=== PATIENT | female | born 1960 | race Caucasian/White ===

== ENCOUNTER 2017-08-17 13:00 | Outpatient (RCR) | payer MEDICARE, OTHER, SELFPAY ==
--- NOTE | 2017-05-12 16:48 | HP.PTEVAL_ITS ---
Patient's Visit Information GIUSEPPE XAVIER is a 56 year old F referred to Physical Therapy by Oswaldo Desir with a diagnosis of LEFT SHOULDER IMINGEMENT/LEFT SHOULDER PAIN. Date of Evaluation: 05/12/17 Physical Therapist: Jose J Maldonado PT, - Visit Plan Frequency: 2x /Week Duration: 4 Weeks Plan: postural ex's,RTC ex's ,MODALITIES - Subjective Subjective: This 56 y/o female presents physical therapy with impingement left shoulder for 2 months. Intially,DR tried predisone. Recommended PT and did x- rays. Location shoulder referres lateral deltoid. Described as sharp pain. Symptoms worse with above 90 degrees with ADL'S and housework tasks , lifting.Symptoms better with rest.Symptoms affect sleeping with pain at night.Pain affects pain ability with job demnads and housework tasks. Denies parathesia /tingling. 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 SOCIAL: - Pain Left Shoulder Pain Intensity (Out of 10): 8 Pain Intensity Range: 10 Comment: movement - Objective POSTURE: mild foward posture. NEURO: denies parathesia/tingling,neuro inact. PALAPTION: mild tender AC. AROM: flexion 120 flexion,abduction 105 degrees,ER 85 degrees,IR 70 degrres with pain all planes. MMT: RTC 4-/5 MILD PAIN , deltoid 4-/5 anterior ,lateral 3+/5 pain. SCAPULAR-HUMERAL: 1:1. CAPSULAR RESTRICTION:mild accessory - Special Tests L Shoulder External Rotation Lag Test - RC Tear: Negative L Shoulder Supine Impingement Test - RC Tear: Negative L Shoulder Lift Off Test - Subscapular Tear: Negative L Shoulder Drop Sign - IS Test: Negative L Shoulder Empty Can - SS: Positive L Shoulder Neer - Impingement: Positive L Shoulder Carbajal Huan - Impingement: Positive L Shoulder Shrug Sign - OA/Adhesive Capsulitis: Negative - Goals Goal 1:: Independant with HEP Goal Time Frame: 2-4 Weeks Goal 2:: Decrease shoulder pain by 50% or greater to improve function with ADL'S Goal Time Frame: 2-4 Weeks Goal 3:: Improve ROM shoulder WFL left compared to right for ADL'S above 90 degrees and housework tasks Goal Time Frame: 2-4 Weeks Goal 4:: Patient increase strength of RTC and deltoid 4/5 to improve function and ADL'S Goal Time Frame: 2-4 Weeks Goal 5:: Patient improve ablity to perform ADL'S and housework tasks with min limitations Goal Time Frame: 2-4 Weeks - Rehabilitation Potential Physical Therapy Diagnosis: This 56 y/o female presents to physical therapy with impigement left shoulder. with pain weakness ,impairs function and ADL'S above 90 degrees Rehabilitation Potential: Good - Anticipated Interventions Patient/Client Instruction: Educate patient on: Condition, Plan of Care For the Purpose of:: To decrease pain, To increase ROM, To improve muscle performance and motor function, To improve ability to perform ADL's, To increase tolerance to activity/condition/position, To improve ability of physical actions for home/community/work/leisure, To improve health of tissue, To decrease soft tissue restriction, To prevent re-injury, To improve ability to perform tasks related to life management Therapeutic Exercise to Include: Strength training, Postural training, Scapular Strength/Stabilization Comment: RTC For the Purpose of:: To decrease pain, To increase ROM, To improve muscle performance and motor function, To increase tolerance to activity/condition/ position, To improve ability of physical actions for home/community/work/leisure , To improve health of tissue, To decrease soft tissue restriction, To increase flexibility/ROM, To improve health and function, To prevent re-injury, To improve ability to perform tasks related to life management IF ES: Yes Cryotherapy (ice pack, ice massage): Yes Thermo therapy (hot pack): Yes Ultrasound (thermal/non thermal): Yes For the Purpose of:: To decrease pain, To improve nutrient delivery to tissue, To increase oxygenation perfusion, To improve health of tissue, To decrease soft tissue restriction Thank you for the opportunity to evaluate your patient. For Medicare and Medicare HMO plans, please review the plan of care and approve it. It will need to be FAXED BACK to us at [phone] for Medicare purposes. Please let me know if there are questions or concerns regarding this plan of care. Physician Signature: Date:
--- NOTE | 2017-06-03 08:15 | HP.PTEVAL2 ---
Patient's Visit Information GIUSEPPE XAVIER is a 56 year old F referred to Physical Therapy by Oswaldo Desir with a diagnosis of OA left knee,pes anserine bursitus. Date of Evaluation: 06/03/17 Physical Therapist: Jose J Maldonado PT, - Visit Plan Frequency: 2x /Week Duration: 4 Weeks Plan: PRE 'S QUADS/HAMS/HIP,ROM NUSTEP,MODALITIES PRN - Subjective Subjective: This 56 y/o female presents to physical therapy with left knee pain. Patient has had left knee pain more than 2 years but progesssively worse past several months. Pain located medial -lateral knee described ache. Symptoms worse walking ,squatting,kneeling,standing. Symptoms affect ability ADL'S and housework tasks. Denies parathesia/tingling. Sleeping okay at night. Patient has [facility] with [facility] failure. SOCAIL: . VOCATION: [employer] - Pain Left Knee Intensity: 5 Pain Intensity Range: 10 Right Knee Intensity: 5 Pain Intensity Range: 10 - Objective Objective: POSTURE:mild knee valgus. NEURO: inact. PALAPTION: medial/lateral joint line tenderness. GAIT: ambulates with decrease stance time with waddle gait reciprocal pattern. MMT: quads/hams/hip flexion 4-/5,abd 3+/5 ankle 4-/5. AROM: 5-130 degrees supine knee flexion. FLEXBLITY: hams min tight - Special Tests David - Meniscus: Positive Apley - Meniscus: Negative Dustin - ACL: Negative Anterior Drawer - ACL: Negative Posterior Drawer - PCL: Negative Posterior Sag - PCL: Negative Valgus - MCL: Negative Varus - LCL: Negative Patellar Apprehension - PFS: Positive Patellar Grind - PFS: Positive - Goals Goal 1:: Independant with HEP Goal Time Frame: 2-4 Weeks Goal 2:: Improve gait 75% with improve mary and stance time. Goal Time Frame: 2-4 Weeks Goal 3:: Increase strength BLE quads/hams/hip 3+/5 to improve function with walking and standing Goal Time Frame: 2-4 Weeks Goal 4:: Patient improve ablity to walk ,stand for ADL'S and housework tasks with min limiations Goal Time Frame: 2-4 Weeks Goal 5:: Ascend/descend 12 steps with alternating stairs Goal Time Frame: 2-4 Weeks - Rehabilitation Potential Physical Therapy Diagnosis: This patient has left knee pain with weakness thus impairs ADL's and housework tasks with walking and standing ,stairs thus benifit from skilled PT Rehabilitation Potential: Good - Anticipated Interventions Patient/Client Instruction: Educate patient on: Condition, Plan of Care For the Purpose of:: To decrease pain, To increase ROM, To improve muscle performance and motor function, To improve ability to perform ADL's, To increase tolerance to activity/condition/position, To improve ability of physical actions for home/community/work/leisure, To improve health of tissue, To decrease soft tissue restriction, To increase flexibility/ROM, To improve ability to perform tasks related to life management Therapeutic Exercise to Include: Strength training, Postural training, Flexibilty training, Active ROM For the Purpose of:: To decrease pain, To increase ROM, To improve muscle performance and motor function, To improve ability to perform ADL's, To improve performance and independence with ADL's, To improve ability of physical actions for home/community/work/leisure, To improve gait and locomotor functions, To improve health of tissue, To decrease soft tissue restriction, To increase flexibility/ROM TENS: Yes Cryotherapy (ice pack, ice massage): Yes Thermo therapy (hot pack): Yes Ultrasound (thermal/non thermal): Yes For the Purpose of:: To decrease pain, To improve nutrient delivery to tissue, To increase oxygenation perfusion, To improve health of tissue, To decrease soft tissue restriction Thank you for the opportunity to evaluate your patient. For Medicare and Medicare HMO plans, please review the plan of care and approve it. It will need to be FAXED BACK to us at [phone] for Medicare purposes. Please let me know if there are questions or concerns regarding this plan of care. Physician Signature: Date:
--- NOTE | 2017-06-03 08:31 | HP.PTDCSUM ---
HP - PT D/C Summary It has been my pleasure to treat GIUSEPPE XAVIER under orders from Oswaldo Desir, for the diagnosis of LEFT SHOULDER IMINGEMENT/LEFT SHOULDER PAIN for a total of 3 visit(s). Discharge Date: 06/03/17 Please see the following information for a summary of their discharge status. - Subjective Subjective: Doing good with left shoulder ..maybe some overhead activaities - Pain Left Shoulder Pain Intensity (Out of 10): 0 - Overall Improvement % Improvement: 90 - Objective Objective/Function: AROM : shoulder flexion/abd 140 degrees ,ER 90 ,IR 80 degrees. MMT: RTC4/5,DELTOID 4-/5 - Goals Goal 1:: Independant with HEP Goal Progress: Goal Met Goal 2:: Decrease shoulder pain by 50% or greater to improve function with ADL'S Goal Progress: Goal Met Goal 3:: Improve ROM shoulder WFL left compared to right for ADL'S above 90 degrees and housework tasks Goal Progress: Goal Met Goal 4:: Patient increase strength of RTC and deltoid 4/5 to improve function and ADL'S Goal Progress: Goal Met Goal 5:: Patient improve ablity to perform ADL'S and housework tasks with min limitations Goal Progress: Goal Met - Plan Plan: D/C TO HEP - D/C Information Discharge Comments: HEP If there are questions or concerns regarding this patient's physical therapy, please feel free to call me at [phone]. Thank you for the referral of this patient. Sincerely, Jose J Maldonado, PT,
--- NOTE | 2017-07-01 12:26 | HP.PTRE(2)_ITS ---
Oswaldo Desir, It has been my pleasure to treat GIUSEPPE XAVIER over the last 7 visits for OA left knee,pes anserine bursitus. Please see the progress note below for an update on the physical therapy plan of care! Subjective: Getting stronger ,has been c/o kenneth pain right than left. Difficulty with stairs and squatting Objective/Function/Assessment: POSTURE:MILD FOWARD POSTURE,HIPS/KNEES FLEXED. GAIT: AMBULATES WITH HIPS/KNEES FLEXED. AROM: 0-130 knee flexion bilateeral. MMT: quads 4-/5,VMO 4-/5,HAMS 4/5,hip flexion 4-/5,hip abd 3+/5. STAIRS: ascend /descend 12steps one step at a time Plan Plan: cont with poc 2x/week for 3weeks Goals - Goals Goal 1:: Independant with HEP Goal Time Frame: 2-4 Weeks Goal Progress: Progressing Goal 2:: Improve gait 75% with improve mary and stance time. Goal Time Frame: 2-4 Weeks Goal Progress: Progressing Goal 3:: Increase strength BLE quads/hams/hip 4-/5 to improve function with walking and standing Goal Time Frame: 2-4 Weeks Goal Progress: prior goal met Goal 4:: Patient improve ablity to walk ,stand for ADL'S and housework tasks with min limiations Goal Time Frame: 2-4 Weeks Goal Progress: Progressing Goal 5:: Ascend/descend 12 steps with alternating stairs Goal Time Frame: 2-4 Weeks Goal Progress: Progressing Anticipated Interventions Patient/Client Instruction: Educate patient on: Condition, Plan of Care For the Purpose of:: To decrease pain, To increase ROM, To improve muscle performance and motor function, To improve ability to perform ADL's, To increase tolerance to activity/condition/position, To improve ability of physical actions for home/community/work/leisure, To improve health of tissue, To decrease soft tissue restriction, To increase flexibility/ROM, To improve ability to perform tasks related to life management Therapeutic Exercise to Include: Strength training, Postural training, Flexibilty training, Active ROM For the Purpose of:: To decrease pain, To increase ROM, To improve muscle performance and motor function, To improve ability to perform ADL's, To improve performance and independence with ADL's, To improve ability of physical actions for home/community/work/leisure, To improve gait and locomotor functions, To improve health of tissue, To decrease soft tissue restriction, To increase flexibility/ROM TENS: Yes Cryotherapy (ice pack, ice massage): Yes Thermo therapy (hot pack): Yes Ultrasound (thermal/non thermal): Yes For the Purpose of:: To decrease pain, To improve nutrient delivery to tissue, To increase oxygenation perfusion, To improve health of tissue, To decrease soft tissue restriction Please do not hesitate to contact me at [phone] by phone or Fax: if you have questions or concerns regarding this new plan of care! Sincerely, Jose J Maldonado, PT,
--- NOTE | 2017-08-17 13:27 | HP.PTDS(2)_ITS ---
HP - PT D/C Summary (2) It has been my pleasure to treat GIUSEPPE XAVIER under orders from Oswaldo Desir, for the diagnosis of OA left knee,pes anserine bursitus for a total of 5 visit (s). Discharge Date: 08/17/17 Please see the following information for a summary of their discharge status. - Subjective Subjective: Doing good ..no pain. Back to gualberto ADL'S - Overall Improvement % Improvement: 90 - Objective Objective/Function/Assessment: GAIT: reciprocal pattern ,mild hips/knee flexed. EDEMA: mild in legs from dialysis. AROM : 0-130 DEGREES supine knee flexion. MMT: quads/hams 4/5,hip 4-/5. STAIRS: alternating - Goals Patient Goals: Improve Mobility, Improve Function, Alleviate Pain, Walk Normal, Improve ROM, Sleep Normal Goal 1:: Independant with HEP Goal Progress: Goal Met Goal 2:: Improve gait 75% with improve mary and stance time. Goal Progress: Goal Met Goal 3:: Increase strength BLE quads/hams/hip 4-/5 to improve function with walking and standing Goal Progress: Goal Met Goal 4:: Patient improve ablity to walk ,stand for ADL'S and housework tasks with min limiations Goal Progress: Goal Met Goal 5:: Ascend/descend 12 steps with alternating stairs Goal Progress: Goal Met - Plan Plan: d/c to HEP - D/C Information Discharge Comments: HEP If there are questions or concerns regarding this patient's physical therapy, please feel free to call me at [phone]. Thank you for the referral of this patient. Sincerely, Jose J Maldonado, PT,
--- NOTE | 2017-08-19 16:37 | HP.PTDCS(2) ---
HP - PT D/C Summary (2) It has been my pleasure to treat GIUSEPPE XAVIER under orders from Oswaldo Desir, for the diagnosis of OA left knee,pes anserine bursitus for a total of 15 visit(s). Discharge Date: 08/17/17 Please see the following information for a summary of their discharge status. - Subjective Subjective: Doing good ..no pain. Back to normal ADL'S - Overall Improvement % Improvement: 90 - Objective Objective/Function/Assessment: GAIT: reciprocal pattern ,mild hips/knee flexed. EDEMA: mild in legs from dialysis. AROM : 0-130 DEGREES supine knee flexion. MMT: quads/hams 4/5,hip 4-/5. STAIRS: alternating - Goals Patient Goals: Improve Mobility, Improve Function, Alleviate Pain, Walk Normal, Improve ROM, Sleep Normal Goal 1:: Independant with HEP Goal Progress: Goal Met Goal 2:: Improve gait 75% with improve mary and stance time. Goal Progress: Goal Met Goal 3:: Increase strength BLE quads/hams/hip 4-/5 to improve function with walking and standing Goal Progress: Goal Met Goal 4:: Patient improve ablity to walk ,stand for ADL'S and housework tasks with min limiations Goal Progress: Goal Met Goal 5:: Ascend/descend 12 steps with alternating stairs Goal Progress: Goal Met - Plan Plan: d/c to HEP - D/C Information Discharge Comments: HEP If there are questions or concerns regarding this patient's physical therapy, please feel free to call me at [phone]. Thank you for the referral of this patient. Sincerely, Jose J Maldonado, PT,
== END 2017-08-17 19:00 | disposition home or self-care (01) ==
LOC: PT 13:00
PROVIDERS: Family Provider Family Medicine; PCP Family Medicine; Visit Provider Family Medicine
DX: M75.42 Impingement syndrome of left shoulder (principal); M25.512 Pain in left shoulder
CPT/HCPCS: 97014; 97035; 97110; 97162; 97530; G0283; G8985; G8986

== ENCOUNTER → 2017-10-10 15:24 | Outpatient (CLI) | payer MEDICARE, BC, SELFPAY ==
--- NOTE | 2017-10-10 15:28 | VDUE_ITS ---
Reason For Study: Swelling Rt Hand Right Proximal Left Proximal Right jugular vein is spontaneous, widely Left jugular vein is spontaneous, widely patent, phasic, with no intraluminal patent, phasic, with no intraluminal echogenicity noted. echogenicity noted. Right subclavian vein is spontaneous, widely patent, phasic, with no intraluminal echogenicity noted. Right Lower Arm Right radial vein is compressible. Right ulnar vein is compressible. Right Arm Right axillary vein is spontaneous, patent, phasic, competent, compressible and demonstrates augmentation. Right brachial vein is compressible. Rt CephV below the elbow is dilated and non compressible consistent with acute SVT; compressible above elbow. Right basilic vein is compressible. < Interpretation Summary There is no evidence of right upper extremity deep vein thrombosis. Superficial thrombophlebitis right forearm cephalic vein. Normal flow patterns right basilic vein. Normal flow patterns left internal jugular vein. Ordering Physician: Oswaldo Desir Referring Physician: Oswaldo Desir Performed By: Whit Braxton, SEBAS, RVT
== END ==
PROVIDERS: Family Provider Family Medicine; PCP Family Medicine; Visit Provider Family Medicine
DX: M79.89 Other specified soft tissue disorders (principal)
CPT/HCPCS: 93971

== ENCOUNTER 2018-01-17 21:24 | Observation (INO) | payer MEDICARE, BC, SELFPAY ==
[2018-01-17 21:35] VITALS: BP 104/96; PULSE 79; RESP 16; TEMP 36.8; O2SAT 97
[2018-01-17 21:36] VITALS: PULSE 78
--- NOTE | 2018-01-17 21:46 | PCM.HP.STD ---
Problem List (1) Light-headedness Status: Acute (2) Polycystic kidney disease Status: Acute (3) End stage renal failure on dialysis Status: Acute (4) Hypotension Status: Acute History of Present Illness Date of Admission: 01/17/18 Chief Complaint: Lightheadedness ?one and a half weeks. The patient is a 57 year old F with a significant history of polycystic kidney disease status post bilateral nephrectomy on dialysis (Tuesday, Tuesday and Tuesday) who presents with progressively worsening lightheadedness of one and a half weeks duration. Associated with her symptoms is shakiness. Patient went to emergency department at [facility] and was transferred here. Notably, her systolic blood pressure was in the 70s and 80s; and a diastolic blood pressure was in the 40s. Her blood pressure improved with a normal saline bolus while at emergency department. She reported improvement in her lightheadedness after she has received fluids. Notably patient has a strong family history of polycystic kidney disease. Her father from aneurysm which she attributes to polycystic kidney disease. Her brother also have polycystic kidney disease. She has some cysts on her liver that she attributes to her polycystic kidney disease. She used to have high blood pressure but upon starting dialysis she developed low blood pressure. However she reports that her blood pressure today is lower than her baseline. She is on a kidney transplant list. Past Medical History Allergies Penicillins Allergy (Verified 09/01/16 07:43) Rash codeine Adverse Reaction (Verified 09/01/16 07:43) Nausea Home Medications: Ambulatory Orders Medication Instructions Recorded Allopurinol [Zyloprim] 100 mg PO MOWEFR 09/01/16 Ergocalciferol [Vitamin D] 50,000 unit PO QMONTH 09/01/16 Folic Acid/Vit Bcomp,C [Renal 0.8 mg PO DAILY 09/01/16 Vitamin Tablet] Ondansetron HCl [Zofran] 4 mg PO PRN PRN 09/01/16 Oxycodone [Oxyir] 5 - 10 mg PO Q4H PRN PRN 09/01/16 Calcium Acetate mg PO 01/17/18 Surgical History: hysterectomy, - - Bilateral nephrectomy secondary to polycystic kidney disease Psychiatric History: No pertinent psych hx Lives: With Family Smoking Status: Never smoker Tobacco Use: Non-smoker Alcohol: None Review of Systems Constitutional: Denies: Chills, Fever, Weight Change HEENT: Denies: Head Aches, Sinus Congestion, Sinus Drainage Cardiovascular: Reports: Light Headedness. Denies: Chest Pain, Palpitations Respiratory: Denies: Cough, Shortness of breath at rest, Sputum production Gastrointestinal: Reports: Nausea - Resolved at this time Genitourinary: Reports: - - Anuria Musculoskeletal: Denies: Joint Pain, Joint Tenderness Skin: Denies: Rash, Wounds Neurological: Denies: Numbness, Tingling, Focal weakness Psychiatric: Denies: Anxiety, Depression, Homicidal Ideations, Suicidal Ideations Hematologic/ Lymphatic: Denies: Easy Bruising, Easy Bleeding VTE Information - Inpt Only VTE Present on Admission: No VTE Mechan Device Prophylaxis: None VTE Pharm Prophylaxis ordered?: Yes Patient Problems: Active and Suspected Problems Light-headedness (Acute) Polycystic kidney disease (Acute) End stage renal failure on dialysis (Acute) Hypotension (Acute) - Physical Exam General: Alert, Oriented x3, Cooperative HEENT: Atraumatic, PERRLA, EOMI, Normocephalic Neck: Supple, No JVD, Negative Carotid Bruits Lungs: Clear to auscultation, Normal air movement Cardiovascular: Regular rate, No murmurs Abdomen: Bowel Sounds Present, Soft, Non Tender Extremities: - - Dialysis shunt in left antecubital areabruit and thrill present. Skin: No rashes, No breakdown Musculoskeletal: No Tenderness to Palpation of Joints or Extremities Lymphatic: No Cervical, Supraclavicular, or Inguinal Adenopathy Neurological: Cranial nerves II-XII grossly intact Psych/Mental Status: Normal Affect, Appropriate Assessment/Plan All Active Problems Light-headedness (Acute) Polycystic kidney disease (Acute) End stage renal failure on dialysis (Acute) Hypotension (Acute) The patient is a 57 year old F with a significant history of polycystic kidney disease status post bilateral nephrectomy on dialysis (Tuesday and Tuesday) who presents with progressively worsening lightheadedness and hypotension Lightheadedness and hypotension This may be due to excessive fluid taken off on dialysis Received normal saline bolus at outside hospital ED Gentle hydration with normal saline at 75 ML's per hour Orthostatic vitals now and in a.m. PT and OT to work with patient. Polycystic kidney disease with end-stage renal disease Renal diet Nephrocaps continued PhosLo continued. Her to verify dose. Nephrology consult for management of end-stage renal disease DVT prophylaxis Subcutaneous heparin Code Visit OBSV E&M: 47920 Initial observation care L3
[2018-01-17 21:50] VITALS: BMI 32.0
[2018-01-17 22:03] VITALS: BMI 32.0
[2018-01-17 22:15] VITALS: BP 102/60; BP 107/66; BP 108/68; PULSE 69; PULSE 70; PULSE 77
[2018-01-17] MEDS: Heparin Injection (Vial) 5,000 UNIT/ML VIAL 5000 UNIT SC (23:09)
[2018-01-17] MEDS: 0.9% NaCl Peripheral Flush Adult/Peds IV (23:09)
[2018-01-17] MEDS: 0.9% Normal Saline 1,000 ML 75 ML IV (23:10)
[2018-01-17 23:21] VITALS: PULSE 63
[2018-01-18] VITALS (9 sets, daily range): BP systolic 90–113; BP diastolic 56–67; PULSE 59–78; RESP 16–18; TEMP 36.4–36.6; O2SAT 97–100
[2018-01-18] MEDS: Heparin Injection (Vial) 5,000 UNIT/ML VIAL 5000 UNIT SC (06:43)
[2018-01-18] MEDS: Allopurinol 100 MG Tablet PO (08:45)
[2018-01-18] MEDS: Calcium Acetate 667 MG Capsule 1334 MG PO ×2 (10:00→11:57)
[2018-01-18] MEDS: Folic Acid/Vitamin B Comp W-C 1 Capsule 1 CAP PO (10:01)
--- NOTE | 2018-01-18 11:25 | PCM.CONS.R ---
Problem List (1) End stage renal failure on dialysis Status: Chronic Consultation - Renal PCP/ Referring MD: Requesting physician: [] Primary care physician: Oswaldo Desir - History of Present Illness History of Present Illness: The patient is a 57 year old F PMH of ESRD on MWF ( Patient goes to [facility] for HD. Dr. Lau is the gas transfer operator). 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 Patient presented to ED at [facility] for feeling dizzy and weak that started yesterday. In ED,BP was low at 70/40. Patient received 750 cc IV NS at the ED. BP improved to 90/50 and patient was sent to [facility] for observation. Patient was kept on IVF here in the hospital at 75 cc/hour. Patient said she is feeling better but also feels congested in the sinuses area and in her chest. She feels that her arms and legs are puffy ROS: 12 system review is negative except for what mentioned in HPI[] - Allergies Allergies: Allergies Penicillins Allergy (Verified 09/01/16 07:43) Rash codeine Adverse Reaction (Verified 09/01/16 07:43) Nausea - Current Medications Current Medications: Current Medications Allopurinol (Zyloprim) 100 mg PO MoWeFr@0800 [facility] Last Admin: 01/18/18 08:45 Dose: 100 mg Bisacodyl (Dulcolax) 5 mg PO DAILY PRN PRN PRN Reason: Constipation Calcium Acetate (Phoslo Gel Cap) 1,334 mg PO TIDCM [facility] Last Admin: 01/18/18 10:00 Dose: 1,334 mg Heparin Sodium (Porcine) (Heparin Na) 5,000 unit SC Q8 [facility] Last Admin: 01/18/18 06:43 Dose: 5,000 unit Magnesium Hydroxide (Milk Of Magnesia) 30 ml PO DAILY PRN PRN Reason: Constipation Multivit/Ca Carb/B Cmplx/FA/Prenat (Nephrocaps, Renaphro) 1 capsule PO DAILY [facility] Last Admin: 01/18/18 10:01 Dose: 1 capsule Ondansetron HCl (Zofran Odt) 4 mg PO Q4H PRN PRN PRN Reason: NAUSEA Oxycodone HCl (Oxyir) 5 - 10 mg PO Q4H PRN PRN PRN Reason: PAIN Sodium Chloride () 5 - 30 ml IV UD PRN PRN Reason: SALINE FLUSH Last Admin: 01/17/18 23:09 Dose: 10 ml - Past Medical History Past Medical History (Chronic Problems): Chronic Problems End stage renal failure on dialysis (Chronic) - Past Surgical History Surgical History: hysterectomy, - - Bilateral nephrectomy secondary to polycystic kidney disease - Social History Smoking Status: Never smoker Alcohol: None Patient Problems: Active and Suspected Problems Light-headedness (Acute) Polycystic kidney disease (Acute) Hypotension (Acute) - Physical Exam General: Alert, Oriented x3 HEENT: Atraumatic Oral: Moist Mucosa Neck: Supple, No JVD, Negative Carotid Bruits Lungs: Clear to auscultation, Normal air movement, No rhonchi Cardiovascular: Regular rate, Regular Rhythm, Normal S1, Normal S2 Abdomen: Bowel Sounds Present, Soft, Non Tender Extremities: No clubbing, No cyanosis, No edema Musculoskeletal: No Tenderness to Palpation of Joints or Extremities Lymphatic: No Cervical, Supraclavicular, or Inguinal Adenopathy Neurological: Cranial nerves II-XII grossly intact, Neuro grossly intact Psych/Mental Status: Normal Affect Vital Signs Temp Pulse Resp BP Pulse Ox 97.8 F 70 16 113/63 100 01/18/18 08:55 01/18/18 11:02 01/18/18 08:55 01/18/18 08:55 01/18/18 08:55 Oxygen Delivery Method Room Air Weight: 74.4 kg Body Mass Index (BMI) 32.0 Orthostatic Vital Signs Start: 01/17/18 21:51 Freq: 0600 Status: Active Protocol: Activity Type Activity Date Activity User E-Sign Co-Sign Detail Recorded Client Recorded Date Recorded By Document 01/18/18 06:38 CAD [id number] 01/18/18 06:42 CAD 01/18/18 06:38 Orthostatic Vitals Standing -Blood Pressure (90/60-120/80) 111/62 -Extremity Use Right Arm -Pulse Rate (60-100) 72 Sitting -Blood Pressure (90/60-120/80) 101/63 -Extremity Use Right Arm -Pulse Rate (60-100) 65 Lying -Blood Pressure (90/60-120/80) 90/56 L -Extremity Use Right Arm -Pulse Rate (60-100) 65 Intake and Output for Last 24 Hours 01/16/18 01/17/18 01/18/18 23:59 23:59 23:59 Intake Total 802 / 802 Balance 802 / 802 Assessment/Plan All Active Problems Light-headedness (Acute) Polycystic kidney disease (Acute) Hypotension (Acute) 1- ESRD on MWF Will arrange for HD today for 3 hours, 1K for 1st hout and then 2 K. UF 1L d/c IVF 2- Hypotension. Patient has borderline hypotension but worsened yesterday. BP improved with IVF Will check Echocardiogram. Monitor BP as HD today with 1 L UF. 3- BMD: continue phoslo with the same dose at home Renal team will continue to follow D/W Dr. Marylu KHAN MD
[2018-01-18] MEDS: Heparin 10,000 UNITS/10 ML Vial 2500 UNITS IV (12:15)
[2018-01-18 12:38] LABS: Hematocrit 32.5 % (37-47); Hemoglobin 10.3 g/dl (12.0-15.0); Mean Corp Hgb Conc 31.7 g/gl (32-36); Mean Corpuscular Hgb 31.8 pg (27.0-32.0); Mean Corpuscular Volume 100.3 fL (81-99); Mean Platelet Vol. 9.6 fl (6.2-12.0); Platelet Count 219 K/mm3 (150-450); RBC Distribution Width CV 16.6 % (11.6-14.6); RBC Distribution Width SD 60.3 fl (35.1-43.9); Red Blood Count 3.24 M/mm3 (4.2-5.4); White Blood Count 6.3 K/mm3 (4.4-11.0)
[2018-01-18 12:43] LABS: Scan Indicated on CBC? Y/N NO
[2018-01-18 13:12] LABS: Anion Gap 13 (5-15); BUN 47 mg/dL (7-18); BUN/Creat Ratio 4.4 RATIO (10-20); Calcium,Total 7.6 mg/dL (8.5-10.1); Chloride 103 mmol/L (98-107); EST Glomerular Filtration Rate 4 mL/min (>60); Est Glom Filt Rate - Afr Amer 5 mL/min (>60); Estimated Creatinine Clearance 4.27 ml/min; Glucose 101 mg/dL (74-106); Potassium 5.1 mmol/L (3.5-5.1); Sodium Level 141 mmol/L (136-145)
--- NOTE | 2018-01-18 13:34 | PCM.DC ---
- Discharge Diagnoses Current Active Problems: Current Active and Chronic Problems Light-headedness, Dizziness secondary to Hypotension, Orthostasis possible secondary to Hemodialysis Hypotension, secondary to suspected Hemodialysis ESRD on HD secondary to Polycystic kidney disease Gout Obesity You will use the following diet at home:: Renal (restricted protein/sodium) Your food should be the consistency of: Regular Your liquids should be the consistency of: Regular/Thin Discharge Activity: - - Avoid aggressive activity until re-evaluation per your Sewer System Supervisor and Primary Care Physician. Maintain appropriate oral hydration. May resume sexual activity in: No Restrictions Weight Bearing Status: Weight bearing as tolerated Call your doctor if you observe: Fever of 101 or Higher, Inability to urinate, Inability to have a bowel movement, Shortness of breath, Dizziness, Fainting spells, Uncontrolled pain Instructions: ED Hypotension Orthostatic Additional Instructions: Please maintain appropriate hydration. Following dialysis assure you change positions, i.e. sitting to standing slowly and stop if you feel dizzy or lightheaded. During the admission you were slowly hydrated, maintained on telemetry without events, normal heart ultrasound and unremarkable cardiac enzymes. Allergies/Adverse Reactions: Allergies Penicillins Allergy (Verified 09/01/16 07:43) Rash codeine Adverse Reaction (Verified 09/01/16 07:43) Nausea Medications to take at Discharge Allopurinol [Zyloprim] 100 mg PO MOWEFR 09/01/16 Ergocalciferol [Vitamin D] 50,000 unit PO QMONTH 09/01/16 Folic Acid/Vit Bcomp,C [Renal Vitamin Tablet] 0.8 mg PO DAILY 09/01/16 Ondansetron HCl [Zofran] 4 mg PO PRN PRN 09/01/16 Oxycodone [Oxyir] 5 - 10 mg PO Q4H PRN PRN 09/01/16 Calcium Acetate mg PO 01/17/18 Primary Care Physician: Oswaldo Desir MD [Primary Care Provider] - Please follow up with your Primary Care Physician in: Follow-up within 3-5 days to review admission. Test Results: Test results from this visit will be discussed in further detail at your follow-up appointment, if applicable. Please Follow Up With: Arielle Sy MD When: Follow-up for routine HD on Tuesday with re-evaluation per Sewer System Supervisor. Proposed Discharge Date: 01/18/18
--- NOTE | 2018-01-18 13:40 | PCM.DC.SUM ---
Discharge Date and Diagnosis - Problem List Patient Problems: Active and Suspected Problems Light-headedness (Acute) Polycystic kidney disease (Acute) Hypotension (Acute) Date of Admission: 01/17/18 Date of Discharge: 01/18/18 - Primary Discharge Diagnosis Active and Suspected Problems Light-headedness, Dizziness secondary to Hypotension, Orthostasis possible secondary to Hemodialysis Hypotension, secondary to suspected Hemodialysis ESRD on HD secondary to Polycystic kidney disease Gout Obesity - Secondary Discharge Diagnosis Chronic Problems End stage renal failure on dialysis (Chronic) Hospital Course and Treatment Imaging Results: 01/18/18 11:03 Echo Complete [ECHO] Routine Nephrology Dr. Sy Operations: None Procedures: Dialysis Summary of Care Provided: The patient is a 57 y/o F w/ PMHx: ESRD on HD secondary to Polycystic kidney disease s/p BL nephrectomy, Gout, Obesity, AOCD who presented to the [facility] ED on 01/17/18 with history of vacation this past week with dialysis arranged out of town and onset over the last several days of light-headedness, dizziness worsened after dialysis and with position changes. In the ED orthstatic notable, thus patient admitted, maintained on telemetry, cardiac enzyme unremarkable, ECHO obtained to be cautious and unremarkable appearing with normal function and normal appearing valves, thus presentation felt secondary to hypotension, orthostasis with Nephrology consultation and reduction of HD parameters. Patient cleared for discharge to home per Nephrology following HD. Patient denied any recurrent lightheadedness or dizziness since admission and noted improvement. DAY OF DISCHARGE PROGRESS NOTE: Subjective: Patient without acute event overnight per self and nursing report. Patient denies fever, chills, nausea, emesis, abdominal pain, chest pain or dyspnea. Denies any further lightheadedness or dizziness. Patient agreeable to discharge to home given echocardiogram unremarkable, no telemetry events, cardiac enzymes normal, nephrology evaluation with decision for reduction in HD parameters with improved symptoms. Patient will be discharged with follow-up with primary care physician within 3-5 days in addition to plant physiologist at HD on Tuesday. Objective: T 97.8, heart rate 64, BP 113/63, respiratory rate 16, and a percent room air. Physical Examination: General: awake, alert, oriented x 3 and cooperative, seated upright in the bed, NAD. Skin: normal color, turgor, no icterus, cyanosis. HEENT: AT/NC, EOMI, PERRLA, MMM. Lungs: CTA bilaterally, moderate effort, mild decrease BL bases, no rales, ronchi or wheezing; Heart: Regular rate and rhythm; no gallop, rub audible. Abdomen: soft, obese, NTTP, ND, normal BS. Extremities: no cyanosis, clubbing, LUE fistula w/ +thrill, HD ongoing. Neurological: patient awake, alert, oriented x 3; cognitive function appears intact upon questioning,; pupils equally reactive to light and accomodation; cranial nerves II-XII grossly normal, moving all 4 extremities, strength mildly globally decreased, HD ongoing currently.l Psychiatric: affect appears normal, no acute evidence of depressive or anxiety feelings. Assessment and Plan: Please see hospital summary above. Discharge Activity: - - Avoid aggressive activity until re-evaluation per your Smoking Tobacco Packer Hand and Primary Care Physician. Maintain appropriate oral hydration. May resume sexual activity in: No Restrictions Weight Bearing Status: Weight bearing as tolerated Call your doctor if you observe: Fever of 101 or Higher, Inability to urinate, Inability to have a bowel movement, Shortness of breath, Dizziness, Fainting spells, Uncontrolled pain Home Medications: Medications to take at Discharge Allopurinol [Zyloprim] 100 mg PO MOWEFR 09/01/16 Ergocalciferol [Vitamin D] 50,000 unit PO QMONTH 09/01/16 Folic Acid/Vit Bcomp,C [Renal Vitamin Tablet] 0.8 mg PO DAILY 09/01/16 Ondansetron HCl [Zofran] 4 mg PO PRN PRN 09/01/16 Oxycodone [Oxyir] 5 - 10 mg PO Q4H PRN PRN 09/01/16 Calcium Acetate mg PO 01/17/18 Primary Care Physician: Oswaldo Desir MD [Primary Care Provider] - Please follow up with your Primary Care Physician in: Follow-up within 3-5 days to review admission. Please Follow Up With: Arielle Sy MD When: Follow-up for routine HD on Tuesday with re-evaluation per Smoking Tobacco Packer Hand. Patient Instructions: ED Hypotension Orthostatic Disposition: Home Minutes spent on discharge:: 20 Patient Condition:: Fair Medical Necessity - Tobacco Use Smoking Status: Never smoker Tobacco Use: Non-smoker Meaningful Use Info Meaningful Use Diagnoses (Choose all that apply): None applicable Code Visit OBSV E&M: 12321 Observation care discharge
--- NOTE | 2018-01-18 16:00 | DIALYSIS ---
Hemodialysis completed as ordered. -1200ml off. tolerated well. stable t/o. Hemostasis obtained. dressing applied. report to fidel
== END 2018-01-18 13:37 | disposition home or self-care (01) ==
PROVIDERS: Hospitalist; Admitting Provider Internal Medicine; Family Provider Family Medicine; PCP Family Medicine; Visit Provider Family Medicine
DX: I95.3 Hypotension of hemodialysis (principal); N18.6 End stage renal disease; Z99.2 Dependence on renal dialysis; Q61.3 Polycystic kidney, unspecified; M10.9 Gout, unspecified; Z90.5 Acquired absence of kidney; E66.9 Obesity, unspecified; Z68.32 Body mass index [BMI] 32.0-32.9, adult; Z71.3 Dietary counseling and surveillance; I49.9 Cardiac arrhythmia, unspecified; R53.1 Weakness; R42 Dizziness and giddiness; I95.9 Hypotension, unspecified
CPT/HCPCS: 80048; 84484; 85027; 90937; 93306; 96361; 96372; 96374; 97162; 99218; J7030; A4216; G0257; G0378; G0379

== ENCOUNTER 2018-08-03 12:25 | Inpatient (IN) | payer MEDICARE, OTHER, SELFPAY ==
[2018-08-03] VITALS (9 sets, daily range): BP systolic 114–146; BP diastolic 65–74; PULSE 68–91; RESP 13–18; TEMP 35.9–36.6; O2SAT 96–98; BMI 30.2; BMI 29.9
--- NOTE | 2018-08-03 12:43 | EKG12_ITS ---
Test Reason : WEAKNESS Blood Pressure : / mmHG Vent. Rate : 077 BPM Atrial Rate : 077 BPM P-R Int : 156 ms QRS Dur : 086 ms QT Int : 392 ms P-R-T Axes : 011 071 -16 degrees QTc Int : 443 ms Normal sinus rhythm Abnormal ECG Confirmed by LAMBERTO YING, DAHLIA ([id number]), editor in chief PO BOWMAN ([id number]) on 08/07/2018 2:03:09 PM Referred By: Lillian Valero Confirmed By:DAHLIA ORANTES MD
--- NOTE | 2018-08-03 12:52 | RAD_ITS ---
STUDY: X-RAY CHEST REASON FOR EXAM: Female, 57 years old. WEAKNESS, NUMBNESS AND TINGLING IN LEGS; DIALYSIS 1 DAY AGO TECHNIQUE: PA and lateral views of the chest. COMPARISON: January 22, 2016 FINDINGS: Right-sided dual lumen central line is been removed. The lungs are clear and expanded. There is no demonstrated pleural abnormality. Normal size heart. Normal mediastinum and laxmi. Normal visualized pulmonary arteries. There is atherosclerotic tortuosity of the aortic arch and descending thoracic aorta. Mild broad levoscoliosis of the thoracolumbar spine noted. This may be positional. Normal visualized ribs, clavicles, and shoulders. There is no demonstrated abnormality of the visualized soft tissue structures of the upper abdomen. Multiple surgical clips project in the upper abdomen. RAD/Chest PA and Lateral IMPRESSION: No acute intrathoracic process. Electronically Signed: Constance Taylor MD at 13:53 EST , Service support ,
[2018-08-03] MEDS: Ondansetron 4 MG/2 ML Vial IV (14:35)
[2018-08-03 14:48] LABS: Anion Gap 6 (5-15); BUN 45 mg/dL (7-18); BUN/Creat Ratio 5.5 RATIO (10-20); Calcium,Total 8.6 mg/dL (8.5-10.1); Chloride 99 mmol/L (98-107); Creatinine, Serum 8.13 mg/dL (0.55-1.02); EST Glomerular Filtration Rate 5 mL/min (>60); Est Glom Filt Rate - Afr Amer 7 mL/min (>60); Estimated Creatinine Clearance 5.62 ml/min; Glucose 84 mg/dL (74-106); Potassium 6.9 mmol/L (3.5-5.1); Sodium Level 136 mmol/L (136-145)
--- NOTE | 2018-08-03 14:49 | ED.RN ---
lab called critical of k of 6.9 and creatinine 8.13
[2018-08-03 15:01] LABS: Partial Thromboplast Time 31.7 Seconds (24.1-36.2); Prothrombin Time (Protime)PT. 13.3 SECONDS (11.7-14.9)
[2018-08-03 15:13] LABS: Absolute Lymphocyte Count 1.77 X10^3/ul (0.83-4.51); Absolute Neutrophil Count 8.8 X10^3/uL (2.0-7.7); Basophil# 0.08 X10^3/uL; Basophil% 0.7 % (0-1); Eosinophil# 0.14 X10^3/uL; Eosinophils% 1.2 % (0-5); Hematocrit 36.5 % (37-47); Hemoglobin 11.3 g/dl (12.0-15.0); Lymphocyte # 1.77 X10^3/ul (4.0); Lymphocyte % 15.5 % (19-41); Mean Corpuscular Volume 100.3 fL (81-99); Mean Platelet Vol. 9.5 fl (6.2-12.0); Monocyte# 0.66 X10^3/uL; Monocyte% 5.8 % (0-10); Neutrophil # 8.78 X10^3/uL (2.7-7.7); Neutrophil % 76.6 % (47-70); POSITIVE COUNT NO; POSITIVE DIFFERENTIAL NO; POSITIVE MORPHOLOGY NO; Platelet Count 356 K/mm3 (150-450); RBC Distribution Width CV 15.3 % (11.6-14.6); RBC Distribution Width SD 55.8 fl (35.1-43.9); Red Blood Count 3.64 M/mm3 (4.2-5.4); White Blood Count 11.5 K/mm3 (4.4-11.0)
--- NOTE | 2018-08-03 15:43 | ED.DCSUM_ITS ---
- ER Visit Summary Date of Service: 08/03/18 Chief Complaint: Numbness and tingling History of Present Illness: The patient is a 57 F who presents with numbness and tingling in her bilateral legs. The patient has a history of end-stage renal disease and is on hemodialysis Tuesday, Tuesday, and Tuesday. She is compliant with treatment. Yesterday she started to have some tingling in her legs and it became worse today. She also feels dizzy and weak and she has been very restless at night. She never had these symptoms before. She also reports a history of polycystic kidney disease and is a former smoker. Physical Examination: Afebrile and vital signs unremarkable. Patient is alert and oriented. Depressed mood and flat affect. Heart regular rate and rhythm. Lungs clear. Abdomen soft and nontender. Left upper extremity fistula noted with a bruit and thrill. Cranial nerves grossly intact. Normal strength and sensation except for paresthesias in her legs. Legs are nontender. Test Results: EKG showed sinus rhythm at a rate of 77. Hemoglobin 11. 3 and white count 11.5. Potassium 6.9, BUN 45, creatinine 8.13. Coags normal. Troponin normal. Chest x-ray unremarkable. Emergency Department Course and Treatment: Patient was monitored. She has paresthesias. No focal symptoms or findings to suggest stroke. No headache or neck pain. No fevers. Workup was unremarkable and reflected her chronic kidney disease except for a potassium of 6.9. She was treated with calcium, dextrose, and insulin. Hospitalist was contacted for inpatient care. Treatment Plan: As above Disposition: Admission Impression: 1. Paresthesias 2. Hyperkalemia This note was generated with [employer] dictation software. It may contain incorrect words, spelling, and punctuation that were not noted in review of the chart prior to signing ED Disposition - Plan for ED Patient: Referrals: Oswaldo Desir MD [Primary Care Provider] -
[2018-08-03] MEDS: Calcium Gluconate 1 GM/10 ML Vial IV (16:12)
[2018-08-03] MEDS: Dextrose 50%-Water 25 GM/50 ML DISP.SYRIN IV (16:19)
--- NOTE | 2018-08-03 16:26 | PCM.HP.STD ---
Problem List (1) Polycystic kidney disease Status: Chronic (2) End stage renal failure on dialysis Status: Chronic History of Present Illness Date of Admission: 08/03/18 Chief Complaint: Numbness and tingling lower extremities. The patient is a 57 year old F who presents emergency room due to numbness and tingling of the lower extremities ongoing for 2 days. She reports associated head fogginess and generalized weakness. She denies unilateral weakness, vision or speech changes. She states she has had similar symptoms in the remote past related to electrolyte imbalances. She denies chest pain, palpitations, shortness of breath. She has a past medical history of end-stage renal disease on hemodialysis secondary to a cystic kidney disease status post bilateral nephrectomy, hypertension. Past Medical History Past Medical History (Chronic Problems): Chronic Problems Polycystic kidney disease (Chronic) End stage renal failure on dialysis (Chronic) Allergies Penicillins Allergy (Verified 08/03/18 12:28) Rash codeine Adverse Reaction (Verified 08/03/18 12:28) Nausea Home Medications: Ambulatory Orders Medication Instructions Recorded Allopurinol [Zyloprim] 100 mg PO MOWEFR 09/01/16 Ergocalciferol [Vitamin D] 50,000 unit PO QMONTH 09/01/16 Folic Acid/Vit B Complex and C 0.8 mg PO DAILY 09/01/16 [Renal Vitamin Tablet] Ondansetron HCl [Zofran] 4 mg PO PRN PRN 09/01/16 Oxycodone [Oxyir] 5 - 10 mg PO Q4H PRN PRN 09/01/16 Calcium Acetate mg PO 01/17/18 Acetaminophen [Tylenol Extra 1,000 mg PO PRN PRN 08/03/18 Strength] Ascorbic Acid [C-1000] 1,000 mg PO DAILY 08/03/18 Surgical History: - - Bilateral nephrectomy secondary to polycystic kidney disease, section, cholecystectomy. 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 Paternal History Items: - - Polycystic kidney disease Review of Systems Constitutional: Denies: Chills, Fever, Weight Change HEENT: Denies: Head Aches, Sinus Congestion, Sinus Drainage Cardiovascular: Reports: Light Headedness. Denies: Chest Pain, Chest Tightness, Edema, Palpitations, Syncope Respiratory: Denies: Cough, Shortness of breath at rest, Sputum production Gastrointestinal: Denies: Abdominal Pain, Nausea, Vomiting Genitourinary: Denies: Dysuria Musculoskeletal: Denies: Joint Pain, Joint Tenderness Skin: Denies: Rash, Wounds Neurological: Reports: - - Numbness, tingling bilateral lower extremities.. Denies: Blurred vision, Double vision, Change in Speech, Slurred speech, Confusion, Focal weakness Psychiatric: Denies: Anxiety, Depression, Homicidal Ideations, Suicidal Ideations Hematologic/ Lymphatic: Denies: Easy Bruising, Easy Bleeding VTE Information - Inpt Only VTE Present on Admission: No VTE Mechan Device Prophylaxis: None VTE Pharm Prophylaxis ordered?: Yes - Physical Exam General: Alert, Oriented x3, Cooperative, - - Appears fatigued. HEENT: Atraumatic, PERRLA, EOMI, Normocephalic Oral: Dry Mucosa Neck: Supple, No JVD, Negative Carotid Bruits Lungs: Clear to auscultation, Normal air movement Cardiovascular: Regular rate, Regular Rhythm, Normal S1, Normal S2, No murmurs Abdomen: Bowel Sounds Present, Soft, Non Tender, Non-Distended Extremities: No clubbing, No cyanosis, No edema, Capillary Refill Less than 3 Seconds Skin: No rashes, No breakdown Musculoskeletal: No Tenderness to Palpation of Joints or Extremities Neurological: Cranial nerves II-XII grossly intact, Neuro grossly intact Psych/Mental Status: Normal Affect, Appropriate Vital Signs Temp Pulse Resp BP Pulse Ox 97.8 F 68 16 122/72 H 97 08/03/18 12:26 08/03/18 15:28 08/03/18 15:28 08/03/18 15:28 08/03/18 13:30 Oxygen Delivery Method Room Air Weight: 154 lb 15.759 oz Body Mass Index (BMI) 30.2 Laboratory Tests Past 24 Hrs 08/03/18 08/03/18 08/03/18 14:10 14:10 14:10 WBC 11.5 H RBC 3.64 L Hgb 11.3 L Hct 36.5 L MCV 100.3 H MCH 31.0 MCHC 31.0 L RDW 15.3 H RDW Differential 55.8 H Plt Count 356 MPV 9.5 Immature Gran % (Auto) 0.200 Neut % (Auto) 76.6 H Lymph % (Auto) 15.5 L [place] % (Auto) 5.8 Eos % (Auto) 1.2 Baso % (Auto) 0.7 Absolute Neuts (auto) 8.8 H Absolute Lymphs (auto) 1.77 Total Counted Not Reportable PT 13.3 INR 1.0 APTT 31.7 Sodium 136 Potassium 6.9 H* Chloride 99 Carbon Dioxide 31.0 Anion Gap 6 BUN 45 H Creatinine 8.13 H* Estim Creat Clear Calc 5.62 Est GFR (MDRD) Af Amer 7 L Est GFR (MDRD) Non-Af 5 L BUN/Creatinine Ratio 5.5 L Glucose 84 Calcium 8.6 Troponin I < 0.015 Assessment/Plan 1. Hyperkalemia in the context of end-stage renal disease on hemodialysis secondary to polycystic kidney disease status post bilateral nephrectomy in 2016- Follows with Dr. Lau. Has not missed scheduled dialysis. Plan for immediate dialysis this evening. Patient given calcium gluconate, insulin and Kayexalate in ER. No EKG changes. Trend BMP. 2. Paresthesias-suspected secondary to #1. No focal deficits, vision or speech changes. Continue to monitor. 3. Hypertension-per history. Not on regimen. 4. Chronic macrocytic anemia-stable, trend CBC. DVT prophylaxis-Heparin sc This patient was seen by SONIDO Herman under the supervision of Dr. Valero.
[2018-08-03 18:19] LABS: Anion Gap 12 (5-15); BUN 46 mg/dL (7-18); BUN/Creat Ratio 5.4 RATIO (10-20); Chloride 100 mmol/L (98-107); EST Glomerular Filtration Rate 5 mL/min (>60); Est Glom Filt Rate - Afr Amer 6 mL/min (>60); Estimated Creatinine Clearance 5.33 ml/min; Glucose 55 mg/dL (74-106); Magnesium 2.8 mg/dL (1.6-2.6); Phosphorus 5.9 mg/dL (2.5-4.9); Potassium 6.4 mmol/L (3.5-5.1); Sodium Level 140 mmol/L (136-145)
[2018-08-03 18:20] LABS: Creatinine, Serum 8.56 mg/dL (0.55-1.02)
[2018-08-03] MEDS: Calcium Acetate 667 MG Capsule 2668 MG PO (18:29)
--- NOTE | 2018-08-03 20:36 | DIALYSIS ---
HD x 2 hours complete. Tolerated tx well. Ran on 1k bath. Used upper left arm fistula. [place] removed post tx. Hemostasis achieved. Report was given to KIARA Mackey.
[2018-08-03] MEDS: Heparin Injection (Vial) 5,000 UNIT/ML VIAL 5000 UNIT SC (21:42)
[2018-08-03 22:21] LABS: Anion Gap 7 (5-15); BUN 22 mg/dL (7-18); BUN/Creat Ratio 4.6 RATIO (10-20); Calcium,Total 8.8 mg/dL (8.5-10.1); Chloride 98 mmol/L (98-107); Creatinine, Serum 4.77 mg/dL (0.55-1.02); EST Glomerular Filtration Rate 10 mL/min (>60); Est Glom Filt Rate - Afr Amer 12 mL/min (>60); Estimated Creatinine Clearance 9.57 ml/min; Glucose 104 mg/dL (74-106); Potassium 5.3 mmol/L (3.5-5.1); Sodium Level 134 mmol/L (136-145)
[2018-08-04] VITALS (12 sets, daily range): BP systolic 96–168; BP diastolic 56–85; PULSE 74–99; RESP 16–20; TEMP 35.6–36.8; O2SAT 96–98
[2018-08-04 02:36] LABS: Anion Gap 7 (5-15); BUN 25 mg/dL (7-18); BUN/Creat Ratio 4.6 RATIO (10-20); Calcium,Total 8.7 mg/dL (8.5-10.1); Chloride 99 mmol/L (98-107); Creatinine, Serum 5.42 mg/dL (0.55-1.02); EST Glomerular Filtration Rate 9 mL/min (>60); Est Glom Filt Rate - Afr Amer 11 mL/min (>60); Estimated Creatinine Clearance 8.42 ml/min; Glucose 89 mg/dL (74-106); Potassium 5.7 mmol/L (3.5-5.1); Sodium Level 136 mmol/L (136-145)
[2018-08-04 07:47] LABS: Anion Gap 6 (5-15); BUN 27 mg/dL (7-18); BUN/Creat Ratio 4.5 RATIO (10-20); Calcium,Total 8.7 mg/dL (8.5-10.1); Chloride 99 mmol/L (98-107); EST Glomerular Filtration Rate 8 mL/min (>60); Est Glom Filt Rate - Afr Amer 9 mL/min (>60); Estimated Creatinine Clearance 7.61 ml/min; Glucose 83 mg/dL (74-106); Potassium 6.6 mmol/L (3.5-5.1); Sodium Level 134 mmol/L (136-145)
--- NOTE | 2018-08-04 08:00 | EKG12_ITS ---
Test Reason : HYPERKALEMIA Blood Pressure : / mmHG Vent. Rate : 076 BPM Atrial Rate : 076 BPM P-R Int : 148 ms QRS Dur : 080 ms QT Int : 404 ms P-R-T Axes : 048 -17 087 degrees QTc Int : 454 ms Normal sinus rhythm Normal ECG When compared with ECG of 03-AUG-2018 12:50, MANUAL COMPARISON REQUIRED, DATA IS UNCONFIRMED Confirmed by LAMBERTO YING, DAHLIA ([id number]), news assignment editor PO BOWMAN ([id number]) on 08/08/2018 1:17:38 PM Referred By: Lillian Valero Confirmed By:DAHLIA ORANTES MD
[2018-08-04] MEDS: Folic Acid/Vitamin B Comp W-C 1 Capsule 1 CAP PO (09:10)
[2018-08-04] MEDS: Calcium Acetate 667 MG Capsule 2668 MG PO ×2 (09:10→17:03)
[2018-08-04] MEDS: Allopurinol 100 MG Tablet PO (09:11)
[2018-08-04] MEDS: Heparin Injection (Vial) 5,000 UNIT/ML VIAL 5000 UNIT SC ×2 (09:30→21:51)
[2018-08-04] MEDS: oxyCODONE 5 MG Tablet PO ×2 (09:35→21:54)
--- NOTE | 2018-08-04 11:15 | CASEMGMT ---
KIARA QUIROS assessment: Face to Face with patient for initial transition planning/care coordination assessment. KIARA QUIROS introduced self and role at [facility], pt voices understanding and consents to assessment at this time. Pt is sitting up in bed in no distress at this time. Pt is A/Ox4 at this time and answers all questions appropriately at this time. Care providers, pharmacy, and demographics verified at this time. PCP: Oswaldo Desir Specialists: Nelson/patricio Lau Preferred Pharmacy: [facility] Insurance: [facility] A/B, [facility] Prescription Benefit: [facility], pt states just switched to the [facility] and unsure of in-network pharmacies. This KIARA QUIROS provided pt with list of in-network pharmacies at this time from [facility] website. Living Will/HPOA: Pt states has HPOA but not LW and pt is aware at that HPOA is not on file at [facility] at this time. Pt states that her , Charli Fox, is HPOA. LNOK: Charli Fox, ; Isaac Fox, son Living Arrangements: Pt states lives in 2 story home with and states no concerns at home at this time. Pt states is independent with ADL's. Transportation: Pt states drives self and states no transportation concerns at this time. DME/HHC: Pt states has grab bars in shower and states no need for any further DME at this time. Pt states no hx of SNF or HHC in the past but pt states was on PD for awhile and is supposed to be starting HD at home in the near future. Pt is currently on HD at [facility] at 0550. Pt states no concerns with going home at time of discharge. Pt is on disability. Pt states does not smoke or drink ETOH. Pt states no further concerns/needs at this time. CM to follow for any further discharge planning/needs. Advised pt to ask for CM if any further questions/concerns/needs arise, voices understanding. Plan: Home w/ resumption of OP dialysis. [place] KIARA QUIROS
--- NOTE | 2018-08-04 12:24 | PCM.CONS.R ---
Problem List (1) End stage renal failure on dialysis Status: Chronic Consultation - Renal 08/04/18 PCP/ Referring MD: Requesting physician: Dr Villegas Primary care physician: Oswaldo Desir MD Reason for Consultation:: ESRD - History of Present Illness History of Present Illness: The patient is a 57 year old F well known to us. ESRD on HD MWF schedule. admitted with LE weakness and found to have severe hyperkalemia. was emergently dialyzed yesterday, is hyperkalemic again today. currently does not offer any complaints right now - Allergies Allergies: Allergies Penicillins Allergy (Verified 08/03/18 12:28) Rash codeine Adverse Reaction (Verified 08/03/18 12:28) Nausea - Current Medications Current Medications: Current Medications Al Hydroxide/Mg Hydroxide (Mylanta Ii) 30 ml PO Q6H PRN PRN PRN Reason: Gastric burning Allopurinol (Zyloprim) 100 mg PO MoWeFr@0800 [facility] Last Admin: 08/04/18 09:11 Dose: 100 mg Calcium Acetate (Phoslo Gel Cap) 2,668 mg PO TIDCM [facility] Last Admin: 08/04/18 09:10 Dose: 2,668 mg Heparin Sodium (Porcine) (Heparin Na) 5,000 unit SC Q12 [facility] Last Admin: 08/04/18 09:30 Dose: 5,000 unit Hydralazine HCl (Apresoline Iv) 10 mg IV Q4H PRN PRN PRN Reason: SBP > 160 Sodium Chloride () 1,000 mls @ 50 mls/hr IV .Q20H [facility] Last Admin: 08/03/18 14:24 Dose: Not Given Magnesium Hydroxide (Milk Of Magnesia) 30 ml PO DAILY PRN PRN Reason: Constipation Multivit/Ca Carb/B Cmplx/FA/Prenat (Nephrocaps, [facility]) [facility] Admin: 08/04/18 09:10 Dose: 1 capsule Ondansetron HCl (Zofran) 4 mg IV Q8H PRN PRN PRN Reason: NAUSEA/VOMITING Oxycodone HCl (Oxyir) 5 - 10 mg PO Q4H PRN PRN PRN Reason: PAIN Last Admin: 08/04/18 09:35 Dose: 5 mg - Past Medical History Past Medical History (Chronic Problems): Chronic Problems Polycystic kidney disease (Chronic) End stage renal failure on dialysis (Chronic) - Past Surgical History Surgical History: - - Bilateral nephrectomy secondary to polycystic kidney disease, section, cholecystectomy. - Social History Smoking Status: Former smoker Alcohol: None Drugs: None - Family History Maternal History Items: - - Denies maternal cardiac history or other significant medical history. Paternal History Items: - - Polycystic kidney disease Review of Systems Constitutional: Denies: Chills, Fever, Weight Change HEENT: Denies: Head Aches, Sinus Congestion, Sinus Drainage Cardiovascular: Denies: Chest Pain, Palpitations Respiratory: Denies: Cough, Shortness of breath at rest, Sputum production Gastrointestinal: Denies: Abdominal Pain, Nausea, Vomiting Genitourinary: Denies: Dysuria Musculoskeletal: Denies: Joint Pain, Joint Tenderness Skin: Denies: Rash, Wounds Neurological: Denies: Numbness, Tingling, Focal weakness Psychiatric: Denies: Anxiety, Depression, Homicidal Ideations, Suicidal Ideations Hematologic/ Lymphatic: Denies: Easy Bruising, Easy Bleeding - Physical Exam General: Alert, Oriented x3, Cooperative HEENT: Atraumatic, PERRLA, EOMI, Normocephalic Neck: Supple, No JVD, Negative Carotid Bruits Lungs: Clear to auscultation, Normal air movement Cardiovascular: Regular rate, No murmurs Abdomen: Bowel Sounds Present, Soft, Non Tender Extremities: No edema, Capillary Refill Less than 3 Seconds Skin: No rashes, No breakdown Musculoskeletal: No Tenderness to Palpation of Joints or Extremities Neurological: Cranial nerves II-XII grossly intact Psych/Mental Status: Normal Affect, Appropriate Vital Signs Temp Pulse Resp BP Pulse Ox 98.0 F 80 18 114/65 98 08/04/18 09:02 08/04/18 11:18 08/04/18 09:02 08/04/18 09:02 08/04/18 09:02 Oxygen Delivery Method Room Air Weight: 68.629 kg Body Mass Index (BMI) 29.9 Intake and Output for Last 24 Hours 08/02/18 08/03/18 08/04/18 23:59 23:59 23:59 Intake Total 100 / 100 50 / 50 Output Total 300 / 300 0 / 0 Balance -200 / -200 50 / 50 Laboratory Tests Past 24 Hrs 08/03/18 08/03/18 08/03/18 14:10 14:10 14:10 WBC 11.5 H RBC 3.64 L Hgb 11.3 L Hct 36.5 L MCV 100.3 H MCH 31.0 MCHC 31.0 L RDW 15.3 H RDW Differential 55.8 H Plt Count 356 MPV 9.5 Immature Gran % (Auto) 0.200 Neut % (Auto) 76.6 H Lymph % (Auto) 15.5 L [place] % (Auto) 5.8 Eos % (Auto) 1.2 Baso % (Auto) 0.7 Absolute Neuts (auto) 8.8 H Absolute Lymphs (auto) 1.77 Total Counted Not Reportable PT 13.3 INR 1.0 APTT 31.7 Sodium 136 Potassium 6.9 H* Chloride 99 Carbon Dioxide 31.0 Anion Gap 6 BUN 45 H Creatinine 8.13 H* Estim Creat Clear Calc 5.62 Est GFR (MDRD) Af Amer 7 L Est GFR (MDRD) Non-Af 5 L BUN/Creatinine Ratio 5.5 L Glucose 84 Calcium 8.6 Phosphorus Magnesium Troponin I < 0.015 08/03/18 08/03/18 08/04/18 17:46 21:50 01:50 WBC RBC Hgb Hct MCV MCH MCHC RDW RDW Differential Plt Count MPV Immature Gran % (Auto) Neut % (Auto) Lymph % (Auto) [place] % (Auto) Eos % (Auto) Baso % (Auto) Absolute Neuts (auto) Absolute Lymphs (auto) Total Counted PT INR APTT Sodium 140 134 L 136 Potassium 6.4 H* 5.3 H 5.7 H Chloride 100 98 99 Carbon Dioxide 28.0 29.0 30.0 Anion Gap 12 7 7 BUN 46 H 22 H 25 H Creatinine 8.56 H* 4.77 H 5.42 H Estim Creat Clear Calc 5.33 9.57 8.42 Est GFR (MDRD) Af Amer 6 L 12 L 11 L Est GFR (MDRD) Non-Af 5 L 10 L 9 L BUN/Creatinine Ratio 5.4 L 4.6 L 4.6 L Glucose 55 L 104 89 Calcium 9.0 8.8 8.7 Phosphorus 5.9 H Magnesium 2.8 H Troponin I 08/04/18 06:08 WBC RBC Hgb Hct MCV MCH MCHC RDW RDW Differential Plt Count MPV Immature Gran % (Auto) Neut % (Auto) Lymph % (Auto) [place] % (Auto) Eos % (Auto) Baso % (Auto) Absolute Neuts (auto) Absolute Lymphs (auto) Total Counted PT INR APTT Sodium 134 L Potassium 6.6 H* Chloride 99 Carbon Dioxide 29.0 Anion Gap 6 BUN 27 H Creatinine 6.00 H Estim Creat Clear Calc 7.61 Est GFR (MDRD) Af Amer 9 L Est GFR (MDRD) Non-Af 8 L BUN/Creatinine Ratio 4.5 L Glucose 83 Calcium 8.7 Phosphorus Magnesium Troponin I Assessment/Plan ESRD. HD today as per schedule. see orders/flowsheets Hyperkalemia. in general she runs K levels on higher side but this is somewhat higher than her baseline. access clearance has been ok. post K values yesterday was ok. so clearance is not an issue. no evidence of any cell lysis thats causing hyperkalemia. no new meds. will check CPK if not done recently today dialysis on 1K bath and 2 K bath combination she may be a candidate for veltassa if she continues to have hyperkalemia on dialysis d/w Dr Villegas
--- NOTE | 2018-08-04 12:28 | CON.PCM_ITS ---
Problem List (1) End stage renal failure on dialysis Status: Chronic Consultation - Renal 08/04/18 PCP/ Referring MD: Requesting physician: Dr Villegas Primary care physician: Oswaldo Desir MD Reason for Consultation:: ESRD - History of Present Illness History of Present Illness: The patient is a 57 year old F well known to us. ESRD on HD MWF schedule. ad mitted with LE weakness and found to have severe hyperkalemia. was emergently dialyzed yesterday, is hyperkalemic again today. currently does not offer any complaints right now - Allergies Allergies: Allergies Penicillins Allergy (Verified 08/03/18 12:28) Rash codeine Adverse Reaction (Verified 08/03/18 12:28) Nausea - Current Medications Current Medications: Current Medications Al Hydroxide/Mg Hydroxide (Mylanta Ii) 30 ml PO Q6H PRN PRN PRN Reason: Gastric burning Allopurinol (Zyloprim) 100 mg PO MoWeFr@0800 [facility] Last Admin: 08/04/18 09:11 Dose: 100 mg Calcium Acetate (Phoslo Gel Cap) 2,668 mg PO TIDCM [facility] Last Admin: 08/04/18 09:10 Dose: 2,668 mg Heparin Sodium (Porcine) (Heparin Na) 5,000 unit SC Q12 [facility] Last Admin: 08/04/18 09:30 Dose: 5,000 unit Hydralazine HCl (Apresoline Iv) 10 mg IV Q4H PRN PRN PRN Reason: SBP > 160 Sodium Chloride () 1,000 mls @ 50 mls/hr IV .Q20H [facility] Last Admin: 08/03/18 14:24 Dose: Not Given Magnesium Hydroxide (Milk Of Magnesia) 30 ml PO DAILY PRN PRN Reason: Constipation Multivit/Ca Carb/B Cmplx/FA/Prenat (Nephrocaps, [facility]ro) [facility] Last Admin: 08/04/18 09:10 Dose: 1 capsule Ondansetron HCl (Zofran) 4 mg IV Q8H PRN PRN PRN Reason: NAUSEA/VOMITING Oxycodone HCl (Oxyir) 5 - 10 mg PO Q4H PRN PRN PRN Reason: PAIN Last Admin: 08/04/18 09:35 Dose: 5 mg - Past Medical History Past Medical History (Chronic Problems): Chronic Problems Polycystic kidney disease (Chronic) End stage renal failure on dialysis (Chronic) - Past Surgical History Surgical History: - - Bilateral nephrectomy secondary to polycystic kidney disease, section, cholecystectomy. - Social History Smoking Status: Former smoker Alcohol: None Drugs: None - Family History Maternal History Items: - - Denies maternal cardiac history or other significant medical history. Paternal History Items: - - Polycystic kidney disease Review of Systems Constitutional: Denies: Chills, Fever, Weight Change HEENT: Denies: Head Aches, Sinus Congestion, Sinus Drainage Cardiovascular: Denies: Chest Pain, Palpitations Respiratory: Denies: Cough, Shortness of breath at rest, Sputum production Gastrointestinal: Denies: Abdominal Pain, Nausea, Vomiting Genitourinary: Denies: Dysuria Musculoskeletal: Denies: Joint Pain, Joint Tenderness Skin: Denies: Rash, Wounds Neurological: Denies: Numbness, Tingling, Focal weakness Psychiatric: Denies: Anxiety, Depression, Homicidal Ideations, Suicidal Ideations Hematologic/ Lymphatic: Denies: Easy Bruising, Easy Bleeding - Physical Exam General: Alert, Oriented x3, Cooperative HEENT: Atraumatic, PERRLA, EOMI, Normocephalic Neck: Supple, No JVD, Negative Carotid Bruits Lungs: Clear to auscultation, Normal air movement Cardiovascular: Regular rate, No murmurs Abdomen: Bowel Sounds Present, Soft, Non Tender Extremities: No edema, Capillary Refill Less than 3 Seconds Skin: No rashes, No breakdown Musculoskeletal: No Tenderness to Palpation of Joints or Extremities Neurological: Cranial nerves II-XII grossly intact Psych/Mental Status: Normal Affect, Appropriate Vital Signs Temp Pulse Resp BP Pulse Ox 98.0 F 80 18 114/65 98 08/04/18 09:02 08/04/18 11:18 08/04/18 09:02 08/04/18 09:02 08/04/18 09:02 Oxygen Delivery Method Room Air Weight: 68.629 kg Body Mass Index (BMI) 29.9 Intake and Output for Last 24 Hours 08/02/18 08/03/18 08/04/18 23:59 23:59 23:59 Intake Total 100 / 100 50 / 50 Output Total 300 / 300 0 / 0 Balance -200 / -200 50 / 50 Laboratory Tests Past 24 Hrs 08/03/18 08/03/18 08/03/18 14:10 14:10 14:10 WBC 11.5 H RBC 3.64 L Hgb 11.3 L Hct 36.5 L MCV 100.3 H MCH 31.0 MCHC 31.0 L RDW 15.3 H RDW Differential 55.8 H Plt Count 356 MPV 9.5 Immature Gran % (Auto) 0.200 Neut % (Auto) 76.6 H Lymph % (Auto) 15.5 L [place] % (Auto) 5.8 Eos % (Auto) 1.2 Baso % (Auto) 0.7 Absolute Neuts (auto) 8.8 H Absolute Lymphs (auto) 1.77 Total Counted Not Reportable PT 13.3 INR 1.0 APTT 31.7 Sodium 136 Potassium 6.9 H* Chloride 99 Carbon Dioxide 31.0 Anion Gap 6 BUN 45 H Creatinine 8.13 H* Estim Creat Clear Calc 5.62 Est GFR (MDRD) Af Amer 7 L Est GFR (MDRD) Non-Af 5 L BUN/Creatinine Ratio 5.5 L Glucose 84 Calcium 8.6 Phosphorus Magnesium Troponin I < 0.015 08/03/18 08/03/18 08/04/18 17:46 21:50 01:50 WBC RBC Hgb Hct MCV MCH MCHC RDW RDW Differential Plt Count MPV Immature Gran % (Auto) Neut % (Auto) Lymph % (Auto) [place] % (Auto) Eos % (Auto) Baso % (Auto) Absolute Neuts (auto) Absolute Lymphs (auto) Total Counted PT INR APTT Sodium 140 134 L 136 Potassium 6.4 H* 5.3 H 5.7 H Chloride 100 98 99 Carbon Dioxide 28.0 29.0 30.0 Anion Gap 12 7 7 BUN 46 H 22 H 25 H Creatinine 8.56 H* 4.77 H 5.42 H Estim Creat Clear Calc 5.33 9.57 8.42 Est GFR (MDRD) Af Amer 6 L 12 L 11 L Est GFR (MDRD) Non-Af 5 L 10 L 9 L BUN/Creatinine Ratio 5.4 L 4.6 L 4.6 L Glucose 55 L 104 89 Calcium 9.0 8.8 8.7 Phosphorus 5.9 H Magnesium 2.8 H Troponin I 08/04/18 06:08 WBC RBC Hgb Hct MCV MCH MCHC RDW RDW Differential Plt Count MPV Immature Gran % (Auto) Neut % (Auto) Lymph % (Auto) [place] % (Auto) Eos % (Auto) Baso % (Auto) Absolute Neuts (auto) Absolute Lymphs (auto) Total Counted PT INR APTT Sodium 134 L Potassium 6.6 H* Chloride 99 Carbon Dioxide 29.0 Anion Gap 6 BUN 27 H Creatinine 6.00 H Estim Creat Clear Calc 7.61 Est GFR (MDRD) Af Amer 9 L Est GFR (MDRD) Non-Af 8 L BUN/Creatinine Ratio 4.5 L Glucose 83 Calcium 8.7 Phosphorus Magnesium Troponin I Assessment/Plan ESRD. HD today as per schedule. see orders/flowsheets Hyperkalemia. in general she runs K levels on higher side but this is somewhat higher than her baseline. access clearance has been ok. post K values yesterday was ok. so clearance is not an issue. no evidence of any cell lysis thats causing hyperkalemia. no new meds. will check CPK if not done recently today dialysis on 1K bath and 2 K bath combination she may be a candidate for veltassa if she continues to have hyperkalemia on dialysis d/w Dr Villegas
--- NOTE | 2018-08-04 13:03 | PCM.PROGNOTE ---
<Gayle Paredes - Last Filed: 08/04/18 13:13> Subjective: Patient seen and examined. Feels improved. Denies further numbness, tingling of the extremities. - Physical Exam General: Alert, Oriented x3, Cooperative HEENT: Atraumatic, PERRLA, EOMI, Normocephalic Neck: Supple, No JVD, Negative Carotid Bruits Lungs: Clear to auscultation, Normal air movement Cardiovascular: Regular rate, Regular Rhythm, Normal S1, Normal S2, No murmurs Abdomen: Bowel Sounds Present, Soft, Non Tender, Non-Distended Extremities: No clubbing, No cyanosis, No edema, Capillary Refill Less than 3 Seconds, - - Left upper extremity AV fistula Skin: No rashes, No breakdown Musculoskeletal: No Tenderness to Palpation of Joints or Extremities Neurological: Cranial nerves II-XII grossly intact, Neuro grossly intact Psych/Mental Status: Normal Affect, Appropriate Vital Signs Temp Pulse Resp BP Pulse Ox 98.0 F 80 18 114/65 98 08/04/18 09:02 08/04/18 11:18 08/04/18 09:02 08/04/18 09:02 08/04/18 09:02 Oxygen Delivery Method Room Air Weight: 151 lb 4.8 oz Body Mass Index (BMI) 29.9 Intake and Output for Last 24 Hours 08/02/18 08/03/18 08/04/18 23:59 23:59 23:59 Intake Total 100 / 100 50 / 50 Output Total 300 / 300 0 / 0 Balance -200 / -200 50 / 50 Laboratory Tests Past 24 Hrs 08/03/18 08/03/18 08/03/18 14:10 14:10 14:10 WBC 11.5 H RBC 3.64 L Hgb 11.3 L Hct 36.5 L MCV 100.3 H MCH 31.0 MCHC 31.0 L RDW 15.3 H RDW Differential 55.8 H Plt Count 356 MPV 9.5 Immature Gran % (Auto) 0.200 Neut % (Auto) 76.6 H Lymph % (Auto) 15.5 L [place] % (Auto) 5.8 Eos % (Auto) 1.2 Baso % (Auto) 0.7 Absolute Neuts (auto) 8.8 H Absolute Lymphs (auto) 1.77 Total Counted Not Reportable PT 13.3 INR 1.0 APTT 31.7 Sodium 136 Potassium 6.9 H* Chloride 99 Carbon Dioxide 31.0 Anion Gap 6 BUN 45 H Creatinine 8.13 H* Estim Creat Clear Calc 5.62 Est GFR (MDRD) Af Amer 7 L Est GFR (MDRD) Non-Af 5 L BUN/Creatinine Ratio 5.5 L Glucose 84 Calcium 8.6 Phosphorus Magnesium Troponin I < 0.015 08/03/18 08/03/18 08/04/18 17:46 21:50 01:50 WBC RBC Hgb Hct MCV MCH MCHC RDW RDW Differential Plt Count MPV Immature Gran % (Auto) Neut % (Auto) Lymph % (Auto) [place] % (Auto) Eos % (Auto) Baso % (Auto) Absolute Neuts (auto) Absolute Lymphs (auto) Total Counted PT INR APTT Sodium 140 134 L 136 Potassium 6.4 H* 5.3 H 5.7 H Chloride 100 98 99 Carbon Dioxide 28.0 29.0 30.0 Anion Gap 12 7 7 BUN 46 H 22 H 25 H Creatinine 8.56 H* 4.77 H 5.42 H Estim Creat Clear Calc 5.33 9.57 8.42 Est GFR (MDRD) Af Amer 6 L 12 L 11 L Est GFR (MDRD) Non-Af 5 L 10 L 9 L BUN/Creatinine Ratio 5.4 L 4.6 L 4.6 L Glucose 55 L 104 89 Calcium 9.0 8.8 8.7 Phosphorus 5.9 H Magnesium 2.8 H Troponin I 08/04/18 06:08 WBC RBC Hgb Hct MCV MCH MCHC RDW RDW Differential Plt Count MPV Immature Gran % (Auto) Neut % (Auto) Lymph % (Auto) [place] % (Auto) Eos % (Auto) Baso % (Auto) Absolute Neuts (auto) Absolute Lymphs (auto) Total Counted PT INR APTT Sodium 134 L Potassium 6.6 H* Chloride 99 Carbon Dioxide 29.0 Anion Gap 6 BUN 27 H Creatinine 6.00 H Estim Creat Clear Calc 7.61 Est GFR (MDRD) Af Amer 9 L Est GFR (MDRD) Non-Af 8 L BUN/Creatinine Ratio 4.5 L Glucose 83 Calcium 8.7 Phosphorus Magnesium Troponin I Medical Necessity - Tobacco Use Smoking Status: Former smoker Assessment/Plan 1. Hyperkalemia in the context of end-stage renal disease on hemodialysis secondary to polycystic kidney disease status post bilateral nephrectomy in 2016- Follows with Dr. Lau. Has not missed scheduled dialysis. Nephrology following. A.m. for second run of dialysis today. Check CPK. Per nephrology, possible candidate for Veltassa if hyperkalemia is persistent. Repeat BMP this evening and again in a.m. 2. Paresthesias-secondary to #1. No focal deficits, vision or speech changes. Resolved. 3. Hypertension-per history. Not on regimen. Blood pressure stable. 4. Chronic macrocytic anemia-stable, trend CBC. DVT prophylaxis-Heparin sc This patient was seen by SONIDO Herman under the supervision of Dr. Villegas. <Ajay Villegas - Last Filed: 08/04/18 16:43> Subjective: The patient was admitted yesterday with Bilateral lower extremity weakness secondary to hyperkalemia. Her lower extremity weakness has improved. She has end-stage renal disease secondary to polycystic kidney disease on hemodialysis. She was dialyzed emergently on 08/03/2018 her potassium improved but she again hyperkalemic in the morning 6.6, CO2 29, anion gap 6. 2 g IV calcium gluconate was given. Twelve-lead EKG was done and does not show tall T waves or signs waves. Normal sinus rhythm at [address] Lau. patient was dialyzed in the morning today. Postdialysis potassium 5.7. - Physical Exam General: Alert, Oriented x3, Cooperative HEENT: Atraumatic, PERRLA, EOMI, Normocephalic Neck: Supple, No JVD, Negative Carotid Bruits Lungs: Clear to auscultation, Normal air movement Cardiovascular: Regular rate, Regular Rhythm, Normal S1, Normal S2, No murmurs Abdomen: Bowel Sounds Present, Soft, Non Tender, Non-Distended Extremities: No edema, Capillary Refill Less than 3 Seconds, - Skin: No rashes, No breakdown Musculoskeletal: No Tenderness to Palpation of Joints or Extremities, Arthritic Changes, - - Chronic mild muscle weakness of lower extremities Neurological: Cranial nerves II-XII grossly intact, Deep Tendon Reflexes 2+/4 and Symmetrical, Neuro grossly intact Psych/Mental Status: Normal Affect, Appropriate Vital Signs Temp Pulse Resp BP Pulse Ox 96.8 F L 87 20 H 130/60 H 98 08/04/18 15:30 08/04/18 15:30 08/04/18 15:30 08/04/18 15:30 08/04/18 14:15 Oxygen Delivery Method Room Air Weight: 153 lb 10.595 oz Body Mass Index (BMI) 29.9 Intake and Output for Last 24 Hours 08/02/18 08/03/18 08/04/18 23:59 23:59 23:59 Intake Total 100 / 100 50 / 50 Output Total 300 / 300 1100 / 1100 Balance -200 / -200 -1050 / -1050 Laboratory Tests Past 24 Hrs 08/03/18 08/03/18 08/04/18 17:46 21:50 01:50 Sodium 140 134 L 136 Potassium 6.4 H* 5.3 H 5.7 H Chloride 100 98 99 Carbon Dioxide 28.0 29.0 30.0 Anion Gap 12 7 7 BUN 46 H 22 H 25 H Creatinine 8.56 H* 4.77 H 5.42 H Estim Creat Clear Calc 5.33 9.57 8.42 Est GFR (MDRD) Af Amer 6 L 12 L 11 L Est GFR (MDRD) Non-Af 5 L 10 L 9 L BUN/Creatinine Ratio 5.4 L 4.6 L 4.6 L Glucose 55 L 104 89 Calcium 9.0 8.8 8.7 Phosphorus 5.9 H Magnesium 2.8 H 08/04/18 06:08 Sodium 134 L Potassium 6.6 H* Chloride 99 Carbon Dioxide 29.0 Anion Gap 6 BUN 27 H Creatinine 6.00 H Estim Creat Clear Calc 7.61 Est GFR (MDRD) Af Amer 9 L Est GFR (MDRD) Non-Af 8 L BUN/Creatinine Ratio 4.5 L Glucose 83 Calcium 8.7 Phosphorus Magnesium Assessment/Plan This patient was seen in conjunction with PROGRESS CLERK, Gayle. I have independently interviewed and examined the patient and reviewed pertinent history, examination findings, laboratory and plan of management. I have reviewed the note and agree with the documented findings with the few additional points. In brief, patient is 57-year-old female with history of polycystic kidney disease status post bilateral nephrectomy in 2016 on hemodialysis was admitted with bilateral lower extremity paresthesia, mild weakness and fatigue secondary to hyperkalemia. Patient had emergent dialysis on day of admission and today. 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 Check BMP. Nephrology suggested she may be a candidate for veltassa if she continues to have hyperkalemia on dialysis I have discussed my assessment with PROGRESS CLERKGayle and orders have been reviewed. Code Visit Inpatient E&M: 69063 Subs Hosp L3
[2018-08-04 17:41] LABS: Anion Gap 9 (5-15); BUN 13 mg/dL (7-18); BUN/Creat Ratio 3.7 RATIO (10-20); CPK Total, Creatine Kinase 40 U/L (26-192); Chloride 99 mmol/L (98-107); Creatinine, Serum 3.47 mg/dL (0.55-1.02); EST Glomerular Filtration Rate 15 mL/min (>60); Est Glom Filt Rate - Afr Amer 18 mL/min (>60); Estimated Creatinine Clearance 13.16 ml/min; Glucose 116 mg/dL (74-106); Potassium 4.7 mmol/L (3.5-5.1); Sodium Level 139 mmol/L (136-145)
[2018-08-05 02:45] VITALS: BP 96/65; PULSE 80; RESP 16; TEMP 36.8; O2SAT 99
[2018-08-05 03:00] VITALS: PULSE 78
[2018-08-05] MEDS: oxyCODONE 5 MG Tablet PO (05:20)
[2018-08-05 07:09] VITALS: PULSE 75
[2018-08-05 07:54] LABS: Anion Gap 10 (5-15); BUN 29 mg/dL (7-18); BUN/Creat Ratio 5.3 RATIO (10-20); Calcium,Total 8.9 mg/dL (8.5-10.1); Chloride 100 mmol/L (98-107); Creatinine, Serum 5.49 mg/dL (0.55-1.02); EST Glomerular Filtration Rate 9 mL/min (>60); Est Glom Filt Rate - Afr Amer 10 mL/min (>60); Estimated Creatinine Clearance 8.32 ml/min; Glucose 86 mg/dL (74-106); Potassium 5.2 mmol/L (3.5-5.1); Sodium Level 140 mmol/L (136-145)
[2018-08-05 08:02] VITALS: O2SAT 98
[2018-08-05 09:15] VITALS: BP 115/72; PULSE 86; RESP 16; TEMP 36.7; O2SAT 99
[2018-08-05] MEDS: Heparin Injection (Vial) 5,000 UNIT/ML VIAL 5000 UNIT SC (09:15)
[2018-08-05] MEDS: Calcium Acetate 667 MG Capsule 2668 MG PO (09:15)
[2018-08-05] MEDS: Folic Acid/Vitamin B Comp W-C 1 Capsule 1 CAP PO (09:15)
[2018-08-05] MEDS: Acetaminophen 325 MG Tablet 650 MG PO (10:58)
--- NOTE | 2018-08-05 11:01 | DCINST_ITS ---
You will use the following diet at home:: Renal (restricted protein/sodium) Discharge Activity: Return to Normal Activity Call your doctor if you observe: Shortness of breath, Dizziness, Fainting spells, Chest pain Allergies/Adverse Reactions: Allergies Penicillins Allergy (Verified 08/03/18 12:28) Rash codeine Adverse Reaction (Verified 08/03/18 12:28) Nausea Medications to take at Discharge Allopurinol [Zyloprim] 100 mg PO MOWEFR 09/01/16 Ergocalciferol [Vitamin D] 50,000 unit PO QMONTH 09/01/16 Folic Acid/Vit B Complex and C [Renal Vitamin Tablet] 0.8 mg PO DAILY 09/01/16 Ondansetron HCl [Zofran] 4 mg PO PRN PRN 09/01/16 Oxycodone [Oxyir] 5 - 10 mg PO Q4H PRN PRN 09/01/16 Calcium Acetate 2,668 mg PO TIDCM 01/17/18 Acetaminophen [Tylenol Extra Strength] 1,000 mg PO PRN PRN 08/03/18 Ascorbic Acid [C-1000] 1,000 mg PO DAILY 08/03/18 Primary Care Physician: Oswaldo Desir MD [Primary Care Provider] - Please follow up with your Primary Care Physician in: 1 Week Test Results: Test results from this visit will be discussed in further detail at your follow- up appointment, if applicable. Please Follow Up With: Simi Lau MD When: As scheduled Proposed Discharge Date: 08/05/18
--- NOTE | 2018-08-05 11:33 | PCM.DC.SUM ---
<Gayle Paredes - Last Filed: 08/05/18 11:41> Discharge Date and Diagnosis Date of Admission: 08/03/18 Date of Discharge: 08/05/18 - Primary Discharge Diagnosis 1. Hyperkalemia in the context of end-stage renal disease on hemodialysis secondary to polycystic kidney disease status post bilateral nephrectomy(2015) 2. Paresthesias-secondary to #1 3. Hypertension 4. Chronic macrocytic anemia - Secondary Discharge Diagnosis Chronic Problems Polycystic kidney disease (Chronic) End stage renal failure on dialysis (Chronic) Hospital Course and Treatment Imaging Results: Diagnostic Data Chest X-Ray 08/03/18 12:52 IMPRESSION: No acute intrathoracic process. Electronically Signed: Constance Taylor MD at 13:53 EST , Service support , Dr. Lau- Nephrology Operations: None Procedures: Dialysis Summary of Care Provided: The patient is a 57 year old F admitted 08/03/2018 due to numbness and tingling of the lower extremities. 1. Hyperkalemia in the context of end-stage renal disease on hemodialysis secondary to polycystic kidney disease status post bilateral nephrectomy (2015)- Follows with Dr. Lau. Had not missed scheduled dialysis. Patient had dialysis X2 during admission. CPK 40. Per nephrology, possible candidate for Veltassa if hyperkalemia is persistent. Potassium 5.2 at discharge. Patient will follow up with nephrology on 08/07/2018 for repeat labs and scheduled dialysis. 2. Paresthesias-secondary to #1. 3. Hypertension-per history. Not on regimen. Blood pressure stable without medication. 4. Chronic macrocytic anemia-stable. General: Alert, Oriented x3, Cooperative HEENT: Atraumatic, PERRLA, EOMI, Normocephalic Neck: Supple, No JVD, Negative Carotid Bruits Lungs: Clear to auscultation, Normal air movement Cardiovascular: Regular rate, Regular Rhythm, Normal S1, Normal S2, No murmurs Abdomen: Bowel Sounds Present, Soft, Non Tender, Non-Distended Extremities: No clubbing, No cyanosis, No edema, Capillary Refill Less than 3 Seconds, Left upper extremity AV fistula Skin: No rashes, No breakdown Musculoskeletal: No Tenderness to Palpation of Joints or Extremities Neurological: Cranial nerves II-XII grossly intact, Neuro grossly intact Psych/Mental Status: Normal Affect, Appropriate Patient seen and examined prior to discharge. Physical assessment as noted above. Patient is stable for discharge with follow up recommendations as noted above. This patient was seen by SONIDO Herman under the supervision of Dr. Villegas. - Physical Exam Vital Signs Temp Pulse Resp BP Pulse Ox 98.1 F 86 16 115/72 99 08/05/18 09:15 08/05/18 09:15 08/05/18 09:15 08/05/18 09:15 08/05/18 09:15 Oxygen Delivery Method Room Air Weight: 150 lb 8 oz Body Mass Index (BMI) 29.9 Intake and Output for Last 24 Hours 08/03/18 08/04/18 08/05/18 23:59 23:59 23:59 Intake Total 100 / 100 530 / 530 120 / 120 Output Total 300 / 300 2200 / 2200 Balance -200 / -200 -1670 / -1670 120 / 120 Laboratory Tests Past 24 Hrs 08/04/18 08/05/18 16:55 06:25 Sodium 139 140 Potassium 4.7 5.2 H Chloride 99 100 Carbon Dioxide 31.0 30.0 Anion Gap 9 10 BUN 13 29 H Creatinine 3.47 H 5.49 H Estim Creat Clear Calc 13.16 8.32 Est GFR (MDRD) Af Amer 18 L 10 L Est GFR (MDRD) Non-Af 15 L 9 L BUN/Creatinine Ratio 3.7 L 5.3 L Glucose 116 H 86 Calcium 9.0 8.9 Total Creatine Kinase 40 Discharge Diet: Renal Diet Discharge Activity: Return to Normal Activity Call your doctor if you observe: Shortness of breath, Dizziness, Fainting spells, Chest pain Home Medications: Medications to take at Discharge Allopurinol [Zyloprim] 100 mg PO MOWEFR 09/01/16 Ergocalciferol [Vitamin D] 50,000 unit PO QMONTH 09/01/16 Folic Acid/Vit B Complex and C [Renal Vitamin Tablet] 0.8 mg PO DAILY 09/01/16 Ondansetron HCl [Zofran] 4 mg PO PRN PRN 09/01/16 Oxycodone [Oxyir] 5 - 10 mg PO Q4H PRN PRN 09/01/16 Calcium Acetate 2,668 mg PO TIDCM 01/17/18 Acetaminophen [Tylenol Extra Strength] 1,000 mg PO PRN PRN 08/03/18 Ascorbic Acid [C-1000] 1,000 mg PO DAILY 08/03/18 Primary Care Physician: Cherie Desir MD [Primary Care Provider] - Please follow up with your Primary Care Physician in: 1 Week Please Follow Up With: Simi Lau MD When: As scheduled Please Follow Up With: cherie desir Disposition: Home Minutes spent on discharge:: 35 Patient Condition:: Stable Medical Necessity - Tobacco Use Smoking Status: Former smoker Meaningful Use Info Meaningful Use Diagnoses (Choose all that apply): None applicable <Ajay Villegas - Last Filed: 08/05/18 16:08> Discharge Date and Diagnosis - Secondary Discharge Diagnosis Chronic Problems Polycystic kidney disease (Chronic) End stage renal failure on dialysis (Chronic) Hospital Course and Treatment Summary of Care Provided: This patient was seen in conjunction with Gayle CANNON. I have independently interviewed and examined the patient and reviewed pertinent history, examination findings, laboratory and plan of management. I have reviewed the note and agree with the documented findings with the few additional points. In brief, patient is 57-year-old female with history of polycystic kidney disease status post bilateral nephrectomy in 2016 on hemodialysis was admitted with bilateral lower extremity paresthesia, mild weakness and fatigue secondary to hyperkalemia. Patient had emergent dialysis on day of admission and today. 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 Repeat BMP shows potassium 4.7 and 5.2. Nephrology suggested she may be a candidate for veltassa if she continues to have hyperkalemia on dialysis. Resume outpatient dialysis schedule. Patient is being discharged home. Discharge medication reconciliation done. Discharge follow-up instructions completed. Discharge process discussed with the patient and all questions were answered to patient's satisfaction.. Total time spent, exact 35 minutes on discharge meds reconciliation, examination, review of imaging and blood test and discussion with the patient on follow-up instructions. I have discussed my assessment with Gayle CANNON and orders have been reviewed. ] Subjective: Seen and examined. Patient does not have acute symptoms including weakness, chest pain, shortness of breath. - Physical Exam General: Alert, Oriented x3, Cooperative HEENT: Atraumatic, PERRLA, EOMI, Normocephalic Neck: Supple, No JVD, Negative Carotid Bruits Lungs: Clear to auscultation, Normal air movement, No rhonchi, No wheeze, No rales Cardiovascular: Regular rate, Regular Rhythm, Normal S1, Normal S2, No murmurs Abdomen: Bowel Sounds Present, Soft, Non Tender, Non-Distended, - - Bilateral nephrectomy. On hemodialysis. Extremities: No edema, Capillary Refill Less than 3 Seconds Skin: No rashes, No breakdown Musculoskeletal: No Tenderness to Palpation of Joints or Extremities Neurological: Cranial nerves II-XII grossly intact Psych/Mental Status: Normal Affect, Appropriate Vital Signs Temp Pulse Resp BP Pulse Ox 98.1 F 86 16 115/72 99 08/05/18 09:15 08/05/18 09:15 08/05/18 09:15 08/05/18 09:15 08/05/18 09:15 Oxygen Delivery Method Room Air Weight: 150 lb 8 oz Body Mass Index (BMI) 29.9 Intake and Output for Last 24 Hours 08/03/18 08/04/18 08/05/18 23:59 23:59 23:59 Intake Total 100 / 100 530 / 530 120 / 120 Output Total 300 / 300 2200 / 2200 Balance -200 / -200 -1670 / -1670 120 / 120 Laboratory Tests Past 24 Hrs 08/04/18 08/05/18 16:55 06:25 Sodium 139 140 Potassium 4.7 5.2 H Chloride 99 100 Carbon Dioxide 31.0 30.0 Anion Gap 9 10 BUN 13 29 H Creatinine 3.47 H 5.49 H Estim Creat Clear Calc 13.16 8.32 Est GFR (MDRD) Af Amer 18 L 10 L Est GFR (MDRD) Non-Af 15 L 9 L BUN/Creatinine Ratio 3.7 L 5.3 L Glucose 116 H 86 Calcium 9.0 8.9 Total Creatine Kinase 40 Code Visit Inpatient E&M: 34527 Disch Hosp
== END 2018-08-05 11:35 | disposition home or self-care (01) | DRG 640 ==
LOC: ED 14:06 → PCU 21:36
PROVIDERS: Nurse Practitioner Family; Admitting Provider Family Medicine; Emergency Provider Emergency Medicine; Family Provider Family Medicine; PCP Family Medicine; Referring Provider Family Medicine; Visit Provider Internal Medicine
DX: E87.5 Hyperkalemia (principal); N18.6 End stage renal disease; Q61.3 Polycystic kidney, unspecified; Z99.2 Dependence on renal dialysis; Z87.891 Personal history of nicotine dependence; Z90.5 Acquired absence of kidney; Z79.899 Other long term (current) drug therapy; R20.2 Paresthesia of skin; D53.9 Nutritional anemia, unspecified; I10 Essential (primary) hypertension; M10.9 Gout, unspecified
CPT/HCPCS: 36415; 71046; 80048; 82550; 83735; 84100; 84484; 85025; 85610; 85730; 90937; 93005; 99284; J7030; A4216; G0257; J0610; J2405

== ENCOUNTER → 2018-11-30 07:58 | Outpatient (CLI) | payer MEDICARE, OTHER, SELFPAY ==
[2018-08-03 17:26] VITALS: BMI 29.9
--- NOTE | 2018-11-30 08:00 | BI_ITS ---
MAMMOGRAPHY - BILATERAL SCREENING 3-D TOMOSYNTHESIS REASON FOR EXAM: Female, 57 years old. Bilateral Screening 3-D tomosynthesis PERTINENT HISTORY: No significant family history. TECHNIQUE: 2-D mammograms and 3-D Tomosynthesis of the breast (s) were performed. CAD was performed. COMPARISON: August 09, 2016, January 30, 2015, January 01, 2014 FINDINGS: The breast composition is almost entirely fat. Scattered benign calcifications are seen. No dense spiculated masses or suspicious microcalcifications are identified. No architectural distortion is identified. There is no skin thickening or retraction. There has been no significant change since the prior study. BI/SCREEN MAMM (CAD) W/HA BILAT IMPRESSION: No mammographic signs of malignancy. Routine yearly mammograms recommended. ASSESSMENT CATEGORY: BIRADS Category 2: Benign. A letter regarding these results will be sent to the patient by the facility within 30 days. FOLLOW UP RECOMMENDATION: Yearly follow up mammogram recommended. (A) Approximately 10% of breast cancers are not detected by mammography. A normal mammogram should not delay biopsy of a clinically suspicious abnormality. Electronically Signed: Mike Ziegler MD at 16:02 EDT , Service support ,
== END ==
PROVIDERS: Family Provider Family Medicine; PCP Family Medicine; Referring Provider Family Medicine; Visit Provider Family Medicine
DX: Z12.31 Encounter for screening mammogram for malignant neoplasm of breast (principal)
CPT/HCPCS: 77063; 77067

== ENCOUNTER → 2019-05-01 13:46 | Outpatient (CLI) | payer MEDICARE, OTHER, SELFPAY ==
[2018-08-03 17:26] VITALS: BMI 29.9
== END ==
PROVIDERS: Family Provider Family Medicine; PCP Family Medicine; Referring Provider Family Medicine; Visit Provider Family Medicine
DX: M54.2 Cervicalgia (principal)
CPT/HCPCS: 36415

== ENCOUNTER → 2019-07-19 12:03 | Outpatient (CLI) | payer OTHER, MEDICARE, SELFPAY ==
[2018-08-03 17:26] VITALS: BMI 29.9
[2019-07-19 13:20] LABS: Thyroid Stim Hormone (TSH) 2.16 uIU/mL (0.358-3.74)
== END ==
PROVIDERS: PCP Family Medicine; Referring Provider Family Medicine; Visit Provider Family Medicine
DX: I95.9 Hypotension, unspecified (principal)
CPT/HCPCS: 84443

== ENCOUNTER → 2019-07-19 12:59 | Outpatient (CLI) | payer MEDICARE, OTHER, SELFPAY ==
[2018-08-03 17:26] VITALS: BMI 29.9
--- NOTE | 2019-07-19 13:05 | ECHOD_ITS ---
Reason For Study: HYPOTENSION Procedure This was a 2D Doppler, Color Flow transthoracic echocardiogram. Exam performed in department. Left Ventricle Normal LV size. The estimated ejection fraction is 60 %. No evidence for diastolic dysfunction. No regional wall motion abnormalities noted. Right Ventricle Normal RV size. Normal systolic function. Atria Normal left atrium. Normal right atrium. No doppler evidence for ASD. Mitral Valve There is no mitral valve stenosis. No mitral valve insufficiency. Tricuspid Valve There is no tricuspid stenosis. Trivial tricuspid valve insufficiency. Unable to estimate RV systolic pressure due to insufficient tricuspid regurgitant envelope. Aortic Valve Trisinus/trileaflet aortic valve. There is no aortic stenosis. No aortic valve insufficiency. Pulmonic Valve There is no pulmonic valvular stenosis. No pulmonic valve insufficiency. Great Vessels Normal aortic root. Pericardium/Pleural No pericardial effusion. MMode/2D Measurements & Calculations LVIDd: 4.5 cm IVSd: 0.96 cm Ao root diam: 2.9 cm LVIDs: 2.9 cm LVPWd: 1.0 cm RVDd: 2.9 cm FS: 36.6 % LAV(MOD-bp): 31.1 ml LA A4 area: 12.4 cm2 LA dimension(2D): 2.9 cm LAV(MOD-bp) Indexed: 19.3 ml/m2 LAV(MOD-sp2): 32.3 ml LAV(MOD-sp4): 30.3 ml RA A4 area: 11.5 cm2 Time Measurements MV dec time: 0.20 sec Doppler Measurements & Calculations MV E max chad: 64.0 cm/sec Lat Peak E' Chad: 8.5 cm/sec Med Peak E' Chad: 7.0 cm/sec MV A max chad: 71.9 cm/sec E/E' lat: 7.5 E/E' med: 9.1 MV E/A: 0.89 Ao V2 max: 120.6 cm/sec LV V1 max: 77.5 cm/sec PA V2 max: 118.3 cm/sec Ao max P.8 mmHg LV V1 max P.4 mmHg TR max chad: 226.0 cm/sec TR max P.4 mmHg Interpretation Summary The estimated ejection fraction is 60 %. No evidence for diastolic dysfunction. Trivial tricuspid valve insufficiency. Ordering Physician: Simi Lau Referring Physician: Simi Lau Performed By: Lien Higgins RDCS, RVT
== END ==
PROVIDERS: PCP Family Medicine; Referring Provider Internal Medicine Nephrology; Visit Provider Internal Medicine Nephrology
DX: I95.9 Hypotension, unspecified (principal)
CPT/HCPCS: 84443; 93306

== ENCOUNTER → 2019-09-14 11:10 | Outpatient (CLI) | payer SELFPAY ==
[2018-08-03 17:26] VITALS: BMI 29.9
[2019-09-14 11:49] LABS: Potassium 4.5 mmol/L (3.5-5.1)
== END ==
PROVIDERS: PCP Family Medicine; Referring Provider Internal Medicine Nephrology; Visit Provider Internal Medicine Nephrology
DX: N18.6 End stage renal disease (principal); E87.5 Hyperkalemia
CPT/HCPCS: 84132

== ENCOUNTER → 2019-10-31 07:03 | Outpatient (CLI) | payer MEDICARE, OTHER, SELFPAY ==
[2018-08-03 17:26] VITALS: BMI 29.9
[2019-11-01 21:28] LABS: Adrenocorticotropic Hormone 47.8 pg/mL (7.2-63.3)
== END ==
PROVIDERS: PCP Family Medicine
DX: E27.40 Unspecified adrenocortical insufficiency (principal)
CPT/HCPCS: 36415; 82024; 82533

== ENCOUNTER → 2019-12-27 15:00 | Outpatient (CLI) | payer MEDICARE, OTHER, SELFPAY ==
--- NOTE | 2019-12-27 | EMB_PTH ---
PATIENT: GIUSEPPE XAVIER LOC: [facility]#:[id number] AGE/SX: 64/F ROOM: RE12/27/[address]: SONIDO Kinsey : 1960 BED: DIS: SPEC #: [id number] RECD: 12/27/19 16:21 STATUS: STORM RUDDY #: [id number] BRUCE: 12/27/19 00:[address]: Debra Astudillo NP DEPT: SURGICAL PATHOLOGY RECD BY: Garry Beasley ENTERED: 12/28/19 07:36 SP TYPE: ENDOM BX/C RODRIGO DR: Dr. Oswaldo Horan MD Tissues: Endometrium, NOS Procedures: Surgery Specimen Level IV HEADER OPERATION: Endometrial biopsy PRE-OP DIAGNOSIS: Abnormal uterine bleeding TISSUE SUBMITTED: Endometrial lining MICROSCOPIC DIAGNOSIS Endometrium, biopsy: Weakly proliferative to inactive endometrium with minimal disorder. Stromal breakdown with fibrinopurulent material. AM:silas 12/31/19 MICROSCOPIC DESCRIPTION Slides are reviewed. GROSS DESCRIPTION Received is one container labeled with the patient's name and not further designated. The specimen consists of multiple fragments of hemorrhagic soft tissue mixed with mucoid tissue that in aggregate measure 3 x 2.5 x 0.3 cm. The entire specimen is submitted in one cassette. / SJ:rg 12/28/19 TC:5 CPT: 78291
[2019-12-27 14:19] VITALS: BMI 28.8
[2019-12-27 15:13] LABS: Absolute Lymphocyte Count 3.31 X10^3/uL (0.83-4.51); Basophil# 0.12 X10^3/uL; Eosinophil# 0.21 X10^3/uL; Eosinophils% 1.7 % (0-5); Hematocrit 33.1 % (37-47); Hemoglobin 10.8 g/dL (12.0-15.0); Lymphocyte # 3.31 X10^3/ul (4.0); Lymphocyte % 26.4 % (19-41); Mean Corp Hgb Conc 32.6 g/dL (32-36); Mean Corpuscular Hgb 32.4 pg (27.0-32.0); Mean Corpuscular Volume 99.4 fL (81-99); Mean Platelet Vol. 8.9 fl (6.2-12.0); Monocyte# 0.84 X10^3/uL; Monocyte% 6.7 % (0-10); NRBC Flagged by Analyzer 0 % (0-5); Neutrophil # 8.03 X10^3/uL (2.7-7.7); Neutrophil % 63.8 % (47-70); Platelet Count 317 K/mm3 (150-450); RBC Distribution Width CV 15.6 % (11.6-14.6); RBC Distribution Width SD 56.6 fl (35.1-43.9); Red Blood Count 3.33 M/mm3 (4.2-5.4); White Blood Count 12.6 K/mm3 (4.4-11.0)
== END ==
PROVIDERS: PCP Family Medicine; Referring Provider Nurse Practitioner Women's Health; Visit Provider Nurse Practitioner Women's Health
DX: N93.9 Abnormal uterine and vaginal bleeding, unspecified (principal); J30.1 Allergic rhinitis due to pollen
CPT/HCPCS: 36415; 85025; 88305

== ENCOUNTER → 2020-01-02 11:17 | Outpatient (CLI) | payer MEDICARE, OTHER, SELFPAY ==
[2019-12-27 14:19] VITALS: BMI 28.8
--- NOTE | 2020-01-02 11:18 | US_ITS ---
STUDY: ULTRASOUND TRANSVAGINAL CLINICAL: Female, 59 years old. AUB TECHNIQUE: Transvaginal COMPARISON: None. FINDINGS: Normal uterine size measuring 6.7 x 4.8 x 3.3 cm in maximal craniocaudal dimension. There are no myometrial masses. Multiple echogenic foci within the myometrium consistent with calcified degenerated fibroids. Normal endometrial thickness measuring 2 mm. There are no endometrial masses, and there is no fluid in the endometrial cavity. Normal uterine cervix. The right ovary is not visualized.. Normal left ovary, measuring 1.9 x 1.3 x 1.6 cm. There are multiple follicles without a dominant cyst. There is no free fluid in the pelvis. Polycystic ovary disease: No. US/Transvaginal Non- IMPRESSION: Multiple small calcified degenerated fibroids but overall normal sized uterus. Electronically Signed: Marcel Kahn MD at 12:40 EDT Tel , Service support ,
== END ==
PROVIDERS: PCP Family Medicine; Referring Provider Nurse Practitioner Women's Health; Visit Provider Nurse Practitioner Women's Health
DX: N93.9 Abnormal uterine and vaginal bleeding, unspecified (principal)
CPT/HCPCS: 76830

== ENCOUNTER 2020-01-07 16:50 | Emergency (ER) | payer OTHER, MEDICARE, SELFPAY ==
[2019-12-27 15:28] VITALS: BMI 28.8
[2020-01-07 16:52] VITALS: BP 103/43; PULSE 111; RESP 17; TEMP 36.9; O2SAT 98; BMI 28.3
[2020-01-07 17:52] VITALS: BP 103/43; PULSE 111; RESP 17; TEMP 36.9; O2SAT 98
--- NOTE | 2020-01-07 17:52 | EKG12_ITS ---
Test Reason : ABDOMINAL PAIN Blood Pressure : / mmHG Vent. Rate : 090 BPM Atrial Rate : 090 BPM P-R Int : 142 ms QRS Dur : 076 ms QT Int : 378 ms P-R-T Axes : 039 009 066 degrees QTc Int : 462 ms Normal sinus rhythm Nonspecific T wave abnormality Prolonged QT Abnormal ECG Confirmed by LAKSHMI YING, JOBY ([id number]), copy editor EUGENIA BRUNO ([id number]) on 01/09/2020 10:57:21 AM Referred By: BETO Confirmed By:JOBY MARTINS MD
--- NOTE | 2020-01-07 17:52 | ED.VIS.GI ---
History of Present Illness Chief Complaint: Abd Pain Informant: Patient - Abdominal Pain/Flank Pain Onset: Days - 2 Context: Gradual Onset - After surgery 2-3 days ago Timing: Continuous Quality: Aching Location: Epigastric - Radiating some into mid chest and low back, nonlateralizing Current Severity: Moderate Maximum Severity: Moderate Worsened by: Nothing Relieved by: Nothing - Nausea/Vomiting/Emesis GI Symptom: Negative for: Nausea, Vomiting - Diarrhea/Melena/Hematochezia GI Symptom: Negative for: Diarrhea, Melena, Hematochezia Associated Symptoms: - - Anuric. No fevers or chills. Narrative: Patient had polycystic kidney disease, bilateral nephrectomy, and is on home hemodialysis with a Port-A-Cath, her vascular graft in her left upper extremity clotted off, and she had surgery 3 days ago at [facility] to repair it. She states they did not provide general anesthesia, but they gave her something to days her, and numb her left upper extremity. The next day she had epigastric discomfort which has been persistent since then. This is her first visit to a physician since then although she has made several phone calls. She has tried no medications for this at home, but has been taking her prescriptions as directed, which include Eliquis. She has had no numbness in the left upper extremity since the block wore off. She has had a bowel movement the day after surgery, and passing some gas since then. The bowel movement seemed normal without any melena or blood. She does not urinate since she had a bilateral nephrectomy. She denies any shortness of breath, nausea, vomiting. States she feels bloated in her upper abdomen. She has a poor appetite. No loss of smell or taste. No cough. No contact with anyone with COVID-19 that she knows of. - Past Medical History (1) End stage renal failure on dialysis Status: Chronic (2) Gout Status: Chronic (3) Polycystic kidney disease Status: Chronic Past Medical History - Allergies and Home Meds Allergies/Adverse Reactions: Allergies cephalexin Allergy (Mild, Verified 01/07/20 16:52) rash Penicillins Allergy (Verified 01/07/20 16:52) Rash codeine Adverse Reaction (Verified 01/07/20 16:52) Nausea Primary Care Physician: Oswaldo Horan MD [Primary Care Provider] - Surgical History: cholecystectomy, - - bilat nephrectomy Lives: Spouse/ Significant Other Smoking Status: Former smoker - Family History Maternal Family History: Family History (Last Updated 12/27/19 @ 14:17 by Viridiana Adam) Father Aneurysm Family History: Reports: - - Denies maternal cardiac history or other significant medical history. Paternal Family History: Family History (Last Updated 12/27/19 @ 14:17 by Viridiana Adam) Father Aneurysm Family History: Reports: - - Polycystic kidney disease Review of Systems General: Denies: Chills, Fever, Sweats Eyes: Denies: Visual changes - bilaterally, Diplopia ENT: Denies: Rhinorrhea, Sore throat Cardiovascular: Reports: Chest pain. Denies: Palpitations Respiratory: Denies: Dyspnea, Cough, Dyspnea on exertion Gastrointestinal: Reports: Abdominal pain. Denies: Nausea, Vomiting, Diarrhea, Melena, Hematochezia Genitourinary: Denies: Dysuria, Hematuria, Frequency Musculoskeletal: Reports: Back pain. Denies: Neck pain, Swelling, Extremity Pain Skin: Denies: Rash, Wounds Neurological: Denies: Headache, Weakness, Numbness Physical Exam Vital Signs/Narrative: Vital Signs Temp Pulse Resp BP Pulse Ox 01/07/20 16:52 98.4 F 111 H 17 103/43 L 98 Inital Vital Signs reviewed: Yes General: Well nourished, Well developed, No Acute Distress Head: Normocephalic, Atraumatic Eyes: Perrl, EOMI ENT: Moist mucous membranes, No rhinorrhea Neck: Supple, Nontender Cardiovascular: Regular rate, Regular rhythm, No murmurs. Negative for: Tachycardia Respiratory: No distress, CTA bilaterally, Chest nontender Abdomen: Soft, Nontender, Normal bowel sounds, - - slightly distended, c/w bloating upper abd, no asymmetry, soft and NT. Negative for: Pulsatile mass Back: Nontender, Normal Inspection Extremities: Nontender, No edema, - - Left upper extremity surgical incisions clean dry intact with dressing, good thrill present good pulse distally. Negative for: Calf Tenderness Skin: Normal color, No rash, No Trauma Neurological: Alert, Oriented x3, Cranial nerves II-XII grossly intact, Normal Strength, Normal Sensation Psychological: Normal affect, Normal Mood Diagnostic/Tx/Re-eval Laboratory Results 01/07/20 01/07/20 17:45 17:45 WBC 12.3 H RBC 2.55 L Hgb 8.2 L Hct 24.8 L MCV 97.3 MCH 32.2 H MCHC 33.1 RDW Std Deviation 49.4 H RDW Coeff of Radha 14.0 Plt Count 364 MPV 10.4 Immature Gran % (Auto) 0.900 Neut % (Auto) 84.6 H Lymph % (Auto) 5.4 L Treasure % (Auto) 8.6 Eos % (Auto) 0.3 Baso % (Auto) 0.2 Absolute Neuts (auto) 10.4 H Absolute Lymphs (auto) 0.67 L Nucleated RBC % 0 Sodium 132 L Potassium 4.1 Chloride 95 L Carbon Dioxide 26.0 Anion Gap 11 BUN 75 H Creatinine 11.20 H* Estim Creat Clear Calc 3.98 Est GFR (MDRD) Af Amer 5 L Est GFR (MDRD) Non-Af 4 L BUN/Creatinine Ratio 6.7 L Glucose 102 Calcium 9.3 Troponin I < 0.015 - Rhythm Strip Rhythm Strip: Sinus Rhythm Rate: 90 Ectopy: None - EKG Initial EKG Interpretation: Sinus Rhythm, No Acute Injury Pattern, Non-Specific ST Changes - flattening diffusely Prior: Unchanged - Medical Decision Making Patient was given GI cocktail, Bentyl, simethicone. She does note improvement. She states she does have some pleuritic discomfort but it is epigastric and not chest. I suspect this is upper GI in etiology, and I do not think she needs a CT of the abdomen/pelvis right now. She has a very mild leukocytosis of 12, that is nonspecific. Her other abnormalities are chronic. I reassured her, we will place her on a two-week course of a PPI, and advised that she use Mylanta or Maalox and/or simethicone as needed at home for symptoms, if persistent to follow-up with her doctor and if worse or new symptoms occur, she is welcome to return to the ER for further evaluation. She is comfortable with this overall plan. ED Disposition - Plan for ED Patient: Disposition: Home or Assisted Living Diagnosis: Epigastric pain, Chest pain, unspecified Instructions: ED Epigastric Pain [facility] Prescriptions: Pantoprazole Sodium [Protonix] 40 mg PO DAILY #14 tab Prescription Printed Referrals: Marline,Oswaldo, MD [Primary Care Provider] - 3-5 Days if not improving
[2020-01-07 18:18] LABS: Absolute Lymphocyte Count 0.67 X10^3/uL (0.83-4.51); Absolute Neutrophil Count 10.4 X10^3/uL (2.0-7.7); Basophil# 0.03 X10^3/uL; Basophil% 0.2 % (0-1); Eosinophil# 0.04 X10^3/uL; Eosinophils% 0.3 % (0-5); Hematocrit 24.8 % (37-47); Hemoglobin 8.2 g/dL (12.0-15.0); Lymphocyte # 0.67 X10^3/ul (4.0); Lymphocyte % 5.4 % (19-41); Mean Corp Hgb Conc 33.1 g/dL (32-36); Mean Corpuscular Hgb 32.2 pg (27.0-32.0); Mean Corpuscular Volume 97.3 fL (81-99); Mean Platelet Vol. 10.4 fl (6.2-12.0); Monocyte# 1.06 X10^3/uL; Monocyte% 8.6 % (0-10); NRBC Flagged by Analyzer 0 % (0-5); Neutrophil # 10.43 X10^3/uL (2.7-7.7); Neutrophil % 84.6 % (47-70); Platelet Count 364 K/mm3 (150-450); RBC Distribution Width SD 49.4 fl (35.1-43.9); Red Blood Count 2.55 M/mm3 (4.2-5.4); White Blood Count 12.3 K/mm3 (4.4-11.0)
[2020-01-07] MEDS: Dicyclomine 10 MG Capsule 20 MG PO (18:39)
[2020-01-07 18:41] LABS: Anion Gap 11 (5-15); BUN 75 mg/dL (7-18); BUN/Creat Ratio 6.7 RATIO (10-20); Calcium,Total 9.3 mg/dL (8.5-10.1); Chloride 95 mmol/L (98-107); EST Glomerular Filtration Rate 4 mL/min (>60); Est Glom Filt Rate - Afr Amer 5 mL/min (>60); Estimated Creatinine Clearance 3.98 ml/min; Glucose 102 mg/dL (74-106); Potassium 4.1 mmol/L (3.5-5.1); Sodium Level 132 mmol/L (136-145)
[2020-01-07] MEDS: Mag Hydrox/Al Hydrox/Simeth 30 ML UDC PO (18:42)
[2020-01-07 18:45] VITALS: BP 75/53; PULSE 89; RESP 18; TEMP 36.9
[2020-01-07 20:32] VITALS: BP 68/48; PULSE 82; RESP 18; TEMP 37; O2SAT 98
[2020-01-07] MEDS: Pantoprazole Sodium 40 MG Tablet PO (21:02)
[2020-01-07 21:08] VITALS: BP 79/51; RESP 18
== END 2020-01-07 21:09 | disposition home or self-care (01) ==
PROVIDERS: Emergency Provider Emergency Medicine; PCP Family Medicine
DX: R10.13 Epigastric pain (principal); R07.9 Chest pain, unspecified; M10.9 Gout, unspecified; N18.6 End stage renal disease; Z99.2 Dependence on renal dialysis; Q61.3 Polycystic kidney, unspecified; Z87.891 Personal history of nicotine dependence; Z88.0 Allergy status to penicillin; Z88.5 Allergy status to narcotic agent; Z90.49 Acquired absence of other specified parts of digestive tract; Z90.5 Acquired absence of kidney
CPT/HCPCS: 80048; 84484; 85025; 93005; 99285; A4216

== ENCOUNTER → 2020-01-09 10:04 | Outpatient (CLI) | payer MEDICARE, OTHER, SELFPAY ==
[2020-01-07 16:52] VITALS: BMI 28.3
--- NOTE | 2020-01-09 10:08 | CT_ITS ---
STUDY: CTA CHEST REASON FOR EXAM: Female, 59 years old. R/O PE. ACHY PAIN IN CHEST. SX TO REMOVE BLOOD CLOTS OUT OF GRAFT IN ARM TUESDAY. RADIATION DOSAGE (If Supplied By Facility): CTDIvol = ( 10.02 ) mGy, DLP = ( 319.63 ) mGycm TECHNIQUE: The examination was performed with the intravenous administration of IV 100mL Isovue-370. Post-processing of the angiographic images was performed, with multiplanar reformation and 3D reconstruction. Individualized dose optimization techniques were used for this CT. COMPARISON: None. FINDINGS: Normal enhancement of the main pulmonary artery and right and left pulmonary arteries. Normal enhancement of the bilateral peripheral pulmonary arteries. There is no demonstrated pulmonary embolism. There is atherosclerotic calcification of the aortic arch with tortuosity. There is no demonstrated aortic dissection. Normal heart and pericardium. There are visualized mediastinal lymph nodes, which are within normal size limits, and with normal morphology. Normal hilar regions. Normal visualized trachea and bronchi. The lungs are well expanded. Minimal increased markings in the anterior aspect of the right middle lobe suggestive of atelectasis. Minimal atelectasis and/or infiltrate in the right lower lobe. Normal pleura. Normal chest wall structures. There are degenerative changes of thoracic spine. Multiple hypodense nodules are seen throughout the liver suggestive multiple cysts. This involves both the left and right lobes of the liver. Linear coarse calcifications are seen in the left lobe of the liver. There is inhomogeneous appearance of the superior aspect of the spleen with dense calcifications. CT/CTA Chest W/WO Contrast IMPRESSION: No evidence of pulmonary emboli. Mild degree of atelectasis in the anterior aspect of the right middle lobe and atelectasis and/or early infiltrate in the right lower. Multiple cystic lesions seen in the liver with the dense linear coarse calcification in the left lobe. Interval increase appearance of the spleen with areas of calcification and minimal density in its upper aspect. I suspect the patient to be post left nephrectomy. Electronically Signed: Jourdan Marquis, at 10:41 EDT , Service support ,
== END ==
PROVIDERS: PCP Family Medicine; Referring Provider Internal Medicine Nephrology; Visit Provider Internal Medicine Nephrology
DX: I70.0 Atherosclerosis of aorta (principal); Q25.46 Tortuous aortic arch
CPT/HCPCS: 71275; Q9967; A4216

== ENCOUNTER → 2020-02-19 06:57 | Outpatient (CLI) | payer MEDICARE, OTHER, SELFPAY ==
--- NOTE | 2020-02-19 09:24 | STRESSREP ---
Stress Test Report Date: 02-19-2020 Procedure: Exercise tolerance test/imaging study Indications: End-stage renal disease; pre-renal transplant evaluation Consent: Per the patient Procedure: The patient exercised on a Tono protocol for 5 minutes and 32 seconds completing Stage I and 1 minute and 32 seconds of Stage II achieving a peak heart rate of 141 bpm (86 % predicted maximal heart rate) with a peak blood pressure 130/68 mmHg and a peak MET capacity of 7 METs. The baseline ECG demonstrated normal sinus rhythm. The peak exercise ECG demonstrated no obvious ECG changes. There were no cardiac dysrhythmias pretest, during exercise, or recovery. The functional capacity was considered average. There was no complaint of chest discomfort during exercise or recovery. The examination was discontinued secondary to fatigue. Impression: 1. Technically adequate (percent predicted maximal heart rate greater than 85%) exercise tolerance test 2. Peak exercise ECG with no obvious ECG changes 3. There were no cardiac dysrhythmias pretest, during exercise, or recovery 4. Nuclear images pending Myocardial perfusion imaging study: Technique: The patient was injected with 11.3 mCi of technetium 99m Cardiolite and subsequently rest SPECT Cardiolite nuclear imaging was obtained in the horizontal long, vertical long, and short axis views. The patient exercised on a Tono protocol for 5 minutes and 32 seconds completing Stage I and 1 minute and 32 seconds of Stage II achieving a peak heart rate of 141 bpm (86 % predicted maximal heart rate) with a peak blood pressure 130/68 mmHg and a peak MET capacity of 7 METs. The patient was injected with 34.0 mCi of technetium 99m Cardiolite and subsequently stress SPECT Cardiolite nuclear imaging was obtained in the horizontal long, vertical long, and short axis views. A gated Cardiolite study at peak stress was obtained. Interpretation: Rest and stress SPECT Cardiolite nuclear imaging status post realignment, normalization, and attenuation correction, demonstrates the appearance of relative uniform tracer uptake and myocardial perfusion appearing within normal limits. There is end systolic thickening and brightening. The gated Cardiolite study demonstrates myocardial thickening and inward wall motion. The reported LVEF is 72 %. Impression: 1. Rest and stress SPECT Cardiolite nuclear imaging demonstrate relative uniform tracer uptake and myocardial perfusion appearing within normal limits. 2. The gated Cardiolite study reports an LVEF of 72 %. This note was generated with [employer] software. It may contain incorrect words, spelling, and punctuation that were not noted in checking the note before signing.
== END ==
PROVIDERS: PCP Family Medicine; Referring Provider Internal Medicine Nephrology; Visit Provider Internal Medicine Nephrology
DX: Z01.810 Encounter for preprocedural cardiovascular examination (principal); N18.6 End stage renal disease
CPT/HCPCS: 78452; 93017; A9500; A4216

== ENCOUNTER 2020-03-20 13:00 | Outpatient (RCR) | payer MEDICARE, OTHER, SELFPAY ==
--- NOTE | 2020-02-26 09:03 | HP.PTEVAL ---
Patient's Visit Information GIUSEPPE XAVIER is a 59 year old F referred to Physical Therapy by Dr. Raphael Russell MD with a diagnosis of R ARM/SHLD PAIN, TIGHT NECK MUSCLES, THORACIC OUTLET SYNDROME. Date of Evaluation: 02/26/20 Physical Therapist: Zara Og, PT, Cert MDT - Visit Plan Frequency: 2x /Week Duration: 4 Weeks Plan: CERVICAL AND/OR RIGHT SHLD US, MH OR CP NEEDED. POSTURE CORRECTION/STRENGTHENING, INSTRUCTION IN APPROPRIATE BODY MECHANICS AND ACTIVITY MODIFICATIONS. KIMBERLEE UE ROM, STRETCHING AND STRENGTHENING. HEP INSTRUCTION. - Subjective Work/Leisure: UNEMPLOYEED. Disability: YES. Present symptoms: RIGHT SHOULDER, SHOULDER BLADE AND UPPER ARM PAIN. USUALLY DOESN'T FEEL IT IN FOREARM OR HAND BUT SOMETIMES THEY FEEL ACHY. INTERMITTENT NECK PAIN BUT NOT SEVERE. SOMETIMES SOME NUMBNESS IN FINGERS (IT HAPPENS IN BOTH HANDS AND HAS HAPPENED BEFORE). Present since: ABOUT 2 WEEKS AGO. Pain Scale: Worst - 8/10 Least - 0/10. Currently: 5/10. Commenced as a result of: NO APPARENT REASON. Symptoms at onset: BURNING AND PAIN IN UPPER ARM. Worse: ALWAYS WHEN I GO TO BED. IF RIGHT INSIDE ELBOW IS TOUCHING SOMETHING IT STARTS THE ACHE. SOMETIMES JUST SITTING. HARD TO REACH BACK TO PUT BRA ON IN AND TO REACH UP. PAIN IN ALMOST ANY POSITION WHEN GOES TO BED. NIGHT IS THE WORST TIME. PAIN MAKES IT DIFFICULT TO GO TO SLEEP AND STAY ASLEEP. Better: TAKE THE PRESSURE OFF THE ELBOW BUT THAT IS ABOUT IT. PATIENT REPORTS PAIN FEELS DEEP INSIDE. NO PRESCRIBED MEDICATIONS. TRIED A LITTLE BIT OF OTC TYLONOL BUT DIDN'T SEEM TO HELP. Disturbed sleep: YES. Previous history/Previous treatment: UNREMARKABLE. This episode: PT ORDER. Dizziness: NO. Tinnitis: NO. Nausea: SOMETIMES WHEN IT STARTS PAINING I GET SICK TO MY STOMACH. Shortness of Breath: NO. Difficulty Swollowing: NO. Gait: NORMAL. Accidents: NO. Unexplained weight loss: NO. Imaging: NO. PMH/Recent major surgery: SEE BELOW. - Objective Sitting Posture/Standing Posture: POOR. Active Correction of posture: NE. Other Observations: INDEP GAIT AND TRANSFERS. Motor deficit: LEFT UE WFL. RIGHT SHLD WEAKNESS ALL PLANES GROSSLY 3-/5. Sensory deficit: KIMBERLEE UE LIGHT TOUCH SENSATION INTACT AND SYMMETRICAL. ROM deficit: LEFT UE WFL. RIGHT UE SHLD ELEVATION PAINFUL AND LIMITED TO 107 DEG ACTIVELY. SUPINE PASSIVE ROM RIGHT SHLD FLEXION TO 145 DEG. PATIENT HAS PAIN WITH RIGHT SHLD ROM TESTING ACTIVELY AND PASSIVELY BUT MORE SO ACTIVELY. Reflexes: KIMBERLEE UE'S 2/3. Dural Signs: POSITIVE RIGHT UE. Cervical Mvmt Loss: Flex: NIL. Pro: NIL. Ext: MIN. Ret: MOD. RSB: MIN. LSB: MOD - PROVOKES RIGHT NECK PAIN. R Rot: MIN. L Rot: MIN. PATIENT HAS PRETTY GOOD NECK ROM AND ROM TESTING DOES NOT APPEAR TO AFFECT HER PAIN EXCEPT LEFT SB. Postural strength: POOR. Palpation: SORENESS, TENDERNESS AND TIGHTNESS RIGHT UPPER TRAP REGION. PATIENT IS ALSO TENDER IN THE ENTIRE RIGHT UPPER 1/2 OR MORE OF THE RIGHT ARM. OTHER: SEATED CERVICAL DISTRACTION TESTING - NE EFFECT OTHER THAN TENDERNESS RIGHT UPPER TRAP REGION. TREATMENT: NEUROMUSCULAR REEDUCATION - RETRAINING OF MVMT AND POSTURE FOR SITTING, LYING AND STANDING ACTIVITIES. INST IN SUPINE WAND FLEXION FOR ROM TOLERATED. - Goals Goal 1:: DECREASE C/O NECK AND RIGHT UE SX'S. Goal Time Frame: 4-6 Weeks Goal 2:: IMPROVE PERSONAL CARE, LIFTING, SLEP, WORK AND RECREATIONAL FUNCTION Goal Time Frame: 4-6 Weeks Goal 3:: INSTRUCT IN PROPHYLAXIS Goal Time Frame: 4-6 Weeks - Anticipated Interventions Patient/Client Instruction: Educate patient on: Condition, Plan of Care, Risk Factors, Benefits of Fitness Program For the Purpose of:: To improve self management Therapeutic Exercise to Include: Strength training, Body mechanics, Postural training, Flexibilty training, Neuromotor development, Active ROM, Scapular Strength/Stabilization For the Purpose of:: To decrease pain, To increase ROM, To improve muscle performance and motor function, To increase tolerance to activity/condition/position, To improve ability of physical actions for home/community/work/leisure Cryotherapy (ice pack, ice massage): Yes Thermo therapy (hot pack): Yes Ultrasound (thermal/non thermal): Yes For the Purpose of:: To decrease pain, To improve nutrient delivery to tissue Thank you for the opportunity to evaluate your patient. For Medicare and Medicare HMO plans, please review the plan of care and approve it. It will need to be FAXED BACK to us at [phone] for Medicare purposes. For Medicare only, by signing this I certify the plan of care. Please let me know if there are questions or concerns regarding this plan of care. Physician Signature: Date:
--- NOTE | 2020-06-11 10:49 | HP.PT.NRP ---
GIUSEPPE XAVIER was seen in my office for initial evaluation on 02/26/20. The following Plan of Care was established for this patient: Initial Frequency: 2x /Week Initial Duration: 4 Weeks Patient/Client Instruction: Educate patient on: Condition, Plan of Care, Risk Factors, Benefits of Fitness Program For the Purpose of:: To improve self management Therapeutic Exercise to Include: Strength training, Body mechanics, Postural training, Flexibilty training, Neuromotor development, Active ROM, Scapular Strength/Stabilization For the Purpose of:: To decrease pain, To increase ROM, To improve muscle performance and motor function, To increase tolerance to activity/condition/position, To improve ability of physical actions for home/community/work/leisure Cryotherapy (ice pack, ice massage): Yes Thermo therapy (hot pack): Yes Ultrasound (thermal/non thermal): Yes For the Purpose of:: To decrease pain, To improve nutrient delivery to tissue This patient was last seen in our office 03/20/20. Pertinent comments regarding their Physical therapy will appear below: This patient has not returned to Physical Therapy and is appropriate to return to MD for further follow-up as needed. At this point I will be discontinuing this patient from physical therapy. I would be happy to see this patient again in the future if found appropriate by the physician. Thank you! Zara Og, PT, Cert MDT
== END 2020-03-20 19:00 | disposition home or self-care (01) ==
LOC: PT 13:00
PROVIDERS: PCP Family Medicine; Referring Provider Family Medicine; Visit Provider Family Medicine
DX: M25.511 Pain in right shoulder (principal); M62.838 Other muscle spasm; G54.0 Brachial plexus disorders
CPT/HCPCS: 97035; 97110; 97112; 97140; 97162; 97530

== ENCOUNTER 2020-03-24 19:36 | Inpatient (IN) | payer MEDICARE, OTHER, SELFPAY ==
[2020-03-24 19:40] VITALS: BP 120/72; PULSE 85; RESP 19; TEMP 37.7; O2SAT 98; BMI 28.0
--- NOTE | 2020-03-24 19:50 | EKG12_ITS ---
Test Reason : FEVER Blood Pressure : / mmHG Vent. Rate : 083 BPM Atrial Rate : 083 BPM P-R Int : 138 ms QRS Dur : 072 ms QT Int : 374 ms P-R-T Axes : 049 -03 050 degrees QTc Int : 439 ms Normal sinus rhythm Nonspecific ST abnormality Abnormal ECG Confirmed by LAKSHMI YING, ANDREW ([id number]), editorial assistant KIMMY LAMB ([id number]) on 03/25/2020 9:06:18 AM Referred By: Andrew Driscoll Confirmed By:ANDREW MARTINS MD
[2020-03-24 19:51] VITALS: BP 126/73; PULSE 85; RESP 15; TEMP 37.7; O2SAT 98
--- NOTE | 2020-03-24 19:51 | ED.DCSUM_ITS ---
History of Present Illness Chief Complaint: Fever Informant: Patient Onset: Days - 2 days Context: Gradual Onset Current Severity: Moderate Maximum Severity: Moderate Narrative: Patient presents secondary to fever. Patient does have history of chronic polycystic kidney disease and end-stage renal disease on dialysis. She reports that she last had dialysis on the . She complains of fatigue and wanting to sleep a lot. She denies URI symptoms. She denies cough or shortness of breath. She does report diffuse abdominal pain but no vomiting or diarrhea. She has not had an interest in food. She does not make urine. Patient does do hemodialysis at home states her only visits out of the home was to physical therapy 2 days last week. - Past Medical History (1) End stage renal failure on dialysis Status: Chronic (2) Polycystic kidney disease Status: Chronic Past Medical History - Allergies and Home Meds Allergies/Adverse Reactions: Allergies cephalexin Allergy (Mild, Verified 03/24/20 19:54) rash Penicillins Allergy (Verified 03/24/20 19:54) Rash codeine Adverse Reaction (Verified 03/24/20 19:54) Nausea Primary Care Physician: Raphael Russell MD [Primary Care Provider] - Prior records reviewed: Yes Surgical History: cholecystectomy, - - bilat nephrectomy Lives: Spouse/ Significant Other Smoking Status: Never smoker - Family History Maternal Family History: Family History (Last Updated 12/27/19 @ 14:17 by Viridiana Adam) Father Aneurysm Family History: Reports: - - Denies maternal cardiac history or other significant medical history. Paternal Family History: Family History (Last Updated 12/27/19 @ 14:17 by Viridiana Adam) Father Aneurysm Family History: Reports: - - Polycystic kidney disease Review of Systems General: Reports: Fever - Max 103 Eyes: Denies: Visual changes - bilaterally ENT: Denies: Bilateral ear pain Cardiovascular: Denies: Chest pain Respiratory: Denies: Dyspnea, Cough Gastrointestinal: Reports: Abdominal pain. Denies: Vomiting, Diarrhea Musculoskeletal: Reports: Myalgias Skin: Denies: Rash Neurological: Denies: Headache Hematologic: Denies: Easy bruising, Easy bleeding Allergy: Denies: Uticaria Physical Exam Vital Signs/Narrative: Vital Signs Temp Pulse Resp BP Pulse Ox 03/24/20 19:40 99.8 F H 85 19 H 120/72 98 Inital Vital Signs reviewed: Yes General: Well nourished, Well developed Head: Normocephalic ENT: Moist mucous membranes Neck: Supple Cardiovascular: Regular rate, Regular rhythm Respiratory: No distress, CTA bilaterally Abdomen: Soft, Tender - Mild diffuse tenderness to palpation.. Negative for: Guarding, Rebound tenderness Extremities: Nontender Skin: Normal color Neurological: Alert, Oriented x3 Psychological: Normal affect Diagnostic/Tx/Re-eval Impressions Chest X-Ray 03/24/20 20:10 IMPRESSION: 1. Small left pleural effusion. 2. Hemodialysis catheter. 3. Vascular stenting in the left axilla. Electronically Signed: Anival Anne DO at 21:02 EDT Tel [phone], Service support , Abdomen/Pelvis CT 03/24/20 20:53 IMPRESSION: 1. Status post bilateral nephrectomies. 2. Cystic changes and calcifications throughout the liver. 3. Calcified uterine fibroid. 4. Atherosclerotic changes of the thoracic aorta without aneurysm. Electronically Signed: Anival Anne DO at 23:21 EDT Tel [phone], Service support , 03/24/20 20:10 Chest 1 View (Portable) [RAD] Stat 03/24/20 20:53 Abdomen/Pelvis without Cont [CT] Stat 03/24/20 20:00 Mucosa - Nose Respiratory Panel (PCR) - Final Laboratory Results 03/24/20 03/24/20 03/24/20 19:55 19:55 19:55 WBC 16.1 H RBC 3.39 L Hgb 10.2 L Hct 32.1 L MCV 94.7 MCH 30.1 MCHC 31.8 L RDW Std Deviation 57.4 H RDW Coeff of Radha 16.6 H Plt Count 284 MPV 10.2 Immature Gran % (Auto) 0.400 Neut % (Auto) 89.0 H Lymph % (Auto) 2.2 L [place] % (Auto) 8.2 Eos % (Auto) 0.0 Baso % (Auto) 0.2 Absolute Neuts (auto) 14.4 H Absolute Lymphs (auto) 0.36 L Nucleated RBC % 0 Differential Comment SEE COMMENT Platelet Estimate ADEQUATE RBC Morphology N CHROM Anisocytosis RARE Macrocytosis RARE Sodium 134 L Potassium 4.2 Chloride 96 L Carbon Dioxide 25.0 Anion Gap 13 BUN 53 H Creatinine 12.30 H* Estim Creat Clear Calc 3.62 Est GFR (MDRD) Af Amer 4 L Est GFR (MDRD) Non-Af 3 L BUN/Creatinine Ratio 4.3 L Glucose 116 H Lactic Acid 1.5 Calcium 8.4 L Total Bilirubin 0.40 Direct Bilirubin 0.13 AST 15 ALT 13 Alkaline Phosphatase 110 Total Protein 6.3 L Albumin 2.3 L Globulin 4.0 Lipase 134 COVID-19 ([facility]) 03/24/20 20:00 WBC RBC Hgb Hct MCV MCH MCHC RDW Std Deviation RDW Coeff of Radha Plt Count MPV Immature Gran % (Auto) Neut % (Auto) Lymph % (Auto) [place] % (Auto) Eos % (Auto) Baso % (Auto) Absolute Neuts (auto) Absolute Lymphs (auto) Nucleated RBC % Differential Comment Platelet Estimate RBC Morphology Anisocytosis Macrocytosis Sodium Potassium Chloride Carbon Dioxide Anion Gap BUN Creatinine Estim Creat Clear Calc Est GFR (MDRD) Af Amer Est GFR (MDRD) Non-Af BUN/Creatinine Ratio Glucose Lactic Acid Calcium Total Bilirubin Direct Bilirubin AST ALT Alkaline Phosphatase Total Protein Albumin Globulin Lipase COVID-19 ([facility]) Not Detected - EKG Initial EKG Interpretation: Sinus Rhythm - Sinus 83 no acute ischemia. - Medical Decision Making Patient observed on cardiac specialist throughout her ED stay has been hemodynamically stable. White count is significantly elevated. Creatinine is elevated and patient is due for her dialysis. Potassium is normal. Blood cultures have been sent. At this time we will cover patient with meropenem and vancomycin as she does have documented allergies to both penicillin and cephalosporins. We will speak with hospitalist regarding admission. ED Disposition - Plan for ED Patient: Disposition: Acute Care Hospital [facility] Diagnosis: Sepsis Referrals: Raphael Russell MD [Primary Care Provider] -
--- NOTE | 2020-03-24 20:10 | RAD_ITS ---
STUDY: X-RAY CHEST REASON FOR EXAM: Female, 59 years old. Fever. Weakness. TECHNIQUE: Single AP portable view of the chest. COMPARISON: 08/03/2018. FINDINGS: There is a left jugular hemodialysis catheter with its tip in the atrial caval junction. There is a vascular stent in the left axilla and upper arm thought to be venous. The lungs are well expanded. There is a left pleural effusion. There is no infiltrate or mass. Normal size heart. Normal mediastinum and laxmi. Normal visualized pulmonary arteries. There is atherosclerotic calcification of the aortic arch with tortuosity. No visualized osseous changes. There is no demonstrated abnormality of the visualized soft tissue structures of the upper abdomen. RAD/Chest 1 View (Portable) IMPRESSION: 1. Small left pleural effusion. 2. Hemodialysis catheter. 3. Vascular stenting in the left axilla. Electronically Signed: Anival Anne DO at 21:02 EDT Tel [phone], Service support ,
[2020-03-24 20:35] LABS: Absolute Lymphocyte Count 0.36 X10^3/uL (0.83-4.51); Absolute Neutrophil Count 14.4 X10^3/uL (2.0-7.7); Basophil# 0.03 X10^3/uL; Basophil% 0.2 % (0-1); Hematocrit 32.1 % (37-47); Hemoglobin 10.2 g/dL (12.0-15.0); Lymphocyte # 0.36 X10^3/ul (4.0); Lymphocyte % 2.2 % (19-41); Mean Corp Hgb Conc 31.8 g/dL (32-36); Mean Corpuscular Hgb 30.1 pg (27.0-32.0); Mean Corpuscular Volume 94.7 fL (81-99); Mean Platelet Vol. 10.2 fl (6.2-12.0); Monocyte# 1.33 X10^3/uL; Monocyte% 8.2 % (0-10); NRBC Flagged by Analyzer 0 % (0-5); Neutrophil # 14.35 X10^3/uL (2.7-7.7); POSITIVE DIFFERENTIAL YES; Platelet Count 284 K/mm3 (150-450); RBC Distribution Width CV 16.6 % (11.6-14.6); RBC Distribution Width SD 57.4 fl (35.1-43.9); Red Blood Count 3.39 M/mm3 (4.2-5.4); White Blood Count 16.1 K/mm3 (4.4-11.0)
[2020-03-24 20:36] VITALS: BP 161/88; PULSE 71; RESP 22; O2SAT 97
[2020-03-24 20:51] LABS: Differential Indicated SCAN CRITERIA MET
--- NOTE | 2020-03-24 20:53 | CT_ITS ---
STUDY: CT ABDOMEN AND PELVIS WITHOUT CONTRAST REASON FOR EXAM: Female, 59 years old. Weakness. Fever. Dialysis patient. History of gallbladder and kidney disease. RADIATION DOSAGE (If Supplied By Facility): CTDIvol = ( 6.22 ) mGy, DLP = ( 332.44 ) mGycm TECHNIQUE: Transaxial images were obtained from the dome of the diaphragm to the symphysis pubis without oral contrast, and without intravenous contrast. Sagittal and coronal images were reconstructed. Individualized dose optimization techniques were used for this CT. COMPARISON: CTA of the chest, 01/09/2020 FINDINGS: There are small bilateral pleural effusions, left greater than right with subsegmental atelectasis. The visualized portions of the heart are within normal limits. Large bore catheter in the IVC. There are multiple cysts throughout the liver as well as irregular calcifications. This is stable when compared to the chest CT. There are calcifications and cystic changes beneath the left hemidiaphragm thought to be an in prominent left lateral lobe of the liver. This is again unchanged from the previous exam. There are surgical clips in the gallbladder fossa consistent with a prior cholecystectomy. Normal pancreas. Normal bilateral adrenal glands. There is surgical absence of both kidneys. Normal visualized stomach. Normal small intestine. Normal colon. The appendix is visualized and appears normal. There is diffuse atherosclerotic calcification of the abdominal aorta, without a demonstrated aneurysm. Normal inferior vena cava. Normal retroperitoneum. Normal urinary bladder. The uterus is of normal size and contour. There is an exophytic calcification of the anterior right fundus thought to be a fibroid. There is no adnexal mass. No pelvic lymphadenopathy. No free air or free fluid is seen within the peritoneal cavity. Normal abdominal wall. There are diffuse degenerative changes of the visualized lumbar spine. CT/Abdomen/Pelvis without Cont IMPRESSION: 1. Status post bilateral nephrectomies. 2. Cystic changes and calcifications throughout the liver. 3. Calcified uterine fibroid. 4. Atherosclerotic changes of the thoracic aorta without aneurysm. Electronically Signed: Anival Anne DO at 23:21 EDT Tel [phone], Service support ,
[2020-03-24 20:56] LABS: AST(SGOT) 15 U/L (15-37); Alanine Aminotransfer ALT/SGPT 13 U/L (13-56); Albumin, Serum 2.3 g/dL (3.2-5.0); Alkaline Phosphatase 110 U/L (45-117); Anion Gap 13 (5-15); BUN 53 mg/dL (7-18); BUN/Creat Ratio 4.3 RATIO (10-20); Bilirubin, Direct 0.13 mg/dL (0.00-0.30); Calcium,Total 8.4 mg/dL (8.5-10.1); Chloride 96 mmol/L (98-107); EST Glomerular Filtration Rate 3 mL/min (>60); Est Glom Filt Rate - Afr Amer 4 mL/min (>60); Estimated Creatinine Clearance 3.62 ml/min; Glucose 116 mg/dL (74-106); Lipase 134 U/L (73-393); Potassium 4.2 mmol/L (3.5-5.1); Protein, Total 6.3 g/dL (6.4-8.2); Sodium Level 134 mmol/L (136-145)
[2020-03-24 21:00] VITALS: BP 119/67; PULSE 79; RESP 23; TEMP 37.6; O2SAT 98
[2020-03-24 21:00] LABS: Lactic Acid 1.5 mmol/L (0.4-1.9)
[2020-03-24 21:18] LABS: Anisocytosis RARE; Macrocytosis RARE; Platelet Estimate ADEQUATE (ADEQ); Red Cell Morphology N CHROM NORMAL (NORM C&C)
[2020-03-24 22:00] VITALS: BP 116/99; BP 117/71; PULSE 84; RESP 16; TEMP 37.2; O2SAT 98
[2020-03-24 23:00] VITALS: BP 117/71; PULSE 80; RESP 14; TEMP 37.3; O2SAT 97
[2020-03-24] MEDS: fentaNYL 100 MCG/2 ML Ampul 25 MCG IV (23:40)
[2020-03-25] VITALS (16 sets, daily range): BP systolic 98–135; BP diastolic 51–95; PULSE 65–84; RESP 17–23; TEMP 36.7–38.6; O2SAT 94–100; BMI 28.0; BMI 28.1
--- NOTE | 2020-03-25 00:26 | PCM.HP.STD ---
Problem List (1) Sepsis Status: Acute (2) Chronic pain Status: Chronic (3) Gout Status: Chronic (4) Polycystic kidney disease Status: Chronic (5) End stage renal failure on dialysis Status: Chronic History of Present Illness Date of Admission: 03/25/20 Chief Complaint: generalized weakness, abdominal pain, fever The patient is a 59 year old female patient with a significant past medical history of polycystic kidney disease status post bilateral nephrectomies who is on dialysis for the past 6 years presents to the emergency room with fever of 2 days and generalized weakness. Her last dialysis was done this past Tuesday and she is now overdue. The patient complains of left lower quadrant abdominal pain however CT scan is unremarkable for findings of acute diverticulitis or other etiologies in that region of the abdomen. CBC shows an elevated white blood cell count of 18,000 with a left shift and the patient does have a fever of 100 degrees. She will be admitted to the progressive care unit for management of fever with unknown source at this time she was given vancomycin and meropenem due to her complex allergy profile. 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 Past Medical History Past Medical History (Chronic Problems): Chronic Problems (Last Reviewed 12/27/19 @ 14:15 by Viridiana Adam) Chronic pain (Chronic) Gout (Chronic) Polycystic kidney disease (Chronic) End stage renal failure on dialysis (Chronic) Medical History: Medical History (Last Reviewed 12/27/19 @ 14:15 by Viridiana Adam) Hay fever (Acute) J30.1 Chronic pain (Chronic) G89.29 Gout (Chronic) M10.9 Allergies cephalexin Allergy (Mild, Verified 03/24/20 19:54) rash Penicillins Allergy (Verified 03/24/20 19:54) Rash codeine Adverse Reaction (Verified 03/24/20 19:54) Nausea Home Medications: Ambulatory Orders Medication Instructions Recorded Allopurinol [Zyloprim] 100 mg PO MOWEFR 09/01/16 Ondansetron HCl [Zofran] 4 mg PO PRN PRN 09/01/16 Oxycodone [Oxyir] 5 - 10 mg PO Q4H PRN PRN 09/01/16 albuterol sulfate 90 mcg/actuation 2 puff INHALATION Q6H PRN 12/27/19 aerosol inhaler apixaban 5 mg tablet 5 mg PO BID 12/27/19 docusate sodium 100 mg capsule 100 mg PO BID 12/27/19 Sevelamer Carbonate 800 mg PO TID 01/07/20 B Complex W-C No.20/Folic Acid 1 mg PO DAILY 03/24/20 [Renal Caps Softgel] Surgical History: Surgical History (Last Updated 12/27/19 @ 14:16 by Viridiana Adam) History of Z98.891 x2 S/P cholecystectomy Z90.49 S/p nephrectomy Z90.5 bilateral s/p port placement Surgical History: cholecystectomy, - - bilat nephrectomy Psychiatric History: No pertinent psych hx [employer]ING [employer]ICIAN History: No pertinent 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 Paternal Family History: Family History (Last Updated 12/27/19 @ 14:17 by Viridiana Adam) Father Aneurysm History Items: - - Polycystic kidney disease Review of Systems Constitutional: Reports: Chills, Fever, Malaise, Weakness, Fatigue. Denies: Weight Change HEENT: Denies: Head Aches, Sinus Congestion, Sinus Drainage Cardiovascular: Denies: Chest Pain, Palpitations Respiratory: Denies: Cough, Shortness of breath at rest, Sputum production Gastrointestinal: Reports: Abdominal Pain - llq. Denies: Nausea, Vomiting Genitourinary: Denies: Dysuria Musculoskeletal: Denies: Joint Pain, Joint Tenderness Skin: Denies: Rash, Wounds Neurological: Denies: Numbness, Tingling, Focal weakness Psychiatric: Denies: Anxiety, Depression, Homicidal Ideations, Suicidal Ideations Hematologic/ Lymphatic: Denies: Easy Bruising, Easy Bleeding VTE Information - Inpt Only VTE Present on Admission: No VTE Mechan Device Prophylaxis: SCD's VTE Pharm Prophylaxis ordered?: No Patient Problems: Active and Suspected Problems (Last Reviewed 12/27/19 @ 14:15 by Viridiana Adam) Sepsis (Acute) - Physical Exam Vitals/I&O's: Vital Signs Temp Pulse Resp BP Pulse Ox 100.9 F H 78 23 H 129/77 H 98 03/25/20 00:07 03/25/20 00:07 03/25/20 00:07 03/25/20 00:07 03/25/20 00:07 Oxygen Delivery Method Room Air Weight: 143 lb 4.807 oz Body Mass Index (BMI) 28.0 General: Alert, Oriented x3, Cooperative HEENT: Atraumatic, Normocephalic Neck: Supple Lungs: Clear to auscultation, Normal air movement Cardiovascular: Regular rate, Normal S1, Normal S2, No murmurs Abdomen: Bowel Sounds Present, Soft, Tender - mild llq no guarding Extremities: Capillary Refill Less than 3 Seconds, Edema - trace Skin: No rashes Musculoskeletal: No Tenderness to Palpation of Joints or Extremities Neurological: Neuro grossly intact Psych/Mental Status: Normal Affect, Appropriate Microbiology Past 72 Hours 03/24/20 20:00 Mucosa - Nose Respiratory Panel (PCR) - Final Laboratory Results 03/24/20 19:55: WBC 16.1 H, RBC 3.39 L, Hgb 10.2 L, Hct 32.1 L, MCV 94.7, MCH 30.1, MCHC 31.8 L, RDW Std Deviation 57.4 H, RDW Coeff of Radha 16.6 H, Plt Count 284, MPV 10.2, Immature Gran % (Auto) 0.400, Neut % (Auto) 89.0 H, Lymph % (Auto) 2.2 L, [place] % (Auto) 8.2, Eos % (Auto) 0.0, Baso % (Auto) 0.2, Absolute Neuts (auto) 14.4 H, Absolute Lymphs (auto) 0.36 L, Nucleated RBC % 0, Differential Comment SEE COMMENT, Platelet Estimate ADEQUATE, RBC Morphology N CHROM, Anisocytosis RARE, Macrocytosis RARE 03/24/20 19:55: Sodium 134 L, Potassium 4.2, Chloride 96 L, Carbon Dioxide 25.0, Anion Gap 13, BUN 53 H, Creatinine 12.30 H*, Estim Creat Clear Calc 3.62, Est GFR (MDRD) Af Amer 4 L, Est GFR (MDRD) Non-Af 3 L, BUN/Creatinine Ratio 4.3 L, Glucose 116 H, Calcium 8.4 L, Total Bilirubin 0.40, Direct Bilirubin 0.13, AST 15, ALT 13, Alkaline Phosphatase 110, Total Protein 6.3 L, Albumin 2.3 L, Globulin 4.0, Lipase 134 03/24/20 19:55: Lactic Acid 1.5 03/24/20 20:00: COVID-19 ([facility]) Not Detected Current Medications Vancomycin HCl 1,750 mg/ (Sodium Chloride) 535 mls @ 250 mls/hr IV X1 ONE Stop: 03/25/20 01:38 Assessment/Plan All Active Problems (Last Reviewed 12/27/19 @ 14:15 by Viridiana Adam) Sepsis (Acute) Hay fever (Acute) Chronic Problems (Last Reviewed 12/27/19 @ 14:15 by Viridiana Adam) Chronic pain (Chronic) Gout (Chronic) Polycystic kidney disease (Chronic) End stage renal failure on dialysis (Chronic) Plan 1. Febrile illness with unknown source?broad-spectrum antibiotics including vancomycin and meropenem due to complex allergy profile, repeat CBC in the morning, gentle hydration due to kidney nephrectomies and dialysis dependency 2. Left lower quadrant abdominal pain?CT scan negative for acute etiology or findings in that area, patient may have Tylenol as needed for now for her abdominal discomfort 3. Renal nephrectomy secondary to polycystic kidney disease?consult Dr. Lau for dialysis 4. DVT prophylaxis?SCDs Inpatient E&M: 77550 Init Hosp L3
--- NOTE | 2020-03-25 01:46 | NURSING ---
Shamika Nursing Twister Operator called and said pt was to go to PCU 6. Will initiate transfer.
[2020-03-25] MEDS: Acetaminophen 325 MG Tablet 650 MG PO ×2 (01:47→22:20)
[2020-03-25] MEDS: Ibuprofen 400 MG Tablet PO ×2 (05:40→17:57)
[2020-03-25] MEDS: 0.9% Saline Lock 10 ML Syringe IV (05:40)
[2020-03-25 06:50] LABS: Absolute Lymphocyte Count 0.65 X10^3/uL (0.83-4.51); Basophil# 0.04 X10^3/uL; Basophil% 0.3 % (0-1); Eosinophil# 0.01 X10^3/uL; Eosinophils% 0.1 % (0-5); Hematocrit 30.5 % (37-47); Hemoglobin 9.5 g/dL (12.0-15.0); Lymphocyte # 0.65 X10^3/ul (4.0); Lymphocyte % 5.1 % (19-41); Mean Corp Hgb Conc 31.1 g/dL (32-36); Mean Corpuscular Hgb 29.5 pg (27.0-32.0); Mean Corpuscular Volume 94.7 fL (81-99); Mean Platelet Vol. 9.9 fl (6.2-12.0); Monocyte# 1.11 X10^3/uL; Monocyte% 8.6 % (0-10); NRBC Flagged by Analyzer 0 % (0-5); Neutrophil # 10.96 X10^3/uL (2.7-7.7); Neutrophil % 85.2 % (47-70); Platelet Count 259 K/mm3 (150-450); RBC Distribution Width CV 16.5 % (11.6-14.6); Red Blood Count 3.22 M/mm3 (4.2-5.4); White Blood Count 12.9 K/mm3 (4.4-11.0)
[2020-03-25 07:25] LABS: Anion Gap 11 (5-15); BUN 60 mg/dL (7-18); BUN/Creat Ratio 4.7 RATIO (10-20); Calcium,Total 8.3 mg/dL (8.5-10.1); Chloride 100 mmol/L (98-107); EST Glomerular Filtration Rate 3 mL/min (>60); Est Glom Filt Rate - Afr Amer 4 mL/min (>60); Estimated Creatinine Clearance 3.46 ml/min; Glucose 103 mg/dL (74-106); Potassium 4.5 mmol/L (3.5-5.1); Sodium Level 134 mmol/L (136-145)
--- NOTE | 2020-03-25 12:06 | CASEMGMT ---
KIARA QUIROS assessment: Face to Face with patient for initial transition planning/care coordination assessment. KIARA QUIROS introduced self and role at [facility], pt voices understanding and consents to assessment at this time. Pt is lying in bed in no distress at this time. Pt is A/Ox4 at this time and answers all questions appropriately at this time. Care providers, pharmacy, and demographics verified at this time. Presentation: Weakness, fever 103 Admitting dx: Febrile illness, Hx bilat nephrectomies PCP: Raphael Russell Specialists: Pt states no current specialists at this time. Preferred Pharmacy: [facility] Insurance: [facility] A/B, [facility] Prescription Benefit: Yes Living Will/HPOA: Pt states werner HPOA paperwork and states her , Charli Fox, is HPOA. Pt is aware that they are not on file at [facility] at this time. LNOK: Charli Fox, ; Isaac Fox, son Living Arrangements: Pt states lives with in 2 story home and states no concerns at home at this time. Pt states is independent with ADL's. Transportation: Pt states drives self and states no transportation concerns at this time. DME/HHC: Pt states does not have any current DME and states no need for any at this time. Pt states no hx of HHC or SNF in the past. Pt is on HD MWF s/p bilat nephrectomies. Pt states no concerns with going home at time of discharge. Pt states is disabled. Pt states does not smoke cigarettes or drink ETOH. Pt states no further concerns/needs at this time. CM to follow for any further discharge planning/needs. Advised pt to ask for CM if any further questions/concerns/needs arise, voices understanding. Pt Goal: Home Plan[place] KIARA QUIROS
--- NOTE | 2020-03-25 14:18 | CON.PCM_ITS ---
Consultation - Renal 03/25/20 PCP/ Referring MD: Requesting physician: [] Primary care physician: Dr. Raphael Russell MD - History of Present Illness History of Present Illness: The patient is a 59 year old F With a past medical history of polycystic kidney disease status post Who presented with a chief complaint bilateral nephrectomies end-stage renal disease on home hemodialysis on Tuesday who presented with a chief complaint of generalized weakness and left lower quadrant abdominal pain. She was found to have leukocytosis but negative CT of the abdomen. She was given vancomycin and Merrem due to her complex allergy profile and she was found to have a fever of 100 Fahrenheit. She denies chills headache vomiting diarrhea. She has anuria. She denies chest pain or shortness of breath or cough or neck stiffness. - Allergies Allergies: Allergies cephalexin Allergy (Mild, Verified 03/24/20 19:54) rash Penicillins Allergy (Verified 03/24/20 19:54) Rash codeine Adverse Reaction (Verified 03/24/20 19:54) Nausea - Current Medications Current Medications: Current Medications Acetaminophen (Acetaminophen 325 Mg Tablet) 650 mg PO Q6H PRN PRN PRN Reason: Pain Score 1-10/Temp > 100.7 F Last Admin: 03/25/20 01:47 Dose: 650 mg Documented by: Ibuprofen (Ibuprofen 400 Mg Tablet) 400 mg PO Q6H PRN PRN PRN Reason: Pain Score 1-10 Last Admin: 03/25/20 05:40 Dose: 400 mg Documented by: Ondansetron HCl (Ondansetron 4 Mg/2 Ml Vial) 4 mg IV Q8H PRN PRN PRN Reason: NAUSEA/VOMITING Sodium Chloride (0.9% Saline Lock 10 Ml Syringe) 10 - 40 ml IV UD PRN PRN Reason: SALINE FLUSH Last Admin: 03/25/20 05:40 Dose: 10 ml Documented by: - Past Medical History Past Medical History (Chronic Problems): Chronic Problems (Last Reviewed 12/27/19 @ 14:15 by Viridiana Adam) Chronic pain (Chronic) Gout (Chronic) Polycystic kidney disease (Chronic) End stage renal failure on dialysis (Chronic) - Past Surgical History Surgical History: cholecystectomy, - - bilat nephrectomy - Social History Smoking Status: Never smoker - Family History Maternal Family History: Family History (Last Updated 12/27/19 @ 14:17 by Viridiana Adam) Father Aneurysm History Items: - - Denies maternal cardiac history or other significant medical history. Paternal Family History: Family History (Last Updated 12/27/19 @ 14:17 by Viridiana Adam) Father Aneurysm History Items: - - Polycystic kidney disease Review of Systems Eyes: Reports: - - negative unless noted in the HPI Patient Problems: Active and Suspected Problems (Last Reviewed 12/27/19 @ 14:15 by Viridiana Adam) Sepsis (Acute) - Physical Exam Vitals/I&O's: Vital Signs Temp Pulse Resp BP Pulse Ox 98.1 F 73 18 99/51 L 95 03/25/20 09:45 03/25/20 11:00 03/25/20 09:45 03/25/20 09:45 03/25/20 09:45 Oxygen Delivery Method Room Air Weight: 65.3 kg Body Mass Index (BMI) 28.0 Intake and Output for Last 24 Hours 03/23/20 03/24/20 03/25/20 23:59 23:59 23:59 Intake Total 625 / 625 Output Total 0 / 0 Balance 625 / 625 General: Alert, Cooperative HEENT: Atraumatic, Normocephalic Oral: Moist Mucosa Neck: Supple Lungs: Clear to auscultation, Normal air movement Cardiovascular: Regular rate, Regular Rhythm, Normal S1, Normal S2 Microbiology Past 72 Hours 03/24/20 20:00 Mucosa - Nose Respiratory Panel (PCR) - Final Laboratory Results 03/24/20 19:55: WBC 16.1 H, RBC 3.39 L, Hgb 10.2 L, Hct 32.1 L, MCV 94.7, MCH 30.1, MCHC 31.8 L, RDW Std Deviation 57.4 H, RDW Coeff of Radha 16.6 H, Plt Count 284, MPV 10.2, Immature Gran % (Auto) 0.400, Neut % (Auto) 89.0 H, Lymph % (Auto) 2.2 L, [place] % (Auto) 8.2, Eos % (Auto) 0.0, Baso % (Auto) 0.2, Absolute Neuts (auto) 14.4 H, Absolute Lymphs (auto) 0.36 L, Nucleated RBC % 0, Differential Comment SEE COMMENT, Platelet Estimate ADEQUATE, RBC Morphology N CHROM, Anisocytosis RARE, Macrocytosis RARE 03/24/20 19:55: Sodium 134 L, Potassium 4.2, Chloride 96 L, Carbon Dioxide 25.0, Anion Gap 13, BUN 53 H, Creatinine 12.30 H*, Estim Creat Clear Calc 3.62, Est GFR (MDRD) Af Amer 4 L, Est GFR (MDRD) Non-Af 3 L, BUN/Creatinine Ratio 4.3 L, Glucose 116 H, Calcium 8.4 L, Total Bilirubin 0.40, Direct Bilirubin 0.13, AST 15, ALT 13, Alkaline Phosphatase 110, Total Protein 6.3 L, Albumin 2.3 L, Globulin 4.0, Lipase 134 03/24/20 19:55: Lactic Acid 1.5 03/24/20 20:00: COVID-19 (NORA) Not Detected 03/25/20 05:55: WBC 12.9 H, RBC 3.22 L, Hgb 9.5 L, Hct 30.5 L, MCV 94.7, MCH 29.5, MCHC 31.1 L, RDW Std Deviation 57.0 H, RDW Coeff of Radha 16.5 H, Plt Count 259, MPV 9.9, Immature Gran % (Auto) 0.700, Neut % (Auto) 85.2 H, Lymph % (Auto) 5.1 L, [place] % (Auto) 8.6, Eos % (Auto) 0.1, Baso % (Auto) 0.3, Absolute Neuts (auto) 11.0 H, Absolute Lymphs (auto) 0.65 L, Nucleated RBC % 0 03/25/20 05:55: Sodium 134 L, Potassium 4.5, Chloride 100, Carbon Dioxide 23.0, Anion Gap 11, BUN 60 H, Creatinine 12.90 H*, Estim Creat Clear Calc 3.46, Est GFR (MDRD) Af Amer 4 L, Est GFR (MDRD) Non-Af 3 L, BUN/Creatinine Ratio 4.7 L, Glucose 103, Calcium 8.3 L Current Medications Acetaminophen (Acetaminophen 325 Mg Tablet) 650 mg PO Q6H PRN PRN PRN Reason: Pain Score 1-10/Temp > 100.7 F Last Admin: 03/25/20 01:47 Dose: 650 mg Documented by: Ibuprofen (Ibuprofen 400 Mg Tablet) 400 mg PO Q6H PRN PRN PRN Reason: Pain Score 1-10 Last Admin: 03/25/20 05:40 Dose: 400 mg Documented by: Ondansetron HCl (Ondansetron 4 Mg/2 Ml Vial) 4 mg IV Q8H PRN PRN PRN Reason: NAUSEA/VOMITING Sodium Chloride (0.9% Saline Lock 10 Ml Syringe) 10 - 40 ml IV UD PRN PRN Reason: SALINE FLUSH Last Admin: 03/25/20 05:40 Dose: 10 ml Documented by: Assessment/Plan All Active Problems (Last Reviewed 12/27/19 @ 14:15 by Viridiana Adam) Sepsis (Acute) Hay fever (Acute) ESRD mwf HD While in the hospital. She is on Tuesday on dialysis. Anemia will get MIR while in the hospital with dialysis Fever rule out line sepsis she had 4 sets of blood cultures drawn all of them are pending was given vancomycin and Merrem. Antibiotics as per primary. Abdominal pain per primary thanks for consult d/w patient and family and RN.
--- NOTE | 2020-03-25 15:31 | PCM.PN.HOSP ---
Patient Problems: Active and Suspected Problems (Last Reviewed 12/27/19 @ 14:15 by Viridiana Adam) Sepsis (Acute) Reason for Visit: fever and Left sided abd pain Objective: T max 101.5 F. BP , MAP >65 Vitals/I&O's: Vital Signs Temp Pulse Resp BP Pulse Ox 98.1 F 73 18 99/51 L 95 03/25/20 09:45 03/25/20 11:00 03/25/20 09:45 03/25/20 09:45 03/25/20 09:45 Oxygen Delivery Method Room Air Weight: 143 lb 15.39 oz Body Mass Index (BMI) 28.0 Intake and Output for Last 24 Hours 03/23/20 03/24/20 03/25/20 23:59 23:59 23:59 Intake Total 625 / 625 Output Total 0 / 0 Balance 625 / 625 General: Alert, Oriented x3, Cooperative HEENT: Atraumatic, PERRLA, EOMI, Normocephalic Oral: No Gingival or Mucosal Lesions/ Ulcerations, Dry Mucosa Neck: Supple, No JVD, Negative Carotid Bruits Lungs: Clear to auscultation, Normal air movement, No rhonchi, No wheeze, No rales Cardiovascular: Regular rate, Regular Rhythm, Normal S1, Normal S2, No murmurs, - - 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 No guarding/rigiidty, - - : On HD. B/L nephrectomies Extremities: No edema, Capillary Refill Less than 3 Seconds Skin: No rashes, No breakdown Musculoskeletal: No Tenderness to Palpation of Joints or Extremities, Arthritic Changes Neurological: Cranial nerves II-XII grossly intact, Deep Tendon Reflexes 2+/4 and Symmetrical, Neuro grossly intact Psych/Mental Status: Normal Affect, Appropriate Microbiology Past 72 Hours 03/24/20 20:00 Mucosa - Nose Respiratory Panel (PCR) - Final Laboratory Results 03/24/20 19:55: WBC 16.1 H, RBC 3.39 L, Hgb 10.2 L, Hct 32.1 L, MCV 94.7, MCH 30.1, MCHC 31.8 L, RDW Std Deviation 57.4 H, RDW Coeff of Radha 16.6 H, Plt Count 284, MPV 10.2, Immature Gran % (Auto) 0.400, Neut % (Auto) 89.0 H, Lymph % (Auto) 2.2 L, [place] % (Auto) 8.2, Eos % (Auto) 0.0, Baso % (Auto) 0.2, Absolute Neuts (auto) 14.4 H, Absolute Lymphs (auto) 0.36 L, Nucleated RBC % 0, Differential Comment SEE COMMENT, Platelet Estimate ADEQUATE, RBC Morphology N CHROM, Anisocytosis RARE, Macrocytosis RARE 03/24/20 19:55: Sodium 134 L, Potassium 4.2, Chloride 96 L, Carbon Dioxide 25.0, Anion Gap 13, BUN 53 H, Creatinine 12.30 H*, Estim Creat Clear Calc 3.62, Est GFR (MDRD) Af Amer 4 L, Est GFR (MDRD) Non-Af 3 L, BUN/Creatinine Ratio 4.3 L, Glucose 116 H, Calcium 8.4 L, Total Bilirubin 0.40, Direct Bilirubin 0.13, AST 15, ALT 13, Alkaline Phosphatase 110, Total Protein 6.3 L, Albumin 2.3 L, Globulin 4.0, Lipase 134 03/24/20 19:55: Lactic Acid 1.5 03/24/20 20:00: COVID-19 (NORA) Not Detected 03/25/20 05:55: WBC 12.9 H, RBC 3.22 L, Hgb 9.5 L, Hct 30.5 L, MCV 94.7, MCH 29.5, MCHC 31.1 L, RDW Std Deviation 57.0 H, RDW Coeff of Radha 16.5 H, Plt Count 259, MPV 9.9, Immature Gran % (Auto) 0.700, Neut % (Auto) 85.2 H, Lymph % (Auto) 5.1 L, [place] % (Auto) 8.6, Eos % (Auto) 0.1, Baso % (Auto) 0.3, Absolute Neuts (auto) 11.0 H, Absolute Lymphs (auto) 0.65 L, Nucleated RBC % 0 03/25/20 05:55: Sodium 134 L, Potassium 4.5, Chloride 100, Carbon Dioxide 23.0, Anion Gap 11, BUN 60 H, Creatinine 12.90 H*, Estim Creat Clear Calc 3.46, Est GFR (MDRD) Af Amer 4 L, Est GFR (MDRD) Non-Af 3 L, BUN/Creatinine Ratio 4.7 L, Glucose 103, Calcium 8.3 L Current Medications Acetaminophen (Acetaminophen 325 Mg Tablet) 650 mg PO Q6H PRN PRN PRN Reason: Pain Score 1-10/Temp > 100.7 F Last Admin: 03/25/20 01:47 Dose: 650 mg Documented by: Ibuprofen (Ibuprofen 400 Mg Tablet) 400 mg PO Q6H PRN PRN PRN Reason: Pain Score 1-10 Last Admin: 03/25/20 05:40 Dose: 400 mg Documented by: Ondansetron HCl (Ondansetron 4 Mg/2 Ml Vial) 4 mg IV Q8H PRN PRN PRN Reason: NAUSEA/VOMITING Sodium Chloride (0.9% Saline Lock 10 Ml Syringe) 10 - 40 ml IV UD PRN PRN Reason: SALINE FLUSH Last Admin: 03/25/20 05:40 Dose: 10 ml Documented by: Medical Necessity - Tobacco Use Smoking Status: Never smoker Assessment/Plan All Active Problems (Last Reviewed 12/27/19 @ 14:15 by Viridiana Adam) Sepsis (Acute) Hay fever (Acute) Fever of unclear focus, suspect line sepsis: 4 blood cx drawn and result pending. Res panel negative. ID consulted. On vanco and meropenem. Left sided abd pain, exact etilogy unclear: Abdomen CT no acute source found. Abd flexion was negative for tenderness to account for abd muscle spasm/MSK pain. ESRD on HD Pt goes for dialysis. Seen by DR SWANN DVT Prophylaxis: B/L SCD
--- NOTE | 2020-03-25 16:52 | CON.PCM_ITS ---
Problem List (1) Sepsis Status: Acute Reason for Consult: sepsis Consulted by: Dr. Villegas History of Present Illness: The patient is a 59 year old F with ESRD, presented with fever, muscle aches, L abd pain for 2 days. No headache, no sore throat, no change in taste/smell, no sick contacts, no n/v/d, no cough or SOB, no covid exposures, no rash. Abd pain was 9 out of 10 in the ED, positional. No issues with dialysis, no pain/redness/swelling/drainage at L chest permacath. Came to ED, bcx sent, CT abd done, given single dose of vanc/inder. Feeling about the same today. Covid was neg. Full ROS performed and neg except as noted above. - Medical History Past Medical History (Chronic Problems): Chronic Problems (Last Reviewed 12/27/19 @ 14:15 by Viridiana Adam) Chronic pain (Chronic) Gout (Chronic) Polycystic kidney disease (Chronic) End stage renal failure on dialysis (Chronic) Allergies/Adverse Reactions: Allergies cephalexin Allergy (Mild, Verified 03/24/20 19:54) rash Penicillins Allergy (Verified 03/24/20 19:54) Rash codeine Adverse Reaction (Verified 03/24/20 19:54) Nausea Home Medications: Ambulatory Orders Medication Instructions Recorded Allopurinol [Zyloprim] 100 mg PO MOWEFR 09/01/16 Ondansetron HCl [Zofran] 4 mg PO PRN PRN 09/01/16 Oxycodone [Oxyir] 5 - 10 mg PO Q4H PRN PRN 09/01/16 albuterol sulfate 90 mcg/actuation 2 puff INHALATION Q6H PRN 12/27/19 aerosol inhaler apixaban 5 mg tablet 5 mg PO BID 12/27/19 docusate sodium 100 mg capsule 100 mg PO BID 12/27/19 Sevelamer Carbonate 800 mg PO TID 01/07/20 Folic Acid/Vitamin B Comp W-C 1 cap PO DAILY 03/25/20 [Nephrocaps, Renaphro] - Social History Tobacco Use: non-smoker Vital Signs Temp Pulse Resp BP Pulse Ox 98.4 F 65 18 117/69 98 03/25/20 15:45 03/25/20 15:45 03/25/20 15:45 03/25/20 15:45 03/25/20 15:45 Oxygen Delivery Method Room Air Weight: 65.3 kg Body Mass Index (BMI) 28.0 Microbiology Past 72 Hours 03/24/20 20:00 Respiratory Panel (PCR) - Final Mucosa - Nose Laboratory Tests Past 24 Hrs 03/24/20 03/24/20 03/24/20 19:55 19:55 19:55 WBC 16.1 H RBC 3.39 L Hgb 10.2 L Hct 32.1 L MCV 94.7 MCH 30.1 MCHC 31.8 L RDW Std Deviation 57.4 H RDW Coeff of Radha 16.6 H Plt Count 284 MPV 10.2 Immature Gran % (Auto) 0.400 Neut % (Auto) 89.0 H Lymph % (Auto) 2.2 L [place] % (Auto) 8.2 Eos % (Auto) 0.0 Baso % (Auto) 0.2 Absolute Neuts (auto) 14.4 H Absolute Lymphs (auto) 0.36 L Nucleated RBC % 0 Differential Comment SEE COMMENT Platelet Estimate ADEQUATE RBC Morphology N CHROM Anisocytosis RARE Macrocytosis RARE Sodium 134 L Potassium 4.2 Chloride 96 L Carbon Dioxide 25.0 Anion Gap 13 BUN 53 H Creatinine 12.30 H* Estim Creat Clear Calc 3.62 Est GFR (MDRD) Af Amer 4 L Est GFR (MDRD) Non-Af 3 L BUN/Creatinine Ratio 4.3 L Glucose 116 H Lactic Acid 1.5 Calcium 8.4 L Total Bilirubin 0.40 Direct Bilirubin 0.13 AST 15 ALT 13 Alkaline Phosphatase 110 Total Protein 6.3 L Albumin 2.3 L Globulin 4.0 Lipase 134 COVID-19 (NORA) 03/24/20 03/25/20 03/25/20 20:00 05:55 05:55 WBC 12.9 H RBC 3.22 L Hgb 9.5 L Hct 30.5 L MCV 94.7 MCH 29.5 MCHC 31.1 L RDW Std Deviation 57.0 H RDW Coeff of Radha 16.5 H Plt Count 259 MPV 9.9 Immature Gran % (Auto) 0.700 Neut % (Auto) 85.2 H Lymph % (Auto) 5.1 L [place] % (Auto) 8.6 Eos % (Auto) 0.1 Baso % (Auto) 0.3 Absolute Neuts (auto) 11.0 H Absolute Lymphs (auto) 0.65 L Nucleated RBC % 0 Differential Comment Platelet Estimate RBC Morphology Anisocytosis Macrocytosis Sodium 134 L Potassium 4.5 Chloride 100 Carbon Dioxide 23.0 Anion Gap 11 BUN 60 H Creatinine 12.90 H* Estim Creat Clear Calc 3.46 Est GFR (MDRD) Af Amer 4 L Est GFR (MDRD) Non-Af 3 L BUN/Creatinine Ratio 4.7 L Glucose 103 Lactic Acid Calcium 8.3 L Total Bilirubin Direct Bilirubin AST ALT Alkaline Phosphatase Total Protein Albumin Globulin Lipase COVID-19 (NORA) Not Detected - Other Studies Radiology: [] reviewed Other Studies: [] Route of nutrition/ use of supplements: [] Nutritional Intake: [] IV Site: [] White Catheter: [] - Physical Exam General: Alert, Oriented x3, Cooperative, No apparent distress HEENT: Atraumatic, PERRLA, EOMI Neck: Supple, No Nodes Lungs: Clear to auscultation, Normal air movement Cardiovascular: Regular rate, Regular Rhythm, No murmurs Abdomen: Soft, Non-Distended, Tender - moderate tenderness to touch in center- left abd Extremities: No edema Skin: No rashes IV Site: Central Line, without redness Musculoskeletal: No Tenderness to Palpation of Joints or Extremities Neurological: Cranial nerves II-XII grossly intact - Assessment/Plan Antibiotics: [] Assessment/Plan: [] Active and Suspected Problems (Last Reviewed 12/27/19 @ 14:15 by Viridiana Adam) Sepsis (Acute) sepsis unclear source - bcx neg so far. Presented with fever, abd pain, fatigue. Covid neg but does have lymphopenia, some hypoxia. Given dose of vanc and inder and midnight. Wbc and temp better today, will monitor off of abx for now. Will follow, thank you.
[2020-03-25] MEDS: oxyCODONE 5 MG Tablet PO (22:36)
[2020-03-26] VITALS (13 sets, daily range): BP systolic 112–137; BP diastolic 63–80; PULSE 61–82; RESP 16–18; TEMP 36.4–37; O2SAT 93–100
[2020-03-26] MEDS: oxyCODONE 5 MG Tablet PO ×3 (07:00→21:22)
--- NOTE | 2020-03-26 10:01 | PCM.PN.REN ---
Patient Problems: Active and Suspected Problems (Last Reviewed 12/27/19 @ 14:15 by Viridiana Adam) Sepsis (Acute) Subjective: Patient was seen during HD Session Patient is still has LUQ pain. had fever last night BC is still pending No NV/SOB/D/cough - Physical Exam Vitals/I&O's: Vital Signs Temp Pulse Resp BP Pulse Ox 97.6 F L 68 18 119/71 93 03/26/20 04:13 03/26/20 07:00 03/26/20 04:13 03/26/20 04:13 03/26/20 07:30 Oxygen Delivery Method Room Air Weight: 65.1 kg Body Mass Index (BMI) 28.0 Intake and Output for Last 24 Hours 03/24/20 03/25/20 03/26/20 23:59 23:59 23:59 Intake Total 1045 / 1045 240 / 240 Output Total 0 / 0 Balance 1045 / 1045 240 / 240 General: Alert, Oriented x3 HEENT: Atraumatic Oral: Moist Mucosa Neck: Supple, No JVD Lungs: Clear to auscultation, Normal air movement, No rhonchi, No wheeze Cardiovascular: Regular rate, Regular Rhythm, Normal S1, Normal S2 Abdomen: Bowel Sounds Present, Soft, Tender - In LUQ Extremities: No clubbing, No cyanosis, No edema Skin: No rashes Musculoskeletal: No Tenderness to Palpation of Joints or Extremities Lymphatic: No Cervical, Supraclavicular, or Inguinal Adenopathy Neurological: Cranial nerves II-XII grossly intact, Neuro grossly intact Psych/Mental Status: Normal Affect Microbiology Past 72 Hours 03/24/20 20:00 Mucosa - Nose Respiratory Panel (PCR) - Final Current Medications Acetaminophen (Acetaminophen 325 Mg Tablet) 650 mg PO Q6H PRN PRN PRN Reason: Pain Score 1-10/Temp > 100.7 F Last Admin: 03/25/20 22:20 Dose: 650 mg Documented by: Ibuprofen (Ibuprofen 400 Mg Tablet) 400 mg PO Q6H PRN PRN PRN Reason: Pain Score 1-10 Last Admin: 03/25/20 17:57 Dose: 400 mg Documented by: Ondansetron HCl (Ondansetron 4 Mg/2 Ml Vial) 4 mg IV Q8H PRN PRN PRN Reason: NAUSEA/VOMITING Oxycodone HCl (Oxycodone 5 Mg Tablet) 5 mg PO Q6H PRN PRN PRN Reason: Pain Score 6-10 Last Admin: 03/26/20 07:00 Dose: 5 mg Documented by: Sodium Chloride (0.9% Saline Lock 10 Ml Syringe) 10 - 40 ml IV UD PRN PRN Reason: SALINE FLUSH Last Admin: 03/25/20 05:40 Dose: 10 ml Documented by: Medical Necessity - Tobacco Use Smoking Status: Never smoker Assessment/Plan All Active Problems (Last Reviewed 12/27/19 @ 14:15 by Viridiana Adam) Sepsis (Acute) Hay fever (Acute) 1- ESRD on HHD Patient is MWF HD while inpatient HD session today : BQ 400 DQ 600 UF 2L HD access L IJ TC 2- Anemia: Hgb is close to target 3- fever. related to infection? BC is negative is far. ID is following. Abx stopped this am Will continue to follow
--- NOTE | 2020-03-26 11:06 | CON.PCM_ITS ---
Problem List (1) LLQ abdominal pain Status: Acute Reason for Consult Date of Consultation: 03/26/20 Reason for Consultation: Left lower quadrant pain, fever History of Present Illness: The patient is a 59 year old F who was admitted on Tuesday with abdominal pain and fevers. Patient reports that she woke up Tuesday morning with fever and left lower quadrant pain. She says this feels like it did when she had E. coli peritonitis years ago. Patient is currently having dialysis via left chest catheter. She does hemodialysis at home. She is not having any diarrhea and had a normal bowel movement yesterday for the first time in 4 days. No nausea or vomiting. Past Medical History Past Medical History (Chronic Problems): Chronic Problems (Last Reviewed 12/27/19 @ 14:15 by Viridiana Adam) Chronic pain (Chronic) Gout (Chronic) Polycystic kidney disease (Chronic) End stage renal failure on dialysis (Chronic) Medical History: Medical History (Last Reviewed 12/27/19 @ 14:15 by Viridiana Adam) Hay fever (Acute) J30.1 Chronic pain (Chronic) G89.29 Gout (Chronic) M10.9 Allergies cephalexin Allergy (Mild, Verified 03/24/20 19:54) rash Penicillins Allergy (Verified 03/24/20 19:54) Rash codeine Adverse Reaction (Verified 03/24/20 19:54) Nausea Home Medications: Ambulatory Orders Medication Instructions Recorded Allopurinol [Zyloprim] 100 mg PO MOWEFR 09/01/16 Ondansetron HCl [Zofran] 4 mg PO PRN PRN 09/01/16 Oxycodone [Oxyir] 5 - 10 mg PO Q4H PRN PRN 09/01/16 albuterol sulfate 90 mcg/actuation 2 puff INHALATION Q6H PRN 12/27/19 aerosol inhaler apixaban 5 mg tablet 5 mg PO BID 12/27/19 docusate sodium 100 mg capsule 100 mg PO BID 12/27/19 Sevelamer Carbonate 800 mg PO TID 01/07/20 Folic Acid/Vitamin B Comp W-C 1 cap PO DAILY 03/25/20 [Nephrocaps, Renaphro] Surgical History: Surgical History (Last Updated 12/27/19 @ 14:16 by Viridiana Adam) History of Z98.891 x2 S/P cholecystectomy Z90.49 S/p nephrectomy Z90.5 bilateral s/p port placement Surgical History: cholecystectomy, - - bilat nephrectomy Psychiatric History: No pertinent psych hx LABELING SPECIALIST History: No pertinent LABELING SPECIALIST history Lives: Spouse/ Significant Other Smoking Status: Never smoker - *Family History Maternal Family History: Family History (Last Updated 12/27/19 @ 14:17 by Viridiana Adam) Father Aneurysm History Items: - - Denies maternal cardiac history or other significant medical history. Paternal Family History: Family History (Last Updated 12/27/19 @ 14:17 by Viridiana Adam) Father Aneurysm History Items: - - Polycystic kidney disease Review of Systems Constitutional: Reports: Fever. Denies: Anorexia Eyes: Denies: Blurred vision HEENT: Denies: Difficulty Swallowing Cardiovascular: Denies: Chest Pain Respiratory: Denies: Cough, Shortness of Breath Gastrointestinal: Reports: Abdominal Pain, Constipation. Denies: Nausea, Vomiting Genitourinary: Denies: Dysuria Musculoskeletal: Denies: Joint Tenderness Skin: Denies: Jaundice Neurological: Denies: Balance problems Psychiatric: Denies: Anxiety Hematologic/ Lymphatic: Denies: Anemia Patient Problems: Active and Suspected Problems (Last Reviewed 12/27/19 @ 14:15 by Viridiana Adam) Sepsis (Acute) - Physical Exam Vitals/I&O's: Vital Signs Temp Pulse Resp BP Pulse Ox 98.5 F 73 16 137/80 H 100 03/26/20 10:13 03/26/20 10:13 03/26/20 10:13 03/26/20 10:13 03/26/20 10:13 Oxygen Delivery Method Room Air Weight: 143 lb 8.335 oz Body Mass Index (BMI) 28.0 Intake and Output for Last 24 Hours 03/24/20 03/25/20 03/26/20 23:59 23:59 23:59 Intake Total 1045 / 1045 240 / 240 Output Total 0 / 0 Balance 1045 / 1045 240 / 240 General: Alert, Oriented x3 Neck: No JVD Lungs: Normal air movement Cardiovascular: Regular rate, Regular Rhythm Abdomen: Soft, Non-Distended, Tender - Tender in the left lower quadrant with no guarding Skin: No rashes Musculoskeletal: No Muscle Wasting Neurological: Cranial nerves II-XII grossly intact Psych/Mental Status: Normal Affect Microbiology Past 72 Hours 03/24/20 20:00 Mucosa - Nose Respiratory Panel (PCR) - Final Clinical Impression(s) from Imaging Studies Chest X-Ray 03/24/20 20:10 IMPRESSION: 1. Small left pleural effusion. 2. Hemodialysis catheter. 3. Vascular stenting in the left axilla. Electronically Signed: Anival Anne DO at 21:02 EDT Tel [phone], Service support , Abdomen/Pelvis CT 03/24/20 20:53 IMPRESSION: 1. Status post bilateral nephrectomies. 2. Cystic changes and calcifications throughout the liver. 3. Calcified uterine fibroid. 4. Atherosclerotic changes of the thoracic aorta without aneurysm. Electronically Signed: Anival Anne DO at 23:21 EDT Tel [phone], Service support , Current Medications Acetaminophen (Acetaminophen 325 Mg Tablet) 650 mg PO Q6H PRN PRN PRN Reason: Pain Score 1-10/Temp > 100.7 F Last Admin: 03/25/20 22:20 Dose: 650 mg Documented by: Heparin Sodium (Porcine) (Heparin 10,000 Units/10 Ml Vial) 3,200 units IV X1 ONE Stop: 03/26/20 12:01 Pantoprazole Sodium 40 mg/ (Sodium Chloride) 110 mls @ 330 mls/hr IV Q12 MAIRNO Ibuprofen (Ibuprofen 400 Mg Tablet) 400 mg PO Q6H PRN PRN PRN Reason: Pain Score 1-10 Last Admin: 03/25/20 17:57 Dose: 400 mg Documented by: Ondansetron HCl (Ondansetron 4 Mg/2 Ml Vial) 4 mg IV Q8H PRN PRN PRN Reason: NAUSEA/VOMITING Oxycodone HCl (Oxycodone 5 Mg Tablet) 5 mg PO Q6H PRN PRN PRN Reason: Pain Score 6-10 Last Admin: 03/26/20 07:00 Dose: 5 mg Documented by: Sodium Chloride (0.9% Saline Lock 10 Ml Syringe) 10 - 40 ml IV UD PRN PRN Reason: SALINE FLUSH Last Admin: 10/20/20 05:40 Dose: 10 ml Documented by: Assessment/Plan All Active Problems (Last Reviewed 12/27/19 @ 14:15 by Viridiana Adam) Sepsis (Acute) LLQ abdominal pain (Acute) Hay fever (Acute) 59-year-old female with abdominal pain and fevers 1. Patient had leukocytosis with white count of 16. Her white count did decrease with antibiotics this morning from yesterday. She is still having low- grade fever. She reports that her pain is in the left lower quadrant. The patient is not having any diarrhea or blood in her stool. 2. Given the fact that her pain is in the left lower quadrant I am concerned for some sort of colitis. Her CT from 2 days ago appeared fairly normal. I will order a repeat CT tomorrow morning with oral and IV contrast to see if there is been any progression or thickening in the colon. The patient does home dialysis I am concerned that she may have run herself dry and caused ischemic colitis. Michael Nunez MD Pager: [facility] [address] [place] [address] [address] [place] [address] Office:
[2020-03-26] MEDS: Heparin 10,000 UNITS/10 ML Vial 6400 UNITS IV (11:20)
--- NOTE | 2020-03-26 11:54 | PN_ITS ---
Patient Problems: Active and Suspected Problems (Last Reviewed 12/27/19 @ 14:15 by Viridiana Adam) Sepsis (Acute) LLQ abdominal pain (Acute) Reason for Visit: Follow-up for left lower quadrant abdominal pain and fever. Objective: Seen and examined. Patient with low-grade fever, 100.6 Fahrenheit last night one time otherwise she was afebrile. Seen by ID. Patient continues to complain of left lower quadrant pain without radiation. No nausea, vomiting, hematemesis or melena. Had bowel movement normal yesterday. Patient does self hemodialysis at home. Physical exam General: Alert, Oriented x3, Cooperative HEENT: Atraumatic, PERRLA, EOMI, Normocephalic Oral: No Gingival or Mucosal Lesions/ Ulcerations, Dry Mucosa Neck: Supple, No JVD, Negative Carotid Bruits Lungs: Clear to auscultation, Normal air movement, No rhonchi, No wheeze, No rales Cardiovascular: Regular rate, Regular Rhythm, Normal S1, Normal S2, No murmurs, - - SINUS Rhythm on school lunch monitor Abdomen: Bowel Sounds Present, Soft, Non-Distended, No Hepato-splenomegaly, Passing Flatus, Mild tenderness on left lumbar region. No guarding/rigiidty : On HD. B/L nephrectomies Extremities: No edema, Capillary Refill Less than 3 Seconds Skin: No rashes, No breakdown Musculoskeletal: No Tenderness to Palpation of Joints or Extremities, Arthritic Changes Neurological: Cranial nerves II-XII grossly intact, Deep Tendon Reflexes 2+/4 and Symmetrical, Neuro grossly intact Psych/Mental Status: Normal Affect, Appropriate Vitals/I&O's: Vital Signs Temp Pulse Resp BP Pulse Ox 98.5 F 73 16 137/80 H 100 03/26/20 10:13 03/26/20 10:13 03/26/20 10:13 03/26/20 10:13 03/26/20 10:13 Oxygen Delivery Method Room Air Weight: 143 lb 8.335 oz Body Mass Index (BMI) 28.0 Intake and Output for Last 24 Hours 03/24/20 03/25/20 03/26/20 23:59 23:59 23:59 Intake Total 1045 / 1045 240 / 240 Output Total 0 / 0 Balance 1045 / 1045 240 / 240 Microbiology Past 72 Hours 03/24/20 20:00 Mucosa - Nose Respiratory Panel (PCR) - Final Current Medications Acetaminophen (Acetaminophen 325 Mg Tablet) 650 mg PO Q6H PRN PRN PRN Reason: Pain Score 1-10/Temp > 100.7 F Last Admin: 03/25/20 22:20 Dose: 650 mg Documented by: Heparin Sodium (Porcine) (Heparin 10,000 Units/10 Ml Vial) 3,200 units IV X1 ONE Stop: 03/26/20 12:01 Pantoprazole Sodium 40 mg/ (Sodium Chloride) 110 mls @ 330 mls/hr IV Q12 MARINO Ibuprofen (Ibuprofen 400 Mg Tablet) 400 mg PO Q6H PRN PRN PRN Reason: Pain Score 1-10 Last Admin: 03/25/20 17:57 Dose: 400 mg Documented by: Ondansetron HCl (Ondansetron 4 Mg/2 Ml Vial) 4 mg IV Q8H PRN PRN PRN Reason: NAUSEA/VOMITING Oxycodone HCl (Oxycodone 5 Mg Tablet) 5 mg PO Q6H PRN PRN PRN Reason: Pain Score 6-10 Last Admin: 03/26/20 07:00 Dose: 5 mg Documented by: Sodium Chloride (0.9% Saline Lock 10 Ml Syringe) 10 - 40 ml IV UD PRN PRN Reason: SALINE FLUSH Last Admin: 03/25/20 05:40 Dose: 10 ml Documented by: STROKE Vital Signs/Narrative: Vital Signs Temp Pulse Resp BP Pulse Ox 03/26/20 10:13 98.5 F 73 16 137/80 H 100 Medical Necessity - Tobacco Use Smoking Status: Never smoker Assessment/Plan All Active Problems (Last Reviewed 12/27/19 @ 14:15 by Viridiana Adam) Sepsis (Acute) LLQ abdominal pain (Acute) Hay fever (Acute) This 59-year-old question female admitted for fever and left lower quadrant abdominal pain from ER. 1. Fever of unclear focus, suspect line sepsis: 4 blood cx drawn. Res panel negative. 03/26: Blood culture are pending, no growth yet. Seen by ID and recommended to watch off antibiotics. Patient had 1 dose of vanco and meropenem at time of admission. Left sided abd pain, exact etiology unclear: Abdomen CT no acute source found. Abd flexion was negative for tenderness to account for abd muscle spasm/MSK pain. Seen by surgeon. Discussed with Dr. Nunez, suspicion of possible ischemic colitis as patient might had overdiuresis/fluid removal during hemodialysis. CT abdomen and pelvis with oral and IV contrast ordered. ESRD on HD Pt goes for dialysis. Seen by Yuliet medical administrator. DVT Prophylaxis: B/L SCD Clinical Impression(s) from Imaging Studies Chest X-Ray 03/24/20 20:10 IMPRESSION: 1. Small left pleural effusion. 2. Hemodialysis catheter. 3. Vascular stenting in the left axilla. Abdomen/Pelvis CT 03/24/20 20:53 IMPRESSION: 1. Status post bilateral nephrectomies. 2. Cystic changes and calcifications throughout the liver. 3. Calcified uterine fibroid. 4. Atherosclerotic changes of the thoracic aorta without aneurysm. Microbiology Past 72 Hours 03/24/20 20:00 Mucosa - Nose Respiratory Panel (PCR) - Final Inpatient E&M: 61418 Subs Hosp L2
[2020-03-26] MEDS: Heparin 10,000 UNITS/10 ML Vial 3200 UNITS IV (14:37)
--- NOTE | 2020-03-26 14:56 | DIALYSIS ---
Hemodialysis completed. -1000 ml off. CVC worked well. CVC dressing changed. Closed with heparin to each lumen fill volume. Report to Merline CRAIG See flowsheet for details.
[2020-03-26] MEDS: Acetaminophen 325 MG Tablet 650 MG PO ×2 (15:08→21:21)
[2020-03-26 15:59] LABS: Absolute Lymphocyte Count 0.43 X10^3/uL (0.83-4.51); Absolute Neutrophil Count 6.8 X10^3/uL (2.0-7.7); Basophil# 0.02 X10^3/uL; Basophil% 0.2 % (0-1); Eosinophil# 0.12 X10^3/uL; Eosinophils% 1.5 % (0-5); Hematocrit 30.9 % (37-47); Hemoglobin 9.9 g/dL (12.0-15.0); Lymphocyte # 0.43 X10^3/ul (4.0); Lymphocyte % 5.4 % (19-41); Mean Corpuscular Hgb 29.6 pg (27.0-32.0); Mean Corpuscular Volume 92.5 fL (81-99); Monocyte# 0.62 X10^3/uL; Monocyte% 7.7 % (0-10); NRBC Flagged by Analyzer 0 % (0-5); Neutrophil % 84.7 % (47-70); POSITIVE DIFFERENTIAL YES; Platelet Count 217 K/mm3 (150-450); RBC Distribution Width CV 16.1 % (11.6-14.6); Red Blood Count 3.34 M/mm3 (4.2-5.4)
[2020-03-26 16:07] LABS: Differential Indicated SCAN CRITERIA MET
[2020-03-26 16:49] LABS: ALB/GLOB Ratio 0.4 RATIO (0.9-2.4); AST(SGOT) 43 U/L (15-37); Alanine Aminotransfer ALT/SGPT 20 U/L (13-56); Albumin, Serum 1.9 g/dL (3.2-5.0); Alkaline Phosphatase 222 U/L (45-117); Anion Gap 7 (5-15); BUN 24 mg/dL (7-18); BUN/Creat Ratio 4.2 RATIO (10-20); Calcium,Total 8.3 mg/dL (8.5-10.1); Chloride 101 mmol/L (98-107); Creatinine, Serum 5.77 mg/dL (0.55-1.02); EST Glomerular Filtration Rate 8 mL/min (>60); Est Glom Filt Rate - Afr Amer 10 mL/min (>60); Estimated Creatinine Clearance 7.73 ml/min; Globulin 4.4 g/dL (2.2-4.2); Glucose 108 mg/dL (74-106); Potassium 4.3 mmol/L (3.5-5.1); Protein, Total 6.3 g/dL (6.4-8.2); Sodium Level 135 mmol/L (136-145)
--- NOTE | 2020-03-26 17:24 | PCM.PN.ID ---
Patient Problems: Active and Suspected Problems (Last Reviewed 12/27/19 @ 14:15 by Viridiana Adam) Sepsis (Acute) LLQ abdominal pain (Acute) Subjective: Feeling ok, no fever, but persistent abd pain. at bedside feels fine. - Physical Exam Vitals/I&O's: Vital Signs Temp Pulse Resp BP Pulse Ox 98.2 F 73 16 112/67 99 03/26/20 14:30 03/26/20 14:41 03/26/20 14:30 03/26/20 14:30 03/26/20 14:14 Oxygen Delivery Method Room Air Weight: 65.1 kg Body Mass Index (BMI) 28.0 Intake and Output for Last 24 Hours 03/24/20 03/25/20 03/26/20 23:59 23:59 23:59 Intake Total 1045 / 1045 500 / 500 Output Total 0 / 0 1000 / 1000 Balance 1045 / 1045 -500 / -500 General: Alert, Cooperative, No apparent distress Lungs: Clear to auscultation, Normal air movement Cardiovascular: Regular rate, Regular Rhythm Abdomen: Soft, Non-Distended, Tender Skin: No rashes Microbiology Past 72 Hours 03/24/20 20:00 Mucosa - Nose Respiratory Panel (PCR) - Final Laboratory Results 03/26/20 15:45: WBC 8.0, RBC 3.34 L, Hgb 9.9 L, Hct 30.9 L, MCV 92.5, MCH 29.6, MCHC 32.0, RDW Std Deviation 54.0 H, RDW Coeff of Radha 16.1 H, Plt Count 217, MPV 10.0, Immature Gran % (Auto) 0.500, Neut % (Auto) 84.7 H, Lymph % (Auto) 5.4 L, Cuming % (Auto) 7.7, Eos % (Auto) 1.5, Baso % (Auto) 0.2, Absolute Neuts (auto) 6.8, Absolute Lymphs (auto) 0.43 L, Nucleated RBC % 0, Differential Comment COMMENT 03/26/20 15:45: Sodium 135 L, Potassium 4.3, Chloride 101, Carbon Dioxide 27.0, Anion Gap 7, BUN 24 H, Creatinine 5.77 H, Estim Creat Clear Calc 7.73, Est GFR (MDRD) Af Amer 10 L, Est GFR (MDRD) Non-Af 8 L, BUN/Creatinine Ratio 4.2 L, Glucose 108 H, Calcium 8.3 L, Total Bilirubin 0.60, AST 43 H, ALT 20, Alkaline Phosphatase 222 H, Total Protein 6.3 L, Albumin 1.9 L, Globulin 4.4 H, Albumin/Globulin Ratio 0.4 L Current Medications Acetaminophen (Acetaminophen 325 Mg Tablet) 650 mg PO Q6H PRN PRN PRN Reason: Pain Score 1-10/Temp > 100.7 F Last Admin: 03/26/20 15:08 Dose: 650 mg Documented by: Pantoprazole Sodium 40 mg/ (Sodium Chloride) 110 mls @ 330 mls/hr IV Q12 MARINO Last Infusion: 03/26/20 15:36 Dose: Infused Documented by: Ibuprofen (Ibuprofen 400 Mg Tablet) 400 mg PO Q6H PRN PRN PRN Reason: Pain Score 1-10 Last Admin: 03/25/20 17:57 Dose: 400 mg Documented by: Ondansetron HCl (Ondansetron 4 Mg/2 Ml Vial) 4 mg IV Q8H PRN PRN PRN Reason: NAUSEA/VOMITING Oxycodone HCl (Oxycodone 5 Mg Tablet) 5 mg PO Q6H PRN PRN PRN Reason: Pain Score 6-10 Last Admin: 03/26/20 15:09 Dose: 5 mg Documented by: Sodium Chloride (0.9% Saline Lock 10 Ml Syringe) 10 - 40 ml IV UD PRN PRN Reason: SALINE FLUSH Last Admin: 03/25/20 05:40 Dose: 10 ml Documented by: Medical Necessity - Tobacco Use Smoking Status: Never smoker Route of nutrition/ use of supplements: [] Nutritional Intake: [] IV Site: [] White Catheter: [] - Assessment/Plan Antibiotics: [] Assessment/Plan: [] Active and Suspected Problems (Last Reviewed 12/27/19 @ 14:15 by Viridiana Adam) Sepsis (Acute) abd pain and SIRS - bcx neg so far. Presented with fever, abd pain, fatigue. Covid neg. Wbc and temp better today, cont to monitor off of abx for now. Only got single dose of meropenem and vanc in the ED. Will follow
[2020-03-26] MEDS: 0.9% Saline Lock 10 ML Syringe IV (23:25)
[2020-03-27] VITALS (9 sets, daily range): BP systolic 103–123; BP diastolic 60–68; PULSE 72–77; RESP 16; TEMP 36.4–37.1; O2SAT 94–100
[2020-03-27] MEDS: Ondansetron 4 MG/2 ML Vial IV (00:23)
[2020-03-27] MEDS: 0.9% Saline Lock 10 ML Syringe IV ×4 (00:23→10:16)
[2020-03-27] MEDS: proMETHazine 25 MG/ML Syringe 6.25 MG IV (04:10)
[2020-03-27] MEDS: oxyCODONE 5 MG Tablet PO ×2 (04:15→10:15)
[2020-03-27] MEDS: Ibuprofen 400 MG Tablet PO ×2 (04:16→10:16)
--- NOTE | 2020-03-27 06:00 | CT_ITS ---
STUDY: CT ABDOMEN AND PELVIS WITH CONTRAST REASON FOR EXAM: Female, 59 years old. LLQ Pain, weakness AND Fever, possible COLI ITIS -- HX:GOUT,POLYCYSTIC KIDNEY DISEASE WITH BILATERAL NEPHRECTOMIES-PT ON DIALYSIS-PRIOR , cholecystectomy RADIATION DOSAGE (If Supplied By Facility): CTDIvol = ( 12.78 ) mGy, DLP = ( 657.02 ) mGycm TECHNIQUE: Transaxial images were obtained from the dome of the diaphragm to the symphysis pubis without oral contrast. IV 75mL Isovue-370 was administered. Sagittal and coronal images were reconstructed. Individualized dose optimization techniques were used for this CT. COMPARISON: March 24, 2020 CT abdomen and pelvis FINDINGS: There are small bilateral effusions with lower lobe consolidation. There is mild to moderate cardiac enlargement there are coronary calcifications. There is a small pericardial effusion. There are lymph nodes in the pericardial fat anterior to the heart measuring 1.3 x 1.4 cm and 1.0 cm. This is similar to the prior study. The liver is inhomogeneous and contains multiple cystic structures especially throughout the left hepatic lobe was centrally located radiopaque material within the liver at the level of the left hepatic lobe. There are surgical clips in the gallbladder fossa consistent with a prior cholecystectomy. Normal spleen. Normal pancreas. Normal bilateral adrenal glands. The right kidney is been surgically removed. The left kidney is been surgically removed. There is contrast in the stomach. There are mildly distended loops of small bowel in the left upper quadrant slightly greater than prior study. There is visualized for tortuosity diverticulosis no definitive diverticulitis. The appendix is visualized and appears normal. Aorta is partially calcified. Normal inferior vena cava. Normal retroperitoneum. The bladder is decompressed the wall is mildly thickened. Normal visualized uterus. There is a calcification in the uterus measuring 1.1 x 1.0 cm compatible with a small fibroid. Normal abdominal wall. There are mild diffuse degenerative changes of the visualized lumbar spine. There is a small amount of free fluid within the right upper quadrant of the hepatic flexure anterior to the prior nephrectomy site. CT/Abdomen/Pelvis WITH Contrast IMPRESSION: Persistent left greater than right pleural effusions with slightly greater consolidation when compared to prior study. Multiple cysts throughout the liver recommend correlation with history including possible adult polycystic kidney disease. Recommend correlation with history of bilateral nephrectomies. Status post cholecystectomy Persistent small amount of free fluid ascites within the right lower quadrant slightly greater than prior study. There are mildly distended loops of small bowel within the left upper quadrant slightly greater than prior study. This may be associated with ileus possibly early partial small bowel obstruction as there is quite a bit of tortuosity within the left and midline abdomen and an apparent nonobstructing internal hernia in the small bowel with a collection of small bowel lateral to the descending colon. Decompress mildly thick walled appearance of the bladder cannot exclude cystitis. Electronically Signed: Lynn Sandoval MD at 6:25 EDT Tel , Service support ,
[2020-03-27 06:29] LABS: Absolute Lymphocyte Count 0.54 X10^3/uL (0.83-4.51); Absolute Neutrophil Count 5.1 X10^3/uL (2.0-7.7); Basophil# 0.01 X10^3/uL; Basophil% 0.1 % (0-1); Eosinophil# 0.16 X10^3/uL; Eosinophils% 2.4 % (0-5); Hematocrit 28.6 % (37-47); Lymphocyte # 0.54 X10^3/ul (4.0); Lymphocyte % 8.1 % (19-41); Mean Corp Hgb Conc 31.5 g/dL (32-36); Mean Corpuscular Hgb 29.6 pg (27.0-32.0); Mean Corpuscular Volume 94.1 fL (81-99); Mean Platelet Vol. 10.4 fl (6.2-12.0); Monocyte# 0.79 X10^3/uL; Monocyte% 11.8 % (0-10); NRBC Flagged by Analyzer 0 % (0-5); Neutrophil # 5.14 X10^3/uL (2.7-7.7); Neutrophil % 76.7 % (47-70); POSITIVE DIFFERENTIAL YES; Platelet Count 245 K/mm3 (150-450); RBC Distribution Width CV 16.5 % (11.6-14.6); RBC Distribution Width SD 55.7 fl (35.1-43.9); Red Blood Count 3.04 M/mm3 (4.2-5.4); White Blood Count 6.7 K/mm3 (4.4-11.0)
[2020-03-27 06:31] LABS: Differential Indicated SCAN CRITERIA MET
[2020-03-27 06:47] LABS: ALB/GLOB Ratio 0.5 RATIO (0.9-2.4); AST(SGOT) 34 U/L (15-37); Alanine Aminotransfer ALT/SGPT 22 U/L (13-56); Albumin, Serum 1.9 g/dL (3.2-5.0); Alkaline Phosphatase 241 U/L (45-117); Anion Gap 8 (5-15); BUN 31 mg/dL (7-18); BUN/Creat Ratio 4.4 RATIO (10-20); Calcium,Total 8.2 mg/dL (8.5-10.1); Chloride 98 mmol/L (98-107); Creatinine, Serum 7.03 mg/dL (0.55-1.02); EST Glomerular Filtration Rate 6 mL/min (>60); Est Glom Filt Rate - Afr Amer 8 mL/min (>60); Estimated Creatinine Clearance 6.34 ml/min; Globulin 3.9 g/dL (2.2-4.2); Glucose 88 mg/dL (74-106); Potassium 3.9 mmol/L (3.5-5.1); Protein, Total 5.8 g/dL (6.4-8.2); Sodium Level 134 mmol/L (136-145)
[2020-03-27 07:04] LABS: Platelet Estimate ADEQUATE (ADEQ); Red Cell Morphology NORM C+C NORMAL (NORM C&C)
--- NOTE | 2020-03-27 07:21 | PCM.PN.SRG ---
Patient Problems: Active and Suspected Problems (Last Reviewed 12/27/19 @ 14:15 by Viridiana Adam) Sepsis (Acute) LLQ abdominal pain (Acute) Subjective: Patient reports some improvement in her pain but she is still having pain. She is passing flatus with no nausea or vomiting. - Physical Exam Vitals/I&O's: Vital Signs Temp Pulse Resp BP Pulse Ox 98.8 F 74 16 103/63 96 03/27/20 06:40 03/27/20 06:45 03/27/20 06:40 03/27/20 06:40 03/27/20 06:40 Oxygen Delivery Method Room Air Weight: 143 lb 8.335 oz Body Mass Index (BMI) 28.0 Intake and Output for Last 24 Hours 03/25/20 03/26/20 03/27/20 23:59 23:59 23:59 Intake Total 1045 / 1045 790 / 910 630 / 630 Output Total 0 / 0 1000 / 1000 0 / 0 Balance 1045 / 1045 -210 / -90 630 / 630 General: Alert, Oriented x3 Lungs: Normal air movement Cardiovascular: Regular rate, Regular Rhythm Abdomen: Soft, Non-Distended, Tender - Tenderness in the left lower quadrant with no guarding or rebound Musculoskeletal: No Muscle Wasting Microbiology Past 72 Hours 03/24/20 20:00 Mucosa - Nose Respiratory Panel (PCR) - Final Laboratory Results 03/26/20 15:45: WBC 8.0, RBC 3.34 L, Hgb 9.9 L, Hct 30.9 L, MCV 92.5, MCH 29.6, MCHC 32.0, RDW Std Deviation 54.0 H, RDW Coeff of Radha 16.1 H, Plt Count 217, MPV 10.0, Immature Gran % (Auto) 0.500, Neut % (Auto) 84.7 H, Lymph % (Auto) 5.4 L, Curry % (Auto) 7.7, Eos % (Auto) 1.5, Baso % (Auto) 0.2, Absolute Neuts (auto) 6.8, Absolute Lymphs (auto) 0.43 L, Nucleated RBC % 0, Differential Comment COMMENT 03/26/20 15:45: Sodium 135 L, Potassium 4.3, Chloride 101, Carbon Dioxide 27.0, Anion Gap 7, BUN 24 H, Creatinine 5.77 H, Estim Creat Clear Calc 7.73, Est GFR (MDRD) Af Amer 10 L, Est GFR (MDRD) Non-Af 8 L, BUN/Creatinine Ratio 4.2 L, Glucose 108 H, Calcium 8.3 L, Total Bilirubin 0.60, AST 43 H, ALT 20, Alkaline Phosphatase 222 H, Total Protein 6.3 L, Albumin 1.9 L, Globulin 4.4 H, Albumin/Globulin Ratio 0.4 L 03/27/20 05:12: WBC 6.7, RBC 3.04 L, Hgb 9.0 L, Hct 28.6 L, MCV 94.1, MCH 29.6, MCHC 31.5 L, RDW Std Deviation 55.7 H, RDW Coeff of Radha 16.5 H, Plt Count 245, MPV 10.4, Immature Gran % (Auto) 0.900, Neut % (Auto) 76.7 H, Lymph % (Auto) 8.1 L, Curry % (Auto) 11.8 H, Eos % (Auto) 2.4, Baso % (Auto) 0.1, Absolute Neuts (auto) 5.1, Absolute Lymphs (auto) 0.54 L, Nucleated RBC % 0, Platelet Estimate ADEQUATE, RBC Morphology NORM C+C 03/27/20 05:12: Sodium 134 L, Potassium 3.9, Chloride 98, Carbon Dioxide 28.0, Anion Gap 8, BUN 31 H, Creatinine 7.03 H, Estim Creat Clear Calc 6.34, Est GFR (MDRD) Af Amer 8 L, Est GFR (MDRD) Non-Af 6 L, BUN/Creatinine Ratio 4.4 L, Glucose 88, Calcium 8.2 L, Total Bilirubin 0.40, AST 34, ALT 22, Alkaline Phosphatase 241 H, Total Protein 5.8 L, Albumin 1.9 L, Globulin 3.9, Albumin/Globulin Ratio 0.5 L Clinical Impression(s) from Imaging Studies Abdomen/Pelvis CT 03/27/20 06:00 IMPRESSION: Persistent left greater than right pleural effusions with slightly greater consolidation when compared to prior study. Multiple cysts throughout the liver recommend correlation with history including possible adult polycystic kidney disease. Recommend correlation with history of bilateral nephrectomies. Status post cholecystectomy Persistent small amount of free fluid ascites within the right lower quadrant slightly greater than prior study. There are mildly distended loops of small bowel within the left upper quadrant slightly greater than prior study. This may be associated with ileus possibly early partial small bowel obstruction as there is quite a bit of tortuosity within the left and midline abdomen and an apparent nonobstructing internal hernia in the small bowel with a collection of small bowel lateral to the descending colon. Decompress mildly thick walled appearance of the bladder cannot exclude cystitis. Electronically Signed: Lynn Sandoval MD at 6:25 EDT Tel , Service support , Current Medications Acetaminophen (Acetaminophen 325 Mg Tablet) 650 mg PO Q6H PRN PRN PRN Reason: Pain Score 1-10/Temp > 100.7 F Last Admin: 03/26/20 21:21 Dose: 650 mg Documented by: Pantoprazole Sodium 40 mg/ (Sodium Chloride) 110 mls @ 330 mls/hr IV Q12 MARINO Last Infusion: 03/26/20 23:45 Dose: Infused Documented by: Ibuprofen (Ibuprofen 400 Mg Tablet) 400 mg PO Q6H PRN PRN PRN Reason: Pain Score 1-10 Last Admin: 03/27/20 04:16 Dose: 400 mg Documented by: Ondansetron HCl (Ondansetron 4 Mg/2 Ml Vial) 4 mg IV Q8H PRN PRN PRN Reason: NAUSEA/VOMITING Last Admin: 03/27/20 00:23 Dose: 4 mg Documented by: Oxycodone HCl (Oxycodone 5 Mg Tablet) 5 mg PO Q6H PRN PRN PRN Reason: Pain Score 6-10 Last Admin: 03/27/20 04:15 Dose: 5 mg Documented by: Promethazine HCl (Promethazine 25 Mg/Ml Syringe) 6.25 mg IV Q6H PRN PRN PRN Reason: NAUSEA/VOMITING Last Admin: 03/27/20 04:10 Dose: 6.25 mg Documented by: Sodium Chloride (0.9% Saline Lock 10 Ml Syringe) 10 - 40 ml IV UD PRN PRN Reason: SALINE FLUSH Last Admin: 03/27/20 06:43 Dose: 10 ml Documented by: Medical Necessity - Tobacco Use Smoking Status: Never smoker Assessment/Plan All Active Problems (Last Reviewed 12/27/19 @ 14:15 by Viridiana Adam) Sepsis (Acute) LLQ abdominal pain (Acute) Hay fever (Acute) 59-year-old female with abdominal pain 1. Patient's white count is returned normal her T-max over the last 24 hours was 100.6. She is still having some left lower quadrant pain reports some improvement. I reviewed the CT scan. The very proximal small bowel was mildly dilated but the contrast made all the way to the rectum with no signs of obstruction. 2. There is mention of a possible internal hernia but I do not see any signs of ischemia or obstruction on the CT scan. I recommend continued observation as the patient has extensive adhesions likely from her multiple surgeries in the abdomen. I am reluctant to perform surgery unless absolutely necessary as her risks of injury to bowel currently outweigh the benefit. Michael Nunez MD Pager: [facility] [address] [place] [address], [address] [place] [address] Office:
--- NOTE | 2020-03-27 09:57 | PCM.PN.REN ---
Patient Problems: Active and Suspected Problems (Last Reviewed 12/27/19 @ 14:15 by Viridiana Adam) Sepsis (Acute) LLQ abdominal pain (Acute) Subjective: No more fever. still has abdominal pain No N/V/D - Physical Exam Vitals/I&O's: Vital Signs Temp Pulse Resp BP Pulse Ox 98.0 F 72 16 114/61 94 03/27/20 07:29 03/27/20 07:29 03/27/20 07:29 03/27/20 07:29 03/27/20 07:30 Oxygen Delivery Method Room Air Weight: 66.678 kg Body Mass Index (BMI) 28.0 Intake and Output for Last 24 Hours 03/25/20 03/26/20 03/27/20 23:59 23:59 23:59 Intake Total 1045 / 1045 790 / 910 630 / 630 Output Total 0 / 0 1000 / 1000 0 / 0 Balance 1045 / 1045 -210 / -90 630 / 630 General: Alert, Oriented x3 HEENT: Atraumatic Oral: Moist Mucosa Neck: Supple, No JVD Lungs: Clear to auscultation, Normal air movement, No rhonchi Cardiovascular: Regular rate, Regular Rhythm, Normal S1 Abdomen: Bowel Sounds Present, Soft, Non-Distended, Tender - LUQ and LLQ tenderness Extremities: No clubbing, No cyanosis, No edema Skin: No rashes Musculoskeletal: No Tenderness to Palpation of Joints or Extremities Lymphatic: No Cervical, Supraclavicular, or Inguinal Adenopathy Neurological: Cranial nerves II-XII grossly intact, Neuro grossly intact Psych/Mental Status: Normal Affect Microbiology Past 72 Hours 03/25/20 10:42 Blood Culture (Wb) - Left Wrist Blood Culture - Preliminary No growth in 48 hours. 03/25/20 10:40 Blood Culture (Wb) - Anticubital Left Blood Culture - Preliminary No growth in 48 hours. 03/24/20 19:55 Blood Culture (Wb) - Anticubital Left Blood Culture - Preliminary No growth in 48 hours. 03/24/20 19:55 Blood Culture (Wb) - Left Hand Blood Culture - Preliminary No growth in 48 hours. 03/24/20 20:00 Mucosa - Nose Respiratory Panel (PCR) - Final Laboratory Results 03/26/20 15:45: WBC 8.0, RBC 3.34 L, Hgb 9.9 L, Hct 30.9 L, MCV 92.5, MCH 29.6, MCHC 32.0, RDW Std Deviation 54.0 H, RDW Coeff of Radha 16.1 H, Plt Count 217, MPV 10.0, Immature Gran % (Auto) 0.500, Neut % (Auto) 84.7 H, Lymph % (Auto) 5.4 L, [place] % (Auto) 7.7, Eos % (Auto) 1.5, Baso % (Auto) 0.2, Absolute Neuts (auto) 6.8, Absolute Lymphs (auto) 0.43 L, Nucleated RBC % 0, Differential Comment COMMENT 03/26/20 15:45: Sodium 135 L, Potassium 4.3, Chloride 101, Carbon Dioxide 27.0, Anion Gap 7, BUN 24 H, Creatinine 5.77 H, Estim Creat Clear Calc 7.73, Est GFR (MDRD) Af Amer 10 L, Est GFR (MDRD) Non-Af 8 L, BUN/Creatinine Ratio 4.2 L, Glucose 108 H, Calcium 8.3 L, Total Bilirubin 0.60, AST 43 H, ALT 20, Alkaline Phosphatase 222 H, Total Protein 6.3 L, Albumin 1.9 L, Globulin 4.4 H, Albumin/Globulin Ratio 0.4 L 03/27/20 05:12: WBC 6.7, RBC 3.04 L, Hgb 9.0 L, Hct 28.6 L, MCV 94.1, MCH 29.6, MCHC 31.5 L, RDW Std Deviation 55.7 H, RDW Coeff of Radha 16.5 H, Plt Count 245, MPV 10.4, Immature Gran % (Auto) 0.900, Neut % (Auto) 76.7 H, Lymph % (Auto) 8.1 L, [place] % (Auto) 11.8 H, Eos % (Auto) 2.4, Baso % (Auto) 0.1, Absolute Neuts (auto) 5.1, Absolute Lymphs (auto) 0.54 L, Nucleated RBC % 0, Platelet Estimate ADEQUATE, RBC Morphology NORM C+C 03/27/20 05:12: Sodium 134 L, Potassium 3.9, Chloride 98, Carbon Dioxide 28.0, Anion Gap 8, BUN 31 H, Creatinine 7.03 H, Estim Creat Clear Calc 6.34, Est GFR (MDRD) Af Amer 8 L, Est GFR (MDRD) Non-Af 6 L, BUN/Creatinine Ratio 4.4 L, Glucose 88, Calcium 8.2 L, Total Bilirubin 0.40, AST 34, ALT 22, Alkaline Phosphatase 241 H, Total Protein 5.8 L, Albumin 1.9 L, Globulin 3.9, Albumin/Globulin Ratio 0.5 L Current Medications Acetaminophen (Acetaminophen 325 Mg Tablet) 650 mg PO Q6H PRN PRN PRN Reason: Pain Score 1-10/Temp > 100.7 F Last Admin: 03/26/20 21:21 Dose: 650 mg Documented by: Pantoprazole Sodium 40 mg/ (Sodium Chloride) 110 mls @ 330 mls/hr IV Q12 MARINO Last Infusion: 03/26/20 23:45 Dose: Infused Documented by: Ibuprofen (Ibuprofen 400 Mg Tablet) 400 mg PO Q6H PRN PRN PRN Reason: Pain Score 1-10 Last Admin: 03/27/20 04:16 Dose: 400 mg Documented by: Ondansetron HCl (Ondansetron 4 Mg/2 Ml Vial) 4 mg IV Q8H PRN PRN PRN Reason: NAUSEA/VOMITING Last Admin: 03/27/20 00:23 Dose: 4 mg Documented by: Oxycodone HCl (Oxycodone 5 Mg Tablet) 5 mg PO Q6H PRN PRN PRN Reason: Pain Score 6-10 Last Admin: 03/27/20 04:15 Dose: 5 mg Documented by: Promethazine HCl (Promethazine 25 Mg/Ml Syringe) 6.25 mg IV Q6H PRN PRN PRN Reason: NAUSEA/VOMITING Last Admin: 03/27/20 04:10 Dose: 6.25 mg Documented by: Sodium Chloride (0.9% Saline Lock 10 Ml Syringe) 10 - 40 ml IV UD PRN PRN Reason: SALINE FLUSH Last Admin: 03/27/20 06:43 Dose: 10 ml Documented by: Medical Necessity - Tobacco Use Smoking Status: Never smoker Assessment/Plan All Active Problems (Last Reviewed 12/27/19 @ 14:15 by Viridiana Adam) Sepsis (Acute) LLQ abdominal pain (Acute) Hay fever (Acute) 1- ESRD on HHD Patient is MWF HD while inpatient Next HD session tomorrow HD access L IJ TC 2- Anemia: Hgb is close to target 3- abdominal pain with fever fever has resolved. off Abx CT showed possible ileus or partial SBO and small intestine hernia. Surgery service is following Will continue to follow
--- NOTE | 2020-03-27 11:34 | DCINST_ITS ---
- Discharge Diagnoses Current Active Problems: Current Active and Chronic Problems (Last Reviewed 12/27/19 @ 14:15 by Viridiana Adam) Sepsis (Acute) LLQ abdominal pain (Acute) Chronic pain (Chronic) Gout (Chronic) Polycystic kidney disease (Chronic) End stage renal failure on dialysis (Chronic) You will use the following diet at home:: Calorie/Carbohydrate Controlled (specify 1200, 1400, etc), Cardiac Your food should be the consistency of: Regular Discharge Activity: Return to Normal Activity, May Not Drive - Follow up with PCP Weight Bearing Status: Weight bearing as tolerated Call your doctor if you observe: Fever of 101 or Higher, Numbness or Tingling, Change in Color, Inability to have a bowel movement, Using more than one pad per hour, Shortness of breath, Dizziness, Fainting spells, Swelling in the ankles, Prolonged hiccoughing, Increased palpitations (irregular heartbeat), Calf discomfort, Uncontrolled pain Allergies/Adverse Reactions: Allergies cephalexin Allergy (Mild, Verified 03/24/20 19:54) rash Penicillins Allergy (Verified 03/24/20 19:54) Rash codeine Adverse Reaction (Verified 03/24/20 19:54) Nausea Medications to take at Discharge Allopurinol [Zyloprim] 100 mg PO MOWEFR 09/01/16 Oxycodone [Oxyir] 5 - 10 mg PO Q4H PRN PRN 09/01/16 albuterol sulfate 90 mcg/actuation aerosol inhaler 2 puff INHALATION Q6H PRN 12/27/19 apixaban 5 mg tablet 5 mg PO BID 12/27/19 docusate sodium 100 mg capsule 100 mg PO BID 12/27/19 Sevelamer Carbonate 800 mg PO TID 01/07/20 Folic Acid/Vitamin B Comp W-C [Nephrocaps, Renaphro] 1 cap PO DAILY 03/25/20 Ondansetron HCl [Zofran] 4 mg PO Q6H PRN PRN #30 tab 03/27/20 The following prescriptions were given: Ondansetron HCl [Zofran] 4 mg PO Q6H PRN PRN #30 tab PRN Reason: Nausea Transmission Status: Pending to [facility]/pharmacy #[id number] Primary Care Physician: Raphael Russell MD [Primary Care Provider] - Please follow up with your Primary Care Physician in: in 1-2 weeks Test Results: Test results from this visit will be discussed in further detail at your follow- up appointment, if applicable. Please Follow Up With: Simi Lau MD When: for ESRD onHD Please Follow Up With: Michael Nunez MD When: IN 2-3 weeks for ileus/abdominal pain
--- NOTE | 2020-03-27 11:36 | PCM.DC.SUM ---
Discharge Date and Diagnosis - Problem List Patient Problems: Active and Suspected Problems (Last Reviewed 12/27/19 @ 14:15 by Viridiana Adam) Sepsis (Acute) LLQ abdominal pain (Acute) Date of Admission: 03/25/20 Date of Discharge: 03/27/20 - Primary Discharge Diagnosis Acute Problems: Active Problems (Last Reviewed 12/27/19 @ 14:15 by Viridiana Adam) Sepsis (Acute) LLQ abdominal pain (Acute) - Secondary Discharge Diagnosis Chronic Problems: Chronic Problems (Last Reviewed 12/27/19 @ 14:15 by Viridiana Adam) Chronic pain (Chronic) Gout (Chronic) Polycystic kidney disease (Chronic) End stage renal failure on dialysis (Chronic) Hospital Course and Treatment Imaging Results: 03/27/20 06:00 CT Abd [Abdomen/Pelvis WITH Contrast] [CT] Urgent Operations: None Summary of Care Provided: [] This 59-year-old question female admitted for fever and left lower quadrant abdominal pain from ER. 1. Fever of unclear focus, most probably inflammatory: Patient was admitted to PCU. 4 blood cultures negative for more than 48 hours. Res panel negative. Patient got 1 dose of vancomycin and meropenem in ER and after that no fever off antibiotics. Seen by CHRISTIAN and rik for discharge. No line Sepsis. Permacath site, no swelling, induration or tenderness. 2. Left sided abd pain, most likely from small bowel ileus: Patient had 2 times loose bowel movement probably from oral contrast. Repeat CT abdomen with oral contrast shows a small bowel mild dilatation but contrast reaching all the way to the rectum with no sign of obstruction. Discussed with surgeon for radiological report mentioning possible internal hernia but no sign of ischemia or obstruction. Continue diet. Patient did not had diarrhea before oral contrast therefore history not suggestive of acute gastroenteritis. 3. ESRD on HD history of polycystic kidney disease status post bilateral nephrectomy: Pt does self dialysis. 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 DVT Prophylaxis: B/L SCD Discharge medication reconciliation done. Discharge follow-up instructions completed. Discharge process discussed with the patient and all questions were answered to patient's satisfaction. Total time spent, exact 35 minutes on discharge meds reconciliation, examination, coordination of care with nurses and ancillary staff, review of imaging and blood test and discussion with the patient on follow-up instructions Patient Problems: Active and Suspected Problems (Last Reviewed 12/27/19 @ 14:15 by Viridiana Adam) Sepsis (Acute) LLQ abdominal pain (Acute) Objective: Seen and examined. No fever for 36 hours. T-max 100.6 Fahrenheit on 03/26 time. Seen by ID. Kumar to discharge off antibiotic. Patient had 2 times loose bowel movement most probably from oral contrast. Discussed with the surgeon. No nausea or vomiting. Patient does self hemodialysis at home. Physical exam General: Alert, Oriented x3, Cooperative HEENT: Atraumatic, PERRLA, EOMI, Normocephalic Oral: No Gingival or Mucosal Lesions/ Ulcerations, Dry Mucosa Neck: Supple, No JVD, Negative Carotid Bruits Lungs: Clear to auscultation, Normal air movement, No rhonchi, No wheeze, No rales. Right permacath no tenderness, swelling or induration. No cellulitis. Cardiovascular: Regular rate, Regular Rhythm, Normal S1, Normal S2, No murmurs, - - SINUS Rhythm on night monitor Abdomen: Bowel Sounds Present, Soft, Non-Distended, No Hepato-splenomegaly, Passing Flatus, Mild deep tenderness on left lumbar region. No guarding/rigidity : On HD. B/L nephrectomies Extremities: No edema, Capillary Refill Less than 3 Seconds Skin: No rashes, No breakdown Musculoskeletal: No Tenderness to Palpation of Joints or Extremities, Arthritic Changes Neurological: Cranial nerves II-XII grossly intact, Deep Tendon Reflexes 2+/4 and Symmetrical, Neuro grossly intact Psych/Mental Status: Normal Affect, Appropriate - Physical Exam Vitals/I&O's: Vital Signs Temp Pulse Resp BP Pulse Ox 98.0 F 72 16 114/61 94 03/27/20 07:29 03/27/20 07:29 03/27/20 07:29 03/27/20 07:29 03/27/20 07:30 Oxygen Delivery Method Room Air Weight: 147 lb Body Mass Index (BMI) 28.0 Intake and Output for Last 24 Hours 03/25/20 03/26/20 03/27/20 23:59 23:59 23:59 Intake Total 1045 / 1045 790 / 910 740 / 740 Output Total 0 / 0 1000 / 1000 0 / 0 Balance 1045 / 1045 -210 / -90 740 / 740 Microbiology Past 72 Hours 10/20/20 10:42 Blood Culture (Wb) - Left Wrist Blood Culture - Preliminary No growth in 48 hours. 03/25/20 10:40 Blood Culture (Wb) - Anticubital Left Blood Culture - Preliminary No growth in 48 hours. 03/24/20 19:55 Blood Culture (Wb) - Anticubital Left Blood Culture - Preliminary No growth in 48 hours. 03/24/20 19:55 Blood Culture (Wb) - Left Hand Blood Culture - Preliminary No growth in 48 hours. 03/24/20 20:00 Mucosa - Nose Respiratory Panel (PCR) - Final Laboratory Results 03/26/20 15:45: WBC 8.0, RBC 3.34 L, Hgb 9.9 L, Hct 30.9 L, MCV 92.5, MCH 29.6, MCHC 32.0, RDW Std Deviation 54.0 H, RDW Coeff of Radha 16.1 H, Plt Count 217, MPV 10.0, Immature Gran % (Auto) 0.500, Neut % (Auto) 84.7 H, Lymph % (Auto) 5.4 L, [place] % (Auto) 7.7, Eos % (Auto) 1.5, Baso % (Auto) 0.2, Absolute Neuts (auto) 6.8, Absolute Lymphs (auto) 0.43 L, Nucleated RBC % 0, Differential Comment COMMENT 03/26/20 15:45: Sodium 135 L, Potassium 4.3, Chloride 101, Carbon Dioxide 27.0, Anion Gap 7, BUN 24 H, Creatinine 5.77 H, Estim Creat Clear Calc 7.73, Est GFR (MDRD) Af Amer 10 L, Est GFR (MDRD) Non-Af 8 L, BUN/Creatinine Ratio 4.2 L, Glucose 108 H, Calcium 8.3 L, Total Bilirubin 0.60, AST 43 H, ALT 20, Alkaline Phosphatase 222 H, Total Protein 6.3 L, Albumin 1.9 L, Globulin 4.4 H, Albumin/Globulin Ratio 0.4 L 03/27/20 05:12: WBC 6.7, RBC 3.04 L, Hgb 9.0 L, Hct 28.6 L, MCV 94.1, MCH 29.6, MCHC 31.5 L, RDW Std Deviation 55.7 H, RDW Coeff of Radha 16.5 H, Plt Count 245, MPV 10.4, Immature Gran % (Auto) 0.900, Neut % (Auto) 76.7 H, Lymph % (Auto) 8.1 L, [place] % (Auto) 11.8 H, Eos % (Auto) 2.4, Baso % (Auto) 0.1, Absolute Neuts (auto) 5.1, Absolute Lymphs (auto) 0.54 L, Nucleated RBC % 0, Platelet Estimate ADEQUATE, RBC Morphology NORM C+C 03/27/20 05:12: Sodium 134 L, Potassium 3.9, Chloride 98, Carbon Dioxide 28.0, Anion Gap 8, BUN 31 H, Creatinine 7.03 H, Estim Creat Clear Calc 6.34, Est GFR (MDRD) Af Amer 8 L, Est GFR (MDRD) Non-Af 6 L, BUN/Creatinine Ratio 4.4 L, Glucose 88, Calcium 8.2 L, Total Bilirubin 0.40, AST 34, ALT 22, Alkaline Phosphatase 241 H, Total Protein 5.8 L, Albumin 1.9 L, Globulin 3.9, Albumin/Globulin Ratio 0.5 L Current Medications Acetaminophen (Acetaminophen 325 Mg Tablet) 650 mg PO Q6H PRN PRN PRN Reason: Pain Score 1-10/Temp > 100.7 F Last Admin: 03/26/20 21:21 Dose: 650 mg Documented by: Pantoprazole Sodium 40 mg/ (Sodium Chloride) 110 mls @ 330 mls/hr IV Q12 MARINO Last Infusion: 03/27/20 10:57 Dose: Infused Documented by: Ibuprofen (Ibuprofen 400 Mg Tablet) 400 mg PO Q6H PRN PRN PRN Reason: Pain Score 1-10 Last Admin: 03/27/20 10:16 Dose: 400 mg Documented by: Ondansetron HCl (Ondansetron 4 Mg/2 Ml Vial) 4 mg IV Q8H PRN PRN PRN Reason: NAUSEA/VOMITING Last Admin: 03/27/20 00:23 Dose: 4 mg Documented by: Oxycodone HCl (Oxycodone 5 Mg Tablet) 5 mg PO Q6H PRN PRN PRN Reason: Pain Score 6-10 Last Admin: 03/27/20 10:15 Dose: 5 mg Documented by: Promethazine HCl (Promethazine 25 Mg/Ml Syringe) 6.25 mg IV Q6H PRN PRN PRN Reason: NAUSEA/VOMITING Last Admin: 03/27/20 04:10 Dose: 6.25 mg Documented by: Sodium Chloride (0.9% Saline Lock 10 Ml Syringe) 10 - 40 ml IV UD PRN PRN Reason: SALINE FLUSH Last Admin: 03/27/20 10:16 Dose: 10 ml Documented by: Discharge Activity: Return to Normal Activity, May Not Drive - Follow up with PCP Weight Bearing Status: Weight bearing as tolerated Call your doctor if you observe: Fever of 101 or Higher, Numbness or Tingling, Change in Color, Inability to have a bowel movement, Using more than one pad per hour, Shortness of breath, Dizziness, Fainting spells, Swelling in the ankles, Prolonged hiccoughing, Increased palpitations (irregular heartbeat), Calf discomfort, Uncontrolled pain Home Medications: Medications to take at Discharge Allopurinol [Zyloprim] 100 mg PO MOWEFR 09/01/16 Oxycodone [Oxyir] 5 - 10 mg PO Q4H PRN PRN 09/01/16 albuterol sulfate 90 mcg/actuation aerosol inhaler 2 puff INHALATION Q6H PRN 12/27/19 apixaban 5 mg tablet 5 mg PO BID 12/27/19 docusate sodium 100 mg capsule 100 mg PO BID 12/27/19 Sevelamer Carbonate 800 mg PO TID 01/07/20 Folic Acid/Vitamin B Comp W-C [Nephrocaps, Renaphro] 1 cap PO DAILY 03/25/20 Ondansetron HCl [Zofran] 4 mg PO Q6H PRN PRN #30 tab 03/27/20 Following Prescriptions Were Given to Patient: Ondansetron HCl [Zofran] 4 mg PO Q6H PRN PRN #30 tab PRN Reason: Nausea Transmission Status: Received by [facility]/pharmacy #[id number] Primary Care Physician: Raphael Russell MD [Primary Care Provider] - Please follow up with your Primary Care Physician in: in 1-2 weeks Please Follow Up With: Simi Lau MD When: for ESRD onHD Please Follow Up With: Michael Nunez MD When: IN 2-3 weeks for ileus/abdominal pain Medical Necessity - Tobacco Use Smoking Status: Never smoker Meaningful Use Info Meaningful Use Diagnoses (Choose all that apply): None applicable Inpatient E&M: 21154 Disch Hosp
--- NOTE | 2020-03-27 15:24 | PN.ID_ITS ---
Patient Problems: Active and Suspected Problems (Last Reviewed 12/27/19 @ 14:15 by Viridiana Adam) Sepsis (Acute) LLQ abdominal pain (Acute) Subjective: Feeling better, abd pain improved, no fever - Physical Exam Vitals/I&O's: Vital Signs Temp Pulse Resp BP Pulse Ox 97.6 F L 75 16 123/68 H 97 03/27/20 15:09 03/27/20 15:09 03/27/20 15:09 03/27/20 15:09 03/27/20 15:09 Oxygen Delivery Method Room Air Weight: 66.678 kg Body Mass Index (BMI) 28.0 Intake and Output for Last 24 Hours 03/25/20 03/26/20 03/27/20 23:59 23:59 23:59 Intake Total 1045 / 1045 790 / 910 1140 / 1140 Output Total 0 / 0 1000 / 1000 0 / 0 Balance 1045 / 1045 -210 / -90 1140 / 1140 General: Alert, Cooperative, No apparent distress Lungs: Clear to auscultation, Normal air movement Cardiovascular: Regular rate, Regular Rhythm Abdomen: Soft, Non Tender, Non-Distended Skin: No rashes Microbiology Past 72 Hours 03/25/20 10:42 Blood Culture (Wb) - Left Wrist Blood Culture - Preliminary No growth in 48 hours. 03/25/20 10:40 Blood Culture (Wb) - Anticubital Left Blood Culture - Preliminary No growth in 48 hours. 03/24/20 19:55 Blood Culture (Wb) - Anticubital Left Blood Culture - Preliminary No growth in 48 hours. 03/24/20 19:55 Blood Culture (Wb) - Left Hand Blood Culture - Preliminary No growth in 48 hours. 03/24/20 20:00 Mucosa - Nose Respiratory Panel (PCR) - Final Laboratory Results 03/26/20 15:45: WBC 8.0, RBC 3.34 L, Hgb 9.9 L, Hct 30.9 L, MCV 92.5, MCH 29.6, MCHC 32.0, RDW Std Deviation 54.0 H, RDW Coeff of Radha 16.1 H, Plt Count 217, MPV 10.0, Immature Gran % (Auto) 0.500, Neut % (Auto) 84.7 H, Lymph % (Auto) 5.4 L, [place] % (Auto) 7.7, Eos % (Auto) 1.5, Baso % (Auto) 0.2, Absolute Neuts (auto) 6.8, Absolute Lymphs (auto) 0.43 L, Nucleated RBC % 0, Differential Comment COMMENT 03/26/20 15:45: Sodium 135 L, Potassium 4.3, Chloride 101, Carbon Dioxide 27.0, Anion Gap 7, BUN 24 H, Creatinine 5.77 H, Estim Creat Clear Calc 7.73, Est GFR (MDRD) Af Amer 10 L, Est GFR (MDRD) Non-Af 8 L, BUN/Creatinine Ratio 4.2 L, Glucose 108 H, Calcium 8.3 L, Total Bilirubin 0.60, AST 43 H, ALT 20, Alkaline Phosphatase 222 H, Total Protein 6.3 L, Albumin 1.9 L, Globulin 4.4 H, Albumin/Globulin Ratio 0.4 L 03/27/20 05:12: WBC 6.7, RBC 3.04 L, Hgb 9.0 L, Hct 28.6 L, MCV 94.1, MCH 29.6, MCHC 31.5 L, RDW Std Deviation 55.7 H, RDW Coeff of Radha 16.5 H, Plt Count 245, MPV 10.4, Immature Gran % (Auto) 0.900, Neut % (Auto) 76.7 H, Lymph % (Auto) 8.1 L, [place] % (Auto) 11.8 H, Eos % (Auto) 2.4, Baso % (Auto) 0.1, Absolute Neuts (auto) 5.1, Absolute Lymphs (auto) 0.54 L, Nucleated RBC % 0, Platelet Estimate ADEQUATE, RBC Morphology NORM C+C 03/27/20 05:12: Sodium 134 L, Potassium 3.9, Chloride 98, Carbon Dioxide 28.0, Anion Gap 8, BUN 31 H, Creatinine 7.03 H, Estim Creat Clear Calc 6.34, Est GFR (MDRD) Af Amer 8 L, Est GFR (MDRD) Non-Af 6 L, BUN/Creatinine Ratio 4.4 L, Glucose 88, Calcium 8.2 L, Total Bilirubin 0.40, AST 34, ALT 22, Alkaline Phosphatase 241 H, Total Protein 5.8 L, Albumin 1.9 L, Globulin 3.9, Albumin/Globulin Ratio 0.5 L Current Medications Acetaminophen (Acetaminophen 325 Mg Tablet) 650 mg PO Q6H PRN PRN PRN Reason: Pain Score 1-10/Temp > 100.7 F Last Admin: 03/26/20 21:21 Dose: 650 mg Documented by: Pantoprazole Sodium 40 mg/ (Sodium Chloride) 110 mls @ 330 mls/hr IV Q12 MARINO Last Infusion: 03/27/20 10:57 Dose: Infused Documented by: Ibuprofen (Ibuprofen 400 Mg Tablet) 400 mg PO Q6H PRN PRN PRN Reason: Pain Score 1-10 Last Admin: 03/27/20 10:16 Dose: 400 mg Documented by: Ondansetron HCl (Ondansetron 4 Mg/2 Ml Vial) 4 mg IV Q8H PRN PRN PRN Reason: NAUSEA/VOMITING Last Admin: 03/27/20 00:23 Dose: 4 mg Documented by: Oxycodone HCl (Oxycodone 5 Mg Tablet) 5 mg PO Q6H PRN PRN PRN Reason: Pain Score 6-10 Last Admin: 03/27/20 10:15 Dose: 5 mg Documented by: Promethazine HCl (Promethazine 25 Mg/Ml Syringe) 6.25 mg IV Q6H PRN PRN PRN Reason: NAUSEA/VOMITING Last Admin: 03/27/20 04:10 Dose: 6.25 mg Documented by: Sodium Chloride (0.9% Saline Lock 10 Ml Syringe) 10 - 40 ml IV UD PRN PRN Reason: SALINE FLUSH Last Admin: 03/27/20 10:16 Dose: 10 ml Documented by: Medical Necessity - Tobacco Use Smoking Status: Never smoker Route of nutrition/ use of supplements: [] Nutritional Intake: [] IV Site: [] White Catheter: [] - Assessment/Plan Antibiotics: [] Assessment/Plan: [] Active and Suspected Problems (Last Reviewed 12/27/19 @ 14:15 by Viridiana Martínez on) Sepsis (Acute) abd pain and SIRS - bcx neg so far. Presented with fever, abd pain, fatigue. Covid neg. Wbc and temp normal, cont to monitor off of abx for now. Only got single dose of meropenem and vanc in the ED. Abd pain much improved, reviewed CT results. Ok for d/c home. Will follow
--- NOTE | 2020-03-28 14:39 | CASEMGMT ---
KIARA QUIROS Discharge Follow-Up Phone Call. Lace:??11?Strata: 3 Discharge Date: 03/27/20 Adm Dx:?? Fever, Abd pain, discomfort Call to pt to inquire about how?she?has been doing since being discharged from the hospital.? She states she has still been having pain in her stomach, but that it has not worsened. She states the doctor informed her it would take awhile to subside. She takes Tylenol or Oxycodone for it, but has only needed to take the Oxycodone once today so far. She will do Home HD this evening @ 5 PM and plans to take it again after that if needed. She says if the pain does not subside by Tuesday that We'll have to do something different. KIARA QUIROS advised her to contact either Dr Nunez's office or Dr Russell's office to let them know and to inquire if she can be seen earlier than scheduled appts and she states plans to do this. She states she has not made a f/u appt with Dr Lau yet, but plans to do so. She has not picked up the Zofran yet, as she had enough supply of it @ home, but her plans to pick it up today so she will not run out of it. She denies having any questions about the medications or discharge instructions or any questions/concerns/needs. KIARA QUIROS thanked pt for choosing [facility]. Kevin JOYNER RN, CM
== END 2020-03-27 16:13 | disposition home or self-care (01) | DRG 871 ==
LOC: ED 23:31 → MS3 03-25 00:45 → PCU 03-25 03:22
PROVIDERS: Admitting Provider Family Medicine; Emergency Provider Emergency Medicine; PCP Family Medicine; Referring Provider Family Medicine; Visit Provider Internal Medicine
DX: A41.9 Sepsis, unspecified organism (principal); N18.6 End stage renal disease; Q61.3 Polycystic kidney, unspecified; K56.7 Ileus, unspecified; D64.9 Anemia, unspecified; D25.9 Leiomyoma of uterus, unspecified; G89.29 Other chronic pain; M1A.9XX0 Chronic gout, unspecified, without tophus (tophi); Z99.2 Dependence on renal dialysis; Z90.49 Acquired absence of other specified parts of digestive tract; Z90.5 Acquired absence of kidney; Z82.71 Family history of polycystic kidney; Z79.01 Long term (current) use of anticoagulants; D72.810 Lymphocytopenia; R09.02 Hypoxemia; K66.0 Peritoneal adhesions (postprocedural) (postinfection)
CPT/HCPCS: 36415; 71045; 74176; 74177; 80048; 80053; 80076; 83605; 83690; 85025; 87040; 87633; 87635; 90937; 93005; 97802; 99285; J2185; J7030; J7040; Q9967; A4216; G0257; J2405; U0003

== ENCOUNTER → 2020-04-22 12:12 | Outpatient (CLI) | payer MEDICARE, OTHER, SELFPAY ==
[2020-03-25 01:01] VITALS: BMI 28.0
--- NOTE | 2020-04-22 12:14 | RAD_ITS ---
STUDY: X-RAY CHEST REASON FOR EXAM: Female, 59 years old. Sob TECHNIQUE: Single AP portable view of the chest. COMPARISON: Comparison is made with prior study 03/24/2020. FINDINGS: A left sided dual lumen catheter seen with the tip at the junction of the superior vena cava and right atrium. A covered vascular stent is seen in the left axillary artery or vein. Mild degree of vascular congestion. There is no demonstrated pleural abnormality. There is borderline cardiomegaly. Normal mediastinum and laxim. Normal visualized pulmonary arteries. There is atherosclerotic tortuosity of the aortic arch and descending thoracic aorta. Normal visualized thoracic spine. Normal visualized ribs, clavicles, and shoulders. There is no demonstrated abnormality of the visualized soft tissue structures of the upper abdomen. RAD/Chest PA and Lateral IMPRESSION: Findings suggest a mild degree of vascular congestion. Electronically Signed: Jourdan Marquis, at 15:54 EST , Service support ,
== END ==
PROVIDERS: PCP Family Medicine; Referring Provider Family Medicine; Visit Provider Family Medicine
DX: R06.02 Shortness of breath (principal)
CPT/HCPCS: 36415; 71046; 83880

== ENCOUNTER 2020-04-24 18:02 | Inpatient (IN) | payer MEDICARE, OTHER, SELFPAY ==
[2020-03-25 01:01] VITALS: BMI 28.0
[2020-04-24] VITALS (11 sets, daily range): BP systolic 149–160; BP diastolic 92–114; PULSE 90–103; RESP 16–18; TEMP 36.3–36.9; O2SAT 97–98; BMI 28.0; BMI 27.8
--- NOTE | 2020-04-24 18:49 | EKG12_ITS ---
Test Reason : RENAL Blood Pressure : / mmHG Vent. Rate : 100 BPM Atrial Rate : 100 BPM P-R Int : 142 ms QRS Dur : 070 ms QT Int : 382 ms P-R-T Axes : 054 -02 128 degrees QTc Int : 492 ms Normal sinus rhythm T wave abnormality, consider lateral ischemia Prolonged QT Abnormal ECG Confirmed by LAMBERTO YING, DAHLIA ([id number]), brands editor KIMMY LAMB ([id number]) on 04/28/2020 9:43:11 AM Referred By: Confirmed By:DAHLIA ORANTES MD
--- NOTE | 2020-04-24 19:13 | ED.DCSUM_ITS ---
History of Present Illness Chief Complaint: Shortness of Breath Informant: Patient Onset: Weeks - 3 to 4 weeks Context: Gradual Onset Timing: Continuous Quality: Dyspnea and dyspnea on exertion Location: Respiratory Worsened by: Exertion Relieved by: Better with rest Associated Symptoms: Edema, chest x-ray that revealed congestive heart failure Narrative: Patient is a 59-year-old woman on hemodialysis Tuesday, Tuesday, Tuesday and Tuesday. She had extra fluid taken off last dialysis. Chest x-ray revealed mild congestive heart failure. She has no history of coronary disease or congestive heart failure. She had both her kidneys removed because of polycystic kidney disease. She makes no urine. She has been on the transplant list for 9 years. She denies fever, chills night sweats. She denies rhinorrhea, congestion or postnasal drainage. Denies sore throat. Denies change or loss of taste or smell. She has chronic edema of the lower extremities. She denies nausea, vomiting diarrhea. She denies anginal chest pain. Prior similar symptoms: Yes Recent Illness/Hospitalization: Yes - Past Medical History (1) Chronic pain Status: Chronic (2) End stage renal failure on dialysis Status: Chronic (3) Gout Status: Chronic (4) Polycystic kidney disease Status: Chronic Past Medical History - Allergies and Home Meds Allergies/Adverse Reactions: Allergies cephalexin Allergy (Mild, Verified 03/24/20 19:54) rash Penicillins Allergy (Verified 03/24/20 19:54) Rash codeine Adverse Reaction (Verified 03/24/20 19:54) Nausea Primary Care Physician: Raphael Russell MD [Primary Care Provider] - Prior records reviewed: Yes Surgical History: cholecystectomy, - - bilat nephrectomy Lives: Alone Smoking Status: Never smoker Alcohol: None Drugs: None - Family History Maternal Family History: Family History (Last Updated 12/27/19 @ 14:17 by Viridiana Adam) Father Aneurysm Family History: Reports: - - Denies maternal cardiac history or other significant medical history. Paternal Family History: Family History (Last Updated 12/27/19 @ 14:17 by Viridiana Adam) Father Aneurysm Family History: Reports: - - Polycystic kidney disease Review of Systems General: Denies: Chills, Fever, Malaise, Subjective Eyes: Denies: Visual changes - bilaterally, Blurred Vision - bilaterally ENT: Denies: Bilateral ear pain, Rhinorrhea, Sore throat Cardiovascular: Denies: Chest pain, Palpitations, Heart racing Respiratory: Reports: Dyspnea, Dyspnea on exertion. Denies: Cough, Sputum, Orthopnea, Paroxysmal nocturnal dyspnea Gastrointestinal: Denies: Abdominal pain, Nausea, Vomiting, Diarrhea, Melena, Hematochezia Genitourinary: Reports: - - Patient is status post bilateral nephrectomy and does not make urine. Musculoskeletal: Reports: Swelling. Denies: Myalgias, Arthralgias, Neck pain Skin: Denies: Rash, Wounds Neurological: Denies: Headache, Weakness Psych: Reports: Depression Endocrine: Denies: Polyuria, Polydipsia Hematologic: Denies: Easy bruising, Easy bleeding Physical Exam Vital Signs/Narrative: Vital Signs Temp Pulse Resp BP Pulse Ox 04/24/20 18:05 97.3 F L 103 H 16 154/112 H 98 04/24/20 18:03 97.3 F L 100 16 154/112 H 98 Inital Vital Signs reviewed: Yes General: Well nourished, Well developed, No Acute Distress Head: Normocephalic, Atraumatic Eyes: Perrl, EOMI. Negative for: Pale conjunctiva, Scleral icterus ENT: Negative for: No rhinorrhea, TM's clear Neck: Supple, Nontender, No lymphadenopathy, No JVD Cardiovascular: Regular rate, Regular rhythm, No murmurs, Normal S1, Normal S2 Respiratory: No distress, Chest nontender, Rales - Rales bilaterally. Abdomen: Soft, Nontender, Nondistended, Normal bowel sounds, No masses. Negative for: Pulsatile mass Rectal: Deferred Back: Nontender, Normal Inspection Extremities: Nontender, Edema Skin: Normal color, No rash Neurological: Alert, Oriented x3, Cranial nerves II-XII grossly intact, Normal Strength, Normal Sensation Psychological: Depressed Diagnostic/Tx/Re-eval Chest X-Ray - ED: 2 View, Normal, Heart, Bony Structures, CHF 04/24/20 20:05 Chest PA and Lateral [RAD] Stat Laboratory Results 04/24/20 04/24/20 04/24/20 19:35 19:35 19:35 WBC 8.2 RBC 3.92 L Hgb 11.0 L Hct 36.7 L MCV 93.6 MCH 28.1 MCHC 30.0 L RDW Std Deviation 57.3 H RDW Coeff of Radha 16.9 H Plt Count 351 MPV 10.4 Immature Gran % (Auto) 0.100 Neut % (Auto) 68.0 Lymph % (Auto) 17.4 L Mower % (Auto) 9.7 Eos % (Auto) 3.5 Baso % (Auto) 1.3 H Absolute Neuts (auto) 5.6 Absolute Lymphs (auto) 1.43 Nucleated RBC % 0 Sodium 139 Potassium 4.8 Chloride 103 Carbon Dioxide 30.0 Anion Gap 6 BUN 30 H Creatinine 6.16 H Estim Creat Clear Calc 7.24 Est GFR (MDRD) Af Amer 9 L Est GFR (MDRD) Non-Af 7 L BUN/Creatinine Ratio 4.9 L Glucose 100 Calcium 9.3 Troponin I 0.043 B-Natriuretic Peptide 3786.5 H Elevated troponin and BNP will have hospitalist see for further work-up. This may be due to her renal failure versus other cause. Since she states they took extra fluid off and she has not improved need to evaluate for new onset con gestive heart failure and determine etiology. - EKG Initial EKG Interpretation: Sinus Tachycardia - Sinus tachycardia rate of 100, WV interval 1 42 ms. QS duration 70 ms. QTc 492 ms which is prolonged. There are nonspecific ST-T wave changes in the lateral leads which may represent ischemia. - Medical Decision Making Medically patient is probably fluid overloaded. Troponin and BNP were obtained to assess for cardiac ischemia as well as EKG. Chest x-ray to see if there is any improvement from 2 days ago. ED Disposition - Plan for ED Patient: Disposition: Acute Care Hospital [facility] Diagnosis: New onset of congestive heart failure, Elevated troponin I level, Hemodialysis patient Referrals: Raphael Russell MD [Primary Care Provider] -
[2020-04-24 19:52] LABS: Absolute Lymphocyte Count 1.43 X10^3/uL (0.83-4.51); Absolute Neutrophil Count 5.6 X10^3/uL (2.0-7.7); Basophil# 0.11 X10^3/uL; Basophil% 1.3 % (0-1); Eosinophil# 0.29 X10^3/uL; Eosinophils% 3.5 % (0-5); Hematocrit 36.7 % (37-47); Lymphocyte # 1.43 X10^3/ul (4.0); Lymphocyte % 17.4 % (19-41); Mean Corpuscular Hgb 28.1 pg (27.0-32.0); Mean Corpuscular Volume 93.6 fL (81-99); Mean Platelet Vol. 10.4 fl (6.2-12.0); Monocyte% 9.7 % (0-10); NRBC Flagged by Analyzer 0 % (0-5); Neutrophil # 5.58 X10^3/uL (2.7-7.7); Platelet Count 351 K/mm3 (150-450); RBC Distribution Width CV 16.9 % (11.6-14.6); RBC Distribution Width SD 57.3 fl (35.1-43.9); Red Blood Count 3.92 M/mm3 (4.2-5.4); White Blood Count 8.2 K/mm3 (4.4-11.0)
--- NOTE | 2020-04-24 20:05 | RAD_ITS ---
STUDY: X-RAY CHEST REASON FOR EXAM: Female, 59 years old. SOB, RALES, EDEMA, ORTHOPNEA, STAGE 5 KIDNEY DISEASE. TECHNIQUE: Frontal and lateral views of the chest. COMPARISON: 04/22/2020. FINDINGS: There is hyperinflation of the lungs consistent with chronic obstructive lung disease (COPD). Mild interstitial prominence, probably interstitial edema. Mild atelectasis or infiltrate in both lung bases with small effusions. These were not present previously. Heart size normal. Double-lumen dialysis catheter terminates near the cavoatrial junction, stable. Stable left-sided axillary and subclavian vascular stents. RAD/Chest PA and Lateral IMPRESSION: Probable development of mild interstitial edema and mild atelectasis or infiltrate in the lung bases with small effusions. Electronically Signed: Sloan Traore MD at 21:30 EST , Service support ,
[2020-04-24 20:30] LABS: Anion Gap 6 (5-15); BUN 30 mg/dL (7-18); BUN/Creat Ratio 4.9 RATIO (10-20); Calcium,Total 9.3 mg/dL (8.5-10.1); Chloride 103 mmol/L (98-107); Creatinine, Serum 6.16 mg/dL (0.55-1.02); EST Glomerular Filtration Rate 7 mL/min (>60); Est Glom Filt Rate - Afr Amer 9 mL/min (>60); Estimated Creatinine Clearance 7.24 ml/min; Glucose 100 mg/dL (74-106); Potassium 4.8 mmol/L (3.5-5.1); Sodium Level 139 mmol/L (136-145)
--- NOTE | 2020-04-24 21:25 | HP.PCM_ITS ---
Problem List (1) New onset of congestive heart failure Status: Acute (2) Hemodialysis patient Status: Chronic (3) Chronic pain Status: Chronic Qualifiers: Chronic pain type: other chronic pain Qualified Code(s): G89.29 - Other chronic pain (4) Polycystic kidney disease Status: Chronic (5) End stage renal failure on dialysis Status: Chronic History of Present Illness Date of Admission: 04/24/20 Chief Complaint: Dyspnea, orthopnea The patient is a 59 y/o M w/ PMHx: AOCD, Hx PCKD s/p BL nephrectomy with ESRD on HD at home MWFS, Chronic pain syndrome with history of recent PCP evaluation with referral to cardiology for ongoing issues with CHF who now presents to the [facility] ED on 04/24/20 with history of 3-4 weeks of worsening dyspnea, worse with exertion in addition to significant orthopnea. She notes that she had seen her primary care physician who obtained a chest x-ray and had been referred to see Dr. Polo but does not have a visit until the following week. She also was in touch with her charter representative and they took increased fluid off at her home dialysis the day prior. In the emergency room patient is extremely tearful as she notes she is scared and uncomfortable with her dyspnea. Work-up in the ED included T 97.3, heart rate 100, BP 154/112, respiratory rate 16, 98% on room air, CBC with WBC 8.2, hemoglobin 11, platelets 351 with no significant left shift noted, BMP with BUN/creatinine 30/6.16, troponin 0 0.043, BNP 3786.5, EKG with sinus rhythm, CXR with ongoing volume overload. Past Medical History Past Medical History (Chronic Problems): Chronic Problems (Last Reviewed 12/27/19 @ 14:15 by Viridiana Adam) Hemodialysis patient (Chronic) Chronic pain (Chronic) Gout (Chronic) Polycystic kidney disease (Chronic) End stage renal failure on dialysis (Chronic) Medical History: Medical History (Last Reviewed 12/27/19 @ 14:15 by Viridiana Adam) Hay fever (Acute) J30.1 Chronic pain (Chronic) G89.29 Gout (Chronic) M10.9 Allergies cephalexin Allergy (Mild, Verified 03/24/20 19:54) rash Penicillins Allergy (Verified 03/24/20 19:54) Rash codeine Adverse Reaction (Verified 03/24/20 19:54) Nausea Home Medications: Ambulatory Orders Medication Instructions Recorded Allopurinol [Zyloprim] 100 mg PO MOWEFR 09/01/16 Oxycodone [Oxyir] 5 - 10 mg PO Q4H PRN PRN 09/01/16 albuterol sulfate 90 mcg/actuation 2 puff INHALATION Q6H PRN 12/27/19 aerosol inhaler apixaban 5 mg tablet 5 mg PO BID 12/27/19 docusate sodium 100 mg capsule 100 mg PO BID 12/27/19 Sevelamer Carbonate 800 mg PO TID 01/07/20 Folic Acid/Vitamin B Comp W-C 1 cap PO DAILY 03/25/20 [Nephrocaps, Renaphro] Ondansetron HCl [Zofran] 4 mg PO Q6H PRN PRN #30 tab 03/27/20 Surgical History: Surgical History (Last Updated 12/27/19 @ 14:16 by Viridiana Adam) History of Z98.891 x2 S/P cholecystectomy Z90.49 S/p nephrectomy Z90.5 bilateral s/p port placement Surgical History: cholecystectomy, - - Bilateral nephrectomy, x2, cholecystectomy, port placement, prior AVF and graft. 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 Paternal Family History: Family History (Last Updated 12/27/19 @ 14:17 by Viridiana Adam) Father Aneurysm History Items: - - Father with history of polycystic kidney disease, aneurysm. Review of Systems Constitutional: Reports: Malaise, Weakness, Fatigue. Denies: Anorexia, Chills, Fever, Weight Change HEENT: Denies: Head Aches, Sinus Congestion, Sinus Drainage Cardiovascular: Reports: Orthopnea. Denies: Chest Pain, Chest Pressure, Chest Tightness, Edema, Palpitations Respiratory: Reports: Shortness of Breath, Shortness of breath at rest, Shortness of breath upon exertion. Denies: Cough, Sputum production Gastrointestinal: Denies: Abdominal Pain, Nausea, Vomiting Genitourinary: Reports: - - Does not make urine.. Denies: Dysuria Musculoskeletal: Reports: Back Pain, Joint Pain. Denies: Joint Tenderness Skin: Denies: Rash, Wounds Neurological: Denies: Numbness, Tingling, Focal weakness Psychiatric: Reports: Depression. Denies: Anxiety, Homicidal Ideations, Suicidal Ideations Hematologic/ Lymphatic: Reports: Anemia. Denies: Easy Bruising, Easy Bleeding VTE Information - Inpt Only VTE Present on Admission: No VTE Mechan Device Prophylaxis: SCD's VTE Pharm Prophylaxis ordered?: No Reason prophylaxis not ordered:: Treatment Not Indicated - Continue home eliquis regimen. Patient Problems: Active and Suspected Problems (Last Reviewed 12/27/19 @ 14:15 by Viridiana Adam) New onset of congestive heart failure (Acute) Elevated troponin I level (Acute) Subjective: Patient seated upright in the ED bed, fatigued, tearful during discussions notes being overwhelmed by the sensation of dyspnea ongoing. Objective: Physical Examination: General: awake, alert, oriented x 3 and cooperative, seated upright in the ED bed in no apparent distress, tearful during evaluations. Skin: normal color, turgor, no icterus, cyanosis. HEENT: AT/NC, EOMI, PERRLA, MMM, no carotid bruits or JVD noted. Lungs: Diminished breath sounds throughout, greater bases, rales present, no obvious rhonchi or wheezing. Heart: Regular rate and rhythm; no gallop, rub audible. Abdomen: soft, overweight, NTTP, ND, normal BS, no HSM. Extremities: no cyanosis or clubbing, BL LE non-pitting edema. Neurological: patient awake, alert, oriented as noted; cognitive function intact; pupils equally reactive to light and accomodation; cranial nerves II-XII grossly normal, moving all 4 extremities, no focal deficits, strength moderately globally decreased secondary to acute presentation. Psychiatric: affect appears fatigued, tearful, anxious and appears depressed. - Physical Exam Vitals/I&O's: Vital Signs Temp Pulse Resp BP Pulse Ox 97.3 F L 94 18 149/94 H 97 04/24/20 18:05 04/24/20 21:21 04/24/20 21:21 04/24/20 21:21 04/24/20 21:21 Oxygen Delivery Method Room Air Weight: 143 lb 4.807 oz Body Mass Index (BMI) 28.0 Laboratory Results 04/24/20 19:35: WBC 8.2, RBC 3.92 L, Hgb 11.0 L, Hct 36.7 L, MCV 93.6, MCH 28.1, MCHC 30.0 L, RDW Std Deviation 57.3 H, RDW Coeff of Radha 16.9 H, Plt Count 351, MPV 10.4, Immature Gran % (Auto) 0.100, Neut % (Auto) 68.0, Lymph % (Auto) 17.4 L, [place] % (Auto) 9.7, Eos % (Auto) 3.5, Baso % (Auto) 1.3 H, Absolute Neuts (auto) 5.6, Absolute Lymphs (auto) 1.43, Nucleated RBC % 0 04/24/20 19:35: Sodium 139, Potassium 4.8, Chloride 103, Carbon Dioxide 30.0, Anion Gap 6, BUN 30 H, Creatinine 6.16 H, Estim Creat Clear Calc 7.24, Est GFR (MDRD) Af Amer 9 L, Est GFR (MDRD) Non-Af 7 L, BUN/Creatinine Ratio 4.9 L, G lucose 100, Calcium 9.3, Troponin I 0.043 04/24/20 19:35: B-Natriuretic Peptide 3786.5 H Assessment/Plan All Active Problems (Last Reviewed 12/27/19 @ 14:15 by Viridiana Adam) Sepsis (Acute) LLQ abdominal pain (Acute) New onset of congestive heart failure (Acute) Elevated troponin I level (Acute) Hay fever (Acute) The patient is a 59 y/o M w/ PMHx: AOCD, Hx PCKD s/p BL nephrectomy with ESRD on HD at home MWFS, Chronic pain syndrome with history of recent PCP evaluation with referral to cardiology for ongoing issues with CHF who now presents to the [facility] ED on 04/24/20 with history of 3-4 weeks of worsening dyspnea, worse with exertion in addition to significant orthopnea. 1. Acute Decompensated Presumed Diastolic CHF: CXR obtained in the ED w/ volume overload. Will admit to PCU, maintain on cardiac telemetry, obtain cardiac enzyme series, obtain serial EKGs, continue IV lasix diuresis pending HD per Nephrology, monitor I/Os, maintain on intake restriction, continue medical therapy, obtain TSH and magnesium level. Most recent ECHO noted 07/19/19 with EF 60%, no evidence at that time for diastolic dysfunction, trivial TBI, will obtain repeat given greater than 6 months. Stress testing performed 02/19/20 performed secondary to upcoming renal transplant possibility noted to be normal. Noted most recent BNP on 04/22/2020 3637.8. Covid testing 03/24/2020 negative. May consider cardiology consultation. 2. AOCD: Admission hemoglobin 11, prior baseline 9-10 primarily, continue to trend. 3. ESRD on HD w/ PCKD s/p BL nephrectomy: HD MWFS, following w/ Dr. aLu, given acute presentation will consult their service and request in-house HD and per discussion with Dr. Lau would plan 04/25/2020 early a.m., continue IV lasix in interim as noted #1, continue sevelamer and renephro. 4. Gout: We will continue patient home allopurinol regimen. 5. Chronic pain syndrome: We will continue patient as needed opiate regimen. 6. DVT prophylaxis: SCDs, Eliquis. 7. CODE status: Patient LOKESH is her and living will is not currently in place. Discussed CODE status at length including difference between FULL code, DNR-CCA and DNR-CC status. Following discussions about the differences in these status, requested Full Code status. Advanced Care Planning Face to Face Time: 16 minutes. Inpatient E&M: 11375 Init Hosp L3 Procedures: 04663 Advncd Care Plan 30 Min
--- NOTE | 2020-04-24 23:00 | ECHOD_ITS ---
Reason For Study: ARRHYTHYMIA Procedure This was a 2D Doppler, Color Flow transthoracic echocardiogram. Exam performed portable in patient room. Left Ventricle Normal LV size. The estimated ejection fraction is 25 %. Stage 2 diastolic dysfunction. There is severe global hypokinesis of the left ventricle. Right Ventricle Normal RV size. Normal systolic function. Atria Normal left atrium. Normal right atrium. Mitral Valve Normal mitral valve. Trivial eccentric mitral valve insufficiency. Tricuspid Valve Normal tricuspid valve. Aortic Valve Normal aortic valve. Trisinus/trileaflet aortic valve. Pulmonic Valve Normal pulmonic valve. Great Vessels Normal aortic root. The pulmonary artery is normal size. Normal inferior vena cava. Pericardium/Pleural No pericardial effusion. MMode/2D Measurements & Calculations LVIDd: 5.3 cm IVSd: 0.96 cm Ao root diam: 3.2 cm LVIDs: 4.4 cm LVPWd: 1.1 cm RVDd: 3.1 cm FS: 16.6 % LAV(MOD-bp): 48.6 ml LVAd ap4: 37.7 cm2 SV(MOD-sp4): 35.9 ml LAV(MOD-bp) Indexed: 30.1 ml/m2 EDV(MOD-sp4): 148.2 ml LAV(MOD-sp2): 76.1 ml EDV(sp4-el): 155.1 ml LAV(MOD-sp4): 25.9 ml LVAs ap4: 31.5 cm2 ESV(MOD-sp4): 112.3 ml ESV(sp4-el): 117.2 ml EF(MOD-sp4): 24.2 % EF(sp4-el): 24.5 % SV(sp4-el): 37.9 ml LA A4 area: 11.6 cm2 LA dimension(2D): 3.7 cm RA A4 area: 11.0 cm2 Time Measurements MV dec time: 0.17 sec Doppler Measurements & Calculations MV E max chad: 96.1 cm/sec Lat Peak E' Chad: 4.8 cm/sec Med Peak E' Chad: 5.0 cm/sec MV A max chad: 71.3 cm/sec E/E' lat: 20.1 E/E' med: 19.1 MV E/A: 1.3 Ao V2 max: 99.2 cm/sec LV V1 max: 81.9 cm/sec PA V2 max: 55.0 cm/sec Ao max P.9 mmHg LV V1 max P.7 mmHg Interpretation Summary Normal LV size. The estimated ejection fraction is 25 %. Stage 2 diastolic dysfunction. Compared to previous study, the left ventricular systolic function has worsened.. Ordering Physician: Lillian Valero Referring Physician: CARSON CLAUDIO Performed By: Polly Dawkins RDCS
[2020-04-24] MEDS: Albuterol 2.5 MG/3 ML VIAL.NEB. INHALATION (23:28)
[2020-04-24] MEDS: Acetaminophen 325 MG Tablet 650 MG PO (23:38)
[2020-04-24 23:40] LABS: Magnesium 2.4 mg/dL (1.6-2.6)
[2020-04-24] MEDS: Morphine 2 MG/ML Syringe IV (23:54)
[2020-04-25] VITALS (13 sets, daily range): BP systolic 117–147; BP diastolic 81–97; PULSE 69–94; RESP 13–22; TEMP 36.2–37; O2SAT 95–99
[2020-04-25] MEDS: APIXABAN 5 MG TABLET PO ×3 (00:44→20:55)
[2020-04-25] MEDS: Morphine 2 MG/ML Syringe IV ×2 (04:17→07:52)
[2020-04-25 04:58] LABS: Absolute Neutrophil Count 5.3 X10^3/uL (2.0-7.7); Basophil# 0.09 X10^3/uL; Basophil% 1.1 % (0-1); Eosinophil# 0.26 X10^3/uL; Eosinophils% 3.2 % (0-5); Hematocrit 32.9 % (37-47); Hemoglobin 10.3 g/dL (12.0-15.0); Mean Corp Hgb Conc 31.3 g/dL (32-36); Mean Corpuscular Hgb 29.3 pg (27.0-32.0); Mean Corpuscular Volume 93.7 fL (81-99); Mean Platelet Vol. 10.2 fl (6.2-12.0); Monocyte# 0.68 X10^3/uL; Monocyte% 8.3 % (0-10); NRBC Flagged by Analyzer 0 % (0-5); Neutrophil # 5.33 X10^3/uL (2.7-7.7); Platelet Count 317 K/mm3 (150-450); RBC Distribution Width CV 16.8 % (11.6-14.6); RBC Distribution Width SD 57.1 fl (35.1-43.9); Red Blood Count 3.51 M/mm3 (4.2-5.4); White Blood Count 8.2 K/mm3 (4.4-11.0)
[2020-04-25 05:28] LABS: ALB/GLOB Ratio 0.8 RATIO (0.9-2.4); AST(SGOT) 12 U/L (15-37); Alanine Aminotransfer ALT/SGPT 12 U/L (13-56); Albumin, Serum 2.7 g/dL (3.2-5.0); Alkaline Phosphatase 105 U/L (45-117); Anion Gap 7 (5-15); BUN 34 mg/dL (7-18); Calcium,Total 9.1 mg/dL (8.5-10.1); Chloride 103 mmol/L (98-107); Cholesterol 172 mg/dL (200); Creatinine, Serum 6.84 mg/dL (0.55-1.02); EST Glomerular Filtration Rate 7 mL/min (>60); Est Glom Filt Rate - Afr Amer 8 mL/min (>60); Estimated Creatinine Clearance 6.52 ml/min; Globulin 3.6 g/dL (2.2-4.2); Glucose 91 mg/dL (74-106); High Density Lipoprotein 61 mg/dL; Potassium 4.3 mmol/L (3.5-5.1); Protein, Total 6.3 g/dL (6.4-8.2); Sodium Level 138 mmol/L (136-145); Triglycerides 108 mg/dL; Very Low Density Lipoprotein 22 mg/dL (5-40)
--- NOTE | 2020-04-25 05:55 | EKG12_ITS ---
Test Reason : AM EKG Blood Pressure : / mmHG Vent. Rate : 085 BPM Atrial Rate : 085 BPM P-R Int : 144 ms QRS Dur : 070 ms QT Int : 418 ms P-R-T Axes : 056 010 140 degrees QTc Int : 497 ms Normal sinus rhythm ST & T wave abnormality, consider anterolateral ischemia Prolonged QT Abnormal ECG When compared with ECG of 24-APR-2020 18:55, MANUAL COMPARISON REQUIRED, DATA IS UNCONFIRMED Confirmed by LAMBERTO YING, DAHLIA ([id number]), editor house organ KIMMY LAMB ([id number]) on 04/28/2020 10:37:34 AM Referred By: DR MONDRAGON Confirmed By:DAHLIA ORANTES MD
[2020-04-25] MEDS: 0.9% Saline Lock 10 ML Syringe IV ×2 (07:52→12:16)
--- NOTE | 2020-04-25 08:41 | CON.PCM_ITS ---
Reason for Consult Date of Consultation: 04/25/20 Reason for Consultation: Shortness of breath History of Present Illness: The patient is a 59 year old F with polycystic kidney disease status post bilateral nephrectomy on dialysis who has been on the kidney transplant list. She apparently has been having some problems with shortness of breath and was scheduled to see me in the office. She presented to the emergency room yesterday with more shortness of breath. Chest x-ray was done which demonstrated fluid accumulation and patient was admitted to the telemetry care unit. Patient blood work done which demonstrated mildly elevated troponin and cardiology was consulted for further evaluation and management. She denies any chest pain or paroxysmal nocturnal dyspnea or pedal edema. She underwent stress testing earlier this year where she exercised to 7 metabolic equivalents without any evidence of ischemia. This was part of her pretransplant work-up. [] Past Medical History Allergies/Adverse Reactions: Allergies cephalexin Allergy (Mild, Verified 03/24/20 19:54) rash Penicillins Allergy (Verified 03/24/20 19:54) Rash codeine Adverse Reaction (Verified 03/24/20 19:54) Nausea Home Medications: Ambulatory Orders Medication Instructions Recorded Allopurinol [Zyloprim] 100 mg PO MOWEFR 09/01/16 Oxycodone [Oxyir] 5 - 10 mg PO Q4H PRN PRN 09/01/16 albuterol sulfate 90 mcg/actuation 2 puff INHALATION Q6H PRN 12/27/19 aerosol inhaler apixaban 5 mg tablet 5 mg PO BID 12/27/19 docusate sodium 100 mg capsule 100 mg PO BID 12/27/19 Sevelamer Carbonate 800 mg PO TID 01/07/20 Folic Acid/Vitamin B Comp W-C 1 cap PO DAILY 03/25/20 [Nephrocaps, Renaphro] Ondansetron HCl [Zofran] 4 mg PO Q6H PRN PRN #30 tab 03/27/20 Past Medical History (Chronic Problems): Chronic Problems (Last Reviewed 12/27/19 @ 14:15 by Viridiana Adam) Hemodialysis patient (Chronic) Chronic pain (Chronic) Gout (Chronic) Polycystic kidney disease (Chronic) End stage renal failure on dialysis (Chronic) Surgical History: cholecystectomy, - - Bilateral nephrectomy, x2, cholecystectomy, port placement, prior AVF and graft. 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 Paternal Family History: Family History (Last Updated 12/27/19 @ 14:17 by Viridiana Adam) Father Aneurysm History Items: - - Father with history of polycystic kidney disease, aneurysm. Lives: Spouse/ Significant Other Smoking Status: Never smoker Tobacco Use: Non-smoker Alcohol: None Drugs: None Review of Systems - Review of Systems General: Reports: Fatigue. Denies: Fever, Night Sweats HEENT: Denies: Vision Change Cardiovascular: Reports: Shortness of Breath. Denies: Chest Discomfort, Orthopnea, PND, Peripheral Edema, Palpitations, Lightheadedness, Dizziness, Near Syncope, Syncope Respiratory: Denies: Cough, Sputum Production, Hemoptysis Gastrointestinal: Denies: Hematemesis, Hematochezia, Melena Genitourinary: Denies: Dysuria, Hematuria Skin: Denies: Rash Neurological: Denies: Dizziness Psychiatric: Denies: Anxiety Hematologic/ Lymphatic: Reports: Anemia Subjectve: Pleasant lady in no distress at this time Objective: Vital Signs Temp Pulse Resp BP Pulse Ox 98.6 F 82 20 H 147/97 H 98 04/25/20 07:50 04/25/20 07:50 04/25/20 07:50 04/25/20 07:50 04/25/20 07:50 Oxygen Flow Rate (L/min) 2 Oxygen Delivery Method Nasal Cannula Weight: 142 lb 3.17 oz Body Mass Index (BMI) 27.8 Intake and Output for Last 24 Hours 04/23/20 04/24/20 04/25/20 23:59 23:59 23:59 Intake Total 290 / 290 Output Total 0 / 0 Balance 290 / 290 General: Awake, Alert, Oriented x 3 HEENT: PERRL, EOMI, Sclera Non Icteric Neck: Supple, Good ROM, No Lymph Node Enlargement Lungs: Diminished [place] Bases Cardiovascular: Regular Rhythm, Normal S1, Normal S2, No Murmurs, No Rubs, No Gallops Vascular: No Carotid Bruits, Normal Femoral Pulses, Normal Radial Pulses, Normal Dorsalis Pedal Pulse, Normal Posterior Tibial Pulses Abdomen: Bowel Sounds Present, Soft, Non Tender, No HSM, No Organomegaly Extremities: No Cyanosis, No Clubbing, No edema Musculoskeletal: No Erythema Skin: No Rashes Lymphatic: No Lymph Node Enlargement Neurological: No Focal Motor or Sensory Deficit 04/24/20 19:35: WBC 8.2, RBC 3.92 L, Hgb 11.0 L, Hct 36.7 L, MCV 93.6, MCH 28.1, MCHC 30.0 L, Plt Count 351, MPV 10.4, Immature Gran % (Auto) 0.100, Neut % (Auto) 68.0, Lymph % (Auto) 17.4 L, [place] % (Auto) 9.7, Eos % (Auto) 3.5, Baso % (Auto) 1.3 H, Absolute Neuts (auto) 5.6, Nucleated RBC % 0 04/24/20 19:35: Sodium 139, Potassium 4.8, Chloride 103, Carbon Dioxide 30.0, Anion Gap 6, BUN 30 H, Creatinine 6.16 H, Est GFR (MDRD) Af Amer 9 L, Est GFR (MDRD) Non-Af 7 L, BUN/Creatinine Ratio 4.9 L, Glucose 100, Calcium 9.3, Troponin I 0.043 04/24/20 19:35: B-Natriuretic Peptide 3786.5 H 04/24/20 19:35: Magnesium 2.4 04/25/20 04:50: WBC 8.2, RBC 3.51 L, Hgb 10.3 L, Hct 32.9 L, MCV 93.7, MCH 29.3, MCHC 31.3 L, Plt Count 317, MPV 10.2, Immature Gran % (Auto) 0.400, Neut % (Auto) 65.0, Lymph % (Auto) 22.0, [place] % (Auto) 8.3, Eos % (Auto) 3.2, Baso % (Auto) 1.1 H, Absolute Neuts (auto) 5.3, Nucleated RBC % 0 04/25/20 04:50: Sodium 138, Potassium 4.3, Chloride 103, Carbon Dioxide 28.0, Anion Gap 7, BUN 34 H, Creatinine 6.84 H, Est GFR (MDRD) Af Amer 8 L, Est GFR (MDRD) Non-Af 7 L, BUN/Creatinine Ratio 5.0 L, Glucose 91, Calcium 9.1, Total Bilirubin 0.40, Triglycerides 108, Cholesterol 172, LDL Cholesterol 89, VLDL Cholesterol 22, HDL Cholesterol 61 04/25/20 04:50: Troponin I 0.058 H 04/25/20 07:20: Troponin I 0.048 H Rhythm: EKG: Normal sinus rhythm with nonspecific ST changes ECHO: Pending Stress Test: Cardiac Cath: PCI: CT Surgery: Holter monitor: EPS: PPM: CXR: Mild fluid redistribution Chest CT Scan: Assessment/Plan 1. Heart failure with preserved ejection fraction * Patient presents with shortness of breath and has an elevated natruretic peptide and a chest x-ray consistent with heart failure. The above is likely secondary to preserved ejection fraction and diastolic dysfunction. * Would recommend aggressive diuresis as per nephrology service * An echocardiogram should be performed to assess left ventricular function * The stress test was normal and thus excluded significant obstructive coronary disease. * 2. Hypertension * Blood pressure appears to be under suboptimal control at this time and I would suggest that we add a low-dose of a beta-bismark as well as amlodipine. * 3. Abnormal cardiac enzymes * The above is likely secondary to demand ischemia. My recommendation is for us to continue the current medical therapy * At this juncture in view of the recent normal stress test I do not think that we will pursue any invasive therapy. * Would recommend the addition of statins to her regimen * 4. End-stage renal disease. * Patient is being followed by life skills specialist. She is on anticoagulation apparently for catheter patency. * Thank you for allowing me to participate in the care of your patient. Please don't hesitate to call if any issues arise.
--- NOTE | 2020-04-25 09:46 | PCM.CONS.R ---
Consultation - Renal PCP/ Referring MD: Requesting physician: [] Primary care physician: Dr. Raphael Russell MD - History of Present Illness History of Present Illness: The patient is a 59 year old F PMH of ESRD from PCKD s/p B/L nephrectomies. Patient presented with progressive worsening of SOB for the last 3-4 weeks. Patient does HHD 4 days weekly with average UF 1 L . Patient had UF 2 L Tuesday but continues to have SOB and progressed to orthopnea. BNP was found to be elevated > 3000 and chest xray showed pulmonary congestion. Renal team was consulted for HD. HD session was arranged for this morning . ROS: 12 systems review is negative except what mentioned in HPI [] - Allergies Allergies: Allergies cephalexin Allergy (Mild, Verified 03/24/20 19:54) rash Penicillins Allergy (Verified 03/24/20 19:54) Rash codeine Adverse Reaction (Verified 03/24/20 19:54) Nausea - Current Medications Current Medications: Current Medications Acetaminophen (Acetaminophen 325 Mg Tablet) 650 mg PO Q6H PRN PRN PRN Reason: Pain Score 1-10/Temp > 100.7 F Last Admin: 04/24/20 23:38 Dose: 650 mg Documented by: Allopurinol (Allopurinol 100 Mg Tablet) 100 mg PO MOWEFR [facility] Amlodipine Besylate (Amlodipine 2.5 Mg Tablet) 2.5 mg PO DAILY [facility] Apixaban (Apixaban 5 Mg Tablet) 5 mg PO BID [facility] Last Admin: 04/25/20 00:44 Dose: 5 mg Documented by: Atorvastatin Calcium (Atorvastatin Calcium 20 Mg Tablet) 20 mg PO QHS [facility] Docusate Sodium (Docusate Sodium 100 Mg Capsule) 100 mg PO BID [facility] Last Admin: 04/24/20 23:58 Dose: Not Given Documented by: Sodium Chloride () 250 mls @ 15 mls/hr IV .[id number] PRN PRN Reason: Saline Flush Sodium Chloride () 250 mls @ 15 mls/hr IV .[id number] PRN PRN Reason: Additional IVPB Infusion Metoprolol Tartrate (Metoprolol Tartrate 25 Mg Tablet) 25 mg PO BID [facility] Multivit/Ca Carb/B Cmplx/FA/Prenat (Folic Acid/Vitamin B Comp W-C 1 Capsule) 1 capsule PO DAILY [facility] Ondansetron HCl (Ondansetron 4 Mg/2 Ml Vial) 4 mg IV Q8H PRN PRN PRN Reason: NAUSEA/VOMITING Oxycodone HCl (Oxycodone 5 Mg Tablet) 5 mg PO Q4H PRN PRN PRN Reason: Pain Score 4-5 Sevelamer Carbonate (Sevelamer Carbonate 800 Mg Tablet) 800 mg PO TID MARINO Last Admin: 04/24/20 23:58 Dose: Not Given Documented by: Sodium Chloride (0.9% Saline Lock 10 Ml Syringe) 10 - 40 ml IV UD PRN PRN Reason: SALINE FLUSH Last Admin: 04/25/20 07:52 Dose: 10 ml Documented by: - Past Medical History Past Medical History (Chronic Problems): Chronic Problems (Last Reviewed 12/27/19 @ 14:15 by Viridiana Adam) Hemodialysis patient (Chronic) Chronic pain (Chronic) Gout (Chronic) Polycystic kidney disease (Chronic) End stage renal failure on dialysis (Chronic) - Past Surgical History Surgical History: cholecystectomy, - - Bilateral nephrectomy, x2, cholecystectomy, port placement, prior AVF and graft. - Social History Smoking Status: Never smoker Alcohol: None Drugs: None - Family History Maternal Family History: Family History (Last Updated 12/27/19 @ 14:17 by Viridiana Adam) Father Aneurysm History Items: - - Patient denies any market maternal family history including heart disease, diabetes, cancer, renal disease, mother is living at 88 years old. Paternal Family History: Family History (Last Updated 12/27/19 @ 14:17 by Viridiana Adam) Father Aneurysm History Items: - - Father with history of polycystic kidney disease, aneurysm. Patient Problems: Active and Suspected Problems (Last Reviewed 12/27/19 @ 14:15 by Viridiana Adam) New onset of congestive heart failure (Acute) Elevated troponin I level (Acute) - Physical Exam Vitals/I&O's: Vital Signs Temp Pulse Resp BP Pulse Ox 98.6 F 82 20 H 147/97 H 98 04/25/20 07:50 04/25/20 07:50 04/25/20 07:50 04/25/20 07:50 04/25/20 07:50 Oxygen Flow Rate (L/min) 2 Oxygen Delivery Method Nasal Cannula Weight: 64.5 kg Body Mass Index (BMI) 27.8 Intake and Output for Last 24 Hours 04/23/20 04/24/20 04/25/20 23:59 23:59 23:59 Intake Total 290 / 290 Output Total 0 / 0 Balance 290 / 290 General: Alert, Oriented x3 HEENT: Atraumatic Oral: Moist Mucosa Neck: Supple, No JVD Lungs: Rales, Tachypneic Cardiovascular: Regular rate, Regular Rhythm, Normal S1, Normal S2 Abdomen: Bowel Sounds Present, Soft, Non Tender, Non-Distended Extremities: No clubbing, No cyanosis, Edema - lymph edema of LE Lymphatic: No Cervical, Supraclavicular, or Inguinal Adenopathy Neurological: Cranial nerves II-XII grossly intact, Neuro grossly intact Psych/Mental Status: Appropriate Laboratory Results 04/24/20 19:35: WBC 8.2, RBC 3.92 L, Hgb 11.0 L, Hct 36.7 L, MCV 93.6, MCH 28.1, MCHC 30.0 L, RDW Std Deviation 57.3 H, RDW Coeff of Radha 16.9 H, Plt Count 351, MPV 10.4, Immature Gran % (Auto) 0.100, Neut % (Auto) 68.0, Lymph % (Auto) 17.4 L, [place] % (Auto) 9.7, Eos % (Auto) 3.5, Baso % (Auto) 1.3 H, Absolute Neuts (auto) 5.6, Absolute Lymphs (auto) 1.43, Nucleated RBC % 0 04/24/20 19:35: Sodium 139, Potassium 4.8, Chloride 103, Carbon Dioxide 30.0, Anion Gap 6, BUN 30 H, Creatinine 6.16 H, Estim Creat Clear Calc 7.24, Est GFR (MDRD) Af Amer 9 L, Est GFR (MDRD) Non-Af 7 L, BUN/Creatinine Ratio 4.9 L, Glucose 100, Calcium 9.3, Troponin I 0.043 04/24/20 19:35: B-Natriuretic Peptide 3786.5 H 04/24/20 19:35: Magnesium 2.4, TSH 3.00 04/25/20 04:50: WBC 8.2, RBC 3.51 L, Hgb 10.3 L, Hct 32.9 L, MCV 93.7, MCH 29.3, MCHC 31.3 L, RDW Std Deviation 57.1 H, RDW Coeff of Radha 16.8 H, Plt Count 317, MPV 10.2, Immature Gran % (Auto) 0.400, Neut % (Auto) 65.0, Lymph % (Auto) 22.0, [place] % (Auto) 8.3, Eos % (Auto) 3.2, Baso % (Auto) 1.1 H, Absolute Neuts (auto) 5.3, Absolute Lymphs (auto) 1.80, Nucleated RBC % 0 04/25/20 04:50: Sodium 138, Potassium 4.3, Chloride 103, Carbon Dioxide 28.0, Anion Gap 7, BUN 34 H, Creatinine 6.84 H, Estim Creat Clear Calc 6.52, Est GFR (MDRD) Af Amer 8 L, Est GFR (MDRD) Non-Af 7 L, BUN/Creatinine Ratio 5.0 L, Glucose 91, Calcium 9.1, Total Bilirubin 0.40, AST 12 L, ALT 12 L, Alkaline Phosphatase 105, Total Protein 6.3 L, Albumin 2.7 L, Globulin 3.6, Albumin/Globulin Ratio 0.8 L, Triglycerides 108, Cholesterol 172, LDL Cholesterol 89, VLDL Cholesterol 22, HDL Cholesterol 61 04/25/20 04:50: Troponin I 0.058 H 04/25/20 07:20: Troponin I 0.048 H Current Medications Acetaminophen (Acetaminophen 325 Mg Tablet) 650 mg PO Q6H PRN PRN PRN Reason: Pain Score 1-10/Temp > 100.7 F Last Admin: 04/24/20 23:38 Dose: 650 mg Documented by: Allopurinol (Allopurinol 100 Mg Tablet) 100 mg PO MOWEFR [facility] Amlodipine Besylate (Amlodipine 2.5 Mg Tablet) 2.5 mg PO DAILY [facility] Apixaban (Apixaban 5 Mg Tablet) 5 mg PO BID [facility] Last Admin: 04/25/20 00:44 Dose: 5 mg Documented by: Atorvastatin Calcium (Atorvastatin Calcium 20 Mg Tablet) 20 mg PO QHS [facility] Docusate Sodium (Docusate Sodium 100 Mg Capsule) 100 mg PO BID [facility] Last Admin: 04/24/20 23:58 Dose: Not Given Documented by: Sodium Chloride () 250 mls @ 15 mls/hr IV .[id number] PRN PRN Reason: Saline Flush Sodium Chloride () 250 mls @ 15 mls/hr IV .[id number] PRN PRN Reason: Additional IVPB Infusion Metoprolol Tartrate (Metoprolol Tartrate 25 Mg Tablet) 25 mg PO BID [facility] Multivit/Ca Carb/B Cmplx/FA/Prenat (Folic Acid/Vitamin B Comp W-C 1 Capsule) 1 capsule PO DAILY [facility] Ondansetron HCl (Ondansetron 4 Mg/2 Ml Vial) 4 mg IV Q8H PRN PRN PRN Reason: NAUSEA/VOMITING Oxycodone HCl (Oxycodone 5 Mg Tablet) 5 mg PO Q4H PRN PRN PRN Reason: Pain Score 4-5 Sevelamer Carbonate (Sevelamer Carbonate 800 Mg Tablet) 800 mg PO TID MARINO Last Admin: 04/24/20 23:58 Dose: Not Given Documented by: Sodium Chloride (0.9% Saline Lock 10 Ml Syringe) 10 - 40 ml IV UD PRN PRN Reason: SALINE FLUSH Last Admin: 04/25/20 07:52 Dose: 10 ml Documented by: Assessment/Plan All Active Problems (Last Reviewed 12/27/19 @ 14:15 by Viridiana Adam) Sepsis (Acute) LLQ abdominal pain (Acute) New onset of congestive heart failure (Acute) Elevated troponin I level (Acute) Hay fever (Acute) 1- ESRD on HHD 4 days weekly. HD session today with 350 BQ , 700 DQ and 3 L HD access L IJ TC 2- CHF exacerbation Will aim for 3 L today CHF core measures and cardiac work up as per cardiology service 3- HTN: BP above the target. UF of 3L today follow BP and adjust BP meds after HD Renal team will continue to follow
[2020-04-25] MEDS: Allopurinol 100 MG Tablet PO (10:35)
[2020-04-25] MEDS: Ondansetron 4 MG/2 ML Vial IV (12:16)
[2020-04-25] MEDS: Folic Acid/Vitamin B Comp W-C 1 Capsule 1 CAP PO (13:39)
[2020-04-25] MEDS: SEVELAMER CARBONATE 800 MG TABLET PO (13:39)
[2020-04-25] MEDS: amLODIPine 2.5 MG Tablet PO (13:43)
[2020-04-25] MEDS: Metoprolol Tartrate 25 MG Tablet PO ×2 (13:43→20:55)
[2020-04-25] MEDS: oxyCODONE 5 MG Tablet PO (13:43)
[2020-04-25] MEDS: Acetaminophen 325 MG Tablet 650 MG PO (13:43)
--- NOTE | 2020-04-25 13:43 | DIALYSIS ---
Pt tolerated 3hr HD tx well. Net UF -3000ml. See flow record for tx data.
--- NOTE | 2020-04-25 14:43 | PCM.PROGNOTE ---
Patient Problems: Active and Suspected Problems (Last Reviewed 12/27/19 @ 14:15 by Viridiana Adam) New onset of congestive heart failure (Acute) Elevated troponin I level (Acute) Subjective: Patient seen and examined. States shortness of breath is improved however she still feels like she has too much fluid. Denies chest pain. - Physical Exam Vitals/I&O's: Vital Signs Temp Pulse Resp BP Pulse Ox 98 F 88 18 126/85 H 98 04/25/20 13:41 04/25/20 13:43 04/25/20 13:41 04/25/20 13:41 04/25/20 13:38 Oxygen Flow Rate (L/min) 2 Oxygen Delivery Method Nasal Cannula Weight: 142 lb 3.17 oz Body Mass Index (BMI) 27.8 Intake and Output for Last 24 Hours 04/23/20 04/24/20 04/25/20 23:59 23:59 23:59 Intake Total 490 / 490 Output Total 3000 / 3000 Balance -2510 / -2510 General: Alert, Oriented x3, Cooperative HEENT: Atraumatic, PERRLA, EOMI, Normocephalic Neck: Supple, No JVD, Negative Carotid Bruits Lungs: Clear to auscultation, Diminished Cardiovascular: Regular rate, No murmurs Abdomen: Bowel Sounds Present, Soft, Non Tender, Non-Distended Extremities: No clubbing, No cyanosis, Capillary Refill Less than 3 Seconds, Edema - Bilateral lower extremities, nonpitting Skin: No rashes, No breakdown Musculoskeletal: No Tenderness to Palpation of Joints or Extremities Neurological: Cranial nerves II-XII grossly intact, Neuro grossly intact Psych/Mental Status: Normal Affect, Appropriate Laboratory Results 04/24/20 19:35: WBC 8.2, RBC 3.92 L, Hgb 11.0 L, Hct 36.7 L, MCV 93.6, MCH 28.1, MCHC 30.0 L, RDW Std Deviation 57.3 H, RDW Coeff of Radha 16.9 H, Plt Count 351, MPV 10.4, Immature Gran % (Auto) 0.100, Neut % (Auto) 68.0, Lymph % (Auto) 17.4 L, [place] % (Auto) 9.7, Eos % (Auto) 3.5, Baso % (Auto) 1.3 H, Absolute Neuts (auto) 5.6, Absolute Lymphs (auto) 1.43, Nucleated RBC % 0 04/24/20 19:35: Sodium 139, Potassium 4.8, Chloride 103, Carbon Dioxide 30.0, Anion Gap 6, BUN 30 H, Creatinine 6.16 H, Estim Creat Clear Calc 7.24, Est GFR (MDRD) Af Amer 9 L, Est GFR (MDRD) Non-Af 7 L, BUN/Creatinine Ratio 4.9 L, Glucose 100, Calcium 9.3, Troponin I 0.043 04/24/20 19:35: B-Natriuretic Peptide 3786.5 H 04/24/20 19:35: Magnesium 2.4, TSH 3.00 04/25/20 04:50: WBC 8.2, RBC 3.51 L, Hgb 10.3 L, Hct 32.9 L, MCV 93.7, MCH 29.3, MCHC 31.3 L, RDW Std Deviation 57.1 H, RDW Coeff of Radha 16.8 H, Plt Count 317, MPV 10.2, Immature Gran % (Auto) 0.400, Neut % (Auto) 65.0, Lymph % (Auto) 22.0, [place] % (Auto) 8.3, Eos % (Auto) 3.2, Baso % (Auto) 1.1 H, Absolute Neuts (auto) 5.3, Absolute Lymphs (auto) 1.80, Nucleated RBC % 0 04/25/20 04:50: Sodium 138, Potassium 4.3, Chloride 103, Carbon Dioxide 28.0, Anion Gap 7, BUN 34 H, Creatinine 6.84 H, Estim Creat Clear Calc 6.52, Est GFR (MDRD) Af Amer 8 L, Est GFR (MDRD) Non-Af 7 L, BUN/Creatinine Ratio 5.0 L, Glucose 91, Calcium 9.1, Total Bilirubin 0.40, AST 12 L, ALT 12 L, Alkaline Phosphatase 105, Total Protein 6.3 L, Albumin 2.7 L, Globulin 3.6, Albumin/Globulin Ratio 0.8 L, Triglycerides 108, Cholesterol 172, LDL Cholesterol 89, VLDL Cholesterol 22, HDL Cholesterol 61 04/25/20 04:50: Troponin I 0.058 H 04/25/20 07:20: Troponin I 0.048 H 04/25/20 10:26: Troponin I 0.040 Current Medications Acetaminophen (Acetaminophen 325 Mg Tablet) 650 mg PO Q6H PRN PRN PRN Reason: Pain Score 1-10/Temp > 100.7 F Last Admin: 04/25/20 13:43 Dose: 650 mg Documented by: Allopurinol (Allopurinol 100 Mg Tablet) 100 mg PO MOWEFR [facility] Last Admin: 04/25/20 10:35 Dose: 100 mg Documented by: Amlodipine Besylate (Amlodipine 2.5 Mg Tablet) 2.5 mg PO DAILY [facility] Last Admin: 04/25/20 13:43 Dose: 2.5 mg Documented by: Apixaban (Apixaban 5 Mg Tablet) 5 mg PO BID [facility] Last Admin: 04/25/20 10:35 Dose: 5 mg Documented by: Atorvastatin Calcium (Atorvastatin Calcium 20 Mg Tablet) 20 mg PO QHS [facility] Docusate Sodium (Docusate Sodium 100 Mg Capsule) 100 mg PO BID [facility] Last Admin: 04/25/20 10:36 Dose: Not Given Documented by: Sodium Chloride () 250 mls @ 15 mls/hr IV .[id number] PRN PRN Reason: Saline Flush Sodium Chloride () 250 mls @ 15 mls/hr IV .[id number] PRN PRN Reason: Additional IVPB Infusion Metoprolol Tartrate (Metoprolol Tartrate 25 Mg Tablet) 25 mg PO BID [facility] Last Admin: 04/25/20 13:43 Dose: 25 mg Documented by: Multivit/Ca Carb/B Cmplx/FA/Prenat (Folic Acid/Vitamin B Comp W-C 1 Capsule) 1 capsule PO DAILY [facility] Last Admin: 04/25/20 13:39 Dose: 1 capsule Documented by: Ondansetron HCl (Ondansetron 4 Mg/2 Ml Vial) 4 mg IV Q8H PRN PRN PRN Reason: NAUSEA/VOMITING Last Admin: 04/25/20 12:16 Dose: 4 mg Documented by: Oxycodone HCl (Oxycodone 5 Mg Tablet) 5 mg PO Q4H PRN PRN PRN Reason: Pain Score 4-5 Last Admin: 04/25/20 13:43 Dose: 5 mg Documented by: Sevelamer Carbonate (Sevelamer Carbonate 800 Mg Tablet) 800 mg PO TID [facility] Last Admin: 04/25/20 13:39 Dose: 800 mg Documented by: Sodium Chloride (0.9% Saline Lock 10 Ml Syringe) 10 - 40 ml IV UD PRN PRN Reason: SALINE FLUSH Last Admin: 04/25/20 12:16 Dose: 10 ml Documented by: Medical Necessity - Tobacco Use Smoking Status: Never smoker Tobacco Use: Non-smoker Assessment/Plan All Active Problems (Last Reviewed 12/27/19 @ 14:15 by Viridiana Adam) Sepsis (Acute) LLQ abdominal pain (Acute) New onset of congestive heart failure (Acute) Elevated troponin I level (Acute) Hay fever (Acute) 1. Acute combined systolic and diastolic CHF- BNP 3700. Chest x-ray shows mild interstitial edema. Oxygen stable on room air. Cardiology consulted. Echocardiogram demonstrates an EF of 25%, stage II diastolic dysfunction. Previous echocardiogram July 2019 demonstrated EF of 60%. Patient had recent stress test February 2020 which showed no ischemia. LVEF 72%. Continue diuresis with hemodialysis. Plan for heart cath on Tuesday for further evaluation of reduced EF. 2. ESRD on hemodialysis secondary to polycystic kidney disease status post bilateral nephrectomy (2015)- Follows with Dr. Lau. Nephrology consulted. Underwent hemodialysis today. Patient typically complete home dialysis. On anticoagulation with Eliquis. 3. Hypertension-stable, continue amlodipine, beta-bismark regimen. 4. Anemia of chronic disease- stable. 5. Gout-on allopurinol. DVT prophylaxis-Eliquis This patient was seen by SONIDO Herman under the supervision of Dr. Truong.
--- NOTE | 2020-04-25 15:53 | CASEMGMT ---
Addendum entered by Stefania Mancia 04/25/20 15:58: Per ECHO, pt has an EF of 25% at this time. Nephrology and cardiology are consulted. Barrington CRAIG CM Original Note: Readmission chart review: Pt initially admitted 06/25-03/27/2020 for Febrile illness, sepsis. See CM note by this KIARA QUIROS on 03/25/2020. Pt is on chronic HD for hx of bilat nephrectomies and goes MWF. Pt presented to [facility] ED on 04/24/2020 per PCP for 'fluid around heart' and SOB. 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 Pt is currently on 2liters nc at this time. Pt did have dialysis today. CM to follow for any further discharge planning/needs. Green sheet left on chart for possible home oxygen set up, if needed. Barrington CRAIG CM
[2020-04-25] MEDS: Docusate Sodium 100 MG Capsule PO (20:55)
[2020-04-25] MEDS: Atorvastatin Calcium 20 MG Tablet PO (20:55)
--- NOTE | 2020-04-25 20:57 | NURSING ---
HS meds given at this time per pt request.
[2020-04-26] VITALS (9 sets, daily range): BP systolic 111–137; BP diastolic 72–101; PULSE 72–79; RESP 18–19; TEMP 36.4–36.7; O2SAT 93–99
[2020-04-26] MEDS: Lisinopril 5 MG Tablet PO (05:59)
[2020-04-26] MEDS: Calcium Carbonate 500 MG Tablet 1000 MG PO (07:00)
--- NOTE | 2020-04-26 07:29 | EKG12_ITS ---
Test Reason : Blood Pressure : / mmHG Vent. Rate : 075 BPM Atrial Rate : 075 BPM P-R Int : 144 ms QRS Dur : 072 ms QT Int : 444 ms P-R-T Axes : 058 -05 158 degrees QTc Int : 495 ms Normal sinus rhythm ST & T wave abnormality, consider lateral ischemia Prolonged QT Abnormal ECG When compared with ECG of 25-APR-2020 05:37, MANUAL COMPARISON REQUIRED, DATA IS UNCONFIRMED Confirmed by LAMBERTO YING, DAHLIA ([id number]), features editor KIMMY LAMB ([id number]) on 04/29/2020 9:36:05 AM Referred By: SUZIE Confirmed By:DAHLIA ORANTES MD
[2020-04-26 07:31] LABS: Hematocrit 37.6 % (37-47); Hemoglobin 11.4 g/dL (12.0-15.0); Mean Corp Hgb Conc 30.3 g/dL (32-36); Mean Corpuscular Hgb 28.9 pg (27.0-32.0); Mean Corpuscular Volume 95.2 fL (81-99); Mean Platelet Vol. 10.6 fl (6.2-12.0); Platelet Count 311 K/mm3 (150-450); RBC Distribution Width CV 16.4 % (11.6-14.6); RBC Distribution Width SD 57.8 fl (35.1-43.9); Red Blood Count 3.95 M/mm3 (4.2-5.4); White Blood Count 7.8 K/mm3 (4.4-11.0)
[2020-04-26 07:53] LABS: Anion Gap 5 (5-15); BUN 27 mg/dL (7-18); BUN/Creat Ratio 4.7 RATIO (10-20); Calcium,Total 9.5 mg/dL (8.5-10.1); Chloride 106 mmol/L (98-107); EST Glomerular Filtration Rate 8 mL/min (>60); Est Glom Filt Rate - Afr Amer 10 mL/min (>60); Estimated Creatinine Clearance 7.82 ml/min; Glucose 93 mg/dL (74-106); Potassium 4.8 mmol/L (3.5-5.1); Sodium Level 139 mmol/L (136-145)
[2020-04-26] MEDS: oxyCODONE 5 MG Tablet PO (07:57)
--- NOTE | 2020-04-26 10:18 | PCM.PN.REN ---
Patient Problems: Active and Suspected Problems (Last Reviewed 12/27/19 @ 14:15 by Viridiana Adam) New onset of congestive heart failure (Acute) Elevated troponin I level (Acute) Subjective: No new complaints - Physical Exam Vitals/I&O's: Vital Signs Temp Pulse Resp BP Pulse Ox 97.5 F L 79 18 137/101 H 99 04/26/20 09:00 04/26/20 09:00 04/26/20 09:00 04/26/20 09:00 04/26/20 09:00 Oxygen Flow Rate (L/min) 2 Oxygen Delivery Method Room Air Weight: 62.2 kg Body Mass Index (BMI) 27.8 Intake and Output for Last 24 Hours 04/24/20 04/25/20 04/26/20 23:59 23:59 23:59 Intake Total 1010 / 1010 0 / 0 Output Total 3000 / 3000 0 / 0 Balance -1989 / -1989 0 / 0 General: Alert, Oriented x3, Cooperative HEENT: Atraumatic, PERRLA, EOMI, Normocephalic Neck: Supple, No JVD, Negative Carotid Bruits Lungs: Clear to auscultation, Normal air movement Cardiovascular: Regular rate, No murmurs Abdomen: Bowel Sounds Present, Soft, Non Tender Extremities: No edema, Capillary Refill Less than 3 Seconds Skin: No rashes, No breakdown Musculoskeletal: No Tenderness to Palpation of Joints or Extremities Neurological: Cranial nerves II-XII grossly intact Psych/Mental Status: Normal Affect, Appropriate Laboratory Results 04/25/20 10:26: Troponin I 0.040 04/26/20 07:20: WBC 7.8, RBC 3.95 L, Hgb 11.4 L, Hct 37.6, MCV 95.2, MCH 28.9, MCHC 30.3 L, RDW Std Deviation 57.8 H, RDW Coeff of Radha 16.4 H, Plt Count 311, MPV 10.6 04/26/20 07:20: Sodium 139, Potassium 4.8, Chloride 106, Carbon Dioxide 28.0, Anion Gap 5, BUN 27 H, Creatinine 5.70 H, Estim Creat Clear Calc 7.82, Est GFR (MDRD) Af Amer 10 L, Est GFR (MDRD) Non-Af 8 L, BUN/Creatinine Ratio 4.7 L, Glucose 93, Calcium 9.5 Current Medications Acetaminophen (Acetaminophen 325 Mg Tablet) 650 mg PO Q6H PRN PRN PRN Reason: Pain Score 1-10/Temp > 100.7 F Last Admin: 04/25/20 13:43 Dose: 650 mg Documented by: Allopurinol (Allopurinol 100 Mg Tablet) 100 mg PO MOWEFR [facility] Last Admin: 04/25/20 10:35 Dose: 100 mg Documented by: Amlodipine Besylate (Amlodipine 2.5 Mg Tablet) 2.5 mg PO DAILY [facility] Last Admin: 04/25/20 13:43 Dose: 2.5 mg Documented by: Apixaban (Apixaban 5 Mg Tablet) 5 mg PO BID [facility] Last Admin: 04/25/20 20:55 Dose: 5 mg Documented by: Atorvastatin Calcium (Atorvastatin Calcium 20 Mg Tablet) 20 mg PO QHS [facility] Last Admin: 04/25/20 20:55 Dose: 20 mg Documented by: Calcium Carbonate (Calcium Carbonate 500 Mg Tablet) 1,000 mg PO Q4H PRN PRN PRN Reason: DYSPEPSIA Last Admin: 04/26/20 07:00 Dose: 1,000 mg Documented by: Docusate Sodium (Docusate Sodium 100 Mg Capsule) 100 mg PO BID [facility] Last Admin: 04/25/20 20:55 Dose: 100 mg Documented by: Sodium Chloride () 250 mls @ 15 mls/hr IV .[id number] PRN PRN Reason: Saline Flush Sodium Chloride () 250 mls @ 15 mls/hr IV .[id number] PRN PRN Reason: Additional IVPB Infusion Lisinopril (Lisinopril 5 Mg Tablet) 5 mg PO DAILY [facility] Last Admin: 04/26/20 05:59 Dose: 5 mg Documented by: Metoprolol Tartrate (Metoprolol Tartrate 25 Mg Tablet) 25 mg PO BID [facility] Last Admin: 04/25/20 20:55 Dose: 25 mg Documented by: Multivit/Ca Carb/B Cmplx/FA/Prenat (Folic Acid/Vitamin B Comp W-C 1 Capsule) 1 capsule PO DAILY [facility] Last Admin: 04/25/20 13:39 Dose: 1 capsule Documented by: Ondansetron HCl (Ondansetron 4 Mg/2 Ml Vial) 4 mg IV Q8H PRN PRN PRN Reason: NAUSEA/VOMITING Last Admin: 04/25/20 12:16 Dose: 4 mg Documented by: Oxycodone HCl (Oxycodone 5 Mg Tablet) 5 mg PO Q4H PRN PRN PRN Reason: Pain Score 4-5 Last Admin: 04/26/20 07:57 Dose: 5 mg Documented by: Sevelamer Carbonate (Sevelamer Carbonate 800 Mg Tablet) 800 mg PO TIDCM [facility] Last Admin: 04/26/20 09:21 Dose: Not Given Documented by: Sodium Chloride (0.9% Saline Lock 10 Ml Syringe) 10 - 40 ml IV UD PRN PRN Reason: SALINE FLUSH Last Admin: 04/25/20 12:16 Dose: 10 ml Documented by: Trazodone HCl (Trazodone 50 Mg Tablet) 50 mg PO QHS [facility] Medical Necessity - Tobacco Use Smoking Status: Never smoker Tobacco Use: Non-smoker Assessment/Plan All Active Problems (Last Reviewed 12/27/19 @ 14:15 by Viridiana Adam) Sepsis (Acute) LLQ abdominal pain (Acute) New onset of congestive heart failure (Acute) Elevated troponin I level (Acute) Hay fever (Acute) End-stage renal disease New onset CHF Anemia of renal disease Seen on dialysis today. Tolerating fluid removal so far. Echocardiogram reviewed. Ejection fraction is significantly lower than what it was before. Cardiology is following. She is scheduled for a stress test later today. She is active on transplant list at [facility]. These echocardiogram findings might change that. Will follow up with cardiology.
--- NOTE | 2020-04-26 10:22 | PN.CARD_ITS ---
Subjectve: Pleasant lady in no distress at this time. Objective: Vital Signs Temp Pulse Resp BP Pulse Ox 97.5 F L 79 18 137/101 H 99 04/26/20 09:00 04/26/20 09:00 04/26/20 09:00 04/26/20 09:00 04/26/20 09:00 Oxygen Flow Rate (L/min) 2 Oxygen Delivery Method Room Air Weight: 137 lb 2.04 oz Body Mass Index (BMI) 27.8 Intake and Output for Last 24 Hours 04/24/20 04/25/20 04/26/20 23:59 23:59 23:59 Intake Total 1010 / 1010 0 / 0 Output Total 3000 / 3000 0 / 0 Balance -1989 / 0 / 0 General: Awake, Alert, Oriented x 3 HEENT: PERRL, EOMI, Sclera Non Icteric Neck: Supple, Good ROM, No Lymph Node Enlargement Lungs: Clear to auscultation Cardiovascular: Regular Rhythm, Normal S1, Normal S2, No Murmurs, No Rubs, No Gallops Vascular: No Carotid Bruits, Normal Femoral Pulses, Normal Radial Pulses, Normal Dorsalis Pedal Pulse, Normal Posterior Tibial Pulses Abdomen: Bowel Sounds Present, Soft, Non Tender, No HSM, No Organomegaly Extremities: No Cyanosis, No Clubbing, No edema Neurological: No Focal Motor or Sensory Deficit 04/25/20 10:26: Troponin I 0.040 04/26/20 07:20: WBC 7.8, RBC 3.95 L, Hgb 11.4 L, Hct 37.6, MCV 95.2, MCH 28.9, MCHC 30.3 L, Plt Count 311, MPV 10.6 04/26/20 07:20: Sodium 139, Potassium 4.8, Chloride 106, Carbon Dioxide 28.0, Anion Gap 5, BUN 27 H, Creatinine 5.70 H, Est GFR (MDRD) Af Amer 10 L, Est GFR (MDRD) Non-Af 8 L, BUN/Creatinine Ratio 4.7 L, Glucose 93, Calcium 9.5 Rhythm: EKG: ECHO: Stress Test: Cardiac Cath: PCI: CT Surgery: Holter monitor: EPS: PPM: CXR: Chest CT Scan: Medical Necessity - Tobacco Use Smoking Status: Never smoker Tobacco Use: Non-smoker Assessment/Plan 1. Heart failure with reduced ejection fraction * Patient presents with shortness of breath and has an elevated natruretic peptide and a chest x-ray consistent with heart failure. The above is likely secondary to preserved ejection fraction and diastolic dysfunction. * Would recommend aggressive diuresis as per nephrology service * An echocardiogram performed demonstrated significant global reduction in left ventricular ejection fraction estimated at 25%. * The stress test was normal and thus excluded significant obstructive coronary disease. * 2. Hypertension * Blood pressure appears to be under suboptimal control at this time and I would suggest that we add a low-dose of a beta-bismark as well as amlodipine. * 3. Abnormal cardiac enzymes * The above is likely secondary to demand ischemia. My recommendation is for us to continue the current medical therapy * At this juncture we should pursue a stress test and depending on the findings further recommendations will be made. * Would recommend the addition of statins to her regimen * 4. End-stage renal disease. * Patient is being followed by game moderator. She is on anticoagulation apparently for catheter patency. She is undergoing dialysis at this particular time. * Thank you for allowing me to participate in the care of your patient. Please don't hesitate to call if any issues arise.
[2020-04-26] MEDS: Morphine 2 MG/ML Syringe IV (11:45)
[2020-04-26] MEDS: 0.9% Saline Lock 10 ML Syringe IV ×2 (11:45→12:12)
[2020-04-26] MEDS: Ondansetron 4 MG/2 ML Vial IV (12:12)
[2020-04-26] MEDS: Folic Acid/Vitamin B Comp W-C 1 Capsule 1 CAP PO (12:18)
[2020-04-26] MEDS: Metoprolol Tartrate 25 MG Tablet PO (12:18)
[2020-04-26] MEDS: amLODIPine 2.5 MG Tablet PO (12:19)
[2020-04-26] MEDS: Docusate Sodium 100 MG Capsule PO (12:19)
--- NOTE | 2020-04-26 12:54 | STRESSREP ---
Stress Test Report Pharmacologic myocardial perfusion stress test. 59-year-old lady with a history of a cardiomyopathy. Stress protocol: Resting EKG demonstrates normal sinus rhythm with a rate of 84 bpm normal intervals are noted resting blood pressure is 128/80 mmHg. 0.4 mg of regadenoson was infused per usual protocol followed by rapid intravenous saline flush injection continuous EKG monitoring was performed. The maximum heart rate attained was 104 bpm which was 63% of maximum predicted heart rate the maximum workload was 1 metabolic equivalent. At rest there were no ST or T wave changes noted to suggest abnormal flow reserve at peak infusion nonspecific ST-T wave changes were noted with no meet the criteria for ischemia. No clinical angina was noted. Myocardial perfusion protocol. 12.0 mCi of technetium 99m sestamibi was injected at rest. 0.4 mg of regadenoson was infused per usual protocol. At peak infusion 35.7 mCi of technetium 99m sestamibi was injected stress images were obtained stress and rest images were reconstructed and compared in the short axis vertical long horizontal long axis. Gated images were also obtained Perfusion SPECT analysis: Review of the images demonstrate normal uptake of tracer noted in all areas of the myocardium the resting images demonstrate normal perfusion in all areas of the myocardium stress and rest images demonstrate no evidence of ischemia. Gated SPECT analysis: The gated ejection fraction is 30%. Conclusion: Normal pharmacologic myocardial perfusion stress test. Global reduction in left ventricular ejection fraction.
--- NOTE | 2020-04-26 13:09 | PCM.DC ---
- Discharge Diagnoses Current Active Problems: Current Active and Chronic Problems (Last Reviewed 12/27/19 @ 14:15 by Viridiana Adam) New onset of congestive heart failure (Acute) Elevated troponin I level (Acute) Hemodialysis patient (Chronic) Chronic pain (Chronic) Gout (Chronic) Polycystic kidney disease (Chronic) End stage renal failure on dialysis (Chronic) You will use the following diet at home:: Cardiac Discharge Activity: Return to Normal Activity Call your doctor if you observe: Shortness of breath, Dizziness, Fainting spells, Chest pain Allergies/Adverse Reactions: Allergies cephalexin Allergy (Mild, Verified 03/24/20 19:54) rash Penicillins Allergy (Verified 03/24/20 19:54) Rash codeine Adverse Reaction (Verified 03/24/20 19:54) Nausea Medications to take at Discharge Allopurinol [Zyloprim] 100 mg PO MOWEFR 09/01/16 Oxycodone [Oxyir] 5 - 10 mg PO Q4H PRN PRN 09/01/16 albuterol sulfate 90 mcg/actuation aerosol inhaler 2 puff INHALATION Q6H PRN 12/27/19 apixaban 5 mg tablet 5 mg PO BID 12/27/19 docusate sodium 100 mg capsule 100 mg PO BID 12/27/19 Sevelamer Carbonate 800 mg PO TID 01/07/20 Folic Acid/Vitamin B Comp W-C [Nephrocaps, Renaphro] 1 cap PO DAILY 03/25/20 Ondansetron HCl [Zofran] 4 mg PO Q6H PRN PRN #30 tab 03/27/20 Amlodipine [Norvasc] 2.5 mg PO DAILY #30 tab 04/26/20 Atorvastatin Calcium [Lipitor] 20 mg PO QHS #30 tab 04/26/20 Lisinopril [Zestril] 5 mg PO DAILY #30 tab 04/26/20 Metoprolol Tartrate [Lopressor (beta bismark)] 25 mg PO BID #60 tab 04/26/20 The following prescriptions were given: Atorvastatin Calcium [Lipitor] 20 mg PO QHS #30 tab Transmission Status: Pending to [id number] Metoprolol Tartrate [Lopressor (beta bismark)] 25 mg PO BID #60 tab Transmission Status: [facility]ending [id number] Amlodipine [Norvasc] 2.5 mg PO DAILY #30 tab Transmission Status: [id number] Lisinopril [Zestril] 5 mg PO DAILY #30 tab Transmission Status: [id number] Primary Care Physician: Raphael Russell MD [Primary Care Provider] - Please follow up with your Primary Care Physician in: 1 Week Test Results: Test results from this visit will be discussed in further detail at your follow-up appointment, if applicable. Please Follow Up With: Chinedu Polo MD When: 4 Weeks, may see LIME FILTER OPERATOR/PA Proposed Discharge Date: 04/26/20
--- NOTE | 2020-04-26 13:12 | PCM.DC.SUM ---
Discharge Date and Diagnosis - Problem List Patient Problems: Active and Suspected Problems (Last Reviewed 12/27/19 @ 14:15 by Viridiana Adam) New onset of congestive heart failure (Acute) Elevated troponin I level (Acute) Date of Admission: 04/24/20 Date of Discharge: 04/26/20 - Primary Discharge Diagnosis Acute Problems: Active Problems (Last Reviewed 12/27/19 @ 14:15 by Viridiana Adam) 1. Acute combined systolic and diastolic CHF 2. ESRD on hemodialysis secondary to polycystic kidney disease status post bilateral nephrectomy (2015) 3. Hypertension 4. Anemia of chronic disease 5. Gout - Secondary Discharge Diagnosis Chronic Problems: Chronic Problems (Last Reviewed 12/27/19 @ 14:15 by Viridiana Adam) Hemodialysis patient (Chronic) Chronic pain (Chronic) Gout (Chronic) Polycystic kidney disease (Chronic) End stage renal failure on dialysis (Chronic) Hospital Course and Treatment Imaging Results: Diagnostic Data Chest X-Ray 04/24/20 20:05 IMPRESSION: Probable development of mild interstitial edema and mild atelectasis or infiltrate in the lung bases with small effusions. Electronically Signed: Sloan Traore MD at 21:30 EST , Service support , Dr. Polo- Cardiology Dr. Lau- Nephrology Operations: None Procedures: 2-D Echocardiogram, Stress test Summary of Care Provided: The patient is a 59 year old F admitted 04/24/2020 due to dyspnea and orthopnea. 1. Acute combined systolic and diastolic CHF- BNP 3700. Chest x-ray shows mild interstitial edema. Oxygen stable on room air. Cardiology consulted. Echocardiogram demonstrates an EF of 25%, stage II diastolic dysfunction. Previous echocardiogram July 2019 demonstrated EF of 60%. Patient had recent stress test February 2020 which showed no ischemia. LVEF 72%. Continue diuresis with dialysis. Repeat stress test again without ischemia. Continue medical management with amlodipine, lisinopril, metoprolol. Follow-up with cardiology in 1 month. 2. ESRD on hemodialysis secondary to polycystic kidney disease status post bilateral nephrectomy (2015)- Follows with Dr. Lau. Nephrology consulted. Continue dialysis regimen per nephrology. Patient typically complete home dialysis. On anticoagulation with Eliquis. 3. Hypertension-stable, continue amlodipine, beta-bismark, GUS inhibitor regimen. 4. Anemia of chronic disease- stable. 5. Gout-on allopurinol. General: Alert, Oriented x3, Cooperative HEENT: Atraumatic, PERRLA, EOMI, Normocephalic Neck: Supple, No JVD, Negative Carotid Bruits Lungs: Clear to auscultation, Diminished Cardiovascular: Regular rate, No murmurs Abdomen: Bowel Sounds Present, Soft, Non Tender, Non-Distended Extremities: No clubbing, No cyanosis, Capillary Refill Less than 3 Seconds, Edema - Bilateral lower extremities, nonpitting Skin: No rashes, No breakdown Musculoskeletal: No Tenderness to Palpation of Joints or Extremities Neurological: Cranial nerves II-XII grossly intact, Neuro grossly intact Psych/Mental Status: Normal Affect, Appropriate Patient seen and examined prior to discharge. Physical assessment as noted above. Patient is stable for discharge with follow up recommendations as noted above. This patient was seen by SONIDO Herman under the supervision of Dr. Truong. Patient Problems: Active and Suspected Problems (Last Reviewed 12/27/19 @ 14:15 by Viridiana Adam) New onset of congestive heart failure (Acute) Elevated troponin I level (Acute) - Physical Exam Vitals/I&O's: Vital Signs Temp Pulse Resp BP Pulse Ox 97.9 F 78 18 115/72 96 04/26/20 12:16 04/26/20 12:18 04/26/20 12:16 04/26/20 12:16 04/26/20 12:16 Oxygen Flow Rate (L/min) 2 Oxygen Delivery Method Room Air Weight: 137 lb 2.04 oz Body Mass Index (BMI) 27.8 Intake and Output for Last 24 Hours 04/24/20 04/25/20 04/26/20 23:59 23:59 23:59 Intake Total 1010 / 1010 0 / 0 Output Total 3000 / 3000 2600 / 2600 Balance -1989 / -1989 -2600 / -2600 Laboratory Results 04/26/20 07:20: WBC 7.8, RBC 3.95 L, Hgb 11.4 L, Hct 37.6, MCV 95.2, MCH 28.9, MCHC 30.3 L, RDW Std Deviation 57.8 H, RDW Coeff of Radha 16.4 H, Plt Count 311, MPV 10.6 04/26/20 07:20: Sodium 139, Potassium 4.8, Chloride 106, Carbon Dioxide 28.0, Anion Gap 5, BUN 27 H, Creatinine 5.70 H, Estim Creat Clear Calc 7.82, Est GFR (MDRD) Af Amer 10 L, Est GFR (MDRD) Non-Af 8 L, BUN/Creatinine Ratio 4.7 L, Glucose 93, Calcium 9.5 Current Medications Acetaminophen (Acetaminophen 325 Mg Tablet) 650 mg PO Q6H PRN PRN PRN Reason: Pain Score 1-10/Temp > 100.7 F Last Admin: 04/25/20 13:43 Dose: 650 mg Documented by: Allopurinol (Allopurinol 100 Mg Tablet) 100 mg PO MOWEFR [facility] Last Admin: 04/25/20 10:35 Dose: 100 mg Documented by: Amlodipine Besylate (Amlodipine 2.5 Mg Tablet) 2.5 mg PO DAILY [facility] Last Admin: 04/26/20 12:19 Dose: 2.5 mg Documented by: Apixaban (Apixaban 5 Mg Tablet) 5 mg PO BID [facility] Last Admin: 04/25/20 20:55 Dose: 5 mg Documented by: Atorvastatin Calcium (Atorvastatin Calcium 20 Mg Tablet) 20 mg PO QHS [facility] Last Admin: 04/25/20 20:55 Dose: 20 mg Documented by: Calcium Carbonate (Calcium Carbonate 500 Mg Tablet) 1,000 mg PO Q4H PRN PRN PRN Reason: DYSPEPSIA Last Admin: 04/26/20 07:00 Dose: 1,000 mg Documented by: Docusate Sodium (Docusate Sodium 100 Mg Capsule) 100 mg PO BID [facility] Last Admin: 04/26/20 12:19 Dose: 100 mg Documented by: Sodium Chloride () 250 mls @ 15 mls/hr IV .[id number] PRN PRN Reason: Saline Flush Sodium Chloride () 250 mls @ 15 mls/hr IV .[id number] PRN PRN Reason: Additional IVPB Infusion Lisinopril (Lisinopril 5 Mg Tablet) 5 mg PO DAILY [facility] Last Admin: 04/26/20 05:59 Dose: 5 mg Documented by: Metoprolol Tartrate (Metoprolol Tartrate 25 Mg Tablet) 25 mg PO BID [facility] Last Admin: 04/26/20 12:18 Dose: 25 mg Documented by: Multivit/Ca Carb/B Cmplx/FA/Prenat (Folic Acid/Vitamin B Comp W-C 1 Capsule) 1 capsule PO DAILY [facility] Last Admin: 04/26/20 12:18 Dose: 1 capsule Documented by: Ondansetron HCl (Ondansetron 4 Mg/2 Ml Vial) 4 mg IV Q8H PRN PRN PRN Reason: NAUSEA/VOMITING Last Admin: 04/26/20 12:12 Dose: 4 mg Documented by: Oxycodone HCl (Oxycodone 5 Mg Tablet) 5 mg PO Q4H PRN PRN PRN Reason: Pain Score 4-5 Last Admin: 04/26/20 07:57 Dose: 5 mg Documented by: Sevelamer Carbonate (Sevelamer Carbonate 800 Mg Tablet) 800 mg PO TIDCM [facility] Last Admin: 04/26/20 09:21 Dose: Not Given Documented by: Sodium Chloride (0.9% Saline Lock 10 Ml Syringe) 10 - 40 ml IV UD PRN PRN Reason: SALINE FLUSH Last Admin: 04/26/20 12:12 Dose: 10 ml Documented by: Trazodone HCl (Trazodone 50 Mg Tablet) 50 mg PO QHS [facility] Discharge Diet: Low fat/ Low Cholesterol, 8 Cup Fluid Restriciton, 2000 mg Sodium Diet Discharge Activity: Return to Normal Activity Call your doctor if you observe: Shortness of breath, Dizziness, Fainting spells, Chest pain Home Medications: Medications to take at Discharge Allopurinol [Zyloprim] 100 mg PO MOWEFR 09/01/16 Oxycodone [Oxyir] 5 - 10 mg PO Q4H PRN PRN 09/01/16 albuterol sulfate 90 mcg/actuation aerosol inhaler 2 puff INHALATION Q6H PRN 12/27/19 apixaban 5 mg tablet 5 mg PO BID 12/27/19 docusate sodium 100 mg capsule 100 mg PO BID 12/27/19 Sevelamer Carbonate 800 mg PO TID 01/07/20 Folic Acid/Vitamin B Comp W-C [Nephrocaps, Renaphro] 1 cap PO DAILY 03/25/20 Ondansetron HCl [Zofran] 4 mg PO Q6H PRN PRN #30 tab 03/27/20 Amlodipine [Norvasc] 2.5 mg PO DAILY #30 tab 04/26/20 Atorvastatin Calcium [Lipitor] 20 mg PO QHS #30 tab 04/26/20 Lisinopril [Zestril] 5 mg PO DAILY #30 tab 04/26/20 Metoprolol Tartrate [Lopressor (beta bismark)] 25 mg PO BID #60 tab 04/26/20 Following Prescriptions Were Given to Patient: Atorvastatin Calcium [Lipitor] 20 mg PO QHS #30 tab Transmission Status: [id number] Metoprolol Tartrate [Lopressor (beta bismark)] 25 mg PO BID #60 tab Transmission Status: [id number] Amlodipine [Norvasc] 2.5 mg PO DAILY #30 tab Transmission Status: [id number] Lisinopril [Zestril] 5 mg PO DAILY #30 tab Transmission Status: [id number] Primary Care Physician: Raphale Russell MD [Primary Care Provider] - Please follow up with your Primary Care Physician in: 1 Week Please Follow Up With: Chinedu Polo MD When: 4 Weeks, may see LAND CLEARER/PA Disposition: Home Minutes spent on discharge:: 35 Patient Condition:: Stable Medical Necessity - Tobacco Use Smoking Status: Never smoker Tobacco Use: Non-smoker Meaningful Use Info Meaningful Use Diagnoses (Choose all that apply): CHF - CHF GUS/ARB ordered at discharge?: Yes Documented LVEF (%): 25
[2020-04-26] MEDS: APIXABAN 5 MG TABLET PO (14:08)
--- NOTE | 2020-04-29 12:39 | CASEMGMT ---
KIARA QUIROS DC PHONE CALL DC DATE: 04/26/2020 DC DISPOSITION: Home DC DIAGNOSIS: CHF LACE/STRATA: 05/08 F/U APPTS MADE PRIOR TO DC: no PRESCRIPTIONS ACQUIRED BY PT: yes Intro role of CM to patient via phone. Patient states she has her medications, does not have questions re: instructions or f/u. Patient can make own appointments. No care improvement suggestions were given. Damion JOYNER RN ACM
== END 2020-04-26 14:49 | disposition home or self-care (01) | DRG 291 ==
LOC: ED 21:12 → PCU 21:48
PROVIDERS: Nurse Practitioner Family; Admitting Provider Family Medicine; Emergency Provider Emergency Medicine; PCP Family Medicine; Visit Provider Internal Medicine
DX: I13.2 Hypertensive heart and chronic kidney disease with heart failure and with stage 5 chronic kidney disease, or end stage renal disease (principal); N18.6 End stage renal disease; I50.41 Acute combined systolic (congestive) and diastolic (congestive) heart failure; Q61.3 Polycystic kidney, unspecified; I24.8 Other forms of acute ischemic heart disease; G89.4 Chronic pain syndrome; Z66 Do not resuscitate; D63.8 Anemia in other chronic diseases classified elsewhere; M1A.9XX0 Chronic gout, unspecified, without tophus (tophi); Z79.01 Long term (current) use of anticoagulants; Z82.71 Family history of polycystic kidney; Z90.49 Acquired absence of other specified parts of digestive tract; Z90.5 Acquired absence of kidney; Z99.2 Dependence on renal dialysis; Z76.82 Awaiting organ transplant status
CPT/HCPCS: 36415; 71046; 78452; 80048; 80053; 80061; 83735; 83880; 84443; 84484; 85025; 85027; 90937; 93005; 93017; 93306; 94640; 99251; 99285; A9500; A4216; G0257; G0463; J2405; J2785

== ENCOUNTER 2020-06-30 06:51 | Day surgery (SDC) | payer MEDICARE, OTHER, SELFPAY ==
[2020-05-07 16:04] VITALS: BMI 25.9
[2020-06-20 15:03] LABS: Hemoglobin 12.4 g/dL (12.0-15.0); Mean Corp Hgb Conc 31.8 g/dL (32-36); Mean Corpuscular Hgb 29.5 pg (27.0-32.0); Mean Corpuscular Volume 92.6 fL (81-99); Mean Platelet Vol. 9.8 fl (6.2-12.0); Platelet Count 323 K/mm3 (150-450); RBC Distribution Width CV 15.4 % (11.6-14.6); RBC Distribution Width SD 52.1 fl (35.1-43.9); Red Blood Count 4.21 M/mm3 (4.2-5.4); White Blood Count 8.1 K/mm3 (4.4-11.0)
[2020-06-20 15:14] LABS: International Normalized Ratio 1.4; Prothrombin Time (Protime)PT. 16.3 SECONDS (11.7-14.9)
[2020-06-20 15:15] LABS: Partial Thromboplast Time 42.8 Seconds (24.1-36.2)
[2020-06-20 15:53] LABS: Anion Gap 4 (5-15); BUN 32 mg/dL (7-18); BUN/Creat Ratio 4.6 RATIO (10-20); Calcium,Total 9.5 mg/dL (8.5-10.1); Chloride 98 mmol/L (98-107); Creatinine, Serum 6.93 mg/dL (0.55-1.02); EST Glomerular Filtration Rate 7 mL/min (>60); Est Glom Filt Rate - Afr Amer 8 mL/min (>60); Glucose 88 mg/dL (74-106); Potassium 5.8 mmol/L (3.5-5.1); Sodium Level 132 mmol/L (136-145)
[2020-06-27 08:12] VITALS: BMI 25.9
--- NOTE | 2020-06-27 08:23 | HP.PCM_ITS ---
History and Physical Date of Admission: 06/30/20 Pleasant 59-year-old lady with a history of polycystic kidney disease status post bilateral nephrectomy on dialysis who had been on the kidney transplant list. She presented to the Emergency Room on 04/25/2020 with shortness of breath. She was noted to have elevation of her BTNP and was noted to be in congestive heart failure. She did have minimal troponin elevation as well. An echocardiogram done demonstrated global hypokinesis with an estimated ejection fraction of 25%. In July of this year, her ejection fraction was noted to be 60% with no wall motion abnormalities present. She did have a stress test in February 2020 where she exercised to 7 metabolic equivalents with no ischemia and a repeat stress test in April 2020 demonstrated no evidence of ischemia with global hypokinesis. She has had no dizziness or diaphoresis no near syncope or syncope she was started on a beta-bismark and her GUS inhibitor. She is on apixaban which she takes her that her dialysis catheter does not clogged up. Since discharge she says that she has had no cardiac issues. Her physical exam here today is unremarkable. Due to her being on kidney transplant list, as part of her work-up, she will proceed with left heart catheterization. Intake Vital Signs: See EMR Intake Visit Reasons: C Allergies cephalexin Allergy (Mild, Verified 05/07/20 12:45) rash Penicillins Allergy (Verified 05/07/20 12:45) Rash codeine Adverse Reaction (Verified 05/07/20 12:45) Nausea Medications See EMR Ejection fraction %: 25 to 29 [facility] Medical History Elevated troponin I level (Resolved 04/25/20) Non-ischemic cardiomyopathy (Acute) Acute combined systolic (congestive) and diastolic (congestive) heart failure (Acute 04/22/20) Essential (primary) hypertension (Chronic) Hemodialysis patient (Chronic) End stage renal failure on dialysis (Chronic) Anemia (Chronic) Chronic pain (Chronic) Gout (Chronic) Hay fever (Chronic) Polycystic kidney disease (Chronic) LLQ abdominal pain (Resolved) Sepsis (Ruled-out) Surgical History History of (Resolved) History of cholecystectomy (Resolved) History of left nephrectomy (Resolved) History of right nephrectomy (Resolved) s/p port placement (Resolved) Family History Father Aneurysm Kidney disease Social History (Updated 05/07/20 @ 16:[address] Chinedu Polo MD) Smoking Status: Never smoker alcohol intake: never substance use type: does not use caffeine: Yes what type of physical activity do you participate in: none seatbelt use: always do you feel safe at home: Yes additional social history: Rlopj[employer]Unq[employer]Vb[employer] Nikoe MISAEL Const Const: Negative for fatigue, weakness, headache(s), frequent falls, difficulty sleeping or excessive sweating Eyes Eyes: Negative for loss of peripheral vision, transient loss of vision, blurry vision, double vision or tunnel vision ENT ENT: Negative for headache(s), dizziness, Nosebleed/epistaxis or balance problems Cardio Chest Pain: No Palpitations: No Edema: None Muscle aches with walking: None Resp Respiratory: Negative for SOB with activity, SOB at rest, SOB orthopnea\SOB lying down, Cough or paroxysmal nocturnal dyspnea GI GI: Negative nausea, vomiting, heartburn or black,tarry stools : Negative for hematuria Musc Musc: Negative for muscle aches/ myalgia, muscle weakness, joint pain or balance problems Skin Skin: Negative non-healing lesions, rash or unusual bruising Neuro Neuro: Negative for dizziness, lightheadedness, near syncope, syncope, orthostatic symptoms, frequent falls, headache(s), weakness, blurry vision, double vision or lack of coordination Fredy Hematologic/Lymphatic: Negative for easy bleeding or easy bruising Endo Endo: Negative for fatigue, excessive sweating or increased thirst/drinking Psych Psych: Negative for anxiety or depression Allergy Allergy/Immunology: Negative for hives, Negative for rash Cardiology Exam Const Appearance: cooperative, healthy appearing, no acute distress, well developed and well groomed Nutritional Appearance: average body habitus and well nourished Orientation: alert, awake and oriented x3 Head Head: normal to inspection, normocephalic and atraumatic Ears: hearing grossly normal bilaterally and external ears normal Nose: external nose normal, nares normal, nasal mucous membranes and turbinates normal, septum normal, no nasal discharge Face and Sinus: face symmetric Mouth: oral mucosae normal, tongue normal, oropharynx normal and moist mucous membranes Teeth and gingiva: dentition normal Throat: posterior oropharynx normal, tonsils normal and uvula midline Eyes General: appearance normal, both eyes and all related structures Eyelids: eyelids normal Conjunctivae: conjunctivae normal Pupils: PERRL, normal by confrontation and accommodation normal EOM: EOM intact bilaterally Neck Neck: normal visual inspection, trachea midline and no JVD JVD: +5 Carotids: normal carotid upstroke and bounding pulses Chest Chest inspection: normal inspection of the chest, symmetric chest movement and normal respiratory effort Auscultation: Bilateral: Clear to Auscultation Cardio Palpation: normal PMI Rate: regular rate Rhythm: regular rhythm Heart sounds: S1 normal, S2 normal and normal, physiologic split S2; negative rub, gallop or murmur GI GI: normal to inspection, soft, no hepatosplenomegaly and bowel sounds present Neuro General: alert, awake, oriented x3, gait normal, moves all extremities and no focal sensory deficit Skin Skin: no rashes or lesions noted Extremities Pulses: Normal: Right Femoral Pulse, Left Femoral Pulse, Right Dorsalis Pedis Pulse, Left Dorsalis Pedis Pulse, Right Posterior Tibial Pulse, Left Posterior Tibial Pulse, Right Radial Pulse, Left Radial Pulse Lower Extremity Edema: None: Bilateral Musculoskel Musculoskeletal: No joint tenderness Psych Psychological: normal affect Assessment & Plan 1. Non-ischemic cardiomyopathy I42.8 Plan She does appear to have evidence of nonischemic cardiomyopathy. My cassandra mmendation at this time will be to continue her on the beta-bismark together with the GUS inhibitor. I would like us to repeat her echocardiogram in 3 months to see whether there is been any improvement in the above. Patient will proceed with [facility] as part of her work up regarding kidney transplant. 2. Acute combined systolic (congestive) and diastolic (congestive) heart failure I50.41 Plan She does have evidence of systolic heart failure with an estimated ejection fraction of 25%. She is on dialysis as her diuretic management and she is on the GUS inhibitor and the beta-bismark. No changes will be made at this particular time. 3. Essential (primary) hypertension I10 Plan Her blood pressure appears to be under good control at this time and I would not suggest that we make any other changes. We will continue to watch the above during her dialysis treatments thank you for allowing me to participate in her care. Procedure Criteria Procedure Type: Elective COVID Risk Discussion: The surgeon/proceduralist and patient have discussed in detail the risk of exposure to and/or potential harm posed by the COVID-19 virus with having a surgery/procedure at this time versus the risk of delaying the surgery/procedure. It is not possible to know either the risk of delaying the surgery or procedure or chance of getting an infection with perfect accuracy, but a joint decision was made between the patient and the surgeon/proceduralist to proceed at this time with the scheduled surgery/procedure as indicated on the consent form.
--- NOTE | 2020-06-30 09:03 | CL.D_ITS ---
Patient Name: GIUSEPPE XVAIER Study Date: 06/30/2020 Performing: Chinedu Polo MD Ht: 61.02 inches 155 cm : 1960 Wt: 136.69 lbs 62 kg Age: 59 Gender: female BSA: 1.61 PROCEDURE(S) PERFORMED PE23-VEQ/COR CLINICAL PROFILE AND INDICATIONS Indications: Suspected CAD Heart Failure: None Stress/Imaging Stress/Image Study Performed: No CAD Presentations: No Sxs, no angina. CONCLUSIONS Minimal CAD RECOMMENDATIONS Medical therapy DESCRIPTION OF PROCEDURE The patient arrived to the procedure lab. The risks and benefits of the procedure as well as a full d escription of our services here and current unavailability of surgical backup were fully explained to the patient and/or their significant other prior to the catheterization. The Timeout was completed, verifying the correct patient and procedure. The patient's procedural site was prepped and draped in the usual fashion. Local anesthetic was given subcutaneously to right groin region with Lidocaine 2%. Using a modified Seldinger technique, arterial access was obtained via the right femoral artery, a 5 Fr sheath was inserted. Left Coronary Artery selective angiography was performed in multiple views u sing a 5 Fr. JL4 catheter. Right Coronary Artery selective angiography was then performed in multiple views using a 5 Fr. 3DRC (Baljit) catheter.Contrast was injected through the sheath and the Right Iliac and Femoral artery were assessed for possible closure device.The arterial sheath was pulled and a Mynx closure device was deployed for hemostasis CORONARY ANGIOGRAPHY DOMINANCE: Right Dominant LEFT HEART ASSESSMENT Left Ventricular Ejection Fraction: Not assessed LEFT MAIN: Angiographically normal LEFT ANTERIOR DESCENDING ARTERY: PROX LAD: 20 % Stenosis CIRCUMFLEX ARTERY: No significant disease noted RIGHT CORONARY ARTERY: No significant disease noted COMPLICATIONS No Complications PROCEDURE MEDICATIONS Oxygen: 2 L/min via nasal cannula SUMMARY OF HEMODYNAMIC DATA Time AIR REST ECG 07:14:38 AO 87/42 (59) SA 08:33:14 AO 100/47 (67) 08:40:59 Signed By Chinedu Polo MD On 06/30/2020 9:02:30 AM Chinedu Polo MD
--- NOTE | 2020-06-30 09:03 | ECHOCS_ITS ---
Version 2 Reason For Study: Dyspnea/SOB Procedure This was a 2D Doppler, Color Flow transthoracic echocardiogram. Contrast injection was performed. Exam performed in department. Left Ventricle Normal LV size. The estimated ejection fraction is 40 %. Compared to previous study, the left ventricular systolic function has improved.. Stage 1 diastolic dysfunction. There is moderate global hypokinesis of the left ventricle. Right Ventricle Normal RV size. Normal systolic function. Great Vessels Normal aortic root. Pericardium/Pleural No pericardial effusion. Medication Diluted definity 4ml given slow IV push to enhance endocardial definition. MMode/2D Measurements & Calculations LVIDd: 4.1 cm IVSd: 0.97 cm Ao root diam: 2.7 cm LVIDs: 3.2 cm LVPWd: 1.1 cm RVDd: 2.6 cm FS: 23.1 % LAV(MOD-bp): 18.8 ml SV(MOD-sp4): 45.0 ml LVAd ap4: 27.8 cm2 LAV(MOD-bp) Indexed: 11.6 ml/m2 EDV(MOD-sp4): 83.7 ml LAV(MOD-sp2): 24.5 ml EDV(sp4-el): 86.4 ml LAV(MOD-sp4): 13.2 ml LVAs ap4: 16.8 cm2 ESV(MOD-sp4): 38.7 ml ESV(sp4-el): 39.8 ml EF(MOD-sp4): 53.8 % EF(sp4-el): 53.9 % SV(sp4-el): 46.6 ml LA A4 area: 7.5 cm2 LA dimension(2D): 2.9 cm RA A4 area: 9.0 cm2 Doppler Measurements & Calculations MV E max chad: 52.1 cm/sec Lat Peak E' Chad: 7.6 cm/sec Med Peak E' Chad: 5.2 cm/sec MV A max chad: 59.3 cm/sec E/E' lat: 6.9 E/E' med: 10.1 MV E/A: 0.88 Ao V2 max: 112.7 cm/sec LV V1 max: 72.5 cm/sec PA V2 max: 85.7 cm/sec Ao max P.1 mmHg LV V1 max P.1 mmHg Ao V2 mean: 84.7 cm/sec Ao mean P.0 mmHg Ao V2 VTI: 22.1 cm Interpretation Summary Normal LV size. The estimated ejection fraction is 40 %. Compared to previous study, the left ventricular systolic function has improved.. There is moderate global hypokinesis of the left ventricle. Stage 1 diastolic dysfunction. Contrast injection was performed. Ordering Physician: Chinedu Polo Referring Physician: Raphael Russell Performed By: Whit Braxton, SEBAS, RVT
== END 2020-06-30 12:10 | disposition home or self-care (01) ==
PROVIDERS: PCP Family Medicine; Referring Provider Internal Medicine Cardiovascular Disease; Visit Provider Internal Medicine Cardiovascular Disease
DX: I42.8 Other cardiomyopathies (principal); I50.41 Acute combined systolic (congestive) and diastolic (congestive) heart failure; I25.10 Atherosclerotic heart disease of native coronary artery without angina pectoris; I11.0 Hypertensive heart disease with heart failure; Q61.3 Polycystic kidney, unspecified; M10.9 Gout, unspecified; I13.2 Hypertensive heart and chronic kidney disease with heart failure and with stage 5 chronic kidney disease, or end stage renal disease; N18.6 End stage renal disease; Z88.5 Allergy status to narcotic agent; Z99.2 Dependence on renal dialysis; Z88.0 Allergy status to penicillin; Z76.82 Awaiting organ transplant status; Z90.49 Acquired absence of other specified parts of digestive tract; Z90.5 Acquired absence of kidney
CPT/HCPCS: 36415; 80048; 85027; 85610; 85730; 93306; 93454; C1760; J7040; Q9957; Q9967; A4216; C1769; C8929

== ENCOUNTER → 2020-08-14 07:53 | Outpatient (CLI) | payer MEDICARE, OTHER, SELFPAY ==
[2020-06-27 08:12] VITALS: BMI 25.9
--- NOTE | 2020-08-14 07:54 | ECHOD_ITS ---
Reason For Study: DYSPNEA Procedure This was a limited 2D transthoracic echocardiogram. Myocardial strain analysis was performed in this exam to aid in the assessment of cardiac function. Exam performed in department. Left Ventricle Normal LV size. Left ventricular systolic function is normal. The estimated ejection fraction is 55 %. No regional wall motion abnormalities noted. Right Ventricle Normal RV size. Normal systolic function. Mitral Valve Normal mitral valve. Tricuspid Valve Normal tricuspid valve. Aortic Valve Trisinus/trileaflet aortic valve. Great Vessels Normal aortic root. Pericardium/Pleural No pericardial effusion. MMode/2D Measurements & Calculations LVIDd: 4.0 cm IVSd: 0.73 cm Ao root diam: 3.0 cm LVIDs: 2.8 cm LVPWd: 0.71 cm RVDd: 2.9 cm FS: 30.9 % LAV(MOD-bp): 20.9 ml LA dimension(2D): 3.0 cm LA A4 area: 8.4 cm2 LAV(MOD-bp) Indexed: 12.9 ml/m2 LAV(MOD-sp2): 21.7 ml LAV(MOD-sp4): 17.4 ml RA A4 area: 9.0 cm2 Doppler Measurements & Calculations TR max mally: 205.1 cm/sec TR max P.8 mmHg Interpretation Summary Normal LV size. Left ventricular systolic function is normal. The estimated ejection fraction is 55 %. Compared to previous study, the left ventricular systolic function has improved.. The global longitudinal strain = -15.9% (abnormal). Ordering Physician: Chinedu Polo Referring Physician: CARSON CLAUDIO Performed By: Princess Funez, SEBAS, RVT
== END ==
PROVIDERS: PCP Family Medicine; Referring Provider Internal Medicine Cardiovascular Disease; Visit Provider Internal Medicine Cardiovascular Disease
DX: I42.8 Other cardiomyopathies (principal); R06.00 Dyspnea, unspecified; R06.02 Shortness of breath
CPT/HCPCS: 93308

== ENCOUNTER → 2020-09-22 08:02 | Outpatient (CLI) | payer MEDICARE, OTHER, SELFPAY ==
[2020-09-04 08:48] VITALS: BMI 27.0
[2020-09-22 09:50] LABS: Absolute Lymphocyte Count 0.14 X10^3/uL (0.83-4.51); Absolute Neutrophil Count 10.1 X10^3/uL (2.0-7.7); Basophil# 0.05 X10^3/uL; Basophil% 0.4 % (0-1); Eosinophil# 0.18 X10^3/uL; Eosinophils% 1.6 % (0-5); Hematocrit 22.4 % (37-47); Hemoglobin 6.8 g/dL (12.0-15.0); Lymphocyte # 0.14 X10^3/ul (0.83-4.51); Lymphocyte % 1.2 % (19-41); Mean Corp Hgb Conc 30.4 g/dL (32-36); Mean Corpuscular Hgb 32.4 pg (27.0-32.0); Mean Corpuscular Volume 106.7 fL (81-99); Mean Platelet Vol. 10.6 fl (6.2-12.0); Monocyte# 0.76 X10^3/uL; Monocyte% 6.7 % (0-10); NRBC Flagged by Analyzer 0 % (0-5); Neutrophil # 10.08 X10^3/uL (2.7-7.7); Neutrophil % 89.1 % (47-70); POSITIVE DIFFERENTIAL YES; Platelet Count 475 K/mm3 (150-450); RBC Distribution Width CV 15.6 % (11.6-14.6); RBC Distribution Width SD 60.9 fl (35.1-43.9); White Blood Count 11.3 K/mm3 (4.4-11.0)
[2020-09-22 09:54] LABS: Differential Indicated SCAN CRITERIA MET
[2020-09-22 10:05] LABS: Protein, Urine (Random) 70.8 mg/dL (<11.9); Protein:Creat Ratio 424 mg/g CRE (0-200)
[2020-09-22 10:13] LABS: AST(SGOT) 16 U/L (15-37); Alanine Aminotransfer ALT/SGPT 30 U/L (13-56); Albumin, Serum 2.8 g/dL (3.2-5.0); Alkaline Phosphatase 159 U/L (45-117); Amylase 225 U/L (25-115); Anion Gap 9 (5-15); BUN 21 mg/dL (7-18); BUN/Creat Ratio 10.1 RATIO (10-20); Calcium,Total 9.6 mg/dL (8.5-10.1); Chloride 109 mmol/L (98-107); Cholesterol 146 mg/dL (200); Creatinine, Serum 2.08 mg/dL (0.55-1.02); EST Glomerular Filtration Rate 26 mL/min (>60); Est Glom Filt Rate - Afr Amer 32 mL/min (>60); Ferritin 1760 ng/mL (8-252); Glucose 102 mg/dL (74-106); High Density Lipoprotein 36 mg/dL; Iron 32 ug/dL (50-170); Iron Binding Capacity,Total 200 ug/dL (250-450); Magnesium 1.7 mg/dL (1.6-2.6); Phosphorus 1.8 mg/dL (2.5-4.9); Potassium 3.9 mmol/L (3.5-5.1); Sodium Level 137 mmol/L (136-145); Triglycerides 191 mg/dL; Uric Acid 6.1 mg/dL (2.6-6.0); Very Low Density Lipoprotein 38 mg/dL (5-40)
[2020-09-22 10:19] LABS: Hypochromasia 2+; Macrocytosis 1+; Platelet Estimate SLT INC (ADEQ)
[2020-09-22 10:36] LABS: Hemoglobin A1c < 3.8 % (3.8-5.6)
[2020-09-25 17:01] LABS: Tacrolimus (FK506) 1.7 ng/mL (2.0-20.0); Transferrin 170 mg/dL (192-364)
== END ==
PROVIDERS: Nurse Practitioner Acute Care; PCP Family Medicine
DX: R79.9 Abnormal finding of blood chemistry, unspecified (principal); D84.9 Immunodeficiency, unspecified; Z94.0 Kidney transplant status; Z48.298 Encounter for aftercare following other organ transplant; Z79.899 Other long term (current) drug therapy
CPT/HCPCS: 36415; 80048; 80061; 80197; 82040; 82150; 82247; 82570; 82728; 83036; 83540; 83550; 83735; 84075; 84100; 84156; 84450; 84460; 84466; 84550; 85025

== ENCOUNTER 2020-09-29 07:08 | Outpatient (RCR) | payer MEDICARE, OTHER, SELFPAY ==
[2020-09-04 08:48] VITALS: BMI 27.0
[2020-09-25 10:09] LABS: Hematocrit 22.8 % (37-47); Hemoglobin 6.9 g/dL (12.0-15.0); Mean Corp Hgb Conc 30.3 g/dL (32-36); Mean Corpuscular Hgb 32.1 pg (27.0-32.0); Platelet Count 646 K/mm3 (150-450); RBC Distribution Width CV 15.4 % (11.6-14.6); RBC Distribution Width SD 59.6 fl (35.1-43.9); Red Blood Count 2.15 M/mm3 (4.2-5.4); White Blood Count 9.7 K/mm3 (4.4-11.0)
[2020-09-25 10:37] LABS: Amylase 189 U/L (25-115); Anion Gap 8 (5-15); BUN 17 mg/dL (7-18); Chloride 112 mmol/L (98-107); Creatinine, Serum 1.76 mg/dL (0.55-1.02); EST Glomerular Filtration Rate 32 mL/min (>60); Est Glom Filt Rate - Afr Amer 38 mL/min (>60); Glucose 110 mg/dL (74-106); Potassium 3.8 mmol/L (3.5-5.1); Sodium Level 139 mmol/L (136-145)
[2020-09-29 07:55] LABS: Tacrolimus (FK506) 2.2 ng/mL (2.0-20.0)
[2020-09-29 10:00] LABS: Hematocrit 31.6 % (37-47); Hemoglobin 9.9 g/dL (12.0-15.0); Mean Corp Hgb Conc 31.3 g/dL (32-36); Mean Corpuscular Hgb 31.8 pg (27.0-32.0); Mean Corpuscular Volume 101.6 fL (81-99); Mean Platelet Vol. 10.3 fl (6.2-12.0); Platelet Count 501 K/mm3 (150-450); RBC Distribution Width CV 15.9 % (11.6-14.6); RBC Distribution Width SD 58.7 fl (35.1-43.9); Red Blood Count 3.11 M/mm3 (4.2-5.4); White Blood Count 6.3 K/mm3 (4.4-11.0)
[2020-09-29 10:17] LABS: AST(SGOT) 15 U/L (15-37); Alanine Aminotransfer ALT/SGPT 22 U/L (13-56); Alkaline Phosphatase 179 U/L (45-117); Amylase 162 U/L (25-115); Anion Gap 10 (5-15); BUN 13 mg/dL (7-18); BUN/Creat Ratio 8.3 RATIO (10-20); Calcium,Total 9.7 mg/dL (8.5-10.1); Chloride 115 mmol/L (98-107); Creatinine, Serum 1.56 mg/dL (0.55-1.02); EST Glomerular Filtration Rate 36 mL/min (>60); Est Glom Filt Rate - Afr Amer 44 mL/min (>60); Glucose 89 mg/dL (74-106); Magnesium 1.7 mg/dL (1.6-2.6); Phosphorus 1.6 mg/dL (2.5-4.9); Potassium 3.8 mmol/L (3.5-5.1); Sodium Level 141 mmol/L (136-145)
[2020-10-01 17:07] LABS: Tacrolimus (FK506) 5.3 ng/mL (2.0-20.0)
== END 2020-09-29 18:00 | disposition home or self-care (01) ==
LOC: MTLAB 07:08
PROVIDERS: PCP Family Medicine; Referring Provider Nurse Practitioner Acute Care; Visit Provider Nurse Practitioner Acute Care
DX: Z48.298 Encounter for aftercare following other organ transplant (principal); D84.9 Immunodeficiency, unspecified; R79.9 Abnormal finding of blood chemistry, unspecified; Z79.899 Other long term (current) drug therapy; Z94.0 Kidney transplant status
CPT/HCPCS: 36415; 80048; 80051; 80197; 82040; 82150; 82247; 82565; 82947; 83735; 84075; 84100; 84450; 84460; 84520; 85027

== ENCOUNTER → 2020-10-02 07:04 | Outpatient (CLI) | payer MEDICARE, OTHER, SELFPAY ==
[2020-09-04 08:48] VITALS: BMI 27.0
== END ==
PROVIDERS: PCP Family Medicine
DX: Z94.0 Kidney transplant status (principal); Z79.899 Other long term (current) drug therapy; R79.9 Abnormal finding of blood chemistry, unspecified; D84.9 Immunodeficiency, unspecified; D50.0 Iron deficiency anemia secondary to blood loss (chronic); R19.7 Diarrhea, unspecified; R68.89 Other general symptoms and signs; Z48.298 Encounter for aftercare following other organ transplant
CPT/HCPCS: 87493

== ENCOUNTER → 2020-10-13 10:34 | Outpatient (CLI) | payer MEDICARE, OTHER, SELFPAY ==
[2020-06-27 08:12] VITALS: BMI 25.9
[2020-09-04 08:48] VITALS: BMI 27.0
--- NOTE | 2020-10-13 12:31 | NEURO ---
NCS and/or EMG Patient Report Ordering Doctor: Raphael Russell DATE OF SERVICE: 10/13/20 Indication: Left lateral forearm sensory loss. Diminished left hand power. History of multiple left upper extremities vascular surgeries (e.g. fistula, graft placement) prior to her kidney transplant. Evaluate for peripheral nerve injury. Findings: Nerve conduction studies were performed in the left upper extremity. The left median motor study recording the abductor pollicis brevis showed a normal amplitude, prolonged distal latency and normal conduction velocity. The left ulnar motor study recording the abductor digiti minimi showed a normal amplitude, normal distal latency and normal conduction velocity. No conduction block or focal slowing was present across the elbow. The left median sensory response recording digit two showed a normal amplitude, latency and conduction velocity. The left ulnar sensory response recording digit five showed a normal amplitude, latency and conduction velocity. The left radial sensory response recording over the extensor snuff box showed a normal amplitude, latency and conduction velocity. The left lateral antebrachial sensory response was absent (scar over stimulation site). Left median-ulnar lumbrical / interosseous motor latencies showed a prolonged median latency compared to the ulnar. Needle EMG of the left upper extremity and cervical paraspinal muscles was performed. No denervation was seen in any muscle. No quiet recording field was present in the lower cervical paraspinals. The motor units in the left abductor pollicis brevis were large amplitude, long duration with reduced recruitment. All other examined muscles revealed normal motor unit morphology, activation and recruitment patterns. Impression: This is an abnormal study. There is electrophysiologic evidence of a mild median neuropathy across the left wrist. These findings would be compatible with the clinical diagnosis of carpal tunnel syndrome. In addition, a left lateral antebrachial cutaneous neuropathy cannot be excluded by this study. No response was obtained during nerve conduction testing, however, a scar over the stimulation site may have prevented supramaximal stimulation. There is no electrophysiologic evidence of a superimposed cervical radiculopathy or other entrapment neuropathy in the left upper extremity. Wolf Gamboa D.O.
== END ==
PROVIDERS: PCP Family Medicine; Referring Provider Family Medicine; Visit Provider Family Medicine
DX: M62.81 Muscle weakness (generalized) (principal); M79.602 Pain in left arm
CPT/HCPCS: 36415; 80048; 80197; 82040; 82247; 83735; 84075; 84100; 84450; 84460; 85027; 95886; 95910

== ENCOUNTER 2020-10-30 07:07 | Outpatient (RCR) | payer MEDICARE, OTHER, SELFPAY ==
[2020-09-04 08:48] VITALS: BMI 27.0
[2020-10-06 09:54] LABS: Hematocrit 32.7 % (37-47); Hemoglobin 10.1 g/dL (12.0-15.0); Mean Corp Hgb Conc 30.9 g/dL (32-36); Mean Corpuscular Hgb 31.7 pg (27.0-32.0); Mean Corpuscular Volume 102.5 fL (81-99); Mean Platelet Vol. 10.4 fl (6.2-12.0); Platelet Count 448 K/mm3 (150-450); RBC Distribution Width CV 16.1 % (11.6-14.6); RBC Distribution Width SD 60.5 fl (35.1-43.9); Red Blood Count 3.19 M/mm3 (4.2-5.4); White Blood Count 5.5 K/mm3 (4.4-11.0)
[2020-10-06 10:20] LABS: AST(SGOT) 16 U/L (15-37); Alanine Aminotransfer ALT/SGPT 18 U/L (13-56); Albumin, Serum 3.1 g/dL (3.2-5.0); Alkaline Phosphatase 210 U/L (45-117); Amylase 107 U/L (25-115); Anion Gap 10 (5-15); BUN 21 mg/dL (7-18); BUN/Creat Ratio 14.1 RATIO (10-20); Calcium,Total 9.6 mg/dL (8.5-10.1); Chloride 116 mmol/L (98-107); Cholesterol 117 mg/dL (200); Creatinine, Serum 1.49 mg/dL (0.55-1.02); EST Glomerular Filtration Rate 38 mL/min (>60); Est Glom Filt Rate - Afr Amer 46 mL/min (>60); Glucose 102 mg/dL (74-106); Magnesium 1.5 mg/dL (1.6-2.6); Phosphorus 1.6 mg/dL (2.5-4.9); Potassium 3.6 mmol/L (3.5-5.1); Sodium Level 144 mmol/L (136-145); Triglycerides 170 mg/dL
[2020-10-09 10:22] LABS: Hematocrit 31.8 % (37-47); Hemoglobin 9.9 g/dL (12.0-15.0); Mean Corp Hgb Conc 31.1 g/dL (32-36); Mean Corpuscular Hgb 31.6 pg (27.0-32.0); Mean Corpuscular Volume 101.6 fL (81-99); Mean Platelet Vol. 11.3 fl (6.2-12.0); Platelet Count 370 K/mm3 (150-450); RBC Distribution Width CV 16.4 % (11.6-14.6); RBC Distribution Width SD 61.3 fl (35.1-43.9); Red Blood Count 3.13 M/mm3 (4.2-5.4); White Blood Count 5.7 K/mm3 (4.4-11.0)
[2020-10-09 10:47] LABS: Amylase 63 U/L (25-115); Anion Gap 9 (5-15); BUN 16 mg/dL (7-18); BUN/Creat Ratio 12.4 RATIO (10-20); Calcium,Total 9.6 mg/dL (8.5-10.1); Chloride 117 mmol/L (98-107); Creatinine, Serum 1.29 mg/dL (0.55-1.02); EST Glomerular Filtration Rate 45 mL/min (>60); Est Glom Filt Rate - Afr Amer 55 mL/min (>60); Glucose 88 mg/dL (74-106); Potassium 3.9 mmol/L (3.5-5.1); Sodium Level 143 mmol/L (136-145)
[2020-10-09 11:05] LABS: Tacrolimus (FK506) 9.5 ng/mL (2.0-20.0)
[2020-10-13 10:00] LABS: Hematocrit 30.7 % (37-47); Hemoglobin 9.6 g/dL (12.0-15.0); Mean Corp Hgb Conc 31.3 g/dL (32-36); Mean Corpuscular Hgb 31.1 pg (27.0-32.0); Mean Corpuscular Volume 99.4 fL (81-99); Mean Platelet Vol. 10.6 fl (6.2-12.0); Platelet Count 350 K/mm3 (150-450); RBC Distribution Width CV 15.9 % (11.6-14.6); RBC Distribution Width SD 58.5 fl (35.1-43.9); Red Blood Count 3.09 M/mm3 (4.2-5.4)
[2020-10-13 11:13] LABS: AST(SGOT) 9 U/L (15-37); Alanine Aminotransfer ALT/SGPT 15 U/L (13-56); Albumin, Serum 3.1 g/dL (3.2-5.0); Alkaline Phosphatase 180 U/L (45-117); Anion Gap 6 (5-15); BUN 14 mg/dL (7-18); BUN/Creat Ratio 15.7 RATIO (10-20); Calcium,Total 9.7 mg/dL (8.5-10.1); Chloride 116 mmol/L (98-107); Creatinine, Serum 0.89 mg/dL (0.55-1.02); EST Glomerular Filtration Rate 69 mL/min (>60); Est Glom Filt Rate - Afr Amer 84 mL/min (>60); Glucose 102 mg/dL (74-106); Magnesium 1.3 mg/dL (1.6-2.6); Phosphorus 1.5 mg/dL (2.5-4.9); Potassium 3.7 mmol/L (3.5-5.1); Sodium Level 143 mmol/L (136-145)
[2020-10-15 12:59] LABS: Tacrolimus (FK506) 4.5 ng/mL (2.0-20.0)
[2020-10-20 10:09] LABS: Hematocrit 30.5 % (37-47); Hemoglobin 9.4 g/dL (12.0-15.0); Mean Corp Hgb Conc 30.8 g/dL (32-36); Mean Corpuscular Hgb 31.3 pg (27.0-32.0); Mean Corpuscular Volume 101.7 fL (81-99); Mean Platelet Vol. 10.8 fl (6.2-12.0); Platelet Count 272 K/mm3 (150-450); RBC Distribution Width CV 15.2 % (11.6-14.6); RBC Distribution Width SD 57.1 fl (35.1-43.9); White Blood Count 6.5 K/mm3 (4.4-11.0)
[2020-10-20 10:52] LABS: AST(SGOT) 7 U/L (15-37); Alanine Aminotransfer ALT/SGPT 14 U/L (13-56); Alkaline Phosphatase 135 U/L (45-117); Anion Gap 5 (5-15); BUN 5 mg/dL (7-18); BUN/Creat Ratio 4.3 RATIO (10-20); Chloride 116 mmol/L (98-107); Cholesterol 125 mg/dL (200); Creatinine, Serum 1.17 mg/dL (0.55-1.02); EST Glomerular Filtration Rate 51 mL/min (>60); Est Glom Filt Rate - Afr Amer 61 mL/min (>60); Ferritin 1720 ng/mL (8-252); Glucose 109 mg/dL (74-106); High Density Lipoprotein 58 mg/dL; Iron 51 ug/dL (50-170); Iron Binding Capacity,Total 144 ug/dL (250-450); Magnesium 1.1 mg/dL (1.6-2.6); PERCENT IRON SATURATION 35.4 % (15.0-55.0); Potassium 4.4 mmol/L (3.5-5.1); Sodium Level 143 mmol/L (136-145); Triglycerides 96 mg/dL; Uric Acid 3.4 mg/dL (2.6-6.0); Very Low Density Lipoprotein 19 mg/dL (5-40)
[2020-10-20 14:16] LABS: Phosphorus 2.1 mg/dL (2.5-4.9)
[2020-10-22 08:48] LABS: Tacrolimus (FK506) 6.2 ng/mL (2.0-20.0); Transferrin 120 mg/dL (192-364)
[2020-10-23 10:06] LABS: Hematocrit 33.8 % (37-47); Hemoglobin 10.2 g/dL (12.0-15.0); Mean Corp Hgb Conc 30.2 g/dL (32-36); Mean Corpuscular Hgb 30.7 pg (27.0-32.0); Mean Corpuscular Volume 101.8 fL (81-99); Mean Platelet Vol. 11.3 fl (6.2-12.0); Platelet Count 275 K/mm3 (150-450); RBC Distribution Width CV 14.6 % (11.6-14.6); RBC Distribution Width SD 54.5 fl (35.1-43.9); Red Blood Count 3.32 M/mm3 (4.2-5.4); White Blood Count 6.1 K/mm3 (4.4-11.0)
[2020-10-23 10:33] LABS: Anion Gap 7 (5-15); BUN 9 mg/dL (7-18); BUN/Creat Ratio 7.6 RATIO (10-20); Chloride 114 mmol/L (98-107); Creatinine, Serum 1.19 mg/dL (0.55-1.02); EST Glomerular Filtration Rate 50 mL/min (>60); Est Glom Filt Rate - Afr Amer 60 mL/min (>60); Glucose 89 mg/dL (74-106); Potassium 4.8 mmol/L (3.5-5.1); Sodium Level 140 mmol/L (136-145)
[2020-10-26 10:53] LABS: Tacrolimus (FK506) 3.9 ng/mL (2.0-20.0)
[2020-10-27 10:38] LABS: Hematocrit 32.2 % (37-47); Hemoglobin 10.2 g/dL (12.0-15.0); Mean Corp Hgb Conc 31.7 g/dL (32-36); Mean Corpuscular Hgb 30.9 pg (27.0-32.0); Mean Corpuscular Volume 97.6 fL (81-99); Mean Platelet Vol. 10.8 fl (6.2-12.0); Platelet Count 359 K/mm3 (150-450); RBC Distribution Width CV 14.6 % (11.6-14.6); RBC Distribution Width SD 51.7 fl (35.1-43.9); White Blood Count 5.8 K/mm3 (4.4-11.0)
[2020-10-27 10:54] LABS: AST(SGOT) 13 U/L (15-37); Alanine Aminotransfer ALT/SGPT 17 U/L (13-56); Alkaline Phosphatase 142 U/L (45-117); Anion Gap 11 (5-15); BUN 12 mg/dL (7-18); BUN/Creat Ratio 10.7 RATIO (10-20); Chloride 109 mmol/L (98-107); Creatinine, Serum 1.12 mg/dL (0.55-1.02); EST Glomerular Filtration Rate 53 mL/min (>60); Est Glom Filt Rate - Afr Amer 64 mL/min (>60); Glucose 107 mg/dL (74-106); Magnesium 1.4 mg/dL (1.6-2.6); Phosphorus 1.7 mg/dL (2.5-4.9); Potassium 4.3 mmol/L (3.5-5.1); Sodium Level 142 mmol/L (136-145)
[2020-10-27 15:14] LABS: Albumin, Serum 3.5 g/dL (3.2-5.0)
[2020-10-29 13:31] LABS: Tacrolimus (FK506) 7.5 ng/mL (2.0-20.0)
[2020-10-30 10:15] LABS: Hematocrit 31.5 % (37-47); Hemoglobin 9.8 g/dL (12.0-15.0); Mean Corp Hgb Conc 31.1 g/dL (32-36); Mean Corpuscular Hgb 31.3 pg (27.0-32.0); Mean Corpuscular Volume 100.6 fL (81-99); Mean Platelet Vol. 11.5 fl (6.2-12.0); Platelet Count 104 K/mm3 (150-450); RBC Distribution Width CV 14.6 % (11.6-14.6); RBC Distribution Width SD 53.1 fl (35.1-43.9); Red Blood Count 3.13 M/mm3 (4.2-5.4); White Blood Count 5.6 K/mm3 (4.4-11.0)
[2020-10-30 11:08] LABS: Amylase 91 U/L (25-115); Anion Gap 7 (5-15); BUN 16 mg/dL (7-18); BUN/Creat Ratio 13.6 RATIO (10-20); Calcium,Total 9.9 mg/dL (8.5-10.1); Chloride 113 mmol/L (98-107); Creatinine, Serum 1.18 mg/dL (0.55-1.02); EST Glomerular Filtration Rate 50 mL/min (>60); Est Glom Filt Rate - Afr Amer 61 mL/min (>60); Glucose 100 mg/dL (74-106); Potassium 4.7 mmol/L (3.5-5.1); Sodium Level 140 mmol/L (136-145)
[2020-11-01 15:15] LABS: Tacrolimus (FK506) 5.9 ng/mL (2.0-20.0)
== END 2020-10-30 18:00 | disposition home or self-care (01) ==
LOC: MTLAB 07:07
PROVIDERS: PCP Family Medicine; Referring Provider Nurse Practitioner Acute Care; Visit Provider Nurse Practitioner Acute Care
DX: Z94.0 Kidney transplant status (principal); Z48.298 Encounter for aftercare following other organ transplant; D84.9 Immunodeficiency, unspecified; R79.9 Abnormal finding of blood chemistry, unspecified; Z79.899 Other long term (current) drug therapy
CPT/HCPCS: 36415; 80048; 80061; 80197; 82040; 82150; 82247; 82465; 82728; 83540; 83550; 83735; 84075; 84100; 84450; 84460; 84466; 84478; 84550; 85027

== ENCOUNTER 2020-12-01 07:03 | Outpatient (RCR) | payer MEDICARE, OTHER, SELFPAY ==
[2020-09-04 08:48] VITALS: BMI 27.0
[2020-11-04 09:44] LABS: Hematocrit 31.1 % (37-47); Hemoglobin 9.8 g/dL (12.0-15.0); Mean Corp Hgb Conc 31.5 g/dL (32-36); Mean Corpuscular Hgb 31.1 pg (27.0-32.0); Mean Corpuscular Volume 98.7 fL (81-99); Mean Platelet Vol. 10.2 fl (6.2-12.0); Platelet Count 333 K/mm3 (150-450); RBC Distribution Width CV 14.1 % (11.6-14.6); RBC Distribution Width SD 51.3 fl (35.1-43.9); Red Blood Count 3.15 M/mm3 (4.2-5.4); White Blood Count 5.2 K/mm3 (4.4-11.0)
[2020-11-04 10:02] LABS: AST(SGOT) 11 U/L (15-37); Alanine Aminotransfer ALT/SGPT 17 U/L (13-56); Albumin, Serum 3.2 g/dL (3.2-5.0); Alkaline Phosphatase 132 U/L (45-117); Anion Gap 6 (5-15); BUN 15 mg/dL (7-18); BUN/Creat Ratio 12.8 RATIO (10-20); Chloride 114 mmol/L (98-107); Cholesterol 142 mg/dL (200); Creatinine, Serum 1.17 mg/dL (0.55-1.02); EST Glomerular Filtration Rate 51 mL/min (>60); Est Glom Filt Rate - Afr Amer 61 mL/min (>60); Glucose 93 mg/dL (74-106); Magnesium 1.4 mg/dL (1.6-2.6); Potassium 4.6 mmol/L (3.5-5.1); Sodium Level 142 mmol/L (136-145); Triglycerides 103 mg/dL
[2020-11-05 20:14] LABS: Tacrolimus (FK506) 7.3 ng/mL (2.0-20.0)
[2020-11-06 10:27] LABS: Hematocrit 31.2 % (37-47); Hemoglobin 9.6 g/dL (12.0-15.0); Mean Corp Hgb Conc 30.8 g/dL (32-36); Mean Corpuscular Volume 100.6 fL (81-99); Mean Platelet Vol. 10.7 fl (6.2-12.0); Platelet Count 337 K/mm3 (150-450); RBC Distribution Width CV 14.2 % (11.6-14.6); RBC Distribution Width SD 51.8 fl (35.1-43.9); White Blood Count 5.5 K/mm3 (4.4-11.0)
[2020-11-06 10:33] LABS: Anion Gap 8 (5-15); BUN 16 mg/dL (7-18); Chloride 113 mmol/L (98-107); EST Glomerular Filtration Rate 49 mL/min (>60); Est Glom Filt Rate - Afr Amer 59 mL/min (>60); Glucose 96 mg/dL (74-106); Potassium 4.6 mmol/L (3.5-5.1); Sodium Level 142 mmol/L (136-145)
[2020-11-09 07:48] LABS: Tacrolimus (FK506) 6.3 ng/mL (2.0-20.0)
[2020-11-10 10:17] LABS: Hematocrit 31.4 % (37-47); Hemoglobin 9.9 g/dL (12.0-15.0); Mean Corp Hgb Conc 31.5 g/dL (32-36); Mean Corpuscular Hgb 30.7 pg (27.0-32.0); Mean Corpuscular Volume 97.2 fL (81-99); Mean Platelet Vol. 10.9 fl (6.2-12.0); Platelet Count 284 K/mm3 (150-450); RBC Distribution Width CV 14.1 % (11.6-14.6); RBC Distribution Width SD 50.3 fl (35.1-43.9); Red Blood Count 3.23 M/mm3 (4.2-5.4); White Blood Count 6.3 K/mm3 (4.4-11.0)
[2020-11-10 10:27] LABS: AST(SGOT) 16 U/L (15-37); Alanine Aminotransfer ALT/SGPT 21 U/L (13-56); Albumin, Serum 3.4 g/dL (3.2-5.0); Alkaline Phosphatase 152 U/L (45-117); Anion Gap 10 (5-15); BUN 17 mg/dL (7-18); BUN/Creat Ratio 13.8 RATIO (10-20); Calcium,Total 10.2 mg/dL (8.5-10.1); Chloride 110 mmol/L (98-107); Cholesterol 164 mg/dL (200); Creatinine, Serum 1.23 mg/dL (0.55-1.02); EST Glomerular Filtration Rate 48 mL/min (>60); Est Glom Filt Rate - Afr Amer 58 mL/min (>60); Glucose 104 mg/dL (74-106); Magnesium 1.4 mg/dL (1.6-2.6); Phosphorus 1.9 mg/dL (2.5-4.9); Potassium 4.4 mmol/L (3.5-5.1); Sodium Level 141 mmol/L (136-145); Triglycerides 97 mg/dL
[2020-11-12 13:10] LABS: Tacrolimus (FK506) 9.3 ng/mL (2.0-20.0)
[2020-11-13 10:01] LABS: Hematocrit 29.9 % (37-47); Hemoglobin 9.4 g/dL (12.0-15.0); Mean Corp Hgb Conc 31.4 g/dL (32-36); Mean Corpuscular Hgb 30.9 pg (27.0-32.0); Mean Corpuscular Volume 98.4 fL (81-99); Mean Platelet Vol. 10.5 fl (6.2-12.0); Platelet Count 327 K/mm3 (150-450); RBC Distribution Width CV 14.2 % (11.6-14.6); RBC Distribution Width SD 51.6 fl (35.1-43.9); Red Blood Count 3.04 M/mm3 (4.2-5.4)
[2020-11-13 10:17] LABS: Anion Gap 1 (5-15); BUN 17 mg/dL (7-18); Chloride 114 mmol/L (98-107); EST Glomerular Filtration Rate 45 mL/min (>60); Est Glom Filt Rate - Afr Amer 54 mL/min (>60); Glucose 101 mg/dL (74-106); Potassium 4.7 mmol/L (3.5-5.1); Sodium Level 140 mmol/L (136-145)
[2020-11-15 20:24] LABS: Tacrolimus (FK506) 7.7 ng/mL (2.0-20.0)
[2020-11-17 10:08] LABS: Hematocrit 31.7 % (37-47); Hemoglobin 9.8 g/dL (12.0-15.0); Mean Corp Hgb Conc 30.9 g/dL (32-36); Mean Corpuscular Hgb 30.3 pg (27.0-32.0); Mean Corpuscular Volume 98.1 fL (81-99); Mean Platelet Vol. 9.9 fl (6.2-12.0); Platelet Count 371 K/mm3 (150-450); RBC Distribution Width CV 13.9 % (11.6-14.6); RBC Distribution Width SD 50.4 fl (35.1-43.9); Red Blood Count 3.23 M/mm3 (4.2-5.4); White Blood Count 6.6 K/mm3 (4.4-11.0)
[2020-11-17 10:25] LABS: AST(SGOT) 15 U/L (15-37); Alanine Aminotransfer ALT/SGPT 26 U/L (13-56); Albumin, Serum 3.5 g/dL (3.2-5.0); Alkaline Phosphatase 152 U/L (45-117); Anion Gap 9 (5-15); BUN 19 mg/dL (7-18); BUN/Creat Ratio 12.8 RATIO (10-20); Calcium,Total 10.4 mg/dL (8.5-10.1); Chloride 111 mmol/L (98-107); Cholesterol 177 mg/dL (200); Creatinine, Serum 1.49 mg/dL (0.55-1.02); EST Glomerular Filtration Rate 38 mL/min (>60); Est Glom Filt Rate - Afr Amer 46 mL/min (>60); Ferritin 1951 ng/mL (8-252); Glucose 95 mg/dL (74-106); High Density Lipoprotein 82 mg/dL; Iron 106 ug/dL (50-170); Iron Binding Capacity,Total 224 ug/dL (250-450); Magnesium 1.5 mg/dL (1.6-2.6); PERCENT IRON SATURATION 47.3 % (15.0-55.0); Sodium Level 141 mmol/L (136-145); Triglycerides 119 mg/dL; Uric Acid 4.7 mg/dL (2.6-6.0); Very Low Density Lipoprotein 24 mg/dL (5-40)
[2020-11-20 10:22] LABS: Hematocrit 32.4 % (37-47); Hemoglobin 9.9 g/dL (12.0-15.0); Mean Corp Hgb Conc 30.6 g/dL (32-36); Mean Corpuscular Hgb 30.2 pg (27.0-32.0); Mean Corpuscular Volume 98.8 fL (81-99); Mean Platelet Vol. 10.3 fl (6.2-12.0); Platelet Count 398 K/mm3 (150-450); RBC Distribution Width CV 13.8 % (11.6-14.6); RBC Distribution Width SD 49.7 fl (35.1-43.9); Red Blood Count 3.28 M/mm3 (4.2-5.4); White Blood Count 6.3 K/mm3 (4.4-11.0)
[2020-11-20 11:33] LABS: Anion Gap 6 (5-15); BUN 21 mg/dL (7-18); BUN/Creat Ratio 14.5 RATIO (10-20); Calcium,Total 10.5 mg/dL (8.5-10.1); Chloride 113 mmol/L (98-107); Cholesterol 174 mg/dL (200); Creatinine, Serum 1.45 mg/dL (0.55-1.02); EST Glomerular Filtration Rate 39 mL/min (>60); Est Glom Filt Rate - Afr Amer 48 mL/min (>60); Glucose 88 mg/dL (74-106); Sodium Level 140 mmol/L (136-145); Triglycerides 118 mg/dL
[2020-11-20 13:04] LABS: Tacrolimus (FK506) 10.4 ng/mL (2.0-20.0); Transferrin 177 mg/dL (192-364)
[2020-11-20 16:13] LABS: Amylase 108 U/L (25-115)
[2020-11-23 14:16] LABS: Tacrolimus (FK506) 9.3 ng/mL (2.0-20.0)
[2020-11-24 10:03] LABS: Hematocrit 32.5 % (37-47); Hemoglobin 9.9 g/dL (12.0-15.0); Mean Corp Hgb Conc 30.5 g/dL (32-36); Mean Corpuscular Hgb 30.2 pg (27.0-32.0); Mean Corpuscular Volume 99.1 fL (81-99); Platelet Count 398 K/mm3 (150-450); RBC Distribution Width CV 13.5 % (11.6-14.6); RBC Distribution Width SD 49.6 fl (35.1-43.9); Red Blood Count 3.28 M/mm3 (4.2-5.4); White Blood Count 6.5 K/mm3 (4.4-11.0)
[2020-11-24 10:46] LABS: AST(SGOT) 13 U/L (15-37); Alanine Aminotransfer ALT/SGPT 22 U/L (13-56); Albumin, Serum 3.7 g/dL (3.2-5.0); Alkaline Phosphatase 164 U/L (45-117); Anion Gap 9 (5-15); BUN 19 mg/dL (7-18); BUN/Creat Ratio 13.2 RATIO (10-20); Calcium,Total 10.7 mg/dL (8.5-10.1); Chloride 111 mmol/L (98-107); Creatinine, Serum 1.44 mg/dL (0.55-1.02); EST Glomerular Filtration Rate 40 mL/min (>60); Est Glom Filt Rate - Afr Amer 48 mL/min (>60); Glucose 100 mg/dL (74-106); Magnesium 1.6 mg/dL (1.6-2.6); Phosphorus 2.2 mg/dL (2.5-4.9); Potassium 5.6 mmol/L (3.5-5.1); Sodium Level 141 mmol/L (136-145)
[2020-11-26 10:31] LABS: Hematocrit 31.4 % (37-47); Hemoglobin 9.6 g/dL (12.0-15.0); Mean Corp Hgb Conc 30.6 g/dL (32-36); Mean Corpuscular Hgb 30.6 pg (27.0-32.0); Mean Platelet Vol. 11.6 fl (6.2-12.0); Platelet Count 269 K/mm3 (150-450); RBC Distribution Width CV 13.7 % (11.6-14.6); RBC Distribution Width SD 49.8 fl (35.1-43.9); Red Blood Count 3.14 M/mm3 (4.2-5.4); White Blood Count 6.3 K/mm3 (4.4-11.0)
[2020-11-26 10:33] LABS: Anion Gap 3 (5-15); BUN 22 mg/dL (7-18); Chloride 115 mmol/L (98-107); Creatinine, Serum 1.52 mg/dL (0.55-1.02); EST Glomerular Filtration Rate 37 mL/min (>60); Est Glom Filt Rate - Afr Amer 45 mL/min (>60); Glucose 89 mg/dL (74-106); Potassium 5.1 mmol/L (3.5-5.1); Sodium Level 139 mmol/L (136-145)
[2020-11-26 18:34] LABS: Tacrolimus (FK506) 10.1 ng/mL (2.0-20.0)
[2020-11-29 10:12] LABS: Tacrolimus (FK506) 9.6 ng/mL (2.0-20.0)
[2020-12-01 09:49] LABS: Hematocrit 29.9 % (37-47); Hemoglobin 9.3 g/dL (12.0-15.0); Mean Corp Hgb Conc 31.1 g/dL (32-36); Mean Corpuscular Hgb 30.5 pg (27.0-32.0); Mean Platelet Vol. 9.8 fl (6.2-12.0); Platelet Count 366 K/mm3 (150-450); RBC Distribution Width CV 13.7 % (11.6-14.6); Red Blood Count 3.05 M/mm3 (4.2-5.4); White Blood Count 5.7 K/mm3 (4.4-11.0)
[2020-12-01 10:57] LABS: AST(SGOT) 13 U/L (15-37); Alanine Aminotransfer ALT/SGPT 14 U/L (13-56); Albumin, Serum 3.6 g/dL (3.2-5.0); Alkaline Phosphatase 151 U/L (45-117); Anion Gap 9 (5-15); BUN 20 mg/dL (7-18); BUN/Creat Ratio 14.3 RATIO (10-20); Calcium,Total 10.4 mg/dL (8.5-10.1); Chloride 110 mmol/L (98-107); Cholesterol 171 mg/dL (200); EST Glomerular Filtration Rate 41 mL/min (>60); Est Glom Filt Rate - Afr Amer 50 mL/min (>60); Glucose 99 mg/dL (74-106); Magnesium 1.3 mg/dL (1.6-2.6); Phosphorus 2.3 mg/dL (2.5-4.9); Potassium 5.2 mmol/L (3.5-5.1); Sodium Level 139 mmol/L (136-145); Triglycerides 77 mg/dL
[2020-12-03 10:08] LABS: Tacrolimus (FK506) 4.9 ng/mL (2.0-20.0)
== END 2020-12-01 18:00 | disposition home or self-care (01) ==
LOC: MTLAB 07:03
PROVIDERS: PCP Family Medicine; Referring Provider Nurse Practitioner Acute Care; Visit Provider Nurse Practitioner Acute Care
DX: Z48.298 Encounter for aftercare following other organ transplant (principal); D84.9 Immunodeficiency, unspecified; R79.9 Abnormal finding of blood chemistry, unspecified; R68.89 Other general symptoms and signs; Z94.0 Kidney transplant status; Z79.899 Other long term (current) drug therapy; D50.0 Iron deficiency anemia secondary to blood loss (chronic)
CPT/HCPCS: 36415; 80048; 80051; 80061; 80197; 82040; 82150; 82247; 82465; 82565; 82728; 82947; 83540; 83550; 83735; 84075; 84100; 84450; 84460; 84466; 84478; 84520; 84550; 85027

== ENCOUNTER 2020-12-04 08:30 | Outpatient (RCR) | payer MEDICARE, OTHER, SELFPAY ==
[2020-09-04 08:48] VITALS: BMI 27.0
--- NOTE | 2020-10-30 10:32 | HP.OTEVAL ---
Patient's Visit Information GIUSEPPE XAVIER is a 59 year old F, referred to Occupational Therapy by Dr. Raphael Russell MD, with a diagnosis of left CTS. Date of Evaluation: 10/30/20 Occupational Therapist: Cristine Troy, SARINAR/Silas, CHT - Subjective This 59 year old female was seen for OT eval with dx of CTS of left UE. pt states she has had issues with numbness/tingling for about a year and a half and weakness started about 10months ago -pt is left handed. pt has fistula in left UE and has noted some swelling around the fistula graft. pt did get kidney 2020. PT would like to know what she can do for the tingling/numbness and her left UE weakness. 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 pt will demo a increase in left MMT to 4+/5 to increase pts ind with carry and picking up objects ind. by d/c. pt will demo a increase in pinch strength by 4# or greater to increase ind. with ADLs and IADLs Goal:: pt will report a reduction in tingling of left forearm by 50% or more indicating a reduction in nerve entrapment by d.c - Rehabilitation General Assessment: pt demo with weakness of left UE , facility maintenance technician and pinch limiting her ind. with ADLs and IADLs. pt would benefit from skilled OT services 1-2x week for 4 weeks. Today therapist initiated nerve glides. Therapy will progress pt with PRE as she rock. pt demo understanding and agree to POC. Rehabilitation Potential: Good - Anticipated Interventions A/AAROM/PROM, Strengthening, Triggerpoint Release, Modalities, Education re Diagnosis - Visit Plan Frequency: 1-2x /Week Duration: 4 Weeks TEXT: Thank you for the opportunity to evaluate your patient. For Medicare and Medicare HMO plans, please review the plan of care and approve it. It will need to be FAXED BACK to us at [phone] for Medicare purposes. Please let me know if there are questions or concerns regarding this plan of care. Physician Signature: Date:
--- NOTE | 2020-11-05 11:11 | HP.PTEVAL_ITS ---
Patient's Visit Information GIUSEPPE XAVIER is a 59 year old F referred to Physical Therapy by Dr. Raphael Russell MD with a diagnosis of Left Knee Osteoarthritis. Date of Evaluation: 10/30/20 Physical Therapist: Ish Porter DPT - Visit Plan Frequency: 2x /Week Duration: 4 Weeks Plan: Left hamstring, quadriceps, and bilateral glute med/min/max strengthening. Work on single leg balance if pt. can tolerate this and use modalities to decrease her pain. The pt. plans to bring in her knee brace to see if it is fitting correctly. - Subjective The pt. is here today for pain in her L knee, which has been occurring for awhile and describes her pain as sharp and stabbing. The pt. reports that her doctor told her that she does have knee osteoarthritis and believes this is what is causing her pain. The pt. would like to stay away from getting a knee replacement and prefers to try physical therapy and knee bracing before considering surgery. She has not had PT in the past. The pt. states that her pain is a 0/10 and can get up to a 8-9/10 and worsens with walking for long periods of time, sleeping on her left side at night, extending the knee, ascending/descending stairs, and getting up in the morning. The pt. experiences the knee giving out while going down stairs with her right leg. She does not exercise and is not working, due to being on dialysis for 9 years. The pt. recently got a kidney transplant on September 11 and states that she feels much better since then. For pain relief, the pt. does not ice, but has been taking Voltaren, which was prescribed by her referring doctor. She is also using an over the counter knee brace, but states it does not fit correctly and will bring it in next visit. - Pain Left Knee Pain Intensity (Out of 10): 0 Pain Intensity Range: 9 - Objective Posture: minimal forward head, rounded shoulders. Pt. crosses her left leg over her right in sitting and does not extend the left knee completely while standing. Observation: Pt. could perform a DL squat and exhibited moderate weakness on the left LE. The pt. had minimal valgus of the left knee, but was able to correct this with cueing. The pt. was able to stand on the R LE for 9sec and the L LE for 7sec without losing her balance. ROM: knee flexion R 130deg, L 136deg, knee extension R 5deg from 0deg, L 2deg hyperextension. MMT: hip flexion bilat 4+/5, knee extension R 5/5, L 3+/5, knee flexion R 5/5, L 4/5, dorsiflexion/inversion bilat 5/5, eversion bilat 5/5, hip abduction bilat 4/5, hip extension bilat 4/5 - Goals Goal 1:: LTG: The pt. will be independent and complaint with her HEP. Goal Time Frame: 2-4 Weeks Goal 2:: LTG: The pt. will will be able to walk a half mile with pain less than a 2/10. Goal 3:: LTG: The pt. will be able to increase her bilateral single leg stance time by 15 seconds. Goal Time Frame: 4-6 Weeks Goal 4:: LTG: The pt. will be able to extend her left knee to 0deg without reporting pain. Goal Time Frame: 2-4 Weeks Goal 5:: LTG: The pt. will increase her L quadriceps and hamstring musculature by 1-2 muscle grades, so she can feel more comfortable going up/down a flight of stairs. Goal Time Frame: 4-6 Weeks - Rehabilitation Potential Physical Therapy Diagnosis: The pt. is a 59 yo female who presents to the clinic with left knee pain that has been progressively getting worse. Her symptoms are consistent with left knee osteoarthritis, due to the pain being worse in the morning, pain with activity, and pain while sleeping. The pt. does exhibit limitations in full knee extension, weak quadriceps and hamstring musculature, and weakness while performing stairs or while sitting in a chair. The pt. needs PT to address her impairments and limitations, so she can walk her dogs, perform all ADL's, and walk in the community without pain. Rehabilitation Potential: Good - Anticipated Interventions Patient/Client Instruction: Educate patient on: Condition, Plan of Care For the Purpose of:: To decrease pain, To increase ROM, To improve muscle performance and motor function, To improve ability to perform ADL's, To increase flexibility/ROM, To improve balance, To improve safety with gait, To assume or resume ADL's, To improve tolerance to ADL's Therapeutic Exercise to Include: Strength training, Balance training, Body mechanics, Flexibilty training, Passive ROM, Active ROM For the Purpose of:: To decrease pain, To increase ROM, To improve muscle performance and motor function, To improve ability to perform ADL's, To increase tolerance to activity/condition/position, To improve ability of physical actions for home/community/work/leisure, To increase flexibility/ROM, To improve endurance, To improve balance, To improve tolerance to ADL's Manual Therapy Techniques to Include: Mobilization, Passive ROM For the Purpose of:: To decrease pain, To decrease swelling/inflammation, To increase ROM, To improve muscle performance and motor function, To decrease soft tissue restriction, To increase flexibility/ROM, To improve tolerance to ADL's Functional electric stimulation: Yes TENS: Yes Cryotherapy (ice pack, ice massage): Yes Thermo therapy (hot pack): Yes Ultrasound (thermal/non thermal): Yes For the Purpose of:: To decrease pain, To decrease swelling/inflammation, To increase ROM, To improve muscle performance and motor function, To improve ability to perform ADL's, To increase tolerance to activity/condition/position, To improve health of tissue, To increase flexibility/ROM, To improve tolerance to ADL's Thank you for the opportunity to evaluate your patient. For Medicare and Medicare HMO plans, please review the plan of care and approve it. It will need to be FAXED BACK to us at [phone] for Medicare purposes. For Medicare only, by signing this I certify the plan of care. Please let me know if there are questions or concerns regarding this plan of care. Physician Signature: Date:
--- NOTE | 2020-12-04 08:54 | HP.OTDCSUM ---
It has been my pleasure to treat GIUSEPPE XAVIER under orders from Dr. Raphael Russell MD, for the diagnosis of left CTS for a total of 9 visit(s). Please see the following information for a summary of their discharge status. % Improvement: 75 Objective/Function: pt demo with a left crop insurance claims adjuster at 43# a increase from 20# right 35#. left lateral pinch 7# increase from 2#. left tripod pinch 4# Patient Goals: Regain Strength, Decrease Tingling/Numbness Goal:: pt will demo a increase in left crop insurance claims adjuster strength by 15# or greater to increase pts ind with ADLS and IADLS. pt will demo a increase in left MMT to 4+/5 to increase pts ind with carry and picking up objects ind. by d/c. pt will demo a increase in pinch strength by 4# or greater to increase ind. with ADLs and IADLs Goal:: pt will report a reduction in tingling of left forearm by 50% or more indicating a reduction in nerve entrapment by d.c Plan: cont POC Discharge Comments: pt was seen for 9 OT visits- pt made great gains in strength and reported a reduction in her symptoms of tingling/numbness. pt met all OT goals and is d/c at this time. If there are questions or concerns regarding this patient's occupational therapy, please fell free to call me at [phone]. Thank you for the referral of this patient. Sincerely, Cristine Troy, OTR/L, CHT
--- NOTE | 2020-12-04 09:41 | HP.PTDCSUM ---
It has been my pleasure to treat GIUSEPPE XAVIER referred by Dr. Raphael Russell MD, with the diagnosis of Left Knee Osteoarthritis for a total of 9 visit(s). Discharge Date: 12/04/20 Please see the following information for a summary of their discharge status. Subjective: Pt. reports overall improvement with PT, I feel like I have become stronger. Pt. reports being 50% better overall. Left Knee Pain Intensity (Out of 10): 0 Objective/Function: ROM: L knee: AROM 0-2-131deg. PROM 0-0-135deg mild increase in knee pain with ext and flexion. MMT: L knee: flexion 4+/5, ext 4/5; hip- flexion 4/5, abd 4/5, ext 4+/5. STAIRS: Pt. is able to complete with reciprocal pattern, but does have increased pain in her L knee with loading. No issues with step to pattern. GAIT: Pt. ambulates without AD. Pt. does have slight lack of TKE on L knee. Pt. has decreased step length on R side subsequently. Goal 1:: LTG: The pt. will be independent and complaint with her HEP. Goal Progress: Goal Met Goal 2:: LTG: The pt. will will be able to walk a half mile with pain less than a 2/10. Goal Progress: Progressing Goal 3:: LTG: The pt. will be able to increase her bilateral single leg stance time by 15 seconds. Goal Progress: Goal Met Goal 4:: LTG: The pt. will be able to extend her left knee to 0deg without reporting pain. Goal Progress: Progressing Goal 5:: LTG: The pt. will increase her L quadriceps and hamstring musculature by 1-2 muscle grades, so she can feel more comfortable going up/down a flight of stairs. Goal Progress: Goal Met Plan: Pt. to be DC to HEP at this point in time. She is to have cortisone knee injection in ~2 weeks. Discharge Comments: Pt. is improving with her ROM and strength. She is still having pain with increased walking and with stairs. She is walking better, but still has some antalgic pattern. I would like her to continue with her strengthening and ROM exercises as she is awaiting her injection. I would like her to continue them past as well. Pt. is content with this plan. Pt. to be DC at this point in time. If there are questions or concerns regarding this patient's physical therapy, please feel free to call me at [phone]. Thank you for the referral of this patient. Sincerely, JUNAID RojasT
== END 2020-12-04 10:52 | disposition home or self-care (01) ==
LOC: OT 08:30
PROVIDERS: PCP Family Medicine; Referring Provider Family Medicine; Visit Provider Family Medicine
DX: G56.00 Carpal tunnel syndrome, unspecified upper limb (principal)
CPT/HCPCS: 97035; 97110; 97161; 97164; 97166; 97530

== ENCOUNTER 2020-12-29 07:01 | Outpatient (RCR) | payer MEDICARE, OTHER, SELFPAY ==
[2020-09-04 08:48] VITALS: BMI 27.0
[2020-12-04 10:12] LABS: Hematocrit 29.4 % (37-47); Hemoglobin 8.8 g/dL (12.0-15.0); Mean Corp Hgb Conc 29.9 g/dL (32-36); Mean Corpuscular Hgb 29.8 pg (27.0-32.0); Mean Corpuscular Volume 99.7 fL (81-99); Mean Platelet Vol. 10.1 fl (6.2-12.0); Platelet Count 369 K/mm3 (150-450); RBC Distribution Width CV 13.7 % (11.6-14.6); RBC Distribution Width SD 49.7 fl (35.1-43.9); Red Blood Count 2.95 M/mm3 (4.2-5.4); White Blood Count 6.2 K/mm3 (4.4-11.0)
[2020-12-04 10:22] LABS: Anion Gap 4 (5-15); BUN 26 mg/dL (7-18); Chloride 113 mmol/L (98-107); Creatinine, Serum 1.46 mg/dL (0.55-1.02); EST Glomerular Filtration Rate 39 mL/min (>60); Est Glom Filt Rate - Afr Amer 47 mL/min (>60); Glucose 93 mg/dL (74-106); Potassium 5.3 mmol/L (3.5-5.1); Sodium Level 140 mmol/L (136-145)
[2020-12-07 07:49] LABS: Tacrolimus (FK506) 8.8 ng/mL (2.0-20.0)
[2020-12-08 07:45] LABS: Absolute Lymphocyte Count 0.44 X10^3/uL (0.83-4.51); Basophil# 0.05 X10^3/uL; Eosinophil# 0.13 X10^3/uL; Eosinophils% 2.5 % (0-5); Hematocrit 29.1 % (37-47); Lymphocyte # 0.44 X10^3/ul (0.83-4.51); Lymphocyte % 8.4 % (19-41); Mean Corp Hgb Conc 30.9 g/dL (32-36); Mean Corpuscular Hgb 30.4 pg (27.0-32.0); Mean Corpuscular Volume 98.3 fL (81-99); Mean Platelet Vol. 9.2 fl (6.2-12.0); Monocyte# 0.55 X10^3/uL; Monocyte% 10.5 % (0-10); NRBC Flagged by Analyzer 0 % (0-5); Neutrophil # 4.03 X10^3/uL (2.7-7.7); Neutrophil % 77.2 % (47-70); POSITIVE DIFFERENTIAL YES; Platelet Count 328 K/mm3 (150-450); RBC Distribution Width CV 13.7 % (11.6-14.6); RBC Distribution Width SD 49.4 fl (35.1-43.9); Red Blood Count 2.96 M/mm3 (4.2-5.4); White Blood Count 5.2 K/mm3 (4.4-11.0)
[2020-12-08 07:47] LABS: Differential Indicated SCAN CRITERIA MET
[2020-12-08 08:10] LABS: Hypochromasia 1+; Platelet Estimate ADEQUATE (ADEQ)
[2020-12-08 08:12] LABS: AST(SGOT) 13 U/L (15-37); Alanine Aminotransfer ALT/SGPT 18 U/L (13-56); Albumin, Serum 3.7 g/dL (3.2-5.0); Alkaline Phosphatase 178 U/L (45-117); Anion Gap 5 (5-15); BUN 26 mg/dL (7-18); BUN/Creat Ratio 19.7 RATIO (10-20); Calcium,Total 10.1 mg/dL (8.5-10.1); Chloride 111 mmol/L (98-107); Cholesterol 156 mg/dL (200); Creatinine, Serum 1.32 mg/dL (0.55-1.02); EST Glomerular Filtration Rate 44 mL/min (>60); Est Glom Filt Rate - Afr Amer 53 mL/min (>60); Glucose 99 mg/dL (74-106); Magnesium 1.5 mg/dL (1.6-2.6); Phosphorus 2.6 mg/dL (2.5-4.9); Potassium 4.9 mmol/L (3.5-5.1); Sodium Level 140 mmol/L (136-145); Triglycerides 100 mg/dL
[2020-12-11 14:13] LABS: Tacrolimus (FK506) 6.8 ng/mL (2.0-20.0)
[2020-12-15 10:21] LABS: Hematocrit 28.5 % (37-47); Hemoglobin 8.6 g/dL (12.0-15.0); Mean Corp Hgb Conc 30.2 g/dL (32-36); Mean Corpuscular Volume 99.3 fL (81-99); Mean Platelet Vol. 9.9 fl (6.2-12.0); Platelet Count 341 K/mm3 (150-450); RBC Distribution Width CV 13.8 % (11.6-14.6); Red Blood Count 2.87 M/mm3 (4.2-5.4); White Blood Count 6.4 K/mm3 (4.4-11.0)
[2020-12-15 10:47] LABS: AST(SGOT) 14 U/L (15-37); Alanine Aminotransfer ALT/SGPT 19 U/L (13-56); Albumin, Serum 3.6 g/dL (3.2-5.0); Alkaline Phosphatase 154 U/L (45-117); Anion Gap 5 (5-15); BUN 22 mg/dL (7-18); Chloride 113 mmol/L (98-107); Creatinine, Serum 1.42 mg/dL (0.55-1.02); EST Glomerular Filtration Rate 40 mL/min (>60); Est Glom Filt Rate - Afr Amer 49 mL/min (>60); Glucose 97 mg/dL (74-106); Potassium 4.8 mmol/L (3.5-5.1); Sodium Level 139 mmol/L (136-145)
[2020-12-18 16:39] LABS: Tacrolimus (FK506) 7.8 ng/mL (2.0-20.0)
[2020-12-22 10:09] LABS: Hematocrit 29.6 % (37-47); Hemoglobin 8.7 g/dL (12.0-15.0); Mean Corp Hgb Conc 29.4 g/dL (32-36); Mean Corpuscular Hgb 29.8 pg (27.0-32.0); Mean Corpuscular Volume 101.4 fL (81-99); Mean Platelet Vol. 10.2 fl (6.2-12.0); Platelet Count 345 K/mm3 (150-450); RBC Distribution Width CV 13.5 % (11.6-14.6); RBC Distribution Width SD 49.9 fl (35.1-43.9); Red Blood Count 2.92 M/mm3 (4.2-5.4); White Blood Count 6.5 K/mm3 (4.4-11.0)
[2020-12-22 10:16] LABS: Anion Gap 2 (5-15); BUN 25 mg/dL (7-18); BUN/Creat Ratio 19.8 RATIO (10-20); Calcium,Total 10.2 mg/dL (8.5-10.1); Chloride 114 mmol/L (98-107); Creatinine, Serum 1.26 mg/dL (0.55-1.02); EST Glomerular Filtration Rate 46 mL/min (>60); Est Glom Filt Rate - Afr Amer 56 mL/min (>60); Glucose 89 mg/dL (74-106); Potassium 4.7 mmol/L (3.5-5.1); Sodium Level 140 mmol/L (136-145)
[2020-12-24 15:14] LABS: Tacrolimus (FK506) 7.9 ng/mL (2.0-20.0)
[2020-12-29 10:42] LABS: Hematocrit 31.5 % (37-47); Hemoglobin 9.5 g/dL (12.0-15.0); Mean Corp Hgb Conc 30.2 g/dL (32-36); Mean Corpuscular Hgb 30.1 pg (27.0-32.0); Mean Corpuscular Volume 99.7 fL (81-99); Mean Platelet Vol. 10.3 fl (6.2-12.0); Platelet Count 333 K/mm3 (150-450); RBC Distribution Width CV 13.5 % (11.6-14.6); RBC Distribution Width SD 49.5 fl (35.1-43.9); Red Blood Count 3.16 M/mm3 (4.2-5.4)
[2020-12-29 10:53] LABS: AST(SGOT) 11 U/L (15-37); Alanine Aminotransfer ALT/SGPT 22 U/L (13-56); Albumin, Serum 3.7 g/dL (3.2-5.0); Alkaline Phosphatase 164 U/L (45-117); Anion Gap 2 (5-15); BUN 22 mg/dL (7-18); BUN/Creat Ratio 18.8 RATIO (10-20); Calcium,Total 9.9 mg/dL (8.5-10.1); Chloride 114 mmol/L (98-107); Creatinine, Serum 1.17 mg/dL (0.55-1.02); EST Glomerular Filtration Rate 51 mL/min (>60); Est Glom Filt Rate - Afr Amer 61 mL/min (>60); Glucose 93 mg/dL (74-106); Potassium 4.6 mmol/L (3.5-5.1); Sodium Level 138 mmol/L (136-145)
[2020-12-31 12:34] LABS: Tacrolimus (FK506) 5.9 ng/mL (2.0-20.0)
== END 2020-12-29 18:00 | disposition home or self-care (01) ==
LOC: MTLAB 07:01
PROVIDERS: Nurse Practitioner Acute Care; PCP Family Medicine
DX: Z48.298 Encounter for aftercare following other organ transplant (principal); R79.9 Abnormal finding of blood chemistry, unspecified; D84.9 Immunodeficiency, unspecified; N18.31 Chronic kidney disease, stage 3a; D63.1 Anemia in chronic kidney disease; Z94.0 Kidney transplant status; Z79.899 Other long term (current) drug therapy
CPT/HCPCS: 36415; 80048; 80051; 80197; 82040; 82247; 82465; 82565; 82947; 83735; 84075; 84100; 84450; 84460; 84478; 84520; 85025; 85027

== ENCOUNTER → 2021-01-15 11:57 | Outpatient (CLI) | payer MEDICARE, OTHER, SELFPAY ==
[2021-01-15 13:04] LABS: BNP,B-Type NATRIURETIC PEPTIDE 38.2 pg/mL (0-100)
[2021-01-15 13:07] LABS: Anion Gap 7 (5-15); BUN 24 mg/dL (7-18); BUN/Creat Ratio 21.6 RATIO (10-20); Calcium,Total 10.7 mg/dL (8.5-10.1); Chloride 110 mmol/L (98-107); Creatinine, Serum 1.11 mg/dL (0.55-1.02); EST Glomerular Filtration Rate 54 mL/min (>60); Est Glom Filt Rate - Afr Amer 65 mL/min (>60); Glucose 103 mg/dL (74-106); Sodium Level 139 mmol/L (136-145)
== END ==
PROVIDERS: PCP Family Medicine; Visit Provider Nurse Practitioner Gerontology
DX: I50.41 Acute combined systolic (congestive) and diastolic (congestive) heart failure (principal)
CPT/HCPCS: 36415; 80048; 83880

== ENCOUNTER → 2021-01-22 10:44 | Outpatient (CLI) | payer MEDICARE, OTHER, SELFPAY ==
[2020-09-04 08:48] VITALS: BMI 27.0
--- NOTE | 2021-01-22 10:49 | ECHOD_ITS ---
Reason For Study: s/p renal transplant, fatigue Procedure This was a 2D Doppler, Color Flow transthoracic echocardiogram. Exam performed in department. Left Ventricle Normal LV size. Left ventricular systolic function is normal. The estimated ejection fraction is 60 %. Stage 1 diastolic dysfunction. No regional wall motion abnormalities noted. Right Ventricle Normal RV size. Normal systolic function. Atria Normal left atrium. Normal right atrium. Mitral Valve Normal mitral valve. Tricuspid Valve Normal tricuspid valve. Aortic Valve Normal aortic valve. Trisinus/trileaflet aortic valve. Pulmonic Valve Normal pulmonic valve. Great Vessels Normal aortic root. The pulmonary artery is normal size. Normal inferior vena cava. Pericardium/Pleural No pericardial effusion. MMode/2D Measurements & Calculations LVIDd: 4.6 cm IVSd: 0.91 cm Ao root diam: 3.1 cm LVIDs: 3.0 cm LVPWd: 0.98 cm RVDd: 3.4 cm FS: 35.1 % LAV(MOD-bp): 49.6 ml LVAd ap4: 31.7 cm2 LVAd ap2: 25.8 cm2 LAV(MOD-bp) Indexed: 29.7 ml/m2 LVLd ap4: 7.8 cm LVLd ap2: 7.7 cm LAV(MOD-sp2): 63.2 ml EDV(MOD-sp4): 107.0 ml EDV(MOD-sp2): 74.0 ml LAV(MOD-sp4): 39.1 ml EDV(sp4-el): 109.1 ml EDV(sp2-el): 73.0 ml LVAs ap4: 19.8 cm2 LVAs ap2: 16.9 cm2 LVLs ap4: 7.0 cm LVLs ap2: 7.0 cm ESV(MOD-sp4): 47.5 ml ESV(MOD-sp2): 36.0 ml ESV(sp4-el): 47.8 ml ESV(sp2-el): 34.6 ml EF(MOD-sp4): 55.6 % EF(MOD-sp2): 51.3 % EF(sp4-el): 56.2 % SV(MOD-sp4): 59.5 ml SV(MOD-sp2): 38.0 ml SV(sp4-el): 61.3 ml LA dimension(2D): 3.5 cm LA A4 area: 14.5 cm2 RA A4 area: 14.1 cm2 Doppler Measurements & Calculations MV E max chad: 66.1 cm/sec Lat Peak E' Chad: 6.3 cm/sec Med Peak E' Chad: 7.0 cm/sec MV A max chad: 84.6 cm/sec E/E' lat: 10.4 E/E' med: 9.5 MV E/A: 0.78 Ao V2 max: 140.9 cm/sec LV V1 max: 100.7 cm/sec PA V2 max: 92.2 cm/sec Ao max P.9 mmHg LV V1 max P.1 mmHg TR max chad: 156.8 cm/sec TR max P.8 mmHg ECHO/Echo Complete Interpretation Summary Normal LV size. Left ventricular systolic function is normal. The estimated ejection fraction is 60 %. Stage 1 diastolic dysfunction. Structurally normal valves. Ordering Physician: Raphael Russell Referring Physician: Raphael Russell Performed By: Dominique Knott RDCS
== END ==
PROVIDERS: PCP Family Medicine; Referring Provider Family Medicine; Visit Provider Family Medicine
DX: I42.9 Cardiomyopathy, unspecified (principal); Z94.0 Kidney transplant status; R53.83 Other fatigue; I51.89 Other ill-defined heart diseases
CPT/HCPCS: 93306

== ENCOUNTER 2021-02-02 07:00 | Outpatient (RCR) | payer MEDICARE, OTHER, SELFPAY ==
[2020-09-04 08:48] VITALS: BMI 27.0
[2021-01-05 10:12] LABS: Hematocrit 30.5 % (37-47); Hemoglobin 9.1 g/dL (12.0-15.0); Mean Corp Hgb Conc 29.8 g/dL (32-36); Mean Corpuscular Hgb 29.7 pg (27.0-32.0); Mean Corpuscular Volume 99.7 fL (81-99); Mean Platelet Vol. 10.4 fl (6.2-12.0); POSITIVE COUNT YES; POSITIVE DIFFERENTIAL YES; POSITIVE MORPHOLOGY YES; Platelet Count 298 K/mm3 (150-450); RBC Distribution Width CV 13.4 % (11.6-14.6); RBC Distribution Width SD 49.3 fl (35.1-43.9); Red Blood Count 3.06 M/mm3 (4.2-5.4); White Blood Count 4.3 K/mm3 (4.4-11.0)
[2021-01-05 10:13] LABS: Differential Indicated MANUAL DIFF
[2021-01-05 10:32] LABS: AST(SGOT) 16 U/L (15-37); Alanine Aminotransfer ALT/SGPT 24 U/L (13-56); Albumin, Serum 3.5 g/dL (3.2-5.0); Alkaline Phosphatase 152 U/L (45-117); BUN 25 mg/dL (7-18); Chloride 113 mmol/L (98-107); Creatinine, Serum 1.17 mg/dL (0.55-1.02); EST Glomerular Filtration Rate 51 mL/min (>60); Est Glom Filt Rate - Afr Amer 61 mL/min (>60); Glucose 96 mg/dL (74-106); Potassium 4.2 mmol/L (3.5-5.1); Sodium Level 140 mmol/L (136-145)
[2021-01-05 10:36] LABS: Eosinophil 5 % (0-5); Lymphocyte 11 % (19-41); Monocyte 5 % (0-10); Myelocyte 2 % (0-0); Neutrophil-Segmented 77 % (47-70); Platelet Estimate ADEQUATE (ADEQ); Red Cell Morphology NORM C+C NORMAL (NORM C&C); Total Cells Counted 100 (MANUAL DIFF)
[2021-01-05 10:37] LABS: Absolute Lymphocyte Count 0.47 X10^3/uL (0.83-4.51); Absolute Neutrophil Count 3.3 X10^3/uL (2.0-7.7)
[2021-01-06 12:46] LABS: Pathologist Review Reviewed
[2021-01-07 21:28] LABS: Tacrolimus (FK506) 5.6 ng/mL (2.0-20.0)
[2021-01-12 10:00] LABS: Hematocrit 33.5 % (37-47); Hemoglobin 10.1 g/dL (12.0-15.0); Mean Corp Hgb Conc 30.1 g/dL (32-36); Mean Corpuscular Hgb 29.6 pg (27.0-32.0); Mean Corpuscular Volume 98.2 fL (81-99); Mean Platelet Vol. 10.1 fl (6.2-12.0); Platelet Count 328 K/mm3 (150-450); RBC Distribution Width SD 46.5 fl (35.1-43.9); Red Blood Count 3.41 M/mm3 (4.2-5.4)
[2021-01-12 10:37] LABS: AST(SGOT) 16 U/L (15-37); Alanine Aminotransfer ALT/SGPT 24 U/L (13-56); Albumin, Serum 3.6 g/dL (3.2-5.0); Alkaline Phosphatase 184 U/L (45-117); Anion Gap 6 (5-15); BUN 27 mg/dL (7-18); BUN/Creat Ratio 19.9 RATIO (10-20); Calcium,Total 10.4 mg/dL (8.5-10.1); Chloride 112 mmol/L (98-107); Cholesterol 171 mg/dL (200); Creatinine, Serum 1.36 mg/dL (0.55-1.02); EST Glomerular Filtration Rate 42 mL/min (>60); Est Glom Filt Rate - Afr Amer 51 mL/min (>60); Glucose 105 mg/dL (74-106); High Density Lipoprotein 85 mg/dL; Magnesium 1.6 mg/dL (1.6-2.6); Phosphorus 2.2 mg/dL (2.5-4.9); Potassium 4.5 mmol/L (3.5-5.1); Sodium Level 139 mmol/L (136-145); Triglycerides 84 mg/dL; Uric Acid 4.8 mg/dL (2.6-6.0); Very Low Density Lipoprotein 17 mg/dL (5-40)
[2021-01-15 13:22] LABS: Tacrolimus (FK506) 7.7 ng/mL (2.0-20.0)
[2021-01-19 09:52] LABS: Hematocrit 33.5 % (37-47); Hemoglobin 10.3 g/dL (12.0-15.0); Mean Corp Hgb Conc 30.7 g/dL (32-36); Mean Corpuscular Hgb 29.9 pg (27.0-32.0); Mean Corpuscular Volume 97.1 fL (81-99); Mean Platelet Vol. 9.3 fl (6.2-12.0); Platelet Count 329 K/mm3 (150-450); RBC Distribution Width SD 45.6 fl (35.1-43.9); Red Blood Count 3.45 M/mm3 (4.2-5.4); White Blood Count 3.3 K/mm3 (4.4-11.0)
[2021-01-19 10:16] LABS: Anion Gap 4 (5-15); BUN 24 mg/dL (7-18); Chloride 113 mmol/L (98-107); Creatinine, Serum 1.08 mg/dL (0.55-1.02); EST Glomerular Filtration Rate 55 mL/min (>60); Est Glom Filt Rate - Afr Amer 67 mL/min (>60); Glucose 90 mg/dL (74-106); Potassium 4.5 mmol/L (3.5-5.1); Sodium Level 141 mmol/L (136-145)
[2021-01-22 12:50] LABS: Tacrolimus (FK506) 7.5 ng/mL (2.0-20.0)
[2021-01-26 10:18] LABS: Hematocrit 35.4 % (37-47); Hemoglobin 10.7 g/dL (12.0-15.0); Mean Corp Hgb Conc 30.2 g/dL (32-36); Mean Corpuscular Hgb 29.5 pg (27.0-32.0); Mean Corpuscular Volume 97.5 fL (81-99); Mean Platelet Vol. 9.9 fl (6.2-12.0); POSITIVE COUNT YES; POSITIVE DIFFERENTIAL YES; POSITIVE MORPHOLOGY YES; Platelet Count 358 K/mm3 (150-450); RBC Distribution Width CV 12.9 % (11.6-14.6); RBC Distribution Width SD 46.2 fl (35.1-43.9); Red Blood Count 3.63 M/mm3 (4.2-5.4); White Blood Count 3.7 K/mm3 (4.4-11.0)
[2021-01-26 10:25] LABS: Differential Indicated MANUAL DIFF
[2021-01-26 10:28] LABS: AST(SGOT) 15 U/L (15-37); Alanine Aminotransfer ALT/SGPT 28 U/L (13-56); Albumin, Serum 3.6 g/dL (3.2-5.0); Alkaline Phosphatase 191 U/L (45-117); BUN 25 mg/dL (7-18); Chloride 110 mmol/L (98-107); Creatinine, Serum 1.21 mg/dL (0.55-1.02); EST Glomerular Filtration Rate 49 mL/min (>60); Est Glom Filt Rate - Afr Amer 59 mL/min (>60); Glucose 97 mg/dL (74-106); Potassium 4.5 mmol/L (3.5-5.1); Sodium Level 139 mmol/L (136-145)
[2021-01-26 11:03] LABS: Eosinophil 3 % (0-5); Lymphocyte 11 % (19-41); Monocyte 4 % (0-10); Myelocyte 1 % (0-0); Neutrophil-Band 4 % (0-5); Neutrophil-Segmented 77 % (47-70); Total Cells Counted 100 (MANUAL DIFF)
[2021-01-26 11:05] LABS: Absolute Lymphocyte Count 0.41 X10^3/uL (0.83-4.51); Platelet Estimate ADEQUATE (ADEQ); Red Cell Morphology NORM C+C NORMAL (NORM C&C)
[2021-01-27 12:40] LABS: Pathologist Review Reviewed
[2021-01-28 09:18] LABS: Tacrolimus (FK506) 8.3 ng/mL (2.0-20.0)
[2021-02-02 10:16] LABS: Hematocrit 35.9 % (37-47); Hemoglobin 10.9 g/dL (12.0-15.0); Mean Corp Hgb Conc 30.4 g/dL (32-36); Mean Corpuscular Hgb 29.4 pg (27.0-32.0); Mean Corpuscular Volume 96.8 fL (81-99); Platelet Count 341 K/mm3 (150-450); RBC Distribution Width CV 12.9 % (11.6-14.6); RBC Distribution Width SD 46.4 fl (35.1-43.9); Red Blood Count 3.71 M/mm3 (4.2-5.4); White Blood Count 3.6 K/mm3 (4.4-11.0)
[2021-02-02 10:22] LABS: Anion Gap 3 (5-15); BUN 23 mg/dL (7-18); Chloride 112 mmol/L (98-107); EST Glomerular Filtration Rate 49 mL/min (>60); Est Glom Filt Rate - Afr Amer 59 mL/min (>60); Glucose 98 mg/dL (74-106); Potassium 4.5 mmol/L (3.5-5.1); Sodium Level 141 mmol/L (136-145)
[2021-02-04 14:21] LABS: Tacrolimus (FK506) 8.8 ng/mL (2.0-20.0)
== END 2021-02-02 18:00 | disposition home or self-care (01) ==
LOC: MTLAB 07:00
PROVIDERS: PCP Family Medicine
DX: Z48.298 Encounter for aftercare following other organ transplant (principal); D84.9 Immunodeficiency, unspecified; N18.31 Chronic kidney disease, stage 3a; D63.1 Anemia in chronic kidney disease; R79.9 Abnormal finding of blood chemistry, unspecified; Z94.0 Kidney transplant status; Z79.899 Other long term (current) drug therapy
CPT/HCPCS: 36415; 80048; 80051; 80061; 80197; 82040; 82247; 82374; 82435; 82565; 82947; 83036; 83735; 84075; 84100; 84132; 84295; 84450; 84460; 84520; 84550; 85025; 85027

== ENCOUNTER 2021-03-02 07:00 | Outpatient (RCR) | payer MEDICARE, OTHER, SELFPAY ==
[2021-02-04 01:24] VITALS: BMI 27.0
[2021-02-10 10:28] LABS: Hematocrit 34.7 % (37-47); Hemoglobin 10.9 g/dL (12.0-15.0); Mean Corp Hgb Conc 31.4 g/dL (32-36); Mean Corpuscular Hgb 29.9 pg (27.0-32.0); Mean Corpuscular Volume 95.3 fL (81-99); Mean Platelet Vol. 10.3 fl (6.2-12.0); POSITIVE COUNT YES; POSITIVE DIFFERENTIAL YES; POSITIVE MORPHOLOGY YES; Platelet Count 264 K/mm3 (150-450); RBC Distribution Width CV 12.8 % (11.6-14.6); Red Blood Count 3.64 M/mm3 (4.2-5.4); White Blood Count 3.7 K/mm3 (4.4-11.0)
[2021-02-10 10:29] LABS: Differential Indicated MANUAL DIFF
[2021-02-10 11:02] LABS: Eosinophil 1 % (0-5); Lymphocyte 9 % (19-41); Monocyte 6 % (0-10); Neutrophil-Band 1 % (0-5); Neutrophil-Segmented 83 % (47-70); Total Cells Counted 100 (MANUAL DIFF)
[2021-02-10 11:03] LABS: AST(SGOT) 13 U/L (15-37); Absolute Neutrophil Count 3.1 X10^3/uL (2.0-7.7); Alanine Aminotransfer ALT/SGPT 22 U/L (13-56); Albumin, Serum 3.3 g/dL (3.2-5.0); Alkaline Phosphatase 171 U/L (45-117); BUN 21 mg/dL (7-18); Calcium,Total 10.3 mg/dL (8.5-10.1); Chloride 113 mmol/L (98-107); Cholesterol 165 mg/dL (200); Creatinine, Serum 1.12 mg/dL (0.55-1.02); EST Glomerular Filtration Rate 53 mL/min (>60); Est Glom Filt Rate - Afr Amer 64 mL/min (>60); Glucose 102 mg/dL (74-106); High Density Lipoprotein 90 mg/dL; Lymphocyte # 0.33 X10^3/ul (0.83-4.51); Magnesium 1.9 mg/dL (1.6-2.6); Neutrophil # 3.13 X10^3/uL (2.7-7.7); Platelet Estimate ADEQUATE (ADEQ); Potassium 4.5 mmol/L (3.5-5.1); Red Cell Morphology NORM C+C NORMAL (NORM C&C); Sodium Level 140 mmol/L (136-145); Triglycerides 67 mg/dL; Uric Acid 4.4 mg/dL (2.6-6.0)
[2021-02-10 11:04] LABS: Absolute Lymphocyte Count 0.33 X10^3/uL (0.83-4.51)
[2021-02-11 16:04] LABS: Pathologist Review Reviewed
[2021-02-12 18:35] LABS: Tacrolimus (FK506) 6.4 ng/mL (2.0-20.0)
[2021-02-16 10:40] LABS: Hematocrit 36.1 % (37-47); Hemoglobin 10.7 g/dL (12.0-15.0); Mean Corp Hgb Conc 29.6 g/dL (32-36); Mean Corpuscular Hgb 28.8 pg (27.0-32.0); Mean Corpuscular Volume 97.3 fL (81-99); Mean Platelet Vol. 10.3 fl (6.2-12.0); POSITIVE COUNT YES; POSITIVE DIFFERENTIAL YES; POSITIVE MORPHOLOGY YES; Platelet Count 319 K/mm3 (150-450); RBC Distribution Width CV 12.6 % (11.6-14.6); RBC Distribution Width SD 44.9 fl (35.1-43.9); Red Blood Count 3.71 M/mm3 (4.2-5.4); White Blood Count 3.7 K/mm3 (4.4-11.0)
[2021-02-16 10:43] LABS: Differential Indicated MANUAL DIFF
[2021-02-16 10:51] LABS: BUN 21 mg/dL (7-18); Chloride 111 mmol/L (98-107); Creatinine, Serum 0.99 mg/dL (0.55-1.02); EST Glomerular Filtration Rate 61 mL/min (>60); Est Glom Filt Rate - Afr Amer 74 mL/min (>60); Glucose 100 mg/dL (74-106); Potassium 4.5 mmol/L (3.5-5.1); Sodium Level 140 mmol/L (136-145)
[2021-02-16 11:54] LABS: Eosinophil 4 % (0-5); Lymphocyte 12 % (19-41); Monocyte 11 % (0-10); Neutrophil-Segmented 73 % (47-70); Total Cells Counted 100 (MANUAL DIFF)
[2021-02-16 11:55] LABS: Absolute Neutrophil Count 2.7 X10^3/uL (2.0-7.7); Platelet Estimate ADEQUATE (ADEQ); Red Cell Morphology NORM C+C NORMAL (NORM C&C)
[2021-02-16 11:56] LABS: Absolute Lymphocyte Count 0.44 X10^3/uL (0.83-4.51); Lymphocyte # 0.44 X10^3/ul (0.83-4.51)
[2021-02-17 12:58] LABS: Pathologist Review Reviewed
[2021-02-18 20:36] LABS: Tacrolimus (FK506) 8.1 ng/mL (2.0-20.0)
[2021-02-23 09:59] LABS: Hematocrit 36.1 % (37-47); Mean Corp Hgb Conc 30.5 g/dL (32-36); Mean Corpuscular Hgb 29.1 pg (27.0-32.0); Mean Corpuscular Volume 95.5 fL (81-99); Mean Platelet Vol. 10.1 fl (6.2-12.0); Platelet Count 304 K/mm3 (150-450); RBC Distribution Width CV 12.5 % (11.6-14.6); RBC Distribution Width SD 43.7 fl (35.1-43.9); Red Blood Count 3.78 M/mm3 (4.2-5.4); White Blood Count 3.8 K/mm3 (4.4-11.0)
[2021-02-23 10:49] LABS: AST(SGOT) 18 U/L (15-37); Alanine Aminotransfer ALT/SGPT 26 U/L (13-56); Albumin, Serum 3.4 g/dL (3.2-5.0); Alkaline Phosphatase 193 U/L (45-117); Anion Gap 5 (5-15); BUN 25 mg/dL (7-18); Chloride 111 mmol/L (98-107); Creatinine, Serum 1.13 mg/dL (0.55-1.02); EST Glomerular Filtration Rate 53 mL/min (>60); Est Glom Filt Rate - Afr Amer 64 mL/min (>60); Glucose 96 mg/dL (74-106); Potassium 3.8 mmol/L (3.5-5.1); Sodium Level 141 mmol/L (136-145)
[2021-02-26 10:35] LABS: Tacrolimus (FK506) 3.7 ng/mL (2.0-20.0)
[2021-03-02 10:02] LABS: Hematocrit 37.7 % (37-47); Hemoglobin 11.4 g/dL (12.0-15.0); Mean Corp Hgb Conc 30.2 g/dL (32-36); Mean Corpuscular Hgb 29.2 pg (27.0-32.0); Mean Corpuscular Volume 96.4 fL (81-99); Mean Platelet Vol. 10.2 fl (6.2-12.0); Platelet Count 366 K/mm3 (150-450); RBC Distribution Width CV 12.7 % (11.6-14.6); Red Blood Count 3.91 M/mm3 (4.2-5.4); White Blood Count 4.8 K/mm3 (4.4-11.0)
[2021-03-02 10:18] LABS: Anion Gap 8 (5-15); BUN 31 mg/dL (7-18); Chloride 108 mmol/L (98-107); Creatinine, Serum 1.07 mg/dL (0.55-1.02); EST Glomerular Filtration Rate 56 mL/min (>60); Est Glom Filt Rate - Afr Amer 68 mL/min (>60); Glucose 96 mg/dL (74-106); Potassium 4.7 mmol/L (3.5-5.1); Sodium Level 139 mmol/L (136-145)
[2021-03-04 09:32] LABS: Tacrolimus (FK506) 6.4 ng/mL (2.0-20.0)
[2021-03-24 08:20] LABS: BUN/Creat Ratio 18.8 RATIO (10-20)
[2021-03-24 08:22] LABS: Anion Gap 5 (5-15)
[2021-03-27 09:05] LABS: Very Low Density Lipoprotein 13 mg/dL (5-40)
== END 2021-03-02 18:00 | disposition home or self-care (01) ==
LOC: MTLAB 07:00
PROVIDERS: PCP Family Medicine
DX: Z48.298 Encounter for aftercare following other organ transplant (principal); D84.9 Immunodeficiency, unspecified; N18.31 Chronic kidney disease, stage 3a; D63.1 Anemia in chronic kidney disease; R79.9 Abnormal finding of blood chemistry, unspecified; Z94.0 Kidney transplant status; Z79.899 Other long term (current) drug therapy
CPT/HCPCS: 36415; 80051; 80061; 80069; 80197; 82040; 82247; 82310; 82374; 82435; 82465; 82565; 82947; 83718; 83735; 84075; 84100; 84132; 84295; 84450; 84460; 84478; 84520; 84550; 85025; 85027

== ENCOUNTER 2021-03-23 07:01 | Outpatient (RCR) | payer MEDICARE, OTHER, SELFPAY ==
[2021-03-06 01:58] VITALS: BMI 27.0
[2021-03-09 10:00] LABS: Hematocrit 36.1 % (37-47); Mean Corp Hgb Conc 30.5 g/dL (32-36); Mean Corpuscular Hgb 29.4 pg (27.0-32.0); Mean Corpuscular Volume 96.5 fL (81-99); Platelet Count 344 K/mm3 (150-450); RBC Distribution Width CV 12.6 % (11.6-14.6); RBC Distribution Width SD 44.7 fl (35.1-43.9); Red Blood Count 3.74 M/mm3 (4.2-5.4); White Blood Count 3.5 K/mm3 (4.4-11.0)
[2021-03-09 10:42] LABS: AST(SGOT) 10 U/L (15-37); Alanine Aminotransfer ALT/SGPT 20 U/L (13-56); Albumin, Serum 3.2 g/dL (3.2-5.0); Alkaline Phosphatase 192 U/L (45-117); Anion Gap 8 (5-15); BUN 28 mg/dL (7-18); Calcium,Total 9.9 mg/dL (8.5-10.1); Chloride 112 mmol/L (98-107); Cholesterol 183 mg/dL (200); Creatinine, Serum 1.08 mg/dL (0.55-1.02); EST Glomerular Filtration Rate 55 mL/min (>60); Est Glom Filt Rate - Afr Amer 67 mL/min (>60); Ferritin 1897 ng/mL (8-252); Glucose 92 mg/dL (74-106); High Density Lipoprotein 78 mg/dL; Iron 117 ug/dL (50-170); Iron Binding Capacity,Total 259 ug/dL (250-450); Magnesium 1.9 mg/dL (1.6-2.6); PERCENT IRON SATURATION 45.2 % (15.0-55.0); Phosphorus 2.2 mg/dL (2.5-4.9); Potassium 4.4 mmol/L (3.5-5.1); Sodium Level 141 mmol/L (136-145); Triglycerides 90 mg/dL; Very Low Density Lipoprotein 18 mg/dL (5-40)
[2021-03-09 10:43] LABS: Protein, Urine (Random) 14.2 mg/dL (<11.9); Protein:Creat Ratio 174 mg/g CRE (0-200)
[2021-03-12 11:14] LABS: Tacrolimus (FK506) 5.9 ng/mL (2.0-20.0); Transferrin 180 mg/dL (192-364)
[2021-03-23 10:19] LABS: Hematocrit 37.8 % (37-47); Hemoglobin 11.7 g/dL (12.0-15.0); Mean Corpuscular Volume 93.6 fL (81-99); Mean Platelet Vol. 10.3 fl (6.2-12.0); Platelet Count 253 K/mm3 (150-450); RBC Distribution Width CV 12.9 % (11.6-14.6); RBC Distribution Width SD 43.8 fl (35.1-43.9); Red Blood Count 4.04 M/mm3 (4.2-5.4); White Blood Count 4.6 K/mm3 (4.4-11.0)
[2021-03-23 11:00] LABS: Anion Gap 8 (5-15); BUN 25 mg/dL (7-18); Chloride 111 mmol/L (98-107); Creatinine, Serum 1.12 mg/dL (0.55-1.02); EST Glomerular Filtration Rate 53 mL/min (>60); Est Glom Filt Rate - Afr Amer 64 mL/min (>60); Glucose 99 mg/dL (74-106); Potassium 4.4 mmol/L (3.5-5.1); Sodium Level 140 mmol/L (136-145)
[2021-03-26 15:20] LABS: Tacrolimus (FK506) 6.5 ng/mL (2.0-20.0)
== END 2021-04-05 18:00 | disposition home or self-care (01) ==
LOC: MTLAB 07:01
PROVIDERS: PCP Family Medicine
DX: D84.9 Immunodeficiency, unspecified (principal); Z79.899 Other long term (current) drug therapy; D50.9 Iron deficiency anemia, unspecified; Z94.0 Kidney transplant status
CPT/HCPCS: 36415; 80051; 80061; 80197; 82040; 82247; 82310; 82565; 82570; 82728; 82947; 83540; 83550; 83735; 84075; 84100; 84156; 84450; 84460; 84466; 84520; 84550; 85027

== ENCOUNTER 2021-05-04 06:55 | Outpatient (RCR) | payer MEDICARE, OTHER, SELFPAY ==
[2021-04-05 20:36] VITALS: BMI 27.0
[2021-04-06 10:03] LABS: Hematocrit 37.4 % (37-47); Hemoglobin 11.6 g/dL (12.0-15.0); Mean Corpuscular Volume 93.5 fL (81-99); Mean Platelet Vol. 10.8 fl (6.2-12.0); Platelet Count 269 K/mm3 (150-450); RBC Distribution Width CV 13.2 % (11.6-14.6); White Blood Count 4.5 K/mm3 (4.4-11.0)
[2021-04-06 10:38] LABS: AST(SGOT) 17 U/L (15-37); Alanine Aminotransfer ALT/SGPT 26 U/L (13-56); Albumin, Serum 3.5 g/dL (3.2-5.0); Alkaline Phosphatase 195 U/L (45-117); Anion Gap 5 (5-15); BUN 22 mg/dL (7-18); BUN/Creat Ratio 21.8 RATIO (10-20); Calcium,Total 10.5 mg/dL (8.5-10.1); Chloride 115 mmol/L (98-107); Creatinine, Serum 1.01 mg/dL (0.55-1.02); EST Glomerular Filtration Rate 60 mL/min (>60); Est Glom Filt Rate - Afr Amer 72 mL/min (>60); Glucose 103 mg/dL (74-106); Phosphorus 2.8 mg/dL (2.5-4.9); Potassium 4.6 mmol/L (3.5-5.1); Sodium Level 143 mmol/L (136-145); Uric Acid 3.7 mg/dL (2.6-6.0)
[2021-04-06 10:47] LABS: Protein, Urine (Random) 17.5 mg/dL (<11.9); Protein:Creat Ratio 172 mg/g CRE (0-200)
[2021-04-06 11:13] LABS: PTHIN 246.7 pg/mL (18.4-80.1)
[2021-04-16 14:09] LABS: CMV by PCR Negative (Negative); Tacrolimus (FK506) 7.2 ng/mL (2.0-20.0)
[2021-04-20 10:05] LABS: Hematocrit 36.4 % (37-47); Hemoglobin 11.1 g/dL (12.0-15.0); Mean Corp Hgb Conc 30.5 g/dL (32-36); Mean Corpuscular Hgb 28.6 pg (27.0-32.0); Mean Corpuscular Volume 93.8 fL (81-99); Mean Platelet Vol. 9.9 fl (6.2-12.0); Platelet Count 321 K/mm3 (150-450); RBC Distribution Width CV 13.2 % (11.6-14.6); RBC Distribution Width SD 44.9 fl (35.1-43.9); Red Blood Count 3.88 M/mm3 (4.2-5.4); White Blood Count 3.8 K/mm3 (4.4-11.0)
[2021-04-20 10:31] LABS: Anion Gap 5 (5-15); BUN 19 mg/dL (7-18); Chloride 112 mmol/L (98-107); Creatinine, Serum 1.13 mg/dL (0.55-1.02); EST Glomerular Filtration Rate 53 mL/min (>60); Est Glom Filt Rate - Afr Amer 64 mL/min (>60); Glucose 117 mg/dL (74-106); Potassium 4.1 mmol/L (3.5-5.1); Sodium Level 140 mmol/L (136-145)
[2021-05-04 10:12] LABS: Hematocrit 36.7 % (37-47); Hemoglobin 11.4 g/dL (12.0-15.0); Mean Corp Hgb Conc 31.1 g/dL (32-36); Mean Corpuscular Hgb 28.9 pg (27.0-32.0); Mean Corpuscular Volume 93.1 fL (81-99); Mean Platelet Vol. 9.9 fl (6.2-12.0); Platelet Count 330 K/mm3 (150-450); RBC Distribution Width CV 13.1 % (11.6-14.6); RBC Distribution Width SD 44.6 fl (35.1-43.9); Red Blood Count 3.94 M/mm3 (4.2-5.4); White Blood Count 4.4 K/mm3 (4.4-11.0)
[2021-05-04 10:25] LABS: PTHIN 120.8 pg/mL (18.4-80.1)
[2021-05-04 10:32] LABS: BUN 28 mg/dL (7-18); Creatinine, Serum 1.23 mg/dL (0.55-1.02); Glucose 93 mg/dL (74-106)
[2021-05-04 10:33] LABS: AST(SGOT) 16 U/L (15-37); Alanine Aminotransfer ALT/SGPT 23 U/L (13-56); Albumin, Serum 3.3 g/dL (3.2-5.0); Alkaline Phosphatase 165 U/L (45-117); Anion Gap 6 (5-15); BUN/Creat Ratio 22.8 RATIO (10-20); Calcium,Total 10.6 mg/dL (8.5-10.1); Chloride 113 mmol/L (98-107); EST Glomerular Filtration Rate 48 mL/min (>60); Est Glom Filt Rate - Afr Amer 58 mL/min (>60); Magnesium 1.6 mg/dL (1.6-2.6); Phosphorus 2.6 mg/dL (2.5-4.9); Potassium 4.4 mmol/L (3.5-5.1); Sodium Level 141 mmol/L (136-145); Uric Acid 3.9 mg/dL (2.6-6.0)
[2021-05-04 10:39] LABS: Protein, Urine (Random) 15.3 mg/dL (<11.9); Protein:Creat Ratio 172 mg/g CRE (0-200)
[2021-05-11 20:52] LABS: CMV by PCR Negative (Negative); Tacrolimus (FK506) 6.2 ng/mL (2.0-20.0)
== END 2021-05-05 18:00 | disposition home or self-care (01) ==
LOC: MTLAB 06:55
PROVIDERS: PCP Family Medicine
DX: D84.9 Immunodeficiency, unspecified (principal); D50.9 Iron deficiency anemia, unspecified; Z94.0 Kidney transplant status; Z79.899 Other long term (current) drug therapy
CPT/HCPCS: 36415; 80048; 80051; 80197; 82040; 82247; 82565; 82570; 82947; 83735; 83970; 84075; 84100; 84156; 84450; 84460; 84520; 84550; 85027; 87496

== ENCOUNTER 2021-06-01 07:00 | Outpatient (RCR) | payer MEDICARE, OTHER, SELFPAY ==
[2021-05-06 04:09] VITALS: BMI 27.0
[2021-05-18 10:15] LABS: Hematocrit 38.4 % (37-47); Hemoglobin 11.5 g/dL (12.0-15.0); Mean Corp Hgb Conc 29.9 g/dL (32-36); Mean Corpuscular Hgb 28.3 pg (27.0-32.0); Mean Corpuscular Volume 94.6 fL (81-99); Mean Platelet Vol. 9.8 fl (6.2-12.0); Platelet Count 393 K/mm3 (150-450); RBC Distribution Width CV 13.4 % (11.6-14.6); RBC Distribution Width SD 46.4 fl (35.1-43.9); Red Blood Count 4.06 M/mm3 (4.2-5.4); White Blood Count 5.3 K/mm3 (4.4-11.0)
[2021-05-18 10:41] LABS: Anion Gap 7 (5-15); BUN 22 mg/dL (7-18); Chloride 112 mmol/L (98-107); Creatinine, Serum 1.17 mg/dL (0.55-1.02); EST Glomerular Filtration Rate 50 mL/min (>60); Est Glom Filt Rate - Afr Amer 61 mL/min (>60); Glucose 84 mg/dL (74-106); Potassium 4.2 mmol/L (3.5-5.1); Sodium Level 142 mmol/L (136-145)
[2021-05-21 07:26] LABS: Tacrolimus (FK506) 6.5 ng/mL (2.0-20.0)
[2021-06-01 11:30] LABS: Hematocrit 35.5 % (37-47); Hemoglobin 11.2 g/dL (12.0-15.0); Hemoglobin A1c 5.2 % (3.8-5.6); Mean Corp Hgb Conc 31.5 g/dL (32-36); Mean Corpuscular Hgb 29.5 pg (27.0-32.0); Mean Corpuscular Volume 93.4 fL (81-99); Mean Platelet Vol. 10.3 fl (6.2-12.0); Platelet Count 344 K/mm3 (150-450); RBC Distribution Width CV 13.2 % (11.6-14.6); RBC Distribution Width SD 45.1 fl (35.1-43.9); White Blood Count 3.8 K/mm3 (4.4-11.0)
[2021-06-01 11:31] LABS: Protein, Urine (Random) 11.7 mg/dL (<11.9); Protein:Creat Ratio 151 mg/g CRE (0-200)
[2021-06-01 11:45] LABS: AST(SGOT) 14 U/L (15-37); Alanine Aminotransfer ALT/SGPT 23 U/L (13-56); Albumin, Serum 3.4 g/dL (3.2-5.0); Anion Gap 7 (5-15); BUN 23 mg/dL (7-18); BUN/Creat Ratio 20.2 RATIO (10-20); Calcium,Total 10.3 mg/dL (8.5-10.1); Chloride 114 mmol/L (98-107); Cholesterol 149 mg/dL (200); Creatinine, Serum 1.14 mg/dL (0.55-1.02); EST Glomerular Filtration Rate 52 mL/min (>60); Est Glom Filt Rate - Afr Amer 63 mL/min (>60); Ferritin 1953 ng/mL (8-252); Glucose 93 mg/dL (74-106); High Density Lipoprotein 73 mg/dL; Iron 79 ug/dL (50-170); Iron Binding Capacity,Total 221 ug/dL (250-450); Magnesium 1.8 mg/dL (1.6-2.6); PERCENT IRON SATURATION 35.7 % (15.0-55.0); Potassium 4.6 mmol/L (3.5-5.1); Sodium Level 142 mmol/L (136-145); Triglycerides 107 mg/dL; Uric Acid 4.3 mg/dL (2.6-6.0)
[2021-06-01 12:09] LABS: PTHIN 314.9 pg/mL (18.4-80.1)
[2021-06-05 11:13] LABS: CMV by PCR Negative (Negative); Tacrolimus (FK506) 6.5 ng/mL (2.0-20.0); Transferrin 163 mg/dL (192-364)
== END 2021-06-06 18:00 | disposition home or self-care (01) ==
LOC: MTLAB 07:00
PROVIDERS: PCP Family Medicine
DX: Z48.298 Encounter for aftercare following other organ transplant (principal); D84.9 Immunodeficiency, unspecified; D50.9 Iron deficiency anemia, unspecified; Z94.0 Kidney transplant status; Z79.899 Other long term (current) drug therapy
CPT/HCPCS: 36415; 80048; 80051; 80061; 80197; 82040; 82247; 82465; 82565; 82570; 82728; 82947; 83036; 83540; 83550; 83718; 83735; 83970; 84156; 84450; 84460; 84466; 84478; 84520; 84550; 85027; 87496

== ENCOUNTER 2021-06-11 15:57 | Outpatient (CLI) | payer MEDICARE, OTHER, SELFPAY | END 2021-06-11 23:59 | disposition short-term general hospital (02) | PROVIDERS: PCP Family Medicine; Visit Provider Nurse Practitioner Family | DX: Z11.52 Encounter for screening for COVID-19 (principal) | CPT/HCPCS: 87635; U0003; U0005 ==

== ENCOUNTER 2021-06-29 07:01 | Outpatient (RCR) | payer MEDICARE, OTHER, SELFPAY ==
[2021-06-07 18:21] VITALS: BMI 27.0
[2021-06-15 10:02] LABS: Hematocrit 39.3 % (37-47); Hemoglobin 11.8 g/dL (12.0-15.0); Mean Corpuscular Hgb 27.9 pg (27.0-32.0); Mean Corpuscular Volume 92.9 fL (81-99); Mean Platelet Vol. 9.6 fl (6.2-12.0); Platelet Count 368 K/mm3 (150-450); RBC Distribution Width CV 12.9 % (11.6-14.6); RBC Distribution Width SD 43.8 fl (35.1-43.9); Red Blood Count 4.23 M/mm3 (4.2-5.4); White Blood Count 4.5 K/mm3 (4.4-11.0)
[2021-06-15 10:16] LABS: Anion Gap 6 (5-15); BUN 18 mg/dL (7-18); Chloride 110 mmol/L (98-107); Creatinine, Serum 1.13 mg/dL (0.55-1.02); EST Glomerular Filtration Rate 53 mL/min (>60); Est Glom Filt Rate - Afr Amer 64 mL/min (>60); Glucose 102 mg/dL (74-106); Potassium 4.1 mmol/L (3.5-5.1); Sodium Level 140 mmol/L (136-145)
[2021-06-17 15:52] LABS: Tacrolimus (FK506) 7.9 ng/mL (2.0-20.0)
[2021-06-29 10:24] LABS: Hematocrit 38.4 % (37-47); Hemoglobin 11.8 g/dL (12.0-15.0); Mean Corp Hgb Conc 30.7 g/dL (32-36); Mean Corpuscular Hgb 28.4 pg (27.0-32.0); Mean Corpuscular Volume 92.3 fL (81-99); Mean Platelet Vol. 10.1 fl (6.2-12.0); Platelet Count 372 K/mm3 (150-450); RBC Distribution Width CV 13.2 % (11.6-14.6); RBC Distribution Width SD 44.5 fl (35.1-43.9); Red Blood Count 4.16 M/mm3 (4.2-5.4); White Blood Count 4.7 K/mm3 (4.4-11.0)
[2021-06-29 10:46] LABS: Protein, Urine (Random) 13.8 mg/dL (<11.9); Protein:Creat Ratio 129 mg/g CRE (0-200)
[2021-06-29 10:53] LABS: AST(SGOT) 13 U/L (15-37); Alanine Aminotransfer ALT/SGPT 21 U/L (13-56); Albumin, Serum 3.7 g/dL (3.2-5.0); Alkaline Phosphatase 148 U/L (45-117); Anion Gap 6 (5-15); BUN 19 mg/dL (7-18); BUN/Creat Ratio 16.7 RATIO (10-20); Calcium,Total 11.1 mg/dL (8.5-10.1); Chloride 112 mmol/L (98-107); Creatinine, Serum 1.14 mg/dL (0.55-1.02); EST Glomerular Filtration Rate 52 mL/min (>60); Est Glom Filt Rate - Afr Amer 63 mL/min (>60); Glucose 107 mg/dL (74-106); Phosphorus 2.5 mg/dL (2.5-4.9); Potassium 4.3 mmol/L (3.5-5.1); Sodium Level 142 mmol/L (136-145); Uric Acid 4.2 mg/dL (2.6-6.0)
[2021-06-29 10:55] LABS: PTHIN 279.7 pg/mL (18.4-80.1)
[2021-07-07 09:42] LABS: CMV by PCR Negative (Negative); Tacrolimus (FK506) 6.5 ng/mL (2.0-20.0)
== END 2021-07-06 18:00 | disposition home or self-care (01) ==
LOC: MTLAB 07:01
PROVIDERS: PCP Family Medicine
DX: Z94.0 Kidney transplant status (principal); D84.9 Immunodeficiency, unspecified; D50.9 Iron deficiency anemia, unspecified; Z79.899 Other long term (current) drug therapy
CPT/HCPCS: 36415; 80048; 80051; 80197; 82040; 82247; 82565; 82570; 82947; 83735; 83970; 84075; 84100; 84156; 84450; 84460; 84520; 84550; 85027; 87496

== ENCOUNTER 2021-07-27 06:56 | Outpatient (RCR) | payer MEDICARE, OTHER, SELFPAY ==
[2021-07-07 01:45] VITALS: BMI 27.0
[2021-07-13 10:07] LABS: Hematocrit 37.9 % (37-47); Hemoglobin 11.9 g/dL (12.0-15.0); Mean Corp Hgb Conc 31.4 g/dL (32-36); Mean Corpuscular Hgb 28.5 pg (27.0-32.0); Mean Corpuscular Volume 90.9 fL (81-99); Platelet Count 406 K/mm3 (150-450); RBC Distribution Width SD 42.7 fl (35.1-43.9); Red Blood Count 4.17 M/mm3 (4.2-5.4); White Blood Count 4.2 K/mm3 (4.4-11.0)
[2021-07-13 10:23] LABS: Anion Gap 4 (5-15); BUN 20 mg/dL (7-18); Chloride 113 mmol/L (98-107); Creatinine, Serum 1.27 mg/dL (0.55-1.02); EST Glomerular Filtration Rate 46 mL/min (>60); Est Glom Filt Rate - Afr Amer 56 mL/min (>60); Glucose 119 mg/dL (74-106); Potassium 4.4 mmol/L (3.5-5.1); Sodium Level 141 mmol/L (136-145)
[2021-07-16 21:05] LABS: Tacrolimus (FK506) 7.7 ng/mL (2.0-20.0)
[2021-07-27 10:00] LABS: Hematocrit 38.4 % (37-47); Hemoglobin 12.2 g/dL (12.0-15.0); Mean Corp Hgb Conc 31.8 g/dL (32-36); Mean Corpuscular Hgb 29.2 pg (27.0-32.0); Mean Corpuscular Volume 91.9 fL (81-99); Mean Platelet Vol. 10.1 fl (6.2-12.0); Platelet Count 395 K/mm3 (150-450); RBC Distribution Width SD 43.6 fl (35.1-43.9); Red Blood Count 4.18 M/mm3 (4.2-5.4); White Blood Count 3.8 K/mm3 (4.4-11.0)
[2021-07-27 10:14] LABS: PTHIN 153.2 pg/mL (18.4-80.1)
[2021-07-27 10:31] LABS: AST(SGOT) 12 U/L (15-37); Alanine Aminotransfer ALT/SGPT 21 U/L (13-56); Albumin, Serum 3.7 g/dL (3.2-5.0); Alkaline Phosphatase 137 U/L (45-117); Anion Gap 6 (5-15); BUN 21 mg/dL (7-18); BUN/Creat Ratio 17.6 RATIO (10-20); Calcium,Total 10.7 mg/dL (8.5-10.1); Chloride 111 mmol/L (98-107); Creatinine, Serum 1.19 mg/dL (0.55-1.02); EST Glomerular Filtration Rate 49 mL/min (>60); Est Glom Filt Rate - Afr Amer 60 mL/min (>60); Glucose 105 mg/dL (74-106); Potassium 4.3 mmol/L (3.5-5.1); Sodium Level 139 mmol/L (136-145); Uric Acid 4.2 mg/dL (2.6-6.0)
[2021-07-27 10:32] LABS: Protein, Urine (Random) 13.7 mg/dL (<11.9); Protein:Creat Ratio 107 mg/g CRE (0-200)
[2021-07-31 16:40] LABS: CMV by PCR Negative (Negative); Tacrolimus (FK506) 8.9 ng/mL (2.0-20.0)
== END 2021-07-27 23:59 | disposition home or self-care (01) ==
LOC: MTLAB 06:56
PROVIDERS: PCP Family Medicine
DX: Z48.298 Encounter for aftercare following other organ transplant (principal); D84.9 Immunodeficiency, unspecified; D50.9 Iron deficiency anemia, unspecified; Z94.0 Kidney transplant status; Z79.899 Other long term (current) drug therapy
CPT/HCPCS: 36415; 80048; 80051; 80197; 82040; 82247; 82565; 82570; 82947; 83735; 83970; 84075; 84100; 84156; 84450; 84460; 84520; 84550; 85027; 87496

== ENCOUNTER 2021-08-01 09:53 | Emergency (ER) | payer MEDICARE, OTHER, SELFPAY ==
[2021-08-01 09:54] VITALS: BP 164/87; PULSE 85; RESP 16; TEMP 36.3; O2SAT 100; BMI 34.2
--- NOTE | 2021-08-01 10:06 | CT_ITS ---
HISTORY: Pain. TECHNIQUE: Helically acquired images were obtained of the abdomen and pelvis without oral or IV contrast. A radiation dose optimization technique was used for this scan. # of images incl. paperwork: [id number]. COMPARISON: 03/27/2020. FINDINGS: LUNG BASES: Clear. Decreased paracardiac lymphadenopathy. BOWEL: Mild hiatal hernia. Bowel including appendix nondilated. Colonic diverticulosis without pericolonic inflammation. PERITONEUM: No significant ascites. LIVER/BILIARY TRACT: Numerous hepatic cysts. Left lobe atrophy with calcifications identified.Cholecystectomy. SPLEEN/PANCREAS: Non-enlarged. KIDNEYS: Interval right iliac transplant kidney. No hydronephrosis. Bilateral nephrectomies. ADRENAL GLANDS: No nodules. VESSELS: No abdominal aortic aneurysm. Mild atherosclerosis. PELVIC ORGANS: Small pedunculated calcified uterine leiomyoma again seen. ABDOMINAL WALL: Mild anterior scarring with tiny fat-containing ventral hernias. BONES: Mild degenerative change. CT/Abdomen/Pelvis without Cont IMPRESSION: Interval right renal transplant without hydronephrosis. Bilateral nephrectomies. Numerous cysts throughout the liver. Left hepatic lobe atrophy with calcifications. Colonic diverticulosis without acute diverticulitis. Individualized dose optimization techniques were used for this CT. at 1116 Reported and signed by: Andreia Chan MD Electronically Signed: Andreia Chan MD at 11:15 EST Reading Location ID and State: [facility] / [place] Tel , Service support ,
--- NOTE | 2021-08-01 10:07 | EDS_ITS ---
HPI HPI - GI History of Present Illness Chief Complaint: Flank Pain Narrative Narrative: Patient presents with her because of possible kidney infection. Of significance, she is a renal transplant from [facility]. She had polycystic kidney disease and had bilateral nephrectomy performed with kidney transplant in September of last year. She states she has never had an infection. She denies any fevers or chills, no nausea or vomiting but states her right lower quadrant where they placed her transplant feels achy. She has not noticed any blood in her urine but has been up several times in the night with urinary frequency. She states that she called the [facility] and they were told to come to the emergency department for work-up and as needed a doctor to Consult could be performed. 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) Anemia Chronic pain Elevated troponin I level (04/25/20) End stage renal failure on dialysis Essential (primary) hypertension Gout Hay fever Hemodialysis patient LLQ abdominal pain Non-ischemic cardiomyopathy Polycystic kidney disease Sepsis Home Medications allopurinol 100 mg PO MOWEFR 09/01/16 [History Last Taken 03/21/20 10:00] oxycodone 5 - 10 mg PO Q4H PRN PRN 09/01/16 [History Last Taken Unknown] albuterol sulfate 90 mcg/actuation aerosol inhaler 2 puff INHALATION Q6H PRN 12/27/19 [History Last Taken Unknown] ondansetron HCl 4 mg PO Q6H PRN PRN #30 tab 03/27/20 [Rx Last Taken Unknown] aspirin 81 mg tablet,delayed release 81 mg PO DAILY 07/15/20 [History Last Taken Unknown] diclofenac sodium 1 % topical gel 2 g TOPICAL ONCE 01/15/21 [History Last Taken Unknown] metoprolol tartrate 25 mg tablet 25 mg PO BID 01/15/21 [History Last Taken Unknown] mycophenolate sodium 360 mg tablet,delayed release 720 mg PO BID 01/15/21 [History Last Taken Unknown] sodium bicarbonate 650 mg tablet 650 mg PO BID 01/15/21 [History Last Taken Unknown] sulfamethoxazole 800 mg-trimethoprim 160 mg tablet 1 tab PO DAILY tab 01/15/21 [History Last Taken Unknown] tacrolimus 1 mg capsule, immediate-release 1 mg PO Q12H 01/15/21 [History Last Taken Unknown] atorvastatin 20 mg tablet 20 mg PO QHS #90 tab 04/13/21 [Rx Last Taken Unknown] ciprofloxacin HCl 500 mg PO BID #14 tab 08/01/21 [Rx Last Taken Unknown] Allergy/AdvReac Type Severity Reaction Status Date / Time cephalexin Allergy Mild rash Verified 08/01/21 09:56 Penicillins Allergy Rash Verified 08/01/21 09:56 codeine AdvReac Nausea Verified 08/01/21 09:56 Family History Father Aneurysm Kidney disease Surgical History History of History of cholecystectomy History of left heart catheterization (06/30/20) History of left nephrectomy History of right nephrectomy Renal transplant recipient (09/11/20) s/p port placement Social History Smoking Status: Never smoker alcohol intake: never substance use type: does not use caffeine: Yes what type of physical activity do you participate in: none seatbelt use: always do you feel safe at home: Yes additional social history: Lqdrrxe-Czmsds-Nwaju Rite ROS ROS ED ROS Narrative Constitutional: No fever, no chills. HEENT: No sore throat. No neck pain. No loss of vision. No rhinorrhea. Cardiovascular: No chest pain. No palpitations. No pedal edema. Respiratory: No cough, no shortness of breath. Abdominal: Right lower quadrant achiness/abdominal pain. No nausea. No vomiting. Genitourinary: No dysuria. No hematuria. Positive urinary frequency. Musculoskeletal: No myalgias. No arthralgias. Neurologic: No headaches. No dizziness. No lightheadedness. Skin: No rash. No change in color. Psychiatric: No depression. No anxiety. EXAM Physical Exam Narrative Exam Narrative: Afebrile. Vital signs noted. HEENT: Normocephalic. Atraumatic. PERRL, EOMI. Neck soft and supple. No point tenderness or step off. Cardiovascular: Regular rate and rhythm. No murmurs, rubs, or gallops appreciated. Respiratory: No tachypnea. Lungs clear to auscultation bilaterally. Gastrointestinal: Abdomen soft, nontender, with normoactive bowel sounds. No rebound or guarding. Neurological: Awake. Alert. Nonfocal, nonlateralizing. Skin: No rash. Normal color. No pallor. Musculoskeletal: No pedal edema. Full range of motion extremities. Const Vital Signs: 08/01/21 09:54 08/01/21 12:09 Temperature 97.4 F L 97.9 F Temperature Source Temporal Oral Pulse Rate 85 80 Respiratory Rate 16 16 Blood Pressure 164/87 H 160/90 H Blood Pressure Mean 112 113 Pulse Ox 100 Oxygen Delivery Method Room Air MDM MDM MDM Narrative Medical decision making narrative: Comprehensive work-up was pursued. Given her kidney transplant I will obtain CT imaging without IV contrast so as to prevent any nephropathy. I will also perform a CBC, BMP, and urinalysis. She was bolused IV fluids. Patient has a normal white count of 4.7, hemoglobin stable at 12.2, normal platelet count of 326. Her electrolyte panel shows her creatinine to be at her baseline of 1.2. Chloride slightly elevated at 110. Urinalysis shows WBCs 10-25 with a rare bacteria. Her CT of her abdomen and pelvis without contrast shows no evidence of hydronephrosis or ureterolithiasis. At this point in time, after a small dose of morphine intramuscularly, I discussed the patient with the [facility] transplant team, Dr. Marcial, who agrees with urine culture and placing the patient on ciprofloxacin given her allergies to penicillin and cephalexin. I feel she be discharged safely home with follow-up. Return instructions to the emergency department were reviewed. Disposition is discharged home in stable condition. Lab Data Attestation: I reviewed the patient's lab results. Labs: Laboratory Results - last 24 hr 08/01/21 08/01/21 08/01/21 10:20 10:20 10:55 WBC 4.7 RBC 4.15 L Hgb 12.2 Hct 37.4 MCV 90.1 MCH 29.4 MCHC 32.6 RDW Std Deviation 41.7 RDW Coeff of Radha 12.7 Plt Count 326 MPV 9.5 Neut % (Auto) Not Reportable Absolute Neuts (auto) 4.1 Absolute Lymphs (auto) 0.23 L Total Counted 100 Neutrophils % (Manual) 82 H Band Neutrophils % 6 H Lymphocytes % (Manual) 5 L Monocytes % (Manual) 1 Eosinophils % (Manual) 3 Metamyelocytes % 3 H Diff Path Review May foll Platelet Estimate ADEQUATE RBC Morphology NORM C+C Sodium 139 Potassium 4.6 Chloride 110 H Carbon Dioxide 26.0 Anion Gap 3 L BUN 19 H Creatinine 1.21 H Estim Creat Clear Calc 36.40 Est GFR (MDRD) Af Amer 59 L Est GFR (MDRD) Non-Af 49 L BUN/Creatinine Ratio 15.7 Glucose 109 H Calcium 10.5 H Urine Color Yellow Urine Clarity Clear Urine pH 5.0 Ur Specific [place] 1.010 Urine Protein Negative Urine Glucose (UA) Normal Urine Ketones Negative Urine Occult Blood 10 H Urine Nitrite Negative Urine Bilirubin Negative Urine Urobilinogen Normal Ur Leukocyte Esterase 100 H Urine RBC 0 SEEN Urine WBC 10-25 SEEN Ur Squamous Epith Cells 0-5 SEEN Urine Bacteria RARE Urine Mucus 0 SEEN Discharge Plan Triage Chief Complaint: Flank Pain ED Provider: Alfonso Clement Dx/Rx/DC Orders Clinical Impression: UTI (urinary tract infection), History of kidney transplant Instructions: Understanding Urinary Tract ..., ED CYSTITIS Female Adult Prescriptions: New ciprofloxacin HCl 500 mg tablet 500 mg PO BID Qty: 14 RF: 0 No Action albuterol sulfate 90 mcg/actuation HFA aerosol inhaler 2 puff INHALATION Q6H PRN (Reason: Wheezing) RF: 0 sodium bicarbonate 650 mg tablet 650 mg PO BID RF: 0 tacrolimus 1 mg capsule 1 mg PO Q12H RF: 0 metoprolol tartrate 25 mg tablet 25 mg PO BID RF: 0 mycophenolate sodium 360 mg tablet,delayed release (DR/EC) 720 mg PO BID RF: 0 sulfamethoxazole-trimethoprim [Bactrim DS] 800-160 mg tablet 1 tab PO DAILY RF: 0 diclofenac sodium 1 % gel 2 g topical ONCE RF: 0 allopurinol 100 MG tablet 100 mg PO MOWEFR RF: 0 oxycodone 5 MG tablet 5 - 10 mg PO Q4H PRN PRN (Reason: Pain) RF: 0 ondansetron HCl 4 MG tablet 4 mg PO Q6H PRN PRN (Reason: Nausea) Qty: 30 RF: 0 aspirin [Adult Aspirin Regimen] 81 mg tablet,delayed release (DR/EC) 81 mg PO DAILY RF: 0 atorvastatin 20 mg tablet 20 mg PO QHS Qty: 90 RF: 3 Primary Care Provider: Raphael Russell Referrals: Raphael Russell MD [Primary Care Provider] - 3-5 Days if not improving Activity Restrictions/Additional Instructions: Follow-up with the [facility] kidney transplant team in the next few days via telephone, or as needed Disposition Disposition: Home, Self Care
[2021-08-01] MEDS: 0.9% Normal Saline 1,000 ML 1000 ML IV (10:24)
[2021-08-01 10:30] LABS: Hematocrit 37.4 % (37-47); Hemoglobin 12.2 g/dL (12.0-15.0); Mean Corp Hgb Conc 32.6 g/dL (32-36); Mean Corpuscular Hgb 29.4 pg (27.0-32.0); Mean Corpuscular Volume 90.1 fL (81-99); Mean Platelet Vol. 9.5 fl (6.2-12.0); POSITIVE COUNT YES; POSITIVE DIFFERENTIAL YES; POSITIVE MORPHOLOGY YES; Platelet Count 326 K/mm3 (150-450); RBC Distribution Width CV 12.7 % (11.6-14.6); RBC Distribution Width SD 41.7 fl (35.1-43.9); Red Blood Count 4.15 M/mm3 (4.2-5.4); White Blood Count 4.7 K/mm3 (4.4-11.0)
[2021-08-01 10:33] LABS: Differential Indicated MANUAL DIFF
[2021-08-01 10:48] LABS: Anion Gap 3 (5-15); BUN 19 mg/dL (7-18); BUN/Creat Ratio 15.7 RATIO (10-20); Calcium,Total 10.5 mg/dL (8.5-10.1); Chloride 110 mmol/L (98-107); Creatinine, Serum 1.21 mg/dL (0.55-1.02); EST Glomerular Filtration Rate 49 mL/min (>60); Est Glom Filt Rate - Afr Amer 59 mL/min (>60); Glucose 109 mg/dL (74-106); Potassium 4.6 mmol/L (3.5-5.1); Sodium Level 139 mmol/L (136-145)
[2021-08-01 11:01] LABS: Mucous, Urine 0 SEEN /hpf (<or=2+); Red Blood Cells-Urine 0 SEEN /hpf (0-5)
[2021-08-01 11:01] LABS: Eosinophil 3 % (0-5); Lymphocyte 5 % (19-41); Metamyelocyte 3 % (0-1); Monocyte 1 % (0-10); Neutrophil-Band 6 % (0-5); Neutrophil-Segmented 82 % (47-70); Platelet Estimate ADEQUATE (ADEQ); Red Cell Morphology NORM C+C NORMAL (NORM C&C); Total Cells Counted 100 (MANUAL DIFF)
[2021-08-01 11:02] LABS: Absolute Lymphocyte Count 0.23 X10^3/uL (0.83-4.51); Absolute Neutrophil Count 4.1 X10^3/uL (2.0-7.7); Lymphocyte # 0.23 X10^3/ul (0.83-4.51); Neutrophil # 4.13 X10^3/uL (2.7-7.7)
[2021-08-01 11:08] LABS: Color, Urine Yellow (Yellow); Glucose, Dipstick Normal (Normal); Ketone-Dipstick Negative (Negative); Leukocyte Esterase-Dipstick 100 /ul (Negative); Nitrite-Dipstick Negative (Negative); Occult Blood-Urine 10 /ul (Negative); Protein-Dipstick Negative (Negative); Urine Bilirubin Dipstick Negative (Negative); Urine Clarity Clear (Clear); Urine Urobilinogen Normal (Normal)
[2021-08-01 11:13] LABS: Bacteria RARE /hpf (None Seen); White Blood Cells 10-25 SEEN /hpf (0-5)
[2021-08-01 11:14] LABS: Squamous Epithelial Cells - UA 0-5 SEEN /hpf (5-10)
[2021-08-01] MEDS: Morphine 4 MG/ML Syringe IV (12:03)
[2021-08-01 12:09] VITALS: BP 160/90; PULSE 80; RESP 16; TEMP 36.6
--- NOTE | 2021-08-01 12:20 | ED.RN ---
Pt IV infiltrated, physician aware and no new IV needed. Patient medicated with Morphine IM instead of ordered IV, Dr. Clement approved.
[2021-08-01] MEDS: Ciprofloxacin 500 MG Tablet PO (12:31)
[2021-08-01 12:40] VITALS: PULSE 80; RESP 16
[2021-08-04 10:20] LABS: Pathologist Review Reviewed
== END 2021-08-01 12:50 | disposition home or self-care (01) ==
PROVIDERS: Emergency Provider Emergency Medicine; PCP Family Medicine; Visit Provider Emergency Medicine
DX: N39.0 Urinary tract infection, site not specified (principal); I13.2 Hypertensive heart and chronic kidney disease with heart failure and with stage 5 chronic kidney disease, or end stage renal disease; Z99.2 Dependence on renal dialysis; I50.43 Acute on chronic combined systolic (congestive) and diastolic (congestive) heart failure; I12.0 Hypertensive chronic kidney disease with stage 5 chronic kidney disease or end stage renal disease; N18.6 End stage renal disease; Z94.0 Kidney transplant status; M10.9 Gout, unspecified
CPT/HCPCS: 74176; 80048; 81001; 85025; 87086; 87088; 87186; 99284; J7030

== ENCOUNTER 2021-08-24 07:00 | Outpatient (RCR) | payer MEDICARE, OTHER, SELFPAY ==
[2021-08-04 10:19] VITALS: BMI 27.0
[2021-08-10 10:26] LABS: Hematocrit 37.4 % (37-47); Hemoglobin 11.9 g/dL (12.0-15.0); Mean Corp Hgb Conc 31.8 g/dL (32-36); Mean Corpuscular Hgb 28.5 pg (27.0-32.0); Mean Corpuscular Volume 89.7 fL (81-99); POSITIVE COUNT YES; POSITIVE MORPHOLOGY YES; Platelet Count 436 K/mm3 (150-450); RBC Distribution Width CV 12.8 % (11.6-14.6); RBC Distribution Width SD 41.4 fl (35.1-43.9); Red Blood Count 4.17 M/mm3 (4.2-5.4)
[2021-08-10 10:33] LABS: Anion Gap 4 (5-15); BUN 17 mg/dL (7-18); Chloride 111 mmol/L (98-107); Creatinine, Serum 1.34 mg/dL (0.55-1.02); EST Glomerular Filtration Rate 43 mL/min (>60); Est Glom Filt Rate - Afr Amer 52 mL/min (>60); Glucose 112 mg/dL (74-106); Potassium 4.6 mmol/L (3.5-5.1); Sodium Level 139 mmol/L (136-145)
[2021-08-10 10:36] LABS: Differential Indicated MANUAL DIFF
[2021-08-10 11:10] LABS: Basophil 2 % (0-1); Eosinophil 4 % (0-5); Lymphocyte 21 % (19-41); Metamyelocyte 4 % (0-1); Monocyte 4 % (0-10); Myelocyte 1 % (0-0); Neutrophil-Band 5 % (0-5); Neutrophil-Segmented 59 % (47-70); Total Cells Counted 100 (MANUAL DIFF)
[2021-08-10 11:13] LABS: Platelet Estimate SLT INC (ADEQ); Red Cell Morphology NORM C+C NORMAL (NORM C&C)
[2021-08-10 11:14] LABS: Absolute Neutrophil Count 2.5 X10^3/uL (2.0-7.7); Neutrophil # 2.46 X10^3/uL (2.7-7.7)
[2021-08-10 11:15] LABS: Absolute Lymphocyte Count 0.85 X10^3/uL (0.83-4.51); Lymphocyte # 0.85 X10^3/ul (0.83-4.51)
[2021-08-11 10:12] LABS: Pathologist Review Reviewed
[2021-08-12 14:42] LABS: Tacrolimus (FK506) 9.1 ng/mL (2.0-20.0)
[2021-08-24 09:54] LABS: Hematocrit 36.5 % (37-47); Hemoglobin 11.7 g/dL (12.0-15.0); Mean Corp Hgb Conc 32.1 g/dL (32-36); Mean Corpuscular Volume 90.3 fL (81-99); Mean Platelet Vol. 10.1 fl (6.2-12.0); Platelet Count 304 K/mm3 (150-450); RBC Distribution Width CV 13.1 % (11.6-14.6); RBC Distribution Width SD 43.1 fl (35.1-43.9); Red Blood Count 4.04 M/mm3 (4.2-5.4); White Blood Count 4.2 K/mm3 (4.4-11.0)
[2021-08-24 10:05] LABS: Protein, Urine (Random) 30.9 mg/dL (<11.9); Protein:Creat Ratio 127 mg/g CRE (0-200)
[2021-08-24 10:11] LABS: PTHIN 182.8 pg/mL (18.4-80.1)
[2021-08-24 10:17] LABS: Hemoglobin A1c 5.9 % (3.8-5.6)
[2021-08-24 10:37] LABS: AST(SGOT) 14 U/L (15-37); Alanine Aminotransfer ALT/SGPT 22 U/L (13-56); Albumin, Serum 3.3 g/dL (3.2-5.0); Alkaline Phosphatase 146 U/L (45-117); Anion Gap 4 (5-15); BUN 19 mg/dL (7-18); BUN/Creat Ratio 15.1 RATIO (10-20); Calcium,Total 9.8 mg/dL (8.5-10.1); Chloride 115 mmol/L (98-107); Cholesterol 139 mg/dL (200); Creatinine, Serum 1.26 mg/dL (0.55-1.02); EST Glomerular Filtration Rate 46 mL/min (>60); Est Glom Filt Rate - Afr Amer 56 mL/min (>60); Ferritin 2198 ng/mL (8-252); Glucose 103 mg/dL (74-106); High Density Lipoprotein 61 mg/dL; Iron 87 ug/dL (50-170); Iron Binding Capacity,Total 168 ug/dL (250-450); Magnesium 1.4 mg/dL (1.6-2.6); PERCENT IRON SATURATION 51.8 % (15.0-55.0); Phosphorus 1.9 mg/dL (2.5-4.9); Potassium 3.9 mmol/L (3.5-5.1); Sodium Level 142 mmol/L (136-145); Triglycerides 151 mg/dL; Uric Acid 4.4 mg/dL (2.6-6.0); Very Low Density Lipoprotein 30 mg/dL (5-40)
[2021-08-27 20:40] LABS: CMV by PCR Negative (Negative); Tacrolimus (FK506) 9.6 ng/mL (2.0-20.0); Transferrin 143 mg/dL (192-364)
== END 2021-09-03 18:00 | disposition home or self-care (01) ==
LOC: MTLAB 07:00
PROVIDERS: PCP Family Medicine
DX: Z48.298 Encounter for aftercare following other organ transplant (principal); D84.9 Immunodeficiency, unspecified; D50.9 Iron deficiency anemia, unspecified; Z94.0 Kidney transplant status; Z79.899 Other long term (current) drug therapy
CPT/HCPCS: 36415; 80048; 80051; 80061; 80197; 82040; 82247; 82565; 82570; 82728; 82947; 83036; 83540; 83550; 83735; 83970; 84075; 84100; 84156; 84450; 84460; 84466; 84520; 84550; 85025; 85027; 87496

== ENCOUNTER 2021-09-07 07:00 | Outpatient (RCR) | payer MEDICARE, OTHER, SELFPAY ==
[2021-09-04 03:01] VITALS: BMI 27.0
[2021-09-07 10:15] LABS: Hematocrit 32.8 % (37-47); Hemoglobin 10.1 g/dL (12.0-15.0); Mean Corp Hgb Conc 30.8 g/dL (32-36); Mean Corpuscular Hgb 27.9 pg (27.0-32.0); Mean Corpuscular Volume 90.6 fL (81-99); Mean Platelet Vol. 9.9 fl (6.2-12.0); Platelet Count 414 K/mm3 (150-450); RBC Distribution Width CV 13.4 % (11.6-14.6); RBC Distribution Width SD 44.4 fl (35.1-43.9); Red Blood Count 3.62 M/mm3 (4.2-5.4); White Blood Count 3.8 K/mm3 (4.4-11.0)
[2021-09-07 10:28] LABS: Anion Gap 7 (5-15); BUN 17 mg/dL (7-18); Chloride 112 mmol/L (98-107); Creatinine, Serum 1.42 mg/dL (0.55-1.02); EST Glomerular Filtration Rate 40 mL/min (>60); Est Glom Filt Rate - Afr Amer 49 mL/min (>60); Glucose 105 mg/dL (74-106); Potassium 4.4 mmol/L (3.5-5.1); Sodium Level 141 mmol/L (136-145)
[2021-09-09 20:39] LABS: Tacrolimus (FK506) 10.3 ng/mL (2.0-20.0)
== END 2021-09-07 18:00 | disposition home or self-care (01) ==
LOC: MTLAB 07:00
PROVIDERS: PCP Family Medicine
DX: Z48.298 Encounter for aftercare following other organ transplant (principal); D84.9 Immunodeficiency, unspecified; D50.9 Iron deficiency anemia, unspecified; Z94.0 Kidney transplant status; Z79.899 Other long term (current) drug therapy
CPT/HCPCS: 36415; 80051; 80197; 82565; 82947; 84520; 85027

== ENCOUNTER 2021-09-09 10:01 | Emergency (ER) | payer MEDICARE, OTHER, SELFPAY ==
[2021-09-09 10:01] VITALS: BP 128/68; PULSE 96; RESP 14; TEMP 37.9; O2SAT 98; BMI 31.4
--- NOTE | 2021-09-09 10:11 | EKG12_ITS ---
Test Reason : FEVER Blood Pressure : / mmHG Vent. Rate : 089 BPM Atrial Rate : 089 BPM P-R Int : 138 ms QRS Dur : 080 ms QT Int : 324 ms P-R-T Axes : 046 -12 048 degrees QTc Int : 394 ms Normal sinus rhythm Inferior infarct , age undetermined ST & T wave abnormality, consider anterior ischemia Abnormal ECG Confirmed by LAMBERTO YING, DAHLIA ([id number]), brands editor EUGENIA BRUNO ([id number]) on 09/16/2021 10:28:53 AM Referred By: STAS Confirmed By:DAHLIA ORANTES MD
--- NOTE | 2021-09-09 10:13 | EX.ED.DYSGE1 ---
HPI History of Present Illness Chief Complaint: Fever Narrative Narrative: Patient with past medical history of kidney transplant secondary to polycystic kidney disease, has been off dialysis for a year, presents with fever, malaise, and fatigue since yesterday. She states she did not feel well yesterday and felt tired. Her reports that her temperature was elevated 102.4 ?F this morning. She was nauseated and vomited once while coming to the ED. She has an occasional cough. She denies any dysuria. No abdominal pain. States she might have mild low back pain with this but denies any hematuria. She presents because of the elevated temperature, and not feeling well. She took cold and flu medication yesterday, but has not taken an antipyretic this morning. Additionally, she states that she received her influenza vaccination, but not her Covid 19 vaccinations. Her symptoms began yesterday. [facility] Medical History 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) Anemia Chronic pain Elevated troponin I level (04/25/20) End stage renal failure on dialysis Essential (primary) hypertension Gout Hay fever Hemodialysis patient LLQ abdominal pain Non-ischemic cardiomyopathy Polycystic kidney disease Sepsis Home Medications allopurinol 100 mg PO MOWEFR 09/01/16 [History Last Taken 03/21/20 10:00] oxycodone 5 - 10 mg PO Q4H PRN PRN 09/01/16 [History Last Taken Unknown] albuterol sulfate 90 mcg/actuation aerosol inhaler 2 puff INHALATION Q6H PRN 12/27/19 [History Last Taken Unknown] ondansetron HCl 4 mg PO Q6H PRN PRN #30 tab 03/27/20 [Rx Last Taken Unknown] aspirin 81 mg tablet,delayed release 81 mg PO DAILY 07/15/20 [History Last Taken Unknown] diclofenac sodium 1 % topical gel 2 g TOPICAL ONCE 01/15/21 [History Last Taken Unknown] metoprolol tartrate 25 mg tablet 25 mg PO BID 01/15/21 [History Last Taken Unknown] mycophenolate sodium 360 mg tablet,delayed release 720 mg PO BID 01/15/21 [History Last Taken Unknown] sodium bicarbonate 650 mg tablet 650 mg PO BID 01/15/21 [History Last Taken Unknown] sulfamethoxazole 800 mg-trimethoprim 160 mg tablet 1 tab PO DAILY tab 01/15/21 [History Last Taken Unknown] tacrolimus 1 mg capsule, immediate-release 1 mg PO Q12H 01/15/21 [History Last Taken Unknown] atorvastatin 20 mg tablet 20 mg PO QHS #90 tab 04/13/21 [Rx Last Taken Unknown] ciprofloxacin HCl 500 mg PO BID #14 tab 08/01/21 [Rx Last Taken Unknown] Allergy/AdvReac Type Severity Reaction Status Date / Time cephalexin Allergy Mild rash Verified 09/09/21 10:04 Penicillins Allergy Rash Verified 09/09/21 10:04 codeine AdvReac Nausea Verified 09/09/21 10:04 Family History Father Aneurysm Kidney disease Surgical History History of History of cholecystectomy History of left heart catheterization (06/30/20) History of left nephrectomy History of right nephrectomy Renal transplant recipient (09/11/20) s/p port placement Social History Smoking Status: Never smoker alcohol intake: never substance use type: does not use caffeine: Yes what type of physical activity do you participate in: none seatbelt use: always do you feel safe at home: Yes additional social history: [employer] ROS ED ROS Narrative Constitutional: Positive fever, elevated temperature of 102.4 ?F, no chills. Positive malaise and fatigue. HEENT: No sore throat. No neck pain. No loss of vision. No rhinorrhea. Cardiovascular: No chest pain. No palpitations. No pedal edema. Respiratory: Occasional nonproductive cough, no shortness of breath. Abdominal: No abdominal pain. No nausea. No vomiting. Genitourinary: No dysuria. No hematuria. Musculoskeletal: No myalgias. No arthralgias. Neurologic: No headaches. No dizziness. No lightheadedness. Skin: No rash. No change in color. Psychiatric: No depression. No anxiety. EXAM Physical Exam Narrative Exam Narrative: Afebrile, but elevated temperature of 100.2 ?F. Vital signs noted. Nontoxic-appearing. HEENT: Normocephalic. Atraumatic. PERRL, EOMI. Neck soft and supple. No point tenderness or step off. Cardiovascular: Regular rate and rhythm. No murmurs, rubs, or gallops appreciated. Respiratory: No tachypnea. Lungs clear to auscultation bilaterally. Gastrointestinal: Abdomen soft, nontender, with normoactive bowel sounds. No rebound or guarding. Neurological: Awake. Alert. Nonfocal, nonlateralizing. Able to transfer from wheelchair to bed independently. Skin: No rash. Normal color. No pallor. Musculoskeletal: No pedal edema. Full range of motion extremities. Const Vital Signs: 09/09/21 10:01 09/09/21 10:39 09/09/21 10:57 Temperature 100.2 F H 100.5 F H Temperature Source Temporal Oral Pulse Rate 96 85 Respiratory Rate 14 26 H Respiratory Pattern Irregular Blood Pressure 128/68 H 117/65 Blood Pressure Mean 88 82 Pulse Ox 98 98 Oxygen Delivery Method Room Air Room Air 09/09/21 11:37 09/09/21 11:47 09/09/21 12:46 Temperature 98.7 F 98.2 F Temperature Source Oral Pulse Rate 73 75 Respiratory Rate 16 23 H Respiratory Pattern Blood Pressure 107/65 99/63 Blood Pressure Mean 79 Pulse Ox 96 96 Oxygen Delivery Method Room Air 09/09/21 12:47 Temperature 98.2 F Temperature Source Oral Pulse Rate Respiratory Rate Respiratory Pattern Blood Pressure Blood Pressure Mean Pulse Ox Oxygen Delivery Method MDM MDM MDM Narrative Medical decision making narrative: Sepsis work-up was pursued. EKG demonstrates normal sinus rhythm at 89 bpm without ectopy or acute ST changes. She was given Tylenol 650 mg orally here. I discussed with the patient and her that the 2 most likely sources would be upper respiratory infection versus urinary tract infection. She was also swabbed for Covid and influenza. She has chronic neutropenia, today it is 3.1, hemoglobin stable at 9.9, platelet count normal at 329. Sodium shows slightly low value at 133, creatinine is at her baseline of 1.48 with a BUN of 17. Lactic acid normal at 1.2. Glucose appropriately elevated at 138. Chest x-ray interpreted by myself shows no acute process, no infiltrate. Her temperature did increase to 100.5 ?F orally. She was administered Tylenol 650 mg orally for this. Upon repeat examination, while awaiting urinalysis, she was bolused 500 mL of normal saline. Her Covid swab and influenza swabs are negative. Urinalysis negative for nitrates with 0-5 WBCs. I do not feel antibiotics are indicated. Her temperature has come down to 98.7 ?F. At this point in time, I feel she be discharged safely home with follow-up to her primary care provider. Return instructions were reviewed. Disposition is discharged home in stable condition. Lab Data Attestation: I reviewed the patient's lab results. Labs: Laboratory Results - last 24 hr 09/09/21 09/09/21 09/09/21 10:30 10:30 10:30 WBC 3.1 L RBC 3.57 L Hgb 9.9 L Hct 31.7 L MCV 88.8 MCH 27.7 MCHC 31.2 L RDW Std Deviation 43.1 RDW Coeff of Radha 13.2 Plt Count 329 MPV 9.3 Neut % (Auto) Not Reportable Absolute Neuts (auto) 2.3 Absolute Lymphs (auto) 0.31 L Total Counted 100 Neutrophils % (Manual) 73 H Band Neutrophils % 2 Lymphocytes % (Manual) 10 L Monocytes % (Manual) 9 Eosinophils % (Manual) 2 Metamyelocytes % 1 Myelocytes % 3 H Diff Path Review May foll Platelet Estimate ADEQUATE RBC Morphology NORM C+C Sodium 133 L Potassium 4.1 Chloride 105 Carbon Dioxide 22.0 Anion Gap 6 BUN 17 Creatinine 1.48 H Estim Creat Clear Calc 29.76 Est GFR (MDRD) Af Amer 47 L Est GFR (MDRD) Non-Af 38 L BUN/Creatinine Ratio 11.5 Glucose 138 H Lactic Acid 1.2 Calcium 9.8 Total Bilirubin 0.40 AST 16 ALT 17 Alkaline Phosphatase 113 Total Protein 6.3 L Albumin 3.0 L Globulin 3.3 Albumin/Globulin Ratio 0.9 Urine Color Urine Clarity Urine pH Ur Specific Gause Urine Protein Urine Glucose (UA) Urine Ketones Urine Occult Blood Urine Nitrite Urine Bilirubin Urine Urobilinogen Ur Leukocyte Esterase Urine RBC Urine WBC Ur Squamous Epith Cells Urine Bacteria Urine Mucus 09/09/21 11:40 WBC RBC Hgb Hct MCV MCH MCHC RDW Std Deviation RDW Coeff of Radha Plt Count MPV Neut % (Auto) Absolute Neuts (auto) Absolute Lymphs (auto) Total Counted Neutrophils % (Manual) Band Neutrophils % Lymphocytes % (Manual) Monocytes % (Manual) Eosinophils % (Manual) Metamyelocytes % Myelocytes % Diff Path Review Platelet Estimate RBC Morphology Sodium Potassium Chloride Carbon Dioxide Anion Gap BUN Creatinine Estim Creat Clear Calc Est GFR (MDRD) Af Amer Est GFR (MDRD) Non-Af BUN/Creatinine Ratio Glucose Lactic Acid Calcium Total Bilirubin AST ALT Alkaline Phosphatase Total Protein Albumin Globulin Albumin/Globulin Ratio Urine Color Yellow Urine Clarity Clear Urine pH 5.0 Ur Specific Gause 1.020 Urine Protein 15 H Urine Glucose (UA) Normal Urine Ketones Negative Urine Occult Blood 10 H Urine Nitrite Negative Urine Bilirubin Negative Urine Urobilinogen Normal Ur Leukocyte Esterase 25 H Urine RBC 0-5 SEEN Urine WBC 0-5 SEEN Ur Squamous Epith Cells 0-5 SEEN Urine Bacteria 1+ Urine Mucus 0 SEEN Radiography Diagnostic Testing: Clinical Impression(s) from Imaging Studies Chest X-Ray 09/09/21 10:50 IMPRESSION: No acute abnormality is seen. Electronically Signed: Jourdan Marquis MD at 11:02 EDT Reading Location ID and State: [facility] / [place] , Service support , Discharge Plan Triage Chief Complaint: Fever ED Provider: Alfonso Clement Dx/Rx/DC Orders Clinical Impression: Fever, URI (upper respiratory infection), Malaise and fatigue Instructions: ED FUO Adult, ED URI, Viral, No Abx (Adult) Prescriptions: No Action albuterol sulfate 90 mcg/actuation HFA aerosol inhaler 2 puff INHALATION Q6H PRN (Reason: Wheezing) RF: 0 sodium bicarbonate 650 mg tablet 650 mg PO BID RF: 0 tacrolimus 1 mg capsule 1 mg PO Q12H RF: 0 metoprolol tartrate 25 mg tablet 25 mg PO BID RF: 0 mycophenolate sodium 360 mg tablet,delayed release (DR/EC) 720 mg PO BID RF: 0 sulfamethoxazole-trimethoprim [Bactrim DS] 800-160 mg tablet 1 tab PO DAILY RF: 0 diclofenac sodium 1 % gel 2 g topical ONCE RF: 0 allopurinol 100 MG tablet 100 mg PO MOWEFR RF: 0 oxycodone 5 MG tablet 5 - 10 mg PO Q4H PRN PRN (Reason: Pain) RF: 0 ondansetron HCl 4 MG tablet 4 mg PO Q6H PRN PRN (Reason: Nausea) Qty: 30 RF: 0 ciprofloxacin HCl 500 mg tablet 500 mg PO BID Qty: 14 RF: 0 aspirin [Adult Aspirin Regimen] 81 mg tablet,delayed release (DR/EC) 81 mg PO DAILY RF: 0 atorvastatin 20 mg tablet 20 mg PO QHS Qty: 90 RF: 3 Primary Care Provider: Raphael Russell Referrals: Raphael Russell MD [Primary Care Provider] - 1-2 Days if not improving Disposition Disposition: Home, Self Care Discharge Date/Time: 09/09/21 12:50
[2021-09-09] MEDS: Acetaminophen 325 MG Tablet 650 MG PO (10:35)
[2021-09-09 10:39] VITALS: BP 117/65; PULSE 85; RESP 26; TEMP 38.1; O2SAT 98
[2021-09-09 10:41] LABS: Hematocrit 31.7 % (37-47); Hemoglobin 9.9 g/dL (12.0-15.0); Mean Corp Hgb Conc 31.2 g/dL (32-36); Mean Corpuscular Hgb 27.7 pg (27.0-32.0); Mean Corpuscular Volume 88.8 fL (81-99); Mean Platelet Vol. 9.3 fl (6.2-12.0); POSITIVE COUNT YES; POSITIVE DIFFERENTIAL YES; POSITIVE MORPHOLOGY YES; Platelet Count 329 K/mm3 (150-450); RBC Distribution Width CV 13.2 % (11.6-14.6); RBC Distribution Width SD 43.1 fl (35.1-43.9); Red Blood Count 3.57 M/mm3 (4.2-5.4); White Blood Count 3.1 K/mm3 (4.4-11.0)
[2021-09-09 10:45] LABS: Differential Indicated MANUAL DIFF
--- NOTE | 2021-09-09 10:50 | RAD_ITS ---
STUDY: X-RAY CHEST REASON FOR EXAM: Female, 60 years old. Fever, cough TECHNIQUE: Single AP portable view of the chest. COMPARISON: Comparison is made with prior study in 04/24/2020. FINDINGS: EKG electrodes are seen. Multiple stents are seen in the left axillary region and proximal left arm. There is no demonstrated pleural abnormality. There is borderline cardiomegaly. Normal mediastinum and laxmi. Normal visualized pulmonary arteries. There is atherosclerotic tortuosity of the aortic arch and descending thoracic aorta. Normal visualized thoracic spine. Normal visualized ribs, clavicles, and shoulders. There is no demonstrated abnormality of the visualized soft tissue structures of the upper abdomen. RAD/Chest 1 View (Portable) IMPRESSION: No acute abnormality is seen. Electronically Signed: Jourdan Marquis MD at 11:02 EDT ,
[2021-09-09 11:03] LABS: ALB/GLOB Ratio 0.9 RATIO (0.9-2.4); AST(SGOT) 16 U/L (15-37); Alanine Aminotransfer ALT/SGPT 17 U/L (13-56); Alkaline Phosphatase 113 U/L (45-117); Anion Gap 6 (5-15); BUN 17 mg/dL (7-18); BUN/Creat Ratio 11.5 RATIO (10-20); Calcium,Total 9.8 mg/dL (8.5-10.1); Chloride 105 mmol/L (98-107); Creatinine, Serum 1.48 mg/dL (0.55-1.02); EST Glomerular Filtration Rate 38 mL/min (>60); Est Glom Filt Rate - Afr Amer 47 mL/min (>60); Estimated Creatinine Clearance 29.76 ml/min; Globulin 3.3 g/dL (2.2-4.2); Glucose 138 mg/dL (74-106); Potassium 4.1 mmol/L (3.5-5.1); Protein, Total 6.3 g/dL (6.4-8.2); Sodium Level 133 mmol/L (136-145)
[2021-09-09 11:05] LABS: Lactic Acid 1.2 mmol/L (0.4-1.9)
[2021-09-09 11:14] LABS: Eosinophil 2 % (0-5); Lymphocyte 10 % (19-41); Metamyelocyte 1 % (0-1); Monocyte 9 % (0-10); Myelocyte 3 % (0-0); Neutrophil-Band 2 % (0-5); Neutrophil-Segmented 73 % (47-70); Total Cells Counted 100 (MANUAL DIFF)
[2021-09-09 11:17] LABS: Absolute Lymphocyte Count 0.31 X10^3/uL (0.83-4.51); Absolute Neutrophil Count 2.3 X10^3/uL (2.0-7.7); Platelet Estimate ADEQUATE (ADEQ)
[2021-09-09 11:18] LABS: Red Cell Morphology NORM C+C NORMAL (NORM C&C)
[2021-09-09 11:37] VITALS: BP 107/65; PULSE 73; RESP 16; O2SAT 96
[2021-09-09 11:47] VITALS: TEMP 37.1
[2021-09-09 11:48] LABS: Mucous, Urine 0 SEEN /hpf (<or=2+)
[2021-09-09 12:03] LABS: Color, Urine Yellow (Yellow); Glucose, Dipstick Normal (Normal); Ketone-Dipstick Negative (Negative); Leukocyte Esterase-Dipstick 25 /ul (Negative); Nitrite-Dipstick Negative (Negative); Occult Blood-Urine 10 /ul (Negative); Protein-Dipstick 15 mg/dl (Negative); Urine Bilirubin Dipstick Negative (Negative); Urine Clarity Clear (Clear); Urine Urobilinogen Normal (Normal)
[2021-09-09 12:13] LABS: Bacteria 1+ /hpf (None Seen); Red Blood Cells-Urine 0-5 SEEN /hpf (0-5); Squamous Epithelial Cells - UA 0-5 SEEN /hpf (5-10); White Blood Cells 0-5 SEEN /hpf (0-5)
[2021-09-09 12:46] VITALS: BP 99/63; PULSE 75; RESP 23; TEMP 36.8; O2SAT 96
[2021-09-09 12:47] VITALS: TEMP 36.8
--- NOTE | 2021-09-10 08:20 | ED.RN ---
THIS NURSE CONTACTED PT TO SEE HOW SHE IS FEELING. PT REPORTS FEELING A LITTLE BETTER AND HER FEVER IS GONE. PT INFORMED OF BLOOD CULTURE RESULTS. INFORMED DR WISDOM WILL CALL IN A PRESCRIPTION TO THE PHARMACY OF HER PREFERENCE. PT REQUEST PRESCRIPTION CALLED INTO [facility] IN [place]
[2021-09-10 11:27] LABS: Pathologist Review Reviewed
== END 2021-09-09 12:50 | disposition home or self-care (01) ==
PROVIDERS: Emergency Provider Emergency Medicine; PCP Family Medicine; Visit Provider Emergency Medicine
DX: J06.9 Acute upper respiratory infection, unspecified (principal); D70.8 Other neutropenia; Z99.2 Dependence on renal dialysis; I42.8 Other cardiomyopathies; N18.6 End stage renal disease; I12.0 Hypertensive chronic kidney disease with stage 5 chronic kidney disease or end stage renal disease; R53.81 Other malaise; R53.83 Other fatigue; R50.9 Fever, unspecified
CPT/HCPCS: 71045; 80053; 81001; 83605; 85025; 87040; 87077; 87086; 87088; 87186; 87428; 93005; 99285; J7040; A4216

== ENCOUNTER → 2021-09-22 | Outpatient (CLI) | payer MEDICARE, OTHER, SELFPAY ==
[2021-09-22 09:56] LABS: Hemoglobin 10.2 g/dL (12.0-15.0); Mean Corp Hgb Conc 30.9 g/dL (32-36); Mean Corpuscular Hgb 27.8 pg (27.0-32.0); Mean Corpuscular Volume 89.9 fL (81-99); Mean Platelet Vol. 9.9 fl (6.2-12.0); POSITIVE COUNT YES; POSITIVE DIFFERENTIAL YES; POSITIVE MORPHOLOGY YES; Platelet Count 413 K/mm3 (150-450); RBC Distribution Width CV 14.5 % (11.6-14.6); RBC Distribution Width SD 46.9 fl (35.1-43.9); Red Blood Count 3.67 M/mm3 (4.2-5.4); White Blood Count 3.7 K/mm3 (4.4-11.0)
[2021-09-22 10:02] LABS: Differential Indicated MANUAL DIFF
[2021-09-22 10:37] LABS: Eosinophil 5 % (0-5); Lymphocyte 13 % (19-41); Monocyte 15 % (0-10); Neutrophil-Segmented 67 % (47-70); Total Cells Counted 100 (MANUAL DIFF)
[2021-09-22 10:40] LABS: Platelet Estimate SLT INC (ADEQ)
[2021-09-22 10:44] LABS: Anisocytosis 1+; Ovalocyte 1+
[2021-09-22 10:46] LABS: Absolute Neutrophil Count 2.5 X10^3/uL (2.0-7.7)
[2021-09-23 13:50] LABS: Pathologist Review Reviewed
[2021-09-25 16:06] LABS: Tacrolimus (FK506) 7.8 ng/mL (2.0-20.0)
== END | disposition home or self-care (01) ==
LOC: MTLAB 07:05
PROVIDERS: PCP Family Medicine
DX: N18.31 Chronic kidney disease, stage 3a (principal); D84.9 Immunodeficiency, unspecified; R68.89 Other general symptoms and signs; Z94.0 Kidney transplant status; Z79.899 Other long term (current) drug therapy; I12.9 Hypertensive chronic kidney disease with stage 1 through stage 4 chronic kidney disease, or unspecified chronic kidney disease; E83.9 Disorder of mineral metabolism, unspecified; R79.9 Abnormal finding of blood chemistry, unspecified; D63.1 Anemia in chronic kidney disease
CPT/HCPCS: 36415; 80197; 85025

== ENCOUNTER 2021-10-12 07:01 | Outpatient (RCR) | payer MEDICARE, OTHER, SELFPAY ==
[2021-10-04 05:26] VITALS: BMI 27.0
[2021-10-12 10:26] LABS: Hematocrit 32.3 % (37-47); Hemoglobin 10.2 g/dL (12.0-15.0); Mean Corp Hgb Conc 31.6 g/dL (32-36); Mean Corpuscular Volume 88.7 fL (81-99); Mean Platelet Vol. 10.5 fl (6.2-12.0); POSITIVE COUNT YES; POSITIVE DIFFERENTIAL YES; POSITIVE MORPHOLOGY YES; Platelet Count 307 K/mm3 (150-450); RBC Distribution Width CV 14.6 % (11.6-14.6); RBC Distribution Width SD 47.1 fl (35.1-43.9); Red Blood Count 3.64 M/mm3 (4.2-5.4); White Blood Count 5.1 K/mm3 (4.4-11.0)
[2021-10-12 10:31] LABS: BUN 18 mg/dL (7-18); Chloride 113 mmol/L (98-107); Glucose 105 mg/dL (74-106); Potassium 4.9 mmol/L (3.5-5.1); Sodium Level 139 mmol/L (136-145)
[2021-10-12 10:32] LABS: Differential Indicated MANUAL DIFF
[2021-10-12 10:39] LABS: PTHIN 218.3 pg/mL (18.4-80.1)
[2021-10-12 10:40] LABS: Hemoglobin A1c 5.5 % (3.8-5.6)
[2021-10-12 11:28] LABS: Basophil 2 % (0-1); Eosinophil 9 % (0-5); Lymphocyte 7 % (19-41); Monocyte 8 % (0-10); Neutrophil-Segmented 74 % (47-70); Platelet Estimate ADEQUATE (ADEQ); Red Cell Morphology NORM C+C NORMAL (NORM C&C); Total Cells Counted 100 (MANUAL DIFF)
[2021-10-12 11:30] LABS: Absolute Neutrophil Count 3.8 X10^3/uL (2.0-7.7)
[2021-10-13 11:18] LABS: Pathologist Review Reviewed
[2021-10-13 15:27] LABS: Creatinine, Serum 1.27 mg/dL (0.55-1.02); EST Glomerular Filtration Rate 46 mL/min (>60); Est Glom Filt Rate - Afr Amer 55 mL/min (>60)
[2021-10-16 13:21] LABS: Tacrolimus (FK506) 6.5 ng/mL (2.0-20.0)
== END 2021-10-12 18:00 | disposition home or self-care (01) ==
LOC: MTLAB 07:01
PROVIDERS: PCP Family Medicine
DX: Z48.298 Encounter for aftercare following other organ transplant (principal); D84.9 Immunodeficiency, unspecified; R79.9 Abnormal finding of blood chemistry, unspecified; R68.89 Other general symptoms and signs; Z94.0 Kidney transplant status; Z79.899 Other long term (current) drug therapy
CPT/HCPCS: 80051; 80197; 82374; 82435; 82565; 82947; 83036; 83970; 84132; 84295; 84520; 85025

== ENCOUNTER 2021-11-16 07:01 | Outpatient (RCR) | payer MEDICARE, OTHER, SELFPAY ==
[2021-11-03 21:46] VITALS: BMI 27.0
[2021-11-16 10:12] LABS: Hematocrit 35.7 % (37-47); Hemoglobin 10.9 g/dL (12.0-15.0); Mean Corp Hgb Conc 30.5 g/dL (32-36); Mean Corpuscular Hgb 28.7 pg (27.0-32.0); Mean Corpuscular Volume 93.9 fL (81-99); Mean Platelet Vol. 9.6 fl (6.2-12.0); POSITIVE COUNT YES; POSITIVE DIFFERENTIAL YES; POSITIVE MORPHOLOGY YES; Platelet Count 352 K/mm3 (150-450); RBC Distribution Width SD 48.2 fl (35.1-43.9); White Blood Count 3.8 K/mm3 (4.4-11.0)
[2021-11-16 10:16] LABS: Differential Indicated MANUAL DIFF
[2021-11-16 10:50] LABS: ALB/GLOB Ratio 1.1 RATIO (0.9-2.4); AST(SGOT) 16 U/L (15-37); Alanine Aminotransfer ALT/SGPT 20 U/L (13-56); Albumin, Serum 3.3 g/dL (3.2-5.0); Alkaline Phosphatase 129 U/L (45-117); Anion Gap 6 (5-15); BUN 26 mg/dL (7-18); BUN/Creat Ratio 18.6 RATIO (10-20); Calcium,Total 10.4 mg/dL (8.5-10.1); Chloride 112 mmol/L (98-107); EST Glomerular Filtration Rate 41 mL/min (>60); Est Glom Filt Rate - Afr Amer 50 mL/min (>60); Glucose 97 mg/dL (74-106); Magnesium 1.8 mg/dL (1.6-2.6); Potassium 4.3 mmol/L (3.5-5.1); Protein, Total 6.3 g/dL (6.4-8.2); Sodium Level 141 mmol/L (136-145)
[2021-11-16 12:49] LABS: Eosinophil 6 % (0-5); Lymphocyte 14 % (19-41); Monocyte 6 % (0-10); Neutrophil-Band 2 % (0-5); Neutrophil-Segmented 72 % (47-70); Platelet Estimate ADEQUATE (ADEQ); Red Cell Morphology NORM C+C NORMAL (NORM C&C); Total Cells Counted 100 (MANUAL DIFF)
[2021-11-16 12:52] LABS: Absolute Lymphocyte Count 5.32 X10^3/uL (0.83-4.51); Absolute Neutrophil Count 2.8 X10^3/uL (2.0-7.7)
[2021-11-16 15:56] LABS: Phosphorus 2.1 mg/dL (2.5-4.9)
[2021-11-17 13:06] LABS: Pathologist Review Reviewed
[2021-11-18 18:02] LABS: Tacrolimus (FK506) 6.4 ng/mL (2.0-20.0)
== END 2021-12-03 16:00 | disposition home or self-care (01) ==
LOC: MTLAB 07:01
PROVIDERS: PCP Family Medicine
DX: Z48.298 Encounter for aftercare following other organ transplant (principal); D84.9 Immunodeficiency, unspecified; R79.9 Abnormal finding of blood chemistry, unspecified; R68.89 Other general symptoms and signs; Z94.0 Kidney transplant status; Z79.899 Other long term (current) drug therapy
CPT/HCPCS: 36415; 80053; 80197; 83735; 84100; 85025

== ENCOUNTER 2021-12-14 06:59 | Outpatient (RCR) | payer MEDICARE, OTHER, SELFPAY ==
[2021-12-04 08:15] VITALS: BMI 27.0
[2021-12-14 09:47] LABS: Hematocrit 39.5 % (37-47); Hemoglobin 12.4 g/dL (12.0-15.0); Mean Corp Hgb Conc 31.4 g/dL (32-36); Mean Corpuscular Hgb 28.6 pg (27.0-32.0); Mean Corpuscular Volume 91.2 fL (81-99); Platelet Count 355 K/mm3 (150-450); RBC Distribution Width CV 12.9 % (11.6-14.6); RBC Distribution Width SD 43.2 fl (35.1-43.9); Red Blood Count 4.33 M/mm3 (4.2-5.4); White Blood Count 4.2 K/mm3 (4.4-11.0)
[2021-12-14 10:05] LABS: Anion Gap 9 (5-15); BUN 27 mg/dL (7-18); Chloride 108 mmol/L (98-107); Creatinine, Serum 1.27 mg/dL (0.55-1.02); EST Glomerular Filtration Rate 46 mL/min (>60); Est Glom Filt Rate - Afr Amer 55 mL/min (>60); Glucose 122 mg/dL (74-106); Potassium 4.3 mmol/L (3.5-5.1); Sodium Level 142 mmol/L (136-145)
[2021-12-17 15:57] LABS: Tacrolimus (FK506) 6.9 ng/mL (2.0-20.0)
== END 2022-01-03 03:26 | disposition home or self-care (01) ==
LOC: MTLAB 06:59
PROVIDERS: PCP Family Medicine
DX: Z48.298 Encounter for aftercare following other organ transplant (principal); D84.9 Immunodeficiency, unspecified; R79.9 Abnormal finding of blood chemistry, unspecified; R68.89 Other general symptoms and signs; Z94.0 Kidney transplant status; Z79.899 Other long term (current) drug therapy
CPT/HCPCS: 36415; 80051; 80197; 82565; 82947; 84520; 85027

== ENCOUNTER 2022-01-18 15:07 | Outpatient (CLI) | payer MEDICARE, OTHER, SELFPAY ==
[2022-01-18 15:46] VITALS: BP 94/69; PULSE 83; RESP 16; TEMP 36.9; O2SAT 96; BMI 31.4
[2022-01-18] MEDS: 0.9% Saline Lock 10 ML Syringe IV ×3 (15:53→16:05)
[2022-01-18] MEDS: BEBTELOVIMAB 175 MG/2 ML VIAL IV (16:02)
--- NOTE | 2022-01-18 16:12 | NURSING ---
bp was low when patient arrived called [facility] and discussed it with her and got approval to do the infusion. patient ws not having any symptoms other than feeling tired from covid. bp recheck at infusion was 96/67
[2022-01-18 16:27] VITALS: BP 95/67; PULSE 76; RESP 16; TEMP 36.5; O2SAT 95
[2022-01-18 16:51] VITALS: BP 96/59; PULSE 78; RESP 16; TEMP 36.4; O2SAT 95
--- NOTE | 2022-01-18 16:52 | NURSING ---
patient tolerated infusion well. BP remained consistent during the whole time she was her. Reports feeling fine no dizziness
== END 2022-01-18 17:02 | disposition home or self-care (01) ==
LOC: MS3OUT 15:07 → MS2 15:08
PROVIDERS: PCP Family Medicine; Referring Provider Nurse Practitioner Adult Health; Visit Provider Nurse Practitioner Adult Health
DX: U07.1 COVID-19 (principal)
CPT/HCPCS: M0222; Q0222; A4216

== ENCOUNTER 2022-02-01 07:03 | Outpatient (RCR) | payer MEDICARE, OTHER, SELFPAY ==
[2022-01-03 03:26] VITALS: BMI 27.0
[2022-01-25 10:04] LABS: Hematocrit 38.1 % (37-47); Hemoglobin 12.2 g/dL (12.0-15.0); Mean Corpuscular Hgb 27.9 pg (27.0-32.0); Mean Corpuscular Volume 87.2 fL (81-99); Mean Platelet Vol. 10.6 fl (6.2-12.0); Platelet Count 296 K/mm3 (150-450); RBC Distribution Width CV 12.6 % (11.6-14.6); RBC Distribution Width SD 39.8 fl (35.1-43.9); Red Blood Count 4.37 M/mm3 (4.2-5.4); White Blood Count 2.3 K/mm3 (4.4-11.0)
[2022-01-25 10:12] LABS: Anion Gap 8 (5-15); BUN 18 mg/dL (7-18); Chloride 113 mmol/L (98-107); Creatinine, Serum 1.31 mg/dL (0.55-1.02); EST Glomerular Filtration Rate 44 mL/min (>60); Est Glom Filt Rate - Afr Amer 53 mL/min (>60); Glucose 104 mg/dL (74-106); Potassium 4.2 mmol/L (3.5-5.1); Sodium Level 143 mmol/L (136-145)
[2022-01-27 15:44] LABS: Tacrolimus (FK506) 16.5 ng/mL (2.0-20.0)
[2022-02-01 09:54] LABS: Hematocrit 38.3 % (37-47); Hemoglobin 11.9 g/dL (12.0-15.0); Mean Corp Hgb Conc 31.1 g/dL (32-36); Mean Corpuscular Hgb 27.7 pg (27.0-32.0); Mean Corpuscular Volume 89.1 fL (81-99); Mean Platelet Vol. 10.5 fl (6.2-12.0); Platelet Count 317 K/mm3 (150-450); RBC Distribution Width CV 13.2 % (11.6-14.6); White Blood Count 2.6 K/mm3 (4.4-11.0)
[2022-02-01 10:07] LABS: Anion Gap 4 (5-15); BUN 16 mg/dL (7-18); BUN/Creat Ratio 11.6 RATIO (10-20); Calcium,Total 10.7 mg/dL (8.5-10.1); Chloride 114 mmol/L (98-107); Creatinine, Serum 1.38 mg/dL (0.55-1.02); EST Glomerular Filtration Rate 42 mL/min (>60); Est Glom Filt Rate - Afr Amer 50 mL/min (>60); Glucose 105 mg/dL (74-106); Potassium 4.6 mmol/L (3.5-5.1); Sodium Level 141 mmol/L (136-145)
[2022-02-04 15:01] LABS: Tacrolimus (FK506) 10.2 ng/mL (2.0-20.0)
== END 2022-02-01 18:00 | disposition home or self-care (01) ==
LOC: MTLAB 07:03
PROVIDERS: PCP Family Medicine
DX: Z48.298 Encounter for aftercare following other organ transplant (principal); D84.9 Immunodeficiency, unspecified; R79.9 Abnormal finding of blood chemistry, unspecified; R68.89 Other general symptoms and signs; Z94.0 Kidney transplant status; Z79.899 Other long term (current) drug therapy
CPT/HCPCS: 36415; 80048; 80051; 80197; 82565; 82947; 84520; 85027

== ENCOUNTER 2022-02-15 07:07 | Outpatient (RCR) | payer MEDICARE, OTHER, SELFPAY ==
[2022-02-04 01:00] VITALS: BMI 27.0
[2022-02-09 10:14] LABS: Hematocrit 35.7 % (37-47); Hemoglobin 11.5 g/dL (12.0-15.0); Mean Corp Hgb Conc 32.2 g/dL (32-36); Mean Corpuscular Hgb 28.6 pg (27.0-32.0); Mean Corpuscular Volume 88.8 fL (81-99); Mean Platelet Vol. 9.9 fl (6.2-12.0); Platelet Count 244 K/mm3 (150-450); RBC Distribution Width CV 13.5 % (11.6-14.6); RBC Distribution Width SD 43.9 fl (35.1-43.9); Red Blood Count 4.02 M/mm3 (4.2-5.4); White Blood Count 4.6 K/mm3 (4.4-11.0)
[2022-02-09 10:26] LABS: ALB/GLOB Ratio 0.9 RATIO (0.9-2.4); AST(SGOT) 21 U/L (15-37); Alanine Aminotransfer ALT/SGPT 32 U/L (13-56); Alkaline Phosphatase 137 U/L (45-117); Anion Gap 7 (5-15); BUN 23 mg/dL (7-18); BUN/Creat Ratio 20.2 RATIO (10-20); Calcium,Total 10.3 mg/dL (8.5-10.1); Chloride 112 mmol/L (98-107); Creatinine, Serum 1.14 mg/dL (0.55-1.02); EST Glomerular Filtration Rate 52 mL/min (>60); Est Glom Filt Rate - Afr Amer 63 mL/min (>60); Globulin 3.4 g/dL (2.2-4.2); Glucose 110 mg/dL (74-106); Magnesium 1.9 mg/dL (1.6-2.6); Phosphorus 2.4 mg/dL (2.5-4.9); Potassium 4.3 mmol/L (3.5-5.1); Protein, Total 6.4 g/dL (6.4-8.2); Sodium Level 142 mmol/L (136-145); Uric Acid 4.9 mg/dL (2.6-6.0)
[2022-02-09 10:35] LABS: Microalbumin,Random Urine 13.3 mg/L (NO RANGE EST.); Microalbumin:Creatinine Ratio 13.6 mg/g CRE (<30 mg/g CRE)
[2022-02-13 15:45] LABS: Tacrolimus (FK506) 7.1 ng/mL (2.0-20.0)
[2022-02-15 09:58] LABS: Hematocrit 33.8 % (37-47); Hemoglobin 10.9 g/dL (12.0-15.0); Mean Corp Hgb Conc 32.2 g/dL (32-36); Mean Corpuscular Hgb 27.6 pg (27.0-32.0); Mean Corpuscular Volume 85.6 fL (81-99); Mean Platelet Vol. 10.2 fl (6.2-12.0); Platelet Count 316 K/mm3 (150-450); RBC Distribution Width CV 13.9 % (11.6-14.6); RBC Distribution Width SD 42.8 fl (35.1-43.9); Red Blood Count 3.95 M/mm3 (4.2-5.4); White Blood Count 3.9 K/mm3 (4.4-11.0)
[2022-02-15 10:27] LABS: Protein, Urine (Random) 14.9 mg/dL (<11.9); Protein:Creat Ratio 173 mg/g CRE (0-200)
[2022-02-15 10:57] LABS: AST(SGOT) 13 U/L (15-37); Alanine Aminotransfer ALT/SGPT 21 U/L (13-56); Albumin, Serum 3.1 g/dL (3.2-5.0); Alkaline Phosphatase 138 U/L (45-117); Anion Gap 5 (5-15); BUN 16 mg/dL (7-18); BUN/Creat Ratio 14.4 RATIO (10-20); Calcium,Total 10.3 mg/dL (8.5-10.1); Chloride 116 mmol/L (98-107); Cholesterol 147 mg/dL (200); Creatinine, Serum 1.11 mg/dL (0.55-1.02); EST Glomerular Filtration Rate 53 mL/min (>60); Est Glom Filt Rate - Afr Amer 65 mL/min (>60); Ferritin 2125 ng/mL (8-252); Glucose 106 mg/dL (74-106); High Density Lipoprotein 55 mg/dL; Iron 63 ug/dL (50-170); Iron Binding Capacity,Total 210 ug/dL (250-450); Magnesium 2.2 mg/dL (1.6-2.6); Phosphorus 2.3 mg/dL (2.5-4.9); Potassium 4.1 mmol/L (3.5-5.1); Sodium Level 143 mmol/L (136-145); Triglycerides 130 mg/dL; Uric Acid 4.7 mg/dL (2.6-6.0); Very Low Density Lipoprotein 26 mg/dL (5-40)
[2022-02-18 16:21] LABS: Tacrolimus (FK506) 5.1 ng/mL (2.0-20.0); Transferrin 146 mg/dL (192-364)
== END 2022-02-15 18:00 | disposition home or self-care (01) ==
LOC: MTLAB 07:07
PROVIDERS: PCP Family Medicine
DX: Z48.298 Encounter for aftercare following other organ transplant (principal); D84.9 Immunodeficiency, unspecified; R79.9 Abnormal finding of blood chemistry, unspecified; R68.89 Other general symptoms and signs; Z94.0 Kidney transplant status; Z79.899 Other long term (current) drug therapy; D64.9 Anemia, unspecified; M10.9 Gout, unspecified
CPT/HCPCS: 36415; 80048; 80053; 80061; 80197; 82040; 82043; 82247; 82570; 82728; 83540; 83550; 83735; 84075; 84100; 84156; 84450; 84460; 84466; 84550; 85027

== ENCOUNTER → 2022-02-17 | Outpatient (CLI) | payer MEDICARE, OTHER, SELFPAY ==
--- NOTE | 2022-02-17 07:11 | EKG12_ITS ---
Test Reason : PRE OP Blood Pressure : / mmHG Vent. Rate : 078 BPM Atrial Rate : 078 BPM P-R Int : 148 ms QRS Dur : 072 ms QT Int : 368 ms P-R-T Axes : 066 011 078 degrees QTc Int : 419 ms Normal sinus rhythm Nonspecific ST and T wave abnormality Abnormal ECG Confirmed by LAMBERTO YING, DAHLIA ([id number]), film editor KIMMY LAMB ([id number]) on 02/17/2022 1:55:57 PM Referred By: Diego Desir Confirmed By:DAHLIA ORANTES MD
--- NOTE | 2022-02-17 07:20 | RAD_ITS ---
STUDY: X-RAY CHEST REASON FOR EXAM: Female, 61 years old. PREOP TECHNIQUE: PA and lateral views of the chest. COMPARISON: Comparison is made with prior study 09/09/2021. FINDINGS: A left-sided axillary vascular stent is seen. The lungs are clear and expanded. There is no demonstrated pleural abnormality. Normal size heart. Normal mediastinum and laxmi. Normal visualized pulmonary arteries. There is atherosclerotic tortuosity of the aortic arch and descending thoracic aorta. There are degenerative changes of the visualized thoracic spine. Normal visualized ribs, clavicles, and shoulders. Surgical clips are seen in the upper abdomen. RAD/Chest PA and Lateral IMPRESSION: No acute abnormality is seen. Electronically Signed: Jourdan Marquis MD at 9:57 EDT ,
== END | disposition home or self-care (01) ==
LOC: PSN 07:08
PROVIDERS: PCP Family Medicine; Referring Provider Orthopaedic Surgery; Visit Provider Orthopaedic Surgery
DX: Z01.810 Encounter for preprocedural cardiovascular examination (principal); Z01.811 Encounter for preprocedural respiratory examination
CPT/HCPCS: 71046; 93005

== ENCOUNTER 2022-03-15 07:01 | Outpatient (RCR) | payer MEDICARE, OTHER, SELFPAY ==
[2022-03-06 01:49] VITALS: BMI 27.0
[2022-03-15 10:20] LABS: Hematocrit 37.9 % (37-47); Hemoglobin 11.9 g/dL (12.0-15.0); Mean Corp Hgb Conc 31.4 g/dL (32-36); Mean Corpuscular Volume 92.4 fL (81-99); Mean Platelet Vol. 10.6 fl (6.2-12.0); Platelet Count 307 K/mm3 (150-450); RBC Distribution Width CV 15.2 % (11.6-14.6); RBC Distribution Width SD 51.4 fl (35.1-43.9); White Blood Count 5.4 K/mm3 (4.4-11.0)
[2022-03-15 10:45] LABS: Anion Gap 8 (5-15); BUN 23 mg/dL (7-18); Chloride 111 mmol/L (98-107); Creatinine, Serum 1.25 mg/dL (0.55-1.02); EST Glomerular Filtration Rate 47 mL/min (>60); Est Glom Filt Rate - Afr Amer 56 mL/min (>60); Glucose 107 mg/dL (74-106); Potassium 4.7 mmol/L (3.5-5.1); Sodium Level 140 mmol/L (136-145)
[2022-03-18 16:44] LABS: Tacrolimus (FK506) 4.9 ng/mL (2.0-20.0)
== END 2022-03-15 18:00 | disposition home or self-care (01) ==
LOC: MTLAB 07:01
PROVIDERS: PCP Family Medicine
DX: Z48.298 Encounter for aftercare following other organ transplant (principal); D84.9 Immunodeficiency, unspecified; D64.9 Anemia, unspecified; M10.9 Gout, unspecified; R79.9 Abnormal finding of blood chemistry, unspecified; R68.89 Other general symptoms and signs; Z94.0 Kidney transplant status; Z79.899 Other long term (current) drug therapy
CPT/HCPCS: 36415; 80051; 80197; 82565; 82947; 84520; 85027

== ENCOUNTER 2022-04-19 07:04 | Outpatient (RCR) | payer MEDICARE, OTHER, SELFPAY ==
[2022-04-06 10:26] VITALS: BMI 27.0
[2022-04-19 09:54] LABS: Hematocrit 40.6 % (37-47); Hemoglobin 12.6 g/dL (12.0-15.0); Mean Corpuscular Hgb 28.3 pg (27.0-32.0); Platelet Count 374 K/mm3 (150-450); RBC Distribution Width SD 46.8 fl (35.1-43.9); Red Blood Count 4.46 M/mm3 (4.2-5.4); White Blood Count 4.6 K/mm3 (4.4-11.0)
[2022-04-19 10:11] LABS: Anion Gap 8 (5-15); BUN 22 mg/dL (7-18); Chloride 113 mmol/L (98-107); Creatinine, Serum 1.12 mg/dL (0.55-1.02); EST Glomerular Filtration Rate 53 mL/min (>60); Est Glom Filt Rate - Afr Amer 64 mL/min (>60); Glucose 108 mg/dL (74-106); Potassium 4.3 mmol/L (3.5-5.1); Sodium Level 141 mmol/L (136-145)
[2022-04-21 16:30] LABS: Tacrolimus (FK506) 5.3 ng/mL (2.0-20.0)
== END 2022-05-05 18:00 | disposition home or self-care (01) ==
LOC: MTLAB 07:04
PROVIDERS: PCP Family Medicine
DX: D84.9 Immunodeficiency, unspecified; R79.9 Abnormal finding of blood chemistry, unspecified; R68.89 Other general symptoms and signs; Z94.0 Kidney transplant status; Z79.899 Other long term (current) drug therapy
CPT/HCPCS: 36415; 80051; 80197; 82565; 82947; 84520; 85027

== ENCOUNTER → 2022-05-13 | Outpatient (CLI) | payer MEDICARE, OTHER, SELFPAY ==
--- NOTE | 2022-05-13 10:10 | BI_ITS ---
MAMMOGRAPHY - BILATERAL SCREENING REASON FOR EXAM: Female, 61 years old. Routine annual screening examination. PERTINENT HISTORY: Non-contributory. TECHNIQUE: Digital bilateral breast ha (3D mammographic acquisition) in the CC and MLO projections. 2-D mediolateral oblique (MLO) and craniocaudad (CC) views of both breasts were obtained. CAD: Full Field Digital Mammography with Computer Added Detection was performed. COMPARISON: Comparison is made with prior study dated 11/30/2018. FINDINGS: Breast Composition: The breasts are almost entirely fatty. There are no dominant masses or suspicious calcifications. Stable bilateral secretory calcifications. Stable 9 mm well-defined nodule in the upper lateral aspect of the left breast suggestive of a small lymph node. No other significant abnormalities are identified. There has been no significant change since the prior study. BI/SCRN MAMM (CAD)W/HA BILAT IMPRESSION: Stable bilateral screening mammogram. Yearly follow-up mammogram recommended. (A) ASSESSMENT CATEGORY: BIRADS Category 2: Benign. A letter regarding these results will be sent to the patient by the facility within 30 days. Approximately 10% of breast cancers are not detected by mammography. A normal mammogram should not delay biopsy of a clinically suspicious abnormality. [id number] Electronically Signed: Jourdan Marquis MD at 11:52 EST ,
--- NOTE | 2022-05-13 10:13 | BD_ITS ---
STUDY: DUAL ENERGY X-RAY ABSORPTIOMETRY / DXA REASON FOR EXAM: Female, 61 years old. 627.8Menopausal postmenopausalBONE DENSITY REASON FOR EXAM TECHNIQUE: Bone Mineral Density (BMD) measurements of lumbar spine and bilateral hips were obtained. COMPARISON: None. FINDINGS: Lumbar Spine (L1-L4): g/cm2 (0.763) / T-score (-2.6) / Z-score (-1.2) Findings are suggestive of osteoporosis with a high fracture risk. Left Femur Total: g/cm2 (0.626) / T-score (-2.6) / Z-score (-1.7) Left Femoral Neck: g/cm2 (0.463) / T-score (-3.5) / Z-score (-2.2) Right Femur Total: g/cm2 (0.685) / T-score (-2.1) / Z-score (-1.2) Right Femoral Neck: g/cm2 (0.618) / T-score (-2.1) / Z-score (0.8) BD/Dexa Bone Density Study IMPRESSION: The patient is considered osteoporotic as outlined below according to World Ferdinand Organization (WHO) criteria with a high fracture risk. Reference Information: The T-score is the number of standard deviations above or below the standard which is normal for young adults at their peak bone mineral density. The World Health Organization (WHO) interprets the T-scores as follows: Above -1 Normal bone density Between -1 and -2.5 Osteopenia Equal to / or below -2.5 Osteoporosis As a practical clinical guideline, osteopenia may be graded as follows: Mild -1 through -1.5 Moderate -1.6 through -2.0 Severe -2.1 through -2.4 The Z-score is the number of standard deviations above or below age-matched controls. A Z-score of less than -1.5 would be considered abnormal. References: 1. NIH Osteoporosis and Related Bone Diseases www osteo.org 2. International Society for Clinical Densitometry www iscd.org 3. National Osteoporosis Foundation www nof.org Electronically Signed: Jourdan Marquis MD at 11:02 EST ,
== END | disposition home or self-care (01) ==
LOC: OPBD 10:05
PROVIDERS: PCP Family Medicine; Referring Provider Family Medicine; Visit Provider Family Medicine
DX: Z12.31 Encounter for screening mammogram for malignant neoplasm of breast (principal); N63.20 Unspecified lump in the left breast, unspecified quadrant; M81.0 Age-related osteoporosis without current pathological fracture; Z78.0 Asymptomatic menopausal state; Z94.0 Kidney transplant status; V42 Car occupant injured in collision with two- or three-wheeled motor vehicle
CPT/HCPCS: 77063; 77067; 77080

== ENCOUNTER 2022-05-17 07:00 | Outpatient (RCR) | payer MEDICARE, OTHER, SELFPAY ==
[2022-05-06 02:25] VITALS: BMI 27.0
[2022-05-17 10:00] LABS: Hematocrit 39.7 % (37-47); Hemoglobin 12.3 g/dL (12.0-15.0); Mean Corpuscular Hgb 28.2 pg (27.0-32.0); Mean Corpuscular Volume 91.1 fL (81-99); Mean Platelet Vol. 10.2 fl (6.2-12.0); Platelet Count 349 K/mm3 (150-450); RBC Distribution Width CV 13.5 % (11.6-14.6); Red Blood Count 4.36 M/mm3 (4.2-5.4); White Blood Count 6.6 K/mm3 (4.4-11.0)
[2022-05-17 10:45] LABS: ALB/GLOB Ratio 1.2 RATIO (0.9-2.4); AST(SGOT) 15 U/L (15-37); Alanine Aminotransfer ALT/SGPT 24 U/L (13-56); Albumin, Serum 3.3 g/dL (3.2-5.0); Alkaline Phosphatase 128 U/L (45-117); Anion Gap 7 (5-15); BUN 24 mg/dL (7-18); BUN/Creat Ratio 21.6 RATIO (10-20); Calcium,Total 10.2 mg/dL (8.5-10.1); Chloride 112 mmol/L (98-107); Creatinine, Serum 1.11 mg/dL (0.55-1.02); EST Glomerular Filtration Rate 53 mL/min (>60); Est Glom Filt Rate - Afr Amer 65 mL/min (>60); Globulin 2.7 g/dL (2.2-4.2); Glucose 97 mg/dL (74-106); Phosphorus 2.7 mg/dL (2.5-4.9); Potassium 4.9 mmol/L (3.5-5.1); Sodium Level 142 mmol/L (136-145); Uric Acid 5.2 mg/dL (2.6-6.0)
[2022-05-20 10:32] LABS: Tacrolimus (FK506) 6.1 ng/mL (2.0-20.0)
== END 2022-05-17 18:00 | disposition home or self-care (01) ==
LOC: MTLAB 07:00
PROVIDERS: PCP Family Medicine
DX: Z48.298 Encounter for aftercare following other organ transplant (principal); D84.9 Immunodeficiency, unspecified; D64.9 Anemia, unspecified; M10.9 Gout, unspecified; R79.9 Abnormal finding of blood chemistry, unspecified; R68.89 Other general symptoms and signs; Z94.0 Kidney transplant status; Z79.899 Other long term (current) drug therapy
CPT/HCPCS: 36415; 80053; 80197; 83735; 84100; 84550; 85027

== ENCOUNTER 2022-06-14 07:04 | Outpatient (RCR) | payer MEDICARE, OTHER, SELFPAY ==
[2022-06-06 06:26] VITALS: BMI 27.0
[2022-06-14 10:10] LABS: Absolute Lymphocyte Count 0.52 X10^3/uL (0.83-4.51); Absolute Neutrophil Count 5.6 X10^3/uL (2.0-7.7); Basophil# 0.06 X10^3/uL; Basophil% 0.9 % (0-1); Eosinophil# 0.19 X10^3/uL; Eosinophils% 2.7 % (0-5); Hematocrit 41.9 % (37-47); Hemoglobin 13.2 g/dL (12.0-15.0); Lymphocyte # 0.52 X10^3/ul (0.83-4.51); Lymphocyte % 7.4 % (19-41); Mean Corp Hgb Conc 31.5 g/dL (32-36); Mean Corpuscular Hgb 29.1 pg (27.0-32.0); Mean Corpuscular Volume 92.5 fL (81-99); Mean Platelet Vol. 9.8 fl (6.2-12.0); Monocyte# 0.69 X10^3/uL; Monocyte% 9.8 % (0-10); NRBC Flagged by Analyzer 0 % (0-5); Neutrophil # 5.56 X10^3/uL (2.7-7.7); Neutrophil % 79.1 % (47-70); POSITIVE DIFFERENTIAL YES; Platelet Count 259 K/mm3 (150-450); RBC Distribution Width CV 14.2 % (11.6-14.6); RBC Distribution Width SD 47.8 fl (35.1-43.9); Red Blood Count 4.53 M/mm3 (4.2-5.4)
[2022-06-14 10:14] LABS: Differential Indicated SCAN CRITERIA MET
[2022-06-14 10:36] LABS: Differential Comment SCANNED
[2022-06-14 10:53] LABS: BUN 16 mg/dL (7-18); Chloride 114 mmol/L (98-107); Creatinine, Serum 0.86 mg/dL (0.55-1.02); EST Glomerular Filtration Rate 72 mL/min (>60); Est Glom Filt Rate - Afr Amer 87 mL/min (>60); Glucose 103 mg/dL (74-106); Sodium Level 141 mmol/L (136-145)
[2022-06-17 21:48] LABS: Tacrolimus (FK506) 5.1 ng/mL (2.0-20.0)
== END 2022-06-14 09:04 | disposition home or self-care (01) ==
LOC: MTLAB 07:04
PROVIDERS: PCP Family Medicine
DX: Z48.298 Encounter for aftercare following other organ transplant (principal); D84.9 Immunodeficiency, unspecified; D64.9 Anemia, unspecified; M10.9 Gout, unspecified; R79.9 Abnormal finding of blood chemistry, unspecified; R68.89 Other general symptoms and signs; Z94.0 Kidney transplant status; Z79.899 Other long term (current) drug therapy
CPT/HCPCS: 36415; 80051; 80197; 82374; 82435; 82565; 82947; 84132; 84295; 84520; 85025

== ENCOUNTER 2022-07-12 06:59 | Outpatient (RCR) | payer MEDICARE, OTHER, SELFPAY ==
[2022-07-07 07:36] VITALS: BMI 27.0
[2022-07-12 10:21] LABS: Hematocrit 42.2 % (37-47); Hemoglobin 13.2 g/dL (12.0-15.0); Mean Corp Hgb Conc 31.3 g/dL (32-36); Mean Corpuscular Hgb 28.6 pg (27.0-32.0); Mean Corpuscular Volume 91.5 fL (81-99); Platelet Count 327 K/mm3 (150-450); RBC Distribution Width CV 14.3 % (11.6-14.6); RBC Distribution Width SD 48.2 fl (35.1-43.9); Red Blood Count 4.61 M/mm3 (4.2-5.4); White Blood Count 6.6 K/mm3 (4.4-11.0)
[2022-07-12 10:39] LABS: Protein, Urine (Random) 12.4 mg/dL (<11.9); Protein:Creat Ratio 188 mg/g CRE (0-200)
[2022-07-12 10:49] LABS: AST(SGOT) 13 U/L (15-37); Alanine Aminotransfer ALT/SGPT 25 U/L (13-56); Albumin, Serum 3.5 g/dL (3.2-5.0); Alkaline Phosphatase 101 U/L (45-117); Anion Gap 8 (5-15); BUN 33 mg/dL (7-18); BUN/Creat Ratio 30.3 RATIO (10-20); Bilirubin, Direct 0.11 mg/dL (0.00-0.30); Calcium,Total 10.1 mg/dL (8.5-10.1); Chloride 111 mmol/L (98-107); Cholesterol 174 mg/dL (200); Creatinine, Serum 1.09 mg/dL (0.55-1.02); EST Glomerular Filtration Rate 55 mL/min (>60); Est Glom Filt Rate - Afr Amer 66 mL/min (>60); Ferritin 1369 ng/mL (8-252); Globulin 3.5 g/dL (2.2-4.2); Glucose 109 mg/dL (74-106); High Density Lipoprotein 96 mg/dL; Iron 75 ug/dL (50-170); Iron Binding Capacity,Total 238 ug/dL (250-450); Magnesium 1.8 mg/dL (1.6-2.6); Phosphorus 2.6 mg/dL (2.5-4.9); Potassium 4.3 mmol/L (3.5-5.1); Sodium Level 140 mmol/L (136-145); Triglycerides 97 mg/dL; Uric Acid 4.9 mg/dL (2.6-6.0); Very Low Density Lipoprotein 19 mg/dL (5-40)
[2022-07-14 18:35] LABS: Tacrolimus (FK506) 3.9 ng/mL (2.0-20.0); Transferrin 192 mg/dL (192-364)
== END 2022-07-12 18:00 | disposition home or self-care (01) ==
LOC: MTLAB 06:59
PROVIDERS: PCP Family Medicine
DX: Z48.298 Encounter for aftercare following other organ transplant (principal); D84.9 Immunodeficiency, unspecified; D64.9 Anemia, unspecified; M10.9 Gout, unspecified; R79.9 Abnormal finding of blood chemistry, unspecified; R68.89 Other general symptoms and signs; Z94.0 Kidney transplant status; Z79.899 Other long term (current) drug therapy
CPT/HCPCS: 36415; 80053; 80061; 80197; 82248; 82570; 82728; 83540; 83550; 83735; 84100; 84156; 84466; 84550; 85027

== ENCOUNTER → 2022-07-19 | Outpatient (CLI) | payer MEDICARE, OTHER, SELFPAY ==
--- NOTE | 2022-07-19 11:00 | KNEE_PTH ---
PATIENT: GIUSEPPE XAVIER LOC: [facility] U#:[id number] AGE/SX: 61/F ROOM: RE07/19/[address]: Dr. Diego Desir MD : [id number] BED: DIS: 07/19/2022 SPEC #: [id number] RECD: 07/19/22 15:05 STATUS: STORM RETaryn #: [id number] BRUCE: 07/19/22 11:[address]: Diego Desir DEPT: SURGICAL PATHOLOGY RECD BY: Maru Galdamez ENTERED: 07/20/22 08:03 SP TYPE: TOTAL KNEE OTHR DR: Dr. Raphael Russell MD [facility] Tissues: Knee, NOS Procedures: Decalcification bone/plaque Surgery Specimen Level IV HEADER OPERATION: Left total knee arthroplasty PRE-OP DIAGNOSIS: Grade 4 osteoarthritis left knee TISSUE SUBMITTED: Bone and soft tissue left knee MICROSCOPIC DIAGNOSIS Bone and soft tissue, left knee, total knee replacement/resection: Pieces of bone with degenerative osteoarthritic changes. Fibroadipose tissue, fibroconnective tissue and reactive synovial tissue. SJ:silas 07/23/2022 MICROSCOPIC DESCRIPTION Slides are reviewed. GROSS DESCRIPTION Received is one container designated bone and soft tissue left knee. The specimen consists of multiple fragments of moreno-yellow bone measuring in aggregate 16.0 x 10.0 x 2.0 cm. Also in the specimen container are multiple fragments of yellow-white soft tissue measuring in aggregate 6.5 x 6.0 x 1.0 cm. A number of bony fragments contain articular surfaces consistent with tibial plateau and femoral condyle and displaying prominent osteophyte formation, eburnation, and bone erosion. Drawing Machine Operator sections are submitted in two cassettes as follows: 1 - soft tissue, 2 - bone after decalcification. / AM:silas 07/20/2022 TC:5 CPT: 83337, [id number]
== END | disposition home or self-care (01) ==
LOC: LABSPEC 15:23
PROVIDERS: PCP Family Medicine; Referring Provider Orthopaedic Surgery; Visit Provider Orthopaedic Surgery
DX: M17.12 Unilateral primary osteoarthritis, left knee (principal)
CPT/HCPCS: 88305; 88311

== ENCOUNTER 2022-08-16 07:02 | Outpatient (RCR) | payer MEDICARE, OTHER, SELFPAY ==
[2022-08-03 23:16] VITALS: BMI 27.0
[2022-08-16 09:46] LABS: Hematocrit 39.8 % (37-47); Hemoglobin 12.4 g/dL (12.0-15.0); Mean Corp Hgb Conc 31.2 g/dL (32-36); Mean Corpuscular Hgb 29.2 pg (27.0-32.0); Mean Corpuscular Volume 93.6 fL (81-99); Platelet Count 397 K/mm3 (150-450); RBC Distribution Width CV 14.3 % (11.6-14.6); RBC Distribution Width SD 48.9 fl (35.1-43.9); Red Blood Count 4.25 M/mm3 (4.2-5.4)
[2022-08-16 10:06] LABS: Anion Gap 7 (5-15); BUN 28 mg/dL (7-18); Chloride 112 mmol/L (98-107); Creatinine, Serum 1.03 mg/dL (0.55-1.02); EST Glomerular Filtration Rate 58 mL/min (>60); Est Glom Filt Rate - Afr Amer 70 mL/min (>60); Glucose 107 mg/dL (74-106); Sodium Level 142 mmol/L (136-145)
[2022-08-19 15:31] LABS: Tacrolimus (FK506) 5.4 ng/mL (2.0-20.0)
== END 2022-09-03 20:50 | disposition home or self-care (01) ==
LOC: MTLAB 07:02
PROVIDERS: PCP Family Medicine
DX: Z48.298 Encounter for aftercare following other organ transplant (principal); D84.9 Immunodeficiency, unspecified; M10.9 Gout, unspecified; R79.9 Abnormal finding of blood chemistry, unspecified; R68.89 Other general symptoms and signs; Z94.0 Kidney transplant status; Z79.899 Other long term (current) drug therapy
CPT/HCPCS: 36415; 80051; 80197; 82565; 82947; 84520; 85027

== ENCOUNTER 2022-08-16 18:21 | Emergency (ER) | payer MEDICARE, OTHER, SELFPAY ==
[2022-08-16 18:22] VITALS: BP 147/87; PULSE 83; RESP 14; TEMP 36.1; O2SAT 100; BMI 35.3
--- NOTE | 2022-08-16 19:16 | EX.ED.DYSGE1 ---
HPI History of Present Illness Chief Complaint: Lower Extremity Injury Detail of Chief Complaint: Possible DVT Informant: patient Narrative Narrative: Patient present secondary to left leg pain and concern for DVT. She had a left knee replacement 1 month ago. While she was at physical therapy today she mentioned to the staff that her leg is very painful to the touch around the front of the knee both proximal and distal as well as into the calf. They advise she come in to ensure she does not have a blood clot. She states when sitting at rest she really does not have significant pain. She denies chest pain or shortness of breath. [facility] Medical History (Updated 08/16/22 @ 21:[address] Faustina Byrne MD) 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) Anemia Chronic pain Contact with and (suspected) exposure to other viral communicable diseases Elevated troponin I level (04/25/20) End stage renal failure on dialysis Essential (primary) hypertension Gout Hay fever Hemodialysis patient Kidney disease LLQ abdominal pain Non-ischemic cardiomyopathy Polycystic kidney disease Sepsis Home Medications allopurinol 100 mg tablet 100 mg PO MOWEFR gout 09/01/16 [History Last Taken 03/21/20 10:00] albuterol sulfate 90 mcg/actuation aerosol inhaler 2 puff inhalation Q6H PRN Wheezing 12/27/19 [History Last Taken Unknown] ondansetron HCl 4 mg tablet 4 mg PO Q6H PRN PRN Nausea #30 tabs 03/27/20 [Rx Last Taken Unknown] aspirin 81 mg tablet,delayed release (Adult Aspirin Regimen) 81 mg PO DAILY 07/15/20 [History Last Taken Unknown] magnesium oxide 400 mg PO BID 12/03/21 [History Last Taken Unknown] gabapentin 100 mg capsule 300 mg PO BID 03/25/22 [History Last Taken Unknown] mycophenolate sodium 360 mg tablet,delayed release 1,080 mg PO .COMPLEX 03/25/22 [History Last Taken Unknown] sulfamethoxazole 800 mg-trimethoprim 160 mg tablet (Bactrim DS) 1 tab PO .COMPLEX 03/25/22 [History Last Taken Unknown] tacrolimus 1 mg capsule, immediate-release See Rx Instructions PO Q12H 03/25/22 [History Last Taken Unknown] atorvastatin 20 mg tablet 20 mg PO QHS #90 tabs 04/09/22 [Rx Last Taken Unknown] Allergy/AdvReac Type Severity Reaction Status Date / Time cephalexin Allergy Mild rash Verified 08/16/22 18:24 codeine AdvReac Nausea Verified 08/16/22 18:24 Family History Father Aneurysm Kidney disease Surgical History History of History of cholecystectomy History of left heart catheterization (06/30/20) History of left nephrectomy History of right nephrectomy Renal transplant recipient (09/11/20) s/p port placement Social History Smoking Status: Never smoker alcohol intake: never substance use type: does not use caffeine: Yes what type of physical activity do you participate in: none seatbelt use: always do you feel safe at home: Yes additional social history: [facility] ED Constitutional Constitutional ED: Denies chills or fever(s) Eyes Eyes: Denies change in vision or discharge from eye(s) ENT ENT ED: Denies discharge from eye(s), rhinorrhea or sore throat Cardiovascular Cardiovascular: Denies chest pain or palpitations Respiratory/Chest Respiratory/Chest: Denies cough or dyspnea Gastrointestinal Gastrointestinal: Denies abdominal pain, diarrhea, nausea or vomiting Genitourinary Genitourinary ED: Denies difficulty urinating or dysuria Musculoskeletal Musculoskeletal: Reports extremity pain; Denies back pain Integumentary Denies Abrasions or rash Neurologic Neurologic: Denies headache(s) or weakness Psychiatric Psychiatric: Denies anxiety or depression Allergic/Immunologic Allergic/Immunologic ED: Denies lip swelling or urticaria EXAM Physical Exam Const Vital Signs: 08/16/22 18:22 Temperature 97.0 F L Temperature Source Temporal Pulse Rate 83 Respiratory Rate 14 Blood Pressure 147/87 H Blood Pressure Mean 107 Pulse Ox 100 Oxygen Delivery Method Room Air Positive well nourished and well developed General Appearance ED: well developed HEENT Reports normocephalic and head/scalp atraumatic Eyes PERRL and EOMs intact bilaterally Neck supple Chest Wall inspection of chest normal and palpation of chest normal Resp normal respiratory effort and clear to auscultation bilaterally Cardio regular rate and regular rhythm GI non-tender Palpation: soft Extremity Extremity Narrative: Minimal left calf tenderness. No palpable cords. Healing surgical incisions. Strong distal pulses. Neuro oriented x3 and no sensory deficits noted Sensorium / Orientation: alert Motor Exam: strength 5/5 throughout Psych mental status grossly normal Skin no rashes or lesions noted MDM MDM MDM Narrative Medical decision making narrative: Left lower extremity ultrasound ordered to evaluate for DVT. Radiography Diagnostic Testing: Clinical Impression(s) from Imaging Studies Venous Duplex 08/16/22 19:27 IMPRESSION: There is no demonstrated deep venous thrombosis. Electronically Signed: Poli King MD at 21:21 EDT , Treatment and Re-Evaluation :: No evidence of DVT noted on study. When I spoke with the motorcycle technician, she did note an hypoechoic area just behind the left knee that might be an early Rg's cyst or other more solid lesion. I did discuss this with the patient and she will follow-up with Dr. Desir at her postop visit regarding this. She is reassured with no evidence of DVT and will continue her therapy. Discharge Plan Triage Chief Complaint: Lower Extremity Injury ED Provider: Faustina Byrne Dx/Rx/DC Orders Clinical Impression: Post-op pain Instructions: ED Post Op Wound Check, Pain Prescriptions: No Action albuterol sulfate 90 mcg/actuation HFA aerosol inhaler 2 puff INHALATION Q6H PRN (Reason: Wheezing) tacrolimus 1 mg capsule See Rx Instructions PO Q12H Label Comments: 1 capsules in the AM, 1 at HS Rx Instructions: orally every 12 hours; 2 tabs in the am 8am, 1 tab at 8pm mycophenolate sodium 360 mg tablet,delayed release (DR/EC) 1,080 mg PO .COMPLEX Rx Instructions: 2 in the AM and 2 in the PM sulfamethoxazole-trimethoprim [Bactrim DS] 800-160 mg tablet 1 tab PO .COMPLEX Rx Instructions: 1 TAB orally 3 times a week; magnesium oxide 400 mg magnesium capsule 400 mg PO BID gabapentin 100 mg capsule 300 mg PO BID Label Comments: TAKE 1 CAPSULE BY MOUTH 3 TIMES A DAY DIRECTED allopurinol 100 MG tablet 100 mg PO MOWEFR ondansetron HCl 4 MG tablet 4 mg PO Q6H PRN PRN (Reason: Nausea) Qty: 30 0RF aspirin [Adult Aspirin Regimen] 81 mg tablet,delayed release (DR/EC) 81 mg PO DAILY atorvastatin 20 mg tablet 20 mg PO QHS Qty: 90 3RF Primary Care Provider: Raphael Russell Referrals: Raphael Russell MD [Primary Care Provider] - Diego Desir MD [Med Staff - Active Staff] - Keep Antonio appointment Disposition Disposition: Home, Self Care
--- NOTE | 2022-08-16 19:27 | US_ITS ---
STUDY: VENOUS DOPPLER ULTRASOUND - LEFT LOWER EXTREMITY REASON FOR EXAM: Female, 61 years old. LEG PAIN AND SWELLING undefined -- PAIN TECHNIQUE: Ultrasound evaluation of the deep vein system to include benítez-scale imaging and compression was performed. Benítez-scale imaging and Doppler sonographic evaluation, including duplex spectral analysis and qualitative color flow sonography, was performed. COMPARISON: None. FINDINGS: Common Femoral Vein: Normal compression, spontaneity and augmentation. Normal color Doppler. Common Femoral Vein/Greater Saphenous Junction: Normal compression, spontaneity and augmentation. Normal color Doppler. Superficial Femoral Proximal: Normal compression, spontaneity and augmentation. Normal color Doppler. Superficial Femoral Middle: Normal compression, spontaneity and augmentation. Normal color Doppler. Superficial Femoral Distal: Normal compression, spontaneity and augmentation. Normal color Doppler. Popliteal Vein: Normal compression, spontaneity and augmentation. Normal color Doppler. Reflux noted. Posterior Tibial Vein: Normal compression, spontaneity and augmentation. Normal color Doppler. Peroneal Vein: Normal compression, spontaneity and augmentation. Normal color Doppler. There is a LEFT popliteal cyst. There is no demonstrated deep venous thrombosis. US/Venous Duplex Imag/Limited/Uni IMPRESSION: There is no demonstrated deep venous thrombosis. Electronically Signed: Poli King MD at 21:21 EDT ,
[2022-08-16 21:41] VITALS: BP 140/82; PULSE 78; RESP 16; O2SAT 98
== END 2022-08-16 21:42 | disposition home or self-care (01) ==
PROVIDERS: Emergency Provider Emergency Medicine; PCP Family Medicine; Visit Provider Emergency Medicine
DX: G89.18 Other acute postprocedural pain (principal); D84.9 Immunodeficiency, unspecified; N18.6 End stage renal disease; I12.0 Hypertensive chronic kidney disease with stage 5 chronic kidney disease or end stage renal disease; M79.89 Other specified soft tissue disorders; M25.562 Pain in left knee; M25.561 Pain in right knee; Z48.298 Encounter for aftercare following other organ transplant; M10.9 Gout, unspecified; R79.9 Abnormal finding of blood chemistry, unspecified; R68.89 Other general symptoms and signs; Z94.0 Kidney transplant status; Z79.899 Other long term (current) drug therapy
CPT/HCPCS: 36415; 80051; 80197; 82565; 82947; 84520; 85027; 93971; 99282

== ENCOUNTER → 2022-08-17 | Outpatient (CLI) | payer MEDICARE, OTHER, SELFPAY ==
--- NOTE | 2022-08-17 13:27 | CT_ITS ---
STUDY: CT ABDOMEN AND PELVIS WITHOUT CONTRAST REASON FOR EXAM: Female, 61 years old. Right-sided flank pain, palpable abdominal mass RADIATION DOSAGE (If Supplied By Facility): CTDIvol = ( 16.55 ) mGy, DLP = ( 699.34 ) mGycm TECHNIQUE: Transaxial images were obtained from the dome of the diaphragm to the symphysis pubis without oral contrast, and without intravenous contrast. Sagittal and coronal images were reconstructed. Individualized dose optimization techniques were used for this CT. COMPARISON: 08/01/2021 FINDINGS: The visualized lung bases are unremarkable. The visualized portions of the heart are within normal limits. Normal bilateral adrenal glands. A left kidneys are absent. There is a transplanted kidney in the right lower quadrant. No hydronephrosis or suspicious mass or inflammation noted. There is a small hiatal hernia. Normal small intestine. Scattered colonic diverticula, no CT evidence of acute diverticulitis. The appendix is visualized and appears normal. Appendix seen on coronal recon images 80 through 89 There is diffuse atherosclerotic calcification of the abdominal aorta, without a demonstrated aneurysm. Normal inferior vena cava. Normal retroperitoneum. Normal urinary bladder. Uterus is present, the endometrium cannot be directly evaluated with CT. No evidence of hernia or suspicious subcutaneous abnormality to explain the patient''s palpable bulge. Degenerative bony changes noted throughout the lumbar spine and pelvis. CT/Abdomen/Pelvis without Cont IMPRESSION: Normal CT appearance to a transplanted right kidney. No hydronephrosis or suspicious mass noted. [place] kidneys have been previously removed, no suspicious soft tissue density in the nephrectomy beds. Stable postsurgical changes in the left lobe of the liver with stable numerous hepatic cysts, no specific follow-up needed Colonic diverticulosis. No free intraperitoneal fluid, air, or suspicious adenopathy, normal appendix visualized No interval change Electronically Signed: Francisco Anders MD at 7:53 EDT ,
== END | disposition home or self-care (01) ==
LOC: CT 13:25
PROVIDERS: PCP Family Medicine; Referring Provider Family Medicine; Visit Provider Family Medicine
DX: R10.84 Generalized abdominal pain (principal)
CPT/HCPCS: 74176

== ENCOUNTER 2022-09-13 07:00 | Outpatient (RCR) | payer MEDICARE, OTHER, SELFPAY ==
[2022-09-03 20:51] VITALS: BMI 27.0
[2022-09-13 09:56] LABS: Hematocrit 40.8 % (37-47); Hemoglobin 12.9 g/dL (12.0-15.0); Mean Corp Hgb Conc 31.6 g/dL (32-36); Mean Corpuscular Hgb 29.6 pg (27.0-32.0); Mean Corpuscular Volume 93.6 fL (81-99); Platelet Count 335 K/mm3 (150-450); RBC Distribution Width CV 13.3 % (11.6-14.6); RBC Distribution Width SD 45.3 fl (35.1-43.9); Red Blood Count 4.36 M/mm3 (4.2-5.4); White Blood Count 8.9 K/mm3 (4.4-11.0)
[2022-09-13 10:12] LABS: Albumin, Serum 3.5 g/dL (3.2-5.0); BUN 35 mg/dL (7-18); BUN/Creat Ratio 35.5 RATIO (10-20); Creatinine, Serum 0.99 mg/dL (0.55-1.02); EST Glomerular Filtration Rate 61 mL/min (>60); Est Glom Filt Rate - Afr Amer 74 mL/min (>60); Glucose 109 mg/dL (74-106); Protein, Total 6.6 g/dL (6.4-8.2)
[2022-09-13 10:13] LABS: ALB/GLOB Ratio 1.1 RATIO (0.9-2.4); AST(SGOT) 14 U/L (15-37); Alanine Aminotransfer ALT/SGPT 21 U/L (13-56); Alkaline Phosphatase 113 U/L (45-117); Anion Gap 1 (5-15); Chloride 111 mmol/L (98-107); Globulin 3.1 g/dL (2.2-4.2); Magnesium 2.2 mg/dL (1.6-2.6); Phosphorus 1.8 mg/dL (2.5-4.9); Potassium 4.4 mmol/L (3.5-5.1); Sodium Level 138 mmol/L (136-145)
== END 2022-10-03 05:19 | disposition home or self-care (01) ==
LOC: MTLAB 07:00
PROVIDERS: PCP Family Medicine
DX: Z48.298 Encounter for aftercare following other organ transplant (principal); D84.9 Immunodeficiency, unspecified; M10.9 Gout, unspecified; R79.9 Abnormal finding of blood chemistry, unspecified; R68.89 Other general symptoms and signs; Z94.0 Kidney transplant status; Z79.899 Other long term (current) drug therapy; Z79.60 Long term (current) use of unspecified immunomodulators and immunosuppressants
CPT/HCPCS: 36415; 80053; 80197; 83735; 84100; 85027

== ENCOUNTER 2022-11-08 06:59 | Outpatient (RCR) | payer MEDICARE, OTHER, SELFPAY ==
[2022-10-03 05:19] VITALS: BMI 27.0
[2022-11-08 10:52] LABS: Hematocrit 42.3 % (37-47); Hemoglobin 13.3 g/dL (12.0-15.0); Mean Corp Hgb Conc 31.4 g/dL (32-36); Mean Corpuscular Hgb 28.9 pg (27.0-32.0); Mean Corpuscular Volume 91.8 fL (81-99); Mean Platelet Vol. 10.7 fl (6.2-12.0); Platelet Count 301 K/mm3 (150-450); RBC Distribution Width CV 13.9 % (11.6-14.6); RBC Distribution Width SD 46.4 fl (35.1-43.9); Red Blood Count 4.61 M/mm3 (4.2-5.4); White Blood Count 8.1 K/mm3 (4.4-11.0)
[2022-11-08 11:02] LABS: Protein, Urine (Random) 26.3 mg/dL (<11.9); Protein:Creat Ratio 318 mg/g CRE (0-200)
[2022-11-08 11:12] LABS: AST(SGOT) 14 U/L (15-37); Alanine Aminotransfer ALT/SGPT 21 U/L (13-56); Albumin, Serum 3.4 g/dL (3.2-5.0); Alkaline Phosphatase 112 U/L (45-117); Anion Gap 6 (5-15); BUN 38 mg/dL (7-18); BUN/Creat Ratio 39.5 RATIO (10-20); Chloride 113 mmol/L (98-107); Cholesterol 168 mg/dL (200); Creatinine, Serum 0.96 mg/dL (0.55-1.02); EST Glomerular Filtration Rate 63 mL/min (>60); Est Glom Filt Rate - Afr Amer 76 mL/min (>60); GGTP 37 U/L (5-55); Globulin 3.4 g/dL (2.2-4.2); Glucose 107 mg/dL (74-106); High Density Lipoprotein 62 mg/dL; Phosphorus 2.9 mg/dL (2.5-4.9); Potassium 3.9 mmol/L (3.5-5.1); Protein, Total 6.8 g/dL (6.4-8.2); Sodium Level 142 mmol/L (136-145); Triglycerides 160 mg/dL; Very Low Density Lipoprotein 32 mg/dL (5-40)
[2022-11-11 00:06] LABS: Tacrolimus (FK506) 2.7 ng/mL (2.0-20.0)
== END 2022-11-08 18:00 | disposition home or self-care (01) ==
LOC: MTLAB 06:59
PROVIDERS: PCP Family Medicine
DX: Z48.298 Encounter for aftercare following other organ transplant (principal); D84.9 Immunodeficiency, unspecified; R79.9 Abnormal finding of blood chemistry, unspecified; R68.89 Other general symptoms and signs; Z94.0 Kidney transplant status; Z79.899 Other long term (current) drug therapy; Z79.60 Long term (current) use of unspecified immunomodulators and immunosuppressants
CPT/HCPCS: 36415; 80053; 80061; 80197; 82570; 82977; 84100; 84156; 85027

== ENCOUNTER → 2022-11-16 | Outpatient (CLI) | payer MEDICARE, OTHER, SELFPAY ==
[2022-11-16 15:43] LABS: Hematocrit 42.2 % (37-47); Hemoglobin 13.2 g/dL (12.0-15.0); Mean Corp Hgb Conc 31.3 g/dL (32-36); Mean Corpuscular Hgb 28.6 pg (27.0-32.0); Mean Corpuscular Volume 91.5 fL (81-99); Mean Platelet Vol. 10.2 fl (6.2-12.0); Platelet Count 310 K/mm3 (150-450); RBC Distribution Width CV 13.8 % (11.6-14.6); RBC Distribution Width SD 46.5 fl (35.1-43.9); Red Blood Count 4.61 M/mm3 (4.2-5.4); White Blood Count 8.3 K/mm3 (4.4-11.0)
[2022-11-16 15:58] LABS: Microalbumin,Random Urine 80.5 mg/L (NO RANGE EST.); Microalbumin:Creatinine Ratio 79.7 mg/g CRE (<30 mg/g CRE)
[2022-11-16 16:10] LABS: ALB/GLOB Ratio 1.1 RATIO (0.9-2.4); AST(SGOT) 15 U/L (15-37); Alanine Aminotransfer ALT/SGPT 22 U/L (13-56); Albumin, Serum 3.4 g/dL (3.2-5.0); Alkaline Phosphatase 101 U/L (45-117); Anion Gap 3 (5-15); BUN 27 mg/dL (7-18); BUN/Creat Ratio 22.7 RATIO (10-20); Calcium,Total 10.2 mg/dL (8.5-10.1); Chloride 117 mmol/L (98-107); Creatinine, Serum 1.19 mg/dL (0.55-1.02); EST Glomerular Filtration Rate 49 mL/min (>60); Est Glom Filt Rate - Afr Amer 60 mL/min (>60); Ferritin 1384 ng/mL (8-252); Glucose 105 mg/dL (74-106); Iron 62 ug/dL (50-170); Iron Binding Capacity,Total 238 ug/dL (250-450); Magnesium 2.2 mg/dL (1.6-2.6); PERCENT IRON SATURATION 26.1 % (15.0-55.0); Phosphorus 2.2 mg/dL (2.5-4.9); Potassium 4.6 mmol/L (3.5-5.1); Protein, Total 6.4 g/dL (6.4-8.2); Sodium Level 143 mmol/L (136-145); Uric Acid 4.2 mg/dL (2.6-6.0)
[2022-11-19 15:08] LABS: Tacrolimus (FK506) 3.5 ng/mL (2.0-20.0)
== END | disposition home or self-care (01) ==
LOC: MTLAB 13:30
PROVIDERS: PCP Family Medicine; Referring Provider Internal Medicine Nephrology; Visit Provider Internal Medicine Nephrology
DX: Z94.0 Kidney transplant status (principal); Z79.899 Other long term (current) drug therapy; M10.9 Gout, unspecified; D64.9 Anemia, unspecified
CPT/HCPCS: 36415; 80053; 80197; 82043; 82570; 82728; 83540; 83550; 83735; 84100; 84550; 85027

== ENCOUNTER → 2022-12-13 | Outpatient (CLI) | payer MEDICARE, OTHER, SELFPAY ==
[2022-12-13 10:18] LABS: Anion Gap 3 (5-15); BUN 25 mg/dL (7-18); BUN/Creat Ratio 24.8 RATIO (10-20); Calcium,Total 9.7 mg/dL (8.5-10.1); Chloride 117 mmol/L (98-107); Creatinine, Serum 1.01 mg/dL (0.55-1.02); EST Glomerular Filtration Rate 59 mL/min (>60); Est Glom Filt Rate - Afr Amer 72 mL/min (>60); Glucose 103 mg/dL (74-106); Potassium 4.2 mmol/L (3.5-5.1); Sodium Level 141 mmol/L (136-145)
[2022-12-15 18:08] LABS: Tacrolimus (FK506) 4.7 ng/mL (2.0-20.0)
== END | disposition home or self-care (01) ==
LOC: MTLAB 07:04
PROVIDERS: PCP Family Medicine
DX: D84.9 Immunodeficiency, unspecified (principal); Z79.60 Long term (current) use of unspecified immunomodulators and immunosuppressants; Z94.0 Kidney transplant status; Z79.899 Other long term (current) drug therapy; R79.9 Abnormal finding of blood chemistry, unspecified; Z48.298 Encounter for aftercare following other organ transplant; R68.89 Other general symptoms and signs
CPT/HCPCS: 36415; 80048; 80197

== ENCOUNTER → 2022-12-23 | Outpatient (CLI) | payer MEDICARE, OTHER, SELFPAY ==
--- NOTE | 2022-12-23 06:35 | MRI_ITS ---
STUDY: MRI BRAIN WITHOUT CONTRAST REASON FOR EXAM: Female, 62 years old. [place] TECHNIQUE: Standardized multiplanar fat and water weighted pulse sequences were obtained. COMPARISON: None. FINDINGS: Normal size of the ventricles and extra-axial spaces for the patient''s age. Normal white matter tracts of the supratentorial brain. There is no evidence for recent intracranial ischemia or other cause of cytotoxic edema on diffusion weighted imaging (DWI). Normal T2* images of the brain without demonstrated susceptibility artifact. There is no demonstrated hemosiderin stain. Normal bilateral basal ganglia. Normal thalami. There is no extra-axial fluid accumulation. Normal flow voids within the major intracranial circulation suggesting patency by spin echo criteria. Normal sella turcica, pituitary gland, infundibular stalk, optic chiasm and hypothalamus. Normal tectal plate and pineal gland. Normal midbrain, bridgette and medulla. Normal cerebellum. Normal basal cisterns. Normal bilateral temporal bones. Normal bilateral internal auditory canals. No demonstrated orbital abnormality, within the constraints of a routine brain study. Mucosal thickening in the maxillary sinuses consistent with chronic sinusitis. Normal calvarium and skull base. Normal visualized soft tissue structures. Normal visualized upper cervical spine. MRI/Brain without Contrast IMPRESSION: Normal unenhanced MRI of the brain. Bilateral maxillary sinusitis. Electronically Signed: Marcel Kahn MD at 15:31 EDT Reading Location ID and State: [facility] / [place] Tel , Service support ,
== END | disposition home or self-care (01) ==
LOC: MRI 06:31
PROVIDERS: PCP Family Medicine; Referring Provider Internal Medicine Nephrology; Visit Provider Internal Medicine Nephrology
DX: R51.9 Headache, unspecified (principal)
CPT/HCPCS: 70551

== ENCOUNTER → 2023-02-11 | Outpatient (CLI) | payer MEDICARE, OTHER, SELFPAY ==
[2023-02-11 12:14] LABS: Absolute Lymphocyte Count 0.38 X10^3/uL (0.83-4.51); Absolute Neutrophil Count 11.2 X10^3/uL (2.0-7.7); Basophil# 0.03 X10^3/uL; Basophil% 0.2 % (0-1); Eosinophil# 0.03 X10^3/uL; Eosinophils% 0.2 % (0-5); Hematocrit 39.8 % (37-47); Hemoglobin 12.5 g/dL (12.0-15.0); Lymphocyte # 0.38 X10^3/ul (0.83-4.51); Mean Corp Hgb Conc 31.4 g/dL (32-36); Mean Corpuscular Hgb 28.7 pg (27.0-32.0); Mean Corpuscular Volume 91.5 fL (81-99); Mean Platelet Vol. 10.2 fl (6.2-12.0); Monocyte# 1.15 X10^3/uL; Monocyte% 8.9 % (0-10); NRBC Flagged by Analyzer 0 % (0-5); Neutrophil # 11.21 X10^3/uL (2.7-7.7); Neutrophil % 87.2 % (47-70); POSITIVE DIFFERENTIAL YES; Platelet Count 251 K/mm3 (150-450); RBC Distribution Width CV 14.4 % (11.6-14.6); RBC Distribution Width SD 48.4 fl (35.1-43.9); Red Blood Count 4.35 M/mm3 (4.2-5.4); White Blood Count 12.9 K/mm3 (4.4-11.0)
[2023-02-11 12:17] LABS: Differential Indicated SCAN CRITERIA MET
[2023-02-11 12:59] LABS: ALB/GLOB Ratio 0.8 RATIO (0.9-2.4); AST(SGOT) 12 U/L (15-37); Alanine Aminotransfer ALT/SGPT 27 U/L (13-56); Albumin, Serum 3.1 g/dL (3.2-5.0); Alkaline Phosphatase 81 U/L (45-117); Anion Gap 6 (5-15); BUN 25 mg/dL (7-18); BUN/Creat Ratio 19.5 RATIO (10-20); Calcium,Total 9.5 mg/dL (8.5-10.1); Chloride 107 mmol/L (98-107); Creatinine, Serum 1.28 mg/dL (0.55-1.02); EST Glomerular Filtration Rate 45 mL/min (>60); Est Glom Filt Rate - Afr Amer 55 mL/min (>60); Globulin 3.7 g/dL (2.2-4.2); Glucose 123 mg/dL (74-106); Potassium 4.2 mmol/L (3.5-5.1); Protein, Total 6.8 g/dL (6.4-8.2); Sodium Level 137 mmol/L (136-145)
[2023-02-12 10:08] LABS: Lyme Scn Total Ab w/Rflx Negative (Negative)
[2023-02-14 16:09] LABS: ANTINUCLEAR ANTIBODIES DIRECT Negative (Negative)
== END | disposition home or self-care (01) ==
LOC: MTLAB 10:42
PROVIDERS: PCP Family Medicine; Referring Provider Family Medicine; Visit Provider Family Medicine
DX: M25.50 Pain in unspecified joint (principal); R53.81 Other malaise
CPT/HCPCS: 36415; 80053; 84443; 85025; 86038; 86140; 86618

== ENCOUNTER 2023-02-14 07:10 | Outpatient (RCR) | payer MEDICARE, OTHER, SELFPAY ==
[2022-12-04 02:21] VITALS: BMI 27.0
[2023-02-14 10:24] LABS: Absolute Lymphocyte Count 0.71 X10^3/uL (0.83-4.51); Absolute Neutrophil Count 15.3 X10^3/uL (2.0-7.7); Basophil# 0.05 X10^3/uL; Basophil% 0.3 % (0-1); Eosinophil# 0.01 X10^3/uL; Eosinophils% 0.1 % (0-5); Hematocrit 38.9 % (37-47); Hemoglobin 12.5 g/dL (12.0-15.0); Lymphocyte # 0.71 X10^3/ul (0.83-4.51); Lymphocyte % 4.2 % (19-41); Mean Corp Hgb Conc 32.1 g/dL (32-36); Mean Corpuscular Hgb 28.7 pg (27.0-32.0); Mean Corpuscular Volume 89.2 fL (81-99); Mean Platelet Vol. 10.7 fl (6.2-12.0); Monocyte% 4.7 % (0-10); NRBC Flagged by Analyzer 0 % (0-5); Neutrophil # 15.28 X10^3/uL (2.7-7.7); Neutrophil % 89.5 % (47-70); Platelet Count 360 K/mm3 (150-450); RBC Distribution Width CV 14.5 % (11.6-14.6); Red Blood Count 4.36 M/mm3 (4.2-5.4); White Blood Count 17.1 K/mm3 (4.4-11.0)
[2023-02-14 10:44] LABS: ALB/GLOB Ratio 0.8 RATIO (0.9-2.4); AST(SGOT) 10 U/L (15-37); Alanine Aminotransfer ALT/SGPT 23 U/L (13-56); Albumin, Serum 2.8 g/dL (3.2-5.0); Alkaline Phosphatase 93 U/L (45-117); Anion Gap 6 (5-15); BUN 45 mg/dL (7-18); BUN/Creat Ratio 38.5 RATIO (10-20); Chloride 110 mmol/L (98-107); Creatinine, Serum 1.17 mg/dL (0.55-1.02); EST Glomerular Filtration Rate 50 mL/min (>60); Est Glom Filt Rate - Afr Amer 61 mL/min (>60); Globulin 3.6 g/dL (2.2-4.2); Glucose 120 mg/dL (74-106); Potassium 4.4 mmol/L (3.5-5.1); Protein, Total 6.4 g/dL (6.4-8.2); Sodium Level 139 mmol/L (136-145)
[2023-02-14 12:47] LABS: Color, Urine Yellow (Yellow); Glucose, Dipstick Normal (Normal); Ketone-Dipstick Negative (Negative); Leukocyte Esterase-Dipstick 100 /ul (Negative); Nitrite-Dipstick Negative (Negative); Occult Blood-Urine 10 /ul (Negative); Protein-Dipstick 15 mg/dl (Negative); Specific Gravity, Urine 1.015 (1.002-1.030); Urine Bilirubin Dipstick Negative (Negative); Urine Clarity Clear (Clear); Urine Urobilinogen Normal (Normal)
== END 2023-02-14 18:00 | disposition home or self-care (01) ==
LOC: MTLAB 07:10
PROVIDERS: PCP Family Medicine
DX: R68.89 Other general symptoms and signs; Z94.0 Kidney transplant status; Z79.899 Other long term (current) drug therapy; Z79.60 Long term (current) use of unspecified immunomodulators and immunosuppressants; I10 Essential (primary) hypertension; E83.9 Disorder of mineral metabolism, unspecified; M89.9 Disorder of bone, unspecified
CPT/HCPCS: 36415; 80053; 80197; 81002; 85025; 87077; 87086; 87088; 87186

== ENCOUNTER → 2023-02-15 | Outpatient (CLI) | payer MEDICARE, OTHER, SELFPAY ==
--- NOTE | 2023-02-15 19:26 | US_ITS ---
INDICATION: RT RENAL TRANSPLANT- having voiding issues EXAMINATION: Ultrasound US Kidney(s) complete (eg, kidneys and bladder) TECHNIQUE: Benítez scale and color doppler images were obtained of the kidneys. COMPARISON: CT abdomen pelvis August 17, 2022 FINDINGS: The transplanted kidney is identified in the right side of the pelvis. The transplanted kidney measures 10.4 x 4.5 x 5.5 cm. 2.2 cm questionable cortical cyst versus artifact. 5 mm possible nonobstructing stone in the lower pole. No lilli hydronephrosis. No perinephric collection. The bladder is incompletely distended at 60 mL. Postvoid residual of 10 mL. No bladder mass or calculi identified. US/Transplanted Kidney IMPRESSION: 5 mm possible nonobstructing stone in the transplanted kidney. No lilli hydronephrosis. Electronically Signed: Delroy Rogers MD at 20:10 EDT ,
== END | disposition home or self-care (01) ==
LOC: US 19:25
PROVIDERS: PCP Family Medicine; Visit Provider Family Medicine
DX: R10.9 Unspecified abdominal pain (principal)
CPT/HCPCS: 76776

== ENCOUNTER → 2023-03-03 | Outpatient (CLI) | payer MEDICARE, OTHER, SELFPAY | END | disposition home or self-care (01) | PROVIDERS: PCP Family Medicine; Referring Provider Family Medicine; Visit Provider Family Medicine | DX: N39.0 Urinary tract infection, site not specified (principal) | CPT/HCPCS: 87086; 87088 ==

== ENCOUNTER 2023-03-14 07:03 | Outpatient (RCR) | payer MEDICARE, OTHER, SELFPAY ==
[2023-03-06 04:58] VITALS: BMI 27.0
[2023-03-14 10:13] LABS: Absolute Lymphocyte Count 1.43 X10^3/uL (0.83-4.51); Absolute Neutrophil Count 9.6 X10^3/uL (2.0-7.7); Basophil# 0.12 X10^3/uL; Basophil% 0.9 % (0-1); Eosinophil# 0.44 X10^3/uL; Eosinophils% 3.3 % (0-5); Hematocrit 40.8 % (37-47); Hemoglobin 12.7 g/dL (12.0-15.0); Lymphocyte # 1.43 X10^3/ul (0.83-4.51); Lymphocyte % 10.8 % (19-41); Mean Corp Hgb Conc 31.1 g/dL (32-36); Mean Corpuscular Hgb 29.1 pg (27.0-32.0); Mean Corpuscular Volume 93.6 fL (81-99); Mean Platelet Vol. 10.4 fl (6.2-12.0); Monocyte# 1.34 X10^3/uL; Monocyte% 10.2 % (0-10); NRBC Flagged by Analyzer 0 % (0-5); Neutrophil # 9.64 X10^3/uL (2.7-7.7); Neutrophil % 73.1 % (47-70); Platelet Count 344 K/mm3 (150-450); RBC Distribution Width CV 14.9 % (11.6-14.6); RBC Distribution Width SD 51.7 fl (35.1-43.9); Red Blood Count 4.36 M/mm3 (4.2-5.4); White Blood Count 13.2 K/mm3 (4.4-11.0)
[2023-03-14 11:15] LABS: ALB/GLOB Ratio 1.1 RATIO (0.9-2.4); AST(SGOT) 10 U/L (15-37); Alanine Aminotransfer ALT/SGPT 29 U/L (13-56); Albumin, Serum 3.4 g/dL (3.2-5.0); Alkaline Phosphatase 115 U/L (45-117); Anion Gap 7 (5-15); BUN 43 mg/dL (7-18); BUN/Creat Ratio 36.4 RATIO (10-20); Calcium,Total 11.2 mg/dL (8.5-10.1); Chloride 110 mmol/L (98-107); Creatinine, Serum 1.18 mg/dL (0.55-1.02); EST Glomerular Filtration Rate 50 mL/min (>60); Est Glom Filt Rate - Afr Amer 60 mL/min (>60); Globulin 3.1 g/dL (2.2-4.2); Glucose 109 mg/dL (74-106); Potassium 4.4 mmol/L (3.5-5.1); Protein, Total 6.5 g/dL (6.4-8.2); Sodium Level 141 mmol/L (136-145)
[2023-03-16 07:08] LABS: Tacrolimus (FK506) 4.5 ng/mL (2.0-20.0)
== END 2023-03-14 18:00 | disposition home or self-care (01) ==
LOC: MTLAB 07:03
PROVIDERS: PCP Family Medicine
DX: Z94.0 Kidney transplant status (principal); Z79.899 Other long term (current) drug therapy; Z79.60 Long term (current) use of unspecified immunomodulators and immunosuppressants; E83.9 Disorder of mineral metabolism, unspecified; M89.9 Disorder of bone, unspecified; R30.0 Dysuria; I12.9 Hypertensive chronic kidney disease with stage 1 through stage 4 chronic kidney disease, or unspecified chronic kidney disease; N18.31 Chronic kidney disease, stage 3a; D63.1 Anemia in chronic kidney disease; R79.9 Abnormal finding of blood chemistry, unspecified
CPT/HCPCS: 36415; 80053; 80197; 85025

== ENCOUNTER → 2023-05-03 | Outpatient (CLI) | payer MEDICARE, OTHER, SELFPAY ==
[2023-05-07 16:09] LABS: HPV APTIMA, High Risk Negative (Negative)
== END | disposition home or self-care (01) ==
PROVIDERS: Visit Provider Nurse Practitioner Women's Health
DX: Z12.4 Encounter for screening for malignant neoplasm of cervix (principal)
CPT/HCPCS: 87624; 88175; G0145

== ENCOUNTER 2023-05-16 07:00 | Outpatient (RCR) | payer MEDICARE, OTHER, SELFPAY ==
[2023-04-05 23:07] VITALS: BMI 27.0
[2023-05-16 09:57] LABS: Hematocrit 42.6 % (37-47); Hemoglobin 13.1 g/dL (12.0-15.0); Mean Corp Hgb Conc 30.8 g/dL (32-36); Mean Corpuscular Hgb 28.9 pg (27.0-32.0); Mean Corpuscular Volume 93.8 fL (81-99); Mean Platelet Vol. 10.2 fl (6.2-12.0); Platelet Count 282 K/mm3 (150-450); RBC Distribution Width CV 13.7 % (11.6-14.6); RBC Distribution Width SD 46.5 fl (35.1-43.9); Red Blood Count 4.54 M/mm3 (4.2-5.4); White Blood Count 6.8 K/mm3 (4.4-11.0)
[2023-05-16 10:19] LABS: ALB/GLOB Ratio 0.9 RATIO (0.9-2.4); AST(SGOT) 12 U/L (15-37); Alanine Aminotransfer ALT/SGPT 23 U/L (13-56); Albumin, Serum 3.2 g/dL (3.2-5.0); Alkaline Phosphatase 95 U/L (45-117); Anion Gap 3 (5-15); BUN 20 mg/dL (7-18); BUN/Creat Ratio 17.5 RATIO (10-20); Calcium,Total 10.1 mg/dL (8.5-10.1); Chloride 112 mmol/L (98-107); Cholesterol 158 mg/dL (200); Creatinine, Serum 1.14 mg/dL (0.55-1.02); EST Glomerular Filtration Rate 52 mL/min (>60); Est Glom Filt Rate - Afr Amer 62 mL/min (>60); GGTP 31 U/L (5-55); Globulin 3.4 g/dL (2.2-4.2); Glucose 109 mg/dL (74-106); High Density Lipoprotein 74 mg/dL; Phosphorus 1.9 mg/dL (2.5-4.9); Potassium 4.5 mmol/L (3.5-5.1); Protein, Total 6.6 g/dL (6.4-8.2); Sodium Level 141 mmol/L (136-145); Triglycerides 80 mg/dL; Very Low Density Lipoprotein 16 mg/dL (5-40)
[2023-05-16 10:21] LABS: Protein, Urine (Random) 24.3 mg/dL (<11.9); Protein:Creat Ratio 282 mg/g CRE (0-200)
[2023-05-16 14:15] LABS: Bilirubin, Direct 0.14 mg/dL (0.00-0.30)
[2023-05-19 01:06] LABS: Tacrolimus (FK506) 5.9 ng/mL (2.0-20.0)
== END 2023-06-05 18:00 | disposition home or self-care (01) ==
LOC: MTLAB 07:00
PROVIDERS: PCP Family Medicine
DX: Z94.0 Kidney transplant status (principal); Z79.899 Other long term (current) drug therapy; R79.9 Abnormal finding of blood chemistry, unspecified; R68.89 Other general symptoms and signs; Z48.298 Encounter for aftercare following other organ transplant
CPT/HCPCS: 36415; 80053; 80061; 80197; 82248; 82570; 82977; 84100; 84156; 85027

== ENCOUNTER → 2023-05-16 | Outpatient (CLI) | payer MEDICARE, OTHER, SELFPAY ==
--- NOTE | 2023-05-16 07:57 | BI_ITS ---
MAMMOGRAPHY - BILATERAL SCREENING REASON FOR EXAM: Female, 62 years old. Routine annual screening examination. PERTINENT HISTORY: Non-contributory. TECHNIQUE: Digital bilateral breast ha (3D mammographic acquisition) in the CC and MLO projections. 2-D mediolateral oblique (MLO) and craniocaudad (CC) views of both breasts were obtained. CAD: Full Field Digital Mammography with Computer Added Detection was performed. COMPARISON: Comparison is made with prior study dated May 13, 2022 and November 30, 2018. FINDINGS: Breast Composition: The breasts are almost entirely fatty. There are no dominant masses or suspicious calcifications. Stable bilateral secretory calcifications. Stable 9 mm well-defined nodule in the upper-outer aspect of the left breast suggestive of a small lymph node. No other significant abnormalities are identified. There has been no significant change since the prior study. BI/SCRN MAMM (CAD)W/HA BILAT IMPRESSION: Stable bilateral screening mammogram. Yearly follow-up mammogram recommended. (A) ASSESSMENT CATEGORY: BIRADS Category 2: Benign. A letter regarding these results will be sent to the patient by the facility within 30 days. Approximately 10% of breast cancers are not detected by mammography. A normal mammogram should not delay biopsy of a clinically suspicious abnormality. [id number] Electronically Signed: Jourdan Marquis MD at 8:58 EST ,
== END | disposition home or self-care (01) ==
LOC: OPBI 07:57
PROVIDERS: PCP Family Medicine; Referring Provider Nurse Practitioner Women's Health; Visit Provider Nurse Practitioner Women's Health
DX: Z12.31 Encounter for screening mammogram for malignant neoplasm of breast (principal)
CPT/HCPCS: 77063; 77067

== ENCOUNTER 2023-05-25 09:35 | Day surgery (SDC) | payer MEDICARE, OTHER, SELFPAY ==
[2023-05-25 10:02] VITALS: BP 133/86; PULSE 82; RESP 16; TEMP 36.8; O2SAT 100; BMI 37.4
[2023-05-25] MEDS: Lactated Ringers 1,000 ML 15 ML IV (10:07)
--- NOTE | 2023-05-25 12:03 | PCM.HP.STD ---
HPI - General General Date of Service: 05/25/23 Chief Complaint: Bladder stone HPI Narrative GIUSEPPE XAVIER, is a 62 F who presents for cystoscopy and laser of a bladder stone and looks like it stuck in the lateral wall of her bladder explained to the patient and may be stuck in a stitch or a clip will see if we can remove the stone and also remove the offending material she has a history of a kidney transplant. [facility] Medical History (Updated 05/09/23 @ 13:15 by Kely Sam) 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) Anemia Arthritis Back pain Cardiology follow-up encounter Chronic pain Contact with and (suspected) exposure to other viral communicable diseases COVID-19 DVT (deep venous thrombosis) End stage renal failure on dialysis Essential (primary) hypertension Gout Hemodialysis patient High cholesterol History of CHF (congestive heart failure) History of diverticulitis History of echocardiogram History of edema History of stress test LLQ abdominal pain Non-ischemic cardiomyopathy Non-smoker Polycystic kidney disease Post-menopausal Sepsis Syncope Wears dentures Wears glasses Wears partial dentures Home Medications allopurinol 100 mg tablet 100 mg PO MOWEFR gout 09/01/16 [History Last Taken 03/21/20 10:00] albuterol sulfate 90 mcg/actuation aerosol inhaler 2 puff inhalation Q6H PRN Wheezing 12/27/19 [History Last Taken Unknown] ondansetron HCl 4 mg tablet 4 mg PO Q6H PRN PRN Nausea #30 tabs 03/27/20 [Rx Last Taken Unknown] aspirin 81 mg tablet,delayed release (Adult Aspirin Regimen) 81 mg PO DAILY 07/15/20 [History Last Taken Unknown] magnesium oxide 400 mg PO BID 12/03/21 [History Last Taken Unknown] tacrolimus 1 mg capsule, immediate-release See Rx Instructions PO Q12H 03/25/22 [History Last Taken 05/25/23] mycophenolate sodium 180 mg tablet,delayed release 180 mg PO BID 11/09/22 [History Last Taken 05/25/23] oxycodone 5 mg tablet 5 mg PO Q6H PRN pain 11/09/22 [History Last Taken Unknown] gabapentin 100 mg capsule 100 mg PO DAILY 05/03/23 [History Last Taken Unknown] atorvastatin 20 mg tablet 20 mg PO QHS 05/09/23 [History Last Taken Unknown] sulfamethoxazole 800 mg-trimethoprim 160 mg tablet 1 tab PO MOWEFR 05/09/23 [History Last Taken Unknown] Allergy/AdvReac Type Severity Reaction Status Date / Time cephalexin Allergy Mild rash Verified 05/25/23 10:01 codeine AdvReac Nausea Verified 05/25/23 10:01 Family History Father Aneurysm Kidney disease Surgical History (Updated 05/09/23 @ 13:15 by Kely Sam) History of History of cholecystectomy History of knee replacement procedure of left knee (~07/2022) History of left heart catheterization (06/30/20) History of left nephrectomy History of right nephrectomy Hx of colonoscopy Hx of kidney transplant Hx of surgical procedure Renal transplant recipient (09/11/20) s/p port placement Social History Smoking Status: Never smoker alcohol intake: never substance use type: does not use caffeine: Yes what type of physical activity do you participate in: none seatbelt use: always do you feel safe at home: Yes additional social history: [id number] Vital Signs Vital Signs Vital Signs: 05/25/23 10:02 05/25/23 10:02 Temperature 98.2 F Temperature Source Temporal Pulse Rate 82 Respiratory Rate 16 Respiratory Pattern Normal Blood Pressure 133/86 H Blood Pressure Mean 101 Blood Pressure Source Manual Blood Pressure Position Sitting Blood Pressure Location Right Arm Pulse Ox 100 Oxygen Delivery Method Room Air Weight Weight: 87 kg Body Mass Index (BMI) 37.4
[2023-05-25] MEDS: Ciprofloxacin 400 MG/200 ML BAG 200 MG IV (12:43)
--- NOTE | 2023-05-25 13:03 | DCINST_ITS ---
Discharge Instructions Diet Discharge Diet: No restrictions Activity Discharge Activity: Return to Normal Activity and May Not Drive (while taking narcotic pain medications.) Dressing / Incision Call your doctor if you observe: Fever of 101 or Higher Follow Up Care Please Follow Up With: Jamie Rhodes MD When: Call [phone] for an appointment Test Results: Test results from this visit will be discussed in further detail at your follow- up appointment, if applicable. Discharge Plan Admission Attending Provider: Jamie Rhodes Primary Care Provider: Raphael Russell Discharge Orders/Prescriptions Prescriptions: No Action albuterol sulfate 90 mcg/actuation HFA aerosol inhaler 2 puff INHALATION Q6H PRN (Reason: Wheezing) tacrolimus 1 mg capsule See Rx Instructions PO Q12H Patient Comments: 1 capsules in the AM, 1 at HS Rx Instructions: orally every 12 hours; 2 tabs in the am 8am, 1 tab at 8pm magnesium oxide 400 mg magnesium capsule 400 mg PO BID oxycodone 5 mg tablet 5 mg PO Q6H PRN (Reason: pain) mycophenolate sodium 180 mg tablet,delayed release (DR/EC) 180 mg PO BID gabapentin 100 mg capsule 100 mg PO DAILY allopurinol 100 MG tablet 100 mg PO MOWEFR ondansetron HCl 4 MG tablet 4 mg PO Q6H PRN PRN (Reason: Nausea) Qty: 30 0RF sulfamethoxazole-trimethoprim 800-160 mg tablet 1 tab PO MOWEFR Patient Comments: TAKE 1 TABLET BY MOUTH THREE TIMES A WEEK. atorvastatin 20 mg tablet 20 mg PO QHS aspirin [Adult Aspirin Regimen] 81 mg tablet,delayed release (DR/EC) 81 mg PO DAILY Referrals / Follow Up: Raphael Russell MD [Primary Care Provider] - Disposition Disposition (needs filled in before D/C Order can be placed): Home, Self Care
--- NOTE | 2023-05-25 13:04 | OP.PCM_ITS ---
Report of Operation Date of Procedure: 05/25/23 Pre-Operative Diagnosis: Bladder stone Post-Operative Diagnosis: The same Surgery/Procedure Performed:: Laser of bladder stone removal fragments Description of Surgical Findings:: Patient was taken back to the operating room after smooth induction of general anesthesia. The urethra and genitals were prepped and draped in usual sterile fashion. Went into the bladder using a 24 [place] cystoscope. Then using the laser bridge we introduced a laser fiber into the bladder . The stone measured < 2,5cm in size, it was stuck on the patient's right lateral wall of the bladder. The implanted ureteral orifice was not visible. The stone was then lasered using laser lithotripsy the small little pieces all the pieces were evacuated on the bladder. After all the stones were removed then the scope was removed there was minimal bleeding. Successful removal of stone and bladder I did not identify a stitch or any foreign object the stone was just stuck on the lateral side of the bladder. Bladder drained patient taken back to PACU in good condition. Surgeon: Jamie Rhodes Type of Anesthesia: General Drains: none Admit VTE Documentation VTE Present on Admission: No VTE Mechan Device Prophylaxis: SCD's VTE Pharm Prophylaxis ordered?: No
[2023-05-25 13:16] VITALS: BP 118/72; BP 133/86; PULSE 70; RESP 16; TEMP 36.6; O2SAT 100
[2023-05-25 13:30] VITALS: BP 114/67; BP 133/86; PULSE 70; RESP 16; O2SAT 98
[2023-05-25 13:45] VITALS: BP 103/84; BP 133/86; PULSE 68; RESP 16; O2SAT 99
[2023-05-25 13:55] VITALS: BP 108/71; BP 133/86; PULSE 69; RESP 16; TEMP 36.1; O2SAT 95
[2023-05-25 14:11] VITALS: BP 133/86
== END 2023-05-25 14:44 | disposition home or self-care (01) ==
LOC: SDC 09:36 → AC 09:37
PROVIDERS: PCP Family Medicine; Referring Provider Urology; Visit Provider Urology
PROC: (CPT 52317; principal; 2023-05-25 11:55)
DX: N21.0 Calculus in bladder (principal); I13.2 Hypertensive heart and chronic kidney disease with heart failure and with stage 5 chronic kidney disease, or end stage renal disease; I50.32 Chronic diastolic (congestive) heart failure; I50.22 Chronic systolic (congestive) heart failure; N18.6 End stage renal disease; G89.29 Other chronic pain; M10.9 Gout, unspecified; E78.00 Pure hypercholesterolemia, unspecified; I10 Essential (primary) hypertension; M19.90 Unspecified osteoarthritis, unspecified site; Q61.3 Polycystic kidney, unspecified; Z79.899 Other long term (current) drug therapy; Z79.82 Long term (current) use of aspirin; Z86.16 Personal history of COVID-19; Z78.0 Asymptomatic menopausal state
CPT/HCPCS: 52317; 00910; J7120; J0744; J2405

== ENCOUNTER → 2023-06-02 | Outpatient (CLI) | payer MEDICARE, OTHER, SELFPAY ==
--- OUTSIDE RECORDS SUMMARY | 2023-06-02 09:26 | XMS RPT_ITS | CCD ---
Author Name Unknown Address [address] [place] [address] Organization [facility] Care Team Providers Care Tapper Shank Name Role Phone Joselyn Foreman Unavailable Unavailable Unavailable Unavailable Unavailable Unavailable Unavailable Unavailable Unavailable Unavailable Unavailable Unavailable Unavailable Unavailable Yana Torres Unavailable Unavailable FELICIA BAPTISTE Attending Unavailab CARSON Street Primary Care Unavailable Carson Russell Primary Care Provider [phone] Carson Russell Unavailable Nelson Bass Unavailable SYSTEM, PROVIDER NOT IN Referring Unavaila ble SYSTEM, PROVIDER NOT IN Attending Unavaila ble CARSON RUSSELL Primary Care Unavailable Carson Russell Unavailable Unavailable Patrick Martinez Unavailable Unavailable Maggie Mayorga Unavailable Unavailable Mayra [place] Unavailable Unavailable Carson Russell MD Primary Care Provider Junaid Lau MD Unavailable Krzysztof Wu MD Unavailable Carson Russell MD Primary Care Provider Junaid Lau MD Unavailable Krzysztof Wu MD Unavailable PHYSICIAN, PATIENT UNSURE Primary Care Physician Unavailable JUSTICE BOWMAN MD Attending Unavailable PHYSICIAN, PATIENT UNSURE Primary Care Unavai lable SELF, SELF Referring Unavailable CARSON RUSSELL Primary Care Unavailable SUDHEER BOWMAN Attending Unavailable GWEN DANIELLE Attending Unavailable CARSON RUSSELL Primary Care Unavailable SELF, SELF Referring Unavailable Allergies Allergy Classification Reported Allergen(s) Allergy Type Date of Onset Reaction(s) Facility (17 sources) Codeine; Translations: [codeine] Drug Allergy 08-06-2019 Nausea, Vomiting, Nausea and Vomiting, Feeling nervous (finding), Nausea (finding) [facility] Work Phone: (16 sources) Penicillins; Translations: [Penicillins] Allergy to drug (finding) 08-06-2019 [facility] Work Phone: (4 sources) Cephalexin; Translations: [cephalexin] Drug Allergy 08-22-2019 Itching, Nausea Only, Weal (disorder) [facility] (1 source) Penicillin; Translations: [penicillin] Drug Allergy [facility] Medications Current Medications Medication Drug Class(es) Dates Sig (Normalized) Sig (Original) acetaminophen 325 mg oral tablet (2 sources) Start: 09-16-2020 take 2 tablets by mouth every six hours as needed acetaminophen 325 MG tablet Take 2 tablets by mouth every 6 hours as needed for Mild Pain or Moderate Pain. 120 tablet 0 09/16/2020 Active allopurinol 100 mg oral tablet (17 sources) Xanthine Oxidase Inhibitor Start: 09-26-2020 allopurinol 100 mg oral tablet Dose : 100 mg = 1 tab(s), Mon/Tue/Fri, 0 Refill(s) Start Date: 09/26/20 Status: Ordered Completed/Discontinued Medications Medication Drug Class(es) Dates Sig (Normalized) Sig (Original) 200 actuat albuterol 0.09 mg/actuat metered dose inhaler (16 sources) beta2-Adrenergic Agonist Start: 04-26-2014 take 1-2 puff(s) by inhalation every four to six hours as needed ProAir HFA 108 (90 Base) MCG/ACT Inhalation Aerosol Solution INHALE 1 TO 2 PUFFS EVERY 4 TO 6 HOURS NEEDED. Quantity: 1 Refills: 5 Start : 26-Apr-2014 Active 8.5 GM Inhaler Problems Active Problems Problem Classification Problem Date Documented Date Episodic/Chronic Chronic kidney disease (20 sources) Dependence on 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; Translations: [End-stage renal disease] Onset: 0 10-11-2019 Chronic Chronic kidney disease (2 sources) Chronic kidney disease; Translations: [Chronic kidney disease, stage 3a] Onset: 3 Complication of device; implant or graft (3 sources) Arteriovenous fistula thrombosis; 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, implants and grafts, initial encounter] Onset: 0 10-11-2019 Chronic Deficiency and other anemia (2 sources) Anemia in chronic kidney disease; Translations: [Anemia in chronic kidney disease] Onset: 3 Chronic Disorders of lipid metabolism (1 source) Hyperlipidemia; Translations: [Hyperlipidemia, unspecified] Chronic Essential hypertension (3 sources) Benign hypertension; Translations: [Essential (primary) hypertension] Onset: 3 Chronic Genitourinary congenital anomalies (15 sources) Cystic disease of kidney; 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] Onset: 0 10-11-2019 Chronic Genitourinary congenital anomalies (10 sources) Multiple renal cysts; Translations: [History of Polycystic kidney disease] Episodic Hypertension with complications and secondary hypertension (1 source) Renal hypertension; Translations: [Hypertension secondary to other renal disorders] Chronic Immunity disorders (4 sources) Immunosuppression; Translations: [Immunodeficiency, 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 Other aftercare (2 sources) Transplant follow-up; Translations: [Encounter for aftercare following other organ transplant] Chronic Other aftercare (2 sources) Long-term current use of immunosuppressive drug; Translations: [Other intermodal customer service (current) drug therapy] Episodic Other aftercare (2 sources) Taking high risk medication; Translations: [Other intermodal customer service (current) drug therapy] Episodic Other aftercare (2 sources) Other intermodal customer service (current) drug therapy; Translations: [Other intermodal customer service (current) drug therapy] Onset: 3 Episodic Other nutritional; endocrine; and metabolic disorders (2 sources) Hyperhomocysteinemia ; Translations: [Homocystinuria] Onset: 0 10-11-2019 Chronic Other nutritional; endocrine; and metabolic disorders (2 sources) Obese class I; Translations: [Obesity, unspecified] Onset: 1 09-16-2020 Chronic Other nutritional; endocrine; and metabolic disorders (2 sources) Disorder of mineral metabolism, unspecified; 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, 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 Other screening for suspected conditions (not mental disorders or infectious disease) (4 sources) Blood chemistry abnormal; Translations: [Abnormal finding of blood chemistry, unspecified] Onset: 3 Episodic Residual codes; unclassified (2 sources) Awaiting transplantation of kidney; Translations: [Awaiting organ transplant status] Onset: 1 09-18-2020 Chronic Residual codes; unclassified (2 sources) Other general symptoms and signs; Translations: [Other general symptoms] Episodic Past or Other Problems Problem Classification Problem Date Documented Da te Episodic/Chronic Complication of device; implant or graft (18 sources) Disorder of surgical arteriovenous fistula; Translations: [Unspecified complication of cardiac and vascular prosthetic device, implant and graft, initial encounter] Onset: 04-06-2018 10-11-2019 Episodic Fluid and electrolyte disorders (2 sources) Hyperkalemia; Translations: [Hyperkalemia] Onset: 08-15-2019 10-11-2019 Episodic Other bone disease and musculoskeletal deformities (2 sources) Disorder of bone, unspecified; Translations: [Disorder of bone, unspecified] Onset: 09-28-2022 Episodic Other skin disorders (2 sources) Sebaceous cyst of skin; Translations: [Sebaceous cyst] Onset: 05-22-2013 10-11-2019 Episodic Phlebitis; thrombophlebitis and thromboembolism (4 sources) Acute deep venous thrombosis of axillary vein; Translations: [Acute embolism and thrombosis of unspecified axillary vein] Onset: 05-20-2010 10-11-2019 Episodic Unclassified (20 sources) Patient encounter status; Translations: [Pre-transplant evaluation for kidney transplant] NEGATED: Highlighted row has not occurred!Residual codes; unclassified (20 sources) Disease Episodic Results Test Name Value Interpretation Reference Range Facil ity Vital Signs Date Time Vital Sign Value Performing Clinician Faci lity 03-17-2022 10:57-0400 Body mass index (BMI) [Ratio] 33.4 kg/m2 Jordan Marcial MD Work Phone: [facility] 03-17-2022 10:57-0400 Body temperature 97.3 [degF] Jordan Marcial MD Work Phone: [facility] 03-17-2022 10:57-0400 Body weight 77.56 kg Jordan Marcial MD Work Phone: [facility] 03-17-2022 10:57-0400 Diastolic blood pressure 84 mm[Hg] Jordan Marcial MD Work Phone: [facility] 03-17-2022 10:57-0400 Heart rate 86 /min Jordan Marcial MD Work Phone: [facility] 03-17-2022 10:57-0400 Systolic blood pressure 135 mm[Hg] Jordan Marcial MD Work Phone: [facility] 09-11-2021 14:59-0400 Body mass index (BMI) [Ratio] 32.19 kg/m2 Bunny Susie MBBS Work Phone: [facility] 09-11-2021 14:59-0400 Body temperature 98.1 [degF] Bunny Susie MBBS Work Phone: [facility] 09-11-2021 14:59-0400 Body weight 74.75 kg Bunny Susie MBBS Work Phone: [facility] 09-11-2021 14:59-0400 Diastolic blood pressure 73 mm[Hg] Bunny Susie MBBS Work Phone: [facility] 09-11-2021 14:59-0400 Heart rate 85 /min Bunny Susie MBBS Work Phone: [facility] 09-11-2021 14:59-0400 Systolic blood pressure 121 mm[Hg] Bunny Susie MBBS Work Phone: [facility] 09-27-2019 13:33-0400 BMI (Body Mass Index) 25.11 kg/m2 [facility] Work Phone: 09-27-2019 13:33-0400 Body Temperature 97.7 [degF] Joselyn Foreman [facility] Work Phone: Encounters Encounter Date Encounter Type Care Provider Facility Start: 03-28-2023 ambulatory GWEN Peoples ity:[facility] Start: 09-28-2022 ambulatory SELF SELF Facility:[facility] Start: 05-04-2022 End: 05-05-2022 ambulatory JUSTICE BOWMAN MD Facility:B Start: 05-04-2022 End: 05-04-2022 Patient encounter procedure JUSTICE BOWMAN MD [facility] Start: 03-17-2022 End: 03-17-2022 Office outpatient visit 25 minutes Jordan Marcial MD Work Phone: [facility] Procedures Date Procedure Procedure Detail Performing Clinician Start: 03-17-2022 Creatinine other source Jordan Marcial MD Work Phone: Start: 09-11-2021 Antibody hla class ii high definition panel qual Bunny S Susie MBBS Work Phone: Start: 09-11-2021 Bilirubin direct Bunny Sophia Susie MBBS Work Phone: Start: 09-11-2021 Urnls dip stick/tablet reagent auto microscopy Bunnyalfred Gargi MBBS Work Phone: Start: 09-11-2021 Urnls dip stick/tablet rgnt auto w/o microscopy Bunny S Susie MBBS Work Phone: Start: 09-11-2021 Lipid 1996 panel - Serum or Plasma Bunny Richards MBBS Work Phone: Start: 09-18-2020 History of renal transplant S/P kidney transplant Bunny FARIASBS Work Phone: Start: 04-22-2020 Computerized tomography, limited studies External Transcribed Start: 04-02-2020 Follow-up visit Start: 12-24-2019 Antibody hiv-1 Deepika Padiyar Start: 12-24-2019 Antibody varicella-zoster Deepika Padiyar Start: 12-24-2019 Echocardiography Deepika Padiyar Start: 12-24-2019 Hepatitis b core antibody hbcab total Deepika Padiyar Start: 12-24-2019 Hepatitis b surf antibody hbsab Deepika Padiyar Start: 12-24-2019 Hepatitis c antibody Deepika Padiyar Start: 12-24-2019 Iaad ia hepatitis b surface antigen Deepika Padiyar Start: 12-24-2019 Mycobacterium tuberculosis stimulated gamma interferon [Interpretation] in Blood Qualitative Deepika Padiyar Start: 12-24-2019 SYPHILIS SCREENING WITH REFLEX Deepika Padiyar Start: 11-01-2019 Follow-up visit Start: 09-27-2019 Follow-up visit Start: 08-14-2019 Electrocardiogram Start: 08-10-2019 VASC LAB Arterial Duplex Ultrasound Joselyn Foreman Start: 08-10-2019 VASC LAB Pre-op Vessel Vein Mapping Joselyn Foreman Start: 12-08-2018 Echocardiography Maggie Mayorga Start: 11-24-2018 MRA Head without Contrast Deepika Padiyar Start: 11-24-2018 MRI Brain without Contrast Deepika Padiya r Bilateral total nephrectomy Deepika Padiyar section Mayra [place] History of renal transplant Kidn ey replaced by transplant Bunny UMANA Work Phone: History of renal transplant Kidn ey replaced by transplant Jordan Marcial MD Work Phone: Laparoscopic cholecystectomy Mayra [place] Plan of Treatment Date Care Activity Detail Author Start: 12-17-2027 PNEUMOCOCCAL VACCINE SERIES (4 - PPSV23 if available, else PCV20) PNEUMOCOCCAL VACCINE SERIES (4 - PPSV23 if available, else PCV20) [facility] Start: 09-11-2026 Fasting lipid profile LIPID SCREENIN G [facility] Start: 09-11-2026 Lipid panel LIPID SCREENING [facility] Start: 09-20-2022 End: 09-20-2022 Patient encounter procedure 09/20/2022 Office Visit Transplant Surgery Jordan Marcial MD [address] [place] [address] [facility] Start: 03-17-2022 End: 03-17-2022 Patient encounter procedure 03/17/2022 Office Visit Transplant Surgery Jordan Marcial MD [address] [place] [address] [facility] Start: 02-04-2022 Influenza vaccination INFLUENZA VACC INE (#1) [facility] Start: 05-15-2020 End: 05-15-2020 Office Visit 05/15/2020 Office Visit General Surgery Felicia Baptiste MD [address] [place] [address] [phone] [facility] Start: 02-05-2020 Influenza vaccinatio n given Sequential Influenza Vaccine (#1) [facility] Start: 12-25-2019 Antibody hiv-1 HIV Antigen/An tibody Screen FC-Vsyznbhaic-Maszdx Work Phone: Start: 12-25-2019 Antibody varicella-zoster Varicella Zoster IgG Antibody OB-Ncnkbgyewy-Jebimf Work Phone: Start: 12-25-2019 Echocardiography Echocardiogram [facility] Work Phone: Start: 12-25-2019 Hepatitis b core antibody hbcab total Hepatitis B Core Antibody, Total WI-Mzyobxchzx-Hekgni Work Phone: Start: 12-25-2019 Hepatitis b surf antibody hbsab EP-Iytvxglpmv-Qrbkim Work Phone: Start: 12-25-2019 Hepatitis c antibody Hepatitis C Antibody Test CK-Bfwhhywzff-Tlpqmz Work Phone: Start: 12-25-2019 Iaad ia hepatitis b surface antigen Hepatitis B Surface Antigen ZP-Xhkgpgenbn-Owpnmv Work Phone: Start: 12-25-2019 M. tuberculosis stim IFN-g Ql (Bld) [Interp] T-SPOT. TB XB-Lijibauxve-Chdmhh Work Phone: Start: 12-25-2019 SYPHILIS SCREENING W ITH REFLEX SYPHILIS SCREENING WITH REFLEX NT-Skxhxediwz-Gixfxe Work Phone: Start: 12-01-2019 Screening for malign ant neoplasm of breast MAMMOGRAM SCREENING DISCUSSION [facility] Start: 12-01-2019 Screening mammography MAMMOGRA M SCREENING DISCUSSION [facility] Start: 11-15-2019 Colonoscopy COLORECTAL CAN CER SCREENING DISCUSSION [facility] Start: 11-15-2019 Screening for malign ant neoplasm of colon COLORECTAL CANCER SCREENING DISCUSSION [facility] Start: 2012 Administration of he rpes zoster vaccine Zoster Vaccines (1 of 2) [facility] Start: 2012 Screening for malign ant neoplasm of colon [facility] Start: 2012 Zoster vaccine hzv l jayy for subcutaneous use ZOSTER (SHINGLES) VACCINE (1 of 2) [facility] Start: 10-27-2010 PNEUMOCOCCAL VACCINE SERIES (2 - PCV) PNEUMOCOCCAL VACCINE SERIES (2 - PCV) [facility] Start: 10-05-1995 Tetanus vaccination TETANUS [facility] Start: 12-17-1983 Screening for malign ant neoplasm of cervix CERVICAL CANCER SCREENING DISCUSSION [facility] Start: 1981 Third diphtheria, tetanus and acellular pertussis (DTaP) vaccination TDAP (ADULT) [facility] Start: 1981 Zoster vaccine hzv l jayy for subcutaneous use ZOSTER (SHINGLES) VACCINE (1 of 2) [facility] Start: 1980 Hepatitis C antibody , confirmatory test Hepatitis C Screening [facility] Start: 1978 COVID-19 Vaccine (1 of 2) COVID-19 Vaccine (1 of 2) [facility] Start: 1977 HIV screening HIV Screening [facility] Start: 1974 Adolescent depressio n screening assessment Depression Screening (PHQ9) [facility] Start: 12-17-1967 COVID-19 VACCINE (#1) COVID-19 VACCI NE (#1) [facility] Start: 1965 History and physical examination, annual for health maintenance Wellness Visit [facility] Start: 06-18-1963 COVID-19 VACCINE (#1) COVID-19 VACCI NE (#1) [facility] Start: 1962 Screening for malign ant neoplasm of cervix Pap Smear [facility] Start: 1962 Screening mammography Mammogram [facility] Start: 1962 Tetanus vaccination Tetanus: Every 1 0yrs [facility] NEGATED: Highlighted row has been ruled out! Planned Goals not documented OA[facility]Fhjiouufaz-[facility]ypxio Work Phone: Immunizations Immunization Date Immunization Notes Care Provider Donis [email or web address] 03-23-2021 influenza virus vacc ine, unspecified formulation Jordan Marcial MD Work Phone: [facility] 03-06-2019 influenza, injectabl e, quadrivalent, contains preservative Bunny Susie MBBS Work Phone: [facility] 02-04-2017 influenza, injectabl e, quadrivalent, contains preservative Bunny Susie MBBS Work Phone: [facility] 04-06-2016 influenza, seasonal, injectable Bunny Susie MBBS Work Phone: [facility] 04-06-2013 influenza, seasonal, injectable Bunny Susie MBBS Work Phone: [facility] 10-27-2009 pneumococcal polysaccharide vaccine, 23 valent Bunny Susie MBBS Work Phone: [facility] 10-04-1985 diphtheria and tetan us toxoids, adsorbed for pediatric use Bunny Susie MBBS Work Phone: [facility] Payers Date Payer Category Payer Medicare [id number] 2019 Private Health Insurance [facility] [id number] 2019-Present [address] [address] [place] [address] [id number] 2019 Unknown [id number] 2019 Unknown [facility] HMO/SANKET CE PLUS/LYNDA/LYNDA PLUS [id number] 2019-Present [id number] 2011 Medicare MEDICARE MEDICAR E A AND B [id number] 2011-Present [address] [place] [address] [id number] 2011 Medicare [id number] 2011 Medicare MEDICARE MEDICAR E PART A & B [id number] 2011-Present [place] [id number] 1962 Unknown [id number] 1962 Unknown [id number] 1962 Unknown [id number] 1962 Unknown [id number] 1962 Unknown [id number] Social History Date Type Detail Facility Start: 1960 [facility] Start: 10-11-2019 Tobacco smoking status PAIS Never smoked tobacco [facility] Start: 10-11-2019 Tobacco use and exposure Smokeless tobacco non-user [facility] Start: 09-12-2020 Alcohol intake Lifetime non-d tatyana (finding) [facility] Start: 10-11-2019 History SDOH Alcohol Frequency 1 [facility] Start: 09-01-2021 End: 09-11-2021 Exposure to SARS-CoV-2 (event) Not sure [facility] Tobacco smoking status No Smoking Status Entered [facility] Sex Assigned At Female [facility] NEGATED: Highlighted row - - RJ-Clrzikhcyh-Difymp Work Phone: Medical Equipment Procedure Code Equipment Code Equipment Origin al Text Equipment Identifier Dates Stent Ureteral 6 fr 12cm 100cm .028in Closed Tip Push - [id number] Start: 09-11-2020 Stent Ureteral 6 fr 12cm 100cm .028in Closed Tip Push - [id number] Start: 10-06-2020 Functional Status Date Assessment Result Facility NEGATED: Highlighted row Functional performance Functional status health issues are not documented Disease AR-Doiltlliay-Risqv r Work Phone: Mental Status Date Assessment Result Facility NEGATED: Highlighted row Cognitive function [Interpretation] Cognitive status health issues are not documented Disease FU-Jqynaioygy-Gybhk r Work Phone: Evaluation + Plan note 05-04-2022 Radiology Note Date & Type Note Facility 05-04-2022 Evaluation + Plan note Future Scheduled TestsCT Knee w/o Contrast Left 05/04/22 [facility] History of Present illness Narrative 03-17-2022 Wolf Ortega RN - 03/17/2022 11:00 AM EDTAnand Katz RN - 03/17/2022 11:00 AM Marco Marcial MD - 03/17/2022 11:00 AM EDT Note Date & Type Note Facility 03-17-2022 History of Present illness Narrative Images from the original note were not included. PREP SHEET FOR NEPHROLOGY CLINIC Patient Name: Cate Fox Relationship Consultant: Wolf Ortega Date of Kidney Transplant: 09/11/2020 Primary Disease: Polycystic Kidneys Transplant [employer] Installer: Jordan Marcial Primary Care physician: Carson Russell Last Transplant Appointment: 09/11/2021 MONITORING: DGF Elevated cr, but not on HD HLA Match: A1 B2 DR1 Living Donor? No [place] Recipient? No ATG/ Steroid [place] ID Follow-up Testing Not < 28 days post txp or > 56 days after txp Date labs Complete: 10/16/2020 EBV IgG Donor / Recipient R+ CMV IgG Donor / Recipient: D- / R- On Valcyte or frequent labs? No N/A Ureteral Stent? Yes Removed / Removal Sched? Yes When? 10/06/2020 Hepatitis C+/GOPAL- donor? No Hepatitis C+/GOPAL+ donor? No Gil Status In Protocol Box Yes ======== IMMUNOSUPPRESSION AND LABS: Current Immunosuppressive Medication(s) Immunosuppressive Agents mycophenolate sodium (MYFORTIC) [address] Take 2 tablets by mouth every 12 hours. tacrolimus (PROGRAF) 1 MG capsule Take 2 capsules by mouth daily every morning AND 1 capsule every evening. I/S levels: Lab Results Component Value Date TACROLIMUS 6.9 12/11/2020 TACROLIMUS 6.6 10/16/2020 TACROLIMUS 8.1 10/02/2020 TACROTRGHMAN 5.1 02/15/2022 TACROTRGHMAN 7.1 02/09/2022 TACROTRGHMAN 10.2 02/01/2022 CHEMISTRY: Lab Results Component Value Date CREATSERUM 1.11 02/15/2022 CREATSERUM 1.14 02/09/2022 CREATSERUM 1.38 02/01/2022 HEMATOLOGY: Lab Results Component Value Date WBC 3.9 02/15/2022 WBC 4.6 02/09/2022 WBC 2.6 02/01/2022 Lab Results Component Value Date HGB 10.9 02/15/2022 HGB 11.5 02/09/2022 HGB 11.9 02/01/2022 IMMUNOLOGY: Lab Results Component Value Date CMVPCR negative 08/24/2021 CMVPCR negative 07/27/2021 CMVPCR negative 06/29/2021 BKVIRALP <500 09/11/2021 BKVIRALP <500 06/15/2021 BKVIRALP <500 12/11/2020 CURRENT MEDICATIONS: Diclofenac Sodium, acetaminophen, albuterol, allopurinol, aspirin, atorvastatin, levoFLOXacin, magnesium oxide, metoprolol, mycophenolate sodium, ondansetron, sodium bicarbonate, sulfamethoxazole-trimethoprim, and tacrolimus [facility] [address] [place] [facility] [id number] Change in lab frequency / new order today: No Labs needed in clinic today? No COORDINATOR NOTES: I saw Cate Fox who is a 61 y.o. female in our post transplant office for a Kidney transplant follow up. Cate Fox is now 552 day(s) status post her Donation after Circulatory donor Kidney transplant. Reason for Visit: Chief Complaint Kidney Recipient Follow-up Hospitalizations since last Visit: none Infections Since Last Visit: None, COVID positive January Learning Barriers: Barriers Noted: None Cultural/Confucianism Beliefs: None Emotional Barriers: None Desire/motivation to Learn: Yes Physical /Cognitive Limitations: None Barriers To Communication:None ROS: Chest Pain: negative Cough: negative SOB: negative Joint Pain: negative Abd Pain: positive Nausea: negative Vomiting: negative Diarrhea: negative Constipation: negative Dysuria: negative Edema: negative Skin Lesions: negative Acute health Issues: positive- ? Hernia over TXP site BP 135/84 (BP Location: Right arm, BP Position: Sitting) Pulse 86 Temp 97.3 F (36.3 C) (Temporal) Wt 77.6 kg (171 lb) BMI 33.40 kg/m Smoking Status Never BP Readings from Last 3 Encounters: 03/17/22 135/84 09/11/21 121/73 06/15/21 135/75 Home BP ranging 130/70's. Weight Change: same Wt Readings from Last 3 Encounters: 03/17/22 77.6 kg (171 lb) 09/11/21 74.8 kg (164 lb 12.8 oz) 06/15/21 81.4 kg (179 lb 6.4 oz) Estimated body mass index is 33.4 kg/m as calculated from the following: Height as of 10/06/20: 1.524 m (5'). Weight as of this encounter: 77.6 kg (171 lb). Update Pharmacy: Pharmacy : [facility]/pharmacy #[id number] [place] [address] [phone] [facility] [address] [facility] [address] [facility] [place] [phone] [facility] [address] [place] [address] [place] [address] Prescriptions are 90 days LAB: [facility] [address] [facility] [id number] Images from the original note were not included. Today we were happy to see Cate Fox at [facility] Post Transplant Office for evaluation and management of immunosuppression and associated conditions in the setting of solid organ transplantation. As you may be aware Ms. Fox is a 61 y.o. year-old female with a past medical history of ESRD. She received an organ transplant from a Donation after Circulatory Kidney Donor on 09/11/2020 (Kidney). The patient is currently 568 days out from transplantation. There has been a review of the patient s chart shows for significant events post-transplant The patient was last seen for follow-up at the [facility] on 04/02/22. The patient's recent medical history, general state of health, and any hospitalizations have been reviewed with the patient. REVIEW OF SYSTEMS: The patient currently endorses no complains and denies chest pain, shortness of breath, nausea or emesis. Otherwise all other systems are per HPI or negative. MEDICATIONS: Current Outpatient Medications Medication Sig acetaminophen 325 MG tablet Take 2 tablets by mouth every 6 hours as needed for Mild Pain or Moderate Pain. albuterol 108 (90 Base) MCG/ACT Aero Soln inhaler Inhale 1 puff as needed. allopurinol 100 MG tablet Take 100 mg by mouth every Tuesday, Tuesday, Tuesday dinner. aspirin 81 MG Chew Tab chewable tablet Chew 81 mg daily. atorvastatin 20 MG tablet Take 20 mg by mouth at bedtime. Diclofenac Sodium 1 % Gel gel Apply 2 g topically 4 times daily as needed. For knee pain gabapentin 300 MG capsule Take 300 mg by mouth 3 times daily. magnesium oxide 400 (241.3 Mg) MG tablet Take 1 tablet by mouth 2 times daily. mycophenolate sodium (MYFORTIC) [address] Take 2 tablets by mouth every 12 hours. ondansetron 4 MG tablet Take 4 mg by mouth every 8 hours as needed for Nausea. sulfamethoxazole-trimethoprim 800-160 MG per tablet Take 1 tablet by mouth three times a week. tacrolimus (PROGRAF) 1 MG capsule Take 2 capsules by mouth daily every morning AND 1 capsule every evening. levoFLOXacin 750 MG tablet Take 750 mg by mouth daily. metoprolol 25 MG tab regular release Take 1 tablet by mouth 2 times daily. (Patient not taking: No sig reported) PHYSICAL EXAM: VITALS: Blood pressure 135/84, pulse 86, temperature 97.3 F (36.3 C), temperature source Temporal, weight 77.6 kg (171 lb). GENERAL: Alert and oriented x 3 in no apparent Distress HEENT: Normocephalic, EOMI, Moist Oral Membranes, Neck Soft/Supple, No JVD or LAD CV: Regular Rhythm, Positive S1 / S2, Negative for Rubs PULM: Bilateral Breath Sounds. No Wheezes, Crackles, Rubs, Ronchi ABD: Soft, Non-Tender, Positive Bowel Sounds allograft is non-tender : Transplanted Graft Palpable. Non-Tender, Erythematous, or Warm EXT: Symmetric, Mobile, No Edema, No Cyanosis or Clubbing Neuro: No tremor Skin: No rash or obvious cancers seen LABORATORY VALUES: WBC, MANUAL ENTER Date Value Ref Range Status 03/15/2022 5.4 Final Hemoglobin (HGB), MANUAL ENTER Date Value Ref Range Status 03/15/2022 11.9 Final HEMATOCRIT (HCT), MANUAL ENTER Date Value Ref Range Status 03/15/2022 37.9 Final PLATELETS, MANUAL ENTER Date Value Ref Range Status 03/15/2022 307 Final SODIUM (NA), MANUAL ENTER Date Value Ref Range Status 03/15/2022 140 mmol/L Final Chloride (CL), MANUAL ENTER Date Value Ref Range Status 03/15/2022 111 Final Blood Urea Nitrogen (BUN), MANUAL ENTER Date Value Ref Range Status 03/15/2022 23 Final POTASSIUM (K+), MANUAL ENTER Date Value Ref Range Status 03/15/2022 4.7 Final HCO3 Date Value Ref Range Status 09/11/2020 23.0 mmol/L Final CREATININE, SERUM, MANUAL ENTER Date Value Ref Range Status 03/15/2022 1.25 Final GLUCOSE, MANUAL ENTER Date Value Ref Range Status 03/15/2022 107 Final AST, MANUAL ENTER Date Value Ref Range Status 02/15/2022 13 Final ALT, MANUAL ENTER Date Value Ref Range Status 02/15/2022 21 Final GGT Date Value Ref Range Status 08/24/2019 21 8 - 64 U/L Final Bilirubin, Total, MANUAL ENTER Date Value Ref Range Status 02/15/2022 0.40 Final CALCIUM (CA), MANUAL ENTER Date Value Ref Range Status 02/15/2022 10.3 Final Phosphate (PO4), Manual Enter Date Value Ref Range Status 02/15/2022 2.3 Final MAGNESIUM (MG), MANUAL ENTER Date Value Ref Range Status 02/15/2022 2.2 Final ASSESSMENT AND PLAN: Status Post-Transplant: Stable Latest Creatinine Lab Results Component Value Date CREATSERUM 1.25 03/15/2022 CREATURINE 102.81 03/17/2022 Patient is within the usual baseline. interventions are warranted at this time. Stop Bicarb Labs in clinic Return in 6 months OK for ortho referral Immunosuppression Management: Current Immunosuppressive Medication(s) Immunosuppressive Agents mycophenolate sodium (MYFORTIC) [address] Take 2 tablets by mouth every 12 hours. tacrolimus (PROGRAF) 1 MG capsule Take 2 capsules by mouth daily every morning AND 1 capsule every evening. 2. Immunosuppression Management: We will continue close monitoring for drug levels and toxicity via regularly scheduled laboratory assays High Risk Medical Decision Making For Drug Therapy Requiring Intensive Monitoring For Toxicity given the narrow therapeutic index of the immunosuppressive drug therapy listed below. Current Immunosuppressive Medication(s) Immunosuppressive Agents mycophenolate sodium (MYFORTIC) [address] Take 2 tablets by mouth every 12 hours. tacrolimus (PROGRAF) 1 MG capsule Take 2 capsules by mouth daily every morning AND 1 capsule every evening. Current Immunosuppressive medication(s) include: Current Immunosuppressive Medication(s) Immunosuppressive Agents mycophenolate sodium (MYFORTIC) [address] Take 2 tablets by mouth every 12 hours. tacrolimus (PROGRAF) 1 MG capsule Take 2 capsules by mouth daily every morning AND 1 capsule every evening. I/S levels: Lab Results Component Value Date TACROLIMUS 6.9 12/11/2020 No Changes are warranted at this time. Will continue intensive monitoring for drug levels and toxicity via regularly scheduled laboratory assays given the narrow therapeutic index of the immunosuppressive drug therapy listed above. Hypertension: Stable Current hypertension therapy includes: As noted above Today in the clinic the blood pressure was BP Readings from Last 1 Encounters: 03/17/22 135/84 Per the patient home systolic blood pressures have been averaging in the 130 mmHg These values are acceptable. An intervention is not indicated at this time. Anemia: Stable Latest hemoglobin Hemoglobin (HGB), MANUAL ENTER Date Value Ref Range Status 03/15/2022 11.9 Final Acceptable per current post-transplant protocols. An intervention is not indicated at this time. Proteinuria: Stable Last Urine Protein/Creatinine Ratio: PROTEIN/CREATININE RATIO, MANUAL ENTER Date Value Ref Range Status 02/15/2022 0.173 Final Prot/Creat Ratio Date Value Ref Range Status 03/17/2022 0.136 Final At Goal. An intervention is not indicated at this time. Hyperphosphatemia: Stable Last Phosphorous Level: Phosphate (PO4), Manual Enter Date Value Ref Range Status 02/15/2022 2.3 Final A phosphorus binder is not indicated at this time. Hypercalcemia: Stable Last Calcium Level: CALCIUM (CA), MANUAL ENTER Date Value Ref Range Status 02/15/2022 10.3 Final No interventions are warranted at this time. Secondary Hyperparathyroidism: Stable Last PTH PTH INTACT, MANUAL ENTER Date Value Ref Range Status 10/12/2021 218.3 Final interventions are warranted at this time. Can use vit d to help PTH Hyperlipidemia: Stable Current lipid therapy includes: as noted above TOTAL CHOLESTERL, MANUAL ENTER Date Value Ref Range Status 02/15/2022 147 Final HDL, MANUAL ENTER Date Value Ref Range Status 02/15/2022 55 Final LDL, MANUAL ENTER Date Value Ref Range Status 02/15/2022 66 Final TRIGLYCERIDES, MANUAL ENTER Date Value Ref Range Status 02/15/2022 130 Final No results found for: TCHHDLMANENT An intervention is not indicated at this time. Counseling: I counseled the patient on: The need to avoid sun exposure and the use of sunblock while outdoors given the relatively higher risk of skin malignancy in an immunosuppressed state. The need for adherence to immunosuppression medication. Patient verbalized understanding. Follow-Up: The patient will follow-up with us in clinic in 6 months however we will see patient earlier should the need arise. We have ordered transplant specific labs per the center s guidelines to monitor and assess for toxicities from immunosuppressant drug therapy. Thank you for allowing us to partake in the care of your patient. Should you have any questions please do not hesitate to contact me. documented in this encounter [facility] Instructions 03-17-2022 Patient Instructions Note Date & Type Note Facility 03-17-2022 Instructions Anand Katz RN - 03/17/2022 11:00 AM EDT Stop Bicarb Labs in clinic Return in 6 months OK for ortho referral documented in this encounter [facility] Instructions 09-11-2021 Patient Instructions Note Date & Type Note Facility 09-11-2021 Instructions Edward Machado RN - 09/11/2021 3:15 PM EDT - labs letter given for once a month labs, additional labs in clinic - No medication changes - Return to clinic 03/17/2022 with Jordan Marcial MD as scheduled documented in this encounter [facility] History of Present illness Narrative 09-11-2021 Wolf Ortega RN - 09/11/2021 3:00 PM Emelyn Machado RN - 09/11/2021 3:00 PM EDTLYNDSAY Foster - 09/11/2021 3:00 PM EDT Note Date & Type Note Facility 09-11-2021 History of Present illness Narrative Images from the original note were not included. 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 No [place] Recipient? No ATG/ Steroid [place] ID Follow-up Testing Not < 28 days post txp or > 56 days after txp Date labs Complete: 10/16/2020 EBV IgG Donor / Recipient R+ CMV IgG Donor / Recipient: D- / R- On Valcyte or frequent labs? No N/A Ureteral Stent? Yes Removed / Removal Sched? Yes When? 10/06/2020 Hepatitis C+/GOPAL- donor? No Hepatitis C+/GOPAL+ donor? No Gil Status In Protocol Box Yes ======== IMMUNOSUPPRESSION AND LABS: Current Immunosuppressive Medication(s) Immunosuppressive Agents mycophenolate sodium (generic) [address] tablet DR Take 2 tablets by mouth every 12 hours. tacrolimus (generic) 1 MG capsule Take 3 capsules by mouth daily every morning AND 2 capsules every evening. I/S levels: Lab Results Component Value Date TACROLIMUS 6.9 12/11/2020 TACROLIMUS 6.6 10/16/2020 TACROLIMUS 8.1 10/02/2020 TACROTRGHMAN 9.6 08/24/2021 TACROTRGHMAN 8.9 07/27/2021 TACROTRGHMAN 7.7 07/13/2021 CHEMISTRY: Lab Results Component Value Date CREATSERUM 1.42 09/07/2021 CREATSERUM 1.26 08/24/2021 CREATSERUM 1.19 07/27/2021 HEMATOLOGY: Lab Results Component Value Date WBC 3.8 09/07/2021 WBC 4.2 08/24/2021 WBC 3.8 07/27/2021 Lab Results Component Value Date HGB 10.1 09/07/2021 HGB 11.7 08/24/2021 HGB 12.2 07/27/2021 IMMUNOLOGY: Lab Results Component Value Date CMVPCR negative 08/24/2021 CMVPCR negative 07/27/2021 CMVPCR negative 06/29/2021 BKVIRALP <500 06/15/2021 BKVIRALP <500 12/11/2020 CURRENT MEDICATIONS: Diclofenac Sodium, acetaminophen, albuterol, allopurinol, aspirin, atorvastatin, metoprolol, mycophenolate sodium, ondansetron, sodium bicarbonate, sulfamethoxazole-trimethoprim, and tacrolimus [facility] [address] [place] [id number] Change in lab frequency / new order today: Yes 1 year lab letter Labs needed in clinic today? Yes COORDINATOR NOTES: Images from the original note were not included. Nursing Assessment In Clinic (see Clinic Prep Sheet for additional information) Patient is accompanied to clinic today by: Did patient require a wheelchair or medical transport for appointment: no Any changes in address or contact information: no Insurance on file correct: yes Currently employed: no VITALS BP Readings from Last 3 Encounters: 09/11/21 121/73 06/15/21 135/75 03/09/21 138/78 Pulse Readings from Last 3 Encounters: 09/11/21 85 06/15/21 92 03/09/21 69 Wt Readings from Last 6 Encounters: 09/11/21 74.8 kg (164 lb 12.8 oz) 06/15/21 81.4 kg (179 lb 6.4 oz) 03/09/21 74.7 kg (164 lb 11.2 oz) 12/11/20 67.1 kg (147 lb 14.4 oz) 12/11/20 67.1 kg (147 lb 14.4 oz) 10/28/20 61.6 kg (135 lb 11.2 oz) Body mass index is 32.19 kg/m . Lab Results Component Value Date GLUCOSE 105 09/07/2021 Lab Results Component Value Date HGBA1C 5.9 08/24/2021 IMMUNOSUPPRESSION Current Immunosuppressive Medication(s) Immunosuppressive Agents mycophenolate sodium (generic) [address] tablet DR Take 2 tablets by mouth every 12 hours. tacrolimus (PROGRAF) 1 MG capsule Take 2 capsules by mouth 2 times daily. ADDITIONAL INFORMATION: [facility] [address] [facility] [address] [facility]/pharmacy #[id number] [place] [address] [facility] [address] [place] [id number] [facility] [place] [address] - [address] [facility] [address] [place] [address] [place] [address] ROS and SCREEN: Chest Pain: negative Cough: negative SOB: negative Abd Pain: negative Nausea: positive Vomiting: negative Diarrhea: Positive, for the last week Constipation: negative Dysuria: negative Edema: negative Tremors: Positive, constant lately Headaches: negative Wound issues: negative Alcohol consumption: no Cigarette smoking, smokeless tobacco or vaping/e-cigarette use: no Marijuana (any form), CBD oil or street drug use: no QUESTIONS OR CONCERNS TO ADDRESS WITH PHYSICIAN: I saw Cate Fox at the [facility] on 09/11/2021. Patient is a 60 y.o. female s/p donor kidney transplant on 09/11/20. Her [place] kidney disease was noted to be ADPKD. Her post-transplant course was noteworthy for DGF but she is off dialysis now. She reports no interval health issues such as hospitalizations, infections or ED visits. She does not report any active physical symptoms or health issues today. Review of Systems done by the RN; see separate note Current Outpatient Medications Medication Sig acetaminophen 325 MG tablet Take 2 tablets by mouth every 6 hours as needed for Mild Pain or Moderate Pain. albuterol 108 (90 Base) MCG/ACT Aero Soln inhaler Inhale 1 puff as needed. allopurinol 100 MG tablet Take 100 mg by mouth every Tuesday, Tuesday, Tuesday dinner. aspirin 81 MG Chew Tab chewable tablet Chew 81 mg daily. atorvastatin 20 MG tablet Take 20 mg by mouth at bedtime. Diclofenac Sodium 1 % Gel gel Apply 2 g topically 4 times daily as needed. For knee pain levoFLOXacin 750 MG tablet Take 750 mg by mouth daily. ondansetron 4 MG tablet Take 4 mg by mouth every 8 hours as needed for Nausea. sodium bicarbonate 650 MG tablet TAKE 2 TABLETS BY MOUTH 3 TIMES A DAY (Patient taking differently: 650 mg 2 times daily.) sulfamethoxazole-trimethoprim 800-160 MG per tablet Take 1 tablet by mouth daily. tacrolimus (PROGRAF) 1 MG capsule Take 2 capsules by mouth 2 times daily. magnesium oxide 400 (241.3 Mg) MG tablet Take 1 tablet by mouth 2 times daily. metoprolol 25 MG tab regular release Take 1 tablet by mouth 2 times daily. (Patient not taking: No sig reported) mycophenolate sodium (MYFORTIC) [address] Take 3 tablets by mouth every 12 hours. Past Medical History: Past Medical History: Diagnosis Date Anemia Anuria greater than 2 years Hx of blood clots Hyperparathyroidism Hypotension on Midodrine Kidney stones PKD (polycystic kidney disease) Past Surgical History: Past Surgical History: Procedure Laterality Date KIDNEY TRANSPLANT W/O [place] NEPHRECTOMY N/A 09/11/2020 Laterality: N/A; Surgeon: Ninfa Brown MD; Location: [facility] MAIN OR NEPHRECTOMY Bilateral 2015 OTHER SURGICAL 2011 PD catheter placed for dialysis OTHER SURGICAL 2011 fistula created for hemodialysis CHOLECYSTECTOMY 1993 SECTION 1991 + 1993 Family History: family history includes Aneurysm in her father; Hypertension in her father; Other - Specify in her brother. Social History: reports that she has never smoked. She has never used smokeless tobacco. She reports that she does not drink alcohol and does not use drugs. Physical Exam: Blood pressure 121/73, pulse 85, temperature 98.1 F (36.7 C), temperature source Oral, weight 74.8 kg (164 lb 12.8 oz). Constitutional: Well developed, well nourished, in no physical distress. HEENT: PERRL, no scleral icterus, moist pharynx Neck: Supple, no JVD, no carotid bruits Lungs: Clear to auscultation bilaterally, no labored breathing, no W/R/R Cardiovascular: S1 & S2 with regular rhythm and normal rate, no pericardial rub Abdominal: soft, NTTTP, ND, NABS; Well healed RLQ incision Extremities: No edema, no cyanosis or clubbing, equal distal pulses Neurological: AA/Ox3, moves all four extremities Skin: No rashes or bruises : No CVA tenderness to palpation Laboratory Findings: WBC, MANUAL ENTER Date Value Ref Range Status 09/22/2021 3.7 Final Hemoglobin (HGB), MANUAL ENTER Date Value Ref Range Status 09/22/2021 10.2 Final HEMATOCRIT (HCT), MANUAL ENTER Date Value Ref Range Status 09/22/2021 33.0 Final PLATELETS, MANUAL ENTER Date Value Ref Range Status 09/22/2021 413 Final Sodium Date Value Ref Range Status 09/11/2021 136 135 - 145 mmol/L Final Chloride Date Value Ref Range Status 09/11/2021 105 98 - 108 mmol/L Final BUN Date Value Ref Range Status 09/11/2021 23 7 - 25 mg/dL Final Potassium Date Value Ref Range Status 09/11/2021 4.0 3.5 - 5.0 mmol/L Final HCO3 Date Value Ref Range Status 09/11/2020 23.0 mmol/L Final Creatinine Date Value Ref Range Status 09/11/2021 1.51 (H) 0.50 - 1.20 mg/dL Final Glucose Date Value Ref Range Status 09/11/2021 94 70 - 99 mg/dL Final PT Date Value Ref Range Status 09/15/2020 13.5 11.9 - 14.2 sec Final PTT Date Value Ref Range Status 09/15/2020 29.9 24.0 - 34.3 sec Final Total Protein Date Value Ref Range Status 09/11/2021 6.3 (L) 6.4 - 8.3 g/dL Final Albumin Date Value Ref Range Status 09/11/2021 3.6 3.5 - 5.0 g/dL Final AST Date Value Ref Range Status 09/11/2021 19 10 - 39 U/L Final ALT Date Value Ref Range Status 09/11/2021 16 9 - 48 U/L Final GGT Date Value Ref Range Status 08/24/2019 21 8 - 64 U/L Final Bilirubin Total Date Value Ref Range Status 09/11/2021 0.3 <1.5 mg/dL Final Calcium Date Value Ref Range Status 09/11/2021 10.4 8.6 - 10.5 mg/dL Final Phosphorous Date Value Ref Range Status 09/11/2021 1.9 (L) 2.2 - 4.6 mg/dL Final Magnesium Date Value Ref Range Status 09/11/2021 1.2 (L) 1.6 - 2.6 mg/dL Final Cholesterol Date Value Ref Range Status 09/11/2021 124 <200 mg/dL Final Comment: [<200 mg/dL: Desirable] [200-239 mg/dL: Borderline High] [>239 mg/dL: High] HDL, MANUAL ENTER Date Value Ref Range Status 08/24/2021 61 Final LDL, MANUAL ENTER Date Value Ref Range Status 08/24/2021 48 Final TRIGLYCERIDES, MANUAL ENTER Date Value Ref Range Status 08/24/2021 151 Final Assessment and Plan: Patient is a 60 y.o. female, s/p Kidney transplant. 1. Immunosuppression: Cate Fox is currently taking tacrolimus and mycophenolate for immunosuppression management and is tolerating it well. No changes made today with this regimen. 2. Allograft function: Is stable, based on the serum creatinine trends. 3. Hypertension: Also stable based on the home BP recordings. No changes made with the current anti-hypertensive regimen. Continue to monitor BP frequently and record. 4. Anemia: Hemoglobin and iron studies are within normal limits. Patient is otherwise scheduled to follow up with me in 6 months. Lab draws will be every month. Please do not hesitate to contact me if you have any questions. Bunny Richards MD trim installer Division of Nephrology [facility] documented in this encounter [facility] Evaluation note Note Date & Type Note Facility documented in this encounter [facility] Evaluation note Note Date & Type Note Facility documented in this encounter [facility] Hospital course Narrative Note Date & Type Note Facility Hospital course Narrative No data available for this section [facility] Hospital Discharge instructions Note Date & Type Note Facility Hospital Discharge instructions No data available for this section [facility] Progress note Note Date & Type Note Facility Progress note No data available for this section [facility] Summary Purpose Family History No Family History Records Found Grandmother Name Dates Details Family history of malignant neoplasm(V16.9, Z80.9) Status:Active Family history of coronary a rtery disease(V17.3, Z82.49) Status:Active Father Name Dates Details Family history of cerebral a neurysm(V17.1, Z82.49) Status:Active Family history of Status:Active Family history of polycystic kidney disease(V18.61, Z82.71) Status:Active Brother Name Dates Details Family history of Polycystic kidney disease(753.12, Q61.3) Status:Active Grandmother Name Dates Details Family history of coronary a rtery disease(V17.3, Z82.49) Status:Active Family history of malignant neoplasm(V16.9, Z80.9) Status:Active Father Name Dates Details Family history of cerebral a neurysm(V17.1, Z82.49) Status:Active Family history of Status:Active Family history of polycystic kidney disease(V18.61, Z82.71) Status:Active Brother Name Dates Details Family history of Polycystic kidney disease(753.12, Q61.3) Status:Active Grandmother Name Dates Details Family history of malignant neoplasm(V16.9, Z80.9) Status:Active Family history of coronary a rtery disease(V17.3, Z82.49) Status:Active Father Name Dates Details Family history of cerebral a neurysm(V17.1, Z82.49) Status:Active Family history of (7 99.9, R99) Status:Active Family history of polycystic kidney disease(V18.61, Z82.71) Status:Active Brother Name Dates Details Family history of Polycystic kidney disease(753.12, Q61.3) Status:Active Grandmother Name Dates Details Family history of malignant neoplasm(V16.9, Z80.9) Status:Active Family history of coronary a rtery disease(V17.3, Z82.49) Status:Active Father Name Dates Details Family history of cerebral a neurysm(V17.1, Z82.49) Status:Active Family history of (7 99.9, R99) Status:Active Family history of polycystic kidney disease(V18.61, Z82.71) Status:Active Brother Name Dates Details Family history of Polycystic kidney disease(753.12, Q61.3) Status:Active Grandmother Name Dates Details Family history of malignant neoplasm(V16.9, Z80.9) Status:Active Family history of coronary a rtery disease(V17.3, Z82.49) Status:Active Father Name Dates Details Family history of cerebral a neurysm(V17.1, Z82.49) Status:Active Family history of (7 99.9, R99) Status:Active Family history of polycystic kidney disease(V18.61, Z82.71) Status:Active Brother Name Dates Details Family history of Polycystic kidney disease(753.12, Q61.3) Status:Active Grandmother Name Dates Details Family history of malignant neoplasm(V16.9, Z80.9) Status:Active Family history of coronary a rtery disease(V17.3, Z82.49) Status:Active Father Name Dates Details Family history of cerebral a neurysm(V17.1, Z82.49) Status:Active Family history of Status:Active Family history of polycystic kidney disease(V18.61, Z82.71) Status:Active Brother Name Dates Details Family history of Polycystic kidney disease(753.12, Q61.3) Status:Active Grandmother Name Dates Details Family history of malignant neoplasm(V16.9, Z80.9) Status:Active Family history of coronary a rtery disease(V17.3, Z82.49) Status:Active Father Name Dates Details Family history of polycystic kidney disease(V18.61, Z82.71) Status:Active Grandmother Name Dates Details Family history of malignant neoplasm(V16.9, Z80.9) Status:Active Family history of coronary a rtery disease(V17.3, Z82.49) Status:Active Father Name Dates Details Family history of cerebral a neurysm(V17.1, Z82.49) Status:Active Family history of Status:Active Family history of polycystic kidney disease(V18.61, Z82.71) Status:Active Brother Name Dates Details Family history of Polycystic kidney disease(753.12, Q61.3) Status:Active Grandmother Name Dates Details Family history of malignant neoplasm(V16.9, Z80.9) Status:Active Family history of coronary a rtery disease(V17.3, Z82.49) Status:Active Father Name Dates Details Family history of polycystic kidney disease(V18.61, Z82.71) Status:Active Family history of cerebral a neurysm(V17.1, Z82.49) Status:Active Family history of Status:Active Brother Name Dates Details Family history of Polycystic kidney disease(753.12, Q61.3) Status:Active Grandmother Name Dates Details Family history of malignant neoplasm(V16.9, Z80.9) Status:Active Family history of coronary a rtery disease(V17.3, Z82.49) Status:Active Father Name Dates Details Family history of polycystic kidney disease(V18.61, Z82.71) Status:Active Grandmother Name Dates Details Family history of malignant neoplasm(V16.9, Z80.9) Status:Active Family history of coronary a rtery disease(V17.3, Z82.49) Status:Active Father Name Dates Details Family history of cerebral a neurysm(V17.1, Z82.49) Status:Active Family history of Status:Active Family history of polycystic kidney disease(V18.61, Z82.71) Status:Active Brother Name Dates Details Family history of Polycystic kidney disease(753.12, Q61.3) Status:Active Grandmother Name Dates Details Family history of malignant neoplasm(V16.9, Z80.9) Status:Active Family history of coronary a rtery disease(V17.3, Z82.49) Status:Active Father Name Dates Details Family history of polycystic kidney disease(V18.61, Z82.71) Status:Active Family history of cerebral a neurysm(V17.1, Z82.49) Status:Active Family history of Status:Active Brother Name Dates Details Family history of Polycystic kidney disease(753.12, Q61.3) Status:Active Grandmother Name Dates Details Family history of malignant neoplasm(V16.9, Z80.9) Status:Active Family history of coronary a rtery disease(V17.3, Z82.49) Status:Active Father Name Dates Details Family history of cerebral a neurysm(V17.1, Z82.49) Status:Active Family history of Status:Active Family history of polycystic kidney disease(V18.61, Z82.71) Status:Active Brother Name Dates Details Family history of Polycystic kidney disease(753.12, Q61.3) Status:Active Grandmother Name Dates Details Family history of malignant neoplasm(V16.9, Z80.9) Status:Active Family history of coronary a rtery disease(V17.3, Z82.49) Status:Active Father Name Dates Details Family history of polycystic kidney disease(V18.61, Z82.71) Status:Active Family history of cerebral a neurysm(V17.1, Z82.49) Status:Active Family history of Status:Active Brother Name Dates Details Family history of Polycystic kidney disease(753.12, Q61.3) Status:Active Advance Directives No Advanced Directives Records FoundDocuments on File Type Date Recorded Patient Javascript Engineer Expl anation Advance Directives and Livin g Will 04/22/2020 12:00 AM Latest Code Status on File Code Status Date Activated Date Inactivated Comments Full Code 09/11/2020 12:18 AM Latest Code Status on File Code Status Date Activated Date Inactivated Comments Full Code 09/11/2020 12:18 AM Hospital Course Note HNO ID: [id number] Author: Gaurav Gautam MD Service: Hospital Medicine Author Type: Physician Type: Discharge Summary Filed: 08/15/2019 6:01 PM Note Text: DISCHARGE SUMMARY PATIENT NAME: Cate Fox Code Status: Full Code Highest Readmission Risk Score: 40 The 30 day readmissions risk score is derived from an internally validated risk model which evaluates patient level characteristics, utilization history, medication orders and lab results up until the day of discharge. Patients with a score of 40 or above are considered highest risk for readmission. Specific patient level drivers will be listed at the bottom of the summary. Admission Information Admission Information ADMIT DATE: 08/14/2019 DISCHARGE DATE: 08/15/2019 MY DOCTORS AND MEDICAL TEAM: My Main Hospital Doctor: Rain Harris* Primary Care Provider: Oswaldo Horan DO My Medical Team Members: Treatment Team: Attending Provider: Rain Gautam MD Consulting: Zara Pavon Consulting (more content not included)... Note HNO ID: [id number] Author: Manju Cunha Service: ? Author Type: Physician Type: Brief Op Note Filed: 08/15/2019 10:13 AM Note Text: VASCULAR SURGERY BRIEF OPERATIVE NOTE Surgery/Procedure Date: 08/15/2019 Incision/Procedure Start Time: Incision Close/Procedure End Time: Preop Diagnosis (Diagnosis Codes): Pre-Op Diagnosis Codes: * ESRD (end stage renal disease) on dialysis ([facility]) [N18.6, Z99.2] Clotted left arm AV dialysis access with nonfunctioning temporary dialysis access in the left internal jugular Postop Diagnosis: Same Procedure(s): Placement of tunneled dialysis catheter via left internal jugular using exchange technique, 19 cm cuff to tip, 14 [place]ian dual-lumen Primary Surgeon(s): Fredy Cunha MD Radar Systems Engineer(s): None Anesthesia: Local Estimated Blood Loss: 20 cc Fluids: 30 cc crystalloid Urine Output: 0 cc Specimens Removed: Yes, old temporary catheter was discarded Drains: None Complications: None Findings: Longer catheter placed the tip in the catheter at the SVC/RA junctio (more content not included)... Note Post Operative Note: PreOp D iagnosis: ESRD Post-Procedure Diagnosis: ESRD Procedure: L brachioaxillary AVG Surgeon: Dr. Foreman Resident/Fellow/Other Radar Systems Engineer: Beny Anesthesia: GETA I.V. Fluids: 250 albumin, 700 NS Estimated Blood Loss (mL): 25 Specimen: no Complications: None Findings: Audible bruit in graft, doppler radial and ulnar artery signals Patient Returned To/Condition: PACU, extubated, stable. Drains and/or Catheters: none Central Line Placement: Central Line Placedno Operative Report Dictated: Dictation: yes Dictation job number: [id number] Signature/Cosignature/Attestation: Note Completion: I am a:Resident/Fellow Attending AttestbijuI was present for the entire procedure Electronic Signatures: Edd Swan (Resident)) (Signed 19-Oct-2019 09:48) Authored: Post Operative Note, Signature/Cosignature/Attestation Joselyn Foreman) (Signed 19-Oct-2019 16:18) Authored: Post Operative Note, Signature/Cosignature/Attestation Co-Signer: Post Operative Note, Signature/Cosignature (more content not included)... 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 Thrill palpable over AVG. L radial pulse palpable. Operative Report Dictated: Dictation: yes Dictation job number: [id number] Signature/Cosignature/Attestation: Note Completion: Attending AttestbijuI performed the procedure without a resident Electronic Signatures: Joselyn Foreman) (Signed 24-Jan-2020 15:43) Authored: Post Operative Note, Signature/Cosignature/Attestation Last Updated: 24-Jan-2020 15:43 by Joselyn Foreman) Procedure Findings Note Post Operative Note: PreOp D iagnosis: ESRD Post-Procedure Diagnosis: ESRD Procedure: L brachioaxillary AVG Surgeon: Dr. Foreman Resident/Fellow/Other Radar Systems Engineer: Beny Anesthesia: GETA I.V. Fluids: 250 albumin, 700 NS Estimated Blood Loss (mL): 25 Specimen: no Complications: None Findings: Audible bruit in graft, doppler radial and ulnar artery signals Patient Returned To/Condition: PACU, extubated, stable. Drains and/or Catheters: none Central Line Placement: Central Line Placedno Operative Report Dictated: Dictation: yes Dictation job number: [id number] Signature/Cosignature/Attestation: Note Completion: I am a:Resident/Fellow Attending AttrogerioI was present for the entire procedure Electronic Signatures: Edd Swan (Resident)) (Signed 19-Oct-2019 09:48) Authored: Post Operative Note, Signature/Cosignature/Attestation Joselyn Foreman) (Signed 19-Oct-2019 16:18) Authored: Post Operative Note, Signature/Cosignature/Attestation Co-Signer: Post Operative Note, Signature/Cosignature (more content not included)... 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 Thrill palpable over AVG. L radial pulse palpable. Operative Report Dictated: Dictation: yes Dictation job number: [id number] Signature/Cosignature/Attestation: Note Completion: Attending AttestbijuI performed the procedure without a resident Electronic Signatures: Joselyn Foreman) (Signed 24-Jan-2020 15:43) Authored: Post Operative Note, Signature/Cosignature/Attestation Last Updated: 24-Jan-2020 15:43 by Joselyn Foreman) Note HNO ID: [id number] Author: Manju Cunah Service: ? Author Type: Physician Type: Brief Op Note Filed: 08/15/2019 10:13 AM Note Text: VASCULAR SURGERY BRIEF OPERATIVE NOTE Surgery/Procedure Date: 08/15/2019 Incision/Procedure Start Time: Incision Close/Procedure End Time: Preop Diagnosis (Diagnosis Codes): Pre-Op Diagnosis Codes: * ESRD (end stage renal disease) on dialysis ([facility]) [N18.6, Z99.2] Clotted left arm AV dialysis access with nonfunctioning temporary dialysis access in the left internal jugular Postop Diagnosis: Same Procedure(s): Placement of tunneled dialysis catheter via left internal jugular using exchange technique, 19 cm cuff to tip, 14 [place]ian dual-lumen Primary Surgeon(s): Fredy Cunha MD Radar Systems Engineer(s): None Anesthesia: Local Estimated Blood Loss: 20 cc Fluids: 30 cc crystalloid Urine Output: 0 cc Specimens Removed: Yes, old temporary catheter was discarded Drains: None Complications: None Findings: Longer catheter placed the tip in the catheter at the SVC/RA junctio (more content not included)... Additional Source Comments INFORMATION SOURCE (unrecogn ized section and content) DATE CREATED AUTHOR AUTHOR'S ORGANIZ ATION 12/29/2019 [facility] DATE CREATED AUTHOR AUTHOR'S ORGANIZ ATION 04/09/2020 [facility] DATE CREATED AUTHOR AUTHOR'S ORGANIZ ATION 04/22/2020 [facility] DATE CREATED AUTHOR AUTHOR'S ORGANIZ ATION 04/23/2020 [facility] DATE CREATED AUTHOR AUTHOR'S ORGANIZ ATION 05/03/2020 [employer] DATE CREATED AUTHOR AUTHOR'S ORGANIZ ATION 06/15/2020 [facility] DATE CREATED AUTHOR AUTHOR'S ORGANIZ ATION 08/27/2021 [facility] DATE CREATED AUTHOR AUTHOR'S ORGANIZ ATION 05/06/2022 [facility] ([place]) DATE CREATED AUTHOR AUTHOR'S ORGANIZ ATION 04/01/2023 [facility] Reason for Visit (unrecogniz ed section and content) Care Teams (unrecognized sec tion and content) Tapper Shank Relationship Specialty Start Date End Date Carson Russell MD [address] [place], [place] [id number] PCP - General Family Medicine 09/12/20 Junaid Lau MD [address] [place] [id number] Nephrology 10/10/20 Krzysztof Wu MD [address] [place] [address] Nephrology 03/09/21 Care Team (unrecognized sect ion and content) Care Team Personnel Name: PHYSICIAN, PATIENT UNSURE Member Role: Primary Care Physician FOR RECORDS PERTAINING TO PATIENTS WHO ARE OR HAVE BEEN ENROLLED IN A CHEMICAL DEPENDENCY/SUBSTANCEABUSE PROGRAM, SOME INFORMATION MAY BE OMITTED. This clinical summary was aggregated from multiple sources. Caution should be exercised in using it in the provision of clinical care. This summary normalizes information from multiple sources, and as a consequence, information in this document may materially change the coding, format and clinical context of patient data. In addition, data may be omitted in some cases. CLINICAL DECISIONS SHOULD BE BASED ON THE PRIMARY CLINICAL RECORDS. [employer] provides no warranty or guarantee of the accuracy or completeness of information in this document.
[2023-06-02 10:03] LABS: Hematocrit 42.8 % (37-47); Hemoglobin 13.3 g/dL (12.0-15.0); Mean Corp Hgb Conc 31.1 g/dL (32-36); Mean Corpuscular Hgb 29.1 pg (27.0-32.0); Mean Corpuscular Volume 93.7 fL (81-99); Platelet Count 322 K/mm3 (150-450); RBC Distribution Width CV 13.2 % (11.6-14.6); RBC Distribution Width SD 45.2 fl (35.1-43.9); Red Blood Count 4.57 M/mm3 (4.2-5.4); White Blood Count 7.3 K/mm3 (4.4-11.0)
[2023-06-02 10:33] LABS: Vitamin D,25 Hydroxy 11.9 ng/mL
[2023-06-02 10:35] LABS: Microalbumin:Creatinine Ratio 8.9 mg/g CRE (<30 mg/g CRE); Protein:Creat Ratio 143 mg/g CRE (0-200)
[2023-06-02 10:51] LABS: Albumin, Serum 3.5 g/dL (3.2-5.0); BUN 24 mg/dL (7-18); BUN/Creat Ratio 17.3 RATIO (10-20); Calcium,Total 9.5 mg/dL (8.5-10.1); Chloride 112 mmol/L (98-107); Creatinine, Serum 1.39 mg/dL (0.55-1.02); EST Glomerular Filtration Rate 41 mL/min (>60); Est Glom Filt Rate - Afr Amer 50 mL/min (>60); Ferritin 1345 ng/mL (8-252); Glucose 117 mg/dL (74-106); Iron 92 ug/dL (50-170); Iron Binding Capacity,Total 238 ug/dL (250-450); Magnesium 1.8 mg/dL (1.6-2.6); PERCENT IRON SATURATION 38.7 % (15.0-55.0); Phosphorus 1.9 mg/dL (2.5-4.9); Potassium 4.5 mmol/L (3.5-5.1); Sodium Level 141 mmol/L (136-145)
[2023-06-04 17:07] LABS: Tacrolimus (FK506) 19.9 ng/mL (2.0-20.0)
== END | disposition home or self-care (01) ==
LOC: MTLAB 09:17
PROVIDERS: PCP Family Medicine; Referring Provider Internal Medicine Nephrology; Visit Provider Internal Medicine Nephrology
DX: D64.9 Anemia, unspecified (principal); Z94.0 Kidney transplant status; M10.9 Gout, unspecified
CPT/HCPCS: 36415; 80069; 80197; 82043; 82306; 82570; 82728; 83540; 83550; 83735; 83970; 84156; 84550; 85027

== ENCOUNTER → 2023-06-23 | Outpatient (CLI) | payer MEDICARE, OTHER, SELFPAY ==
--- OUTSIDE RECORDS SUMMARY | 2023-06-23 07:06 | XMS RPT_ITS | CCD ---
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 Grade Teacher Name Role Phone Joselyn Foreman Unavailable Unavailable Unavailable Unavailable Unavailable Unavailable Unavailable Unavailable Unavailable Unavailable Unavailable Unavailable Unavailable Unavailable Yana Torres Unavailable Unavailable FELICIA BAPTISTE Attending Unavailab CARSON Street Primary Care Unavailable Carson Russell Primary Care Provider [phone] Carson Russell Unavailable [phone] Nelson Bass Unavailable SYSTEM, PROVIDER NOT IN Referring Unavaila ble SYSTEM, PROVIDER NOT IN Attending Unavaila ble CARSON RUSSELL Primary Care Unavailable Carson Russell Unavailable Unavailable Patrick Martinez Unavailable Unavailable Maggie Mayorga Unavailable Unavailable Mayra [place] Unavailable Unavailable Carson Russell MD Primary Care Provider Junaid Lau MD Unavailable Krzysztof Wu MD Unavailable [phone] Carson Russell MD Primary Care Provider Junaid [...] Vomiting, Feeling nervous (finding), Nausea (finding) [facility] Work Phone: (16 sources) Penicillins; Translations: [Penicillins] Allergy to drug (finding) 08-06-2019 [facility] Work Phone: (4 sources) Cephalexin; Translations: [cephalexin] Drug Allergy 08-22-2019 Itching, Nausea Only, Weal (disorder) [facility] (1 source) Penicillin; Translations: [penicillin] Drug Allergy [facility] Medications Current Medications Medication Drug Class(es) [...] current use of immunosuppressive drug; Translations: [Other transport analyst (current) drug therapy] Episodic Other aftercare (2 sources) Taking high risk medication; Translations: [Other residential (current) drug therapy] Episodic Other aftercare (2 sources) Other transport analyst (current) drug therapy; Translations: [Other transport analyst (current) drug therapy] Onset: 3 Episodic Other [...] 33.4 kg/m2 Jordan Marcial MD Work Phone: [facility] 03-17-2022 10:57-0400 Body temperature 97.3 [degF] Jordan Marcial MD Work Phone: [facility] 03-17-2022 10:57-0400 Body weight 77.56 kg Jordan Marcial MD Work Phone: [facility] 03-17-2022 10:57-0400 Diastolic blood pressure 84 mm[Hg] Jordan Marcial MD Work Phone: [facility] 03-17-2022 10:57-0400 Heart rate 86 /min Jordan Marcial MD Work Phone: [facility] 03-17-2022 10:57-0400 Systolic blood pressure 135 mm[Hg] Jordan Marcial MD Work Phone: [facility] 09-11-2021 14:59-0400 Body mass index (BMI) [Ratio] 32.19 kg/m2 Bunny Susie MBBS Work Phone: [facility] 09-11-2021 14:59-0400 Body temperature 98.1 [degF] Bunny Susie MBBS Work Phone: [facility] 09-11-2021 14:59-0400 Body weight 74.75 kg Bunny Susie MBBS Work Phone: [facility] 09-11-2021 14:59-0400 Diastolic blood pressure 73 mm[Hg] Bunny Susie MBBS Work Phone: [facility] 09-11-2021 14:59-0400 Heart rate 85 /min Bunny Susie MBBS Work Phone: [facility] 09-11-2021 14:59-0400 Systolic blood pressure 121 mm[Hg] Bunny Susie MBBS Work Phone: [facility] 09-27-2019 13:33-0400 BMI (Body Mass Index) 25.11 kg/m2 Joselyn Foreman [facility] Work Phone: 09-27-2019 13:33-0400 Body Temperature 97.7 [degF] Joselyn Foreman [facility] Work Phone: Encounters Encounter Date Encounter Type Care Provider Facility Start: 03-28-2023 ambulatory GWEN Peoples ity:[facility] Start: 09-28-2022 ambulatory SELF SELF Facility:[facility] Start: 05-04-2022 End: 05-05-2022 ambulatory JUSTICE BOWMAN MD Facility:B Start: 05-04-2022 End: 05-04-2022 Patient encounter procedure JUSTICE BOWMAN MD [facility] Start: 03-17-2022 End: 03-17-2022 Office outpatient visit 25 minutes Jordan Marcial MD Work Phone: [facility] Procedures Date Procedure Procedure Detail Performing Clinician [...] (4 - PPSV23 if available, else PCV20) [facility] Start: 09-11-2026 Fasting lipid profile LIPID SCREENIN G [facility] Start: 09-11-2026 Lipid panel LIPID SCREENING [facility] Start: 09-20-2022 End: 09-20-2022 Patient encounter procedure 09/20/2022 Office Visit Transplant Surgery Jordan Marcial MD [address] [place] [address] [facility] Start: 03-17-2022 End: 03-17-2022 Patient encounter procedure 03/17/2022 Office Visit Transplant Surgery Jordan Marcial MD [address] [place] [address] [facility] Start: 02-04-2022 Influenza vaccination INFLUENZA VACC INE (#1) [facility] Start: 05-15-2020 End: 05-15-2020 Office Visit 05/15/2020 Office Visit General Surgery Felicia Baptiste MD [address] [place] [address] [phone] [facility] Start: 02-05-2020 Influenza vaccinatio n given Sequential Influenza Vaccine (#1) [facility] Start: 12-25-2019 Antibody hiv-1 HIV Antigen/An tibody Screen WZ-Azfrpqrmzm-[facility] Work Phone: Start: 12-25-2019 Antibody varicella-zoster Varicella Zoster IgG Antibody DN-Kmridwxgmq-Yilncp Work Phone: Start: 12-25-2019 Echocardiography Echocardiogram [facility] Work Phone: Start: 12-25-2019 Hepatitis b core antibody hbcab total Hepatitis B Core Antibody, Total OT-Hxnwfbbjrd-Avdnka Work Phone: Start: 12-25-2019 Hepatitis b surf antibody hbsab UP-Zvoxslvnpt-Ldykpx Work Phone: Start: 12-25-2019 Hepatitis c antibody Hepatitis C Antibody Test LJ-Opljaazmxk-Djbenn Work Phone: Start: 12-25-2019 Iaad ia hepatitis b surface antigen Hepatitis B Surface Antigen IW-Vknzwafoea-Zyutpd Work Phone: Start: 12-25-2019 M. tuberculosis stim IFN-g Ql (Bld) [Interp] T-SPOT. TB BU-Rlhwxdmjwv-Mpkwzx Work Phone: Start: 12-25-2019 SYPHILIS SCREENING W ITH REFLEX SYPHILIS SCREENING WITH REFLEX RE-Kvmuhxwwgc-Kidnzh Work Phone: Start: 12-01-2019 Screening for malign ant neoplasm of breast MAMMOGRAM SCREENING DISCUSSION [facility] Start: 12-01-2019 Screening mammography MAMMOGRA M SCREENING DISCUSSION [facility] Start: 11-15-2019 Colonoscopy COLORECTAL CAN CER SCREENING DISCUSSION [facility] Start: 11-15-2019 Screening for malign ant neoplasm of colon COLORECTAL CANCER SCREENING DISCUSSION [facility] Start: 2012 Administration of he rpes zoster vaccine Zoster Vaccines (1 of 2) [facility] Start: 2012 Screening for malign ant neoplasm of colon [facility] Start: 2012 Zoster vaccine hzv l jayy for subcutaneous use ZOSTER (SHINGLES) VACCINE (1 of 2) [facility] Start: 10-27-2010 PNEUMOCOCCAL VACCINE SERIES (2 - PCV) PNEUMOCOCCAL VACCINE SERIES (2 - PCV) [facility] Start: 10-05-[address] [facility] Start: 12-17-1983 Screening for malign ant neoplasm of cervix CERVICAL CANCER SCREENING DISCUSSION [facility] Start: 1981 Third diphtheria, tetanus and acellular pertussis (DTaP) vaccination TDAP (ADULT) [facility] Start: 1981 Zoster vaccine hzv l jayy for subcutaneous use ZOSTER (SHINGLES) VACCINE (1 of 2) [facility] Start: 1980 Hepatitis C antibody , confirmatory test Hepatitis C Screening [facility] Start: 1978 COVID-19 Vaccine (1 of 2) COVID-19 Vaccine (1 of 2) [facility] Start: 1977 HIV screening HIV Screening [facility] Start: 1974 Adolescent depressio n screening assessment Depression Screening (PHQ9) [facility] Start: 12-17-1967 COVID-19 VACCINE (#1) COVID-19 VACCI NE (#1) [facility] Start: 1965 History and physical examination, annual for health maintenance Wellness Visit [facility] Start: 06-18-1963 COVID-19 VACCINE (#1) COVID-19 VACCI NE (#1) [facility] Start: 1962 Screening for malign ant neoplasm of cervix Pap Smear [facility] Start: 1962 Screening mammography Mammogram [facility] Start: 1962 Tetanus vaccination Tetanus: Every 1 0yrs [facility] NEGATED: Highlighted row has been ruled out! Planned Goals not documented FF-Gadrvpdzcx-[facility] Work Phone: Immunizations Immunization Date Immunization Notes Care Provider Donis [email or web address] 03-23-2021 influenza virus vacc ine, unspecified formulation Jordan Marcial MD Work Phone: [facility] 03-06-2019 influenza, injectabl e, quadrivalent, contains preservative Bunny Susie MBBS Work Phone: [facility] 02-04-2017 influenza, injectabl e, quadrivalent, contains preservative Bunny Susie MBBS Work Phone: [facility] 04-06-2016 influenza, seasonal, injectable Bunny Susie MBBS Work Phone: [facility] 04-06-2013 influenza, seasonal, injectable Bunny Susie MBBS Work Phone: [facility] 10-27-2009 pneumococcal polysaccharide vaccine, 23 valent Bunny Susie MBBS Work Phone: [facility] 10-04-1985 diphtheria and tetan us toxoids, adsorbed for pediatric use Bunny Susie MBBS Work Phone: [facility] Payers Date Payer Category Payer Medicare [id number] 2019 Private Health Insurance [employer] [id number] 2019-Present [address] [address] [place] [address] [id number] 2019 Unknown [id number] 2019 Unknown [facility] HMO/SANKET CE PLUS/LYNDA/LYNDA PLUS [id number] 2019-Present [id number] 2011 Medicare MEDICARE MEDICAR E A AND B [id number] 2011-Present [address] [place] [address] [id number] 2011 Medicare [id number] 2011 Medicare MEDICARE MEDICAR E PART A & B [id number] 2011-Present [place] [id number] 1962 Unknown [id number] 1962 Unknown [id number] 1962 Unknown [id number] 1962 Unknown [id number] 1962 Unknown [id number] Social History Date Type Detail Facility Start: 1960 Sex Assigned At Not [facility] file [facility] Start: 10-11-2019 Tobacco smoking status IDIS Never smoked tobacco [facility] Start: 10-11-2019 Tobacco use and exposure Smokeless tobacco non-user [facility] Start: 09-12-2020 Alcohol intake Lifetime non-d tatyana (finding) [facility] Start: 10-11-2019 History SDOH Alcohol Frequency 1 [facility] Start: 09-01-2021 End: 09-11-2021 Exposure to SARS-CoV-2 (event) Not sure [facility] Tobacco smoking status No Smoking Status Entered [facility] Sex Assigned At Female [facility] NEGATED: Highlighted row - - BJ-Hgensjpcxh-Qryqjo Work Phone: Medical Equipment Procedure Code Equipment Code Equipment Origin al Text Equipment Identifier Dates Stent Ureteral 6 fr 12cm 100cm .028in Closed Tip Push - [id number] Start: 09-11-2020 Stent Ureteral 6 fr 12cm 100cm .028in Closed Tip Push - [id number] Start: 10-06-2020 Functional Status Date Assessment Result Facility NEGATED: Highlighted row Functional performance Functional status health issues are not documented Disease LA-Onhkpivlzb-Gksrp r Work Phone: Mental Status Date Assessment Result Facility NEGATED: Highlighted row Cognitive function [Interpretation] Cognitive status health issues are not documented Disease RO-Ophesxlhrj-Saiye r Work Phone: Evaluation + Plan note 05-04-2022 Radiology Note Date & Type Note Facility 05-04-2022 Evaluation + Plan note Future Scheduled TestsCT Knee w/o Contrast Left 05/04/22 [facility] History of Present illness Narrative 03-17-2022 Wolf Ortega RN - 03/17/2022 11:00 AM EDTAnand Katz RN - 03/17/2022 11:00 AM Marco Marcial MD - 03/17/2022 11:00 AM EDT Note Date & Type Note Facility 03-17-2022 History of Present illness Narrative Images from the original note were not included. 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 No Campath Recipient? No ATG/ Steroid [place] ID Follow-up Testing Not < 28 days [...] sodium, ondansetron, sodium bicarbonate, sulfamethoxazole-trimethoprim, and tacrolimus [facility] [address] [facility] [address] Change in lab frequency / new order [...] positive January Learning Barriers: Barriers Noted: None Cultural/Mu-Ism Beliefs: None Emotional Barriers: None Desire/motivation to [...] kg (171 lb). Update Pharmacy: Pharmacy : [facility]/pharmacy #[id number] [place] [address] - [phone] [facility] [address] [facility] [place] [address] [facility] [address] [place] [address] [place] [id number] Prescriptions are 90 days LAB: [facility] [address] [facility] [address] Images from the original note were not included. Today we were happy to see Cate Fox at [facility] Post Transplant Office for [...] to contact me. documented in this encounter [facility] Instructions 03-17-2022 Patient Instructions Note Date & Type Note Facility 03-17-2022 Instructions Anand Katz RN - 03/17/2022 11:00 AM EDT Stop Bicarb Labs in clinic Return in 6 months OK for ortho referral documented in this encounter [facility] Instructions 09-11-2021 Patient Instructions Note Date & Type Note Facility 09-11-2021 Instructions Edward Machado RN - 09/11/2021 3:15 PM EDT - labs letter given for once a month labs, additional labs in clinic - No medication changes - Return to clinic 03/17/2022 with Jordan Marcial MD as scheduled documented in this encounter [facility] History of Present illness Narrative 09-11-2021 Wolf Ortega RN - 09/11/2021 3:00 PM Emelyn Machado RN - 09/11/2021 3:00 PM EDTLYNDSAY Foster - 09/11/2021 3:00 PM EDT Note Date & Type Note Facility 09-11-2021 History of Present illness Narrative Images from the original note were not included. 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 No Campath Recipient? No ATG/ Steroid [place] ID Follow-up Testing Not < 28 days [...] sodium, ondansetron, sodium bicarbonate, sulfamethoxazole-trimethoprim, and tacrolimus [facility] [address] [place] [id number] Change in lab frequency / new order [...] by mouth 2 times daily. ADDITIONAL INFORMATION: [facility] [address] [facility] [address] [facility]/pharmacy #[id number] [place] [address] [address] [facility] [address] [place] [address] [facility] [place] [address] [facility] [address] [place] [address] [place] [address] ROS and SCREEN: Chest Pain: negative Cough: [...] at the [facility]plant Center on 09/11/2021. Patient is a 60 y.o. female s/p donor kidney transplant on 09/11/20. Her [place] kidney disease was noted to be ADPKD. [...] History: Procedure Laterality Date KIDNEY TRANSPLANT W/O SAVOONGA NEPHRECTOMY N/A 09/11/2020 Laterality: N/A; Surgeon: Ninfa [...] you have any questions. Bunny Richards MD parole board member Division of Nephrology [facility] documented in this encounter [facility] Evaluation note Note Date & Type Note Facility documented in this encounter [facility] Evaluation note Note Date & Type Note Facility documented in this encounter [facility] Hospital course Narrative Note Date & Type Note Facility Hospital course Narrative No data available for this section [facility] Hospital Discharge instructions Note Date & Type Note Facility Hospital Discharge instructions No data available for this section [facility] Progress note Note Date & Type Note Facility Progress note No data available for this section [facility] Summary Purpose Family History No Family [...] FoundDocuments on File Type Date Recorded Patient Cash Applications Manager Expl anation Advance Directives and Livin g Will 04/22/2020 12:00 AM Latest Code Status on File Code Status Date Activated Date Inactivated Comments Full Code 09/11/2020 12:18 AM Latest Code Status on File Code Status Date Activated Date Inactivated Comments Full Code 09/11/2020 12:18 AM Hospital Course Note HNO ID: [id number] Author: Gaurav Gautam MD Service: Hospital Medicine [...] (more content not included)... Note HNO ID: [id number] Author: Manju Cunha Service: ? Author Type: Physician Type: Brief Op Note Filed: 08/15/2019 10:13 AM Note Text: VASCULAR SURGERY BRIEF OPERATIVE NOTE Surgery/Procedure Date: 08/15/2019 Incision/Procedure Start Time: Incision Close/Procedure End Time: Preop Diagnosis (Diagnosis Codes): Pre-Op Diagnosis Codes: * ESRD (end stage renal disease) on dialysis ([facility]) [N18.6, Z99.2] Clotted left arm AV dialysis access with nonfunctioning temporary dialysis access in the left internal jugular Postop Diagnosis: Same Procedure(s): Placement of tunneled dialysis catheter via left internal jugular using exchange technique, 19 cm cuff to tip, 14 Italian dual-lumen Primary Surgeon(s): Fredy Cunha MD Convention Manager(s): None Anesthesia: Local Estimated Blood Loss: 20 [...] L brachioaxillary AVG Surgeon: Dr. Foreman Resident/Fellow/Other Convention Manager: Beny Anesthesia: GETA I.V. Fluids: 250 albumin, 700 NS Estimated Blood Loss (mL): 25 Specimen: no Complications: None Findings: Audible bruit in graft, doppler radial and ulnar artery signals Patient Returned To/Condition: PACU, extubated, stable. 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 Thrill palpable over AVG. L radial pulse palpable. Operative Report Dictated: Dictation: yes Dictation job number: [id number] Signature/Cosignature/Attestation: Note Completion: Attending AttestbijuI performed the procedure without a resident Electronic Signatures: Joselyn Foreman) (Signed 24-Jan-2020 15:43) Authored: Post Operative Note, Signature/Cosignature/Attestation Last Updated: 24-Jan-2020 15:43 by Joselyn Foreman) Procedure Findings Note Post Operative Note: PreOp D iagnosis: ESRD Post-Procedure Diagnosis: ESRD Procedure: L brachioaxillary AVG Surgeon: Dr. Foreman Resident/Fellow/Other Convention Manager: Beny Anesthesia: GETA I.V. Fluids: 250 albumin, 700 NS Estimated Blood Loss (mL): 25 Specimen: no Complications: None Findings: Audible bruit in graft, doppler radial and ulnar artery signals Patient Returned To/Condition: PACU, extubated, stable. 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 Thrill palpable over AVG. L radial pulse palpable. Operative Report Dictated: Dictation: yes Dictation job number: [id number] Signature/Cosignature/Attestation: Note Completion: Attending AttestbijuI performed the procedure without a resident Electronic Signatures: Joselyn Foreman) (Signed 24-Jan-2020 15:43) Authored: Post Operative Note, Signature/Cosignature/Attestation Last Updated: 24-Jan-2020 15:43 by Joselyn Foreman) Note HNO ID: [id number] Author: Manju Cunha Service: ? Author Type: [...] technique, 19 cm cuff to tip, 14 Italian dual-lumen Primary Surgeon(s): Fredy Cunha MD Convention Manager(s): None Anesthesia: Local Estimated Blood Loss: 20 cc Fluids: 30 cc crystalloid Urine Output: 0 cc Specimens Removed: Yes, old temporary catheter was discarded Drains: None Complications: None Findings: Longer catheter placed the tip in the catheter at the SVC/RA junctio (more content not included)... Additional Source Comments INFORMATION SOURCE (unrecogn ized section and content) DATE CREATED AUTHOR AUTHOR'S ORGANIZ ATION 12/29/2019 [facility] DATE CREATED AUTHOR AUTHOR'S ORGANIZ ATION 04/09/2020 [facility] DATE CREATED AUTHOR AUTHOR'S ORGANIZ ATION 04/22/2020 [facility] DATE CREATED AUTHOR AUTHOR'S ORGANIZ ATION 04/23/2020 [facility] DATE CREATED AUTHOR AUTHOR'S ORGANIZ ATION 05/03/2020 [employer] DATE CREATED AUTHOR AUTHOR'S ORGANIZ ATION 06/15/2020 [facility] DATE CREATED AUTHOR AUTHOR'S ORGANIZ ATION 08/27/2021 [facility] DATE CREATED AUTHOR AUTHOR'S ORGANIZ ATION 05/06/2022 [facility] ([place]) DATE CREATED AUTHOR AUTHOR'S ORGANIZ ATION 04/01/2023 [facility] Reason for Visit (unrecogniz ed section and content) Care Teams (unrecognized sec tion and content) 3Rd Grade Teacher Relationship Specialty Start Date End Date Carson Russell MD [address] [place], [place] [id number] PCP - General Family Medicine 09/12/20 Junaid Lau MD [address] [place] [address] Nephrology 10/10/20 Krzysztof Wu MD [address] [place] [address] Nephrology 03/09/21 Care Team (unrecognized sect ion [...] BE BASED ON THE PRIMARY CLINICAL RECORDS. [employer] provides no warranty or guarantee of the accuracy or completeness of information in this document.
[2023-06-23 10:55] LABS: Albumin, Serum 3.6 g/dL (3.2-5.0); BUN 17 mg/dL (7-18); BUN/Creat Ratio 12.8 RATIO (10-20); Calcium,Total 10.3 mg/dL (8.5-10.1); Chloride 113 mmol/L (98-107); Creatinine, Serum 1.33 mg/dL (0.55-1.02); EST Glomerular Filtration Rate 43 mL/min (>60); Est Glom Filt Rate - Afr Amer 52 mL/min (>60); Glucose 102 mg/dL (74-106); Phosphorus 2.1 mg/dL (2.5-4.9); Potassium 4.8 mmol/L (3.5-5.1); Sodium Level 140 mmol/L (136-145)
[2023-06-26 17:07] LABS: Tacrolimus (FK506) 6.5 ng/mL (2.0-20.0)
== END | disposition home or self-care (01) ==
LOC: MTLAB 07:02
PROVIDERS: PCP Family Medicine; Referring Provider Internal Medicine Nephrology; Visit Provider Internal Medicine Nephrology
DX: Z79.899 Other long term (current) drug therapy (principal)
CPT/HCPCS: 36415; 80069; 80197

== ENCOUNTER 2023-07-12 07:52 | Outpatient (RCR) | payer MEDICARE, OTHER, SELFPAY ==
[2023-06-05 23:30] VITALS: BMI 27.0
[2023-07-12 10:15] LABS: Absolute Lymphocyte Count 0.95 X10^3/uL (0.83-4.51); Absolute Neutrophil Count 5.3 X10^3/uL (2.0-7.7); Basophil# 0.09 X10^3/uL; Basophil% 1.2 % (0-1); Eosinophil# 0.24 X10^3/uL; Eosinophils% 3.3 % (0-5); Hematocrit 41.8 % (37-47); Hemoglobin 13.2 g/dL (12.0-15.0); Lymphocyte # 0.95 X10^3/ul (0.83-4.51); Lymphocyte % 13.1 % (19-41); Mean Corp Hgb Conc 31.6 g/dL (32-36); Mean Corpuscular Hgb 29.3 pg (27.0-32.0); Mean Corpuscular Volume 92.9 fL (81-99); Mean Platelet Vol. 10.4 fl (6.2-12.0); Monocyte# 0.62 X10^3/uL; Monocyte% 8.5 % (0-10); NRBC Flagged by Analyzer 0 % (0-5); Neutrophil # 5.34 X10^3/uL (2.7-7.7); Neutrophil % 73.6 % (47-70); Platelet Count 299 K/mm3 (150-450); RBC Distribution Width CV 13.1 % (11.6-14.6); RBC Distribution Width SD 44.4 fl (35.1-43.9); White Blood Count 7.3 K/mm3 (4.4-11.0)
[2023-07-12 11:14] LABS: ALB/GLOB Ratio 1.2 RATIO (0.9-2.4); AST(SGOT) 16 U/L (15-37); Alanine Aminotransfer ALT/SGPT 26 U/L (13-56); Albumin, Serum 3.6 g/dL (3.2-5.0); Alkaline Phosphatase 94 U/L (45-117); Anion Gap 2 (5-15); BUN 25 mg/dL (7-18); BUN/Creat Ratio 18.8 RATIO (10-20); Chloride 114 mmol/L (98-107); Creatinine, Serum 1.33 mg/dL (0.55-1.02); EST Glomerular Filtration Rate 43 mL/min (>60); Est Glom Filt Rate - Afr Amer 52 mL/min (>60); Glucose 97 mg/dL (74-106); Potassium 4.5 mmol/L (3.5-5.1); Protein, Total 6.6 g/dL (6.4-8.2); Sodium Level 139 mmol/L (136-145)
[2023-07-14 18:08] LABS: Tacrolimus (FK506) 5.7 ng/mL (2.0-20.0)
== END 2023-08-04 18:00 | disposition home or self-care (01) ==
LOC: MTLAB 07:52
PROVIDERS: PCP Family Medicine
DX: Z94.0 Kidney transplant status (principal); I12.9 Hypertensive chronic kidney disease with stage 1 through stage 4 chronic kidney disease, or unspecified chronic kidney disease; N18.31 Chronic kidney disease, stage 3a; E83.9 Disorder of mineral metabolism, unspecified; M89.9 Disorder of bone, unspecified; D63.1 Anemia in chronic kidney disease; R79.9 Abnormal finding of blood chemistry, unspecified; Z79.899 Other long term (current) drug therapy
CPT/HCPCS: 36415; 80053; 80197; 85025

== ENCOUNTER → 2023-07-28 | Outpatient (CLI) | payer MEDICARE, OTHER, SELFPAY ==
--- OUTSIDE RECORDS SUMMARY | 2023-07-28 07:51 | XMS RPT_ITS | CCD ---
Author Name Unknown Address [address] [place] [address] Organization [facility] Care Team Providers Care Collection Systems Modeler Name Role Phone Joselyn Foreman Unavailable Unavailable Unavailable Unavailable Unavailable Unavailable Unavailable Unavailable Unavailable Unavailable Unavailable Unavailable Unavailable Unavailable Yana Torres Unavailable Unavailable FELICIA BAPTISTE Attending Unavailab [address] Primary Care Unavailable Carson Russell Primary Care Provider Carson Russell Unavailable Nelson Bass Unavailable SYSTEM, [...] [Penicillins] Allergy to drug (finding) 08-06-2019 [facility] Work Phone: (4 sources) Cephalexin; Translations: [cephalexin] Drug Allergy 08-22-2019 Itching, Nausea Only, Weal (disorder) [facility] (1 source) Penicillin; Translations: [penicillin] Drug Allergy [facility] Medications Current Medications Medication Drug Class(es) Dates [...] current use of immunosuppressive drug; Translations: [Other long wall mining machine helper (current) drug therapy] Episodic Other aftercare (2 sources) Taking high risk medication; Translations: [Other long wall mining machine helper (current) drug therapy] Episodic Other nutritional; endocrine; and metabolic disorders (2 sources) Hyperhomocysteinemia ; Translations: [Homocystinuria] Onset: 0 10-11-2019 Chronic Other nutritional; endocrine; and metabolic disorders (2 sources) Obese class I; Translations: [Obesity, unspecified] Onset: 1 09-16-2020 Chronic Other nutritional; endocrine; and metabolic disorders (2 sources) Disorder of mineral metabolism, unspecified; 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, 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 Residual codes; unclassified (2 sources) Awaiting transplantation [...] Translations: [Hyperkalemia] Onset: 08-15-2019 10-11-2019 Episodic Other aftercare (2 sources) Other skilled nursing (current) drug therapy; Translations: [Other skilled nursing (current) drug therapy] Onset: 03-28-2023 Episodic Other bone disease and musculoskeletal deformities (2 sources) Disorder of bone, unspecified; Translations: [Disorder of bone, unspecified] Onset: 09-28-2022 Episodic Other screening for suspected conditions (not mental disorders or infectious disease) (4 sources) Blood chemistry abnormal; Translations: [Abnormal finding of blood chemistry, unspecified] Onset: 03-28-2023 Episodic Other skin disorders (2 sources) Sebaceous [...] 33.4 kg/m2 Jordan Marcial MD Work Phone: [facility] 03-17-2022 10:57-0400 Body temperature 97.3 [degF] Jordan Marcial MD Work Phone: [facility] 03-17-2022 10:57-0400 Body weight 77.56 kg Jordan Marcial MD Work Phone: [facility] 03-17-2022 10:57-0400 Diastolic blood pressure 84 mm[Hg] Jordan Marcial MD Work Phone: [facility] 03-17-2022 10:57-0400 Heart rate 86 /min Jordan Marcial MD Work Phone: [facility] 03-17-2022 10:57-0400 Systolic blood pressure 135 mm[Hg] Jordan Marcial MD Work Phone: [facility] 09-11-2021 14:59-0400 Body mass index (BMI) [Ratio] 32.19 kg/m2 Bunny Susie MBBS Work Phone: [facility] 09-11-2021 14:59-0400 Body temperature 98.1 [degF] Bunny Susie MBBS Work Phone: [facility] 09-11-2021 14:59-0400 Body weight 74.75 kg Bunny Susie MBBS Work Phone: [facility] 09-11-2021 14:59-0400 Diastolic blood pressure 73 mm[Hg] Bunny Susie MBBS Work Phone: [facility] 09-11-2021 14:59-0400 Heart rate 85 /min Bunny Susie MBBS Work Phone: [facility] 09-11-2021 14:59-0400 Systolic blood pressure 121 mm[Hg] Bunny Susie MBBS Work Phone: [facility] 09-27-2019 13:33-0400 BMI (Body Mass Index) 25.11 kg/m2 [facility] Work Phone: 09-27-2019 13:33-0400 Body Temperature 97.7 [degF] Joselyn Foreman MG-V[facility] Work Phone: Encounters Encounter Date Encounter Type Care Provider Facility Start: 03-28-2023 ambulatory GWEN Peoples [facility] Start: 09-28-2022 ambulatory SELF SELF Facility:[facility] Start: 05-04-2022 End: 05-05-2022 ambulatory JUSTICE BOWMAN MD Facility:B Start: 05-04-2022 End: 05-04-2022 Patient encounter procedure JUSTICE BOWMAN MD [facility] Start: 03-17-2022 End: 03-17-2022 Office outpatient visit 25 minutes Jordan Marcial MD Work Phone: [facility] Procedures Date Procedure Procedure Detail [...] Marcial MD Work Phone: Laparoscopic cholecystectomy Mayra Colroado Plan of Treatment Date Care Activity Detail Author Start: 12-17-2027 PNEUMOCOCCAL VACCINE SERIES (4 - PPSV23 if available, else PCV20) PNEUMOCOCCAL VACCINE SERIES (4 - PPSV23 if available, else PCV20) [facility] Start: 09-11-2026 Fasting lipid profile LIPID SCREENIN G [facility] Start: 09-11-2026 Lipid panel LIPID SCREENING [facility] Start: 09-20-2022 End: 09-20-2022 Patient encounter procedure 09/20/2022 Office Visit Transplant Surgery Jordan Marcial MD [address] [place] [address] [facility] [place] [facility] Start: 03-17-2022 End: 03-17-2022 Patient encounter procedure 03/17/2022 Office Visit Transplant Surgery Jordan Marcial MD [address] [place] [address] [facility] Start: 02-04-2022 Influenza vaccination INFLUENZA VACC INE (#1) [facility] Start: 05-15-2020 End: 05-15-2020 Office Visit 05/15/2020 Office Visit General Surgery Felicia Bapitste MD [address] [place] [address] [phone] [facility] Start: 02-05-2020 Influenza vaccinatio n given Sequential Influenza Vaccine (#1) [facility] Start: 12-25-2019 Antibody hiv-1 HIV Antigen/An tibody Screen UX-Jjbyznnhps-Rrcxwv Work Phone: Start: 12-25-2019 Antibody varicella-zoster Varicella Zoster IgG Antibody HA-Rjjbfvrggh-Newzko Work Phone: Start: 12-25-2019 Echocardiography Echocardiogram [facility]-T [facility]plant[facility] Work Phone: Start: 12-25-2019 Hepatitis b core antibody hbcab total Hepatitis B Core Antibody, Total JS-Tcjrvgxdfo-Jhlqsu Work Phone: Start: 12-25-2019 Hepatitis b surf antibody hbsab NT-Qpikrzxvvc-Aompqx Work Phone: Start: 12-25-2019 Hepatitis c antibody Hepatitis C Antibody Test GJ-Cbkzrxssff-Siklvn Work Phone: Start: 12-25-2019 Iaad ia hepatitis b surface antigen Hepatitis B Surface Antigen ZU-Tirdcbcsby-Dmgepd Work Phone: Start: 12-25-2019 M. tuberculosis stim IFN-g Ql (Bld) [Interp] T-SPOT. TB WA-Ipdwjltmak-Hrbfxb Work Phone: Start: 12-25-2019 SYPHILIS SCREENING W ITH REFLEX SYPHILIS SCREENING WITH REFLEX MQ-Ceirypjhwl-Gtdslg Work Phone: Start: 12-01-2019 Screening for malign ant neoplasm of breast MAMMOGRAM SCREENING DISCUSSION [facility] Start: 12-01-2019 Screening mammography MAMMOGRA M SCREENING DISCUSSION [facility] Start: 11-15-2019 Colonoscopy COLORECTAL CAN CER SCREENING DISCUSSION [facility] Start: 11-15-2019 Screening for malign ant neoplasm of colon COLORECTAL CANCER SCREENING DISCUSSION [facility] Start: 2012 Administration of he rpes zoster vaccine Zoster Vaccines (1 of 2) [facility] Start: 2012 Screening for malign ant neoplasm of colon [facility] Start: 2012 Zoster vaccine hzv l jayy for subcutaneous use ZOSTER (SHINGLES) VACCINE (1 of 2) [facility] Start: 10-27-2010 PNEUMOCOCCAL VACCINE SERIES (2 - PCV) PNEUMOCOCCAL VACCINE SERIES (2 - PCV) [facility] Start: 10-05-1995 Tetanus vaccination TETANUS [facility] Start: 12-17-1983 Screening for malign ant neoplasm of cervix CERVICAL CANCER SCREENING DISCUSSION [facility] Start: 1981 Third diphtheria, tetanus and acellular pertussis (DTaP) vaccination TDAP (ADULT) [facility] Start: 1981 Zoster vaccine hzv l jayy for subcutaneous use ZOSTER (SHINGLES) VACCINE (1 of 2) [facility] Start: 1980 Hepatitis C antibody , confirmatory test Hepatitis C Screening [facility] Start: 1978 COVID-19 Vaccine (1 of 2) COVID-19 Vaccine (1 of 2) [facility] Start: 1977 HIV screening HIV Screening [facility] Start: 1974 Adolescent depressio n screening assessment Depression Screening (PHQ9) [facility] Start: 12-17-1967 COVID-19 VACCINE (#1) COVID-19 VACCI NE (#1) [facility] Start: 1965 History and physical examination, annual for health maintenance Wellness Visit [facility] Start: 06-18-1963 COVID-19 VACCINE (#1) COVID-19 VACCI NE (#1) [facility] Start: 1962 Screening for malign ant neoplasm of cervix Pap Smear [facility] Start: 1962 Screening mammography Mammogram [facility] Start: 1962 Tetanus vaccination Tetanus: Every 1 0yrs [facility] NEGATED: Highlighted row has been ruled out! Planned Goals not documented GQ-Xqqxntyioo-Vcofiq Work Phone: Immunizations Immunization Date Immunization Notes Care Provider Donis frederickshanique 03-23-2021 influenza virus vacc ine, unspecified formulation Jordan Marcial MD Work Phone: [facility] 03-06-2019 influenza, injectabl e, quadrivalent, contains preservative Bunny Susie MBBS Work Phone: [facility] 02-04-2017 influenza, injectabl e, quadrivalent, contains preservative Bunny Susie MBBS Work Phone: [facility] 04-06-2016 influenza, seasonal, injectable Bunny Susie MBBS Work Phone: [facility] 04-06-2013 influenza, seasonal, injectable Bunny Susie MBBS Work Phone: [facility] 10-27-2009 pneumococcal polysaccharide vaccine, 23 valent Bunny Susie MBBS Work Phone: [facility] 10-04-1985 diphtheria and tetan us toxoids, adsorbed for pediatric use Bunny Susie MBBS Work Phone: [facility] Payers Date Payer Category Payer Medicare [id number] 2019 Private Health Insurance [facility] [id number] 2019-Present [address] [address] [place] [address] [id number] 2019 Unknown [id number] 2019 Unknown [facility] HMO/SANKET CE PLUS/LYNDA/LYNDA PLUS [id number] 2019-Present [id number] 2011 Medicare MEDICARE MEDICAR E A AND B [id number] 2011-Present [address] [place] [address] [id number] 2011 Medicare [id number] 2011 Medicare MEDICARE MEDICAR E PART A & B [id number] 2011-Present [place] [id number] 1962 Unknown [id number] 1962 Unknown [id number] 1962 Unknown [id number] 1962 Unknown [id number] 1962 Unknown [id number] Social History Date Type Detail Facility Start: 1960 [facility] Start: 10-11-2019 Tobacco smoking status FLIS Never smoked tobacco [facility] Start: 10-11-2019 Tobacco use and exposure Smokeless tobacco non-user [facility] Start: 09-12-2020 Alcohol intake Lifetime non-d tatyana (finding) [facility] Start: 10-11-2019 History SDOH Alcohol Frequency 1 [facility] Start: 09-01-2021 End: 09-11-2021 Exposure to SARS-CoV-2 (event) Not sure [facility] Tobacco smoking status No Smoking Status Entered [facility] Sex Assigned At Female [facility] NEGATED: Highlighted row - - VG-Dcbdbijiki-Jezadq Work Phone: Medical Equipment Procedure Code Equipment Code Equipment Origin al Text Equipment Identifier Dates Stent Ureteral 6 fr 12cm 100cm .028in Closed Tip Push - [id number] Start: 09-11-2020 Stent Ureteral 6 fr 12cm 100cm .028in Closed Tip Push - [id number] Start: 10-06-2020 Functional Status Date Assessment Result Facility NEGATED: Highlighted row Functional performance Functional status health issues are not documented Disease LM-Iymvxmxqmy-Ehntp r Work Phone: Mental Status Date Assessment Result Facility NEGATED: Highlighted row Cognitive function [Interpretation] Cognitive status health issues are not documented Disease EC-Imfyvsldag-Guuie r Work Phone: Evaluation + Plan note 05-04-2022 Radiology Note Date & Type Note Facility 05-04-2022 Evaluation + Plan note Future Scheduled TestsCT Knee w/o Contrast Left 05/04/22 [facility] History of Present illness Narrative 03-17-2022 Wolf Ortega RN - 03/17/2022 11:00 AM EDTAnand Katz RN - 03/17/2022 11:00 AM Marco Marcial MD - 03/17/2022 11:00 AM EDT Note Date & Type Note Facility 03-17-2022 History of Present illness Narrative Images from the original note were not included. PREP SHEET FOR NEPHROLOGY CLINIC Patient Name: Cate Fox Front Desk Receptionist: Wolf Ortega Date of Kidney Transplant: 09/11/2020 Primary Disease: Polycystic Kidneys Transplant Other Spatial Scientist: Jordan Marcial Primary Care physician: Carson Russell Last Transplant Appointment: 09/11/2021 MONITORING: DGF Elevated cr, but not on HD HLA Match: A1 B2 DR1 Living Donor? No Campath Recipient? No ATG/ Steroid [place] ID Follow-up Testing Not < 28 days [...] sodium, ondansetron, sodium bicarbonate, sulfamethoxazole-trimethoprim, and tacrolimus [facility] [address] [facility] [address] Change in lab frequency / new order [...] positive January Learning Barriers: Barriers Noted: None Cultural/Gnosticist Beliefs: None Emotional Barriers: None Desire/motivation to [...] kg (171 lb). Update Pharmacy: Pharmacy : [facility]/pharmacy #[id number] [place] [address] [phone] [facility] [address] [facility] [place] [address] [facility] [address] [place] [address] [place] [address] Prescriptions are 90 days LAB: [facility] [address] [facility] [address] Images from the original note were not included. Today we were happy to see Cate Fox at [facility] Post Transplant Office for [...] to contact me. documented in this encounter [facility] Instructions 03-17-2022 Patient Instructions Note Date & Type Note Facility 03-17-2022 Instructions Anand Katz RN - 03/17/2022 11:00 AM EDT Stop Bicarb Labs in clinic Return in 6 months OK for ortho referral documented in this encounter [facility] Instructions 09-11-2021 Patient Instructions Note Date & Type Note Facility 09-11-2021 Instructions Edward Machado RN - 09/11/2021 3:15 PM EDT - labs letter given for once a month labs, additional labs in clinic - No medication changes - Return to clinic 03/17/2022 with Jordan Marcial MD as scheduled documented in this encounter [facility] History of Present illness Narrative 09-11-2021 Wolf Ortega RN - 09/11/2021 3:00 PM Emelyn Machado RN - 09/11/2021 3:00 PM EDTLYNDSAY Foster - 09/11/2021 3:00 PM EDT Note Date & Type Note Facility 09-11-2021 History of Present illness Narrative Images from the original note were not included. PREP SHEET FOR NEPHROLOGY CLINIC Patient Name: Cate Fox Front Desk Receptionist: Wolf Ortega Date of Kidney Transplant: 09/11/2020 365d Cr trending up Primary Disease: Polycystic Kidneys Transplant Other Spatial Scientist: Jordan Marcial Primary Care physician: Carson Russell Last Transplant Appointment: 03/09/2021 MONITORING: DGF Elevated cr, but not on HD HLA Match: A1 B2 DR1 Living Donor? No Campath Recipient? No ATG/ Steroid [place] ID Follow-up Testing Not < 28 days [...] sodium, ondansetron, sodium bicarbonate, sulfamethoxazole-trimethoprim, and tacrolimus [facility] [address] [place] [id number] Change in lab frequency / new order [...] by mouth 2 times daily. ADDITIONAL INFORMATION: [facility] [address] [facility] [address] [facility]/pharmacy #[id number] - [place] [address] [address] [facility] [address] [place] [address] [facility] [place] [address] [facility] [address] [place] [address] [place] [address] ROS and SCREEN: Chest Pain: negative Cough: [...] PHYSICIAN: I saw Cate Fox at the [facility] on 09/11/2021. Patient is a 60 y.o. female s/p donor kidney transplant on 09/11/20. Her [employer] [place] kidney disease was noted to be ADPKD. [...] History: Procedure Laterality Date KIDNEY TRANSPLANT W/O PLATINUM NEPHRECTOMY N/A 09/11/2020 Laterality: N/A; Surgeon: Ninfa [...] you have any questions. Bunny Richards MD transportation department head Division of Nephrology [facility] documented in this encounter [facility] Evaluation note Note Date & Type Note Facility documented in this encounter [facility] Evaluation note Note Date & Type Note Facility documented in this encounter [facility] Hospital course Narrative Note Date & Type Note Facility Hospital course Narrative No data available for this section [facility] Hospital Discharge instructions Note Date & Type Note Facility Hospital Discharge instructions No data available for this section [facility] Progress note Note Date & Type Note Facility Progress note No data available for this section [facility] Summary Purpose Family History No Family History [...] FoundDocuments on File Type Date Recorded Patient Convict Guard Expl anation Advance Directives and Livin g Will 04/22/2020 12:00 AM Latest Code Status on File Code Status Date Activated Date Inactivated Comments Full Code 09/11/2020 12:18 AM Latest Code Status on File Code Status Date Activated Date Inactivated Comments Full Code 09/11/2020 12:18 AM Hospital Course Note HNO ID: [id number] Author: Gaurav Gautam MD Service: Hospital Medicine [...] (more content not included)... Note HNO ID: [id number] Author: Manju Cunha Service: ? Author Type: Physician Type: Brief Op Note Filed: 08/15/2019 10:13 AM Note Text: VASCULAR SURGERY BRIEF OPERATIVE NOTE Surgery/Procedure Date: 08/15/2019 Incision/Procedure Start Time: Incision Close/Procedure End Time: Preop Diagnosis (Diagnosis Codes): Pre-Op Diagnosis Codes: * ESRD (end stage renal disease) on dialysis ([facility]) [N18.6, Z99.2] Clotted left arm AV dialysis access with nonfunctioning temporary dialysis access in the left internal jugular Postop Diagnosis: Same Procedure(s): Placement of tunneled dialysis catheter via left internal jugular using exchange technique, 19 cm cuff to tip, 14 Polish dual-lumen Primary Surgeon(s): Fredy Cunha MD [employer] Specialist(s): None Anesthesia: Local Estimated Blood Loss: 20 [...] L brachioaxillary AVG Surgeon: Dr. Foreman Resident/Fellow/Other Vacc[employer] Solutions Specialist: eBny Anesthesia: GETA I.V. Fluids: 250 albumin, 700 NS Estimated Blood Loss (mL): 25 Specimen: no Complications: None Findings: Audible bruit in graft, doppler radial and ulnar artery signals Patient Returned To/Condition: PACU, extubated, stable. 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 Thrill palpable over AVG. L radial pulse palpable. Operative Report Dictated: Dictation: yes Dictation job number: [id number] Signature/Cosignature/Attestation: Note Completion: Attending AttestbijuI performed the procedure without a resident Electronic Signatures: Joselyn Foreman) (Signed 24-Jan-2020 15:43) Authored: Post Operative Note, Signature/Cosignature/Attestation Last Updated: 24-Jan-2020 15:43 by Joselyn Foreman) Procedure Findings Note Post Operative Note: PreOp D iagnosis: ESRD Post-Procedure Diagnosis: ESRD Procedure: L brachioaxillary AVG Surgeon: Dr. Foreman Resident/Fellow/Other [employer] Specialist: Beny Anesthesia: GETA I.V. Fluids: 250 albumin, 700 NS Estimated Blood Loss (mL): 25 Specimen: no Complications: None Findings: Audible bruit in graft, doppler radial and ulnar artery signals Patient Returned To/Condition: PACU, extubated, stable. 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 Thrill palpable over AVG. L radial pulse palpable. Operative Report Dictated: Dictation: yes Dictation job number: [id number] Signature/Cosignature/Attestation: Note Completion: Attending AttestbijuI performed the procedure without a resident Electronic Signatures: Joselyn Foreman) (Signed 24-Jan-2020 15:43) Authored: Post Operative Note, Signature/Cosignature/Attestation Last Updated: 24-Jan-2020 15:43 by Joselyn Foreman) Note HNO ID: [id number] Author: Manju Cunha Service: ? Author Type: [...] technique, 19 cm cuff to tip, 14 Polish dual-lumen Primary Surgeon(s): Ferdy Cunha MD [employer] Specialist(s): None Anesthesia: Local Estimated Blood Loss: 20 cc Fluids: 30 cc crystalloid Urine Output: 0 cc Specimens Removed: Yes, old temporary catheter was discarded Drains: None Complications: None Findings: Longer catheter placed the tip in the catheter at the SVC/RA junctio (more content not included)... Additional Source Comments INFORMATION SOURCE (unrecogn ized section and content) DATE CREATED AUTHOR AUTHOR'S ORGANIZ ATION 12/29/2019 [facility] DATE CREATED AUTHOR AUTHOR'S ORGANIZ ATION 04/09/2020 [facility] DATE CREATED AUTHOR AUTHOR'S ORGANIZ ATION 04/22/2020 [facility] DATE CREATED AUTHOR AUTHOR'S ORGANIZ ATION 04/23/2020 [facility] DATE CREATED AUTHOR AUTHOR'S ORGANIZ ATION 05/03/2020 [employer] DATE CREATED AUTHOR AUTHOR'S ORGANIZ ATION 06/15/2020 [facility] DATE CREATED AUTHOR AUTHOR'S ORGANIZ ATION 08/27/2021 [facility] DATE CREATED AUTHOR AUTHOR'S ORGANIZ ATION 05/06/2022 [facility] ([place] DATE CREATED AUTHOR AUTHOR'S ORGANIZ ATION 07/20/2023 [facility] Reason for Visit (unrecogniz ed section and content) Care Teams (unrecognized sec tion and content) Collection Systems Modeler Relationship Specialty Start Date End Date Carson Russell MD [address] [place], [place] [id number] PCP - General Family Medicine 09/12/20 Junaid Lau MD [address] [place] [address] Nephrology 10/10/20 Krzysztof Wu MD [address] [place] [address] Nephrology 03/09/21 Care Team (unrecognized sect ion [...] BE BASED ON THE PRIMARY CLINICAL RECORDS. [employer] provides no warranty or guarantee of the accuracy or completeness of information in this document.
[2023-07-28 10:29] LABS: Anion Gap 3 (5-15); BUN 27 mg/dL (7-18); BUN/Creat Ratio 19.4 RATIO (10-20); Calcium,Total 9.8 mg/dL (8.5-10.1); Chloride 114 mmol/L (98-107); Creatinine, Serum 1.39 mg/dL (0.55-1.02); EST Glomerular Filtration Rate 41 mL/min (>60); Est Glom Filt Rate - Afr Amer 50 mL/min (>60); Glucose 111 mg/dL (74-106); Potassium 4.7 mmol/L (3.5-5.1); Sodium Level 138 mmol/L (136-145)
[2023-07-28 10:32] LABS: Protein, Urine (Random) 9.2 mg/dL (<11.9); Protein:Creat Ratio 119 mg/g CRE (0-200)
== END | disposition home or self-care (01) ==
PROVIDERS: PCP Family Medicine
DX: Z94.0 Kidney transplant status (principal); D84.9 Immunodeficiency, unspecified; Z79.60 Long term (current) use of unspecified immunomodulators and immunosuppressants; R79.9 Abnormal finding of blood chemistry, unspecified; Z48.298 Encounter for aftercare following other organ transplant; Z79.899 Other long term (current) drug therapy; E78.2 Mixed hyperlipidemia; R68.89 Other general symptoms and signs
CPT/HCPCS: 36415; 80048; 82570; 84156

== ENCOUNTER → 2023-08-11 | Outpatient (CLI) | payer MEDICARE, OTHER, SELFPAY ==
--- NOTE | 2023-08-11 13:59 | BD_ITS ---
STUDY: DUAL ENERGY X-RAY ABSORPTIOMETRY / DXA REASON FOR EXAM: Female, 62 years old. OSTEO TECHNIQUE: Bone Mineral Density (BMD) measurements of lumbar spine and bilateral hips were obtained. COMPARISON: Comparison is made with prior study dated May 13, 2022. FINDINGS: Lumbar Spine (L1-L4): g/cm2 (0.870) / T-score (-1.6) / Z-score (-0.2) Findings are suggestive of osteopenia with a moderate fracture risk. Left Femur Total: g/cm2 (0.672) / T-score (-2.2) / Z-score (-1.2) Left Femoral Neck: g/cm2 (0.511) / T-score (-3.0) / Z-score (-1.7) Right Femur Total: g/cm2 (0.762) / T-score (-1.5) / Z-score (-0.5) Right Femoral Neck: g/cm2 (0.581) / T-score (-2.4) / Z-score (-1.1) The T-Scores on the most recent prior examination were: Lumbar Spine (L1-L4): There has been improvement of bone density since the previous examination. Left Femur Total: which represents an improvement of 7.4%. Right Femur Total: which represents a worsening of 0.5%. BD/Dexa Bone Density Study IMPRESSION: The patient is considered osteoporotic as outlined below according to World Ferdinand Organization (WHO) criteria with a high fracture risk. There has been improvement of bone density since the previous examination. Reference Information: The T-score is the number of standard deviations above or below the standard which is normal for young adults at their peak bone mineral density. The World Health Organization (WHO) interprets the T-scores as follows: Above -1 Normal bone density Between -1 and -2.5 Osteopenia Equal to / or below -2.5 Osteoporosis As a practical clinical guideline, osteopenia may be graded as follows: Mild -1 through -1.5 Moderate -1.6 through -2.0 Severe -2.1 through -2.4 The Z-score is the number of standard deviations above or below age-matched controls. A Z-score of less than -1.5 would be considered abnormal. References: 1. NIH Osteoporosis and Related Bone Diseases www osteo.org 2. International Society for Clinical Densitometry www iscd.org 3. National Osteoporosis Foundation www nof.org Electronically Signed: Jourdan Marquis MD at 9:34 EDT ,
== END | disposition home or self-care (01) ==
LOC: OPBD 13:59
PROVIDERS: PCP Family Medicine; Referring Provider Family Medicine; Visit Provider Family Medicine
DX: M81.0 Age-related osteoporosis without current pathological fracture (principal)
CPT/HCPCS: 77080

== ENCOUNTER 2023-11-28 07:01 | Outpatient (RCR) | payer MEDICARE, OTHER, SELFPAY ==
[2023-08-05 02:17] VITALS: BMI 27.0
[2023-11-28 10:10] LABS: Hematocrit 42.3 % (37-47); Hemoglobin 13.3 g/dL (12.0-15.0); Mean Corp Hgb Conc 31.4 g/dL (32-36); Mean Corpuscular Hgb 28.9 pg (27.0-32.0); Mean Platelet Vol. 10.3 fl (6.2-12.0); Platelet Count 294 K/mm3 (150-450); RBC Distribution Width CV 13.5 % (11.6-14.6); RBC Distribution Width SD 45.3 fl (35.1-43.9); White Blood Count 8.2 K/mm3 (4.4-11.0)
[2023-11-28 10:38] LABS: Vitamin D,25 Hydroxy 14.5 ng/mL
[2023-11-28 10:45] LABS: AST(SGOT) 14 U/L (15-37); Alanine Aminotransfer ALT/SGPT 22 U/L (13-56); Albumin, Serum 3.4 g/dL (3.2-5.0); Alkaline Phosphatase 96 U/L (45-117); Anion Gap 6 (5-15); BUN 21 mg/dL (7-18); BUN/Creat Ratio 16.8 RATIO (10-20); Calcium,Total 10.9 mg/dL (8.5-10.1); Chloride 112 mmol/L (98-107); Cholesterol 145 mg/dL (200); Creatinine, Serum 1.25 mg/dL (0.55-1.02); EST Glomerular Filtration Rate 46 mL/min (>60); Est Glom Filt Rate - Afr Amer 56 mL/min (>60); Ferritin 1307 ng/mL (8-252); Globulin 3.3 g/dL (2.2-4.2); Glucose 109 mg/dL (74-106); High Density Lipoprotein 69 mg/dL; Iron 86 ug/dL (50-170); Iron Binding Capacity,Total 248 ug/dL (250-450); Magnesium 1.6 mg/dL (1.6-2.6); PERCENT IRON SATURATION 34.7 % (15.0-55.0); Phosphorus 2.5 mg/dL (2.5-4.9); Potassium 4.4 mmol/L (3.5-5.1); Protein, Total 6.7 g/dL (6.4-8.2); Sodium Level 139 mmol/L (136-145); Triglycerides 119 mg/dL; Uric Acid 5.5 mg/dL (2.6-6.0); Very Low Density Lipoprotein 24 mg/dL (5-40)
[2023-11-28 10:56] LABS: Microalbumin,Random Urine 5.2 mg/L (NO RANGE EST.); Microalbumin:Creatinine Ratio 5.7 mg/g CRE (<30 mg/g CRE); Protein:Creat Ratio 109 mg/g CRE (0-200)
[2023-11-28 11:07] LABS: PTHIN 147.1 pg/mL (18.4-80.1)
[2023-11-30 20:08] LABS: Tacrolimus (FK506) 6.7 ng/mL (2.0-20.0)
== END 2023-11-28 18:00 | disposition home or self-care (01) ==
LOC: MTLAB 07:01
PROVIDERS: PCP Family Medicine
DX: Z94.0 Kidney transplant status (principal); R79.9 Abnormal finding of blood chemistry, unspecified; Z79.899 Other long term (current) drug therapy; Z48.298 Encounter for aftercare following other organ transplant; D84.9 Immunodeficiency, unspecified; R68.89 Other general symptoms and signs; Z91.89 Other specified personal risk factors, not elsewhere classified; D64.9 Anemia, unspecified; M10.9 Gout, unspecified
CPT/HCPCS: 36415; 80053; 80061; 80197; 82043; 82306; 82570; 82728; 83540; 83550; 83735; 83970; 84100; 84156; 84550; 85027

== ENCOUNTER → 2023-12-29 | Outpatient (CLI) | payer MEDICARE, OTHER, SELFPAY ==
--- NOTE | 2023-12-29 10:25 | RAD_ITS ---
STUDY: X-RAY - PELVIS AND RIGHT HIP REASON FOR EXAM: Female, 63 years old. OA TECHNIQUE: 3 views of the pelvis and hip. COMPARISON: None. FINDINGS: There is a non-specific bowel gas pattern. Normal visualized soft tissue structures. Normal bilateral iliac wings, sacroiliac joints and visualized sacrum. Normal bilateral superior and inferior pubic rami. Normal pubic symphysis. Normal bilateral ischial tuberosities. Normal visualized femoral head. Normal acetabulum. Normal hip joint. RAD/HIP, UNI W/ Pelvis 2-3 Views IMPRESSION: Normal x-ray examination of the pelvis and hip. Electronically Signed: Marcel Kahn MD at 9:19 EDT ,
== END | disposition home or self-care (01) ==
PROVIDERS: PCP Family Medicine; Referring Provider Anesthesiology Pain Medicine; Visit Provider Anesthesiology Pain Medicine
DX: M16.11 Unilateral primary osteoarthritis, right hip (principal)
CPT/HCPCS: 73502

== ENCOUNTER 2024-03-14 07:00 | Outpatient (RCR) | payer MEDICARE, OTHER, SELFPAY ==
[2023-12-05 04:21] VITALS: BMI 27.0
[2024-03-14 10:12] LABS: Absolute Lymphocyte Count 0.91 X10^3/uL (0.83-4.51); Absolute Neutrophil Count 5.6 X10^3/uL (2.0-7.7); Basophil# 0.09 X10^3/uL; Basophil% 1.2 % (0-1); Eosinophil# 0.19 X10^3/uL; Eosinophils% 2.5 % (0-5); Hemoglobin 12.9 g/dL (12.0-15.0); Lymphocyte # 0.91 X10^3/ul (0.83-4.51); Lymphocyte % 12.1 % (19-41); Mean Corp Hgb Conc 31.5 g/dL (32-36); Mean Corpuscular Hgb 29.4 pg (27.0-32.0); Mean Corpuscular Volume 93.4 fL (81-99); Mean Platelet Vol. 11.2 fl (6.2-12.0); Monocyte# 0.66 X10^3/uL; Monocyte% 8.8 % (0-10); NRBC Flagged by Analyzer 0 % (0-5); Neutrophil # 5.64 X10^3/uL (2.7-7.7); Neutrophil % 75.1 % (47-70); Platelet Count 250 K/mm3 (150-450); RBC Distribution Width CV 13.2 % (11.6-14.6); RBC Distribution Width SD 45.1 fl (35.1-43.9); Red Blood Count 4.39 M/mm3 (4.2-5.4); White Blood Count 7.5 K/mm3 (4.4-11.0)
[2024-03-14 10:46] LABS: Anion Gap 5 (5-15); BUN 20 mg/dL (7-18); BUN/Creat Ratio 15.3 RATIO (10-20); Calcium,Total 10.4 mg/dL (8.5-10.1); Chloride 114 mmol/L (98-107); Creatinine, Serum 1.31 mg/dL (0.55-1.02); EST Glomerular Filtration Rate 44 mL/min (>60); Est Glom Filt Rate - Afr Amer 53 mL/min (>60); Glucose 108 mg/dL (74-106); Potassium 4.4 mmol/L (3.5-5.1); Sodium Level 141 mmol/L (136-145)
[2024-03-14 11:48] LABS: Vitamin D,25 Hydroxy 60.5 ng/mL
[2024-03-17 10:13] LABS: Tacrolimus (FK506) 6.3 ng/mL (2.0-20.0)
== END 2024-03-14 18:00 | disposition home or self-care (01) ==
LOC: MTLAB 07:00
PROVIDERS: PCP Family Medicine
DX: Z94.0 Kidney transplant status (principal); R79.89 Other specified abnormal findings of blood chemistry; Z48.298 Encounter for aftercare following other organ transplant; D84.9 Immunodeficiency, unspecified; Z79.899 Other long term (current) drug therapy; Z91.89 Other specified personal risk factors, not elsewhere classified; R68.89 Other general symptoms and signs
CPT/HCPCS: 36415; 80048; 80197; 82306; 85025

== ENCOUNTER → 2024-05-07 | Outpatient (CLI) | payer MEDICARE, OTHER, SELFPAY ==
[2024-05-07 10:31] LABS: Hematocrit 39.6 % (37-47); Hemoglobin 12.7 g/dL (12.0-15.0); Mean Corp Hgb Conc 32.1 g/dL (32-36); Mean Corpuscular Hgb 29.7 pg (27.0-32.0); Mean Corpuscular Volume 92.5 fL (81-99); Mean Platelet Vol. 10.4 fl (6.2-12.0); Platelet Count 280 K/mm3 (150-450); RBC Distribution Width SD 43.6 fl (35.1-43.9); Red Blood Count 4.28 M/mm3 (4.2-5.4); White Blood Count 8.9 K/mm3 (4.4-11.0)
[2024-05-07 10:53] LABS: PTHIN 93.4 pg/mL (18.4-80.1)
[2024-05-07 11:16] LABS: ALB/GLOB Ratio 1.1 RATIO (0.9-2.4); AST(SGOT) 11 U/L (15-37); Alanine Aminotransfer ALT/SGPT 23 U/L (13-56); Albumin, Serum 3.4 g/dL (3.2-5.0); Alkaline Phosphatase 98 U/L (45-117); Anion Gap 6 (5-15); BUN 32 mg/dL (7-18); BUN/Creat Ratio 22.9 RATIO (10-20); Calcium,Total 11.1 mg/dL (8.5-10.1); Chloride 113 mmol/L (98-107); EST Glomerular Filtration Rate 41 mL/min (>60); Est Glom Filt Rate - Afr Amer 49 mL/min (>60); Glucose 116 mg/dL (74-106); Magnesium 1.9 mg/dL (1.6-2.6); Phosphorus 4.3 mg/dL (2.5-4.9); Potassium 4.3 mmol/L (3.5-5.1); Protein, Total 6.4 g/dL (6.4-8.2); Sodium Level 141 mmol/L (136-145); Uric Acid 5.9 mg/dL (2.6-6.0)
[2024-05-07 11:30] LABS: Microalbumin,Random Urine < 5.0 mg/L (NO RANGE EST.); Protein, Urine (Random) 6.9 mg/dL (<11.9); Protein:Creat Ratio 151 mg/g CRE (0-200)
[2024-05-09 08:13] LABS: Tacrolimus (FK506) 6.8 ng/mL (2.0-20.0)
[2024-05-09 14:09] LABS: Vitamin D 1,25-Dihydroxy 44.8 pg/mL (24.8-81.5)
[2024-05-12 07:09] LABS: HPV APTIMA, High Risk Negative (Negative)
== END | disposition home or self-care (01) ==
LOC: MTLAB 07:50
PROVIDERS: Nurse Practitioner Women's Health; PCP Family Medicine; Referring Provider Internal Medicine Nephrology; Visit Provider Internal Medicine Nephrology
DX: Z12.4 Encounter for screening for malignant neoplasm of cervix (principal); Z94.0 Kidney transplant status
CPT/HCPCS: 36415; 80053; 80197; 82043; 82570; 82652; 83735; 83970; 84100; 84156; 84550; 85027; 87624; 88175; G0145

== ENCOUNTER → 2024-05-18 | Outpatient (CLI) | payer MEDICARE, OTHER, SELFPAY ==
--- NOTE | 2024-05-18 07:30 | BI_ITS ---
MAMMOGRAPHY - BILATERAL SCREENING REASON FOR EXAM: Female, 63 years old. Routine annual screening examination. PERTINENT HISTORY: Non-contributory. TECHNIQUE: Digital bilateral breast ha (3D mammographic acquisition) in the CC and MLO projections. 2-D mediolateral oblique (MLO) and craniocaudad (CC) views of both breasts were obtained. CAD: Full Field Digital Mammography with Computer Added Detection was performed. COMPARISON: Comparison is made with prior study dated May 16, 2023 and May 13, 2022. FINDINGS: Breast Composition: The breasts are almost entirely fatty. There are no dominant masses or suspicious calcifications. Stable bilateral secretory calcifications. Stable 9 mm well-defined nodule in the anterior upper outer aspect of the left breast suggestive of a small lymph node. Stable prominent venous markings in the breasts. No other significant abnormalities are identified. There has been no significant change since the prior study. BI/SCRN MAMM (CAD)W/HA BILAT IMPRESSION: Stable bilateral screening mammogram. Yearly follow-up mammogram recommended. (A) ASSESSMENT CATEGORY: BIRADS Category 2: Benign. A letter regarding these results will be sent to the patient by the facility within 30 days. Approximately 10% of breast cancers are not detected by mammography. A normal mammogram should not delay biopsy of a clinically suspicious abnormality. [id number] Electronically Signed: Jourdan Marquis MD at 8:39 EST ,
== END | disposition home or self-care (01) ==
LOC: OPBI 07:28
PROVIDERS: PCP Family Medicine; Referring Provider Nurse Practitioner Women's Health; Visit Provider Nurse Practitioner Women's Health
DX: Z12.31 Encounter for screening mammogram for malignant neoplasm of breast (principal)
CPT/HCPCS: 77063; 77067

== ENCOUNTER 2024-06-04 07:18 | Outpatient (RCR) | payer MEDICARE, OTHER, SELFPAY ==
[2024-04-05 21:07] VITALS: BMI 27.0
[2024-06-04 10:17] LABS: Hematocrit 40.4 % (37-47); Mean Corp Hgb Conc 32.2 g/dL (32-36); Mean Corpuscular Volume 93.3 fL (81-99); Mean Platelet Vol. 10.7 fl (6.2-12.0); Platelet Count 289 K/mm3 (150-450); RBC Distribution Width SD 44.1 fl (35.1-43.9); Red Blood Count 4.33 M/mm3 (4.2-5.4); White Blood Count 8.1 K/mm3 (4.4-11.0)
[2024-06-04 10:25] LABS: Anion Gap 2 (5-15); BUN 25 mg/dL (7-18); BUN/Creat Ratio 18.9 RATIO (10-20); Chloride 116 mmol/L (98-107); Creatinine, Serum 1.32 mg/dL (0.55-1.02); EST Glomerular Filtration Rate 43 mL/min (>60); Est Glom Filt Rate - Afr Amer 53 mL/min (>60); Glucose 115 mg/dL (74-106); Magnesium 1.7 mg/dL (1.6-2.6); Phosphorus 1.6 mg/dL (2.5-4.9); Potassium 4.3 mmol/L (3.5-5.1); Sodium Level 141 mmol/L (136-145)
[2024-06-07 05:06] LABS: Tacrolimus (FK506) 7.4 ng/mL (2.0-20.0)
== END 2024-06-04 18:00 | disposition home or self-care (01) ==
LOC: MTLAB 07:18
PROVIDERS: PCP Family Medicine
DX: Z94.0 Kidney transplant status (principal); I12.9 Hypertensive chronic kidney disease with stage 1 through stage 4 chronic kidney disease, or unspecified chronic kidney disease; N18.31 Chronic kidney disease, stage 3a; E83.9 Disorder of mineral metabolism, unspecified; M89.9 Disorder of bone, unspecified; D63.1 Anemia in chronic kidney disease; R79.9 Abnormal finding of blood chemistry, unspecified; Z79.899 Other long term (current) drug therapy
CPT/HCPCS: 36415; 80048; 80197; 83735; 84100; 85027

== ENCOUNTER → 2024-09-20 | Outpatient (CLI) | payer MEDICARE, OTHER, SELFPAY ==
[2024-09-20 10:19] LABS: Absolute Lymphocyte Count 0.87 X10^3/uL (0.83-4.51); Absolute Neutrophil Count 5.1 X10^3/uL (2.0-7.7); Basophil# 0.08 X10^3/uL; Basophil% 1.1 % (0-1); Eosinophil# 0.37 X10^3/uL; Eosinophils% 5.2 % (0-5); Hematocrit 37.1 % (37-47); Hemoglobin 12.2 g/dL (12.0-15.0); Lymphocyte # 0.87 X10^3/ul (0.83-4.51); Lymphocyte % 12.2 % (19-41); Mean Corp Hgb Conc 32.9 g/dL (32-36); Mean Corpuscular Hgb 30.4 pg (27.0-32.0); Mean Corpuscular Volume 92.5 fL (81-99); Mean Platelet Vol. 10.6 fl (6.2-12.0); Monocyte# 0.68 X10^3/uL; Monocyte% 9.5 % (0-10); NRBC Flagged by Analyzer 0 % (0-5); Neutrophil # 5.11 X10^3/uL (2.7-7.7); Neutrophil % 71.6 % (47-70); Platelet Count 289 K/mm3 (150-450); RBC Distribution Width CV 12.9 % (11.6-14.6); RBC Distribution Width SD 43.7 fl (35.1-43.9); Red Blood Count 4.01 M/mm3 (4.2-5.4); White Blood Count 7.1 K/mm3 (4.4-11.0)
[2024-09-20 10:50] LABS: ALB/GLOB Ratio 1.5 RATIO (0.9-2.4); AST(SGOT) 18 U/L (<=31); Alanine Aminotransfer ALT/SGPT 16 U/L (<=34); Albumin, Serum 3.7 g/dL (3.4-4.8); Alkaline Phosphatase 99 U/L (35-104); Anion Gap 11 (5-15); BUN 26 mg/dL (4-19); BUN/Creat Ratio 17.1 RATIO (10-20); Calcium 9.9 mg/dL (7.6-11.0); Calcium,Total 9.9 mg/dL (7.6-11.0); Chloride 109 mmol/L (98-108); Cholesterol 140 mg/dL (<=200); EST Glomerular Filtration Rate 39 (>60); Globulin 2.4 g/dL (2.2-4.2); Glucose 110 mg/dL (70-99); High Density Lipoprotein 60 mg/dL; Low Density Lipoprotein Calc. 48 mg/dL; Magnesium 1.9 mg/dL (1.5-2.2); Phosphorus 1.8 mg/dL (2.7-4.5); Potassium 4.3 mmol/L (3.3-5.1); Protein, Total 6.1 g/dL (5.9-8.4); Sodium Level 140 mmol/L (133-145); Total Bilirubin 0.32 mg/dL (0.00-1.30); Triglycerides 158 mg/dL; Very Low Density Lipoprotein 32 mg/dL (5-40); cholesterol:hdl ratio screen 2.33
[2024-09-20 10:53] LABS: Protein, Urine (Random) 6.6 mg/dL (0.0-12.0); Protein:Creat Ratio 87 mg/g CRE (0-200)
[2024-09-23 00:07] LABS: Tacrolimus (FK506) 5.3 ng/mL (5.0-20.0)
== END | disposition home or self-care (01) ==
PROVIDERS: PCP Family Medicine
DX: Z94.0 Kidney transplant status (principal); Z48.298 Encounter for aftercare following other organ transplant; D84.9 Immunodeficiency, unspecified; Z79.899 Other long term (current) drug therapy; R68.89 Other general symptoms and signs; R79.9 Abnormal finding of blood chemistry, unspecified; Z91.89 Other specified personal risk factors, not elsewhere classified
CPT/HCPCS: 36415; 80053; 80061; 80197; 82310; 82570; 83735; 84100; 84156; 85025

== ENCOUNTER → 2024-10-03 | Outpatient (CLI) | payer MEDICARE, OTHER, SELFPAY ==
[2024-10-03 10:37] LABS: Hematocrit 38.8 % (37-47); Hemoglobin 12.8 g/dL (12.0-15.0); Mean Corpuscular Hgb 30.3 pg (27.0-32.0); Mean Corpuscular Volume 91.9 fL (81-99); Mean Platelet Vol. 10.7 fl (6.2-12.0); Platelet Count 279 K/mm3 (150-450); RBC Distribution Width CV 12.8 % (11.6-14.6); RBC Distribution Width SD 42.9 fl (35.1-43.9); Red Blood Count 4.22 M/mm3 (4.2-5.4); White Blood Count 8.8 K/mm3 (4.4-11.0)
[2024-10-03 11:37] LABS: Microalbumin,Random Urine < 12.0 mg/L (NO RANGE EST.); Microalbumin:Creatinine Ratio UNABLE TO CALCULATE mg/g CRE; Protein, Urine (Random) 13.1 mg/dL (0.0-12.0); Protein:Creat Ratio 100 mg/g CRE (0-200)
[2024-10-03 11:39] LABS: PTHIN 201 pg/mL (11-61)
[2024-10-03 11:59] LABS: ALB/GLOB Ratio 1.7 RATIO (0.9-2.4); AST(SGOT) 18 U/L (<=31); Alanine Aminotransfer ALT/SGPT 21 U/L (<=34); Alkaline Phosphatase 91 U/L (35-104); Anion Gap 12 (5-15); BUN 28 mg/dL (4-19); BUN/Creat Ratio 16.8 RATIO (10-20); Calcium,Total 10.5 mg/dL (7.6-11.0); Carbon Dioxide 21.3 mmol/L (21.0-32.0); Chloride 109 mmol/L (98-108); Creatinine, Serum 1.69 mg/dL (0.70-1.20); EST Glomerular Filtration Rate 34 (>60); Globulin 2.3 g/dL (2.2-4.2); Glucose 114 mg/dL (70-99); Potassium 4.6 mmol/L (3.3-5.1); Protein, Total 6.3 g/dL (5.9-8.4); Sodium Level 141 mmol/L (133-145); Total Bilirubin 0.42 mg/dL (0.00-1.30)
[2024-10-03 12:38] LABS: Magnesium 1.8 mg/dL (1.5-2.2); Phosphorus 2.9 mg/dL (2.7-4.5)
[2024-10-03 13:11] LABS: Uric Acid 6.3 mg/dL (2.6-6.0); Vitamin D,25 Hydroxy 55.7 ng/mL (30-100)
[2024-10-06 13:07] LABS: Tacrolimus (FK506) 8.8 ng/mL (5.0-20.0)
== END | disposition home or self-care (01) ==
LOC: MTLAB 07:02
PROVIDERS: PCP Family Medicine; Referring Provider Internal Medicine Nephrology; Visit Provider Internal Medicine Nephrology
DX: Z94.0 Kidney transplant status (principal); D64.9 Anemia, unspecified; M10.9 Gout, unspecified; E55.9 Vitamin D deficiency, unspecified
CPT/HCPCS: 36415; 80053; 80197; 82043; 82306; 82570; 83735; 83970; 84100; 84156; 84550; 85027

== ENCOUNTER → 2024-10-11 | Outpatient (CLI) | payer MEDICARE, OTHER, SELFPAY ==
[2024-10-11 11:33] LABS: Albumin, Serum 4.1 g/dL (3.4-4.8); Anion Gap 10 (5-15); BUN 30 mg/dL (4-19); BUN/Creat Ratio 16.9 RATIO (10-20); Calcium,Total 10.9 mg/dL (7.6-11.0); Carbon Dioxide 22.9 mmol/L (21.0-32.0); Chloride 106 mmol/L (98-108); Creatinine, Serum 1.77 mg/dL (0.70-1.20); EST Glomerular Filtration Rate 32 (>60); Glucose 110 mg/dL (70-99); Phosphorus 2.2 mg/dL (2.7-4.5); Potassium 4.9 mmol/L (3.3-5.1); Sodium Level 139 mmol/L (133-145)
[2024-10-15 08:07] LABS: Tacrolimus (FK506) 8.9 ng/mL (5.0-20.0)
== END | disposition home or self-care (01) ==
LOC: MTLAB 07:11
PROVIDERS: PCP Family Medicine; Referring Provider Internal Medicine Nephrology; Visit Provider Internal Medicine Nephrology
DX: Z94.0 Kidney transplant status (principal)
CPT/HCPCS: 36415; 80069; 80197

== ENCOUNTER → 2024-10-16 | Outpatient (CLI) | payer MEDICARE, OTHER, SELFPAY ==
[2024-10-16 09:59] LABS: Hematocrit 40.2 % (37-47); Mean Corp Hgb Conc 32.3 g/dL (32-36); Mean Corpuscular Hgb 29.8 pg (27.0-32.0); Mean Corpuscular Volume 92.2 fL (81-99); Mean Platelet Vol. 10.4 fl (6.2-12.0); Platelet Count 289 K/mm3 (150-450); RBC Distribution Width CV 12.7 % (11.6-14.6); RBC Distribution Width SD 42.7 fl (35.1-43.9); Red Blood Count 4.36 M/mm3 (4.2-5.4); White Blood Count 6.6 K/mm3 (4.4-11.0)
[2024-10-16 10:33] LABS: Protein, Urine (Random) 11.1 mg/dL (0.0-12.0); Protein:Creat Ratio 65 mg/g CRE (0-200)
[2024-10-16 10:43] LABS: Anion Gap 11 (5-15); BUN 23 mg/dL (4-19); BUN/Creat Ratio 13.8 RATIO (10-20); Calcium,Total 10.9 mg/dL (7.6-11.0); Carbon Dioxide 22.1 mmol/L (21.0-32.0); Chloride 108 mmol/L (98-108); EST Glomerular Filtration Rate 34 (>60); Glucose 117 mg/dL (70-99); Potassium 4.4 mmol/L (3.3-5.1); Sodium Level 141 mmol/L (133-145)
[2024-10-16 15:01] LABS: Phosphorus 2.6 mg/dL (2.7-4.5)
[2024-10-19 18:08] LABS: Tacrolimus (FK506) 8.4 ng/mL (5.0-20.0)
== END | disposition home or self-care (01) ==
PROVIDERS: PCP Family Medicine
DX: N18.6 End stage renal disease (principal); Z94.0 Kidney transplant status; Z79.60 Long term (current) use of unspecified immunomodulators and immunosuppressants; R79.9 Abnormal finding of blood chemistry, unspecified; Z48.298 Encounter for aftercare following other organ transplant; D84.9 Immunodeficiency, unspecified; Z79.899 Other long term (current) drug therapy; R68.89 Other general symptoms and signs
CPT/HCPCS: 36415; 80048; 80197; 82040; 82570; 84100; 84156; 85027

== ENCOUNTER → 2024-10-25 | Outpatient (CLI) | payer MEDICARE, OTHER, SELFPAY ==
[2024-10-25 11:25] LABS: Anion Gap 11 (5-15); BUN 16 mg/dL (4-19); Calcium,Total 9.9 mg/dL (7.6-11.0); Carbon Dioxide 20.2 mmol/L (21.0-32.0); Chloride 106 mmol/L (98-108); Creatinine, Serum 1.48 mg/dL (0.70-1.20); EST Glomerular Filtration Rate 40 (>60); Glucose 109 mg/dL (70-99); Potassium 4.4 mmol/L (3.3-5.1); Sodium Level 137 mmol/L (133-145)
[2024-10-30 14:08] LABS: Tacrolimus (FK506) 4.9 ng/mL (5.0-20.0)
== END | disposition home or self-care (01) ==
LOC: MTLAB 07:08
PROVIDERS: PCP Family Medicine
DX: Z94.0 Kidney transplant status (principal); Z79.60 Long term (current) use of unspecified immunomodulators and immunosuppressants; R79.9 Abnormal finding of blood chemistry, unspecified; Z79.899 Other long term (current) drug therapy; D84.9 Immunodeficiency, unspecified; Z48.298 Encounter for aftercare following other organ transplant; R68.89 Other general symptoms and signs
CPT/HCPCS: 36415; 80048; 80197

== ENCOUNTER 2024-11-17 07:12 | Emergency (ER) | payer MEDICARE, OTHER, SELFPAY ==
[2024-11-17 07:12] VITALS: BP 137/74; PULSE 87; RESP 14; TEMP 36.6; O2SAT 98
[2024-11-17 07:14] VITALS: BMI 41.0
--- NOTE | 2024-11-17 07:30 | RAD_ITS ---
PROCEDURE: CHEST PA AND LATERAL 11/17/2024 REASON FOR EXAM: COUGH, SHORTNESS OF BREATH TECHNIQUE: CHEST PA AND LATERAL COMPARISON: February 17, 2022 FINDINGS: Hardware: Surgical clips centered around the midline in right left of midline in the upper abdomen Heart: Normal size Mediastinum: Normal contour Lungs: Clear Bones: No aggressive bone lesion is appreciated. Lungs are clear. RAD/Chest PA and Lateral IMPRESSION: No acute process. Reading Location: [facility]
--- NOTE | 2024-11-17 07:31 | EKG12_ITS ---
Test Reason : COUGH Blood Pressure : */* mmHG Vent. Rate : 77 BPM Atrial Rate : 77 BPM P-R Int : 142 ms QRS Dur : 76 ms QT Int : 346 ms P-R-T Axes : 57 -7 67 degrees QTcB Int : 391 ms Normal sinus rhythm Inferior infarct , age undetermined Abnormal ECG Confirmed by LAMBERTO YING, DAHLIA ([id number]), editor managing newspaper KIMMY LAMB ([id number]) on 11/20/2024 8:21:52 AM Referred By: Confirmed By: DAHLIA ORANTES MD
--- NOTE | 2024-11-17 07:32 | EX.ED.DYSGE1 ---
HPI History of Present Illness Chief Complaint: Cough Narrative Narrative: 63-year-old female presents with her because of cough, headache, generalized weakness that she has had for 6 days. She states it started more as an upper respiratory infection and sinus problem. She states that she developed a headache 5 days ago on Tuesday which improved. She felt like she was getting more of a chest cold, and she has been coughing up a watery like substance. Yesterday she began feeling feverish. She denies any exacerbating or alleviating factors but states that she does not feel well with multiple somatic complaints. She has developed diarrhea as well. 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) Hemodialysis patient LLQ abdominal pain Sepsis Chronic pain Gout End stage renal failure on dialysis Polycystic kidney disease Home Medications ?Medication ?Instructions ?Recorded ?Last Taken ?Type allopurinol 100 mg tablet 100 mg PO MOWEFR gout 09/01/16 11/16/24 History albuterol sulfate 90 mcg/actuation 2 puff inhalation Q6H PRN Wheezing 12/27/19 Unknown History aerosol inhaler aspirin 81 mg tablet,delayed 81 mg PO DAILY 07/15/20 11/16/24 History release (Adult Aspirin Regimen) magnesium oxide 400 mg PO BID 12/03/21 11/16/24 History tacrolimus 1 mg capsule, 1 mg PO BID 03/25/22 11/17/24 History immediate-release mycophenolate sodium 180 mg 180 mg PO BID 11/09/22 11/17/24 History tablet,delayed release sulfamethoxazole 800 1 tab PO MOWEFR 05/09/23 11/16/24 History mg-trimethoprim 160 mg tablet cholecalciferol (vitamin D3) 1,250 1,250 mcg PO QWEEK 01/28/24 11/10/24 History mcg (50,000 unit) capsule coenzyme Q10 100 mg capsule 100 mg PO DAILY 01/28/24 11/16/24 History atorvastatin 20 mg tablet 20 mg PO QHS #90 TABLETS 04/27/24 11/16/24 Rx dextromethorphan polistirex 30 20 ml PO Q12H PRN cough 11/17/24 11/16/24 History mg/5 mL oral susp ext.release 12hr (Delsym 12 hour) guaifenesin 100 mg/5 mL oral 400 mg PO Q6H PRN cough 11/17/24 11/16/24 History liquid (Mucinex Fast-Max Chest Congestion) oxycodone 5 mg tablet 5 mg PO Q6H PRN low back pain 11/17/24 Unknown History Allergy/AdvReac Type Severity Reaction Status Date / Time cephalexin Allergy Mild rash Verified 11/17/24 07:12 codeine AdvReac Nausea Verified 11/17/24 07:12 Family History Father Aneurysm Kidney disease Surgical History Hx of colonoscopy Hx of surgical procedure Hx of kidney transplant History of knee replacement procedure of left knee (~07/2022) Renal transplant recipient (09/11/20) History of left heart catheterization (06/30/20) History of cholecystectomy History of right nephrectomy History of left nephrectomy History of s/p port placement Social History Smoking Status: Never smoker alcohol intake: never substance use type: does not use caffeine: Yes what type of physical activity do you participate in: none seatbelt use: always do you feel safe at home: Yes additional social history: [id number] ROS ROS ED ROS Narrative Review of systems positive for cough, productive of clear sputum, subjective fever. Mild generalized weakness, feeling lightheaded as well. Positive diarrhea. No exacerbating or alleviating factors. No abdominal pain. No chest pain. EXAM Physical Exam Narrative Exam Narrative: Afebrile. Vital signs noted. Nontoxic-appearing. Cardiovascular examination of is a regular rate and rhythm. Lungs are clear to auscultation bilaterally. Abdomen soft and nontender with normoactive bowel sounds. No guarding or rebound. Neurological examination nonfocal nonlateralizing. HEENT examination does show mild nasal congestion. Mucous membranes are tacky. Airway patent. Const Vital Signs: 11/17/24 07:12 11/17/24 07:21 11/17/24 09:12 Temperature 98 F Temperature Source Temporal Pulse Rate 87 73 Respiratory Rate 14 17 Respiratory Effort Normal Respiratory Depth Normal Respiratory Pattern Normal Blood Pressure 137/74 H 141/71 H Blood Pressure Mean 95 94 Pulse Ox 98 95 Oxygen Delivery Method Room Air Room Air Room Air 11/17/24 11:00 Temperature Temperature Source Pulse Rate 68 Respiratory Rate Respiratory Effort Respiratory Depth Respiratory Pattern Blood Pressure Blood Pressure Mean Pulse Ox 97 Oxygen Delivery Method Room Air MDM MDM MDM Narrative Medical decision making narrative: Differential diagnosis includes but not limited to viral syndrome versus dehydration versus other electrolyte abnormality secondary to her diarrhea. She was bolused normal saline. I discussed with respiratory swabbing, and they agreed, although her symptoms have been ongoing for about 6 days. Regardless of the results, they are outside the window for effectiveness of antivirals. EKG was obtained and interpreted by myself independently as normal sinus rhythm at 77 bpm without ectopy or acute ST changes. No STEMI. I reviewed her laboratory work and she has a leukocytosis of 19.8 with hemoglobin 12.3, hematocrit 38.2, platelet count normal at 277. Electrolyte panel shows BUN of 16 and creatinine 1.49. When compared to prior labs, this is around her baseline for chronic kidney disease and status post kidney transplant. Glucose elevated at 147 with a normal anion gap of 10. Given her leukocytosis, she is not meeting SIRS criteria and she is not tachycardic, but I did obtain blood cultures as well as a lactic acid. Lactic acid is normal at 1.3. I reviewed her respiratory swabs which are negative for COVID, influenza, and RSV. Chest x-ray interpreted by myself independently shows no evidence of an acute process, no consolidation, no pneumonia. I do not feel antibiotics are indicated. She eventually gave a urine sample and this was reviewed as well. It is negative for infection with 0 WBCs and 0-5 squamous epithelial cells. Upon repeat examination, she is states she is feeling slightly improved. She is not meeting any SIRS criteria except for the leukocytosis as she is not tachycardic, and she has a negative lactic acid as well. Through shared decision making, she was offered observation, but declined and states she feels well enough to go home. I reviewed return instructions with the patient and her who is a air brush decorator. She prefers discharge. She will follow-up with her primary care position. Return instructions reviewed. Disposition is discharged home in stable condition. History & Record Review Discussion w/independent historian: Patient Lab Data Attestation: I reviewed the patient's lab results. Labs: Laboratory Results - last 24 hr 11/17/24 11/17/24 11/17/24 07:35 08:18 10:45 WBC 19.8 H RBC 4.12 L Hgb 12.3 Hct 38.2 MCV 92.7 MCH 29.9 MCHC 32.2 RDW Std Deviation 44.8 H RDW Coeff of Radha 13.1 Plt Count 277 MPV 9.8 Immature Gran % (Auto) 0.700 Neut % (Auto) 87.4 H Lymph % (Auto) 3.7 L Newton % (Auto) 7.6 Eos % (Auto) 0.2 Baso % (Auto) 0.4 Absolute Neuts (auto) 17.3 H Absolute Lymphs (auto) 0.73 L Nucleated RBC % 0 Sodium 138 Potassium 4.5 Chloride 106 Carbon Dioxide 21.4 Anion Gap 10 BUN 16 Creatinine 1.49 H Estim Creat Clear Calc 40.92 L Est GFR (MDRD) Non-Af 40 L BUN/Creatinine Ratio 10.7 Glucose 147 H Lactic Acid 1.3 Calcium 9.6 Urine Color Yellow Urine Clarity Sl. Cloudy Urine pH 8.0 Ur Specific Pillager 1.015 Urine Protein 15 H Urine Glucose (UA) Normal Urine Ketones Negative Urine Occult Blood Negative Urine Nitrite Negative Urine Bilirubin Negative Urine Urobilinogen Normal Ur Leukocyte Esterase 25 H Urine RBC 0 SEEN Urine WBC 0 SEEN Ur Squamous Epith Cells 0-5 SEEN Amorphous Sediment 1+ Urine Bacteria 0 SEEN Urine Mucus 0 SEEN Radiography Diagnostic Testing: Clinical Impression(s) from Imaging Studies Chest X-Ray 11/17/24 07:30 IMPRESSION: No acute process. Reading [facility] Discharge Plan Triage Chief Complaint: Cough ED Provider: Alfonso Clement Dx/Rx/DC Orders Clinical Impression: Leukocytosis, Upper respiratory infection Instructions: ED URI, Viral, No Abx (Adult) Prescriptions: No Action albuterol sulfate 90 mcg/actuation HFA aerosol inhaler 2 puff INHALATION Q6H PRN (Reason: Wheezing) tacrolimus 1 mg capsule 1 mg PO BID Patient Comments: 1 capsules in the AM, 1 at HS magnesium oxide 400 mg magnesium capsule 400 mg PO BID mycophenolate sodium 180 mg tablet,delayed release (DR/EC) 180 mg PO BID cholecalciferol (vitamin D3) 1,250 mcg (50,000 unit) capsule 1,250 mcg PO QWEEK Patient Comments: PT TAKES ON SUNDAYS coenzyme Q10 100 mg capsule 100 mg PO DAILY allopurinol 100 MG tablet 100 mg PO MOWEFR sulfamethoxazole-trimethoprim 800-160 mg tablet 1 tab PO MOWEFR Patient Comments: TAKE 1 TABLET BY MOUTH THREE TIMES A WEEK. oxycodone 5 mg tablet 5 mg PO Q6H PRN (Reason: low back pain) guaifenesin [Mucinex Fast-Max Chest-Congest] 100 mg/5 mL liquid 400 mg PO Q6H PRN (Reason: cough) dextromethorphan polistirex [Delsym 12 hour] 30 mg/5 mL suspension,extended rel 12 hr 20 ml PO Q12H PRN (Reason: cough) aspirin [Adult Aspirin Regimen] 81 mg tablet,delayed release (DR/EC) 81 mg PO DAILY atorvastatin 20 mg tablet 20 mg PO QHS Qty: 90 3RF Primary Care Provider: Raphael Russell Referrals: Raphael Russell MD [Primary Care Provider] - 3-5 Days Activity Restrictions/Additional Instructions: Return to the emergency department with fever, difficulty breathing, increased malaise and fatigue, new or worsening symptoms. Print Language: Turkmen Disposition Disposition: Home, Self Care
[2024-11-17 07:45] LABS: Absolute Lymphocyte Count 0.73 X10^3/uL (0.83-4.51); Absolute Neutrophil Count 17.3 X10^3/uL (2.0-7.7); Basophil# 0.08 X10^3/uL; Basophil% 0.4 % (0-1); Eosinophil# 0.03 X10^3/uL; Eosinophils% 0.2 % (0-5); Hematocrit 38.2 % (37-47); Hemoglobin 12.3 g/dL (12.0-15.0); Lymphocyte # 0.73 X10^3/ul (0.83-4.51); Lymphocyte % 3.7 % (19-41); Mean Corp Hgb Conc 32.2 g/dL (32-36); Mean Corpuscular Hgb 29.9 pg (27.0-32.0); Mean Corpuscular Volume 92.7 fL (81-99); Mean Platelet Vol. 9.8 fl (6.2-12.0); Monocyte% 7.6 % (0-10); NRBC Flagged by Analyzer 0 % (0-5); Neutrophil # 17.29 X10^3/uL (2.7-7.7); Neutrophil % 87.4 % (47-70); Platelet Count 277 K/mm3 (150-450); RBC Distribution Width CV 13.1 % (11.6-14.6); RBC Distribution Width SD 44.8 fl (35.1-43.9); Red Blood Count 4.12 M/mm3 (4.2-5.4); White Blood Count 19.8 K/mm3 (4.4-11.0)
--- OUTSIDE RECORDS SUMMARY | 2024-11-17 07:51 | XMS RPT_ITS | CCD ---
Author Organization [facility] Care Team Providers Care Rescue Worker Name Role Phone Joselyn Foreman Unavailable Unavailable Unavailable Unavailable Unavailable Unavailable Unavailable Unavailable Unavailable Unavailable Unavailable Unavailable Unavailable Unavailable Yana Torres Unavailable Unavailable FRANDY CAMPO Attending Unavailab CARSON Street Primary Care Unavailable Carson Russell Primary Care Provider Carson Russell Unavailable Nelson Bass Unavailable SYSTEM, PROVIDER NOT IN Referring Unavaila ble SYSTEM, PROVIDER NOT IN Attending Unavaila ble CARSON RUSSELL Primary Care Unavailable Carson Russell Unavailable Unavailable Patrick Ha Unavailable Unavailable Maggie Mayorga Unavailable Unavailable Mayra [place] Unavailable Unavailable Carson Russell MD Primary Care Provider Junaid Lau MD Unavailable Krzysztof Wu MD Unavailable [phone] Dr. Carson Russell Primary Care Provider Dr. Carson Russell Referring Provider Martin CANNON, SONIDO Marx Attending Provider Carson Russell MD Primary Care Provider Junaid Lau MD Unavailable Krzysztof Wu MD Unavailable Dr. Carson Russell Primary Care Provider Dr. Chinedu Polo Attending Provider Dr. Diego Bowman Referring Provider Dr. Carson Russell Referring Provider CONCEPCION Ramos Attending Provider PHYSICIAN, PATIENT UNSURE Primary Care Physician Unavailable Dr. Carson Russell Primary Care Provider Dr. Chinedu Polo Attending Provider Dr. Diego Bowman Referring Provider [phone] Dr. Carson Russell Referring Provider CONCEPCION Ramos Attending Provider DIEGO BOWMAN MD Attending Unavailable PHYSICIAN, PATIENT UNSURE Primary Care Dr. Carson Puente Primary Care Provider [phone] Carson Russell Primary Care Provider Dr. Carson Russell Referring Provider CONCEPCION Jarquin Attending Provider Dr. Carson Russell Primary Care Provider [phone] Carson Russell Referring Provider CONCEPCION Jarquin Attending Provider Dr. Carson Russell Primary Care Provider [phone] Carson Russell Referring Provider Dr. Zay Ortiz Attending Provider Dr. Chinedu Polo Attending Provider Dr. Carson Russell Referring Provider [phone] Baudilio BROADCAST SUPERVISOR, BROADCAST SUPERVISOR-C Debra Attending Provider [phone] Dr. Carson Russell Referring Provider Baudilio BROADCAST SUPERVISOR, BROADCAST SUPERVISOR-C Debra Attending Provider [phone] Drew YING, Carson Cheek Primary Care Provider [phone] Judi YING, Junaid Unavailable [phone] Bryce YING, Krzysztof Unavailable Dr. Carson Russell MD Primary Care Provider KESHIA PRESTON Attending Provider KESHIA PRESTON Referring Provider Bryce YING, Dr. Blankenship Attending Provide r Bryce YING, Dr. Blankenship Referring Provide r TARA MARCIAL Attending Provider [phone] TARA MARCIAL Referring Provider [phone] Bryce YING, Dr. Blankenship Other Provider SELF, SELF Referring Unavailable PESTARA MULLIGAN E Attending Unavailable RUSSELL, CARSON A Primary Care Unavailable TARA MARCIAL Attending Provider TARA MARCIAL Referring Provider STARLA PHILLIPS Attending Unavailable STARLA PHILLIPS Referring Unavailable Russell, Carson Primary Care Unavailable Suise, Bunny Consulting Unavailable Tanphaichitr, Natthavat Consulting Unavaila STARLA Howard Referring Unavailable Russell, Carson Primary Care Unavailable STARLA PHILLIPS Attending Unavailable Susie, Bunny Consulting Unavailable Tanphaichitr, Natthavat Consulting Unavaila STARLA Howard Referring Unavailable Russell, Carson Primary Care Unavailable STARLA PHILLIPS Attending Unavailable Susie, Bunny Consulting Unavailable Tanphaichitr, Natthavat Consulting Unavaila ble Russell, Carson Referring Unavailable Russell, Carson Primary Care Unavailable Irma Mac Attending Unavailable Baudilio BROADCAST SUPERVISOR, Debra Attending Unavailable Russell, Carson Primary Care Unavailable Russell, Carson Referring Unavailable Russell, Carson Primary Care Unavailable Louisa Pope Referring Unavailable Louisa Pope Attending Unavailable Russell, Carson Primary Care Unavailable Tanphaichitr, Natthavat Referring Unavaila ble Tanphaichitr, Natthavat Attending Unavaila STARLA Howard Attending Unavailable STARLA PHILLIPS Referring Unavailable Russell, Carson Primary Care Unavailable Susie, Bunny Consulting Unavailable Tanphaichitr, Natthavat Consulting Unavaila ble Baudilio BROADCAST SUPERVISOR, Debra Attending Unavailable Russell, Carson Primary Care Unavailable Baudilio BROADCAST SUPERVISOR, Debra Referring Unavailable Russell, Carson Primary Care Unavailable Tanphaichitr, Natthavat Referring Unavaila ble Tanphaichitr, Natthavat Attending Unavaila STARLA Howard Attending Unavailable STARLA PHILLIPS Referring Unavailable Russell, Carson Primary Care Unavailable Russell, Carson Primary Care Unavailable Tanphaichitr, Natthavat Referring Unavaila ble Tanphaichitr, Natthavat Attending Unavaila STARLA Howard Attending Unavailable STARLA PHILLIPS Referring Unavailable Russell, Carson Primary Care Unavailable Tanphaichitr, Natthavat Consulting Unavaila STARLA Howard Attending Unavailable STARLA PHILLIPS Referring Unavailable Russell, Carson Primary Care Unavailable Russell, Carson Primary Care Unavailable Tanphaichitr, Natthavat Referring Unavaila ble Tanphaichitr, Natthavat Attending Unavaila ble Allergies Allergy Classification Reported Allergen(s) Allergy Type Date of Onset Reaction(s) Facility (20 sources) Codeine; Translations: [codeine] Drug Allergy 0 Nausea, Vomiting, Nausea and Vomiting, Feeling nervous (finding), Nausea (finding) [facility] Work Phone: (20 sources) Penicillins; Translations: [Penicillins] Allergy to drug (finding) 0 Rash [facility] Work Phone: (20 sources) Cephalexin; Translations: [cephalexin] Drug Allergy 0 Itching, Nausea Only, Weal (disorder) [facility] (10 sources) Penicillins Allergy to substance 2 [facility] (1 source) Penicillin; Translations: [penicillin] Drug Allergy [facility] Medications Current Medications Medication Drug Class(es) Dates Sig (Normalized) Sig (Original) acetaminophen 500 mg oral tablet (20 sources) Start: 11-09-2022 take 500 mg by mouth once Acetaminophen Active 500 MG PO ONCE November 08, 2022 11:00pm Start: 09-16-2020 take 2 tablets by mo [facility] every six hours as needed acetaminophen 325 MG tablet Take 2 tablets by mouth every 6 hours as needed for Mild Pain or Moderate Pain. 120 tablet 09/16/2020 11:52 AM EDT 09/16/2020 Active Start: 08-03-2018 End: 12-27-2019 Acetaminophen 500 MG tablet Discontinued 1000 mg PO NEEDED as needed for Pain August 03, 2018 1:00am December 27, 2019 2:12pm Start: 08-03-2018 End: 12-27-2019 Acetaminophen Discontinued 1 000 MG PO NEEDED August 03, 2018 1:00am December 27, 2019 2:12pm [id number] 200 actuat albuterol 0.09 mg/actuat metered dose inhaler (20 sources) beta2-Adrenergic Agonist Start: 12-27-2019 Albut genesis Sulfate 90 mcg/actuation HFA aerosol inhaler Active 2 NMA INHALATION EVERY 6 HOURS as needed for Wheezing December 27, 2019 12:00am Start: 12-27-2019 take 1 puff(s) by in halation every six hours Albuterol Sulfate Active 2 PUFF INHALATION EVERY 6 HOURS December 27, 2019 12:00am Start: 04-26-2014 take 1-2 puff(s) by inhalation every four to six hours as needed ProAir HFA 108 (90 Base) MCG/ACT Inhalation Aerosol Solution INHALE 1 TO 2 PUFFS EVERY 4 TO 6 HOURS NEEDED. Quantity: 1 Refills: 5 Start : 26-Apr-2014 Active 8.5 GM Inhaler albuterol 108 (9 0 Base) MCG/ACT Aero Soln inhaler Inhale 1 puff as needed. Active allopurinol 100 mg oral tablet (20 sources) Xanthine Oxidase Inhibitor Start: 07-17-2015 Allopurinol 100 MG tablet Active 100 mg PO MOWEFR September 01, 2016 12:00am take 1 tablet by mouth once at d inner allopurinol 100 MG tablet Take 1 tablet by mouth every Tuesday, Tuesday, Tuesday dinner. Active aspirin 81 mg delayed release oral tablet (20 sources) Platelet Aggregation Inhibitor, Nonsteroidal Anti-inflammatory Drug Start: 07-15-2020 take 1 tablet by mouth once daily Aspirin (Adult Aspirin Regimen) 81 mg tablet,delayed release (DR/EC) Active 81 mg PO DAILY July 15, 2020 1:00am aspirin 81 MG Ch ew Tab chewable tablet Chew 1 tablet daily. Active cholecalciferol 1.25 mg oral capsule (4 sources) Vitamin D Start: 01-28-2024 take 1 capsule by mouth every week Cholecalciferol (Vitamin D3) 1,250 mcg (50,000 unit) capsule Active 1250 ug PO EVERY WEEK January 28, 2024 12:00am magnesium oxide 400 mg oral capsule (20 sources) Start: 12-03-2021 take 1 capsule by mouth twice daily Magnesium Oxide 400 mg magnesium capsule Active 400 mg PO TWICE A DAY December 03, 2021 12:00am Start: 09-15-2021 take 1 tablet by nir th twice daily magnesium oxide 400 (241.3 Mg) MG tablet Take 1 tablet by mouth 2 times daily. 60 tablet 3 09/15/2021 Active mycophenolic acid 360 mg delayed release oral tablet (20 sources) Antimetabolite Immunosuppressant Start: 08-24-2024 take 1 tablet by mouth every twelve hours Mycophenolate sodium (MYFORTIC) [address] tablet Indications: Kidney replaced by transplant , High risk medication use TAKE 1 TABLET BY MOUTH EVERY 12 HOURS 60 tablet 11 08/24/2024 Active Start: 08-17-2023 take 1 tablet by nir th every twelve hours Mycophenolate sodium (MYFORTIC) [address] tablet Indications: Kidney replaced by transplant , High risk medication use TAKE 1 TABLET BY MOUTH EVERY 12 HOURS 60 tablet 11 08/17/2023 Active Start: 11-09-2022 take 1 tablet by nir th twice daily Mycophenolate Sodium 180 mg tablet,delayed release (DR/EC) Active 180 mg PO TWICE A DAY November 09, 2022 2:09pm Start: 11-09-2022 End: 11-09-2022 take 2 tablets by mouth twice daily Mycophenolate Sodium 180 mg tablet,delayed release (DR/EC) Discontinued 360 mg PO TWICE A DAY November 09, 2022 12:00am November 09, 2022 2:09pm Start: 11-09-2022 End: 11-09-2022 take 360 mg by mouth twice daily Mycophenolate Sodium Discontinued 360 MG PO TWICE A DAY November 09, 2022 12:00am November 09, 2022 2:09pm Start: 03-25-2022 End: 11-09-2022 Mycophenolate Sodium Discont inued 1080 MG PO .COMPLEX March 25, 2022 8:46am November 09, 2022 2:04pm 2 in the AM and 2 in the PM Start: 01-29-2022 End: 01-29-2023 take 2 tablets by mouth every twelve hours mycophenolate sodium (MYFORTIC) [address] Indications: Kidney replaced by transplant , High risk medication use , Essential hypertension , Chronic kidney disease-mineral and bone disorder , Anemia due to stage 3a chronic kidney disease , S/P kidney transplant Take 2 tablets by mouth every 12 hours. 120 tablet 11 01/29/2022 01/29/2023 Active Start: 01-15-2021 End: 11-09-2022 take 2 tablets by mouth in the morning, then take 2 tablets by mouth in the evening Mycophenolate Sodium 360 mg tablet,delayed release (DR/EC) Discontinued 1080 mg PO .COMPLEX March 25, 2022 8:46am November 09, 2022 2:04pm 2 in the AM and 2 in the PM Start: 01-15-2021 End: 03-25-2022 take 720 mg by mouth twice daily Mycophenolate Sodium Discontinued 720 MG PO TWICE A DAY January 15, 2021 12:00am March 25, 2022 8:49am Start: 10-28-2020 End: 09-15-2021 take 2 tablets by mouth every twelve hours mycophenolate sodium (generic) [address] tablet DR Indications: Kidney replaced by transplant , High risk medication use , Essential hypertension , Chronic kidney disease-mineral and bone disorder , Anemia due to stage 3a chronic kidney disease , S/P kidney transplant Take 2 tablets by mouth every 12 hours. 120 tablet 11 10/28/2020 09/15/2021 Discontinued (Reorder) Start: 09-26-2020 mycophenolic a gee 360 mg oral delayed release tablet Dose : 720 mg = 2 tab(s), Oral, BID, on an empty stomach 1 hour before or 2 hours after eating, # 120 tab(s), 0 Refill(s) Start Date: 09/26/20 Status: Ordered ondansetron 4 mg disintegrating oral tablet (20 sources) Serotonin-3 Receptor Antagonist Start: 09-26-2020 ondansetron 4 mg ora l tablet, disintegrating Dose : 4 mg = 1 tab(s), q4hr, 0 Refill(s) Start Date: 09/26/20 Status: Ordered Start: 09-01-2016 End: 01-28-2024 take 1 tablet by mouth every six hours as needed for nausea Ondansetron Hcl 4 MG tablet Discontinued 4 mg PO EVERY 6 HOURS NEEDED as needed for Nausea March 27, 2020 11:33am January 28, 2024 9:58am Start: 03-25-2016 take 1 tablet by nir th every four hours as needed Ondansetron 4 MG Oral Tablet Disintegrating allow ONE tablet TO dissolve in MOUTH EVERY 4 HOURS NEEDED FOR naus Quantity: 20 Refills: 0 Start : 25-Mar-2016 Active take 1 tablet by nir th every eight hours as needed ondansetron 4 MG tablet Take 1 tablet by mouth every 8 hours as needed for Nausea. Active sulfamethoxazole 800 mg / trimethoprim 160 mg oral tablet (20 sources) Dihydrofolate Reductase Inhibitor Antibacterial, Sulfonamide Antimicrobial Start: 01-02-2024 End: 01-01-2025 take 1 tablet by mouth three times weekly Sulfamethoxazole-trimethoprim 800-160 MG per tablet Indications: Kidney replaced by transplant Take 1 tablet by mouth three times a week. 36 tablet 3 01/02/2024 01/01/2025 Active Start: 05-09-2023 Sulfamethoxazo le-Trimethoprim 800-160 mg tablet Active 1 {tbl} PO MOWEFR May 09, 2023 1:00am Start: 05-09-2023 Sulfamethoxazo le-Trimethoprim Active 1 TABLET PO MOWEFR May 09, 2023 1:00am Start: 11-09-2022 End: 05-03-2023 Sulfamethoxazole-Trimethopri m 800-160 mg tablet Discontinued 1 {tbl} PO MOWEFR November 09, 2022 12:00am May 03, 2023 12:24pm Start: 11-09-2022 End: 05-03-2023 Sulfamethoxazole-Trimethopri m Discontinued 1 TABLET PO MOWEFR November 09, 2022 12:00am May 03, 2023 12:24pm Start: 11-13-2021 End: 09-29-2023 take 1 tablet by mouth three times weekly Sulfamethoxazole-Trimethoprim (Bactrim D s) 800-160 mg tablet Discontinued 1 {tbl} PO .COMPLEX March 25, 2022 8:46am November 08, 2022 10:26am 1 TAB orally 3 times a week; Start: 10-28-2020 End: 03-25-2022 Sulfamethoxazole-Trimethopri m (Bactrim Ds) 800-160 mg tablet Discontinued 1 {tbl} PO DAILY January 15, 2021 12:00am March 25, 2022 8:49am Start: 09-26-2020 sulfamethoxazo le-trimethoprim 800 mg-160 mg oral tablet Dose = 1 tab(s), Oral, Mon/Tue/Fri, 0 Refill(s) Start Date: 09/26/20 Status: Ordered tacrolimus 1 mg oral capsule (20 sources) Calcineurin Inhibitor Immunosuppressant Start: 03-23-2024 take 2 capsules by mouth once daily in the morning, then take 1 capsule by mouth once daily in the evening Tacrolimus (PROGRAF) 1 MG capsule Indications: Kidney replaced by transplant , High risk medication use TAKE 2 CAPSULES BY MOUTH DAILY EVERY MORNING AND 1 CAPSULE BY MOUTH EVERY EVENING 90 capsule 11 03/23/2024 Active Start: 04-04-2023 take 2 capsules by m outh once daily in the morning, then take 1 capsule by mouth in the evening Tacrolimus (PROGRAF) 1 MG capsule Indications: Kidney replaced by transplant , High risk medication use TAKE 2 CAPSULES BY MOUTH DAILY IN THE MORNING AND 1 CAPSULE BY MOUTH IN THE EVENING 90 capsule 11 04/04/2023 Active Start: 03-25-2022 Tacrolimus 1 m g capsule Active 0 PO Q12H March 25, 2022 8:45am orally every 12 hours; 2 tabs in the am 8am, 1 tab at 8pm Start: 02-05-2022 End: 02-05-2023 take 2 capsules by mouth once daily in the morning, then take 1 capsule by mouth once daily in the evening tacrolimus (PROGRAF) 1 MG capsule Indications: Kidney replaced by transplant , High risk medication use , Essential hypertension , Chronic kidney disease-mineral and bone disorder , Anemia due to stage 3a chronic kidney disease , S/P kidney transplant Take 2 capsules by mouth daily every morning AND 1 capsule every evening. 270 capsule 3 02/05/2022 02/05/2023 Active Start: 01-15-2021 End: 03-25-2022 take 1 capsule by mouth every twelve hours Tacrolimus 1 mg capsule Discontinued 1 mg PO Q12H January 15, 2021 12:00am March 25, 2022 8:49am Start: 09-26-2020 take 1 capsule by mo uth twice daily tacrolimus (PROGRAF) 1 MG capsule Indications: Kidney replaced by transplant , High risk medication use , Essential hypertension , Chronic kidney disease-mineral and bone disorder , Anemia due to stage 3a chronic kidney disease , S/P kidney transplant Take 2 capsules by mouth 2 times daily. 360 capsule 3 09/10/2021 Active ubidecarenone 100 mg oral capsule (4 sources) Start: 01-28-2024 take 10 capsules by mouth once daily Coenzyme Q10 100 mg capsule Active 100 mg PO DAILY January 28, 2024 12:00am Completed/Discontinued Medications Medication Drug Class(es) Dates Sig (Normalized) Sig (Original) amLODIPine 2.5 mg oral tablet (20 sources) Dihydropyridine Calcium Channel Casandra Start: 04-26-2020 End: 05-08-2020 take 1 tablet by mouth once daily Amlodipine 2.5 MG tablet Discontinued 2.5 mg PO DAILY April 26, 2020 1:00am May 08, 2020 6:42pm apixaban 5 mg oral tablet (20 sources) Factor Xa Inhibitor Start: 12-27-2019 End: 01-15-2021 take 1 tablet by mouth twice daily Apixaban (Eliquis) 5 mg tablet Discontinued 5 mg PO TWICE A DAY December 27, 2019 12:00am January 15, 2021 11:15am ascorbic acid 1000 mg oral tablet (20 sources) Vitamin C Start: 08-03-2018 End: 12-27-2019 take 1 tablet by mouth once daily Ascorbic Acid (Vitamin C) 1,000 MG tablet Discontinued 1000 mg PO DAILY August 03, 2018 1:00am December 27, 2019 2:11pm ascorbic acid 100 mg / biotin 0.15 mg / calcium pantothenate 5 mg / folic acid 1 mg / niacin 20 mg / pyridoxine 10 mg / riboflavin 1.7 mg / thiamine mononitrate 1.5 mg / vitamin b 12 0.006 mg oral capsule (3 sources) Nicotinic Acid, Vitamin B12, Vitamin C Start: 06-24-2015 take 1 capsule by mouth once daily Renal 1 MG Oral Capsule TAKE 1 CAPSULE Daily Quantity: 30 Refills: 0 Start : 24-Jun-2015 Active atorvastatin 20 mg oral tablet (20 sources) HMG-CoA Reductase Inhibitor Start: 05-03-2023 End: 05-09-2023 take 1 tablet by mouth at bedtime Atorvastatin Discontinued 0 .ROUTE .COMPLEX May 03, 2023 8:58am May 09, 2023 2:00pm TAKE 1 TABLET BY MOUTH AT BEDTIME Start: 04-26-2020 End: 04-27-2024 take 1 tablet by mouth at bedtime Atorvastatin 20 mg tablet Discontinued 0 .ROUTE .COMPLEX May 03, 2023 8:58am May 09, 2023 2:00pm TAKE 1 TABLET BY MOUTH AT BEDTIME B Complex With C 20-Folic Acid (20 sources) Start: 03-25-2020 End: 05-07-2020 take 1 capsule by mouth once daily B Complex With C 20-Folic Acid Discontinued 1 CAP PO DAILY March 25, 2020 1:15am May 07, 2020 5:07pm Start: 03-25-2020 End: 05-07-2020 take 1 capsule by mouth once daily B Complex With C 20-Folic Acid Discontinued 1 CAP PO DAILY March 24, 2020 11:00pm May 07, 2020 4:07pm Start: 03-25-2020 End: 05-07-2020 take 1 capsule by mouth once daily B Complex With C 20-Folic Acid Discontinued 1 CAP PO DAILY March 25, 2020 12:00am May 07, 2020 5:07pm B Complex With C 20-Folic Acid 1 CAPSULE capsule (4 sources) Start: 03-25-2020 End: 05-07-2020 B Complex With C 20-Folic Acid 1 CAPSULE capsule Discontinued 1 NMA PO DAILY March 25, 2020 12:00am May 07, 2020 5:07pm B Complex-Vitamin C-Folic Acid (20 sources) Start: 09-01-2016 End: 12-27-2019 take 0.8 mg by mouth once daily B Complex-Vitamin C-Folic Acid Discontinued 0.8 MG PO DAILY September 01, 2016 7:44am December 27, 2019 2:11pm Start: 09-01-2016 End: 12-27-2019 take 0.8 mg by mouth once daily B Complex-Vitamin C-Folic Acid Discontinued 0.8 MG PO DAILY August 31, 2016 11:00pm December 27, 2019 1:11pm Start: 09-01-2016 End: 12-27-2019 take 0.8 mg by mouth once daily B Complex-Vitamin C-Folic Acid Discontinued 0.8 MG PO DAILY September 01, 2016 12:00am December 27, 2019 2:11pm B Complex-Vitamin C-Folic Acid 0.8 MG tablet (4 sources) Start: 09-01-2016 End: 12-27-2019 take 1 tablet by mouth once daily B Complex-Vitamin C-Folic Acid 0.8 MG tablet Discontinued 0.8 mg PO DAILY September 01, 2016 12:00am December 27, 2019 2:11pm calcitriol 0.0005 mg oral capsule (20 sources) Vitamin D3 Analog Start: 09-04-2020 End: 01-15-2021 Calcitriol 0.5 mcg capsule Discontinued NMA PO September 04, 2020 12:00am January 15, 2021 11:15am Start: 09-04-2020 End: 01-15-2021 Calcitriol Discontinued EACH PO September 04, 2020 12:00am January 15, 2021 11:15am Calcitriol 0.5 M CG Oral Capsule Refills: 0 Active calcium acetate 667 mg oral capsule (20 sources) Start: 01-17-2018 End: 12-27-2019 Calcium Acetate(Phosphat Bin d) 667 MG capsule Discontinued 2668 mg PO 3 TIMES DAILY WITH MEALS January 17, 2018 12:00am December 27, 2019 2:12pm Start: 01-17-2018 End: 12-27-2019 take 2668 mg by mouth three times daily at mealtime Calcium Acetate(Phosphat Bind) Discontinued 2668 MG PO 3 TIMES DAILY WITH MEALS January 17, 2018 12:00am December 27, 2019 2:12pm Start: 12-13-2016 Calcium Acetat e (Phos Binder) 667 MG Oral Capsule TAKE CAPSULE take as directed Refills: 0 DO Start : 13-Dec-2016 Active ciprofloxacin 500 mg oral tablet (20 sources) Quinolone Antimicrobial Start: 08-01-2021 End: 09-10-2021 take 1 tablet by mouth twice daily Ciprofloxacin Hcl 500 mg tablet Discontinued 500 mg PO TWICE A DAY August 01, 2021 1:00am September 10, 2021 8:41am diclofenac sodium 0.01 mg/mg topical gel (20 sources) Nonsteroidal Anti-inflammatory Drug Start: 01-15-2021 End: 03-25-2022 apply 2 g topically once Diclofenac Sodium 1 % gel Discontinued 2 g TOPICAL ONCE January 15, 2021 12:00am March 25, 2022 8:49am apply to single elbow, wrist or hand; for hand includes palm/fingers/back of hand Start: 01-15-2021 End: 03-25-2022 apply 2 g topically once Diclofenac Sodium Discontinu ed 2 GM TOPICAL ONCE January 15, 2021 12:00am March 25, 2022 8:49am apply to single elbow, wrist or hand; for hand includes palm/fingers/back of hand Diclofenac Sodiu m 1 % Gel gel Apply 2 g topically 4 times daily as needed. For knee pain 0 Active docusate sodium 100 mg oral capsule (20 sources) Start: 01-14-2016 End: 01-15-2021 take 1 capsule by mouth twice daily Docusate Sodium (Dulcolax Stool Softener (Dss)) 100 mg capsule Discontinued 100 mg PO TWICE A DAY December 27, 2019 12:00am January 15, 2021 11:16am ergocalciferol 1.25 mg oral capsule (20 sources) Provitamin D2 Compound Start: 07-17-2015 End: 12-27-2019 Ergocalciferol (Vitamin D2) 50,000 UNIT capsule Discontinued 59216 U PO EVERY MONTH September 01, 2016 12:00am December 27, 2019 2:12pm Start: 07-17-2015 take 1 capsule by mo ut once, then take 1 capsule by mouth every month Vitamin D (Ergocalciferol) 83843 UNIT Oral Capsule TAKE 1 CAPSULE Take 1 capsule 1x/month Refills: 0 DO Start : 17-Jul-2015 Active gabapentin 100 mg oral capsule (20 sources) Anti-epileptic Agent Start: 11-09-2022 End: 05-03-2023 take 1 capsule by mouth twice daily Gabapentin 100 mg capsule Discontinued 100 mg PO TWICE A DAY November 09, 2022 2:05pm May 03, 2023 12:24pm Start: 09-21-2022 take 1 capsule by mo ut once daily Gabapentin 100 mg capsule Active 100 mg PO DAILY May 03, 2023 12:23pm Start: 03-25-2022 End: 11-09-2022 take 3 capsules by mouth twice daily Gabapentin 100 mg capsule Discontinued 300 mg PO TWICE A DAY March 25, 2022 12:00am November 09, 2022 2:08pm Start: 03-25-2022 End: 11-09-2022 take 300 mg by mouth twice daily Gabapentin Discontinu ed 300 MG PO TWICE A DAY March 25, 2022 12:00am November 09, 2022 2:08pm Start: 03-25-2022 take 300 mg by mouth three times daily Gabapentin Active 300 MG PO THREE TIMES A DAY March 24, 2022 11:00pm take 1 capsule by mo ut three times daily gabapentin 300 MG capsule Take 300 mg by mouth 3 times daily. 0 Active levoFLOXacin 750 mg oral tablet (20 sources) Quinolone Antimicrobial Start: 09-10-2021 End: 12-03-2021 take 1 tablet by mouth once daily Levofloxacin 750 mg tablet Discontinued 750 mg PO DAILY September 10, 2021 12:00am December 03, 2021 8:40am lisinopril 5 mg oral tablet (20 sources) Angiotensin Converting Enzyme Inhibitor Start: 06-20-2020 End: 07-15-2020 take 2.5 mg by mouth once daily Lisinopril 5 mg tablet Discontinued 2.5 mg PO DAILY June 20, 2020 5:02pm July 15, 2020 3:21pm Start: 06-20-2020 End: 07-15-2020 take 2.5 mg by mouth once daily Lisinopril Discontinue d 2.5 MG PO DAILY June 20, 2020 5:02pm July 15, 2020 3:21pm Start: 04-26-2020 End: 06-20-2020 take 1 tablet by mouth once daily Lisinopril 5 mg tablet Discontinued 5 mg PO DAILY May 08, 2020 6:38pm June 20, 2020 5:02pm metoclopramide 5 mg oral tablet (20 sources) Dopamine-2 Receptor Antagonist Start: 05-07-2020 End: 05-19-2021 take 1 tablet by mouth once daily as needed Metoclopramide Hcl 5 mg tablet Discontinued 5 mg PO DAILY as needed January 15, 2021 11:16am May 19, 2021 3:31pm metoprolol tartrate 25 mg oral tablet (20 sources) beta-Adrenergic Casandra Start: 10-28-2020 End: 12-03-2021 take 1 tablet by mouth twice daily Metoprolol Tartrate 25 mg tablet Discontinued 25 mg PO TWICE A DAY January 15, 2021 12:00am December 03, 2021 8:39am Start: 07-08-2020 End: 07-15-2020 Metoprolol Tartrate 25 mg ta blet Discontinued 12.5 mg PO TWICE A DAY July 08, 2020 5:58pm July 15, 2020 3:20pm Start: 07-08-2020 End: 07-15-2020 take 12.5 mg by mouth twice daily Metoprolol Tartrate Discontinued 12.5 MG PO TWICE A DAY July 08, 2020 5:58pm July 15, 2020 3:20pm Start: 04-26-2020 End: 07-08-2020 take 1 tablet by mouth twice daily Metoprolol Tartrate 25 mg tablet Discontinued 25 mg PO TWICE A DAY 180 May 08, 2020 6:41pm July 08, 2020 5:59pm midodrine hydrochloride 10 mg oral tablet (20 sources) alpha-Adrenergic Agonist Start: 07-17-2020 End: 01-15-2021 take 1 tablet by mouth once daily Midodrine 10 mg tablet Discontinued 10 mg PO .COMPLEX July 17, 2020 1:00am January 15, 2021 11:17am 10 mg PO pt to check with software requirements engineer re: take only on dialysis days vs every day Midodrine HCl - 10 MG Oral Tablet Take as directed Refills: 0 Active nystatin [id number] unt/ml oral suspension (1 source) Polyene Antifungal Start: 09-26-2020 take 1 mL by mouth four times daily nystatin 100,000 units/mL oral suspension Dose : 100,000 unit(s) = 1 mL, Oral, QID, # 30 mL, 0 Refill(s) Start Date: 09/26/20 Status: Ordered oxyCODONE hydrochloride 5 mg oral tablet (20 sources) Opioid Agonist Start: 11-09-2022 take 5 mg by mouth once Oxycodone Active 5 MG PO ONCE November 08, 2022 11:00pm Start: 09-15-2022 End: 01-28-2024 take 1 tablet by mouth every six hours as needed for pain Oxycodone 5 mg tablet Discontinued 5 mg PO EVERY 6 HOURS as needed for pain November 09, 2022 12:00am January 28, 2024 9:58am Start: 09-01-2016 End: 03-25-2022 take 5-10 mg by mouth every four hours as needed for pain Oxycodone 5 MG tablet Discontinued 5 - 10 mg PO EVERY 4 HOURS NEEDED as needed for Pain September 01, 2016 12:00am March 25, 2022 8:48am Start: 03-22-2016 take 1-2 tablets by mouth every four to six hours as needed for pain oxyCODONE HCl - 5 MG Oral Tablet TAKE 1 TO 2 TABLETS EVERY 4 TO 6 HOURS NEEDED FOR PAIN. Refills: 0 Start : 22-Mar-2016 Active Renal 1 MG Oral Capsule (11 sources) Start: 06-24-2015 take 1 capsule by mouth once daily Renal 1 MG Oral Capsule TAKE 1 CAPSULE Daily Quantity: 30 Refills: 0 Start : 24-Jun-2015 Active Start: 06-24-2015 take 1 capsule by mo uth once daily Renal 1 MG Oral Capsule TAKE 1 CAPSULE Daily Quantity: 30 Refills: 0 DO Start : 24-Jun-2015 Active sevelamer carbonate 800 mg oral tablet (20 sources) Phosphate Binder Start: 01-15-2021 End: 05-19-2021 take 2 tablets by mouth twice daily Sevelamer Carbonate 800 mg tablet Discontinued 1600 mg PO TWICE A DAY January 15, 2021 11:17am May 19, 2021 3:32pm Start: 01-15-2021 End: 05-19-2021 take 1600 mg by mouth twice daily Sevelamer Carbonate Discontinued 1600 MG PO TWICE A DAY January 15, 2021 11:17am May 19, 2021 3:32pm Start: 01-07-2020 End: 01-15-2021 take 1 tablet by mouth three times daily Sevelamer Carbonate 800 MG tablet Discontinued 800 mg PO THREE TIMES A DAY January 07, 2020 12:00am January 15, 2021 11:22am Renvela 800 MG O ral Tablet take 3 with each meal and 1 with snacks Refills: 0 Active sodium bicarbonate 650 mg oral tablet (20 sources) Start: 07-06-2021 End: 03-17-2022 take 2 tablets by mouth three times daily sodium bicarbonate 650 MG tablet Indications: Metabolic acidosis TAKE 2 TABLETS BY MOUTH 3 TIMES A DAY 540 tablet 1 07/06/2021 03/17/2022 Discontinued Start: 01-15-2021 End: 03-25-2022 take 1 tablet by mouth twice daily Sodium Bicarbonate 650 mg tablet Discontinued 650 mg PO TWICE A DAY January 15, 2021 12:00am March 25, 2022 8:48am Velphoro CHEW (8 sources) Velphoro CHEW Re fills: 0 DO Active Velphoro CHEW Re fills: 0 Active Problems Active Problems Problem Classification Problem Date Documented Date Episodic/Chronic Abdominal pain (20 sources) Epigastric pain; Translations: [Epigastric pain] 01-08-2020 Episodic Chronic kidney disease (20 sources) Dependence on 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; Translations: [End-stage renal disease] Onset: 01-27-20 10 10-11-2019 Chronic Complication of device; implant or graft (5 sources) Arteriovenous fistula thrombosis; 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, implants and grafts, initial encounter] Onset: 08-14-19 20 10-11-2019 Chronic Complication of device; implant or graft (20 sources) Disorder of surgical arteriovenous fistula; Translations: [Unspecified complication of cardiac and vascular prosthetic device, implant and graft, initial encounter] Onset: 04-06-20 18 10-11-2019 Episodic Congestive heart failure; nonhypertensive (20 sources) Acute combined systolic and diastolic heart failure; Translations: [Acute combined systolic (congestive) and diastolic (congestive) heart failure] Onset: 04-22-2005-18-2021 Chronic Disorders of lipid metabolism (4 sources) Hyperlipidemia; Translations: [Hyperlipidemia, unspecified] Onset: 09-13-19 Chronic Essential hypertension (20 sources) Essential hypertension; Translations: [Essential (primary) hypertension] Onset: 09-13-19 Chronic Fever of unknown origin (20 sources) Fever; Translations: [Fever, unspecified] 09-17-2021 Episodic Genitourinary congenital anomalies (17 sources) Cystic disease of kidney; 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] Onset: 01-27-2010-11-2019 Chronic Genitourinary congenital anomalies (10 sources) Multiple renal cysts; Translations: [History of Polycystic kidney disease] Episodic Gout and other crystal arthropathies (1 source) Gout, unspecified; Translations: [Gout, unspecified] Onset: 10-12-19 Chronic Hypertension with complications and secondary hypertension (1 source) Renal hypertension; Translations: [Hypertension secondary to other renal disorders] Chronic Immunity disorders (6 sources) Immunosuppression; Translations: [Immunodeficiency, unspecified] Onset: 09-13-19 Chronic Immunizations and screening for infectious disease (20 sources) Contact with and (suspected) exposure to other viral communicable diseases; Translations: [Contact with or suspected exposure to other viral communicable disease] Onset: 09-13-19 25 07-14-2022 Episodic Malaise and fatigue (20 sources) Malaise and fatigue; Translations: [Other malaise] 09-17-2021 Episodic Nausea and vomiting (20 sources) Nausea; Translations: [Nausea] 08-04-2018 Episodic Nonspecific chest pain (20 sources) Chest pain; Translations: [Chest pain, unspecified] 01-08-2020 Episodic Nutritional deficiencies (1 source) Vitamin D deficiency, unspecified; Translations: [Vitamin D deficiency, unspecified] Onset: 10-12-19 25 Chronic Osteoarthritis (1 source) Unilateral primary osteoarthritis, right hip; Translations: [Unilateral primary osteoarthritis, right hip] Onset: 01-23-20 24 Chronic Other aftercare (4 sources) Transplant follow-up; Translations: [Encounter for aftercare following other organ transplant] Chronic Other aftercare (2 sources) Encounter for aftercare following other organ transplant; Translations: [Encounter for aftercare following other organ transplant] Onset: 09-13-19 25 Chronic Other aftercare (3 sources) Long-term current use of immunosuppressive drug; Translations: [Other technician terminal and repeater (current) drug therapy] Episodic Other aftercare (4 sources) Taking high risk medication; Translations: [Other technician terminal and repeater (current) drug therapy] Episodic Other aftercare (3 sources) Other technician terminal and repeater (current) drug therapy; Translations: [Other technician terminal and repeater (current) drug therapy] Onset: 09-13-19 Episodic Other gastrointestinal disorders (18 sources) Disorder of abdominal wall; Translations: [Intra-abdominal and pelvic swelling, mass and lump, unspecified site] 11-08-2022 Episodic Comment on above: This is a 61-year-ol d female who presents for asymmetric bulging of her right abdominal wall. She has some associated discomfort with this finding. CT from August of this year did not find any discernible hernias per radiology. However, I have independently reviewed this imaging and identify 3 small fascial breaks the largest of these is approximately 1.5 cm in diameter which contain small marika of subcutaneous tissue. Based on the location of these findings, I believe they represent small incisional hernias along patient's laparotomy incision and potentially 1 involving her transplant incision. Given her tenderness, I suspect that these hernias containing chronically incarcerated fat. At their present size I do not believe they represent a significant risk for bowel involvement. I also question whether or not patient may have some element of abdominal wall denervation from her multiple prior operations which could be contributing some of the shape differential she is experiencing. Given the distribution of patient's small fascial defects, I would estimate she would require a rather large piece of mesh to back these defects within the IPOM approach. She appears minimally symptomatic and honestly wishes to avoid surgery if possible. I suggested to her that a watchful waiting approach is reasonable, but have provided her with red flag warnings that should prompt her former emergent evaluation. She is happy with this explanation and confirms that she will let us know if further symptoms develop. Other gastrointestinal disorders (5 sources) Intra-abdominal and pelvic swelling, mass and lump, unspecified site; Translations: [Abdominal or pelvic swelling, mass, or lump, unspecified site] 11-08-2022 Episodic Other lower respiratory disease (20 sources) Dyspnea on exertion; Translations: [Shortness of breath] 05-19-2021 Episodic Other nervous system disorders (20 sources) Postoperative pain ; Translations: [Other acute postprocedural pain] 08-16-2022 Episodic Other nutritional; endocrine; and metabolic disorders (4 sources) Hyperhomocysteinemia ; Translations: [Homocystinuria] Onset: 06-01-2010-11-2019 Chronic Other nutritional; endocrine; and metabolic disorders (4 sources) Obese class I; Translations: [Obesity, unspecified] Onset: 09-17-1909-16-2020 Chronic Other nutritional; endocrine; and metabolic disorders (1 source) Hypomagnesemia; Translations: [Hypomagnesemia] Onset: 10-12-19 Chronic Other upper respiratory infections (20 sources) Upper respiratory infection; Translations: [Acute upper respiratory infection, unspecified] 09-17-2021 Episodic Bhargavi-; endo-; and myocarditis; cardiomyopathy (except that caused by tuberculosis or sexually transmitted disease) (20 sources) Cardiomyopathy; Translations: [Other cardiomyopathies] Chronic Residual codes; unclassified (4 sources) Awaiting transplantation of kidney; Translations: [Awaiting organ transplant status] Onset: 09-12-1909-18-2020 Chronic Residual codes; unclassified (6 sources) Other general symptoms and signs; Translations: [Other general symptoms] Onset: 09-13-19 Episodic Residual codes; unclassified (2 sources) At risk for infection; Translations: [Other specified personal risk factors, not elsewhere classified] 09-12-2023 Episodic Residual codes; unclassified (2 sources) Other specified personal risk factors, not elsewhere classified; Translations: [Other specified personal risk factors, not elsewhere classified] Onset: 09-13-19 25 Episodic Unclassified (1 source) long-term (current) use of unspecified immunomodulators and immunosuppressants; Translations: [long-term (current) use of unspecified immunomodulators and immunosuppressants] Onset: 09-13-19 25 Urinary tract infections (20 sources) Urinary tract infectious disease; Translations: [Urinary tract infection, site not specified] 08-09-2021 Episodic Viral infection (20 sources) Disease caused by 2019-nCoV; Translations: [COVID-19] 03-25-2022 Episodic Past or Other Problems Problem Classification Problem Date Documented Da te Episodic/Chronic Fluid and electrolyte disorders (4 sources) Hyperkalemia; Translations: [Hyperkalemia] Onset: 0 10-11-2019 Episodic Other screening for suspected conditions (not mental disorders or infectious disease) (12 sources) Blood chemistry abnormal; Translations: [Abnormal finding of blood chemistry, unspecified] Onset: 4 Episodic Other skin disorders (4 sources) Sebaceous cyst of skin; Translations: [Sebaceous cyst] Onset: 3 10-11-2019 Episodic Phlebitis; thrombophlebitis and thromboembolism (8 sources) Acute deep venous thrombosis of axillary vein; Translations: [Acute embolism and thrombosis of unspecified axillary vein] Onset: 0 10-11-2019 Episodic Unclassified (20 sources) Patient encounter status; Translations: [Pre-transplant evaluation for kidney transplant] Unclassified (1 source) technician terminal and repeater (current) use of unspecified immunomodulators and immunosuppressants; Translations: [technician terminal and repeater (current) use of unspecified immunomodulators and immunosuppressants] Onset: 5 NEGATED: Highlighted row has not occurred!Residual codes; unclassified (20 sources) Disease Episodic Results Test Name Value Interpretation Reference Range Facility Tacrolimus (Prograf)on 10-30 Tacrolimus (Bld) [Mass/Vol] 4.9 ng/mL Low 5.0-20.0 [facility] Comment on above: Order Comment: Test( s) [id number] (FK506), Blood was developed and its performance characteristics determined by [facility]. It has not been cleared or approved by the Food and Drug Administration. Result Comment: Targ et steady state trough concentration for Tacrolimus varies based on type of organ transplant immunosuppressive protocol and other patient specific factors. Tacrolimus trough concentrations should be interpreted in conjunction with clinical assessments of rejection and tolerability. Values obtained with different assay methods cannot be used interchangeably due to differences in assay methods and cross-reactivty with metabolites, nor should correction factors be applied. Therefore, consistent use of one assay for individual patients is recommended. Detection Limit = 0.5 ng/mL Performed by LC-MS/MS technology. Performed at: [address] [id number] Consumer Insights Specialist: Amaury Dubois MD, Phone: [phone] Performed By: #### L 500.2500, L3380.1000 #### [facility] [address] [place], [address] Anion gap in Serum or Plasma on 10-25-2024 Anion gap [Moles/Vol] 11 mmol/L 10-18 [facility] BUN/creatinine ratioon 10-25 Urea nitrogen/Creatinine [Mass ratio] 11.0 mg/mg 03-25 [facility] Basic Metabolic Profile (BMP )on 10-25-2024 BUN/CRE 11.0 RATIO Normal 03-25 [facility] Comment on above: Performed By: #### L 500.2500, L3380.1000 #### [facility] [address] [place], [address] Calcium [Mass/Vol] 9.9 mg/dL Normal 7.6-11.0 [facility] Comment on above: Performed By: #### L 500.2500, L3380.1000 #### [facility] [address] [place], [address] Chloride [Moles/Vol] 106 mmol/L Normal 98-108 [facility] Comment on above: Performed By: #### L 500.2500, L3380.1000 #### [facility] [address] [place], [address] CO2 [Moles/Vol] 20.2 mmol/L Low 21.0-32.0 [facility] Comment on above: Performed By: #### L 500.2500, L3380.1000 #### [facility] [address] [place], [address] Creatinine [Mass/Vol] 1.48 mg/dL High 0.70-1.20 [facility] Comment on above: Performed By: #### L 500.2500, L3380.1000 #### [facility] [address] [place], [address] GAP 11 Normal 5-15 [facility] Comment on above: Performed By: #### L 500.2500, L3380.1000 #### [facility] [address] [place], [address] GFR/1.73 sq M.predicted among non-blacks MDRD (S/P/Bld) [Vol rate/Area] 40 mL/min/{1.73_m2} Low >60 [facility] Comment on above: Result Comment: mL/m in/1.73m2 CKD-EPI Creatinine Equation (2020) Performed By: #### L 500.2500, L3380.1000 #### [facility] [address] [place], [address] Glucose [Mass/Vol] 109 mg/dL High 70-99 [facility] Comment on above: Performed By: #### L 500.2500, L3380.1000 #### [facility] [address] [place], [address] Potassium [Moles/Vol] 4.4 mmol/L Normal 3.3-5.1 [facility] Comment on above: Performed By: #### L 500.2500, L3380.1000 #### [facility] [address] [place], [address] Sodium [Moles/Vol] 137 mmol/L Normal 133-145 [facility] Comment on above: Performed By: #### L 500.2500, L3380.1000 #### [facility] [address] [place], [place], [address] Urea nitrogen [Mass/Vol] 16 mg/dL Normal - [facility] Comment on above: Performed By: #### L 500.2500, L3380.1000 #### [facility] [address] [place], [address] Carbon dioxide, total [Moles /volume] in Central venous bloodon 10-25-2024 CO2 [Moles/Vol] 20.2 mmol/L Low 21.0-32.0 [facility] Chloride assayon 10-25-2024 Chloride [Moles/Vol] 106 mmol/L 98-108 [facility] Glomerular filtration rate ( GFR) estimation/1.73 sq m using serum, plasma, or whole bon 10-25-2024 GFR/1.73 sq M.predicted among non-blacks MDRD (S/P/Bld) [Vol rate/Area] 40 mL/min/{1.73_m2} Low >60 [facility] Comment on above: mL/min/1.73m2 CKD-EP I Creatinine Equation (2020) Potassium measurement (mass/ volume)on 10-25-2024 Potassium (Unsp spec) [Mass/Vol] 4.4 mmol/L 3.3-5.1 [facility] Serum creatinine measurement (mass/volume)on 10-25-2024 Creatinine [Mass/Vol] 1.48 mg/dL High 0.70-1.20 [facility] Serum glucose measurement (m ass/volume)on 10-25-2024 Glucose [Mass/Vol] 109 mg/dL High 70-99 [facility] Serum or plasma calcium osei urement (mass/volume)on 10-25-2024 Calcium [Mass/Vol] 9.9 mg/dL 7.6-11.0 [facility] Serum or plasma urea nitroge n measurement (mass/volume)on 10-25-2024 Urea nitrogen [Mass/Vol] 16 mg/dL - [facility] Sodium levelon 10-25-2024 Sodium [Moles/Vol] 137 mmol/L 133-145 [facility] Tacrolimus (Prograf)on 10-19 Tacrolimus (Bld) [Mass/Vol] 8.4 ng/mL Normal 5.0-20.0 [facility] Comment on above: Order Comment: Test( s) [id number] ([id number]), Bloodwas developed and its performance characteristicsdetermined by [facility] [employer]. It has not been cleared or approvedby the Food and Drug Administration. Result Comment: Targ et steady state trough concentration for Tacrolimus varies based on type of organ transplant immunosuppressive protocol and other patient specific factors. Tacrolimus trough concentrations should be interpreted in conjunction with clinical assessments of rejection and tolerability. Values obtained with different assay methods cannot be used interchangeably due to differences in assay methods and cross-reactivty with metabolites, nor should correction factors be applied. Therefore, consistent use of one assay for individual patients is recommended. Detection Limit = 0.5 ng/mL Performed by LC-MS/MS technology. Performed at: [address] [id number] Consumer Insights Specialist: Amaury Dubois MD, Phone: [phone] Performed By: #### L 500.2500, L3380.1000 #### [facility] [address] [place], [address] Albumin, Serumon 10-16-2024 Albumin [Mass/Vol] 4.0 g/dL Normal 3.4-4.8 [facility] Comment on above: Order Comment: ALICE Clark SAID -MINUS THE CALCIUM. MAGALYS SAID SHE WOULD CREDIT THE CALCIUM. I TRIED CALLING BACK. THEY WERE ALL IN MEETINGS --DR. MARIE CALLED PT WITH ANOTHER ORDER (RENAL) WE CAN ADD THIS TO BMP, PLUS ALB AND PHOS. Performed By: #### L 3380.1000, L501.1800, L500.2500, L100.0500, L501.0900, L501.2300 #### [facility] [address] [place], [place], [id number] Anion gap in Serum or Plasma on 10-16-2024 Anion gap [Moles/Vol] 11 mmol/L 5-15 [facility] BUN/creatinine ratioon 10-16 Urea nitrogen/Creatinine [Mass ratio] 13.8 mg/mg - [facility] Basic Metabolic Profile (BMP )on 10-16-2024 BUN/CRE 13.8 RATIO Normal - [facility] Comment on above: Order Comment: ALICE Clark SAID -MINUS THE CALCIUM. MAGALYS SAID SHE WOULD CREDIT THE CALCIUM. I TRIED CALLING BACK. THEY WERE ALL IN MEETINGS Performed By: #### L 3380.1000, L501.1800, L500.2500, L100.0500, L501.0900, L501.2300 #### [facility] [address] [place], [address] Calcium [Mass/Vol] 10.9 mg/dL Normal 7.6-11.0 [facility] Comment on above: Order Comment: ALICE Clark SAID -MINUS THE CALCIUM. MAGALYS SAID SHE WOULD CREDIT THE CALCIUM. I TRIED CALLING BACK. THEY WERE ALL IN MEETINGS Performed By: #### L 3380.1000, L501.1800, L500.2500, L100.0500, L501.0900, L501.2300 #### [facility] [address] [place], [address] Chloride [Moles/Vol] 108 mmol/L Normal 98-108 [facility] Comment on above: Order Comment: ALICE Clark SAID -MINUS THE CALCIUM. MAGALYS SAID SHE WOULD CREDIT THE CALCIUM. I TRIED CALLING BACK. THEY WERE ALL IN MEETINGS Performed By: #### L 3380.1000, L501.1800, L500.2500, L100.0500, L501.0900, L501.2300 #### [facility] [address] [place], [address] CO2 [Moles/Vol] 22.1 mmol/L Normal 21.0-32.0 [facility] Comment on above: Order Comment: ALICE Clark SAID -MINUS THE CALCIUM. MAGALYS SAID SHE WOULD CREDIT THE CALCIUM. I TRIED CALLING BACK. THEY WERE ALL IN MEETINGS Performed By: #### L 3380.1000, L501.1800, L500.2500, L100.0500, L501.0900, L501.2300 #### [facility] [address] [place], [address] Creatinine [Mass/Vol] 1.70 mg/dL High 0.70-1.20 [facility] Comment on above: Order Comment: ALICE Clark SAID -MINUS THE CALCIUM. MAGALYS SAID SHE WOULD CREDIT THE CALCIUM. I TRIED CALLING BACK. THEY WERE ALL IN MEETINGS Performed By: #### L 3380.1000, L501.1800, L500.2500, L100.0500, L501.0900, L501.2300 #### [facility] [address] [place], [address] GAP 11 Normal 5-15 [facility] Comment on above: Order Comment: ALICE Clark SAID -MINUS THE CALCIUM. MAGALYS SAID SHE WOULD CREDIT THE CALCIUM. I TRIED CALLING BACK. THEY WERE ALL IN MEETINGS Performed By: #### L 3380.1000, L501.1800, L500.2500, L100.0500, L501.0900, L501.2300 #### [facility] [address] [place], [address] GFR/1.73 sq M.predicted among non-blacks MDRD (S/P/Bld) [Vol rate/Area] 34 mL/min/{1.73_m2} Low >60 [facility] Comment on above: Order Comment: ALICE Clark SAID -MINUS THE CALCIUM. MAGALYS SAID SHE WOULD CREDIT THE CALCIUM. I TRIED CALLING BACK. THEY WERE ALL IN MEETINGS Result Comment: mL/m in/1.73m2 CKD-EPI Creatinine Equation (2020) Performed By: #### L 3380.1000, L501.1800, L500.2500, L100.0500, L501.0900, L501.2300 #### [facility] [address] [place], [address] Glucose [Mass/Vol] 117 mg/dL High 70-99 [facility] Comment on above: Order Comment: ALICE Clark SAID -MINUS THE CALCIUM. MAGALYS SAID SHE WOULD CREDIT THE CALCIUM. I TRIED CALLING BACK. THEY WERE ALL IN MEETINGS Performed By: #### L 3380.1000, L501.1800, L500.2500, L100.0500, L501.0900, L501.2300 #### [facility] [address] [place], [address] Potassium [Moles/Vol] 4.4 mmol/L Normal 3.3-5.1 [facility] Comment on above: Order Comment: ALICE Clark SAID -MINUS THE CALCIUM. MAGALYS SAID SHE WOULD CREDIT THE CALCIUM. I TRIED CALLING BACK. THEY WERE ALL IN MEETINGS Performed By: #### L 3380.1000, L501.1800, L500.2500, L100.0500, L501.0900, L501.2300 #### [facility] [address] [place], [address] Sodium [Moles/Vol] 141 mmol/L Normal 133-145 [facility] Comment on above: Order Comment: ALICE Clark SAID -MINUS THE CALCIUM. MAGALYS SAID SHE WOULD CREDIT THE CALCIUM. I TRIED CALLING BACK. THEY WERE ALL IN MEETINGS Performed By: #### L 3380.1000, L501.1800, L500.2500, L100.0500, L501.0900, L501.2300 #### [facility] [address] [place] [place], [address] Urea nitrogen [Mass/Vol] 23 mg/dL High 4-19 [facility] Comment on above: Order Comment: ALICE Clark SAID -MINUS THE CALCIUM. MAGALYS SAID SHE WOULD CREDIT THE CALCIUM. I TRIED CALLING BACK. THEY WERE ALL IN MEETINGS Performed By: #### L 3380.1000, L501.1800, L500.2500, L100.0500, L501.0900, L501.2300 #### [facility] [address] [place], [address] CBC-Complete Blood Cnt No Di ffon 10-16-2024 Erythrocyte distribution width (RBC) [Ratio] 12.7 % Normal 11.6-14.6 [facility] Comment on above: Performed By: #### L 3380.1000, L501.1800, L500.2500, L100.0500, L501.0900, L501.2300 #### [facility] [address] [place], [address] Hematocrit (Bld) [Volume fraction] 40.2 % Normal 37-47 [facility] Comment on above: Performed By: #### L 3380.1000, L501.1800, L500.2500, L100.0500, L501.0900, L501.2300 #### [facility] [address] [place], [address] Hemoglobin (Bld) [Mass/Vol] 13.0 g/dL Normal 12.0-15.0 [facility] Comment on above: Performed By: #### L 3380.1000, L501.1800, L500.2500, L100.0500, L501.0900, L501.2300 #### [facility] [address] [place], [address] MCH (RBC) [Entitic mass] 29.8 pg Normal 27.0-32.0 [facility] Comment on above: Performed By: #### L 3380.1000, L501.1800, L500.2500, L100.0500, L501.0900, L501.2300 #### [facility] [address] [place], [address] MCHC (RBC) [Mass/Vol] 32.3 g/dL Normal 32-36 [facility] Comment on above: Performed By: #### L 3380.1000, L501.1800, L500.2500, L100.0500, L501.0900, L501.2300 #### [facility] [address] [place], [address] MCV (RBC) [Entitic vol] 92.2 fL Normal 81-99 [facility] Comment on above: Performed By: #### L 3380.1000, L501.1800, L500.2500, L100.0500, L501.0900, L501.2300 #### [facility] [address] [place], [address] Platelet mean volume (Bld) [Entitic vol] 10.4 fL Normal 6.2-12.0 [facility] Comment on above: Performed By: #### L 3380.1000, L501.1800, L500.2500, L100.0500, L501.0900, L501.2300 #### [facility] [address] [place], [address] Platelets (Bld) [#/Vol] 289 10*3/uL Normal 150-450 [facility] Comment on above: Performed By: #### L 3380.1000, L501.1800, L500.2500, L100.0500, L501.0900, L501.2300 #### [facility] [address] [place], [address] RBC (Bld) [#/Vol] 4.36 10*6/uL Normal 4.2-5.4 [facility] Comment on above: Performed By: #### L 3380.1000, L501.1800, L500.2500, L100.0500, L501.0900, L501.2300 #### [facility] [address] [place], [address] RDW SD 42.7 fl Normal 35.1-43.9 [facility] Comment on above: Performed By: #### L 3380.1000, L501.1800, L500.2500, L100.0500, L501.0900, L501.2300 #### [facility] [address] [place], [address] WBC (Bld) [#/Vol] 6.6 10*3/uL Normal 4.4-11.0 [facility] Comment on above: Performed By: #### L 3380.1000, L501.1800, L500.2500, L100.0500, L501.0900, L501.2300 #### [facility] [address] [place], [address] Carbon dioxide, total [Moles /volume] in Central venous bloodon 10-16-2024 CO2 [Moles/Vol] 22.1 mmol/L 21.0-32.0 [facility] Chloride assayon 10-16-2024 Chloride [Moles/Vol] 108 mmol/L 98-108 [facility] Erythrocyte distribution wid th ratioon 10-16-2024 Erythrocyte distribution width (RBC) [Ratio] 12.7 % 11.6-14.6 [facility] Erythrocyte distribution wid th standard deviationon 10-16-2024 Erythrocyte distribution width (RBC) [Ratio] 42.7 fl 35.1-43.9 [facility] Glomerular filtration rate ( GFR) estimation/1.73 sq m using serum, plasma, or whole bon 10-16-2024 GFR/1.73 sq M.predicted among non-blacks MDRD (S/P/Bld) [Vol rate/Area] 34 mL/min/{1.73_m2} Low >60 [facility] Comment on above: mL/min/1.73m2 CKD-EP I Creatinine Equation (2020) Hematocrit Auto (Bld) [Volum e fraction]on 10-16-2024 Hematocrit (Bld) [Volume fraction] 40.2 % 37-47 [facility] Hemoglobin measurementon Hemoglobin (Bld) [Mass/Vol] 13.0 g/dL 12.0-15.0 [facility] MCV (mean corpuscular volume ) determinationon 10-16-2024 MCV (RBC) [Entitic vol] 92.2 fL 81-99 [facility] Mean corpuscular hemoglobin (MCH) determinationon 10-16-2024 MCH (RBC) [Entitic mass] 29.8 pg 27.0-32.0 [facility] Mean corpuscular hemoglobin concentration (MCHC) determinationon 10-16-2024 MCHC (RBC) [Mass/Vol] 32.3 g/dL 32-36 [facility] Mean platelet volume determi nationon 10-16-2024 Platelet mean volume (Bld) [Entitic vol] 10.4 fL 6.2-12.0 [facility] Phosphoruson 10-16-2024 Phosphate [Mass/Vol] 2.6 mg/dL Low 2.7-4.5 [facility] Comment on above: Order Comment: ALICE Clark SAID -MINUS THE CALCIUM. MAGALYS SAID SHE WOULD CREDIT THE CALCIUM. I TRIED CALLING BACK. THEY WERE ALL IN MEETINGS --DR. MARIE CALLED PT WITH ANOTHER ORDER (RENAL) WE CAN ADD THIS TO BMP, PLUS ALB AND PHOS. Performed By: #### L 3380.1000, L501.1800, L500.2500, L100.0500, L501.0900, L501.2300 #### [facility] [address] [place], [address] Platelet counton 10-16-2024 Platelets (Bld) [#/Vol] 289 10*3/uL 150-450 [facility] Potassium measurement (mass/ volume)on 10-16-2024 Potassium (Unsp spec) [Mass/Vol] 4.4 mmol/L 3.3-5.1 [facility] Protein+Creatinine Ratio,Uri neon 10-16-2024 PROT:CRE RATIO 65 mg/g CRE Normal 0-200 [facility] Comment on above: Performed By: #### L 3380.1000, L501.1800, L500.2500, L100.0500, L501.0900, L501.2300 #### [facility] [address] [place], [address] Protein (U) [Mass/Vol] 11.1 mg/dL Normal 0.0-12.0 [facility] Comment on above: Performed By: #### L 3380.1000, L501.1800, L500.2500, L100.0500, L501.0900, L501.2300 #### [facility] [address] [place], [address] UR CREAT 171.00 mg/dL Normal 28.00-217. 00 [facility] Comment on above: Performed By: #### L 3380.1000, L501.1800, L500.2500, L100.0500, L501.0900, L501.2300 #### [facility] [address] [place], [address] RBC Auto (Bld) [#/Vol]on RBC (Bld) [#/Vol] 4.36 10*6/uL 4.2-5.4 [facility] Random urine creatinine osei urement (mass/volume)on 10-16-2024 Creatinine Unsp time (U) [Mass/Vol] 171.00 mg/dL 28.00-217. 00 [facility] Renal Profileon 10-16-2024 ALB Normal 3.4-4.8 [facility] Comment on above: Result Comment: CAROLINE NG TO AM DRAW ALREADY DONE PLUS TWO MORE TESTS Performed By: #### L 3380.1000, L500.3600 #### [facility] [address] [place], [address] BUN Normal 4-19 [facility] Comment on above: Result Comment: CAROLINE NG TO AM DRAW ALREADY DONE PLUS TWO MORE TESTS Performed By: #### L 3380.1000, L500.3600 #### [facility] [address] [place], [address] BUN/CRE Normal 10-20 [facility] Comment on above: Result Comment: CAROLINE NG TO AM DRAW ALREADY DONE PLUS TWO MORE TESTS Performed By: #### L 3380.1000, L500.3600 #### [facility] [address] [place], [address] Calcium Normal 7.6-11.0 [facility] Comment on above: Result Comment: CAROLINE NG TO AM DRAW ALREADY DONE PLUS TWO MORE TESTS Performed By: #### L 3380.1000, L500.3600 #### [facility] [address] [place], [address] CL Normal 98-108 [facility] Comment on above: Result Comment: CAROLINE NG TO AM DRAW ALREADY DONE PLUS TWO MORE TESTS Performed By: #### L 3380.1000, L500.3600 #### [facility] [address] [place], [address] CO2 Normal 21.0-32.0 [facility] Comment on above: Result Comment: CAROLINE NG TO AM DRAW ALREADY DONE PLUS TWO MORE TESTS Performed By: #### L 3380.1000, L500.3600 #### [facility] [address] [place], [address] CREAT,SERUM Normal 0.70-1.20 [facility] Comment on above: Result Comment: CAROLINE NG TO AM DRAW ALREADY DONE PLUS TWO MORE TESTS Performed By: #### L 3380.1000, L500.3600 #### [facility] [address] [place], [address] eGFR Normal >60 [facility] Comment on above: Result Comment: CAROLINE NG TO AM DRAW ALREADY DONE PLUS TWO MORE TESTS Performed By: #### L 3380.1000, L500.3600 #### [facility] [address] [place], [address] GAP Normal 5-15 [facility] Comment on above: Result Comment: CAROLINE NG TO AM DRAW ALREADY DONE PLUS TWO MORE TESTS Performed By: #### L 3380.1000, L500.3600 #### [facility] [address] [place], [address] GLU Normal 70-99 [facility] Comment on above: Result Comment: CAROLINE NG TO AM DRAW ALREADY DONE PLUS TWO MORE TESTS Performed By: #### L 3380.1000, L500.3600 #### [facility] [address] [place], [address] PHOS Normal 2.7-4.5 [facility] Comment on above: Result Comment: CAROLINE NG TO AM DRAW ALREADY DONE PLUS TWO MORE TESTS Performed By: #### L 3380.1000, L500.3600 #### [facility] [address] [place], [address] Potassium Normal 3.3-5.1 [facility] Comment on above: Result Comment: CAROLINE NG TO AM DRAW ALREADY DONE PLUS TWO MORE TESTS Performed By: #### L 3380.1000, L500.3600 #### [facility] [address] [place], [address] Renal Profile Normal 133-145 [facility] Comment on above: Result Comment: CAROLINE NG TO AM DRAW ALREADY DONE PLUS TWO MORE TESTS Performed By: #### L 3380.1000, L500.3600 #### [facility] [address] [place], [address] Serum creatinine measurement (mass/volume)on 10-16-2024 Creatinine [Mass/Vol] 1.70 mg/dL High 0.70-1.20 [facility] Serum glucose measurement (m ass/volume)on 10-16-2024 Glucose [Mass/Vol] 117 mg/dL High 70-99 [facility] Serum or plasma albumin osei urement (mass/volume)on 10-16-2024 Albumin [Mass/Vol] 4.0 g/dL 3.4-4.8 [facility] Serum or plasma calcium osei urement (mass/volume)on 10-16-2024 Calcium [Mass/Vol] 10.9 mg/dL 7.6-11.0 [facility] Serum or plasma urea nitroge n measurement (mass/volume)on 10-16-2024 Urea nitrogen [Mass/Vol] 23 mg/dL High 4-19 [facility] Sodium levelon 10-16-2024 Sodium [Moles/Vol] 141 mmol/L 133-145 [facility] Urine protein measurement (m ass/volume)on 10-16-2024 Protein (U) [Mass/Vol] 11.1 mg/dL 0.0-12.0 [facility] Urine protein/creatinine mas s ratioon 10-16-2024 Protein/Creatinine (U) [Mass ratio] 65 mg/g CRE 0-200 [facility] White blood cell (WBC) count on 10-16-2024 WBC (Bld) [#/Vol] 6.6 10*3/uL 4.4-11.0 [facility] Tacrolimus (Prograf)on 10-15 Tacrolimus (Bld) [Mass/Vol] 8.9 ng/mL Normal 5.0-20.0 [facility] Comment on above: Order Comment: Test( s) [id number] (FK506), Blood was developed and its performance characteristics determined by [employer]. It has not been cleared or approved by the Food and Drug Administration. Result Comment: Sammy et steady state trough concentration for Tacrolimus varies based on type of organ transplant immunosuppressive protocol and other patient specific factors. Tacrolimus trough concentrations should be interpreted in conjunction with clinical assessments of rejection and tolerability. Values obtained with different assay methods cannot be used interchangeably due to differences in assay methods and cross-reactivty with metabolites, nor should correction factors be applied. Therefore, consistent use of one assay for individual patients is recommended. Detection Limit = 0.5 ng/mL Performed by LC-MS/MS technology. Performed at: [address] [id number] Consumer Insights Specialist: Amaury Dubois MD, Phone: [phone] Performed By: #### L 3380.1000, L500.3600 #### [facility] [place], [address] Anion gap in Serum or Plasma Ordered By: Natthavat Tanphaichitr on 10-11-2024 Anion gap [Moles/Vol] 10 mmol/L 5-15 [facility] BUN/creatinine ratioOrdered By: Natthavat Tanphaichitr on 10-11-2024 Urea nitrogen/Creatinine [Mass ratio] 16.9 mg/mg 10- [facility] Carbon dioxide, total [Moles /volume] in Central venous bloodOrdered By: Natthavat Tanphaichitr on 10-11-2024 CO2 [Moles/Vol] 22.9 mmol/L 21.0-32.0 [facility] Chloride assayOrdered By: Elena Wu on 10-11-2024 Chloride [Moles/Vol] 106 mmol/L 98-108 [facility] Glomerular filtration rate ( GFR) estimation/1.73 sq m using serum, plasma, or whole bOrdered By: Krzysztof Wu on 10-11-2024 GFR/1.73 sq M.predicted among non-blacks MDRD (S/P/Bld) [Vol rate/Area] 32 mL/min/{1.73_m2} Low >60 [facility] Comment on above: mL/min/1.73m2 CKD-EP I Creatinine Equation (2020) Potassium measurement (mass/ volume)Ordered By: Krzysztof Wu on 10-11-2024 Potassium (Unsp spec) [Mass/Vol] 4.9 mmol/L 3.3-5.1 [facility] Renal Profileon 10-11-2024 Albumin [Mass/Vol] 4.1 g/dL Normal 3.4-4.8 [facility] Comment on above: Performed By: #### L 3380.1000, L500.3600 #### [facility] [address] [place], [address] BUN/CRE 16.9 RATIO Normal 10-20 [facility] Comment on above: Performed By: #### L 3380.1000, L500.3600 #### [facility] [address] [place] [place], [address] Calcium [Mass/Vol] 10.9 mg/dL Normal 7.6-11.0 [facility] Comment on above: Performed By: #### L 3380.1000, L500.3600 #### [facility] [address] [place] [place], [address] Chloride [Moles/Vol] 106 mmol/L Normal 98-108 [facility] Comment on above: Performed By: #### L 3380.1000, L500.3600 #### [facility] [address] [place], [address] CO2 [Moles/Vol] 22.9 mmol/L Normal 21.0-32.0 [facility] Comment on above: Performed By: #### L 3380.1000, L500.3600 #### [facility] [address] [place], [address] Creatinine [Mass/Vol] 1.77 mg/dL High 0.70-1.20 [facility] Comment on above: Performed By: #### L 3380.1000, L500.3600 #### [facility] [address] [place], [address] GAP 10 Normal 5-15 [facility] Comment on above: Performed By: #### L 3380.1000, L500.3600 #### [facility] [address] [place], [address] GFR/1.73 sq M.predicted among non-blacks MDRD (S/P/Bld) [Vol rate/Area] 32 mL/min/{1.73_m2} Low >60 [facility] Comment on above: Result Comment: mL/m in/1.73m2 CKD-EPI Creatinine Equation (2020) Performed By: #### L 3380.1000, L500.3600 #### [facility] [address] [place], [address] Glucose [Mass/Vol] 110 mg/dL High 70-99 [facility] Comment on above: Performed By: #### L 3380.1000, L500.3600 #### [facility] [address] [place], [address] Phosphate [Mass/Vol] 2.2 mg/dL Low 2.7-4.5 [facility] Comment on above: Performed By: #### L 3380.1000, L500.3600 #### [facility] [address] [place], [address] Potassium [Moles/Vol] 4.9 mmol/L Normal 3.3-5.1 [facility] Comment on above: Performed By: #### L 3380.1000, L500.3600 #### [facility] [address] [place], [address] Sodium [Moles/Vol] 139 mmol/L Normal 133-145 [facility] Comment on above: Performed By: #### L 3380.1000, L500.3600 #### [facility] [address] [place], [address] Urea nitrogen [Mass/Vol] 30 mg/dL High 09-22 [facility] Comment on above: Performed By: #### L 3380.1000, L500.3600 #### [facility] [address] [place], [address] Serum creatinine measurement (mass/volume)Ordered By: Krzysztof Wu on 10-11-2024 Creatinine [Mass/Vol] 1.77 mg/dL High 0.70-1.20 [facility] Serum glucose measurement (m ass/volume)Ordered By: Krzysztof Wu on 10-11-2024 Glucose [Mass/Vol] 110 mg/dL High 70-99 [facility] Serum or plasma albumin osei urement (mass/volume)Ordered By: Krzysztof Conradichisasha on 10-11-2024 Albumin [Mass/Vol] 4.1 g/dL 3.4-4.8 [facility] Serum or plasma calcium osei urement (mass/volume)Ordered By: Krzysztof Conradichisasha on 10-11-2024 Calcium [Mass/Vol] 10.9 mg/dL 7.6-11.0 [facility] Serum or plasma urea nitroge n measurement (mass/volume)Ordered By: Krzysztof Conradichisasha on 10-11-2024 Urea nitrogen [Mass/Vol] 30 mg/dL High 09-22 [facility] Sodium levelOrdered By: Priscila Wu on 10-11-2024 Sodium [Moles/Vol] 139 mmol/L 133-145 [facility] Tacrolimus (Prograf)on 10-06 Tacrolimus (Bld) [Mass/Vol] 8.8 ng/mL Normal 5.0-20.0 [facility] Comment on above: Order Comment: Test( s) [id number] (FK506), Bloodwas developed and its performance characteristicsdetermined by [employer]. It has not been cleared or approvedby the Food and Drug Administration. Result Comment: Chandnig et steady state trough concentration for Tacrolimus varies based on type of organ transplant immunosuppressive protocol and other patient specific factors. Tacrolimus trough concentrations should be interpreted in conjunction with clinical assessments of rejection and tolerability. Values obtained with different assay methods cannot be used interchangeably due to differences in assay methods and cross-reactivty with metabolites, nor should correction factors be applied. Therefore, consistent use of one assay for individual patients is recommended. Detection Limit = 0.5 ng/mL Performed by LC-MS/MS technology Please note reference interval change Performed at: [address] [id number] Consumer Insights Specialist: Amaury Dubois MD, Phone: [phone] Performed By: #### L 3380.1000, L501.1800, L500.2500, L100.0500, L501.0900, L501.2300 #### [facility] [address] [place], [address] Anion gap in Serum or Plasma Ordered By: Krzysztof Conradichisasha on 10-03-2024 Anion gap [Moles/Vol] 12 mmol/L 5-15 [facility] BUN/creatinine ratioOrdered By: Krzysztof Damonphaichisasha on 10-03-2024 Urea nitrogen/Creatinine [Mass ratio] 16.8 mg/mg 10-20 [facility] Bilirubin, totalOrdered By: Krzysztof Damonphaichisasha on 10-03-2024 Bilirubin [Mass/Vol] 0.42 mg/dL 0.00-1.30 [facility] CBC-Complete Blood Cnt No Di ffon 10-03-2024 Erythrocyte distribution width (RBC) [Ratio] 12.8 % Normal 11.6-14.6 [facility] Comment on above: Performed By: #### L 3380.1000, L501.1800, L500.2500, L100.0500, L501.0900, L501.2300 #### [facility] [address] [place], [address] Hematocrit (Bld) [Volume fraction] 38.8 % Normal 37-47 [facility] Comment on above: Performed By: #### L 3380.1000, L501.1800, L500.2500, L100.0500, L501.0900, L501.2300 #### [facility] [address] [place], [address] Hemoglobin (Bld) [Mass/Vol] 12.8 g/dL Normal 12.0-15.0 [facility] Comment on above: Performed By: #### L 3380.1000, L501.1800, L500.2500, L100.0500, L501.0900, L501.2300 #### [facility] [address] [place], [address] MCH (RBC) [Entitic mass] 30.3 pg Normal 27.0-32.0 [facility] Comment on above: Performed By: #### L 3380.1000, L501.1800, L500.2500, L100.0500, L501.0900, L501.2300 #### [facility] [address] [place], [address] MCHC (RBC) [Mass/Vol] 33.0 g/dL Normal 32-36 [facility] Comment on above: Performed By: #### L 3380.1000, L501.1800, L500.2500, L100.0500, L501.0900, L501.2300 #### [facility] [address] [place], [address] MCV (RBC) [Entitic vol] 91.9 fL Normal 81-99 [facility] Comment on above: Performed By: #### L 3380.1000, L501.1800, L500.2500, L100.0500, L501.0900, L501.2300 #### [facility] [address] [place], [address] Platelet mean volume (Bld) [Entitic vol] 10.7 fL Normal 6.2-12.0 [facility] Comment on above: Performed By: #### L 3380.1000, L501.1800, L500.2500, L100.0500, L501.0900, L501.2300 #### [facility] [address] [place], [address] Platelets (Bld) [#/Vol] 279 10*3/uL Normal 150-450 [facility] Comment on above: Performed By: #### L 3380.1000, L501.1800, L500.2500, L100.0500, L501.0900, L501.2300 #### [facility] [address] [place], [address] RBC (Bld) [#/Vol] 4.22 10*6/uL Normal 4.2-5.4 [facility] Comment on above: Performed By: #### L 3380.1000, L501.1800, L500.2500, L100.0500, L501.0900, L501.2300 #### [facility] [address] [place], [address] RDW SD 42.9 fl Normal 35.1-43.9 [facility] Comment on above: Performed By: #### L 3380.1000, L501.1800, L500.2500, L100.0500, L501.0900, L501.2300 #### [facility] [address] [place], [address] WBC (Bld) [#/Vol] 8.8 10*3/uL Normal 4.4-11.0 [facility] Comment on above: Performed By: #### L 3380.1000, L501.1800, L500.2500, L100.0500, L501.0900, L501.2300 #### [facility] [address] [place], [address] Carbon dioxide, total [Moles /volume] in Central venous bloodOrdered By: Natthavat Tanphaichisasha on 10-03-2024 CO2 [Moles/Vol] 21.3 mmol/L 21.0-32.0 [facility] Chloride assayOrdered By: Na ttdebbivatheresa Tanphaichisasha on 10-03-2024 Chloride [Moles/Vol] 109 mmol/L High 98-108 [facility] Comprehensive Metabolic Prof ilon 10-03-2024 Albumin [Mass/Vol] 4.0 g/dL Normal 3.4-4.8 [facility] Comment on above: Performed By: #### L 3380.1000, L501.1800, L500.2500, L100.0500, L501.0900, L501.2300 #### [facility] [address] [place], [address] Albumin/Globulin [Mass ratio] 1.7 {ratio} Normal 0.9-2.4 [facility] Comment on above: Performed By: #### L 3380.1000, L501.1800, L500.2500, L100.0500, L501.0900, L501.2300 #### [facility] [address] [place], [address] ALK PHOS 91 U/L Normal 35-104 [facility] Comment on above: Performed By: #### L 3380.1000, L501.1800, L500.2500, L100.0500, L501.0900, L501.2300 #### [facility] [address] [place], [address] ALT [Catalytic activity/Vol] 21 U/L Normal <=34 [facility] Comment on above: Performed By: #### L 3380.1000, L501.1800, L500.2500, L100.0500, L501.0900, L501.2300 #### [facility] [address] [place], [address] AST [Catalytic activity/Vol] 18 U/L Normal <=31 [facility] Comment on above: Performed By: #### L 3380.1000, L501.1800, L500.2500, L100.0500, L501.0900, L501.2300 #### [facility] [address] [place], [address] Bilirubin [Mass/Vol] 0.42 mg/dL Normal 0.00-1.30 [facility] Comment on above: Performed By: #### L 3380.1000, L501.1800, L500.2500, L100.0500, L501.0900, L501.2300 #### [facility] [address] [place], [address] BUN/CRE 16.8 RATIO Normal 10-20 [facility] Comment on above: Performed By: #### L 3380.1000, L501.1800, L500.2500, L100.0500, L501.0900, L501.2300 #### [facility] [address] [place], [address] Calcium [Mass/Vol] 10.5 mg/dL Normal 7.6-11.0 [facility] Comment on above: Performed By: #### L 3380.1000, L501.1800, L500.2500, L100.0500, L501.0900, L501.2300 #### [facility] [address] [place], [address] Chloride [Moles/Vol] 109 mmol/L High 98-108 [facility] Comment on above: Performed By: #### L 3380.1000, L501.1800, L500.2500, L100.0500, L501.0900, L501.2300 #### [facility] [address] [place], [address] CO2 [Moles/Vol] 21.3 mmol/L Normal 21.0-32.0 [facility] Comment on above: Performed By: #### L 3380.1000, L501.1800, L500.2500, L100.0500, L501.0900, L501.2300 #### [facility] [address] [place], [address] Creatinine [Mass/Vol] 1.69 mg/dL High 0.70-1.20 [facility] Comment on above: Performed By: #### L 3380.1000, L501.1800, L500.2500, L100.0500, L501.0900, L501.2300 #### [facility] [address] [place], [address] GAP 12 Normal 5-15 [facility] Comment on above: Performed By: #### L 3380.1000, L501.1800, L500.2500, L100.0500, L501.0900, L501.2300 #### [facility] [address] [place], [address] GFR/1.73 sq M.predicted among non-blacks MDRD (S/P/Bld) [Vol rate/Area] 34 mL/min/{1.73_m2} Low >60 [facility] Comment on above: Result Comment: mL/m in/1.73m2 CKD-EPI Creatinine Equation (2020) Performed By: #### L 3380.1000, L501.1800, L500.2500, L100.0500, L501.0900, L501.2300 #### [facility] [address] [place], [address] Globulin (S) [Mass/Vol] 2.3 g/dL Normal 2.2-4.2 [facility] Comment on above: Performed By: #### L 3380.1000, L501.1800, L500.2500, L100.0500, L501.0900, L501.2300 #### [facility] [address] [place], [address] Glucose [Mass/Vol] 114 mg/dL High 70-99 [facility] Comment on above: Performed By: #### L 3380.1000, L501.1800, L500.2500, L100.0500, L501.0900, L501.2300 #### [facility] [address] [place], [address] Potassium [Moles/Vol] 4.6 mmol/L Normal 3.3-5.1 [facility] Comment on above: Performed By: #### L 3380.1000, L501.1800, L500.2500, L100.0500, L501.0900, L501.2300 #### [facility] [address] [place], [address] Sodium [Moles/Vol] 141 mmol/L Normal 133-145 [facility] Comment on above: Performed By: #### L 3380.1000, L501.1800, L500.2500, L100.0500, L501.0900, L501.2300 #### [facility] [address] [place], [address] T PROT 6.3 g/dL Normal 5.9-8.4 [facility] Comment on above: Performed By: #### L 3380.1000, L501.1800, L500.2500, L100.0500, L501.0900, L501.2300 #### [facility] [address] [place], [address] Urea nitrogen [Mass/Vol] 28 mg/dL High 4-19 [facility] Comment on above: Performed By: #### L 3380.1000, L501.1800, L500.2500, L100.0500, L501.0900, L501.2300 #### [facility] [address] [place], [address] Erythrocyte distribution wid th ratioOrdered By: [facility] Wu on 10-03-2024 Erythrocyte distribution width (RBC) [Ratio] 12.8 % 11.6-14.6 [facility] Erythrocyte distribution wid th standard deviationOrdered By: Gopalericka Wu on 10-03-2024 Erythrocyte distribution width (RBC) [Ratio] 42.9 fl 35.1-43.9 [facility] Glomerular filtration rate ( GFR) estimation/1.73 sq m using serum, plasma, or whole bOrdered By: [facility] Wu on 10-03-2024 GFR/1.73 sq M.predicted among non-blacks MDRD (S/P/Bld) [Vol rate/Area] 34 mL/min/{1.73_m2} Low >60 [facility] Comment on above: mL/min/1.73m2 CKD-EP I Creatinine Equation (2020) Hematocrit Auto (Bld) [Volum e fraction]Ordered By: Gopalericka Wu on 10-03-2024 Hematocrit (Bld) [Volume fraction] 38.8 % 37-47 [facility] Hemoglobin measurementOrdere d By: Krzysztof Wu on 10-03-2024 Hemoglobin (Bld) [Mass/Vol] 12.8 g/dL 12.0-15.0 [facility] - Chemistry and C hemistry - challengeOrdered By: [facility] Wu on 10-03-2024 AST [Catalytic activity/Vol] 18 U/L <32 [facility] MCV (mean corpuscular volume ) determinationOrdered By: Krzysztof Wu on 10-03-2024 MCV (RBC) [Entitic vol] 91.9 fL 81-99 [facility] Magnesiumon 10-03-2024 Magnesium [Mass/Vol] 1.8 mg/dL Normal 1.5-2.2 [facility] Comment on above: Performed By: #### L 3380.1000, L501.1800, L500.2500, L100.0500, L501.0900, L501.2300 #### [facility] [address] [place], [address] Magnesium measurement (mass/ volume)Ordered By: Krzysztof Wu on 10-03-2024 Magnesium (Unsp spec) [Mass/Vol] 1.8 mg/dL 1.5-2.2 [facility] Mean corpuscular hemoglobin (MCH) determinationOrdered By: Gopalericka Conradichisasha on 10-03-2024 MCH (RBC) [Entitic mass] 30.3 pg 27.0-32.0 [facility] Mean corpuscular hemoglobin concentration (MCHC) determinationOrdered By: Gopalericka Damonphaichisasha on 10-03-2024 MCHC (RBC) [Mass/Vol] 33.0 g/dL 32-36 [facility] Mean platelet volume determi nationOrdered By: Natirving Damonphaichitr on 10-03-2024 Platelet mean volume (Bld) [Entitic vol] 10.7 fL 6.2-12.0 [facility] Microalb:Creat Ratio,Random URon 10-03-2024 MALB:CREAT UNABLE TO CALCULATE Normal [facility] Comment on above: Performed By: #### L 3380.1000, L501.1800, L500.2500, L100.0500, L501.0900, L501.2300 #### [facility] [address] [place], [address] MICROALBUMIN,UR < 12.0 Normal NO RANGE EST. [facility] Comment on above: Performed By: #### L 3380.1000, L501.1800, L500.2500, L100.0500, L501.0900, L501.2300 #### [facility] [address] [place], [address] Microalbumin/creat ratio urO rdered By: Krzysztof Wu on 10-03-2024 Urine microalbumin/creatini ne ratio measurement UNABLE TO CALCULATE mg/g CRE [facility] PTHINon 10-03-2024 PTH 201 pg/mL High 11-61 [facility] Comment on above: Performed By: #### L 3380.1000, L501.1800, L500.2500, L100.0500, L501.0900, L501.2300 #### [facility] [address] [place], [address] Phosphoruson 10-03-2024 Phosphate [Mass/Vol] 2.9 mg/dL Normal 2.7-4.5 [facility] Comment on above: Performed By: #### L 3380.1000, L501.1800, L500.2500, L100.0500, L501.0900, L501.2300 #### [facility] [address] [place], [address] Platelet countOrdered By: Elena Wu on 10-03-2024 Platelets (Bld) [#/Vol] 279 10*3/uL 150-450 [facility] Potassium measurement (mass/ volume)Ordered By: Krzysztof Wu on 10-03-2024 Potassium (Unsp spec) [Mass/Vol] 4.6 mmol/L 3.3-5.1 [facility] Protein+Creatinine Ratio,Uri neon 10-03-2024 PROT:CRE RATIO 100 mg/g CRE Normal 0-200 [facility] Comment on above: Performed By: #### L 3380.1000, L501.1800, L500.2500, L100.0500, L501.0900, L501.2300 #### [facility] [address] [place], [address] Protein (U) [Mass/Vol] 13.1 mg/dL High 0.0-12.0 [facility] Comment on above: Performed By: #### L 3380.1000, L501.1800, L500.2500, L100.0500, L501.0900, L501.2300 #### [facility] [address] [place], [address] UR CREAT 131.00 mg/dL Normal 28.00-217. 00 [facility] Comment on above: Performed By: #### L 3380.1000, L501.1800, L500.2500, L100.0500, L501.0900, L501.2300 #### [facility] [address] [place], [address] RBC Auto (Bld) [#/Vol]Ordere d By: Krzysztof Wu on 10-03-2024 RBC (Bld) [#/Vol] 4.22 10*6/uL 4.2-5.4 [facility] Random urine creatinine osei urement (mass/volume)Ordered By: Krzysztof Wu on 10-03-2024 Creatinine Unsp time (U) [Mass/Vol] 131.00 mg/dL 28.00-217. 00 [facility] Serum creatinine measurement (mass/volume)Ordered By: Krzysztof Wu on 10-03-2024 Creatinine [Mass/Vol] 1.69 mg/dL High 0.70-1.20 [facility] Serum globulin measurementOr dered By: Krzysztof Wu on 10-03-2024 Globulin (S) [Mass/Vol] 2.3 g/dL 2.2-4.2 [facility] Serum glucose measurement (m ass/volume)Ordered By: Krzysztof Wu on 10-03-2024 Glucose [Mass/Vol] 114 mg/dL High 70-99 [facility] Serum or plasma alanine dugan otransferase (ALT) measurementOrdered By: Krzysztof Wu on 10-03-2024 ALT [Catalytic activity/Vol] 21 U/L <35 [facility] Serum or plasma albumin osei urement (mass/volume)Ordered By: Krzysztof Wu on 10-03-2024 Albumin [Mass/Vol] 4.0 g/dL 3.4-4.8 [facility] Serum or plasma albumin/glob ulin mass ratioOrdered By: Gopalericka Wu on 10-03-2024 Albumin/Globulin [Mass ratio] 1.7 {ratio} 0.9-2.4 [facility] Serum or plasma alkaline simran sphatase measurementOrdered By: [facility]opalericka [facility] on 10-03-2024 ALP [Catalytic activity/Vol] 91 U/L 35-104 [facility] Serum or plasma calcium osei urement (mass/volume)Ordered By: [facility] on 10-03-2024 Calcium [Mass/Vol] 10.5 mg/dL 7.6-11.0 [facility] Serum or plasma urea nitroge n measurement (mass/volume)Ordered By: [facility]opalericka [facility] on 10-03-2024 Urea nitrogen [Mass/Vol] 28 mg/dL High 4-19 [facility] Serum or plasma uric acid me asurement (mass/volume)Ordered By: [facility] on 10-03-2024 Urate [Mass/Vol] 6.3 mg/dL High 2.6-6.0 [facility] Comment on above: The drugs N-Acetylcy steine and Metamizole may falsely depress this assay. Sodium levelOrdered By: Priscila Damonselect specialty hospitalsasha on 10-03-2024 Sodium [Moles/Vol] 141 mmol/L 133-145 [facility] Total proteinOrdered By: Gopal Damonselect specialty hospitalsasha on 10-03-2024 Protein [Mass/Vol] 6.3 g/dL 5.9-8.4 [facility] Uric Acidon 10-03-2024 URIC 6.3 mg/dL High 2.6-6.0 [facility] Comment on above: Result Comment: The drugs N-Acetylcysteine and Metamizole may falsely depress this assay. Performed By: #### L 3380.1000, L501.1800, L500.2500, L100.0500, L501.0900, L501.2300 #### [facility] [place], [address] Urine albumin measurement [facility] detection limit of 20 mg/L or less (mass/volume)Ordered By: Krzysztof Wu on 10-03-2024 Albumin DL <= 20 mg/L (U) [Mass/Vol] < 12.0 mg/L NO RANGE EST. [facility] Urine protein measurement (m ass/volume)Ordered By: Gopalericka Wu on 10-03-2024 Protein (U) [Mass/Vol] 13.1 mg/dL High 0.0-12.0 [facility] Urine protein/creatinine mas s ratioOrdered By: Gopalericka Wu on 10-03-2024 Protein/Creatinine (U) [Mass ratio] 100 mg/g CRE 0-200 [facility] Vitamin D,25 Hydroxyon 10-03 Vitamin D 25-OH 55.7 ng/mL Normal 30-100 [facility] Comment on above: Result Comment: Kelly min D Status Deficiency: <20 ng/mL (50nmol/L) Insufficiency: 20-30 ng/mL (50-75 nmol/L) Sufficiency: 30-100 ng/mL (75-250 nmol/L) Toxicity: >100 ng/mL (>250 nmol/L) Performed By: #### L 3380.1000, L501.1800, L500.2500, L100.0500, L501.0900, L501.2300 #### [facility] [place], [address] White blood cell (WBC) count Ordered By: Krzysztof Wu on 10-03-2024 WBC (Bld) [#/Vol] 8.8 10*3/uL 4.4-11.0 [facility] Tacrolimus (Prograf)on 09-23 Tacrolimus (Bld) [Mass/Vol] 5.3 ng/mL Normal 5.0-20.0 [facility] Comment on above: Order Comment: Test( s) [id number]-Gxrbizuzom (FK506), Bloodwas developed and its performance characteristicsdetermined by [facility]. It has not been cleared or approvedby the Food and Drug Administration. Result Comment: Targ et steady state trough concentration for Tacrolimus varies based on type of organ transplant immunosuppressive protocol and other patient specific factors. Tacrolimus trough concentrations should be interpreted in conjunction with clinical assessments of rejection and tolerability. Values obtained with different assay methods cannot be used interchangeably due to differences in assay methods and cross-reactivty with metabolites, nor should correction factors be applied. Therefore, consistent use of one assay for individual patients is recommended. Detection Limit = 0.5 ng/mL Performed by LC-MS/MS technology Please note reference interval change Performed at: [address] [id number] Consumer Insights Specialist: Amaury Dubois MD, Phone: [phone] Performed By: #### L 3380.1000, Q258.0837 #### [facility] [address] [place], [address] Absolute lymphocyte counton 09-20-2024 Lymphocytes Auto (Unsp spec) [#/Vol] 0.87 10*3/uL 0.83-4.51 [facility] Absolute neutrophil counton 09-20-2024 Neutrophils (Bld) [#/Vol] 5.1 10*3/uL 2.0-7.7 [facility] Anion gap in Serum or Plasma on 09-20-2024 Anion gap [Moles/Vol] 11 mmol/L 5- [facility] Automated lymphocyte count a s percentage of total leukocyteson 09-20-2024 Lymphocytes/100 WBC Auto (Unsp spec) 12.2 % Low 19-41 [facility] BUN/creatinine ratioon 09-20 Urea nitrogen/Creatinine [Mass ratio] 17.1 mg/mg 10-20 [facility] Basophil percentageon 2024 Basophils/100 WBC (Bld) 1.1 % High 0-1 [facility] Bilirubin, totalon Bilirubin [Mass/Vol] 0.32 mg/dL 0.00-1.30 [facility] CBC W/Diff, Automatedon 09-04 Absolute Lymph 0.87 X10 3/uL Normal 0.83-4.51 [facility] Comment on above: Performed By: #### L 500.2500, L3380.1000 #### [facility] [address] [place], [address] Absolute Neut 5.1 X10 3/uL Normal 2.0-7.7 [facility] Comment on above: Performed By: #### L 500.2500, L3380.1000 #### [facility] [address] [place], [address] Basophils/100 WBC (Bld) 1.1 % High 0-1 [facility] Comment on above: Performed By: #### L 500.2500, L3380.1000 #### [facility] [address] [place], [address] Eosinophils/100 WBC (Bld) 5.2 % High 0-5 [facility] Comment on above: Performed By: #### L 500.2500, L3380.1000 #### [facility] [address] [place], [address] Erythrocyte distribution width (RBC) [Ratio] 12.9 % Normal 11.6-14.6 [facility] Comment on above: Performed By: #### L 500.2500, L3380.1000 #### [facility] [address] [place], [address] Hematocrit (Bld) [Volume fraction] 37.1 % Normal 37-47 [facility] Comment on above: Performed By: #### L 500.2500, L3380.1000 #### [facility] [address] [place], [address] Hemoglobin (Bld) [Mass/Vol] 12.2 g/dL Normal 12.0-15.0 [facility] Comment on above: Performed By: #### L 500.2500, L3380.1000 #### [facility] [address] [place], [address] IG% 0.400 Normal 0.0-0.9 [facility] Comment on above: Result Comment: IG% - Immature Granulocytes (promyelocytes, myelocytes and metamyelocytes) > 1% indicates that a LEFT SHIFT is Present. Performed By: #### L 500.2500, L3380.1000 #### [facility] [address] [place], [address] Lymphocytes/100 WBC (Bld) 12.2 % Low 19-41 [facility] Comment on above: Performed By: #### L 500.2500, L3380.1000 #### [facility] [address] [place], [address] MCH (RBC) [Entitic mass] 30.4 pg Normal 27.0-32.0 [facility] Comment on above: Performed By: #### L 500.2500, L3380.1000 #### [facility] [address] [place], [address] MCHC (RBC) [Mass/Vol] 32.9 g/dL Normal 32-36 [facility] Comment on above: Performed By: #### L 500.2500, L3380.1000 #### [facility] [address] [place], [address] MCV (RBC) [Entitic vol] 92.5 fL Normal 81-99 [facility] Comment on above: Performed By: #### L 500.2500, L3380.1000 #### [facility] [address] [place], [address] Monocytes/100 WBC (Bld) 9.5 % Normal 0-10 [facility] Comment on above: Performed By: #### L 500.2500, L3380.1000 #### [facility] [address] [place], [address] Neutrophils/100 WBC (Bld) 71.6 % High 47-70 [facility] Comment on above: Performed By: #### L 500.2500, L3380.1000 #### [facility] [address] [place], [address] Nucleated RBC (Bld) [#/Vol] 0 10*3/uL Normal 0-5 [facility] Comment on above: Performed By: #### L 500.2500, L3380.1000 #### [facility] [address] [place], [address] Platelet mean volume (Bld) [Entitic vol] 10.6 fL Normal 6.2-12.0 [facility] Comment on above: Performed By: #### L 500.2500, L3380.1000 #### [facility] [address] [place], [address] Platelets (Bld) [#/Vol] 289 10*3/uL Normal 150-450 [facility] Comment on above: Performed By: #### L 500.2500, L3380.1000 #### [facility] [address] [place], [address] RBC (Bld) [#/Vol] 4.01 10*6/uL Low 4.2-5.4 [facility] Comment on above: Performed By: #### L 500.2500, L3380.1000 #### [facility] [address] [place], [address] RDW SD 43.7 fl Normal 35.1-43.9 [facility] Comment on above: Performed By: #### L 500.2500, L3380.1000 #### [facility] [address] [place], [address] WBC (Bld) [#/Vol] 7.1 10*3/uL Normal 4.4-11.0 [facility] Comment on above: Performed By: #### L 500.2500, L3380.1000 #### [facility] [address] [place], [address] Calculated very low density lipoprotein (VLDL) cholesterol measurementon 09-20-2024 Calculated very low density lipoprotein (VLDL) cholesterol measurement 32 mg/dL 5-40 [facility] Carbon dioxide, total [Moles /volume] in Central venous bloodon 09-20-2024 CO2 [Moles/Vol] 20.0 mmol/L Low 21.0-32.0 [facility] Chloride assayon 09-20-2024 Chloride [Moles/Vol] 109 mmol/L High 98-108 [facility] Comprehensive Metabolic Prof ilon 09-20-2024 Albumin [Mass/Vol] 3.7 g/dL Normal 3.4-4.8 [facility] Comment on above: Order Comment: Test( s) [id number]-Hmvfvkvbqc (FK506), Blood was developed and its performance characteristics determined by [facility]. It has not been cleared or approved by the Food and Drug Administration. Performed By: #### L 500.2500, L3380.1000 #### [facility] [address] [place], [place], [id number] (926) Albumin/Globulin [Mass ratio] 1.5 {ratio} Normal 0.9-2.4 [facility] Comment on above: Order Comment: Test( s) [id number]-Lvrxsoqujy (FK506), Blood was developed and its performance characteristics determined by [facility]. It has not been cleared or approved by the Food and Drug Administration. Performed By: #### L 500.2500, L3380.1000 #### [facility] [address] [place], [address] ALK PHOS 99 U/L Normal 35-104 [facility] Comment on above: Order Comment: Test( s) [id number]-Equzksrjyq (FK506), Blood was developed and its performance characteristics determined by [facility]. It has not been cleared or approved by the Food and Drug Administration. Performed By: #### L 500.2500, L3380.1000 #### [facility] [address] [place], [address] ALT [Catalytic activity/Vol] 16 U/L Normal <=34 [facility] Comment on above: Order Comment: Test( s) [id number]-Vworqeferp (FK506), Blood was developed and its performance characteristics determined by [facility]. It has not been cleared or approved by the Food and Drug Administration. Performed By: #### L 500.2500, L3380.1000 #### [facility] [address] [place], [address] AST [Catalytic activity/Vol] 18 U/L Normal <=31 [facility] Comment on above: Order Comment: Test( s) [id number]-Ywyukveljl (FK506), Blood was developed and its performance characteristics determined by [facility]. It has not been cleared or approved by the Food and Drug Administration. Performed By: #### L 500.2500, L3380.1000 #### [facility] [address] [place], [address] Bilirubin [Mass/Vol] 0.32 mg/dL Normal 0.00-1.30 [facility] Comment on above: Order Comment: Test( s) [id number]-Rmrqplypfb (FK506), Blood was developed and its performance characteristics determined by [facility]. It has not been cleared or approved by the Food and Drug Administration. Performed By: #### L 500.2500, L3380.1000 #### [facility] [address] [place], [address] BUN/CRE 17.1 RATIO Normal 10-20 [facility] Comment on above: Order Comment: Test( s) [id number]-Ufltfxxaks (FK506), Blood was developed and its performance characteristics determined by [facility]. It has not been cleared or approved by the Food and Drug Administration. Performed By: #### L 500.2500, L3380.1000 #### [facility] [address] [place], [address] Calcium [Mass/Vol] 9.9 mg/dL Normal 7.6-11.0 [facility] Comment on above: Order Comment: Test( s) [id number]-Nfmpukxpfi (FK506), Blood was developed and its performance characteristics determined by [facility]. It has not been cleared or approved by the Food and Drug Administration. Performed By: #### L 500.2500, L3380.1000 #### [facility] [address] [place], [address] Chloride [Moles/Vol] 109 mmol/L High 98-108 [facility] Comment on above: Order Comment: Test( s) [id number]-Kjufomqhll (FK506), Blood was developed and its performance characteristics determined by [facility]. It has not been cleared or approved by the Food and Drug Administration. Performed By: #### L 500.2500, L3380.1000 #### [facility] [address] [place], [address] CO2 [Moles/Vol] 20.0 mmol/L Low 21.0-32.0 [facility] Comment on above: Order Comment: Test( s) [id number]-Kczlizknfw (FK506), Blood was developed and its performance characteristics determined by [facility]. It has not been cleared or approved by the Food and Drug Administration. Performed By: #### L 500.2500, L3380.1000 #### [facility] [address] [place], [address] Creatinine [Mass/Vol] 1.50 mg/dL High 0.70-1.20 [facility] Comment on above: Order Comment: Test( s) [id number]-Hhpnmatvgn (FK506), Blood was developed and its performance characteristics determined by [facility]. It has not been cleared or approved by the Food and Drug Administration. Performed By: #### L 500.2500, L3380.1000 #### [facility] [address] [place], [address] GAP 11 Normal 5-15 [facility] Comment on above: Order Comment: Test( s) [id number]-Effhdddeyr (FK506), Blood was developed and its performance characteristics determined by [facility]. It has not been cleared or approved by the Food and Drug Administration. Performed By: #### L 500.2500, L3380.1000 #### [facility] [address] [place], [address] GFR/1.73 sq M.predicted among non-blacks MDRD (S/P/Bld) [Vol rate/Area] 39 mL/min/{1.73_m2} Low >60 [facility] Comment on above: Order Comment: Test( s) [id number]-Uocpuhdumo (FK506), Blood was developed and its performance characteristics determined by [facility]. It has not been cleared or approved by the Food and Drug Administration. Result Comment: mL/m in/1.73m2 CKD-EPI Creatinine Equation (2020) Performed By: #### L 500.2500, L3380.1000 #### [facility] [address] [place], [address] Globulin (S) [Mass/Vol] 2.4 g/dL Normal 2.2-4.2 [facility] Comment on above: Order Comment: Test( s) [id number]-Hocritxvfj (FK506), Blood was developed and its performance characteristics determined by [facility]. It has not been cleared or approved by the Food and Drug Administration. Performed By: #### L 500.2500, L3380.1000 #### [facility] [address] [place], [address] Glucose [Mass/Vol] 110 mg/dL High 70-99 [facility] Comment on above: Order Comment: Test( s) [id number]-Uqqmfsilin (FK506), Blood was developed and its performance characteristics determined by [facility]. It has not been cleared or approved by the Food and Drug Administration. Performed By: #### L 500.2500, L3380.1000 #### [facility] [address] [place], [address] Potassium [Moles/Vol] 4.3 mmol/L Normal 3.3-5.1 [facility] Comment on above: Order Comment: Test( s) [id number]-Fvufiiwams (FK506), Blood was developed and its performance characteristics determined by [facility]. It has not been cleared or approved by the Food and Drug Administration. Performed By: #### L 500.2500, L3380.1000 #### [facility] [address] [place], [address] Sodium [Moles/Vol] 140 mmol/L Normal 133-145 [facility] Comment on above: Order Comment: Test( s) [id number]-Cyfclbqths (FK506), Blood was developed and its performance characteristics determined by [facility]. It has not been cleared or approved by the Food and Drug Administration. Performed By: #### L 500.2500, L3380.1000 #### [facility] [address] [place], [address] T PROT 6.1 g/dL Normal 5.9-8.4 [facility] Comment on above: Order Comment: Test( s) [id number]-Yowsprfzvb (FK506), Blood was developed and its performance characteristics determined by [facility]. It has not been cleared or approved by the Food and Drug Administration. Performed By: #### L 500.2500, L3380.1000 #### [facility] [address] [place], [address] Urea nitrogen [Mass/Vol] 26 mg/dL High 4-19 [facility] Comment on above: Order Comment: Test( s) [id number]-Ggxwxgtbeq (FK506), Blood was developed and its performance characteristics determined by [facility]. It has not been cleared or approved by the Food and Drug Administration. Performed By: #### L 500.2500, L3380.1000 #### [facility] [address] [place], [address] Eosinophil percentageon 09-04 Eosinophils/100 WBC (Bld) 5.2 % High 0-5 [facility] Erythrocyte distribution wid th ratioon 09-20-2024 Erythrocyte distribution width (RBC) [Ratio] 12.9 % 11.6-14.6 [facility] Erythrocyte distribution wid th standard deviationon 09-20-2024 Erythrocyte distribution width (RBC) [Ratio] 43.7 fl 35.1-43.9 [facility] Glomerular filtration rate ( GFR) estimation/1.73 sq m using serum, plasma, or whole bon 09-20-2024 GFR/1.73 sq M.predicted among non-blacks MDRD (S/P/Bld) [Vol rate/Area] 39 mL/min/{1.73_m2} Low >60 [facility] Comment on above: mL/min/1.73m2 CKD-EP I Creatinine Equation (2020) Hematocrit Auto (Bld) [Volum e fraction]on 09-20-2024 Hematocrit (Bld) [Volume fraction] 37.1 % 37-47 [facility] Hemoglobin measurementon Hemoglobin (Bld) [Mass/Vol] 12.2 g/dL 12.0-15.0 [facility] Immature granulocytes/100 WB C Auto (Bld)on 09-20-2024 Immature granulocytes/100 WBC (Bld) 0.400 % 0.0-0.9 [facility] Comment on above: IG% - Immature Granu locytes (promyelocytes, myelocytes and metamyelocytes) > 1% indicates that a LEFT SHIFT is Present. LDL calc ser/plason 09-21-19 25 Cholesterol in LDL [Mass/Vol] 48 mg/dL [facility] Comment on above: Yczzntqwdd=276-664 m g/dL & Higher Rvyn=082 mg/dL or greater Laboratory - Chemistry and C hemistry - challengeon 09-20-2024 AST [Catalytic activity/Vol] 18 U/L <32 [facility] Lipid Profileon 09-20-2024 CHOL:HDL 2.33 Normal [facility] Comment on above: Order Comment: Test( s) [id number]-Seejehiqoe (FK506), Blood was developed and its performance characteristics determined by [employer]. It has not been cleared or approved by the Food and Drug Administration. Performed By: #### L 500.2500, L3380.1000 #### [facility] [address] [place] [address], [address] Cholesterol [Mass/Vol] 140 mg/dL Normal <=200 [facility] Comment on above: Order Comment: Test( s) [id number]-Ozxpmnehih (FK506), Blood was developed and its performance characteristics determined by [facility]. It has not been cleared or approved by the Food and Drug Administration. Result Comment: Chol esterol level, Desirable <200 mg/dL Borderline high cholesterol 200-239 mg/dL High cholesterol >=240 mg/dL Recommendations of the NCEP Adult Treatment Panel for the following risk-cutoff thresholds for the [place] population. Performed By: #### L 500.2500, L3380.1000 #### [facility] [address] [place], [address] Cholesterol in HDL [Mass/Vol] 60 mg/dL Normal [facility] Comment on above: Order Comment: Test( s) [id number]-Iucvwdwhxm (FK506), Blood was developed and its performance characteristics determined by [facility]. It has not been cleared or approved by the Food and Drug Administration. Result Comment: Linda onal Cholesterol Education Program (NCEP) guidelines: <40 mg/dL: Low HDL-cholesterol (major risk factor for CHD) >= 60 mg/dL: High HDL-cholesterol (negative risk factor for CHD) HDL-cholesterol is affected by a number of factors, e.g. smoking, exercise, hormones, sex and age. Performed By: #### L 500.2500, L3380.1000 #### [facility] [address] [place], [address] Cholesterol in LDL [Mass/Vol] 48 mg/dL Normal [facility] Comment on above: Order Comment: Test( s) [id number]-Eesbwwwnkg (FK506), Blood was developed and its performance characteristics determined by [facility]. It has not been cleared or approved by the Food and Drug Administration. Result Comment: Bord xikuyn=236-612 mg/dL Higher Gfpw=482 mg/dL or greater Performed By: #### L 500.2500, L3380.1000 #### [facility] [address] [place], [address] Cholesterol in VLDL [Mass/Vol] 32 mg/dL Normal 5-40 [facility] Comment on above: Order Comment: Test( s) [id number]-Fgdywrmspa (FK506), Blood was developed and its performance characteristics determined by [facility]. It has not been cleared or approved by the Food and Drug Administration. Performed By: #### L 500.2500, L3380.1000 #### [facility] [address] [place], [place], [address] Triglyceride [Mass/Vol] 158 mg/dL Normal [facility] Comment on above: Order Comment: Test( s) [id number]-Bheljbcknr (FK506), Blood was developed and its performance characteristics determined by [employer]. It has not been cleared or approved by the Food and Drug Administration. Result Comment: The drugs N-Acetylcysteine and Metamizole may falsely depress this assay. Normal range: <150 mg/dL Borderline High: 150-199 mg/dL High: 200-499 mg/dL Very High: >500 mg/dL Performed By: #### L 500.2500, L3380.1000 #### [facility] [address] [place], [place], [address] MCV (mean corpuscular volume ) determinationon 09-20-2024 MCV (RBC) [Entitic vol] 92.5 fL 81-99 [facility] Magnesiumon 09-20-2024 Magnesium [Mass/Vol] 1.9 mg/dL Normal 1.5-2.2 [facility] Comment on above: Order Comment: RED T OP/ SERUM/RT Performed By: #### L 3380.1000, L500.3600 #### [facility] [address] [place], [place], [address] Magnesium measurement (mass/ volume)on 09-20-2024 Magnesium (Unsp spec) [Mass/Vol] 1.9 mg/dL 1.5-2.2 [facility] Mean corpuscular hemoglobin (MCH) determinationon 09-20-2024 MCH (RBC) [Entitic mass] 30.4 pg 27.0-32.0 [facility] Mean corpuscular hemoglobin concentration (MCHC) determinationon 09-20-2024 MCHC (RBC) [Mass/Vol] 32.9 g/dL 32-36 [facility] Mean platelet volume determi nationon 09-20-2024 Platelet mean volume (Bld) [Entitic vol] 10.6 fL 6.2-12.0 [facility] Monocyte percentageon 2024 Monocytes/100 WBC (Bld) 9.5 % 0-10 [facility] Neutrophil percentageon 04- 7-2024 Neutrophils/100 WBC (Bld) 71.6 % High 47-70 [facility] Nucleated red blood cell per centageon 09-20-2024 Nucleated RBC/100 WBC (Bld) [Ratio] 0 % 0-5 [facility] Phosphoruson 09-20-2024 Phosphate [Mass/Vol] 1.8 mg/dL Low 2.7-4.5 [facility] Comment on above: Order Comment: Test( s) [id number]-Bftlxvygnm (FK506), Blood was developed and its performance characteristics determined by [employer]. It has not been cleared or approved by the Food and Drug Administration. Performed By: #### L 500.2500, L3380.1000 #### [facility] [address] [place], [address] Platelet counton 09-20-2024 Platelets (Bld) [#/Vol] 289 10*3/uL 150-450 [facility] Potassium measurement (mass/ volume)on 09-20-2024 Potassium (Unsp spec) [Mass/Vol] 4.3 mmol/L 3.3-5.1 [facility] Protein+Creatinine Ratio,Uri neon 09-20-2024 PROT:CRE RATIO 87 mg/g CRE Normal 0-200 [facility] Comment on above: Performed By: #### L 500.2500, L3380.1000 #### [facility] [address] [place], [address] Protein (U) [Mass/Vol] 6.6 mg/dL Normal 0.0-12.0 [facility] Comment on above: Performed By: #### L 500.2500, L3380.1000 #### [facility] [address] [place], [address] UR CREAT 75.80 mg/dL Normal 28.00-217. 00 [facility] Comment on above: Performed By: #### L 500.2500, L3380.1000 #### [facility] [address] [place] [place], [address] RBC Auto (Bld) [#/Vol]on RBC (Bld) [#/Vol] 4.01 10*6/uL Low 4.2-5.4 [facility] Random urine creatinine osei urement (mass/volume)on 09-20-2024 Creatinine Unsp time (U) [Mass/Vol] 75.80 mg/dL 28.00-217. 00 [facility] Screening total cholesterol/ high density lipoprotein (HDL) cholesterol ratioon 09-20-2024 Cholesterol.total/Cho lesterol in HDL [Mass ratio] 2.33 {ratio} [facility] Serum creatinine measurement (mass/volume)on 09-20-2024 Creatinine [Mass/Vol] 1.50 mg/dL High 0.70-1.20 [facility] Serum globulin measurementon 09-20-2024 Globulin (S) [Mass/Vol] 2.4 g/dL 2.2-4.2 [facility] Serum glucose measurement (m ass/volume)on 09-20-2024 Glucose [Mass/Vol] 110 mg/dL High 70-99 [facility] Serum or plasma alanine dugan otransferase (ALT) measurementon 09-20-2024 ALT [Catalytic activity/Vol] 16 U/L <35 [facility] Serum or plasma albumin osei urement (mass/volume)on 09-20-2024 Albumin [Mass/Vol] 3.7 g/dL 3.4-4.8 [facility] Serum or plasma albumin/glob ulin mass ratioon 09-20-2024 Albumin/Globulin [Mass ratio] 1.5 {ratio} 0.9-2.4 [facility] Serum or plasma alkaline simran sphatase measurementon 09-20-2024 ALP [Catalytic activity/Vol] 99 U/L 35-104 [facility] Serum or plasma calcium osei urement (mass/volume)on 09-20-2024 Calcium [Mass/Vol] 9.9 mg/dL 7.6-11.0 [facility] Comment on above: *Additional results available. Contact laboratory/see report* Serum or plasma cholesterol in HDL measurement (mass/volume)on 09-20-2024 Cholesterol in HDL [Mass/Vol] 60 mg/dL >40 [facility] Comment on above: National Cholesterol Education Program (NCEP) guidelines:<40 mg/dL: Low HDL-cholesterol (major risk factor for CHD)>= 60 mg/dL: High HDL-cholesterol (negative risk factor for CHD)HDL-cholesterol is affected by a number of factors, e.g. smoking, exercise, hormones, sex and age. Serum or plasma cholesterol measurement (mass/volume)on 09-20-2024 Cholesterol [Mass/Vol] 140 mg/dL <201 [facility] Comment on above: Cholesterol level, D esirable <200 mg/dLBorderline high cholesterol 200-239 mg/dLHigh cholesterol >=240 mg/dLRecommendations of the NCEP Adult Treatment Panel for the following risk-cutoff thresholds for the [place] population. Serum or plasma urea nitroge n measurement (mass/volume)on 09-20-2024 Urea nitrogen [Mass/Vol] 26 mg/dL High 4-19 [facility] Sodium levelon 09-20-2024 Sodium [Moles/Vol] 140 mmol/L 133-145 [facility] Total proteinon 09-20-2024 Protein [Mass/Vol] 6.1 g/dL 5.9-8.4 [facility] Triglycerides measurementon 09-20-2024 Triglyceride [Mass/Vol] 158 mg/dL <199 [facility] Comment on above: The drugs N-Acetylcy steine and Metamizole may falsely depress this assay. Normal range: <150 mg/dLBorderline High: 150-199 mg/dLHigh: 200-499 mg/dLVery High: >500 mg/dL Urine protein measurement (m ass/volume)on 09-20-2024 Protein (U) [Mass/Vol] 6.6 mg/dL 0.0-12.0 [facility] Urine protein/creatinine mas s ratioon 09-20-2024 Protein/Creatinine (U) [Mass ratio] 87 mg/g CRE 0-200 [facility] White blood cell (WBC) count on 09-20-2024 WBC (Bld) [#/Vol] 7.1 10*3/uL 4.4-11.0 [facility] BK VIRUS DNA QN, PCR, PLASMA Ordered By: Angie Pepper on 09-13-2024 BK Viral Load By PCR,(Log) NINF [facility] BK virus DNA NORA+probe Qn [facility] Interpretation and review of laboratory results Normal [facility] This test was perfor med using a real time PCR assay. The dynamic range for this assay is 21.5-100,000,000 IU/mL (1.33-8.00 Log IU/mL). [facility] ALLOSCREEN RECIPIENT (POST T X PRA)on 09-12-2024 AB SPECIFICITY CLASS COMMENT Antibody Specificity testing performed by [facility]. cPRA calculation based on identification of HLA antibody specificities at MFI >2000 and/or presence of CREG antibodies. Normal [facility] Comment on above: Result Comment: Some of the reagents used for testing in the Clinical Histocompatibility Laboratory have yet to be approved by the FDA. Our certification by CLIA to perform high complexity tests allows us to use these reagents in the context of a stringent QC program, and obviates the need for FDA approval.Testing performed by the [facility] Clinical Histocompatibility Laboratory. [facility] number: [id number]. CLIA number: [id number], Director: Lawson Christianson, PhD, F([facility]). Performed By: #### A LLOR #### [facility] (DEFAULT) [address] [address] ANTIBODY SPECIFICITY INTERPRETATION Detected Normal [facility] Comment on above: Performed By: #### A LLOR #### [facility] (DEFAULT) [address] [address] CLASS I SPECIFICITIES A:2 68 69 Normal [facility] Comment on above: Performed By: #### A LLOR #### [facility] (DEFAULT) [address] [address] CLASS II SPECIFICITIES Not detected Normal [facility] Comment on above: Performed By: #### A LLOR #### [facility] (DEFAULT) [address] [address] cPRA 54 % High 0 [facility] Comment on above: Performed By: #### A LLOR #### [facility] (DEFAULT) [address] [place] [address] BK VIRUS DNA QN, PCR, PLASMA on 09-12-2024 BK Viral Load By PCR,(Log) < Normal <1.33 [facility] Comment on above: Order Comment: This test was performed using a real time PCR assay. The dynamic range for this assay is 21.5-100,000,000 IU/mL (1.33-8.00 Log IU/mL). Performed By: #### B KBP #### [facility] (DEFAULT) [address] [address] Bk Viral Load, Plasma <21.5 Normal <21.5 [facility] Comment on above: Order Comment: This test was performed using a real time PCR assay. The dynamic range for this assay is 21.5-100,000,000 IU/mL (1.33-8.00 Log IU/mL). Performed By: #### B KBP #### [facility] (DEFAULT) [address] [address] URINE PROTEIN/CREA RATIO, RA NDOMon 09-12-2024 Creatinine (24H U) [Mass/Vol] 162.47 mg/dL [facility] Protein Unsp time (U) [Mass/Vol] 13 mg/dL [facility] Protein/Creatinine (U) [Mass ratio] 0.08 mg/mg [facility] Creatinine (U) [Mass/Vol] 162.47 mg/dL Normal [facility] Comment on above: Performed By: #### U PCR #### [facility] (DEFAULT) [address] [address] Prot/Creat Ratio 0.080 mg/mg Normal [facility] Comment on above: Performed By: #### U PCR #### [facility] (DEFAULT) [address] [address] Protein Ql (U) 13 mg/dL Normal [facility] Comment on above: Performed By: #### U PCR #### [facility] (DEFAULT) [address] [place] [address] Tacrolimus (Prograf)on 06-07 Tacrolimus (Bld) [Mass/Vol] 7.4 ng/mL Normal 2.0-20.0 [facility] Comment on above: Order Comment: Test( s) [id number]-Qnhjovwjtl (FK506), Bloodwas developed and its performance characteristicsdetermined by [employer]. It has not been cleared or approvedby the Food and Drug Administration. Result Comment: Trou gh (immediately following transplant) 15.0 Trough (steady state, 2 weeks or more after transplant): 3.0 - 8.0 Performed by LC-MS/MS technology. Performed at: [address] [id number] Consumer Insights Specialist: Amaury Dubois MD, Phone: [phone] Performed By: #### L 3380.1000, L501.1800, L500.2500, L100.0500, L501.0900, L501.2300 #### [facility] [address] [place], [address] Basic Metabolic Profile (BMP )on 06-04-2024 BUN/CRE 18.9 RATIO Normal 10-20 [facility] Comment on above: Performed By: #### L 3380.1000, L500.3600 #### [facility] [address] [place], [address] CA,Total 10.0 mg/dL Normal 8.5-10.1 [facility] Comment on above: Performed By: #### L 3380.1000, L500.3600 #### [facility] [address] [place], [address] Chloride [Moles/Vol] 116 mmol/L High 98-107 [facility] Comment on above: Performed By: #### L 3380.1000, L500.3600 #### [facility] [address] [place], [address] CO2 [Moles/Vol] 23.0 mmol/L Normal 21.0-32.0 [facility] Comment on above: Performed By: #### L 3380.1000, L500.3600 #### [facility] [address] [place], [address] Creatinine [Mass/Vol] 1.32 mg/dL High 0.55-1.02 [facility] Comment on above: Result Comment: The validity of the calculated GFR GFRAA in patients over 70 years has not been determined. Clinical correlation is essential. Performed By: #### L 3380.1000, L500.3600 #### [facility] [address] [place], [address] EST GFR - AA 53 mL/min Low >60 [facility] Comment on above: Result Comment: Afri can [place]o GFR Calc Performed By: #### L 3380.1000, L500.3600 #### [facility] [address] [place], [address] GAP 2 Low 5-15 [facility] Comment on above: Performed By: #### L 3380.1000, L500.3600 #### [facility] [address] [place], [address] GFR/1.73 sq M.predicted among non-blacks MDRD (S/P/Bld) [Vol rate/Area] 43 mL/min/{1.73_m2} Low >60 [facility] Comment on above: Result Comment: Non- GFR Calc Performed By: #### L 3380.1000, L500.3600 #### [facility] [address] [place], [address] Glucose [Mass/Vol] 115 mg/dL High 74-106 [facility] Comment on above: Result Comment: Fast ing Glucose result from 100 to 125 mg/dL suggests IMPAIRED HOMEOSTASIS per A.D.A. criteria. Performed By: #### L 3380.1000, L500.3600 #### [facility] [address] [place], [address] Potassium [Moles/Vol] 4.3 mmol/L Normal 3.5-5.1 [facility] Comment on above: Performed By: #### L 3380.1000, L500.3600 #### [facility] [address] [place], [address] Sodium [Moles/Vol] 141 mmol/L Normal 136-145 [facility] Comment on above: Performed By: #### L 3380.1000, L500.3600 #### [facility] [address] [place], [address] Urea nitrogen [Mass/Vol] 25 mg/dL High 7-18 [facility] Comment on above: Performed By: #### L 3380.1000, L500.3600 #### [facility] [address] [place], [address] CBC-Complete Blood Cnt No Di ffon 06-04-2024 Erythrocyte distribution width (RBC) [Ratio] 13.0 % Normal 11.6-14.6 [facility] Comment on above: Performed By: #### L 3380.1000, L500.3600 #### [facility] [address] [place], [address] Hematocrit (Bld) [Volume fraction] 40.4 % Normal 37-47 [facility] Comment on above: Performed By: #### L 3380.1000, L500.3600 #### [facility] [address] [place], [address] Hemoglobin (Bld) [Mass/Vol] 13.0 g/dL Normal 12.0-15.0 [facility] Comment on above: Performed By: #### L 3380.1000, L500.3600 #### [facility] [address] [place], [address] MCH (RBC) [Entitic mass] 30.0 pg Normal 27.0-32.0 [facility] Comment on above: Performed By: #### L 3380.1000, L500.3600 #### [facility] [address] [place], [address] MCHC (RBC) [Mass/Vol] 32.2 g/dL Normal 32-36 [facility] Comment on above: Performed By: #### L 3380.1000, L500.3600 #### [facility] [address] [place], [address] MCV (RBC) [Entitic vol] 93.3 fL Normal 81-99 [facility] Comment on above: Performed By: #### L 3380.1000, L500.3600 #### [facility] [address] [place], [address] Platelet mean volume (Bld) [Entitic vol] 10.7 fL Normal 6.2-12.0 [facility] Comment on above: Performed By: #### L 3380.1000, L500.3600 #### [facility] [address] [place], [address] Platelets (Bld) [#/Vol] 289 10*3/uL Normal 150-450 [facility] Comment on above: Performed By: #### L 3380.1000, L500.3600 #### [facility] [address] [place], [address] RBC (Bld) [#/Vol] 4.33 10*6/uL Normal 4.2-5.4 [facility] Comment on above: Performed By: #### L 3380.1000, L500.3600 #### [facility] [address] [place], [address] RDW SD 44.1 fl High 35.1-43.9 [facility] Comment on above: Performed By: #### L 3380.1000, L500.3600 #### [facility] [address] [place], [address] WBC (Bld) [#/Vol] 8.1 10*3/uL Normal 4.4-11.0 [facility] Comment on above: Performed By: #### L 3380.1000, L500.3600 #### [facility] [address] [place], [address] Magnesiumon 06-04-2024 Magnesium [Mass/Vol] 1.7 mg/dL Normal 1.6-2.6 [facility] Comment on above: Performed By: #### L 3380.1000, L501.1800, L500.2500, L100.0500, L501.0900, L501.2300 #### [facility] [address] [place], [address] Phosphoruson 06-04-2024 Phosphate [Mass/Vol] 1.6 mg/dL Low 2.5-4.9 [facility] Comment on above: Performed By: #### L 3380.1000, L500.3600 #### [facility] [address] [place], [address] SCRN MAMM (CAD)W/HA BILATo n 05-18-2024 SCRN MAMM (CAD)W/HA BILAT [facility] Imaging Services [address] [place] [address] SCRN MAMM (CAD)W/HA BILAT MR#: [id number] Acct: [id number] Name: CATE FOX Rep #: [id number] : 1960 F 63 From: Jourdan peres MD PCP: Dr. Carson Russell MD Status: REG CLI Study: SCRN MAMM (CAD)W/HA BILAT Date of Exam: 05/06 08/27 Exam# [id number] Ordering Dr: Debra Astudillo NP BROADCAST SUPERVISOR -C :[id number] MAMMOGRAPHY - BILATERAL SCREENING REASON FOR EXAM: Female, 63 years old. Routine annual screening examination. PERTINENT HISTORY: Non-contributory. TECHNIQUE: Digital bilateral breast ha (3D mammographic acquisition) in the CC and MLO projections. 2-D mediolateral oblique (MLO) and craniocaudad (CC) views of both breasts were obtained. CAD: Full Field Digital Mammography with Computer Added Detection was performed. COMPARISON: Comparison is made with prior study dated May 16, 2023 and May 13, 2022. FINDINGS: Breast Composition: The breasts are almost entirely fatty. There are no dominant masses or suspicious calcifications. Stable bilateral secretory calcifications. Stable 9 mm well-defined nodule in the anterior upper outer aspect of the left breast suggestive of a small lymph node. Stable prominent venous markings in the breasts. No other significant abnormalities are identified. There has been no significant change since the prior study. BI/SCRN MAMM (CAD)W/HA BILAT IMPRESSION: Stable bilateral screening mammogram. Yearly follow-up mammogram recommended. (A) ASSESSMENT CATEGORY: BIRADS Category 2: Benign. A letter regarding these results will be sent to the patient by the facility within 30 days. Approximately 10% of breast cancers are not detected by mammography. A normal mammogram should not delay biopsy of a clinically suspicious abnormality. [id number] Electronically Signed: Jourdan Marquis MD at 8:39 EST , CC: SONIDO Astudillo; Dr. Carson Russell MD Grout Machine Tender: Signed Normal [facility] PAP IG HPV APTIMA 16/18,45on 05-12-2024 ADEQ Comment Normal . [facility] Comment on above: Order Comment: Test( s) [id number]-Zwazrskymk (FK506), Blood was developed and its performance characteristics determined by [facility]. It has not been cleared or approved by the Food and Drug Administration. Result Comment: Sati sfactory for evaluation. Endocervical and/or squamous metaplastic cells (endocervical component) are present. Performed By: #### L 3380.1000, L500.3600 #### [facility] [address] [place], [place], [id number] COMM . Normal . [facility] Comment on above: Order Comment: Test( s) [id number]-Jyckbwiuti (FK506), Blood was developed and its performance characteristics determined by [facility]. It has not been cleared or approved by the Food and Drug Administration. Performed By: #### L 3380.1000, L500.3600 #### [facility] [address] [place], [place], [address] COMMENT Comment Normal . [facility] Comment on above: Order Comment: Test( s) 414885-Lcqzyvmfki (FK506), Blood was developed and its performance characteristics determined by [facility]. It has not been cleared or approved by the Food and Drug Administration. Result Comment: This liquid based ThinPrep(R) pap test was screened with the use of an image guided system. Performed By: #### L 3380.1000, L500.3600 #### [facility] [address] [place], [place], [address] DIAG Comment Normal . [facility] Comment on above: Order Comment: Test( s) [id number]-Wrgtotwsnr (FK506), Blood was developed and its performance characteristics determined by [facility]. It has not been cleared or approved by the Food and Drug Administration. Result Comment: NEGA TIVE FOR INTRAEPITHELIAL LESION OR MALIGNANCY. Performed By: #### L 3380.1000, L500.3600 #### [facility] [address] [place], [address] HPV APTIMA, HR Negative Normal Negative [facility] Comment on above: Order Comment: Test( s) 610335-Yejwjketcf (FK506), Blood was developed and its performance characteristics determined by [facility]. It has not been cleared or approved by the Food and Drug Administration. Result Comment: This nucleic acid amplification test detects fourteen high- risk HPV types (16,18,31,33,35,39,45,51,52,56,58,59,66,68) without differentiation. Performed By: #### L 3380.1000, L500.3600 #### [facility] [address] [place], [address] HPV Enedelia Rfx Comment Normal . [facility] Comment on above: Order Comment: Test( s) [id number]-Kswijzfetb (FK506), Blood was developed and its performance characteristics determined by [facility]. It has not been cleared or approved by the Food and Drug Administration. Result Comment: Crit meme not met, HPV Genotype not performed. Performed at: - [address] [id number] Consumer Insights Specialist: Prabha Deras MD, Phone: [phone] Performed at: = - [facility] [id number] Consumer Insights Specialist: Prabha Deras MD, Phone: [phone] Performed By: #### L 3380.1000, L500.3600 #### [facility] [address] [place], [address] PAPSMR Comment Normal . [facility] Comment on above: Order Comment: Test( s) 686830-Bhrxltfrji (FK506), Blood was developed and its performance characteristics determined by [facility]. It has not been cleared or approved by the Food and Drug Administration. Result Comment: The Pap smear is a screening test designed to aid in the detection of premalignant and malignant conditions of the uterine cervix. It is not a diagnostic procedure and should not be used as the sole means of detecting cervical cancer. Both false-positive and false-negative reports do occur. Performed By: #### L 3380.1000, L500.3600 #### [facility] [address] [place], [address] PERFORM Comment Normal . [facility] Comment on above: Order Comment: Test( s) [id number]-Skapbhpwuo (FK506), Blood was developed and its performance characteristics determined by [facility]. It has not been cleared or approved by the Food and Drug Administration. Result Comment: Jese Bowman, Ethylbenzene Converter Operator (ASCP) Performed By: #### L 3380.1000, L500.3600 #### [facility] [address] [place], [address] Tacrolimus (Prograf)on 05-09 Tacrolimus (Bld) [Mass/Vol] 6.8 ng/mL Normal 2.0-20.0 [facility] Comment on above: Order Comment: Test( s) [id number]-Ozwbubrhnb (FK506), Blood was developed and its performance characteristics determined by [facility]. It has not been cleared or approved by the Food and Drug Administration. Result Comment: Trou gh (immediately following transplant) 15.0 Trough (steady state, 2 weeks or more after transplant): 3.0 - 8.0 Performed by LC-MS/MS technology. Performed at: [facility] [address] [id number] Consumer Insights Specialist: Amaury Dubois MD, Phone: [phone] Performed By: #### L 3380.1000, L500.3600 #### [facility] [address] [place], [place], [id number] Vitamin D 1,25-Dihydroxyon 1 07-10-2023 VIT D 1,25 DIHY 44.8 pg/mL Normal 24.8-81.5 [facility] Comment on above: Result Comment: Perf ormed at: [facility] [address] [id number] Consumer Insights Specialist: Amaury Dubois MD, Phone: [phone] Performed By: #### L 3380.1000, L500.3600 #### [facility] [address] [place], [address] CBC-Complete Blood Cnt No Di ffon 05-07-2024 Erythrocyte distribution width (RBC) [Ratio] 13.0 % Normal 11.6-14.6 [facility] Comment on above: Performed By: #### L 3380.1000, L500.3600 #### [facility] [address] [place], [address] Hematocrit (Bld) [Volume fraction] 39.6 % Normal 37-47 [facility] Comment on above: Performed By: #### L 3380.1000, L500.3600 #### [facility] [address] [place], [address] Hemoglobin (Bld) [Mass/Vol] 12.7 g/dL Normal 12.0-15.0 [facility] Comment on above: Performed By: #### L 3380.1000, L500.3600 #### [facility] [address] [place], [address] MCH (RBC) [Entitic mass] 29.7 pg Normal 27.0-32.0 [facility] Comment on above: Performed By: #### L 3380.1000, L500.3600 #### [facility] [address] [place], [address] MCHC (RBC) [Mass/Vol] 32.1 g/dL Normal 32-36 [facility] Comment on above: Performed By: #### L 3380.1000, L500.3600 #### [facility] [address] [place], [address] MCV (RBC) [Entitic vol] 92.5 fL Normal 81-99 [facility] Comment on above: Performed By: #### L 3380.1000, L500.3600 #### [facility] [address] [place], [address] Platelet mean volume (Bld) [Entitic vol] 10.4 fL Normal 6.2-12.0 [facility] Comment on above: Performed By: #### L 3380.1000, L500.3600 #### [facility] [address] [place], [address] Platelets (Bld) [#/Vol] 280 10*3/uL Normal 150-450 [facility] Comment on above: Performed By: #### L 3380.1000, L500.3600 #### [facility] [address] [place], [address] RBC (Bld) [#/Vol] 4.28 10*6/uL Normal 4.2-5.4 [facility] Comment on above: Performed By: #### L 3380.1000, L500.3600 #### [facility] [address] [place], [address] RDW SD 43.6 fl Normal 35.1-43.9 [facility] Comment on above: Performed By: #### L 3380.1000, L500.3600 #### [facility] [address] [place], [address] WBC (Bld) [#/Vol] 8.9 10*3/uL Normal 4.4-11.0 [facility] Comment on above: Performed By: #### L 3380.1000, L500.3600 #### [facility] [address] [place], [address] Comprehensive Metabolic Prof ncon 05-07-2024 Albumin [Mass/Vol] 3.4 g/dL Normal 3.2-5.0 [facility] Comment on above: Performed By: #### L 3380.1000, L500.3600 #### [facility] [address] [place], [address] Albumin/Globulin [Mass ratio] 1.1 {ratio} Normal 0.9-2.4 [facility] Comment on above: Performed By: #### L 3380.1000, L500.3600 #### [facility] [address] [place], [address] ALK P 98 U/L Normal 45-117 [facility] Comment on above: Performed By: #### L 3380.1000, L500.3600 #### [facility] [address] [place], [address] ALT [Catalytic activity/Vol] 23 U/L Normal 13-56 [facility] Comment on above: Performed By: #### L 3380.1000, L500.3600 #### [facility] [address] [place], [address] AST [Catalytic activity/Vol] 11 U/L Low 15-37 [facility] Comment on above: Performed By: #### L 3380.1000, L500.3600 #### [facility] [address] [place], [address] Bilirubin [Mass/Vol] 0.50 mg/dL Normal 0.20-1.00 [facility] Comment on above: Result Comment: For patients on eltrombopag therapy, use of Dimension [place] TBIL is not recommended. Performed By: #### L 3380.1000, L500.3600 #### [facility] [address] [place], [address] BUN/CRE 22.9 RATIO High 10-20 [facility] Comment on above: Performed By: #### L 3380.1000, L500.3600 #### [facility] [address] [place], [address] CA,Total 11.1 mg/dL High 8.5-10.1 [facility] Comment on above: Performed By: #### L 3380.1000, L500.3600 #### [facility] [address] [place], [address] Chloride [Moles/Vol] 113 mmol/L High 98-107 [facility] Comment on above: Performed By: #### L 3380.1000, L500.3600 #### [facility] [address] [place], [address] CO2 [Moles/Vol] 22.0 mmol/L Normal 21.0-32.0 [facility] Comment on above: Performed By: #### L 3380.1000, L500.3600 #### [facility] [address] [place], [address] Creatinine [Mass/Vol] 1.40 mg/dL High 0.55-1.02 [facility] Comment on above: Result Comment: The validity of the calculated GFR GFRAA in patients over 70 years has not been determined. Clinical correlation is essential. Performed By: #### L 3380.1000, L500.3600 #### [facility] [address] [place], [address] EST GFR - AA 49 mL/min Low >60 [facility] Comment on above: Result Comment: Afri can Lao GFR Calc Performed By: #### L 3380.1000, L500.3600 #### [facility] [address] [place], [address] GAP 6 Normal 5-15 [facility] Comment on above: Performed By: #### L 3380.1000, L500.3600 #### [facility] [address] [place], [address] GFR/1.73 sq M.predicted among non-blacks MDRD (S/P/Bld) [Vol rate/Area] 41 mL/min/{1.73_m2} Low >60 [facility] Comment on above: Result Comment: Non- GFR Calc Performed By: #### L 3380.1000, L500.3600 #### [facility] [address] [place], [address] Globulin (S) [Mass/Vol] 3.0 g/dL Normal 2.2-4.2 [facility] Comment on above: Performed By: #### L 3380.1000, L500.3600 #### [facility] [address] [place], [address] Glucose [Mass/Vol] 116 mg/dL High 74-106 [facility] Comment on above: Result Comment: Fast ing Glucose result from 100 to 125 mg/dL suggests IMPAIRED HOMEOSTASIS per A.D.A. criteria. Performed By: #### L 3380.1000, L500.3600 #### [facility] [address] [place], [address] Potassium [Moles/Vol] 4.3 mmol/L Normal 3.5-5.1 [facility] Comment on above: Performed By: #### L 3380.1000, L500.3600 #### [facility] [address] [place], [address] Sodium [Moles/Vol] 141 mmol/L Normal 136-145 [facility] Comment on above: Performed By: #### L 3380.1000, L500.3600 #### [facility] [address] [place], [address] T PROT 6.4 g/dL Normal 6.4-8.2 [facility] Comment on above: Performed By: #### L 3380.1000, L500.3600 #### [facility] [address] [place], [address] Urea nitrogen [Mass/Vol] 32 mg/dL High 7-18 [facility] Comment on above: Performed By: #### L 3380.1000, L500.3600 #### [facility] [address] [place], [address] Magnesiumon 05-07-2024 Magnesium [Mass/Vol] 1.9 mg/dL Normal 1.6-2.6 [facility] Comment on above: Performed By: #### L 3380.1000, L500.3600 #### [facility] [address] [place], [address] Microalb:Creat Ratio,Random URon 05-07-2024 MALB:CRE TNP Normal <30 mg/g CRE [facility] Comment on above: Performed By: #### L 3380.1000, L500.3600 #### [facility] [address] [place], [address] MICROALBUMIN,UR < 5.0 Normal NO RANGE EST. [facility] Comment on above: Performed By: #### L 3380.1000, L500.3600 #### [facility] [address] 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: No Is patient in pain?: No Allergies cephalexin Allergy (Mild, Verified 05/07/24 09:08) rash codeine Adverse Reaction (Verified 05/07/24 09:08) Nausea Medications ???Medication ???Instructions ???Recorded ???Confirmed ???Type allopurinol 100 mg tablet 100 mg PO MOWEFR gout 09/01/16 05/07/24 History albuterol sulfate 90 mcg/actuation 2 puff inhalation Q6H PRN Wheezing 12/27/19 05/07/24 History aerosol inhaler aspirin 81 mg tablet,delayed 81 mg PO DAILY 07/15/20 05/07/24 History release (Adult Aspirin Regimen) magnesium oxide 400 mg PO BID 12/03/21 05/07/24 History tacrolimus 1 mg capsule, See Rx Instructions PO Q12H 03/25/22 05/07/24 History immediate-release mycophenolate sodium 180 mg 180 mg PO BID 11/09/22 05/07/24 History tablet,delayed release gabapentin 100 mg capsule 100 mg PO DAILY 05/03/23 05/07/24 History sulfamethoxazole 800 1 tab PO MOWEFR 05/09/23 05/07/24 History mg-trimethoprim 160 mg tablet cholecalciferol (vitamin D3) 1,250 1,250 mcg PO QWEEK 01/28/24 05/07/24 History mcg (50,000 unit) capsule coenzyme Q10 100 mg capsule 100 mg PO DAILY 01/28/24 05/07/24 History atorvastatin 20 mg tablet 20 mg PO QHS #90 TABLETS 04/27/24 05/07/24 Rx Is last menstrual period known: No Post menopausal: Yes Patient : No : No PFSH Medical History (Updated 05/07/24 @ 09:38 by Debra Astudillo BROADCAST SUPERVISOR, BROADCAST SUPERVISOR-C) COVID-19 Wears glasses Wears partial dentures Wears dentures Post-menopausal Arthritis Anemia DVT (deep venous thrombosis) High cholesterol Back pain Syncope History of diverticulitis Non-smoker History of echocardiogram History of edema History of stress test Cardiology follow-up encounter History of CHF (congestive heart failure) Contact with and (suspected) exposure to other viral communicable diseases Essential (primary) hypertension Non-ischemic cardiomyopathy 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) Hemodialysis patient LLQ abdominal pain Sepsis Chronic pain Gout End stage renal failure on dialysis Polycystic kidney disease Surgical History (Updated 05/07/24 @ 09:09 by Debra Astudillo NP, BROADCAST SUPERVISOR-C) Hx of colonoscopy Hx of surgical procedure Hx of kidney transplant History of knee replacement procedure of left knee ( 07/2022) Renal transplant recipient (09/11/20) History of left heart catheterization (06/30/20) History of cholecystectomy History of right nephrectomy History of left nephrectomy History of s/p port placement Family History Father Aneurysm Kidney disease Social History Smoking Status: Never smoker alcohol intake: never substance use type: does not use caffeine: Yes what type of physical activity do you participate in: none seatbelt use: always do you feel safe at home: Yes additional social history: Wqqfilx-Ovzmpl-Emvsg Rite History 2 Elective abortions Hx Para 2 Spontaneous abortions Hx # Term Pregnancies Ectopic pregnancies Hx # Pregnancies Multiple births # of living children Past Pregnancies Del. Date Name GA/Weeks Outcome Route Bth Weight Gen Labor Lgth Anesthesia [facility] Provider FOB Unknown Moshe Aguiar HPI Encounter for routine gynecological examination Details: CATE FOX is a 63 year old who presents for annual exam. Denies concerns Last PAP: 2022 History of abnormal PAP: no Last mammogram: 05/2023 History of abnormal mammogram: no Colon cancer screenin Other preventative health care screenings: Eduardo Russell Female Reproductive History Questions: metorrhagia: No, sexually active: Yes, dyspareunia: No and PCB: No ROS Const Constitutional: Denies fatigue, weight gain or weight loss Cardio Card: Denies chest pain Resp Resp: Denies cough or dyspnea on exertion GI GI: Denies abdominal pain, bloating, change in stool character, constipation or vomiting : Reports as per HPI; Denies difficulty voiding, pelvic pain, urinary frequency, urinary incontinence, urinary urgency, vaginal dis (more content not included)... Normal [facility] PTHINon 05-07-2024 PTH 93.4 pg/mL High 18.4-80.1 [facility] Comment on above: Performed By: #### L 3380.1000, L500.3600 #### [facility] [address] [place], [address] Phosphoruson 05-07-2024 Phosphate [Mass/Vol] 4.3 mg/dL Normal 2.5-4.9 [facility] Comment on above: Performed By: #### L 3380.1000, L500.3600 #### [facility] [address] [place], [address] Protein+Creatinine Ratio,Uri neon 05-07-2024 PROT:CRE RATIO 151 mg/g CRE Normal 0-200 [facility] Comment on above: Performed By: #### L 3380.1000, L500.3600 #### [facility] [address] [place], [address] Protein (U) [Mass/Vol] 6.9 mg/dL Normal <11.9 [facility] Comment on above: Performed By: #### L 3380.1000, L500.3600 #### [facility] [address] [place], [address] UR CREAT 45.80 mg/dL Normal NO RANGE EST. [facility] Comment on above: Performed By: #### L 3380.1000, L500.3600 #### [facility] [address] [place], [address] Uric Acidon 05-07-2024 URIC 5.9 mg/dL Normal 2.6-6.0 [facility] Comment on above: Result Comment: The drugs N-Acetylcysteine and Metamizole may falsely depress this assay. Performed By: #### L 3380.1000, L500.3600 #### [facility] [address] [place], [address] Tacrolimus (Prograf)on 03-17 Tacrolimus (Bld) [Mass/Vol] 6.3 ng/mL Normal 2.0-20.0 [facility] Comment on above: Order Comment: Test( s) [id number]-Zicmcrzvpf (FK506), Bloodwas developed and its performance characteristicsdetermined by [facility]. It has not been cleared or approvedby the Food and Drug Administration. Result Comment: Trou gh (immediately following transplant) 15.0 Trough (steady state, 2 weeks or more after transplant): 3.0 - 8.0 Performed by LC-MS/MS technology. Performed at: [address] [id number] Consumer Insights Specialist: Amaury Dubois MD, Phone: [phone] Performed By: #### L 3380.1000, L500.3600 #### [facility] [address] [place], [address] Basic Metabolic Profile (BMP )on 03-14-2024 BUN/CRE 15.3 RATIO Normal 10-20 [facility] Comment on above: Performed By: #### L 3380.1000, L500.3600 #### [facility] [address] [place], [address] CA,Total 10.4 mg/dL High 8.5-10.1 [facility] Comment on above: Performed By: #### L 3380.1000, L500.3600 #### [facility] [address] [place], [address] Chloride [Moles/Vol] 114 mmol/L High 98-107 [facility] Comment on above: Performed By: #### L 3380.1000, L500.3600 #### [facility] [address] [place], [address] CO2 [Moles/Vol] 22.0 mmol/L Normal 21.0-32.0 [facility] Comment on above: Performed By: #### L 3380.1000, L500.3600 #### [facility] [address] [place], [address] Creatinine [Mass/Vol] 1.31 mg/dL High 0.55-1.02 [facility] Comment on above: Result Comment: The validity of the calculated GFR GFRAA in patients over 70 years has not been determined. Clinical correlation is essential. Performed By: #### L 3380.1000, L500.3600 #### [facility] [address] [place], [address] EST GFR - AA 53 mL/min Low >60 [facility] Comment on above: Result Comment: Afri can Lao GFR Calc Performed By: #### L 3380.1000, L500.3600 #### [facility] [address] [place], [address] GAP 5 Normal 5-15 [facility] Comment on above: Performed By: #### L 3380.1000, L500.3600 #### [facility] [address] [place], [address] GFR/1.73 sq M.predicted among non-blacks MDRD (S/P/Bld) [Vol rate/Area] 44 mL/min/{1.73_m2} Low >60 [facility] Comment on above: Result Comment: Non- GFR Calc Performed By: #### L 3380.1000, L500.3600 #### [facility] [address] [place], [address] Glucose [Mass/Vol] 108 mg/dL High 74-106 [facility] Comment on above: Result Comment: Fast ing Glucose result from 100 to 125 mg/dL suggests IMPAIRED HOMEOSTASIS per A.D.A. criteria. Performed By: #### L 3380.1000, L500.3600 #### [facility] [address] [place], [address] Potassium [Moles/Vol] 4.4 mmol/L Normal 3.5-5.1 [facility] Comment on above: Performed By: #### L 3380.1000, L500.3600 #### [facility] [address] [place], [address] Sodium [Moles/Vol] 141 mmol/L Normal 136-145 [facility] Comment on above: Performed By: #### L 3380.1000, L500.3600 #### [facility] [address] [place], [address] Urea nitrogen [Mass/Vol] 20 mg/dL High 7-18 [facility] Comment on above: Performed By: #### L 3380.1000, L500.3600 #### [facility] [address] [place], [address] CBC W/Diff, Automatedon 10-0 9-2023 Absolute Lymph 0.91 X10 3/uL Normal 0.83-4.51 [facility] Comment on above: Performed By: #### L 3380.1000, L500.3600 #### [facility] [address] [place], [address] Absolute Neut 5.6 X10 3/uL Normal 2.0-7.7 [facility] Comment on above: Performed By: #### L 3380.1000, L500.3600 #### [facility] [address] [place], [address] Basophils/100 WBC (Bld) 1.2 % High 0-1 [facility] Comment on above: Performed By: #### L 3380.1000, L500.3600 #### [facility] [address] [place], [address] Eosinophils/100 WBC (Bld) 2.5 % Normal 0-5 [facility] Comment on above: Performed By: #### L 3380.1000, L500.3600 #### [facility] [address] [place], [address] Erythrocyte distribution width (RBC) [Ratio] 13.2 % Normal 11.6-14.6 [facility] Comment on above: Performed By: #### L 3380.1000, L500.3600 #### [facility] [address] [place], [address] Hematocrit (Bld) [Volume fraction] 41.0 % Normal 37-47 [facility] Comment on above: Performed By: #### L 3380.1000, L500.3600 #### [facility] [address] [place], [address] Hemoglobin (Bld) [Mass/Vol] 12.9 g/dL Normal 12.0-15.0 [facility] Comment on above: Performed By: #### L 3380.1000, L500.3600 #### [facility] [address] [place], [address] IG% 0.300 Normal 0.0-0.9 [facility] Comment on above: Result Comment: IG% - Immature Granulocytes (promyelocytes, myelocytes and metamyelocytes) > 1% indicates that a LEFT SHIFT is Present. Performed By: #### L 3380.1000, L500.3600 #### [facility] [address] [place], [address] Lymphocytes/100 WBC (Bld) 12.1 % Low 19-41 [facility] Comment on above: Performed By: #### L 3380.1000, L500.3600 #### [facility] [address] [place], [address] MCH (RBC) [Entitic mass] 29.4 pg Normal 27.0-32.0 [facility] Comment on above: Performed By: #### L 3380.1000, L500.3600 #### [facility] [address] [place], [address] MCHC (RBC) [Mass/Vol] 31.5 g/dL Low 32-36 [facility] Comment on above: Performed By: #### L 3380.1000, L500.3600 #### [facility] [address] [place], [address] MCV (RBC) [Entitic vol] 93.4 fL Normal 81-99 [facility] Comment on above: Performed By: #### L 3380.1000, L500.3600 #### [facility] [address] [place], [address] Monocytes/100 WBC (Bld) 8.8 % Normal 0-10 [facility] Comment on above: Performed By: #### L 3380.1000, L500.3600 #### [facility] [address] [place], [address] Neutrophils/100 WBC (Bld) 75.1 % High 47-70 [facility] Comment on above: Performed By: #### L 3380.1000, L500.3600 #### [facility] [address] [place], [address] Nucleated RBC (Bld) [#/Vol] 0 10*3/uL Normal 0-5 [facility] Comment on above: Performed By: #### L 3380.1000, L500.3600 #### [facility] [address] [place], [address] Platelet mean volume (Bld) [Entitic vol] 11.2 fL Normal 6.2-12.0 [facility] Comment on above: Performed By: #### L 3380.1000, L500.3600 #### [facility] [address] [place], [address] Platelets (Bld) [#/Vol] 250 10*3/uL Normal 150-450 [facility] Comment on above: Performed By: #### L 3380.1000, L500.3600 #### [facility] [address] [place], [address] RBC (Bld) [#/Vol] 4.39 10*6/uL Normal 4.2-5.4 [facility] Comment on above: Performed By: #### L 3380.1000, L500.3600 #### [place] [facility] [address] [place], [address] RDW SD 45.1 fl High 35.1-43.9 [facility] Comment on above: Performed By: #### L 3380.1000, L500.3600 #### [facility] [address] [place], [address] WBC (Bld) [#/Vol] 7.5 10*3/uL Normal 4.4-11.0 [facility] Comment on above: Performed By: #### L 3380.1000, L500.3600 #### [facility] [address] [place], [address] Vitamin D,25 Hydroxyon 03-14 Vitamin D 25-OH 60.5 ng/mL Normal [facility] Comment on above: Order Comment: Order Date: 03/14/24 Order Info: [id number] - [id number] Result Comment: Kelly min D 25(OH) Status Range Deficiency <20 ng/mL (50nmol/L) Insufficiency 20 - 30 ng/mL (50 - 75 nmol/L) Sufficiency 30 - 100 ng/mL (75 - 250 nmol/L) Toxicity >100 ng/mL (>250 nmol/L) Performed By: #### L 506.1000 #### [facility] [address] [place], [address] Internal Medicine Office Vis ramses 01-28-2024 Internal Medicine Office Visit [facility] [address] [place] [address] [place] [address] OFFICE VISIT Date of Service: 01/28/24 MR#: [id number] Acct: [id number] Name: CATE FOX Rep #: [id number] : 1960 Provider: SONIDO salcedo Age/Sex: 63/F Location: [facility] Status: Signed Intake Vital Signs 05/25/23 10:02 01/28/24 09:42 Height 5 ft 5 ft Weight: 195 lb BMI 38.0 BP 116/68 Blood Pressure Location Rt brachial Position Sitting Respiration 17 Pulse 79 Pulse Source NIBP Temp 98.7 F Temp Source Temporal Pulse Oximetry (%) 97 Oxygen Delivery Method room air Intake Visit Reasons: SORE THROAT, CONGESTION Chief Complaint: cough, congestion Deli 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 Slicer Required: No Is patient in pain?: No Allergies cephalexin Allergy (Mild, Verified 01/28/24 09:43) rash codeine Adverse Reaction (Verified 01/28/24 09:43) Nausea Medications ???Medication ???Instructions ???Recorded ???Confirmed ???Type allopurinol 100 mg tablet 100 mg PO MOWEFR gout 09/01/16 01/28/24 History albuterol sulfate 90 mcg/actuation 2 puff inhalation Q6H PRN Wheezing 12/27/19 01/28/24 History aerosol inhaler aspirin 81 mg tablet,delayed 81 mg PO DAILY 07/15/20 01/28/24 History release (Adult Aspirin Regimen) magnesium oxide 400 mg PO BID 12/03/21 01/28/24 History tacrolimus 1 mg capsule, See Rx Instructions PO Q12H 03/25/22 01/28/24 History immediate-release mycophenolate sodium 180 mg 180 mg PO BID 11/09/22 01/28/24 History tablet,delayed release gabapentin 100 mg capsule 100 mg PO DAILY 05/03/23 01/28/24 History atorvastatin 20 mg tablet 20 mg PO QHS 05/09/23 01/28/24 History sulfamethoxazole 800 1 tab PO MOWEFR 05/09/23 01/28/24 History mg-trimethoprim 160 mg tablet cholecalciferol (vitamin D3) 1,250 1,250 mcg PO QWEEK 01/28/24 01/28/24 History mcg (50,000 unit) capsule coenzyme Q10 100 mg capsule 100 mg PO DAILY 01/28/24 01/28/24 History Is last menstrual period known: No Post menopausal: Yes Patient : No Have you fallen in the past year?: No Nurse's Note: ERICKSON, cough, congestion x 5 days. 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) Hemodialysis patient LLQ abdominal pain Sepsis Chronic pain Gout End stage renal failure on dialysis Polycystic kidney disease Surgical History Hx of colonoscopy Hx of surgical procedure Hx of kidney transplant History of knee replacement procedure of left knee ( 07/2022) Renal transplant recipient (09/11/20) History of left heart catheterization (06/30/20) History of cholecystectomy History of right nephrectomy History of left nephrectomy History of s/p port placement Family History Father Aneurysm Kidney disease Social History Smoking Status: Never smoker alcohol intake: never substance use type: does not use caffeine: Yes what type of physical activity do you participate in: none seatbelt use: always do you feel safe at home: Yes additional social history: [employer]Ckm[employer] HPI HPI Chief Complaint: cough, congestion Details: CTAE FOX, is a 63 F who presents to urgent care for headache, dry cough, body aches, chills, nasal congestion x5 days. +ill contacts at home with similar sx. Reports onset of sx with ST that has improved. Treating with fluids, tylenol, rest. She is concerned for COVID. She denies dyspnea, wheezing, lightheadedness, chest pain. History of renal transplant. ROS Const Constitutional: No anorexia (as noted in hpi) Exam Const General: cooperative, healthy appearing and comfortable Nutritional Appearance: obese Orientation: alert, awake and oriented x3 HENMT Head: normal to inspection Ears: hearing grossly normal bilaterally, external ears normal and TM's normal bilaterally Nose: external nose normal, no nasal polyps and nasal mucous membranes and turbinates normal Face and sinus: normal facial exam, sinuses nontender and face symmetric Mouth: oral mucosae normal, lip normal and tongue normal Teeth and gingiva: dentition nor (more content not included)... Normal [facility] HIP, UNI W/ Pelvis 2-3 Views on 12-29-2023 HIP, UNI W/ Pelvis 2-3 Views [facility] Services [address] [place] [address] HIP, UNI W/ Pelvis 2-3 Views MR#: [id number] Acct: [id number] Name: CATE FOX Rep #: [id number] : 1960 F 63 From: Marcel Kahn MD PCP: Dr. Carson Russell MD [facility] Study: HIP, UNI W/ Pelvis 2-3 Views Date of Exam: Exam# [id number] Ordering Dr: Louisa Pope MD :[id number] STUDY: X-RAY - PELVIS AND RIGHT HIP REASON FOR EXAM: Female, 63 years old. OA TECHNIQUE: 3 views of the pelvis and hip. COMPARISON: None. FINDINGS: There is a non-specific bowel gas pattern. Normal visualized soft tissue structures. Normal bilateral iliac wings, sacroiliac joints and visualized sacrum. Normal bilateral superior and inferior pubic rami. Normal pubic symphysis. Normal bilateral ischial tuberosities. Normal visualized femoral head. Normal acetabulum. Normal hip joint. RAD/HIP, UNI W/ Pelvis 2-3 Views IMPRESSION: Normal x-ray examination of the pelvis and hip. Electronically Signed: Marcel Kahn MD at 9:19 EDT , CC: Dr. Louisa Pope MD; Dr. 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 It has not been cleared or approved by the Food and Drug Administration. Result Comment: Trou gh (immediately following transplant) 15.0 Trough (steady state, 2 weeks or more after transplant): 3.0 - 8.0 Performed by LC-MS/MS technology. Performed at: [facility] [id number] Consumer Insights Specialist: Amaury Dubois MD, Phone: [phone] Performed By: #### L 500.2500, L3380.1000 #### [facility] [address] [place], [address] CBC-Complete Blood Cnt No Di ffon 11-28-2023 Erythrocyte distribution width (RBC) [Ratio] 13.5 % Normal 11.6-14.6 [facility] Comment on above: Performed By: #### L 500.2500, L3380.1000 #### [facility] [address] [place], [address] Hematocrit (Bld) [Volume fraction] 42.3 % Normal 37-47 [facility] Comment on above: Performed By: #### L 500.2500, L3380.1000 #### [facility] [address] [place], [address] Hemoglobin (Bld) [Mass/Vol] 13.3 g/dL Normal 12.0-15.0 [facility] Comment on above: Performed By: #### L 500.2500, L3380.1000 #### [facility] [address] [facility] [place], [address] MCH (RBC) [Entitic mass] 28.9 pg Normal 27.0-32.0 [facility] Comment on above: Performed By: #### L 500.2500, L3380.1000 #### [facility] [address] [place], [address] MCHC (RBC) [Mass/Vol] 31.4 g/dL Low 32-36 [facility] Comment on above: Performed By: #### L 500.2500, L3380.1000 #### [facility] [address] [place], [address] MCV (RBC) [Entitic vol] 92.0 fL Normal 81-99 [facility] Comment on above: Performed By: #### L 500.2500, L3380.1000 #### [facility] [address] [place], [address] Platelet mean volume (Bld) [Entitic vol] 10.3 fL Normal 6.2-12.0 [facility] Comment on above: Performed By: #### L 500.2500, L3380.1000 #### [facility] [address] [place], [address] Platelets (Bld) [#/Vol] 294 10*3/uL Normal 150-450 [facility] Comment on above: Performed By: #### L 500.2500, L3380.1000 #### [facility] [address] [place], [address] RBC (Bld) [#/Vol] 4.60 10*6/uL Normal 4.2-5.4 [facility] Comment on above: Performed By: #### L 500.2500, L3380.1000 #### [facility] [address] [place], [address] RDW SD 45.3 fl High 35.1-43.9 [facility] Comment on above: Performed By: #### L 500.2500, L3380.1000 #### [facility] [address] [place], [address] WBC (Bld) [#/Vol] 8.2 10*3/uL Normal 4.4-11.0 [facility] Comment on above: Performed By: #### L 500.2500, L3380.1000 #### [facility] [address] [place], [address] Comprehensive Metabolic Prof ilon 11-28-2023 Albumin [Mass/Vol] 3.4 g/dL Normal 3.2-5.0 [facility] Comment on above: Performed By: #### L 500.2500, L3380.1000 #### [facility] [address] [place], [address] Albumin/Globulin [Mass ratio] 1.0 {ratio} Normal 0.9-2.4 [facility] Comment on above: Performed By: #### L 500.2500, L3380.1000 #### [facility] [address] [place], [address] ALK P 96 U/L Normal 45-117 [facility] Comment on above: Performed By: #### L 500.2500, L3380.1000 #### [facility] [address] [place], [address] ALT [Catalytic activity/Vol] 22 U/L Normal 13-56 [facility] Comment on above: Performed By: #### L 500.2500, L3380.1000 #### [facility] [address] [place], [address] AST [Catalytic activity/Vol] 14 U/L Low 15-37 [facility] Comment on above: Performed By: #### L 500.2500, L3380.1000 #### [facility] [address] [place], [address] Bilirubin [Mass/Vol] 0.50 mg/dL Normal 0.20-1.00 [facility] Comment on above: Result Comment: For patients on eltrombopag therapy, use of Dimension [place] TBIL is not recommended. Performed By: #### L 500.2500, L3380.1000 #### [facility] [address] [place], [address] BUN/CRE 16.8 RATIO Normal 10-20 [facility] Comment on above: Performed By: #### L 500.2500, L3380.1000 #### [facility] [address] [place], [address] CA,Total 10.9 mg/dL High 8.5-10.1 [facility] Comment on above: Performed By: #### L 500.2500, L3380.1000 #### [facility] [address] [place], [address] Chloride [Moles/Vol] 112 mmol/L High 98-107 [facility] Comment on above: Performed By: #### L 500.2500, L3380.1000 #### [facility] [address] [place], [address] CO2 [Moles/Vol] 21.0 mmol/L Normal 21.0-32.0 [facility] Comment on above: Performed By: #### L 500.2500, L3380.1000 #### [facility] [address] [place], [address] Creatinine [Mass/Vol] 1.25 mg/dL High 0.55-1.02 [facility] Comment on above: Result Comment: The validity of the calculated GFR GFRAA in patients over 70 years has not been determined. Clinical correlation is essential. Performed By: #### L 500.2500, L3380.1000 #### [facility] [address] [place], [address] EST GFR - AA 56 mL/min Low >60 [facility] Comment on above: Result Comment: Afri can Lao GFR Calc Performed By: #### L 500.2500, L3380.1000 #### [facility] [address] [place], [address] GAP 6 Normal 5-15 [facility] Comment on above: Performed By: #### L 500.2500, L3380.1000 #### [facility] [address] [place], [address] GFR/1.73 sq M.predicted among non-blacks MDRD (S/P/Bld) [Vol rate/Area] 46 mL/min/{1.73_m2} Low >60 [facility] Comment on above: Result Comment: Non- GFR Calc Performed By: #### L 500.2500, L3380.1000 #### [facility] [address] [place], [address] Globulin (S) [Mass/Vol] 3.3 g/dL Normal 2.2-4.2 [facility] Comment on above: Performed By: #### L 500.2500, L3380.1000 #### [facility] [address] [place], [address] Glucose [Mass/Vol] 109 mg/dL High 74-106 [facility] Comment on above: Result Comment: Fast ing Glucose result from 100 to 125 mg/dL suggests IMPAIRED HOMEOSTASIS per A.D.A. criteria. Performed By: #### L 500.2500, L3380.1000 #### [facility] [address] [place], [address] Potassium [Moles/Vol] 4.4 mmol/L Normal 3.5-5.1 [facility] Comment on above: Performed By: #### L 500.2500, L3380.1000 #### [facility] [address] [place], [address] Sodium [Moles/Vol] 139 mmol/L Normal 136-145 [facility] Comment on above: Performed By: #### L 500.2500, L3380.1000 #### [facility] [address] [place], [address] T PROT 6.7 g/dL Normal 6.4-8.2 [facility] Comment on above: Performed By: #### L 500.2500, L3380.1000 #### [facility] [address] [place], [address] Urea nitrogen [Mass/Vol] 21 mg/dL High 7-18 [facility] Comment on above: Performed By: #### L 500.2500, L3380.1000 #### [facility] [address] [place], [address] Ferritinon 11-28-2023 Ferritin [Mass/Vol] 1307 ng/mL High 8-252 [facility] Comment on above: Performed By: #### L 500.2500, L3380.1000 #### [facility] [address] [place], [address] Iron+Iron Binding Capacityon 11-28-2023 Iron [Mass/Vol] 86 ug/dL Normal 50-170 [facility] Comment on above: Performed By: #### L 500.2500, L3380.1000 #### [facility] [address] [place], [address] IRON SATURATION 34.7 Normal 15.0-55.0 [facility] Comment on above: Performed By: #### L 500.2500, L3380.1000 #### [facility] [address] [place], [address] TIBC 248 ug/dL Low 250-450 [facility] Comment on above: Performed By: #### L 500.2500, L3380.1000 #### [facility] [address] [place], [address] Lipid Profileon 11-28-2023 Cholesterol [Mass/Vol] 145 mg/dL Normal 200 [facility] Comment on above: Result Comment: <200 mg/dL Desirable 200-240 mg/dL Borderline >240 mg/dL High Risk Performed By: #### L 500.2500, L3380.1000 #### [facility] [address] [place], [address] Cholesterol in HDL [Mass/Vol] 69 mg/dL Normal [facility] Comment on above: Result Comment: The drugs N-Acetylcysteine and Metamizole may falsely depress this assay. Reference Range HDL <40 mg/dL Low HDL Cholesterol HDL >or= 60 mg/dL High HDL Cholesterol Performed By: #### L 500.2500, L3380.1000 #### [facility] [address] [place], [address] Cholesterol in LDL [Mass/Vol] 52 mg/dL Normal 0-130 [facility] Comment on above: Performed By: #### L 500.2500, L3380.1000 #### [facility] [address] [place], [address] Cholesterol in VLDL [Mass/Vol] 24 mg/dL Normal 5-40 [facility] Comment on above: Performed By: #### L 500.2500, L3380.1000 #### [facility] [address] [place], [address] Triglyceride [Mass/Vol] 119 mg/dL Normal [facility] Comment on above: Result Comment: The drugs N-Acetylcysteine and Metamizole may falsely depress this assay. Serum Triglycerides Reference Interval Normal <150 mg/dL Borderline high 150 - 199 mg/dL High 200 - 499 mg/dL Very High > or = 500 mg/dL Performed By: #### L 500.2500, L3380.1000 #### [facility] [address] [place], [address] Magnesiumon 11-28-2023 Magnesium [Mass/Vol] 1.6 mg/dL Normal 1.6-2.6 [facility] Comment on above: Performed By: #### L 500.2500, L3380.1000 #### [facility] [address] [place], [address] Microalb:Creat Ratio,Random URon 11-28-2023 MALB:CRE 5.7 mg/g CRE Normal <30 mg/g CRE [facility] Comment on above: Performed By: #### L 500.2500, L3380.1000 #### [facility] [address] [place], [address] MICROALBUMIN,UR 5.2 mg/L Normal NO RANGE EST. [facility] Comment on above: Performed By: #### L 500.2500, L3380.1000 #### [facility] [address] [place], [address] PTHINon 11-28-2023 PTH 147.1 pg/mL High 18.4-80.1 [facility] Comment on above: Performed By: #### L 500.2500, L3380.1000 #### [facility] [address] [place], [address] Phosphoruson 11-28-2023 Phosphate [Mass/Vol] 2.5 mg/dL Normal 2.5-4.9 [facility] Comment on above: Performed By: #### L 500.2500, L3380.1000 #### [facility] [address] [place], [address] Protein+Creatinine Ratio,Uri neon 11-28-2023 PROT:CRE RATIO 109 mg/g CRE Normal 0-200 [facility] Comment on above: Performed By: #### L 500.2500, L3380.1000 #### [facility] [address] [place], [address] Protein (U) [Mass/Vol] 10.0 mg/dL Normal <11.9 [facility] Comment on above: Performed By: #### L 500.2500, L3380.1000 #### [facility] [address] [place], [address] UR CREAT 91.50 mg/dL Normal NO RANGE EST. [facility] Comment on above: Performed By: #### L 500.2500, L3380.1000 #### [facility] [address] [place], [address] Uric Acidon 11-28-2023 URIC 5.5 mg/dL Normal 2.6-6.0 [facility] Comment on above: Result Comment: The drugs N-Acetylcysteine and Metamizole may falsely depress this assay. Performed By: #### L 500.2500, L3380.1000 #### [facility] [address] [place], [address] Vitamin D,25 Hydroxyon 11-274 Vitamin D 25-OH 14.5 ng/mL Normal [facility] Comment on above: Result Comment: Kelly min D 25(OH) Status Range Deficiency <20 ng/mL (50nmol/L) Insufficiency 20 - 30 ng/mL (50 - 75 nmol/L) Sufficiency 30 - 100 ng/mL (75 - 250 nmol/L) Toxicity >100 ng/mL (>250 nmol/L) Performed By: #### L 500.2500, L3380.1000 #### [facility] [address] [place], [address] ALLOSCREEN RECIPIENT (POST T X PRA)on 09-15-2023 AB SPECIFICITY CLASS COMMENT Antibody Specificity testing performed by [facility]. cPRA calculation based on identification of HLA antibody specificities at MFI >2000 and/or presence of CREG antibodies. [facility] Comment on above: Some of the reagents used for testing in the Clinical Histocompatibility Laboratory have yet to be approved by the FDA. Our certification by CLIA to perform high complexity tests allows us to use these reagents in the context of a stringent QC program, and obviates the need for FDA approval.Testing performed by the [facility] Clinical Histocompatibility Laboratory. [facility] number: [id number]. CLIA number: [id number], Director: Lawson Christianson, PhD, F(ACHI). ANTIBODY SPECIFICITY INTERPRETATION Detected [facility] CLASS I SPECIFICITIES A:2 68 69 [facility] CLASS II SPECIFICITIES Not detected [facility] HLA Ab (S) 54 % High 0 [facility] Interpretation and review of laboratory results Abnormal [facility] BK VIRUS DNA QN, PCR, PLASMA Ordered By: Estephania Kwok on 09-15-2023 BK virus DNA NORA+probe Qn NINF [facility] Interpretation and review of laboratory results Normal [facility] This test was perfor med using a real time PCR assay. The dynamic range for this assay is 500-5,000,000 copies/mL. This test was developed and its performance characteristics determined by The Clinical Microbiology Laboratory at [facility]. It has not been cleared or approved by the FDA. The laboratory is regulated under CLIA as qualified to perform high-complexity testing. This test is used for clinical purposes. It should not be regarded as investigational or for research. [facility] CHEM 7 (LYTES,BUN,CREA,GLUC) on 09-14-2023 Anion gap [Moles/Vol] 13 mmol/L 7 - 17 mmol/L [facility] Chloride [Moles/Vol] 110 mmol/L High 98 - 10 8 mmol/L [facility] CO2 [Moles/Vol] 24 mmol/L 21 - 31 mmol/L [facility] Creatinine [Mass/Vol] 1.09 mg/dL 0.50 - 1.20 mg/dL [facility] eGFR, CKD-EPI, Female 60 Low - PINF [facility] Comment on above: Reported eGFR is bas ed on the CKD-EPI 2020 equation using creatinine, age, and sex. Glucose [Mass/Vol] 111 mg/dL High 70 - 99 mg/dL [facility] Interpretation and review of laboratory results Abnormal [facility] Osmolality Calc [Osmolality] 302 [facility] Potassium [Moles/Vol] 5.2 mmol/L High 3.5 - 5.0 mmol/L [facility] Sodium [Moles/Vol] 142 mmol/L 135 - 145 mmol/L [facility] Urea nitrogen [Mass/Vol] 21 mg/dL 7 - 25 [facility] Urea nitrogen/Creatinine [Mass ratio] 19 mg/mg [facility] URINE PROTEIN/CREA RATIO, RA NDOMon 09-14-2023 Creatinine (24H U) [Mass/Vol] 71.79 mg/dL [facility] Protein Unsp time (U) [Mass/Vol] 7 mg/[facility] Protein/Creatinine (U) [Mass ratio] 0.098 mg/mg [facility] Basophil percentageon 2023 Chloride [Moles/Vol] 114 mmol/L 98-107 [facility] Glucose [Mass/Vol] 111 mg/dL 74-106 [facility] Comment on above: Fasting Glucose resu lt from 100 to 125 mg/dL suggests IMPAIRED HOMEOSTASIS per A.D.A. criteria. Potassium [Moles/Vol] 4.7 mmol/L 3.5-5.1 [facility] Sodium [Moles/Vol] 138 mmol/L 136-145 [facility] - Chemistry and C hemistry - challengeon 07-28-2023 CO2 [Moles/Vol] 21.0 mmol/L 21.0-32.0 [facility] Urea nitrogen/Creatinine [Mass ratio] 19.4 mg/mg 10-20 [facility] No Panel Informationon 07-28 Estimated GFR (MDRD) Amer 50 mL/min >60 [facility] Comment on above: GFR Calc Estimated GFR (MDRD) Non-Af Amer 41 mL/min >60 [facility] Comment on above: Non- GFR Calc Miscellaneous Test See comment [facility] Comment on above: Sent directly to [facility] facility per ordering physician. Serum or plasma calcium osei urement (mass/volume)on 07-28-2023 Calcium [Mass/Vol] 9.8 mg/dL 8.5-10.1 [facility] Serum or plasma creatinine m easurement (mass/volume)on 07-28-2023 Creatinine [Mass/Vol] 1.39 mg/dL 0.55-1.02 [facility] Comment on above: The validity of the calculated GFR & GFRAA in patients over 70 years has not been determined. Clinical correlation is essential. Serum or plasma urea nitroge n measurement (mass/volume)on 07-28-2023 Urea nitrogen [Mass/Vol] 27 mg/dL 7-18 [facility] Thin prep Papanicolaou smear with manual screeningon 07-28-2023 Protein (U) [Mass/Vol] 9.2 mg/dL 0.0-11.8 [facility] Thin prep Papanicolaou smear with manual screening 3 5-15 [facility] Urine creatinine measurement (mass/volume)on 07-28-2023 Creatinine (U) [Mass/Vol] 77.00 mg/dL NO RANGE EST. [facility] Urine protein/creatinine mas s ratioon 07-28-2023 Protein/Creatinine (U) [Mass ratio] 119 mg/g CRE 0-200 [facility] Absolute lymphocyte counton 07-12-2023 Lymphocytes Auto (Unsp spec) [#/Vol] 0.95 10*3/uL 0.83-4.51 [facility] Automated lymphocyte count a s percentage of total leukocyteson 07-12-2023 Lymphocytes/100 WBC Auto (Unsp spec) 13.1 % 19-41 [facility] Basophil percentageon 2023 Basophils/100 WBC (Bld) 1.2 % 0-1 [facility] Bilirubin [Mass/Vol] 0.40 mg/dL 0.20-1.00 [facility] Comment on above: For patients on eltr ombopag therapy, use of Dimension [place] TBIL is not recommended. Chloride [Moles/Vol] 114 mmol/L 98-107 [facility] Eosinophils/100 WBC (Bld) 3.3 % 0-5 [facility] Glucose [Mass/Vol] 97 mg/dL 74-106 [facility] Hemoglobin (Bld) [Mass/Vol] 13.2 g/dL 12.0-15.0 [facility] Monocytes/100 WBC (Bld) 8.5 % 0-10 [facility] Neutrophils (Bld) [#/Vol] 5.3 10*3/uL 2.0-7.7 [facility] Neutrophils/100 WBC (Bld) 73.6 % 47-70 [facility] Potassium [Moles/Vol] 4.5 mmol/L 3.5-5.1 [facility] Protein [Mass/Vol] 6.6 g/dL 6.4-8.2 [facility] Sodium [Moles/Vol] 139 mmol/L 136-145 [facility] WBC (Bld) [#/Vol] 7.3 10*3/uL 4.4-11.0 [facility] Determination of erythrocyte mean corpuscular volume (MCV)on 07-12-2023 MCV (RBC) [Entitic vol] 92.9 fL 81-99 [facility] Erythrocyte distribution wid th ratioon 07-12-2023 Erythrocyte distribution width (RBC) [Ratio] 13.1 % 11.6-14.6 [facility] Erythrocyte distribution wid th standard deviationon 07-12-2023 Erythrocyte distribution width (RBC) [Entitic vol] 44.4 fL 35.1-43.9 [facility] Hematocrit Auto (Bld) [Volum e fraction]on 07-12-2023 Hematocrit (Bld) [Volume fraction] 41.8 % 37-47 [facility] Immature granulocytes/100 WB C Auto (Bld)on 07-12-2023 Immature granulocytes/100 WBC (Bld) 0.300 % 0.0-0.9 [facility] Comment on above: IG% - Immature Granu locytes (promyelocytes, myelocytes and metamyelocytes) > 1% indicates that a LEFT SHIFT is Present. Laboratory - Chemistry and C hemistry - challengeon 07-12-2023 Albumin/Globulin [Mass ratio] 1.2 {ratio} 0.9-2.4 [facility] ALP [Catalytic activity/Vol] 94 U/L 45-117 [facility] ALT [Catalytic activity/Vol] 26 U/L 13-56 [facility] CO2 [Moles/Vol] 23.0 mmol/L 21.0-32.0 [facility] Globulin (S) [Mass/Vol] 3.0 g/dL 2.2-4.2 [facility] Urea nitrogen/Creatinine [Mass ratio] 18.8 mg/mg 10-20 [facility] - Hematology and Cell countson 07-12-2023 MCH (RBC) [Entitic mass] 29.3 pg 27.0-32.0 [facility] MCHC (RBC) [Mass/Vol] 31.6 g/dL 32-36 [facility] Nucleated RBC/100 WBC (Bld) [Ratio] 0 % 0-5 [facility] Platelet mean volume (Bld) [Entitic vol] 10.4 fL 6.2-12.0 [facility] Platelets (Bld) [#/Vol] 299 10*3/uL 150-450 [facility] No Panel Informationon 07-12 Estimated GFR (MDRD) Amer 52 mL/min >60 [facility] Comment on above: GFR Calc Estimated GFR (MDRD) Non-Af Amer 43 mL/min >60 [facility] Comment on above: Non- GFR Calc Tacrolimus (Prograf) Level 5.7 ng/mL 2.0-20.0 [facility] Comment on above: Trough (immediately following transplant) 15.0 Trough (steady state, 2 weeks or more after transplant): 3.0 - 8.0 Performed by LC-MS/MS technology.Performed at: [employer] [address] [id number] Director: Amaury Dubois MD, Phone: [phone] RBC Auto (Bld) [#/Vol]on RBC (Bld) [#/Vol] 4.50 10*6/uL 4.2-5.4 [facility] Serum or plasma calcium osei urement (mass/volume)on 07-12-2023 Calcium [Mass/Vol] 10.0 mg/dL 8.5-10.1 [facility] Serum or plasma creatinine m easurement (mass/volume)on 07-12-2023 Creatinine [Mass/Vol] 1.33 mg/dL 0.55-1.02 [facility] Comment on above: The validity of the calculated GFR & GFRAA in patients over 70 years has not been determined. Clinical correlation is essential. Serum or plasma urea nitroge n measurement (mass/volume)on 07-12-2023 Urea nitrogen [Mass/Vol] 25 mg/dL 7-18 [facility] Thin prep Papanicolaou smear with manual screeningon 07-12-2023 Thin prep Papanicolaou smear with manual screening 3.6 g/dL 3.2-5.0 [facility] Thin prep Papanicolaou smear with manual screening 16 U/L 15-37 [facility] Thin prep Papanicolaou smear with manual screening 2 5-15 [facility] Basophil percentageOrdered B y: Krzysztof Wu on 06-23-2023 Basophil percentage 2.1 mg/dL 2.5-4.9 [facility] Chloride [Moles/Vol] 113 mmol/L 98-107 [facility] Glucose [Mass/Vol] 102 mg/dL 74-106 [facility] Comment on above: Fasting Glucose resu lt from 100 to 125 mg/dL suggests IMPAIRED HOMEOSTASIS per A.D.A. criteria. Potassium [Moles/Vol] 4.8 mmol/L 3.5-5.1 [facility] Sodium [Moles/Vol] 140 mmol/L 136-145 [facility] - Chemistry and C hemistry - challengeOrdered By: Krzysztof Wu on 06-23-2023 CO2 [Moles/Vol] 24.0 mmol/L 21.0-32.0 [facility] Urea nitrogen/Creatinine [Mass ratio] 12.8 mg/mg 10-20 [facility] No Panel InformationOrdered By: Krzysztof Wu on 06-23-2023 Estimated GFR (MDRD) Amer 52 mL/min >60 [facility] Comment on above: GFR Calc Estimated GFR (MDRD) Non-Af Amer 43 mL/min >60 [facility] Comment on above: Non- GFR Calc Tacrolimus (Prograf) Level 6.5 ng/mL 2.0-20.0 [facility] Comment on above: Trough (immediately following transplant) 15.0 Trough (steady state, 2 weeks or more after transplant): 3.0 - 8.0 Performed by LC-MS/MS technology.Performed at: [employer] [id number] Director: Amaury Dubois MD, Phone: [phone] Serum or plasma calcium osei urement (mass/volume)Ordered By: Krzysztof Wu on 06-23-2023 Calcium [Mass/Vol] 10.3 mg/dL 8.5-10.1 [facility] Serum or plasma creatinine m easurement (mass/volume)Ordered By: Krzysztof Wu on 06-23-2023 Creatinine [Mass/Vol] 1.33 mg/dL 0.55-1.02 [facility] Comment on above: The validity of the calculated GFR & GFRAA in patients over 70 years has not been determined. Clinical correlation is essential. Serum or plasma urea nitroge n measurement (mass/volume)Ordered By: Gopalericka Wu on 06-23-2023 Urea nitrogen [Mass/Vol] 17 mg/dL 12-21 [facility] Thin prep Papanicolaou smear with manual screeningOrdered By: Gopalericka [facility] on 06-23-2023 Thin prep Papanicolaou smear with manual screening 3.6 g/dL 3.2-5.0 [facility] Basophil percentageOrdered B y: Krzysztof Wu on 06-02-2023 Basophil percentage 1.9 mg/dL 2.5-4.9 [facility] Chloride [Moles/Vol] 112 mmol/L 98-107 [facility] Glucose [Mass/Vol] 117 mg/dL 74-106 [facility] Comment on above: Fasting Glucose resu lt from 100 to 125 mg/dL suggests IMPAIRED HOMEOSTASIS per A.D.A. criteria. Potassium [Moles/Vol] 4.5 mmol/L 3.5-5.1 [facility] Sodium [Moles/Vol] 141 mmol/L 136-145 [facility] WBC (Bld) [#/Vol] 7.3 10*3/uL 4.4-11.0 [facility] Blood erythrocytes count (nu mber/volume)Ordered By: Krzysztof Wu on 06-02-2023 RBC (Bld) [#/Vol] 4.57 10*6/uL 4.2-5.4 [facility] Blood hemoglobin measurement (mass/volume)Ordered By: Krzysztof Wu on 06-02-2023 Hemoglobin (Bld) [Mass/Vol] 13.3 g/dL 12.0-15.0 [facility] Blood platelet mean volumeOr dered By: Krzysztof Wu on 06-02-2023 Platelet mean volume (Bld) [Entitic vol] 10.0 fL 6.2-12.0 [facility] Determination of erythrocyte mean corpuscular volume (MCV)Ordered By: Krzysztof Wu on 06-02-2023 MCV (RBC) [Entitic vol] 93.7 fL 81-99 [facility] Hematocrit Auto (Bld) [Volum e fraction]Ordered By: Gopalericka Wu on 06-02-2023 Hematocrit (Bld) [Volume fraction] 42.8 % 37-47 [facility] Iron measurement (mass/mass) Ordered By: Krzysztof Wu on 06-02-2023 Iron (Unsp spec) [Mass/Mass] 92 ug/dL 50-170 [facility] - Chemistry and C hemistry - challengeOrdered By: Gopalericka Wu on 06-02-2023 CO2 [Moles/Vol] 25.0 mmol/L 21.0-32.0 [facility] Magnesium [Mass/Vol] 1.8 mg/dL 1.6-2.6 [facility] Urea nitrogen/Creatinine [Mass ratio] 17.3 mg/mg 10-20 [facility] - Hematology and Cell countsOrdered By: Krzysztof Wu on 06-02-2023 Erythrocyte distribution width (RBC) [Entitic vol] 45.2 fL 35.1-43.9 [facility] Erythrocyte distribution width (RBC) [Ratio] 13.2 % 11.6-14.6 [facility] MCH (RBC) [Entitic mass] 29.1 pg 27.0-32.0 [facility] MCHC Auto (RBC) [Mass/Vol]Or dered By: Krzysztof Wu on 06-02-2023 MCHC (RBC) [Mass/Vol] 31.1 g/dL 32-36 [facility] No Panel InformationOrdered By: Krzysztof Wu on 06-02-2023 Urine Microalbumin/Creatini ne Ratio 8.9 mg/g CRE <30 [facility] Estimated GFR (MDRD) Amer 50 mL/min >60 [facility] Comment on above: GFR Calc Estimated GFR (MDRD) Non-Af Amer 41 mL/min >60 [facility] Comment on above: Non- GFR Calc Parathyroid Hormone (Intact) 347.0 pg/mL 18.4-80.1 [facility] Tacrolimus (Prograf) Level 19.9 ng/mL 2.0-20.0 [facility] Comment on above: Trough (immediately following transplant) 15.0 Trough (steady state, 2 weeks or more after transplant): 3.0 - 8.0 Performed by LC-MS/MS technology.Performed at: [employer] [id number] Director: Amaury Dubois MD, Phone: [phone] Total Iron Binding Capacity 238 ug/dL 250-450 [facility] Vitamin D 25-Hydroxy 11.9 ng/mL [facility] Comment on above: Vitamin D 25(OH) Sta tus Range Deficiency <20 ng/mL (50nmol/L) Insufficiency 20 - 30 ng/mL (50 - 75 nmol/L) Sufficiency 30 - 100 ng/mL (75 - 250 nmol/L) Toxicity >100 ng/mL (>250 nmol/L) Platelets bldOrdered By: Gopal Wu on 06-02-2023 Platelets (Bld) [#/Vol] 322 10*3/uL 150-450 [facility] Serum or plasma albumin osei urement (mass/volume)Ordered By: Krzysztof Wu on 06-02-2023 Albumin [Mass/Vol] 3.5 g/dL 3.2-5.0 [facility] Serum or plasma calcium osei urement (mass/volume)Ordered By: Krzysztof Wu on 06-02-2023 Calcium [Mass/Vol] 9.5 mg/dL 8.5-10.1 [facility] Serum or plasma creatinine m easurement (mass/volume)Ordered By: Krzysztof Wu on 06-02-2023 Creatinine [Mass/Vol] 1.39 mg/dL 0.55-1.02 [facility] Comment on above: The validity of the calculated GFR & GFRAA in patients over 70 years has not been determined. Clinical correlation is essential. Serum or plasma ferritin ace surement (mass/volume)Ordered By: Krzysztof Wu on 06-02-2023 Ferritin [Mass/Vol] 1345 ng/mL 8-252 [facility] Serum or plasma iron saturat ion measurement (mass fraction)Ordered By: Krzysztof Wu on 06-02-2023 Iron saturation [Mass fraction] 38.7 % 15.0-55.0 [facility] Serum or plasma urea nitroge n measurement (mass/volume)Ordered By: [facility] on 06-02-2023 Urea nitrogen [Mass/Vol] 24 mg/dL 7-18 [facility] Serum or plasma uric acid me asurement (mass/volume)Ordered By: Gopalericka Dam[facility]lect specialty hospitalsasha on 06-02-2023 Urate [Mass/Vol] 5.0 mg/dL 2.6-6.0 [facility] Comment on above: The drugs N-Acetylcy steine and Metamizole may falsely depress this assay. Thin prep Papanicolaou smear with manual screeningOrdered By: Gopalericka Wu on 06-02-2023 Thin prep Papanicolaou smear with manual screening 10.0 mg/L NO RANGE EST. [facility] Urine creatinine measurement (mass/volume)Ordered By: [facility] hospital[facility]resa Wu on 06-02-2023 Creatinine (U) [Mass/Vol] 112.00 mg/dL NO RANGE EST. [facility] Urine protein measurement (m ass/volume)Ordered By: [facility] on 06-02-2023 Protein (U) [Mass/Vol] 16.0 mg/dL 0.0-11.8 [facility] Urine protein/creatinine mas s ratioOrdered By: [facility] on 06-02-2023 Protein/Creatinine (U) [Mass ratio] 143 mg/g CRE 0-200 [facility] Basophil percentageon 2022 Basophil percentage 1.9 mg/dL 2.5-4.9 [facility] Bilirubin [Mass/Vol] 0.40 mg/dL 0.20-1.00 [facility] Comment on above: For patients on eltr ombopag therapy, use of Dimension [place] TBIL is not recommended. Chloride [Moles/Vol] 112 mmol/L 98-107 [facility] Cholesterol [Mass/Vol] 158 mg/dL <200 [facility] Comment on above: <200 mg/dL Desirable 200-240 mg/dL Borderline >240 mg/dL High Risk Glucose [Mass/Vol] 109 mg/dL 74-106 [facility] Comment on above: Fasting Glucose resu lt from 100 to 125 mg/dL suggests IMPAIRED HOMEOSTASIS per A.D.A. criteria. Potassium [Moles/Vol] 4.5 mmol/L 3.5-5.1 [facility] Protein [Mass/Vol] 6.6 g/dL 6.4-8.2 [facility] Sodium [Moles/Vol] 141 mmol/L 136-145 [facility] Triglyceride [Mass/Vol] 80 mg/dL <199 [facility] Comment on above: The drugs N-Acetylcy steine and Metamizole may falsely depress this assay.Serum Triglycerides Reference Interval Normal <150 mg/dL Borderline high 150 - 199 mg/dL High 200 - 499 mg/dL Very High > or = 500 mg/dL WBC (Bld) [#/Vol] 6.8 10*3/uL 4.4-11.0 [facility] Blood erythrocytes count (nu mber/volume)on 05-16-2023 RBC (Bld) [#/Vol] 4.54 10*6/uL 4.2-5.4 [facility] Blood hemoglobin measurement (mass/volume)on 05-16-2023 Hemoglobin (Bld) [Mass/Vol] 13.1 g/dL 12.0-15.0 [facility] Blood platelet mean volumeon 05-16-2023 Platelet mean volume (Bld) [Entitic vol] 10.2 fL 6.2-12.0 [facility] Determination of erythrocyte mean corpuscular volume (MCV)on 05-16-2023 MCV (RBC) [Entitic vol] 93.8 fL 81-99 [facility] Direct bilirubinon Bilirubin.direct [Mass/Vol] 0.14 mg/dL 0.00-0.30 [facility] Hematocrit Auto (Bld) [Volum e fraction]on 05-16-2023 Hematocrit (Bld) [Volume fraction] 42.6 % 37-47 [facility] - Chemistry and C hemistry - challengeon 05-16-2023 ALP [Catalytic activity/Vol] 95 U/L 45-117 [facility] ALT [Catalytic activity/Vol] 23 U/L 13-56 [facility] Amylase [Catalytic activity/Vol] 31 U/L 5-55 [facility] CO2 [Moles/Vol] 26.0 mmol/L 21.0-32.0 [facility] Globulin (S) [Mass/Vol] 3.4 g/dL 2.2-4.2 [facility] Urea nitrogen/Creatinine [Mass ratio] 17.5 mg/mg 10-20 [facility] - Hematology and Cell countson 05-16-2023 Erythrocyte distribution width (RBC) [Entitic vol] 46.5 fL 35.1-43.9 [facility] Erythrocyte distribution width (RBC) [Ratio] 13.7 % 11.6-14.6 [facility] MCH (RBC) [Entitic mass] 28.9 pg 27.0-32.0 [facility] MCHC Auto (RBC) [Mass/Vol]on 05-16-2023 MCHC (RBC) [Mass/Vol] 30.8 g/dL 32-36 [facility] No Panel Informationon 05-16 Estimated GFR (MDRD) Amer 62 mL/min >60 [facility] Comment on above: GFR Calc Estimated GFR (MDRD) Non-Af Amer 52 mL/min >60 [facility] Comment on above: Non- GFR Calc Tacrolimus (Prograf) Level 5.9 ng/mL 2.0-20.0 [facility] Comment on above: Trough (immediately following transplant) 15.0 Trough (steady state, 2 weeks or more after transplant): 3.0 - 8.0 Performed by LC-MS/MS technology.Performed at: [address] [id number] Director: Amaury Dubois MD, Phone: [phone] Platelets bldon 05-16-2023 Platelets (Bld) [#/Vol] 282 10*3/uL 150-450 [facility] Serum or plasma albumin osei urement (mass/volume)on 05-16-2023 Albumin [Mass/Vol] 3.2 g/dL 3.2-5.0 [facility] Serum or plasma albumin/glob ulin mass ratioon 05-16-2023 Albumin/Globulin [Mass ratio] 0.9 {ratio} 0.9-2.4 [facility] Serum or plasma calcium osei urement (mass/volume)on 05-16-2023 Calcium [Mass/Vol] 10.1 mg/dL 8.5-10.1 [facility] Serum or plasma cholesterol in HDL measurement (mass/volume)on 05-16-2023 Cholesterol in HDL [Mass/Vol] 74 mg/dL >40 [facility] Comment on above: The drugs N-Acetylcy steine and Metamizole may falsely depress this assay. Reference Range HDL <40 mg/dL Low HDL Cholesterol HDL >or= 60 mg/dL High HDL Cholesterol Serum or plasma cholesterol in VLDL measurement (mass/volume)on 05-16-2023 Cholesterol in VLDL [Mass/Vol] 16 mg/dL 5-40 [facility] Serum or plasma creatinine m easurement (mass/volume)on 05-16-2023 Creatinine [Mass/Vol] 1.14 mg/dL 0.55-1.02 [facility] Comment on above: The validity of the calculated GFR & GFRAA in patients over 70 years has not been determined. Clinical correlation is essential. Serum or plasma low density lipoprotein (LDL) cholesterol measurement (mass/volume)on 05-16-2023 Cholesterol in LDL [Mass/Vol] 68 mg/dL 0-130 [facility] Serum or plasma urea nitroge n measurement (mass/volume)on 05-16-2023 Urea nitrogen [Mass/Vol] 20 mg/dL 7-18 [facility] Thin prep Papanicolaou smear with manual screeningon 05-16-2023 Thin prep Papanicolaou smear with manual screening 12 U/L 15-37 [facility] Thin prep Papanicolaou smear with manual screening 3 5-15 [facility] Urine creatinine measurement (mass/volume)on 05-16-2023 Creatinine (U) [Mass/Vol] 86.30 mg/dL NO RANGE EST. [facility] Urine protein measurement (m ass/volume)on 05-16-2023 Protein (U) [Mass/Vol] 24.3 mg/dL 0.0-11.8 [facility] Urine protein/creatinine mas s ratioon 05-16-2023 Protein/Creatinine (U) [Mass ratio] 282 mg/g CRE 0-200 [facility] Cervical or vagninal specime n microscopic examination by cytology stain (reported asOrdered By: Debra Astudillo on 05-03-2023 Cytology report Cyto stain Doc (Cvx/Vag) Comment . [facility] Comment on above: The Pap smear is a s creening test designed to aid in thedetection of premalignant and malignant conditions of theuterine cervix. It is not a diagnostic procedure andshould not be used as the sole means of detecting cervicalcancer. Both false-positive and false-negative reports dooccur. Detection in cervical specim en of any of human papilloma virus (HPV) 16, 18, 31, 33,Ordered By: Debra Astudillo on 05-03-2023 HPV 16+18+31+33+35+39+45+ 51+52+56+58+59+66+68 DNA Probe+sig amp Ql (Cvx) Negative Negative [facility] Comment on above: This nucleic acid am plification test detects fourteen high- risk HPV types (16,18,31,33,35,39,45,51,52,56,58,59,66,68)without differentiation. Laboratory - CytologyOrdered By: Debra Astudillo on 05-03-2023 Foam Machine Operator Cyto stain Nom (Cvx/Vag) [ID] Comment . [facility] Comment on above: Flaquita Breaux, [employer]otec hnologist (ASCP) Laboratory - Miscellaneous t estsOrdered By: Debra Astudillo on 05-03-2023 Service comment (Unsp spec) [Interp] Comment . [facility] Comment on above: This liquid based Th inPrep(R) pap test was screened withthe use of an image guided system. Service comment (Unsp spec) [Interp] . . [facility] Liquid-based cerv Pap + CT/G C by NORA w reflex to high-risk HPV for ASCUSOrdered By: Debra Astudillo on 05-03-2023 Cytology report Cyto stain.thin prep Doc (Cvx/Vag) Comment . [facility] Comment on above: Criteria not met, HP V Genotype not performed.Performed at: [facility] - [facility] Cyto [address] [place], [place] [id number] Director: Tom Sky MD, Phone: [phone] at: - [facility] [id number] Director: Prabha Deras MD, Phone: [phone] at: = - [facility] [id number] Director: Prabha Deras MD, Phone: [phone] No Panel InformationOrdered By: Debra Astudillo on 05-03-2023 Pathology report final diagnosis Narrative Comment . [facility] Comment on above: NEGATIVE FOR INTRAEP ITHELIAL LESION OR MALIGNANCY. Absolute lymphocyte counton 03-14-2023 Lymphocytes Auto (Unsp spec) [#/Vol] 1.43 10*3/uL 0.83-4.51 [facility] Basophil percentageon 2022 Basophils/100 WBC (Bld) 0.9 % 0-1 [facility] Bilirubin [Mass/Vol] 0.40 mg/dL 0.20-1.00 [facility] Comment on above: For patients on eltr ombopag therapy, use of Dimension [place] TBIL is not recommended. Chloride [Moles/Vol] 110 mmol/L 98-107 [facility] Eosinophils/100 WBC (Bld) 3.3 % 0-5 [facility] Glucose [Mass/Vol] 109 mg/dL 74-106 [facility] Comment on above: Fasting Glucose resu lt from 100 to 125 mg/dL suggests IMPAIRED HOMEOSTASIS per A.D.A. criteria. Neutrophils (Bld) [#/Vol] 9.6 10*3/uL 2.0-7.7 [facility] Neutrophils/100 WBC (Bld) 73.1 % 47-70 [facility] Potassium [Moles/Vol] 4.4 mmol/L 3.5-5.1 [facility] Protein [Mass/Vol] 6.5 g/dL 6.4-8.2 [facility] Sodium [Moles/Vol] 141 mmol/L 136-145 [facility] WBC (Bld) [#/Vol] 13.2 10*3/uL 4.4-11.0 [facility] Blood erythrocytes count (nu mber/volume)on 03-14-2023 RBC (Bld) [#/Vol] 4.36 10*6/uL 4.2-5.4 [facility] Blood hemoglobin measurement (mass/volume)on 03-14-2023 Hemoglobin (Bld) [Mass/Vol] 12.7 g/dL 12.0-15.0 [facility] Blood lymphocytes/100 leukoc yteson 03-14-2023 Lymphocytes/100 WBC (Bld) 10.8 % 19-41 [facility] Blood monocytes/100 leukocyt eson 03-14-2023 Monocytes/100 WBC (Bld) 10.2 % 0-10 [facility] Blood platelet mean volumeon 03-14-2023 Platelet mean volume (Bld) [Entitic vol] 10.4 fL 6.2-12.0 [facility] Determination of erythrocyte mean corpuscular volume (MCV)on 03-14-2023 MCV (RBC) [Entitic vol] 93.6 fL 81-99 [facility] Hematocrit Auto (Bld) [Volum e fraction]on 03-14-2023 Hematocrit (Bld) [Volume fraction] 40.8 % 37-47 [facility] Laboratory - Chemistry and C hemistry - challengeon 03-14-2023 ALP [Catalytic activity/Vol] 115 U/L 45-117 [facility] ALT [Catalytic activity/Vol] 29 U/L 13-56 [facility] CO2 [Moles/Vol] 24.0 mmol/L 21.0-32.0 [facility] Globulin (S) [Mass/Vol] 3.1 g/dL 2.2-4.2 [facility] Urea nitrogen/Creatinine [Mass ratio] 36.4 mg/mg 10- [facility] Laboratory - Hematology and Cell countson 03-14-2023 Erythrocyte distribution width (RBC) [Entitic vol] 51.7 fL 35.1-43.9 [facility] Erythrocyte distribution width (RBC) [Ratio] 14.9 % 11.6-14.6 [facility] Immature granulocytes/100 WBC (Bld) 1.700 % 0.0-0.9 [facility] Comment on above: IG% - Immature Granu locytes (promyelocytes, myelocytes and metamyelocytes) > 1% indicates that a LEFT SHIFT is Present. MCH (RBC) [Entitic mass] 29.1 pg 27.0-32.0 [facility] Nucleated RBC/100 WBC (Bld) [Ratio] 0 % 0-5 [facility] MCHC Auto (RBC) [Mass/Vol]on 03-14-2023 MCHC (RBC) [Mass/Vol] 31.1 g/dL 32-36 [facility] No Panel Informationon 03-14 Estimated GFR (MDRD) Amer 60 mL/min >60 [facility] Comment on above: GFR Calc Estimated GFR (MDRD) Non-Af Amer 50 mL/min >60 [facility] Comment on above: Non- GFR Calc Tacrolimus (Prograf) Level 4.5 ng/mL 2.0-20.0 [facility] Comment on above: Trough (immediately following transplant) 15.0 Trough (steady state, 2 weeks or more after transplant): 3.0 - 8.0 Performed by LC-MS/MS technology.Performed at: [address] [id number] Director: Amaury Dubois MD, Phone: [phone] Platelets bldon 03-14-2023 Platelets (Bld) [#/Vol] 344 10*3/uL 150-450 [facility] Serum or plasma albumin osei urement (mass/volume)on 03-14-2023 Albumin [Mass/Vol] 3.4 g/dL 3.2-5.0 [facility] Serum or plasma albumin/glob ulin mass ratioon 03-14-2023 Albumin/Globulin [Mass ratio] 1.1 {ratio} 0.9-2.4 [facility] Serum or plasma calcium osei urement (mass/volume)on 03-14-2023 Calcium [Mass/Vol] 11.2 mg/dL 8.5-10.1 [facility] Serum or plasma creatinine m easurement (mass/volume)on 03-14-2023 Creatinine [Mass/Vol] 1.18 mg/dL 0.55-1.02 [facility] Comment on above: The validity of the calculated GFR & GFRAA in patients over 70 years has not been determined. Clinical correlation is essential. Serum or plasma urea nitroge n measurement (mass/volume)on 03-14-2023 Urea nitrogen [Mass/Vol] 43 mg/dL 7-18 [facility] Thin prep Papanicolaou smear with manual screeningon 03-14-2023 Thin prep Papanicolaou smear with manual screening 10 U/L 15-37 [facility] Thin prep Papanicolaou smear with manual screening 7 5-15 [facility] Culture, urineOrdered By: Bassam Banda on 03-03-2023 Bacteria identified Cx Nom (U) Mixed Gram Pos & Gram Neg Org [facility] Bacteria identified Cx Nom (U) Mixed Gram Pos & Gram Neg Org [facility] Absolute lymphocyte counton 02-14-2023 Lymphocytes Auto (Unsp spec) [#/Vol] 0.71 10*3/uL 0.83-4.51 [facility] Basophil percentageon 2022 Basophils/100 WBC (Bld) 0.3 % 0-1 [facility] Bilirubin [Mass/Vol] 0.50 mg/dL 0.20-1.00 [facility] Comment on above: For patients on eltr ombopag therapy, use of Dimension [place] TBIL is not recommended. Chloride [Moles/Vol] 110 mmol/L 98-107 [facility] Eosinophils/100 WBC (Bld) 0.1 % 0-5 [facility] Glucose [Mass/Vol] 120 mg/dL 74-106 [facility] Comment on above: Fasting Glucose resu lt from 100 to 125 mg/dL suggests IMPAIRED HOMEOSTASIS per A.D.A. criteria. Neutrophils (Bld) [#/Vol] 15.3 10*3/uL 2.0-7.7 [facility] Neutrophils/100 WBC (Bld) 89.5 % 47-70 [facility] Potassium [Moles/Vol] 4.4 mmol/L 3.5-5.1 [facility] Protein [Mass/Vol] 6.4 g/dL 6.4-8.2 [facility] Sodium [Moles/Vol] 139 mmol/L 136-145 [facility] WBC (Bld) [#/Vol] 17.1 10*3/uL 4.4-11.0 [facility] Bilirubin Test strip Ql (U)O rdered By: Carson Russell on 02-14-2023 Bilirubin Ql (U) Negative Negative [facility] Blood erythrocytes count (nu mber/volume)on 02-14-2023 RBC (Bld) [#/Vol] 4.36 10*6/uL 4.2-5.4 [facility] Blood hemoglobin measurement (mass/volume)on 02-14-2023 Hemoglobin (Bld) [Mass/Vol] 12.5 g/dL 12.0-15.0 [facility] Blood lymphocytes/100 leukoc yteson 02-14-2023 Lymphocytes/100 WBC (Bld) 4.2 % 19-41 [facility] Blood monocytes/100 leukocyt eson 02-14-2023 Monocytes/100 WBC (Bld) 4.7 % 0-10 [facility] Blood platelet mean volumeon 02-14-2023 Platelet mean volume (Bld) [Entitic vol] 10.7 fL 6.2-12.0 [facility] Culture, urineOrdered By: Ángel Russell on 02-14-2023 Bacteria identified Cx Nom (U) ESBL Escherichia coli [facility] Bacteria identified Cx Nom (U) ESBL Escherichia coli [facility] Determination of erythrocyte mean corpuscular volume (MCV)on 02-14-2023 MCV (RBC) [Entitic vol] 89.2 fL 81-99 [facility] Hematocrit Auto (Bld) [Volum e fraction]on 02-14-2023 Hematocrit (Bld) [Volume fraction] 38.9 % 37-47 [facility] Ketones Test strip Ql (U)Ord ered By: Carson Russell on 02-14-2023 Ketones Ql (U) Negative Negative [facility] Laboratory - Chemistry and C hemistry - challengeon 02-14-2023 ALP [Catalytic activity/Vol] 93 U/L 45-117 [facility] ALT [Catalytic activity/Vol] 23 U/L 13-56 [facility] CO2 [Moles/Vol] 23.0 mmol/L 21.0-32.0 [facility] Globulin (S) [Mass/Vol] 3.6 g/dL 2.2-4.2 [facility] Urea nitrogen/Creatinine [Mass ratio] 38.5 mg/mg 10-20 [facility] Laboratory - Hematology and Cell countson 02-14-2023 Erythrocyte distribution width (RBC) [Entitic vol] 47.0 fL 35.1-43.9 [facility] Erythrocyte distribution width (RBC) [Ratio] 14.5 % 11.6-14.6 [facility] Immature granulocytes/100 WBC (Bld) 1.200 % 0.0-0.9 [facility] Comment on above: IG% - Immature Granu locytes (promyelocytes, myelocytes and metamyelocytes) > 1% indicates that a LEFT SHIFT is Present. MCH (RBC) [Entitic mass] 28.7 pg 27.0-32.0 [facility] Nucleated RBC/100 WBC (Bld) [Ratio] 0 % 0-5 [facility] MCHC Auto (RBC) [Mass/Vol]on 02-14-2023 MCHC (RBC) [Mass/Vol] 32.1 g/dL 32-36 [facility] Nitrite Test strip Ql (U)Ord ered By: Carson Russell on 02-14-2023 Nitrite Ql (U) Negative Negative [facility] No Panel Informationon 02-14 Estimated GFR (MDRD) Amer 61 mL/min >60 [facility] Comment on above: GFR Calc Estimated GFR (MDRD) Non-Af Amer 50 mL/min >60 [facility] Comment on above: Non- GFR Calc Tacrolimus (Prograf) Level 10.0 ng/mL 2.0-20.0 [facility] Comment on above: Trough (immediately following transplant) 15.0 Trough (steady state, 2 weeks or more after transplant): 3.0 - 8.0 Performed by LC-MS/MS technology.Performed at: [facility] [id number] Director: Amaury Dubois MD, Phone: [phone] Platelets bldon 02-14-2023 Platelets (Bld) [#/Vol] 360 10*3/uL 150-450 [facility] Protein Test strip Ql (U)Ord ered By: Carson Russell on 02-14-2023 Protein Ql (U) 15 mg/dl Negative [facility] Serum or plasma albumin osei urement (mass/volume)on 02-14-2023 Albumin [Mass/Vol] 2.8 g/dL 3.2-5.0 [facility] Serum or plasma albumin/glob ulin mass ratioon 02-14-2023 Albumin/Globulin [Mass ratio] 0.8 {ratio} 0.9-2.4 [facility] Serum or plasma calcium osei urement (mass/volume)on 02-14-2023 Calcium [Mass/Vol] 10.0 mg/dL 8.5-10.1 [facility] Serum or plasma creatinine m easurement (mass/volume)on 02-14-2023 Creatinine [Mass/Vol] 1.17 mg/dL 0.55-1.02 [facility] Comment on above: The validity of the calculated GFR & GFRAA in patients over 70 years has not been determined. Clinical correlation is essential. Serum or plasma urea nitroge n measurement (mass/volume)on 02-14-2023 Urea nitrogen [Mass/Vol] 45 mg/dL 7-18 [facility] Thin prep Papanicolaou smear with manual screeningon 02-14-2023 Thin prep Papanicolaou smear with manual screening 10 U/L 15-37 [facility] Thin prep Papanicolaou smear with manual screening 6 5-15 [facility] Urine blood detectionOrdered By: Carson Russell on 02-14-2023 RBC Ql (U) 10 /ul Negative [facility] Urine clarityOrdered By: Serene Russell on 02-14-2023 Clarity (U) Clear Clear [facility] Urine color determinationOrd ered By: Carson Russell on 02-14-2023 Color (U) Yellow Yellow [facility] Urine glucose detectionOrder ed By: Carson Russell on 02-14-2023 Glucose Ql (U) Normal mg/dl Normal [facility] Urine leukocyte esterase det ection by dipstickOrdered By: Carson Russell on 02-14-2023 Leukocyte esterase Test strip Ql (U) 100 /ul Negative [facility] Urine pHOrdered By: Carson ocampo on 02-14-2023 pH (U) 6.0 [pH] 5.0 - 8.0 [facility] Urine specific gravity measu rementOrdered By: Carson Russell on 02-14-2023 Specific gravity (U) [Rel density] 1.015 1.002-1.03 0 [facility] Urobilinogen Auto test strip Ql (U)Ordered By: Carson Russell on 02-14-2023 Urobilinogen Ql (U) Normal mg/dl Normal [facility] Absolute lymphocyte countOrd ered By: Carson Russell on 02-11-2023 Lymphocytes Auto (Unsp spec) [#/Vol] 0.38 10*3/uL 0.83-4.51 [facility] Basophil percentageOrdered B y: Carson Russell on 02-11-2023 Basophils/100 WBC (Bld) 0.2 % 0-1 [facility] Bilirubin [Mass/Vol] 0.50 mg/dL 0.20-1.00 [facility] Comment on above: For patients on eltr ombopag therapy, use of Dimension [place] TBIL is not recommended. Chloride [Moles/Vol] 107 mmol/L 98-107 [facility] Eosinophils/100 WBC (Bld) 0.2 % 0-5 [facility] Glucose [Mass/Vol] 123 mg/dL 74-106 [facility] Comment on above: Fasting Glucose resu lt from 100 to 125 mg/dL suggests IMPAIRED HOMEOSTASIS per A.D.A. criteria. Neutrophils (Bld) [#/Vol] 11.2 10*3/uL 2.0-7.7 [facility] Neutrophils/100 WBC (Bld) 87.2 % 47-70 [facility] Potassium [Moles/Vol] 4.2 mmol/L 3.5-5.1 [facility] Protein [Mass/Vol] 6.8 g/dL 6.4-8.2 [facility] Sodium [Moles/Vol] 137 mmol/L 136-145 [facility] WBC (Bld) [#/Vol] 12.9 10*3/uL 4.4-11.0 [facility] Blood erythrocytes count (nu mber/volume)Ordered By: Carson Russell on 02-11-2023 RBC (Bld) [#/Vol] 4.35 10*6/uL 4.2-5.4 [facility] Blood hemoglobin measurement (mass/volume)Ordered By: Carson Russell on 02-11-2023 Hemoglobin (Bld) [Mass/Vol] 12.5 g/dL 12.0-15.0 [facility] Blood lymphocytes/100 leukoc ytesOrdered By: Carson Russell on 02-11-2023 Lymphocytes/100 WBC (Bld) 3.0 % 19-41 [facility] Blood monocytes/100 leukocyt esOrdered By: Carson Russell on 02-11-2023 Monocytes/100 WBC (Bld) 8.9 % 0-10 [facility] Blood platelet mean volumeOr dered By: Carson Russell on 02-11-2023 Platelet mean volume (Bld) [Entitic vol] 10.2 fL 6.2-12.0 [facility] Determination of erythrocyte mean corpuscular volume (MCV)Ordered By: Carson Russell on 02-11-2023 MCV (RBC) [Entitic vol] 91.5 fL 81-99 [facility] Hematocrit Auto (Bld) [Volum e fraction]Ordered By: Carson Russell on 02-11-2023 Hematocrit (Bld) [Volume fraction] 39.8 % 37-47 [facility] Laboratory - Chemistry and C hemistry - challengeOrdered By: Carson Russell on 02-11-2023 ALP [Catalytic activity/Vol] 81 U/L 45-117 [facility] ALT [Catalytic activity/Vol] 27 U/L 13-56 [facility] CO2 [Moles/Vol] 24.0 mmol/L 21.0-32.0 [facility] Globulin (S) [Mass/Vol] 3.7 g/dL 2.2-4.2 [facility] Urea nitrogen/Creatinine [Mass ratio] 19.5 mg/mg 10-20 [facility] Laboratory - Hematology and Cell countsOrdered By: Carson Russell on 02-11-2023 Erythrocyte distribution width (RBC) [Entitic vol] 48.4 fL 35.1-43.9 [facility] Erythrocyte distribution width (RBC) [Ratio] 14.4 % 11.6-14.6 [facility] Immature granulocytes/100 WBC (Bld) 0.500 % 0.0-0.9 [facility] Comment on above: IG% - Immature Granu locytes (promyelocytes, myelocytes and metamyelocytes) > 1% indicates that a LEFT SHIFT is Present. MCH (RBC) [Entitic mass] 28.7 pg 27.0-32.0 [facility] Nucleated RBC/100 WBC (Bld) [Ratio] 0 % 0-5 [facility] MCHC Auto (RBC) [Mass/Vol]Or dered By: Carson Russell on 02-11-2023 MCHC (RBC) [Mass/Vol] 31.4 g/dL 32-36 [facility] No Panel InformationOrdered By: Carson Russell on 02-11-2023 Anti-Nuclear Antibody Screen Negative Negative [facility] Comment on above: Performed at: [facility] [address] [id number] Director: Marcello Kwon PhD, Phone: [phone] Estimated GFR (MDRD) Amer 55 mL/min >60 [facility] Comment on above: GFR Calc Estimated GFR (MDRD) Non-Af Amer 45 mL/min >60 [facility] Comment on above: Non- GFR Calc Thyroid Stimulating Hormone (TSH) 1.30 uIU/mL 0.358-3.74 [facility] Platelets bldOrdered By: Serene Russell on 02-11-2023 Platelets (Bld) [#/Vol] 251 10*3/uL 150-450 [facility] Serum or plasma C reactive p rotein measurement (mass/volume)Ordered By: Carson Russell on 02-11-2023 CRP [Mass/Vol] 148.00 mg/L 0.0-3.0 [facility] Comment on above: C-Reactive Protein ( CRP) provides useful information for thediagnosis, therapy and monitoring of inflammatory processesand associated diseases. For the evaluation of Relative Riskfor Cardiovascular Disease, a High Sensitivity CRP (HSCRP)should be ordered. Serum or plasma albumin osei urement (mass/volume)Ordered By: Carson Russell on 02-11-2023 Albumin [Mass/Vol] 3.1 g/dL 3.2-5.0 [facility] Serum or plasma albumin/glob ulin mass ratioOrdered By: Carson Russell on 02-11-2023 Albumin/Globulin [Mass ratio] 0.8 {ratio} 0.9-2.4 [facility] Serum or plasma calcium osei urement (mass/volume)Ordered By: Carson Russell on 02-11-2023 Calcium [Mass/Vol] 9.5 mg/dL 8.5-10.1 [facility] Serum or plasma creatinine m easurement (mass/volume)Ordered By: Carson Russell on 02-11-2023 Creatinine [Mass/Vol] 1.28 mg/dL 0.55-1.02 [facility] Comment on above: The validity of the calculated GFR & GFRAA in patients over 70 years has not been determined. Clinical correlation is essential. Serum or plasma urea nitroge n measurement (mass/volume)Ordered By: Carson Russell on 02-11-2023 Urea nitrogen [Mass/Vol] 25 mg/dL 7-18 [facility] Thin prep Papanicolaou smear with manual screeningOrdered By: Carson Russell on 02-11-2023 Thin prep Papanicolaou smear with manual screening 12 U/L 15-37 [facility] Thin prep Papanicolaou smear with manual screening 6 5-15 [facility] Thin prep Papanicolaou smear with manual screening Negative Negative [facility] Comment on above: Lyme antibodies not detected. Reflex testing is notindicated.No laboratory evidence of infection with B. burgdorferi(Lyme disease). Negative results may occur in patientsrecently infected (less than or equal to 14 days) with B.burgdorferi. If recent infection is suspected, repeattesting on a new sample collected in 7 to 14 days isrecommended.Performed at: - [facility] [id number] Director: Marcello Kwon PhD, Phone: [phone] Basophil percentageon 2022 Chloride [Moles/Vol] 117 mmol/L 98-107 [facility] Glucose [Mass/Vol] 103 mg/dL 74-106 [facility] Comment on above: Fasting Glucose resu lt from 100 to 125 mg/dL suggests IMPAIRED HOMEOSTASIS per A.D.A. criteria. Potassium [Moles/Vol] 4.2 mmol/L 3.5-5.1 [facility] Sodium [Moles/Vol] 141 mmol/L 136-145 [facility] Laboratory - Chemistry and C hemistry - challengeon 12-13-2022 CO2 [Moles/Vol] 21.0 mmol/L 21.0-32.0 [facility] Urea nitrogen/Creatinine [Mass ratio] 24.8 mg/mg 03-25 [facility] No Panel Informationon 12-13 Estimated GFR (MDRD) Amer 72 mL/min >60 [facility] Comment on above: GFR Calc Estimated GFR (MDRD) Non-Af Amer 59 mL/min >60 [facility] Comment on above: Non- GFR Calc Tacrolimus (Prograf) Level 4.7 ng/mL 2.0-20.0 [facility] Comment on above: Trough (immediately following transplant) 15.0 Trough (steady state, 2 weeks or more after transplant): 3.0 - 8.0 Performed by LC-MS/MS technology.Performed at: [facility] [id number] Director: Amaury Dubois MD, Phone: [phone] Serum or plasma calcium osei urement (mass/volume)on 12-13-2022 Calcium [Mass/Vol] 9.7 mg/dL 8.5-10.1 [facility] Serum or plasma creatinine m easurement (mass/volume)on 12-13-2022 Creatinine [Mass/Vol] 1.01 mg/dL 0.55-1.02 [facility] Comment on above: The validity of the calculated GFR & GFRAA in patients over 70 years has not been determined. Clinical correlation is essential. Serum or plasma urea nitroge n measurement (mass/volume)on 12-13-2022 Urea nitrogen [Mass/Vol] 25 mg/dL 7-18 [facility] Thin prep Papanicolaou smear with manual screeningon 12-13-2022 Thin prep Papanicolaou smear with manual screening 3 5-15 [facility] Basophil percentageOrdered B y: Dr. Wu on 11-16-2022 Basophil percentage 2.2 mg/dL 2.5-4.9 [facility] Bilirubin [Mass/Vol] 0.30 mg/dL 0.20-1.00 [facility] Comment on above: For patients on eltr ombopag therapy, use of Dimension [place] TBIL is not recommended. Chloride [Moles/Vol] 117 mmol/L 98-107 [facility] Glucose [Mass/Vol] 105 mg/dL 74-106 [facility] Comment on above: Fasting Glucose resu lt from 100 to 125 mg/dL suggests IMPAIRED HOMEOSTASIS per A.D.A. criteria. Potassium [Moles/Vol] 4.6 mmol/L 3.5-5.1 [facility] Protein [Mass/Vol] 6.4 g/dL 6.4-8.2 [facility] Sodium [Moles/Vol] 143 mmol/L 136-145 [facility] WBC (Bld) [#/Vol] 8.3 10*3/uL 4.4-11.0 [facility] Blood erythrocytes count (nu mber/volume)Ordered By: Dr. Wu on 11-16-2022 RBC (Bld) [#/Vol] 4.61 10*6/uL 4.2-5.4 [facility] Blood hemoglobin measurement (mass/volume)Ordered By: Dr. Wu on 11-16-2022 Hemoglobin (Bld) [Mass/Vol] 13.2 g/dL 12.0-15.0 [facility] Blood platelet mean volumeOr dered By: Dr. Wu on 11-16-2022 Platelet mean volume (Bld) [Entitic vol] 10.2 fL 6.2-12.0 [facility] Determination of erythrocyte mean corpuscular volume (MCV)Ordered By: Dr. Wu on 11-16-2022 MCV (RBC) [Entitic vol] 91.5 fL 81-99 [facility] Hematocrit Auto (Bld) [Volum e fraction]Ordered By: Dr. Wu on 11-16-2022 Hematocrit (Bld) [Volume fraction] 42.2 % 37-47 [facility] Iron measurement (mass/mass) Ordered By: Dr. Wu on 11-16-2022 Iron (Unsp spec) [Mass/Mass] 62 ug/dL 50-170 [facility] Laboratory - Chemistry and C hemistry - challengeOrdered By: Dr. Wu on 11-16-2022 ALP [Catalytic activity/Vol] 101 U/L 45-117 [facility] ALT [Catalytic activity/Vol] 22 U/L 13-56 [facility] CO2 [Moles/Vol] 23.0 mmol/L 21.0-32.0 [facility] Globulin (S) [Mass/Vol] 3.0 g/dL 2.2-4.2 [facility] Magnesium [Mass/Vol] 2.2 mg/dL 1.6-2.6 [facility] Urea nitrogen/Creatinine [Mass ratio] 22.7 mg/mg 10-20 [facility] - Hematology and Cell countsOrdered By: Dr. Wu on 11-16-2022 Erythrocyte distribution width (RBC) [Entitic vol] 46.5 fL 35.1-43.9 [facility] Erythrocyte distribution width (RBC) [Ratio] 13.8 % 11.6-14.6 [facility] MCH (RBC) [Entitic mass] 28.6 pg 27.0-32.0 [facility] MCHC Auto (RBC) [Mass/Vol]Or dered By: Dr. Wu on 11-16-2022 MCHC (RBC) [Mass/Vol] 31.3 g/dL 32-36 [facility] No Panel InformationOrdered By: Dr. Wu on 11-16-2022 Estimated GFR (MDRD) Amer 60 mL/min >60 [facility] Comment on above: GFR Calc Estimated GFR (MDRD) Non-Af Amer 49 mL/min >60 [facility] Comment on above: Non- GFR Calc Total Iron Binding Capacity 238 ug/dL 250-450 [facility] Urine Microalbumin/Creatini ne Ratio 79.7 mg/g CRE <30 [facility] No Panel InformationOrdered By: Krzysztof Wu on 11-16-2022 Tacrolimus (Prograf) Level 3.5 ng/mL 2.0-20.0 [facility] Comment on above: Trough (immediately following transplant) 15.0 Trough (steady state, 2 weeks or more after transplant): 3.0 - 8.0 Performed by LC-MS/MS technology.Performed at: [facility] [id number] Director: Amaury Dubois MD, Phone: [phone] Platelets bldOrdered By: Dr. Wu on 11-16-2022 Platelets (Bld) [#/Vol] 310 10*3/uL 150-450 [facility] Serum or plasma albumin osei urement (mass/volume)Ordered By: Dr. Wu on 11-16-2022 Albumin [Mass/Vol] 3.4 g/dL 3.2-5.0 [facility] Serum or plasma albumin/glob ulin mass ratioOrdered By: Dr. Wu on 11-16-2022 Albumin/Globulin [Mass ratio] 1.1 {ratio} 0.9-2.4 [facility] Serum or plasma calcium osei urement (mass/volume)Ordered By: Dr. Wu on 11-16-2022 Calcium [Mass/Vol] 10.2 mg/dL 8.5-10.1 [facility] Serum or plasma creatinine m easurement (mass/volume)Ordered By: Dr. Wu on 11-16-2022 Creatinine [Mass/Vol] 1.19 mg/dL 0.55-1.02 [facility] Comment on above: The validity of the calculated GFR & GFRAA in patients over 70 years has not been determined. Clinical correlation is essential. Serum or plasma ferritin ace surement (mass/volume)Ordered By: Dr. Wu on 11-16-2022 Ferritin [Mass/Vol] 1384 ng/mL 8-252 [facility] Serum or plasma iron saturat ion measurement (mass fraction)Ordered By: Dr. Wu on 11-16-2022 Iron saturation [Mass fraction] 26.1 % 15.0-55.0 [facility] Serum or plasma urea nitroge n measurement (mass/volume)Ordered By: Dr. Wu on 11-16-2022 Urea nitrogen [Mass/Vol] 27 mg/dL 7-18 [facility] Serum or plasma uric acid me asurement (mass/volume)Ordered By: Dr. Wu on 11-16-2022 Urate [Mass/Vol] 4.2 mg/dL 2.6-6.0 [facility] Comment on above: The drugs N-Acetylcy steine and Metamizole may falsely depress this assay. Thin prep Papanicolaou smear with manual screeningOrdered By: Dr. Wu on 11-16-2022 Thin prep Papanicolaou smear with manual screening 15 U/L 15-37 [facility] Thin prep Papanicolaou smear with manual screening 3 5-15 [facility] Thin prep Papanicolaou smear with manual screening 80.5 mg/L NO RANGE EST. [facility] Urine creatinine measurement (mass/volume)Ordered By: Dr. Wu on 11-16-2022 Creatinine (U) [Mass/Vol] 101.00 mg/dL NO RANGE EST. [facility] Basophil percentageon 2022 Basophil percentage 2.9 mg/dL 2.5-4.9 [facility] Bilirubin [Mass/Vol] 0.30 mg/dL 0.20-1.00 [facility] Comment on above: For patients on eltr ombopag therapy, use of Dimension [place] TBIL is not recommended. Chloride [Moles/Vol] 113 mmol/L 98-107 [facility] Cholesterol [Mass/Vol] 168 mg/dL <200 [facility] Comment on above: <200 mg/dL Desirable 200-240 mg/dL Borderline >240 mg/dL High Risk Glucose [Mass/Vol] 107 mg/dL 74-106 [facility] Comment on above: Fasting Glucose resu lt from 100 to 125 mg/dL suggests IMPAIRED HOMEOSTASIS per A.D.A. criteria. Potassium [Moles/Vol] 3.9 mmol/L 3.5-5.1 [facility] Protein [Mass/Vol] 6.8 g/dL 6.4-8.2 [facility] Sodium [Moles/Vol] 142 mmol/L 136-145 [facility] Triglyceride [Mass/Vol] 160 mg/dL <199 [facility] Comment on above: The drugs N-Acetylcy steine and Metamizole may falsely depress this assay.Serum Triglycerides Reference Interval Normal <150 mg/dL Borderline high 150 - 199 mg/dL High 200 - 499 mg/dL Very High > or = 500 mg/dL WBC (Bld) [#/Vol] 8.1 10*3/uL 4.4-11.0 [facility] Blood erythrocytes count (nu mber/volume)on 11-08-2022 RBC (Bld) [#/Vol] 4.61 10*6/uL 4.2-5.4 [facility] Blood hemoglobin measurement (mass/volume)on 11-08-2022 Hemoglobin (Bld) [Mass/Vol] 13.3 g/dL 12.0-15.0 [facility] Blood platelet mean volumeon 11-08-2022 Platelet mean volume (Bld) [Entitic vol] 10.7 fL 6.2-12.0 [facility] Determination of erythrocyte mean corpuscular volume (MCV)on 11-08-2022 MCV (RBC) [Entitic vol] 91.8 fL 81-99 [facility] Hematocrit Auto (Bld) [Volum e fraction]on 11-08-2022 Hematocrit (Bld) [Volume fraction] 42.3 % 37-47 [facility] Laboratory - Chemistry and C hemistry - challengeon 11-08-2022 ALP [Catalytic activity/Vol] 112 U/L 45-117 [facility] ALT [Catalytic activity/Vol] 21 U/L 13-56 [facility] Amylase [Catalytic activity/Vol] 37 U/L 5-55 [facility] CO2 [Moles/Vol] 23.0 mmol/L 21.0-32.0 [facility] Globulin (S) [Mass/Vol] 3.4 g/dL 2.2-4.2 [facility] Urea nitrogen/Creatinine [Mass ratio] 39.5 mg/mg 10-20 [facility] - Hematology and Cell countson 11-08-2022 Erythrocyte distribution width (RBC) [Entitic vol] 46.4 fL 35.1-43.9 [facility] Erythrocyte distribution width (RBC) [Ratio] 13.9 % 11.6-14.6 [facility] MCH (RBC) [Entitic mass] 28.9 pg 27.0-32.0 [facility] MCHC Auto (RBC) [Mass/Vol]on 11-08-2022 MCHC (RBC) [Mass/Vol] 31.4 g/dL 32-36 [facility] No Panel Informationon 11-08 Estimated GFR (MDRD) Amer 76 mL/min >60 [facility] Comment on above: GFR Calc Estimated GFR (MDRD) Non-Af Amer 63 mL/min >60 [facility] Comment on above: Non- GFR Calc Tacrolimus (Prograf) Level 2.7 ng/mL 2.0-20.0 [facility] Comment on above: Trough (immediately following transplant) 15.0 Trough (steady state, 2 weeks or more after transplant): 3.0 - 8.0 Performed by LC-MS/MS technology.Performed at: [facility] [id number] Director: Amaury Dubois MD, Phone: [phone] Platelets bldon 11-08-2022 Platelets (Bld) [#/Vol] 301 10*3/uL 150-450 [facility] Serum or plasma albumin osei urement (mass/volume)on 11-08-2022 Albumin [Mass/Vol] 3.4 g/dL 3.2-5.0 [facility] Serum or plasma albumin/glob ulin mass ratioon 11-08-2022 Albumin/Globulin [Mass ratio] 1.0 {ratio} 0.9-2.4 [facility] Serum or plasma calcium osei urement (mass/volume)on 11-08-2022 Calcium [Mass/Vol] 11.0 mg/dL 8.5-10.1 [facility] Serum or plasma cholesterol in HDL measurement (mass/volume)on 11-08-2022 Cholesterol in HDL [Mass/Vol] 62 mg/dL >40 [facility] Comment on above: The drugs N-Acetylcy steine and Metamizole may falsely depress this assay. Reference Range HDL <40 mg/dL Low HDL Cholesterol HDL >or= 60 mg/dL High HDL Cholesterol Serum or plasma cholesterol in VLDL measurement (mass/volume)on 11-08-2022 Cholesterol in VLDL [Mass/Vol] 32 mg/dL 5-40 [facility] Serum or plasma creatinine m easurement (mass/volume)on 11-08-2022 Creatinine [Mass/Vol] 0.96 mg/dL 0.55-1.02 [facility] Comment on above: The validity of the calculated GFR & GFRAA in patients over 70 years has not been determined. Clinical correlation is essential. Serum or plasma low density lipoprotein (LDL) cholesterol measurement (mass/volume)on 11-08-2022 Cholesterol in LDL [Mass/Vol] 74 mg/dL 0-130 [facility] Serum or plasma urea nitroge n measurement (mass/volume)on 11-08-2022 Urea nitrogen [Mass/Vol] 38 mg/dL 7-18 [facility] Thin prep Papanicolaou smear with manual screeningon 11-08-2022 Thin prep Papanicolaou smear with manual screening 14 U/L 15-37 [facility] Thin prep Papanicolaou smear with manual screening 6 5-15 [facility] Urine creatinine measurement (mass/volume)on 11-08-2022 Creatinine (U) [Mass/Vol] 82.70 mg/dL NO RANGE EST. [facility] Urine protein measurement (m ass/volume)on 11-08-2022 Protein (U) [Mass/Vol] 26.3 mg/dL 0.0-11.8 [facility] Urine protein/creatinine mas s ratioon 11-08-2022 Protein/Creatinine (U) [Mass ratio] 318 mg/g CRE 0-200 [facility] Basophil percentageon 2022 Basophil percentage 1.8 mg/dL 2.5-4.9 [facility] Bilirubin [Mass/Vol] 0.20 mg/dL 0.20-1.00 [facility] Comment on above: For patients on eltr ombopag therapy, use of Dimension [place] TBIL is not recommended. Chloride [Moles/Vol] 111 mmol/L 98-107 [facility] Glucose [Mass/Vol] 109 mg/dL 74-106 [facility] Comment on above: Fasting Glucose resu lt from 100 to 125 mg/dL suggests IMPAIRED HOMEOSTASIS per A.D.A. criteria. Potassium [Moles/Vol] 4.4 mmol/L 3.5-5.1 [facility] Protein [Mass/Vol] 6.6 g/dL 6.4-8.2 [facility] Sodium [Moles/Vol] 138 mmol/L 136-145 [facility] WBC (Bld) [#/Vol] 8.9 10*3/uL 4.4-11.0 [facility] Blood erythrocytes count (nu mber/volume)on 09-13-2022 RBC (Bld) [#/Vol] 4.36 10*6/uL 4.2-5.4 [facility] Blood hemoglobin measurement (mass/volume)on 09-13-2022 Hemoglobin (Bld) [Mass/Vol] 12.9 g/dL 12.0-15.0 [facility] Blood platelet mean volumeon 09-13-2022 Platelet mean volume (Bld) [Entitic vol] 10.0 fL 6.2-12.0 [facility] Determination of erythrocyte mean corpuscular volume (MCV)on 09-13-2022 MCV (RBC) [Entitic vol] 93.6 fL 81-99 [facility] Hematocrit Auto (Bld) [Volum e fraction]on 09-13-2022 Hematocrit (Bld) [Volume fraction] 40.8 % 37-47 [facility] - Chemistry and C hemistry - challengeon 09-13-2022 ALP [Catalytic activity/Vol] 113 U/L 45-117 [facility] ALT [Catalytic activity/Vol] 21 U/L 13-56 [facility] CO2 [Moles/Vol] 26.0 mmol/L 21.0-32.0 [facility] Globulin (S) [Mass/Vol] 3.1 g/dL 2.2-4.2 [facility] Magnesium [Mass/Vol] 2.2 mg/dL 1.6-2.6 [facility] Urea nitrogen/Creatinine [Mass ratio] 35.5 mg/mg 10-20 [facility] - Hematology and Cell countson 09-13-2022 Erythrocyte distribution width (RBC) [Entitic vol] 45.3 fL 35.1-43.9 [facility] Erythrocyte distribution width (RBC) [Ratio] 13.3 % 11.6-14.6 [facility] MCH (RBC) [Entitic mass] 29.6 pg 27.0-32.0 [facility] MCHC Auto (RBC) [Mass/Vol]on 09-13-2022 MCHC (RBC) [Mass/Vol] 31.6 g/dL 32-36 [facility] No Panel Informationon 09-13 Estimated GFR (MDRD) Amer 74 mL/min >60 [facility] Comment on above: GFR Calc Estimated GFR (MDRD) Non-Af Amer 61 mL/min >60 [facility] Comment on above: Non- GFR Calc Tacrolimus (Prograf) Level See comment [facility] Comment on above: TEST RESULT LIMITSTa crolimus ([id number]), Blood, 4.2 ng/mL 2.0- 20.0 Trough (immediately following transplant) 15.0 Trough(steady state, 2 weeks or more after transplant): 3.0 - 8.0 Performed by LC-MS/MS technology. ____ TESTING PERFORMED AT [facility]. ORIGINAL REPORT ON FILE IN LAB CONTAINS ADDITIONAL TEST SITE INFORMATION. Platelets bldon 09-13-2022 Platelets (Bld) [#/Vol] 335 10*3/uL 150-450 [facility] Serum or plasma albumin osei urement (mass/volume)on 09-13-2022 Albumin [Mass/Vol] 3.5 g/dL 3.2-5.0 [facility] Serum or plasma albumin/glob ulin mass ratioon 09-13-2022 Albumin/Globulin [Mass ratio] 1.1 {ratio} 0.9-2.4 [facility] Serum or plasma calcium osei urement (mass/volume)on 09-13-2022 Calcium [Mass/Vol] 10.0 mg/dL 8.5-10.1 [facility] Serum or plasma creatinine m easurement (mass/volume)on 09-13-2022 Creatinine [Mass/Vol] 0.99 mg/dL 0.55-1.02 [facility] Comment on above: The validity of the calculated GFR & GFRAA in patients over 70 years has not been determined. Clinical correlation is essential. Serum or plasma urea nitroge n measurement (mass/volume)on 09-13-2022 Urea nitrogen [Mass/Vol] 35 mg/dL 7-18 [facility] Thin prep Papanicolaou smear with manual screeningon 09-13-2022 Thin prep Papanicolaou smear with manual screening 14 U/L 15-37 [facility] Thin prep Papanicolaou smear with manual screening 1 5-15 [facility] Basophil percentageon 2022 Chloride [Moles/Vol] 112 mmol/L 98-107 [facility] Glucose [Mass/Vol] 107 mg/dL 74-106 [facility] Comment on above: Fasting Glucose resu lt from 100 to 125 mg/dL suggests IMPAIRED HOMEOSTASIS per A.D.A. criteria. Potassium [Moles/Vol] 4.0 mmol/L 3.5-5.1 [facility] Sodium [Moles/Vol] 142 mmol/L 136-145 [facility] WBC (Bld) [#/Vol] 10.0 10*3/uL 4.4-11.0 [facility] Blood erythrocytes count (nu mber/volume)on 08-16-2022 RBC (Bld) [#/Vol] 4.25 10*6/uL 4.2-5.4 [facility] Blood hemoglobin measurement (mass/volume)on 08-16-2022 Hemoglobin (Bld) [Mass/Vol] 12.4 g/dL 12.0-15.0 [facility] Blood platelet mean volumeon 08-16-2022 Platelet mean volume (Bld) [Entitic vol] 10.0 fL 6.2-12.0 [facility] Determination of erythrocyte mean corpuscular volume (MCV)on 08-16-2022 MCV (RBC) [Entitic vol] 93.6 fL 81-99 [facility] Hematocrit Auto (Bld) [Volum e fraction]on 08-16-2022 Hematocrit (Bld) [Volume fraction] 39.8 % 37-47 [facility] - Chemistry and C hemistry - challengeon 08-16-2022 CO2 [Moles/Vol] 23.0 mmol/L 21.0-32.0 [facility] - Hematology and Cell countson 08-16-2022 Erythrocyte distribution width (RBC) [Entitic vol] 48.9 fL 35.1-43.9 [facility] Erythrocyte distribution width (RBC) [Ratio] 14.3 % 11.6-14.6 [facility] MCH (RBC) [Entitic mass] 29.2 pg 27.0-32.0 [facility] MCHC Auto (RBC) [Mass/Vol]on 08-16-2022 MCHC (RBC) [Mass/Vol] 31.2 g/dL 32-36 [facility] No Panel Informationon 08-16 Estimated GFR (MDRD) Amer 70 mL/min >60 [facility] Comment on above: GFR Calc Estimated GFR (MDRD) Non-Af Amer 58 mL/min >60 [facility] Comment on above: Non- GFR Calc Tacrolimus (Prograf) Level 5.4 ng/mL 2.0-20.0 [facility] Comment on above: Trough (immediately following transplant) 15.0 Trough (steady state, 2 weeks or more after transplant): 3.0 - 8.0 Performed by LC-MS/MS technology.Performed at: [employer] [address] [id number] Director: Amaury Dubois MD, Phone: [phone] Platelets bldon 08-16-2022 Platelets (Bld) [#/Vol] 397 10*3/uL 150-450 [facility] Serum or plasma creatinine m easurement (mass/volume)on 08-16-2022 Creatinine [Mass/Vol] 1.03 mg/dL 0.55-1.02 [facility] Comment on above: The validity of the calculated GFR & GFRAA in patients over 70 years has not been determined. Clinical correlation is essential. Serum or plasma urea nitroge n measurement (mass/volume)on 08-16-2022 Urea nitrogen [Mass/Vol] 28 mg/dL 7-18 [facility] Thin prep Papanicolaou smear with manual screeningon 08-16-2022 Thin prep Papanicolaou smear with manual screening 7 5-15 [facility] No Panel Informationon 07-14 POC SARS CoV-2 Antigen Negative [facility] Basophil percentageon 2022 Basophil percentage 2.6 mg/dL 2.5-4.9 [facility] Bilirubin [Mass/Vol] 0.30 mg/dL 0.20-1.00 [facility] Comment on above: For patients on eltr ombopag therapy, use of Dimension [place] TBIL is not recommended. Chloride [Moles/Vol] 111 mmol/L 98-107 [facility] Cholesterol [Mass/Vol] 174 mg/dL <200 [facility] Comment on above: <200 mg/dL Desirable 200-240 mg/dL Borderline >240 mg/dL High Risk Glucose [Mass/Vol] 109 mg/dL 74-106 [facility] Comment on above: Fasting Glucose resu lt from 100 to 125 mg/dL suggests IMPAIRED HOMEOSTASIS per A.D.A. criteria. Potassium [Moles/Vol] 4.3 mmol/L 3.5-5.1 [facility] Protein [Mass/Vol] 7.0 g/dL 6.4-8.2 [facility] Sodium [Moles/Vol] 140 mmol/L 136-145 [facility] Triglyceride [Mass/Vol] 97 mg/dL <199 [facility] Comment on above: The drugs N-Acetylcy steine and Metamizole may falsely depress this assay.Serum Triglycerides Reference Interval Normal <150 mg/dL Borderline high 150 - 199 mg/dL High 200 - 499 mg/dL Very High > or = 500 mg/dL WBC (Bld) [#/Vol] 6.6 10*3/uL 4.4-11.0 [facility] Blood erythrocytes count (nu mber/volume)on 07-12-2022 RBC (Bld) [#/Vol] 4.61 10*6/uL 4.2-5.4 [facility] Blood hemoglobin measurement (mass/volume)on 07-12-2022 Hemoglobin (Bld) [Mass/Vol] 13.2 g/dL 12.0-15.0 [facility] Blood platelet mean volumeon 07-12-2022 Platelet mean volume (Bld) [Entitic vol] 10.0 fL 6.2-12.0 [facility] Determination of erythrocyte mean corpuscular volume (MCV)on 07-12-2022 MCV (RBC) [Entitic vol] 91.5 fL 81-99 [facility] Direct bilirubinon Bilirubin.direct [Mass/Vol] 0.11 mg/dL 0.00-0.30 [facility] Hematocrit Auto (Bld) [Volum e fraction]on 07-12-2022 Hematocrit (Bld) [Volume fraction] 42.2 % 37-47 [facility] Iron measurement (mass/mass) on 07-12-2022 Iron (Unsp spec) [Mass/Mass] 75 ug/dL 50-170 [facility] - Chemistry and C hemistry - challengeon 07-12-2022 ALP [Catalytic activity/Vol] 101 U/L 45-117 [facility] ALT [Catalytic activity/Vol] 25 U/L 13-56 [facility] CO2 [Moles/Vol] 21.0 mmol/L 21.0-32.0 [facility] Globulin (S) [Mass/Vol] 3.5 g/dL 2.2-4.2 [facility] Magnesium [Mass/Vol] 1.8 mg/dL 1.6-2.6 [facility] Transferrin [Mass/Vol] 192 mg/dL 192-364 [facility] Comment on above: Performed at: [address] [id number] Director: Amaury Dubois MD, Phone: [phone] at: CB - [facility] [address] [id number] Director: Marcello Kwon PhD, Phone: [phone] Urea nitrogen/Creatinine [Mass ratio] 30.3 mg/mg 10-20 [facility] - Hematology and Cell countson 07-12-2022 Erythrocyte distribution width (RBC) [Entitic vol] 48.2 fL 35.1-43.9 [facility] Erythrocyte distribution width (RBC) [Ratio] 14.3 % 11.6-14.6 [facility] MCH (RBC) [Entitic mass] 28.6 pg 27.0-32.0 [facility] MCHC Auto (RBC) [Mass/Vol]on 07-12-2022 MCHC (RBC) [Mass/Vol] 31.3 g/dL 32-36 [facility] No Panel Informationon 07-12 Estimated GFR (MDRD) Amer 66 mL/min >60 [facility] Comment on above: GFR Calc Estimated GFR (MDRD) Non-Af Amer 55 mL/min >60 [facility] Comment on above: Non- GFR Calc Miscellaneous Test See comment [facility] Comment on above: TEST RESULTS LIMITSB KV Quant PCRBKV DNA, Quant PCR, Plasma Negative IU/mL NegativeNo BK DNA detected.The linear range of the assay is 22 - 100,000,000 IU/mL. TESTING PERFORMED AT [facility]. ORIGINAL REPORT ON FILE IN LAB CONTAINS ADDITIONAL TEST SITE INFORMATION. Tacrolimus (Prograf) Level 3.9 ng/mL 2.0-20.0 [facility] Comment on above: Trough (immediately following transplant) 15.0 Trough (steady state, 2 weeks or more after transplant): 3.0 - 8.0 Performed by LC-MS/MS technology. Total Iron Binding Capacity 238 ug/dL 250-450 [facility] Platelets bldon 07-12-2022 Platelets (Bld) [#/Vol] 327 10*3/uL 150-450 [facility] Serum or plasma albumin osei urement (mass/volume)on 07-12-2022 Albumin [Mass/Vol] 3.5 g/dL 3.2-5.0 [facility] Serum or plasma albumin/glob ulin mass ratioon 07-12-2022 Albumin/Globulin [Mass ratio] 1.0 {ratio} 0.9-2.4 [facility] Serum or plasma calcium osei urement (mass/volume)on 07-12-2022 Calcium [Mass/Vol] 10.1 mg/dL 8.5-10.1 [facility] Serum or plasma cholesterol in HDL measurement (mass/volume)on 07-12-2022 Cholesterol in HDL [Mass/Vol] 96 mg/dL >40 [facility] Comment on above: The drugs N-Acetylcy steine and Metamizole may falsely depress this assay. Reference Range HDL <40 mg/dL Low HDL Cholesterol HDL >or= 60 mg/dL High HDL Cholesterol Serum or plasma cholesterol in VLDL measurement (mass/volume)on 07-12-2022 Cholesterol in VLDL [Mass/Vol] 19 mg/dL 5-40 [facility] Serum or plasma creatinine m easurement (mass/volume)on 07-12-2022 Creatinine [Mass/Vol] 1.09 mg/dL 0.55-1.02 [facility] Comment on above: The validity of the calculated GFR & GFRAA in patients over 70 years has not been determined. Clinical correlation is essential. Serum or plasma ferritin ace surement (mass/volume)on 07-12-2022 Ferritin [Mass/Vol] 1369 ng/mL 8-252 [facility] Serum or plasma low density lipoprotein (LDL) cholesterol measurement (mass/volume)on 07-12-2022 Cholesterol in LDL [Mass/Vol] 59 mg/dL 0-130 [facility] Serum or plasma urea nitroge n measurement (mass/volume)on 07-12-2022 Urea nitrogen [Mass/Vol] 33 mg/dL 7-18 [facility] Serum or plasma uric acid me asurement (mass/volume)on 07-12-2022 Urate [Mass/Vol] 4.9 mg/dL 2.6-6.0 [facility] Comment on above: The drugs N-Acetylcy steine and Metamizole may falsely depress this assay. Thin prep Papanicolaou smear with manual screeningon 07-12-2022 Thin prep Papanicolaou smear with manual screening 13 U/L 15-37 [facility] Thin prep Papanicolaou smear with manual screening 8 5-15 [facility] Urine creatinine measurement (mass/volume)on 07-12-2022 Creatinine (U) [Mass/Vol] 66.10 mg/dL NO RANGE EST. [facility] Urine protein measurement (m ass/volume)on 07-12-2022 Protein (U) [Mass/Vol] 12.4 mg/dL 0.0-11.8 [facility] Urine protein/creatinine mas s ratioon 07-12-2022 Protein/Creatinine (U) [Mass ratio] 188 mg/g CRE 0-200 [facility] Absolute lymphocyte counton 06-14-2022 Lymphocytes Auto (Unsp spec) [#/Vol] 0.52 10*3/uL 0.83-4.51 [facility] Basophil percentageon 2022 Basophils/100 WBC (Bld) 0.9 % 0-1 [facility] Chloride [Moles/Vol] 114 mmol/L 98-107 [facility] Eosinophils/100 WBC (Bld) 2.7 % 0-5 [facility] Glucose [Mass/Vol] 103 mg/dL 74-106 [facility] Comment on above: Fasting Glucose resu lt from 100 to 125 mg/dL suggests IMPAIRED HOMEOSTASIS per A.D.A. criteria. Neutrophils (Bld) [#/Vol] 5.6 10*3/uL 2.0-7.7 [facility] Neutrophils/100 WBC (Bld) 79.1 % 47-70 [facility] Potassium [Moles/Vol] 5.0 mmol/L 3.5-5.1 [facility] Sodium [Moles/Vol] 141 mmol/L 136-145 [facility] WBC (Bld) [#/Vol] 7.0 10*3/uL 4.4-11.0 [facility] Blood erythrocytes count (nu mber/volume)on 06-14-2022 RBC (Bld) [#/Vol] 4.53 10*6/uL 4.2-5.4 [facility] Blood hemoglobin measurement (mass/volume)on 06-14-2022 Hemoglobin (Bld) [Mass/Vol] 13.2 g/dL 12.0-15.0 [facility] Blood lymphocytes/100 leukoc yteson 06-14-2022 Lymphocytes/100 WBC (Bld) 7.4 % 19-41 [facility] Blood manual differential co mment interpretation (narrative result)on 06-14-2022 Manual differential comment Inder (Bld) [Interp] SCANNED [facility] Blood monocytes/100 leukocyt eson 06-14-2022 Monocytes/100 WBC (Bld) 9.8 % 0-10 [facility] Blood platelet mean volumeon 06-14-2022 Platelet mean volume (Bld) [Entitic vol] 9.8 fL 6.2-12.0 [facility] Determination of erythrocyte mean corpuscular volume (MCV)on 06-14-2022 MCV (RBC) [Entitic vol] 92.5 fL 81-99 [facility] Hematocrit Auto (Bld) [Volum e fraction]on 06-14-2022 Hematocrit (Bld) [Volume fraction] 41.9 % 37-47 [facility] Laboratory - Chemistry and C hemistry - challengeon 06-14-2022 CO2 [Moles/Vol] 18.0 mmol/L 21.0-32.0 [facility] Laboratory - Hematology and Cell countson 06-14-2022 Erythrocyte distribution width (RBC) [Entitic vol] 47.8 fL 35.1-43.9 [facility] Erythrocyte distribution width (RBC) [Ratio] 14.2 % 11.6-14.6 [facility] Immature granulocytes/100 WBC (Bld) 0.100 % 0.0-0.9 [facility] Comment on above: IG% - Immature Granu locytes (promyelocytes, myelocytes and metamyelocytes) > 1% indicates that a LEFT SHIFT is Present. MCH (RBC) [Entitic mass] 29.1 pg 27.0-32.0 [facility] Nucleated RBC/100 WBC (Bld) [Ratio] 0 % 0-5 [facility] MCHC Auto (RBC) [Mass/Vol]on 06-14-2022 MCHC (RBC) [Mass/Vol] 31.5 g/dL 32-36 [facility] No Panel Informationon 06-14 Estimated GFR (MDRD) Amer 87 mL/min >60 [facility] Comment on above: GFR Calc Estimated GFR (MDRD) Non-Af Amer 72 mL/min >60 [facility] Comment on above: Non- GFR Calc Tacrolimus (Prograf) Level 5.1 ng/mL 2.0-20.0 [facility] Comment on above: Trough (immediately following transplant) 15.0 Trough (steady state, 2 weeks or more after transplant): 3.0 - 8.0 Performed by LC-MS/MS technology.Performed at: [employer] [facility] [id number] Director: Amaury Dubois MD, Phone: [phone] Platelets bldon 06-14-2022 Platelets (Bld) [#/Vol] 259 10*3/uL 150-450 [facility] Serum or plasma creatinine m easurement (mass/volume)on 06-14-2022 Creatinine [Mass/Vol] 0.86 mg/dL 0.55-1.02 [facility] Comment on above: The validity of the calculated GFR & GFRAA in patients over 70 years has not been determined. Clinical correlation is essential. Serum or plasma urea nitroge n measurement (mass/volume)on 06-14-2022 Urea nitrogen [Mass/Vol] 16 mg/dL 7-18 [facility] Basophil percentageon 2021 Basophil percentage 2.7 mg/dL 2.5-4.9 [facility] Bilirubin [Mass/Vol] 0.40 mg/dL 0.20-1.00 [facility] Comment on above: For patients on eltr ombopag therapy, use of Dimension [place] TBIL is not recommended. Chloride [Moles/Vol] 112 mmol/L 98-107 [facility] Glucose [Mass/Vol] 97 mg/dL 74-106 [facility] Potassium [Moles/Vol] 4.9 mmol/L 3.5-5.1 [facility] Protein [Mass/Vol] 6.0 g/dL 6.4-8.2 [facility] Sodium [Moles/Vol] 142 mmol/L 136-145 [facility] WBC (Bld) [#/Vol] 6.6 10*3/uL 4.4-11.0 [facility] Blood erythrocytes count (nu mber/volume)on 05-17-2022 RBC (Bld) [#/Vol] 4.36 10*6/uL 4.2-5.4 [facility] Blood hemoglobin measurement (mass/volume)on 05-17-2022 Hemoglobin (Bld) [Mass/Vol] 12.3 g/dL 12.0-15.0 [facility] Blood platelet mean volumeon 05-17-2022 Platelet mean volume (Bld) [Entitic vol] 10.2 fL 6.2-12.0 [facility] Determination of erythrocyte mean corpuscular volume (MCV)on 05-17-2022 MCV (RBC) [Entitic vol] 91.1 fL 81-99 [facility] Hematocrit Auto (Bld) [Volum e fraction]on 05-17-2022 Hematocrit (Bld) [Volume fraction] 39.7 % 37-47 [facility] Laboratory - Chemistry and C hemistry - challengeon 05-17-2022 ALP [Catalytic activity/Vol] 128 U/L 45-117 [facility] ALT [Catalytic activity/Vol] 24 U/L 13-56 [facility] CO2 [Moles/Vol] 23.0 mmol/L 21.0-32.0 [facility] Globulin (S) [Mass/Vol] 2.7 g/dL 2.2-4.2 [facility] Magnesium [Mass/Vol] 2.0 mg/dL 1.6-2.6 [facility] Urea nitrogen/Creatinine [Mass ratio] 21.6 mg/mg 10-20 [facility] Laboratory - Hematology and Cell countson 05-17-2022 Erythrocyte distribution width (RBC) [Entitic vol] 45.0 fL 35.1-43.9 [facility] Erythrocyte distribution width (RBC) [Ratio] 13.5 % 11.6-14.6 [facility] MCH (RBC) [Entitic mass] 28.2 pg 27.0-32.0 [facility] MCHC Auto (RBC) [Mass/Vol]on 05-17-2022 MCHC (RBC) [Mass/Vol] 31.0 g/dL 32-36 [facility] No Panel Informationon 05-17 Estimated GFR (MDRD) Amer 65 mL/min >60 [facility] Comment on above: GFR Calc Estimated GFR (MDRD) Non-Af Amer 53 mL/min >60 [facility] Comment on above: Non- GFR Calc Tacrolimus (Prograf) Level 6.1 ng/mL 2.0-20.0 [facility] Comment on above: Trough (immediately following transplant) 15.0 Trough (steady state, 2 weeks or more after transplant): 3.0 - 8.0 Performed by LC-MS/MS technology.Performed at: [employer] [facility] [id number] Director: Amaury Dubois MD, Phone: [phone] Platelets bldon 05-17-2022 Platelets (Bld) [#/Vol] 349 10*3/uL 150-450 [facility] Serum or plasma albumin osei urement (mass/volume)on 05-17-2022 Albumin [Mass/Vol] 3.3 g/dL 3.2-5.0 [facility] Serum or plasma albumin/glob ulin mass ratioon 05-17-2022 Albumin/Globulin [Mass ratio] 1.2 {ratio} 0.9-2.4 [facility] Serum or plasma calcium osei urement (mass/volume)on 05-17-2022 Calcium [Mass/Vol] 10.2 mg/dL 8.5-10.1 [facility] Serum or plasma creatinine m easurement (mass/volume)on 05-17-2022 Creatinine [Mass/Vol] 1.11 mg/dL 0.55-1.02 [facility] Comment on above: The validity of the calculated GFR & GFRAA in patients over 70 years has not been determined. Clinical correlation is essential. Serum or plasma urea nitroge n measurement (mass/volume)on 05-17-2022 Urea nitrogen [Mass/Vol] 24 mg/dL 7-18 [facility] Serum or plasma uric acid me asurement (mass/volume)on 05-17-2022 Urate [Mass/Vol] 5.2 mg/dL 2.6-6.0 [facility] Comment on above: The drugs N-Acetylcy steine and Metamizole may falsely depress this assay. Thin prep Papanicolaou smear with manual screeningon 05-17-2022 Thin prep Papanicolaou smear with manual screening 15 U/L 15-37 [facility] Thin prep Papanicolaou smear with manual screening 7 5-[address] [facility] [address] KNEE W/O CONTRAST LEFTon 05-05-2022 CT KNEE W/O CONTRAST LEFT ORIGINAL EXAMINATION: CT OF THE LEFT KNEE WITHOUT CONTRAST 05/04/2022 3:02 pm TECHNIQUE: CT of the left knee was performed without the administration of intravenous contrast. Limited images of the lateral hip and ankle were also performed for surgical planning. Multiplanar reformatted images are provided for review. Automated exposure control, iterative reconstruction, and/or weight based adjustment of the mA/kV was utilized to reduce the radiation dose to as low as reasonably achievable. COMPARISON: None. HISTORY ORDERING SYSTEM PROVIDED HISTORY: Reason for Exam: UNILATERAL OSTEOARTHRITIS LEFT KNEE, chronic knee pain, Conformis protocol FINDINGS: Bones: No evidence of acute fracture or dislocation. No aggressive bone lesion. There is moderate to severe tricompartmental degenerative changes most pronounced in the medial tibiofemoral compartment. Marginal osteophyte production and pronounced medial joint space narrowing with mild subchondral sclerosis. Soft Tissue: No significant soft tissue edema. There is a large Rg cyst measuring at least 7 cm in craniocaudal dimensions. Dystrophic calcifications noted. Joint: There is a small suprapatellar joint effusion. No significant popliteal cyst. Limited images of the ipsilateral hip and ankle joints show no acute contributory skeletal abnormality. IMPRESSION: Moderate to severe osteoarthritic changes most pronounced in the medial tibiofemoral compartment. Large Rg cyst. Small suprapatellar joint effusion. I have personally reviewed the images of this examination, agree with resident's findings and interpretation. Interpreted by: Mitch Lott MD Preliminary Report By: Wolf Russell Electronically signed By Mitch Lott MD Dictated Date: 05/04/2022 4:00:02 PM Prelim Date: 05/05/2022 11:20:17 AM Sign Date: 05/05/2022 11:20:17 AM Ordering Provider: DIEGO BOWMAN [facility] ([place]) Basophil percentageon 2021 Chloride [Moles/Vol] 113 mmol/L 98-107 [facility] Glucose [Mass/Vol] 108 mg/dL 74-106 [facility] Comment on above: Fasting Glucose resu lt from 100 to 125 mg/dL suggests IMPAIRED HOMEOSTASIS per A.D.A. criteria. Potassium [Moles/Vol] 4.3 mmol/L 3.5-5.1 [facility] Sodium [Moles/Vol] 141 mmol/L 136-145 [facility] WBC (Bld) [#/Vol] 4.6 10*3/uL 4.4-11.0 [facility] Blood erythrocytes count (nu mber/volume)on 04-19-2022 RBC (Bld) [#/Vol] 4.46 10*6/uL 4.2-5.4 [facility] Blood hemoglobin measurement (mass/volume)on 04-19-2022 Hemoglobin (Bld) [Mass/Vol] 12.6 g/dL 12.0-15.0 [facility] Blood platelet mean volumeon 04-19-2022 Platelet mean volume (Bld) [Entitic vol] 10.0 fL 6.2-12.0 [facility] Determination of erythrocyte mean corpuscular volume (MCV)on 04-19-2022 MCV (RBC) [Entitic vol] 91.0 fL 81-99 [facility] Hematocrit Auto (Bld) [Volum e fraction]on 04-19-2022 Hematocrit (Bld) [Volume fraction] 40.6 % 37-47 [facility] Laboratory - Chemistry and C hemistry - challengeon 04-19-2022 CO2 [Moles/Vol] 20.0 mmol/L 21.0-32.0 [facility] Laboratory - Hematology and Cell countson 04-19-2022 Erythrocyte distribution width (RBC) [Entitic vol] 46.8 fL 35.1-43.9 [facility] Erythrocyte distribution width (RBC) [Ratio] 14.0 % 11.6-14.6 [facility] MCH (RBC) [Entitic mass] 28.3 pg 27.0-32.0 [facility] MCHC Auto (RBC) [Mass/Vol]on 04-19-2022 MCHC (RBC) [Mass/Vol] 31.0 g/dL 32-36 [facility] No Panel Informationon 04-19 Estimated GFR (MDRD) Amer 64 mL/min >60 [facility] Comment on above: GFR Calc Estimated GFR (MDRD) Non-Af Amer 53 mL/min >60 [facility] Comment on above: Non- GFR Calc Tacrolimus (Prograf) Level 5.3 ng/mL 2.0-20.0 [facility] Comment on above: Trough (immediately following transplant) 15.0 Trough (steady state, 2 weeks or more after transplant): 3.0 - 8.0 Performed by LC-MS/MS technology.Performed at: [address] [id number] Director: Amaury Dubois MD, Phone: [phone] Platelets bldon 04-19-2022 Platelets (Bld) [#/Vol] 374 10*3/uL 150-450 [facility] Serum or plasma creatinine m easurement (mass/volume)on 04-19-2022 Creatinine [Mass/Vol] 1.12 mg/dL 0.55-1.02 [facility] Comment on above: The validity of the calculated GFR & GFRAA in patients over 70 years has not been determined. Clinical correlation is essential. Serum or plasma urea nitroge n measurement (mass/volume)on 04-19-2022 Urea nitrogen [Mass/Vol] 22 mg/dL 7-18 [facility] Thin prep Papanicolaou smear with manual screeningon 04-19-2022 Thin prep Papanicolaou smear with manual screening 8 5-15 [facility] URINE PROTEIN/CREA RATIO, RA NDOMon 03-17-2022 Creatinine (24H U) [Mass/Vol] 102.81 mg/dL [facility] Protein Unsp time (U) [Mass/Vol] 14 mg/dL [facility] Protein/Creatinine (U) [Mass ratio] 0.136 mg/g [facility] Basophil percentageon 2021 WBC (Bld) [#/Vol] 5.4 10*3/uL 4.4-11.0 [facility] Chloride [Moles/Vol] 111 mmol/L 98-107 [facility] Glucose [Mass/Vol] 107 mg/dL 74-106 [facility] Comment on above: Fasting Glucose resu lt from 100 to 125 mg/dL suggests IMPAIRED HOMEOSTASIS per A.D.A. criteria. Potassium [Moles/Vol] 4.7 mmol/L 3.5-5.1 [facility] Sodium [Moles/Vol] 140 mmol/L 136-145 [facility] Blood erythrocytes count (nu mber/volume)on 03-15-2022 RBC (Bld) [#/Vol] 4.10 10*6/uL 4.2-5.4 [facility] Blood hemoglobin measurement (mass/volume)on 03-15-2022 Hemoglobin (Bld) [Mass/Vol] 11.9 g/dL 12.0-15.0 [facility] Blood platelet mean volumeon 03-15-2022 Platelet mean volume (Bld) [Entitic vol] 10.6 fL 6.2-12.0 [facility] Determination of erythrocyte mean corpuscular volume (MCV)on 03-15-2022 MCV (RBC) [Entitic vol] 92.4 fL 81-99 [facility] Hematocrit Auto (Bld) [Volum e fraction]on 03-15-2022 Hematocrit (Bld) [Volume fraction] 37.9 % 37-47 [facility] Laboratory - Chemistry and C hemistry - challengeon 03-15-2022 CO2 [Moles/Vol] 21.0 mmol/L 21.0-32.0 [facility] Laboratory - Hematology and Cell countson 03-15-2022 Erythrocyte distribution width (RBC) [Entitic vol] 51.4 fL 35.1-43.9 [facility] Erythrocyte distribution width (RBC) [Ratio] 15.2 % 11.6-14.6 [facility] MCH (RBC) [Entitic mass] 29.0 pg 27.0-32.0 [facility] MCHC Auto (RBC) [Mass/Vol]on 03-15-2022 MCHC (RBC) [Mass/Vol] 31.4 g/dL 32-36 [facility] No Panel Informationon 03-15 Estimated GFR (MDRD) Amer 56 mL/min >60 [facility] Comment on above: GFR Calc Estimated GFR (MDRD) Non-Af Amer 47 mL/min >60 [facility] Comment on above: Non- GFR Calc Tacrolimus (Prograf) Level 4.9 ng/mL 2.0-20.0 [facility] Comment on above: Trough (immediately following transplant) 15.0 Trough (steady state, 2 weeks or more after transplant): 3.0 - 8.0 Performed by LC-MS/MS technology.Performed at: [address] [id number] Director: Amaury Dubois MD, Phone: [phone] Platelets bldon 03-15-2022 Platelets (Bld) [#/Vol] 307 10*3/uL 150-450 [facility] Serum or plasma creatinine m easurement (mass/volume)on 03-15-2022 Creatinine [Mass/Vol] 1.25 mg/dL 0.55-1.02 [facility] Comment on above: The validity of the calculated GFR & GFRAA in patients over 70 years has not been determined. Clinical correlation is essential. Serum or plasma urea nitroge n measurement (mass/volume)on 03-15-2022 Urea nitrogen [Mass/Vol] 23 mg/dL 7-18 [facility] Thin prep Papanicolaou smear with manual screeningon 03-15-2022 Thin prep Papanicolaou smear with manual screening 8 5-15 [facility] Basophil percentageon 2021 Basophil percentage 2.3 mg/dL 2.5-4.9 [facility] Work Phone: Bilirubin [Mass/Vol] 0.40 mg/dL 0.20-1.00 [facility] Work Phone: Comment on above: For patients on eltr ombopag therapy, use of Dimension [place] TBIL is not recommended. Chloride [Moles/Vol] 116 mmol/L 98-107 [facility] Work Phone: Cholesterol [Mass/Vol] 147 mg/dL <200 [facility] Work Phone: Comment on above: <200 mg/dL Desirable 200-240 mg/dL Borderline >240 mg/dL High Risk Glucose [Mass/Vol] 106 mg/dL 74-106 [facility] Work Phone: Comment on above: Fasting Glucose resu lt from 100 to 125 mg/dL suggests IMPAIRED HOMEOSTASIS per A.D.A. criteria. Potassium [Moles/Vol] 4.1 mmol/L 3.5-5.1 [facility] Work Phone: Sodium [Moles/Vol] 143 mmol/L 136-145 [facility] Work Phone: Triglyceride [Mass/Vol] 130 mg/dL <199 [facility] Work Phone: Comment on above: The drugs N-Acetylcy steine and Metamizole may falsely depress this assay.Serum Triglycerides Reference Interval Normal <150 mg/dL Borderline high 150 - 199 mg/dL High 200 - 499 mg/dL Very High > or = 500 mg/dL WBC (Bld) [#/Vol] 3.9 10*3/uL 4.4-11.0 [facility] Work Phone: Blood erythrocytes count (nu mber/volume)on 02-15-2022 RBC (Bld) [#/Vol] 3.95 10*6/uL 4.2-5.4 [facility] Work Phone: Blood hemoglobin measurement (mass/volume)on 02-15-2022 Hemoglobin (Bld) [Mass/Vol] 10.9 g/dL 12.0-15.0 [facility] Work Phone: Blood platelet mean volumeon 02-15-2022 Platelet mean volume (Bld) [Entitic vol] 10.2 fL 6.2-12.0 [facility] Work Phone: Determination of erythrocyte mean corpuscular volume (MCV)on 02-15-2022 MCV (RBC) [Entitic vol] 85.6 fL 81-99 [facility] Work Phone: Hematocrit Auto (Bld) [Volum e fraction]on 02-15-2022 Hematocrit (Bld) [Volume fraction] 33.8 % 37-47 [facility] Work Phone: Iron measurement (mass/mass) on 02-15-2022 Iron (Unsp spec) [Mass/Mass] 63 ug/dL 50-170 [facility] Work Phone: Laboratory - Chemistry and C hemistry - challengeon 02-15-2022 ALP [Catalytic activity/Vol] 138 U/L 45-117 [facility] Work Phone: ALT [Catalytic activity/Vol] 21 U/L 13-56 [facility] Work Phone: CO2 [Moles/Vol] 22.0 mmol/L 21.0-32.0 [facility] Work Phone: Magnesium [Mass/Vol] 2.2 mg/dL 1.6-2.6 [facility] Work Phone: Transferrin [Mass/Vol] 146 mg/dL 192-364 [facility] Work Phone: Comment on above: Performed at: [address] [id number] Director: Amaury Dubois MD, Phone: [phone] at: [facility] [id number] Director: Marcello Kwon PhD, Phone: [phone] Urea nitrogen/Creatinine [Mass ratio] 14.4 mg/mg 10-20 [facility] Work Phone: Laboratory - Hematology and Cell countson 02-15-2022 Erythrocyte distribution width (RBC) [Entitic vol] 42.8 fL 35.1-43.9 [facility] Work Phone: Erythrocyte distribution width (RBC) [Ratio] 13.9 % 11.6-14.6 [facility] Work Phone: MCH (RBC) [Entitic mass] 27.6 pg 27.0-32.0 [facility] Work Phone: MCHC Auto (RBC) [Mass/Vol]on 02-15-2022 MCHC (RBC) [Mass/Vol] 32.2 g/dL 32-36 [facility] Work Phone: No Panel Informationon 02-15 Estimated GFR (MDRD) Amer 65 mL/min >60 [facility] Work Phone: Comment on above: GFR Calc Estimated GFR (MDRD) Non-Af Amer 53 mL/min >60 [facility] Work Phone: Comment on above: Non- GFR Calc Miscellaneous Test See comment [facility] Work Phone: Comment on above: TEST RESULT LIMITSBK V Quant PCR BKV DNA, Quant PCR, Plasma Negative IU/mL Negative _ TESTING PERFORMED AT [facility]. ORIGINAL REPORT ON FILE IN LAB CONTAINS ADDITIONAL TEST SITE INFORMATION. Tacrolimus (Prograf) Level 5.1 ng/mL 2.0-20.0 [facility] Work Phone: Comment on above: Trough (immediately following transplant) 15.0 Trough (steady state, 2 weeks or more after transplant): 3.0 - 8.0 Performed by LC-MS/MS technology. Total Iron Binding Capacity 210 ug/dL 250-450 [facility] Work Phone: Platelets bldon 02-15-2022 Platelets (Bld) [#/Vol] 316 10*3/uL 150-450 [facility] Work Phone: Serum or plasma albumin osei urement (mass/volume)on 02-15-2022 Albumin [Mass/Vol] 3.1 g/dL 3.2-5.0 [facility] Work Phone: Serum or plasma calcium osei urement (mass/volume)on 02-15-2022 Calcium [Mass/Vol] 10.3 mg/dL 8.5-10.1 [facility] Work Phone: Serum or plasma cholesterol in HDL measurement (mass/volume)on 02-15-2022 Cholesterol in HDL [Mass/Vol] 55 mg/dL >40 [facility] Work Phone: Comment on above: The drugs N-Acetylcy steine and Metamizole may falsely depress this assay. Reference Range HDL <40 mg/dL Low HDL Cholesterol HDL >or= 60 mg/dL High HDL Cholesterol Serum or plasma cholesterol in VLDL measurement (mass/volume)on 02-15-2022 Cholesterol in VLDL [Mass/Vol] 26 mg/dL 5-40 [facility] Work Phone: Serum or plasma creatinine m easurement (mass/volume)on 02-15-2022 Creatinine [Mass/Vol] 1.11 mg/dL 0.55-1.02 [facility] Work Phone: Comment on above: The validity of the calculated GFR & GFRAA in patients over 70 years has not been determined. Clinical correlation is essential. Serum or plasma ferritin ace surement (mass/volume)on 02-15-2022 Ferritin [Mass/Vol] 2125 ng/mL 8-252 [facility] Work Phone: Serum or plasma iron saturat ion measurement (mass fraction)on 02-15-2022 Iron saturation [Mass fraction] 30.0 % 15.0-55.0 [facility] Work Phone: Serum or plasma low density lipoprotein (LDL) cholesterol measurement (mass/volume)on 02-15-2022 Cholesterol in LDL [Mass/Vol] 66 mg/dL 0-130 [facility] Work Phone: Serum or plasma urea nitroge n measurement (mass/volume)on 02-15-2022 Urea nitrogen [Mass/Vol] 16 mg/dL 7-18 [facility] Work Phone: Serum or plasma uric acid me asurement (mass/volume)on 02-15-2022 Urate [Mass/Vol] 4.7 mg/dL 2.6-6.0 [facility] Work Phone: Comment on above: The drugs N-Acetylcy steine and Metamizole may falsely depress this assay. Thin prep Papanicolaou smear with manual screeningon 02-15-2022 Thin prep Papanicolaou smear with manual screening 13 U/L 15-37 [facility] Work Phone: Thin prep Papanicolaou smear with manual screening 5 5-15 [facility] Work Phone: Urine creatinine measurement (mass/volume)on 02-15-2022 Creatinine (U) [Mass/Vol] 85.90 mg/dL NO RANGE EST. [facility] Work Phone: Urine protein measurement (m ass/volume)on 02-15-2022 Protein (U) [Mass/Vol] 14.9 mg/dL 0.0-11.8 [facility] Work Phone: Urine protein/creatinine mas s ratioon 02-15-2022 Protein/Creatinine (U) [Mass ratio] 173 mg/g CRE 0-200 [facility] Work Phone: Basophil percentageon 2021 Protein [Mass/Vol] 6.4 g/dL 6.4-8.2 [facility] Work Phone: Laboratory - Chemistry and C hemistry - challengeon 02-09-2022 Globulin (S) [Mass/Vol] 3.4 g/dL 2.2-4.2 [facility] Work Phone: No Panel Informationon 02-09 Urine Microalbumin/Creatini ne Ratio 13.6 mg/g CRE <30 [facility] Work Phone: Serum or plasma albumin/glob ulin mass ratioon 02-09-2022 Albumin/Globulin [Mass ratio] 0.9 {ratio} 0.9-2.4 [facility] Work Phone: Thin prep Papanicolaou smear with manual screeningon 02-09-2022 Thin prep Papanicolaou smear with manual screening 13.3 mg/L NO RANGE EST. [facility] Work Phone: Basophil percentageon 2021 Chloride [Moles/Vol] 114 mmol/L 98-107 [facility] Work Phone: Glucose [Mass/Vol] 105 mg/dL 74-106 [facility] Work Phone: Comment on above: Fasting Glucose resu lt from 100 to 125 mg/dL suggests IMPAIRED HOMEOSTASIS per A.D.A. criteria. Potassium [Moles/Vol] 4.6 mmol/L 3.5-5.1 [facility] Work Phone: Sodium [Moles/Vol] 141 mmol/L 136-145 [facility] Work Phone: WBC (Bld) [#/Vol] 2.6 10*3/uL 4.4-11.0 [facility] Work Phone: Blood erythrocytes count (nu mber/volume)on 02-01-2022 RBC (Bld) [#/Vol] 4.30 10*6/uL 4.2-5.4 [facility] Work Phone: Blood hemoglobin measurement (mass/volume)on 02-01-2022 Hemoglobin (Bld) [Mass/Vol] 11.9 g/dL 12.0-15.0 [facility] Work Phone: Blood platelet mean volumeon 02-01-2022 Platelet mean volume (Bld) [Entitic vol] 10.5 fL 6.2-12.0 [facility] Work Phone: Determination of erythrocyte mean corpuscular volume (MCV)on 02-01-2022 MCV (RBC) [Entitic vol] 89.1 fL 81-99 [facility] Work Phone: Hematocrit Auto (Bld) [Volum e fraction]on 02-01-2022 Hematocrit (Bld) [Volume fraction] 38.3 % 37-47 [facility] Work Phone: Laboratory - Chemistry and C hemistry - challengeon 02-01-2022 CO2 [Moles/Vol] 23.0 mmol/L 21.0-32.0 [facility] Work Phone: Urea nitrogen/Creatinine [Mass ratio] 11.6 mg/mg 10-20 [facility] Work Phone: [phone] Laboratory - Hematology and Cell countson 02-01-2022 Erythrocyte distribution width (RBC) [Entitic vol] 43.0 fL 35.1-43.9 [facility] Work Phone: Erythrocyte distribution width (RBC) [Ratio] 13.2 % 11.6-14.6 [facility] Work Phone: MCH (RBC) [Entitic mass] 27.7 pg 27.0-32.0 [facility] Work Phone: MCHC Auto (RBC) [Mass/Vol]on 02-01-2022 MCHC (RBC) [Mass/Vol] 31.1 g/dL 32-36 [facility] Work Phone: No Panel Informationon 02-01 Estimated GFR (MDRD) Amer 50 mL/min >60 [facility] Work Phone: Comment on above: GFR Calc Estimated GFR (MDRD) Non-Af Amer 42 mL/min >60 [facility] Work Phone: Comment on above: Non- GFR Calc Tacrolimus (Prograf) Level 10.2 ng/mL 2.0-20.0 [facility] Work Phone: Comment on above: Trough (immediately following transplant) 15.0 Trough (steady state, 2 weeks or more after transplant): 3.0 - 8.0 Performed by LC-MS/MS technology.Performed at: [address] [id number] Director: Amaury Dubois MD, Phone: [phone] Platelets bldon 02-01-2022 Platelets (Bld) [#/Vol] 317 10*3/uL 150-450 [facility] Work Phone: Serum or plasma calcium osei urement (mass/volume)on 02-01-2022 Calcium [Mass/Vol] 10.7 mg/dL 8.5-10.1 [facility] Work Phone: Serum or plasma creatinine m easurement (mass/volume)on 02-01-2022 Creatinine [Mass/Vol] 1.38 mg/dL 0.55-1.02 [facility] Work Phone: Comment on above: The validity of the calculated GFR & GFRAA in patients over 70 years has not been determined. Clinical correlation is essential. Serum or plasma urea nitroge n measurement (mass/volume)on 02-01-2022 Urea nitrogen [Mass/Vol] 16 mg/dL 7-18 [facility] Work Phone: Thin prep Papanicolaou smear with manual screeningon 02-01-2022 Thin prep Papanicolaou smear with manual screening 4 5-15 [facility] Work Phone: No Panel Informationon 01-25 Tacrolimus (Prograf) Level 16.5 ng/mL 2.0-20.0 [facility] Work Phone: Comment on above: Trough (immediately following transplant) 15.0 Trough (steady state, 2 weeks or more after transplant): 3.0 - 8.0 Performed by LC-MS/MS technology.Performed at: [facility] [id number] Director: Amaury Dubois MD, Phone: [phone] Basophil percentageon 2021 Chloride [Moles/Vol] 108 mmol/L 98-107 [facility] Work Phone: Glucose [Mass/Vol] 122 mg/dL 74-106 [facility] Work Phone: Comment on above: Fasting Glucose resu lt from 100 to 125 mg/dL suggests IMPAIRED HOMEOSTASIS per A.D.A. criteria. Potassium [Moles/Vol] 4.3 mmol/L 3.5-5.1 [facility] Work Phone: Sodium [Moles/Vol] 142 mmol/L 136-145 [facility] Work Phone: WBC (Bld) [#/Vol] 4.2 10*3/uL 4.4-11.0 [facility] Work Phone: Blood erythrocytes count (nu mber/volume)on 12-14-2021 RBC (Bld) [#/Vol] 4.33 10*6/uL 4.2-5.4 [facility] Work Phone: Blood hemoglobin measurement (mass/volume)on 12-14-2021 Hemoglobin (Bld) [Mass/Vol] 12.4 g/dL 12.0-15.0 [facility] Work Phone: Blood platelet mean volumeon 12-14-2021 Platelet mean volume (Bld) [Entitic vol] 10.0 fL 6.2-12.0 [facility] Work Phone: Determination of erythrocyte mean corpuscular volume (MCV)on 12-14-2021 MCV (RBC) [Entitic vol] 91.2 fL 81-99 [facility] Work Phone: Hematocrit Auto (Bld) [Volum e fraction]on 12-14-2021 Hematocrit (Bld) [Volume fraction] 39.5 % 37-47 [facility] Work Phone: Laboratory - Chemistry and C hemistry - challengeon 12-14-2021 CO2 [Moles/Vol] 25.0 mmol/L 21.0-32.0 [facility] Work Phone: Laboratory - Hematology and Cell countson 12-14-2021 Erythrocyte distribution width (RBC) [Entitic vol] 43.2 fL 35.1-43.9 [facility] Work Phone: Erythrocyte distribution width (RBC) [Ratio] 12.9 % 11.6-14.6 [facility] Work Phone: MCH (RBC) [Entitic mass] 28.6 pg 27.0-32.0 [facility] Work Phone: MCHC Auto (RBC) [Mass/Vol]on 12-14-2021 MCHC (RBC) [Mass/Vol] 31.4 g/dL 32-36 [facility] Work Phone: No Panel Informationon 12-14 Estimated GFR (MDRD) Amer 55 mL/min >60 [facility] Work Phone: Comment on above: GFR Calc Estimated GFR (MDRD) Non-Af Amer 46 mL/min >60 [facility] Work Phone: Comment on above: Non- GFR Calc Tacrolimus (Prograf) Level 6.9 ng/mL 2.0-20.0 [facility] Work Phone: Comment on above: Trough (immediately following transplant) 15.0 Trough (steady state, 2 weeks or more after transplant): 3.0 - 8.0 Performed by LC-MS/MS technology.Performed at: [employer] [facility] [id number] Director: Amaury Dubois MD, Phone: [phone] Platelets bldon 12-14-2021 Platelets (Bld) [#/Vol] 355 10*3/uL 150-450 [facility] Work Phone: Serum or plasma creatinine m easurement (mass/volume)on 12-14-2021 Creatinine [Mass/Vol] 1.27 mg/dL 0.55-1.02 [facility] Work Phone: Comment on above: The validity of the calculated GFR & GFRAA in patients over 70 years has not been determined. Clinical correlation is essential. Serum or plasma urea nitroge n measurement (mass/volume)on 12-14-2021 Urea nitrogen [Mass/Vol] 27 mg/dL 7-18 [facility] Work Phone: Thin prep Papanicolaou smear with manual screeningon 12-14-2021 Thin prep Papanicolaou smear with manual screening 9 5-15 [facility] Work Phone: Absolute lymphocyte counton 11-16-2021 Lymphocytes Auto (Unsp spec) [#/Vol] 5.32 10*3/uL 0.83-4.51 [facility] Work Phone: Basophil percentageon 2021 Basophil percentage Not Reportable [facility] Work Phone: Basophil percentage 2.1 mg/dL 2.5-4.9 [facility] Work Phone: Bilirubin [Mass/Vol] 0.20 mg/dL 0.20-1.00 [facility] Work Phone: Comment on above: For patients on eltr ombopag therapy, use of Dimension [place] TBIL is not recommended. Chloride [Moles/Vol] 112 mmol/L 98-107 [facility] Work Phone: Glucose [Mass/Vol] 97 mg/dL 74-106 [facility] Work Phone: Neutrophils (Bld) [#/Vol] 2.8 10*3/uL 2.0-7.7 [facility] Work Phone: Potassium [Moles/Vol] 4.3 mmol/L 3.5-5.1 [facility] Work Phone: Protein [Mass/Vol] 6.3 g/dL 6.4-8.2 [facility] Work Phone: Sodium [Moles/Vol] 141 mmol/L 136-145 [facility] Work Phone: WBC (Bld) [#/Vol] 3.8 10*3/uL 4.4-11.0 [facility] Work Phone: Blood band neutrophil count as percentage of total leukocyteson 11-16-2021 Band form neutrophils/100 WBC (Bld) 2 % 0-5 [facility] Work Phone: [phone] Blood eosinophils/100 leukoc yteson 11-16-2021 Eosinophils/100 WBC (Bld) 6 % 0-5 [facility] Work Phone: Blood erythrocytes count (nu mber/volume)on 11-16-2021 RBC (Bld) [#/Vol] 3.80 10*6/uL 4.2-5.4 [facility] Work Phone: Blood hemoglobin measurement (mass/volume)on 11-16-2021 Hemoglobin (Bld) [Mass/Vol] 10.9 g/dL 12.0-15.0 [facility] Work Phone: Blood lymphocytes/100 leukoc yteson 11-16-2021 Lymphocytes/100 WBC (Bld) 14 % 19-41 [facility] Work Phone: Blood manual differential co mment interpretation (narrative result)on 11-16-2021 Manual differential comment Inder (Bld) [Interp] See comment [facility] Work Phone: Comment on above: LYMPHOPENIA NOTED Blood monocytes/100 leukocyt eson 11-16-2021 Monocytes/100 WBC (Bld) 6 % 0-10 [facility] Work Phone: Blood platelet adequacy dete ction by light microscopyon 11-16-2021 Platelets LM Ql (Bld) ADEQUATE ADEQ [facility] Work Phone: Blood platelet mean volumeon 11-16-2021 Platelet mean volume (Bld) [Entitic vol] 9.6 fL 6.2-12.0 [facility] Work Phone: Blood segmented neutrophils/ 100 leukocyteson 11-16-2021 Segmented neutrophils/100 WBC (Bld) 72 % 47-70 [facility] Work Phone: Determination of erythrocyte mean corpuscular volume (MCV)on 11-16-2021 MCV (RBC) [Entitic vol] 93.9 fL 81-99 [facility] Work Phone: Hematocrit Auto (Bld) [Volum e fraction]on 11-16-2021 Hematocrit (Bld) [Volume fraction] 35.7 % 37-47 [facility] Work Phone: Laboratory - Chemistry and C hemistry - challengeon 11-16-2021 ALP [Catalytic activity/Vol] 129 U/L 45-117 [facility] Work Phone: ALT [Catalytic activity/Vol] 20 U/L 13-56 [facility] Work Phone: CO2 [Moles/Vol] 23.0 mmol/L 21.0-32.0 [facility] Work Phone: Globulin (S) [Mass/Vol] 3.0 g/dL 2.2-4.2 [facility] Work Phone: Magnesium [Mass/Vol] 1.8 mg/dL 1.6-2.6 [facility] Work Phone: Urea nitrogen/Creatinine [Mass ratio] 18.6 mg/mg 10-20 [facility] Work Phone: Laboratory - Hematology and Cell countson 11-16-2021 Erythrocyte distribution width (RBC) [Entitic vol] 48.2 fL 35.1-43.9 [facility] Work Phone: Erythrocyte distribution width (RBC) [Ratio] 14.0 % 11.6-14.6 [facility] Work Phone: MCH (RBC) [Entitic mass] 28.7 pg 27.0-32.0 [facility] Work Phone: MCHC Auto (RBC) [Mass/Vol]on 11-16-2021 MCHC (RBC) [Mass/Vol] 30.5 g/dL 32-36 [facility] Work Phone: No Panel Informationon 11-16 Estimated GFR (MDRD) Amer 50 mL/min >60 [facility] Work Phone: Comment on above: GFR Calc Estimated GFR (MDRD) Non-Af Amer 41 mL/min >60 [facility] Work Phone: Comment on above: Non- GFR Calc Tacrolimus (Prograf) Level 6.4 ng/mL 2.0-20.0 [facility] Work Phone: Comment on above: Trough (immediately following transplant) 15.0 Trough (steady state, 2 weeks or more after transplant): 3.0 - 8.0 Performed by LC-MS/MS technology.Performed at: [address] [id number] Director: Amaury Dubois MD, Phone: [phone] Platelets bldon 11-16-2021 Platelets (Bld) [#/Vol] 352 10*3/uL 150-450 [facility] Work Phone: RBC morphologyon 11-16-2021 RBC morphology finding Nom (Bld) NORM C+C NORMAL NORM C&C [facility] Work Phone: Review by pathologiston 11-04 Pathologist review Inder (Unsp spec) [Interp] Reviewed [facility] Work Phone: Comment on above: Previous reported re sult: Therese castrejon Edited by: ISIDRO on 11/17/21:1306Leukopenia.Normocytic anemia.Clinical correlation necessary.Rufus Guzman M.D. 11/17/21 AMENDED REPORT 11/17/21 1306 PATH REV previously reported as: Therese castrejon Serum or plasma albumin osei urement (mass/volume)on 11-16-2021 Albumin [Mass/Vol] 3.3 g/dL 3.2-5.0 [facility] Work Phone: Serum or plasma albumin/glob ulin mass ratioon 11-16-2021 Albumin/Globulin [Mass ratio] 1.1 {ratio} 0.9-2.4 [facility] Work Phone: Serum or plasma calcium osei urement (mass/volume)on 11-16-2021 Calcium [Mass/Vol] 10.4 mg/dL 8.5-10.1 [facility] Work Phone: Serum or plasma creatinine m easurement (mass/volume)on 11-16-2021 Creatinine [Mass/Vol] 1.40 mg/dL 0.55-1.02 [facility] Work Phone: Comment on above: The validity of the calculated GFR & GFRAA in patients over 70 years has not been determined. Clinical correlation is essential. Serum or plasma urea nitroge n measurement (mass/volume)on 11-16-2021 Urea nitrogen [Mass/Vol] 26 mg/dL 7-18 [facility] Work Phone: Thin prep Papanicolaou smear with manual screeningon 11-16-2021 Thin prep Papanicolaou smear with manual screening 16 U/L 15-37 [facility] Work Phone: [phone] Thin prep Papanicolaou smear with manual screening 6 5-15 [facility] Work Phone: Total cell counton 2 Cells counted Molgen (Bld/Tiss) [#] 100 MANUAL DIFF [facility] Work Phone: Absolute lymphocyte counton 10-12-2021 Lymphocytes Auto (Unsp spec) [#/Vol] 0.40 10*3/uL 0.83-4.51 [facility] Work Phone: Basophil percentageon 2021 Basophil percentage Not Reportable [facility] Work Phone: Chloride [Moles/Vol] 113 mmol/L 98-107 [facility] Work Phone: Glucose [Mass/Vol] 105 mg/dL 74-106 [facility] Work Phone: Comment on above: Fasting Glucose resu lt from 100 to 125 mg/dL suggests IMPAIRED HOMEOSTASIS per A.D.A. criteria. Neutrophils (Bld) [#/Vol] 3.8 10*3/uL 2.0-7.7 [facility] Work Phone: Potassium [Moles/Vol] 4.9 mmol/L 3.5-5.1 [facility] Work Phone: Comment on above: Slight Hemolysis, Re sult may be falsely increased. Sodium [Moles/Vol] 139 mmol/L 136-145 [facility] Work Phone: WBC (Bld) [#/Vol] 5.1 10*3/uL 4.4-11.0 [facility] Work Phone: Blood basophils/100 leukocyt eson 10-12-2021 Basophils/100 WBC (Bld) 2 % 0-1 [facility] Work Phone: Blood eosinophils/100 leukoc yteson 10-12-2021 Eosinophils/100 WBC (Bld) 9 % 0-5 [facility] Work Phone: Blood erythrocytes count (nu mber/volume)on 10-12-2021 RBC (Bld) [#/Vol] 3.64 10*6/uL 4.2-5.4 [facility] Work Phone: Blood hemoglobin measurement (mass/volume)on 10-12-2021 Hemoglobin (Bld) [Mass/Vol] 10.2 g/dL 12.0-15.0 [facility] Work Phone: Blood lymphocytes/100 leukoc yteson 10-12-2021 Lymphocytes/100 WBC (Bld) 7 % 19-41 [facility] Work Phone: Blood monocytes/100 leukocyt eson 10-12-2021 Monocytes/100 WBC (Bld) 8 % 0-10 [facility] Work Phone: Blood platelet adequacy dete ction by light microscopyon 10-12-2021 Platelets LM Ql (Bld) ADEQUATE ADEQ [facility] Work Phone: Blood platelet mean volumeon 10-12-2021 Platelet mean volume (Bld) [Entitic vol] 10.5 fL 6.2-12.0 [facility] Work Phone: Blood segmented neutrophils/ 100 leukocyteson 10-12-2021 Segmented neutrophils/100 WBC (Bld) 74 % 47-70 [facility] Work Phone: Determination of erythrocyte mean corpuscular volume (MCV)on 10-12-2021 MCV (RBC) [Entitic vol] 88.7 fL 81-99 [facility] Work Phone: Hematocrit Auto (Bld) [Volum e fraction]on 10-12-2021 Hematocrit (Bld) [Volume fraction] 32.3 % 37-47 [facility] Work Phone: Laboratory - Chemistry and C hemistry - challengeon 10-12-2021 CO2 [Moles/Vol] 19.0 mmol/L 21.0-32.0 [facility] Work Phone: Laboratory - Hematology and Cell countson 10-12-2021 Erythrocyte distribution width (RBC) [Entitic vol] 47.1 fL 35.1-43.9 [facility] Work Phone: Erythrocyte distribution width (RBC) [Ratio] 14.6 % 11.6-14.6 [facility] Work Phone: MCH (RBC) [Entitic mass] 28.0 pg 27.0-32.0 [facility] Work Phone: MCHC Auto (RBC) [Mass/Vol]on 10-12-2021 MCHC (RBC) [Mass/Vol] 31.6 g/dL 32-36 [facility] Work Phone: No Panel Informationon 10-12 Estimated GFR (MDRD) Amer 55 mL/min >60 [facility] Work Phone: Comment on above: GFR Calc Estimated GFR (MDRD) Non-Af Amer 46 mL/min >60 [facility] Work Phone: Comment on above: Non- GFR Calc Parathyroid Hormone (Intact) 218.3 pg/mL 18.4-80.1 [facility] Work Phone: Tacrolimus (Prograf) Level 6.5 ng/mL 2.0-20.0 [facility] Work Phone: Comment on above: Trough (immediately following transplant) 15.0 Trough (steady state, 2 weeks or more after transplant): 3.0 - 8.0 Performed by LC-MS/MS technology.Performed at: [address] [id number] Director: Amaury Dubois MD, Phone: [phone] Platelets bldon 10-12-2021 Platelets (Bld) [#/Vol] 307 10*3/uL 150-450 [facility] Work Phone: RBC morphologyon 10-12-2021 RBC morphology finding Nom (Bld) NORM C+C NORMAL NORM C&C [facility] Work Phone: Review by pathologiston 05-0 9-2022 Pathologist review Inder (Unsp spec) [Interp] Reviewed [facility] Work Phone: Comment on above: Previous reported re sult: Therese castrejon Edited by: ISIDRO on 10/13/21:1118Normocytic anemia.Clinical correlation necessary.Rufus Guzman M.D. 10/13/21 AMENDED REPORT 10/13/21 1118 PATH REV previously reported as: Therese castrejon Serum or plasma creatinine m easurement (mass/volume)on 10-12-2021 Creatinine [Mass/Vol] 1.27 mg/dL 0.55-1.02 [facility] Work Phone: Comment on above: The validity of the calculated GFR & GFRAA in patients over 70 years has not been determined. Clinical correlation is essential. Serum or plasma urea nitroge n measurement (mass/volume)on 10-12-2021 Urea nitrogen [Mass/Vol] 18 mg/dL 7-18 [facility] Work Phone: Total cell counton 2 Cells counted Molgen (Bld/Tiss) [#] 100 MANUAL DIFF [facility] Work Phone: Whole blood hemoglobin A1c/t otal hemoglobin ratio (mass fraction)on 10-12-2021 HbA1c (Bld) [Mass fraction] 5.5 % 3.8-5.6 [facility] Work Phone: Comment on above: Normal < 5.7 % Predi abetic 5.7 - 6.4 % Diabetic >or= 6.5 % Please note range changes. Absolute lymphocyte counton 09-22-2021 Lymphocytes Auto (Unsp spec) [#/Vol] 0.50 10*3/uL 0.83-4.51 [facility] Work Phone: Basophil percentageon 2021 Basophil percentage Not Reportable [facility] Work Phone: Neutrophils (Bld) [#/Vol] 2.5 10*3/uL 2.0-7.7 [facility] Work Phone: WBC (Bld) [#/Vol] 3.7 10*3/uL 4.4-11.0 [facility] Work Phone: [phone] Blood eosinophils/100 leukoc yteson 09-22-2021 Eosinophils/100 WBC (Bld) 5 % 0-5 [facility] Work Phone: Blood erythrocytes count (nu mber/volume)on 09-22-2021 RBC (Bld) [#/Vol] 3.67 10*6/uL 4.2-5.4 [facility] Work Phone: Blood hemoglobin measurement (mass/volume)on 09-22-2021 Hemoglobin (Bld) [Mass/Vol] 10.2 g/dL 12.0-15.0 [facility] Work Phone: Blood lymphocytes/100 leukoc yteson 09-22-2021 Lymphocytes/100 WBC (Bld) 13 % 19-41 [facility] Work Phone: Blood monocytes/100 leukocyt eson 09-22-2021 Monocytes/100 WBC (Bld) 15 % 0-10 [facility] Work Phone: Blood platelet adequacy dete ction by light microscopyon 09-22-2021 Platelets LM Ql (Bld) [employer] INC ADEQ [facility] Work Phone: Blood platelet mean volumeon 09-22-2021 Platelet mean volume (Bld) [Entitic vol] 9.9 fL 6.2-12.0 [facility] Work Phone: Blood segmented neutrophils/ 100 leukocyteson 09-22-2021 Segmented neutrophils/100 WBC (Bld) 67 % 47-70 [facility] Work Phone: Determination of erythrocyte mean corpuscular volume (MCV)on 09-22-2021 MCV (RBC) [Entitic vol] 89.9 fL 81-99 [facility] Work Phone: Hematocrit Auto (Bld) [Volum e fraction]on 09-22-2021 Hematocrit (Bld) [Volume fraction] 33.0 % 37-47 [facility] Work Phone: Laboratory - Hematology and Cell countson 09-22-2021 Anisocytosis Ql (Bld) 1+ [facility] Work Phone: Erythrocyte distribution width (RBC) [Entitic vol] 46.9 fL 35.1-43.9 [facility] Work Phone: Erythrocyte distribution width (RBC) [Ratio] 14.5 % 11.6-14.6 [facility] Work Phone: MCH (RBC) [Entitic mass] 27.8 pg 27.0-32.0 [facility] Work Phone: MCHC Auto (RBC) [Mass/Vol]on 09-22-2021 MCHC (RBC) [Mass/Vol] 30.9 g/dL 32-36 [facility] Work Phone: No Panel Informationon 09-22 Tacrolimus (Prograf) Level 7.8 ng/mL 2.0-20.0 [facility] Work Phone: Comment on above: Trough (immediately following transplant) 15.0 Trough (steady state, 2 weeks or more after transplant): 3.0 - 8.0 Performed by LC-MS/MS technology.Performed at: [address] [id number] Director: Amaury Dubois MD, Phone: [phone] Ovalocyte detectionon 2021 Ovalocytes LM Ql (Bld) 1+ [facility] Work Phone: Platelets bldon 09-22-2021 Platelets (Bld) [#/Vol] 413 10*3/uL 150-450 [facility] Work Phone: Review by pathologiston 09-04 Pathologist review Inder (Unsp spec) [Interp] Reviewed [facility] Work Phone: Comment on above: Previous reported re sult: Therese castrejon Edited by: RGOMINNIE on 09/23/21:1349Normocytic anemia.Clinical correlation necessary.Rufus Guzman M.D. 09/23/21 AMENDED REPORT 09/23/21 1349 PATH REV previously reported as: October Total cell counton 2 Cells counted Molgen (Bld/Tiss) [#] 100 MANUAL DIFF [facility] Work Phone: BK VIRUS DNA QN, PCR, PLASMA Ordered By: Tari Bowman on 09-15-2021 BK virus DNA NORA+probe Qn <500 <500 copies/mL [facility] Interpretation and review of laboratory results Normal [facility] This test was perfor med using a real time PCR assay. The dynamic range for this assay is 500-5,000,000 copies/mL. This test was developed and its performance characteristics determined by The [facility] Microbiology Laboratory at [facility]. It has not been cleared or approved by the FDA. The laboratory is regulated under CLIA as qualified to perform high-complexity testing. This test is used for clinical purposes. It should not be regarded as investigational or for research. [facility] ALLOSCREEN RECIPIENT (POST T X PRA)on 09-14-2021 AB SPECIFICITY CLASS COMMENT Antibody Specificity testing performed by [employer]. cPRA calculation based on identification of HLA antibody specificities at MFI >2000 and/or presence of CREG antibodies. [facility] Comment on above: Some of the reagents used for testing in the Clinical Histocompatibility Laboratory have yet to be approved by the FDA. Our certification by CLIA to perform high complexity tests allows us to use these reagents in the context of a stringent QC program, and obviates the need for FDA approval.Testing performed by the [facility] Clinical Histocompatibility Laboratory. [facility] number: [id number]. CLIA number: [id number], Director: Lawson Christianson, PhD, D([facility]). ANTIBODY SPECIFICITY INTERPRETATION Detected [facility] CLASS I SPECIFICITIES A:2 68 69 B:57 [facility] CLASS II SPECIFICITIES DQ:5 6 [facility] HLA Ab (S) 83 % High 0 [facility] Interpretation and review of laboratory results Abnormal [facility] CALCIUMon 09-11-2021 Calcium [Mass/Vol] 10.4 mg/dL 8.6 - 10. 5 mg/dL [facility] CBC,PLATELETSon 09-11-2021 Erythrocyte distribution width (RBC) [Ratio] 13.3 % 10.8 - 14.9 % [facility] Hematocrit (Bld) [Volume fraction] 32.3 % Low 34.9 - 44.3 % [facility] Hemoglobin (Bld) [Mass/Vol] 10.2 g/dL Low 11.4 - 15.2 g/dL [facility] Interpretation and review of laboratory results Abnormal [facility] MCH (RBC) [Entitic mass] 28.3 pg 25.9 - 33.9 pg [facility] MCHC (RBC) [Mass/Vol] 31.6 g/dL 31.4 - 35.9 g/dL [facility] MCV (RBC) [Entitic vol] 89.5 fL 79.6 - 97.7 fL [facility] Platelet mean volume (Bld) [Entitic vol] 9.7 fL 8.5 - 12.2 fL [facility] Platelets (Bld) [#/Vol] 365 10*3/uL 150 - 393 K/uL [facility] RBC (Bld) [#/Vol] 3.61 10*6/uL Low [facility] WBC (Bld) [#/Vol] 1.79 10*3/uL Low 3.99 - 11.19 K/uL [facility] CHEM 7 (LYTES,BUN,CREA,GLUC) on 09-11-2021 Anion gap [Moles/Vol] 16 mmol/L 7 - 17 mmol/L [facility] Chloride [Moles/Vol] 105 mmol/L 98 - 10 8 mmol/L [facility] CO2 [Moles/Vol] 19 mmol/L Low 21 - 31 mmol/L [facility] Creatinine [Mass/Vol] 1.51 mg/dL High 0.50 - 1.20 mg/dL [facility] GFR/1.73 sq M.predicted CKD-EPI (S/P/Bld) [Vol rate/Area] 40 Low >=60 mL/min/1.7 3m2 [facility] Comment on above: Reported eGFR is bas ed on the CKD-EPI 2020 equation using creatinine, age, and sex. Glucose [Mass/Vol] 94 mg/dL 70 - 99 mg/dL [facility] Osmolality Calc [Osmolality] 289 [facility] Potassium [Moles/Vol] 4.0 mmol/L 3.5 - 5.0 mmol/L [facility] Sodium [Moles/Vol] 136 mmol/L 135 - 145 mmol/L [facility] Urea nitrogen [Mass/Vol] 23 mg/dL 7 - 25 mg/dL [facility] Urea nitrogen/Creatinine [Mass ratio] 15 mg/mg [facility] CHOLESTEROL TOTALon 09-12-19 Cholesterol [Mass/Vol] 124 mg/dL <200 [facility] Comment on above: [<200 mg/dL: Desirab le] [200-239 mg/dL: Borderline High] [>239 mg/dL: High] HEMOGLOBIN [id number] By: Noemi Powell on 09-11-2021 Average glucose Estimated from glycated hemoglobin (Bld) [Mass/Vol] 120 mg/dL [facility] HbA1c (Bld) [Mass fraction] 5.8 % High 4.7 - 5.6 % [facility] Interpretation and review of laboratory results Abnormal [facility] HEPATIC FUNCTION PANELon Albumin [Mass/Vol] 3.6 g/dL 3.5 - 5.0 g/dL [facility] ALP [Catalytic activity/Vol] 103 U/L 32 - 126 U/L [facility] ALT [Catalytic activity/Vol] 16 U/L 9 - 48 U/L [facility] AST [Catalytic activity/Vol] 19 U/L 10 - 39 U/L [facility] Bilirubin [Mass/Vol] 0.3 mg/dL <1.5 [facility] Bilirubin.direct [Mass/Vol] 0.1 mg/dL <0.3 [facility] Protein [Mass/Vol] 6.3 g/dL Low 6.4 - 8.3 g/dL [facility] IRON/IRON BINDING/TRANSFERRI Non 09-11-2021 Iron [Mass/Vol] 39 ug/dL Low [facility] Iron binding capacity [Mass/Vol] 177 Low [facility] Iron saturation [Mass fraction] 22 % 20 - 55 % [facility] Transferrin [Mass/Vol] 119 mg/dL Low 200 - 400 mg/dL [facility] MAGNESIUMon 09-11-2021 Magnesium [Mass/Vol] 1.2 mg/dL Low 1.6 - 2 .6 mg/dL [facility] No Panel Informationon 09-11 Interpretation and review of laboratory results Abnormal [facility] Interpretation and review of laboratory results Normal [facility] PHOSPHATE, INORGANICon 09-11 Interpretation and review of laboratory results Abnormal [facility] Phosphate [Mass/Vol] 1.9 mg/dL Low 2.2 - 4 .6 mg/dL [facility] PTH INTACTon 09-11-2021 Interpretation and review of laboratory results Abnormal [facility] Parathyrin.intact [Mass/Vol] 156.5 pg/mL High 14.0 - 72.0 pg/mL [facility] URIC ACIDon 09-11-2021 Interpretation and review of laboratory results Normal [facility] Urate [Mass/Vol] 4.5 mg/dL 2.8 - 6.0 mg/dL [facility] URINE DIPSTICK WITH REFLEX M ICROSCOPYon 09-11-2021 Appearance (U) Cloudy Abnormal Clear [facility] Color (U) Yellow Yellow [facility] Glucose Test strip (U) [Mass/Vol] Negative Negative [facility] Interpretation and review of laboratory results Abnormal [facility] Ketones (U) [Mass/Vol] 15 mg/dL = Small Abnormal Negative [facility] Leukocyte esterase Test strip Ql (U) Trace Abnormal Negative [facility] Nitrite Ql (U) Positive Abnormal Negative [facility] pH (U) 5.0 [pH] 5.0 - [facility] ([facility]) [Mass/Vol] Trace Abnormal Negative [facility] RBC (U) [#/Vol] Negative Negative [facility] Specific gravity (U) [Rel density] 1.027 [facility] Urobilinogen (U) [Mass/Vol] 0.2 E.U./dL 0.2 E.U/dL, 1.0 E.U/dL [facility] URINE MICROSCOPICOrdered By: Humberto Guardado on 09-11-2021 Bacteria LM Ql (Urine sed) PRESENT Abnormal ABSENT [facility] Calcium Oxalate Crystals PRESENT [facility] Epithelial cells.squamous LM Ql (Urine sed) >8/hpf = 4+ Abnormal 1/hpf = 1+, 2-5/hpf = 2+, 0/hpf = 0+, ABSENT [facility] Interpretation and review of laboratory results Abnormal [facility] RBC LM.HPF (Urine sed) [#/Area] 0-2 0 - 2 /HPF [facility] WBC LM.HPF (Urine sed) [#/Area] 10-20 Abnormal 0 - 5 /HPF [facility] URINE PROTEIN/CREA RATIO, RA NDOMon 09-11-2021 Creatinine (24H U) [Mass/Vol] 237.97 mg/dL [facility] Protein Unsp time (U) [Mass/Vol] 51 mg/dL [facility] Protein/Creatinine (U) [Mass ratio] 0.214 mg/g [facility] Absolute lymphocyte counton 09-09-2021 Lymphocytes Auto (Unsp spec) [#/Vol] 0.31 10*3/uL 0.83-4.51 [facility] Work Phone: Basophil percentageon 2021 Basophil percentage 0-5 SEEN /hpf 0-5 [facility] Work Phone: Basophil percentage Not Reportable W [facility] Work Phone: Bilirubin [Mass/Vol] 0.40 mg/dL 0.20-1.00 [facility] Work Phone: Comment on above: For patients on eltr ombopag therapy, use of Dimension [place] TBIL is not recommended. Chloride [Moles/Vol] 105 mmol/L 98-107 [facility] Work Phone: Glucose [Mass/Vol] 138 mg/dL 74-106 [facility] Work Phone: Comment on above: Fasting Glucose resu lt greater than or equal to 126 mg/dL suggests DIABETES MELLITUS per A.D.A. criteria. Lactate [Moles/Vol] 1.2 mmol/L 0.4-2.0 [facility] Work Phone: Neutrophils (Bld) [#/Vol] 2.3 10*3/uL 2.0-7.7 [facility] Work Phone: Potassium [Moles/Vol] 4.1 mmol/L 3.5-5.1 [facility] Work Phone: Protein [Mass/Vol] 6.3 g/dL 6.4-8.2 [facility] Work Phone: Sodium [Moles/Vol] 133 mmol/L 136-145 [facility] Work Phone: WBC (Bld) [#/Vol] 3.1 10*3/uL 4.4-11.0 [facility] Work Phone: Bilirubin Test strip Ql (U)o n 09-09-2021 Bilirubin Ql (U) Negative Negative [facility] Work Phone: Blood band neutrophil count as percentage of total leukocyteson 09-09-2021 Band form neutrophils/100 WBC (Bld) 2 % 0-5 [facility] Work Phone: [phone] Blood eosinophils/100 leukoc yteson 09-09-2021 Eosinophils/100 WBC (Bld) 2 % 0-5 [facility] Work Phone: Blood erythrocytes count (nu mber/volume)on 09-09-2021 RBC (Bld) [#/Vol] 3.57 10*6/uL 4.2-5.4 [facility] Work Phone: Blood hemoglobin measurement (mass/volume)on 09-09-2021 Hemoglobin (Bld) [Mass/Vol] 9.9 g/dL 12.0-15.0 [facility] Work Phone: Blood lymphocytes/100 leukoc yteson 09-09-2021 Lymphocytes/100 WBC (Bld) 10 % 19-41 [facility] Work Phone: Blood metamyelocytes/100 pao kocyteson 09-09-2021 Metamyelocytes/100 WBC (Bld) 1 % 0-1 [facility] Work Phone: Blood monocytes/100 leukocyt eson 09-09-2021 Monocytes/100 WBC (Bld) 9 % 0-10 [facility] Work Phone: Blood platelet adequacy dete ction by light microscopyon 09-09-2021 Platelets LM Ql (Bld) ADEQUATE ADEQ [facility] Work Phone: Blood platelet mean volumeon 09-09-2021 Platelet mean volume (Bld) [Entitic vol] 9.3 fL 6.2-12.0 [facility] Work Phone: Blood segmented neutrophils/ 100 leukocyteson 09-09-2021 Segmented neutrophils/100 WBC (Bld) 73 % 47-70 [facility] Work Phone: Culture, urineon 09-09-2021 Bacteria identified Cx Nom (U) Escherichia coli [facility] Work Phone: Determination of erythrocyte mean corpuscular volume (MCV)on 09-09-2021 MCV (RBC) [Entitic vol] 88.8 fL 81-99 [facility] Work Phone: Hematocrit Auto (Bld) [Volum e fraction]on 09-09-2021 Hematocrit (Bld) [Volume fraction] 31.7 % 37-47 [facility] Work Phone: Ketones Test strip Ql (U)on 09-09-2021 Ketones Ql (U) Negative Negative [facility] Work Phone: Laboratory - Chemistry and C hemistry - challengeon 09-09-2021 ALP [Catalytic activity/Vol] 113 U/L 45-117 [facility] Work Phone: ALT [Catalytic activity/Vol] 17 U/L 13-56 [facility] Work Phone: CO2 [Moles/Vol] 22.0 mmol/L 21.0-32.0 [facility] Work Phone: Globulin (S) [Mass/Vol] 3.3 g/dL 2.2-4.2 [facility] Work Phone: Urea nitrogen/Creatinine [Mass ratio] 11.5 mg/mg 10-20 [facility] Work Phone: Laboratory - Hematology and Cell countson 09-09-2021 Erythrocyte distribution width (RBC) [Entitic vol] 43.1 fL 35.1-43.9 [facility] Work Phone: Erythrocyte distribution width (RBC) [Ratio] 13.2 % 11.6-14.6 [facility] Work Phone: MCH (RBC) [Entitic mass] 27.7 pg 27.0-32.0 [facility] Work Phone: Myelocytes/100 WBC (Bld) 3 % 0-0 [facility] Work Phone: Laboratory - Microbiology an d Antimicrobial susceptibilityon 09-09-2021 Bacteria identified Cx Nom (Bld) Escherichia coli [facility] Work Phone: MCHC Auto (RBC) [Mass/Vol]on 09-09-2021 MCHC (RBC) [Mass/Vol] 31.2 g/dL 32-36 [facility] Work Phone: Mucus LM Ql (Urine sed)on Mucus Ql (Urine sed) 0 SEEN /hpf [facility] Work Phone: Nitrite Test strip Ql (U)on 09-09-2021 Nitrite Ql (U) Negative Negative [facility] Work Phone: No Panel Informationon 09-09 Estimated Creatinine Clearance Calc 29.76 ml/min [facility] Work Phone: Estimated GFR (MDRD) Amer 47 mL/min >60 [facility] Work Phone: Comment on above: GFR Calc Estimated GFR (MDRD) Non-Af Amer 38 mL/min >60 [facility] Work Phone: Comment on above: Non- GFR Calc SARS-CoV-2 & FLU Antigen (Rapid) [facility] Work Phone: Platelets bldon 09-09-2021 Platelets (Bld) [#/Vol] 329 10*3/uL 150-450 [facility] Work Phone: Protein Test strip Ql (U)on 09-09-2021 Protein Ql (U) 15 mg/dl Negative [facility] Work Phone: RBC morphologyon 09-09-2021 RBC morphology finding Nom (Bld) NORM C+C NORMAL NORM C&C [facility] Work Phone: Review by pathologiston Pathologist review Inder (Unsp spec) [Interp] Reviewed [facility] Work Phone: Comment on above: Previous reported re sult: Therese castrejon Edited by: RGOOD on 09/10/21:1126LeukopeniaNormocytic anemia.Clinical correlation necessary.Rufus Guzman M.D. 09/10/21 AMENDED REPORT 09/10/21 1126 PATH REV previously reported as: Therese castrejon Serum or plasma albumin osei urement (mass/volume)on 09-09-2021 Albumin [Mass/Vol] 3.0 g/dL 3.2-5.0 [facility] Work Phone: Serum or plasma albumin/glob ulin mass ratioon 09-09-2021 Albumin/Globulin [Mass ratio] 0.9 {ratio} 0.9-2.4 [facility] Work Phone: Serum or plasma calcium osei urement (mass/volume)on 09-09-2021 Calcium [Mass/Vol] 9.8 mg/dL 8.5-10.[address] [facility] Work Phone: Serum or plasma creatinine m easurement (mass/volume)on 09-09-2021 Creatinine [Mass/Vol] 1.48 mg/dL 0.55-1.02 [facility] Work Phone: Comment on above: The validity of the calculated GFR & GFRAA in patients over 70 years has not been determined. Clinical correlation is essential. Serum or plasma urea nitroge n measurement (mass/volume)on 09-09-2021 Urea nitrogen [Mass/Vol] 17 mg/dL 7-18 [facility] Work Phone: Squamous epithelial cells de tection in urine sediment by light microscopyon 09-09-2021 Epithelial cells.squamous LM Ql (Urine sed) 0-5 SEEN /hpf 5-10 [facility] Work Phone: Thin prep Papanicolaou smear with manual screeningon 09-09-2021 Thin prep Papanicolaou smear with manual screening 16 U/L 15-37 [facility] Work Phone: Thin prep Papanicolaou smear with manual screening 6 5-15 [facility] Work Phone: Total cell counton 2 Cells counted Molgen (Bld/Tiss) [#] 100 MANUAL DIFF [facility] Work Phone: Urine blood detectionon RBC Ql (U) 10 /ul Negative [facility] Work Phone: RBC Ql (U) 0-5 SEEN /hpf 0-5 [facility] Work Phone: Urine clarityon 09-09-2021 Clarity (U) Clear Clear [facility] Work Phone: Urine color determinationon 09-09-2021 Color (U) Yellow Yellow [facility] Work Phone: Urine glucose detectionon Glucose Ql (U) Normal mg/dl Normal [facility] Work Phone: Urine leukocyte esterase det ection by dipstickon 09-09-2021 Leukocyte esterase Test strip Ql (U) 25 /ul Negative [facility] Work Phone: Urine pHon 09-09-2021 pH (U) 5.0 [pH] 5.0 - 8.0 [facility] Work Phone: Urine sediment bacteria coun t by microscopy (number/high power field)on 09-09-2021 Bacteria LM.HPF (Urine sed) [#/Area] 1 /[HPF] None Seen [facility] Work Phone: Urine specific gravity measu rementon 09-09-2021 Specific gravity (U) [Rel density] 1.020 1.002-1.03 0 [facility] Work Phone: Urobilinogen Auto test strip Ql (U)on 09-09-2021 Urobilinogen Ql (U) Normal mg/dl Normal [facility] Work Phone: Basophil percentageon 2021 Chloride [Moles/Vol] 112 mmol/L 98-107 [facility] Work Phone: Glucose [Mass/Vol] 105 mg/dL 74-106 [facility] Work Phone: Comment on above: Fasting Glucose resu lt from 100 to 125 mg/dL suggests IMPAIRED HOMEOSTASIS per A.D.A. criteria. Potassium [Moles/Vol] 4.4 mmol/L 3.5-5.1 [facility] Work Phone: Sodium [Moles/Vol] 141 mmol/L 136-145 [facility] Work Phone: WBC (Bld) [#/Vol] 3.8 10*3/uL 4.4-11.0 [facility] Work Phone: Blood erythrocytes count (nu mber/volume)on 09-07-2021 RBC (Bld) [#/Vol] 3.62 10*6/uL 4.2-5.4 [facility] Work Phone: Blood hemoglobin measurement (mass/volume)on 09-07-2021 Hemoglobin (Bld) [Mass/Vol] 10.1 g/dL 12.0-15.0 [facility] Work Phone: Blood platelet mean volumeon 09-07-2021 Platelet mean volume (Bld) [Entitic vol] 9.9 fL 6.2-12.0 [facility] Work Phone: Determination of erythrocyte mean corpuscular volume (MCV)on 09-07-2021 MCV (RBC) [Entitic vol] 90.6 fL 81-99 [facility] Work Phone: Hematocrit Auto (Bld) [Volum e fraction]on 09-07-2021 Hematocrit (Bld) [Volume fraction] 32.8 % 37-47 [facility] Work Phone: Laboratory - Chemistry and C hemistry - challengeon 09-07-2021 CO2 [Moles/Vol] 22.0 mmol/L 21.0-32.0 [facility] Work Phone: Laboratory - Hematology and Cell countson 09-07-2021 Erythrocyte distribution width (RBC) [Entitic vol] 44.4 fL 35.1-43.9 [facility] Work Phone: Erythrocyte distribution width (RBC) [Ratio] 13.4 % 11.6-14.6 [facility] Work Phone: MCH (RBC) [Entitic mass] 27.9 pg 27.0-32.0 [facility] Work Phone: MCHC Auto (RBC) [Mass/Vol]on 09-07-2021 MCHC (RBC) [Mass/Vol] 30.8 g/dL 32-36 [facility] Work Phone: No Panel Informationon 09-07 Estimated GFR (MDRD) Amer 49 mL/min >60 [facility] Work Phone: Comment on above: GFR Calc Estimated GFR (MDRD) Non-Af Amer 40 mL/min >60 [facility] Work Phone: Comment on above: Non- GFR Calc Tacrolimus (Prograf) Level 10.3 ng/mL 2.0-20.0 [facility] Work Phone: Comment on above: Trough (immediately following transplant) 15.0 Trough (steady state, 2 weeks or more after transplant): 3.0 - 8.0 Performed by LC-MS/MS technology.Performed at: [employer] [facility] [id number] Director: Amaury Dubois MD, Phone: [phone] Platelets bldon 09-07-2021 Platelets (Bld) [#/Vol] 414 10*3/uL 150-450 [facility] Work Phone: Serum or plasma creatinine m easurement (mass/volume)on 09-07-2021 Creatinine [Mass/Vol] 1.42 mg/dL 0.55-1.02 [facility] Work Phone: Comment on above: The validity of the calculated GFR & GFRAA in patients over 70 years has not been determined. Clinical correlation is essential. Serum or plasma urea nitroge n measurement (mass/volume)on 09-07-2021 Urea nitrogen [Mass/Vol] 17 mg/dL 7-18 [facility] Work Phone: Thin prep Papanicolaou smear with manual screeningon 09-07-2021 Thin prep Papanicolaou smear with manual screening 7 5-15 [facility] Work Phone: Basophil percentageon 2021 Basophil percentage 1.9 mg/dL 2.5-4.9 [facility] Work Phone: Bilirubin [Mass/Vol] 0.30 mg/dL 0.20-1.00 [facility] Work Phone: Comment on above: For patients on eltr ombopag therapy, use of Dimension [place] TBIL is not recommended. Chloride [Moles/Vol] 115 mmol/L 98-107 [facility] Work Phone: Cholesterol [Mass/Vol] 139 mg/dL <200 [facility] Work Phone: Comment on above: <200 mg/dL Desirable 200-240 mg/dL Borderline >240 mg/dL High Risk Glucose [Mass/Vol] 103 mg/dL 74-106 [facility] Work Phone: Comment on above: Fasting Glucose resu lt from 100 to 125 mg/dL suggests IMPAIRED HOMEOSTASIS per A.D.A. criteria. Potassium [Moles/Vol] 3.9 mmol/L 3.5-5.1 [facility] Work Phone: Sodium [Moles/Vol] 142 mmol/L 136-145 [facility] Work Phone: Triglyceride [Mass/Vol] 151 mg/dL <199 [facility] Work Phone: Comment on above: The drugs N-Acetylcy steine and Metamizole may falsely depress this assay.Serum Triglycerides Reference Interval Normal <150 mg/dL Borderline high 150 - 199 mg/dL High 200 - 499 mg/dL Very High > or = 500 mg/dL WBC (Bld) [#/Vol] 4.2 10*3/uL 4.4-11.0 [facility] Work Phone: Blood erythrocytes count (nu mber/volume)on 08-24-2021 RBC (Bld) [#/Vol] 4.04 10*6/uL 4.2-5.4 [facility] Work Phone: Blood hemoglobin measurement (mass/volume)on 08-24-2021 Hemoglobin (Bld) [Mass/Vol] 11.7 g/dL 12.0-15.0 [facility] Work Phone: Blood platelet mean volumeon 08-24-2021 Platelet mean volume (Bld) [Entitic vol] 10.1 fL 6.2-12.0 [facility] Work Phone: Determination of erythrocyte mean corpuscular volume (MCV)on 08-24-2021 MCV (RBC) [Entitic vol] 90.3 fL 81-99 [facility] Work Phone: Hematocrit Auto (Bld) [Volum e fraction]on 08-24-2021 Hematocrit (Bld) [Volume fraction] 36.5 % 37-47 [facility] Work Phone: Iron measurement (mass/mass) on 08-24-2021 Iron (Unsp spec) [Mass/Mass] 87 ug/dL 50-170 [facility] Work Phone: Laboratory - Chemistry and C hemistry - challengeon 08-24-2021 ALP [Catalytic activity/Vol] 146 U/L 45-117 [facility] Work Phone: ALT [Catalytic activity/Vol] 22 U/L 13-56 [facility] Work Phone: CO2 [Moles/Vol] 23.0 mmol/L 21.0-32.0 [facility] Work Phone: Magnesium [Mass/Vol] 1.4 mg/dL 1.6-2.6 [facility] Work Phone: Transferrin [Mass/Vol] 143 mg/dL 192-364 [facility] Work Phone: Comment on above: Performed at: - [address] [id number] Director: Amaury Dubois MD, Phone: [phone] at: - [facility] [id number] Director: Marcello Kwon PhD, Phone: [phone] Urea nitrogen/Creatinine [Mass ratio] 15.1 mg/mg 10-20 [facility] Work Phone: Laboratory - Hematology and Cell countson 08-24-2021 Erythrocyte distribution width (RBC) [Entitic vol] 43.1 fL 35.1-43.9 [facility] Work Phone: Erythrocyte distribution width (RBC) [Ratio] 13.1 % 11.6-14.6 [facility] Work Phone: MCH (RBC) [Entitic mass] 29.0 pg 27.0-32.0 [facility] Work Phone: MCHC Auto (RBC) [Mass/Vol]on 08-24-2021 MCHC (RBC) [Mass/Vol] 32.1 g/dL 32-36 [facility] Work Phone: No Panel Informationon 08-24 Cytomegalovirus DNA Qual (PCR) Negative Negative [facility] Work Phone: Comment on above: No Cytomegalovirus D NA Detected.This test was developed and its performance characteristicsdetermined by [employer]. It has not been cleared or approvedby the Food and Drug Administration. The FDA hasdetermined that such clearance or approval is notnecessary. Estimated GFR (MDRD) Amer 56 mL/min >60 [facility] Work Phone: Comment on above: GFR Calc Estimated GFR (MDRD) Non-Af Amer 46 mL/min >60 [facility] Work Phone: Comment on above: Non- GFR Calc Miscellaneous Test See comment [facility] Work Phone: Comment on above: TEST RESULT LIMITSBK V Quant PCR BKV DNA,Quant PCR,Plasma Negative IU/mL Negative NO BK DNA detected. The linear range of the assay is 22-100,000 IU/mL. TESTING PERFORMED AT [facility]. ORIGINAL REPORT ON FILE IN LAB CONTAINS ADDITIONAL TEST SITE INFORMATION. Parathyroid Hormone (Intact) 182.8 pg/mL 18.4-80.1 [facility] Work Phone: [phone] Tacrolimus (Prograf) Level 9.6 ng/mL 2.0-20.0 [facility] Work Phone: Comment on above: Trough (immediately following transplant) 15.0 Trough (steady state, 2 weeks or more after transplant): 3.0 - 8.0 Performed by LC-MS/MS technology. Total Iron Binding Capacity 168 ug/dL 250-450 [facility] Work Phone: Platelets bldon 08-24-2021 Platelets (Bld) [#/Vol] 304 10*3/uL 150-450 [facility] Work Phone: Serum or plasma albumin osei urement (mass/volume)on 08-24-2021 Albumin [Mass/Vol] 3.3 g/dL 3.2-5.0 [facility] Work Phone: Serum or plasma calcium osei urement (mass/volume)on 08-24-2021 Calcium [Mass/Vol] 9.8 mg/dL 8.5-10.1 [facility] Work Phone: Serum or plasma cholesterol in HDL measurement (mass/volume)on 08-24-2021 Cholesterol in HDL [Mass/Vol] 61 mg/dL >40 [facility] Work Phone: Comment on above: The drugs N-Acetylcy steine and Metamizole may falsely depress this assay. Reference Range HDL <40 mg/dL Low HDL Cholesterol HDL >or= 60 mg/dL High HDL Cholesterol Serum or plasma cholesterol in VLDL measurement (mass/volume)on 08-24-2021 Cholesterol in VLDL [Mass/Vol] 30 mg/dL 5-40 [facility] Work Phone: Serum or plasma creatinine m easurement (mass/volume)on 08-24-2021 Creatinine [Mass/Vol] 1.26 mg/dL 0.55-1.02 [facility] Work Phone: Comment on above: The validity of the calculated GFR & GFRAA in patients over 70 years has not been determined. Clinical correlation is essential. Serum or plasma ferritin ace surement (mass/volume)on 08-24-2021 Ferritin [Mass/Vol] 2198 ng/mL 8-252 [facility] Work Phone: Serum or plasma iron saturat ion measurement (mass fraction)on 08-24-2021 Iron saturation [Mass fraction] 51.8 % 15.0-55.0 [facility] Work Phone: Serum or plasma low density lipoprotein (LDL) cholesterol measurement (mass/volume)on 08-24-2021 Cholesterol in LDL [Mass/Vol] 48 mg/dL 0-130 [facility] Work Phone: Serum or plasma urea nitroge n measurement (mass/volume)on 08-24-2021 Urea nitrogen [Mass/Vol] 19 mg/dL 7-18 [facility] Work Phone: Serum or plasma uric acid me asurement (mass/volume)on 08-24-2021 Urate [Mass/Vol] 4.4 mg/dL 2.6-6.0 [facility] Work Phone: Comment on above: The drugs N-Acetylcy steine and Metamizole may falsely depress this assay. Thin prep Papanicolaou smear with manual screeningon 08-24-2021 Thin prep Papanicolaou smear with manual screening 14 U/L 15-37 [facility] Work Phone: Thin prep Papanicolaou smear with manual screening 4 5-15 [facility] Work Phone: Urine creatinine measurement (mass/volume)on 08-24-2021 Creatinine (U) [Mass/Vol] 244.00 mg/dL NO RANGE EST. [facility] Work Phone: Urine protein measurement (m ass/volume)on 08-24-2021 Protein (U) [Mass/Vol] 30.9 mg/dL 0.0-11.8 [facility] Work Phone: Urine protein/creatinine mas s ratioon 08-24-2021 Protein/Creatinine (U) [Mass ratio] 127 mg/g CRE 0-200 [facility] Work Phone: Whole blood hemoglobin A1c/t otal hemoglobin ratio (mass fraction)on 08-24-2021 HbA1c (Bld) [Mass fraction] 5.9 % 3.8-5.6 [facility] Work Phone: Comment on above: Normal < 5.7 % Predi abetic 5.7 - 6.4 % Diabetic >or= 6.5 % Please note range changes. Absolute lymphocyte counton 08-10-2021 Lymphocytes Auto (Unsp spec) [#/Vol] 0.85 10*3/uL 0.83-4.51 [facility] Work Phone: Basophil percentageon 2021 Basophil percentage Not Reportable [facility] Work Phone: [phone] Neutrophils (Bld) [#/Vol] 2.5 10*3/uL 2.0-7.7 [facility] Work Phone: Blood band neutrophil count as percentage of total leukocyteson 08-10-2021 Band form neutrophils/100 WBC (Bld) 5 % 0-5 [facility] Work Phone: [phone] Blood basophils/100 leukocyt eson 08-10-2021 Basophils/100 WBC (Bld) 2 % 0-1 [facility] Work Phone: Blood eosinophils/100 leukoc yteson 08-10-2021 Eosinophils/100 WBC (Bld) 4 % 0-5 [facility] Work Phone: Blood lymphocytes/100 leukoc yteson 08-10-2021 Lymphocytes/100 WBC (Bld) 21 % 19-41 [facility] Work Phone: Blood metamyelocytes/100 pao kocyteson 08-10-2021 Metamyelocytes/100 WBC (Bld) 4 % 0-1 [facility] Work Phone: Blood monocytes/100 leukocyt eson 08-10-2021 Monocytes/100 WBC (Bld) 4 % 0-10 [facility] Work Phone: [phone] Blood platelet adequacy dete ction by light microscopyon 08-10-2021 Platelets LM Ql (Bld) SLT INC ADEQ [facility]: Blood segmented neutrophils/ 100 leukocyteson 08-10-2021 Segmented neutrophils/100 WBC (Bld) 59 % 47-70 [facility] Work Phone: Laboratory - Hematology and Cell countson 08-10-2021 Myelocytes/100 WBC (Bld) 1 % 0-0 [facility] Work Phone: RBC morphologyon 08-10-2021 RBC morphology finding Nom (Bld) NORM C+C NORMAL NORM C&C [facility] Work Phone: Review by pathologiston Pathologist review Inder (Unsp spec) [Interp] Reviewed [facility] Work Phone: Comment on above: Previous reported re sult: Therese castrejon Edited by: ISIDRO on 08/11/21:1012 AMENDED REPORT 08/11/21 1012 PATH REV previously reported as: Therese castrejon Total cell counton 2 Cells counted Molgen (Bld/Tiss) [#] 100 MANUAL DIFF [facility] Work Phone: Absolute lymphocyte counton 08-01-2021 Lymphocytes Auto (Unsp spec) [#/Vol] 0.23 10*3/uL 0.83-4.51 [facility] Work Phone: Basophil percentageon 2021 Basophil percentage 10-25 SEEN /hpf [facility] Work Phone: Basophil percentage Not Reportable W [facility] Work Phone: Chloride [Moles/Vol] 110 mmol/L 98-[address] [facility] Work Phone: Glucose [Mass/Vol] 109 mg/dL 74-106 [facility] [address] [facility] Work Phone: Comment on above: Fasting Glucose resu lt from 100 to 125 mg/dL suggests IMPAIRED HOMEOSTASIS per A.D.A. criteria. Neutrophils (Bld) [#/Vol] 4.1 10*3/uL 2.0-7.7 [facility] Work Phone: Potassium [Moles/Vol] 4.6 mmol/L 3.5-5.1 [facility] [facility] Work Phone: [phone] Sodium [Moles/Vol] 139 mmol/L 136-[address] [facility] Work Phone: WBC (Bld) [#/Vol] 4.7 10*3/uL 4.4-11.[address] [facility] Work Phone: Bilirubin Test strip Ql (U)o n 08-01-2021 Bilirubin Ql (U) Negative Negative [facility] Work Phone: Blood band neutrophil count as percentage of total leukocyteson 08-01-2021 Band form neutrophils/100 WBC (Bld) 6 % 0-5 [facility] Work Phone: Blood eosinophils/100 leukoc yteson 08-01-2021 Eosinophils/100 WBC (Bld) 3 % 0-5 [facility] Work Phone: [phone] Blood erythrocytes count (nu mber/volume)on 08-01-2021 RBC (Bld) [#/Vol] 4.15 10*6/uL 4.2-5.4 [facility] Work Phone: [phone] Blood hemoglobin measurement (mass/volume)on 08-01-2021 Hemoglobin (Bld) [Mass/Vol] 12.2 g/dL 12.0-15.0 [facility] Work Phone: Blood lymphocytes/100 leukoc yteson 08-01-2021 Lymphocytes/100 WBC (Bld) 5 % 19-41 [facility] Work Phone: Blood metamyelocytes/100 pao kocyteson 08-01-2021 Metamyelocytes/100 WBC (Bld) 3 % 0-1 [facility] Work Phone: Blood monocytes/100 leukocyt eson 08-01-2021 Monocytes/100 WBC (Bld) 1 % 0-10 [facility] Work Phone: Blood platelet adequacy dete ction by light microscopyon 08-01-2021 Platelets LM Ql (Bld) ADEQUATE ADEQ [facility] Work Phone: Blood platelet mean volumeon 08-01-2021 Platelet mean volume (Bld) [Entitic vol] 9.5 fL 6.2-12.0 [facility] Work Phone: Blood segmented neutrophils/ 100 leukocyteson 08-01-2021 Segmented neutrophils/100 WBC (Bld) 82 % 47-70 [facility] Work Phone: Culture, urineon 08-01-2021 Bacteria identified Cx Nom (U) Presumptive E. coli [facility] Work Phone: Determination of erythrocyte mean corpuscular volume (MCV)on 08-01-2021 MCV (RBC) [Entitic vol] 90.1 fL 81-99 [facility] Work Phone: Hematocrit Auto (Bld) [Volum e fraction]on 08-01-2021 Hematocrit (Bld) [Volume fraction] 37.4 % 37-47 [facility] Work Phone: Ketones Test strip Ql (U)on 08-01-2021 Ketones Ql (U) Negative Negative [facility] Work Phone: Laboratory - Chemistry and C hemistry - challengeon 08-01-2021 CO2 [Moles/Vol] 26.0 mmol/L 21.0-32.0 [facility] Work Phone: Urea nitrogen/Creatinine [Mass ratio] 15.7 mg/mg 10-20 [facility] Work Phone: Laboratory - Hematology and Cell countson 08-01-2021 Erythrocyte distribution width (RBC) [Entitic vol] 41.7 fL 35.1-43.9 [facility] Work Phone: Erythrocyte distribution width (RBC) [Ratio] 12.7 % 11.6-14.6 [facility] Work Phone: MCH (RBC) [Entitic mass] 29.4 pg 27.0-32.0 [facility] Work Phone: MCHC Auto (RBC) [Mass/Vol]on 08-01-2021 MCHC (RBC) [Mass/Vol] 32.6 g/dL 32-36 [facility] Work Phone: Mucus LM Ql (Urine sed)on Mucus Ql (Urine sed) 0 SEEN /hpf [facility] Work Phone: Nitrite Test strip Ql (U)on 08-01-2021 Nitrite Ql (U) Negative Negative [facility] Work Phone: No Panel Informationon 08-01 Estimated Creatinine Clearance Calc 36.40 ml/min [facility] Work Phone: Estimated GFR (MDRD) Amer 59 mL/min >60 [facility] Work Phone: Comment on above: GFR Calc Estimated GFR (MDRD) Non-Af Amer 49 mL/min >60 [facility] Work Phone: Comment on above: Non- GFR Calc Platelets bldon 08-01-2021 Platelets (Bld) [#/Vol] 326 10*3/uL 150-450 [facility] Work Phone: Protein Test strip Ql (U)on 08-01-2021 Protein Ql (U) Negative Negative [facility] Work Phone: RBC morphologyon 08-01-2021 RBC morphology finding Nom (Bld) NORM C+C NORMAL NORM C&C [facility] Work Phone: Review by pathologiston 07-08 Pathologist review Inder (Unsp spec) [Interp] Reviewed [facility] Work Phone: Comment on above: Previous reported re sult: Therese castrejon Edited by: RGOOD on 08/04/21:1020 AMENDED REPORT 08/04/21 1020 PATH REV previously reported as: Therese castrejon Serum or plasma calcium osei urement (mass/volume)on 08-01-2021 Calcium [Mass/Vol] 10.5 mg/dL 8.5-10.1 [facility] Work Phone: Serum or plasma creatinine m easurement (mass/volume)on 08-01-2021 Creatinine [Mass/Vol] 1.21 mg/dL 0.55-1.02 [facility] Work Phone: Comment on above: The validity of the calculated GFR & GFRAA in patients over 70 years has not been determined. Clinical correlation is essential. Serum or plasma urea nitroge n measurement (mass/volume)on 08-01-2021 Urea nitrogen [Mass/Vol] 19 mg/dL 7-18 [facility] Work Phone: Squamous epithelial cells de tection in urine sediment by light microscopyon 08-01-2021 Epithelial cells.squamous LM Ql (Urine sed) 0-5 SEEN /hpf [facility] Work Phone: Thin prep Papanicolaou smear with manual screeningon 08-01-2021 Thin prep Papanicolaou smear with manual screening 3 5-15 [facility] Work Phone: Total cell counton 2 Cells counted Molgen (Bld/Tiss) [#] 100 MANUAL DIFF [facility] Work Phone: Urine blood detectionon 07-08 RBC Ql (U) 10 /ul Negative [facility] Work Phone: RBC Ql (U) 0 SEEN /hpf [facility] Work Phone: Urine clarityon 08-01-2021 Clarity (U) Clear Clear [facility] Work Phone: Urine color determinationon 08-01-2021 Color (U) Yellow Yellow [facility] Work Phone: Urine glucose detectionon Glucose Ql (U) Normal mg/dl Normal [facility] Work Phone: Urine leukocyte esterase det ection by dipstickon 08-01-2021 Leukocyte esterase Test strip Ql (U) 100 /ul Negative [facility] Work Phone: Urine pHon 08-01-2021 pH (U) 5.0 [pH] [facility] Work Phone: Urine sediment bacteria coun t by microscopy (number/high power field)on 08-01-2021 Bacteria LM.HPF (Urine sed) [#/Area] RARE /hpf None Seen [facility] Work Phone: Urine specific gravity measu rementon 08-01-2021 Specific gravity (U) [Rel density] 1.010 [facility] Work Phone: Urobilinogen Auto test strip Ql (U)on 08-01-2021 Urobilinogen Ql (U) Normal mg/dl Normal [facility] Work Phone: Basophil percentageon 2021 Basophil percentage 2.0 mg/dL 2.5-4.9 [facility] Work Phone: Bilirubin [Mass/Vol] 0.30 mg/dL 0.20-1.00 [facility] Work Phone: Comment on above: For patients on eltr ombopag therapy, use of Dimension [place] TBIL is not recommended. Chloride [Moles/Vol] 111 mmol/L 98-107 [facility] Work Phone: Glucose [Mass/Vol] 105 mg/dL 74-106 [facility] Work Phone: Comment on above: Fasting Glucose resu lt from 100 to 125 mg/dL suggests IMPAIRED HOMEOSTASIS per A.D.A. criteria. Potassium [Moles/Vol] 4.3 mmol/L 3.5-5.1 [facility] Work Phone: Sodium [Moles/Vol] 139 mmol/L 136-145 [facility] Work Phone: WBC (Bld) [#/Vol] 3.8 10*3/uL 4.4-11.0 [facility] Work Phone: Blood erythrocytes count (nu mber/volume)on 07-27-2021 RBC (Bld) [#/Vol] 4.18 10*6/uL 4.2-5.4 [facility] Work Phone: Blood hemoglobin measurement (mass/volume)on 07-27-2021 Hemoglobin (Bld) [Mass/Vol] 12.2 g/dL 12.0-15.0 [facility] Work Phone: Blood platelet mean volumeon 07-27-2021 Platelet mean volume (Bld) [Entitic vol] 10.1 fL 6.2-12.0 [facility] Work Phone: Determination of erythrocyte mean corpuscular volume (MCV)on 07-27-2021 MCV (RBC) [Entitic vol] 91.9 fL 81-99 [facility] Work Phone: Hematocrit Auto (Bld) [Volum e fraction]on 07-27-2021 Hematocrit (Bld) [Volume fraction] 38.4 % 37-47 [facility] Work Phone: Laboratory - Chemistry and C hemistry - challengeon 07-27-2021 ALP [Catalytic activity/Vol] 137 U/L 45-117 [facility] Work Phone: ALT [Catalytic activity/Vol] 21 U/L 13-56 [facility] Work Phone: CO2 [Moles/Vol] 22.0 mmol/L 21.0-32.0 [facility] Work Phone: Magnesium [Mass/Vol] 2.0 mg/dL 1.6-2.6 [facility] Work Phone: Urea nitrogen/Creatinine [Mass ratio] 17.6 mg/mg 10-20 [facility] Work Phone: Laboratory - Hematology and Cell countson 07-27-2021 Erythrocyte distribution width (RBC) [Entitic vol] 43.6 fL 35.1-43.9 [facility] Work Phone: Erythrocyte distribution width (RBC) [Ratio] 13.0 % 11.6-14.6 [facility] Work Phone: MCH (RBC) [Entitic mass] 29.2 pg 27.0-32.0 [facility] Work Phone: MCHC Auto (RBC) [Mass/Vol]on 07-27-2021 MCHC (RBC) [Mass/Vol] 31.8 g/dL 32-36 [facility] Work Phone: No Panel Informationon 07-27 Cytomegalovirus DNA Qual (PCR) Negative Negative [facility] Work Phone: Comment on above: No Cytomegalovirus D NA Detected.This test was developed and its performance characteristicsdetermined by [facility]. It has not been cleared or approvedby the Food and Drug Administration. The FDA hasdetermined that such clearance or approval is notnecessary. Estimated GFR (MDRD) Amer 60 mL/min >60 [facility] Work Phone: Comment on above: GFR Calc Estimated GFR (MDRD) Non-Af Amer 49 mL/min >60 [facility] Work Phone: Comment on above: Non- GFR Calc Miscellaneous Test See comment [facility] Work Phone: Comment on above: TEST RESULT LIMITSBK V Quant PCR Negative IU/mL Negative No BK DNA detected. The linear range of the assay is 22-100,000,000 IU/mL TESTING PERFORMED AT [facility]. ORIGINAL REPORT ON FILE IN LAB CONTAINS ADDITIONAL TEST SITE INFORMATION. Parathyroid Hormone (Intact) 153.2 pg/mL 18.4-80.1 [facility] Work Phone: Tacrolimus (Prograf) Level 8.9 ng/mL [facility] Work Phone: Comment on above: Trough (immediately following transplant) 15.0 Trough (steady state, 2 weeks or more after transplant): 3.0 - 8.0 Performed by LC-MS/MS technology.Performed at: [facility] [address] [id number] Director: Amaury Dubois MD, Phone: [phone] Platelets bldon 07-27-2021 Platelets (Bld) [#/Vol] 395 10*3/uL 150-450 [facility] Work Phone: Serum or plasma albumin osei urement (mass/volume)on 07-27-2021 Albumin [Mass/Vol] 3.7 g/dL 3.2-5.0 [facility] Work Phone: Serum or plasma calcium osei urement (mass/volume)on 07-27-2021 Calcium [Mass/Vol] 10.7 mg/dL 8.5-10.1 [facility] Work Phone: Serum or plasma creatinine m easurement (mass/volume)on 07-27-2021 Creatinine [Mass/Vol] 1.19 mg/dL 0.55-1.02 [facility] Work Phone: Comment on above: The validity of the calculated GFR & GFRAA in patients over 70 years has not been determined. Clinical correlation is essential. Serum or plasma urea nitroge n measurement (mass/volume)on 07-27-2021 Urea nitrogen [Mass/Vol] 21 mg/dL 7-18 [facility] Work Phone: Serum or plasma uric acid me asurement (mass/volume)on 07-27-2021 Urate [Mass/Vol] 4.2 mg/dL 2.6-6.0 [facility] Work Phone: Comment on above: The drugs N-Acetylcy steine and Metamizole may falsely depress this assay. Thin prep Papanicolaou smear with manual screeningon 07-27-2021 Thin prep Papanicolaou smear with manual screening 12 U/L 15-37 [facility] Work Phone: Thin prep Papanicolaou smear with manual screening 6 5-15 [facility] Work Phone: Urine creatinine measurement (mass/volume)on 07-27-2021 Creatinine (U) [Mass/Vol] 128.00 mg/dL NO RANGE EST. [facility] Work Phone: Urine protein measurement (m ass/volume)on 07-27-2021 Protein (U) [Mass/Vol] 13.7 mg/dL 0.0-11.8 [facility] Work Phone: Urine protein/creatinine mas s ratioon 07-27-2021 Protein/Creatinine (U) [Mass ratio] 107 mg/g CRE 0-200 [facility] Work Phone: Basophil percentageon 2021 Basophil percentage 2.5 mg/dL 2.5-4.9 [facility] Work Phone: Bilirubin [Mass/Vol] 0.50 mg/dL 0.20-1.00 [facility] Work Phone: Comment on above: For patients on eltr ombopag therapy, use of Dimension [place] TBIL is not recommended. Chloride [Moles/Vol] 112 mmol/L 98-107 [facility] Work Phone: Glucose [Mass/Vol] 107 mg/dL 74-106 [facility] Work Phone: Comment on above: Fasting Glucose resu lt from 100 to 125 mg/dL suggests IMPAIRED HOMEOSTASIS per A.D.A. criteria. Potassium [Moles/Vol] 4.3 mmol/L 3.5-5.1 [facility] Work Phone: Sodium [Moles/Vol] 142 mmol/L 136-145 [facility] Work Phone: WBC (Bld) [#/Vol] 4.7 10*3/uL 4.4-11.0 [facility] Work Phone: Blood erythrocytes count (nu mber/volume)on 06-29-2021 RBC (Bld) [#/Vol] 4.16 10*6/uL 4.2-5.4 [facility] Work Phone: Blood hemoglobin measurement (mass/volume)on 06-29-2021 Hemoglobin (Bld) [Mass/Vol] 11.8 g/dL 12.0-15.0 [facility] Work Phone: Blood platelet mean volumeon 06-29-2021 Platelet mean volume (Bld) [Entitic vol] 10.1 fL 6.2-12.0 [facility] Work Phone: Determination of erythrocyte mean corpuscular volume (MCV)on 06-29-2021 MCV (RBC) [Entitic vol] 92.3 fL 81-99 [facility] Work Phone: Hematocrit Auto (Bld) [Volum e fraction]on 06-29-2021 Hematocrit (Bld) [Volume fraction] 38.4 % 37-47 [facility] Work Phone: Laboratory - Chemistry and C hemistry - challengeon 06-29-2021 ALP [Catalytic activity/Vol] 148 U/L 45-117 [facility] Work Phone: ALT [Catalytic activity/Vol] 21 U/L 13-56 [facility] Work Phone: [phone] CO2 [Moles/Vol] 24.0 mmol/L 21.0-32.0 [facility] Work Phone: Magnesium [Mass/Vol] 2.0 mg/dL 1.6-2.6 [facility] Work Phone: Urea nitrogen/Creatinine [Mass ratio] 16.7 mg/mg 10-20 [facility] Work Phone: Laboratory - Hematology and Cell countson 06-29-2021 Erythrocyte distribution width (RBC) [Entitic vol] 44.5 fL 35.1-43.9 [facility] Work Phone: Erythrocyte distribution width (RBC) [Ratio] 13.2 % 11.6-14.6 [facility] Work Phone: [phone] MCH (RBC) [Entitic mass] 28.4 pg 27.0-32.0 [facility] Work Phone: MCHC Auto (RBC) [Mass/Vol]on 06-29-2021 MCHC (RBC) [Mass/Vol] 30.7 g/dL 32-36 [facility] Work Phone: No Panel Informationon 06-29 Cytomegalovirus DNA Qual (PCR) Negative Negative [facility] Work Phone: Comment on above: No Cytomegalovirus D NA Detected.This test was developed and its performance characteristicsdetermined by [facility]. It has not been cleared or approvedby the Food and Drug Administration. The FDA hasdetermined that such clearance or approval is notnecessary. Estimated GFR (MDRD) Amer 63 mL/min >60 [facility] Work Phone: Comment on above: GFR Calc Estimated GFR (MDRD) Non-Af Amer 52 mL/min >60 [facility] Work Phone: Comment on above: Non- GFR Calc Miscellaneous Test See comment [facility] Work Phone: Comment on above: TEST RESULT LIMITSBK V Quant PCRBKV DNA, Quant PCR, Plasma Negative IU/mL Negative No BK DNA detected.The linear range of the assay is 22 - 100,000,000 IU/mL. TESTING PERFORMED AT [facility]. ORIGINAL REPORT ON FILE IN LAB CONTAINS ADDITIONAL TEST SITE INFORMATION. Parathyroid Hormone (Intact) 279.7 pg/mL 18.4-80.1 [facility] Work Phone: Tacrolimus (Prograf) Level 6.5 ng/mL [facility] Work Phone: Comment on above: Trough (immediately following transplant) 15.0 Trough (steady state, 2 weeks or more after transplant): 3.0 - 8.0 Performed by LC-MS/MS technology.Performed at: - [address] [id number] Director: Amaury Dubois MD, Phone: [phone] Platelets bldon 06-29-2021 Platelets (Bld) [#/Vol] 372 10*3/uL 150-450 [facility] Work Phone: Serum or plasma albumin osei urement (mass/volume)on 06-29-2021 Albumin [Mass/Vol] 3.7 g/dL 3.2-5.0 [facility] Work Phone: Serum or plasma calcium osei urement (mass/volume)on 06-29-2021 Calcium [Mass/Vol] 11.1 mg/dL 8.5-10.1 [facility] Work Phone: Serum or plasma creatinine m easurement (mass/volume)on 06-29-2021 Creatinine [Mass/Vol] 1.14 mg/dL 0.55-1.02 [facility] Work Phone: Comment on above: The validity of the calculated GFR & GFRAA in patients over 70 years has not been determined. Clinical correlation is essential. Serum or plasma urea nitroge n measurement (mass/volume)on 06-29-2021 Urea nitrogen [Mass/Vol] 19 mg/dL 7-18 [facility] Work Phone: Serum or plasma uric acid me asurement (mass/volume)on 06-29-2021 Urate [Mass/Vol] 4.2 mg/dL 2.6-6.0 [facility] Work Phone: Comment on above: The drugs N-Acetylcy steine and Metamizole may falsely depress this assay. Thin prep Papanicolaou smear with manual screeningon 06-29-2021 Thin prep Papanicolaou smear with manual screening 13 U/L 15-37 [facility] Work Phone: Thin prep Papanicolaou smear with manual screening 6 5-15 [facility] Work Phone: Urine creatinine measurement (mass/volume)on 06-29-2021 Creatinine (U) [Mass/Vol] 107.00 mg/dL NO RANGE EST. [facility] Work Phone: Urine protein measurement (m ass/volume)on 06-29-2021 Protein (U) [Mass/Vol] 13.8 mg/dL 0.0-11.8 [facility] Work Phone: Urine protein/creatinine mas s ratioon 06-29-2021 Protein/Creatinine (U) [Mass ratio] 129 mg/g CRE 0-200 [facility] Work Phone: Laboratory - Microbiology an d Antimicrobial susceptibilityon 06-11-2021 SARS-CoV-2 (COVID-19) RNA NORA+probe Ql (Unsp spec) Not detected Not Detect [facility] Work Phone: Comment on above: Normal Reference Ran ge: Not DetectedMethod:(RT-PCR) real-time reverse transcriptase PCRLuminex [employer] Instrument*The Food and Drug Administration (FDA) has issued an Emergency Use Authorization (EAU) for the [employer] SARS-CoV-2 Assay for the rapid detection of the virus that causes COVID-19. This test has been validated, but the FDAs independent review of this validation is pending.*Negative results do not preclude infection and should not be used as the sole basis for treatment or patient management. Optimum specimen types and timing for peak viral levels during infections caused by SARS-CoV-2 have not been determined. Collection of multiple specimens from the same patient may be necessary to detect the virus. The possibility of a false negative result should be considered if the patient has clinical presentation or has had recent exposure. ALLOCROSSMATCH, FLOWon 09-10 ALLOCROSSMATCH, FLOW COMMENT Normal [facility] Comment on above: Result Comment: SEE SEPARATE REPORT. Performed By: #### F KRISHNA #### [facility] [address] [place] [address] ALLOXM-FOR ADDN'L SERUMon ALLOXM-FOR ADDN'L SERUM COMMENT Normal [facility] Comment on above: Result Comment: SEE SEPARATE REPORT. Performed By: #### F LADEBRA #### [facility] [address] [place] [address] [facility] Venous Duplex Ultra sound DVTon 06-13-2020 [facility] Venous Duplex Ultrasound DVT [place] [id number], Vascular Lab Report Upper Venous Duplex Ultrasound Patient Name: CATE FOX Reading Physician: [id number] Rishi Victoria MD Study Date: 06/13/2020 Referring Physician: [id number] Foreman MD MRN/PID: [id number] PCP: Accession/Order#: [id number] CC Report to: Date of : 1960 Technologist: Sharee Merino RVT Gender: F Technologist 2: Admission Status: Outpatient Location Performed: [facility] Diagnosis/ICD: M79.89-Left arm swelling Procedure/CPT: 54435 Peripheral venous duplex scan for DVT [id number] Pertinent History: Lt arm swelling. CONCLUSIONS: Right Upper Venous: The subclavian demonstrates a normal spontaneous and phasic flow. Left Upper Venous: No evidence of acute deep vein thrombus visualized in the left upper extremity. Known occluded AVF visualized. Unable to visualize the cephalic vein. Imaging AND Doppler Findings: Right Compressible Thrombus Flow Internal Jugular Yes None Pulsatile Left Compress Thrombus Flow Internal Jugular Yes None Spontaneous/Phasic Subclavian Yes None Subclavian Proximal Yes None Spontaneous/Phasic Subclavian Mid Yes None Spontaneous/Phasic Subclavian Distal Yes None Axillary Yes None Spontaneous/Phasic Brachial Yes None Basilic Yes None [id number] Rishi Victoria MD Final Normal [facility] Otheron 04-25-2020 HLA-A+B+C (class I) Ab (S) SEE COMMENT [facility] Work Phone: Comment on above: HLA-CLASS I SP ANTIB YOSELIN IDENTIFICATION, HIGH DEFINITION SEE SEPARATE REPORT. HLA-DP+DQ+DR (class II) Ab (S) SEE COMMENT [facility] Work Phone: Comment on above: HLA-CLASS II SP ANTI BODY IDENTIFICATION, HIGH DEFINITION SEE SEPARATE REPORT. CT COMPARISON IMPORTon 04-22 This order has been auto-finalized and does not contain a result. [facility] Chart Updateon 01-25-2020 Chart Update Diagnoses/Problems Complication of arteriovenous dialysis fistula (996.73) (T82.9XXA) End stage renal disease (585.6) (N18.6) Added by Problem List Migration; 2013-01-29; Moved to [facility] May 04 2013 9:14PM Chart Update 59 yo LHD F ESRD on HD at home [place]/M/W/Th for 3.5 h daily, supported byQuoc [place] Fingerprint Clerk = Nicole Epperson DO ([facility] [address], [place] [address]; , FAX [phone]). On PD from [id number], terminated due to peritonitis. Previous R forearm and arm AVG (Sha), immediate failure. 04/21/2016: L brachiobasilc AVF (Ahsan) 08/04/2016: Transposition AVF (Ahsan) 09/27/2016: Authorized for use, cannulated 2-3 times, then infiltration. Rest x 2 weeks, then infiltration again. 12/24/2016: OFFAL BALER juxta-anastomotic stricture (Ahsan) 04/06/2018: ANGIO- OFFAL BALER L radial and HAMIDA artery stenosis for mild steal symptoms (Ahsan). Full relief. AVF thrombosed in September 2019 and could not be salvaged. Currently dialyzing via L IJ tunneled catheter. 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 Had been on warfarin previously, however switched to Eliquis by Transplant ([facility]) due to concerns about inability to rapidly reverse warfarin if she got called for an organ. Also taking midodrine, due to persistent hypotension (systolic < 100 mmHg). Listed for extended donor criteria renal transplant; has been called in twice in 2019, but did not receive the organ either time. 10/19/2019: L brachoaxillary AVG (Ahsan). Has had some cannulation trouble with this graft and a couple of infiltrations. Thus, her catheter has not yet been removed. 01/04/2020: Percutaneous thrombectomy, OFFAL BALER long segment axillary vein stenosis (Ahsan). sBP noted 70's-80's, with dBP in the 40's. Midodrine was increased by Nephrology to 10 mg daily. 01/22/2020: Percutaneous thrombectomy, OFFAL BALER/stenting of long segment axillary vein occlusion (Foreman). Pt called saying RN's still could not cannulate AVG successfully, though a bruit was audible. She came for duplex today, which showed the AVG is thrombosed. She is notably upset. History of provoked DVT and PE, on anticoagulation. In 2016, diagnosed with R radial artery occlusion due to arterial line for bilateral nephrectomy. She was diagnosed with post-op R IJ/SCV/axillary DVT in 2017, which is why we avoided that arm for access afterwards. 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 R radial artery appears patent to wrist, with normal signals, measures < 2 mm diameter). R brachial artery 3.5 mm diam. Cephalic and basilic veins are fibrotic in the arm, < 2 mm diam This was confirmed with bedside duplex today in the office. R radial pulse 1+ palpable. FURTHER OPTIONS FOR ACCESS -- LEFT ARM: We are unable to return to the L arm due to venous outflow obstruction, stented to the chest wall. She is not a HeRO candidate due to chronic hypotension. RIGHT ARM: Prior forearm looped AVG and brachiocephalic AVF failed immediately post-op for unknown mechanism. Prior arterial and venous occlusions on this side, all seem resolved by recent imaging. We discussed R arm AVG (no fistula options there). Concerns discussed included: - Risk of arm edema, even though prior DVT has resolved, she may have valvular incompetence and risk of venous hypertension. 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 Inflow arteries are small and she has chronic hypotension. - Chronic hypotension: She may not be able to keep any flow circuit open unless both sBP and dBP can be improved. Can attempt increasing EDW (if tolerated). No signs of CHF. Continue midodrine and consider uptitrating to multiple daily doses. - ANTICOAGULATION: Previously on warfarin, switched to Eliquis by Dr. Singh when listed for transplant at . Review of Portal shows no prior testing for APL syndrome, which if present, would require warfarin be used for effective anticoagulation. Also not sure about dosing of Eliquis, which is not renally dosed for her. Will need to check with Transplant about best drug and dosing for her to achieve all goals. She wishes to proceed with attempt at RUE AVG. Will try to sort out answers to modifiable factors above before proceeding to OR. Signatures Electronically signed by : Joselyn Foreman MD; Jan 25 2020 12:49PM EST (Author) Normal [facility] Dialysis Access [place] 01-25-2020 VASC LAB Dialysis Access Evaluation [place] [id number] and Vascular Lab Report Dialysis Access Evaluation Patient Name: CATE Wright MORENITA Falcon Physician: Nico Foreman MD Study Date: 01/25/2020 Referring Physician: Nico Foreman MD MRN/PID: [id number] PCP: Accession/Order#: [id number] CC Report to: Date of : 1960 Technologist: Elham Nguyen RVT Gender: F Technologist 2: Admission Status: Outpatient Location Performed: [facility] Diagnosis/ICD: T82.898A-Other specified complication of vascular prosthetic devices, implants and grafts, initial encounter; N18.6-End stage renal disease (ESRD) Procedure/CPT: 90970 Duplex Hemodialysis Access-[id number] Patient History Status post left brachioaxillary AVG thrombectomy/stenting of venous outflow (01/22/2020). CRITICAL RESULT Critical Result: Occluded left brachioaxillary AVG. Notification called to Dr. Joselyn Foreman on 01/25/2020 at 11:54:28 AM by Elham Nguyen RVT. CONCLUSIONS: Dialysis Access Evaluation: Left brachioaxillary AVG and stent located in the venous outflow axillary vein are occluded. Volume flow obtained in inflow brachial artery per order. Patient to see Dr. Foreman immediately following test. Additional Findings: Imaging & Doppler Findings: Dialysis Access Graft Left Velocity Pre Anast 44 cm/s Post Anast 72 cm/s Volume Flow 88.00 ml/min Nico Foreman MD Final Normal [facility] History and Physical - Surgi javier Update < 30 dayson 01-22-2020 History and Physical - Surgical Update < 30 days History & Physical Reviewed: /Lactating: Are You no Are You Currently Breastfeedingno I have reviewed the History and Physical dated: 04-Jan-2020 History and Physical reviewed and relevant findings noted. Patient examined to review pertinent physical findings.: No significant changes Home Medications Reviewed: no changes noted Allergies Reviewed: no changes noted This patient has been seen and discussed with the attending physician responsible for performing the procedure: yes Airway/Sedation Assessment: Emotional Statuscalm Neurologicalert & oriented x 3 Respiratoryclear to auscultation Cardiovascularrhythm & rate regular GI/GUsoft, nontender Pulsespresent: Radial Left Mouth Opening OKyes Neck Flexibility OKyes Loose Teethno Oropharyngeal Classification: Image has been removed. ASA PS ClassificationASA III Sedation Planmoderate (sedation level of 3-4) Consent: COVID-19 Consent: COVID-19 Risk ConsentSurgeon has reviewed sterling risks related to the risk of krista COVID-19 and if they contract COVID-19 what the risks are. Signatures/Attestation/Certi fication: Note Completion: Attending Provider Inpatient Certification StatementObservation patient/other outpatient visits Electronic Signatures: Joselyn Foreman) (Signed 22-Jan-2020 07:14) Authored: History & Physical Reviewed, Airway/Sedation, Consent, Signatures/Attestation/Certi fication Last Updated: 22-Jan-2020 07:14 by Joselyn Foreman) Normal [facility] Homegoing Instructionson Homegoing Instructions Additional Instructions: Appointments: Service/Clinician NameDr Please call Dr. Foreman with any questions or concerns or to schedule a follow up appointment . Belongings Returned: Valuables/Medications/Belong ings Returnedyes Electronic Signatures: Tara Castle (KIARA) (Signed 22-Jan-2020 12:32) Authored: Additional Instructions Last Updated: 22-Jan-2020 12:32 by Tara Castle (RN) [facility] Operative Reports - [place] on 01-22-2020 Operative Reports - Formerly [facility] [address] [place] [address] Patient Name: KAREN. Kyle FOX : 1960 Date of Service: 01/22/2020 Patient Location: [place] [address] Patient Type: O Surgeon: Joselyn Foreman MD Report Type: Operative Reports PREOPERATIVE DIAGNOSIS: Thrombosed arteriovenous graft. POSTOPERATIVE DIAGNOSIS: Thrombosed arteriovenous graft. PROCEDURES PERFORMED: 1. Percutaneous left brachioaxillary AV graft thrombectomy. 2. Balloon angioplasty and stenting of recurrent obliteration of left axillary venous outflow. SURGEON: Joselyn Foreman MD. ANESTHESIA: Local with sedation x 90 minutes. CLINICAL NOTE: This 59-year-old woman with end-stage renal disease has been dialyzing via a left brachioaxillary AV graft constructed a couple of months ago. She still has her catheter in place and it has not been able to be removed because of problems with the AV graft. On January 04, 2020, she underwent percutaneous thrombectomy of the AV graft and balloon angioplasty of stricture identified in the outflow left axillary vein and the venous anastomosis. The AV graft was successfully cannulated a couple of times after that, but then last week was noted to be silent again. She presents at this time for repeat thrombectomy and treatment as appropriate. The patient has known chronic hypotension, with systolic blood pressures ranging from 70 to 90 mmHg, despite midodrine 10 mg daily. DESCRIPTION OF PROCEDURE: The patient was placed on angiographic table in supine position with left arm out. Following administration of intravenous sedation, the arm was interrogated with ultrasound. This demonstrated a PTFE AV graft in the left brachioaxillary location, without thrill, bruit, or color flow, consistent with thrombosis. The graft was fairly collapsed throughout the majority of its course. The venous outflow appeared to taper beyond the anastomosis and the vein was barely discernible alongside the axillary vein, suggesting that this may be the area of culprit stenosis. The arm was prepped and draped. After numbing the overlying skin with local anesthetic, real-time duplex ultrasound guidance was used to perform antegrade puncture of the AV graft on the arterial end with a micropuncture kit. Through the micropuncture sheath, a Glidewire was advanced to the venous anastomosis. The micropuncture sheath was upsized to a 6-Danish angiographic sheath. Angled Glidewire and Berenstein catheter were used to carefully negotiate traversal of the venous anastomosis, which initially deflected the guidewire peripherally down the axillary vein. Eventual traversal of the axillary venous outflow was achieved and the Berenstein catheter passed. Hand-injected contrast through the Berenstein catheter identified the culprit lesion, which was the 5 to 6 cm of terminal axillary vein, which had occluded once again, and was fairly diminutive. Collateral branches were seen directing flow into a larger axillary vein, which connected directly with subclavian vein. The patient was given 5000 units of intravenous heparin. Balloon angioplasty of the left axillary vein was performed with 6 and 7 mm diameter balloons, but with marginal improvement. Therefore, stenting was undertaken using a series of overlapping covered stent grafts. The recipient branch of the left axillary vein was stented from the left subclavian vein all the way through the venous anastomosis of the AV graft using 2 overlapping 7 mm diameter stent grafts and an 8 mm diameter stent graft into the AV graft. Post-dilatation balloon angioplasty was performed with an 8 mm diameter balloon. An Arrow Trerotola device was advanced through the AV graft and used to clear it of thrombus. The antegrade sheath was removed and flushed on the back table, removing thrombotic material. A suitable location on the venous side of the AV graft was identified. After numbing the overlying skin with local anesthetic, real-time duplex ultrasound guidance was used to perform retrograde puncture of the AV graft with a micropuncture kit. A guidewire was passed retrograde across the anastomosis and up the brachial axillary artery. A 6-Danish angiographic sheath was placed. A 5-Danish Charlotte ojri-[id number]-[id number] embolectomy catheter was used to retrieve the arterial plug and restore pulsatility to the AV graft. Hand-injected contrast through the deflated balloon catheter located in the inflow brachial artery was used to perform antegrade venography of the entire circuit. All wires and catheters were removed. Both sheaths were removed after placing 4-0 monofilament pursestring absorbable sutures in the dermis at the puncture sites. Direct pressure was held for several minutes and pressure dressings were applied. The patient was taken awake to recovery in stable condition, having tolerated the procedure well. At the end of the procedure, a faint thrill was palpable over the AV graft. The radial pulse was palpable at the left wrist. ANGIOGRAPHIC FINDINGS: 1. Successful percutaneous thrombectomy of left brachioaxillary AV graft. 2. No evidence of stenosis at the arterial anastomosis to the distal brachial artery or within the visualized portions of the inflow or outflow brachial artery. 3. The PTFE graft loop itself has been fully cleared of thrombus, without residual, stenosis, or aneurysmal dilatation noted. 4. The venous anastomosis was to one of 2 paired axillary veins, the more diminutive of the two. This was noted on thrombectomy, January 04, 2020. Balloon angioplasty of this segment of the left axillary vein was performed at the last thrombectomy procedure and again on today's procedure, but with little response today. Several collaterals were seen draining the venous anastomosis toward the opposite more robust paired axillary vein and then into the subclavian vein from there. However, there was no direct connection between the venous anastomosis of the AV graft and the other paired axillary vein. Therefore, as the only possible nonsurgical salvage maneuver for this AV graft, stenting was undertaken from the left subclavian vein all the way back through the recipient left axillary vein and into the venous anastomosis of the AV graft using overlapping 7 and 8 mm diameter Bard Covera stent grafts. A 7 x 60 mm diameter stent graft was placed most centrally, overlapped with a 7 x 40 mm stent graft, finally overlapped with an 8 x 80 mm stent graft back up into the AV graft venous anastomosis. Final imaging demonstrated wide patency of the area with a strong outflow into the left subclavian vein. 5. No evidence of central venous obstruction with widely patent left subclavian and brachiocephalic veins. The superior vena cava also was widely patent. A tunneled right internal jugular catheter was seen entering the chest from that approach, and there was no evidence of stenosis around the catheter tips in the superior vena cava. Joselyn Foreman MD EST TT: 01/23/2020 03:33 AM EST DICTATION NUMBER: [id number] [facility] JOB NUMBER: [id number] CC: Carson Russell MD, NICOLE EPPERSON DO Electronic Signatures: Mayra Elizondo (UNIT SECT) (On behalf of Joselyn Foreman) on 23-Jan-2020 14:03) Joselyn Foreman) (Signed on 24-Jan-2020 07:55) Authored Unsigned, Draft (SYS GENERATED) (Entered on 23-Jan-2020 03:33) Entered Last Updated: 24-Jan-2020 07:55 by Joselyn Foreman) [facility] Patient Profile - Preop v2on 01-22-2020 Patient Profile - Preop v2 Profile: Initial Info: How to be AddressedKaren(1) Spoken Language PreferredEnglish (1) Are you currently using the Personal Electronic Health Record or Golden Reviewsyes (1) Stated Reason for AdmissionDe clot graft in left arm Primary Contact Name and NumberHusband in waiting room Patient Belongingsremains with patient Medications Brought to Hospitalno General Health: Weight in kg66 kilogram(s) Weight in mvz701.5 pound(s) Weight Methodactual (measured) Scale Typestanding Height in feet5 feet Height in inches0 inch(es) Height in cm152.4 centimeter(s) Height Methodstated BMI (kg/m2)28.416 square meter Patient or Family Member Reaction to Anesthesiano previous reaction Blood Avoidance/Restrictionsnone Previous Transfusion Reactionno Health Mgmt: Symptoms/Conditions Managed at Homeendocrine; genitourinary; hematologic; respiratory Are You no Are You Currently Breastfeedingno (2) Endocrine Symptoms/Conditions Commenthx Gout Genitourinary Management Strategiesperitoneal dialysis Peritoneal Dialysis ScheduleSun: Mon: Wed: Tuesday Date of Last Peritoneal [id number] Genitourinary Symptoms/Conditions CommentESRD Hematologic Symptoms/Conditionsanemia Respiratory Symptoms/Conditions CommentPE Barriers to Managing Healthnone Relationship/Environ: Living Arrangementshouse Lives Withspouse Resource/Environmental Concernsnone Anticipated Transition Tohenderson Services Anticipated at Transitionnone Substance: Current or Former Substance Use never: Cigarette/Tobacco(1), e-Cigarette/Vaping(1), Alcohol(1), Street Drugs Risk Screens: COVID-19 Screening Completedno exposure or symptoms Advance Directive/DNRyes Advance Directive typeDurable Power of Diabetes Nurse for Healthcare During the past month, have you often been bothered by feeling down, depressed or hopelessno During the past month, have you often had little interest or pleasure in doing thingsno Have you had any thoughts of harming yourselfno Have you had any thoughts of harming anyone elseno Are you or have you been threatened or abused physically,emotionally or sexually abused by anyoneno Do you feel UNSAFE going back to the place you are livingno Patient is Able to be Assessed for Learningyes Factors Influencing Readiness to Learnanxiety Factors that Impact Ability to Learnvisual problems Devices/Methods Used to Communicateglasses Learning Preferenceswritten material Cultural Considerationsnone Developmental Considerationsnone Religion Considerationsnone Other learner availableyes... Learnerspouse Factors Influencing Readiness to LearnNone Factors that Impact Ability to Learnnone Devices/Methods Used to Communicatenone Learning Preferenceswritten material Cultural Considerationsnone Developmental Considerationsnone Religion Considerationsnone Falls RiskPatient location auto qualifies him/her for HIGH RISK. Are there any cultural, spiritual, sabianism practices/values/needs that are important for us to knowno Pain Scalenumerical 0-10 Pain Scale Educationteaching provided Current Pain Level0 = None Acceptable Pain Level6 = Moderate Chronic Painno Information Review: Allergies, Home Meds and Significant Events have been Reviewed and Verified with Patient/Familyyes Allergy, Intolerance, Adverse Event: Allergies: ciprofloxacin: Drug, Hives/Urticaria, Active penicillin: Drug, Unknown, Active Intolerances: codeine: Drug, Nausea/Vomiting, Active Significant Events: 22-Jan-2020 Right arm fistula: Past Surgical History, Active Electronic Signatures: Tara Brown (KIARA) (Signed 22-Jan-2020 09:09) Authored: Profile, Additional Information Last Updated: 22-Jan-2020 09:09 by Tara Brown (KIARA) References: 1. Data Referenced From Patient Profile - Adult v2 01-Nov-2019 03:09 2. Data Referenced From History and Physical - Surgical Update < 30 days 22-Jan-2020 07:12 Normal [facility] Preop Checkliston 01-22-2020 Preop Checklist Preop Checklist: Preop Checklist: Arrival [id number] Arrival Time08:33 Temperature C37.8 degrees C Temperature F100 degrees F Heart Rate73 beats per minute Respiratory Rate16 breath per minute Blood Pressure Symdjjyg42 mm/Hg Blood Pressure Josbuteso58 mm/Hg ID Band Onyes Allergy Bandyes HCG Urine TestPatient signed waiver SCD's Appliednot applicable Cardiovascular Assessment: Apicalregular Respiratory Assessment: Respirationsregular unlabored Air Exchangeequal Breath Soundsclear Neurological Assessment: Level of Consciousnessalert, oriented Mobilitymoves all extremities Able to Express Selfyes Age Appropriateyes Emotional Statuscalm Preop Education: Pain Scales and Managementyes Language / Communication: Language / CommunicationEnglish Electronic Signatures: Tara Brown (RN) (Signed 22-Jan-2020 09:17) Authored: Preop Checklist Last Updated: 22-Jan-2020 09:17 by Tara Brown (RN) [facility] History and Physical - Surge ry > 30 dayson 01-04-2020 History and Physical - Surgery > 30 days History of Present Illness: /Lactating: Are You no Are You Currently Breastfeedingno History Present Illness: Reason for surgery: Malfunctioning AVG HPI: 58 yo LHD F ESRD on HD at home, /// for 3.5 h daily, supported by [facility] Fingerprint Clerk = Nicole Epperson DO ([facility] [address] [place] [address]; , FAX [phone]). On PD from [id number], terminated due to peritonitis. Previous R forearm and arm AVG, immediate failure. 04/21/2016: L brachiobasilc AVF (Ahsan) 08/04/2016: Transposition AVF (Ahsan) 09/27/2016: Authorized for use, cannulated 2-3 times, then infiltration. Rest x 2 weeks, then infiltration again. 12/24/2016: AV fistulogram, OFFAL BALER juxta-anastomotic stricture (Ahsan) 04/06/2018: ANGIO- OFFAL BALER L radial and HAMIDA artery stenosis for mild steal symptoms (Ahsan). Doing fairly well until September 2019, when AVF thrombosed and could not be salvaged. Currently dialyzing via L IJ tunneled catheter. Remains on Eliquis twice daily. Also taking midodrine on dialysis days, due to persistent low BP (systolic < 100 mmHg). Listed for extended donor criteria renal transplant; called a few weeks ago and admitted in preparation for surgery, but donor recovered and organ became unavailable for her. 10/19/2019: L brachoaxillary AVG (Ahsan). No new complaints post op. Called in again for admission, but another donor received the organ. Notably, prior history of provoked DVT and PE, on anticoagulation. R radial artery occlusion due to arterial line at time of bilateral nephrectomy 2016. Extensive post op RUE DVT. PMH: ESRD due to PCKD, lap sami, gout, ALL: Multiple SH: Non smoker FH: Cerebral aneurysm (father) Allergies: Allergies: ciprofloxacin: Hives/Urticaria penicillin: Unknown Intolerances: codeine: Nausea/Vomiting Home Medication Review: Home Medications Reviewed: yes Impression/Procedure: Impression and Planned Procedure: AVG venogram Review of Systems: Review of Systems: Constitutional: NEGATIVE: Fever, Chills Eyes: NEGATIVE: Vision Loss/ Change ENMT: NEGATIVE: Nasal Congestion Respiratory: NEGATIVE: Shortness of Breath Cardiac: NEGATIVE: Chest Pain Gastrointestinal: NEGATIVE: Nausea, Vomiting Genitourinary: NEGATIVE: Dysuria Musculoskeletal: NEGATIVE: Pain Neurological: NEGATIVE: Seizures Psychiatric: POSITIVE: Anxiety Skin: NEGATIVE: Pain Endocrine: NEGATIVE: Sweat Hematologic/Lymph: POSITIVE: Anemia Allergic/Immunologic: NEGATIVE: Itching Physical Exam by System: Constitutional: Well developed, awake/alert/oriented x3, no distress, alert and cooperative Eyes: Clear ENMT: Clear Head/Neck: No edema Respiratory/Thorax: CTA Cardiovascular: Reg Gastrointestinal: Soft, NT, ND Musculoskeletal: No deformity Extremities: LUE AVG with thrill; radial pulse absent Neurological: Intact motor, sensory, CN Lymphatic: No significant lymphadenopathy Psychological: Appropriate mood and behavior Skin: Warm and dry, no lesions, no rashes Airway/Sedation Assessment: Mouth Opening OKyes Neck Flexibility OKyes Loose Teethno Oropharyngeal Classification: Image has been removed. ASA PS ClassificationASA III Sedation Planmoderate (sedation level of 3-4) Consent: COVID-19 Consent: COVID-19 Risk ConsentSurgeon has reviewed sterling risks related to the risk of krista COVID-19 and if they contract COVID-19 what the risks are. Signatures/Attestation/Certi fication: Note Completion: Attending Provider Inpatient Certification StatementObservation patient/other outpatient visits Electronic Signatures: Joselyn Foreman) (Signed 04-Jan-2020 07:22) Authored: History of Present Illness, Allergies, Home Medication Review, Impression/Procedure, Review of Systems, Physical Exam, Consent, Signatures/Attestation/Certi fication Last Updated: 04-Jan-2020 07:22 by Joselyn Foreman) [facility] Operative Reports - [place] on 01-04-2020 Operative Reports - [facility] [address] [place] [address] Patient Name: KAREN. Kyle FOX : 1960 Date of Service: 01/04/2020 Patient Location: AOR AOR0 [id number] Patient Type: O Surgeon: Joselyn Foreman MD Report Type: Operative Reports PREOPERATIVE DIAGNOSIS: Thrombosed arteriovenous graft. POSTOPERATIVE DIAGNOSIS: Thrombosed arteriovenous graft. PROCEDURES PERFORMED: 1. Percutaneous thrombectomy of left brachioaxillary AV graft. 2. Balloon angioplasty of venous anastomotic stricture. SURGEON: Joselyn Foreman MD. ANESTHESIA: Local with sedation x 75 minutes. CLINICAL NOTE: This 59-year-old woman with end-stage renal disease is dialyzing via a left brachioaxillary AV graft. She began using the graft for cannulation a couple of weeks ago; therefore, her catheter remains in place. However, the last few times at dialysis, there has been trouble with cannulation, particularly on the venous side of the AV graft loop. Her catheter has been used for dialysis the last 2 sessions. The patient presents for angiographic evaluation. DESCRIPTION OF PROCEDURE: The patient was placed on angiographic table in supine position with left arm out. Following administration of intravenous sedation, the arm was interrogated with ultrasound. This demonstrated a PTFE AV graft in the left brachial axillary location, curving outward on the arm in a horseshoe configuration. There was no thrill, bruit, or color flow within the AV graft. Echogenic thrombotic material was noted throughout. This was consistent with AV graft thrombosis. The venous anastomosis was to one of paired axillary veins, and stenosis was identified at this anastomosis on Grayscale imaging. The axillary vein beyond was patent with compression. The arm was prepped and draped. After numbing the overlying skin with local anesthetic, real-time duplex ultrasound guidance was used to perform antegrade puncture of the AV graft near the arterial end with a micropuncture kit. A guidewire was passed and directed easily across the venous anastomosis. The micropuncture catheter was upsized to a 6-Danish angiographic sheath. The patient was given 6000 units of intravenous heparin. An Arrow-Trerotola thrombectomy device was advanced across the venous anastomosis and deployed. Hand-injected contrast through the deployed device demonstrated continued patency of the recipient axillary vein. The device was pulled back for multiple passes to macerate thrombotic material within the graft. Over the guidewire, the antegrade sheath was removed and flushed on the back table, evacuating clot products. The sheath was replaced. After numbing the overlying skin with local anesthetic, real-time duplex ultrasound guidance was used to perform retrograde puncture of the AV graft on the venous side with a micropuncture kit. A guidewire was directed retrograde across the anastomosis and up the brachial axillary artery. The micropuncture sheath was upsized to a 6-Danish angiographic sheath. A 5-Danish Charlotte [id number] embolectomy catheter was used to retrieve the arterial plug and clear the arterial side of the graft of thrombus. This restored pulsatility to the AV graft, however, outflow obstruction was still noted. Through the antegrade sheath, the Trerotola device was used to break up residual thrombus trapped around the retrograde sheath. This was successful and a faint thrill was now palpable over the AV graft. Balloon angioplasty of the venous anastomosis was performed with an 8 mm diameter balloon, relieving stenosis from an estimated degree of greater than 70% to 0% residual stenosis. This was an 8 mm diameter balloon. The outflow was studied carefully, identifying that the venous anastomosis was to one of paired axillary veins, the less robust of the two. However, they both re-joined as a single axillary vein and the outflow appeared widely patent. No further focal stenosis was identified within the graft circuit. Wires and catheters were removed. Both sheaths were removed after placing 4-0 monofilament pursestring absorbable sutures in the dermis at the puncture sites. Direct pressure was held for several minutes and pressure dressings were applied. The patient was taken awake to recovery in stable condition having tolerated the procedure well. At the end of the procedure, a faint thrill was palpable over the AV graft. The radial pulse was absent at the left wrist at baseline. Notably, during the procedure, the patient's baseline blood pressure of 80 systolic bounced around between 75 and 80s systolic during the case. She remained asymptomatic throughout this and blood pressure did not drop further with the use of sedation. She has chronic hypotension and takes midodrine around the time of her dialysis sessions. ANGIOGRAPHIC FINDINGS: 1. Successful percutaneous thrombectomy of left brachioaxillary AV graft. 2. No evidence of stenosis at the arterial anastomosis to the distal brachial artery or within the visualized portions of the inflow or outflow brachial artery. The proximal forearm arteries were patent. Balloon angioplasty of the arterial anastomosis was undertaken to loosen adherent thrombus located at that area. A clear degree of stenosis was not identified. 3. The PTFE AV graft loop itself was widely patent without aneurysm, stenosis, or other abnormality at the cannulation areas. 4. The venous anastomosis as described above was to one of two paired left axillary veins, the less robust of the pair. Stenosis was identified at the venous anastomosis itself, estimated it about 70%. Balloon angioplasty with an 8 mm diameter balloon restored 0% residual patency. The outflow axillary vein joined the paired axillary vein as one before entering the chest wall, and the vein was widely patent thereafter. There was no evidence of central venous obstruction with widely patent left axillary, subclavian, and brachiocephalic veins. The superior vena cava was patent. The left internal jugular tunneled dialysis catheter was seen entering the chest, and there was no evidence of stenosis in the brachiocephalic vein with superior vena cava around this catheter. 5. Though the patient was asymptomatic with relative hypotension, improved blood pressure may be necessary for keeping an AV graft patent, both during dialysis and during intradialytic times. Joselyn Foreman MD EST TT: 01/05/2020 02:10 AM EST DICTATION NUMBER: [id number] [facility] JOB NUMBER: [id number] CC: ROHIT EPPERSON DO Electronic Signatures: Mayar Elizondo (UNIT SECT) (On behalf of Joselyn Foreman) on 07-Jan-2020 11:16) Joselyn Foreman) (Signed on 14-Jan-2020 16:49) Authored Unsigned, Draft (SYS GENERATED) (Entered on 05-Jan-2020 02:10) Entered Last Updated: 14-Jan-2020 16:49 by Joselyn Foreman) [facility] Established Visit (Nephrolog y)on 01-02-2020 Established Visit (Nephrology) Chief Complaint Verbal consent was requested and obtained from CATE FOX on this date, 01/02/2020 02:30 PM , for a telehealth visit. Annual follow up while on kidney transplant candidate list. History of Present Illness Pre-Transplant Evaluation and Listing Review Visit Details: Review of kidney transplant listing status . Referring Provider: Dr. Krzysztof Wu (tel: [phone]; ). Ethnicity: White: Not Specified/Unknown. Primary Cause of Organ Disease: Polycystic Kidneys. Dialysis History: Hemodialysis, dialysis start date: 12/2015, MWF, peritoneal dialysis since: 07/05/2011-2016, terminated due to peritonitis. Listing Information: listing date: 12/28/2011. Hospitalizations/ED Visits: No recent hospitalizations or ED visits. Transfusion History: Blood Type: O positive. History: Yes Ms. CATE FOX is a 59 year old female with a history of end stage renal disease secondary to polycystic kidney disease. She began peritoneal dialysis on 07/05/2011 but was transitioned to hemodialysis in 2015. She was listed on 12/28/2011 and is currently active. Today, she denies shortness of breath, fever. She is undergoing a fistulagram for AV fistula. She continues home hemodialysis with Dr. Vital. Patient has past medical history of recurrent deep vein thromboses, polycystic kidney disease, and gout. Patient has a surgical history of bilateral nephrectomy, cholecystectomy, and . Patient has a family history of polycystic kidney disease. Father of a ruptured cerebral aneurysm. One brother and sister have polycystic kidney disease and colon cancer (grandmother). The patient is doing well without complaints. Denies chest pain, SOB, palpitations, dyspnea on exertion, swelling, dysuria, fever, nausea, vomiting, diarrhea, and flu-like symptoms. Review of Systems Constitutional: no fever and no chills. Eyes: no diplopia. ENT: no hearing loss, no swollen glands in the neck and no nasal discharge. Cardiovascular: no chest pain and no palpitations. Respiratory: no shortness of breath and no chronic cough. Gastrointestinal: no abdominal pain, no heartburn, no vomiting and no change in bowel movements. Genitourinary: no dysuria. Musculoskeletal: no arthralgias and no myalgias. Skin: no skin lesions. Neurological: no headaches and no dizziness. Psychiatric: no confusion. Endocrine: appetite not increased, no thyroid disorder and no increased urinary frequency. Hematologic/Lymphatic: does not bleed easily and does not bruise easily. Active Problems Complication of arteriovenous dialysis fistula (586.73) (T82.9XXA) End stage renal disease (585.6) (N18.6) Added by Problem List Migration; 2013-01-29; Moved to [facility] May 04 2013 9:14PM ESRD on hemodialysis (585.6,V45.11) (N18.6,Z99.2) Polycystic kidney disease (753.12) (Q61.3) Pre-transplant evaluation for ESRD (end stage renal disease) (V72.83) (Z01.818) Pre-transplant evaluation for kidney transplant (V72.83) (Z01.818) Past Medical History History of Polycystic kidney disease (753.12) (Q61.3) Surgical History History of section Children ages 26 and 28. History of Cholecystectomy laparoscopic History of Nephrectomy bilateral Family History Family history of Family history of cerebral aneurysm (V17.1) (Z82.49) Family history of polycystic kidney disease (V18.61) (Z82.71) Family history of Polycystic kidney disease Family history of coronary artery disease (V17.3) (Z82.49) Family history of malignant neoplasm (V16.9) (Z80.9) Social History Activities of daily living (ADL's), independent Full-time employment Never smoker No alcohol use Allergies codeine Nausea; Vomiting; Recorded By: Lizbeth Murphy; 03/22/2016 3:44:32 PM Penicillins Recorded By: Christel Adamson; 07/21/2015 12:35:57 PM Current Meds Allopurinol 100 MG Oral Tablet; TAKE 1 TABLET Take 1 tablet 3x/week; Therapy: [id number] to (Evaluate:14Aug2015) Recorded Dispense: 28 Days ; #: Sufficient Tablet; Refill: 0; SHARYN = N; Record; Last Updated By: Lizbeth Murphy; 05/17/2016 3:52:18 PM Calcitriol 0.5 MCG Oral Capsule; Therapy: (Recorded:[id number]) to Recorded Dispense: 0 Days ; #: Sufficient Capsule; Refill: 0; SHARYN = N; Record; Last Updated By: Alyce Pugh; 11/01/2019 4:36:43 PM DocQLace 100 MG CAPS; TAKE ONE CAPSULE BY MOUTH TWO TIMES DAILY NEEDED; Therapy: 14Jan2016 to Recorded Rx By: Karen; Dispense: 30 Days ; #:60; Refill: 0; SHARYN = N; Record; Last Updated By: Yeny Zhu; 01/26/2016 1:17:33 PM Eliquis 5 MG Oral Tablet; TAKE 1 TABLET BY MOUTH TWICE DAILY; Therapy: (Recorded:[id number]) to Recorded Dispense: 30 Days ; #:1 X 60 Tablet Bottle; Refill: 0; SHARYN = N; Record; Last Updated By: Alyce Pugh; 09/27/2019 12:37:35 PM Midodrine HCl - 10 MG Oral Tablet; Take as directed; Therapy: (Recorded:[id number]) to Recorded Dispense: 0 Days ; #: Sufficient Tablet; Refill: 0; SHARYN = N; Record; Last Updated By: Alyce Pugh; 09/27/2019 11:40:36 AM Ondansetron 4 MG Oral Tablet Disintegrating; allow ONE tablet TO dissolve in MOUTH EVERY 4 HOURS NEEDED FOR naus; Therapy: 25Mar2016 to Recorded Rx By: Thang; Dispense: 4 Days ; #:20; Refill: 0; SHARYN = N; Record; Last Updated By: Lizbeth Murphy; 06/28/2016 3:14:25 PM oxyCODONE HCl - 5 MG Oral Tablet; TAKE 1 TO 2 TABLETS EVERY 4 TO 6 HOURS NEEDED FOR PAIN; Therapy: 22Mar2016 to Recorded Dispense: 0 Days ; #: Sufficient Tablet; Refill: 0; SHARYN = N; Record; Last Updated By: Lizbeth Murphy; 03/22/2016 3:47:38 PM ProAir HFA 108 (90 Base) MCG/ACT Inhalation Aerosol Solution; INHALE 1 TO 2 PUFFS EVERY 4 TO 6 HOURS NEEDED; Therapy: 26Apr2014 to Recorded Dispense: 0 Days ; #:1 X 8.5 GM Inhaler; Refill: 5; SHARYN = N; Record; Last Updated By: Lizbeth Murphy; 09/27/2016 2:58:15 PM Renal 1 MG Oral Capsule; TAKE 1 CAPSULE Daily; Therapy: 24Jun2015 to (Evaluate:[id number]) Recorded Dispense: 30 Days ; #:30 Capsule; Refill: 0; SHARYN = N; Record; Last Updated By: Lizbeth Murphy; 09/27/2016 2:58:15 PM Renvela 800 MG Oral Tablet; take 3 with each meal and 1 with snacks; Therapy: (Recorded:27Sep2019) to Recorded Dispense: 0 Days ; #: Sufficient Tablet; Refill: 0; SHARYN = N; Record; Last Updated By: Keaton Alyce; 09/27/2019 11:39:41 AM Physical Exam No physical exam today due to virtual visit. Diagnoses/Problems Pre-transplant evaluation for kidney transplant (V72.83) (Z01.818) Patient Discussion/Summary Annual Review of Kidney Transplant Listing For CATE FOX. HEALTH SCREENING NEEDED: Colonoscopy - Up to date Females: Mammography - Up to date Pap Smear - Up to date IMAGING NEEDED: Age-based protocol imaging needed for transplant evaluation: Standard imaging: Chest X-ray PA lateral - up to date Cross sectional imaging: CT scan abdomen/pelvis to evaluate Aortoiliac vascular disease - up to date Kidney Ultrasound to evaluate for potential renal cell carcinoma - up to date MRI Brain to evaluate for cerebrovascular aneurysm - up to date Cardiovascular imaging: Complete ECHO - up to date Cardiac stress testing - up to date CT calcium scoring - up to date OTHER: Continue active listing, has been getting some offers. Follow up annually. By signing my name below, I, Ny Quezada and Alisa OrdazScribe, attest that this documentation has been prepared under the direction and in the presence of Dr. Yana Torres. All medical record entries made by the Scribe were at my direction and personally dictated by me. I have reviewed the chart and agree that the record accurately reflects my personal performance of the history, physical exam, discussion and plan. Time Time Stamp_[facility]: Time Spent With Patient:1 15 minutes of which greater than 50 percent was spent counseling and or coordinating care.1 . 1 Amended By: Yana Torres; May 03 2020 10:15 PM ESTSignatures Electronically signed by : Yana Torres MD; May 03 2020 10:15PM EST (Author) [facility] Transplant SW Assessment Upd ateon 01-02-2020 Transplant SW Assessment Update Note Body SW completed psychosocial assessment via phone due to COVID19 restrictions. The pt is on the phone by herself. The pt denies recent inpatient hospitalizations. The pt states since the beginning of the 2019 she has received a total of three potential offers. The pt does report she turned down one offer in the past due to limited information about the donor. The pt continues to do home hemodialysis four days a week. The pt reports she is compliant with dialysis and states ?I have never missed a treatment?. The pt reports she has been on home hemodialysis for eight years. The pt reports she is compliant with medications and manages them on her own. The pt states her spouse, two children, and other family members will be support. The pt states her spouse will be her primary support. The pt states her mood has been ?like everyone else?s?. The pt states there are days when she gets discouraged because of the pandemic. The pt reports she talks with her family and prays to get through it. The pt denies alcohol, tobacco, or illicit drug use. The pt is a low psychosocial risk PLAN: SW to see annually. Signatures Electronically signed by : SARY Scanlon; Jan 02 2020 5:25PM EST (Author) [facility] Otheron 12-24-2019 COMMENT [facility] Work Phone: Comment on above: SEE SEPARATE REPORT. Otheron 11-19-2019 COMMENT [facility] Work Phone: Comment on above: SEE SEPARATE REPORT. History and Physical - Surgi javier Update < 30 dayson 10-19-2019 History and Physical - Surgical Update < 30 days History & Physical Reviewed: /Lactating: Are You no (1) Are You Currently Breastfeedingno (1) I have reviewed the History and Physical dated: 12-Oct-2019 History and Physical reviewed and relevant findings noted. Patient examined to review pertinent physical findings.: No significant changes Home Medications Reviewed: no changes noted Allergies Reviewed: no changes noted This patient has been seen and discussed with the attending physician responsible for performing the procedure: yes Signatures/Attestation/Certi fication: Note Completion: I am a: Resident/Fellow Attending AttestationI saw and evaluated the patient. I personally obtained the sterling and critical portions of the history and physical exam or was physically present for sterling and critical portions performed by the resident/fellow. I reviewed the resident/fellows documentation and discussed the patient with the resident/fellow. I agree with the resident/fellows medical decision making as documented in the note. I personally evaluated the patient [id number] Attending Provider Inpatient Certification StatementObservation patient/other outpatient visits Electronic Signatures: Edd Swan (Resident)) (Signed 19-Oct-2019 06:57) Authored: History & Physical Reviewed, Signatures/Attestation/Certi fication Joselyn Foreman) (Signed 19-Oct-2019 07:07) Authored: History & Physical Reviewed, Signatures/Attestation/Certi fication Co-Signer: History & Physical Reviewed, Signatures/Attestation/Certi fication Last Updated: 19-Oct-2019 07:07 by Joselyn Foreman) References: 1. Data Referenced From Patient Profile - Preop v2 19-Oct-2019 06:38 [facility] Operative Reports - [place] on 10-19-2019 Operative Reports - [facility]ly [facility] [id number] [id number] Patient Name: KAREN. Kyle FOX : 1960 Date of Service: 10/19/2019 Patient Location: AOR AOR0 [id number] Patient Type: O Surgeon: Joselyn Foreman MD Report Type: Operative Reports PREOPERATIVE DIAGNOSIS: End-stage renal disease. POSTOPERATIVE DIAGNOSIS: End-stage renal disease. PROCEDURE PERFORMED: Left brachioaxillary arteriovenous graft. SURGEON: Joselyn Foreman MD SHOT LIGHTER SURGEON: Edd Swan MD ANESTHESIA: General endotracheal. ESTIMATED BLOOD LOSS: 25 cc. CLINICAL NOTE: This 58-year-old woman with end-stage renal disease had previously been dialyzing via a transposed left brachiobasilic AV fistula for a few years. The fistula thrombosed earlier this year and could not be salvaged. She presents at this time for construction of a new access. Given the desire to return to the left arm, plan will be for construction of a brachioaxillary AV graft. DESCRIPTION OF PROCEDURE: The patient was placed on the operating table in supine position with left arm out. Following administration of general endotracheal anesthesia, the arm was interrogated with ultrasound. This demonstrated a prior brachiobasilic fistula in the left arm, transposed to a more anterior location. The fistula is thrombosed, with echogenic material visible in the lumen and no evidence of color flow. The location of the anastomosis of the AV fistula to the distal brachial artery was noted. Beyond this point, more distally toward the elbow, the brachial artery is patent and measures approximately 4 mm in diameter. Its location was marked out on the skin in ink. The basilic vein appears to course across the axillary fossa, entering the subclavian vein much higher in the chest. Therefore, the axillary vein was identified much deeper in the arm and its location marked on the arm in ink. The arm was prepped and draped. A longitudinal skin incision was made on the distal anterior left arm, just at the elbow crease. Cautery was used to develop the incision through the subcutaneous tissue and the brachial artery was identified and skeletonized. It was vessel looped for control. A second longitudinal incision was made in the axilla, then developed with cautery. The basilic vein, still patent at this level, appeared quite plump, however, we hesitated to use this as outflow, as its termination into the subclavian vein and therefore its patency could not be assessed by ultrasound. Instead, dissection continued deeper to the axillary vein, adjacent to the axillary artery, where the vein was found to be 6 mm in diameter by ultrasound and patent. The vein was vessel looped for control. A subcutaneous tunnel was created laterally on the left arm between the 2 incisions using a tunneling device. A piece of 4 to 7 mm tapered diameter [place] Propaten PTFE graft was passed through the tunnel. Beginning on the arterial end, vessel loops were pulled up to occluding tension on the brachial artery, which was opened longitudinally. Heparin saline was flushed toward the hands. End-to-side anastomosis was constructed between the 4 mm end of the PTFE and the brachial artery with running 6-0 Prolene suture. The suture line was completed, and the graft was clamped. The vessel loops were released, allowing flow through the artery to the hand. Vessel loops were pulled up to occluding tension on the axillary vein, which was opened longitudinally. The 7 mm end of the PTFE was trimmed and spatulated. End-to-side anastomosis was constructed to the axillary vein with running 6-0 Prolene suture. The suture line was completed and all vessel loops and clamps were released allowing flow through the graft. Each incision was irrigated with antibiotic saline and infiltrated with local anesthetic for comfort. Hemostasis was achieved at the suture lines with thrombin Gelfoam and within the remainder of the incisions with cautery. Subcutaneous tissue was closed securely over each anastomosis with interrupted 3-0 Vicryl. Additional subcutaneous tissue was closed with 3-0 Vicryl. Each skin incision was closed with 4-0 Maxon in subcuticular fashion. Steri-Strips and dry dressings were applied. The patient was awakened and extubated in the operating room. She was taken to Recovery awake and in stable condition having tolerated the procedure well. This patient has a history of chronic hypotension, with systolic blood pressures running routinely in the 80 to 90 mmHg range. Given her hypotension, a faint thrill is palpable over the AV graft, though a bruit is readily apparent. Further, the radial and ulnar Doppler signals are audible at the left wrist. Joselyn Foreman MD EST TT: 10/20/2019 00:08 AM EST DICTATION NUMBER: [id number] [facility] JOB NUMBER: [id number] CC: Krzysztof Bowman MD, Electronic Signatures: Unsigned, Draft (SYS GENERATED) (Entered on 20-Oct-2019 00:08) Entered Joselyn Foreman) (Signed on 26-Oct-2019 09:59) Authored Last Updated: 26-Oct-2019 09:59 by Joselyn Foreman) [facility] Patient Profile - Preop v2on 10-19-2019 Patient Profile - Preop v2 Profile: Initial Info: How to be AddressedKaren(1) Spoken Language PreferredEnglish (1) Stated Reason for Admissiongraft in my left arm Primary Contact Name and NumberEmery [phone] Patient Belongingsasu Medications Brought to Hospitalno Are you currently using the Personal Electronic Health Record or PxRadia (1) General Health: Blood Avoidance/Restrictionsnone Weight in kg67.2 kilogram(s) Previous Transfusion Reactionno Weight in ahk364.1 pound(s) Weight Methodactual (measured) Scale Typestanding Height in cm152.4 centimeter(s) Height in feet5 feet Height in inches0 inch(es) Height Methodstated BMI (kg/m2)28.933 square meter Patient or Family Member Reaction to Anesthesiano previous reaction; no previous family member reaction Health Mgmt: Barriers to Managing Healthnone Are You Currently Breastfeedingno Symptoms/Conditions Managed at [facility] Are You no Relationship/Environ: Resource/Environmental Concernsnone Substance: Current or Former Substance Use never: Cigarette/Tobacco(1), e-Cigarette/Vaping(1), Alcohol(1), Street Drugs Risk Screens: COVID-19 Screening Completedno exposure or symptoms Advance Directive/DNRyes Advance Directive typeDurable Power of Diabetes Nurse for Healthcare Durable Power of Diabetes Nurse AvailabilityDPOA not available now Advance Directive Mental Healthnot applicable During the past month, have you often been bothered by feeling down, depressed or hopelessno During the past month, have you often had little interest or pleasure in doing thingsno Have you had any thoughts of harming yourselfno Have you had any thoughts of harming anyone elseno Are you or have you been threatened or abused physically,emotionally or sexually abused by anyoneno Do you feel UNSAFE going back to the place you are livingno Patient is Able to be Assessed for Learningyes Factors Influencing Readiness to Learninterest in learning Factors that Impact Ability to Learnnone Devices/Methods Used to Communicateglasses Learning Preferencesaudio; verbal instruction Cultural Considerationsnone Developmental Considerationsnone Religion Considerationsnone Other learner availableno [place] RiskPatient location auto qualifies him/her for HIGH RISK. Are there any cultural, spiritual, sabianism practices/values/needs that are important for us to knowno Pain Scalenumerical 0-10 Pain Scale Educationteaching provided Current Pain Level0 = None Acceptable Pain Level6 = Moderate Chronic Painno Information Review: Allergies, Home Meds and Significant Events have been Reviewed and Verified with Patient/Familyyes Allergy, Intolerance, Adverse Event: Allergies: ciprofloxacin: Drug, Hives/Urticaria, Active penicillin: Drug, Unknown, Active Intolerances: codeine: Drug, Nausea/Vomiting, Active Electronic Signatures: Adriano Haines (KIARA) (Signed 19-Oct-2019 06:47) Authored: Profile, Additional Information Last Updated: 19-Oct-2019 06:47 by Adriano Haines (KIARA) References: 1. Data Referenced From Patient Profile - Adult v2 06-Sep-2019 09:48 Normal [facility] Preop Checkliston 10-19-2019 Preop Checklist Preop Checklist: Preop Checklist: Arrival [id number] Arrival Time06:25 Procedure TypeLUE AVG NPO [id number] 18:00 ID Band Onyes Allergy Bandyes Consent Signedpending H&P Completepending Anesthesia Assessment Completedpending EKG Performednot ordered Chest X-Ray Performednot ordered HCG Urine TestN/A waiver signed Chlorhexadine Bath Givennot applicable Nasal Antiseptic Appliednot applicable Hair Washednot applicable Soap and water bath with hair shampoo the night before surgerynot applicable Hat placed on prior to transportnot applicable SCD's Appliedyes GRIFFIN Hose Appliednot ordered Denturesplaced in locker Prostheticsnot applicable Hearing Aidsnot applicable Valuables Securedplaced in locker Glasses / Contactsplaced in locker Bowel Prepno Cardiovascular Assessment: Apicalregular Radial Pulsespalpable Pedal Pulsespalpable Extremitieswarm Respiratory Assessment: Respirationsunlabored Air Exchangegood, equal Breath Soundsclear Neurological Assessment: Level of Consciousnessalert, oriented Mobilitymoves all extremities Able to Express Selfyes Age Appropriateyes Emotional Statuscalm Preop Education: Surgical Site Infection Preventionyes Pain Scales and Managementyes Language / Communication: Language / CommunicationEnglish Electronic Signatures: Adriano Haines (RN) (Signed 19-Oct-2019 06:48) Authored: Preop Checklist Last Updated: 19-Oct-2019 06:48 by Adriano Haines (RN) Normal [facility] BASIC METABOLIC PANELon 05-0 -2019 Anion gap [Moles/Vol] 16 mmol/L Normal 10 - 20 [facility] Comment on above: Performed By: #### B MP ####[id number] [place], [place] [phone] Calcium [Mass/Vol] 10.1 mg/dL Normal 8.6 - 10.3 [facility] Comment on above: Performed By: #### B MP ####[facility] [place], [place] [phone] Chloride [Moles/Vol] 98 mmol/L Normal 98 - 107 [facility] Comment on above: Performed By: #### B MP ####[facility] [place], [place] [phone] Creatinine [Mass/Vol] 9.45 mg/dL High 0.50 - 1.05 [facility] Comment on above: Performed By: #### B MP ####[facility] [facility] [place], [place] [phone] GFR- AM. 5 mL/min/1.73m2 >60 [facility] Comment on above: Result Comment: CALC ULATIONS OF ESTIMATED GFR ARE PERFORMED USING THE MDRD STUDY EQUATION FOR THE IDMS-TRACEABLE CREATININE METHODS. CLIN CHEM 2007;53:766-72 Performed By: #### B MP ####[facility] [facility] [place], [place] [phone] GFR-NON AM. 4 mL/min/1.73m2 >60 [facility] Comment on above: Performed By: #### B MP ####[id number] [facility] [place], [place] [phone] Glucose [Mass/Vol] 96 mg/dL Normal 74 - 99 [facility] Comment on above: Performed By: #### B MP ####[facility] [facility] [place], [place] [phone] HCO3 (Bld) [Moles/Vol] 25 mmol/L Normal 21 - 32 [facility] Comment on above: Performed By: #### B MP ####[facility] [facility] [place], [place] [phone] Potassium [Moles/Vol] 5.7 mmol/L High 3.5 - 5.3 [facility] Comment on above: Performed By: #### B MP ####[facility] [facility] [place], [place] [phone] Sodium [Moles/Vol] 133 mmol/L Low 136 - 145 [facility] Comment on above: Performed By: #### B MP ####[facility] [facility] [place], [place] [phone] Urea nitrogen [Mass/Vol] 45 mg/dL High 6 - 23 [facility] Comment on above: Performed By: #### B MP ####[facility] [facility] [place], [place] [phone] CBCon 10-12-2019 Erythrocyte distribution width (RBC) [Ratio] 15.9 % High 11.5 - 14.5 [facility] Comment on above: Performed By: #### C BC #### [facility] [address] [facility] [place] [phone] Hematocrit (Bld) [Volume fraction] 34.0 % Low 36.0 - 46.0 [facility] Comment on above: Performed By: #### C BC #### [facility] [address] [facility] [place] [phone] Hemoglobin (Bld) [Mass/Vol] 11.0 g/dL Low 12.0 - 16.0 [facility] Comment on above: Performed By: #### C BC #### [facility] [address] [facility] [place] [phone] MCHC (RBC) [Mass/Vol] 32.4 g/dL Normal 32.0 - 36.0 [facility] Comment on above: Performed By: #### C BC #### [facility] [address] [facility] [place] [phone] MCV (RBC) [Entitic vol] 95 fL Normal 80 - 100 [facility] Comment on above: Performed By: #### C BC #### [facility] [address] [facility] [place] [place] [phone] Platelets (Bld) [#/Vol] 359 10*3/uL Normal 150 - 450 [facility] Comment on above: Performed By: #### C BC #### [facility] [address] [facility] [place] [phone] RBC (Bld) [#/Vol] 3.57 x10E12/L Low 4.00 - 5.20 [facility] Comment on above: Performed By: #### C BC #### [facility] [address] [facility] [place] [phone] WBC (Bld) [#/Vol] 11.5 10*3/uL High 4.4 - 11.3 [facility] Comment on above: Performed By: #### C BC #### [facility] [address] [facility], [place] [phone] COAGULATION SCREENon 020 aPTT Coag (Bld) [Time] 32 s Normal 28 - 38 [facility] Comment on above: Result Comment: THE APTT IS NO LONGER USED FOR MONITORING UNFRACTIONATED HEPARIN THERAPY. FOR MONITORING HEPARIN THERAPY, USE THE HEPARIN ASSAY. Performed By: #### C OAGS ####[facility] [facility], [place] [phone] INR Coag (PPP) [Relative time] 1.5 {INR} High 0.9 - 1.1 [facility] Comment on above: Performed By: #### C OAGS ####[facility] [facility], [place] [phone] PT Coag (PPP) [Time] 16.7 s High 9.7 - 12.7 [facility] Comment on above: Performed By: #### C OAGS ####[facility] [facility], [place] [phone] History and Physicalon 10-11 History and Physical History of Present Illness: /Lactating: Are You no Are You Currently Breastfeedingno Admission Reason: ESRD for LUE AVG HPI: CATE FOX is a 58 year old Female with ESRD secondary to PKD. Patient was on PD [id number] which was discontinued secondary to infection. She had LUE AVF created which worked until end August when it clotted. Patient is doing home HD 4days / week presently using LIJ dialysis catheter. Comorbidities: Comorbid Conditionschronic kidney disease Chronic Kidney Diseaserequiring dialysis CKD StageEnd of stage renal disease Past Medical/Surgical History: Medical History: ESRD on dialysis: Hypotension, chronic: Anemia associated with chronic renal failure: History of diverticulosis: Description: asymptomatic Multiple environmental allergies: Gout: Deep vein thrombosis (DVT): Description: 2011 Polycystic kidney disease: Surg History: Surgically constructed arteriovenous fistula: Description: AVF 04/2016 with transposition 08/2016 S/p nephrectomy: Description: open bilateral 01/2016 History of laparoscopic cholecystectomy: H/O: : Description: x 2 Family History: Family History: father PKD brother and sister with PKD Social History: Social History: Smoking Statusnever smoker Alcohol Usedenies Drug Usedenies Occupationdisability Social History Allergies: ciprofloxacin: Hives/Urticaria penicillin: Unknown Intolerances: codeine: Nausea/Vomiting Medications Prior to Admission: OMR completed / reviewed. Review of Systems: Eyes: COMMENTS: glasses ENMT: COMMENTS: upper dentures lower partial Cardiac: COMMENTS: chronic hypotension ; Echo 12/2018 EF 50-55% Stress test 11/2018 normal ; METS 4-5 Gastrointestinal: COMMENTS: diverticulosis - asymptomatic Genitourinary: COMMENTS: ESRD - see HPI Musculoskeletal: COMMENTS: gout - under control with daily Allopurinol Hematologic/Lymph: COMMENTS: hx DVT 2011 Allergic/Immunologic: COMMENTS: seasonal / environmental allergies All Other Systems: All other systems reviewed and are negative Objective: Objective Information: HT 5 ' WT 148# 67kg T 98.4F temporal thermometer BP 92/52 (office visit Dr Foreman 09/26 84/60) P 75 Pulse ox 96% denies problems with anesthesia in the past Physical Exam: Constitutional: Alert orientated x 3 no acute distress pleasant and cooperative Eyes: PERRL ENMT: pharynx clear no erythema or exudate noted Head/Neck: normocephalic neck supple nontender trachea midline no palpable lymphadenopathy noted no carotid bruits noted Respiratory/Thorax: CTA without wheezes rales rhonchi heard respiratory rate regular and unlabored Cardiovascular: RR without murmur heard at this time LIJ dialysis catheter in place Gastrointestinal: soft nontender no definitive masses noted Genitourinary: defer Musculoskeletal: no gross deformities moves all extremities without difficulty Extremities: no pedal edema noted DP pulses palpable Neurological: cranial nerves grossly intact Breast: defer Lymphatic: No significant lymphadenopathy Psychological: Appropriate mood and behavior Skin: warm and dry, good color, good turgor and texture Assessment and Plan: Problem List: Medical History: ESRD on dialysis: Hypotension, chronic: Anemia associated with chronic renal failure: History of diverticulosis: Description: asymptomatic Multiple environmental allergies: Gout: Deep vein thrombosis (DVT): Description: 2011 Polycystic kidney disease: Impression 1: ESRD Plan for Impression 1: LUE AVG Plan for Impression 2: records reviewed including any recent labs +/or EKG patient evaluated through PAT and record sent to anesthesia preoperative instructions reviewed and given to patient post op pain control sheet reviewed and given to patient labs ordered EKG done 11/2018 Signatures/Attestation/Certi fication: Note Completion: PETER StatementI am solely responsible for all documentation captured within this clinical document, including critical care time, if applicable. The attending physician signature below is only for admission certification purposes. Attending Provider Inpatient Certification StatementObservation patient/other outpatient visits Electronic Signatures: Lana Sherwood (ABBE) (Signed 12-Oct-2019 09:38) Authored: History of Present Illness, Comorbidities, Past Medical/Surgical History, Family History, Social History, Allergies, Medications Prior to Admission, Review of Systems, Objective, Assessment and Plan, Signatures/Attestation/Certi fication Joselyn Foreman) (Signed 19-Oct-2019 07:06) Authored: Signatures/Attestation/Certi fication Co-Signer: History of Present Illness, Comorbidities, Past Medical/Surgical History, Family History, Social History, Allergies, Medications Prior to Admission, Review of Systems, Objective, Assessment and Plan, Signatures/Attestation/Certi fication Last Updated: 19-Oct-2019 07:06 by Joselyn Foreman) [facility] VASC LAB Pre-op Vessel Vein Mappingon 09-27-2019 VAS LAB Pre-op Vessel Vein Mapping [place] [id number] and Vascular Lab Report Pre-op Vein Mapping Upper Upper Arterial Duplex Ultrasound Patient Name: CATE Falcon Physician: [id number] Naheed Carr MD Study Date: 09/27/2019 Referring [id number] Joselyn Foreman MD Physician: MRN/PID: [id number] PCP: Accession/Order#: [id number] CC Report to: Date of : 1960 Technologist: Maris Russell RVT Gender: F Technologist 2: Admission Status: Outpatient Location Performed: [facility] Diagnosis/ICD: Z01.818-Encounter for other preprocedural examination; N18.6-End stage renal disease (ESRD) Procedure/CPT: 91570 Duplex arterial inflow and venous outflow, preop assessment prior to creating dialysis access, comp bilateral study-[id number] Patient History Left brachiobasilic AVF (2016), Right radial artery occlusion (2016), Left IJV catheter. CONCLUSIONS: Right Upper Arterial: The limited study of the right brachial artery and radial artery are patent. Triphasic waveforms are visualized at the right distal brachial artery and biphasic waveforms at the distal radial artery. Color flow is visualized throughout the radial artery from proximal forearm to wrist. Left Upper Arterial: The left brachial artery and radial artery were not evaluated per order. Right Upper Venous: No evidence of acute deep vein thrombus visualized in the right upper extremity. Left Upper Venous: No evidence of acute deep vein thrombus visualized in the left upper extremity. An known occluded left brachiobasilic AVF is visualized in the left arm. Left Upper Vein Mapping: Left upper extremity vein: The cepahlic vein appears to be patent with no evidence of acute thrombus. The left basilic vein in the forearm was not visualized. Right Upper Vein Mapping: Right upper extremity vein: The right cephalic vein at proximal forearm has chronic thrombus. The right cephalic vein from mid to distal forearm appears to be fibrotic. The right basilic vein and cephalic vein in arm are patent with no evidence of acute thrombus. Additional Findings: Imaging & Doppler Findings: Right Compress Thrombus Diam Cephalic Prox Arm Yes None 2.0 mm Cephalic Mid Arm Yes None 1.0 mm Cephalic Distal Arm Yes None 3.3 mm Cephalic Prox Forearm Fibrotic Cephalic Mid Forearm Fibrotic Cephalic Distal Forearm Fibrotic Basilic Prox Arm Yes None 1.7 mm Basilic Mid Arm Yes None 1.7 mm Basilic Distal Arm Yes None 1.3 mm Basilic Prox Forearm Yes None 0.9 mm Basilic Mid Forearm Yes None 1.4 mm Basilic Distal Forearm Yes None 1.1 mm Left Compress Thrombus Diam Cephalic Prox Arm Yes None 2.0 mm Cephalic Mid Arm Yes None 1.0 mm Cephalic Distal Arm Yes None 2.4 mm Cephalic Prox Forearm Yes None 1.3 mm Cephalic Mid Forearm Yes None 1.6 mm Cephalic Distal Forearm Yes None 1.2 mm Right Compressible Thrombus Flow Internal Jugular Yes None Pulsatile Subclavian Yes None Spontaneous/Phasic Subclavian Proximal Yes None Subclavian Mid Yes None Subclavian Distal Yes None Axillary Yes None Spontaneous/Phasic Brachial Yes None Left Compress Thrombus Flow Internal Jugular Yes None Spontaneous/Phasic Subclavian Yes None Spontaneous/Phasic Subclavian Proximal Yes None Subclavian Mid Yes None Subclavian Distal Yes None Axillary Yes None Spontaneous/Phasic Brachial Yes None Right PSV Waveform 42 cm/s Triphasic Brachial Distal 24 cm/s Biphasic Radial Right Brachial Diam P 3.3 mm Brachial Diam M 3.2 mm Brachial Diam D 3.5 mm Radial Diam P 1.5 mm Radial Diam M 1.1 mm Radial Diam D 0.9 mm [id number] Naheed Carr MD Final Normal [facility] Otheron 09-07-2019 COMMENT [facility] Work Phone: Comment on above: SEE SEPARATE REPORT. Complete Blood Count + Diffe rentialon 09-06-2019 Basophils/100 WBC (Bld) 1.4 % 0.0 - 2.0 [facility] Work Phone: Eosinophils (Bld) [#/Vol] 0.15 {x10E9/L} See Below [facility] Work Phone: Comment on above: Reference Range: 0.0 0 - 0.70 Eosinophils/100 WBC (Bld) 1.6 % 0.0 - 6.0 [facility] Work Phone: Erythrocyte distribution width (RBC) [Ratio] 15.8 % above high threshold See Below [facility] Work Phone: Comment on above: Reference Range: 11. 5 - 14.5 Hematocrit (Bld) [Volume fraction] 40.6 % See Below [facility] Work Phone: Comment on above: Reference Range: 36. 0 - 46.0 Hemoglobin (Bld) [Mass/Vol] 13.1 g/dL See Below [facility] Work Phone: Comment on above: Reference Range: 12. 0 - 16.0 Lymphocytes (Bld) [#/Vol] 1.50 {x10E9/L} See Below [facility] Work Phone: Comment on above: Reference Range: 1.2 0 - 4.80 Lymphocytes/100 WBC (Bld) 16.5 % See Below [facility] Work Phone: Comment on above: Reference Range: 13. 0 - 44.0 MCHC (RBC) [Mass/Vol] 32.3 g/dL See Below [facility] Work Phone: Comment on above: Reference Range: 32. 0 - 36.0 MCV (RBC) [Entitic vol] 102 fL above high threshold 80 - 100 [facility] Work Phone: Monocytes (Bld) [#/Vol] 0.77 {x10E9/L} See Below [facility] Work Phone: Comment on above: Reference Range: 0.1 0 - 1.00 Monocytes/100 WBC (Bld) 8.5 % 2.0 - 10.0 [facility] Work Phone: Neutrophils (Bld) [#/Vol] 6.53 {x10E9/L} See Below [facility] Work Phone: Comment on above: Reference Range: 1.2 0 - 7.70 Neutrophils/100 WBC (Bld) 71.7 % See Below [facility] Work Phone: Comment on above: Reference Range: 40. 0 - 80.0 Platelets (Bld) [#/Vol] 424 {x10E9/L} 150 - 450 [facility] Work Phone: RBC (Bld) [#/Vol] 4.00 {x10E12/L} See Below [facility] Work Phone: Comment on above: Reference Range: 4.0 0 - 5.20 WBC (Bld) [#/Vol] 0.0 {/100_WBC} 0.0-0.0 [facility] Work Phone: WBC (Bld) [#/Vol] 9.1 {x10E9/L} 4.4 - 11.3 [facility] Work Phone: Complete Blood Count + Differential 0.3 % 0.0 - 0.9 [facility] Work Phone: Comment on above: Immature Granulocyte Count (IG) includes promyelocytes, myelocytes and metamyelocytes but does not include bands. Percent differential counts (%) should be interpreted in the context of the absolute cell counts (cells/L). Complete Blood Count + Differential 0.13 {x10E9/L} above high threshold See Below [facility] Work Phone: Comment on above: Reference Range: 0.0 0 - 0.10 Coronavirus 2019 by PCRon Coronavirus 2019 by PCR NOT DETECTED See Below [facility] Work Phone: Comment on above: SOURCE: Nasal, Nasop haryngealReference Range: Not DetectedThis assay is designed to detect the ORF1ab and/or S genes of SARS-CoV-2 via nucleic acid amplification. A Not Detected result does not preclude 2019-nCoV infection since the adequacy of sample collection and/or low viral burden may result in presence of viral nucleic acids below the clinical sensitivity of this test method. Fact sheet for providers: www.fda.gov/media/204089/downloadFact sheet for patients: www.fda.gov/media/670658/downloadThis test has received FDA Emergency Use Authorization (EUA) and has been verified by [facility] ([facility]). This test is only authorized for the duration of time that circumstances exist to justify the authorization of the emergency use of in vitro diagnostic tests for the detection of SARS-CoV-2 virus and/or diagnosis of COVID-19 infection under section 564(b)(1) of the Act, 21 U.S.C. 360bbb-3(b)(1), unless the authorization is terminated or revoked sooner. [facility] is certified under CLIA-88 as qualified to perform high complexity testing. Testing is performed in the [facility] laboratories located at [address] [place] [address].(-)COVID CALLED RB TO [facility], 09/06/2019 16:07 (-)COVID CALLED RB T O [facility], 09/06/2019 16:07 SOURCE: Nasal, Nasop haryngealReference Range: Not Detected Respiratory virus testing is performed routinely by PCR for Influenza A/B and RSV. If Influenza and RSV PCR are negative, testing for parainfluenza 1,2,3 viruses and adenovirus is routinely performed for oncology inpatients and intensive care unit patients at [facility] and is available on request on other patients by calling Laboratory Client Services at [phone]. Not Detected results do not preclude Influenza A/B or RSV infections since the adequacy of sample collection or low viral burden may impact the clinical sensitivity of this test method. Reference Range: Not Detected Respiratory virus testing is performed routinely by PCR for Influenza A/B and RSV. If Influenza and RSV PCR are negative, testing for parainfluenza 1,2,3 viruses and adenovirus is routinely performed for oncology inpatients and intensive care unit patients at [facility] and is available on request on other patients by calling Laboratory Client Services at [phone] Not Detected results do not preclude Influenza A/B or RSV infections since the adequacy of sample collection or low viral burden may impact the clinical sensitivity of this test method. HIV Antigen/Antibody Screeno n 09-06-2019 HIV Antigen/Antibody Screen NONREACTIVE See Below [facility] Work Phone: Comment on above: SOURCE: Reference Ra nge: NONREACTIVE HIV Ag/Ab screen is performed using the Siemens [employer] HIV Ag/Ab Combo assay which detects the presence of HIV p24 antigen as well as antibodies to HIV-1 (Group M and O) and HIV-2. SOURCE: Reference Ra nge: NONREACTIVE Results from patients taking biotin supplements or receiving high-dose biotin therapy should be interpreted with caution due to possible interference with this test. Providers may contact their local laboratory for further information. SOURCE: Reference Ra nge: NONREACTIVE Hematologyon 09-06-2019 ABO group Nom (Bld) O [facility] Work Phone: aPTT Coag (PPP) [Time] 34 {sec} 28 - 38 [facility] Work Phone: Comment on above: THE APTT IS NO LONGE R USED FOR MONITORING UNFRACTIONATED HEPARIN THERAPY. FOR MONITORING HEPARIN THERAPY, USE THE HEPARIN ASSAY. Blood group antibody screen Ql Negative [facility] Work Phone: INR Coag (PPP) [Relative time] 1.4 {INR} above high threshold 0.9 - 1.1 [facility] Work Phone: PT Coag (PPP) [Time] 15.7 {sec} above high threshold 9.7 - 12.7 [facility] Work Phone: Rh immune globulin screen (Bld) [Interp] Positive [facility] Work Phone: Hepatic Function Panelon Albumin BCP dye [Mass/Vol] 4.3 g/dL 3.4 - 5.0 [facility] Work Phone: ALP [Catalytic activity/Vol] 113 U/L above high threshold 33 - 110 [facility] Work Phone: ALT With P-5'-P [Catalytic activity/Vol] 14 U/L 7 - 45 [facility] Work Phone: Comment on above: Patients treated wit h Sulfasalazine may generate falsely decreased results for ALT. AST With P-5'-P [Catalytic activity/Vol] 15 U/L 9 - 39 [facility] [facility] Work Phone: Bilirubin [Mass/Vol] 0.3 mg/dL 0.0 - 1.2 [facility]-Erlin [facility]mond [facility] Work Phone: Bilirubin.direct [Mass/Vol] 0.1 mg/dL 0.0 - 0.3 [facility] Work Phone: Protein [Mass/Vol] 7.0 g/dL 6.4 - 8.2 [facility] c[facility] Work Phone: Metabolic Panelon 09-06-2019 Anion gap [Moles/Vol] 17 mmol/L 10 - 20 [facility] Work Phone: Calcium [Mass/Vol] 10.4 mg/dL 8.6 - 10.6 [facility] Work Phone: Chloride [Moles/Vol] 98 mmol/L 98 - 107 [facility] Work Phone: CO2 [Moles/Vol] 31 mmol/L 21 - 32 [facility]cul ar Surgery-Erlin [facility] Work Phone: Creatinine [Mass/Vol] 5.45 mg/dL above high threshold See Below [facility] Work Phone: Comment on above: Reference Range: 0.5 0 - 1.05 Glucose [Mass/Vol] 86 mg/dL 74 - 99 [facility] Work Phone: Potassium [Moles/Vol] 6.0 mmol/L above high threshold 3.5 - 5.3 [facility] Work Phone: Sodium [Moles/Vol] 140 mmol/L 136 - 145 [facility] Work Phone: Urea nitrogen [Mass/Vol] 21 mg/dL 6 - 23 [facility] Work Phone: Otheron 09-06-2019 RSV RNA NORA+probe Ql (Unsp spec) NOT DETECTED See Below [facility] Work Phone: Comment on above: Reference Range: Not Detected Respiratory virus testing is performed routinely by PCR for Influenza A/B and RSV. If Influenza and RSV PCR are negative, testing for parainfluenza 1,2,3 viruses and adenovirus is routinely performed for oncology inpatients and intensive care unit patients at [facility] and is available on request on other patients by calling Laboratory Client Services at [phone]. Not Detected results do not preclude Influenza A/B or RSV infections since the adequacy of sample collection or low viral burden may impact the clinical sensitivity of this test method. 10 {mL/min/1.73m2} Abnormal >60 [facility] Work Phone: Comment on above: CALCULATIONS OF JAN MATED GFR ARE PERFORMED USING THE MDRD STUDY EQUATION FOR THE IDMS-TRACEABLE CREATININE METHODS. CLIN CHEM 2007;53:766-72 8 {mL/min/1.73m2} Abnormal >60 [facility] Surgery-[facility] Work Phone: ORDER RECD [facility] Work Phone: Activated PTTon 08-15-2019 aPTT Coag (Bld) [Time] 28.5 s Normal 23.0-32.4 [facility] Comment on above: Result Comment: Unfr actionated Heparin Therapeutic Ranges: Standard Heparin Nomogram: 53 to 78 seconds (anti-Xa level of 0.3 to 0.7 U/mL) Low Dose/ACS Nomogram: 49 to 67 seconds (anti-Xa level of 0.2 to 0.5 U/mL) Stroke Treatment Nomogram: 49 to 67 seconds (anti-Xa level of 0.2 to 0.5 U/mL) Note: The APTT therapeutic range has been determined for the current lot of laboratory APTT reagent in use throughout the [facility]. Performed By: #### A PTT #### [place] [address] Basic Panelon 08-15-2019 Creatinine [Mass/Vol] 16.30 mg/dL High 0.51-0.95 [facility] Comment on above: Result Comment: Use of this assay is not recommended for patients undergoing treatment with phenindione, due to the potential for falsely depressed results. Performed By: #### P 8 #### [facility] [address] [place], [place] [address] Glucose [Mass/Vol] 89 mg/dL Normal 70-99 [facility] Comment on above: Performed By: #### P 8 #### [facility] [address] [place], [place] [address] Anion gap [Moles/Vol] 17 mmol/L High 8-16 [facility] [place] Comment on above: Performed By: #### P 8 #### [facility] [address] [place], [place] [address] CO2 [Moles/Vol] 20 mmol/L Low 21-32 [facility] Comment on above: Performed By: #### P 8 #### [facility] [address] [place], [place] [address] Urea nitrogen [Mass/Vol] 69 mg/dL High 7-18 [facility] Comment on above: Performed By: #### P 8 #### [facility] [address] [place], [place] [address] Calcium [Mass/Vol] 8.5 mg/dL Normal 8.5-10.1 [facility] Comment on above: Performed By: #### P 8 #### [facility] [address] [place], [place] [address] Chloride [Moles/Vol] 106 mmol/L Normal 98-107 [facility] Comment on above: Performed By: #### P 8 #### [facility] [address] [place], [place] [address] Potassium [Moles/Vol] 6.0 mmol/L High 3.5-5.1 [facility] [place] Comment on above: Performed By: #### P 8 #### [facility] [address] [place], [place] [address] Sodium [Moles/Vol] 137 mmol/L Normal 136-145 [facility] Comment on above: Performed By: #### P 8 #### [facility] [address] [place], [place] [address] CASE MANAGEMon 08-15-2019 CASE MANAGEM HNO ID: [id number] Author: Sammi GeeRn) KIARA Rhodes Service: Care Management Author Type: Registered Nurse Type: Care Mgt Progress Note Filed: 08/15/2019 4:35 PM Note Text: CARE MANAGEMENT PROGRESS NOTE SERVICE DATE: 08/15/2019 SERVICE TIME: 4:18 PM LOS: 0 days Eliquis script tubed to outpatient pharmacy for bedside delivery. 1633: Call to Kwesi Sutherland pharmacist. She is to check tube system for script and call if any problems. SIGNATURE: Aletha Rhodes RN PATIENT NAME: Cate Fox DATE: August 15, 2019 TIME: 4:18 PM PAGER/CONTACT #: [phone] [facility] CASE MANAGEM HNO ID: [id number] Author: Sammi GeeRn) KIARA Rhodes Service: Care Management Author Type: Registered Nurse Type: Care Mgt Progress Note Filed: 08/15/2019 4:08 PM Note Text: CARE MANAGEMENT PROGRESS NOTE SERVICE DATE: 08/15/2019 SERVICE TIME: 3:41 PM LOS: 0 days Met with patient in HD. Agreeable for Eliquis to be filled at [facility] pharmacy to determine copay amount. Dr. Gautam notified to send electronically to [facility] pharmacy. Patient is scheduled to have HD at [facility] for teaching with new TDC. Spoke with KIARA Potts at [facility]. Patient is scheduled 08/16/19 at 645 am. SIGNATURE: Aletha Rhodes RN PATIENT NAME: Cate Fox DATE: August 15, 2019 TIME: 3:41 PM PAGER/CONTACT #: [phone] [facility] CONSULTon 08-15-2019 CONSULT HNO ID: [id number] Author: Junaid Lau Service: Nephrology Author Type: Physician Type: Consults Filed: 08/15/2019 1:24 PM Note Text: Cate Fox is a 58 y o female patient well known to us. ESRD, was on HHD. Had a left arm AVF which clotted last week, could not be opened up. Ended up having a temporary catheter last Tuesday. This worked for 2 days and stopped after. Has been without dialysis since Tuesday. Had a left IJ TDC placed by vascular surgery this am. Feels ok. ROS negative except above . PAST MEDICAL HISTORY Diagnosis Date - Anemia associated with chronic renal failure - Chronic renal failure - ESRD on hemodialysis (HCC) - Hyperparathyroidism - Hypertension - Hypotension - Polycystic kidney disease PAST SURGICAL HISTORY Procedure Laterality Date - ARTERY-VEIN ANASTOMOSIS 02-10-10 RIGHT FOREARM - ARTERY-VEIN ANASTOMOSIS 04/02/10 RUE brachiobasilic AVF - CHOLECYSTECTOMY 2000 laproscopic - KIDNEY SURGERY HX removed - PAST SURGICAL HISTORY OF x 2 - REM LESION NEC,HAND,SCAL<0.5CM 06/02/13 Exc. scalp wens x 2 Social History Tobacco Use - Smoking status: Never Smoker - Smokeless tobacco: Never Used Substance Use Topics - Alcohol use: No - Drug use: No Current Facility-Administered Medications Medication Dose Route Frequency Provider Last Rate Last Dose - NaCl 0.9% 10 mL 10 mL INTRAVENOUS q 12 H Eber Cunha 10 mL at 08/15/19 1154 - NaCl 0.9% 20 mL 20 mL INTRAVENOUS PRN Eber Cunha - allopurinol 100 mg tab(s) (ZYLOPRIM) 100 mg ORAL MO-- Eber Mirza Netzley 100 mg at 08/15/19 1155 - docusate sodium 100 mg cap(s) (COLACE) 100 mg ORAL DAILY Eber Mirza Netzley 100 mg at 08/15/19 1155 - midodrine 10 mg tab(s) (PROAMATINE) 10 mg ORAL 2 times per day on Tue Eber Mirza Netzley 10 mg at 08/15/19 1159 - oxyCODONE IR 5 mg tab(s) (ROXICODONE) 5 mg ORAL q 4 H PRN Eber Fordey 5 mg at 08/15/19 1159 - sevelamer carbonate 2,400 mg tab(s) (RENVELA) 2,400 mg ORAL TID before MEALS Ebre Cunha 2,400 mg at 08/15/19 1154 - albuterol HFA 90 mcg/actuation 2 Puff (PROVENTIL HFA, VENTOLIN HFA) 2 Puff INHALATION q 4 H PRN Eber Cunha - heparin 5,000 Units injection 5,000 Units SUBCUTANEOUS q 12 H Eber Cunha 5,000 Units at 08/14/192013 - NaCl 0.9% 2-10 mL 2-10 mL INTRAVENOUS q 12 H Eber Cunha 5 mL at 08/14/192031 - acetaminophen 650 mg tab(s) (TYLENOL) 650 mg ORAL q 6 H PRN Eber Cunha - benzocaine-menthoL 1 Lozenge (CEPACOL) 1 Lozenge MUCOUS MEMBRANE (TOPICAL MOUTH AND THROAT) q 2 H PRN Eber Cunha - aluminum-magnesium hydroxide-simethicone 200-200-20 mg/5 mL 30 mL (MAALOX,MYLANTA,MAG-AL PLUS) 30 mL ORAL q 6 H PRN Eber Cunha - morphine 4 mg injection 4 mg INTRAVENOUS q 3 H PRN Eber Cunha - nitroglycerin sublingual 0.4 mg tab(s) (NITROQUICK) 0.4 mg SUBLINGUAL PRN Eber Cunha - ondansetron (PF) 4 mg injection (ZOFRAN) 4 mg INTRAVENOUS q 6 H PRN bEer uCnha - polyvinyl alcohol-povidone 1.4-0.6 % 1 Drop (REFRESH) 1 Drop BOTH EYES PRN Eber Cunha - prochlorperazine 5 mg injection (COMPAZINE) 5 mg INTRAVENOUS q 4 H PRN Eber Cunha - diphenhydrAMINE 25 mg (BENADRYL) 25 mg ORAL q 4 H PRN Eber Cunha - guaiFENesin-dextromethorphan 100-10 mg/5 mL 10 mL oral liquid (ROBITUSSIN DM) 10 mL ORAL q 4 H PRN Eber Cunha - Lip Protectant with Sunscreen SPF 15 1 application Stick (Blistex) 1 application TOPICAL PRN Eber Cunha - sodium chloride 0.65 % 2 [place] (AYR, OCEAN) 2 [place] EACH NOSTRIL PRN Eber Cunha - saliva substitute combo no.9 15 mL (BIOTENE mouthwash) 15 mL MUCOUS MEMBRANE (TOPICAL MOUTH AND THROAT) PRN Eber Cunha - b complex, c, folic acid 1 mg renal vitamins 1 capsule (NEPHROCAPS) 1 capsule ORAL DAILY Eber Cunha 1 capsule at 08/15/19 1155 allopurinol (ZYLOPRIM) 100 mg tablet, Take 100 mg by mouth. Tuesday, Disp: , Rfl: docusate sodium (COLACE) 100 mg capsule, Take 100 mg by mouth once daily., Disp: , Rfl: MADDY-BRIAN 0.8 mg tab, Take 1 tablet by mouth once daily., Disp: , Rfl: midodrine (PROAMATINE) 10 mg tablet, Take 10 mg by mouth. Prior to dialysis and half way through dialysis, Disp: , Rfl: ondansetron orally disintegrating (ZOFRAN ODT) 4 mg disintegrating tablet, Take 4 mg by mouth as needed., Disp: , Rfl: oxyCODONE IR (ROXICODONE) 5 mg immediate release tablet, Take 5 mg by mouth as needed. q6 hours prn, Disp: , Rfl: sevelamer carbonate (RENVELA) 800 mg tablet, Take by mouth three times daily. 3 pills per meal and 1 for snack, Disp: , Rfl: albuterol HFA (PROVENTIL HFA, VENTOLIN HFA) 90 mcg/actuation inhaler, Inhale 2 Puffs as instructed every 4 hours as needed for Wheezing/Shortness of Breath., Disp: , Rfl: ALLERGIES Allergen Reactions - Codeine Intolerance Jittery and nauseous - Penicillins Unknown Too young to remember reaction. 08/14/19 1700 08/14/19 1800 08/15/19 0547 08/15/19 0715 BP: 109/70 122/72 106/57 108/51 Pulse: 65 61 63 62 Resp: 16 16 16 16 Temp: 36.9 ?C (98.4 ?F) 36.7 ?C (98 ?F) 37 ?C (98.6 ?F) TempSrc: Oral Oral Oral SpO2: 100% 100% 96% 98% Weight: 69.4 kg (153 lb) Height: 152.4 cm (5') General. No obvious distress HEENT. No pallor, icterus, JVD Heart S1, S2 Lungs clear Abdomen soft No edema No cyanosis No rash AAO x 3 No LAD Recent Labs 08/15/19 0625 08/14/19 1200 WBC -- 9.49 HB -- 9.4* HCT -- 30.1* PLT -- 205 NA 137 138 K 6.0* 5.4* CHLOR 106 105 CO2 20* 25 CREAT 16.30* 14.60* BUN 69* 63* GLUC 89 92 P 7.0* -- MG 2.5 -- CA 8.5 8.9 Assessment/Plan ESRD. HD today. Orders placed. Consent in chart. Hyperkalemia. Should improve with HD Access. Right IJ thrombosis. Left arm brachiocephalic clotted. As per vein studies from last week, she may be a candidate for left arm AVG. Will follow with vascular here She recently developed hypotension recently, unclear etiology, completely asymptomatic. Echo was ok. Cortisol was ok. Has been on midodrine and florinef. Will plan for another access when BP is better dw Dr Cunha. Ok to dc after HD today Has a confirmed in house dialysis spot tomorrow am Called dialysis unit Normal [facility] IR DIALYSIS APHERESIS CATH P LCon 08-15-2019 IR DIALYSIS APHERESIS CATH PLC * * *Final Report* * * DATE OF EXAM: Aug 15 2019 10:08AM [place] [id number] - IR DIALYSIS APHERESIS CATH PLC / PROCEDURE REASON: ESRD (end stage renal disease) ([facility]) * * * * Physician Interpretation * * * * EXAM TITLE: PLACEMENT OF TUNNELED DIALYSIS CATHETER LEFT INTERNAL JUGULAR VEIN USING EXCHANGE TECHNIQUE, TEMPORARY TO TUNNELED. DATE:08/15/2019 CLINICAL INDICATION/HISTORY: Patient has a several year history of end-stage renal failure and dialysis therapy. Recently left upper arm AV access failed and temporary access had been placed while the patient was in [place]. Evidently local dialysis center was unable to get this temporary catheter to function and the patient is referred for new access/exchange TECHNIQUE: Consent was confirmed and timeout protocols were followed. The left neck area was sterilely prepped and draped with maximal barrier precaution down onto the infraclavicular area. Lidocaine local anesthesia was injected around the exit site of the temporary catheter as well as along the proposed tunnel site and exit site and the skin below the clavicle. Incision was made at the new entry site and a Magic wire placed through the temporary catheter so it could be removed. Tear-away sheath was placed over the heavy guidewire in the central venous system and the new 19 cm cuff to tip catheter was brought through the tunnel to the jugular puncture site. The tip of the new catheter was passed through the tear-away sheath as it was removed. Tip of the catheter now is at the SVC/RA junction. Both ports aspirated well were flushed with saline and Hep-Lock. The skin closure at the neck as well as around the exit site was done with Ethilon suture and the hub of the catheter secured to skin with a heavier Prolene suture. Sterile dressing was applied FINDINGS: Fluoroscopy time for this procedure was 1.1 minute with an MG Y of 6. No contrast was utilized. The longer catheter, 19 cm cuff to tip, was placed in a fashion so the tip of the catheter is more distally in the heart and previous. IMPRESSION: Successful placement of tunneled dialysis catheter using exchange technique Grout Machine Tender: [facility] Transcribe Date/Time: Aug 15 2019 11:49A Dictated by : EBER CUNHA MD This examination was interpreted and the report reviewed and electronically signed by: EBER CUNHA MD on Aug 15 2019 11:59AM EST Normal [facility] MDRD GFRon 08-15-2019 GFR/1.73 sq M predicted among non-blacks MDRD (S/P/Bld) [Vol rate/Area] 2.28 mL/min/{1.73_m2} Normal >60mL/min/ 1.73m2 [facility] Comment on above: Result Comment: If t he patient is , multiply the result by 1.210. Performed By: #### G FR #### [place] [address] Magnesium Bloodon 08-15-2019 Magnesium [Mass/Vol] 2.5 mg/dL Normal 1.6-2.6 [facility] Comment on above: Performed By: #### M AG #### [place] [address] NURSING PROGon 08-15-2019 NURSING PROG HNO ID: [id number] Author: Yaa Hernandez (Rn) KIARA Whitaker Service: Dialysis Author Type: Registered Nurse Type: Nursing Progress Note Filed: 08/15/2019 7:14 PM Note Text: HEMODIALYSIS TX COMPLETED KULWANT WELL STABLE FLUID BALANCE -2000 ML OFF SEE FLOW SHEET FOR DETAILS REPORT GIVEN TO CAS CRAIG Normal [facility] PLAN OF CAREon 08-15-2019 PLAN OF CARE HNO ID: [id number] Author: Orlando Britt (Pharmacist) Service: Pharmacy Author Type: Pharmacist Type: Plan of Care Filed: 08/15/2019 7:37 PM Note Text: PHARMACY ANTICOAGULATION EDUCATION Patient Name: Cate Fox Account #: Data Unavailable Admission Date: 08/14/2019 10:47 AM Date of Contact: August 15, 2019 Time of Contact: 7:33 PM Patient new to Apixaban? Yes Indication for anticoagulation: DVT Patient received full anticoagulation education. Initial patient education included: * Reason for taking anticoagulation * How anticoagulant works * When to take medication and what to do if a dose is missed * Drug interactions (Rx, OTC, herbal) and importance of notifying the doctor with any changes. * Do not take or discontinue any medication or over the counter medication except on the advice of the physician or pharmacist. * Potential duration of therapy * Signs/symptoms of bleeding and what to do if they occur because anticoagulation increases the risk of bleeding * Precautionary measures to decrease trauma/bleeding * Signs/symptoms of thrombosis and what to do if they occur * Carrying identification * Importance of notifying healthcare provider when hospitalizations occur and when another healthcare provider has asked them to stop/hold anticoagulation medication before any procedure * Importance of notifying all healthcare providers they are taking an anticoagulant * Use of control measures if applicable * The importance of taking anticoagulation medication as instructed and the potential ramifications of non-compliance were explained to the patient. The patient was provided supplemental material which includes the following topics: compliance Issues, follow-up with physician, follow- up monitoring, potential adverse drug reactions and interactions. READINESS TO LEARN COGNITIVE ABILITY: Patient was drowsy, but spouse was attentive to counseling. MOTIVATION TO LEARN: Interested FAMILY SUPPORT: High - Very involved in pt care INSTRUCTION PROVIDED TO: Patient and Spouse PATIENT LEARNS BEST BY: Individual Instruction Written Instruction - Hand-outs Verbal Instruction FACTORS AFFECTING LEARNING: Unable to assess PHYSICAL LIMITATIONS AFFECTING LEARNING: Limited Mobility LEARNING RESPONSE DIAGNOSIS: SEE INDICATION(S) ABOVE PATIENT/FAMILY RESPONSE: Verbalizes understanding of: The signs and symptoms of a worsening condition that warrant a call to the physician. Accurate knowledge of prescribed medication prior to discharge. Post discharge follow up instruction METHOD OF INSTRUCTION: Individual instruction Written instruction - handouts SUPPLEMENTAL MATERIAL PROVIDED: Apixaban education booklet and Apixaban educational leaflet per [employer] FURTHER RECOMMENDATIONS (if any) N/A EVIDENCE OF LEARNING Outcomes met: Indicates understanding of topic Outcomes not met: N/A Neelam Turpin Pager: [phone] [facility] PLAN OF CARE HNO ID: [id number] Author: Orlando Britt (Pharmacist) Service: Pharmacy Author Type: Pharmacist Type: Plan of Care Filed: 08/15/2019 7:33 PM Note Text: DISCHARGE MEDICATION REVIEW AND COUNSELING BY PHARMACY Patient Name: Cate Fox Account #: Data Unavailable Admission Date: 08/14/2019 Date of Contact: August 15, 2019 Time of Contact: 7:29 PM LEARNERS Persons Present: Patient and Partner Primary Learner: Patient and Partner Medication list was reviewed by a Pharmacist for drug interactions or drug related problems:Yes The patient was counseled on the medication(s) listed below and was given the opportunity to ask questions regarding indication, dosage, side effects and drug interactions READINESS TO LEARN COGNITIVE ABILITY: Patient was drowsy, but spouse was attentive. MOTIVATION TO LEARN:Interested FAMILY SUPPORT:High - Very involved in pt care INSTRUCTION PROVIDED TO:Patient and Spouse PATIENT LEARNS BEST BY:Individual Instruction Written Instruction - Hand-outs Verbal Instruction FACTORS AFFECTING LEARNING:Unable to assess PHYSICAL LIMITATIONS AFFECTING LEARNING:Other Limitations Unable to assess at the of visit. LEARNING RESPONSE PATIENT / FAMILY RESPONSE:Verbalizes understanding of: The signs and symptoms of a worsening condition that warrant a call to the physician. Accurate knowledge of prescribed medication prior to discharge. Post discharge follow up instruction Discharge disposition: Home with self care and family support Neelam Turpin August 15, 2019 7:29 PM Pager: [phone] Medication List START taking these medications apixaban 5 mg tab(s) Commonly known as: ELIQUIS Take 1 tablet by mouth twice daily. CONTINUE taking these medications albuterol HFA 90 mcg/actuation inhaler Commonly known as: PROVENTIL HFA, VENTOLIN HFA allopurinol 100 mg tablet Commonly known as: ZYLOPRIM docusate sodium 100 mg capsule Commonly known as: COLACE midodrine 10 mg tablet Commonly known as: PROAMATINE ondansetron orally disintegrating 4 mg disintegrating tablet Commonly known as: ZOFRAN ODT oxyCODONE IR 5 mg immediate release tablet Commonly known as: ROXICODONE MADDY-BRIAN 0.8 mg Tab Generic drug: B Complex-Vitamin C-Folic Acid sevelamer carbonate 800 mg tablet Commonly known as: RENVELA Where to Get Your Medications You can get these medications from any pharmacy Bring a paper prescription for each of these medications ? apixaban 5 mg tab(s) [facility] PLAN OF CARE HNO ID: [id number] Author: Kellen Del Castillo (SchoolOut) Service: ? Author Type: ? Type: Plan of Care Filed: 08/15/2019 5:59 PM Note Text: PHARMACY BEDSIDE DELIVERY SERVICE Patient Name: Cate Fox The marked outpatient medications were Filled at: [place] and delivered to the patient's bedside to [facility] as she was at dialysis. KIARA crowley. Medication List START taking these medications apixaban 5 mg tab(s) Commonly known as: ELIQUIS Take 1 tablet by mouth twice daily. CONTINUE taking these medications albuterol HFA 90 mcg/actuation inhaler Commonly known as: PROVENTIL HFA, VENTOLIN HFA allopurinol 100 mg tablet Commonly known as: ZYLOPRIM docusate sodium 100 mg capsule Commonly known as: COLACE midodrine 10 mg tablet Commonly known as: PROAMATINE ondansetron orally disintegrating 4 mg disintegrating tablet Commonly known as: ZOFRAN ODT oxyCODONE IR 5 mg immediate release tablet Commonly known as: ROXICODONE MADDY-BRIAN 0.8 mg Tab Generic drug: B Complex-Vitamin C-Folic Acid sevelamer carbonate 800 mg tablet Commonly known as: RENVELA You might also be taking other medications not listed above. If you have questions about any of your other medications, talk to the person who prescribed them or your Primary Care Provider. Kellen Del Castillo (SchoolOut) PAGER: [phone] August 15, 2019 5:58 PM [facility] PLAN OF CARE HNO ID: [id number] Author: Orlando Britt (Pharmacist) Service: Pharmacy Author Type: Pharmacist Type: Plan of Care Filed: 08/15/2019 5:33 PM Note Text: MEDICATION RECONCILIATION Patient Name:Mai Fox : 1960 Reconciliation: Yes All OFFAL BALER medications addressed by LIP Additional comments: Med Hx completed by Lindsey Khanna CphT Allergies: ALLERGIES Allergen Reactions - Codeine Intolerance Jittery and nauseous - Penicillins Unknown Too young to remember reaction. Preferred Pharmacy: [facility] :[phone] Current OFFAL BALER Medications: Prior to Admission medications as of 08/14/19 1440 Medication Sig Last Dose Taking allopurinol (ZYLOPRIM) 100 mg tablet Take 100 mg by mouth. Tuesday Yes docusate sodium (COLACE) 100 mg capsule Take 100 mg by mouth once daily. Yes MADDY-BRIAN 0.8 mg tab Take 1 tablet by mouth once daily. Yes midodrine (PROAMATINE) 10 mg tablet Take 10 mg by mouth. Prior to dialysis and half way through dialysis Yes ondansetron orally disintegrating (ZOFRAN ODT) 4 mg disintegrating tablet Take 4 mg by mouth as needed. Yes oxyCODONE IR (ROXICODONE) 5 mg immediate release tablet Take 5 mg by mouth as needed. q6 hours prn Yes sevelamer carbonate (RENVELA) 800 mg tablet Take by mouth three times daily. 3 pills per meal and 1 for snack Yes albuterol HFA (PROVENTIL HFA, VENTOLIN HFA) 90 mcg/actuation inhaler Inhale 2 Puffs as instructed every 4 hours as needed for Wheezing/Shortness of Breath. Yes apixaban (ELIQUIS) 5 mg tab(s) Take 1 tablet by mouth twice daily. Orlando Britt, Pharmacist August 15, 2019 5:25 PM Pager: [phone] [facility] PLAN OF CARE HNO ID: [id number] Author: Liana Gómez (Hunting Sales Associate) Service: ? Author Type: ? Type: Plan of Care Filed: 08/15/2019 5:12 PM Note Text: PERSONAL DRIVER BEDSIDE DELIVERY SURVEY 1. Patient to use [facility] [facility] Bedside Delivery - YES Insurance Information as follows: 2. Insurance card on file - YES 3. Credit card for payment - N/A Patient has 1 Prescription: Eliquis 5mg Regular co-pay $167.10. Pt has $2,800 deductible to meet. Using free trial card for this month. Total: $0 Ena [phone] ([id number]) or Kellen [phone] ([id number]) Pharmacy Discharge Medication Service: This patient has elected to receive their discharge prescriptions through the [facility] Bedside Prescription Delivery program. The prescriptions are currently being processed. A follow-up note will be entered once the prescriptions have been filled and delivered to the patient. Please contact me with any questions or updates to the patient's discharge medications. Liana Gómez (Hunting Sales Associate) DCT Contact Info: [phone] [facility] PROGRESSon 08-15-2019 PROGRESS HNO ID: [id number] Author: Rain Gautam MD Service: Hospital Medicine Author Type: Physician Type: Progress Notes Filed: 08/15/2019 12:12 PM Note Text: DEPARTMENT OF HOSPITAL MEDICINE PROGRESS NOTE SERVICE DATE: 08/15/2019 SERVICE TIME: 8:37 AM Hospital Medicine/Primary Attending: Rain Vazquez MD NIGHT AND WEEKEND COVERAGE: After 7pm please page [phone] CHIEF COMPLAINT: Malfunctioning HD fistula/ HD cath placed recently SUBJECTIVE: Pt seen and examined. Had her HD cath switched today by Vascular OBJECTIVE: PHYSICAL EXAM: BP 108/51 Pulse 62 Temp (Src) 98.6 (Oral) Resp 16 Ht 5' 0 (1.52m) Wt 153 lb (69.4kg) SpO2 98% BMI 29.88 kg/(m2). O2 Therapy: Room Air General - AANDOx3, NAD, Calm CV - RRR S1 S2, No M/R/G RESP - CTA B/L No wheezes, ronchi, rales ABD - soft, NT, ND +BS EXT - no gross joint deformity, no clubbing, cyanosis, edema NEURO - CN II-XII grossly intact, no focal deficits MEDICATIONS: Current Facility-Administered Medications Medication Dose Route Frequency - allopurinol 100 mg tab(s) (ZYLOPRIM) 100 mg ORAL -- - docusate sodium 100 mg cap(s) (COLACE) 100 mg ORAL DAILY - midodrine 10 mg tab(s) (PROAMATINE) 10 mg ORAL 2 times per day on Tue - oxyCODONE IR 5 mg tab(s) (ROXICODONE) 5 mg ORAL q 4 H PRN - sevelamer carbonate 2,400 mg tab(s) (RENVELA) 2,400 mg ORAL TID before MEALS - albuterol HFA 90 mcg/actuation 2 Puff (PROVENTIL HFA, VENTOLIN HFA) 2 Puff INHALATION q 4 H PRN - heparin 5,000 Units injection 5,000 Units SUBCUTANEOUS q 12 H - NaCl 0.9% 2-10 mL 2-10 mL INTRAVENOUS q 12 H - acetaminophen 650 mg tab(s) (TYLENOL) 650 mg ORAL q 6 H PRN - benzocaine-menthoL 1 Lozenge (CEPACOL) 1 Lozenge MUCOUS MEMBRANE (TOPICAL MOUTH AND THROAT) q 2 H PRN - aluminum-magnesium hydroxide-simethicone 200-200-20 mg/5 mL 30 mL (MAALOX,MYLANTA,MAG-AL PLUS) 30 mL ORAL q 6 H PRN - morphine 4 mg injection 4 mg INTRAVENOUS q 3 H PRN - nitroglycerin sublingual 0.4 mg tab(s) (NITROQUICK) 0.4 mg SUBLINGUAL PRN - ondansetron (PF) 4 mg injection (ZOFRAN) 4 mg INTRAVENOUS q 6 H PRN - polyvinyl alcohol-povidone 1.4-0.6 % 1 Drop (REFRESH) 1 Drop BOTH EYES PRN - prochlorperazine 5 mg injection (COMPAZINE) 5 mg INTRAVENOUS q 4 H PRN - diphenhydrAMINE 25 mg (BENADRYL) 25 mg ORAL q 4 H PRN - guaiFENesin-dextromethorphan 100-10 mg/5 mL 10 mL oral liquid (ROBITUSSIN DM) 10 mL ORAL q 4 H PRN - Lip Protectant with Sunscreen SPF 15 1 application Stick (Blistex) 1 application TOPICAL PRN - sodium chloride 0.65 % 2 Clifton (AYR, OCEAN) 2 Clifton EACH NOSTRIL PRN - saliva substitute combo no.9 15 mL (BIOTENE mouthwash) 15 mL MUCOUS MEMBRANE (TOPICAL MOUTH AND THROAT) PRN - b complex, c, folic acid 1 mg renal vitamins 1 capsule (NEPHROCAPS) 1 capsule ORAL DAILY DATA: Diagnostic tests reviewed for today's visit: CBC: Recent Labs 08/14/19 1200 WBC 9.49 RBC 3.05* HB 9.4* HCT 30.1* PLT 205 MCV 98.7* MCH 30.8 MPV 9.8 RDW 14.3 Coags: Recent Labs 08/15/19 0625 INR 0.97 APTT 28.5 BMP: Recent Labs 08/15/19 0625 NA 137 K 6.0* CHLOR 106 CO2 20* BUN 69* CREAT 16.30* GLUC 89 CMP: Recent Labs 08/15/19 0625 NA 137 K 6.0* CHLOR 106 CO2 20* BUN 69* CREAT 16.30* GLUC 89 CA 8.5 MG 2.5 ANION 17* Cardiac Enzymes: No results for input(s): CK, MB, CKMB, TROPT in the last 24 hours. Liver Function, Amylase, Lipase: No results for input(s): TPROT, ALB, ALT, AST, ALKPHOS, TBILI, AMYLASE, LIPASE, LACTATE in the last 24 hours. MG/PHOS: Recent Labs 08/15/19 0625 MG 2.5 P 7.0* Renal Panel: Recent Labs 08/15/19 0625 CREAT 16.30* BUN 69* GLUC 89 CA 8.5 P 7.0* CHLOR 106 K 6.0* CO2 20* NA 137 Heme: No results for input(s): RETICP, ABSRETIC, LD, SPARKLE, FE, TIBC, TRANSFERSAT in the last 24 hours. No results found for: UALBCR Assessment/Plan Principal Problem: #Hyperkalemia/uremia/hyperph osphatemia Last HD 07/13. -K at 6.0. 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 #ESRD - due to PCKD, HD since 2017 Medication and Non-Pharmacologic VTE Prophylaxis/Anticoagulants Anticoagulant AND Antiplatelet Medications (From admission, onward) Start Dose Route Frequency Ordered Stop 08/14/19 1900 heparin 5,000 Units injection (Medical Risk Categories) 5,000 Units SUBCUTANEOUS EVERY 12 HOURS 08/14/19 183 -- 08/14/191844 vte non-pharmacologic prophylaxis - none indicated (ne,oh) 08/14/191844 activity - mobilize patient (ne,ca) Lines, Drains, and Airways Line Peripheral 08/14/19 1200 Right Antecubital 20 Gauge less than 1 day VTE Prophylaxis: Heparin 5000 units Sub Q BID Disposition: Home- after HD today Functional Status Prior to Admit: Medical Necessity for Continued Hospitalization Plan of care discussed with: Provider, RN, Patient SIGNATURE: Rain Vazquez MD PATIENT NAME: Cate Fox DATE: August 15, 2019 TIME: 8:37 AM PAGER/CONTACT #: Team color pager Disclaimer: Portions of this note may have been generated using [employer] voice recognition software. Reasonable efforts were made to correct any dictation errors that resulted due to the programming of this software but some may still be present. Normal [facility] PROGRESS HNO ID: [id number] Author: Tamanna Faye Service: Vascular Surgery Author Type: Resident Type: Progress Notes Filed: 08/15/2019 11:47 AM Note Text: Attestation signed by Esperanza Hargrove at 08/16/2019 3:10 PM Attending Note I personally saw and examined the patient 08/15/19. I reviewed the resident's note. I agree with the resident's assessment and plan unless otherwise noted. Signature: Esperanza Hargrove MD Date: 08/16/2019 Time: 3:09 PM Vascular Surgery Progress Note SERVICE DATE: 08/15/2019 SUBJECTIVE: No acute events overnight. Resting comfortably this am. Tolerating diet DIET RENAL OBJECTIVE: Vitals: Temp (24hrs), Av.7 ?C (98.1 ?F), Min:36.6 ?C (97.9 ?F), Max:36.9 ?C (98.4 ?F) BP 106/57 Pulse 63 Temp 36.7 ?C (98 ?F) (Oral) Resp 16 Ht 152.4 cm (5') Wt 69.4 kg (153 lb) SpO2 96% BMI 29.88 kg/m? O2 Therapy: Room Air IANDO: MEDICATIONS Current Facility-Administered Medications Medication Dose Route Frequency - allopurinol 100 mg tab(s) (ZYLOPRIM) 100 mg ORAL - - docusate sodium 100 mg cap(s) (COLACE) 100 mg ORAL DAILY - midodrine 10 mg tab(s) (PROAMATINE) 10 mg ORAL 2 times per day on Tue - oxyCODONE IR 5 mg tab(s) (ROXICODONE) 5 mg ORAL q 4 H PRN - sevelamer carbonate 2,400 mg tab(s) (RENVELA) 2,400 mg ORAL TID before MEALS - albuterol HFA 90 mcg/actuation 2 Puff (PROVENTIL HFA, VENTOLIN HFA) 2 Puff INHALATION q 4 H PRN - heparin 5,000 Units injection 5,000 Units SUBCUTANEOUS q 12 H - NaCl 0.9% 2-10 mL 2-10 mL INTRAVENOUS q 12 H - acetaminophen 650 mg tab(s) (TYLENOL) 650 mg ORAL q 6 H PRN - benzocaine-menthoL 1 Lozenge (CEPACOL) 1 Lozenge MUCOUS MEMBRANE (TOPICAL MOUTH AND THROAT) q 2 H PRN - aluminum-magnesium hydroxide-simethicone 200-200-20 mg/5 mL 30 mL (MAALOX,MYLANTA,MAG-AL PLUS) 30 mL ORAL q 6 H PRN - morphine 4 mg injection 4 mg INTRAVENOUS q 3 H PRN - nitroglycerin sublingual 0.4 mg tab(s) (NITROQUICK) 0.4 mg SUBLINGUAL PRN - ondansetron (PF) 4 mg injection (ZOFRAN) 4 mg INTRAVENOUS q 6 H PRN - polyvinyl alcohol-povidone 1.4-0.6 % 1 Drop (REFRESH) 1 Drop BOTH EYES PRN - prochlorperazine 5 mg injection (COMPAZINE) 5 mg INTRAVENOUS q 4 H PRN - diphenhydrAMINE 25 mg (BENADRYL) 25 mg ORAL q 4 H PRN - guaiFENesin-dextromethorphan 100-10 mg/5 mL 10 mL oral liquid (ROBITUSSIN DM) 10 mL ORAL q 4 H PRN - Lip Protectant with Sunscreen SPF 15 1 application Stick (Blistex) 1 application TOPICAL PRN - sodium chloride 0.65 % 2 Clifton (AYR, OCEAN) 2 Clifton EACH NOSTRIL PRN - saliva substitute combo no.9 15 mL (BIOTENE mouthwash) 15 mL MUCOUS MEMBRANE (TOPICAL MOUTH AND THROAT) PRN - b complex, c, folic acid 1 mg renal vitamins 1 capsule (NEPHROCAPS) 1 capsule ORAL DAILY Labs: Recent Labs 08/14/19 1200 NA 138 K 5.4* CHLOR 105 CO2 25 BUN 63* CREAT 14.60* GLUC 92 ANION 13 CA 8.9 WBC 9.49 HB 9.4* HCT 30.1* PLT 205 Exam: BP 108/51 Pulse 62 Temp 37 ?C (98.6 ?F) (Oral) Resp 16 Ht 152.4 cm (5') Wt 69.4 kg (153 lb) SpO2 98% BMI 29.88 kg/m? GENERAL: No distress, Alert NEURO: AANDOx3, CN II-XII grossly intact HEENT: normocephalic, atraumatic LUNGS: Unlabored breathing CARDIAC: Regular rate EXTREMITIES: MCKEON, LUE: ecchymosis, no palpable thrill, palpable radial pulse, MSI ASSESSMENT AND PLAN: Active Hospital Problems Diagnosis Date Noted - AV fistula thrombosis (HCC) 08/14/2019 Priority: A - Vascular catheter dysfunction (HCC) 08/14/2019 - ESRD on hemodialysis (HCC) - Polycystic kidney disease 01/26/2010 58 year old female with thrombosis of transposed LUE brachiobasilic fistula and tunneled HD cath ? - Will exchange current HD cath in IR today - Will order vein mapping to evaluate for possible AV graft vs fistula in BUE - Continue medical management per primary Vascular AND Thoracic Surgery Service Pager: For questions or concerns Mon-Fri 6a-5p please page [phone]. After 5pm and on Weekends and Holidays, please page [phone] if in ICU or [phone] if on RNF. SIGNATURE: Tamanna Faye MD PATIENT NAME: Cate Fox DATE: August 15, 2019 TIME: 6:17 AM Pager: Normal [facility] Phosphorus Bloodon 0 Phosphate [Mass/Vol] 7.0 mg/dL High 2.5-4.9 [facility] Comment on above: Performed By: #### P HOS #### [facility] [address] [place], [place] [address] Prealbuminon 08-15-2019 Prealbumin [Mass/Vol] 24.0 mg/dL Normal 20.0-40.0 [facility] [place] Comment on above: Performed By: #### P AB #### [facility] [address] [place], [place] [address] Protimeon 08-15-2019 INR Coag (PPP) [Relative time] 0.97 {INR} Normal 0.90-1.30 [facility] Comment on above: Result Comment: Kelly min K Antagonist (VKA) Therapeutic Range: INR 2 to 3 (Target INR of 2.5) Note: For patients treated with VKA drugs, such as warfarin, the [place] [employer] 2012 Guideline recommends a therapeutic INR range of 2 to 3 (target INR of 2.5). This recommendation includes high-risk patients with antiphospholipid syndrome with previous arterial or venous thromboembolism, current-generation mechanical or bioprosthetic aortic heart valve replacement. Note: Patients with mechanical aortic valve replacement and additional risk factors for thromboembolic events (atrial fibrillation, previous thromboembolism, LV dysfunction, hypercoagulable conditions) or an older generation mechanical AVR (i.e., ball in-Cage) or any mechanical MVR should have a INR therapeutic range of 2.5 to 3.5 target INR of 3). Chirag GH, et al. Chest 2012; 141:7S-47S Francia RA et al. JACC 2017; 70: 252-289 Performed By: #### P T #### [facility] [address] [place] [address] PT Coag (PPP) [Time] 10.5 s Normal 9.7-13.0 [facility] Comment on above: Performed By: #### P T #### [facility] [address] [place] [id number] US VEIN MAPPING UPPER BILon 08-15-2019 US VEIN MAPPING UPPER KIMBERLEE * * *Final Report* * * DATE OF EXAM: Aug 15 2019 2:31PM AKU [id number] - US VEIN MAPPING UPPER KIMBERLEE / PROCEDURE REASON: Arteriovenous fistula (AVF) * * * * Physician Interpretation * * * * EXAMINATION: BILATERAL COLOR-FLOW DUPLEX ULTRASOUND OF EACH UPPER EXTREMITY FOR VEIN MAPPING. CLINICAL HISTORY: 58F with chronic renal failure who is being evaluated for vein mapping as a potential candidate for fistula or graft formation for future dialysis access TECHNIQUE: Grayscale with compression maneuvers where accessible, color and spectral Doppler of the right and left internal jugular, subclavian, and axillary veins was performed. Grayscale with compression maneuvers of the right and left basilic, brachial and cephalic veins was also performed. Images were obtained and stored in a permanent archive. MQ: [id number] Color-flow duplex ultrasound interrogated as much as could be seen of the arterial inflow and deep venous system of each upper extremity. The central venous return was also evaluated. COMPARISON: Dialysis catheter placement 08/15/2019 RESULT: RIGHT UPPER EXTREMITY RIGHT UPPER EXTREMITY: The arterial inflow is triphasic with normal color flow. The brachial artery measures 4 mm. The radial artery measures 1 mm. The ulnar artery measures 2 mm. There is no deep venous thrombosis. The central venous return shows normal color flow and respiratory phasicity. The veins in the forearm are more prominent on the ulnar side. The radial veins range from 1 to 1.5 mm. The ulnar veins range from 1 to 2 mm. The brachial vein ranges from 3 to 5 mm. The basilic vein ranges from 2 to 4 mm. The cephalic vein ranges from 2 at 3 mm. LEFT UPPER EXTREMITY The arterial inflow is triphasic with normal color flow. The brachial artery measures 5 mm. The radial artery measures 2 mm. The ulnar artery measures 1 mm. There is deep venous thrombosis involving the left axillary vein. The central venous return is obscured by the existing left sided central venous catheter. The veins in the forearm are more prominent on the radial side. There is an existing abandoned left brachiobasilic fistula, currently thrombosed. The radial veins range from 2 to 3 mm. The ulnar veins range from 1 to 2 mm. The brachial vein ranges from 6 to 8 mm. The basilic vein is not visualized discretely. The cephalic vein ranges from 3 to 3.5 mm. IMPRESSION: Positive study for acute DVT in the left axillary vein. No right upper extremity DVT. Abandoned left brachiobasilic fistula, currently thrombosed. Venous diameters and depth are included on the worksheet. Arterial inflow is normal. Central venous return is unobstructed on the right. An existing left-sided central venous catheter obscures the imaging of the central venous return on the left. COMMUNICATION: Communicated with: Rain Gautam MD on 08/15/2019 at 14:40 hours. Grout Machine Tender: PSCB Transcribe Date/Time: Aug 15 2019 2:38P Dictated by : PARVEEN IZQUIERDO MD This examination was interpreted and the report reviewed and electronically signed by: PARVEEN IZQUIERDO MD on Aug 15 2019 2:55PM EST Normal [facility] Basic Panelon 08-14-2019 Creatinine [Mass/Vol] 14.60 mg/dL High 0.51-0.95 [facility] Comment on above: Result Comment: Use of this assay is not recommended for patients undergoing treatment with phenindione, due to the potential for falsely depressed results. Performed By: #### P 8 #### [address] [address] Anion gap [Moles/Vol] 13 mmol/L Normal 8-16 [facility] [place] Comment on above: Performed By: #### P 8 #### [facility] [address] [place], [place] [address] CO2 [Moles/Vol] 25 mmol/L Normal 21-32 [facility] Comment on above: Performed By: #### P 8 #### [facility] [address] [place], [place] [address] Glucose [Mass/Vol] 92 mg/dL Normal 70-99 [facility] Comment on above: Performed By: #### P 8 #### [facility] [address] [place], [place] [address] Urea nitrogen [Mass/Vol] 63 mg/dL High 7-18 [facility] Comment on above: Performed By: #### P 8 #### [address] [address] Calcium [Mass/Vol] 8.9 mg/dL Normal 8.5-10.1 [facility] Comment on above: Performed By: #### P 8 #### [facility] [address] [place], [place] [address] Chloride [Moles/Vol] 105 mmol/L Normal 98-107 [facility] Comment on above: Performed By: #### P 8 #### [facility] [address] [place], [place] [address] Potassium [Moles/Vol] 5.4 mmol/L High 3.5-5.1 [facility] [place] Comment on above: Performed By: #### P 8 #### [facility] [address] [place], [place] [address] Sodium [Moles/Vol] 138 mmol/L Normal 136-145 [facility] Comment on above: Performed By: #### P 8 #### [facility] [address] [place], [place] [address] CASE MGT INIT ASSESon 2019 CASE MGT INIT ASSES HNO ID: [id number] Author: Kaden Ray (Sw) Service: Care Management Author Type: Senior Vice President & General Counsel Type: Care Mgt Initial Assessment Filed: 08/14/2019 4:15 PM Note Text: CARE MANAGEMENT: ASSESSMENT AND DISCHARGE PLAN SERVICE DATE: August 14, 2019 SERVICE TIME: 4:12 PM PRIMARY CARE PHYSICIAN: Rohit Horan DO ADMISSION STATUS: Emergency Needs Prior to Discharge: To Be Determined MEDICAL: MEDICARE A AND B Health Insurance: Medicare Health Issues Impacting Discharge Plan: Newly diagnosed Newly Diagnosed: Problems with Dialysis Cath. Last Discharge Date: N/A Is this Within the Past 30 days? Last discharge within 30 days: No Advance Directive: Current Advance Directive: Health Care Power of Diabetes Nurse;Living Will In Chart: No Bag Repairer Attempted to Assist with AD Completion: Yes Action: Patient Unwilling Health LiteracyHow often do you need to have someone help you when you read instructions, pamphlets, or other written material from your doctor or pharmacy? : 1 - Never How confident are you filling out medical forms by yourself?: 1 - Extremely If Patient scores > 3 on either question, the following interventions were put into place:: Patient did not score > 3 on either question. Baseline Mental Status Prior to this Illness what was the patient's Baseline Mental Status?: Alert AND Oriented Prior to this illness, has anyone described the patient having any of the following behaviors?: Not Applicable Relationship of the informant to the patient:: Self Functional Status: Independent Does Patient Currently Receive Any Community Services or Home Care?: None Equipment Prior to Admission: Other: See Comment(Hoem Dailysis ) SOCIAL: Living Arrangements: Home Lives With: Spouse Financial Resources: UnemployedPrimary Contact: Extended Emergency Contact Information Primary Emergency Contact: EMERY FOX Address: [address] [place] [address] Mobile Relation: Spouse Supportive Patient Contact:: Yes Contact Resources: Family Social Needs Food insecurity Worry: Not on file Inability: Not on file Resources Needed: No Social Needs Financial resource strain: Not on file Social Needs Transportation needs Medical: Not on file Non-medical: Not on file Caregiver AssessmentCaregiver is ready, willing and able to meet the patient's needs as recommended by the inter-professional team:: Yes Does the patient have an acute stroke diagnosis, or has the patient had a stroke during this admission?: No Patient's transition needs and plan for meeting these needs: Plan to discharge home with no needs Patient's perception of need for this admission: Medication Adherance I am convinced of the importance of my prescription medication: 0 - Agree Completely I worry that my prescription medication will do more harm than good to me : 0 - Disagree Completely I feel financially burdened by my [id number] expenses for my prescription medication:: 0 - Disagree Completely Risk Score: 0 Patient is categorized as: Low risk < 2 Are you interested in bedside delivery of your medications? No Is Patient Psychosocially Complex?: No ASSESSMENT AND PLAN: Medical Needs: Medical Needs: Two or more chronic diseases Psychosocial Needs: Psychosocial Needs: None FREEDOM OF CHOICE EXPLAINED: [place] of Choice Given: Yes Level of Care Discussed: Home Care Financial Disclosure Provided: Yes Financial Disclosure Comments: Informed of [facility] connected facilities POTENTIAL TRANSITION PLANS Home Patient reports living at home with her and reports being able to ambulate independent. Patient reports doing in- home dialysis 4 times a week. Patient reports having Rx coverage, and expressed no issues affording medications. Patient reports no history of psychosocial issues. Patient reports having no mobility issues. Plan for patient to discharge home when medically ready. SW will continue to follow clinical course. SIGNATURE: GIAN Ann PATIENT NAME: Cate Fox DATE: August 14, 2019 TIME: 4:12 PM PAGER/CONTACT #: [phone] [facility] CONSULTon 08-14-2019 CONSULT HNO ID: [id number] Author: Bárbara Tenorio Service: Vascular Surgery Author Type: Resident Type: Consults Filed: 08/15/2019 1:22 AM Note Text: Attestation signed by Esperanza Hargrove at 08/15/2019 11:23 AM Attending Note I personally saw and examined the patient. I reviewed the resident's note. I agree with the resident's assessment and plan unless otherwise noted. Order placed for tunneled HD cath exchange, to be done today. Will order B UE vein mapping to determine feasibility for future AVF. Will need outpatient follow. Signature: Esperanza Hargrove MD Date: 08/15/2019 Time: 11:22 AM CONSULT: VASCULAR SURGERY SERVICE SERVICE DATE: 08/14/2019 SERVICE TIME: 6:45 PM REASON FOR CONSULT: Fistula eval after thrombosis REQUESTING PHYSICIAN: Dr Ferrari PRIMARY CARE PHYSICIAN: DO David Peace Ms. Fox is a 58 year old female with polycystic kidney disease, bilateral nephrectomies, sami who presents for difficulty with access during dialysis. Patient had a L AV fistula placed early 2016 at outside hospital. In 2018, she had a fistulogram with balloon plasty of stenotic segment of her fistula and she had no issues until this last Wed during dialysis. Patient was unable to be accessed and was seen on Tuesday for possible declot by IR, unfortunately only some of the clot was removed at the time. Patient had a tunneled HD line placed and she underwent dialysis on Tuesday, but on Tuesday her catheter was unable to draw back as well despite attempted flushes with antithrombotics through catheter. Patient was admitted to medical service for new dialysis catheter placement and new fistula vs graft. Patient had prior attempts at AV Fistulas in her lower and upper RUE that failed in the past. She is on kidney transplant list. She does not take any blood thinners. PAST MEDICAL HISTORY Diagnosis Date - Anemia associated with chronic renal failure - Chronic renal failure - ESRD on hemodialysis (HCC) - Hyperparathyroidism - Hypertension - Hypotension - Polycystic kidney disease PAST SURGICAL HISTORY Procedure Laterality Date - ARTERY-VEIN ANASTOMOSIS 02-10-10 RIGHT FOREARM - ARTERY-VEIN ANASTOMOSIS 04/02/10 RUE brachiobasilic AVF - CHOLECYSTECTOMY 2000 laproscopic - KIDNEY SURGERY HX removed - PAST SURGICAL HISTORY OF x 2 - REM LESION NEC,HAND,SCAL<0.5CM 06/02/13 Exc. scalp wens x 2 FAMILY HISTORY Problem Relation Age of Onset - Hypertension Father - other (brain aneurysm) Father age 52 - None Mother 78yo - Genitourinary () Brother PKD/on dialysis- 53 yo - Genitourinary () Sister PKD 43yo - None Sister 57yo - None Son 17 yo - None Daughter 15yo - other (polycystic disease) Other paternal cousins - Diabetes Maternal Grandmother Social History Tobacco Use - Smoking status: Never Smoker - Smokeless tobacco: Never Used Substance Use Topics - Alcohol use: No - Drug use: No allopurinol (ZYLOPRIM) 100 mg tablet, Take 100 mg by mouth. Tuesday, Disp: , Rfl: docusate sodium (COLACE) 100 mg capsule, Take 100 mg by mouth once daily., Disp: , Rfl: MADDY-BRIAN 0.8 mg tab, Take 1 tablet by mouth once daily., Disp: , Rfl: midodrine (PROAMATINE) 10 mg tablet, Take 10 mg by mouth. Prior to dialysis and half way through dialysis, Disp: , Rfl: ondansetron orally disintegrating (ZOFRAN ODT) 4 mg disintegrating tablet, Take 4 mg by mouth as needed., Disp: , Rfl: oxyCODONE IR (ROXICODONE) 5 mg immediate release tablet, Take 5 mg by mouth as needed. q6 hours prn, Disp: , Rfl: sevelamer carbonate (RENVELA) 800 mg tablet, Take by mouth three times daily. 3 pills per meal and 1 for snack, Disp: , Rfl: albuterol HFA (PROVENTIL HFA, VENTOLIN HFA) 90 mcg/actuation inhaler, Inhale 2 Puffs as instructed every 4 hours as needed for Wheezing/Shortness of Breath., Disp: , Rfl: Current Facility-Administered Medications Medication Dose Route Frequency - [START ON 08/15/2019] allopurinol 100 mg tab(s) (ZYLOPRIM) 100 mg ORAL - - docusate sodium 100 mg cap(s) (COLACE) 100 mg ORAL DAILY - B Complex-Vitamin C-Folic Acid 1 tablet tab(s) (MADDY-VIT) 1 tablet ORAL DAILY - [START ON 08/15/2019] midodrine 10 mg tab(s) (PROAMATINE) 10 mg ORAL BID 9A/1P - oxyCODONE IR 5 mg tab(s) (ROXICODONE) 5 mg ORAL q 4 H PRN - [START ON 08/15/2019] sevelamer carbonate 2,400 mg tab(s) (RENVELA) 2,400 mg ORAL TID before MEALS - albuterol HFA 90 mcg/actuation 2 Puff (PROVENTIL HFA, VENTOLIN HFA) 2 Puff INHALATION q 4 H PRN - heparin 5,000 Units injection 5,000 Units SUBCUTANEOUS q 12 H - NaCl 0.9% 2-10 mL 2-10 mL INTRAVENOUS q 12 H - acetaminophen 650 mg tab(s) (TYLENOL) 650 mg ORAL q 6 H PRN - benzocaine-menthoL 1 Lozenge (CEPACOL) 1 Lozenge MUCOUS MEMBRANE (TOPICAL MOUTH AND THROAT) q 2 H PRN - aluminum-magnesium hydroxide-simethicone 200-200-20 mg/5 mL 30 mL (MAALOX,MYLANTA,MAG-AL PLUS) 30 mL ORAL q 6 H PRN - morphine 4 mg injection 4 mg INTRAVENOUS q 3 H PRN - nitroglycerin sublingual 0.4 mg tab(s) (NITROQUICK) 0.4 mg SUBLINGUAL PRN - ondansetron (PF) 4 mg injection (ZOFRAN) 4 mg INTRAVENOUS q 6 H PRN - polyvinyl alcohol-povidone 1.4-0.6 % 1 Drop (REFRESH) 1 Drop BOTH EYES PRN - prochlorperazine 5 mg injection (COMPAZINE) 5 mg INTRAVENOUS q 4 H PRN - diphenhydrAMINE 25 mg (BENADRYL) 25 mg ORAL q 4 H PRN - guaiFENesin-dextromethorphan 100-10 mg/5 mL 10 mL oral liquid (ROBITUSSIN DM) 10 mL ORAL q 4 H PRN - Lip Protectant with Sunscreen SPF 15 1 application Stick (Blistex) 1 application TOPICAL PRN - sodium chloride 0.65 % 2 [place] (AYR, OCEAN) 2 [place] EACH NOSTRIL PRN - saliva substitute combo no.9 15 mL (BIOTENE mouthwash) 15 mL MUCOUS MEMBRANE (TOPICAL MOUTH AND THROAT) PRN Allergies As of Date: 08/14/2019 Allergen Noted Reaction CODEINE 08/14/2019 Intolerance PENICILLINS 10/14/2009 Unknown Fully Assessed 08/14/2019 COMPLETE REVIEW OF SYSTEMS: as per HPI Objective PHYSICAL EXAM: Physical Exam Performed: GENERAL: Alert, no distress, cooperative EYES: EOMI NECK: Supple LUNGS: Unlabored breathing on RA CARDIAC: Rate: normal ABDOMEN: Soft, nontender EXTREMITIES: MCKEON, LUE fistula with no obvious thrill NEURO: Grossly normal cognition, motor function, and cranial nerves III-XII PULSES: 2+ ulnar, 2+ radial BP 122/72 Pulse 61 Temp (Src) 98.4 (Oral) Resp 16 Ht 5' 0 (1.52m) Wt 153 lb (69.4kg) SpO2 100% BMI 29.88 kg/(m2). O2 Therapy: Room Air DATA: Diagnostic tests reviewed for today's visit: Most recent labs and imaging results. CBC, Coags, BMP, Mg, Phos Recent Labs 08/14/19 1200 WBC 9.49 HB 9.4* HCT 30.1* PLT 205 NA 138 K 5.4* CHLOR 105 CO2 25 BUN 63* CREAT 14.60* GLUC 92 CA 8.9 Liver Function, Amylase, AND Lipase Impression/Recommendations 58 year old female with thrombosis of transposed LUE brachiobasilic fistula and tunneled HD cath - Will exchange current HD cath in IR in am - Will hold morning SQH, no need for NPO - Will order vein mapping to evaluate for possible AV graft vs fistula in BUE - Continue medical management per primary Discussed with Dr Beena MD Vascular AND Thoracic Surgery Service Pager: For questions or concerns Tue-Tue 6a-5p please page [phone]. After 5pm and on Weekends and Holidays, please page [phone] if in ICU or [phone] if on RNF. SIGNATURE: Bárbara Tenorio MD PATIENT NAME: Cate Fox DATE: August 14, 2019 TIME: 6:48 PM PAGER: above Normal [facility] ED PROV NOTEon 08-14-2019 ED PROV NOTE HNO ID: [id number] Author: Desire Peralta DO Service: Emergency Medicine Author Type: Physician Type: ED Provider Notes Filed: 08/14/2019 2:02 PM Note Text: I performed a history and physical examination of the patient and discussed the management with the resident. I reviewed the resident's note and agree with the documented findings and plan of care. The patient is a 58-year-old female with a past medical history significant for end stage renal disease on hemodialysis Tuesday, Tuesday, Tuesday and . The patient has a clotted fistula is not working in her left upper extremity. She subsequently had a dialysis catheter placed in her left upper chest wall that is also clotted. The patient has missed her dialysis session yesterday. The patient was sent to the emergency department in order to have another catheter placed and undergo dialysis. The patient denies any chest pain, palpitations, diaphoresis, nausea or vomiting, shortness of breath, headache, numbness, weakness, or paresthesias. She presents ambulatory to the emergency department accompanied by her family. On exam, the patient is nontoxic in appearance. She states clearly and in full sentences. No respiratory distress. Heart is regular in rate and rhythm, S1 and S2 auscultated. Lungs clear auscultation bilaterally. The patient has a fistula in the left upper extremity. There is a dialysis catheter in the left upper chest wall. The plan is for the patient's labs including electrolytes to be checked. The patient will require inpatient hospitalization and likely dialysis catheter placement by interventional radiology and evaluation by nephrology for arrangements to be made for dialysis. On-call vascular surgery was contacted who reports that there is no need for emergent vascular intervention at this time. Desire Peralta DO 08/14/19 1402 Normal [facility] ED PROV NOTE HNO ID: [id number] Author: Desire Peralta DO Service: Emergency Medicine Author Type: Physician Type: ED Provider Notes Filed: 08/15/2019 9:31 PM Note Text: ED Provider Note Patient Name: Cate Fox SERVICE DATE: 08/14/19 History Patient presents with: Dialysis Access Request: Pt needs new dialysis access catheter placed in neck, clot formed in former one in left arm. Pt receives home dialysis Tuesday, Tuesday, Tuesday and . Missed dialysis Tuesday and Tuesday 36-year-old female with history of chronic renal failure, polycystic kidney disease, hypertension, hyperparathyroidism who presents to the ED with Dialysis concerns. Patient is dialysis 1 day, Tuesday, Tuesday, . Patient reports that she had a fistula in the left upper extremity, clot formed, she then got a catheter placed in the left upper chest wall, it is clotted as well. She's missed the last 2 dialysis, Tuesday and yesterday. Patient reports a little bit of shortness of breath and nausea. No vomiting, chest pain, fever, chills. PAST MEDICAL HISTORY Diagnosis Date - Anemia associated with chronic renal failure - Chronic renal failure - Hyperparathyroidism - Hypertension - Hypotension - Polycystic kidney disease PAST SURGICAL HISTORY Procedure Laterality Date - ARTERY-VEIN ANASTOMOSIS 02-10-10 RIGHT FOREARM - ARTERY-VEIN ANASTOMOSIS 04/02/10 RUE brachiobasilic AVF - CHOLECYSTECTOMY 2000 laproscopic - KIDNEY SURGERY HX removed - PAST SURGICAL HISTORY OF x 2 - REM LESION NEC,HAND,SCAL<0.5CM 06/02/13 Exc. scalp wens x 2 FAMILY HISTORY Problem Relation Age of Onset - None Mother 78yo - Genitourinary () Brother PKD/on dialysis- 53 yo - Genitourinary () Sister PKD 43yo - None Sister 57yo - None Son 17 yo - None Daughter 15yo - other (brain aneurysm [Other]) Father age 52 - other (polycystic disease [Other]) Other paternal cousins - Hypertension Father - Diabetes Maternal Grandmother Social History Tobacco Use - Smoking status: Never Smoker - Smokeless tobacco: Never Used Substance and Sexual Activity - Alcohol use: No - Drug use: No - Sexual activity: Not on file ALLERGIES Allergen Reactions - Codeine Intolerance Jittery and nauseous - Penicillins Unknown Too young to remember reaction. Review of Systems All other systems reviewed and are negative. Physical Exam BP 111/66 Pulse 67 Temp (Src) 97.9 (Oral) Resp 18 Ht 5' 0 (1.52m) Wt 149 lb 14.6 oz (68.0kg) SpO2 100% BMI 29.28 kg/(m2). O2 Therapy: Room Air Physical Exam Constitutional: Appearance: She is well-developed. HENT: Head: Normocephalic and atraumatic. Mouth/Throat: Mouth: Mucous membranes are moist. Pharynx: Oropharynx is clear. Eyes: Conjunctiva/sclera: Conjunctivae normal. Neck: Musculoskeletal: Normal range of motion and neck supple. Cardiovascular: Rate and Rhythm: Normal rate and regular rhythm. Heart sounds: Normal heart sounds. Pulmonary: Effort: Pulmonary effort is normal. Breath sounds: Normal breath sounds. Chest: Abdominal: General: Bowel sounds are normal. There is no distension. Palpations: Abdomen is soft. Tenderness: There is no abdominal tenderness. Musculoskeletal: Normal range of motion. Comments: Previous fistula site UE with ecchymosis. 2 wounds with sutures covered in gauze bandages. Skin: General: Skin is warm and dry. Neurological: Mental Status: She is alert and oriented to person, place, and time. Psychiatric: Behavior: Behavior normal. Thought Content: Thought content normal. Judgment: Judgment normal. Diagnostic Testing ED Labs Ordered and Reviewed BASIC METABOLIC PANEL (AK,AV,EU,FV,HL,OLLIE,MM,SP) - Abnormal; Notable for the following components: Result Value Ref Range Potassium 5.4 (*) 3.5 - 5.1 mEq/L BUN 63 (*) 7 - 18 mg/dL Creatinine 14.60 (*) 0.51 - 0.95 mg/dL All other components within normal limits CBC + AUTO DIFF (AK,AV,EU,FV,HL,OLLIE,MM,SP) - Abnormal; Notable for the following components: RBC 3.05 (*) 3.93 - 5.22 mil/cmm HGB 9.4 (*) 11.2 - 15.7 g/dL Hematocrit 30.1 (*) 34.1 - 44.9 % MCV 98.7 (*) 79.4 - 94.8 fl MCHC 31.2 (*) 31.6 - 34.8 % RDW-SD 51.8 (*) 36.4 - 46.3 fl Abs. Neut(Anc) 6.90 (*) 1.56 - 6.13 thou/cmm Abs. Eosin 0.46 (*) 0.00 - 0.31 thou/cmm All other components within normal limits MDRD GFR Procedures ED Course / Clinical Impression Clinical Impressions as of Aug 13 1556 Problem with dialysis access, initial encounter (HCC) Hyperkalemia MDM / Disposition / Plan 1355: 58-year-old female presents to the ED with problems getting dialysis. Patient has missed her last 2 dialysis, Tuesday and yesterday and she was instructed to present to the ED so that she can get new access. Discussed with Dr. Peralta. CBC, BMP, EKG obtained. BMP with K 5.4, BUN 63 and Cr 14.60. CBC with H/H 9.4/30.1, at baseline for patient. EKG with NSR rate 63, no peaked T waves, normal QRS and QTC. Page to [facility] for admission. 1528: Dr. Arcos accepts patient for admission at this time. 155: Discussed with Dr. 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 He reports he called multiple outpatient centers ([place], [facility], [facility]) to try and get patient in for a new tunneled catheter to be placed and no one would take her so he recommended she come to the ED for admission so she can get a new catheter/get dialyzed. SIGNATURE: VAL Cross) CONCEPCION Sorenson 08/14/19 1551 Marce Quintanilla) CONCEPCION Sorenson 08/14/19 1557 I performed a history and physical examination of the patient and discussed the management with the PA. I reviewed the PA's note and agree with the documented findings and plan of care. Desire Peralta, 08/15/19 2131 Normal [facility] HISTORY PHYSICALon 03-10-202 0 HISTORY PHYSICAL HNO ID: [id number] Author: Emanuel Ferrari Service: Hospital Medicine Author Type: Physician Type: HANDP Filed: 08/14/2019 7:11 PM Note Text: DEPARTMENT OF HOSPITAL MEDICINE [facility] HISTORY AND PHYSICAL EXAMINATION SERVICE DATE: 08/14/2019 7:03 PM PRIMARY CARE PHYSICIAN: Rohit Horan DO CHIEF COMPLAINT: Thrombosed AV fistula and nonfunctioning tunneled dialysis catheter HPI: This is a 58 year old female who presents with lack of dialysis for 6 days. She normally does home dialysis through left arm AV fistula that she's had since 2015 without any significant problems. This past Tuesday she noted that she could no longer feel a good thrill, had unsuccessful dialysis access at home, also went to the dialysis center based on instructions and had unsuccessful dialysis access by staff. Interventional radiology in [place] attempted to perform thrombectomy in the AV fistula on Tuesday, but was unsuccessful, so a tunneled dialysis catheter was placed in the left IJ. Dialysis was performed successfully on Tuesday, but on Tuesday dialysis was not able to be performed through the tunneled IJ catheter. TPA instillation by dialysis Center staff was also unsuccessful. It's not clear if any intervention was supposed Colace yesterday, the patient was instructed to come to the ED today for replacement of the tunneled dialysis catheter. She has an appointment with her vascular surgeon in [place] for of this week. FUNCTIONAL STATUS: Independent PAST MEDICAL HISTORY Diagnosis Date - Anemia associated with chronic renal failure - Chronic renal failure - ESRD on hemodialysis (HCC) - Hyperparathyroidism - Hypertension - Hypotension - Polycystic kidney disease PAST SURGICAL HISTORY Procedure Laterality Date - ARTERY-VEIN ANASTOMOSIS 02-10-10 RIGHT FOREARM - ARTERY-VEIN ANASTOMOSIS 04/02/10 RUE brachiobasilic AVF - CHOLECYSTECTOMY 2000 laproscopic - KIDNEY SURGERY HX removed - PAST SURGICAL HISTORY OF x 2 - REM LESION NEC,HAND,SCAL<0.5CM 06/02/13 Exc. scalp wens x 2 FAMILY HISTORY: No significant family history known to patient Social History Tobacco Use - Smoking status: Never Smoker - Smokeless tobacco: Never Used Substance Use Topics - Alcohol use: No - Drug use: No MEDICATIONS Please see reconciled medication list in Epic for details on home medications. ALLERGIES Allergen Reactions - Codeine Intolerance Jittery and nauseous - Penicillins Unknown Too young to remember reaction. COMPLETE REVIEW OF SYSTEMS: PAIN ASSESSMENT: Negative for pain, history of chronic pain, or current treatment for a chronic pain condition. GENERAL: Fatigue HEENT: Negative for frequent or significant headaches, No changes in hearing or vision, no nose bleeds or other nasal problems NECK: Negative for lumps, goiter, pain and significant neck swelling RESPIRATORY: Negative for cough, hemoptysis, wheezing, COPD, dyspnea or shortness of breath CARDIOVASCULAR: Negative for chest pain, leg swelling, hypertension, CHF or palpitations GI: No nausea, vomiting, or diarrhea : No history of dysuria, frequency or incontinence MUSCULOSKELETAL: Negative for joint pain or swelling, back pain or muscle pain SKIN: Negative for lesions, rash, and itching PSYCH: Negative for sleep disturbance, mood disorder and recent psychosocial stressors HEMATOLOGY/LYMPHOLOGY: Negative for prolonged bleeding, bruising easily or swollen nodes ENDOCRINE: Negative for cold or heat intolerance, polyuria, polydipsia and goiter NEURO: No history of headaches, syncope, paralysis, seizures or tremors PHYSICAL EXAM: GENERAL: Alert, no distress, cooperative SKIN: Skin color, texture, turgor normal. No rashes or lesions. Area around the left upper arm AV fistula without erythema, there is some ecchymosis surrounding the area that appears aged. Area around the left IJ tunneled catheter site without erythema HEAD/SINUSES: No significant findings EYES: PERRLA, EOMI OROPHARYNX: Lips, mucosa, and tongue normal. Teeth and gums normal. Oropharynx normal. NECK: No jugulovenous distention, No carotid bruits, Carotid pulse normal contour, Supple LUNGS: Lungs clear to auscultation, Good diaphragmatic excursion CARDIAC: Normal S1 and S2; no rubs, murmurs, or gallops ABDOMEN: Abdomen soft, non-tender, BS normal, No masses or organomegaly EXTREMITIES: Extremities normal, no deformities, edema, clubbing or skin discoloration. Good capillary refill., No ulcers NEURO: Grossly normal cognition, motor function, and cranial nerves III-XII PULSES: 2+ radial, 2+ dorsalis pedis, 2+ carotid, left arm AV fistula with slight pulsation, no thrill Patient Vitals for the past 24 hrs: BP Temp Temp src Pulse Resp SpO2 Height Weight 08/14/19 1800 122/72 36.9 ?C (98.4 ?F) Oral 61 16 100 % 152.4 cm (5') 69.4 kg (153 lb) 08/14/19 1700 109/70 ? ? 65 16 100 % ? ? 08/14/19 1600 102/69 ? ? 65 15 100 % ? ? 08/14/19 1500 111/66 ? ? 67 18 100 % ? ? 08/14/19 1400 119/55 ? ? 61 16 100 % ? ? 08/14/19 1300 118/54 ? ? 66 16 100 % ? ? 08/14/19 1201 122/74 ? ? 61 14 100 % ? ? 08/14/19 1037 139/76 36.6 ?C (97.9 ?F) Oral 69 18 100 % 152.4 cm (5') 68 kg (149 lb 14.6 oz) Body mass index is 29.88 kg/m?. ASSESSMENT AND PLAN Principal Problem: AV fistula thrombosis (HCC) POA: Yes Assessment AND Plan: Admit for urgent replacement of tunneled dialysis catheter and resumption of hemodialysis. Vascular surgery consultation as well to see if there are any urgent interventions should be undertaken. Active Problems: Polycystic kidney disease POA: Yes Assessment AND Plan: Status post bilateral nephrectomy ESRD on hemodialysis (HCC) POA: Yes Assessment AND Plan: As above, await resumption of dialysis access is obtained Vascular catheter dysfunction (HCC) POA: Yes Assessment AND Plan: TPA was unsuccessful at outlying dialysis facility several days ago Resolved Problems: * No resolved hospital problems. * Advanced Care Planning Purpose of Encounter: Advanced care planning in light of AV fistula thrombosis (HCC) Parties in Attendance: Patient, Dr. Emanuel Ferrari MD Decisional Capacity: Full Code Status: Line Mover Spent on Advance Care Plannin minutes Disposition: Home Total time 30 minutes during this encounter, including chart review, discussion with nursing staff and/or other providers, documentation, enrobing machine corder, and [id number] time with patient. Plan of care discussed with: Provider, RN, Patient and [facility] Room Physician VTE Prophylaxis: Heparin 5000 units Sub Q BID Diagnostic tests reviewed for today's visit: Most recent labs and imaging results. LABS CBC: Recent Labs 08/14/19 1200 WBC 9.49 HB 9.4* PLT 205 CMP: Recent Labs 08/14/19 1200 NA 138 K 5.4* CHLOR 105 CO2 25 BUN 63* CREAT 14.60* GLUC 92 CA 8.9 SIGNATURE: Emanuel Ferrari MD PATIENT NAME: Cate Fox DATE: August 14, 2019 TIME: 7:03 PM PAGER #: Primary Service NIGHT AND WEEKEND COVERAGE: After 7pm please page [phone] Normal [facility] HOSPon 08-14-2019 HOSP Patient:Li Fox MRN: Height:5' 0(1.524 m) Weight:153 lb (69.4 kg) Outpatient Medications as of 08/15/19: allopurinol (ZYLOPRIM) 100 mg tablet docusate sodium (COLACE) 100 mg capsule MADDY-BRIAN 0.8 mg tab midodrine (PROAMATINE) 10 mg tablet ondansetron orally disintegrating (ZOFRAN ODT) 4 mg disintegrating tablet oxyCODONE IR (ROXICODONE) 5 mg immediate release tablet sevelamer carbonate (RENVELA) 800 mg tablet albuterol HFA (PROVENTIL HFA, VENTOLIN HFA) 90 mcg/actuation inhaler Admission/Clinic Administered Medications as of 08/15/19: allopurinol 100 mg tab(s) (ZYLOPRIM) docusate sodium 100 mg cap(s) (COLACE) midodrine 10 mg tab(s) (PROAMATINE) oxyCODONE IR 5 mg tab(s) (ROXICODONE) sevelamer carbonate 2,400 mg tab(s) (RENVELA) albuterol HFA 90 mcg/actuation 2 Puff (PROVENTIL HFA, VENTOLIN HFA) heparin 5,000 Units injection NaCl 0.9% 2-10 mL acetaminophen 650 mg tab(s) (TYLENOL) benzocaine-menthoL 1 Lozenge (CEPACOL) aluminum-magnesium hydroxide-simethicone 200-200-20 mg/5 mL 30 mL (MAALOX,MYLANTA,MAG-AL PLUS) morphine 4 mg injection nitroglycerin sublingual 0.4 mg tab(s) (NITROQUICK) ondansetron (PF) 4 mg injection (ZOFRAN) polyvinyl alcohol-povidone 1.4-0.6 % 1 Drop (REFRESH) prochlorperazine 5 mg injection (COMPAZINE) diphenhydrAMINE 25 mg (BENADRYL) guaiFENesin-dextromethorphan 100-10 mg/5 mL 10 mL oral liquid (ROBITUSSIN DM) Lip Protectant with Sunscreen SPF 15 1 application Stick (Blistex) sodium chloride 0.65 % 2 [place] (AYR, OCEAN) saliva substitute combo no.9 15 mL (BIOTENE mouthwash) b complex, c, folic acid 1 mg renal vitamins 1 capsule (NEPHROCAPS) Problem List: Chronic renal failure [N18.9] Polycystic kidney disease [Q61.3] Mechanical complication of other vascular device, implant, and graft [T82.598A] 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) [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] Hyperhomocysteinemia (HCC) [E72.11] Sebaceous cyst [L72.3] ESRD on hemodialysis (HCC) [N18.6, Z99.2] AV fistula thrombosis (HCC) [T82.868A] Vascular catheter dysfunction (HCC) [T82.41XA] Allergies: Codeine Penicillins Date Verified: 08/15/19 Lab Values Lab Value Units Date High Low POTA* 6.0 mEq/L 08/15/2019 5.1 3.5 ASAF* 30.1 % 08/14/2019 44.9 34.1 Progress Notes (): Marce Sorenson PA-C, CONCEPCION 08/14/2019 3:57 PM Cosign Needed ED Provider Note Patient Name: Cate Fox SERVICE DATE: 08/14/19 History Patient presents with: Dialysis Access Request: Pt needs new dialysis access catheter placed in neck, clot formed in former one in left arm. Pt receives home dialysis Tuesday, Tuesday, Tuesday and . Missed dialysis Tuesday and Tuesday 36-year-old female with history of chronic renal failure, polycystic kidney disease, hypertension, hyperparathyroidism who presents to the ED with Dialysis concerns. Patient is dialysis 1 day, Tuesday, Tuesday, . Patient reports that she had a fistula in the left upper extremity, clot formed, she then got a catheter placed in the left upper chest wall, it is clotted as well. She's missed the last 2 dialysis, Tuesday and yester. Patient reports a little bit of shortness of breath and nausea. No vomiting, chest pain, fever, chills. PAST MEDICAL HISTORY Diagnosis Date - Anemia associated with chronic renal failure - Chronic renal failure - Hyperparathyroidism - Hypertension - Hypotension - Polycystic kidney disease PAST SURGICAL HISTORY Procedure Laterality Date - ARTERY-VEIN ANASTOMOSIS 02-10-10 RIGHT FOREARM - ARTERY-VEIN ANASTOMOSIS 04/02/10 RUE brachiobasilic AVF - CHOLECYSTECTOMY 2000 laproscopic - KIDNEY SURGERY HX removed - PAST SURGICAL HISTORY OF x 2 - REM LESION NEC,HAND,SCAL<0.5CM 06/02/13 Exc. scalp wens x 2 FAMILY HISTORY Problem Relation Age of Onset - None Mother 78yo - Genitourinary () Brother PKD/on dialysis- 53 yo - Genitourinary () Sister PKD 43yo - None Sister 57yo - None Son 17 yo - None Daughter 15yo - other (brain aneurysm [Other]) Father age 52 - other (polycystic disease [Other]) Other paternal cousins - Hypertension Father - Diabetes Maternal Grandmother Social History Tobacco Use - Smoking status: Never Smoker - Smokeless tobacco: Never Used Substance and Sexual Activity - Alcohol use: No - Drug use: No - Sexual activity: Not on file ALLERGIES Allergen Reactions - Codeine Intolerance Jittery and nauseous - Penicillins Unknown Too young to remember reaction. Review of Systems All other systems reviewed and are negative. Physical Exam BP 111/66 Pulse 67 Temp (Src) 97.9 (Oral) Resp 18 Ht 5' 0 (1.52m) Wt 149 lb 14.6 oz (68.0kg) SpO2 100% BMI 29.28 kg/(m2). O2 Therapy: Room Air Physical Exam Constitutional: Appearance: She is well-developed. HENT: Head: Normocephalic and atraumatic. Mouth/Throat: Mouth: Mucous membranes are moist. Pharynx: Oropharynx is clear. Eyes: Conjunctiva/sclera: Conjunctivae normal. Neck: Musculoskeletal: Normal range of motion and neck supple. Cardiovascular: Rate and Rhythm: Normal rate and regular rhythm. Heart sounds: Normal heart sounds. Pulmonary: Effort: Pulmonary effort is normal. Breath sounds: Normal breath sounds. Chest: Abdominal: General: Bowel sounds are normal. There is no distension. Palpations: Abdomen is soft. Tenderness: There is no abdominal tenderness. Musculoskeletal: Normal range of motion. Comments: Previous fistula site UE with ecchymosis. 2 wounds with sutures covered in gauze bandages. Skin: General: Skin is warm and dry. Neurological: Mental Status: She is alert and oriented to person, place, and time. Psychiatric: Behavior: Behavior normal. Thought Content: Thought content normal. Judgment: Judgment normal. Diagnostic Testing ED Labs Ordered and Reviewed BASIC METABOLIC PANEL (AK,AV,EU,FV,HL,OLLIE,MM,SP) - Abnormal; Notable for the following components: Result Value Ref Range Potassium 5.4 (*) 3.5 - 5.1 mEq/L BUN 63 (*) 7 - 18 mg/dL Creatinine 14.60 (*) 0.51 - 0.95 mg/dL All other components within normal limits CBC + AUTO DIFF (AK,AV,EU,FV,HL,OLLIE,MM,SP) - Abnormal; Notable for the following components: RBC 3.05 (*) 3.93 - 5.22 mil/cmm HGB 9.4 (*) 11.2 - 15.7 g/dL Hematocrit 30.1 (*) 34.1 - 44.9 % MCV 98.7 (*) 79.4 - 94.8 fl MCHC 31.2 (*) 31.6 - 34.8 % RDW-SD 51.8 (*) 36.4 - 46.3 fl Abs. Neut(Anc) 6.90 (*) 1.56 - 6.13 thou/cmm Abs. Eosin 0.46 (*) 0.00 - 0.31 thou/cmm All other components within normal limits MDRD GFR Procedures ED Course / Clinical Impression Clinical Impressions as of Aug 13 1556 Problem with dialysis access, initial encounter (HCC) Hyperkalemia MDM / Disposition / Plan 1355: 58-year-old female presents to the ED with problems getting dialysis. Patient has missed her last 2 dialysis, Tuesday and yesterday and she was instructed to present to the ED so that she can get new access. Discussed with Dr. Peralta. CBC, BMP, EKG obtained. BMP with K 5.4, BUN 63 and Cr 14.60. CBC with H/H 9.4/30.1, at baseline for patient. EKG with NSR rate 63, no peaked T waves, normal QRS and QTC. Page to [facility] for admission. 1528: Dr. Arcos accepts patient for admission at this time. 1555: Discussed with Dr. 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 He reports he called multiple outpatient centers ([facility], [facility], [place]) to try and get patient in for a new tunneled catheter to be placed and no one would take her so he recommended she come to the ED for admission so she can get a new catheter/get dialyzed. SIGNATURE: VAL Cross) CONCEPCION Sorenson 08/14/19 1551 Marce Quintanilla) CONCEPCION Sorenson 08/14/19 1557 Previous Version Desire Peralta DO, DO 08/14/2019 2:02 PM Signed I performed a history and physical examination of the patient and discussed the management with the resident. I reviewed the resident's note and agree with the documented findings and plan of care. The patient is a 58-year-old female with a past medical history significant for end stage renal disease on hemodialysis Tuesday, Tuesday, Tuesday and . The patient has a clotted fistula is not working in her left upper extremity. She subsequently had a dialysis catheter placed in her left upper chest wall that is also clotted. The patient has missed her dialysis session yesterday. The patient was sent to the emergency department in order to have another catheter placed and undergo dialysis. The patient denies any chest pain, palpitations, diaphoresis, nausea or vomiting, shortness of breath, headache, numbness, weakness, or paresthesias. She presents ambulatory to the emergency department accompanied by her family. On exam, the patient is nontoxic in appearance. She states clearly and in full sentences. No respiratory distress. Heart is regular in rate and rhythm, S1 and S2 auscultated. Lungs clear auscultation bilaterally. The patient has a fistula in the left upper extremity. There is a dialysis catheter in the left upper chest wall. The plan is for the patient's labs including electrolytes to be checked. The patient will require inpatient hospitalization and likely dialysis catheter placement by interventional radiology and evaluation by nephrology for arrangements to be made for dialysis. On-call vascular surgery was contacted who reports that there is no need for emergent vascular intervention at this time. Desire Peralta DO 08/14/19 1402 GIAN Ann 08/14/2019 4:15 PM Signed CARE MANAGEMENT: ASSESSMENT AND DISCHARGE PLAN SERVICE DATE: August 14, 2019 SERVICE TIME: 4:12 PM PRIMARY CARE PHYSICIAN: Rohit Horan DO ADMISSION STATUS: Emergency Needs Prior to Discharge: To Be Determined MEDICAL: MEDICARE A AND B Health Insurance: Medicare Health Issues Impacting Discharge Plan: Newly diagnosed Newly Diagnosed: Problems with Dialysis Cath. Last Discharge Date: N/A Is this Within the Past 30 days? Last discharge within 30 days: No Advance Directive: Current Advance Directive: Health Care Power of Diabetes Nurse;Living Will In Chart: No Bag Repairer Attempted to Assist with AD Completion: Yes Action: Patient Unwilling Health LiteracyHow often do you need to have someone help you when you read instructions, pamphlets, or other written material from your doctor or pharmacy? : 1 - Never How confident are you filling out medical forms by yourself?: 1 - Extremely If Patient scores > 3 on either question, the following interventions were put into place:: Patient did not score > 3 on either question. Baseline Mental Status Prior to this Illness what was the patient's Baseline Mental Status?: Alert AND Oriented Prior to this illness, has anyone described the patient having any of the following behaviors?: Not Applicable Relationship of the informant to the patient:: Self Functional Status: Independent Does Patient Currently Receive Any Community Services or Home Care?: None Equipment Prior to Admission: Other: See Comment(Hoem Dailysis ) SOCIAL: Living Arrangements: Home Lives With: Spouse Financial Resources: UnemployedPrimary Contact: Extended Emergency Contact Information Primary Emergency Contact: EMERY FOX Address: [address] [place] [address] Mobile Relation: Spouse Supportive Patient Contact:: Yes Contact Resources: Family Social Needs Food insecurity Worry: Not on file Inability: Not on file Resources Needed: No Social Needs Financial resource strain: Not on file Social Needs Transportation needs Medical: Not on file Non-medical: Not on file Caregiver AssessmentCaregiver is ready, willing and able to meet the patient's needs as recommended by the inter-professional team:: Yes Does the patient have an acute stroke diagnosis, or has the patient had a stroke during this admission?: No Patient's transition needs and plan for meeting these needs: Plan to discharge home with no needs Patient's perception of need for this admission: Medication Adherance I am convinced of the importance of my prescription medication: 0 - Agree Completely I worry that my prescription medication will do more harm than good to me : 0 - Disagree Completely I feel financially burdened by my [id number] expenses for my prescription medication:: 0 - Disagree Completely Risk Score: 0 Patient is categorized as: Low risk < 2 Are you interested in bedside delivery of your medications? No Is Patient Psychosocially Complex?: No ASSESSMENT AND PLAN: Medical Needs: Medical Needs: Two or more chronic diseases Psychosocial Needs: Psychosocial Needs: None FREEDOM OF CHOICE EXPLAINED: [place] of Choice Given: Yes Level of Care Discussed: Home Care Financial Disclosure Provided: Yes Financial Disclosure Comments: Informed of [facility] connected facilities POTENTIAL TRANSITION PLANS Home Patient reports living at home with her and reports being able to ambulate independent. Patient reports doing in- home dialysis 4 times a week. Patient reports having Rx coverage, and expressed no issues affording medications. Patient reports no history of psychosocial issues. Patient reports having no mobility issues. Plan for patient to discharge home when medically ready. SW will continue to follow clinical course. SIGNATURE: GIAN Ann PATIENT NAME: Cate Fox DATE: August 14, 2019 TIME: 4:12 PM PAGER/CONTACT #: [phone] Lindsey Khanna (Hunting Sales Associate) 08/14/2019 4:23 PM Signed MEDICATION HISTORY Patient Name:Mai Fox : 1960 Source of history:Patient: Reliability of source: Appears reliable, clearly identified: Medication name, Medication dose, Medication route and Medication frequency, Pharmacy records: [facility] [phone], [facility] [phone] and [facility] [phone] and [facility] records Medication Nonadherence Identified: No barriers noted The above information represents the best possible medication history: Yes Additional comments: [id number] Medication List Adjustments: Medication Regimen Changes: Verified medication information with patient, pharmacy and chart review. Removed duplicate albuterol entry from med list. Medications Added: Medications Removed: albuterol HFA (PROAIR HFA) 90 mcg/actuation inhaler Duplicate Entry Short-Term Medications: Further Clarification Required: Patient is a 30 day readmission: No Patient Interested in Bedside Delivery: No Time Spent Reviewing Patient's Medications: 45 minutes Allergies: ALLERGIES Allergen Reactions - Codeine Intolerance Jittery and nauseous - Penicillins Unknown Too young to remember reaction. Preferred Pharmacy: [facility] [phone] Current OFFAL BALER Medications: Prior to Admission medications as of 08/14/19 1440 Medication Sig Last Dose Taking allopurinol (ZYLOPRIM) 100 mg tablet Take 100 mg by mouth. Tuesday Yes docusate sodium (COLACE) 100 mg capsule Take 100 mg by mouth once daily. Yes MADDY-BRIAN 0.8 mg tab Take 1 tablet by mouth once daily. Yes midodrine (PROAMATINE) 10 mg tablet Take 10 mg by mouth. Prior to dialysis and half way through dialysis Yes ondansetron orally disintegrating (ZOFRAN ODT) 4 mg disintegrating tablet Take 4 mg by mouth as needed. Yes oxyCODONE IR (ROXICODONE) 5 mg immediate release tablet Take 5 mg by mouth as needed. q6 hours prn Yes sevelamer carbonate (RENVELA) 800 mg tablet Take by mouth three times daily. 3 pills per meal and 1 for snack Yes ALBUTEROL 90 MCG/ACTUATION AEROSOL INHALER Inhale one(1) - two(2) puffs four(4) times a day as needed for wheezing and shortness of breath. Yes Lindsey Khanna (SchoolOut) [id number] August 14, 2019 4:16 PM Bárbara Tenorio MD 08/15/2019 1:22 AM Cosign Needed CONSULT: VASCULAR SURGERY SERVICE SERVICE DATE: 08/14/2019 SERVICE TIME: 6:45 PM REASON FOR CONSULT: Fistula eval after thrombosis REQUESTING PHYSICIAN: Dr Ferrari PRIMARY CARE PHYSICIAN: DO David Peace Ms. Fox is a 58 year old female with polycystic kidney disease, bilateral nephrectomies, sami who presents for difficulty with access during dialysis. Patient had a L AV fistula placed early 2016 at outside hospital. In 2018, she had a fistulogram with balloon plasty of stenotic segment of her fistula and she had no issues until this last Wed during dialysis. Patient was unable to be accessed and was seen on Tuesday for possible declot by IR, unfortunately only some of the clot was removed at the time. Patient had a tunneled HD line placed and she underwent dialysis on Tuesday, but on Tuesday her catheter was unable to draw back as well despite attempted flushes with antithrombotics through catheter. Patient was admitted to medical service for new dialysis catheter placement and new fistula vs graft. Patient had prior attempts at AV Fistulas in her lower and upper RUE that failed in the past. She is on kidney transplant list. She does not take any blood thinners. PAST MEDICAL HISTORY Diagnosis Date - Anemia associated with chronic renal failure - Chronic renal failure - ESRD on hemodialysis (HCC) - Hyperparathyroidism - Hypertension - Hypotension - Polycystic kidney disease PAST SURGICAL HISTORY Procedure Laterality Date - ARTERY-VEIN ANASTOMOSIS 02-10-10 RIGHT FOREARM - ARTERY-VEIN ANASTOMOSIS 04/02/10 RUE brachiobasilic AVF - CHOLECYSTECTOMY 2000 laproscopic - KIDNEY SURGERY HX removed - PAST SURGICAL HISTORY OF x 2 - REM LESION NEC,HAND,SCAL<0.5CM 06/02/13 Exc. scalp wens x 2 FAMILY HISTORY Problem Relation Age of Onset - Hypertension Father - other (brain aneurysm) Father age 52 - None Mother 78yo - Genitourinary () Brother PKD/on dialysis- 53 yo - Genitourinary () Sister PKD 43yo - None Sister 57yo - None Son 17 yo - None Daughter 15yo - other (polycystic disease) Other paternal cousins - Diabetes Maternal Grandmother Social History Tobacco Use - Smoking status: Never Smoker - Smokeless tobacco: Never Used Substance Use Topics - Alcohol use: No - Drug use: No allopurinol (ZYLOPRIM) 100 mg tablet, Take 100 mg by mouth. Tuesday, Disp: , Rfl: docusate sodium (COLACE) 100 mg capsule, Take 100 mg by mouth once daily., Disp: , Rfl: MADDY-BRIAN 0.8 mg tab, Take 1 tablet by mouth once daily., Disp: , Rfl: midodrine (PROAMATINE) 10 mg tablet, Take 10 mg by mouth. Prior to dialysis and half way through dialysis, Disp: , Rfl: ondansetron orally disintegrating (ZOFRAN ODT) 4 mg disintegrating tablet, Take 4 mg by mouth as needed., Disp: , Rfl: oxyCODONE IR (ROXICODONE) 5 mg immediate release tablet, Take 5 mg by mouth as needed. q6 hours prn, Disp: , Rfl: sevelamer carbonate (RENVELA) 800 mg tablet, Take by mouth three times daily. 3 pills per meal and 1 for snack, Disp: , Rfl: albuterol HFA (PROVENTIL HFA, VENTOLIN HFA) 90 mcg/actuation inhaler, Inhale 2 Puffs as instructed every 4 hours as needed for Wheezing/Shortness of Breath., Disp: , Rfl: Current Facility-Administered Medications Medication Dose Route Frequency - [START ON 08/15/2019] allopurinol 100 mg tab(s) (ZYLOPRIM) 100 mg ORAL MO-- - docusate sodium 100 mg cap(s) (COLACE) 100 mg ORAL DAILY - B Complex-Vitamin C-Folic Acid 1 tablet tab(s) (MADDY-VIT) 1 tablet ORAL DAILY - [START ON 08/15/2019] midodrine 10 mg tab(s) (PROAMATINE) 10 mg ORAL BID 9A/1P - oxyCODONE IR 5 mg tab(s) (ROXICODONE) 5 mg ORAL q 4 H PRN - [START ON 08/15/2019] sevelamer carbonate 2,400 mg tab(s) (RENVELA) 2,400 mg ORAL TID before MEALS - albuterol HFA 90 mcg/actuation 2 Puff (PROVENTIL HFA, VENTOLIN HFA) 2 Puff INHALATION q 4 H PRN - heparin 5,000 Units injection 5,000 Units SUBCUTANEOUS q 12 H - NaCl 0.9% 2-10 mL 2-10 mL INTRAVENOUS q 12 H - acetaminophen 650 mg tab(s) (TYLENOL) 650 mg ORAL q 6 H PRN - benzocaine-menthoL 1 Lozenge (CEPACOL) 1 Lozenge MUCOUS MEMBRANE (TOPICAL MOUTH AND THROAT) q 2 H PRN - aluminum-magnesium hydroxide-simethicone 200-200-20 mg/5 mL 30 mL (MAALOX,MYLANTA,MAG-AL PLUS) 30 mL ORAL q 6 H PRN - morphine 4 mg injection 4 mg INTRAVENOUS q 3 H PRN - nitroglycerin sublingual 0.4 mg tab(s) (NITROQUICK) 0.4 mg SUBLINGUAL PRN - ondansetron (PF) 4 mg injection (ZOFRAN) 4 mg INTRAVENOUS q 6 H PRN - polyvinyl alcohol-povidone 1.4-0.6 % 1 Drop (REFRESH) 1 Drop BOTH EYES PRN - prochlorperazine 5 mg injection (COMPAZINE) 5 mg INTRAVENOUS q 4 H PRN - diphenhydrAMINE 25 mg (BENADRYL) 25 mg ORAL q 4 H PRN - guaiFENesin-dextromethorphan 100-10 mg/5 mL 10 mL oral liquid (ROBITUSSIN DM) 10 mL ORAL q 4 H PRN - Lip Protectant with Sunscreen SPF 15 1 application Stick (Blistex) 1 application TOPICAL PRN - sodium chloride 0.65 % 2 Cl[place] (AYR, OCEAN) 2 [place] EACH NOSTRIL PRN - saliva substitute combo no.9 15 mL (BIOTENE mouthwash) 15 mL MUCOUS MEMBRANE (TOPICAL MOUTH AND THROAT) PRN Allergies As of Date: 08/14/2019 Allergen Noted Reaction CODEINE 08/14/2019 Intolerance PENICILLINS 10/14/2009 Unknown Fully Assessed 08/14/2019 COMPLETE REVIEW OF SYSTEMS: as per HPI Objective PHYSICAL EXAM: Physical Exam Performed: GENERAL: Alert, no distress, cooperative EYES: EOMI NECK: Supple LUNGS: Unlabored breathing on RA CARDIAC: Rate: normal ABDOMEN: Soft, nontender EXTREMITIES: MCKEON, LUE fistula with no obvious thrill NEURO: Grossly normal cognition, motor function, and cranial nerves III-XII PULSES: 2+ ulnar, 2+ radial BP 122/72 Pulse 61 Temp (Src) 98.4 (Oral) Resp 16 Ht 5' 0 (1.52m) Wt 153 lb (69.4kg) SpO2 100% BMI 29.88 kg/(m2). O2 Therapy: Room Air DATA: Diagnostic tests reviewed for today's visit: Most recent labs and imaging results. CBC, Coags, BMP, Mg, Phos Recent Labs 08/14/19 1200 WBC 9.49 HB 9.4* HCT 30.1* PLT 205 NA 138 K 5.4* CHLOR 105 CO2 25 BUN 63* CREAT 14.60* GLUC 92 CA 8.9 Liver Function, Amylase, AND Lipase Impression/Recommendations 58 year old female with thrombosis of transposed LUE brachiobasilic fistula and tunneled HD cath - Will exchange current HD cath in IR in am - Will hold morning SQH, no need for NPO - Will order vein mapping to evaluate for possible AV graft vs fistula in BUE - Continue medical management per primary Discussed with Dr Beena MD Vascular AND Thoracic Surgery Service Pager: For questions or concerns Tue-Tue 6a-5p please page [phone]. After 5pm and on Weekends and Holidays, please page [phone] if in ICU or [phone] if on RNF. SIGNATURE: Bárbara Tenorio MD PATIENT NAME: Cate Fxo DATE: August 14, 2019 TIME: 6:48 PM PAGER: above Emanuel Ferrari MD 08/14/2019 7:11 PM Signed [facility] MEDIC[facility] HISTORY AND PHYSICAL EXAMINATION SERVICE DATE: 08/14/2019 7:03 PM PRIMARY CARE PHYSICIAN: Rohit Horan DO CHIEF COMPLAINT: Thrombosed AV fistula and nonfunctioning tunneled dialysis catheter HPI: This is a 58 year old female who presents with lack of dialysis for 6 days. She normally does home dialysis through left arm AV fistula that she's had since 2016 without any significant problems. This past Tuesday she noted that she could no longer feel a good thrill, had unsuccessful dialysis access at home, also went to the dialysis center based on instructions and had unsuccessful dialysis access by staff. Interventional radiology in [place] attempted to perform thrombectomy in the AV fistula on Tuesday, but was unsuccessful, so a tunneled dialysis catheter was placed in the left IJ. Dialysis was performed successfully on Tuesday, but on Tuesday dialysis was not able to be performed through the tunneled IJ catheter. TPA instillation by dialysis Center staff wasalso unsuccessful. It's not clear if any intervention was supposed Colace yesterday, the patient was instructed to come to the ED today for replacement of the tunneled dialysis catheter. She has an appointment with her vascular surgeon in [place] for of this week. FUNCTIONAL STATUS: Independent PAST MEDICAL HISTORY Diagnosis Date - Anemia associated with chronic renal failure - Chronic renal failure - ESRD on hemodialysis (HCC) - Hyperparathyroidism - Hypertension - Hypotension - Polycystic kidney disease PAST SURGICAL HISTORY Procedure Laterality Date - ARTERY-VEIN ANASTOMOSIS 02-10-10 RIGHT FOREARM - ARTERY-VEIN ANASTOMOSIS 04/02/10 RUE brachiobasilic AVF - CHOLECYSTECTOMY 2000 laproscopic - KIDNEY SURGERY HX removed - PAST SURGICAL HISTORY OF x 2 - REM LESION NEC,HAND,SCAL<0.5CM 06/02/13 Exc. scalp wens x 2 FAMILY HISTORY: No significant family history known to patient Social History Tobacco Use - Smoking status: Never Smoker - Smokeless tobacco: Never Used Substance Use Topics - Alcohol use: No - Drug use: No MEDICATIONS Please see reconciled medication list in [employer] for details on home medications. ALLERGIES Allergen Reactions - Codeine Intolerance Jittery and nauseous - Penicillins Unknown Too young to remember reaction. COMPLETE REVIEW OF SYSTEMS: PAIN ASSESSMENT: Negative for pain, history of chronic pain, or current treatment for a chronic pain condition. GENERAL: Fatigue HEENT: Negative for frequent or significant headaches, No changes in hearing or vision, no nose bleeds or other nasal problems NECK: Negative for lumps, goiter, pain and significant neck swelling RESPIRATORY: Negative for cough, hemoptysis, wheezing, COPD, dyspnea or shortness of breath CARDIOVASCULAR: Negative for chest pain, leg swelling, hypertension, CHF or palpitations GI: No nausea, vomiting, or diarrhea : No history of dysuria, frequency or incontinence MUSCULOSKELETAL: Negative for joint pain or swelling, back pain or muscle pain SKIN: Negative for lesions, rash, and itching PSYCH: Negative for sleep disturbance, mood disorder and recent psychosocial stressors HEMATOLOGY/LYMPHOLOGY: Negative for prolonged bleeding, bruising easily or swollen nodes ENDOCRINE: Negative for cold or heat intolerance, polyuria, polydipsia and goiter NEURO: No history of headaches, syncope, paralysis, seizures or tremors PHYSICAL EXAM: GENERAL: Alert, no distress, cooperative SKIN: Skin color, texture, turgor normal. No rashes or lesions. Area around the left upper arm AV fistula without erythema, there is some ecchymosis surrounding the area that appears aged. Area around the left IJ tunneled catheter site without erythema HEAD/SINUSES: No significant findings EYES: PERRLA, EOMI OROPHARYNX: Lips, mucosa, and tongue normal. Teeth and gums normal. Oropharynx normal. NECK: No jugulovenous distention, No carotid bruits, Carotid pulse normal contour, Supple LUNGS: Lungs clear to auscultation, Good diaphragmatic excursion CARDIAC: Normal S1 and S2; no rubs, murmurs, or gallops ABDOMEN: Abdomen soft, non-tender, BS normal, No masses or organomegaly EXTREMITIES: Extremities normal, no deformities, edema, clubbing or skin discoloration. Good capillary refill., No ulcers NEURO: Grossly normal cognition, motor function, and cranial nerves III-XII PULSES: 2+ radial, 2+ dorsalis pedis, 2+ carotid, left arm AV fistula with slight pulsation, no thrill Patient Vitals for the past 24 hrs: BP Temp Temp src Pulse Resp SpO2 Height Weight 08/14/19 1800 122/72 36.9 ?C (98.4 ?F) Oral 61 16 100 % 152.4 cm (5') 69.4 kg (153 lb) 08/14/19 1700 109/70 ? ? 65 16 100 % ? ? 08/14/19 1600 102/69 ? ? 65 15 100 % ? ? 08/14/19 1500 111/66 ? ? 67 18 100 % ? ? 08/14/19 1400 119/55 ? ? 61 16 100 % ? ? 08/14/19 1300 118/54 ? ? 66 16 100 % ? ? 08/14/19 1201 122/74 ? ? 61 14 100 % ? ? 08/14/19 1037 139/76 36.6 ?C (97.9 ?F) Oral 69 18 100 % 152.4 cm (5') 68 kg (149 lb 14.6 oz) Body mass index is 29.88 kg/m?. ASSESSMENT AND PLAN Principal Problem: AV fistula thrombosis (HCC) POA: Yes Assessment AND Plan: Admit for urgent replacement of tunneled dialysis catheter and resumption of hemodialysis. Vascular surgery consultation as well to see if there are any urgent interventions should be undertaken. Active Problems: Polycystic kidney disease POA: Yes Assessment AND Plan: Status post bilateral nephrectomy ESRD on hemodialysis (HCC) POA: Yes Assessment AND Plan: As above, await resumption of dialysis access is obtained Vascular catheter dysfunction (HCC) POA: Yes Assessment AND Plan: TPA was unsuccessful at outlying dialysis facility several days ago Resolved Problems: * No resolved hospital problems. * Advanced Care Planning Purpose of Encounter: Advanced care planning in light of AV fistula thrombosis (HCC) Parties in Attendance: Patient, DrJyothi Ferrari MD Decisional Capacity: Full Code Status: Line Mover Spent on Advance Care Plannin minutes Disposition: Home Total time 30 minutes during this encounter, including chart review, discussion with nursing staff and/or other providers, documentation, enrobing machine corder, and [id number] time with patient. Plan of care discussed with: Provider, RN, Patient and Emergeny Room Physician VTE Prophylaxis: Heparin 5000 units Sub Q BID Diagnostic tests reviewed for today's visit: Most recent labs and imaging results. LABS CBC: Recent Labs 08/14/19 1200 WBC 9.49 HB 9.4* PLT 205 CMP: Recent Labs 08/14/19 1200 NA 138 K 5.4* CHLOR 105 CO2 25 BUN 63* CREAT 14.60* GLUC 92 CA 8.9 SIGNATURE: Emanuel Ferrari MD PATIENT NAME: Cate Fox DATE: August 14, 2019 TIME: 7:03 PM PAGER #: Primary Service NIGHT AND WEEKEND COVERAGE: After 7pm please page [phone] Tamanna Faye MD 08/15/2019 6:18 AM Incomplete Vascular Surgery Progress Note SERVICE DATE: 08/15/2019 SUBJECTIVE: Tolerating diet DIET RENAL OBJECTIVE: Vitals: Temp (24hrs), Av.7 ?C (98.1 ?F), Min:36.6 ?C (97.9 ?F), Max:36.9 ?C (98.4 ?F) BP 106/57 Pulse 63 Temp 36.7 ?C (98 ?F) (Oral) Resp 16 Ht 152.4 cm (5') Wt 69.4 kg (153 lb) SpO2 96% BMI 29.88 kg/m? O2 Therapy: Room Air IANDO: MEDICATIONS Current Facility-Administered Medications Medication Dose Route Frequency - allopurinol 100 mg tab(s) (ZYLOPRIM) 100 mg ORAL -- - docusate sodium 100 mg cap(s) (COLACE) 100 mg ORAL DAILY - midodrine 10 mg tab(s) (PROAMATINE) 10 mg ORAL 2 times per day on Tue - oxyCODONE IR 5 mg tab(s) (ROXICODONE) 5 mg ORAL q 4 H PRN - sevelamer carbonate 2,400 mg tab(s) (RENVELA) 2,400 mg ORAL TID before MEALS - albuterol HFA 90 mcg/actuation 2 Puff (PROVENTIL HFA, VENTOLIN HFA) 2 Puff INHALATION q 4 H PRN - heparin 5,000 Units injection 5,000 Units SUBCUTANEOUS q 12 H - NaCl 0.9% 2-10 mL 2-10 mL INTRAVENOUS q 12 H - acetaminophen 650 mg tab(s) (TYLENOL) 650 mg ORAL q 6 H PRN - benzocaine-menthoL 1 Lozenge (CEPACOL) 1 Lozenge MUCOUS MEMBRANE (TOPICAL MOUTH AND THROAT) q 2 H PRN - aluminum-magnesium hydroxide-simethicone 200-200-20 mg/5 mL 30 mL (MAALOX,MYLANTA,MAG-AL PLUS) 30 mL ORAL q 6 H PRN - morphine 4 mg injection 4 mg INTRAVENOUS q 3 H PRN - nitroglycerin sublingual 0.4 mg tab(s) (NITROQUICK) 0.4 mg SUBLINGUAL PRN - ondansetron (PF) 4 mg injection (ZOFRAN) 4 mg INTRAVENOUS q 6 H PRN - polyvinyl alcohol-povidone 1.4-0.6 % 1 Drop (REFRESH) 1 Drop BOTH EYES PRN - prochlorperazine 5 mg injection (COMPAZINE) 5 mg INTRAVENOUS q 4 H PRN - diphenhydrAMINE 25 mg (BENADRYL) 25 mg ORAL q 4 H PRN - guaiFENesin-dextromethorphan 100-10 mg/5 mL 10 mL oral liquid (ROBITUSSIN DM) 10 mL ORAL q 4 H PRN - Lip Protectant with Sunscreen SPF 15 1 application Stick (Blistex) 1 application TOPICAL PRN - sodium chloride 0.65 % 2 Clif[place] (AYR, OCEAN) 2 [place]if[place] EACH NOSTRIL PRN - saliva substitute combo no.9 15 mL (BIOTENE mouthwash) 15 mL MUCOUS MEMBRANE (TOPICAL MOUTH AND THROAT) PRN - b complex, c, folic acid 1 mg renal vitamins 1 capsule (NEPHROCAPS) 1 capsule ORAL DAILY Labs: Recent Labs 08/14/19 1200 NA 138 K 5.4* CHLOR 105 CO2 25 BUN 63* CREAT 14.60* GLUC 92 ANION 13 CA 8.9 WBC 9.49 HB 9.4* HCT 30.1* PLT 205 Exam: GENERAL: No distress, Alert NEURO: AANDOx3, CN II-XII grossly intact HEENT: normocephalic, atraumatic LUNGS: Unlabored breathing CARDIAC: Regular rate and rhythm as above ABDOMEN: Soft, non-tender, non-distended EXTREMITIES: MCKEON, No deformities, No edema SKIN: Skin color, texture, turgor normal, No rashes or lesions ASSESSMENT AND PLAN: Active Hospital Problems Diagnosis Date Noted - AV fistula thrombosis (HCC) 08/14/2019 Priority: A - Vascular catheter dysfunction (HCC) 08/14/2019 - ESRD on hemodialysis (HCC) - Polycystic kidney disease 01/26/2010 58 year old female with thrombosis of transposed LUE brachiobasilic fistula and tunneled HD cath ? - Will exchange current HD cath in IR in am - Will hold morning SQH, no need for NPO - Will order vein mapping to evaluate for possible AV graft vs fistula in BUE - Continue medical management per primary Vascular AND Thoracic Surgery Service Pager: For questions or concerns Mon-Tue 6a-5p please page [phone]. After 5pm and on Weekends and Holidays, please page [phone] if in ICU or [phone] if on RNF. SIGNATURE: Tamanna Faye MD PATIENT NAME: Cate Fox DATE: August 15, 2019 TIME: 6:17 AM Pager: Rain Vazquez MD, MD 08/15/2019 8:47 AM [facility] DEPARTMENT OF HOSPITAL MEDICINE PROGRESS NOTE SERVICE DATE: 08/15/2019 SERVICE TIME: 8:37 AM Hospital Medicine/Primary Attending: Rain Vazquez MD NIGHT AND WEEKEND COVERAGE: After 7pm please page [phone] CHIEF COMPLAINT: Malfunctioning HD fistula/ HD cath placed recently SUBJECTIVE: Pt seen and examined. OBJECTIVE: PHYSICAL EXAM: BP 108/51 Pulse 62 Temp (Src) 98.6 (Oral) Resp 16 Ht 5' 0 (1.52m) Wt 153 lb (69.4kg) SpO2 98% BMI 29.88 kg/(m2). O2 Therapy: Room Air General - AANDOx3, NAD, Calm CV - RRR S1 S2, No M/R/G RESP - CTA B/L No wheezes, ronchi, rales ABD - soft, NT, ND +BS EXT - no gross joint deformity, no clubbing, cyanosis, edema NEURO - CN II-XII grossly intact, no focal deficits MEDICATIONS: Current Facility-Administered Medications Medication Dose Route Frequency - allopurinol 100 mg tab(s) (ZYLOPRIM) 100 mg ORAL -- - docusate sodium 100 mg cap(s) (COLACE) 100 mg ORAL DAILY - midodrine 10 mg tab(s) (PROAMATINE) 10 mg ORAL 2 times per day on Sun Tue - oxyCODONE IR 5 mg tab(s) (ROXICODONE) 5 mg ORAL q 4 H PRN - sevelamer carbonate 2,400 mg tab(s) (RENVELA) 2,400 mg ORAL TID before MEALS - albuterol HFA 90 mcg/actuation 2 Puff (PROVENTIL HFA, VENTOLIN HFA) 2 Puff INHALATION q 4 H PRN - heparin 5,000 Units injection 5,000 Units SUBCUTANEOUS q 12 H - NaCl 0.9% 2-10 mL 2-10 mL INTRAVENOUS q 12 H - acetaminophen 650 mg tab(s) (TYLENOL) 650 mg ORAL q 6 H PRN - benzocaine-menthoL 1 Lozenge (CEPACOL) 1 Lozenge MUCOUS MEMBRANE (TOPICAL MOUTH AND THROAT) q 2 H PRN - aluminum-magnesium hydroxide-simethicone 200-200-20 mg/5 mL 30 mL (MAALOX,MYLANTA,MAG-AL PLUS) 30 mL ORAL q 6 H PRN - morphine 4 mg injection 4 mg INTRAVENOUS q 3 H PRN - nitroglycerin sublingual 0.4 mg tab(s) (NITROQUICK) 0.4 mg SUBLINGUAL PRN - ondansetron (PF) 4 mg injection (ZOFRAN) 4 mg INTRAVENOUS q 6 H PRN - polyvinyl alcohol-povidone 1.4-0.6 % 1 Drop (REFRESH) 1 Drop BOTH EYES PRN - prochlorperazine 5 mg injection (COMPAZINE) 5 mg INTRAVENOUS q 4 H PRN - diphenhydrAMINE 25 mg (BENADRYL) 25 mg ORAL q 4 H PRN - guaiFENesin-dextromethorphan 100-10 mg/5 mL 10 mL oral liquid (ROBITUSSIN DM) 10 mL ORAL q 4 H PRN - Lip Protectant with Sunscreen SPF 15 1 application Stick (Blistex) 1 application TOPICAL PRN - sodium chloride 0.65 % 2 Clif[place] (AYR, OCEAN) 2 [place] EACH NOSTRIL PRN - saliva substitute combo no.9 15 mL (BIOTENE mouthwash) 15 mL MUCOUS MEMBRANE (TOPICAL MOUTH AND THROAT) PRN - b complex, c, folic acid 1 mg renal vitamins 1 capsule (NEPHROCAPS) 1 capsule ORAL DAILY DATA: Diagnostic tests reviewed for today's visit: CBC: Recent Labs 08/14/19 1200 WBC 9.49 RBC 3.05* HB 9.4* HCT 30.1* PLT 205 MCV 98.7* MCH 30.8 MPV 9.8 RDW 14.3 Coags: Recent Labs 08/15/19 0625 INR 0.97 APTT 28.5 BMP: Recent Labs 08/15/19 0625 NA 137 K 6.0* CHLOR 106 CO2 20* BUN 69* CREAT 16.30* GLUC 89 CMP: Recent Labs 08/15/19 0625 NA 137 K 6.0* CHLOR 106 CO2 20* BUN 69* CREAT 16.30* GLUC 89 CA 8.5 MG 2.5 ANION 17* Cardiac Enzymes: No results for input(s): CK, MB, CKMB, TROPT in the last 24 hours. Liver Function, Amylase, Lipase: No results for input(s): TPROT, ALB, ALT, AST, ALKPHOS, TBILI, AMYLASE, LIPASE, LACTATE in the last 24 hours. MG/PHOS: Recent Labs 08/15/19 0625 MG 2.5 P 7.0* Renal Panel: Recent Labs 08/15/19 0625 CREAT 16.30* BUN 69* GLUC 89 CA 8.5 P 7.0* CHLOR 106 K 6.0* CO2 20* NA 137 Heme: No results for input(s): RETICP, ABSRETIC, LD, SPARKLE, FE, TIBC, TRANSFERSAT in the last 24 hours. No results found for: UALBCR Assessment/Plan Principal Problem: #Hyperkalemia/uremia/hyperph osphatemia Last HD 07/13. -K at 6.0. 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 #ESRD - due to PCKD, HD since 2017 Medication and Non-Pharmacologic VTE Prophylaxis/Anticoagulants Anticoagulant AND Antiplatelet Medications (From admission, onward) Start Dose Route Frequency Ordered Stop 08/14/19 1900 heparin 5,000 Units injection (Medical Risk Categories) 5,000 Units SUBCUTANEOUS EVERY 12 HOURS 08/14/19 1839 -- 08/14/19 184 vte non-pharmacologic prophylaxis - none indicated (ne,ca) 08/14/191844 activity - mobilize patient (ne,ca) Lines, Drains, and Airways Line Peripheral 08/14/19 1200 Right Antecubital 20 Gauge less than 1 day VTE Prophylaxis: Heparin 5000 units Sub Q BID Disposition: Home Functional Status Prior to Admit: Medical Necessity for Continued Hospitalization Plan of care discussed with: Provider, RN, Patient SIGNATURE: Rain Vazquez MD PATIENT NAME: Cate Fox DATE: August 15, 2019 TIME: 8:37 AM PAGER/CONTACT #: Peter montaño pager Disclaimer: Portions of this note may have been generated using [employer] voice recognition software. Reasonable efforts were made to correct any dictation errors that resulted due to the programming of this software but some may still be present. Normal [facility] Hemogram/Diffon 08-14-2019 Abs Immature Grans 0.04 thou/cmm Normal 0.00-0.05 [facility] [place] Comment on above: Performed By: #### C BCD1 #### [address] [address] Abs Neut (ANC) 6.90 thou/cmm High 1.56-6.13 [facility] Comment on above: Performed By: #### C BCD1 #### [address] [address] Abs. Baso 0.08 thou/cmm Normal 0.01-0.08 [facility] Comment on above: Performed By: #### C BCD1 #### [address] [address] Abs. [place] 0.64 thou/cmm Normal 0.27-0.70 [facility] Comment on above: Performed By: #### C BCD1 #### [address] [address] Basophils/100 WBC (Bld) 0.8 % Normal [facility] Comment on above: Performed By: #### C BCD1 #### [facility] [address] [place], [place] [address] Eosinophils (Bld) [#/Vol] 0.46 thou/cmm High 0.00-0.31 [facility] Comment on above: Performed By: #### C BCD1 #### [address] [address] Eosinophils/100 WBC (Bld) 4.8 % Normal [facility] Comment on above: Performed By: #### C BCD1 #### [facility] [address] [place] [address] Erythrocyte distribution width (RBC) [Ratio] 14.3 % Normal 11.7-14.4 [facility] Comment on above: Performed By: #### C BCD1 #### [facility] [address] [place] [address] Hematocrit (Bld) [Volume fraction] 30.1 % Low 34.1-44.9 [facility] Comment on above: Performed By: #### C BCD1 #### [place] [address] Hemoglobin (Bld) [Mass/Vol] 9.4 g/dL Low 11.2-15.7 [facility] Comment on above: Performed By: #### C BCD1 #### [place] [address] Immature Grans 0.40 % Normal [facility] Comment on above: Performed By: #### C BCD1 #### [place] [address] Lymphocytes (Bld) [#/Vol] 1.39 thou/cmm Normal 1.18-3.74 [facility] Comment on above: Performed By: #### C BCD1 #### [place] [address] Lymphocytes/100 WBC (Bld) 14.6 % Normal [facility] Comment on above: Performed By: #### C BCD1 #### [facility] [address] [place] [address] MCH (RBC) [Entitic mass] 30.8 pg Normal 25.6-32.2 [facility] Comment on above: Performed By: #### C BCD1 #### [place] [address] MCHC (RBC) [Mass/Vol] 31.2 % Low 31.6-34.8 [facility] [place] Comment on above: Performed By: #### C BCD1 #### [facility] [address] [place] [address] MCV (RBC) [Entitic vol] 98.7 fL High 79.4-94.8 [facility] Comment on above: Performed By: #### C BCD1 #### [facility] [address] [place] [address] Monocytes/100 WBC (Bld) 6.7 % Normal [facility] Comment on above: Performed By: #### C BCD1 #### [facility] [address] [place] [address] Platelet mean volume (Bld) [Entitic vol] 9.8 fL Normal 9.4-12.3 [facility] Comment on above: Performed By: #### C BCD1 #### [facility] [address] [place] [address] Platelets (Bld) [#/Vol] 205 thou/cmm Normal 182-369 [facility] Comment on above: Performed By: #### C BCD1 #### [facility] [address] [place] [address] RBC (Bld) [#/Vol] 3.05 mil/cmm Low 3.93-5.22 [facility] Comment on above: Performed By: #### C BCD1 #### [facility] [address] [place] [address] RDW SD 51.8 fl High 36.4-46.3 [facility] Comment on above: Performed By: #### C BCD1 #### [facility] [address] [place] [address] Seg Neutrophil 72.7 % Normal [facility] Comment on above: Performed By: #### C BCD1 #### [facility] [address] [place] [address] WBC (Bld) [#/Vol] 9.49 thou/cmm Normal 3.98-10.04 [facility] Comment on above: Performed By: #### C BCD1 #### [facility] [address] [place] [address] PLAN OF CAREon 08-14-2019 PLAN OF CARE HNO ID: [id number] Author: Orlando Britt (Pharmacist) Service: Pharmacy Author Type: Pharmacist Type: Plan of Care Filed: 08/15/2019 5:23 PM Note Text: MEDICATION HISTORY Patient Name:Mai Fox : 1960 Source of history:Patient: Reliability of source: Appears reliable, clearly identified: Medication name, Medication dose, Medication route and Medication frequency, Pharmacy records: [facility] [phone], [facility] [phone] and [employer] [phone] and [facility] records Medication Nonadherence Identified: No barriers noted The above information represents the best possible medication history: Yes Additional comments: [id number] Medication List Adjustments: Medication Regimen Changes: Verified medication information with patient, pharmacy and chart review. Removed duplicate albuterol entry from med list. Medications Added: Medications Removed: albuterol HFA (PROAIR HFA) 90 mcg/actuation inhaler Duplicate Entry Short-Term Medications: Further Clarification Required: Patient is a 30 day readmission: No Patient Interested in Bedside Delivery: No Time Spent Reviewing Patient's Medications: 45 minutes Allergies: ALLERGIES Allergen Reactions - Codeine Intolerance Jittery and nauseous - Penicillins Unknown Too young to remember reaction. Preferred Pharmacy: [facility] [phone] Current OFFAL BALER Medications: Prior to Admission medications as of 08/14/19 1440 Medication Sig Last Dose Taking allopurinol (ZYLOPRIM) 100 mg tablet Take 100 mg by mouth. Tuesday Yes docusate sodium (COLACE) 100 mg capsule Take 100 mg by mouth once daily. Yes MADDY-BRIAN 0.8 mg tab Take 1 tablet by mouth once daily. Yes midodrine (PROAMATINE) 10 mg tablet Take 10 mg by mouth. Prior to dialysis and half way through dialysis Yes ondansetron orally disintegrating (ZOFRAN ODT) 4 mg disintegrating tablet Take 4 mg by mouth as needed. Yes oxyCODONE IR (ROXICODONE) 5 mg immediate release tablet Take 5 mg by mouth as needed. q6 hours prn Yes sevelamer carbonate (RENVELA) 800 mg tablet Take by mouth three times daily. 3 pills per meal and 1 for snack Yes ALBUTEROL 90 MCG/ACTUATION AEROSOL INHALER Inhale one(1) - two(2) puffs four(4) times a day as needed for wheezing and shortness of breath. Yes Lindsey Khanna (Hunting Sales Associate) [id number] August 14, 2019 4:16 PM MEDICATION RECONCILIATION Patient Name:Mai Fox : 1960 Reconciliation: Yes All OFFAL BALER medications addressed by PUMA Britt, Pharmacist August 15, 2019 5:21 PM Pager: [phone] [facility] Otheron 07-30-2019 COMMENT [facility] Surgery-[facility] Work Phone: Comment on above: SEE SEPARATE REPORT. Otheron 12-27-2018 HLA-A+B+C (class I) Ab (S) SEE COMMENT [facility] Work Phone: Comment on above: HLA-CLASS I SP ANTIB YOSELIN IDENTIFICATION, HIGH DEFINITION SEE SEPARATE REPORT. HLA-DP+DQ+DR (class II) Ab (S) SEE COMMENT [facility] Work Phone: Comment on above: HLA-CLASS II SP ANTI BODY IDENTIFICATION, HIGH DEFINITION SEE SEPARATE REPORT. Otheron 12-08-2018 Interpreted by: ENID LUIS [id number]/05/19 12:05MRN: [id number] Name: CATE FOX STUDY:NR MRA HEAD W/O C; 12/08/2018 9:12 am INDICATION:Patient evaluated for kidney transplant. History of brain bleed infamily. Evaluation of tcpdur-ik-Jkxkpd for aneurysm. COMPARISON:MRI brain 12/08/2018 ORDERING CLINICIAN:PATRICK HA TECHNIQUE:Eloy-zj-uaeivc MRA of the head was performed. The images werereviewed as source images and maximum intensity projections. FINDINGS:Anterior circulation: There is expected flow signal in bilateralintracranial internal carotid arteries, bilateral carotid terminals,bilateral proximal anterior and middle cerebral arteries. Posterior circulation: Bilateral intracranial vertebral arteries,vertebrobasilar junction, basilar artery and proximal posteriorcerebral arteries demonstrate expected flow signal. The basilarartery demonstrates mild tortuosity. IMPRESSION:1. There is no aneurysm demonstrated.2. There is no evidence for hemodynamically significant stenosis orlarge branch vessel cutoffs of the visualized intracranialvasculature. I personally reviewed the image(s)/study and interpretation. I agreewith the findings as stated.Interpreted at [place], [place] signed by: FRANDY ROBERT 12/08/18 12:05 Normal [facility] Work Phone: Interpreted by: ENID ROBERT12/08/18 12:10MRN: [id number] Name: CATE FOX STUDY:NR MRI BRAIN WO; 12/08/2018 9:09 am INDICATION:History pf PKD, evaluate [place] BRAIN WO AND MRA PROTOCOLUSED ON SNM4. PATIENT HAD EARRINGS THAT COULD NOT BE REMOVED CAUSINGARTIFACT ON THE IMAGES. AC/MEF. COMPARISON:None. ORDERING CLINICIAN:PATRICK HA TECHNIQUE:Axial T2, FLAIR, DWI, gradient echo T2 and sagittal and coronal [id number] images of brain were acquired. FINDINGS:CSF Spaces: The ventricles, sulci and basal cisterns are withinnormal limits. Parenchyma: There is mild prominence of the CSF within the bilateralfrontal convexities. There is no diffusion restriction abnormality tosuggest acute infarct. Susceptibility artifact is noted on the DWIsequence bilaterally just anterior to the mastoid air cells. There isno mass effect or midline shift. Paranasal Sinuses and Mastoids: There is mucosal thickening along theinferior and posterior ross the maxillary sinuses bilaterally, aswell as along the anterior wall of the left maxillary sinus.Visualized paranasal sinuses are unremarkable. IMPRESSION:1. No evidence of acute infarct, intracranial mass effect or midlineshift.2. Mild prominence of CSF along the bilateral frontal convexities maybe normal variant versus reflect mild bifrontal parenchymal volumeloss.3. Mild mucosal thickening of the bilateral maxillary sinusesbilaterally may mucoceles or retention cysts. I personally reviewed the image(s)/study and interpretation. I agreewith the findings as stated.Interpreted at [place], [place] signed by: FRANDY ROBERT 12/08/18 12:10 Normal [facility] Work Phone: Otheron 11-30-2018 COMMENT MGDarlene [facility] Work Phone: Comment on above: SEE SEPARATE REPORT. HIV Antigen/Antibody Screeno n 11-23-2018 HIV Antigen/Antibody Screen NONREACTIVE See Below [facility] [employer] Work Phone: Comment on above: SOURCE: Reference Ra nge: NONREACTIVE HIV Ag/Ab screen is performed using the Siemens Advia Centaur HIV Ag/Ab Combo assay which detects the presence of HIV p24 antigen as well as antibodies to HIV-1 (Group M and O) and HIV-2. SOURCE: Reference Ra nge: NONREACTIVE Patients receiving more than 5 mg/day of biotin may have interference in test results. A sample should be taken no sooner than eight hours after previous dose. Contact the testing laboratory for additional information. Hepatitis B Surface Antibody on 11-23-2018 HBV surface Ag IA Ql < 3.1 <10 [facility] Work Phone: Comment on above: SOURCE: INTERPRETIVE CRITERIA:<10 mIU/mL....NONREACTIVE >=10 mIU/mL...REACTIVE . Patients receiving more than 5 mg/day of biotin may have interference in test results. A sample should be taken no sooner than eight hours after previous dose. Contact the testing laboratory for additional information. Hepatitis C Antibody Teston 11-23-2018 Hepatitis C Antibody Test NON-REACTIVE See Below [employer] [employer] Work Phone: Comment on above: SOURCE: Reference Ra nge: NONREACTIVE Patients receiving more than 5 mg/day of biotin may have interference in test results. A sample should be taken no sooner than eight hours after previous dose. Contact the testing laboratory for additional information. Otheron 11-23-2018 T. pallidum IgG IA Ql (S) NON REACTIVE See Below [facility] Work Phone: Comment on above: SOURCE: Reference Ra nge: NONREACTIVE Patients receiving more than 5 mg/day of biotin may have interference in test results. A sample should be taken no sooner than eight hours after previous dose. Contact [phone] for additional information. T-SPOT. TBon 11-23-2018 T-SPOT. TB Negative See Below [facility] Work Phone: Comment on above: Reference Range: Nor mal Value: NegativeA negative test result does not exclude the possibility of exposure to or infection with Mycobacterium tuberculosis (M. tuberculosis). Patients with recent exposure to TB infected individuals exhibiting a negative T-SPOT.TB result should be considered for retesting within 6 weeks or if other relevant clinical symptoms indicate. Results from T-SPOT.TB testing must be used in conjunction with each individual's epidemiological history, current medical status, and results of other diagnostic evaluations. The T-SPOT.TB test is qualitative and results are reported as positive, borderline or negative, given that the test controls perform as expected. In line with the Centers for Disease Control and Prevention's 2010 recommendation to report quantitative measurements alongside the qualitative result, the laboratory provides spot counts for informational purposes only. The T-SPOT.TB test should not be interpreted as a quantitative test. T-SPOT. TB 0 [facility] Work Phone: T-SPOT. TB Passed [facility] Work Phone: Otheron 11-09-2018 Interpreted by: KVAPAY65/06/19 12:41MRN: [id number] Name: CATE FOX STUDY:NOH CARDIAC STRESS/REST INJECTION; NOH PART 2 STRESS OR REST (NOCHARGE); NOH CARDIAC STRESS/REST (MYOCARDIAL PERFUSION/MIBI);11/09/2018 12:11 pm; 11/09/2018 11:37 am INDICATION:pre-kidney transplant. COMPARISON:None. [id number]; [id number] ORDERING CLINICIAN:NIHARIKA OLSON TECHNIQUE:DIVISION OF NUCLEAR MEDICINEPHARMACOLOGIC STRESS MYOCARDIAL PERFUSION SCAN, ONE DAY PROTOCOL The patient received an intravenous dose of 11.1 mCi of Tc-99mMyoview and resting emission tomographic (SPECT) images of themyocardium were acquired. The patient then received an intravenousinfusion of 0.4mg regadenoson (Lexiscan) followed by an additionaldose of 29.0 mCi of Tc-99m Myoview. Stress phase SPECT images of themyocardium were then acquired. These included ECG-gated images toassess and quantify ventricular function. FINDINGS:Both stress and rest images demonstrate grossly normal perfusionthroughout the left ventricle. The left ventricle is at the upper limits of normal in size. Gated images demonstrate normal LV wall motion with an LV EFestimated at 59%. IMPRESSION:1. Normal myocardial perfusion without evidence of ischemia or priorinfarction.2. The left ventricle is at the upper limits of normal in size.3. Normal LV wall motion with an LV EF estimated at 59%. I personally reviewed the images/study and I agree with the findingsas stated. This study was interpreted at [place], [place].Electronically signed by: HORTENSIA 11/09/18 12:41 Normal [facility] Work Phone: [id number] [phone], [address] [place] [address], [address], [place] [address] [phone] and [place] Pharmacologic Stress TestPatient Name: Cate Fox Ordering Physician: Niharika ReinaStphuong Date: 11/09/2018 Reading Physician: Humberto Zelaya MDMRN/PID: [id number] Supervising Physician: Humberto Zelaya MDAccession/Order#: [id number] Referring Physician: Niharika ReinaDate of : 1960 PCP:Gender: F Fellow:Admit Date: 11/09/2018 Fellow:Admission Status: Outpatient Seat Mender:Height: 152.40 cm Nurse: BUDDY WardWeight: 65.77 kg Marketing Planner: N/ABSA: 1.63 m2 Technologist: Cas Welsh: 28.32 kg/m2 Additional Staff:Age: 57 years cc report to:Patient Location: [place] [facility] cc report to: Niharika Stark MDStudy Type: [place] Nuclear OrderDiagnosis/ICD: Z01.818-Encounter for other preprocedural examinationIndication: Pre-Op EvaluationProcedure/CPT: Stress Test Interpretation-[id number]; Stress Test Supervision-[id number] Details: Correct procedure and correct patient verified verbally and withID Band checked.Patient History: Renal failure, previous deep vein thrombosis and on dialysis.Allergies: PCN, Codeine.Medications: The patient's prescribed medication is Renal Vitamins and Allopurinol. The patient did not take medications as prescribed.Patient Performance: Patient received a total of 0.4 mg of Regadenoson at 9:38:58 AM. Patient received a total of 29 mCi of Myoview at 9:39:33 AM. The patient did not exercise during infusion. The peak heart rate achieved was 100 bpm, which was 61 % of the age predicted target heart rate of 164 bpm. The resting blood pressure was 128/81 mmHg with a heart rate of 68 bpm. The patient developed no symptoms during the stress exam. The blood pressure response was normal. The test was terminated due to: completed lab protocol. Patient has met the discharge criteria and is discharged to home.Baseline ECG: Resting ECG showed normal sinus rhythm with normal tracing.Stress ECG: Stress ECG showed normal sinus rhythm, with one isolated PVC. No ST changes.Stress Stage Data:+---+------+-------+--- ---------+\F\HR \F\Sys BP\F\Bradley BP\F\Comments \F\+---+------+-------+----- -------+\F\68 \F\128 \F\81 \F\ \F\+---+------+-------+----- -------+\F\90 \F\133 \F\76 \F\0100 minute \F\+---+------+-------+----- -------+\F\100\F\138 \F\86 \F\0200 minutes\F\+---+------+------ -+ +Recovery ECG: Recovery ECG showed normal sinus rhythm, with rare PVCs. The heart rate recovery was normal.+ +--+---- --+-------+ +\F\ \F\HR\F\Sys BP\F\Bradley BP\F\Comments \F\+ +--+------+- ------+ +\F\Recov grayson I \F\91\F\133 \F\75 \F\0100 minute \F\+ +--+------+- ------+ +\F\Recov grayson II \F\86\F\135 \F\71 \F\0200 minutes\F\+ +--+- -----+-------+ +\ F\Recovery III\F\82\F\127 \F\74 \F\0400 minutes\F\+ +--+- -----+-------+ +\ F\Recovery IV \F\81\F\121 \F\75 \F\0600 minutes\F\+ +--+- -----+-------+ +S ummary:1. No clinical or electrocardiographic evidence for ischemia at a maximal infusion.2. Normal ECG.3. Normal Stress Test.4. Nuclear image results are reported separately.5. The adequate level of stress was achieved.[id number] Samina Paz MDElectronically signed on 11/09/2018 at 12:43:39 PM Final [facility] Work Phone: Interpreted by: AMARJIT CRUM11/12/18 20:05MRN: [id number] Name: [facility] STUDY:CT ABDOMEN AND PELVIS WO CONTRAST; 11/09/2018 8:24 am INDICATION:pre-kidney transplant. COMPARISON:05/06/2015. ORDERING CLINICIAN:NIHARIKA OLSON TECHNIQUE:CT of the abdomen and pelvis was performed. Contiguous axial imageswere obtained at 3 mm slice thickness through the abdomen and pelvis.Coronal and sagittal reconstructions at 3 mm slice thickness wereperformed. No intravenous contrast was administered; positive oralcontrast was given. FINDINGS:Please note that the evaluation of vessels, lymph nodes and organs islimited without intravenous contrast. LOWER CHEST:Focal atelectasis in the lingula. Few tiny nodules seen in the rightlower lobe. No consolidation. No pleural effusion. Heart is normalin size. Trace pericardial fluid is noted. Distal esophagus is withinnormal limits. ABDOMEN: LIVER:Innumerable cysts seen throughout the liver parenchyma. A dominantcyst in the hepatic dome has increased in size measuring 8.1 cm,previously 5.8 cm (axial image 17/140). Few of the cysts in bothlobes have decreased in size with new dense calcification. Forexample a cyst in the periphery of the segment 6 measures 3.1 cmcompared to 6 cm and now shows new calcification. Similarly severalcysts in the left lobe have decreased in size with new calcification. BILE DUCTS:The intrahepatic and extrahepatic ducts are not dilated. GALLBLADDER:The gallbladder is surgically absent. PANCREAS:The pancreas appears unremarkable without evidence of ductaldilatation or masses within the limits of noncontrast CT.. SPLEEN:The spleen is normal in size without focal lesions. ADRENAL GLANDS:Bilateral adrenal glands appear normal. KIDNEYS AND URETERS:Interval bilateral nephrectomies with the multiple surgical clipswithin the nephrectomy bed. PELVIS: BLADDER:The urinary bladder is decompressed, limited for evaluation. REPRODUCTIVE ORGANS:Uterus is present with a densely calcified fibroid. No adnexal mass. BOWEL:Stomach and duodenum are within normal limits. No abnormal bowelthickening or dilatation. There is high-density material within aloop of jejunum in the left side of the abdomen. No surroundingstranding or free fluid is seen. Colonic diverticulosis. The appendixappears normal. VESSELS:Moderate atherosclerotic changes in the aorta. No aortic aneurysm.Mild atherosclerotic changes also noted in the bilateral common andinternal iliac arteries. No significant atheroscleroticcalcification s in the bilateral external iliac arteries. IVC isnormal in caliber. PERITONEUM/RETROPERITONEUM/L YMPH NODES:No ascites or fluid collection. No retroperitoneal mass or hematoma.No enlarged lymph nodes in the abdomen and pelvis. ABDOMINAL WALL:No soft tissue masses in the abdominal wall. Midline postsurgicalchanges are noted. BONES:No lytic or blastic osseous lesions. IMPRESSION:1. Status post bilateral nephrectomies.2. Moderate atherosclerotic changes in the aorta and mildatherosclerotic changes in the bilateral common and internal iliacarteries. No significant atherosclerotic calcifications in thebilateral external iliac arteries.3. Multiple hepatic cysts some of the increase in some decreased insize.4. High-density material in the lumen of the jejunum in the left sideof the abdomen likely representing ingested material. If the patienthas any symptoms of upper or lower GI bleeding, the high densitymaterial can represent blood products. Clinical correlation isrecommended. Electronically signed by: AMARJIT CRUM 11/12/18 20:05 Normal [facility] Work Phone: Otheron 11-01-2018 COMMENT [facility] Work Phone: Comment on above: SEE SEPARATE REPORT. Culture, urine Bacteria identified Cx Nom (U) Escherichia coli [facility] Work Phone: Laboratory - Microbiology an d Antimicrobial susceptibility Bacteria identified Cx Nom (Bld) Escherichia coli [facility] Work Phone: No Panel Information SARS-CoV-2 & FLU Antigen (Rapid) [facility] Work Phone: Vital Signs Date Time Vital Sign Value Performing Clinician Facility 09-12-2024 10:03-0400 Body mass index (BMI) [Ratio] 41.01 kg/m2 Tara Marcial MD Work Phone: [facility] 09-12-2024 10:03-0400 Body temperature 97.59 [degF] Tara Marcial MD Work Phone: [facility] 09-12-2024 10:03-0400 Body weight 95.25 kg Tara Marcial MD Work Phone: [facility] 09-12-2024 10:03-0400 Diastolic blood pressure 67 mm[Hg] Tara Marcial MD Work Phone: [facility] 09-12-2024 10:03-0400 Heart rate 81 /min Tara Marcial MD Work Phone: [facility] 09-12-2024 10:03-0400 Systolic blood pressure 142 mm[Hg] Tara Marcial MD Work Phone: [facility] 09-14-2023 10:12-0400 Body mass index (BMI) [Ratio] 39.14 kg/m2 LYNDSAY Mcfarlane MD Work Phone: [facility] 09-14-2023 10:12-0400 Body temperature 97.2 [degF] LYNDSAY Mcfarlane MD Work Phone: [facility] 09-14-2023 10:12-0400 Body weight 90.9 kg LYNDSAY Mcfarlane MD Work Phone: [facility] 09-14-2023 10:12-0400 Diastolic blood pressure 74 mm[Hg] LYNDSAY Mcfarlane MD Work Phone: [facility] 09-14-2023 10:12-0400 Heart rate 77 /min LYNDSAY Mcfarlane MD Work Phone: [facility] 09-14-2023 10:12-0400 Systolic blood pressure 159 mm[Hg] LYNDSAY Mcfarlane MD Work Phone: [facility] 06-05-2023 23:30-0500 Body mass index (BMI) [Ratio] 27 kg/m2 Dr. Carson Russell Work Phone: [facility] 05-25-2023 13:55-0500 Body temperature 96.9 [degF] Dr. Carson Russell Work Phone: [facility] 05-25-2023 13:55-0500 Diastolic blood pressure 71 mm[Hg] Dr. Carson Russell Work Phone: 1(314)279-968127 [address] 05-25-2023 13:55-0500 Heart rate 69 /min Dr. Carson Russell Work Phone: 3(200)559-564627 [address] 05-25-2023 13:55-0500 Respiratory rate 16 /min Dr. Carson Russell Work Phone: 2(307)203-346127 [address] 05-25-2023 13:55-0500 SaO2% (BldA) [Mass fraction] 95 % Dr. Carson Russell Work Phone: [facility] 05-25-2023 13:55-0500 Systolic blood pressure 108 mm[Hg] Dr. Carson Russell Work Phone: 0(057)162-871327 [place] [address] 05-25-2023 10:02-0500 Body height 152.[address] Carson Russell Work Phone: 7(899)428-263627 [place] [address] 05-25-2023 10:02-0500 Body mass index (BMI) [Ratio] 37.4 kg/m2 Dr. Carson Russell Work Phone: [facility] 05-25-2023 10:02-0500 Body weight [address] Carson Russell Work Phone: 2(762)051-730827 [place] [address] 05-03-2023 11:25-0500 Body height 152.[address] Carson Russell Work Phone: [facility] 05-03-2023 11:19-0500 Body mass index (BMI) [Ratio] 37.9 kg/m2 Dr. Carson Russell Work Phone: 8(883)900-364227 [place] [address] 05-03-2023 11:19-0500 Body weight 88.[address] Carson Russell Work Phone: [facility] 05-03-2023 11:19-0500 Diastolic blood pressure 82 mm[Hg] Dr. Carson Russell Work Phone: [facility] 05-03-2023 11:19-0500 Systolic blood pressure 130 mm[Hg] Dr. Carson Russell Work Phone: [facility] 04-05-2023 23:07-0400 Body mass index (BMI) [Ratio] 27 kg/m2 Dr. Carson Russell Work Phone: [facility] 03-06-2023 04:58-0400 Body mass index (BMI) [Ratio] 27 kg/m2 [facility] 12-04-2022 02:21-0400 Body mass index (BMI) [Ratio] 27 kg/m2 Dr. Carson Russell Work Phone: [facility] 11-09-2022 14:02-0400 Body height 152.[address] Carson Russell Work Phone: [facility] 11-09-2022 14:02-0400 Body mass index (BMI) [Ratio] 36.3 kg/m2 Dr. Carson Russell Work Phone: [facility] 11-09-2022 14:02-0400 Body weight 84.[address] Carson Russell Work Phone: [facility] 11-09-2022 14:02-0400 Diastolic blood pressure 79 mm[Hg] Dr. Carson Russell Work Phone: [facility] 11-09-2022 14:02-0400 Heart rate 84 /min Dr. Carson Russell Work Phone: [facility] 11-09-2022 14:02-0400 Respiratory rate 18 /min Dr. Carson Russell Work Phone: [facility] 11-09-2022 14:02-0400 Systolic blood pressure 119 mm[Hg] Dr. Carson Russell Work Phone: [facility] 11-08-2022 10:21-0400 Body mass index (BMI) [Ratio] 36.5 kg/m2 Dr. Carson Russell Work Phone: [facility] 11-08-2022 10:21-0400 Body weight 84.[address] Carson Russell Work Phone: [facility] 11-08-2022 10:21-0400 Diastolic blood pressure 86 mm[Hg] Dr. Carson Russell Work Phone: [facility] 11-08-2022 10:21-0400 Heart rate 79 /min Dr. Carson Russell Work Phone: [facility] 11-08-2022 10:21-0400 Respiratory rate 19 /min Dr. Carson Russell Work Phone: [facility] 11-08-2022 10:21-0400 SaO2% (BldA) [Mass fraction] 96 % Dr. Carson Russell Work Phone: [facility] 11-08-2022 10:21-0400 Systolic blood pressure 133 mm[Hg] Dr. Carson Russell Work Phone: [facility] 10-03-2022 05:19-0400 Body mass index (BMI) [Ratio] 27 kg/m2 Dr. Carson Russell Work Phone: [facility] 09-03-2022 20:51-0400 Body mass index (BMI) [Ratio] 27 kg/m2 Dr. Carson Russell Work Phone: [facility] 08-16-2022 21:41-0400 Diastolic blood pressure 82 mm[Hg] Dr. Carson Russell Work Phone: [facility] 08-16-2022 21:41-0400 Heart rate 78 /min Dr. Carson Russell Work Phone: [facility] 08-16-2022 21:41-0400 Respiratory rate 16 /min Dr. Carson Russell Work Phone: [facility] 08-16-2022 21:41-0400 SaO2% (BldA) [Mass fraction] 98 % Dr. Carson Russell Work Phone: [facility] 08-16-2022 21:41-0400 Systolic blood pressure 140 mm[Hg] Dr. Carson Russell Work Phone: 2(806)163-055327 [place] [address] 08-16-2022 18:22-0400 Body height 152.[address] Carson Russell Work Phone: 8(330)957-949246 [place] [address] 08-16-2022 18:22-0400 Body mass index (BMI) [Ratio] 35.3 kg/m2 Dr. Carson Russell Work Phone: 2(176)813-616146 [place] [address] 08-16-2022 18:22-0400 Body temperature 97 [degF] Dr. Carson Russell Work Phone: 4(030)427-747046 [place] [address] 08-16-2022 18:22-0400 Body weight [address] Carson Russell Work Phone: 9(613)225-246946 [place] [address] 08-03-2022 23:16-0500 Body mass index (BMI) [Ratio] 27 kg/m2 Dr. Carson Russell Work Phone: 6(582)389-247646 [place] [address] 07-14-2022 12:51-0500 Body height 152.[address] Carson Russell Work Phone: 5(841)223-177346 [place] [address] 07-14-2022 12:51-0500 Body mass index (BMI) [Ratio] 36.3 kg/m2 Dr. Carson Russell Work Phone: [facility] 07-14-2022 12:51-0500 Body temperature 98.4 [degF] Dr. Carson Russell Work Phone: 8(546)219-453727 [address] 07-14-2022 12:51-0500 Body weight 84.[address] Carson Russell Work Phone: 3(502)494-044127 [place] [address] 07-14-2022 12:51-0500 Diastolic blood pressure 80 mm[Hg] Dr. Carson Russell Work Phone: 9(204)421-496927 [place] [address] 07-14-2022 12:51-0500 Heart rate 80 /min Dr. Carson Russell Work Phone: [facility] 07-14-2022 12:51-0500 Respiratory rate 14 /min Dr. Carson Russell Work Phone: 7(676)049-370446 [place] [address] 07-14-2022 12:51-0500 SaO2% (BldA) [Mass fraction] 98 % Dr. Carson Russell Work Phone: 2(772)346-555227 [place] [address] 07-14-2022 12:51-0500 Systolic blood pressure 134 mm[Hg] Dr. Carson Russell Work Phone: 2(504)557-416646 [place] [address] 07-07-2022 07:36-0500 Body mass index (BMI) [Ratio] 27 kg/m2 Dr. Carson Russell Work Phone: 3(959)047-796446 [place] [address] 06-06-2022 06:26-0500 Body mass index (BMI) [Ratio] 27 kg/m2 Dr. Carson Russell Work Phone: 6(766)052-948446 [place] [address] 05-06-2022 02:25-0500 Body mass index (BMI) [Ratio] 27 kg/m2 Dr. Carson Russell Work Phone: 4(908)486-418646 [place] [address] 04-06-2022 10:26-0400 Body mass index (BMI) [Ratio] 27 kg/m2 Dr. Carson Russell Work Phone: 0(354)087-840646 [place] [address] 03-25-2022 09:00-0400 Diastolic blood pressure 81 mm[Hg] Dr. Carson Russell Work Phone: 3(267)255-759146 [place] [address] 03-25-2022 09:00-0400 Systolic blood pressure 131 mm[Hg] Dr. Carson Russell Work Phone: 4(688)287-900146 [place] [address] 03-25-2022 08:42-0400 Body height 152.[address] Carson Russell Work Phone: 3(043)172-157446 [place] [address] 03-25-2022 08:42-0400 Body mass index (BMI) [Ratio] 33.7 kg/m2 Dr. Carson Russell Work Phone: 1(847)332-399027 [address] 03-25-2022 08:42-0400 Body weight 78.[address] Carson Russell Work Phone: [facility] 03-25-2022 08:42-0400 Heart rate 82 /min Dr. Carson Russell Work Phone: [facility] 03-25-2022 08:42-0400 SaO2% (BldA) [Mass fraction] 99 % Dr. Carson Russell Work Phone: [facility] 03-17-2022 10:57-0400 Body mass index (BMI) [Ratio] 33.4 kg/m2 Tara Marcial MD Work Phone: [facility] 03-17-2022 10:57-0400 Body temperature 97.3 [degF] Tara Marcial MD Work Phone: [facility] 03-17-2022 10:57-0400 Body weight 77.56 kg Tara Marcial MD Work Phone: [facility] 03-17-2022 10:57-0400 Diastolic blood pressure 84 mm[Hg] Tara Marcial MD Work Phone: [facility] 03-17-2022 10:57-0400 Heart rate 86 /min Tara Marcial MD Work Phone: [facility] 03-17-2022 10:57-0400 Systolic blood pressure 135 mm[Hg] Tara Marcial MD Work Phone: [facility] 03-06-2022 01:49-0400 Body mass index (BMI) [Ratio] 27 kg/m2 Dr. Carson Russell Work Phone: [facility] 02-04-2022 01:00-0400 Body mass index (BMI) [Ratio] 27 kg/m2 Dr. Carson Russell Work Phone: [facility] Work Phone: 01-18-2022 16:51-0400 Body temperature 97.5 [degF] Dr. Carson Russell Work Phone: [facility] Work Phone: 01-18-2022 16:51-0400 Diastolic blood pressure 59 mm[Hg] Dr. Carson Russell Work Phone: [facility] Work Phone: 01-18-2022 16:51-0400 Heart rate 78 /min Dr. Carson Russell Work Phone: [facility] Work Phone: 01-18-2022 16:51-0400 Respiratory rate 16 /min Dr. Carson Russell Work Phone: [facility] Work Phone: 01-18-2022 16:51-0400 SaO2% (BldA) [Mass fraction] 95 % Dr. Carson Russell Work Phone: [facility] Work Phone: 01-18-2022 16:51-0400 Systolic blood pressure 96 mm[Hg] Dr. Carson Russell Work Phone: [facility] Work Phone: 01-18-2022 15:46-0400 Body height 152.[address] Carson Russell Work Phone: [facility] Work Phone: 01-18-2022 15:46-0400 Body mass index (BMI) [Ratio] 31.4 kg/m2 Dr. Carson Russell Work Phone: [facility] Work Phone: 01-18-2022 15:46-0400 Body weight [address] Carson Russell Work Phone: [facility] Work Phone: 01-03-2022 03:26-0400 Body mass index (BMI) [Ratio] 27 kg/m2 Dr. Carson Russell Work Phone: [facility] Work Phone: 12-04-2021 08:15-0400 Body mass index (BMI) [Ratio] 27 kg/m2 Dr. Carson Russell Work Phone: [facility] Work Phone: 12-03-2021 08:36-0400 Body height 152.[address] Carson Russell Work Phone: [facility] Work Phone: 12-03-2021 08:36-0400 Body mass index (BMI) [Ratio] 32.8 kg/m2 Dr. Carson Russell Work Phone: [facility] Work Phone: 12-03-2021 08:36-0400 Body weight 76.[address] Carson Russell Work Phone: [facility] Work Phone: 12-03-2021 08:36-0400 Diastolic blood pressure 74 mm[Hg] Dr. Carson Russell Work Phone: [facility] Work Phone: 12-03-2021 08:36-0400 Heart rate 82 /min Dr. Carson Russell Work Phone: [facility] Work Phone: 12-03-2021 08:36-0400 Respiratory rate 18 /min Dr. Carson Russell Work Phone: [facility] Work Phone: 12-03-2021 08:36-0400 SaO2% (BldA) [Mass fraction] 97 % Dr. Carson Russell Work Phone: [facility] Work Phone: 12-03-2021 08:36-0400 Systolic blood pressure 109 mm[Hg] Dr. Carson Russell Work Phone: [facility] Work Phone: 11-03-2021 21:46-0400 Body mass index (BMI) [Ratio] 27 kg/m2 Dr. Carson Russell Work Phone: [facility] Work Phone: 10-04-2021 05:26-0400 Body mass index (BMI) [Ratio] 27 kg/m2 [facility] Work Phone: 09-11-2021 14:59-0400 Body mass index (BMI) [Ratio] 32.19 kg/m2 Bunny Susie [employer] Work Phone: [facility] 09-11-2021 14:59-0400 Body temperature 98.1 [degF] Bunny Susie [employer] Work Phone: [facility] 09-11-2021 14:59-0400 Body weight 74.75 kg Bunny Susie [employer] Work Phone: [facility] 09-11-2021 14:59-0400 Diastolic blood pressure 73 mm[Hg] Bunny Susie [employer] Work Phone: [facility] 09-11-2021 14:59-0400 Heart rate 85 /min Bunny Susie [employer] Work Phone: [facility] 09-11-2021 14:59-0400 Systolic blood pressure 121 mm[Hg] Bunny Susie [employer] Work Phone: [facility] 09-09-2021 12:47-0400 Body temperature 98.2 [degF] [facility] Work Phone: 09-09-2021 12:46-0400 Diastolic blood pressure 63 mm[Hg] [facility] Work Phone: 09-09-2021 12:46-0400 Heart rate 75 /min [facility] Work Phone: 09-09-2021 12:46-0400 Respiratory rate 23 /min [facility] Work Phone: 09-09-2021 12:46-0400 SaO2% (BldA) [Mass fraction] 96 % [facility] Work Phone: 09-09-2021 12:46-0400 Systolic blood pressure 99 mm[Hg] [facility] Work Phone: 09-09-2021 10:01-0400 Body height 152.4 cm [facility] Work Phone: 09-09-2021 10:01-0400 Body mass index (BMI) [Ratio] 31.4 kg/m2 [facility] Work Phone: 09-09-2021 10:01-0400 Body weight 73 kg [facility] Work Phone: 09-04-2021 03:01-0400 Body mass index (BMI) [Ratio] 27 kg/m2 [facility] Work Phone: 08-04-2021 10:19-0500 Body mass index (BMI) [Ratio] 27 kg/m2 Dr. Carson Russell Work Phone: [facility] Work Phone: 08-04-2021 09:19-0500 Body mass index (BMI) [Ratio] 27 kg/m2 [facility] Work Phone: 08-01-2021 11:40-0500 Heart rate 80 /min [facility] Work Phone: 08-01-2021 11:40-0500 Respiratory rate 16 /min [facility] Work Phone: 08-01-2021 11:09-0500 Body temperature 97.9 [degF] [facility] Work Phone: 08-01-2021 11:09-0500 Diastolic blood pressure 90 mm[Hg] [facility] Work Phone: 08-01-2021 11:09-0500 Systolic blood pressure 160 mm[Hg] [facility] Work Phone: 08-01-2021 08:54-0500 Body mass index (BMI) [Ratio] 34.2 kg/m2 [facility] Work Phone: 08-01-2021 08:54-0500 Body weight 79.5 kg [facility] Work Phone: 08-01-2021 08:54-0500 SaO2% (BldA) [Mass fraction] 100 % [facility] Work Phone: 07-07-2021 00:45-0500 Body mass index (BMI) [Ratio] 27 kg/m2 [facility] Work Phone: 06-07-2021 17:21-0500 Body mass index (BMI) [Ratio] 27 kg/m2 [facility] Work Phone: 09-27-2019 13:33-0400 BMI (Body Mass Index) 25.11 kg/m2 Joselyn [facility] Work Phone: 09-27-2019 13:33-0400 Body Temperature 97.7 [degF] Joselyn Foreman [facility] Work Phone: Comment on above: Method: Temporal 09-27-2019 13:33-0400 Body weight 66.37 kg Joselyn Foreman [facility] Work Phone: 09-27-2019 13:33-0400 BP Diastolic 60 mm[Hg] Joselyn Foreman [facility] Work Phone: Comment on above: Location: [facility]; Position: Sitting 09-27-2019 13:33-0400 BP Systolic 84 mm[Hg] Joselyn Foreman [facility] Work Phone: Comment on above: Location: [facility]; Position: Sitting 09-27-2019 13:33-0400 BSA (Body Surface Area) 1.71 m2 Joselyn Foreman [facility] Work Phone: 09-27-2019 13:33-0400 Height 162.56 cm Joselyn Foreman [facility] Work Phone: 09-27-2019 13:33-0400 Pulse (Heart Rate) 75 /min Joselyn Foreman [facility] Work Phone: 09-27-2019 13:33-0400 Pulse Oximetry 95 % Joselyn Foreman [facility] Work Phone: Comment on above: Source: 09-27-2019 13:33-0400 Respiratory Rate 16 /min Joselyn Foreman [facility] Work Phone: 11-23-2018 15:34-0400 BMI (Body Mass Index) 25.41 kg/m2 Mayra Miroslava [facility]Ukpenrqifs[facility] Work Phone: 11-23-2018 15:34-0400 Body Temperature 99.5 [degF] Mayra Hernandesason XD-Oclofsnzdq[facility]J at [facility] Work Phone: Comment on above: Method: Tympanic 11-23-2018 15:34-0400 Body weight 67.16 kg Mayra Miroslava NV-Ubfgbqqtsa-Fg t her Work Phone: 11-23-2018 15:34-0400 BP Diastolic 76 mm[Hg] Mayra Miroslava HC-Yuhajbkdsq-Qj t her Work Phone: 11-23-2018 15:34-0400 BP Systolic 125 mm[Hg] Mayra Miroslava EV-Orqwvqnazs-Cj t her Work Phone: 11-23-2018 15:34-0400 BSA (Body Surface Area) 1.72 m2 Mayra Miroslava YM-Wzfcqhhmsb-Ceg her Work Phone: 11-23-2018 15:34-0400 Height 162.56 cm Mayra Miroslava GB-Xzixamgsjh-Ex t her Work Phone: 11-23-2018 15:34-0400 Pulse (Heart Rate) 76 /min Mayra Miroslava [facility] Work Phone: 11-23-2018 15:34-0400 Pulse Oximetry 100 % Mayra Miroslava RV-Lydzmtoymi-Lr t her Work Phone: 11-23-2018 15:34-0400 Respiratory Rate 17 /min Mayra [facility]Transplant[facility] at [facility] Work Phone: 11-23-2018 15:34-0400 0 1 Mayra [place] BX-Tucmzmgyrg-Bv t her Work Phone: Comment on above: Pain Scale 11-23-2018 13:34-0400 BMI (Body Mass Index) 25.47 kg/m2 Mayra [place] RQ-Wwsbzhosqu-Nxo her Work Phone: 11-23-2018 13:34-0400 Body Temperature 98.7 [degF] Mayra [facility] Work Phone: Comment on above: Method: Oral 11-23-2018 13:34-0400 Body weight 67.31 kg Mayra RODRÍGUEZOR-Hnpodrkwfa-Mn t her Work Phone: 11-23-2018 13:34-0400 BP Diastolic 84 mm[Hg] Mayra [place] KO-Zmrubukwty-Mt t her Work Phone: 11-23-2018 13:34-0400 BP Systolic 130 mm[Hg] Mayra [place] WH-Httpfgjdcq-Ug t her Work Phone: 11-23-2018 13:34-0400 BSA (Body Surface Area) 1.72 m2 Mayra [place] NL-Nnnhabczfr-Ixz her Work Phone: 11-23-2018 13:34-0400 Height 162.56 cm Mayra [place] TB-Krpibeapgj-Gv t her Work Phone: 11-23-2018 13:34-0400 Pulse (Heart Rate) 76 /min Mayra [place] [facility] Work Phone: 11-23-2018 13:34-0400 Pulse Oximetry 100 % Mayra [place] IQ-Hrgpkkouwr-Nv t her Work Phone: Comment on above: Source: 11-23-2018 13:34-0400 0 1 Mayra [place] WQ-Iuqkybcwhv-Rp t her Work Phone: Comment on above: Pain Scale Encounters Encounter Date Encounter Type Care Provider Facility Start: 10-25-2024 End: 10-25-[address] Carson Russell MD Work Phone: [facility] Work Phone: Start: 10-25-2024 End: 10-25-[address] 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 Carson Russell MD Work Phone: [facility] Work Phone: Start: 10-16-2024 End: 10-16-[address] Carson Russell MD Work Phone: -[facility] [place] Work Phone: Start: 10-16-2024 End: 10-16-2024 [facility] Start: 10-11-2024 End: 10-11-[address] Carson Russell MD Work Phone: [facility] Work Phone: Start: 10-11-2024 End: 10-11-[address] Krzysztof Wu MD -[facility] [place] Work Phone: Start: 10-11-2024 End: 10-11-2024 ambulatory Carson Russell Facility:[facility] Start: 10-03-2024 End: 10-03-[address] Carson Russell MD Work Phone: [facility] Work Phone: Start: 10-03-2024 End: 10-03-[address] Krzysztof Wu MD -[facility] [place] Work Phone: Start: 10-03-2024 End: 10-03-2024 ambulatory Carson Russell Facility:[facility] Start: 09-20-2024 End: 09-20-[address] [facility] Start: 09-20-2024 End: 09-20-2024 ambulatory STARLA PHILLIPS Facility:[facility] Start: 09-12-2024 End: 09-12-2024 Office outpatient visit 25 minutes Tara Marcial MD Work Phone: [facility] Comment on above: Kidney replaced by t ransplant (Primary Dx); Aftercare following organ transplant; Immunosuppressed status; Long-term use of immunosuppressant medication; High risk medication use; Other general symptoms and signs; Abnormal blood chemistry; Screening for viral disease; At risk for infection transmitted from donor; Other complication of liver transplant; HTN (hypertension), benign; Hyperlipidemia, unspecified hyperlipidemia type Start: 09-12-2024 ambulatory SELF SELF Facility:[facility] Start: 06-06-2024 ambulatory STARLA PHILLIPS Facility:[facility] Start: 06-04-2024 End: 06-04-2024 ambulatory STARLA PHILLIPS Facility:[facility] Start: 05-18-2024 End: 05-18-2024 ambulatory Debra Astudillo BROADCAST SUPERVISOR Facility:[facility] Start: 05-07-2024 End: 05-07-2024 ambulatory Debra Astudillo BROADCAST SUPERVISOR Facility:[facility] Start: 05-07-2024 End: 05-07-2024 ambulatory Carson Russell Facility:[facility] Start: 03-14-2024 End: 03-14-2024 ambulatory STARLA PHILLIPS Facility:[facility] Start: 01-28-2024 End: 01-28-2024 ambulatory Carson Russell Facility:[facility] Start: 12-29-2023 End: 12-29-2023 ambulatory Carson Russell Facility:[facility] Start: 11-28-2023 End: 11-28-2023 ambulatory STARLA PHILLIPS Facility:[facility] Start: 09-14-2023 End: 09-28-2023 Office outpatient visit 40 minutes Tara Marcial MD Work Phone: [facility] Comment on above: Kidney replaced by t ransplant (Primary Dx); Aftercare following organ transplant; Immunosuppressed status; High risk medication use; Other general symptoms and signs; Abnormal blood chemistry; At risk for infection transmitted from donor Start: 08-11-2023 End: 08-11-[address] Carson Russell Work Phone: [facility] Work Phone: Start: 08-11-2023 End: 08-11-[address] Carson Russell Work Phone: [facility] D[facility] Work Phone: Start: 07-28-2023 End: 07-28-[address] Carson Russell Work Phone: [facility] Work Phone: Start: 07-28-2023 End: 07-28-[address] Carson Russell Work Phone: [facility] Work Phone: Start: 07-12-2023 End: 08-04-[address] Carson Russell Work Phone: [facility] Work Phone: Start: 07-12-2023 End: 08-04-[address] Carson Russell Work Phone: [facility] Work Phone: Start: 07-12-[address] Carson Russell Work Phone: [facility] Work Phone: Start: 06-23-2023 End: 06-23-[address] Carson Russell Work Phone: [facility] Work Phone: Start: 06-23-2023 End: 06-23-[address] Carson Russell Work Phone: [facility] Work Phone: Start: 06-02-2023 End: 06-02-[address] Carson Russell Work Phone: [facility] Work Phone: Start: 06-02-2023 End: 06-02-[address] Carson Russell Work Phone: [facility] Work Phone: Start: 05-25-2023 End: 05-25-2023 Admission to same day surgery center Dr. Carson Russell Work Phone: [facility] Start: 05-16-2023 End: 05-16-[address] Carson Russell Work Phone: [facility]-Outpatient Breast Imaging Work Phone: Start: 05-16-2023 End: 06-05-[address] Carson Russell Work Phone: [facility] Work Phone: Start: 05-16-2023 End: 06-05-[address] Carson Russell Work Phone: [facility] Work Phone: Start: 05-16-[address] Carson Russell Work Phone: [facility] Work Phone: Start: 05-03-2023 End: 05-03-[address] Carson Russell Work Phone: [facility] Work Phone: Start: 05-03-2023 End: 05-03-[address] Carson Russell Work Phone: [facility] Work Phone: Start: 05-03-2023 End: 05-03-[address] Carson Russell Work Phone: [facility] Work Phone: Start: 03-14-2023 End: 03-14-2023 ambulatory [facility] Work Phone: Start: 03-14-2023 End: 03-14-2023 Discharged Recurring [facility] Work Phone: Start: 03-03-2023 End: 03-03-[address] Carson Russell Work Phone: [facility] Work Phone: Start: 02-15-2023 End: 02-15-[address] Carson Russell Work Phone: [facility] Work Phone: Start: 02-15-2023 End: 02-15-[address] Carson Russell Work Phone: [facility] Work Phone: Start: 02-14-2023 End: 02-14-[address] Carson Russell Work Phone: [facility] Work Phone: Start: 02-14-2023 End: 02-14-[address] Carson Russell Work Phone: [facility] Work Phone: Start: 02-14-[address] Carson Russell Work Phone: [facility] Work Phone: Start: 02-11-2023 End: 02-11-[address] Carson Russell Work Phone: [facility] Work Phone: Start: 02-11-2023 End: 02-11-[address] Carson Russell Work Phone: [facility] Work Phone: Start: 12-23-2022 End: 12-23-[address] Carson Russell Work Phone: [facility] Work Phone: Start: 12-13-2022 End: 12-13-[address] Carson Russell Work Phone: [facility] Work Phone: Start: 12-13-2022 End: 12-13-[address] Carson Russell Work Phone: [facility] Work Phone: Start: 11-16-2022 End: 11-16-[address] Carson Russell Work Phone: [facility] Work Phone: Start: 11-16-2022 End: 11-16-[address] Carson Russell Work Phone: [facility] Start: 11-09-2022 End: 11-09-[address] Carson Russell Work Phone: [facility] Start: 11-08-2022 End: 11-08-[address] Carson Russell Work Phone: [facility] Start: 11-08-2022 End: 11-08-[address] Carson Russell Work Phone: [facility] Work Phone: Start: 11-08-[address] Carson Russell Work Phone: [facility] Start: 09-13-2022 End: 10-03-[address] Carson Russell Work Phone: [facility] Work Phone: Start: 09-13-2022 End: 10-03-[address] Carson Russell Work Phone: [facility] Start: 08-17-2022 End: 08-17-[address] Carson Russell Work Phone: [facility] Work Phone: Start: 08-17-2022 End: 08-17-[address] Carson Russell Work Phone: [facility] Start: 08-16-2022 End: 08-16-2022 Emergency department patient visit Dr. Carson Russell Work Phone: [facility]-Emergency Department Start: 08-16-2022 End: 09-03-[address] Carson Russell Work Phone: [facility] Work Phone: Start: 08-16-2022 End: 09-03-[address] Carson Russell Work Phone: [facility] Start: 08-16-[address] Carson Russell Work Phone: [facility] Start: 07-19-2022 End: 07-19-[address] Carson Russell Work Phone: [facility] Work Phone: Start: 07-19-2022 End: 07-19-[address] Carson Russell Work Phone: [facility]-Laboratory, Specimen Start: 07-14-2022 End: 07-14-[address] Carson Russell Work Phone: [facility] Start: 07-12-2022 End: 07-12-[address] Carson Russell Work Phone: [facility] Work Phone: Start: 07-12-2022 End: 07-12-[address] Carson Russell Work Phone: [facility] Start: 07-12-[address] Carson Russell Work Phone: [facility] Start: 06-14-2022 End: 06-14-[address] Carson Russell Work Phone: [facility] Work Phone: Start: 06-14-2022 End: 06-14-[address] Carson Russell Work Phone: [facility] Start: 05-17-2022 End: 05-17-[address] Carson Russell Work Phone: [facility] Work Phone: Start: 05-17-2022 End: 05-17-[address] Carson Russell Work Phone: [facility] Start: 05-17-[address] Carson Russell Work Phone: [facility] Start: 05-13-2022 End: 05-13-[address] Carson Russell Work Phone: [facility] Work Phone: Start: 05-13-2022 End: 05-13-[address] Carson Russell Work Phone: [facility]-Outpatient Bone Densitometry Start: 05-04-2022 End: 05-05-2022 ambulatory DIEGO BOWMAN MD Facility:[facility] Start: 05-04-2022 End: 05-04-2022 Patient encounter procedure DIEGO BOWMAN MD [facility] Start: 04-19-2022 End: 05-05-[address] Carson Russell Work Phone: [facility] Work Phone: Start: 04-19-2022 End: 05-05-[address] Carson Russell Work Phone: [facility] Start: 03-25-2022 End: 03-25-[address] Carson Russell Work Phone: [facility] Start: 03-17-2022 End: 03-17-2022 Office outpatient visit 25 minutes Tara Marcial MD Work Phone: [facility] Comment on above: Kidney replaced by t ransplant (Primary Dx); Long-term use of immunosuppressant medication; Abnormal blood chemistry; High risk medication use; Immunosuppressed status; Aftercare following organ transplant; Other general symptoms and signs; Other complication of kidney transplant; HTN (hypertension), benign; Hyperlipidemia, unspecified hyperlipidemia type Start: 03-15-2022 End: 03-15-[address] Carson Russell Work Phone: [facility] Work Phone: Start: 03-15-2022 End: 03-15-[address] Carson Russell Work Phone: [facility] Start: 02-17-2022 End: 02-17-[address] Carson Russell Work Phone: [facility] Work Phone: Start: 02-17-2022 End: 02-17-[address] Carson Russell Work Phone: [facility]-Pulmonary Services/Neurology Start: 02-17-2022 Non-patient / Non-visit Dr. Ángel Russell Work Phone: [facility] Start: 02-15-2022 End: 02-15-[address] Carson Russell Work Phone: [facility] Work Phone: Start: 02-15-2022 End: 02-15-[address] Carson Russell Work Phone: [facility] Start: 02-15-[address] Carson Russell Work Phone: [facility] Start: 02-01-2022 End: 02-01-[address] Carson Russell Work Phone: [facility] Work Phone: Start: 02-01-2022 End: 02-01-[address] Carson Russell Work Phone: [facility] Start: 01-18-2022 End: 01-18-[address] [facility] Start: 12-14-2021 End: 01-03-[address] Carson Russell Work Phone: [facility] Start: 12-03-2021 End: 12-03-[address] Carson Russell Work Phone: [facility] Start: 11-16-2021 End: 12-03-[address] Carson Russell Work Phone: [facility] Start: 10-12-2021 End: 10-12-2021 Discharged Recurring [facility] Start: 09-22-2021 End: 09-22-2021 Patient encounter procedure [facility] Start: 09-11-2021 End: 10-09-2021 Office outpatient visit 25 minutes Bunny UMANA Work Phone: [facility] Comment on above: Immunosuppressed sta tus (Primary Dx); Kidney replaced by transplant; Long-term use of immunosuppressant medication; Abnormal blood chemistry; Aftercare following organ transplant; High risk medication use; Other general symptoms and signs; Hypertension secondary to other renal disorders Start: 09-09-2021 End: 09-09-2021 [facility] Start: 09-07-2021 End: 09-07-2021 Discharged Recurring [facility] Start: 09-07-2021 Registered Recurring [facility] Start: 08-24-2021 End: 09-03-2021 Discharged Recurring [facility] Start: 08-01-2021 End: 08-01-2021 [facility] Start: 07-27-2021 End: 07-27-2021 Discharged Recurring [facility] Start: 06-29-2021 End: 07-06-2021 Discharged Recurring [facility] Start: 06-11-2021 End: 06-11-2021 [facility] Start: 08-13-2020 End: 08-13-2020 Orders Only Theresa Gavin Work Phone: [facility] Start: 04-22-2020 End: 04-23-2020 Patient encounter procedure FRANDY DUNCAN CAMPO [facility] Start: 04-22-2020 End: 04-22-2020 Subsequent hospital visit by physician Provider Not In System [facility] External Films Comment on above: Arrived Start: 01-02-2020 Patient encounter procedure Jedte Brian MR-Jyvyyldnfg-Kgivio Work Phone: Start: 11-01-2019 Patient encounter procedure Deepika Manrique TJ-Ummakzbsqa-Sfshbb Work Phone: Start: 09-27-2019 Patient encounter procedure [facility] Work [facility]: Start: 12-08-2018 Patient encounter procedure Maggie Mayorga AT-Miwwsliveg-Eblxfew Moore Work Phone: Start: 11-23-2018 Patient encounter procedure Joselyn Foreman [facility] Work Phone: Start: 01-24-2017 Patient encounter procedure Niharika Olson AO-Eotsscibwe-Cbbitn Work Phone: Start: 12-13-2016 Patient encounter procedure Niharika MCDANIELSHH-Kzcbdesjqs-Eouziw Work Phone: Procedures Date Procedure Procedure Detail Performing Clinician Start: 10-25-[address] Carson Russell MD Work Phone: Comment on above: Target steady state trough concentration forTacrolimus varies based on type of organ transplantimmunosuppressive protocol and other patient specificfactors. Tacrolimus trough concentrations should beinterpreted in conjunction with clinical assessmentsof rejection and tolerability. Values obtained withdifferent assay methods cannot be used interchangeablydue to differences in assay methods and cross-reactivtywith metabolites, nor should correction factors beapplied. Therefore, consistent use of one assay forindividual patients is recommended.Detection Limit = 0.5 ng/mLPerformed by LC-MS/MS technology.Performed at: [facility] [place] [id number] Director: Amaury Dubois MD, Phone: [phone] Start: 10-16-[address] Carson Russell MD Work Phone: Start: 10-16-[address] Carson Russell MD Work Phone: Comment on above: Target steady state trough concentration forTacrolimus varies based on type of organ transplantimmunosuppressive protocol and other patient specificfactors. Tacrolimus trough concentrations should beinterpreted in conjunction with clinical assessmentsof rejection and tolerability. Values obtained withdifferent assay methods cannot be used interchangeablydue to differences in assay methods and cross-reactivtywith metabolites, nor should correction factors beapplied. Therefore, consistent use of one assay forindividual patients is recommended.Detection Limit = 0.5 ng/mLPerformed by LC-MS/MS technology.Performed at: [facility] [address] [id number] Director: Amaury Dubois MD, Phone: [phone] Start: 10-11-2024 Serum inorganic phosphate measurement Dr[address] Carson Russell MD Work Phone: Start: 10-11-[address] Carson Russell MD Work Phone: Comment on above: Target steady state trough concentration forTacrolimus varies based on type of organ transplantimmunosuppressive protocol and other patient specificfactors. Tacrolimus trough concentrations should beinterpreted in conjunction with clinical assessmentsof rejection and tolerability. Values obtained withdifferent assay methods cannot be used interchangeablydue to differences in assay methods and cross-reactivtywith metabolites, nor should correction factors beapplied. Therefore, consistent use of one assay forindividual patients is recommended.Detection Limit = 0.5 ng/mLPerformed by LC-MS/MS technology.Performed at: [facility] [id number] Director: Amaury Dubois MD, Phone: [phone] Start: 10-03-[address] Carson Russell MD Work Phone: Start: 10-03-2024 Serum inorganic phosphate measurement Dr[address] Carson Russell MD Work Phone: Start: 10-03-[address] Carson Russell MD Work Phone: Comment on above: Target steady state trough concentration forTacrolimus varies based on type of organ transplantimmunosuppressive protocol and other patient specificfactors. Tacrolimus trough concentrations should beinterpreted in conjunction with clinical assessmentsof rejection and tolerability. Values obtained withdifferent assay methods cannot be used interchangeablydue to differences in assay methods and cross-reactivtywith metabolites, nor should correction factors beapplied. Therefore, consistent use of one assay forindividual patients is recommended.Detection Limit = 0.5 ng/mLPerformed by LC-MS/MS technology Please note reference interval changePerformed at: [facility] [id number] Director: Amaury Dubois MD, Phone: [phone] Start: 10-03-2024 Vitamin D, 25-hydroxy measurement Dr. Ángel Russell MD Work Phone: Comment on above: Vitamin D StatusDeficiency: <20 ng/mL (5 0nmol/L)Insufficiency: 20-30 ng/mL (50-75 nmol/L)Sufficiency: 30-100 ng/mL (75-250 nmol/L)Toxicity: >100 ng/mL (>250 nmol/L) Start: 09-20-[address] measurement [address] Carson Russell MD Work Phone: Start: 09-20-[address] Carson Russell MD Work Phone: Comment on above: Target steady state trough concentration forTacrolimus varies based on type of organ transplantimmunosuppressive protocol and other patient specificfactors. Tacrolimus trough concentrations should beinterpreted in conjunction with clinical assessmentsof rejection and tolerability. Values obtained withdifferent assay methods cannot be used interchangeablydue to differences in assay methods and cross-reactivtywith metabolites, nor should correction factors beapplied. Therefore, consistent use of one assay forindividual patients is recommended.Detection Limit = 0.5 ng/mLPerformed by LC-MS/MS technology Please note reference interval changePerformed at: [address] [id number] Director: Amaury Dubois MD, Phone: [phone] Start: 09-12-2024 Creatinine other source Tara Marcial MD Work Phone: Start: 09-12-2024 Iadna nos quantification each organism Tara Marcial MD Work Phone: Start: 09-14-2023 Antibody hla class i high definition panel qual Keshia Preston MD, MBBS Work Phone: Start: 09-14-2023 Creatinine blood Tara Marcial MD Work Phone: Start: 09-14-2023 Iadna nos quantification each organism Tara Marcial MD Work Phone: Start: 05-16-[address] Carson Russell Work Phone: Start: 03-03-2023 Bacteria identified in Urine by Culture Dr. Carson Russell Work Phone: Start: 03-03-[address] Carson Russell Work Phone: Start: 02-15-[address] Carson Russell Work Phone: Start: 02-14-[address] Carson Russell Work Phone: Start: 12-23-2022 MRI of brain without contrast Dr. Carson Cortes [facility] Work Phone: Start: 08-17-2022 CT of abdomen and pelvis without contrast Dr. Carson Russell Work Phone: Start: 05-13-2022 Dual energy X-ray absorptiometry Dr. Serene Russell Work Phone: Start: 05-13-[address] Carson Russell Work Phone: Start: 03-17-2022 Creatinine other source Tara Marcial MD Work Phone: Start: 02-17-2022 Plain chest X-ray Dr. Carson Russell Work Phone: Start: 09-11-2021 Antibody hla class ii high definition panel qual Bunny S Susie BS Work Phone: Start: 09-11-2021 Bilirubin direct Bunny S Susie MBBS Work Phone: Start: 09-11-2021 Urnls dip stick/tablet reagent auto microscopy Bunny S Susie MBBS Work Phone: Start: 09-11-2021 Urnls dip stick/tablet rgnt auto w/o microscopy Bunny S Susie MBBS Work Phone: Start: 09-11-2021 Lipid 1996 panel - Serum or Plasma Bunny Richards BS Work Phone: Start: 09-09-2021 Bacteria identified in Blood by Culture Start: 09-09-2021 SARS-CoV-2 & FLU Antigen (Rapid) Start: 09-09-2021 Urine culture Start: 09-09-2021 Plain chest X-ray Start: 08-01-2021 Urine culture Start: 08-01-2021 CT of abdomen and pelvis without contrast Start: 09-18-2020 History of renal transplant S/P kidney transplant Bunny UMANA Work Phone: Start: 09-11-2020 History of renal transplant Renal transplant recipient Comment on above: Needs yearly paps Start: 04-22-2020 Computerized tomography, limited studies External Transcribed Start: 04-02-2020 Follow-up visit Start: 12-24-2019 Antibody hiv-1 Deepika Padiyar Start: 12-24-2019 Antibody varicella-zoster Deepika Padiyar Start: 12-24-2019 Echocardiography Deepika Padiyar Start: 12-24-2019 Hepatitis b core antibody hbcab total Deepika Padiyar Start: 12-24-2019 Hepatitis b surf antibody hbsab Deepika P adiyar Start: 12-24-2019 Hepatitis c antibody Deepika Padiyar Start: 12-24-2019 Iaad ia hepatitis b surface antigen Apar na Padiyar Start: 12-24-2019 Mycobacterium tuberculosis stimulated gamma interferon [Interpretation] in Blood Qualitative Deepika Padiyar Start: 12-24-2019 SYPHILIS SCREENING WITH REFLEX Deepika Pa diyar Start: 11-01-2019 Follow-up visit Start: 09-27-2019 Follow-up visit Start: 08-14-2019 Electrocardiogram Start: 08-10-2019 VASC LAB Arterial Duplex Ultrasound Hussain Foreman Start: 08-10-2019 VASC LAB Pre-op Vessel Vein Mapping Hussain Foreman Start: 12-08-2018 Echocardiography Maggie Mayorga Start: 11-24-2018 MRA Head without Contrast Deepika Padiyar Start: 11-24-2018 MRI Brain without Contrast Deepika Padiya r Bacteria identified in Blood by Culture Dr. Carson Russell Work Phone: Bilateral total nephrectomy Deepika Padiyar section Mayra Miroslava History of renal transplant Hist ory of kidney transplant History of renal transplant Kidn ey replaced by transplant Bunny UMANA Work Phone: History of renal transplant Kidn ey replaced by transplant Tara Marcial MD Work Phone: History of renal transplant Kidn ey replaced by transplant Tara Marcial MD Work Phone: History of renal transplant Kidn ey replaced by transplant Tara Marcial MD Work Phone: Laparoscopic cholecystectomy Mayra [place] SARS-CoV-2 & FLU Antigen (Rapid) Dr. Carson Russell Work Phone: Urine culture Dr. Carson Russell Work Phone: Plan of Treatment Date Care Activity Detail Author Start: 09-23-2032 Tetanus vaccination TETANUS [facility] Start: 12-17-2027 PNEUMOCOCCAL VACCINE SERIES (4 - PPSV23 if available, else PCV20) PNEUMOCOCCAL VACCINE SERIES (4 - PPSV23 if available, else PCV20) [facility] Start: 12-17-2027 PNEUMOCOCCAL VACCINE SERIES (4 of 4 - PPSV23 or PCV20) PNEUMOCOCCAL VACCINE SERIES (4 of 4 - PPSV23 or PCV20) [facility] Start: 11-19-2026 Pneumococcal vaccination PNEUMOCOCCAL VACCINE SERIES (4 of 4 - PCV20 or PCV21) [facility] Start: 09-11-2026 Fasting lipid profile LIPID SCREENIN G [facility] Start: 09-11-2026 Lipid panel LIPID SCREENING [facility] Start: 09-18-2025 End: 09-18-2025 Patient encounter procedure 09/18/2025 10:00 AM EDT Office Visit [facility] Transplant [facility] [address] [place] [id number] Tara Marcial MD [address] [place] [address] [facility] Start: 01-04-2025 ambulatory Ambulatory Facility:[facility] Start: 09-12-2024 End: 09-12-2024 Patient encounter procedure 09/12/2024 10:00 AM EDT Office Visit [facility] Trans[facility] [address] [place] [id number] Tara Marcial MD [address] [place] [address] [facility] Start: 09-11-2024 End: 09-11-2025 ALLOSCREEN RECIPIENT (POST TX PRA) ALLOSCREEN RECIPIENT (POST TX PRA) Lab Routine Kidney replaced by transplant Aftercare following organ transplant Immunosuppressed status Long-term use of immunosuppressant medication High risk medication use Other general symptoms and signs Abnormal blood chemistry Screening for viral disease At risk for infection transmitted from donor Expected: 09/11/2024, Expires: 09/11/2025 [facility] Comment on above: Expected: 09/11/2024 , Expires: 09/11/2025 Start: 08-11-2023 Dual energy X-ray absorptiometry Dexa Bone Density Study [facility] Start: 07-28-2023 Procedure [facility] Start: 05-25-2023 Anes transurethral w/urethrocystoscopy nos ANESTH BLADDER SURGERY [facility] Start: 05-25-2023 Litholapaxy smpl/sm <2.5 cm REMOVE BLADDER STONE [facility] Start: 05-25-2023 Patient discharge [facility] Start: 05-03-2023 Liquid based cervica l cytology screening [facility] Start: 09-20-2022 End: 09-20-2022 Patient encounter procedure 09/20/2022 Office Visit Transplant Surgery Tara Marcial MD [address] [place] [address] [facility] Start: 07-12-2022 Procedure [facility] Start: 03-17-2022 End: 03-17-2022 Patient encounter procedure 03/17/2022 Office Visit Transplant Surgery Tara Marcial MD [address] [place] [address] [facility] Start: 02-04-2022 Influenza vaccination INFLUENZA VACC INE (#1) [facility] Start: 09-09-2021 End: 09-09-2021 [facility] Work Phone: Start: 05-15-2020 End: 05-15-2020 Office Visit 05/15/2020 Office Visit General Surgery Frandy Campo MD [address] [phone] [facility] Start: 02-05-2020 Influenza vaccinatio n given Sequential Influenza Vaccine (#1) [facility] Start: 12-25-2019 Antibody hiv-1 HIV Antigen/An tibody Screen MJ-Jdfilwsonz-Swxpve Work Phone: Start: 12-25-2019 Antibody varicella-zoster Varicella Zoster IgG Antibody YU-Rpfdjkmila-Eriabv Work Phone: Start: 12-25-2019 Echocardiography Echocardiogram MG-T ransplant-Vuze Work Phone: Start: 12-25-2019 Hepatitis b core antibody hbcab total Hepatitis B Core Antibody, Total WV-Uugtvyzzwi-Ajlruw Work Phone: Start: 12-25-2019 Hepatitis b surf antibody hbsab TH-Qpachivptj-Ulqjge Work Phone: Start: 12-25-2019 Hepatitis c antibody Hepatitis C Antibody Test FP-Zxwemynivu-Utvhbs Work Phone: Start: 12-25-2019 Iaad ia hepatitis b surface antigen Hepatitis B Surface Antigen MN-Pjjryjcnet-Wszqda Work Phone: Start: 12-25-2019 M. tuberculosis stim IFN-g Ql (Bld) [Interp] T-SPOT. TB KG-Fscwawaqfo-Avmgxr Work Phone: Start: 12-25-2019 SYPHILIS SCREENING W ITH REFLEX SYPHILIS SCREENING WITH REFLEX CS-Tmqxsqmgmk-Jdsbpy Work Phone: Start: 12-01-2019 Screening for malign ant neoplasm of breast MAMMOGRAM SCREENING DISCUSSION [facility] Start: 12-01-2019 Screening mammography MAMMOGRA M SCREENING DISCUSSION [facility] Start: 11-15-2019 Colonoscopy COLORECTAL CAN CER SCREENING DISCUSSION [facility] Start: 11-15-2019 Screening for malign ant neoplasm of colon COLORECTAL CANCER SCREENING DISCUSSION [facility] Start: 08-19-2016 Hepatitis B vaccination HEP B VACCINE (2 of 3 - 19+ 3-dose series) [facility] Start: 2012 Administration of herpes zoster vaccine Zoster Vaccines (1 of 2) [facility] Start: 2012 Screening for malign ant neoplasm of colon [facility] Start: 2012 Zoster vaccine hzv l jayy for subcutaneous use ZOSTER (SHINGLES) VACCINE (1 of 2) [facility] Start: 10-27-2010 PNEUMOCOCCAL VACCINE SERIES (2 - PCV) PNEUMOCOCCAL VACCINE SERIES (2 - PCV) [facility] Start: 10-05-1995 Tetanus vaccination TETANUS [facility] Start: 12-17-1983 Screening for malign ant neoplasm of cervix CERVICAL CANCER SCREENING DISCUSSION [facility] Start: 1981 Third diphtheria, tetanus and acellular pertussis (DTaP) vaccination TDAP (ADULT) [facility] Start: 1981 Zoster vaccine hzv l jayy for subcutaneous use ZOSTER (SHINGLES) VACCINE (1 of 2) [facility] Start: 1980 Hepatitis C antibody , confirmatory test Hepatitis C Screening [facility] Start: 1978 COVID-19 Vaccine (1 of 2) COVID-19 Vaccine (1 of 2) [facility] Start: 1977 HIV screening HIV Screening [facility] Start: 1974 Adolescent depressio n screening assessment Depression Screening (PHQ9) [facility] Start: 12-17-1967 COVID-19 VACCINE (#1) COVID-19 VACCI NE (#1) [facility] Start: 1965 History and physical examination, annual for health maintenance Wellness Visit [facility] Start: 06-18-1963 COVID-19 VACCINE (#1) COVID-19 VACCI NE (#1) [facility] Start: 1962 Screening for malign ant neoplasm of cervix Pap Smear [facility] Start: 1962 Screening mammography Mammogram [facility] Start: 1962 Tetanus vaccination Tetanus: Every 1 0yrs [facility] ALLOSCREEN RECIPIENT (POST TX PRA) ALLOSCREEN RECIPIENT (POST TX PRA) Lab Routine Kidney replaced by transplant Aftercare following organ transplant Immunosuppressed status Long-term use of immunosuppressant medication High risk medication use Other general symptoms and signs Abnormal blood chemistry Screening for viral disease At risk for infection transmitted from donor 09/12/2024 10:41 AM EDT [facility] MG Breast - bilatera l Screening [facility] Path report.final Dx Spec [facility] Patient Education [facility] Work Phone: Patient referral [facility] Work Phone: Tacrolimus [Mass/volume] in Blood [facility] Work Phone: Tacrolimus [Mass/volume] in [facility] Tacrolimus [Mass/volume] in [facility] Tacrolimus [Mass/volume] in [facility] Tacrolimus [Mass/volume] in [facility] NEGATED: Highlighted row has been ruled out! Planned Goals not documented OT-Ubmeygafli-Qenssf Work Phone: Immunizations Immunization Date Immunization Notes Care Provider Donis gamez 03-23-2021 influenza virus vacc ine, unspecified formulation Tara Marcial MD Work Phone: [facility] 02-29-2020 Influenza virus vaccine [facility] 03-06-2019 influenza, injectabl e, quadrivalent, contains preservative Bunny Susie MBBS Work Phone: [facility] 02-04-2017 influenza, injectabl e, quadrivalent, contains preservative Bunny Susie MBBS Work Phone: [facility] 04-06-2016 influenza, seasonal, injectable Bnuny Susie MBBS Work Phone: [facility] 04-06-2013 influenza, seasonal, injectable Bunny Susie MBBS Work Phone: [facility] 10-27-2009 pneumococcal polysaccharide vaccine, 23 valent Bunny Susie MBBS Work Phone: [facility] 10-04-1985 diphtheria and tetan us toxoids, adsorbed for pediatric use Bunnyalfred Richards MBBS Work Phone: [facility] Payers Date Payer Category Payer Managed Care (unspecified) [facility] [id number] 2024 Unknown [id number] 2023 Self-pay [id number] 2022 Medicare [id number] 2019 Private Health Insurance [facility] [id number] 2019-Present [address] [place] [id number] 2019 Unknown [id number] 2019 Unknown [facility] HMO/COLES CE PLUS/LYNDA/LYNDA PLUS [id number] 2019-Present [id number] 2016 Unknown [id number] 2011 Medicare [id number] 2011 Medicare [id number] 2011 Medicare MEDICARE MEDICAR E PART A & B [id number] 2011-Present [place] [id number] 1962 Unknown [id number] 1962 Unknown [id number] [id number] 1962 Unknown [id number] .627 1962 Unknown [id number] .594 Unknown [id number] [id number] .462 Unknown [id number] 2.16.840.1.279215.3.579.2 .462 Unknown [id number] [id number] .462 Unknown [id number] [id number] .462 Unknown [id number] 2.16.840.1.677853.3.579.2 .462 Unknown [id number] 2.16.840.1.039546.3.579.2 .462 Unknown [id number] [id number] .462 Unknown [id number] 2.16.840.1.617394.3.579.2 .462 Unknown [id number] [id number] .462 Unknown [id number] 2.16.840.1.668761.3.579.2 .462 Unknown [id number] 2.16.840.1.564950.3.579.2 .462 Unknown [id number] [id number] .462 Unknown [id number] [id number] .462 Unknown [id number] [id number] .462 Unknown [id number] .462 Social History Date Type Detail Facility Start: 1960 Sex Assigned At Not on file O [facility] Start: 09-09-2021 End: 05-09-2023 Tobacco smoking status WVIS Unknown if ever smoked [facility] Start: 04-24-2020 None [facility] Start: 04-24-2020 Spouse/ Signif icant Other [facility] Start: 04-24-2020 Non-smoker [facility] Start: 1960 Sex Assigned At Female A [facility] Start: 10-11-2019 End: 05-09-2023 Tobacco smoking status NHIS Never smoked tobacco [facility] Start: 10-11-2019 Tobacco use and exposure Smoke less tobacco non-user [facility] Start: 09-12-2020 Alcohol intake Lifetime non-d tatyana (finding) [facility] Start: 10-11-2019 History SDOH Alcohol Frequency 1 [facility] Start: 09-01-2021 End: 09-11-2021 Exposure to SARS-CoV-2 (event) Not sure [facility] Tobacco smoking status No Smokin g Status Entered [facility] Start: 10-11-2019 End: 09-12-2020 History of Social function [facility] Start: 10-11-2019 End: 09-12-2020 Alcohol Use Disorder Identification Test - Consumption [AUDIT-C] [facility] How often to you hav e a drink containing alcohol? Never [facility] Average Number of Drinks Not on file [facility] Start: 08-18-2021 Gender identity Identifies as female gender (finding) [facility] Start: 08-18-2021 Sexual orientation Heterosexua l (finding) [facility] Start: 02-07-2019 Sex Female (finding) [facility] NEGATED: Highlighted row - - KN-Nnzrsuywri-Oqeol r Work Phone: NEGATED: Highlighted row [facility] Medical Equipment Procedure Code Equipment Code Equipment Origin al Text Equipment Identifier Dates Stent Ureteral 6 fr 12cm 100cm .028in Closed Tip Push - [id number] Start: 09-11-2020 Stent Ureteral 6 fr 12cm 100cm .028in Closed Tip Push - [id number] Start: 10-06-2020 Goals Date Patient Goal Desired Activity /State Functional Status Date Assessment Result Facility 09-11-2020 Do you have serious difficulty walking or climbing stairs No 09/11/2020 1:07 AM EDT Day, KIARA Henning No [facility] 09-11-2020 Are you deaf, or do you have serious difficulty hearing No 09/11/2020 1:05 AM EDT Day, KIARA Henning No [facility] 09-11-2020 Are you blind, or do you have serious difficulty seeing, even when wearing glasses No 09/11/2020 1:05 AM EDT Day, KIARA Henning No [facility] 09-11-2020 Do you have difficul ty dressing or bathing No 09/11/2020 1:05 AM EDT DayMilady RN No [facility] 09-11-2020 Because of a physica l, mental, or emotional condition, do you have difficulty doing errands alone such as visiting a physician's office or shopping No 09/11/2020 1:05 AM EDT Day, KIARA Henning No [facility] NEGATED: Highlighted row Functional performance Functional status health issues are not documented Disease HY-Tjkcqikncj-Gpxjp r Work Phone: Mental Status Date Assessment Result Facility 05-25-2023 Cognitive function Level Of Cons ciousness Follows Commands;Drowsy [facility] Work Phone: 05-25-2023 Cognitive function Voice/Name [facility] Work Phone: 01-18-2022 Cognitive function Voice/Name;To uch/Shakin g;Light Pain;Deep Pain [facility] Work Phone: 09-09-2021 Cognitive function Level Of Cons ciousness Awake;Alert;Appropriate ;Follows Commands [facility] Work Phone: 09-11-2020 Because of a physical, mental, or emotional condition, do you have serious difficulty concentrating, remembering, or making decisions No 09/11/2020 1:05 AM EDMilady Askew RN No [facility] NEGATED: Highlighted row Cognitive function [Interpretation] Cognitive status health issues are not documented Disease VX-Naeyinwnlq-Ucuct r Work Phone: Clinical Notes 09-11-2020 to 09-12-2024 Tara Marcial MD - 09/12/2024 10:00 AM Marco Marcial MD - 09/12/2024 10:00 AM Anthony Boyer RN - 09/12/2024 10:00 AM Manjit Blanc RN - 09/12/2024 10:00 AM EDTRadiology Note Date & Type Note Facility 09-12-2024 History and physical note Images from the original note were not included. Today we were happy to see Cate Fox at [facility] Post Transplant Office for evaluation and management of immunosuppression and associated conditions in the setting of solid organ transplantation. As you may be aware Ms. Fox is a 63 y.o. year-old female with a past medical history of ESRD. She received an organ transplant from a Donation after Circulatory Kidney Donor on 09/11/2020 (Kidney). The patient is currently 1462 days out from transplantation. There has been a review of the patient s chart shows for significant events post-transplant The patient was last seen for follow-up at the [facility] on 09/12/24. The patient's recent medical history, general state [...] as needed. allopurinol 100 MG tablet Take 1 tablet by mouth every Tuesday, Tuesday, Tuesday dinner. aspirin 81 MG Chew Tab chewable tablet Chew 1 tablet daily. atorvastatin 20 MG tablet Take 1 tablet by mouth at bedtime. Gabapentin 100 MG capsule Take 1 capsule by mouth daily. magnesium oxide 400 (241.3 Mg) MG tablet Take 1 tablet by mouth 2 times daily. Mycophenolate sodium (MYFORTIC) [address] DR TAKE 1 TABLET BY MOUTH EVERY 12 HOURS ondansetron 4 MG tablet Take 1 tablet by mouth every 8 hours as needed for Nausea. oxyCODONE 5 MG tablet Take 1 tablet by mouth as needed for Pain. Sulfamethoxazole-trimethoprim 800-160 MG per tablet Take 1 tablet by mouth three times a week. Tacrolimus (PROGRAF) 1 MG capsule TAKE 2 CAPSULES BY MOUTH DAILY EVERY MORNING AND 1 CAPSULE BY MOUTH EVERY EVENING PHYSICAL EXAM: VITALS: Blood pressure 142/67, pulse 81, temperature 97.6 F (36.4 C), temperature source Temporal, weight 95.3 kg (210 lb). GENERAL: Alert and oriented x 3 [...] MANUAL ENTER Date Value Ref Range Status 06/04/2024 8.1 Final Hemoglobin (HGB), MANUAL ENTER Date Value Ref Range Status 06/04/2024 13.0 Final HEMATOCRIT (HCT), MANUAL ENTER Date Value Ref Range Status 06/04/2024 40.4 Final PLATELETS, MANUAL ENTER Date Value Ref Range Status 06/04/2024 289 Final SODIUM (NA), MANUAL ENTER Date Value Ref Range Status 06/04/2024 141 mmol/L Final Chloride (CL), MANUAL ENTER Date Value Ref Range Status 06/04/2024 116 Final Blood Urea Nitrogen (BUN), MANUAL ENTER Date Value Ref Range Status 06/04/2024 25 Final POTASSIUM (K+), MANUAL ENTER Date Value Ref Range Status 06/04/2024 4.3 Final CREATININE, SERUM, MANUAL ENTER Date Value Ref Range Status 06/04/2024 1.32 Final GLUCOSE, MANUAL ENTER Date Value Ref Range Status 06/04/2024 115 Final AST, MANUAL ENTER Date Value Ref Range Status 11/28/2023 14 Final ALT, MANUAL ENTER Date Value Ref Range Status 11/28/2023 22 Final GGT, MANUAL ENTER Date Value Ref Range Status 05/16/2023 31 Final Bilirubin, Total, MANUAL ENTER Date Value Ref Range Status 11/28/2023 0.5 Final CALCIUM (CA), MANUAL ENTER Date Value Ref Range Status 06/04/2024 10.0 Final Phosphate (PO4), Manual Enter Date Value Ref Range Status 06/04/2024 1.6 Final MAGNESIUM (MG), MANUAL ENTER Date Value Ref Range Status 06/04/2024 1.7 Final ASSESSMENT AND PLAN: Status Post-Transplant: Stable Latest Creatinine Lab Results Component Value Date CREATSERUM 1.32 06/04/2024 CREATURINE 91.5 11/28/2023 Patient is within the usual baseline. No interventions are warranted at this time. Immunosuppression Management: Current Immunosuppressive Medication(s) Immunosuppressive Agents Mycophenolate sodium (MYFORTIC) [address] tablet DR TAKE 1 TABLET BY MOUTH EVERY 12 HOURS Tacrolimus (PROGRAF) 1 MG capsule TAKE 2 CAPSULES BY MOUTH DAILY EVERY MORNING AND 1 CAPSULE BY MOUTH EVERY EVENING 2. Immunosuppression Management: We will continue close monitoring for drug levels and toxicity via regularly scheduled laboratory assays High Risk Medical Decision Making For Drug Therapy Requiring Intensive Monitoring For Toxicity given the narrow therapeutic index of the immunosuppressive drug therapy listed below. Current Immunosuppressive Medication(s) Immunosuppressive Agents Mycophenolate sodium (MYFORTIC) [address] tablet DR TAKE 1 TABLET BY MOUTH EVERY 12 HOURS Tacrolimus (PROGRAF) 1 MG capsule TAKE 2 CAPSULES BY MOUTH DAILY EVERY MORNING AND 1 CAPSULE BY MOUTH EVERY EVENING Current Immunosuppressive medication(s) include: Current Immunosuppressive Medication(s) Immunosuppressive Agents Mycophenolate sodium (MYFORTIC) [address] tablet DR TAKE 1 TABLET BY MOUTH EVERY 12 HOURS Tacrolimus (PROGRAF) 1 MG capsule TAKE 2 CAPSULES BY MOUTH DAILY EVERY MORNING AND 1 CAPSULE BY MOUTH EVERY EVENING I/S levels: Lab Results Component Value Date [...] was BP Readings from Last 1 Encounters: 09/12/24 142/67 Per the patient home systolic blood pressures have been averaging in the 120 mmHg These values are acceptable. An intervention is not indicated at this time. Anemia: Stable Latest hemoglobin Hemoglobin (HGB), MANUAL ENTER Date Value Ref Range Status 06/04/2024 13.0 Final Acceptable per current post-transplant protocols. An intervention is not indicated at this time. Proteinuria: Stable Last Urine Protein/Creatinine Ratio: PROTEIN/CREATININE RATIO, MANUAL ENTER Date Value Ref Range Status 11/28/2023 0.109 Final Prot/Creat Ratio Date Value Ref Range Status 09/14/2023 0.098 mg/mg Final At Goal. An intervention is not indicated at this time. Hyperphosphatemia: Stable Last Phosphorous Level: Phosphate (PO4), Manual Enter Date Value Ref Range Status 06/04/2024 1.6 Final A phosphorus binder is not indicated at this time. Hypercalcemia: Stable Last Calcium Level: CALCIUM (CA), MANUAL ENTER Date Value Ref Range Status 06/04/2024 10.0 Final No interventions are warranted at this time. Secondary Hyperparathyroidism: Stable Last PTH PTH INTACT, MANUAL ENTER Date Value Ref Range Status 11/28/2023 147.1 Final No interventions are warranted at this time. Hyperlipidemia: Stable Current lipid therapy includes: as noted above TOTAL CHOLESTERL, MANUAL ENTER Date Value Ref Range Status 11/28/2023 145 Final HDL, MANUAL ENTER Date Value Ref Range Status 11/28/2023 69 Final LDL, MANUAL ENTER Date Value Ref Range Status 11/28/2023 52 Final TRIGLYCERIDES, MANUAL ENTER Date Value Ref Range Status 11/28/2023 119 Final No results found for: TCHHDLMANENT An [...] will follow-up with us in clinic in 12 months however we will see patient earlier should the need arise. We have ordered transplant specific labs per the center s guidelines to monitor and assess for toxicities from immunosuppressant drug therapy. Thank you for allowing us to partake in the care of your patient. Should you have any questions please do not hesitate to contact me. [facility] 09-12-2024 History and physical note Images from the original note were not included. Today we were happy to see Cate Fox at [facility] Post Transplant Office for evaluation and management of immunosuppression and associated conditions in the setting of solid organ transplantation. As you may be aware Ms. Fox is a 63 y.o. year-old female with a past medical history of ESRD. She received an organ transplant from a Donation after [facility]cul[facility] Kidney Donor on 09/11/2020 (Kidney). The patient is currently 1462 days out from transplantation. There has been a review of the patient s chart shows for significant events post-transplant The patient was last seen for follow-up at the [facility] on 09/12/24. The patient's recent medical history, general state [...] as needed. allopurinol 100 MG tablet Take 1 tablet by mouth every Tuesday, Tuesday, Tuesday dinner. aspirin 81 MG Chew Tab chewable tablet Chew 1 tablet daily. atorvastatin 20 MG tablet Take 1 tablet by mouth at bedtime. Gabapentin 100 MG capsule Take 1 capsule by mouth daily. magnesium oxide 400 (241.3 Mg) MG tablet Take 1 tablet by mouth 2 times daily. Mycophenolate sodium (MYFORTIC) [address] tablet DR TAKE 1 TABLET BY MOUTH EVERY 12 HOURS ondansetron 4 MG tablet Take 1 tablet by mouth every 8 hours as needed for Nausea. oxyCODONE 5 MG tablet Take 1 tablet by mouth as needed for Pain. Sulfamethoxazole-trimethoprim 800-160 MG per tablet Take 1 tablet by mouth three times a week. Tacrolimus (PROGRAF) 1 MG capsule TAKE 2 CAPSULES BY MOUTH DAILY EVERY MORNING AND 1 CAPSULE BY MOUTH EVERY EVENING PHYSICAL EXAM: VITALS: Blood pressure 142/67, pulse 81, temperature 97.6 F (36.4 C), temperature source Temporal, weight 95.3 kg (210 lb). GENERAL: Alert and oriented x 3 [...] MANUAL ENTER Date Value Ref Range Status 06/04/2024 8.1 Final Hemoglobin (HGB), MANUAL ENTER Date Value Ref Range Status 06/04/2024 13.0 Final HEMATOCRIT (HCT), MANUAL ENTER Date Value Ref Range Status 06/04/2024 40.4 Final PLATELETS, MANUAL ENTER Date Value Ref Range Status 06/04/2024 289 Final SODIUM (NA), MANUAL ENTER Date Value Ref Range Status 06/04/2024 141 mmol/L Final Chloride (CL), MANUAL ENTER Date Value Ref Range Status 06/04/2024 116 Final Blood Urea Nitrogen (BUN), MANUAL ENTER Date Value Ref Range Status 06/04/2024 25 Final POTASSIUM (K+), MANUAL ENTER Date Value Ref Range Status 06/04/2024 4.3 Final CREATININE, SERUM, MANUAL ENTER Date Value Ref Range Status 06/04/2024 1.32 Final GLUCOSE, MANUAL ENTER Date Value Ref Range Status 06/04/2024 115 Final AST, MANUAL ENTER Date Value Ref Range Status 11/28/2023 14 Final ALT, MANUAL ENTER Date Value Ref Range Status 11/28/2023 22 Final GGT, MANUAL ENTER Date Value Ref Range Status 05/16/2023 31 Final Bilirubin, Total, MANUAL ENTER Date Value Ref Range Status 11/28/2023 0.5 Final CALCIUM (CA), MANUAL ENTER Date Value Ref Range Status 06/04/2024 10.0 Final Phosphate (PO4), Manual Enter Date Value Ref Range Status 06/04/2024 1.6 Final MAGNESIUM (MG), MANUAL ENTER Date Value Ref Range Status 06/04/2024 1.7 Final ASSESSMENT AND PLAN: Status Post-Transplant: Stable Latest Creatinine Lab Results Component Value Date CREATSERUM 1.32 06/04/2024 CREATURINE 91.5 11/28/2023 Patient is within the usual baseline. No interventions are warranted at this time. Immunosuppression Management: Current Immunosuppressive Medication(s) Immunosuppressive Agents Mycophenolate sodium (MYFORTIC) [address] tablet DR TAKE 1 TABLET BY MOUTH EVERY 12 HOURS Tacrolimus (PROGRAF) 1 MG capsule TAKE 2 CAPSULES BY MOUTH DAILY EVERY MORNING AND 1 CAPSULE BY MOUTH EVERY EVENING 2. Immunosuppression Management: We will continue close monitoring for drug levels and toxicity via regularly scheduled laboratory assays High Risk Medical Decision Making For Drug Therapy Requiring Intensive Monitoring For Toxicity given the narrow therapeutic index of the immunosuppressive drug therapy listed below. Current Immunosuppressive Medication(s) Immunosuppressive Agents Mycophenolate sodium (MYFORTIC) [address] tablet DR TAKE 1 TABLET BY MOUTH EVERY 12 HOURS Tacrolimus (PROGRAF) 1 MG capsule TAKE 2 CAPSULES BY MOUTH DAILY EVERY MORNING AND 1 CAPSULE BY MOUTH EVERY EVENING Current Immunosuppressive medication(s) include: Current Immunosuppressive Medication(s) Immunosuppressive Agents Mycophenolate sodium (MYFORTIC) [address] tablet DR TAKE 1 TABLET BY MOUTH EVERY 12 HOURS Tacrolimus (PROGRAF) 1 MG capsule TAKE 2 CAPSULES BY MOUTH DAILY EVERY MORNING AND 1 CAPSULE BY MOUTH EVERY EVENING I/S levels: Lab Results Component Value Date [...] was BP Readings from Last 1 Encounters: 09/12/24 142/67 Per the patient home systolic blood pressures have been averaging in the 120 mmHg These values are acceptable. An intervention is not indicated at this time. Anemia: Stable Latest hemoglobin Hemoglobin (HGB), MANUAL ENTER Date Value Ref Range Status 06/04/2024 13.0 Final Acceptable per current post-transplant protocols. An intervention is not indicated at this time. Proteinuria: Stable Last Urine Protein/Creatinine Ratio: PROTEIN/CREATININE RATIO, MANUAL ENTER Date Value Ref Range Status 11/28/2023 0.109 Final Prot/Creat Ratio Date Value Ref Range Status 09/14/2023 0.098 mg/mg Final At Goal. An intervention is not indicated at this time. Hyperphosphatemia: Stable Last Phosphorous Level: Phosphate (PO4), Manual Enter Date Value Ref Range Status 06/04/2024 1.6 Final A phosphorus binder is not indicated at this time. Hypercalcemia: Stable Last Calcium Level: CALCIUM (CA), MANUAL ENTER Date Value Ref Range Status 06/04/2024 10.0 Final No interventions are warranted at this time. Secondary Hyperparathyroidism: Stable Last PTH PTH INTACT, MANUAL ENTER Date Value Ref Range Status 11/28/2023 147.1 Final No interventions are warranted at this time. Hyperlipidemia: Stable Current lipid therapy includes: as noted above TOTAL CHOLESTERL, MANUAL ENTER Date Value Ref Range Status 11/28/2023 145 Final HDL, MANUAL ENTER Date Value Ref Range Status 11/28/2023 69 Final LDL, MANUAL ENTER Date Value Ref Range Status 11/28/2023 52 Final TRIGLYCERIDES, MANUAL ENTER Date Value Ref Range Status 11/28/2023 119 Final No results found for: TCHHDLMANENT An [...] will follow-up with us in clinic in 12 months however we will see patient earlier should the need arise. We have ordered transplant specific labs per the center s guidelines to monitor and assess for toxicities from immunosuppressant drug therapy. Thank you for allowing us to partake in the care of your patient. Should you have any questions please do not hesitate to contact me. documented in this encounter [facility] 09-12-2024 History of Present illness Narrative Images from the original note were not included. PREP SHEET FOR NEPHROLOGY CLINIC Patient Name: Cate Fox Manager Of Allied Health Services: Wolf Ortega Date of Kidney Transplant: 09/11/2020 (4 Years) Primary Disease: Polycystic Kidneys Transplant Fingerprint Clerk: Tara Marcial Primary Care physician: Carson Russell Last Transplant Appointment: 09/14/23 COORDINATOR NOTES: Patient with increasing Cr above baseline--> additional labs needed other than allo, BK, UPC? Patient is due for a full set of transplant labs, please add if accurate tacrolimus level MONITORING: DGF Elevated cr, but not on HD HLA Match: A1 B2 DR1 Living Donor? No Campath Recipient? No ATG/ Steroid EBV IgG R+ CMV IgG D- / R- Ureteral Stent Yes Removed 10/06/2020 Hepatitis C+/GOPAL- donor? No Hepatitis C+/GOPAL+ donor? No IMMUNOSUPPRESSION AND LABS: Current Immunosuppressive Medication(s) Immunosuppressive Agents Mycophenolate sodium (MYFORTIC) [address] tablet DR TAKE 1 TABLET BY MOUTH EVERY 12 HOURS Tacrolimus (PROGRAF) 1 MG capsule TAKE 2 CAPSULES BY MOUTH DAILY EVERY MORNING AND 1 CAPSULE BY MOUTH EVERY EVENING I/S levels: Lab Results Component Value Date TACROLIMUS 6.9 12/11/2020 TACROLIMUS 6.6 10/16/2020 TACROLIMUS 8.1 10/02/2020 TACROTRGHMAN 7.4 06/04/2024 TACROTRGHMAN 6.3 03/14/2024 TACROTRGHMAN 6.7 11/28/2023 CHEMISTRY: Lab Results Component Value Date CREATSERUM 1.32 06/04/2024 CREATSERUM 1.31 03/14/2024 CREATSERUM 1.25 11/28/2023 HEMATOLOGY: Lab Results Component Value Date WBC 8.1 06/04/2024 WBC 7.5 03/14/2024 WBC 8.2 11/28/2023 Lab Results Component Value Date HGB 13.0 06/04/2024 HGB 12.9 03/14/2024 HGB 13.3 11/28/2023 IMMUNOLOGY: Lab Results Component Value Date CMVPCR negative 08/24/2021 CMVPCR negative 07/27/2021 CMVPCR negative 06/29/2021 BKVIRALP <500 09/14/2023 BKVIRALP <500 09/28/2022 BKVIRALP <500 09/11/2021 CURRENT MEDICATIONS: Acetaminophen, Albuterol, Allopurinol, Atorvastatin, Gabapentin, Mycophenolate sodium, Ondansetron, Sulfamethoxazole-trimethoprim, Tacrolimus, aspirin, magnesium oxide, and oxyCODONE ==== [facility] [address] [facility] [id number] Change in lab frequency / new order today: Labs every 3 months, give lab order to patient Labs needed in clinic today? Images from the original note were not included. Nursing Assessment In Clinic Patient is accompanied to clinic today by: Did patient require a wheelchair or medical transport for appointment: no Is patient employed: yes (Needed for [employer] forms) VITALS BP Readings from Last 3 Encounters: 09/12/24 142/67 09/14/23 159/74 03/28/23 137/78 Pulse Readings from Last 3 Encounters: 09/12/24 81 09/14/23 77 03/28/23 88 Wt Readings from Last 6 Encounters: 09/12/24 95.3 kg (210 lb) 09/14/23 90.9 kg (200 lb 6.4 oz) 10/23/23 84.7 kg (186 lb 11 oz) 09/28/22 84.4 kg (186 lb) 03/17/22 77.6 kg (171 lb) 09/11/21 74.8 kg (164 lb 12.8 oz) Body mass index is 41.01 kg/m . Lab Results Component Value Date GLUCOSE 115 06/04/2024 Lab Results Component Value Date HGBA1C 5.5 10/12/2021 IMMUNOSUPPRESSION Current Immunosuppressive Medication(s) Immunosuppressive Agents Mycophenolate sodium (MYFORTIC) [address] DR TAKE 1 TABLET BY MOUTH EVERY 12 HOURS Tacrolimus (PROGRAF) 1 MG capsule TAKE 2 CAPSULES BY MOUTH DAILY EVERY MORNING AND 1 CAPSULE BY MOUTH EVERY EVENING PREFERRED LAB AND PHARMACY: [facility] [address] [facility] [address] [id number] [place] [address] [phone] [facility]. [facility] [address] [facility] [place] [address] [place] [address] [place] [address] ROS and SCREEN: Chest Pain: negative Cough: negative SOB: negative Abd Pain: negative Nausea: negative Vomiting: negative Diarrhea: positive, consistent for 2-3 months Constipation: negative Dysuria: negative Edema: negative Tremors: negative Headaches: negative Wound issues: negative Any diagnosis of cancer/malignancy (any type) in the last year: no Follow with a Dynamic Etching Processor? no Have a Primary Care provider? yes Been seen in the last 12 months? yes Alcohol consumption?: no Cigarette smoking, smokeless tobacco or vaping/e-cigarette use?: no Marijuana (any form), CBD oil or street drug use?: no QUESTIONS OR CONCERNS TO ADDRESS WITH PHYSICIAN: Recent diarrhea Best way to lose weight, nutrition consult? Intermittent fasting? documented in this encounter [facility] 09-12-2024 Instructions Kristina Blanc RN - 09/12/2024 10:00 AM EDT Medication changes: Labs today, continue every 3 months. Please obtain a Tacrolimus level soon. Please make appointment with Dr Marcial in 1 year. Weight loss ideas: Nutrition consult locally Ok for Intermittent fasting. documented in this encounter [facility] 09-14-2023 History of Present illness Narrative Images from the original note were not included. PREP SHEET FOR NEPHROLOGY CLINIC Patient Name: Cate Fox Manager Of Allied Health Services: Wolf Ortega Date of Kidney Transplant: 09/11/2020 (3 Years) Primary Disease: Polycystic Kidneys Transplant Fingerprint Clerk: Tara Marcial Primary Care physician: Carson Russell Last Transplant Appointment: 03/28/23 MONITORING: DGF Elevated cr, but not on HD HLA Match: A1 B2 DR1 Living Donor? No Campath Recipient? No ATG/ Steroid EBV IgG R+ CMV IgG D- / R- Ureteral Stent Yes Removed 10/06/2020 Hepatitis C+/GOPAL- donor? No Hepatitis C+/GOPAL+ donor? No IMMUNOSUPPRESSION AND LABS: Current Immunosuppressive Medication(s) Immunosuppressive Agents Mycophenolate sodium (MYFORTIC) [address] tablet DR TAKE 1 TABLET BY MOUTH EVERY 12 HOURS Tacrolimus (PROGRAF) 1 MG capsule TAKE 2 CAPSULES BY MOUTH DAILY IN THE MORNING AND 1 CAPSULE BY MOUTH IN THE EVENING I/S levels: Lab Results Component Value Date TACROLIMUS 6.9 12/11/2020 TACROLIMUS 6.6 10/16/2020 TACROLIMUS 8.1 10/02/2020 TACROTRGHMAN 5.7 07/12/2023 TACROTRGHMAN 5.9 05/16/2023 TACROTRGHMAN 4.5 03/14/2023 CHEMISTRY: Lab Results Component Value Date CREATSERUM 1.39 07/28/2023 CREATSERUM 1.33 07/12/2023 CREATSERUM 1.14 05/16/2023 HEMATOLOGY: Lab Results Component Value Date WBC 7.3 07/12/2023 WBC 6.8 05/16/2023 WBC 13.2 03/14/2023 Lab Results Component Value Date HGB 13.2 07/12/2023 HGB 13.1 05/16/2023 HGB 12.7 03/14/2023 IMMUNOLOGY: Lab Results Component Value Date CMVPCR negative 08/24/2021 CMVPCR negative 07/27/2021 CMVPCR negative 06/29/2021 BKVIRALP <500 09/28/2022 BKVIRALP <500 09/11/2021 BKVIRALP <500 06/15/2021 CURRENT MEDICATIONS: Acetaminophen, Albuterol, Allopurinol, Atorvastatin, Gabapentin, Mycophenolate sodium, Ondansetron, Sulfamethoxazole-trimethoprim, Tacrolimus, aspirin, magnesium oxide, and oxyCODONE ======= [facility] [address] [facility] [address] Change in lab frequency / new order today: Labs every 3 months, give lab order to patient Labs needed in clinic today? Yes--Please ask provider if anything else should be drawn other than listed COORDINATOR NOTES: Patient with increasing Cr above baseline. 07/28/23 workup: Cr; 1.39, UPC 0.119, Alloscreen no DSA Images from the original note were not included. Nursing Assessment In Clinic Patient is accompanied to clinic today by: family Did patient require a wheelchair or medical transport for appointment: no Is patient employed: no (Needed for [employer] forms) VITALS BP Readings from Last 3 Encounters: 09/14/23 159/74 03/28/23 137/78 09/28/22 129/85 Pulse Readings from Last 3 Encounters: 09/14/23 77 03/28/23 88 09/28/22 85 Wt Readings from Last 6 Encounters: 09/14/23 90.9 kg (200 lb 6.4 oz) 03/28/23 84.7 kg (186 lb 11 oz) 09/28/22 84.4 kg (186 lb) 03/17/22 77.6 kg (171 lb) 09/11/21 74.8 kg (164 lb 12.8 oz) 06/15/21 81.4 kg (179 lb 6.4 oz) Body mass index is 39.14 kg/m . Lab Results Component Value Date GLUCOSE 111 07/28/2023 Lab Results Component Value Date HGBA1C 5.5 10/12/2021 IMMUNOSUPPRESSION Current Immunosuppressive Medication(s) Immunosuppressive Agents Mycophenolate sodium (MYFORTIC) [address] tablet DR TAKE 1 TABLET BY MOUTH EVERY 12 HOURS Tacrolimus (PROGRAF) 1 MG capsule TAKE 2 CAPSULES BY MOUTH DAILY IN THE MORNING AND 1 CAPSULE BY MOUTH IN THE EVENING PREFERRED LAB AND PHARMACY: [facility] [address] [facility] [address] [id number] [place] [address] [address] [facility] [phone] [facility] [address] [facility] [place] [address] - [address] [facility] [address] [place] [address] [place] [address] ROS and SCREEN: Chest Pain: negative Cough: positive - sinuses turned into cold SOB: negative Abd Pain: negative Nausea: negative Vomiting: negative Diarrhea: negative Constipation: negative Dysuria: negative Edema: negative Tremors: negative Headaches: negative Wound issues: negative Any diagnosis of cancer/malignancy (any type) in the last year: no Do you follow with a Dynamic Etching Processor? no Do you have a Primary Care provider? yes Have you been seen in the last 12 months? yes (If not seen within the last year please advise patient to schedule a follow up appointment to remain current) Alcohol consumption: no Cigarette smoking, smokeless tobacco or vaping/e-cigarette use: no Marijuana (any form), CBD oil or street drug use: no QUESTIONS OR CONCERNS TO ADDRESS WITH PHYSICIAN: Images from the original note were not included. Today we were happy to see Cate Fox at [facility] Post Transplant Office for evaluation and management of immunosuppression and associated conditions in the setting of solid organ transplantation. As you may be aware Ms. Fox is a 62 y.o. year-old female. She received an organ transplant from a Donation after Circulatory Kidney Donor on 09/11/2020 (Kidney). The patient is currently 1112 days out from transplantation. 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 CMV D-/R-, EBV R+, KDPI 31%. Pre-transplant cPRA 58% (highest 81%). Thymoglobulin (ATG) (3.04 mg/kg total) and a rapid prednisone taper. CB DGF req I HD X 1. There has been a review of the patient s post-transplant course. Plan for today - feeling well. Renal function stable, no change in IS. Viral PCR, DSA neg, update UPC and above per transplant center protocol. Will follow with general nephrology and dermatology. Mechanical Technologist for low K diet The patient was last seen for follow-up at the [facility] on 09/28/23. We did review if the patient has had any changes in the past medical history, general state of health, hospitalizations, or visited the Emergency Room for any reason. The patient s problem, allergy and medication lists have been reviewed and updated today. REVIEW OF SYSTEMS: The patient currently endorses [...] as needed. allopurinol 100 MG tablet Take 1 tablet by mouth every Tuesday, Tuesday, Tuesday dinner. aspirin 81 MG Chew Tab chewable tablet Chew 1 tablet daily. atorvastatin 20 MG tablet Take 1 tablet by mouth at bedtime. Gabapentin 100 MG capsule Take 1 capsule by mouth daily. magnesium oxide 400 (241.3 Mg) MG tablet Take 1 tablet by mouth 2 times daily. Mycophenolate sodium (MYFORTIC) [address] DR TAKE 1 TABLET BY MOUTH EVERY 12 HOURS ondansetron 4 MG tablet Take 1 tablet by mouth every 8 hours as needed for Nausea. oxyCODONE 5 MG tablet Take 1 tablet by mouth as needed for Pain. Sulfamethoxazole-trimethoprim 800-160 MG per tablet Take 1 tablet by mouth three times a week. Tacrolimus (PROGRAF) 1 MG capsule TAKE 2 CAPSULES BY MOUTH DAILY IN THE MORNING AND 1 CAPSULE BY MOUTH IN THE EVENING PHYSICAL EXAM: VITALS: Blood pressure 159/74, pulse 77, temperature 97.2 F (36.2 C), temperature source Temporal, weight 90.9 kg (200 lb 6.4 oz). GENERAL: Alert and oriented x 3 in no apparent Distress HEENT: Normocephalic, EOMI, Moist Oral Membranes, Neck Soft/Supple, No JVD or LAD CV: Regular Rhythm, Positive S1 / S2, Negative for Rubs PULM: Bilateral Breath Sounds. No Wheezes, Crackles, Rubs, Ronchi ABD: Soft, Non-Tender, Positive Bowel Sounds : Transplanted Graft Palpable. Non-Tender, Erythematous, or Warm EXT: Symmetric, Mobile, No Edema, No Cyanosis or Clubbing LABORATORY VALUES: WBC, MANUAL ENTER Date Value Ref Range Status 07/12/2023 7.3 Final Hemoglobin (HGB), MANUAL ENTER Date Value Ref Range Status 07/12/2023 13.2 Final HEMATOCRIT (HCT), MANUAL ENTER Date Value Ref Range Status 07/12/2023 41.8 Final PLATELETS, MANUAL ENTER Date Value Ref Range Status 07/12/2023 299 Final Sodium Date Value Ref Range Status 09/14/2023 142 135 - 145 mmol/L Final Chloride Date Value Ref Range Status 09/14/2023 110 (H) 98 - 108 mmol/L Final BUN Date Value Ref Range Status 09/14/2023 21 7 - 25 mg/dL Final Potassium Date Value Ref Range Status 09/14/2023 5.2 (H) 3.5 - 5.0 mmol/L Final Creatinine Date Value Ref Range Status 09/14/2023 1.09 0.50 - 1.20 mg/dL Final Glucose Date Value Ref Range Status 09/14/2023 111 (H) 70 - 99 mg/dL Final PT Date Value Ref Range Status 09/15/2020 13.5 11.9 - 14.2 sec Final PTT Date Value Ref Range Status 09/15/2020 29.9 24.0 - 34.3 sec Final Total Protein Date Value Ref Range Status 09/11/2021 6.3 (L) 6.4 - 8.3 g/dL Final ALBUMIN, MANUAL ENTER Date Value Ref Range Status 07/12/2023 3.6 Final AST, MANUAL ENTER Date Value Ref Range Status 07/12/2023 16 Final ALT, MANUAL ENTER Date Value Ref Range Status 07/12/2023 26 Final GGT, MANUAL ENTER Date Value Ref Range Status 05/16/2023 31 Final Bilirubin, Total, MANUAL ENTER Date Value Ref Range Status 07/12/2023 0.4 Final CALCIUM (CA), MANUAL ENTER Date Value Ref Range Status 07/28/2023 9.8 Final Phosphate (PO4), Manual Enter Date Value Ref Range Status 05/16/2023 1.9 Final MAGNESIUM (MG), MANUAL ENTER Date Value Ref Range Status 09/13/2022 2.2 Final ASSESSMENT AND PLAN: Encounter for aftercare post-transplant: Latest Creatinine Lab Results Component Value Date CREATSERUM 1.09 09/14/2023 CREATURINE 71.79 09/14/2023 Patient is within the usual baseline. No interventions are warranted at this time. Proteinuria: Last Urine Protein/Creatinine Ratio: PROTEIN/CREATININE RATIO, MANUAL ENTER Date Value Ref Range Status 07/28/2023 0.119 Final Prot/Creat Ratio Date Value Ref Range Status 09/14/2023 0.098 mg/mg Final At Goal. An intervention is not indicated at this time. High Risk Medical Decision Making For Drug Therapy Requiring Intensive Monitoring For Toxicity Current Immunosuppressive medication(s) include: Current Immunosuppressive Medication(s) Immunosuppressive Agents Mycophenolate sodium (MYFORTIC) [address] tablet DR TAKE 1 TABLET BY MOUTH EVERY 12 HOURS Tacrolimus (PROGRAF) 1 MG capsule TAKE 2 CAPSULES BY MOUTH DAILY IN THE MORNING AND 1 CAPSULE BY MOUTH IN THE EVENING I/S levels: Lab Results Component Value Date TACROLIMUS 6.9 12/11/2020 No Changes are warranted at this time. Will continue intensive monitoring for drug levels and toxicity via regularly scheduled laboratory assays given the narrow therapeutic index of the immunosuppressive drug therapy listed above. High risk for infection in setting of immunosuppression 1) BK, CMV PCR negative. 2) On bactrim 3) No DSAs Hypertension: Stable Today in the clinic the blood pressure was BP Readings from Last 1 Encounters: 09/14/23 159/74 Home SBP , 130s These values are acceptable. An intervention is not indicated at this time. Anemia of chronic kidney disease: Latest hemoglobin Hemoglobin (HGB), MANUAL ENTER Date Value Ref Range Status 07/12/2023 13.2 Final Acceptable per current post-transplant protocols. An intervention is not indicated at this time. Bone mineral disease Last Phosphorous Level: Phosphate (PO4), Manual Enter Date Value Ref Range Status 05/16/2023 1.9 Final Last Calcium Level: CALCIUM (CA), MANUAL ENTER Date Value Ref Range Status 07/28/2023 9.8 Final Last PTH Intact PTH Date Value Ref Range Status 09/28/2022 381.0 (H) 14.0 - 72.0 pg/mL Final No interventions are warranted at this time. Hyperlipidemia: Stable TOTAL CHOLESTERL, MANUAL ENTER Date Value Ref Range Status 05/16/2023 158 Final HDL, MANUAL ENTER Date Value Ref Range Status 05/16/2023 74 Final LDL, MANUAL ENTER Date Value Ref Range Status 05/16/2023 68 Final TRIGLYCERIDES, MANUAL ENTER Date Value Ref Range Status 05/16/2023 80 Final No results found for: TCHHDLMANENT An [...] patient will follow-up with us in clinic per transplant center follow-up protocol however we will see patient earlier should the need arise. We have ordered transplant specific labs per the center s guidelines to monitor and assess for toxicities from immunosuppressant drug therapy. - Yearly dermatology follow-up - Establish contact with general nephrology per Transplant center protocol - Age appropriate health screening per PCP I confirm that I have addressed the multifaceted nature of patients health needs by furnishing care for the patients complex, chronic condition that will require ongoing care with myself or someone from the transplant team. Thank you for allowing us to partake in the care of your patient. Should you have any questions please do not hesitate to contact me. documented in this encounter [facility] 09-14-2023 Instructions Yeny Mckinnon RN - 09/14/2023 10:30 AM EDT - No medication changes - Routine labs every 3 months- additional labs in clinic today. - Return to clinic in [address] Marcial documented in this encounter [facility] 05-03-2023 Note [facility] Pap Smear Specimen Adequacy May 03, 2023 11:59pm Comment . Satisfactory for evaluation. Endocervical and/or squamous metaplasticcells (endocervical component) are present. Comment on above: Satisfactory for beba luation. Endocervical and/or squamous metaplasticcells (endocervical component) are present. 05-03-2023 Note [facility] Pap Smear Specimen Adequacy May 03, 2023 11:59pm Comment . Satisfactory for evaluation. Endocervical and/or squamous metaplasticcells (endocervical component) are present. Comment on above: Satisfactory for beba luation. Endocervical and/or squamous metaplasticcells (endocervical component) are present. 05-03-2023 Note [facility] Pap Smear Specimen Adequacy May 03, 2023 11:59pm Comment . Satisfactory for evaluation. Endocervical and/or squamous metaplasticcells (endocervical component) are present. Comment on above: Satisfactory for beba luation. Endocervical and/or squamous metaplasticcells (endocervical component) are present. 05-03-2023 Note [facility] Pap Smear Specimen Adequacy May 03, 2023 11:59pm Comment . Satisfactory for evaluation. Endocervical and/or squamous metaplasticcells (endocervical component) are present. Comment on above: Satisfactory for beba luation. Endocervical and/or squamous metaplasticcells (endocervical component) are present. 05-03-2023 Note [facility] Pap Smear Specimen Adequacy May 04, 2023 12:59am Comment . Satisfactory for evaluation. Endocervical and/or squamous metaplasticcells (endocervical component) are present. Comment on above: Satisfactory for beba luation. Endocervical and/or squamous metaplasticcells (endocervical component) are present. 05-03-2023 Note [facility] Pap Smear Specimen Adequacy May 03, 2023 11:59pm Comment . Satisfactory for evaluation. Endocervical and/or squamous metaplasticcells (endocervical component) are present. Comment on above: Satisfactory for beba luation. Endocervical and/or squamous metaplasticcells (endocervical component) are present. 05-03-2023 Note [facility] Pap Smear Specimen Adequacy May 03, 2023 11:59pm Comment . Satisfactory for evaluation. Endocervical and/or squamous metaplasticcells (endocervical component) are present. Comment on above: Satisfactory for beba luation. Endocervical and/or squamous metaplasticcells (endocervical component) are present. 05-04-2022 Evaluation + Plan note Future Scheduled TestsCT Knee w/o Contrast Left 05/04/22 [facility] 03-17-2022 History of Present illness Narrative Images from the original note were not included. PREP SHEET FOR NEPHROLOGY CLINIC Patient Name: Cate Fox Manager Of Allied Health Services: Wolf Ortega Date of Kidney Transplant: 09/11/2020 Primary Disease: Polycystic Kidneys Transplant Fingerprint Clerk: Tara Marcial Primary Care physician: Carson Russell Last Transplant Appointment: 09/11/2021 MONITORING: DGF Elevated cr, but not on HD HLA Match: A1 B2 DR1 Living Donor? No [place] Recipient? No ATG/ Steroid [place] ID Follow-up Testing Not < 28 days [...] No Gil Status In Protocol Box Yes IMMUNOSUPPRESSION AND LABS: Current Immunosuppressive Medication(s) Immunosuppressive [...] sodium, ondansetron, sodium bicarbonate, sulfamethoxazole-trimethoprim, and tacrolimus [facility] [address] [facility] [id number] Change in lab frequency / new order [...] positive January Learning Barriers: Barriers Noted: None Cultural/Religion Beliefs: None Emotional Barriers: None Desire/motivation to [...] kg (171 lb). Update Pharmacy: Pharmacy : [facility]/pharmacy #[id number] [place] [address] [phone] [facility] [address] [facility] [place] [address] [place] [address] Prescriptions are 90 days LAB: [facility] [address] [facility] [address] Images from the original note were not included. Today we were happy to see Cate Fox at [facility] Post Transplant Office for evaluation [...] to contact me. documented in this encounter [facility] 03-17-2022 Instructions Anand Katz RN - 03/17/2022 11:00 AM EDT Stop Bicarb Labs in clinic Return in 6 months OK for ortho referral documented in this encounter [facility] 09-11-2021 Instructions Edward Machado RN - 09/11/2021 3:15 PM EDT - labs letter given for once a month labs, additional labs in clinic - No medication changes - Return to clinic 03/17/2022 with Tara Marcial MD as scheduled documented in this encounter [facility] 09-11-2021 History of Present illness Narrative Images from the original note were not included. PREP SHEET FOR NEPHROLOGY CLINIC Patient Name: Cate Fox Manager Of Allied Health Services: Wolf Ortega Date of Kidney Transplant: 09/11/2020 365d Cr trending up Primary Disease: Polycystic Kidneys Transplant Fingerprint Clerk: Tara Marcial Primary Care physician: Carson Russell Last Transplant Appointment: 03/09/2021 MONITORING: DGF Elevated cr, but not on HD HLA Match: A1 B2 DR1 Living Donor? No [place] Recipient? No ATG/ Steroid [place] ID Follow-up Testing Not < 28 days [...] No Gil Status In Protocol Box Yes IMMUNOSUPPRESSION AND LABS: Current Immunosuppressive Medication(s) Immunosuppressive [...] sodium, ondansetron, sodium bicarbonate, sulfamethoxazole-trimethoprim, and tacrolimus [facility] [address] [facility] [id number] Change in lab frequency / new order [...] by mouth 2 times daily. ADDITIONAL INFORMATION: [facility] [address] [facility] [address] [id number] [place] [address] [address] [place] [address]. [facility] [address] [facility] [place] [address] - [address] [facility] [address] [place] [address] [place] [address] ROS and SCREEN: Chest Pain: negative Cough: [...] PHYSICIAN: I saw Cate Fox at the [facility] on 09/11/2021. Patient is a 60 y.o. female s/p donor kidney transplant on 09/11/20. Her [place] kidney disease was noted to be ADPKD. [...] History: Procedure Laterality Date KIDNEY TRANSPLANT W/O CURYUNG NEPHRECTOMY N/A 09/11/2020 Laterality: N/A; Surgeon: Ninfa Brown MD; Location: [facility] MAIN OR NEPHRECTOMY Bilateral 2015 OTHER SURGICAL [...] you have any questions. Bunny Richards MD extractor filler Division of Nephrology [facility] documented in this encounter [facility] 09-11-2020 Evaluation note Diagnosis Onset Date Abdominal wall bulge acute Non-ischemic cardiomyopathy acute Essential (primary) hypertension chronic Renal transplant recipient September 11, 2020 resolved [facility] Work Phone: evaluation noteNo assessment information available [facility] Work Phone: Evaluation note* Diagnosis Immunosuppressed status- Primary Unspecified disorder of immune mechanism Kidney replaced by transplant Long-term use of immunosuppressant medication Encounter for long-term (current) use of other medications Abnormal blood chemistry Other abnormal blood chemistry Aftercare following organ transplant High risk medication use Encounter for long-term (current) use of other medications Other general symptoms and signs Hypertension secondary to other renal disorders [facility] Diagnosis Onset Date Resolution Status Essential (primary) hypertension chronic Non-ischemic cardiomyopathy resolved [facility] Work Phone: Evaluation note* Diagnosis Kidney replaced by transplant- Primary Long-term use of immunosuppressant medication Encounter for long-term (current) use of other medications Abnormal blood chemistry Other abnormal blood chemistry High risk medication use Encounter for long-term (current) use of other medications Immunosuppressed status Unspecified disorder of immune mechanism Aftercare following organ transplant Other general symptoms and signs Other complication of kidney transplant HTN (hypertension), benign Essential hypertension, benign Hyperlipidemia, unspecified hyperlipidemia type [facility] Diagnosis Onset Date Resolution Status Contact with and (suspected) exposure to other viral communicable diseases acute [facility] Work Phone: Evaluation note* Diagnosis Onset Date Resolution Status Encounter for routine gynecological examination noneactive [facility] Work Phone: Evaluation note* Diagnosis Kidney replaced by transplant- Primary Aftercare following organ transplant Immunosuppressed status Unspecified disorder of immune mechanism High risk medication use Encounter for long-term (current) use of other medications Other general symptoms and signs Abnormal blood chemistry Other abnormal blood chemistry At risk for infection transmitted from donor [facility] Kidney replaced by transplant- Primary Aftercare following organ transplant Immunosuppressed status Unspecified disorder of immune mechanism Long-term use of immunosuppressant medication Encounter for long-term (current) use of other medications High risk medication use Encounter for long-term (current) use of other medications Other general symptoms and signs Abnormal blood chemistry Other abnormal blood chemistry Screening for viral disease Special screening examination for unspecified viral disease At risk for infection transmitted from donor Other complication of liver transplant HTN (hypertension), benign Essential hypertension, benign Hyperlipidemia, unspecified hyperlipidemia type [facility] No data available for this section [facility] Hospital Discharge instructions No data available for this section [facility] Progress note No data available for this section [facility] Reason for referral (narrative)No reason for referral information availableWPremier [facility] Work Phone: Summary Purpose Family History No Family History [...] history of Polycystic kidney disease(753.12, Q61.3) Status:Active Relationship Condition Age at Onset Recorded Date/T jame father Aneurysm Unknown Kidney disorder Unknown Advance Directives No Advanced Directives Records FoundDocuments on File Type Date Recorded 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 Expl anation Advance Directives and Livin g Will 04/22/2020 12:00 AM Advance Directive Response Recorded Date/ Time Name of Medical Power of Diabetes Nurse August 01, 2021 11:27am Advance Directives No June 30, 2020 8:10am Living Will No September 09, 2021 10:57am Power of Diabetes Nurse No September 09 10:57am Latest Code Status on File Code Status Date Activated Date Inactivated Comments Full Code 09/11/2020 12:18 AM Advance Directive Response Recorded Date/ Time Advance Directives No June 30, 2020 8:10am Living Will No September 09, 2021 10:57am Power of Diabetes Nurse No September 09 10:57am Advance Directive Response Recorded Date/ Time Advance Directives No January 18, 2022 1:02pm Living Will No January 18 1:02pm Power of Diabetes Nurse No January 18 022 1:02pm Latest Code Status on File Code Status Date Activated Date Inactivated Comments Full Code 09/11/2020 12:18 AM Advance Directive Response Recorded Date/ Time Advance Directives No January 18, 2022 12:02pm Living Will No January 18 12:02pm Power of Diabetes Nurse No January 18, 12:02pm Advance Directive Response Recorded Date/ Time Name of Medical Power of Diabetes Nurse emerymitesh blackman tt August 16, 2022 7:29pm Advance Directives No January 18, 2022 1:02pm Living Will No August 16, 2022 7:29pm Power of Diabetes Nurse Yes August 16 7:29pm Advance Directive Response Recorded Date/ Time Advance Directives No January 18, 2022 1:02pm Living Will No August 16, 2022 7:29pm Power of Diabetes Nurse Yes August 16 7:29pm Advance Directive Response Recorded Date/ Time Advance Directives No January 18, 2022 12:02pm Living Will No August 16, 2022 6:29pm Power of Diabetes Nurse Yes August 16 6:29pm Advance Directive Response Recorded Date/ Time Name of Medical Power of Diabetes Nurse SPOUSE May 09, 2023 1:02pm Advance Directives No January 18, 2022 12:02pm Living Will No May 09 1:02pm Power of Diabetes Nurse Yes May 09, 2023 1:02pm Advance Directive Response Recorded Date/ Time Name of Medical Power of Diabetes Nurse SPOUSE May 09, 2023 2:02pm Advance Directives No January 18, 2022 1:02pm Living Will No May 09 2:02pm Power of Diabetes Nurse Yes May 09, 2023 2:02pm Advance Directive Response Recorded Date/ Time Advance Directives No January 18, 2022 12:02pm Living Will No May 09 1:02pm Power of Diabetes Nurse Yes May 09, 2023 1:02pm Date Activated Date Inactivated Comments 09/11/2020 12:18 AM Advance Directive Response Recorded Date/ Time Advance Directives No January 18, 2022 1:02pm Hospital Course Note HNO ID: [id number] Author: Gaurav Gautam MD Service: Hospital Medicine [...] Hospital Doctor: Rain Harris* Primary Care Provider: Rohit Horan DO My Medical Team Members: Treatment Team: Attending Provider: Rain Gautam MD Consulting: Zara Pavon Consulting (more content not included)... Note HNO ID: [id number] Author: Manju Cunha Service: ? Author Type: [...] technique, 19 cm cuff to tip, 14 Danish dual-lumen Primary Surgeon(s): Eber Cunha MD Recreation Program Specialist(s): None Anesthesia: Local Estimated Blood Loss: [...] L brachioaxillary AVG Surgeon: Dr. Foreman Resident/Fellow/Other Recreation Program Specialist: Beny Anesthesia: GETA I.V. Fluids: 250 albumin, 700 NS Estimated Blood Loss (mL): 25 Specimen: no Complications: None Findings: Audible bruit in graft, doppler radial and ulnar artery signals Patient Returned To/Condition: PACU, extubated, stable. 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 Thrill palpable over AVG. L radial pulse palpable. Operative Report Dictated: Dictation: yes Dictation job number: [id number] Signature/Cosignature/Attestation: Note Completion: Attending Marvin performed the procedure without a resident Electronic Signatures: Joselyn Foreman) (Signed 24-Jan-2020 15:43) Authored: Post Operative Note, Signature/Cosignature/Attestation Last Updated: 24-Jan-2020 15:43 by Joselyn Foreman) Procedure Findings Note Post Operative Note: PreOp D iagnosis: ESRD Post-Procedure Diagnosis: ESRD Procedure: L brachioaxillary AVG Surgeon: Dr. Foreman Resident/Fellow/Other Recreation Program Specialist: Beny Anesthesia: GETA I.V. Fluids: 250 albumin, 700 NS Estimated Blood Loss (mL): 25 Specimen: no Complications: None Findings: Audible bruit in graft, doppler radial and ulnar artery signals Patient Returned To/Condition: PACU, extubated, stable. 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 Thrill palpable over AVG. L radial pulse palpable. Operative Report Dictated: Dictation: yes Dictation job number: [id number] Signature/Cosignature/Attestation: Note Completion: Attending Marvin performed the procedure without a resident Electronic Signatures: Joselyn Foreman) (Signed 24-Jan-2020 15:43) Authored: Post Operative Note, Signature/Cosignature/Attestation Last Updated: 20-Aug-2020 15:43 by Joselyn Foreman) Note HNO ID: [id number] Author: Manju Cunha Service: ? Author Type: [...] technique, 19 cm cuff to tip, 14 Danish dual-lumen Primary Surgeon(s): Eber Cunha MD Recreation Program Specialist(s): None Anesthesia: Local Estimated Blood Loss: 20 cc Fluids: 30 cc crystalloid Urine Output: 0 cc Specimens Removed: Yes, old temporary catheter was discarded Drains: None Complications: None Findings: Longer catheter placed the tip in the catheter at the SVC/RA junctio (more content not included)... Chief Complaint and Reason for Visit Chief Complaint S/O- S/O- RIGHT FLANK PAIN S/O- S/O- fever ONE TIME TACROLIMUS LEVEL CHECK Chief Complaint S/O- RIGHT FLANK PAIN S/O- S/O- fever ONE TIME TACROLIMUS LEVEL CHECK S/O- Chief Complaint S/O- S/O- fever ONE TIME TACROLIMUS LEVEL CHECK S/O- S/O- 6 M FU Reason for Visit Essential (primary) hypertension Non-ischemic cardiomyopathy Chief Complaint ONE TIME TACROLIMUS LEVEL CHECK S/O- S/O- 6 M FU S/O- COVID POS Reason for Visit Essential (primary) hypertension Non-ischemic cardiomyopathy Chief Complaint S/O- S/O- 6 M FU S/O- COVID POS S/O- Reason for Visit Essential (primary) hypertension Non-ischemic cardiomyopathy Chief Complaint S/O- 6 M FU S/O- COVID POS S/O- S/O PRO OP Reason for Visit Essential (primary) hypertension Non-ischemic cardiomyopathy Chief Complaint S/O- COVID POS S/O- S/O PRO OP PRO OP S/O abn EKG Reason for Visit Essential (primary) hypertension Non-ischemic cardiomyopathy Chief Complaint COVID POS S/O- S/O PRO OP PRO OP S/O abn EKG S/O Reason for Visit Essential (primary) hypertension Non-ischemic cardiomyopathy Chief Complaint S/O- S/O PRO OP PRO OP S/O abn EKG S/O SCREENING/POST SAUNDRA S/O Reason for Visit Essential (primary) hypertension Non-ischemic cardiomyopathy Chief Complaint S/O PRO OP PRO OP S/O abn EKG S/O SCREENING/POST SAUNDRA S/O Reason for Visit Essential (primary) hypertension Non-ischemic cardiomyopathy Chief Complaint S/O abn EKG S/O SCREENING/POST SAUNDRA S/O S/O Reason for Visit Essential (primary) hypertension Non-ischemic cardiomyopathy Chief Complaint S/O SCREENING/POST SAUNDRA S/O S/O S/O PRE OP COVID TEST SEE ORDER Reason for Visit Contact with and (franklin spected) exposure to other viral communicable diseases Chief Complaint S/O SCREENING/POST SAUNDRA S/O S/O S/O PRE OP COVID TEST SEE ORDER S/O DVT RULE OUT Reason for Visit Contact with and (franklin spected) exposure to other viral communicable diseases Chief Complaint SCREENING/POST SAUNDRA S/O S/O S/O PRE OP COVID TEST SEE ORDER S/O DVT RULE OUT RIGHT SIDED FLANK PAIN Reason for Visit Contact with and (franklin spected) exposure to other viral communicable diseases Chief Complaint S/O S/O PRE OP COVID TEST SEE ORDER S/O DVT RULE OUT RIGHT SIDED FLANK PAIN S/O Reason for Visit Contact with and (franklin spected) exposure to other viral communicable diseases Chief Complaint S/O DVT RULE OUT RIGHT SIDED FLANK PAIN S/O S/O R SIDE PAIN POSSIBLE HERNIA 1 Y FU Reason for Visit Abdominal wall bulge Non-ischemic cardiomyopathy Essential (primary) hypertension Renal transplant recipient Chief Complaint S/O S/O R SIDE PAIN POSSIBLE HERNIA 1 Y FU LABWORK Reason for Visit Abdominal wall bulge Non-ischemic cardiomyopathy Essential (primary) hypertension Renal transplant recipient Chief Complaint S/O R SIDE PAIN POSSIBLE HERNIA 1 Y FU LABWORK HEADACHES EORDERS S/O- ADD LABSPEC,URINE 02-14-23 R10.9 Reason for Visit Abdominal wall bulge Non-ischemic cardiomyopathy Essential (primary) hypertension Renal transplant recipient Chief Complaint S/O R SIDE PAIN POSSIBLE HERNIA 1 Y FU LABWORK HEADACHES EORDERS S/O- ADD LABSPEC,URINE 02-14-23 R10.9 EORDER Reason for Visit Abdominal wall bulge Non-ischemic cardiomyopathy Essential (primary) hypertension Renal transplant recipient Chief Complaint LABWORK HEADACHES EORDERS S/O- ADD LABSPEC,URINE 02-14-23 R10.9 EORDER S/O- ADD LABSPEC,URINE 02-14-23 Chief Complaint EORDERS S/O- ADD LABSPEC,URINE 02-14-23 R10.9 EORDER S/O- ADD LABSPEC,URINE 02-14-23 Annual (ACCOUNT REVIEW SPECIALIST) PAP Reason for Visit Encounter for routin e gynecological examination Chief Complaint EORDERS S/O- ADD LABSPEC,URINE 02-14-23 R10.9 EORDER S/O- ADD LABSPEC,URINE 02-14-23 Annual (ACCOUNT REVIEW SPECIALIST) PAP S/O- SCREENING Cysto Litholapaxy with Laser Reason for Visit Encounter for routin e gynecological examination Chief Complaint Annual (ACCOUNT REVIEW SPECIALIST) PAP S/O- SCREENING Cysto Litholapaxy with Laser S/O- Reason for Visit Encounter for routin e gynecological examination Chief Complaint Annual (ACCOUNT REVIEW SPECIALIST) PAP S/O- SCREENING Cysto Litholapaxy with Laser S/O- OSTEO Reason for Visit Encounter for routin e gynecological examination Chief Complaint EORDER S/O- ADD LABSPEC,URINE 02-14-23 Annual (ACCOUNT REVIEW SPECIALIST) PAP S/O- SCREENING Cysto Litholapaxy with Laser Reason for Visit Encounter for routin e gynecological examination Chief Complaint EORDERS S/O- ADD LABSPEC,URINE 02-14-23 R10.9 EORDER S/O- ADD LABSPEC,URINE 02-14-23 Annual (ACCOUNT REVIEW SPECIALIST) PAP S/O- SCREENING Reason for Visit Encounter for routin e gynecological examination Chief Complaint Admit Date LABS October 25, 2024 7:06a m Additional Source Comments INFORMATION SOURCE (unrecogn ized section and content) DATE CREATED AUTHOR 08/22/2019 [facility] DATE CREATED AUTHOR AUTHOR'S ORGANIZ ATION 12/29/2019 [facility] DATE CREATED AUTHOR AUTHOR'S ORGANIZ ATION 04/09/2020 [facility] DATE CREATED AUTHOR AUTHOR'S ORGANIZ ATION 04/22/2020 [facility] DATE CREATED AUTHOR AUTHOR'S ORGANIZ ATION 04/23/2020 [facility] DATE CREATED AUTHOR AUTHOR'S ORGANIZ ATION 05/03/2020 [facility] DATE CREATED AUTHOR AUTHOR'S ORGANIZ ATION 06/15/2020 [facility] DATE CREATED AUTHOR AUTHOR'S ORGANIZ ATION 08/27/2021 [facility] DATE CREATED AUTHOR AUTHOR'S ORGANIZ ATION 05/06/2022 [facility] DATE CREATED AUTHOR AUTHOR'S ORGANIZ ATION 10/19/2024 [facility] DATE CREATED AUTHOR AUTHOR'S ORGANIZ ATION 10/31/2024 [facility] Goals (unrecognized section and content) Goals may be documented in a n alternate sectionGoals may be documented in an alternate sectionGoals may be documented in an alternate sectionGoals may be documented in an alternate sectionGoals may be documented in an alternate sectionGoals may be documented in an alternate sectionGoals may be documented in an alternate sectionGoals may be documented in an alternate sectionGoals may be documented in an alternate section No data available for this sectionGoals may be documented in an alternate sectionGoals may be documented in an alternate sectionGoals may be documented in an alternate sectionGoals may be documented in an alternate sectionGoals may be documented in an alternate sectionGoals may be documented in an alternate sectionGoals may be documented in an alternate sectionGoals may be documented in an alternate sectionGoals may be documented in an alternate sectionGoals may be documented in an alternate sectionGoals may be documented in an alternate sectionGoals may be documented in an alternate sectionGoals may be documented in an alternate sectionGoals may be documented in an alternate sectionGoals may be documented in an alternate sectionGoals may be documented in an alternate sectionGoals may be documented in an alternate sectionGoals may be documented in an alternate sectionGoals may be documented in an alternate sectionGoals may be documented in an alternate sectionGoals may be documented in an alternate sectionGoals may be documented in an alternate section Reason for Visit (unrecogniz ed section and content) Reason Comments Kidney Recipient Follow-up Care Teams (unrecognized sec tion and content) Rescue Worker Relationship Specialty Start Date End Date Carson Russell MD [address] [place] [address] PCP - General Family Medicine 09/12/20 Junaid Lau MD [address] [place] [address] Nephrology 10/10/20 Krzysztof Wu MD [address] [place] [address] Nephrology 03/09/21 Rescue Worker Relationship Specialty Start Date End Date Carson Russell MD [address] [place] [address] PCP - General Family Medicine 09/12/20 Junaid Lau MD [address] [place] [address] Nephrology 10/10/20 Krzysztof Wu MD [address] [place] [address] Nephrology 03/09/21 Team Status: Active Member Role Status Dates Dr. Rohit Horan MD Family Provider Active Dr. Carson Russell MD Primary Care Provider Active Team Status: Inactive Member Role Status Dates Dr. Carson Russell MD Primary Care Provider, Referring P rovider Active Cristine Camarena PA, PA Attending Provider Active Team Status: Inactive Member Role Status Dates Dr. Carson Russell MD Primary Care Provider Active VERITO PACHECO Attending Provider, Referring Provider Active Dr. Bunny Richards MD Other Provider Active Dr. Krzysztof Wu MD Other Provider Active Team Status: Inactive Member Role Status Dates Dr. Carson Russell MD Primary Care Provide r, Attending Provider, Referring Provider Active Team Status: Inactive Member Role Status Dates Dr. Carson Russell MD Primary Care Provider, Referring P rovider Active Jesus Borjas PA, PA Attending Provider Active Team Status: Active Member Role Status Dates Dr. Carson Russell MD Primary Care Provider Active TARA, PESAVENTO Attending Provider, Referring Provider Active Dr. Bnuny Richards MD Other Provider Active Dr. Krzysztof Wu MD Other Provider Active Team Status: Inactive Member Role Status Dates Dr. Carson Russell MD Primary Care Provider Active Dr. Diego Bowman MD Attending Provider, Referring P rovider Active Team Status: Inactive Member Role Status Dates Dr. Carson Russell MD Primary Care Provider Active Dr. Faustina Byrne MD Emergency Provider Active Team Status: Inactive Member Role Status Dates Dr. Carson Russell MD Primary Care Provider Active Dr. Faustina Byrne MD Attending Provider, Emergency Provider Active Team Status: Inactive Member Role Status Dates Dr. Carson Russell MD Primary Care Provider, Referring P rovider Active Dr. Chinedu Polo MD Attending Provider Active Team Status: Inactive Member Role Status Dates Dr. Carson Russell MD Primary Care Provider, Referring P rovider Active Dr. Zay Ortiz MD Attending Provider Active Team Status: Inactive Member Role Status Dates Dr. Carson Russell MD Primary Care Provider Active Dr. Krzysztof Wu MD Attending Provider, Re ferring Provider Active Team Status: Inactive Member Role Status Dates Dr. Carson Russell MD Primary Care Provider Active TARA, PESAVENTO Attending Provider Active Team Status: Active Member Role Status Dates Dr. Carson Russell MD Primary Care Provider, Attending P rovider Active Team Status: Active Member Role Status Dates Dr. Carson Russell MD Primary Care Provider, Other Provi antonio Active TARA, PESAVENTO Attending Provider, Referring Provider Active Dr. Bunny Richards MD Other Provider Active Dr. Krzysztof Wu MD Other Provider Active Team Status: Inactive Member Role Status Dates Dr. Carson Russell MD Primary Care Provider, Attending P rovider Active Team Status: Active Member Role Status Dates Dr. Carson Russell MD Primary Care Provider Active Sammi Banda DO Attending Provider, Referring Pr ovider Active Team Status: Inactive Member Role Status Dates Dr. Carson Russell MD Primary Care Provider, Other Provi antonio Active TARA, PESAVENTO Attending Provider, Referring Provider Active Dr. Bunny Richards MD Other Provider Active Dr. Krzysztof Wu MD Other Provider Active Team Status: Inactive Member Role Status Dates Dr. Carson Russell MD Primary Care Provider Active Sammi Banda DO Attending Provider, Referring Pr ovider Active Team Status: Active Member Role Status Dates Dr. Rohit Horan MD Family Provider Active Team Status: Inactive Member Role Status Dates Dr. Carson Russell MD Referring Provider Active Debra Astudillo BROADCAST SUPERVISOR, BROADCAST SUPERVISOR-C Attending Provider Active Team Status: Inactive Member Role Status Dates Debra Astudillo BROADCAST SUPERVISOR, BROADCAST SUPERVISOR-C Attending Provider Active Team Status: Inactive Member Role Status Dates Dr. Jamie Rhodes MD Attending Provider, Referr ing Provider Active Dr. Carson Russell MD Primary Care Provider Active Team Status: Inactive Member Role Status Dates Debra Astudillo BROADCAST SUPERVISOR, BROADCAST SUPERVISOR-C Attending Provider, Referring Provider Active Dr. Carson Russell MD Primary Care Provider Active Team Status: Active Member Role Status Dates Dr. Carson Russell MD Primary Care Provider Active Dr. Krzysztof Wu MD Attending Provider, Re ferring Provider Active Rescue Worker Relationship Specialty Start Date End Date Carson Russell MD [address] [place], [place] [id number] PCP - General Family Medicine 09/12/20 Junaid Lau MD [address] [place] [address] Nephrology 10/10/20 Krzysztof Wu MD [address] [place] [address] Nephrology 03/09/21 Rescue Worker Relationship Specialty Start Date End Date Carson Russell MD [address] [place], [place] [id number] PCP - General Family Medicine 09/12/20 Junaid Lau MD [address] [place] [address] Nephrology 10/10/20 Krzysztof Wu MD [address] [place] [address] Nephrology 03/09/21 Team Status: Active Member Role Status Dates Dr. Carson Russell MD Primary Care Provider Active Team Status: Inactive Member Role Status Dates Dr. Carson Russell MD Primary Care Provider Active Start: September 20, 2024 End: September 20, 2024 ADEOLA CUNNINGHAM Attending Provider Active Star t: September 20, 2024 End: September 20, 2024 ADEOLA CUNNINGHAM Referring Provider Active Star t: September 20, 2024 End: September 20, 2024 Team Status: Inactive Member Role Status Dates Dr. Carson Russell MD Primary Care Provider Active Start: October 03, 2024 End: October 03, 2024 Dr. Krzysztof Wu MD Attending Provider Act jayy Start: October 03, 2024 End: October 03, 2024 Dr. Krzysztof Wu MD Referring Provider Act jayy Start: October 03, 2024 End: October 03, 2024 Team Status: Active Member Role Status Dates Dr. Carson Russell MD Primary Care Provider Active Start: October 11, 2024 Dr. Krzysztof Wu MD Attending Provider Act jayy Start: October 11, 2024 Dr. Krzysztof Wu MD Referring Provider Act jayy Start: October 11, 2024 Team Status: Inactive Member Role Status Dates Dr. Carson Russell MD Primary Care Provider Active Start: October 11, 2024 End: October 11, 2024 Dr. Krzysztof Wu MD Attending Provider Act jayy Start: October 11, 2024 End: October 11, 2024 Dr. Krzysztof Wu MD Referring Provider Act jayy Start: October 11, 2024 End: October 11, 2024 Team Status: Active Member Role Status Dates Dr. Carson Russell MD Primary Care Provider Active Start: October 16, 2024 VERITO PACHECO Attending Provider Active Start: October 16, 2024 VERITO PACHECO Referring Provider Active Start: October 16, 2024 Dr. Krzysztof Wu MD Other Provider Active Start: October 16, 2024 Team Status: Inactive Member Role Status Dates Dr. Carson Russell MD Primary Care Provider Active Start: October 16, 2024 End: October 16, 2024 VERITO PACHECO Attending Provider Active Start: October 16, 2024 End: October 16, 2024 VERITO PACHECO Referring Provider Active Start: October 16, 2024 End: October 16, 2024 Dr. Krzysztof Wu MD Other Provider Active Start: October 16, 2024 End: October 16, 2024 Team Status: Inactive Member Role Status Dates Dr. Carson Russell MD Primary Care Provider Active Start: October 25, 2024 End: October 25, 2024 VREITO PACHECO Attending Provider Active Start: October 25, 2024 End: October 25, 2024 VERITO PACHECO Referring Provider Active Start: October 25, 2024 End: October 25, 2024 Care Team (unrecognized sect ion and content) [...] BE BASED ON THE PRIMARY CLINICAL RECORDS. [employer] provides no warranty or guarantee of the accuracy or completeness of information in this document.
[2024-11-17 08:01] LABS: Anion Gap 10 (5-15); BUN 16 mg/dL (4-19); BUN/Creat Ratio 10.7 RATIO (10-20); Calcium,Total 9.6 mg/dL (7.6-11.0); Carbon Dioxide 21.4 mmol/L (21.0-32.0); Chloride 106 mmol/L (98-108); Creatinine, Serum 1.49 mg/dL (0.70-1.20); EST Glomerular Filtration Rate 40 (>60); Estimated Creatinine Clearance 40.92 ml/min (50-250); Glucose 147 mg/dL (70-99); Potassium 4.5 mmol/L (3.3-5.1); Sodium Level 138 mmol/L (133-145)
[2024-11-17] MEDS: 0.9% Normal Saline (1000mL) 1,000 ML 1000 ML IV (08:06)
[2024-11-17 09:12] VITALS: BP 141/71; PULSE 73; RESP 17; O2SAT 95
[2024-11-17 09:13] LABS: Lactic Acid 1.3 mmol/L (0.0-2.0)
[2024-11-17 10:49] LABS: Bacteria 0 SEEN /hpf (None Seen); Mucous, Urine 0 SEEN /hpf (<or=2+); Red Blood Cells-Urine 0 SEEN /hpf (0-5); White Blood Cells 0 SEEN /hpf (0-5)
[2024-11-17 10:50] LABS: Color, Urine Yellow (Yellow); Glucose, Dipstick Normal (Normal); Ketone-Dipstick Negative (Negative); Leukocyte Esterase-Dipstick 25 /ul (Negative); Nitrite-Dipstick Negative (Negative); Occult Blood-Urine Negative /ul (Negative); Protein-Dipstick 15 mg/dl (Negative); Specific Gravity, Urine 1.015 (1.002-1.030); Urine Bilirubin Dipstick Negative (Negative); Urine Clarity Sl. Cloudy (Clear); Urine Urobilinogen Normal (Normal)
[2024-11-17 11:00] VITALS: PULSE 68; O2SAT 97
[2024-11-17 11:02] LABS: Amorphous Sediment 1+; Squamous Epithelial Cells - UA 0-5 SEEN /hpf (5-10)
[2024-11-17 12:00] VITALS: BP 141/71; PULSE 68; RESP 17; TEMP 36.6; O2SAT 97
== END 2024-11-17 12:06 | disposition home or self-care (01) ==
PROVIDERS: Emergency Provider Emergency Medicine; PCP Family Medicine; Visit Provider Emergency Medicine
DX: J06.9 Acute upper respiratory infection, unspecified (principal); I13.2 Hypertensive heart and chronic kidney disease with heart failure and with stage 5 chronic kidney disease, or end stage renal disease; N18.6 End stage renal disease; I50.9 Heart failure, unspecified; R19.7 Diarrhea, unspecified; Z94.0 Kidney transplant status; Q61.3 Polycystic kidney, unspecified; D72.829 Elevated white blood cell count, unspecified; M10.9 Gout, unspecified; E78.00 Pure hypercholesterolemia, unspecified; Z90.5 Acquired absence of kidney; Z99.2 Dependence on renal dialysis; Z79.82 Long term (current) use of aspirin; Z86.718 Personal history of other venous thrombosis and embolism; Z79.899 Other long term (current) drug therapy
CPT/HCPCS: 36415; 71046; 80048; 81001; 83605; 85025; 87040; 87631; 93005; 96360; 96361; 99283; A4216

== ENCOUNTER 2024-12-13 07:05 | Outpatient (RCR) | payer OTHER, MEDICARE, SELFPAY ==
[2024-12-13 10:31] LABS: Hematocrit 39.3 % (37-47); Hemoglobin 12.5 g/dL (12.0-15.0); Immature Granulocytes Count 0.010 X10^3/uL (0.0-0.0); Mean Corp Hgb Conc 31.8 g/dL (32-36); Mean Corpuscular Volume 92.9 fL (81-99); Mean Platelet Vol. 10.6 fl (6.2-12.0); NRBC Flagged by Analyzer 0 % (0-5); Platelet Count 266 K/mm3 (150-450); RBC Distribution Width CV 13.8 % (11.6-14.6); RBC Distribution Width SD 46.8 fl (35.1-43.9); Red Blood Count 4.23 M/mm3 (4.2-5.4); White Blood Count 7.1 K/mm3 (4.4-11.0)
[2024-12-13 11:28] LABS: AST(SGOT) 16 U/L (<=31); Alanine Aminotransfer ALT/SGPT 17 U/L (<=34); Albumin, Serum 3.8 g/dL (3.4-4.8); Alkaline Phosphatase 91 U/L (35-104); Anion Gap 10 (5-15); BUN 18 mg/dL (4-19); BUN/Creat Ratio 11.4 RATIO (10-20); Calcium 10.3 mg/dL (7.6-11.0); Calcium,Total 10.3 mg/dL (7.6-11.0); Carbon Dioxide 20.2 mmol/L (21.0-32.0); Chloride 111 mmol/L (98-108); Cholesterol 147 mg/dL (<=200); Globulin 2.5 g/dL (2.2-4.2); Glucose 107 mg/dL (70-99); Low Density Lipoprotein Calc. 59 mg/dL; Magnesium 1.9 mg/dL (1.5-2.2); Potassium 4.4 mmol/L (3.3-5.1); Triglycerides 101 mg/dL; Very Low Density Lipoprotein 20 mg/dL (5-40); cholesterol:hdl ratio screen 2.17
[2024-12-13 11:30] LABS: Creatinine, Urine (random) 126.00 mg/dL (28.00-217.00)
[2024-12-13 11:31] LABS: Protein, Urine (Random) 11.7 mg/dL (0.0-12.0); Protein:Creat Ratio 93 mg/g CRE (0-200)
== END 2025-01-03 18:00 | disposition home or self-care (01) ==
LOC: MTLAB 07:05
PROVIDERS: PCP Family Medicine
DX: Z94.0 Kidney transplant status (principal); Z48.298 Encounter for aftercare following other organ transplant; D84.9 Immunodeficiency, unspecified; Z79.899 Other long term (current) drug therapy; R68.89 Other general symptoms and signs; R79.9 Abnormal finding of blood chemistry, unspecified; Z91.89 Other specified personal risk factors, not elsewhere classified
CPT/HCPCS: 36415; 80053; 80061; 80197; 82310; 82570; 83036; 83735; 84156; 85025

== ENCOUNTER → 2025-01-01 | Outpatient (CLI) | payer MEDICARE, OTHER, SELFPAY ==
--- NOTE | 2025-01-01 06:35 | ECHOD_ITS ---
Reason For Study Reason For Study: DILATED CARDIOMYOPATHY Procedure This was a 2D Doppler, Color Flow transthoracic echocardiogram. Exam performed in department. Left Ventricle Normal LV size. Left ventricular systolic function is lower limits of normal. The estimated ejection fraction is 53 %. Stage 1 diastolic dysfunction. No regional wall motion abnormalities noted. Right Ventricle Normal RV size. Normal systolic function. Atria Normal left atrium. Normal right atrium. Mitral Valve Normal mitral valve. Tricuspid Valve Normal tricuspid valve. Aortic Valve Trisinus/trileaflet aortic valve. Pulmonic Valve Normal pulmonic valve. Great Vessels Normal aortic root. The pulmonary artery is normal size. Inferior vena cava collapse with respiration. Pericardium/Pleural No pericardial effusion. MMode/2D Measurements & Calculations LVIDd: 4.4 cm IVSd: 1.4 cm Ao root diam: 3.3 cm LVIDs: 2.8 cm LVPWd: 1.1 cm RVDd: 3.4 cm FS: 36.1 % LAV(MOD-bp): 42.6 ml LVAd ap4: 22.5 cm2 LVAd ap2: 17.7 cm2 LAV(MOD-bp) Indexed: 22.8 ml/m2 LVLd ap4: 7.0 cm LVLd ap2: 6.5 cm LAV(MOD-sp2): 41.0 ml EDV(MOD-sp4): 59.4 ml EDV(MOD-sp2): 39.8 ml LAV(MOD-sp4): 41.7 ml EDV(sp4-el): 61.1 ml EDV(sp2-el): 41.3 ml LVAs ap4: 13.8 cm2 LVAs ap2: 10.2 cm2 LVLs ap4: 6.0 cm LVLs ap2: 5.5 cm ESV(MOD-sp4): 27.7 ml ESV(MOD-sp2): 16.3 ml ESV(sp4-el): 26.9 ml ESV(sp2-el): 15.9 ml EF(MOD-sp4): 53.4 % EF(MOD-sp2): 59.0 % EF(sp4-el): 56.0 % SV(MOD-sp4): 31.7 ml SV(MOD-sp2): 23.5 ml SV(sp4-el): 34.2 ml SI(MOD-sp4): 17.0 ml/m2 SI(MOD-sp2): 12.6 ml/m2 LA A4 area: 14.9 cm2 LA dimension(2D): 3.8 cm RA A4 area: 12.3 cm2 TAPSE: 2.1 cm Time Measurements MV dec time: 0.21 sec Doppler Measurements & Calculations MV E max chad: 73.3 cm/sec Lat Peak E' Chad: 5.2 cm/sec Med Peak E' Chad: 5.2 cm/sec MV A max chad: 82.4 cm/sec E/E' lat: 14.2 E/E' med: 14.2 MV E/A: 0.89 MV V2 max: 94.5 cm/sec MV P1/2t max chad: 82.2 cm/sec Ao V2 max: 88.7 cm/sec MV max P.6 mmHg MV P1/2t: 53.1 msec Ao max P.1 mmHg MV V2 mean: 47.6 cm/sec Ao V2 mean: 63.5 cm/sec MV mean P.1 mmHg MV dec slope: 453.1 cm/sec2 Ao mean P.8 mmHg MV V2 VTI: 26.0 cm MVA(P1/2t): 4.1 cm2 Ao V2 VTI: 21.8 cm AV (velocity ratio): 0.82 LV V1 max: 74.5 cm/sec PA V2 max: 95.7 cm/sec TR max chad: 243.6 cm/sec LV V1 max P.2 mmHg PA V2 mean: 65.2 cm/sec TR max P.7 mmHg LV V1 mean P.2 mmHg LV V1 mean: 51.2 cm/sec LV V1 VTI: 17.9 cm ECHO/Echo Complete Interpretation Summary Normal LV size. Left ventricular systolic function is lower limits of normal. The estimated ejection fraction is 53 %. Stage 1 diastolic dysfunction. Ordering Physician: Chinedu Polo Referring Physician: Raphael Russell Performed By: Lien Higgins, SEBAS, RVT
--- OUTSIDE RECORDS SUMMARY | 2025-01-01 06:39 | XMS RPT_ITS | CCD ---
Author Organization [facility] Care Team Providers Care Tray Server Name Role Phone Aidan Foreman Unavailable Unavailable Unavailable Unavailable Unavailable Unavailable Unavailable Unavailable Unavailable Unavailable Unavailable Unavailable Unavailable Unavailable Yana Torres Unavailable Unavailable FRANDY CAMPO Attending Unavailab CARSON Street Primary Care Unavailable Carson Russell Primary Care Provider [phone] Carson Russell Unavailable Nelson Bass Unavailable SYSTEM, [...] Care Provider Dr. Carson Russell Referring Provider [phone] Martin CANNON, SONIDO Marx Attending Provider Carson [...] Referring Provider Dr. Zay Ortiz Attending Provider [phone] Dr. Chinedu Polo Attending Provider Dr. Carson Russell Referring Provider [phone] Baudilio SKEIN DRIER, SKEIN DRIER-C Derba Attending Provider [phone] Dr. Carson Russell Referring Provider Baudilio SKEIN DRIER, SKEIN DRIER-C Debra Attending Provider [phone] Drew YING, Carson Cheek Primary Care Provider [phone] Judi YING, Junaid Unavailable [phone] Bryce YING, Krzysztof Unavailable Dr. Carson Russell MD Primary Care Provider KESHIA PRESTON Attending Provider [phone] KESHIA PRESTON Referring Provider Bryce YING, Dr. Blankenship Attending Provide r Bryce YING, Dr. Blankenship Referring Provide r TARA MARCIAL Attending Provider TARA MARCIAL Referring Provider [phone] Bryce YING, Dr. Blankenship Other Provider SELF, SELF Referring Unavailable PESTARA MULLIGAN E Attending Unavailable RUSSELL, CARSON A Primary Care Unavailable PESTARA MULLIGAN Attending Provider TARA MARCIAL Referring Provider Alfonso Clement MD Emergency Provider Alfonso Clement MD Attending Provider Dr. Carson Russell MD Referring Provider [phone] Christ YING, Dr. Che Attending Provider Russell, Carson Primary Care Unavailable Christ, [place] Referring Unavailable Christ Chinedu Attending Unavailable Russell, Carson Primary Care Unavailable Christ [place] Attending Unavailable Russell, Carson Referring Unavailable [place] SKEIN DRIER, Debra Attending Unavailable Russell, Carson Primary Care Unavailable Russell, Carson Referring Unavailable Russell, Carson Primary Care Unavailable Irma Mac Attending Unavailable Russell, Carson Referring Unavailable Russell, Carson Primary Care Unavailable Tanphaichitr, Natthavat Referring Unavaila ble Tanphaichitr, Natthzulyt Attending Unavaila ble Alfonso Clement Attending Unavailable Russell, Carson Primary Care Unavailable Baudilio SKEIN DRIER, Debra Referring Unavailable [place] SKEIN DRIER, Debra Attending Unavailable Russell, Carson Primary Care Unavailable Russell, Carson Primary Care Unavailable Tanphaichitr, Natthavat Referring Unavaila ble Tanphaichitr, Natthavat Attending Unavaila ble KOHARA, MALDONADO Attending Unavailable KOHARA, MALDONADO Referring Unavailable Russell, Carson Primary Care Unavailable Russell, Carson Primary Care Unavailable Tanphaichitr, Natthavat Referring Unavaila ble Tanphaichitr, Natthavat Attending Unavaila ble KOHARA, MALDONADO Attending Unavailable KOHARA, MALDONADO Referring Unavailable Russell, Carson Primary Care Unavailable Tanphaichitr, Natthavat Consulting Unavaila ble KOHARA, MALDONADO Attending Unavailable Russell, Carson Primary Care Unavailable McMorrow SKEIN DRIER, Moses Referring Unavailable KOHARA, MALDONADO Attending Unavailable KOHARA, MALDONADO Referring Unavailable Russell, Carson Primary Care Unavailable Susie, Bunny Consulting Unavailable Tanphaichitr, Natthavat Consulting Unavaila ble Russell, Carson Primary Care Unavailable Tanphaichitr, Natthavat Referring Unavaila ble Tanphaichitr, Natthavat Attending Unavaila ble KOHARA, MALDONADO Attending Unavailable KOHARA, MALDONADO Referring Unavailable Russell, Carson Primary Care Unavailable KOHARA, MALDONADO Attending Unavailable KOHARA, MALDONADO Referring Unavailable Susie, Bunny Consulting Unavailable Russell, Carson Primary Care Unavailable Tanphaichitr, Natthavat Consulting Unavaila ble KOHARA, MALDONADO Attending Unavailable KOHARA, MALDONADO Referring Unavailable Russell, Carson Primary Care Unavailable Susie, Bunny Consulting Unavailable Tanphaichitr, Natthavat Consulting Unavaila ble Basali, Ayman Referring Unavailable Basali, Ayman Attending Unavailable Russell, Carson Primary Care Unavailable Allergies Allergy Classification Reported Allergen(s) Allergy Type Date of Onset Reaction(s) Facility (20 sources) Codeine; Translations: [codeine] Drug Allergy 0 Nausea, Vomiting, Nausea and Vomiting, Feeling nervous (finding), Nausea (finding) [facility] Work Phone: (20 sources) Penicillins; Translations: [Penicillins] Allergy to drug (finding) 0 Rash [facility] Work Phone: (20 sources) Cephalexin; Translations: [cephalexin] Drug Allergy 0 Itching, Nausea Only, Weal (disorder) [facility] (10 sources) Penicillins Allergy to substance 2 Rash [facility] (1 source) Penicillin; Translations: [penicillin] Drug Allergy [facility] Medications Current Medications Medication Drug Class(es) Dates Sig (Normalized) Sig (Original) acetaminophen 500 mg oral tablet (20 sources) Start: 11-09-2022 take 500 mg by mouth once Acetaminophen Active 500 MG PO ONCE November 08, 2022 11:00pm Start: 04-13-2021 take 2 tablets by mo uth every six hours as needed acetaminophen 325 [...] 03, 2018 1:00am December 27, 2019 2:12pm [id number] 200 actuat albuterol 0.09 mg/actuat metered dose [...] release (DR/EC) Active 81 mg PO DAILY February 9th, 2021 1:00am aspirin 81 MG Ch ew Tab chewable tablet Chew 1 tablet daily. Active cholecalciferol 1.25 mg oral capsule (6 sources) Vitamin D Start: 01-28-2024 take 1 capsule by mouth every week Cholecalciferol (Vitamin D3) 1,250 mcg (50,000 unit) capsule Active 1250 ug PO EVERY WEEK January 28, 2024 12:00am ergocalciferol 0.05 mg oral capsule (20 sources) Provitamin D2 Compound Start: 11-27-2024 Ergocalciferol (Vitamin D2) 50 mcg (2,000 unit) capsule Active 50 ug PO every other day November 27, 2024 12:00am Start: 07-17-2015 End: 12-27-2019 Ergocalciferol (Vitamin D2) 50,000 UNIT capsule Discontinued 36320 U PO EVERY MONTH September 01, 2016 12:00am December 27, 2019 2:12pm Start: 07-17-2015 take 1 capsule by mo [facility] once, then take 1 capsule by mouth every month Vitamin D (Ergocalciferol) 78543 UNIT Oral Capsule TAKE 1 CAPSULE Take 1 capsule 1x/month Refills: 0 DO Start : 17-Jul-2015 Active magnesium oxide 400 mg oral capsule (20 sources) Start: 12-03-2021 take 1 capsule by mouth twice daily Magnesium Oxide 400 mg magnesium capsule Active 400 mg PO TWICE A DAY December 03, 2021 12:00am Start: 09-15-2021 take 1 tablet by nir twice daily magnesium oxide 400 (241.3 Mg) MG tablet Take 1 tablet by mouth 2 times daily. 60 tablet 3 09/15/2021 Active mycophenolic acid 360 mg delayed release oral tablet (20 sources) Antimetabolite Immunosuppressant Start: 08-24-2024 take 1 tablet by mouth every twelve hours Mycophenolate sodium (MYFORTIC) [address] patrick MILLS Indications: Kidney replaced by transplant , High risk medication use TAKE 1 TABLET BY MOUTH EVERY 12 HOURS 60 tablet 11 08/24/2024 Active Start: 08-17-2023 take 1 tablet by nir th every twelve hours Mycophenolate sodium (MYFORTIC) [address] patrick MILLS Indications: Kidney replaced by transplant , High risk medication use TAKE 1 TABLET BY MOUTH EVERY 12 HOURS 60 tablet 08/17/2023 Active Start: 11-09-2022 take 1 tablet by nir twice daily Mycophenolate Sodium 180 mg tablet,delayed [...] 8 hours as needed for Nausea. Active oxyCODONE hydrochloride 5 mg oral tablet (20 sources) Opioid Agonist Start: 11-17-2024 take 1 tablet by mouth every six hours as needed for pain Oxycodone 5 mg tablet Active 5 mg PO EVERY 6 HOURS as needed for low back pain November 17, 2024 12:00am Start: 11-09-2022 take 5 mg by mouth once Oxycod one Active 5 MG PO ONCE November 08, [...] PAIN. Refills: 0 Start : 22-Mar-2016 Active sulfamethoxazole 800 mg / trimethoprim 160 [...] oral tablet Dose = 1 tab(s), Oral, Mon/Wed/Fri, 0 Refill(s) Start Date: 09/26/20 Status: Ordered [...] 1 capsule by mo uth twice daily Tacrolimus 1 mg capsule Active 1 mg PO TWICE A DAY March 25, 2022 8:45am ubidecarenone 100 mg oral capsule (6 sources) Start: 01-28-2024 take 10 capsules by [...] 20 mg tablet Discontinued 0 .ROUTE .COMPLEX 90 May 03, 2023 8:58am May 09, 2023 2:00pm TAKE 1 TABLET BY MOUTH AT BEDTIME B Complex And C 20-Folic Acid 1 CAPSULE capsule (2 sources) Start: 03-25-2020 End: 05-07-2020 B Complex And C 20-Folic Acid 1 CAPSULE capsule Discontinued 1 NMA PO DAILY March 25, 2020 12:00am May 07, 2020 5:07pm B Complex With C 20-Folic Acid (20 [...] B Complex-Vitamin C-Folic Acid 0.8 MG tablet (6 sources) Start: 09-01-2016 End: 12-27-2019 take 1 [...] 01, 2021 1:00am September 10, 2021 8:41am 12 hr dextromethorphan polistirex 6 mg/ml extended release suspension (2 sources) Uncompetitive R-slzlwc-M-aspart ate Receptor Antagonist, Sigma-1 Agonist Start: 11-17-2024 End: 11-27-2024 take 1 mL by mouth every twelve hours as needed for cough Dextromethorphan Polistirex (Delsym 12 Hour) 30 mg/5 mL suspension,extended rel 12 hr Discontinued 20 mL PO Q12H as needed for cough November 17, 2024 12:00am November 27, 2024 9:21am diclofenac sodium 0.01 mg/mg topical gel (20 [...] 27, 2019 12:00am January 15, 2021 11:16am gabapentin 100 mg oral capsule (20 sources) Anti-epilepti c Agent Start: 11-09-2022 End: 05-03-2023 take 1 capsule by mouth twice daily Gabapentin 100 mg capsule Discontinued 100 mg PO TWICE A DAY November 09, 2022 2:05pm May 03, 2023 12:24pm Start: 09-21-2022 End: 11-17-2024 take 1 capsule by mouth once daily Gabapentin 100 mg capsule Discontinued 100 mg PO DAILY May 03, 2023 12:23pm November 17, 2024 8:03am Start: 03-25-2022 End: 11-09-2022 take 3 capsules [...] 2022 11:00pm take 1 capsule by mo [facility] three times daily gabapentin 300 MG capsule Take 300 mg by mouth 3 times daily. 0 Active guaiFENesin 20 mg/ml oral solution (2 sources) Start: 11-17-2024 End: 11-27-2024 take 400 mg by mouth every six hours as needed for cough Guaifenesin (Mucinex Fast-Max Chest-Congest) 100 mg/5 mL liquid Discontinued 400 mg PO EVERY 6 HOURS as needed for cough November 17, 2024 12:00am November 27, 2024 9:21am levoFLOXacin 750 mg oral tablet (20 sources) [...] Discontinued 12.5 mg PO TWICE A DAY 180 July 08, 2020 5:58pm July 15, 2020 3:20pm Start: 07-08-2020 End: 07-15-2020 take 12.5 mg by mouth twice daily Metoprolol Tartrate Discontinued 12.5 MG PO TWICE A DAY 180 July 08, 2020 5:58pm July 15, 2020 [...] 10 mg PO pt to 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 re: take only on dialysis days vs every day Midodrine HCl - 10 MG Oral Tablet Take as directed Refills: 0 Active nystatin 707186 unt/ml oral suspension (1 source) Polyene Antifungal Start: 09-26-2020 take 1 mL by mouth four times daily nystatin 100,000 units/mL oral suspension Dose : 100,000 unit(s) = 1 mL, Oral, QID, # 30 mL, 0 Refill(s) Start Date: 09/26/20 Status: Ordered Renal 1 MG Oral Capsule (11 sources) Start: 06-24-2015 take 1 capsule by mouth once daily Renal 1 MG Oral Capsule TAKE 1 CAPSULE Daily Quantity: 30 Refills: 0 Start : 24-Jun-2015 Active Start: 06-24-2015 take 1 capsule by mo ut once daily Renal 1 MG Oral Capsule [...] (congestive) and diastolic (congestive) heart failure] Onset: 04-22-20 20 05-18-2021 Chronic Diseases of white blood cells (2 sources) Leukocytosis; Translations: [Elevated white blood cell count, unspecified] 11-17-2024 Chronic Disorders of lipid metabolism (4 sources) Hyperlipidemia; Translations: [Hyperlipidemia, unspecified] Onset: 09-13-19 Chronic Essential hypertension (20 sources) Essential hypertension; Translations: [Essential (primary) hypertension] Onset: 09-13-19 Chronic Fever of unknown origin (20 sources) Fever; Translations: [Fever, unspecified] 09-17-2021 Episodic Genitourinary congenital anomalies (17 sources) Cystic disease of kidney; 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] Onset: 01-27-20 10 10-11-2019 Chronic Genitourinary congenital anomalies (10 sources) Multiple renal cysts; Translations: [History of Polycystic kidney disease] Episodic Gout and other crystal arthropathies (1 source) Gout, unspecified; Translations: [Gout, unspecified] Onset: 11-28-19 Chronic Hypertension with complications and secondary hypertension [...] unspecified; Translations: [Vitamin D deficiency, unspecified] Onset: 11-28-19 Chronic Osteoarthritis (1 source) Unilateral primary osteoarthritis, right hip; Translations: [Unilateral primary osteoarthritis, right hip] Onset: 01-23-20 24 Chronic Other aftercare (4 sources) Transplant follow-up; Translations: [Encounter for aftercare following other organ transplant] Chronic Other aftercare (2 sources) Encounter for aftercare following other organ transplant; Translations: [Encounter for aftercare following other organ transplant] Onset: 09-13-19 Chronic Other aftercare (3 sources) Long-term current use of immunosuppressive drug; Translations: [Other chcf (current) drug therapy] Episodic Other aftercare (4 sources) Taking high risk medication; Translations: [Other chcf (current) drug therapy] Episodic Other aftercare (3 sources) 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; Translations: [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] Onset: 09-13-19 Episodic Other gastrointestinal disorders (20 sources) Disorder of abdominal wall; Translations: [Intra-abdominal [...] disorders (1 source) Hypomagnesemia; Translations: [Hypomagnesemia] Onset: 11-28-19 Chronic Other screening for suspected conditions (not mental disorders or infectious disease) (13 sources) Blood chemistry abnormal; Translations: [Abnormal finding of blood chemistry, unspecified] Onset: 04-05-20 Episodic Other upper respiratory infections (20 sources) Upper respiratory infection; Translations: [Acute upper respiratory infection, unspecified] 09-17-2021 Episodic Bhargavi-; endo-; and myocarditis; cardiomyopathy (except that caused by tuberculosis or sexually transmitted disease) (20 sources) Cardiomyopathy; Translations: [Other cardiomyopathies] Onset: 12-19-19 Chronic Residual codes; unclassified (4 sources) Awaiting [...] risk factors, not elsewhere classified] Onset: 09-13-19 Episodic Unclassified (1 source) 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; Translations: [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] Onset: 09-13-19 Unclassified (1 source) Cough, unspecified; Translations: [Cough, unspecified] Onset: 11-25-19 Urinary tract infections (20 sources) Urinary tract infectious disease; Translations: [Urinary tract infection, site not specified] 08-09-2021 Episodic Viral infection (20 sources) Disease caused by 2019-nCoV; Translations: [COVID-19] 03-25-2022 Episodic Past or Other Problems Problem Classification Problem Date Documented Da te Episodic/Chronic Fluid and electrolyte disorders (4 sources) Hyperkalemia; Translations: [Hyperkalemia] Onset: 0 10-11-2019 Episodic Other skin disorders (4 sources) Sebaceous cyst of skin; Translations: [Sebaceous cyst] Onset: 3 10-11-2019 Episodic Phlebitis; thrombophlebitis and thromboembolism (8 sources) Acute deep venous thrombosis of axillary vein; Translations: [Acute embolism and thrombosis of unspecified axillary vein] Onset: 0 10-11-2019 Episodic Unclassified (20 sources) Patient encounter status; Translations: [Pre-transplant evaluation for kidney transplant] Unclassified (1 source) 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 It has not been cleared or approvedby [...] ng/mL Performed by LC-MS/MS technology. Performed at: [address] [id number] [employer]: Amaury Dubois MD, Phone: [phone] Performed By: #### L 500.3600 #### [facility] [address] [place], [address] CBC W/Diff, Automatedon 07-1 0-2025 Absolute Lymph 0.94 X10 3/uL Normal 0.83-4.51 [facility] Comment on above: Performed By: #### L 500.3600 #### [facility] [address] [place], [address] Absolute Neut 5.1 X10 3/uL Normal 2.0-7.7 [facility] Comment on above: Performed By: #### L 500.3600 #### [facility] [address] [place], [address] Basophils/100 WBC (Bld) 1.3 % High 0-1 [facility] Comment on above: Performed By: #### L 500.3600 #### [facility] [address] [place], [address] Eosinophils/100 WBC (Bld) 4.4 % Normal 0-5 [facility] Comment on above: Performed By: #### L 500.3600 #### [facility] [address] [place], [address] Erythrocyte distribution width (RBC) [Ratio] 13.8 % Normal 11.6-14.6 [facility] Comment on above: Performed By: #### L 500.3600 #### [facility] [address] [place], [address] Hematocrit (Bld) [Volume fraction] 39.3 % Normal 37-47 [facility] Comment on above: Performed By: #### L 500.3600 #### [facility] [address] [place], [address] Hemoglobin (Bld) [Mass/Vol] 12.5 g/dL Normal 12.0-15.0 [facility] Comment on above: Performed By: #### L 500.3600 #### [facility] [address] [place], [address] IG% 0.100 Normal 0.0-0.9 [facility] Comment on above: Result Comment: IG% - Immature Granulocytes (promyelocytes, myelocytes and metamyelocytes) > 1% indicates that a LEFT SHIFT is Present. Performed By: #### L 500.3600 #### [facility] [address] [place], [address] Lymphocytes/100 WBC (Bld) 13.3 % Low 19-41 [facility] Comment on above: Performed By: #### L 500.3600 #### [facility] [address] [place], [address] MCH (RBC) [Entitic mass] 29.6 pg Normal 27.0-32.0 [facility] Comment on above: Performed By: #### L 500.3600 #### [facility] [address] [place], [address] MCHC (RBC) [Mass/Vol] 31.8 g/dL Low 32-36 [facility] Comment on above: Performed By: #### L 500.3600 #### [facility] [address] [place], [address] MCV (RBC) [Entitic vol] 92.9 fL Normal 81-99 [facility] Comment on above: Performed By: #### L 500.3600 #### [facility] [address] [place], [address] Monocytes/100 WBC (Bld) 8.1 % Normal 0-10 [facility] Comment on above: Performed By: #### L 500.3600 #### [facility] [address] [place], [address] Neutrophils/100 WBC (Bld) 72.8 % High 47-70 [facility] Comment on above: Performed By: #### L 500.3600 #### [facility] [address] [place], [address] Nucleated RBC (Bld) [#/Vol] 0 10*3/uL Normal 0-5 [facility] Comment on above: Performed By: #### L 500.3600 #### [facility] [address] [place], [address] Platelet mean volume (Bld) [Entitic vol] 10.6 fL Normal 6.2-12.0 [facility] Comment on above: Performed By: #### L 500.3600 #### [facility] [address] [place], [address] Platelets (Bld) [#/Vol] 266 10*3/uL Normal 150-450 [facility] Comment on above: Performed By: #### L 500.3600 #### [facility] [address] [place], [address] RBC (Bld) [#/Vol] 4.23 10*6/uL Normal 4.2-5.4 [facility] Comment on above: Performed By: #### L 500.3600 #### [facility] [address] [place], [address] RDW SD 46.8 fl High 35.1-43.9 [facility] Comment on above: Performed By: #### L 500.3600 #### [facility] [address] [place], [address] WBC (Bld) [#/Vol] 7.1 10*3/uL Normal 4.4-11.0 [facility] Comment on above: Performed By: #### L 500.3600 #### [facility] [address] [place], [address] Comprehensive Metabolic Prof ilon 12-13-2024 Albumin [Mass/Vol] 3.8 g/dL Normal 3.4-4.8 [facility] Comment on above: Order Comment: Order Date: 11/26/24Order Info: [id number] - LIPIDANGEL MCMORROW GETS RESULTS FOR LIPID AND A1C DR. PRESTON [facility] GETS RESULTS FOR ALL OTHER LABS FAX [phone] Performed By: #### L 500.3600 #### [facility] [address] [place], [place], [address] Albumin/Globulin [Mass ratio] 1.5 {ratio} Normal 0.9-2.4 [facility] Comment on above: Order Comment: Order Date: 11/26/24Order Info: [id number] - LIPIDANGEL MCMORROW GETS RESULTS FOR LIPID AND A1C DR. [facility] GETS RESULTS FOR ALL OTHER LABS FAX [phone] Performed By: #### L 500.3600 #### [facility] [address] [place], [address] ALK PHOS 91 U/L Normal 35-104 [facility] Comment on above: Order Comment: Order Date: 11/26/24Order Info: [id number] - LIPIDANGEL MCMORROW GETS RESULTS FOR LIPID AND A1C DR. PRESTON [facility] GETS RESULTS FOR ALL OTHER LABS FAX [phone] Performed By: #### L 500.3600 #### [facility] [address] [place], [address] ALT [Catalytic activity/Vol] 17 U/L Normal <=34 [facility] Comment on above: Order Comment: Order Date: 11/26/24Order Info: [id number] - LIPIDANGEL MCMORROW GETS RESULTS FOR LIPID AND A1C DR. PRESTON [facility] GETS RESULTS FOR ALL OTHER LABS FAX [phone] Performed By: #### L [id number] #### [facility] [address] [place], [address] AST [Catalytic activity/Vol] 16 U/L Normal <=31 [facility] Comment on above: Order Comment: Order Date: 11/26/24Order Info: [id number] - LIPIDANGEL MCMORROW GETS RESULTS FOR LIPID AND A1C DR. PRESTON [facility] GETS RESULTS FOR ALL OTHER LABS FAX [phone] Performed By: #### L 500.3600 #### [facility] [address] [place], [address] Bilirubin [Mass/Vol] 0.49 mg/dL Normal 0.00-1.30 [facility] Comment on above: Order Comment: Order Date: 11/26/24Order Info: [id number] [facility] AND A1C [facility] PRESTON [facility] GETS RESULTS FOR ALL OTHER LABS FAX [phone] Performed By: #### L 500.3600 #### [facility] [address] [place], [address] BUN/CRE 11.4 RATIO Normal 10-20 [facility] Comment on above: Order Comment: Order Date: 11/26/24Order Info: [id number] - LIPIDANGEL MCMORR GETS RESULTS FOR LIPID AND A1C DR. PRESTON [facility] GETS RESULTS FOR ALL OTHER LABS FAX [phone] Performed By: #### L 500.3600 #### [facility] [address] [place], [address] Calcium [Mass/Vol] 10.3 mg/dL Normal 7.6-11.0 [facility] Comment on above: Order Comment: Order Date: 11/26/24Order Info: [id number] - LIPIDANGEL MCMORROW GETS RESULTS FOR LIPID AND A1C DR. PRESTON [facility] GETS RESULTS FOR ALL OTHER LABS FAX [phone] Performed By: #### L [id number] #### [facility] [address] [place], [place], [address] Chloride [Moles/Vol] 111 mmol/L High 98-108 [facility] Comment on above: Order Comment: Order Date: 11/26/24Order Info: [id number] - LIPIDANGEL MCMORROW GETS RESULTS FOR LIPID AND A1C DR[facility] PRESTON [facility] GETS RESULTS FOR ALL OTHER LABS FAX [phone] Performed By: #### L [id number] #### [facility] [address] [place], [address] CO2 [Moles/Vol] 20.2 mmol/L Low 21.0-32.0 [facility] Comment on above: Order Comment: Order Date: 11/26/24Order Info: [id number] - LIPIDANGEL MCMORROW GETS RESULTS FOR LIPID AND A1C DR. PRESTON [facility] GETS RESULTS FOR ALL OTHER LABS FAX [phone] Performed By: #### L [id number] #### [facility] [address] [place], [address] Creatinine [Mass/Vol] 1.59 mg/dL High 0.70-1.20 [facility] Comment on above: Order Comment: Order Date: 11/26/24Order Info: 86984-1 - LIPIDANGEL [facility] GETS RESULTS FOR LIPID AND A1C DR. PRESTON [facility] GETS RESULTS FOR ALL OTHER LABS FAX [phone] Performed By: #### L 500.3600 #### [facility] [address] [place], [address] GAP 10 Normal 5-15 [facility] Comment on above: Order Comment: Order Date: 11/26/24Order Info: 39088-8 - LIPIDANGEL SUEORROW GETS RESULTS FOR LIPID AND A1C DR. PRESTON [facility] GETS RESULTS FOR ALL OTHER LABS FAX [phone] Performed By: #### L 500.3600 #### [facility] [address] [place], [place], [address] GFR/1.73 sq M.predicted among non-blacks MDRD (S/P/Bld) [Vol rate/Area] 37 mL/min/{1.73_m2} Low >60 [facility] Comment on above: Order Comment: Order Date: 11/26/24Order Info: [id number] - [facility] AND A1C [facility] PRESTON [facility] GETS RESULTS FOR ALL OTHER LABS FAX [phone] Result Comment: mL/m in/1.73m2 CKD-EPI Creatinine Equation (2020) Performed By: #### L 500.3600 #### [facility] [address] [place], [place], [address] Globulin (S) [Mass/Vol] 2.5 g/dL Normal 2.2-4.2 [facility] Comment on above: Order Comment: Order Date: 11/26/24Order Info: 14796-5 - [facility]IP[facility] AND A1C [facility] PRESTON [facility] GETS RESULTS FOR ALL OTHER LABS FAX [phone] Performed By: #### L 500.3600 #### [facility] [address] [place], [place], [address] Glucose [Mass/Vol] 107 mg/dL High 70-99 [facility] Comment on above: Order Comment: Order Date: 11/26/24Order Info: 77105-4 - LIPIDANGEL MCMORROW GETS RESULTS FOR LIPID AND A1C DR[facility] PRESTON [facility] GETS RESULTS FOR ALL OTHER LABS FAX [phone] Performed By: #### L 500.3600 #### [facility] [address] [place], [place], [address] (507) Potassium [Moles/Vol] 4.4 mmol/L Normal 3.3-5.1 [facility] Comment on above: Order Comment: Order Date: 11/26/24Order Info: [id number] - LIPIDANGEL MCMORROW GETS RESULTS FOR LIPID AND A1C DR[facility] PRESTON [facility] GETS RESULTS FOR ALL OTHER LABS FAX [phone] Performed By: #### L 500.3600 #### [facility] [address] [place], [place], [address] (797) Sodium [Moles/Vol] 141 mmol/L Normal 133-145 [facility] Comment on above: Order Comment: Order Date: 11/26/24Order Info: [id number] - LIPIDANGEL MCMORROW GETS RESULTS FOR LIPID AND A1C DR[facility] PRESTON [facility] GETS RESULTS FOR ALL OTHER LABS FAX [phone] Performed By: #### L 500.3600 #### [facility] [address] [place], [place], [address] T PROT 6.3 g/dL Normal 5.9-8.4 [facility] Comment on above: Order Comment: Order Date: 11/26/24Order Info: 61880-4 - LIPIDANGEL MCMORROW GETS RESULTS FOR LIPID AND A1C DR[facility] PRESTON [facility] GETS RESULTS FOR ALL OTHER LABS FAX [phone] Performed By: #### L 500.3600 #### [facility] [address] [place], [place], [address] Urea nitrogen [Mass/Vol] 18 mg/dL Normal 4-19 [facility] Comment on above: Order Comment: Order Date: 11/26/24Order Info: [id number] - LIPIDANGEL MCMORROW GETS RESULTS FOR LIPID AND A1C DR[facility] PRESTON [facility] GETS RESULTS FOR ALL OTHER LABS FAX [phone] Performed By: #### L 500.3600 #### [facility] [address] [place], [address] Hemoglobin A1con 12-13-2024 HbA1c (Bld) [Mass fraction] 6.0 % High <=5.6 [facility] Comment on above: Order Comment: Order Date: 11/26/24 Order Info: 4548-4 - A1C Result Comment: Norm al < 5.7 % Prediabetic 5.7 - 6.4 % Diabetic >or= 6.5 % Please note range changes. Performed By: #### L 501.9985 #### [facility] [address] [place], [place], [address] Lipid Profileon 12-13-2024 CHOL:HDL 2.17 Normal [facility] Comment on above: Order Comment: Order Date: 11/26/24 Order Info: 10124-4 - LIPID [facility] GETS RESULTS FOR LIPID AND A1C DR. PRESTON FROM [facility] GETS RESULTS FOR ALL OTHER LABS FAX [phone] Performed By: #### L 500.4100 #### [facility] [address] [place], [place], [address] Cholesterol [Mass/Vol] 147 mg/dL Normal <=200 [facility] Comment on above: Order Comment: Order Date: 11/26/24 Order Info: [id number] - LIPID [facility] GETS RESULTS FOR LIPID AND A1C DR. PRESTON FROM [facility] GETS RESULTS FOR ALL OTHER LABS FAX [phone] Result Comment: Chol esterol level, Desirable <200 mg/dL Borderline high cholesterol 200-239 mg/dL High cholesterol >=240 mg/dL Recommendations of the NCEP Adult Treatment Panel for the following risk-cutoff thresholds for the [place] population. Performed By: #### L 500.1210 #### [facility] [address] [place], [place], [address] Cholesterol in HDL [Mass/Vol] 68 mg/dL Normal [facility] Comment on above: Order Comment: Order Date: 11/26/24 Order Info: [id number] - LIPID [facility] GETS RESULTS FOR LIPID AND A1C DR. PRESTON FROM [facility] GETS RESULTS FOR ALL OTHER LABS FAX [phone] Result Comment: Linda onal Cholesterol Education Program (NCEP) guidelines: <40 mg/dL: Low HDL-cholesterol (major risk factor for CHD) >= 60 mg/dL: High HDL-cholesterol (negative risk factor for CHD) HDL-cholesterol is affected by a number of factors, e.g. smoking, exercise, hormones, sex and age. Performed By: #### L 500.4100 #### [facility] [address] [place], [address] Cholesterol in LDL [Mass/Vol] 59 mg/dL Normal [facility] Comment on above: Order Comment: Order Date: 11/26/24 Order Info: 09197-4 - [facility]IP[facility] AND A1C DR. PRESTON FROM [facility] GETS RESULTS FOR ALL OTHER LABS FAX [phone] Result Comment: Bord cpyjmx=653-362 mg/dL Higher Vobs=546 mg/dL or greater Performed By: #### L 500.4100 #### [facility] [address] [place], [address] Cholesterol in VLDL [Mass/Vol] 20 mg/dL Normal 5-40 [facility] Comment on above: Order Comment: Order Date: 11/26/24 Order Info: [id number] - LIPID [facility] GETS RESULTS FOR LIPID AND A1C DR. PRESTON FROM [facility] GETS RESULTS FOR ALL OTHER LABS FAX [phone] Performed By: #### L 500.4100 #### [facility] [address] [place], [address] Triglyceride [Mass/Vol] 101 mg/dL Normal [facility] Comment on above: Order Comment: Order Date: 11/26/24 Order Info: 70307-6 - [facility] FOR LIPID AND A1C DR. PRESTON FROM [facility] GETS RESULTS FOR ALL OTHER LABS FAX [phone] Result Comment: The drugs N-Acetylcysteine and Metamizole may falsely depress this assay. Normal range: <150 mg/dL Borderline High: 150-199 mg/dL High: 200-499 mg/dL Very High: >500 mg/dL Performed By: #### L 500.4100 #### [facility] [address] [place], [address] Magnesiumon 12-13-2024 Magnesium [Mass/Vol] 1.9 mg/dL Normal 1.5-2.2 [facility] Comment on above: Order Comment: Order Date: 11/26/24Order Info: [id number] - LIPIDANGEL MCMORROW GETS RESULTS FOR LIPID AND A1C DR[facility]ON [facility] GETS RESULTS FOR ALL OTHER LABS FAX [phone] Performed By: #### L 500.3600 #### [facility] [address] [place], [address] Protein+Creatinine Ratio,Uri neon 12-13-2024 PROT:CRE RATIO 93 mg/g CRE Normal 0-200 [facility] Comment on above: Performed By: #### L 500.3600 #### [facility] [address] [place], [address] Protein (U) [Mass/Vol] 11.7 mg/dL Normal 0.0-12.0 [facility] Comment on above: Performed By: #### L 500.3600 #### [facility] [address] [place], [address] Cardiology Visit Reporton Cardiology Visit Report [facility] [address] [place], [place] [address] OFFICE VISIT Date of Service: 11/27/24 MR#: [id number] Acct: [id number] Name: CATE FOX Rep #: [id number] : 1960 Provider: Dr. Chinedu Polo MD Age/Sex: 63/F Location: [facility] Status: Signed HPI HPI History of Present Illness Details: Cate Fox is a 63 year old female that presents today for a follow up visit. In April 2020 she presented to the emergency room with shortness of breath. She was noted to be in congestive heart failure. Echocardiogram demonstrated a decreased ejection fraction of 25%. She had an echocardiogram earlier that year which demonstrated an EF of 60%, stress test in February was negative for ischemia. She did undergo a heart catheterization in June 2020 which did not demonstrate any significant coronary disease. Repeat echocardiogram in August 2020 demonstrated an improved ejection fraction of 55%. She was diagnosed with polycystic kidney disease and had undergone a bilateral nephrectomy. She eventually underwent a kidney transplant in September of 2020. A repeat echocardiogram in January of 2021 demonstrated an ejection fraction of 60%. She tells me that she is doing well overall and I would not recommend that we make any major changes. Intake Vital Signs 05/25/23 10:02 11/17/24 07:12 11/27/24 09:19 Height 5 ft 5 ft 5 ft Weight: 205 lb BMI 40.0 BP 131/87 H Blood Pressure Location Rt brachial Position Sitting Respiration 16 Pulse 73 Pulse Source Monitor Intake Visit Reasons: 2 y fu Acquisitions Analyst Required: No Accompanied by: Self Is patient in pain?: No Allergies cephalexin Allergy (Mild, Verified 11/27/24 09:20) rash codeine Adverse Reaction (Verified 11/27/24 09:20) Nausea Medications ???Medication ???Instructions ???Recorded ???Confirmed ???Type allopurinol 100 mg tablet 100 mg PO MOWEFR gout 09/01/16 History albuterol sulfate 90 mcg/actuation 2 puff inhalation Q6H PRN Wheezi ng 12/27/19 11/27/24 History aerosol inhaler aspirin 81 mg tablet,delayed 81 mg PO DAILY 07/15/20 11/27/24 H istory release (Adult Aspirin Regimen) magnesium oxide 400 mg PO BID 12/03/21 11/27/24 Hi story tacrolimus 1 mg capsule, 1 mg PO BID 03/25/22 11/27/24 Hist ory immediate-release mycophenolate sodium 180 mg 180 mg PO BID 11/09/22 11/27/24 Hi story tablet,delayed release sulfamethoxazole 800 1 tab PO MOWEFR 05/09/23 11/27/24 History mg-trimethoprim 160 mg tablet cholecalciferol (vitamin D3) 1,250 1,250 mcg PO QWEEK 01/28/2411/05 History mcg (50,000 unit) capsule coenzyme Q10 100 mg capsule 100 mg PO DAILY 01/28/24 11/27/24 History atorvastatin 20 mg tablet 20 mg PO QHS #90 TABLETS 04/27/24 11/27/24 Rx oxycodone 5 mg tablet 5 mg PO Q6H PRN low back pain 11/0411/27/24 History ergocalciferol (vitamin D2) 50 mcg 50 mcg PO Q OTHER DAY 11/27/24 0 11/27/24 History (2,000 unit) capsule Have you fallen in the past year?: No PFSH Medical History COVID-19 Wears glasses Wears partial dentures Wears [...] safe at home: Yes additional social history: Mykyrtp-Zvblfr-Yfbft [employer] ROS Const Const: Negative for fatigue, weakness, headache(s), daytime sleepi (more content not included)... Normal [facility] Culture, Blood (WB)on 2024 CUB Blood cultures x2, f rom two different sites No growth in 5 days. Normal [facility] Comment on above: Performed By: #### L 3380.1000, L501.1800, L500.2500, L100.0500, L501.0900, L501.2300 #### [facility] [address] [place], [address] 12 Lead EKGon 11-17-2024 12 Lead EKG [facility] [address] [place] [address] 12 Lead EKG 11/17/24 0753 MR#: [id number] Acct: [id number] Name: CATE FOX Rep #: [id number] : 1960 63 From: Chinedu Polo MD Attending Dr: Status: DEP ER Ordering Dr: Alfonso Clement MD Date: 11/17/24 Location: ED Sex: F C Admitted: Test Reason : COUGH Blood Pressure : */* mmHG Vent. Rate : 77 BPM Atrial Rate : 77 BPM P-R Int : 142 ms QRS Dur : 76 ms QT Int : 346 ms P-R-T Axes : 57 -7 67 degrees QTcB Int : 391 ms Normal sinus rhythm Inferior infarct , age undetermined Abnormal ECG Confirmed by CHINEDU POLO MD ([id number]), assignment editor SHAREE LAMB ([id number]) on 11/20/2024 8:21:52 AM Referred By: Confirmed By: CHINEDU POLO MD 11/20/24 0821 Date Chinedu Polo MD CC: Dr. Alfonso Clement MD; Dr. Carson Russell MD Signed Normal [facility] Absolute lymphocyte countOrd ered By: Alfonso Clement on 11-17-2024 Lymphocytes Auto (Unsp spec) [#/Vol] 0.73 10*3/uL Low 0.83-4.51 [facility] Absolute neutrophil countOrd ered By: Alfonso Clement on 11-17-2024 Neutrophils (Bld) [#/Vol] 17.3 10*3/uL High 2.0-7.7 [facility] Amorphous sediment detection in urine sediment by light microscopyOrdered By: Alfonso Clement on 11-17-2024 Amorphous sediment LM Ql (Urine sed) 1+ [facility] Anion gap in Serum or Plasma Ordered By: Alfonso Clement on 11-17-2024 Anion gap [Moles/Vol] 10 mmol/L 5- [facility] Automated lymphocyte count a s percentage of total leukocytesOrdered By: Alfonso Clement on 11-17-2024 Lymphocytes/100 WBC Auto (Unsp spec) 3.7 % Low 19-41 [facility] BUN/creatinine ratioOrdered By: Alfonso Clement on 11-17-2024 Urea nitrogen/Creatinine [Mass ratio] 10.7 mg/mg 10- [facility] Basic Metabolic Profile (BMP )on 11-17-2024 BUN/CRE 10.7 RATIO Normal 10- [facility] Comment on above: Performed By: #### L 500.3600 #### [facility] [address] [place], [address] Calcium [Mass/Vol] 9.6 mg/dL Normal 7.6-11.0 [facility] Comment on above: Performed By: #### L 500.3600 #### [facility] [address] [place], [address] Chloride [Moles/Vol] 106 mmol/L Normal 98-108 [facility] Comment on above: Performed By: #### L 500.3600 #### [facility] [address] [place], [address] CO2 [Moles/Vol] 21.4 mmol/L Normal 21.0-32.0 [facility] Comment on above: Performed By: #### L 500.3600 #### [facility] [address] [place], [address] Creatinine [Mass/Vol] 1.49 mg/dL High 0.70-1.20 [facility] Comment on above: Performed By: #### L 500.3600 #### [facility] [address] [place], [address] ECRCL 40.92 ml/min Low 50-250 [facility] Comment on above: Performed By: #### L 500.3600 #### [facility] [address] [place], [address] GAP 10 Normal 5-15 [facility] Comment on above: Performed By: #### L 500.3600 #### [facility] [address] [place], [address] GFR/1.73 sq M.predicted among non-blacks MDRD (S/P/Bld) [Vol rate/Area] 40 mL/min/{1.73_m2} Low >60 [facility] Comment on above: Result Comment: mL/m in/1.73m2 CKD-EPI Creatinine Equation (2020) Performed By: #### L 500.3600 #### [facility] [address] [place], [address] Glucose [Mass/Vol] 147 mg/dL High 70-99 [facility] Comment on above: Performed By: #### L 500.3600 #### [facility] [address] [place], [address] Potassium [Moles/Vol] 4.5 mmol/L Normal 3.3-5.1 [facility] Comment on above: Performed By: #### L 500.3600 #### [facility] [address] [place], [address] Sodium [Moles/Vol] 138 mmol/L Normal 133-145 [facility] Comment on above: Performed By: #### L 500.3600 #### [facility] [address] [place], [address] Urea nitrogen [Mass/Vol] 16 mg/dL Normal 4-19 [facility] Comment on above: Performed By: #### L 500.3600 #### [facility] [address] [place], [address] Basophil percentageOrdered B y: Alfonso Clement on 11-17-2024 Basophils/100 WBC (Bld) 0.4 % 0-1 [facility] Bilirubin Test strip Ql (U)O rdered By: Alfonso Clement on 11-17-2024 Bilirubin Ql (U) Negative Negative [facility] Blood cultureOrdered By: Claudia Clement on 11-17-2024 Bacteria identified Cx Nom (Bld) No growth in 5 days. [facility] Bacteria identified Cx Nom (Bld) No growth in 5 days. [facility] CBC W/Diff, Automatedon -06 09-2024 Absolute Lymph 0.73 X10 3/uL Low 0.83-4.51 [facility] Comment on above: Performed By: #### L 500.3600 #### [facility] [address] [place], [address] Absolute Neut 17.3 X10 3/uL High 2.0-7.7 [facility] Comment on above: Performed By: #### L 500.3600 #### [facility] [address] [place], [address] Basophils/100 WBC (Bld) 0.4 % Normal 0-1 [facility] Comment on above: Performed By: #### L 500.3600 #### [facility] [address] [place], [address] Eosinophils/100 WBC (Bld) 0.2 % Normal 0-5 [facility] Comment on above: Performed By: #### L 500.3600 #### [facility] [address] [place], [address] Erythrocyte distribution width (RBC) [Ratio] 13.1 % Normal 11.6-14.6 [facility] Comment on above: Performed By: #### L 500.3600 #### [facility] [address] [place], [address] Hematocrit (Bld) [Volume fraction] 38.2 % Normal 37-47 [facility] Comment on above: Performed By: #### L 500.3600 #### [facility] [address] [place], [address] Hemoglobin (Bld) [Mass/Vol] 12.3 g/dL Normal 12.0-15.0 [facility] Comment on above: Performed By: #### L 500.3600 #### [facility] [address] [place], [address] IG% 0.700 Normal 0.0-0.9 [facility] Comment on above: Result Comment: IG% - Immature Granulocytes (promyelocytes, myelocytes and metamyelocytes) > 1% indicates that a LEFT SHIFT is Present. Performed By: #### L 500.3600 #### [facility] [address] [place], [address] Lymphocytes/100 WBC (Bld) 3.7 % Low 19-41 [facility] Comment on above: Performed By: #### L 500.3600 #### [facility] [address] [place], [address] MCH (RBC) [Entitic mass] 29.9 pg Normal 27.0-32.0 [facility] Comment on above: Performed By: #### L 500.3600 #### [facility] [address] [place], [address] MCHC (RBC) [Mass/Vol] 32.2 g/dL Normal 32-36 [facility] Comment on above: Performed By: #### L 500.3600 #### [facility] [address] [place], [address] MCV (RBC) [Entitic vol] 92.7 fL Normal 81-99 [facility] Comment on above: Performed By: #### L 500.3600 #### [facility] [address] [place], [address] Monocytes/100 WBC (Bld) 7.6 % Normal 0-10 [facility] Comment on above: Performed By: #### L 500.3600 #### [facility] [address] [place], [address] Neutrophils/100 WBC (Bld) 87.4 % High 47-70 [facility] Comment on above: Performed By: #### L 500.3600 #### [facility] [address] [place], [address] Nucleated RBC (Bld) [#/Vol] 0 10*3/uL Normal 0-5 [facility] Comment on above: Performed By: #### L 500.3600 #### [facility] [address] [place], [address] Platelet mean volume (Bld) [Entitic vol] 9.8 fL Normal 6.2-12.0 [facility] Comment on above: Performed By: #### L 500.3600 #### [facility] [address] [place], [address] Platelets (Bld) [#/Vol] 277 10*3/uL Normal 150-450 [facility] Comment on above: Performed By: #### L 500.3600 #### [facility] [address] [place], [address] RBC (Bld) [#/Vol] 4.12 10*6/uL Low 4.2-5.4 [facility] Comment on above: Performed By: #### L 500.3600 #### [facility] [address] [place], [address] RDW SD 44.8 fl High 35.1-43.9 [facility] Comment on above: Performed By: #### L 500.3600 #### [facility] [address] [place], [address] WBC (Bld) [#/Vol] 19.8 10*3/uL High 4.4-11.0 [facility] Comment on above: Performed By: #### L 500.3600 #### [facility] [address] [place], [address] Carbon dioxide, total [Moles /volume] in Central venous bloodOrdered By: Alfonso Clement on 11-17-2024 CO2 [Moles/Vol] 21.4 mmol/L 21.0-32.0 [facility] Chest PA and Lateralon 11-17 Chest PA and Lateral [facility] Imaging Services [address] [place] [address] Chest PA and Lateral MR#: [id number] Acct: [id number] Name: CATE FOX Rep #: [id number] : 1960 F 63 From: David Wilson DO PCP: Dr. Carson Russell MD Status: [facility] ER Study: Chest PA and Lateral Date of Exam: 11/17/24 Exam# [id number] Ordering Dr: Alfonso Clement MD PROCEDURE: CHEST PA AND LATERAL 11/17/2024 REASON FOR EXAM: COUGH, SHORTNESS OF BREATH TECHNIQUE: CHEST PA AND LATERAL COMPARISON: February 17, 2022 FINDINGS: Hardware: Surgical clips centered around the midline in right left of midline in the upper abdomen Heart: Normal size Mediastinum: Normal contour Lungs: Clear Bones: No aggressive bone lesion is appreciated. Lungs are clear. RAD/Chest PA and Lateral IMPRESSION: No acute process. Reading Location: [facility] CC: Dr. Alfonso Clement MD; Dr. 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 Carson Russell MD Status:REG ER Location: ED HPI History of Present Illness Chief Complaint: Cough Narrative Narrative: 63-year-old female presents with her because of cough, headache, generalized weakness that she has had for 6 days. She states it started more as an upper respiratory infection and sinus problem. She states that she developed a headache 5 days ago on Tuesday which improved. She felt like she was getting more of a chest cold, and she has been coughing up a watery like substance. Yesterday she began feeling feverish. She denies any exacerbating or alleviating factors but states that she does not feel well with multiple somatic complaints. She has developed diarrhea as well. [facility] Medical History COVID-19 Wears glasses Wears partial dentures Wears [...] renal failure on dialysis Polycystic kidney disease Home Medications ???Medication ???Instructions ???Recorded ???Last Taken ???Type allopurinol 100 mg tablet 100 mg PO MOWEFR gout 09/01/16 History albuterol sulfate 90 mcg/actuation 2 puff inhalation Q6H PRN Wheezi ng 12/27/19 Unknown History aerosol inhaler aspirin 81 mg tablet,delayed 81 mg PO DAILY 07/15/20 11/16/24 H istory release (Adult Aspirin Regimen) magnesium oxide 400 mg PO BID 12/03/21 11/16/24 Hi story tacrolimus 1 mg capsule, 1 mg PO BID 03/25/22 11/17/24 Hist ory immediate-release mycophenolate sodium 180 mg 180 mg PO BID 11/09/22 11/17/24 Hi story tablet,delayed release sulfamethoxazole 800 1 tab PO MOWEFR 05/09/23 11/16/24 History mg-trimethoprim 160 mg tablet cholecalciferol (vitamin D3) 1,250 1,250 mcg PO QWEEK 01/28/2412/28 History mcg (50,000 unit) capsule coenzyme Q10 100 mg capsule 100 mg PO DAILY 01/28/24 11/16/24 History atorvastatin 20 mg tablet 20 mg PO QHS #90 TABLETS 04/27/24 11/16/24 Rx dextromethorphan polistirex 30 20 ml PO Q12H PRN cough 11/17/24 0 11/16/24 History mg/5 mL oral susp ext.release 12hr (Delsym 12 hour) guaifenesin 100 mg/5 mL oral 400 mg PO Q6H PRN cough 11/17/24 0 11/16/24 History liquid (Mucinex Fast-Max Chest Congestion) oxycodone 5 mg tablet 5 mg PO Q6H PRN low back pain 11/04 09/28 Unknown History Allergy/AdvReac Type Severity Reaction Status Date / Time cephalexin Allergy Mild rash Verified 11/17/24 07:12 codeine AdvReac Nausea Verified 11/17/24 07:12 Family History Father Aneurysm Kidney disease Surgical History Hx of colonoscopy Hx of surgical procedure Hx of kidney transplant History of knee replacement procedure of left knee ( 07/2022) Renal transplant recipient (09/11/20) History of left heart catheterization (06/30/20) History of cholecystectomy History of right nephrectomy History of left nephrectomy History of s/p port placement Social History Smoking Status: Never smoker alcohol intake: never substance use type: does not use caffeine: Yes what type of physical activity do you participate in: none seatbelt use: always do you feel safe at home: Yes additional social history: Ojsmllu-Dhbrtc-Vyvyk Nikoe ROS ROS ED ROS Narrative Review of systems positive for cough, productive of clear sputum, subjective fever. Mild generalized weakness, feeling lightheaded as well. Positive diarrhea. No exacerbating or alleviati ng factors. No abdominal pain. No chest pain. EXAM Physical Exam Narrative Exam Narrative: Afebrile. Vital signs noted. Nontoxic-appearing. Cardiovascular examination of is a regular rate and rhythm. Lungs are clear to auscultation bilaterally. Abdomen soft and nontender with normoactive bowel sounds. No guarding or rebound. Neurological examination nonfocal nonlateralizing. HEENT examination does show mild nasal co (more content not included)... Normal [facility] Eosinophil percentageOrdered By: Alfonso Clement on 11-17-2024 Eosinophils/100 WBC (Bld) 0.2 % 0-5 [facility] Erythrocyte distribution wid th ratioOrdered By: Alfonso Clement on 11-17-2024 Erythrocyte distribution width (RBC) [Ratio] 13.1 % 11.6-14.6 [facility] Erythrocyte distribution wid th standard deviationOrdered By: Alfonso Clement on 11-17-2024 Erythrocyte distribution width (RBC) [Ratio] 44.8 fl High 35.1-43.9 [facility] Glomerular filtration rate ( GFR) estimation/1.73 sq m using serum, plasma, or whole bOrdered By: Alfonso Clement on 11-17-2024 GFR/1.73 sq M.predicted among non-blacks MDRD (S/P/Bld) [Vol rate/Area] 40 mL/min/{1.73_m2} Low >60 [facility] Comment on above: mL/min/1.73m2 CKD-EP I Creatinine Equation (2020) Hematocrit Auto (Bld) [Volum e fraction]Ordered By: Alfonso Clement on 11-17-2024 Hematocrit (Bld) [Volume fraction] 38.2 % 37-47 [facility] Hemoglobin measurementOrdere d By: Alfonso Clement on 11-17-2024 Hemoglobin (Bld) [Mass/Vol] 12.3 g/dL 12.0-15.0 [facility] Immature granulocytes/100 WB C Auto (Bld)Ordered By: Alfonso Clement on 11-17-2024 Immature granulocytes/100 WBC (Bld) 0.700 % 0.0-0.9 [facility] Comment on above: IG% - Immature Granu locytes (promyelocytes, myelocytes and metamyelocytes) > 1% indicates that a LEFT SHIFT is Present. Influenza virus A and B and SARS-CoV-2 (COVID-19) and Respiratory syncytial virus RNAOrdered By: Alfonso Clement on 11-17-2024 SARS-CoV-2 (COVID-19) RNA NORA+probe Ql (Unsp spec) [facility] Ketones Test strip Ql (U)Ord ered By: Alfonso Clement on 11-17-2024 Ketones Ql (U) Negative Negative [facility] Lactic Acidon 11-17-2024 Lactate [Moles/Vol] 1.3 mmol/L Normal 0.0-2.0 [facility] Comment on above: Order Comment: ALICE Clark SAID -MINUS THE CALCIUM. MAGALYS SAID SHE WOULD CREDIT THE CALCIUM. I TRIED CALLING BACK. THEY WERE ALL IN MEETINGS --DR. MARIE CALLED PT WITH ANOTHER ORDER (RENAL) WE CAN ADD THIS TO BMP, PLUS ALB AND PHOS. Performed By: #### L 3380.1000, L501.1800, L500.2500, L100.0500, L501.0900, L501.2300 #### [facility] [address] [place], [place], [id number] Lactic acid measurementOrder ed By: Alfonso Clement on 11-17-2024 Lactate [Moles/Vol] 1.3 mmol/L 0.0-2.0 [facility] M100.678on 11-17-2024 M100.678 Pending SARS-CoV-2 (COVID 19) Negative INFLUENZA A Negative INFLUENZA B Negative RSV PCR Negative Normal [facility] Comment on above: Performed By: #### L 3380.1000, L501.1800, L500.2500, L100.0500, L501.0900, L501.2300 #### [facility] [address] [place], [address] MCV (mean corpuscular volume ) determinationOrdered By: Alfonso Clement on 11-17-2024 MCV (RBC) [Entitic vol] 92.7 fL 81-99 [facility] Mean corpuscular hemoglobin (MCH) determinationOrdered By: Alfonso Clement on 11-17-2024 MCH (RBC) [Entitic mass] 29.9 pg 27.0-32.0 [facility] Mean corpuscular hemoglobin concentration (MCHC) determinationOrdered By: Alfonso Clement on 11-17-2024 MCHC (RBC) [Mass/Vol] 32.2 g/dL 32-36 [facility] Mean platelet volume determi nationOrdered By: Alfonso Clement on 11-17-2024 Platelet mean volume (Bld) [Entitic vol] 9.8 fL 6.2-12.0 [facility] Microscopic analysis of urin e for red blood cells (RBC)Ordered By: Alfonso Clement on 11-17-2024 Microscopic analysis of urine for red blood cells (RBC) 0 SEEN /hpf 0-5 [facility] Monocyte percentageOrdered B y: Alfonso Clement on 11-17-2024 Monocytes/100 WBC (Bld) 7.6 % 0-10 [facility] Mucus LM Ql (Urine sed)Order ed By: Alfonso Clement on 11-17-2024 Mucus Ql (Urine sed) 0 SEEN /hpf [facility] Neutrophil percentageOrdered By: Alfonso Clement on 11-17-2024 Neutrophils/100 WBC (Bld) 87.4 % High 47-70 [facility] Nitrite Test strip Ql (U)Ord ered By: Alfonso Clement on 11-17-2024 Nitrite Ql (U) Negative Negative [facility] Nucleated red blood cell per centageOrdered By: Alfonso Clement on 11-17-2024 Nucleated RBC/100 WBC (Bld) [Ratio] 0 % 0-5 [facility] Platelet countOrdered By: Xavier Clement on 11-17-2024 Platelets (Bld) [#/Vol] 277 10*3/uL 150-450 [facility] Potassium measurement (mass/ volume)Ordered By: Alfonso Clement on 11-17-2024 Potassium (Unsp spec) [Mass/Vol] 4.5 mmol/L 3.3-5.1 [facility] Protein Test strip Ql (U)Ord ered By: Alfonso Clement on 11-17-2024 Protein Ql (U) 15 mg/dl High Negative [facility] RBC Auto (Bld) [#/Vol]Ordere d By: Alfonso Clement on 11-17-2024 RBC (Bld) [#/Vol] 4.12 10*6/uL Low 4.2-5.4 [facility] Serum creatinine measurement (mass/volume)Ordered By: Alfonso Clement on 11-17-2024 Creatinine [Mass/Vol] 1.49 mg/dL High 0.70-1.20 [facility] Serum glucose measurement (m ass/volume)Ordered By: Alfonso Clement on 11-17-2024 Glucose [Mass/Vol] 147 mg/dL High 70-99 [facility] Serum or plasma calcium osei urement (mass/volume)Ordered By: Alfonso Clement on 11-17-2024 Calcium [Mass/Vol] 9.6 mg/dL 7.6-11.0 [facility] Serum or plasma urea nitroge n measurement (mass/volume)Ordered By: Alfonso Clement on 11-17-2024 Urea nitrogen [Mass/Vol] 16 mg/dL 4-19 [facility] Sodium levelOrdered By: Alfonso Clement on 11-17-2024 Sodium [Moles/Vol] 138 mmol/L 133-145 [facility] Squamous epithelial cells de tection in urine sediment by light microscopyOrdered By: Alfonso Clement on 11-17-2024 Epithelial cells.squamous LM Ql (Urine sed) 0-5 SEEN /hpf 5-10 [facility] Urinalysis, Completeon 11-17 AMORPHOUS 1+ Normal [facility] Comment on above: Order Comment: ALICE Clark SAID -MINUS THE CALCIUM. MAGALYS SAID SHE WOULD CREDIT THE CALCIUM. I TRIED CALLING BACK. THEY WERE ALL IN MEETINGS --DR. MARIE CALLED PT WITH ANOTHER ORDER (RENAL) WE CAN ADD THIS TO BMP, PLUS ALB AND PHOS. Performed By: #### L 0080.1000, L501.1800, L500.2500, L100.0500, L501.0900, L501.2300 #### [facility] [address] [place], [address] EPI,SQUAMOUS 0-5 SEEN Normal 5-10 [facility] Comment on above: Order Comment: ALICE Clark SAID -MINUS THE CALCIUM. MAGALYS SAID SHE WOULD CREDIT THE CALCIUM. I TRIED CALLING BACK. THEY WERE ALL IN MEETINGS --DR. MARIE CALLED PT WITH ANOTHER ORDER (RENAL) WE CAN ADD THIS TO BMP, PLUS ALB AND PHOS. Performed By: #### L 3380.1000, L501.1800, L500.2500, L100.0500, L501.0900, L501.2300 #### [facility] [address] [place], [address] BACTERIA 0 SEEN Normal None Seen [facility] Comment on above: Order Comment: ALICE Clark SAID -MINUS THE CALCIUM. MAGALYS SAID SHE WOULD CREDIT THE CALCIUM. I TRIED CALLING BACK. THEY WERE ALL IN MEETINGS --DR. MARIE CALLED PT WITH ANOTHER ORDER (RENAL) WE CAN ADD THIS TO BMP, PLUS ALB AND PHOS. Performed By: #### L 3380.1000, L501.1800, L500.2500, L100.0500, L501.0900, L501.2300 #### [facility] [address] [place], [address] Mucus Ql (Urine sed) 0 SEEN Normal [facility] Comment on above: Order Comment: ALICE Clark SAID -MINUS THE CALCIUM. MAGALYS SAID SHE WOULD CREDIT THE CALCIUM. I TRIED CALLING BACK. THEY WERE ALL IN MEETINGS --DR. MARIE CALLED PT WITH ANOTHER ORDER (RENAL) WE CAN ADD THIS TO BMP, PLUS ALB AND PHOS. Performed By: #### L 3380.1000, L501.1800, L500.2500, L100.0500, L501.0900, L501.2300 #### [facility] [address] [place], [place], [id number] RBC 0 SEEN Normal 0-5 [facility] Comment on above: Order Comment: ALICE Clark SAID -MINUS THE CALCIUM. MAGALYS SAID SHE WOULD CREDIT THE CALCIUM. I TRIED CALLING BACK. THEY WERE ALL IN MEETINGS --DR. MARIE CALLED PT WITH ANOTHER ORDER (RENAL) WE CAN ADD THIS TO BMP, PLUS ALB AND PHOS. Performed By: #### L 3380.1000, L501.1800, L500.2500, L100.0500, L501.0900, L501.2300 #### [facility] [address] [place], [address] WBC 0 SEEN Normal 0-5 [facility] Comment on above: Order Comment: ALICE Clark SAID -MINUS THE CALCIUM. MAGALYS SAID SHE WOULD CREDIT THE CALCIUM. I TRIED CALLING BACK. THEY WERE ALL IN MEETINGS --DR. MARIE CALLED PT WITH ANOTHER ORDER (RENAL) WE CAN ADD THIS TO BMP, PLUS ALB AND PHOS. Performed By: #### L 3380.1000, L501.1800, L500.2500, L100.0500, L501.0900, L501.2300 #### [facility] [address] [place], [place], [id number] Urine clarityOrdered By: Claudia Clement on 11-17-2024 Clarity (U) Sl. Cloudy Clear [facility] Urine color determinationOrd ered By: Alfonso Clement on 11-17-2024 Color (U) Yellow Yellow [facility] Urine glucose detectionOrder ed By: Alfonso Clement on 11-17-2024 Glucose Ql (U) Normal mg/dl Normal [facility] Urine leukocyte esterase det ection by dipstickOrdered By: Alfonso Clement on 11-17-2024 Leukocyte esterase Test strip Ql (U) 25 /ul High Negative [facility] Urine pHOrdered By: Alfonso flores on 11-17-2024 pH (U) 8.0 [pH] 5.0 - 8.0 [facility] Urine sediment bacteria coun t by microscopy (number/high power field)Ordered By: Alfonso Clement on 11-17-2024 Bacteria LM.HPF (Urine sed) [#/Area] 0 /[HPF] None Seen [facility] Urine specific gravity measu rementOrdered By: Alfonso Urbano on 11-17-2024 Specific gravity (U) [Rel density] 1.015 1.002-1.03 0 [facility] Urine urobilinogen measureme ntOrdered By: Alfonso Clement on 11-17-2024 Urobilinogen Ql (U) Normal mg/dl Normal [facility] White blood cell (WBC) count Ordered By: Alfonso Clement on 11-17-2024 WBC (Bld) [#/Vol] 19.8 10*3/uL High 4.4-11.0 [facility] White blood cell countOrdere d By: Alfonso Clement on 11-17-2024 White blood cell count 0 SEEN /hpf 0-5 [facility] Tacrolimus (Prograf)on 10-30 Tacrolimus (Bld) [Mass/Vol] 4.9 ng/mL Low 5.0-20.0 [facility] Comment on above: Order Comment: Test( s) [id number] (FK506), Bloodwas developed and its performance characteristicsdetermined by [employer]. It has not been cleared or approvedby [...] ng/mL Performed by LC-MS/MS technology. Performed at: [address] [id number] [employer] Winder: Amaury Dubois MD, Phone: [phone] Performed By: #### L 3380.1000, L501.1800, L500.2500, L100.0500, L501.0900, L501.2300 #### [facility] [address] [place], [address] Anion gap in Serum or Plasma on 10-25-2024 Anion gap [Moles/Vol] 11 mmol/L 10-18 [facility] BUN/creatinine ratioon 10-25 Urea nitrogen/Creatinine [Mass ratio] 11.0 mg/mg 03-25 [facility] Basic Metabolic Profile (BMP )on 10-25-2024 BUN/CRE 11.0 RATIO Normal 03-25 [facility] Comment on above: Performed By: #### L 500.3600 #### [facility] [address] [place], [address] Calcium [Mass/Vol] 9.9 mg/dL Normal 7.6-11.0 [facility] Comment on above: Performed By: #### L 500.3600 #### [facility] [address] [place], [address] Chloride [Moles/Vol] 106 mmol/L Normal 98-108 [facility] Comment on above: Performed By: #### L 500.3600 #### [facility] [address] [place], [address] CO2 [Moles/Vol] 20.2 mmol/L Low 21.0-32.0 [facility] Comment on above: Performed By: #### L 500.3600 #### [facility] [address] [place], [address] Creatinine [Mass/Vol] 1.48 mg/dL High 0.70-1.20 [facility] Comment on above: Performed By: #### L 500.3600 #### [facility] [address] [place], [address] GAP 11 Normal 10-18 [facility] Comment on above: Performed By: #### L 500.3600 #### [facility] [address] [place], [address] GFR/1.73 sq M.predicted among non-blacks MDRD (S/P/Bld) [Vol rate/Area] 40 mL/min/{1.73_m2} Low >60 [facility] Comment on above: Result Comment: mL/m in/1.73m2 CKD-EPI Creatinine Equation (2020) Performed By: #### L 500.3600 #### [facility] [address] [place], [address] Glucose [Mass/Vol] 109 mg/dL High 70-99 [facility] Comment on above: Performed By: #### L 500.3600 #### [facility] [address] [place], [address] Potassium [Moles/Vol] 4.4 mmol/L Normal 3.3-5.1 [facility] Comment on above: Performed By: #### L 500.3600 #### [facility] [address] [place], [address] Sodium [Moles/Vol] 137 mmol/L Normal 133-145 [facility] Comment on above: Performed By: #### L 500.3600 #### [facility] [address] [place], [address] Urea nitrogen [Mass/Vol] 16 mg/dL Normal 4-19 [facility] Comment on above: Performed By: #### L 500.3600 #### [facility] [address] [place], [address] Carbon dioxide, total [Moles /volume] in Central venous bloodon 10-25-2024 CO2 [Moles/Vol] 20.2 mmol/L Low 21.0-32.0 [facility] Chloride assayon 10-25-2024 Chloride [Moles/Vol] 106 mmol/L 98-108 [facility] Glomerular filtration rate ( GFR) estimation/1.73 sq m using serum, plasma, or whole bon 10-25-2024 GFR/1.73 sq M.predicted among non-blacks MDRD (S/P/Bld) [Vol rate/Area] 40 mL/min/{1.73_m2} Low >60 [facility] Comment on above: mL/min/1.73m2 CKD-EP I Creatinine Equation (2020) Potassium measurement (mass/ volume)on 10-25-2024 Potassium (Unsp spec) [Mass/Vol] 4.4 mmol/L 3.3-5.1 [facility] Serum creatinine measurement (mass/volume)on 10-25-2024 Creatinine [Mass/Vol] 1.48 mg/dL High 0.70-1.20 [facility] Serum glucose measurement (m ass/volume)on 10-25-2024 Glucose [Mass/Vol] 109 mg/dL High 70-99 [facility] Serum or plasma calcium osei urement (mass/volume)on 10-25-2024 Calcium [Mass/Vol] 9.9 mg/dL 7.6-11.0 [facility] Serum or plasma urea nitroge n measurement (mass/volume)on 10-25-2024 Urea nitrogen [Mass/Vol] 16 mg/dL 4-19 [facility] Sodium levelon 10-25-2024 Sodium [Moles/Vol] 137 mmol/L 133-145 [facility] Tacrolimus (Prograf)on 10-19 Tacrolimus (Bld) [Mass/Vol] 8.4 ng/mL Normal 5.0-20.0 [facility] Comment on above: Order Comment: Test( s) [id number] ([id number]), Blood was developed and its performance characteristics determined by [facility]. It has not been cleared or approved [...] ng/mL Performed by LC-MS/MS technology. Performed at: [address] [id number] [employer]: Amaury Dubois MD, Phone: [phone] Performed By: #### L 3380.1000, L501.1800, L500.2500, L100.0500, L501.0900, L501.2300 #### [facility] [address] [place], [address] Albumin, Serumon 10-16-2024 Albumin [Mass/Vol] 4.0 g/dL Normal 3.4-4.8 [facility] Comment on above: Order Comment: ALICE Clark SAID -MINUS THE CALCIUM. MAGALYS SAID SHE WOULD CREDIT THE CALCIUM. I TRIED CALLING BACK. THEY WERE ALL IN MEETINGS --DR. MARIE CALLED PT WITH ANOTHER ORDER (RENAL) WE CAN ADD THIS TO BMP, PLUS ALB AND PHOS. Performed By: #### L 3380.1000, L501.1800, L500.2500, L100.0500, L501.0900, L501.2300 #### [facility] [address] [place], [address] Anion gap in Serum or Plasma on 10-16-2024 Anion gap [Moles/Vol] 11 mmol/L - [facility] BUN/creatinine ratioon 10-16 Urea nitrogen/Creatinine [Mass ratio] 13.8 mg/mg - [facility] Basic Metabolic Profile (BMP )on 10-16-2024 BUN/CRE 13.8 RATIO Normal - [facility] Comment on above: Order Comment: ALICE Clark SAID -MINUS THE CALCIUM. MAGALYS SAID SHE WOULD CREDIT THE CALCIUM. I TRIED CALLING BACK. THEY WERE ALL IN MEETINGS Performed By: #### L 3380.1000, L501.1800, L500.2500, L100.0500, L501.0900, L501.2300 #### [facility] [address] [place], [address] Calcium [Mass/Vol] 10.9 mg/dL Normal 7.6-11.0 [facility] Comment on above: Order Comment: ALICE Clark SAID -MINUS THE CALCIUM. MAGALYS SAID SHE WOULD CREDIT THE CALCIUM. I TRIED CALLING BACK. THEY WERE ALL IN MEETINGS Performed By: #### L 3380.1000, L501.1800, L500.2500, L100.0500, L501.0900, L501.2300 #### [facility] [address] [place], [address] Chloride [Moles/Vol] 108 mmol/L Normal 98-108 [facility] Comment on above: Order Comment: ALICE Clark SAID -MINUS THE CALCIUM. MAGALYS SAID SHE WOULD CREDIT THE CALCIUM. I TRIED CALLING BACK. THEY WERE ALL IN MEETINGS Performed By: #### L 3380.1000, L501.1800, L500.2500, L100.0500, L501.0900, L501.2300 #### [facility] [address] [place], [address] CO2 [Moles/Vol] 22.1 mmol/L Normal 21.0-32.0 [facility] Comment on above: Order Comment: ALICE Clark SAID -MINUS THE CALCIUM. MAGALYS SAID SHE WOULD CREDIT THE CALCIUM. I TRIED CALLING BACK. THEY WERE ALL IN MEETINGS Performed By: #### L 3380.1000, L501.1800, L500.2500, L100.0500, L501.0900, L501.2300 #### [facility] [address] [place], [address] Creatinine [Mass/Vol] 1.70 mg/dL High 0.70-1.20 [facility] Comment on above: Order Comment: ALICE Clark SAID -MINUS THE CALCIUM. MAGALYS SAID SHE WOULD CREDIT THE CALCIUM. I TRIED CALLING BACK. THEY WERE ALL IN MEETINGS Performed By: #### L 3380.1000, L501.1800, L500.2500, L100.0500, L501.0900, L501.2300 #### [facility] [address] [place], [address] GAP 11 Normal 5-15 [facility] Comment on above: Order Comment: ALICE Clark SAID -MINUS THE CALCIUM. MAGALYS SAID SHE WOULD CREDIT THE CALCIUM. I TRIED CALLING BACK. THEY WERE ALL IN MEETINGS Performed By: #### L 3380.1000, L501.1800, L500.2500, L100.0500, L501.0900, L501.2300 #### [facility] [address] [place], [address] GFR/1.73 sq M.predicted among non-blacks MDRD (S/P/Bld) [Vol rate/Area] 34 mL/min/{1.73_m2} Low >60 [facility] Comment on above: Order Comment: ALICE Clark SAID -MINUS THE CALCIUM. MAGALYS SAID SHE WOULD CREDIT THE CALCIUM. I TRIED CALLING BACK. THEY WERE ALL IN MEETINGS Result Comment: mL/m in/1.73m2 CKD-EPI Creatinine Equation (2020) Performed By: #### L 3380.1000, L501.1800, L500.2500, L100.0500, L501.0900, L501.2300 #### [facility] [address] [place], [address] Glucose [Mass/Vol] 117 mg/dL High 70-99 [facility] Comment on above: Order Comment: ALICE Clark SAID -MINUS THE CALCIUM. MAGALYS SAID SHE WOULD CREDIT THE CALCIUM. I TRIED CALLING BACK. THEY WERE ALL IN MEETINGS Performed By: #### L 3380.1000, L501.1800, L500.2500, L100.0500, L501.0900, L501.2300 #### [facility] [address] [place], [address] Potassium [Moles/Vol] 4.4 mmol/L Normal 3.3-5.1 [facility] Comment on above: Order Comment: ALICE Clark SAID -MINUS THE CALCIUM. MAGALYS SAID SHE WOULD CREDIT THE CALCIUM. I TRIED CALLING BACK. THEY WERE ALL IN MEETINGS Performed By: #### L 3380.1000, L501.1800, L500.2500, L100.0500, L501.0900, L501.2300 #### [facility] [address] [place], [address] Sodium [Moles/Vol] 141 mmol/L Normal 133-145 [facility] Comment on above: Order Comment: ALICE Clark SAID -MINUS THE CALCIUM. MAGALYS SAID SHE WOULD CREDIT THE CALCIUM. I TRIED CALLING BACK. THEY WERE ALL IN MEETINGS Performed By: #### L 3380.1000, L501.1800, L500.2500, L100.0500, L501.0900, L501.2300 #### [facility] [address] [place], [address] Urea nitrogen [Mass/Vol] 23 mg/dL High 4-19 [facility] Comment on above: Order Comment: ALICE Clark SAID -MINUS THE CALCIUM. MAGALYS SAID SHE WOULD CREDIT THE CALCIUM. I TRIED CALLING BACK. THEY WERE ALL IN MEETINGS Performed By: #### L 3380.1000, L501.1800, L500.2500, L100.0500, L501.0900, L501.2300 #### [facility] [address] [place], [address] CBC-Complete Blood Cnt No Di ffon 10-16-2024 Erythrocyte distribution width (RBC) [Ratio] 12.7 % Normal 11.6-14.6 [facility] Comment on above: Performed By: #### L 3380.1000, L501.1800, L500.2500, L100.0500, L501.0900, L501.2300 #### [facility] [address] [place], [address] Hematocrit (Bld) [Volume fraction] 40.2 % Normal 37-47 [facility] Comment on above: Performed By: #### L 3380.1000, L501.1800, L500.2500, L100.0500, L501.0900, L501.2300 #### [facility] [address] [place], [address] Hemoglobin (Bld) [Mass/Vol] 13.0 g/dL Normal 12.0-15.0 [facility] Comment on above: Performed By: #### L 3380.1000, L501.1800, L500.2500, L100.0500, L501.0900, L501.2300 #### [facility] [address] [place], [address] MCH (RBC) [Entitic mass] 29.8 pg Normal 27.0-32.0 [facility] Comment on above: Performed By: #### L 3380.1000, L501.1800, L500.2500, L100.0500, L501.0900, L501.2300 #### [facility] [address] [place], [address] MCHC (RBC) [Mass/Vol] 32.3 g/dL Normal 32-36 [facility] Comment on above: Performed By: #### L 3380.1000, L501.1800, L500.2500, L100.0500, L501.0900, L501.2300 #### [facility] [address] [place], [address] MCV (RBC) [Entitic vol] 92.2 fL Normal 81-99 [facility] Comment on above: Performed By: #### L 3380.1000, L501.1800, L500.2500, L100.0500, L501.0900, L501.2300 #### [facility] [address] [place], [address] Platelet mean volume (Bld) [Entitic vol] 10.4 fL Normal 6.2-12.0 [facility] Comment on above: Performed By: #### L 3380.1000, L501.1800, L500.2500, L100.0500, L501.0900, L501.2300 #### [facility] [address] [place], [address] Platelets (Bld) [#/Vol] 289 10*3/uL Normal 150-450 [facility] Comment on above: Performed By: #### L 3380.1000, L501.1800, L500.2500, L100.0500, L501.0900, L501.2300 #### [facility] [address] [place], [address] RBC (Bld) [#/Vol] 4.36 10*6/uL Normal 4.2-5.4 [facility] Comment on above: Performed By: #### L 3380.1000, L501.1800, L500.2500, L100.0500, L501.0900, L501.2300 #### [facility] [address] [place], [address] RDW SD 42.7 fl Normal 35.1-43.9 [facility] Comment on above: Performed By: #### L 3380.1000, L501.1800, L500.2500, L100.0500, L501.0900, L501.2300 #### [facility] [address] [place], [address] WBC (Bld) [#/Vol] 6.6 10*3/uL Normal 4.4-11.0 [facility] Comment on above: Performed By: #### L 3380.1000, L501.1800, L500.2500, L100.0500, L501.0900, L501.2300 #### [facility] [address] [place], [address] Carbon dioxide, total [Moles /volume] in Central venous bloodon 10-16-2024 CO2 [Moles/Vol] 22.1 mmol/L 21.0-32.0 [facility] Chloride assayon 10-16-2024 Chloride [Moles/Vol] 108 mmol/L 98-108 [facility] Erythrocyte distribution wid th ratioon 10-16-2024 Erythrocyte distribution width (RBC) [Ratio] 12.7 % 11.6-14.6 [facility] Erythrocyte distribution wid th standard deviationon 10-16-2024 Erythrocyte distribution width (RBC) [Ratio] 42.7 fl 35.1-43.9 [facility] Glomerular filtration rate ( GFR) estimation/1.73 sq m using serum, plasma, or whole bon 10-16-2024 GFR/1.73 sq M.predicted among non-blacks MDRD (S/P/Bld) [Vol rate/Area] 34 mL/min/{1.73_m2} Low >60 [facility] Comment on above: mL/min/1.73m2 CKD-EP I Creatinine Equation (2020) Hematocrit Auto (Bld) [Volum e fraction]on 10-16-2024 Hematocrit (Bld) [Volume fraction] 40.2 % 37-47 [facility] Hemoglobin measurementon Hemoglobin (Bld) [Mass/Vol] 13.0 g/dL 12.0-15.0 [facility] MCV (mean corpuscular volume ) determinationon 10-16-2024 MCV (RBC) [Entitic vol] 92.2 fL 81-99 [facility] Mean corpuscular hemoglobin (MCH) determinationon 10-16-2024 MCH (RBC) [Entitic mass] 29.8 pg 27.0-32.0 [facility] Mean corpuscular hemoglobin concentration (MCHC) determinationon 10-16-2024 MCHC (RBC) [Mass/Vol] 32.3 g/dL 32-36 [facility] Mean platelet volume determi nationon 10-16-2024 Platelet mean volume (Bld) [Entitic vol] 10.4 fL 6.2-12.0 [facility] Phosphoruson 10-16-2024 Phosphate [Mass/Vol] 2.6 mg/dL Low 2.7-4.5 [facility] Comment on above: Order Comment: ALICE Clark SAID -MINUS THE CALCIUM. MAGALYS SAID SHE WOULD CREDIT THE CALCIUM. I TRIED CALLING BACK. THEY WERE ALL IN MEETINGS --DR. MARIE CALLED PT WITH ANOTHER ORDER (RENAL) WE CAN ADD THIS TO BMP, PLUS ALB AND PHOS. Performed By: #### L 3380.1000, L501.1800, L500.2500, L100.0500, L501.0900, L501.2300 #### [facility] [address] [place], [address] Platelet counton 10-16-2024 Platelets (Bld) [#/Vol] 289 10*3/uL 150-450 [facility] Potassium measurement (mass/ volume)on 10-16-2024 Potassium (Unsp spec) [Mass/Vol] 4.4 mmol/L 3.3-5.1 [facility] Protein+Creatinine Ratio,Uri neon 10-16-2024 PROT:CRE RATIO 65 mg/g CRE Normal 0-200 [facility] Comment on above: Performed By: #### L 3380.1000, L501.1800, L500.2500, L100.0500, L501.0900, L501.2300 #### [facility] [address] [facility] [place], [address] Protein (U) [Mass/Vol] 11.1 mg/dL Normal 0.0-12.0 [facility] Comment on above: Performed By: #### L 3380.1000, L501.1800, L500.2500, L100.0500, L501.0900, L501.2300 #### [facility] [address] [place], [address] UR CREAT 171.00 mg/dL Normal 28.00-217. 00 [facility] Comment on above: Performed By: #### L 3380.1000, L501.1800, L500.2500, L100.0500, L501.0900, L501.2300 #### [facility] [address] [place], [address] RBC Auto (Bld) [#/Vol]on RBC (Bld) [#/Vol] 4.36 10*6/uL 4.2-5.4 [facility] Random urine creatinine osei urement (mass/volume)on 10-16-2024 Creatinine Unsp time (U) [Mass/Vol] 171.00 mg/dL 28.00-217. 00 [facility] Renal Profileon 10-16-2024 ALB Normal 3.4-4.8 [facility] Comment on above: Result Comment: CAROLINE NG TO AM DRAW ALREADY DONE PLUS TWO MORE TESTS Performed By: #### L 500.3600 #### [facility] [address] [place], [address] BUN Normal 4-19 [facility] Comment on above: Result Comment: CAROLINE NG TO AM DRAW ALREADY DONE PLUS TWO MORE TESTS Performed By: #### L 500.3600 #### [facility] [address] [place], [address] BUN/CRE Normal 10-20 [facility] Comment on above: Result Comment: CAROLINE NG TO AM DRAW ALREADY DONE PLUS TWO MORE TESTS Performed By: #### L 500.3600 #### [facility] [address] [place], [address] Calcium Normal 7.6-11.0 [facility] Comment on above: Result Comment: CAROLINE NG TO AM DRAW ALREADY DONE PLUS TWO MORE TESTS Performed By: #### L 500.3600 #### [facility] [address] [place], [address] CL Normal 98-108 [facility] Comment on above: Result Comment: CAROLINE NG TO AM DRAW ALREADY DONE PLUS TWO MORE TESTS Performed By: #### L 500.3600 #### [facility] [address] [place], [address] CO2 Normal 21.0-32.0 [facility] Comment on above: Result Comment: CAROLINE NG TO AM DRAW ALREADY DONE PLUS TWO MORE TESTS Performed By: #### L 500.3600 #### [facility] [address] [place], [address] CREAT,SERUM Normal 0.70-1.20 [facility] Comment on above: Result Comment: CAROLINE NG TO AM DRAW ALREADY DONE PLUS TWO MORE TESTS Performed By: #### L 500.3600 #### [facility] [address] [place], [address] eGFR Normal >60 [facility] Comment on above: Result Comment: CAROLINE NG TO AM DRAW ALREADY DONE PLUS TWO MORE TESTS Performed By: #### L 500.3600 #### [facility] [address] [place], [address] GAP Normal 5-15 [facility] Comment on above: Result Comment: CAROLINE NG TO AM DRAW ALREADY DONE PLUS TWO MORE TESTS Performed By: #### L 500.3600 #### [facility] [address] [place], [address] GLU Normal 70-99 [facility] Comment on above: Result Comment: CAROLINE NG TO AM DRAW ALREADY DONE PLUS TWO MORE TESTS Performed By: #### L 500.3600 #### [facility] [address] [place], [address] PHOS Normal 2.7-4.5 [facility] Comment on above: Result Comment: CAROLINE NG TO AM DRAW ALREADY DONE PLUS TWO MORE TESTS Performed By: #### L 500.3600 #### [facility] [address] [place], [address] Potassium Normal 3.3-5.1 [facility] Comment on above: Result Comment: CAROLINE NG TO AM DRAW ALREADY DONE PLUS TWO MORE TESTS Performed By: #### L 500.3600 #### [facility] [address] [place], [address] Renal Profile Normal 133-145 [facility] Comment on above: Result Comment: CAROLINE NG TO AM DRAW ALREADY DONE PLUS TWO MORE TESTS Performed By: #### L 500.3600 #### [facility] [address] [place], [address] Serum creatinine measurement (mass/volume)on 10-16-2024 Creatinine [Mass/Vol] 1.70 mg/dL High 0.70-1.20 [facility] Serum glucose measurement (m ass/volume)on 10-16-2024 Glucose [Mass/Vol] 117 mg/dL High 70-99 [facility] Serum or plasma albumin osei urement (mass/volume)on 10-16-2024 Albumin [Mass/Vol] 4.0 g/dL 3.4-4.8 [facility] Serum or plasma calcium osei urement (mass/volume)on 10-16-2024 Calcium [Mass/Vol] 10.9 mg/dL 7.6-11.0 [facility] Serum or plasma urea nitroge n measurement (mass/volume)on 10-16-2024 Urea nitrogen [Mass/Vol] 23 mg/dL High 4-19 [facility] Sodium levelon 10-16-2024 Sodium [Moles/Vol] 141 mmol/L 133-145 [facility] Urine protein measurement (m ass/volume)on 10-16-2024 Protein (U) [Mass/Vol] 11.1 mg/dL 0.0-12.0 [facility] Urine protein/creatinine mas s ratioon 10-16-2024 Protein/Creatinine (U) [Mass ratio] 65 mg/g CRE 0-200 [facility] White blood cell (WBC) count on 10-16-2024 WBC (Bld) [#/Vol] 6.6 10*3/uL 4.4-11.0 [facility] Tacrolimus (Prograf)on 10-15 Tacrolimus (Bld) [Mass/Vol] 8.9 ng/mL Normal 5.0-20.0 [facility] Comment on above: Order Comment: Test( s) [id number] ([id number]), Bloodwas developed and its performance characteristicsdetermined by [employer]. It has not been cleared or approvedby [...] ng/mL Performed by LC-MS/MS technology. Performed at: [facility] [id number] [employer] Winder: Amaury Dubois MD, Phone: [phone] Performed By: #### L 500.0162 #### [facility] [address] [place], [address] Anion gap in Serum or Plasma Ordered By: Natavat Tanphaichitr on 10-11-2024 Anion gap [Moles/Vol] 10 mmol/L 5-15 [facility] BUN/creatinine ratioOrdered By: Natavat Tanphaichitr on 10-11-2024 Urea nitrogen/Creatinine [Mass ratio] 16.9 mg/mg 10-20 [facility] Carbon dioxide, total [Moles /volume] in Central venous bloodOrdered By: Gopalavat Tanphaichitr on 10-11-2024 CO2 [Moles/Vol] 22.9 mmol/L 21.0-32.0 [facility] Chloride assayOrdered By: Na ttalessandra Tanphaichitr on 10-11-2024 Chloride [Moles/Vol] 106 mmol/L 98-108 [facility] Glomerular filtration rate ( GFR) estimation/1.73 sq m using serum, plasma, or whole bOrdered By: Gopalavat Tanphaichitr on 10-11-2024 GFR/1.73 sq M.predicted among non-blacks MDRD (S/P/Bld) [Vol rate/Area] 32 mL/min/{1.73_m2} Low >60 [facility] Comment on above: mL/min/1.73m2 CKD-EP I Creatinine Equation (2020) Potassium measurement (mass/ volume)Ordered By: Natavat Tanphaichitr on 10-11-2024 Potassium (Unsp spec) [Mass/Vol] 4.9 mmol/L 3.3-5.1 [facility] Renal Profileon 10-11-2024 Albumin [Mass/Vol] 4.1 g/dL Normal 3.4-4.8 [facility] Comment on above: Performed By: #### L 3380.1000, L500.3600 #### [facility] [address] [place], [address] BUN/CRE 16.9 RATIO Normal 10-20 [facility] Comment on above: Performed By: #### L 3380.1000, L500.3600 #### [facility] [address] [place], [address] Calcium [Mass/Vol] 10.9 mg/dL Normal 7.6-11.0 [facility] Comment on above: Performed By: #### L 3380.1000, L500.3600 #### [facility] [address] [place], [address] Chloride [Moles/Vol] 106 mmol/L Normal 98-108 [facility] Comment on above: Performed By: #### L 3380.1000, L500.3600 #### [facility] [address] [place], [address] CO2 [Moles/Vol] 22.9 mmol/L Normal 21.0-32.0 [facility] Comment on above: Performed By: #### L 3380.1000, L500.3600 #### [facility] [address] [place], [address] Creatinine [Mass/Vol] 1.77 mg/dL High 0.70-1.20 [facility] Comment on above: Performed By: #### L 3380.1000, L500.3600 #### [facility] [address] [place], [address] GAP 10 Normal 5-15 [facility] Comment on above: Performed By: #### L 3380.1000, L500.3600 #### [facility] [address] [place], [address] GFR/1.73 sq M.predicted among non-blacks MDRD (S/P/Bld) [Vol rate/Area] 32 mL/min/{1.73_m2} Low >60 [facility] Comment on above: Result Comment: mL/m in/1.73m2 CKD-EPI Creatinine Equation (2020) Performed By: #### L 3380.1000, L500.3600 #### [facility] [address] [place], [address] Glucose [Mass/Vol] 110 mg/dL High 70-99 [facility] Comment on above: Performed By: #### L 3380.1000, L500.3600 #### [facility] [address] [place], [address] Phosphate [Mass/Vol] 2.2 mg/dL Low 2.7-4.5 [facility] Comment on above: Performed By: #### L 3380.1000, L500.3600 #### [facility] [address] [place], [address] Potassium [Moles/Vol] 4.9 mmol/L Normal 3.3-5.1 [facility] Comment on above: Performed By: #### L 3380.1000, L500.3600 #### [facility] [address] [place], [address] Sodium [Moles/Vol] 139 mmol/L Normal 133-145 [facility] Comment on above: Performed By: #### L 3380.1000, L500.3600 #### [facility] [address] [place], [address] Urea nitrogen [Mass/Vol] 30 mg/dL High 4-19 [facility] Comment on above: Performed By: #### L 3380.1000, L500.3600 #### [facility] [address] [place], [address] Serum creatinine measurement (mass/volume)Ordered By: Krzysztof Wu on 10-11-2024 Creatinine [Mass/Vol] 1.77 mg/dL High 0.70-1.20 [facility] Serum glucose measurement (m ass/volume)Ordered By: Krzysztof Wu on 10-11-2024 Glucose [Mass/Vol] 110 mg/dL High 70-99 [facility] Serum or plasma albumin osei urement (mass/volume)Ordered By: Gopalericka Damonphaichitr on 10-11-2024 Albumin [Mass/Vol] 4.1 g/dL 3.4-4.8 [facility] Serum or plasma calcium osei urement (mass/volume)Ordered By: [facility] Conradichisasha on 10-11-2024 Calcium [Mass/Vol] 10.9 mg/dL 7.6-11.0 [facility] Serum or plasma urea nitroge n measurement (mass/volume)Ordered By: Gopaleircka Conradbelle[facility] women[facility] hospitalsasha on 10-11-2024 Urea nitrogen [Mass/Vol] 30 mg/dL High 4-19 [facility] Sodium levelOrdered By: Priscila Wu on 10-11-2024 Sodium [Moles/Vol] 139 mmol/L 133-145 [facility] Tacrolimus (Prograf)on 10-06 Tacrolimus (Bld) [Mass/Vol] 8.8 ng/mL Normal 5.0-20.0 [facility] Comment on above: Order Comment: Test( s) [id number] ([id number]), Bloodwas developed and its performance characteristicsdetermined by [facility]. It has not been cleared or approvedby the Food and Drug Administration. Result Comment: Sammy reddy steady state trough concentration for Tacrolimus varies [...] Please note reference interval change Performed at: [address] [id number] [employer]: Amaury Dubois MD, Phone: [phone] Performed By: #### L 3380.1000, L501.1800, L500.2500, L100.0500, L501.0900, L501.2300 #### [facility] [address] [place], [address] Anion gap in Serum or Plasma Ordered By: Natterrenceavatheresa Tanphaichitr on 10-03-2024 Anion gap [Moles/Vol] 12 mmol/L 5-15 [facility] BUN/creatinine ratioOrdered By: Natthavat Tanphaichitr on 10-03-2024 Urea nitrogen/Creatinine [Mass ratio] 16.8 mg/mg 10-20 [facility] Bilirubin, totalOrdered By: N[facility]ild[facility]heresa Tanphaichitr on 10-03-2024 Bilirubin [Mass/Vol] 0.42 mg/dL 0.00-1.30 [facility] CBC-Complete Blood Cnt No Di ffon 10-03-2024 Erythrocyte distribution width (RBC) [Ratio] 12.8 % Normal 11.6-14.6 [facility] Comment on above: Performed By: #### L 3380.1000, L501.1800, L500.2500, L100.0500, L501.0900, L501.2300 #### [facility] [address] [place], [address] Hematocrit (Bld) [Volume fraction] 38.8 % Normal 37-47 [facility] Comment on above: Performed By: #### L 3380.1000, L501.1800, L500.2500, L100.0500, L501.0900, L501.2300 #### [facility] [address] [place], [address] Hemoglobin (Bld) [Mass/Vol] 12.8 g/dL Normal 12.0-15.0 [facility] Comment on above: Performed By: #### L 3380.1000, L501.1800, L500.2500, L100.0500, L501.0900, L501.2300 #### [facility] [address] [place], [address] MCH (RBC) [Entitic mass] 30.3 pg Normal 27.0-32.0 [facility] Comment on above: Performed By: #### L 3380.1000, L501.1800, L500.2500, L100.0500, L501.0900, L501.2300 #### [facility] [address] [place], [address] MCHC (RBC) [Mass/Vol] 33.0 g/dL Normal 32-36 [facility] Comment on above: Performed By: #### L 3380.1000, L501.1800, L500.2500, L100.0500, L501.0900, L501.2300 #### [facility] [address] [place], [address] MCV (RBC) [Entitic vol] 91.9 fL Normal 81-99 [facility] Comment on above: Performed By: #### L 3380.1000, L501.1800, L500.2500, L100.0500, L501.0900, L501.2300 #### [facility] [address] [place], [address] Platelet mean volume (Bld) [Entitic vol] 10.7 fL Normal 6.2-12.0 [facility] Comment on above: Performed By: #### L 3380.1000, L501.1800, L500.2500, L100.0500, L501.0900, L501.2300 #### [facility] [address] [place], [address] Platelets (Bld) [#/Vol] 279 10*3/uL Normal 150-450 [facility] Comment on above: Performed By: #### L 3380.1000, L501.1800, L500.2500, L100.0500, L501.0900, L501.2300 #### [facility] [address] [place], [address] RBC (Bld) [#/Vol] 4.22 10*6/uL Normal 4.2-5.4 [facility] Comment on above: Performed By: #### L 3380.1000, L501.1800, L500.2500, L100.0500, L501.0900, L501.2300 #### [facility] [address] [place], [address] (168) RDW SD 42.9 fl Normal 35.1-43.9 [facility] Comment on above: Performed By: #### L 3380.1000, L501.1800, L500.2500, L100.0500, L501.0900, L501.2300 #### [facility] [address] [place], [place], [phone] (989) WBC (Bld) [#/Vol] 8.8 10*3/uL Normal 4.4-11.0 [facility] Comment on above: Performed By: #### L 3380.1000, L501.1800, L500.2500, L100.0500, L501.0900, L501.2300 #### [facility] [address] [place], [place], [id number] Carbon dioxide, total [Moles /volume] in Central venous bloodOrdered By: Krzysztof Conradichisasha on 10-03-2024 CO2 [Moles/Vol] 21.3 mmol/L 21.0-32.0 [facility] Chloride assayOrdered By: Na suad Tanphaichitr on 10-03-2024 Chloride [Moles/Vol] 109 mmol/L High 98-108 [facility] Comprehensive Metabolic Prof ilon 10-03-2024 Albumin [Mass/Vol] 4.0 g/dL Normal 3.4-4.8 [facility] Comment on above: Performed By: #### L 3380.1000, L501.1800, L500.2500, L100.0500, L501.0900, L501.2300 #### [facility] [address] [place], [address] Albumin/Globulin [Mass ratio] 1.7 {ratio} Normal 0.9-2.4 [facility] Comment on above: Performed By: #### L 3380.1000, L501.1800, L500.2500, L100.0500, L501.0900, L501.2300 #### [facility] [address] [place], [address] ALK PHOS 91 U/L Normal 35-104 [facility] Comment on above: Performed By: #### L 3380.1000, L501.1800, L500.2500, L100.0500, L501.0900, L501.2300 #### [facility] [address] [place], [address] ALT [Catalytic activity/Vol] 21 U/L Normal <=34 [facility] Comment on above: Performed By: #### L 3380.1000, L501.1800, L500.2500, L100.0500, L501.0900, L501.2300 #### [facility] [address] [place], [address] AST [Catalytic activity/Vol] 18 U/L Normal <=31 [facility] Comment on above: Performed By: #### L 3380.1000, L501.1800, L500.2500, L100.0500, L501.0900, L501.2300 #### [facility] [address] [place], [address] Bilirubin [Mass/Vol] 0.42 mg/dL Normal 0.00-1.30 [facility] Comment on above: Performed By: #### L 3380.1000, L501.1800, L500.2500, L100.0500, L501.0900, L501.2300 #### [facility] [address] [place], [address] BUN/CRE 16.8 RATIO Normal 10-20 [facility] Comment on above: Performed By: #### L 3380.1000, L501.1800, L500.2500, L100.0500, L501.0900, L501.2300 #### [facility] [address] [place], [address] Calcium [Mass/Vol] 10.5 mg/dL Normal 7.6-11.0 [facility] Comment on above: Performed By: #### L 3380.1000, L501.1800, L500.2500, L100.0500, L501.0900, L501.2300 #### [facility] [address] [place], [address] Chloride [Moles/Vol] 109 mmol/L High 98-108 [facility] Comment on above: Performed By: #### L 3380.1000, L501.1800, L500.2500, L100.0500, L501.0900, L501.2300 #### [facility] [address] [place], [address] CO2 [Moles/Vol] 21.3 mmol/L Normal 21.0-32.0 [facility] Comment on above: Performed By: #### L 3380.1000, L501.1800, L500.2500, L100.0500, L501.0900, L501.2300 #### [facility] [address] [place], [address] Creatinine [Mass/Vol] 1.69 mg/dL High 0.70-1.20 [facility] Comment on above: Performed By: #### L 3380.1000, L501.1800, L500.2500, L100.0500, L501.0900, L501.2300 #### [facility] [address] [place], [address] GAP 12 Normal 5-15 [facility] Comment on above: Performed By: #### L 3380.1000, L501.1800, L500.2500, L100.0500, L501.0900, L501.2300 #### [facility] [address] [place], [address] GFR/1.73 sq M.predicted among non-blacks MDRD (S/P/Bld) [Vol rate/Area] 34 mL/min/{1.73_m2} Low >60 [facility] Comment on above: Result Comment: mL/m in/1.73m2 CKD-EPI Creatinine Equation (2020) Performed By: #### L 3380.1000, L501.1800, L500.2500, L100.0500, L501.0900, L501.2300 #### [facility] [address] [place], [address] Globulin (S) [Mass/Vol] 2.3 g/dL Normal 2.2-4.2 [facility] Comment on above: Performed By: #### L 3380.1000, L501.1800, L500.2500, L100.0500, L501.0900, L501.2300 #### [facility] [address] [place], [address] Glucose [Mass/Vol] 114 mg/dL High 70-99 [facility] Comment on above: Performed By: #### L 3380.1000, L501.1800, L500.2500, L100.0500, L501.0900, L501.2300 #### [facility] [address] [place], [address] Potassium [Moles/Vol] 4.6 mmol/L Normal 3.3-5.1 [facility] Comment on above: Performed By: #### L 3380.1000, L501.1800, L500.2500, L100.0500, L501.0900, L501.2300 #### [facility] [address] [place], [address] Sodium [Moles/Vol] 141 mmol/L Normal 133-145 [facility] Comment on above: Performed By: #### L 3380.1000, L501.1800, L500.2500, L100.0500, L501.0900, L501.2300 #### [facility] [address] [place], [place], [phone] (816) T PROT 6.3 g/dL Normal 5.9-8.4 [facility] Comment on above: Performed By: #### L 3380.1000, L501.1800, L500.2500, L100.0500, L501.0900, L501.2300 #### [facility] [address] [place], [address] Urea nitrogen [Mass/Vol] 28 mg/dL High 4-19 [facility] Comment on above: Performed By: #### L 3380.1000, L501.1800, L500.2500, L100.0500, L501.0900, L501.2300 #### [facility] [address] [place], [place], [id number] (113) Erythrocyte distribution wid th ratioOrdered By: Krzysztof Wu on 10-03-2024 Erythrocyte distribution width (RBC) [Ratio] 12.8 % 11.6-14.6 [facility] Erythrocyte distribution wid th standard deviationOrdered By: Krzysztof Conradichisasha on 10-03-2024 Erythrocyte distribution width (RBC) [Ratio] 42.9 fl 35.1-43.9 [facility] Glomerular filtration rate ( GFR) estimation/1.73 sq m using serum, plasma, or whole bOrdered By: Krzysztof Wu on 10-03-2024 GFR/1.73 sq M.predicted among non-blacks MDRD (S/P/Bld) [Vol rate/Area] 34 mL/min/{1.73_m2} Low >60 [facility] Comment on above: mL/min/1.73m2 CKD-EP I Creatinine Equation (2020) Hematocrit Auto (Bld) [Volum e fraction]Ordered By: Krzysztof Wu on 10-03-2024 Hematocrit (Bld) [Volume fraction] 38.8 % 37-47 [facility] Hemoglobin measurementOrdere d By: Krzysztof Wu on 10-03-2024 Hemoglobin (Bld) [Mass/Vol] 12.8 g/dL 12.0-15.0 [facility] - Chemistry and C hemistry - challengeOrdered By: Krzysztof Wu on 10-03-2024 AST [Catalytic activity/Vol] 18 U/L <32 [facility] MCV (mean corpuscular volume ) determinationOrdered By: Gopalericka Wu on 10-03-2024 MCV (RBC) [Entitic vol] 91.9 fL 81-99 [facility] Magnesiumon 10-03-2024 Magnesium [Mass/Vol] 1.8 mg/dL Normal 1.5-2.2 [facility] Comment on above: Performed By: #### L 3380.1000, L501.1800, L500.2500, L100.0500, L501.0900, L501.2300 #### [facility] [address] [place], [address] Magnesium measurement (mass/ volume)Ordered By: Gopalericka Wu on 10-03-2024 Magnesium (Unsp spec) [Mass/Vol] 1.8 mg/dL 1.5-2.2 [facility] Mean corpuscular hemoglobin (MCH) determinationOrdered By: Krzysztof Conradichisasha on 10-03-2024 MCH (RBC) [Entitic mass] 30.3 pg 27.0-32.0 [facility] Mean corpuscular hemoglobin concentration (MCHC) determinationOrdered By: Gopalericka Wu on 10-03-2024 MCHC (RBC) [Mass/Vol] 33.0 g/dL 32-36 [facility] Mean platelet volume determi nationOrdered By: Krzysztof Conradichisasha on 10-03-2024 Platelet mean volume (Bld) [Entitic vol] 10.7 fL 6.2-12.0 [facility] Microalb:Creat Ratio,Random URon 10-03-2024 MALB:CREAT UNABLE TO CALCULATE Normal [facility] Comment on above: Performed By: #### L 3380.1000, L501.1800, L500.2500, L100.0500, L501.0900, L501.2300 #### [facility] [address] [place], [address] MICROALBUMIN,UR < 12.0 Normal NO RANGE EST. [facility] Comment on above: Performed By: #### L 3380.1000, L501.1800, L500.2500, L100.0500, L501.0900, L501.2300 #### [facility] [address] [place], [address] Microalbumin/creat ratio urO rdered By: Krzysztof Conradichisasha on 10-03-2024 Urine microalbumin/creatini ne ratio measurement UNABLE TO CALCULATE mg/g CRE [facility] PTHINon 10-03-2024 PTH 201 pg/mL High 11-61 [facility] Comment on above: Performed By: #### L 3380.1000, L501.1800, L500.2500, L100.0500, L501.0900, L501.2300 #### [facility] [address] [place], [address] Phosphoruson 10-03-2024 Phosphate [Mass/Vol] 2.9 mg/dL Normal 2.7-4.5 [facility] Comment on above: Performed By: #### L 3380.1000, L501.1800, L500.2500, L100.0500, L501.0900, L501.2300 #### [facility] [address] [place], [address] Platelet countOrdered By: Elena tthaveronica Tanphaichitr on 10-03-2024 Platelets (Bld) [#/Vol] 279 10*3/uL 150-450 [facility] Potassium measurement (mass/ volume)Ordered By: Krzysztof Wu on 10-03-2024 Potassium (Unsp spec) [Mass/Vol] 4.6 mmol/L 3.3-5.1 [facility] Protein+Creatinine Ratio,Uri neon 10-03-2024 PROT:CRE RATIO 100 mg/g CRE Normal 0-200 [facility] Comment on above: Performed By: #### L 3380.1000, L501.1800, L500.2500, L100.0500, L501.0900, L501.2300 #### [facility] [address] [place], [address] Protein (U) [Mass/Vol] 13.1 mg/dL High 0.0-12.0 [facility] Comment on above: Performed By: #### L 3380.1000, L501.1800, L500.2500, L100.0500, L501.0900, L501.2300 #### [facility] [address] [place], [address] UR CREAT 131.00 mg/dL Normal 28.00-217. 00 [facility] Comment on above: Performed By: #### L 3380.1000, L501.1800, L500.2500, L100.0500, L501.0900, L501.2300 #### [facility] [address] [place], [address] RBC Auto (Bld) [#/Vol]Ordere d By: Krzysztof Wu on 10-03-2024 RBC (Bld) [#/Vol] 4.22 10*6/uL 4.2-5.4 [facility] Random urine creatinine osei urement (mass/volume)Ordered By: Krzysztof Wu on 10-03-2024 Creatinine Unsp time (U) [Mass/Vol] 131.00 mg/dL 28.00-217. 00 [facility] Serum creatinine measurement (mass/volume)Ordered By: Krzysztof Wu on 10-03-2024 Creatinine [Mass/Vol] 1.69 mg/dL High 0.70-1.20 [facility] Serum globulin measurementOr dered By: Krzysztof Wu on 10-03-2024 Globulin (S) [Mass/Vol] 2.3 g/dL 2.2-4.2 [facility] Serum glucose measurement (m ass/volume)Ordered By: Krzysztof Wu on 10-03-2024 Glucose [Mass/Vol] 114 mg/dL High 70-99 [facility] Serum or plasma alanine dugan otransferase (ALT) measurementOrdered By: Krzysztof Wu on 10-03-2024 ALT [Catalytic activity/Vol] 21 U/L <35 [facility] Serum or plasma albumin osei urement (mass/volume)Ordered By: Krzysztof Wu on 10-03-2024 Albumin [Mass/Vol] 4.0 g/dL 3.4-4.8 [facility] Serum or plasma albumin/glob ulin mass ratioOrdered By: Gopalericka Wu on 10-03-2024 Albumin/Globulin [Mass ratio] 1.7 {ratio} 0.9-2.4 [facility] Serum or plasma alkaline simran sphatase measurementOrdered By: Krzysztof Wu on 10-03-2024 ALP [Catalytic activity/Vol] 91 U/L 35-104 [facility] Serum or plasma calcium osei urement (mass/volume)Ordered By: Krzysztof Wu on 10-03-2024 Calcium [Mass/Vol] 10.5 mg/dL 7.6-11.0 [facility] Serum or plasma urea nitroge n measurement (mass/volume)Ordered By: Krzysztof Wu on 10-03-2024 Urea nitrogen [Mass/Vol] 28 mg/dL High 4-19 [facility] Serum or plasma uric acid me asurement (mass/volume)Ordered By: Krzysztof Wu on 10-03-2024 Urate [Mass/Vol] 6.3 mg/dL High 2.6-6.0 [facility] Comment on above: The drugs N-Acetylcy steine and Metamizole may falsely depress this assay. Sodium levelOrdered By: Priscila Wu on 10-03-2024 Sodium [Moles/Vol] 141 mmol/L 133-145 [facility] Total proteinOrdered By: Gopal Wu on 10-03-2024 Protein [Mass/Vol] 6.3 g/dL 5.9-8.4 [facility] Uric Acidon 10-03-2024 URIC 6.3 mg/dL High 2.6-6.0 [facility] Comment on above: Result Comment: The drugs N-Acetylcysteine and Metamizole may falsely depress this assay. Performed By: #### L 3380.1000, L501.1800, L500.2500, L100.0500, L501.0900, L501.2300 #### [facility] [address] [place], [place], [id number] Urine albumin measurement [facility] detection limit of 20 mg/L or less (mass/volume)Ordered By: Krzysztof Wu on 10-03-2024 Albumin DL <= 20 mg/L (U) [Mass/Vol] < 12.0 mg/L NO RANGE EST. [facility] Urine protein measurement (m ass/volume)Ordered By: Krzysztof Wu on 10-03-2024 Protein (U) [Mass/Vol] 13.1 mg/dL High 0.0-12.0 [facility] Urine protein/creatinine mas s ratioOrdered By: Krzysztof Wu on 10-03-2024 Protein/Creatinine (U) [Mass ratio] 100 mg/g CRE 0-200 [facility] Vitamin D,25 Hydroxyon 10-03 Vitamin D 25-OH 55.7 ng/mL Normal 30-100 [facility] Comment on above: Result Comment: Kelly min D Status Deficiency: <20 ng/mL (50nmol/L) Insufficiency: 20-30 ng/mL (50-75 nmol/L) Sufficiency: 30-100 ng/mL (75-250 nmol/L) Toxicity: >100 ng/mL (>250 nmol/L) Performed By: #### L 3380.1000, L501.1800, L500.2500, L100.0500, L501.0900, L501.2300 #### [facility] [address] [place], [place], [id number] White blood cell (WBC) count Ordered By: Krzysztof Wu on 10-03-2024 WBC (Bld) [#/Vol] 8.8 10*3/uL 4.4-11.0 [facility] Tacrolimus (Prograf)on 09-23 Tacrolimus (Bld) [Mass/Vol] 5.3 ng/mL Normal 5.0-20.0 [facility] Comment on above: Order Comment: ALICE Clark SAID -MINUS THE CALCIUM. MAGALYS SAID SHE WOULD CREDIT THE CALCIUM. I TRIED CALLING BACK. THEY WERE ALL IN MEETINGS --DR. MARIE CALLED PT WITH ANOTHER ORDER (RENAL) WE CAN ADD THIS TO BMP, PLUS ALB AND PHOS. Result Comment: Sammy reddy steady state trough concentration for Tacrolimus varies [...] Please note reference interval change Performed at: [address] [id number] [employer] Winder: Amaury Dubois MD, Phone: [phone] Performed By: #### L 3380.1000, L501.1800, L500.2500, L100.0500, L501.0900, L501.2300 #### [facility] [address] [place], [address] Absolute lymphocyte counton 09-20-2024 Lymphocytes Auto (Unsp spec) [#/Vol] 0.87 10*3/uL 0.83-4.51 [facility] Absolute neutrophil counton 09-20-2024 Neutrophils (Bld) [#/Vol] 5.1 10*3/uL 2.0-7.7 [facility] Anion gap in Serum or Plasma on 09-20-2024 Anion gap [Moles/Vol] 11 mmol/L 5- [facility] Automated lymphocyte count a s percentage of total leukocyteson 09-20-2024 Lymphocytes/100 WBC Auto (Unsp spec) 12.2 % Low - [facility] BUN/creatinine ratioon 09-20 Urea nitrogen/Creatinine [Mass ratio] 17.1 mg/mg 10- [facility] Basophil percentageon 2024 Basophils/100 WBC (Bld) 1.1 % High 0-1 [facility] Bilirubin, totalon Bilirubin [Mass/Vol] 0.32 mg/dL 0.00-1.30 [facility] CBC W/Diff, Automatedon 09-04 Absolute Lymph 0.87 X10 3/uL Normal 0.83-4.51 [facility] Comment on above: Performed By: #### L 3380.1000, L501.1800, L500.2500, L100.0500, L501.0900, L501.2300 #### [facility] [address] [place], [address] Absolute Neut 5.1 X10 3/uL Normal 2.0-7.7 [facility] Comment on above: Performed By: #### L 3380.1000, L501.1800, L500.2500, L100.0500, L501.0900, L501.2300 #### [facility] [address] [place], [address] Basophils/100 WBC (Bld) 1.1 % High 0-1 [facility] Comment on above: Performed By: #### L 3380.1000, L501.1800, L500.2500, L100.0500, L501.0900, L501.2300 #### [facility] [address] [place], [address] Eosinophils/100 WBC (Bld) 5.2 % High 0-5 [facility] Comment on above: Performed By: #### L 3380.1000, L501.1800, L500.2500, L100.0500, L501.0900, L501.2300 #### [facility] [address] [place], [address] Erythrocyte distribution width (RBC) [Ratio] 12.9 % Normal 11.6-14.6 [facility] Comment on above: Performed By: #### L 3380.1000, L501.1800, L500.2500, L100.0500, L501.0900, L501.2300 #### [facility] [address] [place], [address] Hematocrit (Bld) [Volume fraction] 37.1 % Normal 37-47 [facility] Comment on above: Performed By: #### L 3380.1000, L501.1800, L500.2500, L100.0500, L501.0900, L501.2300 #### [facility] [address] [place], [address] Hemoglobin (Bld) [Mass/Vol] 12.2 g/dL Normal 12.0-15.0 [facility] Comment on above: Performed By: #### L 3380.1000, L501.1800, L500.2500, L100.0500, L501.0900, L501.2300 #### [facility] [address] [place], [address] IG% 0.400 Normal 0.0-0.9 [facility] Comment on above: Result Comment: IG% - Immature Granulocytes (promyelocytes, myelocytes and metamyelocytes) > 1% indicates that a LEFT SHIFT is Present. Performed By: #### L 3380.1000, L501.1800, L500.2500, L100.0500, L501.0900, L501.2300 #### [facility] [address] [place], [address] Lymphocytes/100 WBC (Bld) 12.2 % Low 19-41 [facility] Comment on above: Performed By: #### L 3380.1000, L501.1800, L500.2500, L100.0500, L501.0900, L501.2300 #### [facility] [address] [place], [address] MCH (RBC) [Entitic mass] 30.4 pg Normal 27.0-32.0 [facility] Comment on above: Performed By: #### L 3380.1000, L501.1800, L500.2500, L100.0500, L501.0900, L501.2300 #### [facility] [address] [place], [address] MCHC (RBC) [Mass/Vol] 32.9 g/dL Normal 32-36 [facility] Comment on above: Performed By: #### L 3380.1000, L501.1800, L500.2500, L100.0500, L501.0900, L501.2300 #### [facility] [address] [place], [address] MCV (RBC) [Entitic vol] 92.5 fL Normal 81-99 [facility] Comment on above: Performed By: #### L 3380.1000, L501.1800, L500.2500, L100.0500, L501.0900, L501.2300 #### [facility] [address] [place], [address] Monocytes/100 WBC (Bld) 9.5 % Normal 0-10 [facility] Comment on above: Performed By: #### L 3380.1000, L501.1800, L500.2500, L100.0500, L501.0900, L501.2300 #### [facility] [address] [place], [address] Neutrophils/100 WBC (Bld) 71.6 % High 47-70 [facility] Comment on above: Performed By: #### L 3380.1000, L501.1800, L500.2500, L100.0500, L501.0900, L501.2300 #### [facility] [address] [place], [address] Nucleated RBC (Bld) [#/Vol] 0 10*3/uL Normal 0-5 [facility] Comment on above: Performed By: #### L 3380.1000, L501.1800, L500.2500, L100.0500, L501.0900, L501.2300 #### [facility] [address] [place], [address] Platelet mean volume (Bld) [Entitic vol] 10.6 fL Normal 6.2-12.0 [facility] Comment on above: Performed By: #### L 3380.1000, L501.1800, L500.2500, L100.0500, L501.0900, L501.2300 #### [facility] [address] [place], [address] Platelets (Bld) [#/Vol] 289 10*3/uL Normal 150-450 [facility] Comment on above: Performed By: #### L 3380.1000, L501.1800, L500.2500, L100.0500, L501.0900, L501.2300 #### [facility] [address] [place], [address] RBC (Bld) [#/Vol] 4.01 10*6/uL Low 4.2-5.4 [facility] Comment on above: Performed By: #### L 3380.1000, L501.1800, L500.2500, L100.0500, L501.0900, L501.2300 #### [facility] [address] [place], [address] RDW SD 43.7 fl Normal 35.1-43.9 [facility] Comment on above: Performed By: #### L 3380.1000, L501.1800, L500.2500, L100.0500, L501.0900, L501.2300 #### [facility] [address] [place], [address] WBC (Bld) [#/Vol] 7.1 10*3/uL Normal 4.4-11.0 [facility] Comment on above: Performed By: #### L 3380.1000, L501.1800, L500.2500, L100.0500, L501.0900, L501.2300 #### [facility] [address] [place], [address] Calculated very low density lipoprotein (VLDL) cholesterol measurementon 09-20-2024 Calculated very low density lipoprotein (VLDL) cholesterol measurement 32 mg/dL 5-40 [facility] Carbon dioxide, total [Moles /volume] in Central venous bloodon 09-20-2024 CO2 [Moles/Vol] 20.0 mmol/L Low 21.0-32.0 [facility] Chloride assayon 09-20-2024 Chloride [Moles/Vol] 109 mmol/L High 98-108 [facility] Comprehensive Metabolic Prof ilon 09-20-2024 Albumin [Mass/Vol] 3.7 g/dL Normal 3.4-4.8 [facility] Comment on above: Order Comment: ALICE Clark SAID -MINUS THE CALCIUM. MAGALYS SAID SHE WOULD CREDIT THE CALCIUM. I TRIED CALLING BACK. THEY WERE ALL IN MEETINGS --DR. MARIE CALLED PT WITH ANOTHER ORDER (RENAL) WE CAN ADD THIS TO BMP, PLUS ALB AND PHOS. Performed By: #### L 3380.1000, L501.1800, L500.2500, L100.0500, L501.0900, L501.2300 #### [facility] [address] [place], [address] Albumin/Globulin [Mass ratio] 1.5 {ratio} Normal 0.9-2.4 [facility] Comment on above: Order Comment: ALICE Clark SAID -MINUS THE CALCIUM. MAGALYS SAID SHE WOULD CREDIT THE CALCIUM. I TRIED CALLING BACK. THEY WERE ALL IN MEETINGS --DR. MARIE CALLED PT WITH ANOTHER ORDER (RENAL) WE CAN ADD THIS TO BMP, PLUS ALB AND PHOS. Performed By: #### L 3380.1000, L501.1800, L500.2500, L100.0500, L501.0900, L501.2300 #### [facility] [address] [place], [place], [phone]) ALK PHOS 99 U/L Normal 35-104 [facility] Comment on above: Order Comment: ALICE Clark SAID -MINUS THE CALCIUM. MAGALYS SAID SHE WOULD CREDIT THE CALCIUM. I TRIED CALLING BACK. THEY WERE ALL IN MEETINGS --DR. MARIE CALLED PT WITH ANOTHER ORDER (RENAL) WE CAN ADD THIS TO BMP, PLUS ALB AND PHOS. Performed By: #### L 3380.1000, L501.1800, L500.2500, L100.0500, L501.0900, L501.2300 #### [facility] [address] [place], [place], [phone] (003) ALT [Catalytic activity/Vol] 16 U/L Normal <=34 [facility] Comment on above: Order Comment: ALICE Clark SAID -MINUS THE CALCIUM. MAGALYS SAID SHE WOULD CREDIT THE CALCIUM. I TRIED CALLING BACK. THEY WERE ALL IN MEETINGS --DR. MARIE CALLED PT WITH ANOTHER ORDER (RENAL) WE CAN ADD THIS TO BMP, PLUS ALB AND PHOS. Performed By: #### L 3380.1000, L501.1800, L500.2500, L100.0500, L501.0900, L501.2300 #### [facility] [address] [place], [address] AST [Catalytic activity/Vol] 18 U/L Normal <=31 [facility] Comment on above: Order Comment: ALICE Clark SAID -MINUS THE CALCIUM. MAGALYS SAID SHE WOULD CREDIT THE CALCIUM. I TRIED CALLING BACK. THEY WERE ALL IN MEETINGS --DR. MAIRE CALLED PT WITH ANOTHER ORDER (RENAL) WE CAN ADD THIS TO BMP, PLUS ALB AND PHOS. Performed By: #### L 3380.1000, L501.1800, L500.2500, L100.0500, L501.0900, L501.2300 #### [facility] [address] [place], [address] Bilirubin [Mass/Vol] 0.32 mg/dL Normal 0.00-1.30 [facility] Comment on above: Order Comment: ALICE Clark SAID -MINUS THE CALCIUM. MAGALYS SAID SHE WOULD CREDIT THE CALCIUM. I TRIED CALLING BACK. THEY WERE ALL IN MEETINGS --DR. MARIE CALLED PT WITH ANOTHER ORDER (RENAL) WE CAN ADD THIS TO BMP, PLUS ALB AND PHOS. Performed By: #### L 3380.1000, L501.1800, L500.2500, L100.0500, L501.0900, L501.2300 #### [facility] [address] [place], [address] BUN/CRE 17.1 RATIO Normal 10-20 [facility] Comment on above: Order Comment: ALICE Clark SAID -MINUS THE CALCIUM. MAGALYS SAID SHE WOULD CREDIT THE CALCIUM. I TRIED CALLING BACK. THEY WERE ALL IN MEETINGS --DR. MARIE CALLED PT WITH ANOTHER ORDER (RENAL) WE CAN ADD THIS TO BMP, PLUS ALB AND PHOS. Performed By: #### L 3380.1000, L501.1800, L500.2500, L100.0500, L501.0900, L501.2300 #### [facility] [address] [place], [address] Calcium [Mass/Vol] 9.9 mg/dL Normal 7.6-11.0 [facility] Comment on above: Order Comment: ALICE Clark SAID -MINUS THE CALCIUM. MAGALYS SAID SHE WOULD CREDIT THE CALCIUM. I TRIED CALLING BACK. THEY WERE ALL IN MEETINGS --DR. MARIE CALLED PT WITH ANOTHER ORDER (RENAL) WE CAN ADD THIS TO BMP, PLUS ALB AND PHOS. Performed By: #### L 3380.1000, L501.1800, L500.2500, L100.0500, L501.0900, L501.2300 #### [facility] [address] [place], [address] Chloride [Moles/Vol] 109 mmol/L High 98-108 [facility] Comment on above: Order Comment: ALICE Clark SAID -MINUS THE CALCIUM. MAGALYS SAID SHE WOULD CREDIT THE CALCIUM. I TRIED CALLING BACK. THEY WERE ALL IN MEETINGS --DR. MARIE CALLED PT WITH ANOTHER ORDER (RENAL) WE CAN ADD THIS TO BMP, PLUS ALB AND PHOS. Performed By: #### L 3380.1000, L501.1800, L500.2500, L100.0500, L501.0900, L501.2300 #### [facility] [address] [place], [address] CO2 [Moles/Vol] 20.0 mmol/L Low 21.0-32.0 [facility] Comment on above: Order Comment: ALICE Clark SAID -MINUS THE CALCIUM. MAGALYS SAID SHE WOULD CREDIT THE CALCIUM. I TRIED CALLING BACK. THEY WERE ALL IN MEETINGS --DR. MARIE CALLED PT WITH ANOTHER ORDER (RENAL) WE CAN ADD THIS TO BMP, PLUS ALB AND PHOS. Performed By: #### L 3380.1000, L501.1800, L500.2500, L100.0500, L501.0900, L501.2300 #### [facility] [address] [place], [address] Creatinine [Mass/Vol] 1.50 mg/dL High 0.70-1.20 [facility] Comment on above: Order Comment: ALICE Clark SAID -MINUS THE CALCIUM. MAGALYS SAID SHE WOULD CREDIT THE CALCIUM. I TRIED CALLING BACK. THEY WERE ALL IN MEETINGS --DR. MARIE CALLED PT WITH ANOTHER ORDER (RENAL) WE CAN ADD THIS TO BMP, PLUS ALB AND PHOS. Performed By: #### L 3380.1000, L501.1800, L500.2500, L100.0500, L501.0900, L501.2300 #### [facility] [address] [place], [address] GAP 11 Normal 5-15 [facility] Comment on above: Order Comment: ALICE Clark SAID -MINUS THE CALCIUM. MAGALYS SAID SHE WOULD CREDIT THE CALCIUM. I TRIED CALLING BACK. THEY WERE ALL IN MEETINGS --DR. MARIE CALLED PT WITH ANOTHER ORDER (RENAL) WE CAN ADD THIS TO BMP, PLUS ALB AND PHOS. Performed By: #### L 3380.1000, L501.1800, L500.2500, L100.0500, L501.0900, L501.2300 #### [facility] [address] [place], [address] GFR/1.73 sq M.predicted among non-blacks MDRD (S/P/Bld) [Vol rate/Area] 39 mL/min/{1.73_m2} Low >60 [facility] Comment on above: Order Comment: ALICE Clark SAID -MINUS THE CALCIUM. MAGALYS SAID SHE WOULD CREDIT THE CALCIUM. I TRIED CALLING BACK. THEY WERE ALL IN MEETINGS --DR. MARIE CALLED PT WITH ANOTHER ORDER (RENAL) WE CAN ADD THIS TO BMP, PLUS ALB AND PHOS. Result Comment: mL/m in/1.73m2 CKD-EPI Creatinine Equation (2020) Performed By: #### L 3380.1000, L501.1800, L500.2500, L100.0500, L501.0900, L501.2300 #### [facility] [address] [place], [address] Globulin (S) [Mass/Vol] 2.4 g/dL Normal 2.2-4.2 [facility] Comment on above: Order Comment: ALICE Clark SAID -MINUS THE CALCIUM. MAGALYS SAID SHE WOULD CREDIT THE CALCIUM. I TRIED CALLING BACK. THEY WERE ALL IN MEETINGS --DR. MARIE CALLED PT WITH ANOTHER ORDER (RENAL) WE CAN ADD THIS TO BMP, PLUS ALB AND PHOS. Performed By: #### L 3380.1000, L501.1800, L500.2500, L100.0500, L501.0900, L501.2300 #### [facility] [address] [place], [address] Glucose [Mass/Vol] 110 mg/dL High 70-99 [facility] Comment on above: Order Comment: ALICE Clark SAID -MINUS THE CALCIUM. MAGALYS SAID SHE WOULD CREDIT THE CALCIUM. I TRIED CALLING BACK. THEY WERE ALL IN MEETINGS --DR. MARIE CALLED PT WITH ANOTHER ORDER (RENAL) WE CAN ADD THIS TO BMP, PLUS ALB AND PHOS. Performed By: #### L 3380.1000, L501.1800, L500.2500, L100.0500, L501.0900, L501.2300 #### [facility] [address] [place], [address] Potassium [Moles/Vol] 4.3 mmol/L Normal 3.3-5.1 [facility] Comment on above: Order Comment: ALICE Clark SAID -MINUS THE CALCIUM. MAGALYS SAID SHE WOULD CREDIT THE CALCIUM. I TRIED CALLING BACK. THEY WERE ALL IN MEETINGS --DR. MARIE CALLED PT WITH ANOTHER ORDER (RENAL) WE CAN ADD THIS TO BMP, PLUS ALB AND PHOS. Performed By: #### L 3380.1000, L501.1800, L500.2500, L100.0500, L501.0900, L501.2300 #### [facility] [address] [place], [address] Sodium [Moles/Vol] 140 mmol/L Normal 133-145 [facility] Comment on above: Order Comment: ALICE Clark SAID -MINUS THE CALCIUM. MAGALYS SAID SHE WOULD CREDIT THE CALCIUM. I TRIED CALLING BACK. THEY WERE ALL IN MEETINGS --DR. MARIE CALLED PT WITH ANOTHER ORDER (RENAL) WE CAN ADD THIS TO BMP, PLUS ALB AND PHOS. Performed By: #### L 3380.1000, L501.1800, L500.2500, L100.0500, L501.0900, L501.2300 #### [facility] [address] [place], [address] T PROT 6.1 g/dL Normal 5.9-8.4 [facility] Comment on above: Order Comment: ALICE Clark SAID -MINUS THE CALCIUM. MAGALYS SAID SHE WOULD CREDIT THE CALCIUM. I TRIED CALLING BACK. THEY WERE ALL IN MEETINGS --DR. MARIE CALLED PT WITH ANOTHER ORDER (RENAL) WE CAN ADD THIS TO BMP, PLUS ALB AND PHOS. Performed By: #### L 3380.1000, L501.1800, L500.2500, L100.0500, L501.0900, L501.2300 #### [facility] [address] [place], [address] Urea nitrogen [Mass/Vol] 26 mg/dL High 4-19 [facility] Comment on above: Order Comment: ALICE Clark SAID -MINUS THE CALCIUM. MAGALYS SAID SHE WOULD CREDIT THE CALCIUM. I TRIED CALLING BACK. THEY WERE ALL IN MEETINGS --DR. MARIE CALLED PT WITH ANOTHER ORDER (RENAL) WE CAN ADD THIS TO BMP, PLUS ALB AND PHOS. Performed By: #### L 3380.1000, L501.1800, L500.2500, L100.0500, L501.0900, L501.2300 #### [facility] [address] [place], [address] Eosinophil percentageon 09-04 Eosinophils/100 WBC (Bld) 5.2 % High 0-5 [facility] Erythrocyte distribution wid th ratioon 09-20-2024 Erythrocyte distribution width (RBC) [Ratio] 12.9 % 11.6-14.6 [facility] Erythrocyte distribution wid th standard deviationon 09-20-2024 Erythrocyte distribution width (RBC) [Ratio] 43.7 fl 35.1-43.9 [facility] Glomerular filtration rate ( GFR) estimation/1.73 sq m using serum, plasma, or whole bon 09-20-2024 GFR/1.73 sq M.predicted among non-blacks MDRD (S/P/Bld) [Vol rate/Area] 39 mL/min/{1.73_m2} Low >60 [facility] Comment on above: mL/min/1.73m2 CKD-EP I Creatinine Equation (2020) Hematocrit Auto (Bld) [Volum e fraction]on 09-20-2024 Hematocrit (Bld) [Volume fraction] 37.1 % 37-47 [facility] Hemoglobin measurementon Hemoglobin (Bld) [Mass/Vol] 12.2 g/dL 12.0-15.0 [facility] Immature granulocytes/100 WB C Auto (Bld)on 09-20-2024 Immature granulocytes/100 WBC (Bld) 0.400 % 0.0-0.9 [facility] Comment on above: IG% - Immature Granu locytes (promyelocytes, myelocytes and metamyelocytes) > 1% indicates that a LEFT SHIFT is Present. LDL calc ser/plason 09-21-19 25 Cholesterol in LDL [Mass/Vol] 48 mg/dL [facility] Comment on above: Npdgoevfcp=671-528 m g/dL & Higher Blyn=305 mg/dL or greater Laboratory - Chemistry and C hemistry - challengeon 09-20-2024 AST [Catalytic activity/Vol] 18 U/L <32 [facility] Lipid Profileon 09-20-2024 CHOL:HDL 2.33 Normal [facility] Comment on above: Order Comment: ALICE Clark SAID -MINUS THE CALCIUM. MAGALYS SAID SHE WOULD CREDIT THE CALCIUM. I TRIED CALLING BACK. THEY WERE ALL IN MEETINGS --DR. MARIE CALLED PT WITH ANOTHER ORDER (RENAL) WE CAN ADD THIS TO BMP, PLUS ALB AND PHOS. Performed By: #### L 3380.1000, L501.1800, L500.2500, L100.0500, L501.0900, L501.2300 #### [facility] [address] [place], [address] Cholesterol [Mass/Vol] 140 mg/dL Normal <=200 [facility] Comment on above: Order Comment: ALICE Clark SAID -MINUS THE CALCIUM. MAGALYS SAID SHE WOULD CREDIT THE CALCIUM. I TRIED CALLING BACK. THEY WERE ALL IN MEETINGS --DR. MARIE CALLED PT WITH ANOTHER ORDER (RENAL) WE CAN ADD THIS TO BMP, PLUS ALB AND PHOS. Result Comment: Chol esterol level, Desirable <200 mg/dL Borderline high cholesterol 200-239 mg/dL High cholesterol >=240 mg/dL Recommendations of the NCEP Adult Treatment Panel for the following risk-cutoff thresholds for the [place] population. Performed By: #### L 3380.1000, L501.1800, L500.2500, L100.0500, L501.0900, L501.2300 #### [facility] [address] [place], [address] Cholesterol in HDL [Mass/Vol] 60 mg/dL Normal [facility] Comment on above: Order Comment: ALICE Clark SAID -MINUS THE CALCIUM. MAGALYS SAID SHE WOULD CREDIT THE CALCIUM. I TRIED CALLING BACK. THEY WERE ALL IN MEETINGS --DR. MARIE CALLED PT WITH ANOTHER ORDER (RENAL) WE CAN ADD THIS TO BMP, PLUS ALB AND PHOS. Result Comment: Linda onal Cholesterol Education Program (NCEP) guidelines: <40 mg/dL: Low HDL-cholesterol (major risk factor for CHD) >= 60 mg/dL: High HDL-cholesterol (negative risk factor for CHD) HDL-cholesterol is affected by a number of factors, e.g. smoking, exercise, hormones, sex and age. Performed By: #### L 3380.1000, L501.1800, L500.2500, L100.0500, L501.0900, L501.2300 #### [facility] [address] [place], [address] Cholesterol in LDL [Mass/Vol] 48 mg/dL Normal [facility] Comment on above: Order Comment: ALICE Clark SAID -MINUS THE CALCIUM. MAGALYS SAID SHE WOULD CREDIT THE CALCIUM. I TRIED CALLING BACK. THEY WERE ALL IN MEETINGS --DR. MARIE CALLED PT WITH ANOTHER ORDER (RENAL) WE CAN ADD THIS TO BMP, PLUS ALB AND PHOS. Result Comment: Bord yyhzjn=993-375 mg/dL Higher Dfzi=442 mg/dL or greater Performed By: #### L 3380.1000, L501.1800, L500.2500, L100.0500, L501.0900, L501.2300 #### [facility] [address] [place], [address] Cholesterol in VLDL [Mass/Vol] 32 mg/dL Normal 5-40 [facility] Comment on above: Order Comment: ALICE Clark SAID -MINUS THE CALCIUM. MAGALYS SAID SHE WOULD CREDIT THE CALCIUM. I TRIED CALLING BACK. THEY WERE ALL IN MEETINGS --DR. MARIE CALLED PT WITH ANOTHER ORDER (RENAL) WE CAN ADD THIS TO BMP, PLUS ALB AND PHOS. Performed By: #### L 3380.1000, L501.1800, L500.2500, L100.0500, L501.0900, L501.2300 #### [facility] [address] [place], [address] Triglyceride [Mass/Vol] 158 mg/dL [facility] Comment on above: Order Comment: ALICE Clark SAID -MINUS THE CALCIUM. MAGALYS SAID SHE WOULD CREDIT THE CALCIUM. I TRIED CALLING BACK. THEY WERE ALL IN MEETINGS --DR. MARIE CALLED PT WITH ANOTHER ORDER (RENAL) WE CAN ADD THIS TO BMP, PLUS ALB AND PHOS. Result Comment: The drugs N-Acetylcysteine and Metamizole may falsely depress this assay. Normal range: <150 mg/dL Borderline High: 150-199 mg/dL High: 200-499 mg/dL Very High: >500 mg/dL Performed By: #### L 3380.1000, L501.1800, L500.2500, L100.0500, L501.0900, L501.2300 #### [facility] [address] [place], [address] MCV (mean corpuscular volume ) determinationon 09-20-2024 MCV (RBC) [Entitic vol] 92.5 fL 81-99 [facility] Magnesiumon 09-20-2024 Magnesium [Mass/Vol] 1.9 mg/dL Normal 1.5-2.2 [facility] Comment on above: Order Comment: ALICE Clark SAID -MINUS THE CALCIUM. MAGALYS SAID SHE WOULD CREDIT THE CALCIUM. I TRIED CALLING BACK. THEY WERE ALL IN MEETINGS --DR. MARIE CALLED PT WITH ANOTHER ORDER (RENAL) WE CAN ADD THIS TO BMP, PLUS ALB AND PHOS. Performed By: #### L 3380.1000, L501.1800, L500.2500, L100.0500, L501.0900, L501.2300 #### [facility] [address] [place], [place], [id number] Magnesium measurement (mass/ volume)on 09-20-2024 Magnesium (Unsp spec) [Mass/Vol] 1.9 mg/dL 1.5-2.2 [facility] Mean corpuscular hemoglobin (MCH) determinationon 09-20-2024 MCH (RBC) [Entitic mass] 30.4 pg 27.0-32.0 [facility] Mean corpuscular hemoglobin concentration (MCHC) determinationon 09-20-2024 MCHC (RBC) [Mass/Vol] 32.9 g/dL 32-36 [facility] Mean platelet volume determi nationon 09-20-2024 Platelet mean volume (Bld) [Entitic vol] 10.6 fL 6.2-12.0 [facility] Monocyte percentageon 2024 Monocytes/100 WBC (Bld) 9.5 % 0-10 [facility] Neutrophil percentageon - Neutrophils/100 WBC (Bld) 71.6 % High 47-70 [facility] Nucleated red blood cell per centageon 09-20-2024 Nucleated RBC/100 WBC (Bld) [Ratio] 0 % 0-5 [facility] Phosphoruson 09-20-2024 Phosphate [Mass/Vol] 1.8 mg/dL Low 2.7-4.5 [facility] Comment on above: Order Comment: ALICE Clark SAID -MINUS THE CALCIUM. MAGALYS SAID SHE WOULD CREDIT THE CALCIUM. I TRIED CALLING BACK. THEY WERE ALL IN MEETINGS --DR. MARIE CALLED PT WITH ANOTHER ORDER (RENAL) WE CAN ADD THIS TO BMP, PLUS ALB AND PHOS. Performed By: #### L 3380.1000, L501.1800, L500.2500, L100.0500, L501.0900, L501.2300 #### [facility] [address] [place], [address] Platelet counton 09-20-2024 Platelets (Bld) [#/Vol] 289 10*3/uL 150-450 [facility] Potassium measurement (mass/ volume)on 09-20-2024 Potassium (Unsp spec) [Mass/Vol] 4.3 mmol/L 3.3-5.1 [facility] Protein+Creatinine Ratio,Uri neon 09-20-2024 PROT:CRE RATIO 87 mg/g CRE Normal 0-200 [facility] Comment on above: Performed By: #### L 3380.1000, L501.1800, L500.2500, L100.0500, L501.0900, L501.2300 #### [facility] [address] [place], [address] Protein (U) [Mass/Vol] 6.6 mg/dL Normal 0.0-12.0 [facility] Comment on above: Performed By: #### L 3380.1000, L501.1800, L500.2500, L100.0500, L501.0900, L501.2300 #### [facility] [address] [place], [address] UR CREAT 75.80 mg/dL Normal 28.00-217. 00 [facility] Comment on above: Performed By: #### L 3380.1000, L501.1800, L500.2500, L100.0500, L501.0900, L501.2300 #### [facility] [address] [place], [address] RBC Auto (Bld) [#/Vol]on RBC (Bld) [#/Vol] 4.01 10*6/uL Low 4.2-5.4 [facility] Random urine creatinine osei urement (mass/volume)on 09-20-2024 Creatinine Unsp time (U) [Mass/Vol] 75.80 mg/dL 28.00-217. 00 [facility] Screening total cholesterol/ high density lipoprotein (HDL) cholesterol ratioon 09-20-2024 Cholesterol.total/Cho lesterol in HDL [Mass ratio] 2.33 {ratio} [facility] Serum creatinine measurement (mass/volume)on 09-20-2024 Creatinine [Mass/Vol] 1.50 mg/dL High 0.70-1.20 [facility] Serum globulin measurementon 09-20-2024 Globulin (S) [Mass/Vol] 2.4 g/dL 2.2-4.2 [facility] Serum glucose measurement (m ass/volume)on 09-20-2024 Glucose [Mass/Vol] 110 mg/dL High 70-99 [facility] Serum or plasma alanine dugan otransferase (ALT) measurementon 09-20-2024 ALT [Catalytic activity/Vol] 16 U/L <35 [facility] Serum or plasma albumin osei urement (mass/volume)on 09-20-2024 Albumin [Mass/Vol] 3.7 g/dL 3.4-4.8 [facility] Serum or plasma albumin/glob ulin mass ratioon 09-20-2024 Albumin/Globulin [Mass ratio] 1.5 {ratio} 0.9-2.4 [facility] Serum or plasma alkaline simran sphatase measurementon 09-20-2024 ALP [Catalytic activity/Vol] 99 U/L 35-104 [facility] Serum or plasma calcium osei urement (mass/volume)on 09-20-2024 Calcium [Mass/Vol] 9.9 mg/dL 7.6-11.0 [facility] Comment on above: *Additional results available. Contact laboratory/see report* Serum or plasma cholesterol in HDL measurement (mass/volume)on 09-20-2024 Cholesterol in HDL [Mass/Vol] 60 mg/dL >40 [facility] Comment on above: National Cholesterol Education Program (NCEP) guidelines:<40 mg/dL: Low HDL-cholesterol (major risk factor for CHD)>= 60 mg/dL: High HDL-cholesterol (negative risk factor for CHD)HDL-cholesterol is affected by a number of factors, e.g. smoking, exercise, hormones, sex and age. Serum or plasma cholesterol measurement (mass/volume)on 09-20-2024 Cholesterol [Mass/Vol] 140 mg/dL <201 [facility] Comment on above: Cholesterol level, D esirable <200 mg/dLBorderline high cholesterol 200-239 mg/dLHigh cholesterol >=240 mg/dLRecommendations of the NCEP Adult Treatment Panel for the following risk-cutoff thresholds for the [place] population. Serum or plasma urea nitroge n measurement (mass/volume)on 09-20-2024 Urea nitrogen [Mass/Vol] 26 mg/dL High 4-19 [facility] Sodium levelon 09-20-2024 Sodium [Moles/Vol] 140 mmol/L 133-145 [facility] Total proteinon 09-20-2024 Protein [Mass/Vol] 6.1 g/dL 5.9-8.4 [facility] Triglycerides measurementon 09-20-2024 Triglyceride [Mass/Vol] 158 mg/dL <199 [facility] Comment on above: The drugs N-Acetylcy steine and Metamizole may falsely depress this assay. Normal range: <150 mg/dLBorderline High: 150-199 mg/dLHigh: 200-499 mg/dLVery High: >500 mg/dL Urine protein measurement (m ass/volume)on 09-20-2024 Protein (U) [Mass/Vol] 6.6 mg/dL 0.0-12.0 [facility] Urine protein/creatinine mas s ratioon 09-20-2024 Protein/Creatinine (U) [Mass ratio] 87 mg/g CRE 0-200 [facility] White blood cell (WBC) count on 09-20-2024 WBC (Bld) [#/Vol] 7.1 10*3/uL 4.4-11.0 [facility] BK VIRUS DNA QN, PCR, PLASMA Ordered By: Angie Pepper on 09-13-2024 BK Viral Load By PCR,(Log) [facility] BK virus DNA NORA+probe Qn [facility] Interpretation and review of laboratory results Normal [facility] This test was perfor med using a real time PCR assay. The dynamic range for this assay is 21.5-100,000,000 IU/mL (1.33-8.00 Log IU/mL). [facility] ALLOSCREEN RECIPIENT (POST T X PRA)on 09-12-2024 AB SPECIFICITY CLASS COMMENT Antibody Specificity testing performed by [employer]. cPRA calculation based on identification of HLA antibody specificities at MFI >2000 and/or presence of CREG antibodies. Normal [facility] Comment on above: Result Comment: Some of the reagents used for testing in the Clinical Histocompatibility Laboratory have yet to be approved by the FDA. Our certification by CLIA to perform high complexity tests allows us to use these reagents in the context of a stringent QC program, and obviates the need for FDA approval.Testing performed by the [facility] Clinical Histocompatibility Laboratory. [facility] number: [id number]. [facility] number: [id number], Director: Lawson Christianson, PhD, F([facility]). Performed By: #### A LLOR #### [facility] (DEFAULT) [address] [address] ANTIBODY SPECIFICITY INTERPRETATION Detected Normal [facility] Comment on above: Performed By: #### A LLOR #### [facility] (DEFAULT) [address] [address] CLASS I SPECIFICITIES A:2 68 69 Normal [facility] Comment on above: Performed By: #### A LLOR #### [facility] (DEFAULT) [address] [address] CLASS II SPECIFICITIES Not detected Normal [facility] Comment on above: Performed By: #### A LLOR #### [facility] (DEFAULT) [address] [address] cPRA 54 % High 0 [facility] Comment on above: Performed By: #### A LLOR #### [facility] (DEFAULT) [address] [address] BK VIRUS DNA QN, PCR, PLASMA on 09-12-2024 BK Viral Load By PCR,(Log) < Normal <1.33 [facility] Comment on above: Order Comment: This test was performed using a real time PCR assay. The dynamic range for this assay is 21.5-100,000,000 IU/mL (1.33-8.00 Log IU/mL). Performed By: #### B KBP #### [facility] (DEFAULT) [address] [address] Bk Viral Load, Plasma <21.5 Normal <21.5 [facility] Comment on above: Order Comment: This test was performed using a real time PCR assay. The dynamic range for this assay is 21.5-100,000,000 IU/mL (1.33-8.00 Log IU/mL). Performed By: #### B KBP #### [facility] (DEFAULT) [address] [address] URINE PROTEIN/CREA RATIO, RA NDOMon 09-12-2024 Creatinine (24H U) [Mass/Vol] 162.47 mg/dL [facility] Protein Unsp time (U) [Mass/Vol] 13 mg/dL [facility] Protein/Creatinine (U) [Mass ratio] 0.08 mg/mg [facility] Creatinine (U) [Mass/Vol] 162.47 mg/dL Normal [facility] Comment on above: Performed By: #### U PCR #### [facility] (DEFAULT) [address] [address] Prot/Creat Ratio 0.080 mg/mg Normal [facility] Comment on above: Performed By: #### U PCR #### [facility] (DEFAULT) [address] [address] Protein Ql (U) 13 mg/dL Normal [facility] Comment on above: Performed By: #### U PCR #### [facility] (DEFAULT) [address] [address] Tacrolimus (Prograf)on 06-07 Tacrolimus (Bld) [Mass/Vol] 7.4 ng/mL Normal 2.0-20.0 [facility] Comment on above: Order Comment: Test( s) 949405-[id number] (FK506), Bloodwas developed and its performance characteristicsdetermined by [facility]. It has not been cleared or approvedby the Food and Drug Administration. Result Comment: Trou gh (immediately following transplant) 15.0 Trough (steady state, 2 weeks or more after transplant): 3.0 - 8.0 Performed by LC-MS/MS technology. Performed at: [address] [id number] Motor Winder: Amaury Dubois MD, Phone: [phone] Performed By: #### L 3380.1000, L501.1800, L500.2500, L100.0500, L501.0900, L501.2300 #### [facility] [address] [place], [address] Basic Metabolic Profile (BMP )on 06-04-2024 BUN/CRE 18.9 RATIO Normal 10-20 [facility] Comment on above: Performed By: #### L 3380.1000, L501.1800, L500.2500, L100.0500, L501.0900, L501.2300 #### [facility] [address] [place], [address] CA,Total 10.0 mg/dL Normal 8.5-10.1 [facility] Comment on above: Performed By: #### L 3380.1000, L501.1800, L500.2500, L100.0500, L501.0900, L501.2300 #### [facility] [address] [place], [address] Chloride [Moles/Vol] 116 mmol/L High 98-107 [facility] Comment on above: Performed By: #### L 3380.1000, L501.1800, L500.2500, L100.0500, L501.0900, L501.2300 #### [facility] [address] [place], [address] CO2 [Moles/Vol] 23.0 mmol/L Normal 21.0-32.0 [facility] Comment on above: Performed By: #### L 3380.1000, L501.1800, L500.2500, L100.0500, L501.0900, L501.2300 #### [facility] [address] [place], [place], [address] Creatinine [Mass/Vol] 1.32 mg/dL High 0.55-1.02 [facility] Comment on above: Result Comment: The validity of the calculated GFR GFRAA in patients over 70 years has not been determined. Clinical correlation is essential. Performed By: #### L 3380.1000, L501.1800, L500.2500, L100.0500, L501.0900, L501.2300 #### [facility] [address] [place], [place], [address] EST GFR - AA 53 mL/min Low >60 [facility] Comment on above: Result Comment: Afri can Greek GFR Calc Performed By: #### L 3380.1000, L501.1800, L500.2500, L100.0500, L501.0900, L501.2300 #### [facility] [address] [place], [place], [address] GAP 2 Low 5-15 [facility] Comment on above: Performed By: #### L 3380.1000, L501.1800, L500.2500, L100.0500, L501.0900, L501.2300 #### [facility] [address] [place], [place], [address] GFR/1.73 sq M.predicted among non-blacks MDRD (S/P/Bld) [Vol rate/Area] 43 mL/min/{1.73_m2} Low >60 [facility] Comment on above: Result Comment: Non- GFR Calc Performed By: #### L 3380.1000, L501.1800, L500.2500, L100.0500, L501.0900, L501.2300 #### [facility] [address] [place], [address] Glucose [Mass/Vol] 115 mg/dL High 74-106 [facility] Comment on above: Result Comment: Fast ing Glucose result from 100 to 125 mg/dL suggests IMPAIRED HOMEOSTASIS per A.D.A. criteria. Performed By: #### L 3380.1000, L501.1800, L500.2500, L100.0500, L501.0900, L501.2300 #### [facility] [address] [place], [address] Potassium [Moles/Vol] 4.3 mmol/L Normal 3.5-5.1 [facility] Comment on above: Performed By: #### L 3380.1000, L501.1800, L500.2500, L100.0500, L501.0900, L501.2300 #### [facility] [address] [place], [address] Sodium [Moles/Vol] 141 mmol/L Normal 136-145 [facility] Comment on above: Performed By: #### L 3380.1000, L501.1800, L500.2500, L100.0500, L501.0900, L501.2300 #### [facility] [address] [place], [address] Urea nitrogen [Mass/Vol] 25 mg/dL High 7-18 [facility] Comment on above: Performed By: #### L 3380.1000, L501.1800, L500.2500, L100.0500, L501.0900, L501.2300 #### [facility] [address] [place], [address] CBC-Complete Blood Cnt No Di ffon 06-04-2024 Erythrocyte distribution width (RBC) [Ratio] 13.0 % Normal 11.6-14.6 [facility] Comment on above: Performed By: #### L 3380.1000, L501.1800, L500.2500, L100.0500, L501.0900, L501.2300 #### [facility] [address] [place], [address] Hematocrit (Bld) [Volume fraction] 40.4 % Normal 37-47 [facility] Comment on above: Performed By: #### L 3380.1000, L501.1800, L500.2500, L100.0500, L501.0900, L501.2300 #### [facility] [address] [place], [address] Hemoglobin (Bld) [Mass/Vol] 13.0 g/dL Normal 12.0-15.0 [facility] Comment on above: Performed By: #### L 3380.1000, L501.1800, L500.2500, L100.0500, L501.0900, L501.2300 #### [facility] [address] [place], [address] MCH (RBC) [Entitic mass] 30.0 pg Normal 27.0-32.0 [facility] Comment on above: Performed By: #### L 3380.1000, L501.1800, L500.2500, L100.0500, L501.0900, L501.2300 #### [facility] [address] [place], [address] MCHC (RBC) [Mass/Vol] 32.2 g/dL Normal 32-36 [facility] Comment on above: Performed By: #### L 3380.1000, L501.1800, L500.2500, L100.0500, L501.0900, L501.2300 #### [facility] [address] [place], [address] MCV (RBC) [Entitic vol] 93.3 fL Normal 81-99 [facility] Comment on above: Performed By: #### L 3380.1000, L501.1800, L500.2500, L100.0500, L501.0900, L501.2300 #### [facility] [address] [place], [address] Platelet mean volume (Bld) [Entitic vol] 10.7 fL Normal 6.2-12.0 [facility] Comment on above: Performed By: #### L 3380.1000, L501.1800, L500.2500, L100.0500, L501.0900, L501.2300 #### [facility] [address] [place], [address] Platelets (Bld) [#/Vol] 289 10*3/uL Normal 150-450 [facility] Comment on above: Performed By: #### L 3380.1000, L501.1800, L500.2500, L100.0500, L501.0900, L501.2300 #### [facility] [address] [place], [address] RBC (Bld) [#/Vol] 4.33 10*6/uL Normal 4.2-5.4 [facility] Comment on above: Performed By: #### L 3380.1000, L501.1800, L500.2500, L100.0500, L501.0900, L501.2300 #### [facility] [address] [place], [address] RDW SD 44.1 fl High 35.1-43.9 [facility] Comment on above: Performed By: #### L 3380.1000, L501.1800, L500.2500, L100.0500, L501.0900, L501.2300 #### [facility] [address] [place], [address] WBC (Bld) [#/Vol] 8.1 10*3/uL Normal 4.4-11.0 [facility] Comment on above: Performed By: #### L 3380.1000, L501.1800, L500.2500, L100.0500, L501.0900, L501.2300 #### [facility] [address] [place], [address] Magnesiumon 06-04-2024 Magnesium [Mass/Vol] 1.7 mg/dL Normal 1.6-2.6 [facility] Comment on above: Performed By: #### L 3380.1000, L501.1800, L500.2500, L100.0500, L501.0900, L501.2300 #### [facility] [address] [place], [address] Phosphoruson 06-04-2024 Phosphate [Mass/Vol] 1.6 mg/dL Low 2.5-4.9 [facility] Comment on above: Performed By: #### L 3380.1000, L501.1800, L500.2500, L100.0500, L501.0900, L501.2300 #### [facility] [address] [place], [address] SCRN MAMM (CAD)W/HA BILATo n 05-18-2024 SCRN MAMM (CAD)W/HA BILAT [facility] Services [address] [place] [address] SCRN MAMM (CAD)W/HA BILAT MR#: [id number] Acct: [id number] Name: CATE FOX Rep #: [id number] : 1960 F 63 From: Jourdan peres MD PCP: Dr. Carson Russell MD Status: [facility] Study: SCRN MAMM (CAD)W/HA BILAT Date of Exam: 05/06 08/27 Exam# [id number] Ordering Dr: Debra Astudillo SKEIN DRIER SKEIN DRIER -C :[id number] MAMMOGRAPHY - BILATERAL SCREENING REASON FOR EXAM: [...] delay biopsy of a clinically suspicious abnormality. [id number] Electronically Signed: Jourdan Marquis MD at 8:39 EST , CC: SONIDO Astudillo; Dr. 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 [facility] Comment on above: Order Comment: Speci men Comment: [id number] Comment: No. of containers..01 ThinPrep Vial Result Comment: Sati sfactory for evaluation. Endocervical and/or squamous metaplastic cells (endocervical component) are present. Performed By: #### L 3380.1000, L501.1800, L500.2500, L100.0500, L501.0900, L501.2300 #### [facility] [address] [place], [place], [address] COMM . Normal . [facility] Comment on above: Order Comment: Speci men Comment: [id number] Comment: No. of containers..01 ThinPrep Vial Performed By: #### L 3380.1000, L501.1800, L500.2500, L100.0500, L501.0900, L501.2300 #### [facility] [address] [place], [place], [address] COMMENT Comment Normal . [facility] Comment on above: Order Comment: Speci men Comment: [id number] Comment: No. of containers..01 ThinPrep Vial Result Comment: This liquid based ThinPrep(R) pap test was screened with the use of an image guided system. Performed By: #### L 3380.1000, L501.1800, L500.2500, L100.0500, L501.0900, L501.2300 #### [facility] [address] [place], [place], [address] DIAG Comment Normal . [facility] Comment on above: Order Comment: Speci men Comment: [id number] Comment: No. of containers..01 ThinPrep Vial Result Comment: NEGA TIVE FOR INTRAEPITHELIAL LESION OR MALIGNANCY. Performed By: #### L 3380.1000, L501.1800, L500.2500, L100.0500, L501.0900, L501.2300 #### [facility] [address] [place], [place], [address] HPV APTIMA, HR Negative Normal Negative [facility] Comment on above: Order Comment: Speci men Comment: [id number] Comment: No. of containers..01 ThinPrep Vial Result Comment: This nucleic acid amplification test detects fourteen high- risk HPV types (16,18,31,33,35,39,45,51,52,56,58,59,66,68) without differentiation. Performed By: #### L 3380.1000, L501.1800, L500.2500, L100.0500, L501.0900, L501.2300 #### [facility] [address] [place], [address] HPV Enedelia Rfx Comment Normal . [facility] Comment on above: Order Comment: Speci men Comment: [id number] Comment: No. of containers..01 ThinPrep Vial Result Comment: Crit eria not met, HPV Genotype not performed. Performed at: - [address] [id number] Motor Winder: Prabha Deras MD, Phone: [phone] Performed at: = - [facility] [id number] Motor Winder: Prabha Deras MD, Phone: [phone] Performed By: #### L 3380.1000, L501.1800, L500.2500, L100.0500, L501.0900, L501.2300 #### [facility] [address] [place], [place], [address] PAPSMR Comment Normal . [facility] Comment on above: Order Comment: Speci men Comment: [id number] Comment: No. of containers..01 ThinPrep Vial Result Comment: The Pap smear is a screening test designed to aid in the detection of premalignant and malignant conditions of the uterine cervix. It is not a diagnostic procedure and should not be used as the sole means of detecting cervical cancer. Both false-positive and false-negative reports do occur. Performed By: #### L 3380.1000, L501.1800, L500.2500, L100.0500, L501.0900, L501.2300 #### [facility] [address] [place], [place], [address] PERFORM Comment Normal . [facility] Comment on above: Order Comment: Speci men Comment: [id number] Comment: No. of containers..01 ThinPrep Vial Result Comment: Jese Bowman, Structural Steel Erection Supervisor (ASCP) Performed By: #### L 3380.1000, L501.1800, L500.2500, L100.0500, L501.0900, L501.2300 #### [facility] [address] [place], [address] Tacrolimus (Prograf)on 05-09 Tacrolimus (Bld) [Mass/Vol] 6.8 ng/mL Normal 2.0-20.0 [facility] Comment on above: Order Comment: ALICE Clark SAID -MINUS THE CALCIUM. MAGALYS SAID SHE WOULD CREDIT THE CALCIUM. I TRIED CALLING BACK. THEY WERE ALL IN MEETINGS --DR. MARIE CALLED PT WITH ANOTHER ORDER (RENAL) WE CAN ADD THIS TO BMP, PLUS ALB AND PHOS. Result Comment: Trou gh (immediately following transplant) 15.0 Trough (steady state, 2 weeks or more after transplant): 3.0 - 8.0 Performed by LC-MS/MS technology. Performed at: [address] [id number] Motor Winder: Amaury Dubois MD, Phone: [phone] Performed By: #### L 3380.1000, L501.1800, L500.2500, L100.0500, L501.0900, L501.2300 #### [facility] [address] [place], [place], [address] Vitamin D 1,25-Dihydroxyon 1 07-10-2023 VIT D 1,25 DIHY 44.8 pg/mL Normal 24.8-81.5 [facility] Comment on above: Result Comment: Perf ormed at: [facility] [address] [id number] Motor Winder: Amaury Dubois MD, Phone: [phone] Performed By: #### L 3380.1000, L501.1800, L500.2500, L100.0500, L501.0900, L501.2300 #### [facility] [address] [place], [address] CBC-Complete Blood Cnt No Di ffon 05-07-2024 Erythrocyte distribution width (RBC) [Ratio] 13.0 % Normal 11.6-14.6 [facility] Comment on above: Performed By: #### L 3380.1000, L501.1800, L500.2500, L100.0500, L501.0900, L501.2300 #### [facility] [address] [place], [address] Hematocrit (Bld) [Volume fraction] 39.6 % Normal 37-47 [facility] Comment on above: Performed By: #### L 3380.1000, L501.1800, L500.2500, L100.0500, L501.0900, L501.2300 #### [facility] [address] [place], [address] Hemoglobin (Bld) [Mass/Vol] 12.7 g/dL Normal 12.0-15.0 [facility] Comment on above: Performed By: #### L 3380.1000, L501.1800, L500.2500, L100.0500, L501.0900, L501.2300 #### [facility] [address] [place], [address] MCH (RBC) [Entitic mass] 29.7 pg Normal 27.0-32.0 [facility] Comment on above: Performed By: #### L 3380.1000, L501.1800, L500.2500, L100.0500, L501.0900, L501.2300 #### [facility] [address] [place], [address] MCHC (RBC) [Mass/Vol] 32.1 g/dL Normal 32-36 [facility] Comment on above: Performed By: #### L 3380.1000, L501.1800, L500.2500, L100.0500, L501.0900, L501.2300 #### [facility] [address] [place], [address] MCV (RBC) [Entitic vol] 92.5 fL Normal 81-99 [facility] Comment on above: Performed By: #### L 3380.1000, L501.1800, L500.2500, L100.0500, L501.0900, L501.2300 #### [facility] [address] [place], [address] Platelet mean volume (Bld) [Entitic vol] 10.4 fL Normal 6.2-12.0 [facility] Comment on above: Performed By: #### L 3380.1000, L501.1800, L500.2500, L100.0500, L501.0900, L501.2300 #### [facility] [address] [place], [address] Platelets (Bld) [#/Vol] 280 10*3/uL Normal 150-450 [facility] Comment on above: Performed By: #### L 3380.1000, L501.1800, L500.2500, L100.0500, L501.0900, L501.2300 #### [facility] [address] [place], [address] RBC (Bld) [#/Vol] 4.28 10*6/uL Normal 4.2-5.4 [facility] Comment on above: Performed By: #### L 3380.1000, L501.1800, L500.2500, L100.0500, L501.0900, L501.2300 #### [facility] [address] [place], [address] RDW SD 43.6 fl Normal 35.1-43.9 [facility] Comment on above: Performed By: #### L 3380.1000, L501.1800, L500.2500, L100.0500, L501.0900, L501.2300 #### [facility] [address] [place], [address] WBC (Bld) [#/Vol] 8.9 10*3/uL Normal 4.4-11.0 [facility] Comment on above: Performed By: #### L 3380.1000, L501.1800, L500.2500, L100.0500, L501.0900, L501.2300 #### [facility] [address] [place], [address] Comprehensive [facility] 05-07-2024 Albumin [Mass/Vol] 3.4 g/dL Normal 3.2-5.0 [facility] Comment on above: Performed By: #### L 3380.1000, L501.1800, L500.2500, L100.0500, L501.0900, L501.2300 #### [facility] [address] [place], [address] Albumin/Globulin [Mass ratio] 1.1 {ratio} Normal 0.9-2.4 [facility] Comment on above: Performed By: #### L 3380.1000, L501.1800, L500.2500, L100.0500, L501.0900, L501.2300 #### [facility] [address] [place], [address] ALK P 98 U/L Normal 45-117 [facility] Comment on above: Performed By: #### L 3380.1000, L501.1800, L500.2500, L100.0500, L501.0900, L501.2300 #### [facility] [address] [place], [address] ALT [Catalytic activity/Vol] 23 U/L Normal 13-56 [facility] Comment on above: Performed By: #### L 3380.1000, L501.1800, L500.2500, L100.0500, L501.0900, L501.2300 #### [facility] [address] [place], [address] AST [Catalytic activity/Vol] 11 U/L Low 15-37 [facility] Comment on above: Performed By: #### L 3380.1000, L501.1800, L500.2500, L100.0500, L501.0900, L501.2300 #### [facility] [address] [place], [address] Bilirubin [Mass/Vol] 0.50 mg/dL Normal 0.20-1.00 [facility] Comment on above: Result Comment: For patients on eltrombopag therapy, use of Dimension Simon TBIL is not recommended. Performed By: #### L 3380.1000, L501.1800, L500.2500, L100.0500, L501.0900, L501.2300 #### [facility] [address] [place], [address] BUN/CRE 22.9 RATIO High 10-20 [facility] Comment on above: Performed By: #### L 3380.1000, L501.1800, L500.2500, L100.0500, L501.0900, L501.2300 #### [facility] [address] [place], [address] CA,Total 11.1 mg/dL High 8.5-10.1 [facility] Comment on above: Performed By: #### L 3380.1000, L501.1800, L500.2500, L100.0500, L501.0900, L501.2300 #### [facility] [address] [place], [address] Chloride [Moles/Vol] 113 mmol/L High 98-107 [facility] Comment on above: Performed By: #### L 3380.1000, L501.1800, L500.2500, L100.0500, L501.0900, L501.2300 #### [facility] [address] [place], [address] CO2 [Moles/Vol] 22.0 mmol/L Normal 21.0-32.0 [facility] Comment on above: Performed By: #### L 3380.1000, L501.1800, L500.2500, L100.0500, L501.0900, L501.2300 #### [facility] [address] [place], [address] Creatinine [Mass/Vol] 1.40 mg/dL High 0.55-1.02 [facility] Comment on above: Result Comment: The validity of the calculated GFR GFRAA in patients over 70 years has not been determined. Clinical correlation is essential. Performed By: #### L 3380.1000, L501.1800, L500.2500, L100.0500, L501.0900, L501.2300 #### [facility] [address] [place], [address] EST GFR - AA 49 mL/min Low >60 [facility] Comment on above: Result Comment: Afri can Greek GFR Calc Performed By: #### L 3380.1000, L501.1800, L500.2500, L100.0500, L501.0900, L501.2300 #### [facility] [address] [place], [address] GAP 6 Normal 5-15 [facility] Comment on above: Performed By: #### L 3380.1000, L501.1800, L500.2500, L100.0500, L501.0900, L501.2300 #### [facility] [address] [place], [address] GFR/1.73 sq M.predicted among non-blacks MDRD (S/P/Bld) [Vol rate/Area] 41 mL/min/{1.73_m2} Low >60 [facility] Comment on above: Result Comment: Non- GFR Calc Performed By: #### L 3380.1000, L501.1800, L500.2500, L100.0500, L501.0900, L501.2300 #### [facility] [address] [place], [address] Globulin (S) [Mass/Vol] 3.0 g/dL Normal 2.2-4.2 [facility] Comment on above: Performed By: #### L 3380.1000, L501.1800, L500.2500, L100.0500, L501.0900, L501.2300 #### [facility] [address] [place], [address] Glucose [Mass/Vol] 116 mg/dL High 74-106 [facility] Comment on above: Result Comment: Fast ing Glucose result from 100 to 125 mg/dL suggests IMPAIRED HOMEOSTASIS per A.D.A. criteria. Performed By: #### L 3380.1000, L501.1800, L500.2500, L100.0500, L501.0900, L501.2300 #### [facility] [address] [place], [address] Potassium [Moles/Vol] 4.3 mmol/L Normal 3.5-5.1 [facility] Comment on above: Performed By: #### L 3380.1000, L501.1800, L500.2500, L100.0500, L501.0900, L501.2300 #### [facility] [address] [place], [address] Sodium [Moles/Vol] 141 mmol/L Normal 136-145 [facility] Comment on above: Performed By: #### L 3380.1000, L501.1800, L500.2500, L100.0500, L501.0900, L501.2300 #### [facility] [address] [place], [address] T PROT 6.4 g/dL Normal 6.4-8.2 [facility] Comment on above: Performed By: #### L 3380.1000, L501.1800, L500.2500, L100.0500, L501.0900, L501.2300 #### [facility] [address] [place], [address] Urea nitrogen [Mass/Vol] 32 mg/dL High 7-18 [facility] Comment on above: Performed By: #### L 3380.1000, L501.1800, L500.2500, L100.0500, L501.0900, L501.2300 #### [facility] [address] [place], [address] Magnesiumon 05-07-2024 Magnesium [Mass/Vol] 1.9 mg/dL Normal 1.6-2.6 [facility] Comment on above: Performed By: #### L 3380.1000, L501.1800, L500.2500, L100.0500, L501.0900, L501.2300 #### [facility] [address] [place], [address] Microalb:Creat Ratio,Random URon 05-07-2024 MALB:CRE TNP Normal <30 mg/g [facility] Comment on above: Performed By: #### L 3380.1000, L501.1800, L500.2500, L100.0500, L501.0900, L501.2300 #### [facility] [address] [place], [place], [id number] MICROALBUMIN,UR < 5.0 Normal NO RANGE EST. [facility] Comment on above: Performed By: #### L 3380.1000, L501.1800, L500.2500, L100.0500, L501.0900, L501.2300 #### [facility] [address] [place], [place], [id number] [employer]ing Grey [employer]oth Tender Office Visit Reporton 05-07-2024 Printing Grey Cloth Tender Office Visit Report [facility] [address], [address] [place] [address] OFFICE VISIT Date of Service: 05/07/24 MR#: [id number] Acct: [id number] Name: CATE FOX Rep #: [id number] : 1960 Provider: SONIDO lantigua Age/Sex: 63/F Location: 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 Date Name GA/Weeks Outcome Route Bth Weight Gen Labor Lgth Anesthesia Del Locatn Provider FOB Unknown Moshe Aguiar HPI Encounter [...] vaginal dis (more content not included)... Normal [facility] PTHINon 05-07-2024 PTH 93.4 pg/mL High 18.4-80.1 [facility] Comment on above: Performed By: #### L 3380.1000, L501.1800, L500.2500, L100.0500, L501.0900, L501.2300 #### [facility] [address] [place], [address] Phosphoruson 05-07-2024 Phosphate [Mass/Vol] 4.3 mg/dL Normal 2.5-4.9 [facility] Comment on above: Performed By: #### L 3380.1000, L501.1800, L500.2500, L100.0500, L501.0900, L501.2300 #### [facility] [address] [place], [address] Protein+Creatinine Ratio,Uri neon 05-07-2024 PROT:CRE RATIO 151 mg/g CRE Normal 0-200 [facility] Comment on above: Performed By: #### L 3380.1000, L501.1800, L500.2500, L100.0500, L501.0900, L501.2300 #### [facility] [address] [place], [address] Protein (U) [Mass/Vol] 6.9 mg/dL Normal <11.9 [facility] Comment on above: Performed By: #### L 3380.1000, L501.1800, L500.2500, L100.0500, L501.0900, L501.2300 #### [facility] [address] [place], [address] UR CREAT 45.80 mg/dL Normal NO RANGE EST. [facility] Comment on above: Performed By: #### L 3380.1000, L501.1800, L500.2500, L100.0500, L501.0900, L501.2300 #### [facility] [address] [place], [address] Uric Acidon 05-07-2024 URIC 5.9 mg/dL Normal 2.6-6.0 [facility] Comment on above: Result Comment: The drugs N-Acetylcysteine and Metamizole may falsely depress this assay. Performed By: #### L 3380.1000, L501.1800, L500.2500, L100.0500, L501.0900, L501.2300 #### [facility] [address] [place], [address] Tacrolimus (Prograf)on 03-17 Tacrolimus (Bld) [Mass/Vol] 6.3 ng/mL Normal 2.0-20.0 [facility] Comment on above: Order Comment: Test( s) 670705-[id number] (FK506), Blood was developed and its performance characteristics determined by [employer]. It has not been cleared or approved by the Food and Drug Administration. Result Comment: Trou gh (immediately following transplant) 15.0 Trough (steady state, 2 weeks or more after transplant): 3.0 - 8.0 Performed by LC-MS/MS technology. Performed at: [address] [id number] Motor Winder: Amaury Dubois MD, Phone: [phone] Performed By: #### L 3380.1000, L501.1800, L500.2500, L100.0500, L501.0900, L501.2300 #### [facility] [address] [place], [place], [address] ([phone]) Basic Metabolic Profile (BMP )on 03-14-2024 BUN/CRE 15.3 RATIO Normal 10-20 [facility] Comment on above: Performed By: #### L 3380.1000, L501.1800, L500.2500, L100.0500, L501.0900, L501.2300 #### [facility] [address] [place], [place], [phone] (533) CA,Total 10.4 mg/dL High 8.5-10.1 [facility] Comment on above: Performed By: #### L 3380.1000, L501.1800, L500.2500, L100.0500, L501.0900, L501.2300 #### [facility] [address] [place], [address] Chloride [Moles/Vol] 114 mmol/L High 98-107 [facility] Comment on above: Performed By: #### L 3380.1000, L501.1800, L500.2500, L100.0500, L501.0900, L501.2300 #### [facility] [address] [place], [address] CO2 [Moles/Vol] 22.0 mmol/L Normal 21.0-32.0 [facility] Comment on above: Performed By: #### L 3380.1000, L501.1800, L500.2500, L100.0500, L501.0900, L501.2300 #### [facility] [address] [place], [address] Creatinine [Mass/Vol] 1.31 mg/dL High 0.55-1.02 [facility] Comment on above: Result Comment: The validity of the calculated GFR GFRAA in patients over 70 years has not been determined. Clinical correlation is essential. Performed By: #### L 3380.1000, L501.1800, L500.2500, L100.0500, L501.0900, L501.2300 #### [facility] [address] [place], [address] EST GFR - AA 53 mL/min Low >60 [facility] Comment on above: Result Comment: Afri can Greek GFR Calc Performed By: #### L 3380.1000, L501.1800, L500.2500, L100.0500, L501.0900, L501.2300 #### [facility] [address] [place], [address] GAP 5 Normal 5-15 [facility] Comment on above: Performed By: #### L 3380.1000, L501.1800, L500.2500, L100.0500, L501.0900, L501.2300 #### [facility] [address] [place], [address] GFR/1.73 sq M.predicted among non-blacks MDRD (S/P/Bld) [Vol rate/Area] 44 mL/min/{1.73_m2} Low >60 [facility] Comment on above: Result Comment: Non- GFR Calc Performed By: #### L 3380.1000, L501.1800, L500.2500, L100.0500, L501.0900, L501.2300 #### [facility] [address] [place], [address] Glucose [Mass/Vol] 108 mg/dL High 74-106 [facility] Comment on above: Result Comment: Fast ing Glucose result from 100 to 125 mg/dL suggests IMPAIRED HOMEOSTASIS per A.D.A. criteria. Performed By: #### L 3380.1000, L501.1800, L500.2500, L100.0500, L501.0900, L501.2300 #### [facility] [address] [place], [address] Potassium [Moles/Vol] 4.4 mmol/L Normal 3.5-5.1 [facility] Comment on above: Performed By: #### L 3380.1000, L501.1800, L500.2500, L100.0500, L501.0900, L501.2300 #### [facility] [address] [place], [address] Sodium [Moles/Vol] 141 mmol/L Normal 136-145 [facility] Comment on above: Performed By: #### L 3380.1000, L501.1800, L500.2500, L100.0500, L501.0900, L501.2300 #### [facility] [address] [place], [address] Urea nitrogen [Mass/Vol] 20 mg/dL High 7-18 [facility] Comment on above: Performed By: #### L 3380.1000, L501.1800, L500.2500, L100.0500, L501.0900, L501.2300 #### [facility] [address] [place], [address] CBC W/Diff, Automatedon 10-0 9-2023 Absolute Lymph 0.91 X10 3/uL Normal 0.83-4.51 [facility] Comment on above: Performed By: #### L 3380.1000, L501.1800, L500.2500, L100.0500, L501.0900, L501.2300 #### [facility] [address] [place], [address] Absolute Neut 5.6 X10 3/uL Normal 2.0-7.7 [facility] Comment on above: Performed By: #### L 3380.1000, L501.1800, L500.2500, L100.0500, L501.0900, L501.2300 #### [facility] [address] [place], [address] Basophils/100 WBC (Bld) 1.2 % High 0-1 [facility] Comment on above: Performed By: #### L 3380.1000, L501.1800, L500.2500, L100.0500, L501.0900, L501.2300 #### [facility] [address] [place], [address] Eosinophils/100 WBC (Bld) 2.5 % Normal 0-5 [facility] Comment on above: Performed By: #### L 3380.1000, L501.1800, L500.2500, L100.0500, L501.0900, L501.2300 #### [facility] [address] [place], [address] Erythrocyte distribution width (RBC) [Ratio] 13.2 % Normal 11.6-14.6 [facility] Comment on above: Performed By: #### L 3380.1000, L501.1800, L500.2500, L100.0500, L501.0900, L501.2300 #### [facility] [address] [place], [address] Hematocrit (Bld) [Volume fraction] 41.0 % Normal 37-47 [facility] Comment on above: Performed By: #### L 3380.1000, L501.1800, L500.2500, L100.0500, L501.0900, L501.2300 #### [facility] [address] [place], [address] Hemoglobin (Bld) [Mass/Vol] 12.9 g/dL Normal 12.0-15.0 [facility] Comment on above: Performed By: #### L 3380.1000, L501.1800, L500.2500, L100.0500, L501.0900, L501.2300 #### [facility] [address] [place], [address] IG% 0.300 Normal 0.0-0.9 [facility] Comment on above: Result Comment: IG% - Immature Granulocytes (promyelocytes, myelocytes and metamyelocytes) > 1% indicates that a LEFT SHIFT is Present. Performed By: #### L 3380.1000, L501.1800, L500.2500, L100.0500, L501.0900, L501.2300 #### [facility] [address] [place], [address] Lymphocytes/100 WBC (Bld) 12.1 % Low 19-41 [facility] Comment on above: Performed By: #### L 3380.1000, L501.1800, L500.2500, L100.0500, L501.0900, L501.2300 #### [facility] [address] [place], [address] MCH (RBC) [Entitic mass] 29.4 pg Normal 27.0-32.0 [facility] Comment on above: Performed By: #### L 3380.1000, L501.1800, L500.2500, L100.0500, L501.0900, L501.2300 #### [facility] [address] [place], [address] MCHC (RBC) [Mass/Vol] 31.5 g/dL Low 32-36 [facility] Comment on above: Performed By: #### L 3380.1000, L501.1800, L500.2500, L100.0500, L501.0900, L501.2300 #### [facility] [address] [place], [address] MCV (RBC) [Entitic vol] 93.4 fL Normal 81-99 [facility] Comment on above: Performed By: #### L 3380.1000, L501.1800, L500.2500, L100.0500, L501.0900, L501.2300 #### [facility] [address] [place], [address] Monocytes/100 WBC (Bld) 8.8 % Normal 0-10 [facility] Comment on above: Performed By: #### L 3380.1000, L501.1800, L500.2500, L100.0500, L501.0900, L501.2300 #### [facility] [address] [place], [address] Neutrophils/100 WBC (Bld) 75.1 % High 47-70 [facility] Comment on above: Performed By: #### L 3380.1000, L501.1800, L500.2500, L100.0500, L501.0900, L501.2300 #### [facility] [address] [place], [address] Nucleated RBC (Bld) [#/Vol] 0 10*3/uL Normal 0-5 [facility] Comment on above: Performed By: #### L 3380.1000, L501.1800, L500.2500, L100.0500, L501.0900, L501.2300 #### [facility] [address] [place], [address] Platelet mean volume (Bld) [Entitic vol] 11.2 fL Normal 6.2-12.0 [facility] Comment on above: Performed By: #### L 3380.1000, L501.1800, L500.2500, L100.0500, L501.0900, L501.2300 #### [facility] [address] [place], [address] Platelets (Bld) [#/Vol] 250 10*3/uL Normal 150-450 [facility] Comment on above: Performed By: #### L 3380.1000, L501.1800, L500.2500, L100.0500, L501.0900, L501.2300 #### [facility] [address] [place], [address] RBC (Bld) [#/Vol] 4.39 10*6/uL Normal 4.2-5.4 [facility] Comment on above: Performed By: #### L 3380.1000, L501.1800, L500.2500, L100.0500, L501.0900, L501.2300 #### [facility] [address] [place], [address] RDW SD 45.1 fl High 35.1-43.9 [facility] Comment on above: Performed By: #### L 3380.1000, L501.1800, L500.2500, L100.0500, L501.0900, L501.2300 #### [facility] [address] [place], [address] WBC (Bld) [#/Vol] 7.5 10*3/uL Normal 4.4-11.0 [facility] Comment on above: Performed By: #### L 3380.1000, L501.1800, L500.2500, L100.0500, L501.0900, L501.2300 #### [facility] [address] [place], [address] Vitamin D,25 Hydroxyon 03-14 Vitamin D 25-OH 60.5 ng/mL Normal [facility] Comment on above: Order Comment: ALICE Clark SAID -MINUS THE CALCIUM. MAGALYS SAID SHE WOULD CREDIT THE CALCIUM. I TRIED CALLING BACK. THEY WERE ALL IN MEETINGS --DR. MARIE CALLED PT WITH ANOTHER ORDER (RENAL) WE CAN ADD THIS TO BMP, PLUS ALB AND PHOS. Result Comment: Kelly min D 25(OH) Status Range Deficiency <20 ng/mL (50nmol/L) Insufficiency 20 - 30 ng/mL (50 - 75 nmol/L) Sufficiency 30 - 100 ng/mL (75 - 250 nmol/L) Toxicity >100 ng/mL (>250 nmol/L) Performed By: #### L 3380.1000, L501.1800, L500.2500, L100.0500, L501.0900, L501.2300 #### [facility] [address] [place], [address] Internal Medicine Office Vis iton 01-28-2024 Internal Medicine Office Visit [facility] [address] [place] [address] [place] [address] OFFICE VISIT Date of Service: 01/28/24 MR#: [id number] Acct: [id number] Name: CATE FOX Rep #: [id number] : 1960 Provider: SONIDO salcedo Age/Sex: 63/F Location: [facility] [place] Status: Signed Intake Vital Signs 05/25/23 10:02 01/28/24 09:42 Height 5 ft 5 ft Weight: 195 lb BMI 38.0 BP 116/68 Blood Pressure Location Rt brachial Position Sitting Respiration 17 Pulse 79 Pulse Source NIBP Temp 98.7 F Temp Source Temporal Pulse Oximetry (%) 97 Oxygen Delivery Method room air Intake Visit Reasons: SORE THROAT, CONGESTION Chief Complaint: cough, congestion Acquisitions Analyst Required: No Is patient in pain?: No [...] in the past year?: No Nurse's Note: WERNER, cough, congestion x 5 days. concern for covid PFSH Medical History (Updated 01/28/24 @ 10:22 by Irma Mac, SKEIN DRIER-C) COVID-19 Wears glasses Wears partial dentures Wears [...] safe at home: Yes additional social history: Htqkich-Ogmvih-Ikxid Rite HPI HPI Chief Complaint: cough, congestion Details: CATE FOX, is a 63 F who presents [...] dentition nor (more content not included)... Normal [facility] HIP, UNI W/ Pelvis 2-3 Views on 12-29-2023 HIP, UNI W/ Pelvis 2-3 Views [facility] [address], [place] [address] HIP, UNI W/ Pelvis 2-3 Views MR#: [id number] Acct: [id number] Name: CATE FOX Rep #: [id number] : 1960 F 63 From: Marcel Kahn MD PCP: Dr. 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 cPRA calculation based on identification of HLA antibody specificities at MFI >2000 and/or presence of CREG antibodies. [facility] Comment on above: Some of the reagents used for testing in the Clinical Histocompatibility Laboratory have yet to be approved by the FDA. Our certification by CLIA to perform high complexity tests allows us to use these reagents in the context of a stringent QC program, and obviates the need for FDA approval.Testing performed by the [facility] Clinical Histocompatibility Laboratory. [facility] number: [id number]. CLIA number: [id number], Director: Lawson Christianson, PhD, F([facility]). ANTIBODY SPECIFICITY INTERPRETATION Detected [facility] CLASS I SPECIFICITIES A:2 68 69 [facility] CLASS II SPECIFICITIES Not detected [facility] HLA Ab (S) 54 % High 0 [facility] Interpretation and review of laboratory results Abnormal [facility] BK VIRUS DNA QN, PCR, PLASMA Ordered By: Estephania Kwok on 09-15-2023 BK virus DNA NORA+probe Qn NINF [facility] Interpretation and review of laboratory results Normal [facility] This test was perfor med using a real time PCR assay. The dynamic range for this assay is 500-5,000,000 copies/mL. This test was developed and its performance characteristics determined by The [facility] at [facility]. It has not been cleared or approved by the FDA. The laboratory is regulated under CLIA as qualified to perform high-complexity testing. This test is used for clinical purposes. It should not be regarded as investigational or for research. [facility] CHEM 7 (LYTES,BUN,CREA,GLUC) on 09-14-2023 Anion gap [Moles/Vol] 13 mmol/L 7 - 17 mmol/L [facility] Chloride [Moles/Vol] 110 mmol/L High 98 - 10 8 mmol/L [facility] CO2 [Moles/Vol] 24 mmol/L 21 - 31 mmol/L [facility] Creatinine [Mass/Vol] 1.09 mg/dL 0.50 - 1.20 mg/dL [facility] eGFR, CKD-EPI, Female 60 Low - PINF [facility] Comment on above: Reported eGFR is bas ed on the CKD-EPI 2020 equation using creatinine, age, and sex. Glucose [Mass/Vol] 111 mg/dL High 70 - 99 mg/dL [facility] Interpretation and review of laboratory results Abnormal [facility] Osmolality Calc [Osmolality] 302 [facility] Potassium [Moles/Vol] 5.2 mmol/L High 3.5 - 5.0 mmol/L [facility] Sodium [Moles/Vol] 142 mmol/L 135 - 145 mmol/L [facility] Urea nitrogen [Mass/Vol] 21 mg/dL 7 - 25 mg/dL [facility] Urea nitrogen/Creatinine [Mass ratio] 19 mg/mg [facility] URINE PROTEIN/CREA RATIO, RA ELAINEOMon 09-14-2023 Creatinine (24H U) [Mass/Vol] 71.79 mg/dL [facility] Protein Unsp time (U) [Mass/Vol] 7 mg/dL [facility] Protein/Creatinine (U) [Mass ratio] 0.098 mg/mg [facility] Basophil percentageon 2023 Chloride [Moles/Vol] 114 mmol/L 98-107 [facility] Glucose [Mass/Vol] 111 mg/dL 74-106 [facility] Comment on above: Fasting Glucose resu lt from 100 to 125 mg/dL suggests IMPAIRED HOMEOSTASIS per A.D.A. criteria. Potassium [Moles/Vol] 4.7 mmol/L 3.5-5.1 [facility] Sodium [Moles/Vol] 138 mmol/L 136-145 [facility] - Chemistry and C hemistry - challengeon 07-28-2023 CO2 [Moles/Vol] 21.0 mmol/L 21.0-32.0 [facility] Urea nitrogen/Creatinine [Mass ratio] 19.4 mg/mg 10-20 [facility] No Panel Informationon 07-28 Estimated GFR (MDRD) Amer 50 mL/min >60 [facility] Comment on above: GFR Calc Estimated GFR (MDRD) Non-Af Amer 41 mL/min >60 [facility] Comment on above: Non- GFR Calc Miscellaneous Test See comment [facility] Comment on above: Sent directly to [facility] facility per ordering physician. Serum or plasma calcium osei urement (mass/volume)on 07-28-2023 Calcium [Mass/Vol] 9.8 mg/dL 8.5-10.1 [facility] Serum or plasma creatinine m easurement (mass/volume)on 07-28-2023 Creatinine [Mass/Vol] 1.39 mg/dL 0.55-1.02 [facility] Comment on above: The validity of the calculated GFR & GFRAA in patients over 70 years has not been determined. Clinical correlation is essential. Serum or plasma urea nitroge n measurement (mass/volume)on 07-28-2023 Urea nitrogen [Mass/Vol] 27 mg/dL 7-18 [facility] Thin prep Papanicolaou smear with manual screeningon 07-28-2023 Protein (U) [Mass/Vol] 9.2 mg/dL 0.0-11.8 [facility] Thin prep Papanicolaou smear with manual screening 3 5-15 [facility] Urine creatinine measurement (mass/volume)on 07-28-2023 Creatinine (U) [Mass/Vol] 77.00 mg/dL NO RANGE EST. [facility] Urine protein/creatinine mas s ratioon 07-28-2023 Protein/Creatinine (U) [Mass ratio] 119 mg/g CRE 0-200 [facility] Absolute lymphocyte counton 07-12-2023 Lymphocytes Auto (Unsp spec) [#/Vol] 0.95 10*3/uL 0.83-4.51 [facility] Automated lymphocyte count a s percentage of total leukocyteson 07-12-2023 Lymphocytes/100 WBC Auto (Unsp spec) 13.1 % 19-41 [facility] Basophil percentageon 2023 Basophils/100 WBC (Bld) 1.2 % 0-1 [facility] Bilirubin [Mass/Vol] 0.40 mg/dL 0.20-1.00 [facility] Comment on above: For patients on eltr ombopag therapy, use of Dimension Simon TBIL is not recommended. Chloride [Moles/Vol] 114 mmol/L 98-107 [facility] Eosinophils/100 WBC (Bld) 3.3 % 0-5 [facility] Glucose [Mass/Vol] 97 mg/dL 74-106 [facility] Hemoglobin (Bld) [Mass/Vol] 13.2 g/dL 12.0-15.0 [facility] Monocytes/100 WBC (Bld) 8.5 % 0-10 [facility] Neutrophils (Bld) [#/Vol] 5.3 10*3/uL 2.0-7.7 [facility] Neutrophils/100 WBC (Bld) 73.6 % 47-70 [facility] Potassium [Moles/Vol] 4.5 mmol/L 3.5-5.1 [facility] Protein [Mass/Vol] 6.6 g/dL 6.4-8.2 [facility] Sodium [Moles/Vol] 139 mmol/L 136-145 [facility] WBC (Bld) [#/Vol] 7.3 10*3/uL 4.4-11.0 [facility] Determination of erythrocyte mean corpuscular volume (MCV)on 07-12-2023 MCV (RBC) [Entitic vol] 92.9 fL 81-99 [facility] Erythrocyte distribution wid th ratioon 07-12-2023 Erythrocyte distribution width (RBC) [Ratio] 13.1 % 11.6-14.6 [facility] Erythrocyte distribution wid th standard deviationon 07-12-2023 Erythrocyte distribution width (RBC) [Entitic vol] 44.4 fL 35.1-43.9 [facility] Hematocrit Auto (Bld) [Volum e fraction]on 07-12-2023 Hematocrit (Bld) [Volume fraction] 41.8 % 37-47 [facility] Immature granulocytes/100 WB C Auto (Bld)on 07-12-2023 Immature granulocytes/100 WBC (Bld) 0.300 % 0.0-0.9 [facility] Comment on above: IG% - Immature Granu locytes (promyelocytes, myelocytes and metamyelocytes) > 1% indicates that a LEFT SHIFT is Present. Laboratory - Chemistry and C hemistry - challengeon 07-12-2023 Albumin/Globulin [Mass ratio] 1.2 {ratio} 0.9-2.4 [facility] ALP [Catalytic activity/Vol] 94 U/L 45-117 [facility] ALT [Catalytic activity/Vol] 26 U/L 13-56 [facility] CO2 [Moles/Vol] 23.0 mmol/L 21.0-32.0 [facility] Globulin (S) [Mass/Vol] 3.0 g/dL 2.2-4.2 [facility] Urea nitrogen/Creatinine [Mass ratio] 18.8 mg/mg 10-20 [facility] Laboratory - Hematology and Cell countson 07-12-2023 MCH (RBC) [Entitic mass] 29.3 pg 27.0-32.0 [facility] MCHC (RBC) [Mass/Vol] 31.6 g/dL 32-36 [facility] Nucleated RBC/100 WBC (Bld) [Ratio] 0 % 0-5 [facility] Platelet mean volume (Bld) [Entitic vol] 10.4 fL 6.2-12.0 [facility] Platelets (Bld) [#/Vol] 299 10*3/uL 150-450 [facility] No Panel Informationon 07-12 Estimated GFR (MDRD) Amer 52 mL/min >60 [facility] Comment on above: GFR Calc Estimated GFR (MDRD) Non-Af Amer 43 mL/min >60 [facility] Comment on above: Non- GFR Calc Tacrolimus (Prograf) Level 5.7 ng/mL 2.0-20.0 [facility] Comment on above: Trough (immediately following transplant) 15.0 Trough (steady state, 2 weeks or more after transplant): 3.0 - 8.0 Performed by LC-MS/MS technology.Performed at: [facility] [id number] Director: Amaury Dubois MD, Phone: [phone] RBC Auto (Bld) [#/Vol]on RBC (Bld) [#/Vol] 4.50 10*6/uL 4.2-5.4 [facility] Serum or plasma calcium osei urement (mass/volume)on 07-12-2023 Calcium [Mass/Vol] 10.0 mg/dL 8.5-10.1 [facility] Serum or plasma creatinine m easurement (mass/volume)on 07-12-2023 Creatinine [Mass/Vol] 1.33 mg/dL 0.55-1.02 [facility] Comment on above: The validity of the calculated GFR & GFRAA in patients over 70 years has not been determined. Clinical correlation is essential. Serum or plasma urea nitroge n measurement (mass/volume)on 07-12-2023 Urea nitrogen [Mass/Vol] 25 mg/dL 7-18 [facility] Thin prep Papanicolaou smear with manual screeningon 07-12-2023 Thin prep Papanicolaou smear with manual screening 3.6 g/dL 3.2-5.0 [facility] Thin prep Papanicolaou smear with manual screening 16 U/L 15-37 [facility] Thin prep Papanicolaou smear with manual screening 2 5-15 [facility] Basophil percentageOrdered B y: Krzysztof Wu on 06-23-2023 Basophil percentage 2.1 mg/dL 2.5-4.9 [facility] Chloride [Moles/Vol] 113 mmol/L 98-107 [facility] Glucose [Mass/Vol] 102 mg/dL 74-106 [facility] Comment on above: Fasting Glucose resu lt from 100 to 125 mg/dL suggests IMPAIRED HOMEOSTASIS per A.D.A. criteria. Potassium [Moles/Vol] 4.8 mmol/L 3.5-5.1 [facility] Sodium [Moles/Vol] 140 mmol/L 136-145 [facility] - Chemistry and C hemistry - challengeOrdered By: Krzysztof Wu on 06-23-2023 CO2 [Moles/Vol] 24.0 mmol/L 21.0-32.0 [facility] Urea nitrogen/Creatinine [Mass ratio] 12.8 mg/mg 10-20 [facility] No Panel InformationOrdered By: Krzysztof Wu on 06-23-2023 Estimated GFR (MDRD) Amer 52 mL/min >60 [facility] Comment on above: GFR Calc Estimated GFR (MDRD) Non-Af Amer 43 mL/min >60 [facility] Comment on above: Non- GFR Calc Tacrolimus (Prograf) Level 6.5 ng/mL 2.0-20.0 [facility] Comment on above: Trough (immediately following transplant) 15.0 Trough (steady state, 2 weeks or more after transplant): 3.0 - 8.0 Performed by LC-MS/MS technology.Performed at: [facility] [employer] [id number] Director: Amaury Dubois MD, Phone: [phone] Serum or plasma calcium osei urement (mass/volume)Ordered By: Krzysztof Wu on 06-23-2023 Calcium [Mass/Vol] 10.3 mg/dL 8.5-10.1 [facility] Serum or plasma creatinine m easurement (mass/volume)Ordered By: Krzysztof Wu on 06-23-2023 Creatinine [Mass/Vol] 1.33 mg/dL 0.55-1.02 [facility] Comment on above: The validity of the calculated GFR & GFRAA in patients over 70 years has not been determined. Clinical correlation is essential. Serum or plasma urea nitroge n measurement (mass/volume)Ordered By: Krzysztof Wu on 06-23-2023 Urea nitrogen [Mass/Vol] 17 mg/dL - [facility] Thin prep Papanicolaou smear with manual screeningOrdered By: [facility]asha on 06-23-2023 Thin prep Papanicolaou smear with manual screening 3.6 g/dL 3.2-5.0 [facility] Basophil percentageOrdered B y: Gopalericka Wu on 06-02-2023 Basophil percentage 1.9 mg/dL 2.5-4.9 [facility] Chloride [Moles/Vol] 112 mmol/L 98-107 [facility] Glucose [Mass/Vol] 117 mg/dL 74-106 [facility] Comment on above: Fasting Glucose resu lt from 100 to 125 mg/dL suggests IMPAIRED HOMEOSTASIS per A.D.A. criteria. Potassium [Moles/Vol] 4.5 mmol/L 3.5-5.1 [facility] Sodium [Moles/Vol] 141 mmol/L 136-145 [facility] WBC (Bld) [#/Vol] 7.3 10*3/uL 4.4-11.0 [facility] Blood erythrocytes count (nu mber/volume)Ordered By: [facility] on 06-02-2023 RBC (Bld) [#/Vol] 4.57 10*6/uL 4.2-5.4 [facility] Blood hemoglobin measurement (mass/volume)Ordered By: Krzysztof Wu on 06-02-2023 Hemoglobin (Bld) [Mass/Vol] 13.3 g/dL 12.0-15.0 [facility] Blood platelet mean volumeOr dered By: Gopalericka Wu on 06-02-2023 Platelet mean volume (Bld) [Entitic vol] 10.0 fL 6.2-12.0 [facility] Determination of erythrocyte mean corpuscular volume (MCV)Ordered By: Krzysztof Wu on 06-02-2023 MCV (RBC) [Entitic vol] 93.7 fL 81-99 [facility] Hematocrit Auto (Bld) [Volum e fraction]Ordered By: [facility]heresa Wu on 06-02-2023 Hematocrit (Bld) [Volume fraction] 42.8 % 37-47 [facility] Iron measurement (mass/mass) Ordered By: Gopalericka Wu on 06-02-2023 Iron (Unsp spec) [Mass/Mass] 92 ug/dL 50-170 [facility] Laboratory - Chemistry and C hemistry - challengeOrdered By: Gopalericka Wu on 06-02-2023 CO2 [Moles/Vol] 25.0 mmol/L 21.0-32.0 [facility] Magnesium [Mass/Vol] 1.8 mg/dL 1.6-2.6 [facility] Urea nitrogen/Creatinine [Mass ratio] 17.3 mg/mg 10-20 [facility] Laboratory - Hematology and Cell countsOrdered By: [facility] on 06-02-2023 Erythrocyte distribution width (RBC) [Entitic vol] 45.2 fL 35.1-43.9 [facility] Erythrocyte distribution width (RBC) [Ratio] 13.2 % 11.6-14.6 [facility] MCH (RBC) [Entitic mass] 29.1 pg 27.0-32.0 [facility] MCHC Auto (RBC) [Mass/Vol]Or dered By: Krzysztof Wu on 06-02-2023 MCHC (RBC) [Mass/Vol] 31.1 g/dL 32-36 [facility] No Panel InformationOrdered By: Krzysztof Wu on 06-02-2023 Urine Microalbumin/Creatini ne Ratio 8.9 mg/g CRE <30 [facility] Estimated GFR (MDRD) Amer 50 mL/min >60 [facility] Comment on above: GFR Calc Estimated GFR (MDRD) Non-Af Amer 41 mL/min >60 [facility] Comment on above: Non- GFR Calc Parathyroid Hormone (Intact) 347.0 pg/mL 18.4-80.1 [facility] Tacrolimus (Prograf) Level 19.9 ng/mL 2.0-20.0 [facility] Comment on above: Trough (immediately following transplant) 15.0 Trough (steady state, 2 weeks or more after transplant): 3.0 - 8.0 Performed by LC-MS/MS technology.Performed at: [employer] [id number] Director: Amaury Dubois MD, Phone: [phone] Total Iron Binding Capacity 238 ug/dL 250-450 [facility] Vitamin D 25-Hydroxy 11.9 ng/mL [facility] Comment on above: Vitamin D 25(OH) Sta tus Range Deficiency <20 ng/mL (50nmol/L) Insufficiency 20 - 30 ng/mL (50 - 75 nmol/L) Sufficiency 30 - 100 ng/mL (75 - 250 nmol/L) Toxicity >100 ng/mL (>250 nmol/L) Platelets bldOrdered By: Gopal Wu on 06-02-2023 Platelets (Bld) [#/Vol] 322 10*3/uL 150-450 [facility] Serum or plasma albumin osei urement (mass/volume)Ordered By: Krzysztof Wu on 06-02-2023 Albumin [Mass/Vol] 3.5 g/dL 3.2-5.0 [facility] Serum or plasma calcium osei urement (mass/volume)Ordered By: Krzysztof Wu on 06-02-2023 Calcium [Mass/Vol] 9.5 mg/dL 8.5-10.1 [facility] Serum or plasma creatinine m easurement (mass/volume)Ordered By: Krzysztof Wu on 06-02-2023 Creatinine [Mass/Vol] 1.39 mg/dL 0.55-1.02 [facility] Comment on above: The validity of the calculated GFR & GFRAA in patients over 70 years has not been determined. Clinical correlation is essential. Serum or plasma ferritin ace surement (mass/volume)Ordered By: Krzysztof Wu on 06-02-2023 Ferritin [Mass/Vol] 1345 ng/mL 8-252 [facility] Serum or plasma iron saturat ion measurement (mass fraction)Ordered By: Gopalericka Wu on 06-02-2023 Iron saturation [Mass fraction] 38.7 % 15.0-55.0 [facility] Serum or plasma urea nitroge n measurement (mass/volume)Ordered By: Krzysztof Wu on 06-02-2023 Urea nitrogen [Mass/Vol] 24 mg/dL 7-18 [facility] Serum or plasma uric acid me asurement (mass/volume)Ordered By: [facility]theresa Damonprov[facility] hospitalromeo on 06-02-2023 Urate [Mass/Vol] 5.0 mg/dL 2.6-6.0 [facility] Comment on above: The drugs N-Acetylcy steine and Metamizole may falsely depress this assay. Thin prep Papanicolaou smear with manual screeningOrdered By: Krzysztof Wu on 06-02-2023 Thin prep Papanicolaou smear with manual screening 10.0 mg/L NO RANGE EST. [facility] Urine creatinine measurement (mass/volume)Ordered By: [facility]a Wu on 06-02-2023 Creatinine (U) [Mass/Vol] 112.00 mg/dL NO RANGE EST. [facility] Urine protein measurement (m ass/volume)Ordered By: [facility] on 06-02-2023 Protein (U) [Mass/Vol] 16.0 mg/dL 0.0-11.8 [facility] Urine protein/creatinine mas s ratioOrdered By: [facility] on 06-02-2023 Protein/Creatinine (U) [Mass ratio] 143 mg/g CRE 0-200 [facility] Basophil percentageon 2022 Basophil percentage 1.9 mg/dL 2.5-4.9 [facility] Bilirubin [Mass/Vol] 0.40 mg/dL 0.20-1.00 [facility] Comment on above: For patients on eltr ombopag therapy, use of Dimension Simon TBIL is not recommended. Chloride [Moles/Vol] 112 mmol/L 98-107 [facility] Cholesterol [Mass/Vol] 158 mg/dL <200 [facility] Comment on above: <200 mg/dL Desirable 200-240 mg/dL Borderline >240 mg/dL High Risk Glucose [Mass/Vol] 109 mg/dL 74-106 [facility] Comment on above: Fasting Glucose resu lt from 100 to 125 mg/dL suggests IMPAIRED HOMEOSTASIS per A.D.A. criteria. Potassium [Moles/Vol] 4.5 mmol/L 3.5-5.1 [facility] Protein [Mass/Vol] 6.6 g/dL 6.4-8.2 [facility] Sodium [Moles/Vol] 141 mmol/L 136-145 [facility] Triglyceride [Mass/Vol] 80 mg/dL <199 [facility] Comment on above: The drugs N-Acetylcy steine and Metamizole may falsely depress this assay.Serum Triglycerides Reference Interval Normal <150 mg/dL Borderline high 150 - 199 mg/dL High 200 - 499 mg/dL Very High > or = 500 mg/dL WBC (Bld) [#/Vol] 6.8 10*3/uL 4.4-11.0 [facility] Blood erythrocytes count (nu mber/volume)on 05-16-2023 RBC (Bld) [#/Vol] 4.54 10*6/uL 4.2-5.4 [facility] Blood hemoglobin measurement (mass/volume)on 05-16-2023 Hemoglobin (Bld) [Mass/Vol] 13.1 g/dL 12.0-15.0 [facility] Blood platelet mean volumeon 05-16-2023 Platelet mean volume (Bld) [Entitic vol] 10.2 fL 6.2-12.0 [facility] Determination of erythrocyte mean corpuscular volume (MCV)on 05-16-2023 MCV (RBC) [Entitic vol] 93.8 fL 81-99 [facility] Direct bilirubinon 3 Bilirubin.direct [Mass/Vol] 0.14 mg/dL 0.00-0.30 [facility] Hematocrit Auto (Bld) [Volum e fraction]on 05-16-2023 Hematocrit (Bld) [Volume fraction] 42.6 % 37-47 [facility] Laboratory - Chemistry and C hemistry - challengeon 05-16-2023 ALP [Catalytic activity/Vol] 95 U/L 45-117 [facility] ALT [Catalytic activity/Vol] 23 U/L 13-56 [facility] Amylase [Catalytic activity/Vol] 31 U/L 5-55 [facility] CO2 [Moles/Vol] 26.0 mmol/L 21.0-32.0 [facility] Globulin (S) [Mass/Vol] 3.4 g/dL 2.2-4.2 [facility] Urea nitrogen/Creatinine [Mass ratio] 17.5 mg/mg 10-20 [facility] Laboratory - Hematology and Cell countson 05-16-2023 Erythrocyte distribution width (RBC) [Entitic vol] 46.5 fL 35.1-43.9 [facility] Erythrocyte distribution width (RBC) [Ratio] 13.7 % 11.6-14.6 [facility] MCH (RBC) [Entitic mass] 28.9 pg 27.0-32.0 [facility] MCHC Auto (RBC) [Mass/Vol]on 05-16-2023 MCHC (RBC) [Mass/Vol] 30.8 g/dL 32-36 [facility] No Panel Informationon 05-16 Estimated GFR (MDRD) Amer 62 mL/min >60 [facility] Comment on above: GFR Calc Estimated GFR (MDRD) Non-Af Amer 52 mL/min >60 [facility] Comment on above: Non- GFR Calc Tacrolimus (Prograf) Level 5.9 ng/mL 2.0-20.0 [facility] Comment on above: Trough (immediately following transplant) 15.0 Trough (steady state, 2 weeks or more after transplant): 3.0 - 8.0 Performed by LC-MS/MS technology.Performed at: [employer] [address] [id number] Director: Amaury Dubois MD, Phone: [phone] Platelets bldon 05-16-2023 Platelets (Bld) [#/Vol] 282 10*3/uL 150-450 [facility] Serum or plasma albumin osei urement (mass/volume)on 05-16-2023 Albumin [Mass/Vol] 3.2 g/dL 3.2-5.0 [facility] Serum or plasma albumin/glob ulin mass ratioon 05-16-2023 Albumin/Globulin [Mass ratio] 0.9 {ratio} 0.9-2.4 [facility] Serum or plasma calcium osei urement (mass/volume)on 05-16-2023 Calcium [Mass/Vol] 10.1 mg/dL 8.5-10.1 [facility] Serum or plasma cholesterol in HDL measurement (mass/volume)on 05-16-2023 Cholesterol in HDL [Mass/Vol] 74 mg/dL >40 [facility] Comment on above: The drugs N-Acetylcy steine and Metamizole may falsely depress this assay. Reference Range HDL <40 mg/dL Low HDL Cholesterol HDL >or= 60 mg/dL High HDL Cholesterol Serum or plasma cholesterol in VLDL measurement (mass/volume)on 05-16-2023 Cholesterol in VLDL [Mass/Vol] 16 mg/dL 5-40 [facility] Serum or plasma creatinine m easurement (mass/volume)on 05-16-2023 Creatinine [Mass/Vol] 1.14 mg/dL 0.55-1.02 [facility] Comment on above: The validity of the calculated GFR & GFRAA in patients over 70 years has not been determined. Clinical correlation is essential. Serum or plasma low density lipoprotein (LDL) cholesterol measurement (mass/volume)on 05-16-2023 Cholesterol in LDL [Mass/Vol] 68 mg/dL 0-130 [facility] Serum or plasma urea nitroge n measurement (mass/volume)on 05-16-2023 Urea nitrogen [Mass/Vol] 20 mg/dL 7-18 [facility] Thin prep Papanicolaou smear with manual screeningon 05-16-2023 Thin prep Papanicolaou smear with manual screening 12 U/L 15-37 [facility] Thin prep Papanicolaou smear with manual screening 3 5-15 [facility] Urine creatinine measurement (mass/volume)on 05-16-2023 Creatinine (U) [Mass/Vol] 86.30 mg/dL NO RANGE EST. [facility] Urine protein measurement (m ass/volume)on 05-16-2023 Protein (U) [Mass/Vol] 24.3 mg/dL 0.0-11.8 [facility] Urine protein/creatinine mas s ratioon 05-16-2023 Protein/Creatinine (U) [Mass ratio] 282 mg/g CRE 0-200 [facility] Cervical or vagninal specime n microscopic examination by cytology stain (reported asOrdered By: Debra Astudillo on 05-03-2023 Cytology report Cyto stain Doc (Cvx/Vag) Comment . [facility] Comment on above: The Pap smear is [...] DNA Probe+sig amp Ql (Cvx) Negative Negative [facility] Comment on above: This nucleic acid am plification test detects fourteen high- risk HPV types (16,18,31,33,35,39,45,51,52,56,58,59,66,68)without differentiation. Laboratory - CytologyOrdered By: Debra Astudillo on 05-03-2023 [employer] Cyto stain Nom (Cvx/Vag) [ID] Comment . [facility] Comment on above: Flaquita Breaux, [employer] hnologist (ASCP) Laboratory - Miscellaneous t estsOrdered By: Debra Astudillo on 05-03-2023 Service comment (Unsp spec) [Interp] Comment . [facility] Comment on above: This liquid based Th inPrep(R) pap test was screened withthe use of an image guided system. Service comment (Unsp spec) [Interp] . . [facility] Liquid-based cerv Pap + CT/G C by NORA w reflex to high-risk HPV for ASCUSOrdered By: Debra Astudillo on 05-03-2023 Cytology report Cyto stain.thin prep Doc (Cvx/Vag) Comment . [facility] Comment on above: Criteria not met, HP V Genotype not performed.Performed at: [facility] [id number] [place], [place] [id number] Director: Tom Sky MD, Phone: [phone] at: [facility] - [facility] [id number] Director: Prabha Deras MD, Phone: [phone] at: =G - [facility] [address], [place] [id number] Director: Prabha Deras MD, Phone: [phone] No Panel InformationOrdered By: Debra Astudillo on 05-03-2023 Pathology report final diagnosis Narrative Comment . [facility] Comment on above: NEGATIVE FOR INTRAEP ITHELIAL LESION OR MALIGNANCY. Absolute lymphocyte counton 03-14-2023 Lymphocytes Auto (Unsp spec) [#/Vol] 1.43 10*3/uL 0.83-4.51 [facility] Basophil percentageon 2022 Basophils/100 WBC (Bld) 0.9 % 0-1 [facility] Bilirubin [Mass/Vol] 0.40 mg/dL 0.20-1.00 [facility] Comment on above: For patients on eltr ombopag therapy, use of Dimension Simon TBIL is not recommended. Chloride [Moles/Vol] 110 mmol/L 98-107 [facility] Eosinophils/100 WBC (Bld) 3.3 % 0-5 [facility] Glucose [Mass/Vol] 109 mg/dL 74-106 [facility] Comment on above: Fasting Glucose resu lt from 100 to 125 mg/dL suggests IMPAIRED HOMEOSTASIS per A.D.A. criteria. Neutrophils (Bld) [#/Vol] 9.6 10*3/uL 2.0-7.7 [facility] Neutrophils/100 WBC (Bld) 73.1 % 47-70 [facility] Potassium [Moles/Vol] 4.4 mmol/L 3.5-5.1 [facility] Protein [Mass/Vol] 6.5 g/dL 6.4-8.2 [facility] Sodium [Moles/Vol] 141 mmol/L 136-145 [facility] WBC (Bld) [#/Vol] 13.2 10*3/uL 4.4-11.0 [facility] Blood erythrocytes count (nu mber/volume)on 03-14-2023 RBC (Bld) [#/Vol] 4.36 10*6/uL 4.2-5.4 [facility] Blood hemoglobin measurement (mass/volume)on 03-14-2023 Hemoglobin (Bld) [Mass/Vol] 12.7 g/dL 12.0-15.0 [facility] Blood lymphocytes/100 leukoc yteson 03-14-2023 Lymphocytes/100 WBC (Bld) 10.8 % 19-41 [facility] Blood monocytes/100 leukocyt eson 03-14-2023 Monocytes/100 WBC (Bld) 10.2 % 0-10 [facility] Blood platelet mean volumeon 03-14-2023 Platelet mean volume (Bld) [Entitic vol] 10.4 fL 6.2-12.0 [facility] Determination of erythrocyte mean corpuscular volume (MCV)on 03-14-2023 MCV (RBC) [Entitic vol] 93.6 fL 81-99 [facility] Hematocrit Auto (Bld) [Volum e fraction]on 03-14-2023 Hematocrit (Bld) [Volume fraction] 40.8 % 37-47 [facility] Laboratory - Chemistry and C hemistry - challengeon 03-14-2023 ALP [Catalytic activity/Vol] 115 U/L 45-117 [facility] ALT [Catalytic activity/Vol] 29 U/L 13-56 [facility] CO2 [Moles/Vol] 24.0 mmol/L 21.0-32.0 [facility] Globulin (S) [Mass/Vol] 3.1 g/dL 2.2-4.2 [facility] Urea nitrogen/Creatinine [Mass ratio] 36.4 mg/mg 10-20 [facility] Laboratory - Hematology and Cell countson 03-14-2023 Erythrocyte distribution width (RBC) [Entitic vol] 51.7 fL 35.1-43.9 [facility] Erythrocyte distribution width (RBC) [Ratio] 14.9 % 11.6-14.6 [facility] Immature granulocytes/100 WBC (Bld) 1.700 % 0.0-0.9 [facility] Comment on above: IG% - Immature Granu locytes (promyelocytes, myelocytes and metamyelocytes) > 1% indicates that a LEFT SHIFT is Present. MCH (RBC) [Entitic mass] 29.1 pg 27.0-32.0 [facility] Nucleated RBC/100 WBC (Bld) [Ratio] 0 % 0-5 [facility] MCHC Auto (RBC) [Mass/Vol]on 03-14-2023 MCHC (RBC) [Mass/Vol] 31.1 g/dL 32-36 [facility] No Panel Informationon 03-14 Estimated GFR (MDRD) Amer 60 mL/min >60 [facility] Comment on above: GFR Calc Estimated GFR (MDRD) Non-Af Amer 50 mL/min >60 [facility] Comment on above: Non- GFR Calc Tacrolimus (Prograf) Level 4.5 ng/mL 2.0-20.0 [facility] Comment on above: Trough (immediately following transplant) 15.0 Trough (steady state, 2 weeks or more after transplant): 3.0 - 8.0 Performed by LC-MS/MS technology.Performed at: [facility] [address] [id number] Director: Amaury Dubois MD, Phone: [phone] Platelets bldon 03-14-2023 Platelets (Bld) [#/Vol] 344 10*3/uL 150-450 [facility] Serum or plasma albumin osei urement (mass/volume)on 03-14-2023 Albumin [Mass/Vol] 3.4 g/dL 3.2-5.0 [facility] Serum or plasma albumin/glob ulin mass ratioon 03-14-2023 Albumin/Globulin [Mass ratio] 1.1 {ratio} 0.9-2.4 [facility] Serum or plasma calcium osei urement (mass/volume)on 03-14-2023 Calcium [Mass/Vol] 11.2 mg/dL 8.5-10.1 [facility] Serum or plasma creatinine m easurement (mass/volume)on 03-14-2023 Creatinine [Mass/Vol] 1.18 mg/dL 0.55-1.02 [facility] Comment on above: The validity of the calculated GFR & GFRAA in patients over 70 years has not been determined. Clinical correlation is essential. Serum or plasma urea nitroge n measurement (mass/volume)on 03-14-2023 Urea nitrogen [Mass/Vol] 43 mg/dL 7-18 [facility] Thin prep Papanicolaou smear with manual screeningon 03-14-2023 Thin prep Papanicolaou smear with manual screening 10 U/L 15-37 [facility] Thin prep Papanicolaou smear with manual screening 7 5-15 [facility] Culture, urineOrdered By: Bassam Banda on 03-03-2023 Bacteria identified Cx Nom (U) Mixed Gram Pos & Gram Neg Org [facility] Bacteria identified Cx Nom (U) Mixed Gram Pos & Gram Neg Org [facility] Absolute lymphocyte counton 02-14-2023 Lymphocytes Auto (Unsp spec) [#/Vol] 0.71 10*3/uL 0.83-4.51 [facility] Basophil percentageon 2022 Basophils/100 WBC (Bld) 0.3 % 0-1 [facility] Bilirubin [Mass/Vol] 0.50 mg/dL 0.20-1.00 [facility] Comment on above: For patients on eltr ombopag therapy, use of Dimension Simon TBIL is not recommended. Chloride [Moles/Vol] 110 mmol/L 98-107 [facility] Eosinophils/100 WBC (Bld) 0.1 % 0-5 [facility] Glucose [Mass/Vol] 120 mg/dL 74-106 [facility] Comment on above: Fasting Glucose resu lt from 100 to 125 mg/dL suggests IMPAIRED HOMEOSTASIS per A.D.A. criteria. Neutrophils (Bld) [#/Vol] 15.3 10*3/uL 2.0-7.7 [facility] Neutrophils/100 WBC (Bld) 89.5 % 47-70 [facility] Potassium [Moles/Vol] 4.4 mmol/L 3.5-5.1 [facility] Protein [Mass/Vol] 6.4 g/dL 6.4-8.2 [facility] Sodium [Moles/Vol] 139 mmol/L 136-145 [facility] WBC (Bld) [#/Vol] 17.1 10*3/uL 4.4-11.0 [facility] Bilirubin Test strip Ql (U)O rdered By: Carson Russell on 02-14-2023 Bilirubin Ql (U) Negative Negative [facility] Blood erythrocytes count (nu mber/volume)on 02-14-2023 RBC (Bld) [#/Vol] 4.36 10*6/uL 4.2-5.4 [facility] Blood hemoglobin measurement (mass/volume)on 02-14-2023 Hemoglobin (Bld) [Mass/Vol] 12.5 g/dL 12.0-15.0 [facility] Blood lymphocytes/100 leukoc yteson 02-14-2023 Lymphocytes/100 WBC (Bld) 4.2 % 19-41 [facility] Blood monocytes/100 leukocyt eson 02-14-2023 Monocytes/100 WBC (Bld) 4.7 % 0-10 [facility] Blood platelet mean volumeon 02-14-2023 Platelet mean volume (Bld) [Entitic vol] 10.7 fL 6.2-12.0 [facility] Culture, urineOrdered By: Ángel Russell on 02-14-2023 Bacteria identified Cx Nom (U) ESBL Escherichia coli [facility] Bacteria identified Cx Nom (U) ESBL Escherichia coli [facility] Determination of erythrocyte mean corpuscular volume (MCV)on 02-14-2023 MCV (RBC) [Entitic vol] 89.2 fL 81-99 [facility] Hematocrit Auto (Bld) [Volum e fraction]on 02-14-2023 Hematocrit (Bld) [Volume fraction] 38.9 % 37-47 [facility] Ketones Test strip Ql (U)Ord ered By: Carson Russell on 02-14-2023 Ketones Ql (U) Negative Negative [facility] Laboratory - Chemistry and C hemistry - challengeon 02-14-2023 ALP [Catalytic activity/Vol] 93 U/L 45-117 [facility] ALT [Catalytic activity/Vol] 23 U/L 13-56 [facility] CO2 [Moles/Vol] 23.0 mmol/L 21.0-32.0 [facility] Globulin (S) [Mass/Vol] 3.6 g/dL 2.2-4.2 [facility] Urea nitrogen/Creatinine [Mass ratio] 38.5 mg/mg 10- [facility] Laboratory - Hematology and Cell countson 02-14-2023 Erythrocyte distribution width (RBC) [Entitic vol] 47.0 fL 35.1-43.9 [facility] Erythrocyte distribution width (RBC) [Ratio] 14.5 % 11.6-14.6 [facility] Immature granulocytes/100 WBC (Bld) 1.200 % 0.0-0.9 [facility] Comment on above: IG% - Immature Granu locytes (promyelocytes, myelocytes and metamyelocytes) > 1% indicates that a LEFT SHIFT is Present. MCH (RBC) [Entitic mass] 28.7 pg 27.0-32.0 [facility] Nucleated RBC/100 WBC (Bld) [Ratio] 0 % 0-5 [facility] MCHC Auto (RBC) [Mass/Vol]on 02-14-2023 MCHC (RBC) [Mass/Vol] 32.1 g/dL 32-36 [facility] Nitrite Test strip Ql (U)Ord ered By: Carson Russell on 02-14-2023 Nitrite Ql (U) Negative Negative [facility] No Panel Informationon 02-14 Estimated GFR (MDRD) Amer 61 mL/min >60 [facility] Comment on above: GFR Calc Estimated GFR (MDRD) Non-Af Amer 50 mL/min >60 [facility] Comment on above: Non- GFR Calc Tacrolimus (Prograf) Level 10.0 ng/mL 2.0-20.0 [facility] Comment on above: Trough (immediately following transplant) 15.0 Trough (steady state, 2 weeks or more after transplant): 3.0 - 8.0 Performed by LC-MS/MS technology.Performed at: [address] [id number] Director: Amaury Dubois MD, Phone: [phone] Platelets bldon 02-14-2023 Platelets (Bld) [#/Vol] 360 10*3/uL 150-450 [facility] Protein Test strip Ql (U)Ord ered By: Carson Russell on 02-14-2023 Protein Ql (U) 15 mg/dl Negative [facility] Serum or plasma albumin osei urement (mass/volume)on 02-14-2023 Albumin [Mass/Vol] 2.8 g/dL 3.2-5.0 [facility] Serum or plasma albumin/glob ulin mass ratioon 02-14-2023 Albumin/Globulin [Mass ratio] 0.8 {ratio} 0.9-2.4 [facility] Serum or plasma calcium osei urement (mass/volume)on 02-14-2023 Calcium [Mass/Vol] 10.0 mg/dL 8.5-10.1 [facility] Serum or plasma creatinine m easurement (mass/volume)on 02-14-2023 Creatinine [Mass/Vol] 1.17 mg/dL 0.55-1.02 [facility] Comment on above: The validity of the calculated GFR & GFRAA in patients over 70 years has not been determined. Clinical correlation is essential. Serum or plasma urea nitroge n measurement (mass/volume)on 02-14-2023 Urea nitrogen [Mass/Vol] 45 mg/dL 7-18 [facility] Thin prep Papanicolaou smear with manual screeningon 02-14-2023 Thin prep Papanicolaou smear with manual screening 10 U/L 15-37 [facility] Thin prep Papanicolaou smear with manual screening 6 5-15 [facility] Urine blood detectionOrdered By: Carson Russell on 02-14-2023 RBC Ql (U) 10 /ul Negative [facility] Urine clarityOrdered By: Serene Russell on 02-14-2023 Clarity (U) Clear Clear [facility] Urine color determinationOrd ered By: Carson Russell on 02-14-2023 Color (U) Yellow Yellow [facility] Urine glucose detectionOrder ed By: Carson Russell on 02-14-2023 Glucose Ql (U) Normal mg/dl Normal [facility] Urine leukocyte esterase det ection by dipstickOrdered By: Carson Russell on 02-14-2023 Leukocyte esterase Test strip Ql (U) 100 /ul Negative [facility] Urine pHOrdered By: Carson ocampo on 02-14-2023 pH (U) 6.0 [pH] 5.0 - 8.0 [facility] Urine specific gravity measu rementOrdered By: Carson Russell on 02-14-2023 Specific gravity (U) [Rel density] 1.015 1.002-1.03 0 [facility] Urobilinogen Auto test strip Ql (U)Ordered By: Carson Russell on 02-14-2023 Urobilinogen Ql (U) Normal mg/dl Normal [facility] Absolute lymphocyte countOrd ered By: Carson Russell on 02-11-2023 Lymphocytes Auto (Unsp spec) [#/Vol] 0.38 10*3/uL 0.83-4.51 [facility] Basophil percentageOrdered B y: Carson Russell on 02-11-2023 Basophils/100 WBC (Bld) 0.2 % 0-1 [facility] Bilirubin [Mass/Vol] 0.50 mg/dL 0.20-1.00 [facility] Comment on above: For patients on eltr ombopag therapy, use of Dimension Simon TBIL is not recommended. Chloride [Moles/Vol] 107 mmol/L 98-107 [facility] Eosinophils/100 WBC (Bld) 0.2 % 0-5 [facility] Glucose [Mass/Vol] 123 mg/dL 74-106 [facility] Comment on above: Fasting Glucose resu lt from 100 to 125 mg/dL suggests IMPAIRED HOMEOSTASIS per A.D.A. criteria. Neutrophils (Bld) [#/Vol] 11.2 10*3/uL 2.0-7.7 [facility] Neutrophils/100 WBC (Bld) 87.2 % 47-70 [facility] Potassium [Moles/Vol] 4.2 mmol/L 3.5-5.1 [facility] Protein [Mass/Vol] 6.8 g/dL 6.4-8.2 [facility] Sodium [Moles/Vol] 137 mmol/L 136-145 [facility] WBC (Bld) [#/Vol] 12.9 10*3/uL 4.4-11.0 [facility] Blood erythrocytes count (nu mber/volume)Ordered By: Carson Russell on 02-11-2023 RBC (Bld) [#/Vol] 4.35 10*6/uL 4.2-5.4 [facility] Blood hemoglobin measurement (mass/volume)Ordered By: Carson Russell on 02-11-2023 Hemoglobin (Bld) [Mass/Vol] 12.5 g/dL 12.0-15.0 [facility] Blood lymphocytes/100 leukoc ytesOrdered By: Carson Russell on 02-11-2023 Lymphocytes/100 WBC (Bld) 3.0 % 19-41 [facility] Blood monocytes/100 leukocyt esOrdered By: Carson Russell on 02-11-2023 Monocytes/100 WBC (Bld) 8.9 % 0-10 [facility] Blood platelet mean volumeOr dered By: Carson Russell on 02-11-2023 Platelet mean volume (Bld) [Entitic vol] 10.2 fL 6.2-12.0 [facility] Determination of erythrocyte mean corpuscular volume (MCV)Ordered By: Carson Russell on 02-11-2023 MCV (RBC) [Entitic vol] 91.5 fL 81-99 [facility] Hematocrit Auto (Bld) [Volum e fraction]Ordered By: Carson Russell on 02-11-2023 Hematocrit (Bld) [Volume fraction] 39.8 % 37-47 [facility] Laboratory - Chemistry and C hemistry - challengeOrdered By: Carson Russell on 02-11-2023 ALP [Catalytic activity/Vol] 81 U/L 45-117 [facility] ALT [Catalytic activity/Vol] 27 U/L 13-56 [facility] CO2 [Moles/Vol] 24.0 mmol/L 21.0-32.0 [facility] Globulin (S) [Mass/Vol] 3.7 g/dL 2.2-4.2 [facility] Urea nitrogen/Creatinine [Mass ratio] 19.5 mg/mg 10-20 [facility] Laboratory - Hematology and Cell countsOrdered By: Carson Russell on 02-11-2023 Erythrocyte distribution width (RBC) [Entitic vol] 48.4 fL 35.1-43.9 [facility] Erythrocyte distribution width (RBC) [Ratio] 14.4 % 11.6-14.6 [facility] Immature granulocytes/100 WBC (Bld) 0.500 % 0.0-0.9 [facility] Comment on above: IG% - Immature Granu locytes (promyelocytes, myelocytes and metamyelocytes) > 1% indicates that a LEFT SHIFT is Present. MCH (RBC) [Entitic mass] 28.7 pg 27.0-32.0 [facility] Nucleated RBC/100 WBC (Bld) [Ratio] 0 % 0-5 [facility] MCHC Auto (RBC) [Mass/Vol]Or dered By: Carson Russell on 02-11-2023 MCHC (RBC) [Mass/Vol] 31.4 g/dL 32-36 [facility] No Panel InformationOrdered By: Carson Russell on 02-11-2023 Anti-Nuclear Antibody Screen Negative Negative [facility] Comment on above: Performed at: [place] [id number] Director: Marcello Kwon PhD, Phone: [phone] Estimated GFR (MDRD) Amer 55 mL/min >60 [facility] Comment on above: GFR Calc Estimated GFR (MDRD) Non-Af Amer 45 mL/min >60 [facility] Comment on above: Non- GFR Calc Thyroid Stimulating Hormone (TSH) 1.30 uIU/mL 0.358-3.74 [facility] Platelets bldOrdered By: Serene Russell on 02-11-2023 Platelets (Bld) [#/Vol] 251 10*3/uL 150-450 [facility] Serum or plasma C reactive p rotein measurement (mass/volume)Ordered By: Carson Russell on 02-11-2023 CRP [Mass/Vol] 148.00 mg/L 0.0-3.0 [facility] Comment on above: C-Reactive Protein ( CRP) provides useful information for thediagnosis, therapy and monitoring of inflammatory processesand associated diseases. For the evaluation of Relative Riskfor Cardiovascular Disease, a High Sensitivity CRP (HSCRP)should be ordered. Serum or plasma albumin osei urement (mass/volume)Ordered By: Carson Russell on 02-11-2023 Albumin [Mass/Vol] 3.1 g/dL 3.2-5.0 [facility] Serum or plasma albumin/glob ulin mass ratioOrdered By: Carson Russell on 02-11-2023 Albumin/Globulin [Mass ratio] 0.8 {ratio} 0.9-2.4 [facility] Serum or plasma calcium osei urement (mass/volume)Ordered By: Carson Russell on 02-11-2023 Calcium [Mass/Vol] 9.5 mg/dL 8.5-10.1 [facility] Serum or plasma creatinine m easurement (mass/volume)Ordered By: Carson Russell on 02-11-2023 Creatinine [Mass/Vol] 1.28 mg/dL 0.55-1.02 [facility] Comment on above: The validity of the calculated GFR & GFRAA in patients over 70 years has not been determined. Clinical correlation is essential. Serum or plasma urea nitroge n measurement (mass/volume)Ordered By: Carson Russell on 02-11-2023 Urea nitrogen [Mass/Vol] 25 mg/dL 7-18 [facility] Thin prep Papanicolaou smear with manual screeningOrdered By: Carson Russell on 02-11-2023 Thin prep Papanicolaou smear with manual screening 12 U/L 15-37 [facility] Thin prep Papanicolaou smear with manual screening 6 5-15 [facility] Thin prep Papanicolaou smear with manual screening Negative Negative [facility] Comment on above: Lyme antibodies not detected. Reflex testing is notindicated.No laboratory evidence of infection with B. burgdorferi(Lyme disease). Negative results may occur in patientsrecently infected (less than or equal to 14 days) with B.burgdorferi. If recent infection is suspected, repeattesting on a new sample collected in 7 to 14 days isrecommended.Performed at: - [facility] [id number] Director: Marcello Kwon PhD, Phone: [phone] Basophil percentageon 2022 Chloride [Moles/Vol] 117 mmol/L 98-107 [facility] Glucose [Mass/Vol] 103 mg/dL 74-106 [facility] Comment on above: Fasting Glucose resu lt from 100 to 125 mg/dL suggests IMPAIRED HOMEOSTASIS per A.D.A. criteria. Potassium [Moles/Vol] 4.2 mmol/L 3.5-5.1 [facility] Sodium [Moles/Vol] 141 mmol/L 136-145 [facility] - Chemistry and C hemistry - challengeon 12-13-2022 CO2 [Moles/Vol] 21.0 mmol/L 21.0-32.0 [facility] Urea nitrogen/Creatinine [Mass ratio] 24.8 mg/mg 10- [facility] No Panel Informationon 12-13 Estimated GFR (MDRD) Amer 72 mL/min >60 [facility] Comment on above: GFR Calc Estimated GFR (MDRD) Non-Af Amer 59 mL/min >60 [facility] Comment on above: Non- GFR Calc Tacrolimus (Prograf) Level 4.7 ng/mL 2.0-20.0 [facility] Comment on above: Trough (immediately following transplant) 15.0 Trough (steady state, 2 weeks or more after transplant): 3.0 - 8.0 Performed by LC-MS/MS technology.Performed at: [facility] [id number] Director: Amaury Dubois MD, Phone: [phone] Serum or plasma calcium osei urement (mass/volume)on 12-13-2022 Calcium [Mass/Vol] 9.7 mg/dL 8.5-10.1 [facility] Serum or plasma creatinine m easurement (mass/volume)on 12-13-2022 Creatinine [Mass/Vol] 1.01 mg/dL 0.55-1.02 [facility] Comment on above: The validity of the calculated GFR & GFRAA in patients over 70 years has not been determined. Clinical correlation is essential. Serum or plasma urea nitroge n measurement (mass/volume)on 12-13-2022 Urea nitrogen [Mass/Vol] 25 mg/dL 7-18 [facility] Thin prep Papanicolaou smear with manual screeningon 12-13-2022 Thin prep Papanicolaou smear with manual screening 3 5-15 [facility] Basophil percentageOrdered B y: Dr. Wu on 11-16-2022 Basophil percentage 2.2 mg/dL 2.5-4.9 [facility] Bilirubin [Mass/Vol] 0.30 mg/dL 0.20-1.00 [facility] Comment on above: For patients on eltr ombopag therapy, use of Dimension Simon TBIL is not recommended. Chloride [Moles/Vol] 117 mmol/L 98-107 [facility] Glucose [Mass/Vol] 105 mg/dL 74-106 [facility] Comment on above: Fasting Glucose resu lt from 100 to 125 mg/dL suggests IMPAIRED HOMEOSTASIS per A.D.A. criteria. Potassium [Moles/Vol] 4.6 mmol/L 3.5-5.1 [facility] Protein [Mass/Vol] 6.4 g/dL 6.4-8.2 [facility] Sodium [Moles/Vol] 143 mmol/L 136-145 [facility] WBC (Bld) [#/Vol] 8.3 10*3/uL 4.4-11.0 [facility] Blood erythrocytes count (nu mber/volume)Ordered By: Dr. Wu on 11-16-2022 RBC (Bld) [#/Vol] 4.61 10*6/uL 4.2-5.4 [facility] Blood hemoglobin measurement (mass/volume)Ordered By: Dr. Wu on 11-16-2022 Hemoglobin (Bld) [Mass/Vol] 13.2 g/dL 12.0-15.0 [facility] Blood platelet mean volumeOr dered By: Dr. Wu on 11-16-2022 Platelet mean volume (Bld) [Entitic vol] 10.2 fL 6.2-12.0 [facility] Determination of erythrocyte mean corpuscular volume (MCV)Ordered By: Dr. Wu on 11-16-2022 MCV (RBC) [Entitic vol] 91.5 fL 81-99 [facility] Hematocrit Auto (Bld) [Volum e fraction]Ordered By: Dr. Wu on 11-16-2022 Hematocrit (Bld) [Volume fraction] 42.2 % 37-47 [facility] Iron measurement (mass/mass) Ordered By: Dr. Wu on 11-16-2022 Iron (Unsp spec) [Mass/Mass] 62 ug/dL 50-170 [facility] Laboratory - Chemistry and C hemistry - challengeOrdered By: Dr. Wu on 11-16-2022 ALP [Catalytic activity/Vol] 101 U/L 45-117 [facility] ALT [Catalytic activity/Vol] 22 U/L 13-56 [facility] CO2 [Moles/Vol] 23.0 mmol/L 21.0-32.0 [facility] Globulin (S) [Mass/Vol] 3.0 g/dL 2.2-4.2 [facility] Magnesium [Mass/Vol] 2.2 mg/dL 1.6-2.6 [facility] Urea nitrogen/Creatinine [Mass ratio] 22.7 mg/mg 10-20 [facility] Laboratory - Hematology and Cell countsOrdered By: Dr. Wu on 11-16-2022 Erythrocyte distribution width (RBC) [Entitic vol] 46.5 fL 35.1-43.9 [facility] Erythrocyte distribution width (RBC) [Ratio] 13.8 % 11.6-14.6 [facility] MCH (RBC) [Entitic mass] 28.6 pg 27.0-32.0 [facility] MCHC Auto (RBC) [Mass/Vol]Or dered By: Dr. Wu on 11-16-2022 MCHC (RBC) [Mass/Vol] 31.3 g/dL 32-36 [facility] No Panel InformationOrdered By: Dr. Wu on 11-16-2022 Estimated GFR (MDRD) Amer 60 mL/min >60 [facility] Comment on above: GFR Calc Estimated GFR (MDRD) Non-Af Amer 49 mL/min >60 [facility] Comment on above: Non- GFR Calc Total Iron Binding Capacity 238 ug/dL 250-450 [facility] Urine Microalbumin/Creatini ne Ratio 79.7 mg/g CRE <30 [facility] No Panel InformationOrdered By: Krzysztof Wu on 11-16-2022 Tacrolimus (Prograf) Level 3.5 ng/mL 2.0-20.0 [facility] Comment on above: Trough (immediately following transplant) 15.0 Trough (steady state, 2 weeks or more after transplant): 3.0 - 8.0 Performed by LC-MS/MS technology.Performed at: [address] [id number] Director: Amaury Dubois MD, Phone: [phone] Platelets bldOrdered By: Dr. Wu on 11-16-2022 Platelets (Bld) [#/Vol] 310 10*3/uL 150-450 [facility] Serum or plasma albumin osei urement (mass/volume)Ordered By: Dr. Wu on 11-16-2022 Albumin [Mass/Vol] 3.4 g/dL 3.2-5.0 [facility] Serum or plasma albumin/glob ulin mass ratioOrdered By: Dr. Wu on 11-16-2022 Albumin/Globulin [Mass ratio] 1.1 {ratio} 0.9-2.4 [facility] Serum or plasma calcium osei urement (mass/volume)Ordered By: Dr. Wu on 11-16-2022 Calcium [Mass/Vol] 10.2 mg/dL 8.5-10.1 [facility] Serum or plasma creatinine m easurement (mass/volume)Ordered By: Dr. Wu on 11-16-2022 Creatinine [Mass/Vol] 1.19 mg/dL 0.55-1.02 [facility] Comment on above: The validity of the calculated GFR & GFRAA in patients over 70 years has not been determined. Clinical correlation is essential. Serum or plasma ferritin ace surement (mass/volume)Ordered By: Dr. Wu on 11-16-2022 Ferritin [Mass/Vol] 1384 ng/mL 8-252 [facility] Serum or plasma iron saturat ion measurement (mass fraction)Ordered By: Dr. Wu on 11-16-2022 Iron saturation [Mass fraction] 26.1 % 15.0-55.0 [facility] Serum or plasma urea nitroge n measurement (mass/volume)Ordered By: Dr. Wu on 11-16-2022 Urea nitrogen [Mass/Vol] 27 mg/dL 7-18 [facility] Serum or plasma uric acid me asurement (mass/volume)Ordered By: Dr. Wu on 11-16-2022 Urate [Mass/Vol] 4.2 mg/dL 2.6-6.0 [facility] Comment on above: The drugs N-Acetylcy steine and Metamizole may falsely depress this assay. Thin prep Papanicolaou smear with manual screeningOrdered By: Dr. Wu on 11-16-2022 Thin prep Papanicolaou smear with manual screening 15 U/L 15-37 [facility] Thin prep Papanicolaou smear with manual screening 3 5-15 [facility] Thin prep Papanicolaou smear with manual screening 80.5 mg/L NO RANGE EST. [facility] Urine creatinine measurement (mass/volume)Ordered By: Dr. Wu on 11-16-2022 Creatinine (U) [Mass/Vol] 101.00 mg/dL NO RANGE EST. [facility] Basophil percentageon 2022 Basophil percentage 2.9 mg/dL 2.5-4.9 [facility] Bilirubin [Mass/Vol] 0.30 mg/dL 0.20-1.00 [facility] Comment on above: For patients on eltr ombopag therapy, use of Dimension Simon TBIL is not recommended. Chloride [Moles/Vol] 113 mmol/L 98-107 [facility] Cholesterol [Mass/Vol] 168 mg/dL <200 [facility] Comment on above: <200 mg/dL Desirable 200-240 mg/dL Borderline >240 mg/dL High Risk Glucose [Mass/Vol] 107 mg/dL 74-106 [facility] Comment on above: Fasting Glucose resu lt from 100 to 125 mg/dL suggests IMPAIRED HOMEOSTASIS per A.D.A. criteria. Potassium [Moles/Vol] 3.9 mmol/L 3.5-5.1 [facility] Protein [Mass/Vol] 6.8 g/dL 6.4-8.2 [facility] Sodium [Moles/Vol] 142 mmol/L 136-145 [facility] Triglyceride [Mass/Vol] 160 mg/dL <199 [facility] Comment on above: The drugs N-Acetylcy steine and Metamizole may falsely depress this assay.Serum Triglycerides Reference Interval Normal <150 mg/dL Borderline high 150 - 199 mg/dL High 200 - 499 mg/dL Very High > or = 500 mg/dL WBC (Bld) [#/Vol] 8.1 10*3/uL 4.4-11.0 [facility] Blood erythrocytes count (nu mber/volume)on 11-08-2022 RBC (Bld) [#/Vol] 4.61 10*6/uL 4.2-5.4 [facility] Blood hemoglobin measurement (mass/volume)on 11-08-2022 Hemoglobin (Bld) [Mass/Vol] 13.3 g/dL 12.0-15.0 [facility] Blood platelet mean volumeon 11-08-2022 Platelet mean volume (Bld) [Entitic vol] 10.7 fL 6.2-12.0 [facility] Determination of erythrocyte mean corpuscular volume (MCV)on 11-08-2022 MCV (RBC) [Entitic vol] 91.8 fL 81-99 [facility] Hematocrit Auto (Bld) [Volum e fraction]on 11-08-2022 Hematocrit (Bld) [Volume fraction] 42.3 % 37-47 [facility] Laboratory - Chemistry and C hemistry - challengeon 11-08-2022 ALP [Catalytic activity/Vol] 112 U/L 45-117 [facility] ALT [Catalytic activity/Vol] 21 U/L 13-56 [facility] Amylase [Catalytic activity/Vol] 37 U/L 5-55 [facility] CO2 [Moles/Vol] 23.0 mmol/L 21.0-32.0 [facility] Globulin (S) [Mass/Vol] 3.4 g/dL 2.2-4.2 [facility] Urea nitrogen/Creatinine [Mass ratio] 39.5 mg/mg 10-20 [facility] Laboratory - Hematology and Cell countson 11-08-2022 Erythrocyte distribution width (RBC) [Entitic vol] 46.4 fL 35.1-43.9 [facility] Erythrocyte distribution width (RBC) [Ratio] 13.9 % 11.6-14.6 [facility] MCH (RBC) [Entitic mass] 28.9 pg 27.0-32.0 [facility] MCHC Auto (RBC) [Mass/Vol]on 11-08-2022 MCHC (RBC) [Mass/Vol] 31.4 g/dL 32-36 [facility] No Panel Informationon 11-08 Estimated GFR (MDRD) Amer 76 mL/min >60 [facility] Comment on above: GFR Calc Estimated GFR (MDRD) Non-Af Amer 63 mL/min >60 [facility] Comment on above: Non- GFR Calc Tacrolimus (Prograf) Level 2.7 ng/mL 2.0-20.0 [facility] Comment on above: Trough (immediately following transplant) 15.0 Trough (steady state, 2 weeks or more after transplant): 3.0 - 8.0 Performed by LC-MS/MS technology.Performed at: [facility] [id number] Director: Amaury Dubois MD, Phone: [phone] Platelets bldon 11-08-2022 Platelets (Bld) [#/Vol] 301 10*3/uL 150-450 [facility] Serum or plasma albumin osei urement (mass/volume)on 11-08-2022 Albumin [Mass/Vol] 3.4 g/dL 3.2-5.0 [facility] Serum or plasma albumin/glob ulin mass ratioon 11-08-2022 Albumin/Globulin [Mass ratio] 1.0 {ratio} 0.9-2.4 [facility] Serum or plasma calcium osei urement (mass/volume)on 11-08-2022 Calcium [Mass/Vol] 11.0 mg/dL 8.5-10.1 [facility] Serum or plasma cholesterol in HDL measurement (mass/volume)on 11-08-2022 Cholesterol in HDL [Mass/Vol] 62 mg/dL >40 [facility] Comment on above: The drugs N-Acetylcy steine and Metamizole may falsely depress this assay. Reference Range HDL <40 mg/dL Low HDL Cholesterol HDL >or= 60 mg/dL High HDL Cholesterol Serum or plasma cholesterol in VLDL measurement (mass/volume)on 11-08-2022 Cholesterol in VLDL [Mass/Vol] 32 mg/dL 5-40 [facility] Serum or plasma creatinine m easurement (mass/volume)on 11-08-2022 Creatinine [Mass/Vol] 0.96 mg/dL 0.55-1.02 [facility] Comment on above: The validity of the calculated GFR & GFRAA in patients over 70 years has not been determined. Clinical correlation is essential. Serum or plasma low density lipoprotein (LDL) cholesterol measurement (mass/volume)on 11-08-2022 Cholesterol in LDL [Mass/Vol] 74 mg/dL 0-130 [facility] Serum or plasma urea nitroge n measurement (mass/volume)on 11-08-2022 Urea nitrogen [Mass/Vol] 38 mg/dL 7-18 [facility] Thin prep Papanicolaou smear with manual screeningon 11-08-2022 Thin prep Papanicolaou smear with manual screening 14 U/L 15-37 [facility] Thin prep Papanicolaou smear with manual screening 6 5-15 [facility] Urine creatinine measurement (mass/volume)on 11-08-2022 Creatinine (U) [Mass/Vol] 82.70 mg/dL NO RANGE EST. [facility] Urine protein measurement (m ass/volume)on 11-08-2022 Protein (U) [Mass/Vol] 26.3 mg/dL 0.0-11.8 [facility] Urine protein/creatinine mas s ratioon 11-08-2022 Protein/Creatinine (U) [Mass ratio] 318 mg/g CRE 0-200 [facility] Basophil percentageon 2022 Basophil percentage 1.8 mg/dL 2.5-4.9 [facility] Bilirubin [Mass/Vol] 0.20 mg/dL 0.20-1.00 [facility] Comment on above: For patients on eltr ombopag therapy, use of Dimension Simon TBIL is not recommended. Chloride [Moles/Vol] 111 mmol/L 98-107 [facility] Glucose [Mass/Vol] 109 mg/dL 74-106 [facility] Comment on above: Fasting Glucose resu lt from 100 to 125 mg/dL suggests IMPAIRED HOMEOSTASIS per A.D.A. criteria. Potassium [Moles/Vol] 4.4 mmol/L 3.5-5.1 [facility] Protein [Mass/Vol] 6.6 g/dL 6.4-8.2 [facility] Sodium [Moles/Vol] 138 mmol/L 136-145 [facility] WBC (Bld) [#/Vol] 8.9 10*3/uL 4.4-11.0 [facility] Blood erythrocytes count (nu mber/volume)on 09-13-2022 RBC (Bld) [#/Vol] 4.36 10*6/uL 4.2-5.4 [facility] Blood hemoglobin measurement (mass/volume)on 09-13-2022 Hemoglobin (Bld) [Mass/Vol] 12.9 g/dL 12.0-15.0 [facility] Blood platelet mean volumeon 09-13-2022 Platelet mean volume (Bld) [Entitic vol] 10.0 fL 6.2-12.0 [facility] Determination of erythrocyte mean corpuscular volume (MCV)on 09-13-2022 MCV (RBC) [Entitic vol] 93.6 fL 81-99 [facility] Hematocrit Auto (Bld) [Volum e fraction]on 09-13-2022 Hematocrit (Bld) [Volume fraction] 40.8 % 37-47 [facility] Laboratory - Chemistry and C hemistry - challengeon 09-13-2022 ALP [Catalytic activity/Vol] 113 U/L 45-117 [facility] ALT [Catalytic activity/Vol] 21 U/L 13-56 [facility] CO2 [Moles/Vol] 26.0 mmol/L 21.0-32.0 [facility] Globulin (S) [Mass/Vol] 3.1 g/dL 2.2-4.2 [facility] Magnesium [Mass/Vol] 2.2 mg/dL 1.6-2.6 [facility] Urea nitrogen/Creatinine [Mass ratio] 35.5 mg/mg 10-20 [facility] Laboratory - Hematology and Cell countson 09-13-2022 Erythrocyte distribution width (RBC) [Entitic vol] 45.3 fL 35.1-43.9 [facility] Erythrocyte distribution width (RBC) [Ratio] 13.3 % 11.6-14.6 [facility] MCH (RBC) [Entitic mass] 29.6 pg 27.0-32.0 [facility] MCHC Auto (RBC) [Mass/Vol]on 09-13-2022 MCHC (RBC) [Mass/Vol] 31.6 g/dL 32-36 [facility] No Panel Informationon 09-13 Estimated GFR (MDRD) Amer 74 mL/min >60 [facility] Comment on above: GFR Calc Estimated GFR (MDRD) Non-Af Amer 61 mL/min >60 [facility] Comment on above: Non- GFR Calc Tacrolimus (Prograf) Level See comment [facility] Comment on above: TEST RESULT LIMITSTa crolimus ([id number]), Blood, 4.2 ng/mL 2.0- 20.0 Trough (immediately following transplant) 15.0 Trough(steady state, 2 weeks or more after transplant): 3.0 - 8.0 Performed by LC-MS/MS technology. ____ TESTING PERFORMED AT [facility]. ORIGINAL REPORT ON FILE IN LAB CONTAINS ADDITIONAL TEST SITE INFORMATION. Platelets bldon 09-13-2022 Platelets (Bld) [#/Vol] 335 10*3/uL 150-450 [facility] Serum or plasma albumin osei urement (mass/volume)on 09-13-2022 Albumin [Mass/Vol] 3.5 g/dL 3.2-5.0 [facility] Serum or plasma albumin/glob ulin mass ratioon 09-13-2022 Albumin/Globulin [Mass ratio] 1.1 {ratio} 0.9-2.4 [facility] Serum or plasma calcium osei urement (mass/volume)on 09-13-2022 Calcium [Mass/Vol] 10.0 mg/dL 8.5-10.1 [facility] Serum or plasma creatinine m easurement (mass/volume)on 09-13-2022 Creatinine [Mass/Vol] 0.99 mg/dL 0.55-1.02 [facility] Comment on above: The validity of the calculated GFR & GFRAA in patients over 70 years has not been determined. Clinical correlation is essential. Serum or plasma urea nitroge n measurement (mass/volume)on 09-13-2022 Urea nitrogen [Mass/Vol] 35 mg/dL 7-18 [facility] Thin prep Papanicolaou smear with manual screeningon 09-13-2022 Thin prep Papanicolaou smear with manual screening 14 U/L 15-37 [facility] Thin prep Papanicolaou smear with manual screening 1 5-15 [facility] Basophil percentageon 2022 Chloride [Moles/Vol] 112 mmol/L 98-107 [facility] Glucose [Mass/Vol] 107 mg/dL 74-106 [facility] Comment on above: Fasting Glucose resu lt from 100 to 125 mg/dL suggests IMPAIRED HOMEOSTASIS per A.D.A. criteria. Potassium [Moles/Vol] 4.0 mmol/L 3.5-5.1 [facility] Sodium [Moles/Vol] 142 mmol/L 136-145 [facility] WBC (Bld) [#/Vol] 10.0 10*3/uL 4.4-11.0 [facility] Blood erythrocytes count (nu mber/volume)on 08-16-2022 RBC (Bld) [#/Vol] 4.25 10*6/uL 4.2-5.4 [facility] Blood hemoglobin measurement (mass/volume)on 08-16-2022 Hemoglobin (Bld) [Mass/Vol] 12.4 g/dL 12.0-15.0 [facility] Blood platelet mean volumeon 08-16-2022 Platelet mean volume (Bld) [Entitic vol] 10.0 fL 6.2-12.0 [facility] Determination of erythrocyte mean corpuscular volume (MCV)on 08-16-2022 MCV (RBC) [Entitic vol] 93.6 fL 81-99 [facility] Hematocrit Auto (Bld) [Volum e fraction]on 08-16-2022 Hematocrit (Bld) [Volume fraction] 39.8 % 37-47 [facility] Laboratory - Chemistry and C hemistry - challengeon 08-16-2022 CO2 [Moles/Vol] 23.0 mmol/L 21.0-32.0 [facility] - Hematology and Cell countson 08-16-2022 Erythrocyte distribution width (RBC) [Entitic vol] 48.9 fL 35.1-43.9 [facility] Erythrocyte distribution width (RBC) [Ratio] 14.3 % 11.6-14.6 [facility] MCH (RBC) [Entitic mass] 29.2 pg 27.0-32.0 [facility] MCHC Auto (RBC) [Mass/Vol]on 08-16-2022 MCHC (RBC) [Mass/Vol] 31.2 g/dL 32-36 [facility] No Panel Informationon 08-16 Estimated GFR (MDRD) Amer 70 mL/min >60 [facility] Comment on above: GFR Calc Estimated GFR (MDRD) Non-Af Amer 58 mL/min >60 [facility] Comment on above: Non- GFR Calc Tacrolimus (Prograf) Level 5.4 ng/mL 2.0-20.0 [facility] Comment on above: Trough (immediately following transplant) 15.0 Trough (steady state, 2 weeks or more after transplant): 3.0 - 8.0 Performed by LC-MS/MS technology.Performed at: [facility] [id number] Director: Amaury Dubois MD, Phone: [phone] Platelets bldon 08-16-2022 Platelets (Bld) [#/Vol] 397 10*3/uL 150-450 [facility] Serum or plasma creatinine m easurement (mass/volume)on 08-16-2022 Creatinine [Mass/Vol] 1.03 mg/dL 0.55-1.02 [facility] Comment on above: The validity of the calculated GFR & GFRAA in patients over 70 years has not been determined. Clinical correlation is essential. Serum or plasma urea nitroge n measurement (mass/volume)on 08-16-2022 Urea nitrogen [Mass/Vol] 28 mg/dL 7-18 [facility] Thin prep Papanicolaou smear with manual screeningon 08-16-2022 Thin prep Papanicolaou smear with manual screening 7 5-15 [facility] No Panel Informationon 07-14 POC SARS CoV-2 Antigen Negative [facility] Basophil percentageon 2022 Basophil percentage 2.6 mg/dL 2.5-4.9 [facility] Bilirubin [Mass/Vol] 0.30 mg/dL 0.20-1.00 [facility] Comment on above: For patients on eltr ombopag therapy, use of Dimension Simon TBIL is not recommended. Chloride [Moles/Vol] 111 mmol/L 98-107 [facility] Cholesterol [Mass/Vol] 174 mg/dL <200 [facility] Comment on above: <200 mg/dL Desirable 200-240 mg/dL Borderline >240 mg/dL High Risk Glucose [Mass/Vol] 109 mg/dL 74-106 [facility] Comment on above: Fasting Glucose resu lt from 100 to 125 mg/dL suggests IMPAIRED HOMEOSTASIS per A.D.A. criteria. Potassium [Moles/Vol] 4.3 mmol/L 3.5-5.1 [facility] Protein [Mass/Vol] 7.0 g/dL 6.4-8.2 [facility] Sodium [Moles/Vol] 140 mmol/L 136-145 [facility] Triglyceride [Mass/Vol] 97 mg/dL <199 [facility] Comment on above: The drugs N-Acetylcy steine and Metamizole may falsely depress this assay.Serum Triglycerides Reference Interval Normal <150 mg/dL Borderline high 150 - 199 mg/dL High 200 - 499 mg/dL Very High > or = 500 mg/dL WBC (Bld) [#/Vol] 6.6 10*3/uL 4.4-11.0 [facility] Blood erythrocytes count (nu mber/volume)on 07-12-2022 RBC (Bld) [#/Vol] 4.61 10*6/uL 4.2-5.4 [facility] Blood hemoglobin measurement (mass/volume)on 07-12-2022 Hemoglobin (Bld) [Mass/Vol] 13.2 g/dL 12.0-15.0 [facility] Blood platelet mean volumeon 07-12-2022 Platelet mean volume (Bld) [Entitic vol] 10.0 fL 6.2-12.0 [facility] Determination of erythrocyte mean corpuscular volume (MCV)on 07-12-2022 MCV (RBC) [Entitic vol] 91.5 fL 81-99 [facility] Direct bilirubinon 3 Bilirubin.direct [Mass/Vol] 0.11 mg/dL 0.00-0.30 [facility] Hematocrit Auto (Bld) [Volum e fraction]on 07-12-2022 Hematocrit (Bld) [Volume fraction] 42.2 % 37-47 [facility] Iron measurement (mass/mass) on 07-12-2022 Iron (Unsp spec) [Mass/Mass] 75 ug/dL 50-170 [facility] Laboratory - Chemistry and C hemistry - challengeon 07-12-2022 ALP [Catalytic activity/Vol] 101 U/L 45-117 [facility] ALT [Catalytic activity/Vol] 25 U/L 13-56 [facility] CO2 [Moles/Vol] 21.0 mmol/L 21.0-32.0 [facility] Globulin (S) [Mass/Vol] 3.5 g/dL 2.2-4.2 [facility] Magnesium [Mass/Vol] 1.8 mg/dL 1.6-2.6 [facility] Transferrin [Mass/Vol] 192 mg/dL 192-364 [facility] Comment on above: Performed at: [address] [id number] Director: Amaury Dubois MD, Phone: [phone] at: - [facility] [address] [id number] Director: Marcello Kwon PhD, Phone: [phone] Urea nitrogen/Creatinine [Mass ratio] 30.3 mg/mg 10-20 [facility] - Hematology and Cell countson 07-12-2022 Erythrocyte distribution width (RBC) [Entitic vol] 48.2 fL 35.1-43.9 [facility] Erythrocyte distribution width (RBC) [Ratio] 14.3 % 11.6-14.6 [facility] MCH (RBC) [Entitic mass] 28.6 pg 27.0-32.0 [facility] MCHC Auto (RBC) [Mass/Vol]on 07-12-2022 MCHC (RBC) [Mass/Vol] 31.3 g/dL 32-36 [facility] No Panel Informationon 07-12 Estimated GFR (MDRD) Amer 66 mL/min >60 [facility] Comment on above: GFR Calc Estimated GFR (MDRD) Non-Af Amer 55 mL/min >60 [facility] Comment on above: Non- GFR Calc Miscellaneous Test See comment [facility] Comment on above: TEST RESULTS LIMITSB KV Quant PCRBKV DNA, Quant PCR, Plasma Negative IU/mL NegativeNo BK DNA detected.The linear range of the assay is 22 - 100,000,000 IU/mL. TESTING PERFORMED AT [facility]. ORIGINAL REPORT ON FILE IN LAB CONTAINS ADDITIONAL TEST SITE INFORMATION. Tacrolimus (Prograf) Level 3.9 ng/mL 2.0-20.0 [facility] Comment on above: Trough (immediately following transplant) 15.0 Trough (steady state, 2 weeks or more after transplant): 3.0 - 8.0 Performed by LC-MS/MS technology. Total Iron Binding Capacity 238 ug/dL 250-450 [facility] Platelets bldon 07-12-2022 Platelets (Bld) [#/Vol] 327 10*3/uL 150-450 [facility] Serum or plasma albumin osei urement (mass/volume)on 07-12-2022 Albumin [Mass/Vol] 3.5 g/dL 3.2-5.0 [facility] Serum or plasma albumin/glob ulin mass ratioon 07-12-2022 Albumin/Globulin [Mass ratio] 1.0 {ratio} 0.9-2.4 [facility] Serum or plasma calcium osei urement (mass/volume)on 07-12-2022 Calcium [Mass/Vol] 10.1 mg/dL 8.5-10.1 [facility] Serum or plasma cholesterol in HDL measurement (mass/volume)on 07-12-2022 Cholesterol in HDL [Mass/Vol] 96 mg/dL >40 [facility] Comment on above: The drugs N-Acetylcy steine and Metamizole may falsely depress this assay. Reference Range HDL <40 mg/dL Low HDL Cholesterol HDL >or= 60 mg/dL High HDL Cholesterol Serum or plasma cholesterol in VLDL measurement (mass/volume)on 07-12-2022 Cholesterol in VLDL [Mass/Vol] 19 mg/dL 5-40 [facility] Serum or plasma creatinine m easurement (mass/volume)on 07-12-2022 Creatinine [Mass/Vol] 1.09 mg/dL 0.55-1.02 [facility] Comment on above: The validity of the calculated GFR & GFRAA in patients over 70 years has not been determined. Clinical correlation is essential. Serum or plasma ferritin ace surement (mass/volume)on 07-12-2022 Ferritin [Mass/Vol] 1369 ng/mL 8-252 [facility] Serum or plasma low density lipoprotein (LDL) cholesterol measurement (mass/volume)on 07-12-2022 Cholesterol in LDL [Mass/Vol] 59 mg/dL 0-130 [facility] Serum or plasma urea nitroge n measurement (mass/volume)on 07-12-2022 Urea nitrogen [Mass/Vol] 33 mg/dL 7-18 [facility] Serum or plasma uric acid me asurement (mass/volume)on 07-12-2022 Urate [Mass/Vol] 4.9 mg/dL 2.6-6.0 [facility] Comment on above: The drugs N-Acetylcy steine and Metamizole may falsely depress this assay. Thin prep Papanicolaou smear with manual screeningon 07-12-2022 Thin prep Papanicolaou smear with manual screening 13 U/L 15-37 [facility] Thin prep Papanicolaou smear with manual screening 8 5-15 [facility] Urine creatinine measurement (mass/volume)on 07-12-2022 Creatinine (U) [Mass/Vol] 66.10 mg/dL NO RANGE EST. [facility] Urine protein measurement (m ass/volume)on 07-12-2022 Protein (U) [Mass/Vol] 12.4 mg/dL 0.0-11.8 [facility] Urine protein/creatinine mas s ratioon 07-12-2022 Protein/Creatinine (U) [Mass ratio] 188 mg/g CRE 0-200 [facility] Absolute lymphocyte counton 06-14-2022 Lymphocytes Auto (Unsp spec) [#/Vol] 0.52 10*3/uL 0.83-4.51 [facility] Basophil percentageon 2022 Basophils/100 WBC (Bld) 0.9 % 0-1 [facility] Chloride [Moles/Vol] 114 mmol/L 98-107 [facility] Eosinophils/100 WBC (Bld) 2.7 % 0-5 [facility] Glucose [Mass/Vol] 103 mg/dL 74-106 [facility] Comment on above: Fasting Glucose resu lt from 100 to 125 mg/dL suggests IMPAIRED HOMEOSTASIS per A.D.A. criteria. Neutrophils (Bld) [#/Vol] 5.6 10*3/uL 2.0-7.7 [facility] Neutrophils/100 WBC (Bld) 79.1 % 47-70 [facility] Potassium [Moles/Vol] 5.0 mmol/L 3.5-5.1 [facility] Sodium [Moles/Vol] 141 mmol/L 136-145 [facility] WBC (Bld) [#/Vol] 7.0 10*3/uL 4.4-11.0 [facility] Blood erythrocytes count (nu mber/volume)on 06-14-2022 RBC (Bld) [#/Vol] 4.53 10*6/uL 4.2-5.4 [facility] Blood hemoglobin measurement (mass/volume)on 06-14-2022 Hemoglobin (Bld) [Mass/Vol] 13.2 g/dL 12.0-15.0 [facility] Blood lymphocytes/100 leukoc yteson 06-14-2022 Lymphocytes/100 WBC (Bld) 7.4 % 19-41 [facility] Blood manual differential co mment interpretation (narrative result)on 06-14-2022 Manual differential comment Inder (Bld) [Interp] SCANNED [facility] Blood monocytes/100 leukocyt eson 06-14-2022 Monocytes/100 WBC (Bld) 9.8 % 0-10 [facility] Blood platelet mean volumeon 06-14-2022 Platelet mean volume (Bld) [Entitic vol] 9.8 fL 6.2-12.0 [facility] Determination of erythrocyte mean corpuscular volume (MCV)on 06-14-2022 MCV (RBC) [Entitic vol] 92.5 fL 81-99 [facility] Hematocrit Auto (Bld) [Volum e fraction]on 06-14-2022 Hematocrit (Bld) [Volume fraction] 41.9 % 37-47 [facility] Laboratory - Chemistry and C hemistry - challengeon 06-14-2022 CO2 [Moles/Vol] 18.0 mmol/L 21.0-32.0 [facility] - Hematology and Cell countson 06-14-2022 Erythrocyte distribution width (RBC) [Entitic vol] 47.8 fL 35.1-43.9 [facility] Erythrocyte distribution width (RBC) [Ratio] 14.2 % 11.6-14.6 [facility] Immature granulocytes/100 WBC (Bld) 0.100 % 0.0-0.9 [facility] Comment on above: IG% - Immature Granu locytes (promyelocytes, myelocytes and metamyelocytes) > 1% indicates that a LEFT SHIFT is Present. MCH (RBC) [Entitic mass] 29.1 pg 27.0-32.0 [facility] Nucleated RBC/100 WBC (Bld) [Ratio] 0 % 0-5 [facility] MCHC Auto (RBC) [Mass/Vol]on 06-14-2022 MCHC (RBC) [Mass/Vol] 31.5 g/dL 32-36 [facility] No Panel Informationon 06-14 Estimated GFR (MDRD) Amer 87 mL/min >60 [facility] Comment on above: GFR Calc Estimated GFR (MDRD) Non-Af Amer 72 mL/min >60 [facility] Comment on above: Non- GFR Calc Tacrolimus (Prograf) Level 5.1 ng/mL 2.0-20.0 [facility] Comment on above: Trough (immediately following transplant) 15.0 Trough (steady state, 2 weeks or more after transplant): 3.0 - 8.0 Performed by LC-MS/MS technology.Performed at: [facility] [id number] Director: Amaury Dubois MD, Phone: [phone] Platelets bldon 06-14-2022 Platelets (Bld) [#/Vol] 259 10*3/uL 150-450 [facility] Serum or plasma creatinine m easurement (mass/volume)on 06-14-2022 Creatinine [Mass/Vol] 0.86 mg/dL 0.55-1.02 [facility] Comment on above: The validity of the calculated GFR & GFRAA in patients over 70 years has not been determined. Clinical correlation is essential. Serum or plasma urea nitroge n measurement (mass/volume)on 06-14-2022 Urea nitrogen [Mass/Vol] 16 mg/dL 7-18 [facility] Basophil percentageon 2021 Basophil percentage 2.7 mg/dL 2.5-4.9 [facility] Bilirubin [Mass/Vol] 0.40 mg/dL 0.20-1.00 [facility] Comment on above: For patients on eltr ombopag therapy, use of Dimension Simon TBIL is not recommended. Chloride [Moles/Vol] 112 mmol/L 98-107 [facility] Glucose [Mass/Vol] 97 mg/dL 74-106 [facility] Potassium [Moles/Vol] 4.9 mmol/L 3.5-5.1 [facility] Protein [Mass/Vol] 6.0 g/dL 6.4-8.2 [facility] Sodium [Moles/Vol] 142 mmol/L 136-145 [facility] WBC (Bld) [#/Vol] 6.6 10*3/uL 4.4-11.0 [facility] Blood erythrocytes count (nu mber/volume)on 05-17-2022 RBC (Bld) [#/Vol] 4.36 10*6/uL 4.2-5.4 [facility] Blood hemoglobin measurement (mass/volume)on 05-17-2022 Hemoglobin (Bld) [Mass/Vol] 12.3 g/dL 12.0-15.0 [facility] Blood platelet mean volumeon 05-17-2022 Platelet mean volume (Bld) [Entitic vol] 10.2 fL 6.2-12.0 [facility] Determination of erythrocyte mean corpuscular volume (MCV)on 05-17-2022 MCV (RBC) [Entitic vol] 91.1 fL 81-99 [facility] Hematocrit Auto (Bld) [Volum e fraction]on 05-17-2022 Hematocrit (Bld) [Volume fraction] 39.7 % 37-47 [facility] Laboratory - Chemistry and C hemistry - challengeon 05-17-2022 ALP [Catalytic activity/Vol] 128 U/L 45-117 [facility] ALT [Catalytic activity/Vol] 24 U/L 13-56 [facility] CO2 [Moles/Vol] 23.0 mmol/L 21.0-32.0 [facility] Globulin (S) [Mass/Vol] 2.7 g/dL 2.2-4.2 [facility] Magnesium [Mass/Vol] 2.0 mg/dL 1.6-2.6 [facility] Urea nitrogen/Creatinine [Mass ratio] 21.6 mg/mg 10-20 [facility] - Hematology and Cell countson 05-17-2022 Erythrocyte distribution width (RBC) [Entitic vol] 45.0 fL 35.1-43.9 [facility] Erythrocyte distribution width (RBC) [Ratio] 13.5 % 11.6-14.6 [facility] MCH (RBC) [Entitic mass] 28.2 pg 27.0-32.0 [facility] MCHC Auto (RBC) [Mass/Vol]on 05-17-2022 MCHC (RBC) [Mass/Vol] 31.0 g/dL 32-36 [facility] No Panel Informationon 05-17 Estimated GFR (MDRD) Amer 65 mL/min >60 [facility] Comment on above: GFR Calc Estimated GFR (MDRD) Non-Af Amer 53 mL/min >60 [facility] Comment on above: Non- GFR Calc Tacrolimus (Prograf) Level 6.1 ng/mL 2.0-20.0 [facility] Comment on above: Trough (immediately following transplant) 15.0 Trough (steady state, 2 weeks or more after transplant): 3.0 - 8.0 Performed by LC-MS/MS technology.Performed at: [address] [id number] Director: Amaury Dubois MD, Phone: [phone] Platelets bldon 05-17-2022 Platelets (Bld) [#/Vol] 349 10*3/uL 150-450 [facility] Serum or plasma albumin osei urement (mass/volume)on 05-17-2022 Albumin [Mass/Vol] 3.3 g/dL 3.2-5.0 [facility] Serum or plasma albumin/glob ulin mass ratioon 05-17-2022 Albumin/Globulin [Mass ratio] 1.2 {ratio} 0.9-2.4 [facility] Serum or plasma calcium osei urement (mass/volume)on 05-17-2022 Calcium [Mass/Vol] 10.2 mg/dL 8.5-10.1 [facility] Serum or plasma creatinine m easurement (mass/volume)on 05-17-2022 Creatinine [Mass/Vol] 1.11 mg/dL 0.55-1.02 [facility] Comment on above: The validity of the calculated GFR & GFRAA in patients over 70 years has not been determined. Clinical correlation is essential. Serum or plasma urea nitroge n measurement (mass/volume)on 05-17-2022 Urea nitrogen [Mass/Vol] 24 mg/dL 7-18 [facility] Serum or plasma uric acid me asurement (mass/volume)on 05-17-2022 Urate [Mass/Vol] 5.2 mg/dL 2.6-6.0 [facility] Comment on above: The drugs N-Acetylcy steine and Metamizole may falsely depress this assay. Thin prep Papanicolaou smear with manual screeningon 05-17-2022 Thin prep Papanicolaou smear with manual screening 15 U/L 15-37 [facility] Thin prep Papanicolaou smear with manual screening 7 5-[address] [facility] [address] KNEE W/O CONTRAST LEFTon 05-05-2022 CT [...] 05/05/2022 11:20:17 AM Ordering Provider: [facility] Basophil percentageon 2021 Chloride [Moles/Vol] 113 mmol/L 98-107 [facility] Glucose [Mass/Vol] 108 mg/dL 74-106 [facility] Comment on above: Fasting Glucose resu lt from 100 to 125 mg/dL suggests IMPAIRED HOMEOSTASIS per A.D.A. criteria. Potassium [Moles/Vol] 4.3 mmol/L 3.5-5.1 [facility] Sodium [Moles/Vol] 141 mmol/L 136-145 [facility] WBC (Bld) [#/Vol] 4.6 10*3/uL 4.4-11.0 [facility] Blood erythrocytes count (nu mber/volume)on 04-19-2022 RBC (Bld) [#/Vol] 4.46 10*6/uL 4.2-5.4 [facility] Blood hemoglobin measurement (mass/volume)on 04-19-2022 Hemoglobin (Bld) [Mass/Vol] 12.6 g/dL 12.0-15.0 [facility] Blood platelet mean volumeon 04-19-2022 Platelet mean volume (Bld) [Entitic vol] 10.0 fL 6.2-12.0 [facility] Determination of erythrocyte mean corpuscular volume (MCV)on 04-19-2022 MCV (RBC) [Entitic vol] 91.0 fL 81-99 [facility] Hematocrit Auto (Bld) [Volum e fraction]on 04-19-2022 Hematocrit (Bld) [Volume fraction] 40.6 % 37-47 [facility] Laboratory - Chemistry and C hemistry - challengeon 04-19-2022 CO2 [Moles/Vol] 20.0 mmol/L 21.0-32.0 [facility] - Hematology and Cell countson 04-19-2022 Erythrocyte distribution width (RBC) [Entitic vol] 46.8 fL 35.1-43.9 [facility] Erythrocyte distribution width (RBC) [Ratio] 14.0 % 11.6-14.6 [facility] MCH (RBC) [Entitic mass] 28.3 pg 27.0-32.0 [facility] MCHC Auto (RBC) [Mass/Vol]on 04-19-2022 MCHC (RBC) [Mass/Vol] 31.0 g/dL 32-36 [facility] No Panel Informationon 04-19 Estimated GFR (MDRD) Amer 64 mL/min >60 [facility] Comment on above: GFR Calc Estimated GFR (MDRD) Non-Af Amer 53 mL/min >60 [facility] Comment on above: Non- GFR Calc Tacrolimus (Prograf) Level 5.3 ng/mL 2.0-20.0 [facility] Comment on above: Trough (immediately following transplant) 15.0 Trough (steady state, 2 weeks or more after transplant): 3.0 - 8.0 Performed by LC-MS/MS technology.Performed at: [facility] [id number] Director: Amaury Dubois MD, Phone: [phone] Platelets bldon 04-19-2022 Platelets (Bld) [#/Vol] 374 10*3/uL 150-450 [facility] Serum or plasma creatinine m easurement (mass/volume)on 04-19-2022 Creatinine [Mass/Vol] 1.12 mg/dL 0.55-1.02 [facility] Comment on above: The validity of the calculated GFR & GFRAA in patients over 70 years has not been determined. Clinical correlation is essential. Serum or plasma urea nitroge n measurement (mass/volume)on 04-19-2022 Urea nitrogen [Mass/Vol] 22 mg/dL 7-18 [facility] Thin prep Papanicolaou smear with manual screeningon 04-19-2022 Thin prep Papanicolaou smear with manual screening 8 5-15 [facility] URINE PROTEIN/CREA RATIO, RA NDOMon 03-17-2022 Creatinine (24H U) [Mass/Vol] 102.81 mg/[facility] Protein Unsp time (U) [Mass/Vol] 14 mg/dL [facility] Protein/Creatinine (U) [Mass ratio] 0.136 mg/g [facility] Basophil percentageon 2021 WBC (Bld) [#/Vol] 5.4 10*3/uL 4.4-11.0 [facility] Chloride [Moles/Vol] 111 mmol/L 98-107 [facility] Glucose [Mass/Vol] 107 mg/dL 74-106 [facility] Comment on above: Fasting Glucose resu lt from 100 to 125 mg/dL suggests IMPAIRED HOMEOSTASIS per A.D.A. criteria. Potassium [Moles/Vol] 4.7 mmol/L 3.5-5.1 [facility] Sodium [Moles/Vol] 140 mmol/L 136-145 [facility] Blood erythrocytes count (nu mber/volume)on 03-15-2022 RBC (Bld) [#/Vol] 4.10 10*6/uL 4.2-5.4 [facility] Blood hemoglobin measurement (mass/volume)on 03-15-2022 Hemoglobin (Bld) [Mass/Vol] 11.9 g/dL 12.0-15.0 [facility] Blood platelet mean volumeon 03-15-2022 Platelet mean volume (Bld) [Entitic vol] 10.6 fL 6.2-12.0 [facility] Determination of erythrocyte mean corpuscular volume (MCV)on 03-15-2022 MCV (RBC) [Entitic vol] 92.4 fL 81-99 [facility] Hematocrit Auto (Bld) [Volum e fraction]on 03-15-2022 Hematocrit (Bld) [Volume fraction] 37.9 % 37-47 [facility] Laboratory - Chemistry and C hemistry - challengeon 03-15-2022 CO2 [Moles/Vol] 21.0 mmol/L 21.0-32.0 [facility] Laboratory - Hematology and Cell countson 03-15-2022 Erythrocyte distribution width (RBC) [Entitic vol] 51.4 fL 35.1-43.9 [facility] Erythrocyte distribution width (RBC) [Ratio] 15.2 % 11.6-14.6 [facility] MCH (RBC) [Entitic mass] 29.0 pg 27.0-32.0 [facility] MCHC Auto (RBC) [Mass/Vol]on 03-15-2022 MCHC (RBC) [Mass/Vol] 31.4 g/dL 32-36 [facility] No Panel Informationon 03-15 Estimated GFR (MDRD) Amer 56 mL/min >60 [facility] Comment on above: GFR Calc Estimated GFR (MDRD) Non-Af Amer 47 mL/min >60 [facility] Comment on above: Non- GFR Calc Tacrolimus (Prograf) Level 4.9 ng/mL 2.0-20.0 [facility] Comment on above: Trough (immediately following transplant) 15.0 Trough (steady state, 2 weeks or more after transplant): 3.0 - 8.0 Performed by LC-MS/MS technology.Performed at: [facility] [id number] Director: Amaury Dubosi MD, Phone: [phone] Platelets bldon 03-15-2022 Platelets (Bld) [#/Vol] 307 10*3/uL 150-450 [facility] Serum or plasma creatinine m easurement (mass/volume)on 03-15-2022 Creatinine [Mass/Vol] 1.25 mg/dL 0.55-1.02 [facility] Comment on above: The validity of the calculated GFR & GFRAA in patients over 70 years has not been determined. Clinical correlation is essential. Serum or plasma urea nitroge n measurement (mass/volume)on 03-15-2022 Urea nitrogen [Mass/Vol] 23 mg/dL 7-18 [facility] Thin prep Papanicolaou smear with manual screeningon 03-15-2022 Thin prep Papanicolaou smear with manual screening 8 5-15 [facility] Basophil percentageon 2021 Basophil percentage 2.3 mg/dL 2.5-4.9 [facility] Work Phone: Bilirubin [Mass/Vol] 0.40 mg/dL 0.20-1.00 [facility] Work Phone: Comment on above: For patients on eltr ombopag therapy, use of Dimension Simon TBIL is not recommended. Chloride [Moles/Vol] 116 mmol/L 98-107 [facility] Work Phone: Cholesterol [Mass/Vol] 147 mg/dL <200 [facility] Work Phone: Comment on above: <200 mg/dL Desirable 200-240 mg/dL Borderline >240 mg/dL High Risk Glucose [Mass/Vol] 106 mg/dL 74-106 [facility] Work Phone: Comment on above: Fasting Glucose resu lt from 100 to 125 mg/dL suggests IMPAIRED HOMEOSTASIS per A.D.A. criteria. Potassium [Moles/Vol] 4.1 mmol/L 3.5-5.1 [facility] Work Phone: Sodium [Moles/Vol] 143 mmol/L 136-145 [facility] Work Phone: Triglyceride [Mass/Vol] 130 mg/dL <199 [facility] Work Phone: Comment on above: The drugs N-Acetylcy steine and Metamizole may falsely depress this assay.Serum Triglycerides Reference Interval Normal <150 mg/dL Borderline high 150 - 199 mg/dL High 200 - 499 mg/dL Very High > or = 500 mg/dL WBC (Bld) [#/Vol] 3.9 10*3/uL 4.4-11.0 [facility] Work Phone: Blood erythrocytes count (nu mber/volume)on 02-15-2022 RBC (Bld) [#/Vol] 3.95 10*6/uL 4.2-5.4 [facility] Work Phone: Blood hemoglobin measurement (mass/volume)on 02-15-2022 Hemoglobin (Bld) [Mass/Vol] 10.9 g/dL 12.0-15.0 [facility] Work Phone: Blood platelet mean volumeon 02-15-2022 Platelet mean volume (Bld) [Entitic vol] 10.2 fL 6.2-12.0 [facility] Work Phone: Determination of erythrocyte mean corpuscular volume (MCV)on 02-15-2022 MCV (RBC) [Entitic vol] 85.6 fL 81-99 [facility] Work Phone: Hematocrit Auto (Bld) [Volum e fraction]on 02-15-2022 Hematocrit (Bld) [Volume fraction] 33.8 % 37-47 [facility] Work Phone: Iron measurement (mass/mass) on 02-15-2022 Iron (Unsp spec) [Mass/Mass] 63 ug/dL 50-170 [facility] Work Phone: Laboratory - Chemistry and C hemistry - challengeon 02-15-2022 ALP [Catalytic activity/Vol] 138 U/L 45-117 [facility] Work Phone: ALT [Catalytic activity/Vol] 21 U/L 13-56 [facility] Work Phone: CO2 [Moles/Vol] 22.0 mmol/L 21.0-32.0 [facility] Work Phone: Magnesium [Mass/Vol] 2.2 mg/dL 1.6-2.6 [facility] Work Phone: Transferrin [Mass/Vol] 146 mg/dL 192-364 [facility] Work Phone: Comment on above: Performed at: [facility] [address] [id number] Director: Amaury Dubois MD, Phone: [phone] at: [facility] [address] [id number] Director: Marcello Kwon PhD, Phone: [phone] Urea nitrogen/Creatinine [Mass ratio] 14.4 mg/mg 10-20 [facility] Work Phone: Laboratory - Hematology and Cell countson 02-15-2022 Erythrocyte distribution width (RBC) [Entitic vol] 42.8 fL 35.1-43.9 [facility] Work Phone: Erythrocyte distribution width (RBC) [Ratio] 13.9 % 11.6-14.6 [facility] Work Phone: MCH (RBC) [Entitic mass] 27.6 pg 27.0-32.0 [facility] Work Phone: MCHC Auto (RBC) [Mass/Vol]on 02-15-2022 MCHC (RBC) [Mass/Vol] 32.2 g/dL 32-36 [facility] Work Phone: No Panel Informationon 02-15 Estimated GFR (MDRD) Amer 65 mL/min >60 [facility] Work Phone: Comment on above: GFR Calc Estimated GFR (MDRD) Non-Af Amer 53 mL/min >60 [facility] Work Phone: Comment on above: Non- GFR Calc Miscellaneous Test See comment [facility] Work Phone: Comment on above: TEST RESULT LIMITSBK V Quant PCR BKV DNA, Quant PCR, Plasma Negative IU/mL Negative _ TESTING PERFORMED AT [facility]. ORIGINAL REPORT ON FILE IN LAB CONTAINS ADDITIONAL TEST SITE INFORMATION. Tacrolimus (Prograf) Level 5.1 ng/mL 2.0-20.0 [facility] Work Phone: Comment on above: Trough (immediately following transplant) 15.0 Trough (steady state, 2 weeks or more after transplant): 3.0 - 8.0 Performed by LC-MS/MS technology. Total Iron Binding Capacity 210 ug/dL 250-450 [facility] Work Phone: Platelets bldon 02-15-2022 Platelets (Bld) [#/Vol] 316 10*3/uL 150-450 [facility] Work Phone: Serum or plasma albumin osei urement (mass/volume)on 02-15-2022 Albumin [Mass/Vol] 3.1 g/dL 3.2-5.0 [facility] Work Phone: Serum or plasma calcium osei urement (mass/volume)on 02-15-2022 Calcium [Mass/Vol] 10.3 mg/dL 8.5-10.1 [facility] Work Phone: Serum or plasma cholesterol in HDL measurement (mass/volume)on 02-15-2022 Cholesterol in HDL [Mass/Vol] 55 mg/dL >40 [facility] Work Phone: Comment on above: The drugs N-Acetylcy steine and Metamizole may falsely depress this assay. Reference Range HDL <40 mg/dL Low HDL Cholesterol HDL >or= 60 mg/dL High HDL Cholesterol Serum or plasma cholesterol in VLDL measurement (mass/volume)on 02-15-2022 Cholesterol in VLDL [Mass/Vol] 26 mg/dL 5-40 [facility] Work Phone: Serum or plasma creatinine m easurement (mass/volume)on 02-15-2022 Creatinine [Mass/Vol] 1.11 mg/dL 0.55-1.02 [facility] Work Phone: Comment on above: The validity of the calculated GFR & GFRAA in patients over 70 years has not been determined. Clinical correlation is essential. Serum or plasma ferritin ace surement (mass/volume)on 02-15-2022 Ferritin [Mass/Vol] 2125 ng/mL 8-252 [facility] Work Phone: Serum or plasma iron saturat ion measurement (mass fraction)on 02-15-2022 Iron saturation [Mass fraction] 30.0 % 15.0-55.0 [facility] Work Phone: Serum or plasma low density lipoprotein (LDL) cholesterol measurement (mass/volume)on 02-15-2022 Cholesterol in LDL [Mass/Vol] 66 mg/dL 0-130 [facility] Work Phone: Serum or plasma urea nitroge n measurement (mass/volume)on 02-15-2022 Urea nitrogen [Mass/Vol] 16 mg/dL 7-18 [facility] Work Phone: Serum or plasma uric acid me asurement (mass/volume)on 02-15-2022 Urate [Mass/Vol] 4.7 mg/dL 2.6-6.0 [facility] Work Phone: Comment on above: The drugs N-Acetylcy steine and Metamizole may falsely depress this assay. Thin prep Papanicolaou smear with manual screeningon 02-15-2022 Thin prep Papanicolaou smear with manual screening 13 U/L 15-37 [facility] Work Phone: Thin prep Papanicolaou smear with manual screening 5 5-15 [facility] Work Phone: Urine creatinine measurement (mass/volume)on 02-15-2022 Creatinine (U) [Mass/Vol] 85.90 mg/dL NO RANGE EST. [facility] Work Phone: Urine protein measurement (m ass/volume)on 02-15-2022 Protein (U) [Mass/Vol] 14.9 mg/dL 0.0-11.8 [facility] Work Phone: Urine protein/creatinine mas s ratioon 02-15-2022 Protein/Creatinine (U) [Mass ratio] 173 mg/g CRE 0-200 [facility] Work Phone: Basophil percentageon 2021 Protein [Mass/Vol] 6.4 g/dL 6.4-8.2 [facility] Work Phone: Laboratory - Chemistry and C hemistry - challengeon 02-09-2022 Globulin (S) [Mass/Vol] 3.4 g/dL 2.2-4.2 [facility] Work Phone: No Panel Informationon 02-09 Urine Microalbumin/Creatini ne Ratio 13.6 mg/g CRE <30 [facility] Work Phone: Serum or plasma albumin/glob ulin mass ratioon 02-09-2022 Albumin/Globulin [Mass ratio] 0.9 {ratio} 0.9-2.4 [facility] Work Phone: Thin prep Papanicolaou smear with manual screeningon 02-09-2022 Thin prep Papanicolaou smear with manual screening 13.3 mg/L NO RANGE EST. [facility] Work Phone: Basophil percentageon 2021 Chloride [Moles/Vol] 114 mmol/L 98-107 [facility] Work Phone: Glucose [Mass/Vol] 105 mg/dL 74-106 [facility] Work Phone: Comment on above: Fasting Glucose resu lt from 100 to 125 mg/dL suggests IMPAIRED HOMEOSTASIS per A.D.A. criteria. Potassium [Moles/Vol] 4.6 mmol/L 3.5-5.1 [facility] Work Phone: Sodium [Moles/Vol] 141 mmol/L 136-145 [facility] Work Phone: WBC (Bld) [#/Vol] 2.6 10*3/uL 4.4-11.0 [facility] Work Phone: Blood erythrocytes count (nu mber/volume)on 02-01-2022 RBC (Bld) [#/Vol] 4.30 10*6/uL 4.2-5.4 [facility] Work Phone: Blood hemoglobin measurement (mass/volume)on 02-01-2022 Hemoglobin (Bld) [Mass/Vol] 11.9 g/dL 12.0-15.0 [facility] Work Phone: Blood platelet mean volumeon 02-01-2022 Platelet mean volume (Bld) [Entitic vol] 10.5 fL 6.2-12.0 [facility] Work Phone: Determination of erythrocyte mean corpuscular volume (MCV)on 02-01-2022 MCV (RBC) [Entitic vol] 89.1 fL 81-99 [facility] Work Phone: Hematocrit Auto (Bld) [Volum e fraction]on 02-01-2022 Hematocrit (Bld) [Volume fraction] 38.3 % 37-47 [facility] Work Phone: Laboratory - Chemistry and C hemistry - challengeon 02-01-2022 CO2 [Moles/Vol] 23.0 mmol/L 21.0-32.0 [facility] Work Phone: Urea nitrogen/Creatinine [Mass ratio] 11.6 mg/mg 10-20 [facility] Work Phone: Laboratory - Hematology and Cell countson 02-01-2022 Erythrocyte distribution width (RBC) [Entitic vol] 43.0 fL 35.1-43.9 [facility] Work Phone: Erythrocyte distribution width (RBC) [Ratio] 13.2 % 11.6-14.6 [facility] Work Phone: MCH (RBC) [Entitic mass] 27.7 pg 27.0-32.0 [facility] Work Phone: MCHC Auto (RBC) [Mass/Vol]on 02-01-2022 MCHC (RBC) [Mass/Vol] 31.1 g/dL 32-36 [facility] Work Phone: No Panel Informationon 02-01 Estimated GFR (MDRD) Amer 50 mL/min >60 [facility] Work Phone: Comment on above: GFR Calc Estimated GFR (MDRD) Non-Af Amer 42 mL/min >60 [facility] Work Phone: Comment on above: Non- GFR Calc Tacrolimus (Prograf) Level 10.2 ng/mL 2.0-20.0 [facility] Work Phone: Comment on above: Trough (immediately following transplant) 15.0 Trough (steady state, 2 weeks or more after transplant): 3.0 - 8.0 Performed by LC-MS/MS technology.Performed at: [facility] [address] [id number] Director: Amaury Dubois MD, Phone: [phone] Platelets bldon 02-01-2022 Platelets (Bld) [#/Vol] 317 10*3/uL 150-450 [facility] Work Phone: Serum or plasma calcium osei urement (mass/volume)on 02-01-2022 Calcium [Mass/Vol] 10.7 mg/dL 8.5-10.1 [facility] Work Phone: Serum or plasma creatinine m easurement (mass/volume)on 02-01-2022 Creatinine [Mass/Vol] 1.38 mg/dL 0.55-1.02 [facility] Work Phone: Comment on above: The validity of the calculated GFR & GFRAA in patients over 70 years has not been determined. Clinical correlation is essential. Serum or plasma urea nitroge n measurement (mass/volume)on 02-01-2022 Urea nitrogen [Mass/Vol] 16 mg/dL 7-18 [facility] Work Phone: Thin prep Papanicolaou smear with manual screeningon 02-01-2022 Thin prep Papanicolaou smear with manual screening 4 5-15 [facility] Work Phone: No Panel Informationon 01-25 Tacrolimus (Prograf) Level 16.5 ng/mL 2.0-20.0 [facility] Work Phone: Comment on above: Trough (immediately following transplant) 15.0 Trough (steady state, 2 weeks or more after transplant): 3.0 - 8.0 Performed by LC-MS/MS technology.Performed at: [facility] [id number] Director: Amaury Dubois MD, Phone: [phone] Basophil percentageon 2021 Chloride [Moles/Vol] 108 mmol/L 98-107 [facility] Work Phone: Glucose [Mass/Vol] 122 mg/dL 74-106 [facility] Work Phone: Comment on above: Fasting Glucose resu lt from 100 to 125 mg/dL suggests IMPAIRED HOMEOSTASIS per A.D.A. criteria. Potassium [Moles/Vol] 4.3 mmol/L 3.5-5.1 [facility] Work Phone: Sodium [Moles/Vol] 142 mmol/L 136-145 [facility] Work Phone: WBC (Bld) [#/Vol] 4.2 10*3/uL 4.4-11.0 [facility] Work Phone: Blood erythrocytes count (nu mber/volume)on 12-14-2021 RBC (Bld) [#/Vol] 4.33 10*6/uL 4.2-5.4 [facility] Work Phone: Blood hemoglobin measurement (mass/volume)on 12-14-2021 Hemoglobin (Bld) [Mass/Vol] 12.4 g/dL 12.0-15.0 [facility] Work Phone: Blood platelet mean volumeon 12-14-2021 Platelet mean volume (Bld) [Entitic vol] 10.0 fL 6.2-12.0 [facility] Work Phone: Determination of erythrocyte mean corpuscular volume (MCV)on 12-14-2021 MCV (RBC) [Entitic vol] 91.2 fL 81-99 [facility] Work Phone: Hematocrit Auto (Bld) [Volum e fraction]on 12-14-2021 Hematocrit (Bld) [Volume fraction] 39.5 % 37-47 [facility] Work Phone: Laboratory - Chemistry and C hemistry - challengeon 12-14-2021 CO2 [Moles/Vol] 25.0 mmol/L 21.0-32.0 [facility] Work Phone: Laboratory - Hematology and Cell countson 12-14-2021 Erythrocyte distribution width (RBC) [Entitic vol] 43.2 fL 35.1-43.9 [facility] Work Phone: Erythrocyte distribution width (RBC) [Ratio] 12.9 % 11.6-14.6 [facility] Work Phone: MCH (RBC) [Entitic mass] 28.6 pg 27.0-32.0 [facility] Work Phone: MCHC Auto (RBC) [Mass/Vol]on 12-14-2021 MCHC (RBC) [Mass/Vol] 31.4 g/dL 32-36 [facility]: No Panel Informationon 12-14 Estimated GFR (MDRD) Amer 55 mL/min >60 [facility] Work Phone: Comment on above: GFR Calc Estimated GFR (MDRD) Non-Af Amer 46 mL/min >60 [facility] Work Phone: Comment on above: Non- GFR Calc Tacrolimus (Prograf) Level 6.9 ng/mL 2.0-20.0 [facility] Work Phone: Comment on above: Trough (immediately following transplant) 15.0 Trough (steady state, 2 weeks or more after transplant): 3.0 - 8.0 Performed by LC-MS/MS technology.Performed at: [facility] [id number] Director: Amaury Dubois MD, Phone: [phone] Platelets bldon 12-14-2021 Platelets (Bld) [#/Vol] 355 10*3/uL 150-450 [facility] Work Phone: Serum or plasma creatinine m easurement (mass/volume)on 12-14-2021 Creatinine [Mass/Vol] 1.27 mg/dL 0.55-1.02 [facility] Work Phone: Comment on above: The validity of the calculated GFR & GFRAA in patients over 70 years has not been determined. Clinical correlation is essential. Serum or plasma urea nitroge n measurement (mass/volume)on 12-14-2021 Urea nitrogen [Mass/Vol] 27 mg/dL 7-18 [facility] Work Phone: Thin prep Papanicolaou smear with manual screeningon 12-14-2021 Thin prep Papanicolaou smear with manual screening 9 5-15 [facility] Work Phone: Absolute lymphocyte counton 11-16-2021 Lymphocytes Auto (Unsp spec) [#/Vol] 5.32 10*3/uL 0.83-4.51 [facility] Work Phone: Basophil percentageon 2021 Basophil percentage Not Reportable [facility] Work Phone: Basophil percentage 2.1 mg/dL 2.5-4.9 [facility] Work Phone: Bilirubin [Mass/Vol] 0.20 mg/dL 0.20-1.00 [facility] Work Phone: Comment on above: For patients on eltr ombopag therapy, use of Dimension Simon TBIL is not recommended. Chloride [Moles/Vol] 112 mmol/L 98-107 [facility] Work Phone: Glucose [Mass/Vol] 97 mg/dL 74-106 [facility] Work Phone: Neutrophils (Bld) [#/Vol] 2.8 10*3/uL 2.0-7.7 [facility] Work Phone: Potassium [Moles/Vol] 4.3 mmol/L 3.5-5.1 [facility] Work Phone: Protein [Mass/Vol] 6.3 g/dL 6.4-8.2 [facility] Work Phone: Sodium [Moles/Vol] 141 mmol/L 136-145 [facility] Work Phone: [phone] WBC (Bld) [#/Vol] 3.8 10*3/uL 4.4-11.0 [facility] Work Phone: Blood band neutrophil count as percentage of total leukocyteson 11-16-2021 Band form neutrophils/100 WBC (Bld) 2 % 0-5 [facility] Work Phone: [phone] Blood eosinophils/100 leukoc yteson 11-16-2021 Eosinophils/100 WBC (Bld) 6 % 0-5 [facility] Work Phone: Blood erythrocytes count (nu mber/volume)on 11-16-2021 RBC (Bld) [#/Vol] 3.80 10*6/uL 4.2-5.4 [facility] Work Phone: Blood hemoglobin measurement (mass/volume)on 11-16-2021 Hemoglobin (Bld) [Mass/Vol] 10.9 g/dL 12.0-15.0 [facility] Work Phone: [phone] Blood lymphocytes/100 leukoc yteson 11-16-2021 Lymphocytes/100 WBC (Bld) 14 % 19-41 [facility] Work Phone: Blood manual differential co mment interpretation (narrative result)on 11-16-2021 Manual differential comment Inder (Bld) [Interp] See comment [facility] Work Phone: Comment on above: LYMPHOPENIA NOTED Blood monocytes/100 leukocyt eson 11-16-2021 Monocytes/100 WBC (Bld) 6 % 0-10 [facility] Work Phone: Blood platelet adequacy dete ction by light microscopyon 11-16-2021 Platelets LM Ql (Bld) [facility] Work Phone: Blood platelet mean volumeon 11-16-2021 Platelet mean volume (Bld) [Entitic vol] 9.6 fL 6.2-12.0 [facility] Work Phone: Blood segmented neutrophils/ 100 leukocyteson 11-16-2021 Segmented neutrophils/100 WBC (Bld) 72 % 47-70 [facility] Work Phone: Determination of erythrocyte mean corpuscular volume (MCV)on 11-16-2021 MCV (RBC) [Entitic vol] 93.9 fL 81-99 [facility] Work Phone: Hematocrit Auto (Bld) [Volum e fraction]on 11-16-2021 Hematocrit (Bld) [Volume fraction] 35.7 % 37-47 [facility] Work Phone: Laboratory - Chemistry and C hemistry - challengeon 11-16-2021 ALP [Catalytic activity/Vol] 129 U/L 45-117 [facility] Work Phone: ALT [Catalytic activity/Vol] 20 U/L 13-56 [facility] Work Phone: CO2 [Moles/Vol] 23.0 mmol/L 21.0-32.0 [facility] Work Phone: Globulin (S) [Mass/Vol] 3.0 g/dL 2.2-4.2 [facility] Work Phone: Magnesium [Mass/Vol] 1.8 mg/dL 1.6-2.6 [facility] Work Phone: Urea nitrogen/Creatinine [Mass ratio] 18.6 mg/mg 10-20 [facility] Work Phone: Laboratory - Hematology and Cell countson 11-16-2021 Erythrocyte distribution width (RBC) [Entitic vol] 48.2 fL 35.1-43.9 [facility] Work Phone: Erythrocyte distribution width (RBC) [Ratio] 14.0 % 11.6-14.6 [facility] Work Phone: MCH (RBC) [Entitic mass] 28.7 pg 27.0-32.0 [facility] Work Phone: MCHC Auto (RBC) [Mass/Vol]on 11-16-2021 MCHC (RBC) [Mass/Vol] 30.5 g/dL 32-36 [facility] Work Phone: No Panel Informationon 11-16 Estimated GFR (MDRD) Amer 50 mL/min >60 [facility] Work Phone: Comment on above: GFR Calc Estimated GFR (MDRD) Non-Af Amer 41 mL/min >60 [facility] Work Phone: Comment on above: Non- GFR Calc Tacrolimus (Prograf) Level 6.4 ng/mL 2.0-20.0 [facility] Work Phone: Comment on above: Trough (immediately following transplant) 15.0 Trough (steady state, 2 weeks or more after transplant): 3.0 - 8.0 Performed by LC-MS/MS technology.Performed at: [address] [id number] Director: Amaury Dubois MD, Phone: [phone] Platelets bldon 11-16-2021 Platelets (Bld) [#/Vol] 352 10*3/uL 150-450 [facility] Work Phone: RBC morphologyon 11-16-2021 RBC morphology finding Nom (Bld) NORM C+C NORMAL NORM C&C [facility] Work Phone: Review by pathologiston 11-04 Pathologist review Inder (Unsp spec) [Interp] Reviewed [facility] Work Phone: Comment on above: Previous reported re sult: Therese castrejon Edited by: ISIDRO on 11/17/21:1306Leukopenia.Normocytic anemia.Clinical correlation necessary.Rufus Guzman M.D. 11/17/21 AMENDED REPORT 11/17/21 1306 PATH REV previously reported as: Therese castrejon Serum or plasma albumin osei urement (mass/volume)on 11-16-2021 Albumin [Mass/Vol] 3.3 g/dL 3.2-5.0 [facility] Work Phone: Serum or plasma albumin/glob ulin mass ratioon 11-16-2021 Albumin/Globulin [Mass ratio] 1.1 {ratio} 0.9-2.4 [facility] Work Phone: Serum or plasma calcium osei urement (mass/volume)on 11-16-2021 Calcium [Mass/Vol] 10.4 mg/dL 8.5-10.1 [facility] Work Phone: Serum or plasma creatinine m easurement (mass/volume)on 11-16-2021 Creatinine [Mass/Vol] 1.40 mg/dL 0.55-1.02 [facility] Work Phone: Comment on above: The validity of the calculated GFR & GFRAA in patients over 70 years has not been determined. Clinical correlation is essential. Serum or plasma urea nitroge n measurement (mass/volume)on 11-16-2021 Urea nitrogen [Mass/Vol] 26 mg/dL 7-18 [facility] Work Phone: Thin prep Papanicolaou smear with manual screeningon 11-16-2021 Thin prep Papanicolaou smear with manual screening 16 U/L 15-37 [facility] Work Phone: Thin prep Papanicolaou smear with manual screening 6 5-15 [facility] Work Phone: Total cell counton 2 Cells counted [employer] (Bld/Tiss) [#] 100 MANUAL DIFF [facility] Work Phone: Absolute lymphocyte counton 10-12-2021 Lymphocytes Auto (Unsp spec) [#/Vol] 0.40 10*3/uL 0.83-4.51 [facility] Work Phone: Basophil percentageon 2021 Basophil percentage Not Reportable [facility] Work Phone: Chloride [Moles/Vol] 113 mmol/L 98-107 [facility] Work Phone: Glucose [Mass/Vol] 105 mg/dL 74-106 [facility] Work Phone: Comment on above: Fasting Glucose resu lt from 100 to 125 mg/dL suggests IMPAIRED HOMEOSTASIS per A.D.A. criteria. Neutrophils (Bld) [#/Vol] 3.8 10*3/uL 2.0-7.7 [facility] Work Phone: Potassium [Moles/Vol] 4.9 mmol/L 3.5-5.1 [facility] Work Phone: Comment on above: Slight Hemolysis, Re sult may be falsely increased. Sodium [Moles/Vol] 139 mmol/L 136-145 [facility] Work Phone: [phone] WBC (Bld) [#/Vol] 5.1 10*3/uL 4.4-11.0 [facility] Work Phone: Blood basophils/100 leukocyt eson 10-12-2021 Basophils/100 WBC (Bld) 2 % 0-1 [facility] Work Phone: Blood eosinophils/100 leukoc yteson 10-12-2021 Eosinophils/100 WBC (Bld) 9 % 0-5 [facility] Work Phone: Blood erythrocytes count (nu mber/volume)on 10-12-2021 RBC (Bld) [#/Vol] 3.64 10*6/uL 4.2-5.4 [facility] Work Phone: Blood hemoglobin measurement (mass/volume)on 10-12-2021 Hemoglobin (Bld) [Mass/Vol] 10.2 g/dL 12.0-15.0 [facility] Work Phone: Blood lymphocytes/100 leukoc yteson 10-12-2021 Lymphocytes/100 WBC (Bld) 7 % 19-41 [facility] Work Phone: Blood monocytes/100 leukocyt eson 10-12-2021 Monocytes/100 WBC (Bld) 8 % 0-10 [facility] Work Phone: Blood platelet adequacy dete ction by light microscopyon 10-12-2021 Platelets LM Ql (Bld) [facility] Blood platelet mean volumeon 10-12-2021 Platelet mean volume (Bld) [Entitic vol] 10.5 fL 6.2-12.0 [facility] Work Phone: Blood segmented neutrophils/ 100 leukocyteson 10-12-2021 Segmented neutrophils/100 WBC (Bld) 74 % 47-70 [facility] Work Phone: Determination of erythrocyte mean corpuscular volume (MCV)on 10-12-2021 MCV (RBC) [Entitic vol] 88.7 fL 81-99 [facility] Work Phone: Hematocrit Auto (Bld) [Volum e fraction]on 10-12-2021 Hematocrit (Bld) [Volume fraction] 32.3 % 37-47 [facility] Work Phone: Laboratory - Chemistry and C hemistry - challengeon 10-12-2021 CO2 [Moles/Vol] 19.0 mmol/L 21.0-32.0 [facility] Work Phone: Laboratory - Hematology and Cell countson 10-12-2021 Erythrocyte distribution width (RBC) [Entitic vol] 47.1 fL 35.1-43.9 [facility] Work Phone: Erythrocyte distribution width (RBC) [Ratio] 14.6 % 11.6-14.6 [facility] Work Phone: MCH (RBC) [Entitic mass] 28.0 pg 27.0-32.0 [facility] Work Phone: MCHC Auto (RBC) [Mass/Vol]on 10-12-2021 MCHC (RBC) [Mass/Vol] 31.6 g/dL 32-36 [facility] Work Phone: No Panel Informationon 10-12 Estimated GFR (MDRD) Amer 55 mL/min >60 [facility] Work Phone: Comment on above: GFR Calc Estimated GFR (MDRD) Non-Af Amer 46 mL/min >60 [facility] Work Phone: Comment on above: Non- GFR Calc Parathyroid Hormone (Intact) 218.3 pg/mL 18.4-80.1 [facility] Work Phone: Tacrolimus (Prograf) Level 6.5 ng/mL 2.0-20.0 [facility] Work Phone: Comment on above: Trough (immediately following transplant) 15.0 Trough (steady state, 2 weeks or more after transplant): 3.0 - 8.0 Performed by LC-MS/MS technology.Performed at: [address] [id number] Director: Amaury Dubois MD, Phone: [phone] Platelets bldon 10-12-2021 Platelets (Bld) [#/Vol] 307 10*3/uL 150-450 [facility] Work Phone: RBC morphologyon 10-12-2021 RBC morphology finding Nom (Bld) NORM C+C NORMAL NORM C&C [facility] Work Phone: Review by pathologiston Pathologist review Inder (Unsp spec) [Interp] Reviewed [facility] Work Phone: Comment on above: Previous reported re sult: October cash Edited by: ISIDRO on 10/13/21:1118Normocytic anemia.Clinical correlation necessary.Rufsu Guzman M.D. 10/13/21 AMENDED REPORT 10/13/21 1118 PATH REV previously reported as: October Serum or plasma creatinine m easurement (mass/volume)on 10-12-2021 Creatinine [Mass/Vol] 1.27 mg/dL 0.55-1.02 [facility] Work Phone: Comment on above: The validity of the calculated GFR & GFRAA in patients over 70 years has not been determined. Clinical correlation is essential. Serum or plasma urea nitroge n measurement (mass/volume)on 10-12-2021 Urea nitrogen [Mass/Vol] 18 mg/dL 7-18 [facility] Work Phone: Total cell counton 2 Cells counted Molgen (Bld/Tiss) [#] 100 MANUAL DIFF [facility] Work Phone: Whole blood hemoglobin A1c/t otal hemoglobin ratio (mass fraction)on 10-12-2021 HbA1c (Bld) [Mass fraction] 5.5 % 3.8-5.6 [facility] Work Phone: Comment on above: Normal < 5.7 % Predi abetic 5.7 - 6.4 % Diabetic >or= 6.5 % Please note range changes. Absolute lymphocyte counton 09-22-2021 Lymphocytes Auto (Unsp spec) [#/Vol] 0.50 10*3/uL 0.83-4.51 [facility] Work Phone: Basophil percentageon 2021 Basophil percentage Not Reportable W [facility] Work Phone: Neutrophils (Bld) [#/Vol] 2.5 10*3/uL 2.0-7.7 [facility] Work Phone: WBC (Bld) [#/Vol] 3.7 10*3/uL 4.4-11.0 [facility] Work Phone: Blood eosinophils/100 leukoc yteson 09-22-2021 Eosinophils/100 WBC (Bld) 5 % 0-5 [facility] Work Phone: Blood erythrocytes count (nu mber/volume)on 09-22-2021 RBC (Bld) [#/Vol] 3.67 10*6/uL 4.2-5.4 [facility] Work Phone: Blood hemoglobin measurement (mass/volume)on 09-22-2021 Hemoglobin (Bld) [Mass/Vol] 10.2 g/dL 12.0-15.0 [facility] Work Phone: Blood lymphocytes/100 leukoc yteson 09-22-2021 Lymphocytes/100 WBC (Bld) 13 % 19-41 [facility] Work Phone: Blood monocytes/100 leukocyt eson 09-22-2021 Monocytes/100 WBC (Bld) 15 % 0-10 [facility] Work Phone: Blood platelet adequacy dete ction by light microscopyon 09-22-2021 Platelets LM Ql (Bld) SLT INC ADEQ [facility] Work Phone: Blood platelet mean volumeon 09-22-2021 Platelet mean volume (Bld) [Entitic vol] 9.9 fL 6.2-12.0 [facility] Work Phone: Blood segmented neutrophils/ 100 leukocyteson 09-22-2021 Segmented neutrophils/100 WBC (Bld) 67 % 47-70 [facility] Work Phone: Determination of erythrocyte mean corpuscular volume (MCV)on 09-22-2021 MCV (RBC) [Entitic vol] 89.9 fL 81-99 [facility] Work Phone: Hematocrit Auto (Bld) [Volum e fraction]on 09-22-2021 Hematocrit (Bld) [Volume fraction] 33.0 % 37-47 [facility] Work Phone: Laboratory - Hematology and Cell countson 09-22-2021 Anisocytosis Ql (Bld) 1+ [facility] Work Phone: Erythrocyte distribution width (RBC) [Entitic vol] 46.9 fL 35.1-43.9 [facility] Work Phone: Erythrocyte distribution width (RBC) [Ratio] 14.5 % 11.6-14.6 [facility] Work Phone: MCH (RBC) [Entitic mass] 27.8 pg 27.0-32.0 [facility] Work Phone: MCHC Auto (RBC) [Mass/Vol]on 09-22-2021 MCHC (RBC) [Mass/Vol] 30.9 g/dL 32-36 [facility] Work Phone: No Panel Informationon 09-22 Tacrolimus (Prograf) Level 7.8 ng/mL 2.0-20.0 [facility] Work Phone: Comment on above: Trough (immediately following transplant) 15.0 Trough (steady state, 2 weeks or more after transplant): 3.0 - 8.0 Performed by LC-MS/MS technology.Performed at: [address] [id number] Director: Amaury Dubois MD, Phone: [phone] Ovalocyte detectionon 2021 Ovalocytes LM Ql (Bld) 1+ [facility] Work Phone: Platelets bldon 09-22-2021 Platelets (Bld) [#/Vol] 413 10*3/uL 150-450 [facility] Work Phone: Review by pathologiston 09-04 Pathologist review Inder (Unsp spec) [Interp] Reviewed [facility] Work Phone: Comment on above: Previous reported re sult: Therese castrejon Edited by: RGOOD on 09/23/21:1349Normocytic anemia.Clinical correlation necessary.Rufus Guzman M.D. 09/23/21 AMENDED REPORT 09/23/21 1349 PATH REV previously reported as: Therese castrejon Total cell counton 2 Cells counted Molgen (Bld/Tiss) [#] 100 MANUAL DIFF [facility] Work Phone: BK VIRUS DNA QN, PCR, PLASMA Ordered By: Tari Bowman on 09-15-2021 BK virus DNA NORA+probe Qn <500 <500 copies/mL [facility] Interpretation and review of laboratory results Normal [facility] This test was perfor med using a real time PCR assay. The dynamic range for this assay is 500-5,000,000 copies/mL. This test was developed and its performance characteristics determined by The [facility] at [facility]. It has not been cleared or approved by the FDA. The laboratory is regulated under CLIA as qualified to perform high-complexity testing. This test is used for clinical purposes. It should not be regarded as investigational or for research. [facility] ALLOSCREEN RECIPIENT (POST T X PRA)on 09-14-2021 AB SPECIFICITY CLASS COMMENT Antibody Specificity testing performed by [employer]. cPRA calculation based on identification of HLA antibody specificities at MFI >2000 and/or presence of CREG antibodies. [facility] Comment on above: Some of the reagents used for testing in the Clinical Histocompatibility Laboratory have yet to be approved by the FDA. Our certification by CLIA to perform high complexity tests allows us to use these reagents in the context of a stringent QC program, and obviates the need for FDA approval.Testing performed by the [facility] Clinical Histocompatibility Laboratory. [facility] number: [id number]. CLIA number: [id number], Director: Lawson Christianson, PhD, D([facility]). ANTIBODY SPECIFICITY INTERPRETATION Detected [facility] CLASS I SPECIFICITIES A:2 68 69 B:57 [facility] CLASS II SPECIFICITIES DQ:5 6 [facility] HLA Ab (S) 83 % High 0 [facility] Interpretation and review of laboratory results Abnormal [facility] CALCIUMon 09-11-2021 Calcium [Mass/Vol] 10.4 mg/dL 8.6 - 10. 5 mg/dL [facility] CBC,PLATELETSon 09-11-2021 Erythrocyte distribution width (RBC) [Ratio] 13.3 % 10.8 - 14.9 % [facility] Hematocrit (Bld) [Volume fraction] 32.3 % Low 34.9 - 44.3 % [facility] Hemoglobin (Bld) [Mass/Vol] 10.2 g/dL Low 11.4 - 15.2 g/dL [facility] Interpretation and review of laboratory results Abnormal [facility] MCH (RBC) [Entitic mass] 28.3 pg 25.9 - 33.9 pg [facility] MCHC (RBC) [Mass/Vol] 31.6 g/dL 31.4 - 35.9 g/dL [facility] MCV (RBC) [Entitic vol] 89.5 fL 79.6 - 97.7 fL [facility] Platelet mean volume (Bld) [Entitic vol] 9.7 fL 8.5 - 12.2 fL [facility] Platelets (Bld) [#/Vol] 365 10*3/uL 150 - 393 K/uL [facility] RBC (Bld) [#/Vol] 3.61 10*6/uL Low [facility] WBC (Bld) [#/Vol] 1.79 10*3/uL Low 3.99 - 11.19 K/uL [facility] CHEM 7 (LYTES,BUN,CREA,GLUC) on 09-11-2021 Anion gap [Moles/Vol] 16 mmol/L 7 - 17 mmol/L [facility] Chloride [Moles/Vol] 105 mmol/L 98 - 10 8 mmol/L [facility] CO2 [Moles/Vol] 19 mmol/L Low 21 - 31 mmol/L [facility] Creatinine [Mass/Vol] 1.51 mg/dL High 0.50 - 1.20 mg/dL [facility] GFR/1.73 sq M.predicted CKD-EPI (S/P/Bld) [Vol rate/Area] 40 Low >=60 mL/min/1.7 3m2 [facility] Comment on above: Reported eGFR is bas ed on the CKD-EPI 2020 equation using creatinine, age, and sex. Glucose [Mass/Vol] 94 mg/dL 70 - 99 mg/dL [facility] Osmolality Calc [Osmolality] 289 [facility] Potassium [Moles/Vol] 4.0 mmol/L 3.5 - 5.0 mmol/L [facility] Sodium [Moles/Vol] 136 mmol/L 135 - 145 mmol/L [facility] Urea nitrogen [Mass/Vol] 23 mg/dL 7 - 25 mg/dL [facility] Urea nitrogen/Creatinine [Mass ratio] 15 mg/mg [facility] CHOLESTEROL TOTALon 09-12-19 Cholesterol [Mass/Vol] 124 mg/dL <200 [facility] Comment on above: [<200 mg/dL: Desirab le] [200-239 mg/dL: Borderline High] [>239 mg/dL: High] HEMOGLOBIN [id number] By: Noemi Powell on 09-11-2021 Average glucose Estimated from glycated hemoglobin (Bld) [Mass/Vol] 120 mg/dL [facility] HbA1c (Bld) [Mass fraction] 5.8 % High 4.7 - 5.6 % [facility] Interpretation and review of laboratory results Abnormal [facility] HEPATIC FUNCTION PANELon Albumin [Mass/Vol] 3.6 g/dL 3.5 - 5.0 g/dL [facility] ALP [Catalytic activity/Vol] 103 U/L 32 - 126 U/L [facility] ALT [Catalytic activity/Vol] 16 U/L 9 - 48 U/L [facility] AST [Catalytic activity/Vol] 19 U/L 10 - 39 U/L [facility] Bilirubin [Mass/Vol] 0.3 mg/dL <1.5 [facility] Bilirubin.direct [Mass/Vol] 0.1 mg/dL <0.3 [facility] Protein [Mass/Vol] 6.3 g/dL Low 6.4 - 8.3 g/dL [facility] IRON/IRON BINDING/TRANSFERRI Non 09-11-2021 Iron [Mass/Vol] 39 ug/dL Low [facility] Iron binding capacity [Mass/Vol] 177 Low [facility] Iron saturation [Mass fraction] 22 % 20 - 55 % [facility] Transferrin [Mass/Vol] 119 mg/dL Low 200 - 400 mg/dL [facility] MAGNESIUMon 09-11-2021 Magnesium [Mass/Vol] 1.2 mg/dL Low 1.6 - 2 .6 mg/dL [facility] No Panel Informationon 09-11 Interpretation and review of laboratory results Abnormal [facility] Interpretation and review of laboratory results Normal [facility] PHOSPHATE, INORGANICon 09-11 Interpretation and review of laboratory results Abnormal [facility] Phosphate [Mass/Vol] 1.9 mg/dL Low 2.2 - 4 .6 mg/dL [facility] PTH INTACTon 09-11-2021 Interpretation and review of laboratory results Abnormal [facility] Parathyrin.intact [Mass/Vol] 156.5 pg/mL High 14.0 - 72.0 pg/mL [facility] URIC ACIDon 09-11-2021 Interpretation and review of laboratory results Normal [facility] Urate [Mass/Vol] 4.5 mg/dL 2.8 - 6.0 mg/dL [facility] URINE DIPSTICK WITH REFLEX M ICROSCOPYon 09-11-2021 Appearance (U) Cloudy Abnormal Clear [facility] Color (U) Yellow Yellow [facility] Glucose Test strip (U) [Mass/Vol] Negative Negative [facility] Interpretation and review of laboratory results Abnormal [facility] Ketones (U) [Mass/Vol] 15 mg/dL = Small Abnormal Negative [facility] Leukocyte esterase Test strip Ql (U) Trace Abnormal Negative [facility] Nitrite Ql (U) Positive Abnormal Negative [facility] pH (U) 5.0 [pH] 5.0 - 7.0 [facility] Protein (U) [Mass/Vol] Trace Abnormal Negative [facility] RBC (U) [#/Vol] Negative Negative [facility] Specific gravity (U) [Rel density] 1.027 [facility] Urobilinogen (U) [Mass/Vol] 0.2 E.U./dL 0.2 E.U/dL, 1.0 E.U/dL [facility] URINE MICROSCOPICOrdered By: Humberto Guardado on 09-11-2021 Bacteria LM Ql (Urine sed) PRESENT Abnormal ABSENT [facility] Calcium Oxalate Crystals PRESENT [facility] Epithelial cells.squamous LM Ql (Urine sed) >8/hpf = 4+ Abnormal 1/hpf = 1+, 2-5/hpf = 2+, 0/hpf = 0+, ABSENT [facility] Interpretation and review of laboratory results Abnormal [facility] RBC LM.HPF (Urine sed) [#/Area] 0-2 0 - 2 /HPF [facility] WBC LM.HPF (Urine sed) [#/Area] 10-20 Abnormal 0 - 5 /HPF [facility] URINE PROTEIN/CREA RATIO, RA NDOMon 09-11-2021 Creatinine (24H U) [Mass/Vol] 237.97 mg/dL [facility] Protein Unsp time (U) [Mass/Vol] 51 mg/dL [facility] Protein/Creatinine (U) [Mass ratio] 0.214 mg/g [facility] Absolute lymphocyte counton 09-09-2021 Lymphocytes Auto (Unsp spec) [#/Vol] 0.31 10*3/uL 0.83-4.51 [facility] Work Phone: Basophil percentageon 2021 Basophil percentage 0-5 SEEN /hpf 0-5 [facility] Work Phone: Basophil percentage Not Reportable W [facility] Work Phone: Bilirubin [Mass/Vol] 0.40 mg/dL 0.20-1.00 [facility] Work Phone: Comment on above: For patients on eltr ombopag therapy, use of Dimension Simon TBIL is not recommended. Chloride [Moles/Vol] 105 mmol/L 98-107 [facility] Work Phone: Glucose [Mass/Vol] 138 mg/dL 74-106 [facility] Work Phone: Comment on above: Fasting Glucose resu lt greater than or equal to 126 mg/dL suggests DIABETES MELLITUS per A.D.A. criteria. Lactate [Moles/Vol] 1.2 mmol/L 0.4-2.0 [facility] Work Phone: Neutrophils (Bld) [#/Vol] 2.3 10*3/uL 2.0-7.7 [facility] Work Phone: Potassium [Moles/Vol] 4.1 mmol/L 3.5-5.1 [facility] Work Phone: Protein [Mass/Vol] 6.3 g/dL 6.4-8.2 [facility] Work Phone: [phone] Sodium [Moles/Vol] 133 mmol/L 136-145 [facility] Work Phone: WBC (Bld) [#/Vol] 3.1 10*3/uL 4.4-11.0 [facility] Work Phone: Bilirubin Test strip Ql (U)o n 09-09-2021 Bilirubin Ql (U) Negative Negative [facility] Work Phone: Blood band neutrophil count as percentage of total leukocyteson 09-09-2021 Band form neutrophils/100 WBC (Bld) 2 % 0-5 [facility] Work Phone: Blood eosinophils/100 leukoc yteson 09-09-2021 Eosinophils/100 WBC (Bld) 2 % 0-5 [facility] Work Phone: Blood erythrocytes count (nu mber/volume)on 09-09-2021 RBC (Bld) [#/Vol] 3.57 10*6/uL 4.2-5.4 [facility] Work Phone: Blood hemoglobin measurement (mass/volume)on 09-09-2021 Hemoglobin (Bld) [Mass/Vol] 9.9 g/dL 12.0-15.0 [facility] Work Phone: Blood lymphocytes/100 leukoc yteson 09-09-2021 Lymphocytes/100 WBC (Bld) 10 % 19-41 [facility] Work Phone: Blood metamyelocytes/100 pao kocyteson 09-09-2021 Metamyelocytes/100 WBC (Bld) 1 % 0-1 [facility] Work Phone: Blood monocytes/100 leukocyt eson 09-09-2021 Monocytes/100 WBC (Bld) 9 % 0-10 [facility] Work Phone: Blood platelet adequacy dete ction by light microscopyon 09-09-2021 Platelets LM Ql (Bld) ADEQUATE ADEQ [facility] Work Phone: Blood platelet mean volumeon 09-09-2021 Platelet mean volume (Bld) [Entitic vol] 9.3 fL 6.2-12.0 [facility] Work Phone: Blood segmented neutrophils/ 100 leukocyteson 09-09-2021 Segmented neutrophils/100 WBC (Bld) 73 % 47-70 [facility] Work Phone: Culture, urineon 09-09-2021 Bacteria identified Cx Nom (U) Escherichia coli [facility] Work Phone: Determination of erythrocyte mean corpuscular volume (MCV)on 09-09-2021 MCV (RBC) [Entitic vol] 88.8 fL 81-99 [facility] Work Phone: Hematocrit Auto (Bld) [Volum e fraction]on 09-09-2021 Hematocrit (Bld) [Volume fraction] 31.7 % 37-47 [facility] Work Phone: Ketones Test strip Ql (U)on 09-09-2021 Ketones Ql (U) Negative Negative [facility] Work Phone: Laboratory - Chemistry and C hemistry - challengeon 09-09-2021 ALP [Catalytic activity/Vol] 113 U/L 45-117 [facility] Work Phone: ALT [Catalytic activity/Vol] 17 U/L 13-56 [facility] Work Phone: CO2 [Moles/Vol] 22.0 mmol/L 21.0-32.0 [facility] Work Phone: Globulin (S) [Mass/Vol] 3.3 g/dL 2.2-4.2 [facility] Work Phone: Urea nitrogen/Creatinine [Mass ratio] 11.5 mg/mg 10-20 [facility] Work Phone: Laboratory - Hematology and Cell countson 09-09-2021 Erythrocyte distribution width (RBC) [Entitic vol] 43.1 fL 35.1-43.9 [facility] Work Phone: Erythrocyte distribution width (RBC) [Ratio] 13.2 % 11.6-14.6 [facility] Work Phone: MCH (RBC) [Entitic mass] 27.7 pg 27.0-32.0 [facility] Work Phone: Myelocytes/100 WBC (Bld) 3 % 0-0 [facility] Work Phone: Laboratory - Microbiology an d Antimicrobial susceptibilityon 09-09-2021 Bacteria identified Cx Nom (Bld) Escherichia coli [facility] Work Phone: MCHC Auto (RBC) [Mass/Vol]on 09-09-2021 MCHC (RBC) [Mass/Vol] 31.2 g/dL 32-36 [facility] Work Phone: Mucus LM Ql (Urine sed)on Mucus Ql (Urine sed) 0 SEEN /hpf [facility] Work Phone: Nitrite Test strip Ql (U)on 09-09-2021 Nitrite Ql (U) Negative Negative [facility] Work Phone: No Panel Informationon 09-09 Estimated Creatinine Clearance Calc 29.76 ml/min [facility] Work Phone: Estimated GFR (MDRD) Amer 47 mL/min >60 [facility] Work Phone: Comment on above: GFR Calc Estimated GFR (MDRD) Non-Af Amer 38 mL/min >60 [facility] Work Phone: Comment on above: Non- GFR Calc SARS-CoV-2 & FLU Antigen (Rapid) [facility] Work Phone: Platelets bldon 09-09-2021 Platelets (Bld) [#/Vol] 329 10*3/uL 150-450 [facility] Work Phone: Protein Test strip Ql (U)on 09-09-2021 Protein Ql (U) 15 mg/dl Negative [facility] Work Phone: RBC morphologyon 09-09-2021 RBC morphology finding Nom (Bld) NORM C+C NORMAL NORM C&C [facility] Work Phone: Review by pathologiston Pathologist review Inder (Unsp spec) [Interp] Reviewed [facility] Work Phone: Comment on above: Previous reported re sult: Therese castrejon Edited by: RGOMINNIE on 09/10/21:1126LeukopeniaNormocytic anemia.Clinical correlation necessary.Rufus Guzman M.D. 09/10/21 AMENDED REPORT 09/10/21 1126 PATH REV previously reported as: Therese castrejon Serum or plasma albumin osei urement (mass/volume)on 09-09-2021 Albumin [Mass/Vol] 3.0 g/dL 3.2-5.0 [facility] Work Phone: Serum or plasma albumin/glob ulin mass ratioon 09-09-2021 Albumin/Globulin [Mass ratio] 0.9 {ratio} 0.9-2.4 [facility] Work Phone: Serum or plasma calcium osei urement (mass/volume)on 09-09-2021 Calcium [Mass/Vol] 9.8 mg/dL 8.5-10.1 [facility] Work Phone: Serum or plasma creatinine m easurement (mass/volume)on 09-09-2021 Creatinine [Mass/Vol] 1.48 mg/dL 0.55-1.02 [facility] Work Phone: Comment on above: The validity of the calculated GFR & GFRAA in patients over 70 years has not been determined. Clinical correlation is essential. Serum or plasma urea nitroge n measurement (mass/volume)on 09-09-2021 Urea nitrogen [Mass/Vol] 17 mg/dL 7-18 [facility] Work Phone: Squamous epithelial cells de tection in urine sediment by light microscopyon 09-09-2021 Epithelial cells.squamous LM Ql (Urine sed) 0-5 SEEN /hpf 5-10 [facility] Work Phone: Thin prep Papanicolaou smear with manual screeningon 09-09-2021 Thin prep Papanicolaou smear with manual screening 16 U/L 15-37 [facility] Work Phone: Thin prep Papanicolaou smear with manual screening 6 5-15 [facility] Work Phone: Total cell counton 2 Cells counted Molgen (Bld/Tiss) [#] 100 MANUAL DIFF [facility] Work Phone: Urine blood detectionon 04-0 RBC Ql (U) 10 /ul Negative [facility] Work Phone: RBC Ql (U) 0-5 SEEN /hpf 0-5 [facility] Work Phone: Urine clarityon 09-09-2021 Clarity (U) Clear Clear [facility] Work Phone: Urine color determinationon 09-09-2021 Color (U) Yellow Yellow [facility] Work Phone: Urine glucose detectionon Glucose Ql (U) Normal mg/dl Normal [facility] Work Phone: Urine leukocyte esterase det ection by dipstickon 09-09-2021 Leukocyte esterase Test strip Ql (U) 25 /ul Negative [facility] Work Phone: Urine pHon 09-09-2021 pH (U) 5.0 [pH] 5.0 - 8.0 [facility] Work Phone: Urine sediment bacteria coun t by microscopy (number/high power field)on 09-09-2021 Bacteria LM.HPF (Urine sed) [#/Area] 1 /[HPF] None Seen [facility] Work Phone: Urine specific gravity measu rementon 09-09-2021 Specific gravity (U) [Rel density] 1.020 1.002-1.03 0 [facility] Work Phone: Urobilinogen Auto test strip Ql (U)on 09-09-2021 Urobilinogen Ql (U) Normal mg/dl Normal [facility] Work Phone: Basophil percentageon 2021 Chloride [Moles/Vol] 112 mmol/L 98-107 [facility] Work Phone: Glucose [Mass/Vol] 105 mg/dL 74-106 [facility] Work Phone: Comment on above: Fasting Glucose resu lt from 100 to 125 mg/dL suggests IMPAIRED HOMEOSTASIS per A.D.A. criteria. Potassium [Moles/Vol] 4.4 mmol/L 3.5-5.1 [facility] Work Phone: Sodium [Moles/Vol] 141 mmol/L 136-145 [facility] Work Phone: WBC (Bld) [#/Vol] 3.8 10*3/uL 4.4-11.0 [facility] Work Phone: Blood erythrocytes count (nu mber/volume)on 09-07-2021 RBC (Bld) [#/Vol] 3.62 10*6/uL 4.2-5.4 [facility] Work Phone: Blood hemoglobin measurement (mass/volume)on 09-07-2021 Hemoglobin (Bld) [Mass/Vol] 10.1 g/dL 12.0-15.0 [facility] Work Phone: Blood platelet mean volumeon 09-07-2021 Platelet mean volume (Bld) [Entitic vol] 9.9 fL 6.2-12.0 [facility] Work Phone: Determination of erythrocyte mean corpuscular volume (MCV)on 09-07-2021 MCV (RBC) [Entitic vol] 90.6 fL 81-99 [facility] Work Phone: Hematocrit Auto (Bld) [Volum e fraction]on 09-07-2021 Hematocrit (Bld) [Volume fraction] 32.8 % 37-47 [facility] Work Phone: Laboratory - Chemistry and C hemistry - challengeon 09-07-2021 CO2 [Moles/Vol] 22.0 mmol/L 21.0-32.0 [facility] Work Phone: Laboratory - Hematology and Cell countson 09-07-2021 Erythrocyte distribution width (RBC) [Entitic vol] 44.4 fL 35.1-43.9 [facility] Work Phone: Erythrocyte distribution width (RBC) [Ratio] 13.4 % 11.6-14.6 [facility] Work Phone: MCH (RBC) [Entitic mass] 27.9 pg 27.0-32.0 [facility] Work Phone: MCHC Auto (RBC) [Mass/Vol]on 09-07-2021 MCHC (RBC) [Mass/Vol] 30.8 g/dL 32-36 [facility] Work Phone: No Panel Informationon 09-07 Estimated GFR (MDRD) Amer 49 mL/min >60 [facility] Work Phone: Comment on above: GFR Calc Estimated GFR (MDRD) Non-Af Amer 40 mL/min >60 [facility] Work Phone: Comment on above: Non- GFR Calc Tacrolimus (Prograf) Level 10.3 ng/mL 2.0-20.0 [facility] Work Phone: Comment on above: Trough (immediately following transplant) 15.0 Trough (steady state, 2 weeks or more after transplant): 3.0 - 8.0 Performed by LC-MS/MS technology.Performed at: [address] [id number] Director: Amaury Dubois MD, Phone: [phone] Platelets bldon 09-07-2021 Platelets (Bld) [#/Vol] 414 10*3/uL 150-450 [facility] Work Phone: Serum or plasma creatinine m easurement (mass/volume)on 09-07-2021 Creatinine [Mass/Vol] 1.42 mg/dL 0.55-1.02 [facility] Work Phone: Comment on above: The validity of the calculated GFR & GFRAA in patients over 70 years has not been determined. Clinical correlation is essential. Serum or plasma urea nitroge n measurement (mass/volume)on 09-07-2021 Urea nitrogen [Mass/Vol] 17 mg/dL 7-18 [facility] Work Phone: Thin prep Papanicolaou smear with manual screeningon 09-07-2021 Thin prep Papanicolaou smear with manual screening 7 5-15 [facility] Work Phone: Basophil percentageon 2021 Basophil percentage 1.9 mg/dL 2.5-4.9 [facility] Work Phone: Bilirubin [Mass/Vol] 0.30 mg/dL 0.20-1.00 [facility] Work Phone: Comment on above: For patients on eltr ombopag therapy, use of Dimension Simon TBIL is not recommended. Chloride [Moles/Vol] 115 mmol/L 98-107 [facility] Work Phone: Cholesterol [Mass/Vol] 139 mg/dL <200 [facility] Work Phone: Comment on above: <200 mg/dL Desirable 200-240 mg/dL Borderline >240 mg/dL High Risk Glucose [Mass/Vol] 103 mg/dL 74-106 [facility] Work Phone: Comment on above: Fasting Glucose resu lt from 100 to 125 mg/dL suggests IMPAIRED HOMEOSTASIS per A.D.A. criteria. Potassium [Moles/Vol] 3.9 mmol/L 3.5-5.1 [facility] Work Phone: Sodium [Moles/Vol] 142 mmol/L 136-145 [facility] Work Phone: Triglyceride [Mass/Vol] 151 mg/dL <199 [facility] Work Phone: Comment on above: The drugs N-Acetylcy steine and Metamizole may falsely depress this assay.Serum Triglycerides Reference Interval Normal <150 mg/dL Borderline high 150 - 199 mg/dL High 200 - 499 mg/dL Very High > or = 500 mg/dL WBC (Bld) [#/Vol] 4.2 10*3/uL 4.4-11.0 [facility] Work Phone: Blood erythrocytes count (nu mber/volume)on 08-24-2021 RBC (Bld) [#/Vol] 4.04 10*6/uL 4.2-5.4 [facility] Work Phone: Blood hemoglobin measurement (mass/volume)on 08-24-2021 Hemoglobin (Bld) [Mass/Vol] 11.7 g/dL 12.0-15.0 [facility] Work Phone: Blood platelet mean volumeon 08-24-2021 Platelet mean volume (Bld) [Entitic vol] 10.1 fL 6.2-12.0 [facility] Work Phone: Determination of erythrocyte mean corpuscular volume (MCV)on 08-24-2021 MCV (RBC) [Entitic vol] 90.3 fL 81-99 [facility] Work Phone: Hematocrit Auto (Bld) [Volum e fraction]on 08-24-2021 Hematocrit (Bld) [Volume fraction] 36.5 % 37-47 [facility] Work Phone: Iron measurement (mass/mass) on 08-24-2021 Iron (Unsp spec) [Mass/Mass] 87 ug/dL 50-170 [facility] Work Phone: Laboratory - Chemistry and C hemistry - challengeon 08-24-2021 ALP [Catalytic activity/Vol] 146 U/L 45-117 [facility] Work Phone: ALT [Catalytic activity/Vol] 22 U/L 13-56 [facility] Work Phone: CO2 [Moles/Vol] 23.0 mmol/L 21.0-32.0 [facility] Work Phone: Magnesium [Mass/Vol] 1.4 mg/dL 1.6-2.6 [facility] Work Phone: Transferrin [Mass/Vol] 143 mg/dL 192-364 [facility] Work Phone: Comment on above: Performed at: - [address] [id number] Director: Amaury Dubois MD, Phone: [phone] at: - [facility] [id number] Director: Marcello Kwon PhD, Phone: [phone] Urea nitrogen/Creatinine [Mass ratio] 15.1 mg/mg 10-20 [facility] Work Phone: Laboratory - Hematology and Cell countson 08-24-2021 Erythrocyte distribution width (RBC) [Entitic vol] 43.1 fL 35.1-43.9 [facility] Work Phone: Erythrocyte distribution width (RBC) [Ratio] 13.1 % 11.6-14.6 [facility] Work Phone: MCH (RBC) [Entitic mass] 29.0 pg 27.0-32.0 [facility] Work Phone: MCHC Auto (RBC) [Mass/Vol]on 08-24-2021 MCHC (RBC) [Mass/Vol] 32.1 g/dL 32-36 [facility] Work Phone: No Panel Informationon 08-24 Cytomegalovirus DNA Qual (PCR) Negative Negative [facility] Work Phone: Comment on above: No Cytomegalovirus D NA Detected.This test was developed and its performance characteristicsdetermined by [employer]. It has not been cleared or approvedby the Food and Drug Administration. The FDA hasdetermined that such clearance or approval is notnecessary. Estimated GFR (MDRD) Amer 56 mL/min >60 [facility] Work Phone: Comment on above: GFR Calc Estimated GFR (MDRD) Non-Af Amer 46 mL/min >60 [facility] Work Phone: Comment on above: Non- GFR Calc Miscellaneous Test See comment [facility] Work Phone: Comment on above: TEST RESULT LIMITSBK V Quant PCR BKV DNA,Quant PCR,Plasma Negative IU/mL Negative NO BK DNA detected. The linear range of the assay is 22-100,000 IU/mL. TESTING PERFORMED AT [facility]. ORIGINAL REPORT ON FILE IN LAB CONTAINS ADDITIONAL TEST SITE INFORMATION. Parathyroid Hormone (Intact) 182.8 pg/mL 18.4-80.1 [facility] Work Phone: Tacrolimus (Prograf) Level 9.6 ng/mL 2.0-20.0 [facility] Work Phone: Comment on above: Trough (immediately following transplant) 15.0 Trough (steady state, 2 weeks or more after transplant): 3.0 - 8.0 Performed by LC-MS/MS technology. Total Iron Binding Capacity 168 ug/dL 250-450 [facility] Work Phone: Platelets bldon 08-24-2021 Platelets (Bld) [#/Vol] 304 10*3/uL 150-450 [facility] Work Phone: Serum or plasma albumin osei urement (mass/volume)on 08-24-2021 Albumin [Mass/Vol] 3.3 g/dL 3.2-5.0 [facility] Work Phone: Serum or plasma calcium osei urement (mass/volume)on 08-24-2021 Calcium [Mass/Vol] 9.8 mg/dL 8.5-10.1 [facility] Work Phone: Serum or plasma cholesterol in HDL measurement (mass/volume)on 08-24-2021 Cholesterol in HDL [Mass/Vol] 61 mg/dL >40 [facility] Work Phone: Comment on above: The drugs N-Acetylcy steine and Metamizole may falsely depress this assay. Reference Range HDL <40 mg/dL Low HDL Cholesterol HDL >or= 60 mg/dL High HDL Cholesterol Serum or plasma cholesterol in VLDL measurement (mass/volume)on 08-24-2021 Cholesterol in VLDL [Mass/Vol] 30 mg/dL 5-40 [facility] Work Phone: Serum or plasma creatinine m easurement (mass/volume)on 08-24-2021 Creatinine [Mass/Vol] 1.26 mg/dL 0.55-1.02 [facility] Work Phone: Comment on above: The validity of the calculated GFR & GFRAA in patients over 70 years has not been determined. Clinical correlation is essential. Serum or plasma ferritin ace surement (mass/volume)on 08-24-2021 Ferritin [Mass/Vol] 2198 ng/mL 8-252 [facility] Work Phone: Serum or plasma iron saturat ion measurement (mass fraction)on 08-24-2021 Iron saturation [Mass fraction] 51.8 % 15.0-55.0 [facility] Work Phone: Serum or plasma low density lipoprotein (LDL) cholesterol measurement (mass/volume)on 08-24-2021 Cholesterol in LDL [Mass/Vol] 48 mg/dL 0-130 [facility] Work Phone: Serum or plasma urea nitroge n measurement (mass/volume)on 08-24-2021 Urea nitrogen [Mass/Vol] 19 mg/dL 7-18 [facility] Work Phone: Serum or plasma uric acid me asurement (mass/volume)on 08-24-2021 Urate [Mass/Vol] 4.4 mg/dL 2.6-6.0 [facility] Work Phone: Comment on above: The drugs N-Acetylcy steine and Metamizole may falsely depress this assay. Thin prep Papanicolaou smear with manual screeningon 08-24-2021 Thin prep Papanicolaou smear with manual screening 14 U/L 15-37 [facility] Work Phone: Thin prep Papanicolaou smear with manual screening 4 5-15 [facility] Work Phone: Urine creatinine measurement (mass/volume)on 08-24-2021 Creatinine (U) [Mass/Vol] 244.00 mg/dL NO RANGE EST. [facility] Work Phone: Urine protein measurement (m ass/volume)on 08-24-2021 Protein (U) [Mass/Vol] 30.9 mg/dL 0.0-11.8 [facility] Work Phone: Urine protein/creatinine mas s ratioon 08-24-2021 Protein/Creatinine (U) [Mass ratio] 127 mg/g CRE 0-200 [facility] Work Phone: Whole blood hemoglobin A1c/t otal hemoglobin ratio (mass fraction)on 08-24-2021 HbA1c (Bld) [Mass fraction] 5.9 % 3.8-5.6 [facility] Work Phone: Comment on above: Normal < 5.7 % Predi abetic 5.7 - 6.4 % Diabetic >or= 6.5 % Please note range changes. Absolute lymphocyte counton 08-10-2021 Lymphocytes Auto (Unsp spec) [#/Vol] 0.85 10*3/uL 0.83-4.51 [facility] Work Phone: Basophil percentageon 2021 Basophil percentage Not Reportable [facility] Work Phone: Neutrophils (Bld) [#/Vol] 2.5 10*3/uL 2.0-7.7 [facility] Work Phone: Blood band neutrophil count as percentage of total leukocyteson 08-10-2021 Band form neutrophils/100 WBC (Bld) 5 % 0-5 [facility] Work Phone: Blood basophils/100 leukocyt eson 08-10-2021 Basophils/100 WBC (Bld) 2 % 0-1 [facility] Work Phone: Blood eosinophils/100 leukoc yteson 08-10-2021 Eosinophils/100 WBC (Bld) 4 % 0-5 [facility] Work Phone: Blood lymphocytes/100 leukoc yteson 08-10-2021 Lymphocytes/100 WBC (Bld) 21 % 19-41 [facility] Work Phone: Blood metamyelocytes/100 pao kocyteson 08-10-2021 Metamyelocytes/100 WBC (Bld) 4 % 0-1 [facility] Work Phone: Blood monocytes/100 leukocyt eson 08-10-2021 Monocytes/100 WBC (Bld) 4 % 0-10 [facility] Work Phone: Blood platelet adequacy dete ction by light microscopyon 08-10-2021 Platelets LM Ql (Bld) SLT INC [facility]DEQ [facility]: [phone] Blood segmented neutrophils/ 100 leukocyteson 08-10-2021 Segmented neutrophils/100 WBC (Bld) 59 % 47-70 [facility] Work Phone: Laboratory - Hematology and Cell countson 08-10-2021 Myelocytes/100 WBC (Bld) 1 % 0-0 [facility] Work Phone: RBC morphologyon 08-10-2021 RBC morphology finding Nom (Bld) NORM C+C NORMAL NORM C&C [facility] Work Phone: Review by pathologiston 03-0 Pathologist review Inder (Unsp spec) [Interp] Reviewed [facility] Work Phone: [phone] Comment on above: Previous reported re sult: Therese cash Edited by: RGOOD on 08/11/21:1012 AMENDED REPORT 08/11/21 1012 PATH REV previously reported as: Therese castrejon Total cell counton 2 Cells counted Molgen (Bld/Tiss) [#] 100 MANUAL DIFF [facility] Work Phone: Absolute lymphocyte counton 08-01-2021 Lymphocytes Auto (Unsp spec) [#/Vol] 0.23 10*3/uL 0.83-4.51 [facility] Work Phone: [phone] Basophil percentageon 2021 Basophil percentage 10-25 SEEN /hpf [facility] Work Phone: Basophil percentage Not Reportable [facility] Work Phone: Chloride [Moles/Vol] 110 mmol/L 98-[address] [facility] [address] [facility] Work Phone: Glucose [Mass/Vol] 109 mg/dL 74-106 [facility] Work Phone: Comment on above: Fasting Glucose resu lt from 100 to 125 mg/dL suggests IMPAIRED HOMEOSTASIS per A.D.A. criteria. Neutrophils (Bld) [#/Vol] 4.1 10*3/uL 2.0-7.7 [facility] Work Phone: Potassium [Moles/Vol] 4.6 mmol/L 3.5-5.1 [facility] Work Phone: Sodium [Moles/Vol] 139 mmol/L 136-145 [place] [facility] Work Phone: WBC (Bld) [#/Vol] 4.7 10*3/uL 4.4-[facility] Work Phone: Bilirubin Test strip Ql (U)o n 08-01-2021 Bilirubin Ql (U) Negative Negative [facility] Work Phone: Blood band neutrophil count as percentage of total leukocyteson 08-01-2021 Band form neutrophils/100 WBC (Bld) 6 % 0-5 [facility] Work Phone: Blood eosinophils/100 leukoc yteson 08-01-2021 Eosinophils/100 WBC (Bld) 3 % 0-5 [facility] Work Phone: Blood erythrocytes count (nu mber/volume)on 08-01-2021 RBC (Bld) [#/Vol] 4.15 10*6/uL 4.2-5.4 [facility] Work Phone: Blood hemoglobin measurement (mass/volume)on 08-01-2021 Hemoglobin (Bld) [Mass/Vol] 12.2 g/dL 12.0-15.0 [facility] Work Phone: [phone] Blood lymphocytes/100 leukoc yteson 08-01-2021 Lymphocytes/100 WBC (Bld) 5 % 19-41 [facility] Work Phone: Blood metamyelocytes/100 pao kocyteson 08-01-2021 Metamyelocytes/100 WBC (Bld) 3 % 0-1 [facility] Work Phone: Blood monocytes/100 leukocyt eson 08-01-2021 Monocytes/100 WBC (Bld) 1 % 0-10 [facility] Work Phone: Blood platelet adequacy dete ction by light microscopyon 08-01-2021 Platelets LM Ql (Bld) [facility]QUATE [facility]DEQ [facility] Work [facility]: Blood platelet mean volumeon 08-01-2021 Platelet mean volume (Bld) [Entitic vol] 9.5 fL 6.2-12.0 [facility] Work Phone: Blood segmented neutrophils/ 100 leukocyteson 08-01-2021 Segmented neutrophils/100 WBC (Bld) 82 % 47-70 [facility] Work Phone: Culture, urineon 08-01-2021 Bacteria identified Cx Nom (U) Presumptive E. coli [facility] Work Phone: Determination of erythrocyte mean corpuscular volume (MCV)on 08-01-2021 MCV (RBC) [Entitic vol] 90.1 fL 81-99 [facility] Work Phone: Hematocrit Auto (Bld) [Volum e fraction]on 08-01-2021 Hematocrit (Bld) [Volume fraction] 37.4 % 37-47 [facility] Work Phone: Ketones Test strip Ql (U)on 08-01-2021 Ketones Ql (U) Negative Negative [facility] Work Phone: Laboratory - Chemistry and C hemistry - challengeon 08-01-2021 CO2 [Moles/Vol] 26.0 mmol/L 21.0-32.0 [facility] Work Phone: Urea nitrogen/Creatinine [Mass ratio] 15.7 mg/mg 10-20 [facility] Work Phone: Laboratory - Hematology and Cell countson 08-01-2021 Erythrocyte distribution width (RBC) [Entitic vol] 41.7 fL 35.1-43.9 [facility] Work Phone: Erythrocyte distribution width (RBC) [Ratio] 12.7 % 11.6-14.6 [facility] Work Phone: MCH (RBC) [Entitic mass] 29.4 pg 27.0-32.0 [facility] Work Phone: MCHC Auto (RBC) [Mass/Vol]on 08-01-2021 MCHC (RBC) [Mass/Vol] 32.6 g/dL 32-36 [facility] Work Phone: Mucus LM Ql (Urine sed)on Mucus Ql (Urine sed) 0 SEEN /hpf [facility] Work Phone: Nitrite Test strip Ql (U)on 08-01-2021 Nitrite Ql (U) Negative Negative [facility] Work Phone: No Panel Informationon 08-01 Estimated Creatinine Clearance Calc 36.40 ml/min [facility] Work Phone: Estimated GFR (MDRD) Amer 59 mL/min >60 [facility] Work Phone: Comment on above: GFR Calc Estimated GFR (MDRD) Non-Af Amer 49 mL/min >60 [facility] Work Phone: Comment on above: Non- GFR Calc Platelets bldon 08-01-2021 Platelets (Bld) [#/Vol] 326 10*3/uL 150-450 [facility] Work Phone: Protein Test strip Ql (U)on 08-01-2021 Protein Ql (U) Negative Negative [facility] Work Phone: RBC morphologyon 08-01-2021 RBC morphology finding Nom (Bld) NORM C+C NORMAL NORM C&C [facility] Work Phone: Review by pathologiston 07-08 Pathologist review Inder (Unsp spec) [Interp] Reviewed [facility] Work Phone: Comment on above: Previous reported re sult: Therese castrejon Edited by: RGOOD on 08/04/21:1020 AMENDED REPORT 08/04/21 1020 PATH REV previously reported as: Therese castrejon Serum or plasma calcium osei urement (mass/volume)on 08-01-2021 Calcium [Mass/Vol] 10.5 mg/dL 8.5-10.1 [facility] Work Phone: Serum or plasma creatinine m easurement (mass/volume)on 08-01-2021 Creatinine [Mass/Vol] 1.21 mg/dL 0.55-1.02 [facility] Work Phone: Comment on above: The validity of the calculated GFR & GFRAA in patients over 70 years has not been determined. Clinical correlation is essential. Serum or plasma urea nitroge n measurement (mass/volume)on 08-01-2021 Urea nitrogen [Mass/Vol] 19 mg/dL 7-18 [facility] Work Phone: Squamous epithelial cells de tection in urine sediment by light microscopyon 08-01-2021 Epithelial cells.squamous LM Ql (Urine sed) 0-5 SEEN /hpf [facility] Work Phone: Thin prep Papanicolaou smear with manual screeningon 08-01-2021 Thin prep Papanicolaou smear with manual screening 3 5-15 [facility] Work Phone: Total cell counton 2 Cells counted Molgen (Bld/Tiss) [#] 100 MANUAL DIFF [facility] Work Phone: Urine blood detectionon 07-08 RBC Ql (U) 10 /ul Negative [facility] Work Phone: RBC Ql (U) 0 SEEN /hpf [facility] Work Phone: Urine clarityon 08-01-2021 Clarity (U) Clear Clear [facility] Work Phone: Urine color determinationon 08-01-2021 Color (U) Yellow Yellow [facility] Work Phone: Urine glucose detectionon Glucose Ql (U) Normal mg/dl Normal [facility] Work Phone: Urine leukocyte esterase det ection by dipstickon 08-01-2021 Leukocyte esterase Test strip Ql (U) 100 /ul Negative [facility] Work Phone: Urine pHon 08-01-2021 pH (U) 5.0 [pH] [facility] Work Phone: Urine sediment bacteria coun t by microscopy (number/high power field)on 08-01-2021 Bacteria LM.HPF (Urine sed) [#/Area] RARE /hpf None Seen [facility] Work Phone: Urine specific gravity measu rementon 08-01-2021 Specific gravity (U) [Rel density] 1.010 [facility] Work Phone: Urobilinogen Auto test strip Ql (U)on 08-01-2021 Urobilinogen Ql (U) Normal mg/dl Normal [facility] Work Phone: Basophil percentageon 2021 Basophil percentage 2.0 mg/dL 2.5-4.9 [facility] Work Phone: Bilirubin [Mass/Vol] 0.30 mg/dL 0.20-1.00 [facility] Work Phone: Comment on above: For patients on eltr ombopag therapy, use of Dimension Simon TBIL is not recommended. Chloride [Moles/Vol] 111 mmol/L 98-107 [facility] Work Phone: Glucose [Mass/Vol] 105 mg/dL 74-106 [facility] Work Phone: Comment on above: Fasting Glucose resu lt from 100 to 125 mg/dL suggests IMPAIRED HOMEOSTASIS per A.D.A. criteria. Potassium [Moles/Vol] 4.3 mmol/L 3.5-5.1 [facility] Work Phone: Sodium [Moles/Vol] 139 mmol/L 136-145 [facility] Work Phone: WBC (Bld) [#/Vol] 3.8 10*3/uL 4.4-11.0 [facility] Work Phone: Blood erythrocytes count (nu mber/volume)on 07-27-2021 RBC (Bld) [#/Vol] 4.18 10*6/uL 4.2-5.4 [facility] Work Phone: Blood hemoglobin measurement (mass/volume)on 07-27-2021 Hemoglobin (Bld) [Mass/Vol] 12.2 g/dL 12.0-15.0 [facility] Work Phone: Blood platelet mean volumeon 07-27-2021 Platelet mean volume (Bld) [Entitic vol] 10.1 fL 6.2-12.0 [facility] Work Phone: Determination of erythrocyte mean corpuscular volume (MCV)on 07-27-2021 MCV (RBC) [Entitic vol] 91.9 fL 81-99 [facility] Work Phone: Hematocrit Auto (Bld) [Volum e fraction]on 07-27-2021 Hematocrit (Bld) [Volume fraction] 38.4 % 37-47 [facility] Work Phone: Laboratory - Chemistry and C hemistry - challengeon 07-27-2021 ALP [Catalytic activity/Vol] 137 U/L 45-117 [facility] Work Phone: ALT [Catalytic activity/Vol] 21 U/L 13-56 [facility] Work Phone: CO2 [Moles/Vol] 22.0 mmol/L 21.0-32.0 [facility] Work Phone: Magnesium [Mass/Vol] 2.0 mg/dL 1.6-2.6 [facility] Work Phone: Urea nitrogen/Creatinine [Mass ratio] 17.6 mg/mg 10-20 [facility] Work Phone: Laboratory - Hematology and Cell countson 07-27-2021 Erythrocyte distribution width (RBC) [Entitic vol] 43.6 fL 35.1-43.9 [facility] Work Phone: Erythrocyte distribution width (RBC) [Ratio] 13.0 % 11.6-14.6 [facility] Work Phone: MCH (RBC) [Entitic mass] 29.2 pg 27.0-32.0 [facility] Work Phone: MCHC Auto (RBC) [Mass/Vol]on 07-27-2021 MCHC (RBC) [Mass/Vol] 31.8 g/dL 32-36 [facility] Work Phone: No Panel Informationon 07-27 Cytomegalovirus DNA Qual (PCR) Negative Negative [facility] Work Phone: Comment on above: No Cytomegalovirus D NA Detected.This test was developed and its performance characteristicsdetermined by [facility]. It has not been cleared or approvedby the Food and Drug Administration. The FDA hasdetermined that such clearance or approval is notnecessary. Estimated GFR (MDRD) Amer 60 mL/min >60 [facility] Work Phone: Comment on above: GFR Calc Estimated GFR (MDRD) Non-Af Amer 49 mL/min >60 [facility] Work Phone: Comment on above: Non- GFR Calc Miscellaneous Test See comment [facility] Work Phone: Comment on above: TEST RESULT LIMITSBK V Quant PCR Negative IU/mL Negative No BK DNA detected. The linear range of the assay is 22-100,000,000 IU/mL TESTING PERFORMED AT [facility]. ORIGINAL REPORT ON FILE IN LAB CONTAINS ADDITIONAL TEST SITE INFORMATION. Parathyroid Hormone (Intact) 153.2 pg/mL 18.4-80.1 [facility] Work Phone: Tacrolimus (Prograf) Level 8.9 ng/mL [facility] Work Phone: Comment on above: Trough (immediately following transplant) 15.0 Trough (steady state, 2 weeks or more after transplant): 3.0 - 8.0 Performed by LC-MS/MS technology.Performed at: [address] [id number] Director: Amaury Dubois MD, Phone: [phone] Platelets bldon 07-27-2021 Platelets (Bld) [#/Vol] 395 10*3/uL 150-450 [facility] Work Phone: Serum or plasma albumin osei urement (mass/volume)on 07-27-2021 Albumin [Mass/Vol] 3.7 g/dL 3.2-5.0 [facility] Work Phone: Serum or plasma calcium osei urement (mass/volume)on 07-27-2021 Calcium [Mass/Vol] 10.7 mg/dL 8.5-10.1 [facility] Work Phone: Serum or plasma creatinine m easurement (mass/volume)on 07-27-2021 Creatinine [Mass/Vol] 1.19 mg/dL 0.55-1.02 [facility] Work Phone: Comment on above: The validity of the calculated GFR & GFRAA in patients over 70 years has not been determined. Clinical correlation is essential. Serum or plasma urea nitroge n measurement (mass/volume)on 07-27-2021 Urea nitrogen [Mass/Vol] 21 mg/dL 7-18 [facility] Work Phone: Serum or plasma uric acid me asurement (mass/volume)on 07-27-2021 Urate [Mass/Vol] 4.2 mg/dL 2.6-6.0 [facility] Work Phone: Comment on above: The drugs N-Acetylcy steine and Metamizole may falsely depress this assay. Thin prep Papanicolaou smear with manual screeningon 07-27-2021 Thin prep Papanicolaou smear with manual screening 12 U/L 15-37 [facility] Work Phone: Thin prep Papanicolaou smear with manual screening 6 5-15 [facility] Work Phone: Urine creatinine measurement (mass/volume)on 07-27-2021 Creatinine (U) [Mass/Vol] 128.00 mg/dL NO RANGE EST. [facility] Work Phone: Urine protein measurement (m ass/volume)on 07-27-2021 Protein (U) [Mass/Vol] 13.7 mg/dL 0.0-11.8 [facility] Work Phone: Urine protein/creatinine mas s ratioon 07-27-2021 Protein/Creatinine (U) [Mass ratio] 107 mg/g CRE 0-200 [facility] Work Phone: Basophil percentageon 2021 Basophil percentage 2.5 mg/dL 2.5-4.9 [facility] Work Phone: Bilirubin [Mass/Vol] 0.50 mg/dL 0.20-1.00 [facility] Work Phone: Comment on above: For patients on eltr ombopag therapy, use of Dimension Simon TBIL is not recommended. Chloride [Moles/Vol] 112 mmol/L 98-107 [facility] Work Phone: Glucose [Mass/Vol] 107 mg/dL 74-106 [facility] Work Phone: Comment on above: Fasting Glucose resu lt from 100 to 125 mg/dL suggests IMPAIRED HOMEOSTASIS per A.D.A. criteria. Potassium [Moles/Vol] 4.3 mmol/L 3.5-5.1 [facility] Work Phone: Sodium [Moles/Vol] 142 mmol/L 136-145 [facility] Work Phone: WBC (Bld) [#/Vol] 4.7 10*3/uL 4.4-11.0 [facility] Work Phone: Blood erythrocytes count (nu mber/volume)on 06-29-2021 RBC (Bld) [#/Vol] 4.16 10*6/uL 4.2-5.4 [facility] Work Phone: Blood hemoglobin measurement (mass/volume)on 06-29-2021 Hemoglobin (Bld) [Mass/Vol] 11.8 g/dL 12.0-15.0 [facility] Work Phone: Blood platelet mean volumeon 06-29-2021 Platelet mean volume (Bld) [Entitic vol] 10.1 fL 6.2-12.0 [facility] Work Phone: Determination of erythrocyte mean corpuscular volume (MCV)on 06-29-2021 MCV (RBC) [Entitic vol] 92.3 fL 81-99 [facility] Work Phone: Hematocrit Auto (Bld) [Volum e fraction]on 06-29-2021 Hematocrit (Bld) [Volume fraction] 38.4 % 37-47 [facility] Work Phone: Laboratory - Chemistry and C hemistry - challengeon 06-29-2021 ALP [Catalytic activity/Vol] 148 U/L 45-117 [facility] Work Phone: ALT [Catalytic activity/Vol] 21 U/L 13-56 [facility] Work Phone: CO2 [Moles/Vol] 24.0 mmol/L 21.0-32.0 [facility] Work Phone: Magnesium [Mass/Vol] 2.0 mg/dL 1.6-2.6 [facility] Work Phone: Urea nitrogen/Creatinine [Mass ratio] 16.7 mg/mg 10-20 [facility] Work Phone: Laboratory - Hematology and Cell countson 06-29-2021 Erythrocyte distribution width (RBC) [Entitic vol] 44.5 fL 35.1-43.9 [facility] Work Phone: Erythrocyte distribution width (RBC) [Ratio] 13.2 % 11.6-14.6 [facility] Work Phone: MCH (RBC) [Entitic mass] 28.4 pg 27.0-32.0 [facility] Work Phone: MCHC Auto (RBC) [Mass/Vol]on 06-29-2021 MCHC (RBC) [Mass/Vol] 30.7 g/dL 32-36 [facility] Work Phone: No Panel Informationon 06-29 Cytomegalovirus DNA Qual (PCR) Negative Negative [facility] Work Phone: Comment on above: No Cytomegalovirus D NA Detected.This test was developed and its performance characteristicsdetermined by [facility]. It has not been cleared or approvedby the Food and Drug Administration. The FDA hasdetermined that such clearance or approval is notnecessary. Estimated GFR (MDRD) Amer 63 mL/min >60 [facility] Work Phone: Comment on above: GFR Calc Estimated GFR (MDRD) Non-Af Amer 52 mL/min >60 [facility] Work Phone: Comment on above: Non- GFR Calc Miscellaneous Test See comment [facility] Work Phone: Comment on above: TEST RESULT LIMITSBK V Quant PCRBKV DNA, Quant PCR, Plasma Negative IU/mL Negative No BK DNA detected.The linear range of the assay is 22 - 100,000,000 IU/mL. TESTING PERFORMED AT [facility]. ORIGINAL REPORT ON FILE IN LAB CONTAINS ADDITIONAL TEST SITE INFORMATION. Parathyroid Hormone (Intact) 279.7 pg/mL 18.4-80.1 [facility] Work Phone: Tacrolimus (Prograf) Level 6.5 ng/mL [facility] Work Phone: Comment on above: Trough (immediately following transplant) 15.0 Trough (steady state, 2 weeks or more after transplant): 3.0 - 8.0 Performed by LC-MS/MS technology.Performed at: [address] [id number] Director: Amaury Dubois MD, Phone: [phone] Platelets mckenziedon 06-29-2021 Platelets (Bld) [#/Vol] 372 10*3/uL 150-450 [facility] Work Phone: Serum or plasma albumin osei urement (mass/volume)on 06-29-2021 Albumin [Mass/Vol] 3.7 g/dL 3.2-5.0 [facility] Work Phone: Serum or plasma calcium osei urement (mass/volume)on 06-29-2021 Calcium [Mass/Vol] 11.1 mg/dL 8.5-10.1 [facility] Work Phone: Serum or plasma creatinine m easurement (mass/volume)on 06-29-2021 Creatinine [Mass/Vol] 1.14 mg/dL 0.55-1.02 [facility] Work Phone: Comment on above: The validity of the calculated GFR & GFRAA in patients over 70 years has not been determined. Clinical correlation is essential. Serum or plasma urea nitroge n measurement (mass/volume)on 06-29-2021 Urea nitrogen [Mass/Vol] 19 mg/dL 7-18 [facility] Work Phone: Serum or plasma uric acid me asurement (mass/volume)on 06-29-2021 Urate [Mass/Vol] 4.2 mg/dL 2.6-6.0 [facility] Work Phone: Comment on above: The drugs N-Acetylcy steine and Metamizole may falsely depress this assay. Thin prep Papanicolaou smear with manual screeningon 06-29-2021 Thin prep Papanicolaou smear with manual screening 13 U/L 15-37 [facility] Work Phone: Thin prep Papanicolaou smear with manual screening 6 5-15 [facility] Work Phone: Urine creatinine measurement (mass/volume)on 06-29-2021 Creatinine (U) [Mass/Vol] 107.00 mg/dL NO RANGE EST. [facility] Work Phone: Urine protein measurement (m ass/volume)on 06-29-2021 Protein (U) [Mass/Vol] 13.8 mg/dL 0.0-11.8 [facility] Work Phone: Urine protein/creatinine mas s ratioon 06-29-2021 Protein/Creatinine (U) [Mass ratio] 129 mg/g CRE 0-200 [facility] Work Phone: Laboratory - Microbiology an d Antimicrobial susceptibilityon 06-11-2021 SARS-CoV-2 (COVID-19) RNA NORA+probe Ql (Unsp spec) Not detected Not Detect [facility] Work Phone: Comment on above: Normal Reference Ran ge: Not DetectedMethod:(RT-PCR) real-time reverse transcriptase PCRLuminex Beisen Instrument*The Food and Drug Administration (FDA) has issued an Emergency Use Authorization (EAU) for the Beisen SARS-CoV-2 Assay for the rapid detection of [...] ALLOCROSSMATCH, FLOWon 09-10 ALLOCROSSMATCH, FLOW COMMENT Normal [facility] Comment on above: Result Comment: SEE SEPARATE REPORT. Performed By: #### F KRISHNA #### [facility] [address] [place] [address] ALLOXM-FOR ADDN'L SERUMon ALLOXM-FOR ADDN'L SERUM COMMENT Normal [facility] Comment on above: Result Comment: SEE SEPARATE REPORT. Performed By: #### F LALP #### [facility] [address] [place] [address] VAS LAB Venous Duplex Ultra sound DVTon 06-13-2020 [facility] Venous [place] [address] [phone], Vascular Lab Report Upper Venous Duplex Ultrasound Patient Name: CATE FOX [place] Physician: [id number] Rishi Victoria MD Study Date: 06/13/2020 Referring Physician: [id number] AIDAN Foreman MD MRN/PID: [id number] PCP: Accession/Order#: [id number] CC Report to: Date of : 1960 Technologist: Sharee Merino RVT Gender: F Technologist 2: Admission Status: Outpatient Location Performed: [facility] Diagnosis/ICD: M79.89-Left arm swelling Procedure/CPT: 34201 Peripheral venous duplex scan for DVT Limited-[id number] Pertinent History: Lt arm swelling. CONCLUSIONS: Right [...] Spontaneous/Phasic Brachial Yes None Basilic Yes None [id number] Rishi Victoria MD Final Normal [facility] Otheron 04-25-2020 HLA-A+B+C (class I) Ab (S) SEE COMMENT [facility] Work Phone: Comment on above: HLA-CLASS I SP ANTIB YOSELIN IDENTIFICATION, HIGH DEFINITION SEE SEPARATE REPORT. HLA-DP+DQ+DR (class II) Ab (S) SEE COMMENT [facility] Work Phone: Comment on above: HLA-CLASS II SP ANTI BODY IDENTIFICATION, HIGH DEFINITION SEE SEPARATE REPORT. CT COMPARISON IMPORTon 04-22 This order has been auto-finalized and does not contain a result. [facility] Chart Updateon 01-25-2020 Chart Update Diagnoses/Problems Complication of arteriovenous dialysis fistula (996.73) (T82.9XXA) End stage renal disease (585.6) (N18.6) Added by Problem List Migration; 2013-01-29; Moved to Suppressed May 04 2013 9:14PM Chart Update 59 yo LHD F ESRD on HD at home /// for 3.5 h daily, supported by[employer] Operator = Nicole Epperson DO ([facility] [address], [place] [address]; , FAX [phone]). On PD from 2159-9355, terminated due to peritonitis. Previous R forearm and arm AVG (Sha), immediate failure. 04/21/2016: L brachiobasilc AVF (Ahsan) 08/04/2016: Transposition AVF (Ahsan) 09/27/2016: Authorized for use, cannulated 2-3 times, then infiltration. Rest x 2 weeks, then infiltration again. 12/24/2016: UPHOLSTERY COVERS INSPECTOR juxta-anastomotic stricture (Ahsan) 04/06/2018: ANGIO- UPHOLSTERY COVERS INSPECTOR L radial and HAMIDA artery stenosis for mild steal symptoms (Ahsan). Full relief. AVF thrombosed in September 2019 and could not be salvaged. Currently dialyzing via L IJ tunneled catheter. 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 Had been on warfarin previously, however switched to Eliquis by Transplant ([facility]) due to concerns about inability to [...] not yet been removed. 01/04/2020: Percutaneous thrombectomy, UPHOLSTERY COVERS INSPECTOR long segment axillary vein stenosis (Ahsan). sBP noted 70's-80's, with dBP in the 40's. Midodrine was increased by Nephrology to 10 mg daily. 01/22/2020: Percutaneous thrombectomy, UPHOLSTERY COVERS INSPECTOR/stenting of long segment axillary vein occlusion (Ahsan). Pt called saying RN's still could not [...] afterwards. 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 Signatures Electronically signed by : Aidan Foreman MD; Jan 25 2020 12:49PM EST (Author) Normal [facility] Dialysis Access [place] 01-25-2020 [facility]ASC LAB Dialysis Access Evaluation [place] [address] and Vascular Lab Report Dialysis Access Evaluation Patient Name: CATE FOX [place] Physician: [id number] Foreman MD Study Date: 01/25/2020 Referring Physician: [id number] Foreman MD MRN/PID: [id number] PCP: Accession/Order#: [id number] CC Report to: Date of : 1960 Technologist: Elham Nguyen RVT Gender: F Technologist 2: Admission Status: Outpatient Location Performed: [facility] Diagnosis/ICD: T82.898A-Other specified complication of vascular prosthetic devices, implants and grafts, initial encounter; N18.6-End stage renal disease (ESRD) Procedure/CPT: 69840 Duplex Hemodialysis Access-[id number] Patient History Status post left brachioaxillary AVG thrombectomy/stenting of venous outflow (01/22/2020). CRITICAL RESULT Critical Result: Occluded left brachioaxillary AVG. Notification called to Dr. Aidan Foreman on 01/25/2020 at 11:54:28 AM by [...] Anast 72 cm/s Volume Flow 88.00 ml/min [id number] Foreman MD Final Normal [facility] History and Physical - Surgi javier Update [...] Certification StatementObservation patient/other outpatient visits Electronic Signatures: Aidan Foreman) (Signed 22-Jan-2020 07:14) Authored: History & Physical Reviewed, Airway/Sedation, Consent, Signatures/Attestation/Certi fication Last Updated: 22-Jan-2020 07:14 by Aidan Foreman) [facility] Homegoing Instructionson Homegoing Instructions Additional Instructions: Appointments: Service/Clinician NameDr Please call Dr. Foreman with any questions or concerns or to schedule a follow up appointment . Belongings Returned: Valuables/Medications/Belong ings Returnedyes Electronic Signatures: Tara Castle (KIARA) (Signed 22-Jan-2020 12:32) Authored: Additional Instructions Last Updated: 22-Jan-2020 12:32 by Tara Castle (KIARA) [facility] Operative Reports - [place] on 01-22-2020 Operative Reports - [facility] [address] [place] [address] Patient Name: KAREN. Kyle FOX : 1960 Date of Service: 01/22/2020 Patient Location: [facility] [id number] Patient Type: O Surgeon: Aidan Foreman MD Report Type: Operative Reports PREOPERATIVE DIAGNOSIS: Thrombosed arteriovenous graft. POSTOPERATIVE DIAGNOSIS: Thrombosed arteriovenous graft. PROCEDURES PERFORMED: 1. Percutaneous left brachioaxillary AV graft thrombectomy. 2. Balloon angioplasty and stenting of recurrent obliteration of left axillary venous outflow. SURGEON: Aidan Foreman MD. ANESTHESIA: Local with sedation x [...] The micropuncture sheath was upsized to a 6-Macedonian angiographic sheath. Angled Glidewire and Berenstein catheter [...] and up the brachial axillary artery. A 6-Macedonian angiographic sheath was placed. A 5-Macedonian Charlotte [id number]-bkd-[id number] embolectomy catheter was used to retrieve the [...] catheter tips in the superior vena cava. Aidan Foreman MD EST TT: 01/23/2020 03:33 AM EST DICTATION NUMBER: [id number] [facility] JOB NUMBER: [id number] CC: Carson Russell MD, NICOLE ZHOU Electronic Signatures: Mayra Elizondo (UNIT SECT) (On behalf of Aidan Foreman) on 23-Jan-2020 14:03) Aidan Foreman) (Signed on 24-Jan-2020 07:55) Authored Unsigned, Draft (SYS GENERATED) (Entered on 23-Jan-2020 03:33) Entered Last Updated: 24-Jan-2020 07:55 by Aidan Foreman) [facility] Patient Profile - Preop v2on 01-22-2020 Patient Profile - Preop v2 Profile: Initial Info: How to be AddressedKaren(1) Spoken Language PreferredEnglish (1) Are you currently using the Personal Electronic Health Record or Wo[facility]ayes (1) Stated Reason for AdmissionDe clot graft in left arm Primary Contact Name and NumberHusband in waiting room Patient Belongingsremains with patient Medications Brought to Hospitalno General Health: Weight in kg66 kilogram(s) Weight in ggf795.5 pound(s) Weight Methodactual (measured) Scale Typestanding Height [...] Management Strategiesperitoneal dialysis Peritoneal Dialysis ScheduleSun: Mon: Tue: Tuesday Date of Last Peritoneal [id number] Genitourinary Symptoms/Conditions CommentESRD Hematologic Symptoms/Conditionsanemia Respiratory Symptoms/Conditions CommentPE Barriers to Managing Healthnone Relationship/Environ: Living Arrangementshouse Lives Withspouse Resource/Environmental Concernsnone [facility] Anticipated at Transitionnone Substance: Current or Former Substance Use never: Cigarette/Tobacco(1), e-Cigarette/Vaping(1), Alcohol(1), Street Drugs Risk Screens: COVID-19 Screening Completedno exposure or symptoms Advance Directive/DNRyes Advance Directive typeDurable Power of Geophysical Engineer for Healthcare During the past month, have [...] Learning Preferenceswritten material Cultural Considerationsnone Developmental Considerationsnone Anglican Considerationsnone Other learner availableyes... Learnerspouse Factors Influencing Readiness to LearnNone Factors that Impact Ability to Learnnone Devices/Methods Used to Communicatenone Learning Preferenceswritten material Cultural Considerationsnone Developmental Considerationsnone Anglican Considerationsnone Falls RiskPatient location auto qualifies him/her for HIGH RISK. Are there any cultural, spiritual, druze practices/values/needs that are important for us to [...] Past Surgical History, Active Electronic Signatures: Tara Brown) (Signed 22-Jan-2020 09:09) Authored: Profile, Additional Information Last Updated: 22-Jan-2020 09:09 by Tara Brown (KIARA) References: 1. Data Referenced From Patient Profile - Adult v2 01-Nov-2019 03:09 2. Data Referenced From History and Physical - Surgical Update < 30 days 22-Jan-2020 07:12 Normal [facility] Preop Checkliston 01-22-2020 Preop Checklist Preop Checklist: Preop Checklist: Arrival [id number] Arrival Time08:33 Temperature C37.8 degrees C Temperature F100 degrees F Heart Rate73 beats per minute Respiratory Rate16 breath per minute Blood Pressure Fpbwbmil15 mm/Hg Blood Pressure Infjbmbvc62 mm/Hg ID Band Onyes Allergy Bandyes HCG Urine TestPatient signed waiver SCD's Appliednot applicable Cardiovascular Assessment: Apicalregular Respiratory Assessment: Respirationsregular unlabored Air Exchangeequal Breath Soundsclear Neurological Assessment: Level of Consciousnessalert, oriented Mobilitymoves all extremities Able to Express Selfyes Age Appropriateyes Emotional Statuscalm Preop Education: Pain Scales and Managementyes Language / Communication: Language / CommunicationEnglish Electronic Signatures: Tara Brown) (Signed 22-Jan-2020 09:17) Authored: Preop Checklist Last Updated: 22-Jan-2020 09:17 by Tara Brown (RN) Normal [facility] History and Physical - Surge ry > 30 dayson 01-04-2020 History and Physical - Surgery > 30 days History of Present Illness: /Lactating: Are You no Are You Currently Breastfeedingno History Present Illness: Reason for surgery: Malfunctioning AVG HPI: 58 yo LHD F ESRD on HD at home, /// for 3.5 h daily, supported by [facility] [employer] Operator = Nicole Epperson DO ([facility] [address], [place] [address]; , FAX [phone]). On PD from 4180-3821, terminated due to peritonitis. Previous R forearm and arm AVG, immediate failure. 04/21/2016: L brachiobasilc AVF (Ahsan) 08/04/2016: Transposition AVF (Ahsan) 09/27/2016: Authorized for use, cannulated 2-3 times, then infiltration. Rest x 2 weeks, then infiltration again. 12/24/2016: AV fistulogram, UPHOLSTERY COVERS INSPECTOR juxta-anastomotic stricture (Ahsan) 04/06/2018: ANGIO- UPHOLSTERY COVERS INSPECTOR L radial and HAMIDA artery stenosis for [...] arterial line at time of bilateral nephrectomy 2015. Extensive post op RUE DVT. PMH: ESRD [...] Certification StatementObservation patient/other outpatient visits Electronic Signatures: Aidan Foreman) (Signed 04-Jan-2020 07:22) Authored: History of Present Illness, Allergies, Home Medication Review, Impression/Procedure, Review of Systems, Physical Exam, Consent, Signatures/Attestation/Certi fication Last Updated: 04-Jan-2020 07:22 by Aidan Foreman) Normal [facility] Operative Reports - [place] on 01-04-2020 Operative Reports - [facility] [address] [place] [address] Patient Name: KAREN. Kyle FOX : 1960 Date of Service: 01/04/2020 Patient Location: [facility] A[facility]0 [id number] Patient Type: O Surgeon: Aidan Foreman MD Report Type: Operative Reports PREOPERATIVE DIAGNOSIS: Thrombosed arteriovenous graft. POSTOPERATIVE DIAGNOSIS: Thrombosed arteriovenous graft. PROCEDURES PERFORMED: 1. Percutaneous thrombectomy of left brachioaxillary AV graft. 2. Balloon angioplasty of venous anastomotic stricture. SURGEON: Aidan Foreman MD. ANESTHESIA: Local with sedation x [...] The micropuncture catheter was upsized to a 6-Macedonian angiographic sheath. The patient was given 6000 [...] The micropuncture sheath was upsized to a 6-Macedonian angiographic sheath. A 5-Macedonian Charlotte cyii-yaf-icdf embolectomy catheter was used to retrieve the [...] both during dialysis and during intradialytic times. Aidan Foreman MD EST TT: 01/05/2020 02:10 AM EST DICTATION NUMBER: [id number] [facility] JOB NUMBER: [id number] CC: ROHIT EPPERSON Electronic Signatures: Mayra Elizondo (UNIT SECT) (On behalf of Aidan Foreman) on 07-Jan-2020 11:16) Aidan Foreman) (Signed on 14-Jan-2020 16:49) Authored Unsigned, Draft (SYS GENERATED) (Entered on 05-Jan-2020 02:10) Entered Last Updated: 14-Jan-2020 16:49 by Aidan Foreman) [facility] Established Visit (Nephrolog y)on 01-02-2020 Established Visit (Nephrology) Chief Complaint Verbal consent was requested and obtained from CATE FOX on this date, 01/02/2020 02:30 PM , for a telehealth visit. Annual follow up while on kidney transplant candidate list. History of Present Illness Pre-Transplant Evaluation and Listing Review Visit Details: Review of kidney transplant listing status . Referring Provider: Dr. Krzysztof Wu (tel: [phone]; ). Ethnicity: White: Not Specified/Unknown. Primary Cause [...] Active Problems Complication of arteriovenous dialysis fistula (996.73) (T82.9XXA) End stage renal disease (585.6) (N18.6) Added by Problem List Migration; 2013-01-29; Moved to [facility] May 04 2013 9:14PM ESRD on hemodialysis [...] 1 TABLET Take 1 tablet 3x/week; Therapy: 17Jul2015 to (Evaluate:14Aug2015) Recorded Dispense: 28 Days ; #: Sufficient Tablet; Refill: 0; SHARYN = N; Record; Last Updated By: Lizbeth Murphy; 05/17/2016 3:52:18 PM Calcitriol 0.5 MCG Oral Capsule; Therapy: (Recorded:71Oph5146) to Recorded Dispense: 0 Days ; #: [...] 1 TABLET BY MOUTH TWICE DAILY; Therapy: (Recorded:27Sep2019) to Recorded Dispense: 30 Days ; #:1 X 60 Tablet Bottle; Refill: 0; SHARYN = N; Record; Last Updated By: Alyce Pugh; 09/27/2019 12:37:35 PM Midodrine HCl - 10 MG Oral Tablet; Take as directed; Therapy: (Recorded:27Sep2019) to Recorded Dispense: 0 Days [...] TAKE 1 CAPSULE Daily; Therapy: 24Jun2015 to (Evaluate:21Kzy4141) Recorded Dispense: 30 Days ; #:30 Capsule; Refill: 0; SHARYN = N; Record; Last Updated By: Lizbeth Murphy; 09/27/2016 2:58:15 PM Renvela 800 MG Oral Tablet; take 3 with each meal and 1 with snacks; Therapy: (Recorded:27Sep2019) to Recorded Dispense: 0 Days ; #: Sufficient Tablet; Refill: 0; SHARYN = N; Record; Last Updated By: Preeti Pughila; 09/27/2019 11:39:41 AM Physical Exam No physical [...] May 03 2020 10:15PM EST (Author) Normal [facility] SW Assessment Upd ateon 01-02-2020 Transplant [...] Jan 02 2020 5:25PM EST (Author) Normal [facility] Otheron 12-24-2019 COMMENT [facility] Work Phone: Comment on [...] the note. I personally evaluated the patient [id number] Attending Provider Inpatient Certification StatementObservation patient/other outpatient visits Electronic Signatures: Edd Swan (Resident)) (Signed 19-Oct-2019 06:57) Authored: History & Physical Reviewed, Signatures/Attestation/Certi fication Aidan Foreman) (Signed 19-Oct-2019 07:07) Authored: History & Physical Reviewed, Signatures/Attestation/Certi fication Co-Signer: History & Physical Reviewed, Signatures/Attestation/Certi fication Last Updated: 19-Oct-2019 07:07 by Aidan Foreman () References: 1. Data Referenced From Patient Profile - Preop v2 19-Oct-2019 06:38 Normal [facility] Operative Reports - [place] on 10-19-2019 Operative Reports - [facility] [address] [place] [id number] Patient Name: KAREN. Kyle FOX : 1960 Date of Service: 10/19/2019 Patient Location: [facility]0 [id number] Patient Type: O Surgeon: Aidan Foreman MD Report Type: Operative Reports PREOPERATIVE DIAGNOSIS: End-stage renal disease. POSTOPERATIVE DIAGNOSIS: End-stage renal disease. PROCEDURE PERFORMED: Left brachioaxillary arteriovenous graft. SURGEON: Aidan Foreman MD PLASTER MIXER SURGEON: Edd Swan MD ANESTHESIA: General endotracheal. [...] of 4 to 7 mm tapered diameter [place] Propaten PTFE graft was passed through the [...] signals are audible at the left wrist. Aidan Foreman MD EST TT: 10/20/2019 00:08 AM EST DICTATION NUMBER: [id number] [facility] JOB NUMBER: [id number] CC: Krzysztof Bowman MD, Electronic Signatures: Unsigned, Draft (SYS GENERATED) (Entered on 20-Oct-2019 00:08) Entered Aidan Foreman) (Signed on 26-Oct-2019 09:59) Authored Last Updated: 26-Oct-2019 09:59 by Aidan Foreman) [facility] Patient Profile - Preop v2on 10-19-2019 Patient Profile - Preop v2 Profile: Initial Info: How to be AddressedKaren(1) Spoken Language PreferredEnglish (1) Stated Reason for Admissiongraft in my left arm Primary Contact Name and NumberEmery [phone] Patient Belongingsasu Medications Brought to Hospitalno Are you currently using the Personal Electronic Health Record or [facility] Ultrasounds (1) General Health: Blood Avoidance/Restrictionsnone Weight in kg67.2 kilogram(s) Previous Transfusion Reactionno Weight in dmi212.1 pound(s) Weight Methodactual (measured) Scale Typestanding Height [...] Advance Directive/DNRyes Advance Directive typeDurable Power of Geophysical Engineer for Healthcare Durable Power of Geophysical Engineer AvailabilityDPOA not available now Advance Directive Mental [...] Preferencesaudio; verbal instruction Cultural Considerationsnone Developmental Considerationsnone Anglican Considerationsnone Other learner availableno Falls RiskPatient location auto qualifies him/her for HIGH RISK. Are there any cultural, spiritual, druze practices/values/needs that are important for us to [...] Profile - Adult v2 06-Sep-2019 09:48 Normal [facility] Preop Checkliston 10-19-2019 Preop Checklist Preop Checklist: Preop Checklist: Arrival [id number] Arrival Time06:25 Procedure TypeLUE AVG NPO [id number] 18:00 ID Band Onyes Allergy Bandyes Consent [...] 19-Oct-2019 06:48 by Adriano Haines (RN) Normal [facility] BASIC METABOLIC PANELon 05-0 -2019 Anion gap [Moles/Vol] 16 mmol/L Normal 10 - 20 [facility] Comment on above: Performed By: #### B MP ####[facility] [facility], [place] [id number] Calcium [Mass/Vol] 10.1 mg/dL Normal 8.6 - 10.3 [facility] Comment on above: Performed By: #### B MP ####[facility] [facility], [place] [phone] Chloride [Moles/Vol] 98 mmol/L Normal 98 - 107 [facility] Comment on above: Performed By: #### B MP ####[facility] [facility], [place] [phone] Creatinine [Mass/Vol] 9.45 mg/dL High 0.50 - 1.05 [facility] Comment on above: Performed By: #### B MP ####[facility] [facility], [place] [id number] GFR- AM. 5 mL/min/1.73m2 >60 [facility] Comment on above: Result Comment: CALC ULATIONS OF ESTIMATED GFR ARE PERFORMED USING THE MDRD STUDY EQUATION FOR THE IDMS-TRACEABLE CREATININE METHODS. CLIN CHEM 2007;53:766-72 Performed By: #### B MP ####[facility] [facility] [place], [place] [id number] GFR-NON AM. 4 mL/min/1.73m2 >60 [facility] Comment on above: Performed By: #### B MP ####[facility] [facility] [place], [place] [phone] Glucose [Mass/Vol] 96 mg/dL Normal 74 - 99 [facility] Comment on above: Performed By: #### B MP ####[facility] [facility] [place], [place] [phone] HCO3 (Bld) [Moles/Vol] 25 mmol/L Normal 21 - 32 [facility] Comment on above: Performed By: #### B MP ####[facility] [facility] [place], [place] [phone] Potassium [Moles/Vol] 5.7 mmol/L High 3.5 - 5.3 [facility] Comment on above: Performed By: #### B MP ####[facility] [facility] [place], [place] [phone] Sodium [Moles/Vol] 133 mmol/L Low 136 - 145 [facility] Comment on above: Performed By: #### B MP ####[facility] [facility] [place], [place] [phone] Urea nitrogen [Mass/Vol] 45 mg/dL High 6 - 23 [facility] Comment on above: Performed By: #### B MP ####[facility] [facility] [place], [place] [phone] CBCon 10-12-2019 Erythrocyte distribution width (RBC) [Ratio] 15.9 % High 11.5 - 14.5 [facility] Comment on above: Performed By: #### C BC #### [facility] [address] [facility] [place], [place] [phone] Hematocrit (Bld) [Volume fraction] 34.0 % Low 36.0 - 46.0 [facility] Comment on above: Performed By: #### C BC #### [facility] [address] [facility] [place], [place] [phone] Hemoglobin (Bld) [Mass/Vol] 11.0 g/dL Low 12.0 - 16.0 [facility] Comment on above: Performed By: #### C BC #### [facility] [address] [facility] [place], [place] [phone] MCHC (RBC) [Mass/Vol] 32.4 g/dL Normal 32.0 - 36.0 [facility] Comment on above: Performed By: #### C BC #### [facility] [address] [facility] [place] [phone] MCV (RBC) [Entitic vol] 95 fL Normal 80 - 100 [facility] Comment on above: Performed By: #### C BC #### [facility] [address] [facility] [place] [phone] Platelets (Bld) [#/Vol] 359 10*3/uL Normal 150 - 450 [facility] Comment on above: Performed By: #### C BC #### [facility] [address] [facility] [place] [phone] RBC (Bld) [#/Vol] 3.57 x10E12/L Low 4.00 - 5.20 [facility] Comment on above: Performed By: #### C BC #### [facility] [address] [facility] [place], [place] [phone] WBC (Bld) [#/Vol] 11.5 10*3/uL High 4.4 - 11.3 [facility] Comment on above: Performed By: #### C BC #### [facility] [address] [facility] [place] [phone] COAGULATION SCREENon 020 aPTT Coag (Bld) [Time] 32 s Normal 28 - 38 [facility] Comment on above: Result Comment: THE APTT IS NO LONGER USED FOR MONITORING UNFRACTIONATED HEPARIN THERAPY. FOR MONITORING HEPARIN THERAPY, USE THE HEPARIN ASSAY. Performed By: #### C OAGS ####[facility] [facility], [place] [phone] INR Coag (PPP) [Relative time] 1.5 {INR} High 0.9 - 1.1 [facility] Comment on above: Performed By: #### C OAGS ####[facility] [facility], [place] [phone] PT Coag (PPP) [Time] 16.7 s High 9.7 - 12.7 [facility] Comment on above: Performed By: #### C OAGS ####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 Patient was on PD [id number] which was discontinued secondary to infection. She [...] allergies: Gout: Deep vein thrombosis (DVT): Description: RUEduardo 2011 Polycystic kidney disease: Surg History: Surgically [...] Systems, Objective, Assessment and Plan, Signatures/Attestation/Certi fication Aidan Foreman) (Signed 19-Oct-2019 07:06) Authored: Signatures/Attestation/Certi fication Co-Signer: History of Present Illness, Comorbidities, Past Medical/Surgical History, Family History, Social History, Allergies, Medications Prior to Admission, Review of Systems, Objective, Assessment and Plan, Signatures/Attestation/Certi fication Last Updated: 19-Oct-2019 07:06 by Aidan Foreman) [facility] VASC LAB Pre-op Vessel Vein Mappingon 09-27-2019 VAS LAB Pre-op Vessel Vein Mapping [place] [address] and Vascular Lab Report Pre-op Vein Mapping Upper Upper Arterial Duplex Ultrasound Patient Name: CATE Falcon Physician: [id number] Naheed Carr MD Study Date: 09/27/2019 Referring 17155 Aidan Foreman MD Physician: MRN/PID: [id number] PCP: Accession/Order#: [id number] CC Report to: Date of : 1960 Technologist: Maris Russell RVT Gender: F Technologist 2: Admission Status: Outpatient Location Performed: [facility] Diagnosis/ICD: Z01.818-Encounter for other preprocedural examination; N18.6-End stage renal disease (ESRD) Procedure/CPT: 96270 Duplex arterial inflow and venous outflow, preop assessment prior to creating dialysis access, comp bilateral study-45940 Patient History Left brachiobasilic AVF (2016), Right [...] 1.1 mm Radial Diam D 0.9 mm 72843 Naheed Carr MD Final Normal [facility] Otheron 09-07-2019 COMMENT MG-Vascular Surgery-[facility] [...] this test method. Fact sheet for providers: www.fda.gov/media/504248/downloadFact sheet for patients: www.fda.gov/media/653733/downloadThis test has received FDA Emergency Use Authorization (EUA) and has been verified by [facility] ([facility]). This test is only authorized for the duration of time that circumstances exist to justify the authorization of the emergency use of in vitro diagnostic tests for the detection of SARS-CoV-2 virus and/or diagnosis of COVID-19 infection under section 564(b)(1) of the Act, 21 U.S.C. 360bbb-3(b)(1), unless the authorization is terminated or revoked sooner. [facility] is certified under CLIA-88 as qualified to perform high complexity testing. Testing is performed in the [facility] laboratories located at [address] [place], [place] [address].(-)COVID CALLED RB TO [facility], 09/06/2019 16:07 (-)COVID CALLED RB T O [facility], 09/06/2019 16:07 SOURCE: Nasal, Nasop haryngealReference Range: Not Detected Respiratory virus testing is performed routinely by PCR for Influenza A/B and RSV. If Influenza and RSV PCR are negative, testing for parainfluenza 1,2,3 viruses and adenovirus is routinely performed for oncology inpatients and intensive care unit patients at [facility] and is available on request on other patients by calling Laboratory Client Services at [phone]. Not Detected results do not preclude Influenza [...] inpatients and intensive care unit patients at [facility] and is available on request on other patients by calling Laboratory Client Services at [phone] Not Detected results do not preclude Influenza A/B or RSV infections since the adequacy of sample collection or low viral burden may impact the clinical sensitivity of this test method. HIV Antigen/Antibody Screeno n 09-06-2019 HIV Antigen/Antibody Screen NONREACTIVE See Below MG-Vascular Surgery-[facility] Work Phone: Comment on above: SOURCE: Reference Ra nge: NONREACTIVE HIV Ag/Ab screen is performed using the Siemens [employer] HIV Ag/Ab Combo assay which detects the [...] ABO group Nom (Bld) O MG-Va scular Surgery-[facility] Work Phone: aPTT Coag (PPP) [Time] [...] inpatients and intensive care unit patients at [facility] and is available on request on other patients by calling Laboratory Client Services at [phone]. Not Detected results do not preclude Influenza [...] Coag (Bld) [Time] 28.5 s Normal 23.0-32.4 [facility] Comment on above: Result Comment: Unfr [...] laboratory APTT reagent in use throughout the [facility]. Performed By: #### A PTT #### [place] [address] Basic Panelon 08-15-2019 Creatinine [Mass/Vol] 16.30 mg/dL High 0.51-0.95 [facility] Comment on above: Result Comment: Use of this assay is not recommended for patients undergoing treatment with phenindione, due to the potential for falsely depressed results. Performed By: #### P 8 #### [place] [address] Glucose [Mass/Vol] 89 mg/dL Normal 70-99 [facility] Comment on above: Performed By: #### P 8 #### [facility] [address] [place], [place] [address] Anion gap [Moles/Vol] 17 mmol/L High 8-16 [facility] Comment on above: Performed By: #### P 8 #### [facility] [address] [place], [place] [address] CO2 [Moles/Vol] 20 mmol/L Low 21-32 [facility] Comment on above: Performed By: #### P 8 #### [facility] [address] [place], [place] [address] Urea nitrogen [Mass/Vol] 69 mg/dL High 7-18 [facility] Comment on above: Performed By: #### P 8 #### [facility] [address] [place], [place] [address] Calcium [Mass/Vol] 8.5 mg/dL Normal 8.5-10.1 [facility] Comment on above: Performed By: #### P 8 #### [facility] [address] [place], [place] [address] Chloride [Moles/Vol] 106 mmol/L Normal 98-[address] [facility] Comment on above: Performed By: #### P 8 #### [facility] [address] [place], [place] [address] Potassium [Moles/Vol] 6.0 mmol/L High 3.5-5.1 [facility] Comment on above: Performed By: #### P 8 #### [facility] [address] [place], [place] [address] Sodium [Moles/Vol] 137 mmol/L Normal 136-145 [facility] Comment on above: Performed By: #### P 8 #### [facility] [address] [place], [place] [address] CASE MANAGEMon 08-15-2019 CASE MANAGEM HNO ID: [id number] Author: Sammi GeeRn) KIARA Rhodes Service: Care [...] 15, 2019 TIME: 4:18 PM PAGER/CONTACT #: [phone] [facility] CASE MANAGEM HNO ID: [id number] Author: Sammi (Rn) KIARA Rhodes Service: Care Management Author Type: Registered Nurse Type: Care Mgt Progress Note Filed: 08/15/2019 4:08 PM Note Text: CARE MANAGEMENT PROGRESS NOTE SERVICE DATE: 08/15/2019 SERVICE TIME: 3:41 PM LOS: 0 days Met with patient in HD. Agreeable for Eliquis to be filled at [facility] pharmacy to determine copay amount. Dr. Gautam notified to send electronically to [facility] pharmacy. Patient is scheduled to have HD at [facility] for teaching with new TDC. Spoke with KIARA Potts at [facility]. Patient is scheduled 08/16/19 at 645 am. SIGNATURE: Aletha Rhodes RN PATIENT NAME: Cate Fox DATE: August 15, 2019 TIME: 3:41 PM PAGER/CONTACT #: [phone] [facility] CONSULTon 08-15-2019 CONSULT HNO ID: [id number] Author: Junaid Lau Service: Nephrology Author Type: [...] tab(s) (ZYLOPRIM) 100 mg ORAL MO-- Eber Fordey 100 mg at 08/15/19 1155 - docusate sodium 100 mg cap(s) (COLACE) 100 mg ORAL DAILY Eber Fordey 100 mg at 08/15/19 1155 - midodrine 10 mg tab(s) (PROAMATINE) 10 mg ORAL 2 times per day on Tue Eber Fordey 10 mg at 08/15/19 1159 - oxyCODONE IR 5 mg tab(s) (ROXICODONE) 5 mg ORAL q 4 H PRN Eber Cunha 5 mg at 08/15/19 1159 - sevelamer carbonate 2,400 mg tab(s) (RENVELA) 2,400 mg ORAL TID before MEALS Eber Cunha 2,400 mg at 08/15/19 1154 - [...] 4 mg INTRAVENOUS q 6 H PRN Eber Cunha - polyvinyl alcohol-povidone 1.4-0.6 % 1 Drop [...] Cunha - sodium chloride 0.65 % 2 [place] (AYR, OCEAN) 2 [place] EACH NOSTRIL PRN Eber Cunha - saliva [...] spot tomorrow am Called dialysis unit Normal [facility] IR DIALYSIS APHERESIS CATH P LCon 08-15-2019 IR DIALYSIS APHERESIS CATH PLC * * *Final Report* * * DATE OF EXAM: Aug 15 2019 10:08AM [facility] 0821 - IR DIALYSIS APHERESIS CATH PLC / PROCEDURE REASON: ESRD (end stage renal disease) (HCC) * * * * Physician Interpretation * * * * EXAM TITLE: PLACEMENT OF TUNNELED DIALYSIS CATHETER LEFT INTERNAL JUGULAR VEIN USING EXCHANGE TECHNIQUE, TEMPORARY TO TUNNELED. DATE:08/15/2019 CLINICAL INDICATION/HISTORY: Patient has a several year history of end-stage renal failure and dialysis therapy. Recently left upper arm AV access failed and temporary access had been placed while the patient was in [place]. Evidently local dialysis center was unable to [...] of tunneled dialysis catheter using exchange technique Tractor Sweeper Operator: IHSAN Transcribe Date/Time: Aug 15 2019 11:49A Dictated by : EBER CUNHA MD This examination was interpreted and the report reviewed and electronically signed by: EBER CUNHA MD on Aug 15 2019 11:59AM EST Normal [facility] MDRD GFRon 08-15-2019 GFR/1.73 sq M predicted among non-blacks MDRD (S/P/Bld) [Vol rate/Area] 2.28 mL/min/{1.73_m2} Normal >60mL/min/ 1.73m2 [facility] Comment on above: Result Comment: If t he patient is , multiply the result by 1.210. Performed By: #### G FR #### [place] [address] Magnesium Bloodon 08-15-2019 Magnesium [Mass/Vol] 2.5 mg/dL Normal 1.6-2.[address] [facility] Comment on above: Performed By: #### M AG #### [address] [address] NURSING PROGon 08-15-2019 NURSING PROG HNO ID: [id number] Author: Yaa Hernandez (Rn) KIARA Whitaker Service: Dialysis Author Type: Registered Nurse Type: Nursing Progress Note Filed: 08/15/2019 7:14 PM Note Text: HEMODIALYSIS TX COMPLETED KULWANT WELL STABLE FLUID BALANCE -2000 ML OFF SEE FLOW SHEET FOR DETAILS REPORT GIVEN TO CAS CRAIG [facility] PLAN OF CAREon 08-15-2019 PLAN OF CARE HNO ID: [id number] Author: Orlando Britt (Pharmacist) Service: Pharmacy Author [...] understanding of topic Outcomes not met: N/A Orlando Britt Pharmacist Pager: [phone] [facility] PLAN OF CARE O ID: [id number] Author: Orlando Britt (Pharmacist) Service: Pharmacy Author [...] Turpin August 15, 2019 7:29 PM Pager: [phone] Medication List START taking these medications apixaban [...] ? apixaban 5 mg tab(s) [facility] PLAN OF CARE HNO ID: [id number] Author: Kellen Del Castillo (Corn Husker) Service: ? Author Type: ? Type: Plan of Care Filed: 08/15/2019 5:59 PM Note Text: PHARMACY BEDSIDE DELIVERY SERVICE Patient Name: Cate Fox The marked outpatient medications were Filled at: [facility] and delivered to the patient's bedside to Cate's [facility] as she was at dialysis. KIARA Hernandez aware. Medication List START taking these medications apixaban [...] your Primary Care Provider. Kellen Del Castillo (Corn Husker) PAGER: [phone] August 15, 2019 5:58 PM [facility] PLAN OF CARE HNO ID: [id number] Author: Orlando Britt (Pharmacist) Service: Pharmacy Author Type: Pharmacist Type: Plan of Care Filed: 08/15/2019 5:33 PM Note Text: MEDICATION RECONCILIATION Patient Name:.Cate Fox : 1960 Reconciliation: Yes All UPHOLSTERY COVERS INSPECTOR medications addressed by LIP Additional comments: Med Hx completed by Lindsey Khanna CphT Allergies: ALLERGIES Allergen Reactions - Codeine Intolerance Jittery and nauseous - Penicillins Unknown Too young to remember reaction. [facility] Pharmacy: [facility] :[phone] Current UPHOLSTERY COVERS INSPECTOR Medications: Prior to Admission medications as of [...] Pharmacist August 15, 2019 5:25 PM Pager: [phone] [facility] PLAN OF CARE HNO ID: [id number] Author: Liana Gómez ([employer]) Service: ? Author Type: ? Type: Plan of Care Filed: 08/15/2019 5:12 PM Note Text: DIRECTOR SPEECH LANGUAGE BEDSIDE DELIVERY SURVEY 1. Patient to use [facility] Bedside Delivery - YES Insurance Information as follows: 2. Insurance card on file - YES 3. Credit card for payment - N/A Patient has 1 Prescription: Eliquis 5mg Regular co-pay $167.10. Pt has $2,800 deductible to meet. Using free trial card for this month. Total: $0 Ena [phone] ([id number]) or Kellen [phone] ([id number]) Pharmacy Discharge Medication Service: This patient has elected to receive their discharge prescriptions through the [facility] Bedside Prescription Delivery program. The prescriptions are currently being processed. A follow-up note will be entered once the prescriptions have been filled and delivered to the patient. Please contact me with any questions or updates to the patient's discharge medications. Liana Gómez (Corn Husker) DCT Contact Info: [phone] [facility] PROGRESSon 08-15-2019 PROGRESS HNO ID: [id number] Author: Rain Gautam MD Service: Hospital Medicine Author Type: Physician Type: Progress Notes Filed: 08/15/2019 12:12 PM Note Text: DEPARTMENT OF HOSPITAL MEDICINE PROGRESS NOTE SERVICE DATE: 08/15/2019 SERVICE TIME: 8:37 AM Hospital Medicine/Primary Attending: Rain Vazquez MD NIGHT AND WEEKEND COVERAGE: After 7pm please page [phone] CHIEF COMPLAINT: Malfunctioning HD fistula/ HD cath [...] PRN - sodium chloride 0.65 % 2 [place] (AYR, OCEAN) 2 [place] EACH NOSTRIL PRN - saliva substitute combo [...] #ESRD - due to PCKD, HD since 2016 Medication and Non-Pharmacologic VTE Prophylaxis/Anticoagulants Anticoagulant AND Antiplatelet Medications (From admission, onward) Start Dose Route Frequency Ordered Stop 08/14/19 1900 heparin 5,000 Units injection (Medical Risk Categories) 5,000 Units SUBCUTANEOUS EVERY 12 HOURS 08/14/19 1839 -- 08/14/19 1845 vte non-pharmacologic prophylaxis - none indicated (md,oh) 08/14/19 1845 activity - mobilize patient (md,in) Lines, Drains, and Airways Line Peripheral 08/14/19 [...] this note may have been generated using [employer] voice recognition software. Reasonable efforts were made to correct any dictation errors that resulted due to the programming of this software but some may still be present. Normal [facility] PROGRESS HNO ID: [id number] Author: Tamanna Faye Service: Vascular Surgery Author [...] PRN - sodium chloride 0.65 % 2 [place] (AYR, OCEAN) 2 [place] EACH NOSTRIL PRN - saliva substitute combo [...] 15, 2019 TIME: 6:17 AM Pager: Normal [facility] Phosphorus Bloodon 0 Phosphate [Mass/Vol] 7.0 mg/dL High 2.5-4.[address] [facility] Comment on above: Performed By: #### P HOS #### [facility] [address] [place] [id number] Prealbuminon 08-15-2019 Prealbumin [Mass/Vol] 24.0 mg/dL Normal 20.0-40.0 [facility] Comment on above: Performed By: #### P AB #### [facility] [address] [place] [id number] Protimeon 08-15-2019 INR Coag (PPP) [Relative time] 0.97 {INR} Normal 0.90-1.30 [facility] Comment on above: Result Comment: Kelly min K Antagonist (VKA) Therapeutic Range: INR 2 to 3 (Target INR of 2.5) Note: For patients treated with VKA drugs, such as warfarin, the [employer] 2012 Guideline recommends [...] 2.5 to 3.5 target INR of 3). Dorinatt GH, et al. Chest 2012; 141:7S-47S Francia ROMO et al. JAC 2017; 70: 252-289 Performed By: #### P T #### [facility] [address] [place] [address] PT Coag (PPP) [Time] 10.5 s Normal 9.7-13.[address] [facility] Comment on above: Performed By: #### P T #### [facility] [address] [place] [address] US VEIN MAPPING UPPER BILon 08-15-2019 US VEIN MAPPING UPPER KIMBERLEE * * *Final Report* * * DATE OF EXAM: Aug 15 2019 2:31PM [place] 1085 - US VEIN MAPPING UPPER KIMBERLEE [...] Gautam MD on 08/15/2019 at 14:40 hours. Tractor Sweeper Operator: PSCKyle Transcribe Date/Time: Aug 15 2019 2:38P Dictated by : PARVEEN IZQUIERDO MD This examination was interpreted and the report reviewed and electronically signed by: PARVEEN IZQUIERDO MD on Aug 15 2019 2:55PM EST Normal [facility] Basic Panelon 08-14-2019 Creatinine [Mass/Vol] 14.60 mg/dL High 0.51-0.95 [facility] Comment on above: Result Comment: Use of this assay is not recommended for patients undergoing treatment with phenindione, due to the potential for falsely depressed results. Performed By: #### P 8 #### [facility] [address] [place], [place] [address] Anion gap [Moles/Vol] 13 mmol/L Normal 8-16 [facility] Comment on above: Performed By: #### P 8 #### [facility] [address] [place], [place] [address] CO2 [Moles/Vol] 25 mmol/L Normal 21-32 [facility] Comment on above: Performed By: #### P 8 #### [facility] [address] [place], [place] [address] Glucose [Mass/Vol] 92 mg/dL Normal 70-99 [facility] Comment on above: Performed By: #### P 8 #### [facility] [address] [place], [place] [address] Urea nitrogen [Mass/Vol] 63 mg/dL High 7-18 [facility] Comment on above: Performed By: #### P 8 #### [facility] [address] [place], [place] [address] Calcium [Mass/Vol] 8.9 mg/dL Normal 8.5-10.1 [facility] Comment on above: Performed By: #### P 8 #### [facility] [address] [place], [place] [address] Chloride [Moles/Vol] 105 mmol/L Normal 98-[address] [facility] Comment on above: Performed By: #### P 8 #### [facility] [address] [place], [place] [address] Potassium [Moles/Vol] 5.4 mmol/L High 3.5-5.1 [facility] Comment on above: Performed By: #### P 8 #### [facility] [address] [place], [place] [address] Sodium [Moles/Vol] 138 mmol/L Normal 136-145 [facility] Comment on above: Performed By: #### P 8 #### [facility] [address] [place], [place] [address] CASE MGT INIT ASSESon 2019 CASE MGT INIT ASSES HNO ID: [id number] Author: Kaden Ray (Sw) Service: Care Management Author Type: Airfield Operations Specialist Type: Care Mgt Initial Assessment Filed: 08/14/2019 [...] Current Advance Directive: Health Care Power of Geophysical Engineer;Living Will In Chart: No Dolly Driver Attempted to Assist with AD Completion: Yes [...] Information Primary Emergency Contact: EMERY FOX Address: [address] [place] [address] Mobile Relation: Spouse Supportive Patient Contact:: Yes [...] Completely I feel financially burdened by my aym-sz-newsso expenses for my prescription medication:: 0 - Disagree Completely Risk Score: 0 Patient is categorized as: Low risk < 2 Are you interested in bedside delivery of your medications? No Is Patient Psychosocially Complex?: No ASSESSMENT AND PLAN: Medical Needs: Medical Needs: Two or more chronic diseases Psychosocial Needs: Psychosocial Needs: None FREEDOM OF CHOICE EXPLAINED: [place] of Choice Given: Yes Level of Care Discussed: Home Care Financial Disclosure Provided: Yes Financial Disclosure Comments: Informed of [facility] connected facilities POTENTIAL TRANSITION PLANS Home Patient [...] 14, 2019 TIME: 4:12 PM PAGER/CONTACT #: [phone] Normal [facility] CONSULTon 08-14-2019 CONSULT HNO ID: [id number] Author: Bárbara Tenorio Service: Vascular Surgery Author [...] 100 mg tab(s) (ZYLOPRIM) 100 mg ORAL MO-WE-FR - docusate sodium 100 mg cap(s) (COLACE) [...] PRN - sodium chloride 0.65 % 2 [place] (AYR, OCEAN) 2 [place] EACH NOSTRIL PRN - saliva substitute combo [...] questions or concerns Mon-Tue 6a-5p please page [phone]. After 5pm and on Weekends and Holidays, please page [phone] if in ICU or [phone] if on RNF. SIGNATURE: Bárbara Tenorio MD PATIENT NAME: Cate Fox DATE: August 14, 2019 TIME: 6:48 PM PAGER: above Normal [facility] ED PROV NOTEon 08-14-2019 ED PROV NOTE HNO ID: [id number] Author: Desire Peralta DO Service: Emergency Medicine [...] time. Desire Peralta DO 08/14/19 1402 Normal [facility] ED PROV NOTE HNO ID: [id number] Author: Desire Peralta DO Service: Emergency Medicine [...] waves, normal QRS and QTC. Page to [facility] for admission. 1528: Dr. Arcos accepts patient for admission at this time. 1555: Discussed with Dr. Antonio- patient management information systems director, patient last full dialysis was Tuesday, so she only missed one full day (yesterday). He reports he called multiple outpatient centers ([place], [facility], [facility]) to try and get patient in for [...] documented findings and plan of care. Desire Peralta DO 08/15/192130 Normal [facility] HISTORY PHYSICALon 0 HISTORY PHYSICAL HNO ID: [id number] Author: Emanuel Ferrari Service: Hospital Medicine Author Type: Physician Type: HANDP Filed: 08/14/2019 7:11 PM Note Text: DEPARTMENT OF HOSPITAL MEDICINE [facility] PHYSICIANS HISTORY AND PHYSICAL EXAMINATION SERVICE DATE: [...] dialysis access by staff. Interventional radiology in [place] attempted to perform thrombectomy in the AV [...] an appointment with her vascular surgeon in [place] for of this week. FUNCTIONAL STATUS: Independent [...] MEDICATIONS Please see reconciled medication list in [facility] for details on home medications. ALLERGIES Allergen [...] Ferrari MD Decisional Capacity: Full Code Status: Guest Service Agent Spent on Advance Care Plannin minutes Disposition: Home Total time 30 minutes during this encounter, including chart review, discussion with nursing staff and/or other providers, documentation, order control clerk blood bank, and uvoj-au-cmrt time with patient. Plan of care discussed [...] AND WEEKEND COVERAGE: After 7pm please page [phone] [facility] HOSPon 08-14-2019 HOSP Patient:Li Fox MRN: [...] Stick (Blistex) sodium chloride 0.65 % 2 [place] (AYR, OCEAN) saliva substitute combo no.9 15 [...] waves, normal QRS and QTC. Page to [facility] for admission. 1528: Dr. Arcos accepts patient for admission at this time. 1555: Discussed with Dr. Antonio- patient management information systems director, patient last full dialysis was Tuesday, so she only missed one full day (yesterday). He reports he called multiple outpatient centers ([facility], [facility]) to try and get patient in for [...] emergent vascular intervention at this time. Desire Peralta, 08/14/19 1402 GIAN Ann 08/14/2019 4:15 PM [...] Current Advance Directive: Health Care Power of Geophysical Engineer;Living Will In Chart: No Dolly Driver Attempted to Assist with AD Completion: Yes [...] Information Primary Emergency Contact: EMERY FOX Address: [address] [id number] Mobile Relation: Spouse Supportive Patient Contact:: Yes [...] Completely I feel financially burdened by my plq-cs-nltewd expenses for my prescription medication:: 0 - Disagree Completely Risk Score: 0 Patient is categorized as: Low risk < 2 Are you interested in bedside delivery of your medications? No Is Patient Psychosocially Complex?: No ASSESSMENT AND PLAN: Medical Needs: Medical Needs: Two or more chronic diseases Psychosocial Needs: Psychosocial Needs: None FREEDOM OF CHOICE EXPLAINED: [place] of Choice Given: Yes Level of Care [...] 14, 2019 TIME: 4:12 PM PAGER/CONTACT #: [phone] Lindsey Khanna ([place]) 08/14/2019 4:23 PM Signed MEDICATION HISTORY Patient Name:Mai Fox : 1960 Source of history:Patient: Reliability of source: Appears reliable, clearly identified: Medication name, Medication dose, Medication route and Medication frequency, Pharmacy records: [facility] [phone], [facility] [phone] and [facility] [phone] and [facility] records Medication Nonadherence Identified: No barriers noted The above information represents the best possible medication history: Yes Additional comments: Oxqml-yg-Gdabtlpov Medication List Adjustments: Medication Regimen Changes: Verified [...] Too young to remember reaction. 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 Yes Lindsey Khanna ([place]) [id number] August 14, 2019 4:16 PM Bárbara Tneorio MD 08/15/2019 1:22 AM Cosign Needed CONSULT: VASCULAR SURGERY SERVICE SERVICE DATE: 08/14/2019 SERVICE TIME: 6:45 PM REASON FOR CONSULT: Fistula eval after thrombosis REQUESTING PHYSICIAN: Dr Ferrari PRIMARY CARE PHYSICIAN: Rohit Horan DO Subjective Ms. Fox is a 58 year old female with polycystic kidney disease, bilateral nephrectomies, sami who presents for difficulty with access during dialysis. Patient had a L AV fistula placed early 2016 at outside hospital. In 2017, she had a fistulogram with balloon plasty [...] 100 mg tab(s) (ZYLOPRIM) 100 mg ORAL MO-WE- - docusate sodium 100 mg cap(s) (COLACE) [...] PRN - sodium chloride 0.65 % 2 [place] (AYR, OCEAN) 2 [place] EACH NOSTRIL PRN - saliva substitute combo [...] MD 08/14/2019 7:11 PM Signed DEPARTMENT OF [facility] MEDICINE [facility] PHYSICIANS HISTORY AND PHYSICAL EXAMINATION SERVICE DATE: [...] dialysis access by staff. Interventional radiology in [place] attempted to perform thrombectomy in the AV [...] an appointment with her vascular surgeon in [place] for of this week. FUNCTIONAL STATUS: Independent [...] thrombosis (HCC) Parties in Attendance: Patient, Dr. Emanule Ferrari MD Decisional Capacity: Full Code Status: Guest Service Agent Spent on Advance Care Plannin minutes Disposition: Home Total time 30 minutes during this encounter, including chart review, discussion with nursing staff and/or other providers, documentation, order control clerk blood bank, and fais-lw-xzlc time with patient. Plan of care discussed [...] AND WEEKEND COVERAGE: After 7pm please page [phone] Tamanna Faye MD 08/15/2019 6:18 AM Incomplete [...] PRN - sodium chloride 0.65 % 2 [place] (AYR, OCEAN) 2 [place] EACH NOSTRIL PRN - saliva substitute combo [...] questions or concerns Mon-Fri 6a-5p please page [phone]. After 5pm and on Weekends and Holidays, please page [phone] if in ICU or [phone] if on RNF. SIGNATURE: Tamanna Faye MD PATIENT NAME: Cate Fox DATE: August 15, 2019 TIME: 6:17 AM Pager: Rain Vazquez MD, MD 08/15/2019 8:47 AM [facility] DEPARTMENT OF HOSPITAL MEDICINE PROGRESS NOTE SERVICE DATE: 08/15/2019 SERVICE TIME: 8:37 AM Hospital Medicine/Primary Attending: Rain Vazquez MD NIGHT AND WEEKEND COVERAGE: After 7pm please page [phone] CHIEF COMPLAINT: Malfunctioning HD fistula/ HD cath [...] PRN - sodium chloride 0.65 % 2 [place] (AYR, OCEAN) 2 [place] EACH NOSTRIL PRN - saliva substitute combo [...] EVERY 12 HOURS 08/14/19 1839 -- 08/14/19 1845 vte non-pharmacologic prophylaxis - none indicated (md,oh) 08/14/19 1845 activity - mobilize patient (md,in) Lines, Drains, and Airways Line Peripheral 08/14/19 [...] this note may have been generated using [employer] voice recognition software. Reasonable efforts were made to correct any dictation errors that resulted due to the programming of this software but some may still be present. Normal [facility] Hemogram/Diffon 08-14-2019 Abs Immature Grans 0.04 thou/cmm Normal 0.00-0.05 [facility] Comment on above: Performed By: #### C BCD1 #### [place] [address] Abs Neut (ANC) 6.90 thou/cmm High 1.56-6.13 [facility] Comment on above: Performed By: #### C BCD1 #### [place] [address] Abs. Baso 0.08 thou/cmm Normal 0.01-0.08 [facility] Comment on above: Performed By: #### C BCD1 #### [place] [address] Abs. Glynn 0.64 thou/cmm Normal 0.27-0.70 [facility] Comment on above: Performed By: #### C BCD1 #### [place] [address] Basophils/100 WBC (Bld) 0.8 % Normal [facility] Comment on above: Performed By: #### C BCD1 #### [place] [address] Eosinophils (Bld) [#/Vol] 0.46 thou/cmm High 0.00-0.31 [facility] Comment on above: Performed By: #### C BCD1 #### [place] [address] Eosinophils/100 WBC (Bld) 4.8 % Normal [facility] Comment on above: Performed By: #### C BCD1 #### [place] [address] Erythrocyte distribution width (RBC) [Ratio] 14.3 % Normal 11.7-14.4 [facility] Comment on above: Performed By: #### C BCD1 #### [facility] [address] [place] [address] Hematocrit (Bld) [Volume fraction] 30.1 % Low 34.1-44.9 [facility] Comment on above: Performed By: #### C BCD1 #### [facility] [address] [place] [address] Hemoglobin (Bld) [Mass/Vol] 9.4 g/dL Low 11.2-15.7 [facility] Comment on above: Performed By: #### C BCD1 #### [facility] [address] [place] [address] Immature Grans 0.40 % Normal [facility] Comment on above: Performed By: #### C BCD1 #### [place] [address] Lymphocytes (Bld) [#/Vol] 1.39 thou/cmm Normal 1.18-3.74 [facility] Comment on above: Performed By: #### C BCD1 #### [facility] [address] [place] [address] Lymphocytes/100 WBC (Bld) 14.6 % Normal [facility] Comment on above: Performed By: #### C BCD1 #### [facility] [address] [place] [address] MCH (RBC) [Entitic mass] 30.8 pg Normal 25.6-32.2 [facility] Comment on above: Performed By: #### C BCD1 #### [facility] [address] [place] [address] MCHC (RBC) [Mass/Vol] 31.2 % Low 31.6-34.8 [facility] Comment on above: Performed By: #### C BCD1 #### [facility] [address] [place] [address] MCV (RBC) [Entitic vol] 98.7 fL High 79.4-94.8 [facility] Comment on above: Performed By: #### C BCD1 #### [facility] [address] [place], [place] [address] Monocytes/100 WBC (Bld) 6.7 % Normal [facility] Comment on above: Performed By: #### C BCD1 #### [facility] [address] [place], [place] [address] Platelet mean volume (Bld) [Entitic vol] 9.8 fL Normal 9.4-12.3 [facility] Comment on above: Performed By: #### C BCD1 #### [facility] [address] [place], [place] [address] Platelets (Bld) [#/Vol] 205 thou/cmm Normal 182-369 [facility] Comment on above: Performed By: #### C BCD1 #### [facility] [address] [place] [address] RBC (Bld) [#/Vol] 3.05 mil/cmm Low 3.93-5.22 [facility] Comment on above: Performed By: #### C BCD1 #### [facility] [address] [place] [address] RDW SD 51.8 fl High 36.4-46.3 [facility] Comment on above: Performed By: #### C BCD1 #### [facility] [address] [place] [address] Seg Neutrophil 72.7 % Normal [facility] Comment on above: Performed By: #### C BCD1 #### [place] [address] WBC (Bld) [#/Vol] 9.49 thou/cmm Normal 3.98-10.[address] [facility] Comment on above: Performed By: #### C BCD1 #### [facility] [address] [place] [address] PLAN OF CAREon 08-14-2019 PLAN OF CARE HNO ID: [id number] Author: Orlando Britt (Pharmacist) Service: Pharmacy Author Type: Pharmacist Type: Plan of Care Filed: 08/15/2019 5:23 PM Note Text: MEDICATION HISTORY Patient Name:Mai Fox : 1960 Source of history:Patient: Reliability of source: Appears reliable, clearly identified: Medication name, Medication dose, Medication route and Medication frequency, Pharmacy records: [facility] [phone], [facility] [phone] and [facility] [phone] and [facility] records Medication Nonadherence Identified: No barriers noted The above information represents the best possible medication history: Yes Additional comments: Hvapt-ab-Gjsxltdnb Medication List Adjustments: Medication Regimen Changes: Verified [...] Too young to remember reaction. 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 Yes Lindsey Khanna ([place]) [id number] August 14, 2019 4:16 PM MEDICATION RECONCILIATION Patient Name:Mai Fox : 1960 Reconciliation: Yes All UPHOLSTERY COVERS INSPECTOR medications addressed by PUMA Britt, Pharmacist August 15, 2019 5:21 PM Pager: [phone] Normal [facility] Otheron 07-30-2019 COMMENT [facility]-Vascular Surgery-[facility] Work Phone: Comment on above: SEE SEPARATE REPORT. Otheron 12-27-2018 HLA-A+B+C (class I) Ab (S) SEE COMMENT [facility] Work Phone: Comment on above: HLA-CLASS I SP ANTIB YOSELIN IDENTIFICATION, HIGH DEFINITION SEE SEPARATE REPORT. HLA-DP+DQ+DR (class II) Ab (S) SEE COMMENT [facility] Work Phone: Comment on above: HLA-CLASS II SP ANTI BODY IDENTIFICATION, HIGH DEFINITION SEE SEPARATE REPORT. Otheron 12-08-2018 Interpreted by: ENID ROBERT12/08/18 12:05MRN: [id number] Name: CATE FOX STUDY:NR MRA HEAD W/O C; 12/08/2018 9:12 am INDICATION:Patient evaluated for kidney transplant. History of brain bleed infamily. Evaluation of iqdedv-ej-Ckfnsg for aneurysm. COMPARISON:MRI brain 12/08/2018 ORDERING CLINICIAN:PATRICK HA TECHNIQUE:Jxdt-cx-cktjwt MRA of the head was performed. The [...] I agreewith the findings as stated.Interpreted at [facility],[place], [place] signed by: FRANDY ROBERT 12/08/18 12:05 Normal [facility] Work Phone: Interpreted by: ENID ROBERT12/08/18 12:10MRN: [id number] Name: CATE FOX STUDY:NR MRI BRAIN WO; 12/08/2018 9:09 am INDICATION:History pf PKD, evaluate [place] of jo BRAIN WO AND MRA PROTOCOLUSED ON SNM4. PATIENT HAD EARRINGS THAT COULD NOT BE REMOVED CAUSINGARTIFACT ON THE IMAGES. AC/MEF. COMPARISON:None. ORDERING CLINICIAN:PATRICK HA TECHNIQUE:Axial T2, FLAIR, DWI, gradient echo T2 and sagittal and coronal E3jzslsjer images of brain were acquired. FINDINGS:CSF Spaces: [...] I agreewith the findings as stated.Interpreted at [facility],[place], [place] signed by: FRANDY ROBERT 12/08/18 12:10 Normal [facility] Work Phone: Otheron 11-30-2018 COMMENT MG-Cardiolo marcelo-Raheem [facility] Work Phone: Comment on above: SEE SEPARATE REPORT. HIV Antigen/Antibody Screeno n 11-23-2018 HIV Antigen/Antibody Screen NONREACTIVE See Below [facility] Work Phone: Comment on above: SOURCE: Reference [...] IA Ql < 3.1 <10 [facility]-T ranspl[facility] Work Phone: Comment on above: SOURCE: INTERPRETIVE CRITERIA:<10 mIU/mL....NONREACTIVE >=10 mIU/mL...REACTIVE . Patients receiving more than 5 mg/day of biotin may have interference in test results. A sample should be taken no sooner than eight hours after previous dose. Contact the testing laboratory for additional information. Hepatitis C Antibody Teston 11-23-2018 Hepatitis C Antibody Test NON-REACTIVE See Below MGABT Molecular ImagingTranspla [facility] Work Phone: Comment on above: SOURCE: Reference Ra nge: NONREACTIVE Patients receiving more than 5 mg/day of biotin may have interference in test results. A sample should be taken no sooner than eight hours after previous dose. Contact the testing laboratory for additional information. Otheron 11-23-2018 T. pallidum IgG IA Ql (S) NON REACTIVE See Below [facility] Work Phone: Comment on above: SOURCE: Reference Ra nge: NONREACTIVE Patients receiving more than 5 mg/day of biotin may have interference in test results. A sample should be taken no sooner than eight hours after previous dose. Contact [phone] for additional information. T-SPOT. TBon 11-23-2018 T-SPOT. TB Negative See Below [facility] Work Phone: Comment on above: Reference Range: [...] a quantitative test. T-SPOT. TB 0 [facility] Work Phone: T-SPOT. TB Passed [facility] Work Phone: Otheron 11-09-2018 Interpreted by: CKKGPA48/06/19 12:41MRN: [id number] Name: CATE FOX STUDY:NOH CARDIAC STRESS/REST INJECTION; NO PART 2 STRESS OR REST (NOCHARGE); NOH CARDIAC STRESS/REST (MYOCARDIAL PERFUSION/MIBI);11/09/2018 12:11 pm; 11/09/2018 11:37 am INDICATION:pre-kidney transplant. COMPARISON:None. [id number]; [id number] ORDERING CLINICIAN:NIHARIKA OLSON TECHNIQUE:DIVISION OF NUCLEAR MEDICINEPHARMACOLOGIC [...] findingsas stated. This study was interpreted at [place], [place].Electronically signed by: HORTENSIA 11/09/18 12:41 Normal [facility] Work Phone: [id number] [phone], [address] [place] [address], [address], [place] [address] [phone] and Xkpkqkr Pharmacologic Stress TestPatient Name: Cate Fox Ordering Physician: Niharika ReinaStphuong Date: 11/09/2018 Reading Physician: Humberto Zelaya MDMRN/PID: [id number] Supervising Physician: Humberto Zelaya MDAccession/Order#: [id number] Referring Physician: Niharika Colete of : 1960 PCP:Gender: F Fellow:Admit Date: 11/09/2018 Fellow:Admission Status: Outpatient Body Designer:Height: 152.40 cm Nurse: BUDDY WardWeight: 65.77 kg Foot Setter: N/ABSA: 1.63 m2 Technologist: Cas AlcarazMI: 28.32 kg/m2 Additional Staff:Age: 57 years cc report to:Patient Location: [facility] cc report to: Niharika Stark MDStudy Type: Syngo Nuclear OrderDiagnosis/ICD: Z01.818-Encounter for other preprocedural examinationIndication: Pre-Op EvaluationProcedure/CPT: Stress Test Interpretation-[id number]; Stress Test Supervision-[id number] Details: Correct procedure and correct patient verified [...] separately.5. The adequate level of stress was achieved.[id number] Samina Paz MDElectronically signed on 11/09/2018 at 12:43:39 PM Final -[facility] Work Phone: Interpreted by: AMARJIT PHILLIPSI11/12/18 20:05MRN: [id number] Name: MORENITACATE Verma STUDY:CT ABDOMEN AND PELVIS WO CONTRAST; 11/09/2018 [...] by: AMARJIT CRUM 11/12/18 20:05 Normal [facility] Work Phone: Otheron 11-01-2018 COMMENT [facility] Work Phone: Comment on above: SEE SEPARATE REPORT. Culture, urine Bacteria identified Cx Nom (U) Escherichia coli [facility] Work Phone: Laboratory - Microbiology an d Antimicrobial susceptibility Bacteria identified Cx Nom (Bld) Escherichia coli [facility] Work Phone: No Panel Information SARS-CoV-2 & FLU Antigen (Rapid) [facility] Work Phone: Vital Signs Date Time Vital Sign Value Performing Clinician Facility 11-27-2024 09:19-0400 Body height 152.[address] Carson Russell MD Work Phone: [facility] 11-27-2024 09:19-0400 Body mass index (BMI) [Ratio] 40 kg/m2 Dr. Carson Russell MD Work Phone: [facility] 11-27-2024 09:19-0400 Body weight 92.[address] Carson Russell MD Work Phone: [facility] 11-27-2024 09:19-0400 Diastolic blood pressure 87 mm[Hg] Dr. Carson Russell MD Work Phone: [facility] 11-27-2024 09:19-0400 Heart rate 73 /min Dr. Carson Russell MD Work Phone: [facility] 11-27-2024 09:19-0400 Respiratory rate 16 /min Dr. Carson Russell MD Work Phone: [facility] 11-27-2024 09:19-0400 Systolic blood pressure 131 mm[Hg] Dr. Carson Russell MD Work Phone: [phone] [place] [address] 11-17-2024 12:00-0400 Body temperature 98 [degF] Dr. Carson Russell MD Work Phone: [facility] 11-17-2024 12:00-0400 Diastolic blood pressure 71 mm[Hg] Dr. Carson Russell MD Work Phone: [phone] [place] [address] 11-17-2024 12:00-0400 Heart rate 68 /min Dr. Carson Russell MD Work Phone: [facility] 11-17-2024 12:00-0400 Respiratory rate 17 /min Dr. Carson Russell MD Work Phone: [facility] 11-17-2024 12:00-0400 SaO2% (BldA) [Mass fraction] 97 % Dr. Carson Russell MD Work Phone: [facility] 11-17-2024 12:00-0400 Systolic blood pressure 141 mm[Hg] Dr. Carson Russell MD Work Phone: [facility] 11-17-2024 07:14-0400 Body mass index (BMI) [Ratio] 41 kg/m2 Dr. Carson Russell MD Work Phone: [facility] 11-17-2024 07:14-0400 Body weight 95.[address] Carson Russell MD Work Phone: [facility] 11-17-2024 07:12-0400 Body height 152.[address] Carson Russell MD Work Phone: [facility] 09-12-2024 10:03-0400 Body mass index (BMI) [Ratio] 41.01 kg/m2 Tara Marcial MD Work Phone: [facility] 09-12-2024 10:03-0400 Body temperature 97.59 [degF] Tara Marcial MD Work Phone: [facility] 09-12-2024 10:03-0400 Body weight 95.25 kg Tara Marcial MD Work Phone: [facility] 09-12-2024 10:03-0400 Diastolic blood pressure 67 mm[Hg] Tara Marcial MD Work Phone: [facility] 09-12-2024 10:03-0400 Heart rate 81 /min Tara Marcial MD Work Phone: [facility] 09-12-2024 10:03-0400 Systolic blood pressure 142 mm[Hg] Tara Marcial MD Work Phone: [facility] 09-14-2023 10:12-0400 Body mass index (BMI) [Ratio] 39.14 kg/m2 LYNDSAY Mcfarlane MD Work Phone: [facility] 09-14-2023 10:12-0400 Body temperature 97.2 [degF] LYNDSAY Mcfarlane MD Work Phone: [facility] 09-14-2023 10:12-0400 Body weight 90.9 kg LYNDSAY Mcfarlane MD Work Phone: [facility] 09-14-2023 10:12-0400 Diastolic blood pressure 74 mm[Hg] LYNDSAY Mcfarlane MD Work Phone: [facility] 09-14-2023 10:12-0400 Heart rate 77 /min LYNDSAY Mcfarlane MD Work Phone: [facility] 09-14-2023 10:12-0400 Systolic blood pressure 159 mm[Hg] LYNDSAY Mcfarlane MD Work Phone: [facility] 06-05-2023 23:30-0500 Body mass index (BMI) [Ratio] 27 kg/m2 Dr. Carson Russell Work Phone: [facility] 05-25-2023 13:55-0500 Body temperature 96.9 [degF] Dr. Carson Russell Work Phone: [facility] 05-25-2023 13:55-0500 Diastolic blood pressure 71 mm[Hg] Dr. Carson Russell Work Phone: [facility] 05-25-2023 13:55-0500 Heart rate 69 /min Dr. Carson Russell Work Phone: [facility] 05-25-2023 13:55-0500 Respiratory rate 16 /min Dr. Carson Russell Work Phone: [facility] 05-25-2023 13:55-0500 SaO2% (BldA) [Mass fraction] 95 % Dr. Carson Russell Work Phone: [facility] 05-25-2023 13:55-0500 Systolic blood pressure 108 mm[Hg] Dr. Carson Russell Work Phone: [facility] 05-25-2023 10:02-0500 Body height 152.[address] Carson Russell Work Phone: [facility] 05-25-2023 10:02-0500 Body mass index (BMI) [Ratio] 37.4 kg/m2 Dr. Carson Russell Work Phone: [facility] 05-25-2023 10:02-0500 Body weight [address] Carson Russell Work Phone: [facility] 05-03-2023 11:25-0500 Body height 152.[address] Carson Russell Work Phone: [facility] 05-03-2023 11:19-0500 Body mass index (BMI) [Ratio] 37.9 kg/m2 Dr. Carson Russell Work Phone: [facility] 05-03-2023 11:19-0500 Body weight 88.[address] Carson Russell Work Phone: [facility] 05-03-2023 11:19-0500 Diastolic blood pressure 82 mm[Hg] Dr. Carson Russell Work Phone: [facility] 05-03-2023 11:19-0500 Systolic blood pressure 130 mm[Hg] Dr. Carson Russell Work Phone: [facility] 04-05-2023 23:07-0400 Body mass index (BMI) [Ratio] 27 kg/m2 Dr. Carson Russell Work Phone: [facility] 03-06-2023 04:58-0400 Body mass index (BMI) [Ratio] 27 kg/m2 [facility] 12-04-2022 02:21-0400 Body mass index (BMI) [Ratio] 27 kg/m2 Dr. Carson Russell Work Phone: [facility] 11-09-2022 14:02-0400 Body height 152.[address] Carson Russell Work Phone: [facility] 11-09-2022 14:02-0400 Body mass index (BMI) [Ratio] 36.3 kg/m2 Dr. Carson Russell Work Phone: [facility] 11-09-2022 14:02-0400 Body weight 84.[address] Carson Russell Work Phone: [facility] 11-09-2022 14:02-0400 Diastolic blood pressure 79 mm[Hg] Dr. Carson Russell Work Phone: [facility] 11-09-2022 14:02-0400 Heart rate 84 /min Dr. Carson Russell Work Phone: [facility] 11-09-2022 14:02-0400 Respiratory rate 18 /min Dr. Carson Russell Work Phone: [facility] 11-09-2022 14:02-0400 Systolic blood pressure 119 mm[Hg] Dr. Carson Russell Work Phone: [facility] 11-08-2022 10:21-0400 Body mass index (BMI) [Ratio] 36.5 kg/m2 Dr. Carson Russell Work Phone: [facility] 11-08-2022 10:21-0400 Body weight 84.[address] Carson Russell Work Phone: [facility] 11-08-2022 10:21-0400 Diastolic blood pressure 86 mm[Hg] Dr. Carson Russell Work Phone: [facility] 11-08-2022 10:21-0400 Heart rate 79 /min Dr. Carson Russell Work Phone: [facility] 11-08-2022 10:21-0400 Respiratory rate 19 /min Dr. Carson Russell Work Phone: [facility] 11-08-2022 10:21-0400 SaO2% (BldA) [Mass fraction] 96 % Dr. Carson Russell Work Phone: [facility] 11-08-2022 10:21-0400 Systolic blood pressure 133 mm[Hg] Dr. Carson Russell Work Phone: [facility] 10-03-2022 05:19-0400 Body mass index (BMI) [Ratio] 27 kg/m2 Dr. Carson Russell Work Phone: [facility] 09-03-2022 20:51-0400 Body mass index (BMI) [Ratio] 27 kg/m2 Dr. Carson Russell Work Phone: [facility] 08-16-2022 21:41-0400 Diastolic blood pressure 82 mm[Hg] Dr. Carson Russell Work Phone: [facility] 08-16-2022 21:41-0400 Heart rate 78 /min Dr. Carson Russell Work Phone: [facility] 08-16-2022 21:41-0400 Respiratory rate 16 /min Dr. Carson Russell Work Phone: [facility] 08-16-2022 21:41-0400 SaO2% (BldA) [Mass fraction] 98 % Dr. Carson Russell Work Phone: 1(228)792-178110 [place] [address] 08-16-2022 21:41-0400 Systolic blood pressure 140 mm[Hg] Dr. Carson Russell Work Phone: 9(589)984-149222 [place] [address] 08-16-2022 18:22-0400 Body height 152.[address] Carson Russell Work Phone: 4(806)175-083822 [place] [address] 08-16-2022 18:22-0400 Body mass index (BMI) [Ratio] 35.3 kg/m2 Dr. Carson Russell Work Phone: 8(985)208-216110 [place] [address] 08-16-2022 18:22-0400 Body temperature 97 [degF] Dr. Carson Russell Work Phone: 2(285)001-841222 [place] [address] 08-16-2022 18:22-0400 Body weight [address] Carson Russell Work Phone: 1(737)241-762722 [place] [address] 08-03-2022 23:16-0500 Body mass index (BMI) [Ratio] 27 kg/m2 Dr. Carson Russell Work Phone: 7(701)925-986210 [place] [address] 07-14-2022 12:51-0500 Body height 152.[address] Carson Russell Work Phone: 2(378)638-601514 [address] 07-14-2022 12:51-0500 Body mass index (BMI) [Ratio] 36.3 kg/m2 Dr. Carson Russell Work Phone: 4(458)230-953310 [place] [address] 07-14-2022 12:51-0500 Body temperature 98.4 [degF] Dr. Carson Russell Work Phone: 7(571)140-926710 [place] [address] 07-14-2022 12:51-0500 Body weight 84.[address] Carson Russell Work Phone: [facility] 07-14-2022 12:51-0500 Diastolic blood pressure 80 mm[Hg] Dr. Carson Russell Work Phone: 1(125)336-356810 [place] [address] 07-14-2022 12:51-0500 Heart rate 80 /min Dr. Carson Russell Work Phone: 7(810)060-623910 [place] [address] 07-14-2022 12:51-0500 Respiratory rate 14 /min Dr. Carson Russell Work Phone: 5(877)939-040022 [place] [address] 07-14-2022 12:51-0500 SaO2% (BldA) [Mass fraction] 98 % Dr. Carson Russell Work Phone: 8(042)672-226610 [place] [address] 07-14-2022 12:51-0500 Systolic blood pressure 134 mm[Hg] Dr. Carson Russell Work Phone: 4(342)801-933710 [place] [address] 07-07-2022 07:36-0500 Body mass index (BMI) [Ratio] 27 kg/m2 Dr. Carson Russell Work Phone: 1(361)701-706822 [place] [address] 06-06-2022 06:26-0500 Body mass index (BMI) [Ratio] 27 kg/m2 Dr. Carson Russell Work Phone: 5(713)367-665414 [address] 05-06-2022 02:25-0500 Body mass index (BMI) [Ratio] 27 kg/m2 Dr. Carson Russell Work Phone: 3(669)016-493014 [address] 04-06-2022 10:26-0400 Body mass index (BMI) [Ratio] 27 kg/m2 Dr. Carson Russell Work Phone: 3(742)898-350110 [place] [address] 03-25-2022 09:00-0400 Diastolic blood pressure 81 mm[Hg] Dr. Carson Russell Work Phone: 6(102)792-884610 [place] [address] 03-25-2022 09:00-0400 Systolic blood pressure 131 mm[Hg] Dr. Carson Russell Work Phone: 5(245)359-358410 [place] [address] 03-25-2022 08:42-0400 Body height 152.[address] Carson Russell Work Phone: [facility] 03-25-2022 08:42-0400 Body mass index (BMI) [Ratio] 33.7 kg/m2 Dr. Carson Russell Work Phone: [facility] 03-25-2022 08:42-0400 Body weight 78.[address] Carson Russell Work Phone: [facility] 03-25-2022 08:42-0400 Heart rate 82 /min Dr. Carson Russell Work Phone: [facility] 03-25-2022 08:42-0400 SaO2% (BldA) [Mass fraction] 99 % Dr. Carson Russell Work Phone: [facility] 03-17-2022 10:57-0400 Body mass index (BMI) [Ratio] 33.4 kg/m2 Tara Marcial MD Work Phone: [facility] 03-17-2022 10:57-0400 Body temperature 97.3 [degF] Tara Marcial MD Work Phone: [facility] 03-17-2022 10:57-0400 Body weight 77.56 kg Tara Marcial MD Work Phone: [facility] 03-17-2022 10:57-0400 Diastolic blood pressure 84 mm[Hg] Tara Marcial MD Work Phone: [facility] 03-17-2022 10:57-0400 Heart rate 86 /min Tara Marcial MD Work Phone: [facility] 03-17-2022 10:57-0400 Systolic blood pressure 135 mm[Hg] Tara Marcial MD Work Phone: [facility] 03-06-2022 01:49-0400 Body mass index (BMI) [Ratio] 27 kg/m2 Dr. Carson Russell Work Phone: [facility] 02-04-2022 01:00-0400 Body mass index (BMI) [Ratio] 27 kg/m2 Dr. Carson Russell Work Phone: [facility] Work Phone: 01-18-2022 16:51-0400 Body temperature 97.5 [degF] Dr. Carson Russell Work Phone: [facility] Work Phone: 01-18-2022 16:51-0400 Diastolic blood pressure 59 mm[Hg] Dr. Carson Russell Work Phone: [facility] Work Phone: 01-18-2022 16:51-0400 Heart rate 78 /min Dr. Carson Russell Work Phone: [facility] Work Phone: 01-18-2022 16:51-0400 Respiratory rate 16 /min Dr. Carson Russell Work Phone: [facility] Work Phone: 01-18-2022 16:51-0400 SaO2% (BldA) [Mass fraction] 95 % Dr. Carson Russell Work Phone: [facility] Work Phone: 01-18-2022 16:51-0400 Systolic blood pressure 96 mm[Hg] Dr. Carson Russell Work Phone: [facility] Work Phone: 01-18-2022 15:46-0400 Body height 152.[address] Carson Russell Work Phone: [facility] Work Phone: 01-18-2022 15:46-0400 Body mass index (BMI) [Ratio] 31.4 kg/m2 Dr. Carson Russell Work Phone: [facility] Work Phone: 01-18-2022 15:46-0400 Body weight [address] Carson Russell Work Phone: [facility] Work Phone: 01-03-2022 03:26-0400 Body mass index (BMI) [Ratio] 27 kg/m2 Dr. Carson Russell Work Phone: [facility] Work Phone: 12-04-2021 08:15-0400 Body mass index (BMI) [Ratio] 27 kg/m2 Dr. Carson Russell Work Phone: [facility] Work Phone: 12-03-2021 08:36-0400 Body height 152.[address] Carson Russell Work Phone: [facility] Work Phone: 12-03-2021 08:36-0400 Body mass index (BMI) [Ratio] 32.8 kg/m2 Dr. Carson Russell Work Phone: [facility] Work Phone: 12-03-2021 08:36-0400 Body weight 76.[address] Carson Russell Work Phone: [facility] Work Phone: 12-03-2021 08:36-0400 Diastolic blood pressure 74 mm[Hg] Dr. Carson Russell Work Phone: [facility] Work Phone: 12-03-2021 08:36-0400 Heart rate 82 /min Dr. Carson Russell Work Phone: [facility] Work Phone: 12-03-2021 08:36-0400 Respiratory rate 18 /min Dr. Carson Russell Work Phone: [facility] Work Phone: 12-03-2021 08:36-0400 SaO2% (BldA) [Mass fraction] 97 % Dr. Carson Russell Work Phone: [facility] Work Phone: 12-03-2021 08:36-0400 Systolic blood pressure 109 mm[Hg] Dr. Carson Russell Work Phone: [facility] Work Phone: 11-03-2021 21:46-0400 Body mass index (BMI) [Ratio] 27 kg/m2 Dr. Carson Russell Work Phone: [facility] Work Phone: 10-04-2021 05:26-0400 Body mass index (BMI) [Ratio] 27 kg/m2 [facility] Work Phone: 09-11-2021 14:59-0400 Body mass index (BMI) [Ratio] 32.19 kg/m2 Bunny Susie [employer] Work Phone: [facility] 09-11-2021 14:59-0400 Body temperature 98.1 [degF] Bunny Susie [employer] Work Phone: [facility] 09-11-2021 14:59-0400 Body weight 74.75 kg Bunny [employer]ie [employer] Work Phone: [facility] 09-11-2021 14:59-0400 Diastolic blood pressure 73 mm[Hg] Bunny Susie [employer] Work Phone: [facility] 09-11-2021 14:59-0400 Heart rate 85 /min Bunny Susie [employer] Work Phone: [facility] 09-11-2021 14:59-0400 Systolic blood pressure 121 mm[Hg] Bunny Susie [employer] Work Phone: [facility] 09-09-2021 12:47-0400 Body temperature 98.2 [degF] [facility] Work Phone: 09-09-2021 12:46-0400 Diastolic blood pressure 63 mm[Hg] [facility] Work Phone: 09-09-2021 12:46-0400 Heart rate 75 /min [facility] Work Phone: 09-09-2021 12:46-0400 Respiratory rate 23 /min [facility] Work Phone: 09-09-2021 12:46-0400 SaO2% (BldA) [Mass fraction] 96 % [facility] Work Phone: 09-09-2021 12:46-0400 Systolic blood pressure 99 mm[Hg] [facility] Work Phone: 09-09-2021 10:01-0400 Body height 152.4 cm [facility] Work Phone: 09-09-2021 10:01-0400 Body mass index (BMI) [Ratio] 31.4 kg/m2 [facility] Work Phone: 09-09-2021 10:01-0400 Body weight 73 kg [facility] Work Phone: 09-04-2021 03:01-0400 Body mass index (BMI) [Ratio] 27 kg/m2 [facility] Work Phone: 08-04-2021 10:19-0500 Body mass index (BMI) [Ratio] 27 kg/m2 Dr. Carson Russell Work Phone: [facility] Work Phone: 08-04-2021 09:19-0500 Body mass index (BMI) [Ratio] 27 kg/m2 [facility] Work Phone: 08-01-2021 11:40-0500 Heart rate 80 /min [facility] Work Phone: 08-01-2021 11:40-0500 Respiratory rate 16 /min [facility] Work Phone: 08-01-2021 11:09-0500 Body temperature 97.9 [degF] [facility] Work Phone: 08-01-2021 11:09-0500 Diastolic blood pressure 90 mm[Hg] [facility] Work Phone: 08-01-2021 11:09-0500 Systolic blood pressure 160 mm[Hg] [facility] Work Phone: 08-01-2021 08:54-0500 Body mass index (BMI) [Ratio] 34.2 kg/m2 [facility] Work Phone: 08-01-2021 08:54-0500 Body weight 79.5 kg [facility] Work Phone: 08-01-2021 08:54-0500 SaO2% (BldA) [Mass fraction] 100 % [facility] Work Phone: 07-07-2021 00:45-0500 Body mass index (BMI) [Ratio] 27 kg/m2 [facility] Work Phone: 06-07-2021 17:21-0500 Body mass index (BMI) [Ratio] 27 kg/m2 [facility] Work Phone: 09-27-2019 13:33-0400 BMI (Body Mass Index) 25.11 kg/m2 Aidan [facility] Work Phone: 09-27-2019 13:33-0400 Body Temperature 97.7 [degF] Aidan [facility] Work Phone: Comment on above: Method: Temporal 09-27-2019 13:33-0400 Body weight 66.37 kg Aidan Foreman [facility] Work Phone: 09-27-2019 13:33-0400 BP Diastolic 60 mm[Hg] Aidan [facility] Work Phone: Comment on above: Location: [facility]UE; Position: Sitting 09-27-2019 13:33-0400 BP Systolic 84 mm[Hg] Aidan [facility] Work Phone: Comment on above: Location: [facility]; Position: Sitting 09-27-2019 13:33-0400 BSA (Body Surface Area) 1.71 m2 [facility]idan Fore[facility] Work Phone: 09-27-2019 13:33-0400 Height 162.56 cm Aidan Fore[facility] Work Phone: 09-27-2019 13:33-0400 Pulse (Heart Rate) 75 /min Aidan Foreman -[facility] Work Phone: 09-27-2019 13:33-0400 Pulse Oximetry 95 % Aidan Foreman [facility] Work Phone: Comment on above: Source: 09-27-2019 13:33-0400 Respiratory Rate 16 /min Aidan Foreman -[facility] Work Phone: 11-23-2018 15:34-0400 BMI (Body Mass Index) 25.41 kg/m2 Mayra Miroslava PN-Qaddcrkkkl-Nkv her Work Phone: 11-23-2018 15:34-0400 Body Temperature 99.5 [degF] Mayra Miroslava FB-Npyxcyzozt-B at her Work Phone: Comment on above: Method: Tympanic 11-23-2018 15:34-0400 Body weight 67.16 kg Mayra Miroslava AS-Cyojqjjcpn-Dq t her Work Phone: 11-23-2018 15:34-0400 BP Diastolic 76 mm[Hg] Mayra Miroslava SN-Uklpblwggt-Ia t her Work Phone: 11-23-2018 15:34-0400 BP Systolic 125 mm[Hg] Mayra Miroslava GF-Kacrwkzkoh-Sz t her Work Phone: 11-23-2018 15:34-0400 BSA (Body Surface Area) 1.72 m2 Mayra Miroslava OP-Gjbqrlhhec-Cya her Work Phone: 11-23-2018 15:34-0400 Height 162.56 cm Mayra Miroslava LQ-Bqjqdpdzwk-Jq t her Work Phone: 11-23-2018 15:34-0400 Pulse (Heart Rate) 76 /min Mayra [place] [facility] -[facility] Work Phone: 11-23-2018 15:34-0400 Pulse Oximetry 100 % Mayra RODRÍGUEZHY-Ficfdwfjno-Bu t her Work Phone: 11-23-2018 15:34-0400 Respiratory Rate 17 /min Mayra RODRÍGUEZTransplant-M at her Work Phone: 11-23-2018 15:34-0400 0 1 Mayra [place] BR-Dcvisgrcod-Os t her Work Phone: Comment on above: Pain Scale 11-23-2018 13:34-0400 BMI (Body Mass Index) 25.47 kg/m2 Mayra MCDANIELSTF-Ewucaxiozi-Stu her Work Phone: 11-23-2018 13:34-0400 Body Temperature 98.7 [degF] Mayra RODRÍGUEZTransplant-M at her Work Phone: Comment on above: Method: Oral 11-23-2018 13:34-0400 Body weight 67.31 kg Mayra [place] TB-Wwrvtrudqy-Je t her Work Phone: 11-23-2018 13:34-0400 BP Diastolic 84 mm[Hg] Mayra [place] CO-Yixvdnzgpk-Br t her Work Phone: 11-23-2018 13:34-0400 BP Systolic 130 mm[Hg] Mayra [place] QW-Iezvlywyac-Jr t her Work Phone: 11-23-2018 13:34-0400 BSA (Body Surface Area) 1.72 m2 Mayra [place] TX-Ccgkusydii-Zhz her Work Phone: 11-23-2018 13:34-0400 Height 162.56 cm Mayra [place] MQ-Ajmcvaoxyp-Jw t her Work Phone: 11-23-2018 13:34-0400 Pulse (Heart Rate) 76 /min Mayra [place] MG-Transplant -Mat her Work Phone: 11-23-2018 13:34-0400 Pulse Oximetry 100 % Mayra [place] WH-Rgpurzortx-Kz t her Work Phone: Comment on above: Source: RA 11-23-2018 13:34-0400 0 1 Mayra [place] UI-Ttsmpmnvxx-Jk t her Work Phone: Comment on above: Pain Scale Encounters Encounter Date Encounter Type Care Provider Facility Start: 01-04-2025 ambulatory Carson [place] Facility:[facility] Start: 01-01-2025 ambulatory Carson [place] Facility:[facility] Start: 12-13-[address] [facility] Facility:[facility] Start: 11-27-2024 End: 11-27-[address] Chinedu Polo MD -[facility] Work Phone: Start: 11-27-2024 End: 11-27-[address] Carson Russell MD Work Phone: [facility] Work Phone: Start: 11-17-2024 End: 11-17-2024 Emergency department patient visit Dr. Carson Russell MD Work Phone: -Emergency Department Work Phone: Start: 10-25-2024 End: 10-25-[address] Carson Russell MD Work Phone: [facility] Work Phone: Start: 10-25-2024 End: 10-25-[address] Carson Russell MD Work Phone: [facility] Work Phone: Start: 10-25-2024 End: 10-25-[address] [facility] Facility:[facility] Start: 10-16-2024 End: 10-16-[address] Carson Russell MD Work Phone: [facility] Work Phone: Start: 10-16-2024 End: 10-16-[address] Carson Russell MD Work Phone: -[facility] Work Phone: Start: 10-16-2024 End: 10-16-[address] [facility] Facility:[facility] Start: 10-11-2024 End: 10-11-[address] Carson Russell MD Work Phone: [facility] Work Phone: Start: 10-11-2024 End: 10-11-[address] Krzysztof Wu MD -[facility] Work Phone: Start: 10-11-2024 End: 10-11-2024 ambulatory Carson Russell Facility:[facility] Start: 10-03-2024 End: 10-03-[address] Carson Russell MD Work Phone: [facility] Work Phone: Start: 10-03-2024 End: 10-03-[address] Krzysztof Wu MD -[facility] Work Phone: Start: 10-03-2024 End: 10-03-2024 ambulatory Carson Russell Facility:[facility] Start: 09-20-2024 End: 09-20-[address] Carson Russell MD Work Phone: -[facility] Work Phone: Start: 09-20-2024 End: 09-20-[address] [facility] Facility:[facility] Start: 09-12-2024 End: 09-12-2024 Office outpatient visit 25 minutes Tara Marcial MD Work Phone: [facility] Comment on above: Kidney replaced by t ransplant (Primary Dx); Aftercare following organ transplant; Immunosuppressed status; Long-term use of immunosuppressant medication; High risk medication use; Other general symptoms and signs; Abnormal blood chemistry; Screening for viral disease; At risk for infection transmitted from donor; Other complication of liver transplant; HTN (hypertension), benign; Hyperlipidemia, unspecified hyperlipidemia type Start: 09-12-2024 ambulatory SELF SELF Facility:[facility] Start: 06-06-[address] [facility] Facility:[facility] Start: 06-04-2024 End: 06-04-[address] [facility] Facility:[facility] Start: 05-18-2024 End: 05-18-2024 ambulatory Debra [place] [facility] Facility:[facility] Start: 05-07-2024 End: 05-07-2024 ambulatory Debra Astudillo [place] Facility:[facility] Start: 05-07-2024 End: 05-07-2024 ambulatory Carson Russell Facility:[facility] Start: 03-14-2024 End: 03-14-[address] [facility] Facility:[facility] Start: 01-28-2024 End: 01-28-2024 ambulatory Carson Russell Facility:[facility] Start: 12-29-2023 End: 12-29-2023 ambulatory Ronamy Toshia Facility:[facility] Start: 09-14-2023 End: 09-28-2023 Office outpatient visit 40 minutes Tara Marcial MD Work Phone: [facility] Comment on above: Kidney replaced by t ransplant (Primary Dx); Aftercare following organ transplant; Immunosuppressed status; High risk medication use; Other general symptoms and signs; Abnormal blood chemistry; At risk for infection transmitted from donor Start: 08-11-2023 End: 08-11-[address] Carson Russell Work Phone: [facility] Work Phone: Start: 08-11-2023 End: 08-11-[address] Carson Russell Work Phone: [facility] Work Phone: Start: 07-28-2023 End: 07-28-[address] Carson Russell Work Phone: [facility] Work Phone: Start: 07-28-2023 End: 07-28-[address] Carson Russell Work Phone: [facility] Work Phone: Start: 07-12-2023 End: 08-04-[address] Carson Russell Work Phone: [facility] Work Phone: Start: 07-12-2023 End: 08-04-[address] Carson Russell Work Phone: [facility] Work Phone: Start: 07-12-[address] Carson Russell Work Phone: [facility] Work Phone: Start: 06-23-2023 End: 06-23-[address] Carson Russell Work Phone: [facility] Work Phone: Start: 06-23-2023 End: 06-23-[address] Carson Russell Work Phone: [facility] Work Phone: Start: 06-02-2023 End: 06-02-[address] Carson Russell Work Phone: [facility] Work Phone: Start: 06-02-2023 End: 06-02-[address] Carson Russell Work Phone: [facility] Work Phone: Start: 05-25-2023 End: 05-25-2023 Admission to same day surgery center Dr. Carson Russell Work Phone: [facility] Start: 05-16-2023 End: 05-16-[address] Carson Russell Work Phone: [facility] Work Phone: Start: 05-16-2023 End: 06-05-[address] Carson Russell Work Phone: [facility] Work Phone: Start: 05-16-2023 End: 06-05-[address] Carson Russell Work Phone: [facility] Work Phone: Start: 05-16-[address] Carson Russell Work Phone: [facility] Work Phone: Start: 05-03-2023 End: 05-03-[address] Casron Russell Work Phone: [facility] Work Phone: Start: 05-03-2023 End: 05-03-[address] Carson Russell Work Phone: [facility] Work Phone: Start: 05-03-2023 End: 05-03-[address] Carson Russell Work Phone: [facility] Work Phone: Start: 03-14-2023 End: 03-14-2023 ambulatory [facility] Work Phone: Start: 03-14-2023 End: 03-14-2023 Discharged Recurring [facility] Work Phone: Start: 03-03-2023 End: 03-03-[address] Carson Russell Work Phone: [facility] Work Phone: Start: 02-15-2023 End: 02-15-[address] Carson Russell Work Phone: [facility] Work Phone: Start: 02-15-2023 End: 02-15-[address] Carson Russell Work Phone: [facility] Work Phone: Start: 02-14-2023 End: 02-14-[address] Carson Russell Work Phone: [facility] Work Phone: Start: 02-14-2023 End: 02-14-[address] Carson Russell Work Phone: [facility] Work Phone: Start: 02-14-[address] Carson Russell Work Phone: [facility] Work Phone: Start: 02-11-2023 End: 02-11-[address] Carson Russell Work Phone: [facility] Work Phone: Start: 02-11-2023 End: 02-11-[address] Carson Russell Work Phone: [facility] Work Phone: Start: 12-23-2022 End: 12-23-[address] Carson Russell Work Phone: [facility] Work Phone: Start: 12-13-2022 End: 12-13-[address] Carson Russell Work Phone: [facility] Work Phone: Start: 12-13-2022 End: 12-13-[address] Carson Russell Work Phone: [facility] Work Phone: Start: 11-16-2022 End: 11-16-[address] Carson Russell Work Phone: [facility] Work Phone: Start: 11-16-2022 End: 11-16-[address] Carson Russell Work Phone: [facility] Start: 11-09-2022 End: 11-09-[address] Carson Russell Work Phone: [facility] Start: 11-08-2022 End: 11-08-[address] Carson Russell Work Phone: [facility] Start: 11-08-2022 End: 11-08-[address] Carson Russell Work Phone: [facility] Work Phone: Start: 11-08-[address] Carson Russell Work Phone: [facility] Start: 09-13-2022 End: 10-03-[address] Carson Russell Work Phone: [facility] Work Phone: Start: 09-13-2022 End: 10-03-[address] Carson Russell Work Phone: [facility] Start: 08-17-2022 End: 08-17-[address] Carson Russell Work Phone: [facility] Work Phone: Start: 08-17-2022 End: 08-17-[address] Carson Russell Work Phone: [facility] Start: 08-16-2022 End: 08-16-2022 Emergency department patient visit Dr. Carson Russell Work Phone: [facility] Start: 08-16-2022 End: 09-03-[address] Carson Russell Work Phone: [facility] Work Phone: Start: 08-16-2022 End: 09-03-[address] Carson Russell Work Phone: [facility] Start: 08-16-[address] Carson Russell Work Phone: [facility] Start: 07-19-2022 End: 07-19-[address] Carson Russell Work Phone: [facility] Work Phone: Start: 07-19-2022 End: 07-19-[address] Carson Russell Work Phone: [facility] Start: 07-14-2022 End: 07-14-[address] Carson Russell Work Phone: [facility] Start: 07-12-2022 End: 07-12-[address] Carson Russell Work Phone: [facility] Work Phone: Start: 07-12-2022 End: 07-12-[address] Carson Russell Work Phone: [facility] Start: 07-12-[address] Carson Russell Work Phone: [facility] Start: 06-14-2022 End: 06-14-[address] Carson Russell Work Phone: [facility] Work Phone: Start: 06-14-2022 End: 06-14-[address] Carson Russell Work Phone: [facility] Start: 05-17-2022 End: 05-17-[address] Carson Russell Work Phone: [facility] Work Phone: Start: 05-17-2022 End: 05-17-[address] Carson Russell Work Phone: [facility] Start: 05-17-[address] Carson Russell Work Phone: [facility] Start: 05-13-2022 End: 05-13-[address] Carson Russell Work Phone: [facility] Work Phone: Start: 05-13-2022 End: 05-13-[address] Carson Russell Work Phone: [facility] Start: 05-04-2022 End: 05-05-2022 ambulatory DIEGO BOWMAN MD Facility:B Start: 05-04-2022 End: 05-04-2022 Patient encounter procedure DIEGO BOWMAN MD [facility] Start: 04-19-2022 End: 05-05-[address] Carson Russell Work Phone: [facility] Work Phone: Start: 04-19-2022 End: 05-05-[address] Carson Russell Work Phone: [facility] Start: 03-25-2022 End: 03-25-[address] Carson Russell Work Phone: [facility] Start: 03-17-2022 End: 03-17-2022 Office outpatient visit 25 minutes Tara Marcial MD Work Phone: [facility] Comment on above: Kidney replaced by t ransplant (Primary Dx); Long-term use of immunosuppressant medication; Abnormal blood chemistry; High risk medication use; Immunosuppressed status; Aftercare following organ transplant; Other general symptoms and signs; Other complication of kidney transplant; HTN (hypertension), benign; Hyperlipidemia, unspecified hyperlipidemia type Start: 03-15-2022 End: 03-15-[address] Carson Russell Work Phone: [facility] Work Phone: Start: 03-15-2022 End: 03-15-[address] Carson Russell Work Phone: [facility] Start: 02-17-2022 End: 02-17-[address] Carson Russell Work Phone: [facility] Work Phone: Start: 02-17-2022 End: 02-17-[address] Carson Russell Work Phone: [facility]/Neurology Start: 02-17-2022 Non-patient / Non-visit Dr. Ángel Russell Work Phone: [facility] Start: 02-15-2022 End: 02-15-[address] Carson Russell Work Phone: [facility] Work Phone: Start: 02-15-2022 End: 02-15-[address] Carson Russell Work Phone: [facility] Start: 02-15-[address] Carson Russell Work Phone: [facility] Start: 02-01-2022 End: 02-01-[address] Carson Russell Work Phone: [facility] Work Phone: Start: 02-01-2022 End: 02-01-[address] Carson Russell Work Phone: [facility] Start: 01-18-2022 End: 01-18-[address] Carson Russell Work Phone: [facility]Medical [facility] 3 Outp Start: 12-14-2021 End: 01-03-[address] Carson Russell Work Phone: [facility] Start: 12-03-2021 End: 12-03-[address] Carson Russell Work Phone: [facility] Start: 11-16-2021 End: 12-03-[address] Carson Russell Work Phone: [facility] Start: 10-12-2021 End: 10-12-2021 Discharged Recurring [facility] Start: 09-22-2021 End: 09-22-2021 Patient encounter procedure [facility] Start: 09-11-2021 End: 10-09-2021 Office outpatient visit 25 minutes Bunny UMANA Work Phone: [facility] Comment on above: Immunosuppressed sta tus (Primary Dx); Kidney replaced by transplant; Long-term use of immunosuppressant medication; Abnormal blood chemistry; Aftercare following organ transplant; High risk medication use; Other general symptoms and signs; Hypertension secondary to other renal disorders Start: 09-09-2021 End: 09-09-2021 [facility] Start: 09-07-2021 End: 09-07-2021 Discharged Recurring [facility] Start: 09-07-2021 Registered Recurring [facility] Start: 08-24-2021 End: 09-03-2021 Discharged Recurring [facility] Start: 08-01-2021 End: 08-01-2021 [facility] Start: 07-27-2021 End: 07-27-2021 Discharged Recurring [facility] Start: 06-29-2021 End: 07-06-2021 Discharged Recurring [facility] Start: 06-11-2021 End: 06-11-2021 Patient encounter procedure [facility] Spec[facility] Start: 08-13-2020 End: 08-13-2020 Orders Only Theresa Gavin Work Phone: [facility] Start: 04-22-2020 End: 04-23-2020 Patient encounter procedure FRANDY CAMPO [facility] Start: 04-22-2020 End: 04-22-2020 Subsequent hospital visit by physician Provider Not In [facility] Films Comment on above: Arrived Start: 01-02-2020 Patient encounter procedure Yana Torres IF-Uaobhourur-Tpgdvv Work Phone: Start: 11-01-2019 Patient encounter procedure Deepika Manrique UL-Fdhfjkltwq-Emhgxt Work Phone: Start: 09-27-2019 Patient encounter procedure Aidan Foreman [facility] Work Phone: Start: 12-08-2018 Patient encounter procedure Maggie Mukesh NX-Zkvqkbgtry-Gjeagpw Moore Work Phone: Start: 11-23-2018 Patient encounter procedure Aidan Foreman [facility] Work Phone: Start: 01-24-2017 Patient encounter procedure Niharika Olson VS-Nbyxryzizg-Bgsdwf Work Phone: Start: 12-13-2016 Patient encounter procedure Niharika Olson DV-Riyeykryzj-Djknnl Work Phone: Procedures Date Procedure Procedure Detail Performing Clinician Start: 11-17-[address] Carson Russell MD Work Phone: Start: 11-17-2024 SARS-CoV-2, Influenza & RSV (PCR) Dr. Ángel Russell MD Work Phone: Start: 11-17-2024 Urnls dip stick/tablet reagent auto microscopy Dr. Carson Russell MD Work Phone: Start: 11-17-[address] Carson Russell MD Work Phone: Start: 11-17-2024 X-ray of chest, PA and lateral views Dr. Carson Russell MD Work Phone: Start: 10-25-[address] Carson Russell [...] = 0.5 ng/mLPerformed by LC-MS/MS technology.Performed at: [employer] [id number] Director: Amaury Dubois MD, Phone: [phone] Start: 10-16-[address] phosphate [address] [...] = 0.5 ng/mLPerformed by LC-MS/MS technology.Performed at: [employer] [address] [id number] Director: Amaury Dubois MD, Phone: [phone] Start: 10-11-[address] inorganic phosphate measurement [address] [...] = 0.5 ng/mLPerformed by LC-MS/MS technology.Performed at: [facility] [employer] [id number] Director: Amaury Dubois MD, Phone: [phone] Start: 10-03-[address] Carson uRssell MD Work Phone: Start: 10-03-2024 Serum inorganic [...] technology Please note reference interval changePerformed at: [address] [id number] Director: Amaury Dubois MD, Phone: [phone] Start: 10-03-2024 Vitamin D, 25-hydroxy measurement Dr. [...] technology Please note reference interval changePerformed at: [address] [id number] Director: Amaury Dubois MD, Phone: [phone] Start: 09-12-2024 Creatinine other source Tara Marcial [...] MRI of brain without contrast Dr. Carson larson Work Phone: Start: 08-17-2022 CT of abdomen [...] class ii high definition panel qual Bunny Richards [facility] Work Phone: Start: 09-11-2021 Bilirubin direct Bunny Richards BS Work Phone: Start: 09-11-2021 Urnls dip stick/tablet reagent auto microscopy Bunny Richards [employer]BS Work Phone: Start: 09-11-2021 Urnls dip stick/tablet rgnt auto w/o microscopy Bunny Richards MBBS Work Phone: Start: 09-11-2021 Lipid 1996 [...] of renal transplant S/P kidney transplant Bunny Gargi BS Work Phone: Start: 09-11-2020 History of renal [...] section [place] History of renal transplant Hist ory of [...] Detail Author Start: 09-23-2032 Tetanus vaccination TETANUS [facility] Start: 12-17-2027 PNEUMOCOCCAL VACCINE SERIES (4 - PPSV23 if available, else PCV20) PNEUMOCOCCAL VACCINE SERIES (4 - PPSV23 if available, else PCV20) [facility] Start: 12-17-2027 PNEUMOCOCCAL VACCINE SERIES (4 of 4 - PPSV23 or PCV20) PNEUMOCOCCAL VACCINE SERIES (4 of 4 - PPSV23 or PCV20) [facility] Start: 11-19-2026 Pneumococcal vaccination PNEUMOCOCCAL VACCINE SERIES (4 of 4 - PCV20 or PCV21) [facility] Start: 09-11-2026 Fasting lipid profile LIPID SCREENIN G [facility] Start: 09-11-2026 Lipid panel LIPID SCREENING [facility] Start: 09-18-2025 End: 09-18-2025 Patient encounter procedure 09/18/2025 10:00 AM EDT Office Visit [facility] [address] [place] [phone] Tara Marcial MD [address] [place] [address] [facility] Start: 11-17-2024 Bacteria identified in Blood by Culture Blood Culture [facility] Start: 11-17-2024 [facility] Start: 11-17-2024 [facility] Start: 09-12-2024 End: 09-12-2024 Patient encounter procedure 09/12/2024 10:00 AM EDT Office Visit [facility] [address] [place] [address] Tara Marcial MD [address] [place] [address] [facility] Start: 09-11-2024 End: 09-11-2025 ALLOSCREEN RECIPIENT (POST TX PRA) ALLOSCREEN RECIPIENT (POST TX PRA) Lab Routine Kidney replaced by transplant Aftercare following organ transplant Immunosuppressed status Long-term use of immunosuppressant medication High risk medication use Other general symptoms and signs Abnormal blood chemistry Screening for viral disease At risk for infection transmitted from donor Expected: 09/11/2024, Expires: 09/11/2025 [facility] Comment on above: Expected: 09/11/2024 , Expires: 09/11/2025 Start: 08-11-2023 Dual energy X-ray absorptiometry Dexa Bone Density Study [facility] Start: 07-28-2023 Procedure [facility] Start: 05-25-2023 Anes transurethral w/urethrocystoscopy nos ANESTH BLADDER SURGERY [facility] Start: 05-25-2023 Litholapaxy smpl/sm <2.5 cm REMOVE BLADDER STONE [facility] Start: 05-25-2023 Patient discharge [facility] Start: 05-03-2023 Liquid based cervica l cytology screening [facility] Start: 09-20-2022 End: 09-20-2022 Patient encounter procedure 09/20/2022 Office Visit Transplant Surgery Tara Marcial MD [address] [place] [address] [facility] Start: 07-12-2022 Procedure [facility] Start: 03-17-2022 End: 03-17-2022 Patient encounter procedure 03/17/2022 Office Visit Transplant Surgery Tara Marcial MD [address] [place] [address] [facility] Start: 02-04-2022 Influenza vaccination INFLUENZA VACC INE (#1) [facility] Start: 09-09-2021 End: 09-09-2021 [facility] Work Phone: Start: 05-15-2020 End: 05-15-2020 Office Visit 05/15/2020 Office Visit General Surgery Frandy Campo MD [address] [place], [place] [id number] [phone] [facility] Start: 02-05-2020 Influenza vaccinatio n given Sequential Influenza Vaccine (#1) [facility] Start: 12-25-2019 Antibody hiv-1 HIV Antigen/An tibody Screen QF-Nvgyuricvm-Egmrxp Work Phone: Start: 12-25-2019 Antibody varicella-zoster Varicella Zoster IgG Antibody BI-Gktodbsgkq-Wjifim Work Phone: Start: 12-25-2019 Echocardiography Echocardiogram MG-T ransplant-[employer] Work Phone: Start: 12-25-2019 Hepatitis b core antibody hbcab total Hepatitis B Core Antibody, Total JW-Woglztekbr-Ajojmj Work Phone: Start: 12-25-2019 Hepatitis b surf antibody hbsab QS-Jtzuudwuut-Ncpren Work Phone: Start: 12-25-2019 Hepatitis c antibody Hepatitis C Antibody Test MR-Nhtapzdyct-Drdhxj Work Phone: Start: 12-25-2019 Iaad ia hepatitis b surface antigen Hepatitis B Surface Antigen RJ-Muqbexsuph-Derjsw Work Phone: Start: 12-25-2019 M. tuberculosis stim IFN-g Ql (Bld) [Interp] T-SPOT. TB EG-Oeiwaicmfe-Hylfyn Work Phone: Start: 12-25-2019 SYPHILIS SCREENING W ITH REFLEX SYPHILIS SCREENING WITH REFLEX KS-Cgblwyzrzc-Skpdcy Work Phone: Start: 12-01-2019 Screening for malign ant neoplasm of breast MAMMOGRAM SCREENING DISCUSSION [facility] Start: 12-01-2019 Screening mammography MAMMOGRA M SCREENING DISCUSSION [facility] Start: 11-15-2019 Colonoscopy COLORECTAL CAN CER SCREENING DISCUSSION [facility] Start: 11-15-2019 Screening for malign ant neoplasm of colon COLORECTAL CANCER SCREENING DISCUSSION [facility] Start: 08-19-2016 Hepatitis B vaccination HEP B VACCINE (2 of 3 - 19+ 3-dose series) [facility] Start: 2012 Administration of herpes zoster vaccine Zoster Vaccines (1 of 2) [facility] Start: 2012 Screening for malign ant neoplasm of colon [facility] Start: 2012 Zoster vaccine hzv l jayy for subcutaneous use ZOSTER (SHINGLES) VACCINE (1 of 2) [facility] Start: 10-27-2010 PNEUMOCOCCAL VACCINE SERIES (2 - PCV) PNEUMOCOCCAL VACCINE SERIES (2 - PCV) [facility] Start: 10-05-1995 Tetanus vaccination TETANUS [facility] Start: 12-17-1983 Screening for malign ant neoplasm of cervix CERVICAL CANCER SCREENING DISCUSSION [facility] Start: 1981 Third diphtheria, tetanus and acellular pertussis (DTaP) vaccination TDAP (ADULT) [facility] Start: 1981 Zoster vaccine hzv l jayy for subcutaneous use ZOSTER (SHINGLES) VACCINE (1 of 2) [facility] Start: 1980 Hepatitis C antibody , confirmatory test Hepatitis C Screening [facility] Start: 1978 COVID-19 Vaccine (1 of 2) COVID-19 Vaccine (1 of 2) [facility] Start: 1977 HIV screening HIV Screening [facility] Start: 1974 Adolescent depressio n screening assessment Depression Screening (PHQ9) [facility] Start: 12-17-1967 COVID-19 VACCINE (#1) COVID-19 VACCI NE (#1) [facility] Start: 1965 History and physical examination, annual for health maintenance Wellness Visit [facility] Start: 06-18-1963 COVID-19 VACCINE (#1) COVID-19 VACCI NE (#1) [facility] Start: 1962 Screening for malign ant neoplasm of cervix Pap Smear [facility] Start: 1962 Screening mammography Mammogram [facility] Start: 1962 Tetanus vaccination Tetanus: Every [address] [facility] ALLOSCREEN RECIPIENT (POST TX PRA) ALLOSCREEN RECIPIENT (POST TX PRA) Lab Routine Kidney replaced by transplant Aftercare following organ transplant Immunosuppressed status Long-term use of immunosuppressant medication High risk medication use Other general symptoms and signs Abnormal blood chemistry Screening for viral disease At risk for infection transmitted from donor 09/12/2024 10:41 AM EDT [facility] MG Breast - bilatera l Screening [facility] Path report.final Dx Spec [facility] Patient Education [facility] Work Phone: Patient referral [facility] Work Phone: Tacrolimus [Mass/volume] in Blood [facility] Work Phone: Tacrolimus [Mass/volume] in Blood [facility] Tacrolimus [Mass/volume] in Blood [facility] Tacrolimus [Mass/volume] in Blood [facility] Tacrolimus [Mass/volume] in Blood [facility] NEGATED: Highlighted row has been ruled out! Planned Goals not documented LA-Iyzklfdmhp-Wyjmgj Work Phone: Immunizations Immunization Date Immunization Notes Care Provider Donis gamez 03-23-2021 influenza virus vacc ine, unspecified formulation Tara Marcial MD Work Phone: [facility] 02-29-2020 Influenza virus vaccine W [facility] 03-06-2019 influenza, injectabl e, quadrivalent, contains preservative Bunny Susie MBBS Work Phone: [facility] 02-04-2017 influenza, injectabl e, quadrivalent, contains preservative Bunny Susie MBBS Work Phone: [facility] 04-06-2016 influenza, seasonal, injectable Bunny Susie MBBS Work Phone: [facility] 04-06-2013 influenza, seasonal, injectable Bunny Susie MBBS Work Phone: [facility] 10-27-2009 pneumococcal polysaccharide vaccine, 23 valent Bunny Susie MBBS Work Phone: [facility] 10-04-1985 diphtheria and tetan us toxoids, adsorbed for pediatric use Bunny Susie MBBS Work Phone: [facility] Payers Date Payer Category Payer Managed Care (unspecified) [facility] [id number] 2024 Unknown [id number] 2023 Self-pay [id number] 2022 Medicare [id number] 2019 Private Health Insurance [facility] [id number] 2019-Present [address] [place] [id number] 2019 Unknown [id number] 2019 Unknown [facility] HMO/COLES CE PLUS/LYNDA/LYNDA PLUS [id number] 2019-Present [id number] 2016 Unknown [id number] 2011 Medicare [id number] 2011 Medicare [id number] 2011 Medicare MEDICARE MEDICAR E PART A & B [id number] 2011-Present [place] [id number] 1962 Unknown [id number] [id number] .903 1962 Unknown [id number] 2.16.840.1.040666.3.579.2 .900 1962 Unknown [id number] 2.16.840.1.354623.3.579.2 .627 1960 Unknown [id number] 2.16.840.1.455793.3.579.2 .594 Unknown [id number] 2..840.1.664510.3.579.2 .462 Unknown [id number] 2.16.840.1.039152.3.579.2 .462 Unknown [id number] 2.840.1.956628.3.579.2 .462 Unknown [id number] 2..840.1.977462.3.579.2 .462 Unknown [id number] 2..840.1.001588.3.579.2 .462 Unknown [id number] 2..840.1.598870.3.579.2 .462 Unknown [id number] 2.16.840.1.939996.3.579.2 .462 Unknown [id number] 2.840.1.788880.3.579.2 .462 Unknown [id number] 2.16.840.1.252480.3.579.2 .462 Unknown [id number] 2..840.1.359900.3.579.2 .462 Unknown [id number] 2.16.840.1.881536.3.579.2 .462 Unknown [id number] 2.16.840.1.185496.3.579.2 .462 Unknown [id number] 2..840.1.679484.3.579.2 .462 Unknown [id number] 2.16.840.1.719052.3.579.2 .462 Unknown [id number] 2.16.840.1.470887.3.579.2 .462 Unknown [id number] 2.16.840.1.321256.3.579.2 .462 Unknown [id number] 2.16.840.1.998527.3.579.2 .462 Unknown [id number] 2.840.1.077167.3.579.2 .462 Social History Date Type Detail Facility Start: 1960 Sex Assigned At Not on file [facility] Start: 09-09-2021 End: 05-09-2023 Tobacco smoking status NHIS Unknown if ever smoked [facility] Start: 04-24-2020 None [facility] Start: 04-24-2020 Spouse/ Signif icant Other [facility] Start: 04-24-2020 Non-smoker [facility] Start: 1960 Sex Assigned At Female [facility] Start: 10-11-2019 End: 11-17-2024 Tobacco smoking status NHIS Never smoked tobacco [facility] Start: 10-11-2019 Tobacco use and exposure Smoke less tobacco non-user [facility] Start: 09-12-2020 Alcohol intake Lifetime non-d tatyana (finding) [facility] Start: 10-11-2019 History SDOH Alcohol Frequency 1 [facility] Start: 09-01-2021 End: 09-11-2021 Exposure to SARS-CoV-2 (event) Not sure [facility] Tobacco smoking status No Smokin g Status Entered [facility] Start: 10-11-2019 End: 09-12-2020 History of Social function [facility] Start: 10-11-2019 End: 09-12-2020 Alcohol Use Disorder Identification Test - Consumption [AUDIT-C] [facility] How often to you hav e a drink containing alcohol? Never [facility] Average Number of Drinks Not on file [facility] Start: 08-18-2021 Gender identity Identifies as female gender (finding) [facility] Start: 08-18-2021 Sexual orientation Heterosexua l (finding) [facility] Start: 02-07-2019 Sex Female (finding) [facility] NEGATED: Highlighted row - - SL-Hdtiejklzl-Eaisf r Work Phone: NEGATED: Highlighted row [facility] Medical Equipment Procedure Code Equipment Code Equipment Origin al Text Equipment Identifier Dates Stent Ureteral 6 fr 12cm 100cm .028in Closed Tip Push - [id number] Start: 09-11-2020 Stent Ureteral 6 fr 12cm 100cm .028in Closed Tip Push - [id number] Start: 10-06-2020 Goals Date Patient Goal Desired Activity /State Functional Status Date Assessment Result Facility 09-11-2020 Do you have serious difficulty walking or climbing stairs No 09/11/2020 1:07 AM EDT Day, KIARA Henning No [facility] 09-11-2020 Are you deaf, or do you have serious difficulty hearing No 09/11/2020 1:05 AM EDT DayMilady RN No [facility] 09-11-2020 Are you blind, or do you have serious difficulty seeing, even when wearing glasses No 09/11/2020 1:05 AM EDT DayMilady RN No [facility] 09-11-2020 Do you have difficul ty dressing or bathing No 09/11/2020 1:05 AM EDT Day, KIARA Henning No [facility] 09-11-2020 Because of a physica l, mental, or emotional condition, do you have difficulty doing errands alone such as visiting a physician's office or shopping No 09/11/2020 1:05 AM EDT DayMilady RN No [facility] NEGATED: Highlighted row Functional performance Functional status health issues are not documented Disease JI-Ysgbsffsau-Toeim r Work Phone: Mental Status Date Assessment Result Facility 05-25-2023 Cognitive function Level Of Cons ciousness Follows Commands;Drowsy [facility] Work Phone: 05-25-2023 Cognitive function Voice/Name [facility] Work Phone: 01-18-2022 Cognitive function Voice/Name;To uch/Shakin g;Light Pain;Deep Pain [facility] Work Phone: 09-09-2021 Cognitive function Level Of Cons ciousness Awake;Alert;Appropriate ;Follows Commands [facility] Work Phone: 09-11-2020 Because of a physical, mental, or emotional condition, do you have serious difficulty concentrating, remembering, or making decisions No 09/11/2020 1:05 AM EDT Milady Villagomez RN [facility] NEGATED: Highlighted row Cognitive function [Interpretation] Cognitive status health issues are not documented Disease RG-Hrrirppvev-Chddv r Work Phone: Clinical Notes 09-11-2020 to 11-17-2024 Tara Marcial MD - 09/12/2024 10:00 AM Marco Marcial MD - 09/12/2024 10:00 AM Anthony Boyer RN - 09/12/2024 10:00 AM Manjit Blanc RN - 09/12/2024 10:00 AM EDTRadiology Note Date & Type Note Facility 11-17-2024 Discharge summary [facility] 11-17-2024 Radiology Diagnostic study note [facility] Imaging Services [address] [place] [address] Chest PA and Lateral MR#: [id number] Acct: [id number] Name: CATE FOX Rep #: [id number] 63 From: Pet er Peer DO PCP: Dr. Carson Russell MD Status: REG ER Study:Chest PA and Lateral Date of Exam: 11/17/24 Exam# [id number] Ordering Dr: Alfonso Clement MD PROCEDURE: CHEST PA AND LATERAL 11/17/2024 REASON FOR EXAM: COUGH, SHORTNESS OF BREATH TECHNIQUE: CHEST PA AND LATERAL COMPARISON: February 17, 2022 FINDINGS: Hardware: Surgical clips centered around the midline in right left of midline inthe upper abdomen Heart: Normal size Mediastinum: Normal contour Lungs: Clear Bones: No aggressive bone lesion is appreciated. Lungs are clear. RAD/Chest PA and Lateral IMPRESSION: No acute process. Reading Location: [facility]- CC: Dr. Alfonso Clement MD; Dr. 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 Today we were happy to see Cate Fox at [facility] Post Transplant Office [...] follow-up at the [facility] on 09/12/24. The patient's recent [...] please do not hesitate to contact me. [facility] 09-12-2024 History and physical note Images from the original note were not included. Today we were happy to see Cate Fox at [facility] Post Transplant Office [...] follow-up at the [facility] on 09/12/24. The patient's recent [...] to contact me. documented in this encounter [facility] 09-12-2024 History of Present illness Narrative Images from the original note were not included. 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 [facility] [place] [address] Change in lab frequency / new order today: Labs every 3 months, give lab order to patient Labs needed in clinic today? Images from the original note were not included. Nursing Assessment In Clinic Patient is accompanied to clinic today by: Did patient require a wheelchair or medical transport for appointment: no Is patient employed: yes (Needed for [employer] forms) VITALS BP Readings from Last 3 [...] MOUTH EVERY EVENING PREFERRED LAB AND PHARMACY: [facility] [address] [facility] [place] [address] [id number] [place] [address] [phone] [facility] [place] [address] [facility] [address] - [address] [facility] [address] [place] [address] ROS and SCREEN: Chest Pain: negative Cough: negative SOB: negative Abd Pain: negative Nausea: negative Vomiting: negative Diarrhea: positive, consistent for 2-3 months Constipation: negative Dysuria: negative Edema: negative Tremors: negative Headaches: negative Wound issues: negative Any diagnosis of cancer/malignancy (any type) in the last year: no Follow with a Cone Worker? no Have a Primary Care provider? yes Been seen in the last 12 months? yes Alcohol consumption?: no Cigarette smoking, smokeless tobacco or vaping/e-cigarette use?: no Marijuana (any form), CBD oil or street drug use?: no QUESTIONS OR CONCERNS TO ADDRESS WITH PHYSICIAN: Recent diarrhea Best way to lose weight, nutrition consult? Intermittent fasting? documented in this encounter [facility] 09-12-2024 Instructions Kristina Blanc RN - 09/12/2024 10:00 AM EDT Medication changes: Labs today, continue every 3 months. Please obtain a Tacrolimus level soon. Please make appointment with Dr Marcial in 1 year. Weight loss ideas: Nutrition consult locally Ok for Intermittent fasting. documented in this encounter [facility] 09-14-2023 History of Present illness Narrative Images from the original note were not included. 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 [facility] [place] [address] [id number] [place] [address] [phone] [facility] [place] [address] [facility] [place] [address] [place] [address] ROS and SCREEN: Chest Pain: negative Cough: positive - sinuses turned into cold SOB: negative Abd Pain: negative Nausea: negative Vomiting: negative Diarrhea: negative Constipation: negative Dysuria: negative Edema: negative Tremors: negative Headaches: negative Wound issues: negative Any diagnosis of cancer/malignancy (any type) in the last year: no Do you follow with a [facility] Worker? 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 documented in this encounter [facility] 09-14-2023 Instructions Yeny Mckinnon RN - 09/14/2023 10:30 AM EDT - No medication changes - Routine labs every 3 months- additional labs in clinic today. - Return to clinic in [address] Marcial documented in this encounter [facility] 05-03-2023 Note [facility] Pap Smear Specimen Adequacy May 03, 2023 11:59pm Comment . Satisfactory for evaluation. Endocervical and/or squamous metaplasticcells (endocervical component) are present. Comment on above: Satisfactory for beba luation. Endocervical and/or squamous metaplasticcells (endocervical component) are present. 05-03-2023 Note [facility] Pap Smear Specimen Adequacy May 03, 2023 11:59pm Comment . Satisfactory for evaluation. Endocervical and/or squamous metaplasticcells (endocervical component) are present. Comment on above: Satisfactory for beba luation. Endocervical and/or squamous metaplasticcells (endocervical component) are present. 05-03-2023 Note [facility] Pap Smear Specimen Adequacy May 03, 2023 11:59pm Comment . Satisfactory for evaluation. Endocervical and/or squamous metaplasticcells (endocervical component) are present. Comment on above: Satisfactory for beba luation. Endocervical and/or squamous metaplasticcells (endocervical component) are present. 05-03-2023 Note [facility] Pap Smear Specimen Adequacy May 03, 2023 11:59pm Comment . Satisfactory for evaluation. Endocervical and/or squamous metaplasticcells (endocervical component) are present. Comment on above: Satisfactory for beba luation. Endocervical and/or squamous metaplasticcells (endocervical component) are present. 05-03-2023 Note [facility] Pap Smear Specimen Adequacy May 04, 2023 12:59am Comment . Satisfactory for evaluation. Endocervical and/or squamous metaplasticcells (endocervical component) are present. Comment on above: Satisfactory for beba luation. Endocervical and/or squamous metaplasticcells (endocervical component) are present. 05-03-2023 Note [facility] Pap Smear Specimen Adequacy May 03, 2023 11:59pm Comment . Satisfactory for evaluation. Endocervical and/or squamous metaplasticcells (endocervical component) are present. Comment on above: Satisfactory for beba luation. Endocervical and/or squamous metaplasticcells (endocervical component) are present. 05-03-2023 Note [facility] Pap Smear Specimen Adequacy May 03, 2023 11:59pm Comment . Satisfactory for evaluation. Endocervical and/or squamous metaplasticcells (endocervical component) are present. Comment on above: Satisfactory for beba luation. Endocervical and/or squamous metaplasticcells (endocervical component) are present. 05-04-2022 Evaluation + Plan note Future Scheduled TestsCT Knee w/o Contrast Left 05/04/22 [facility] 03-17-2022 History of Present illness Narrative Images from the original note were not included. PREP SHEET FOR NEPHROLOGY CLINIC Patient Name: Cate Fox Production Administrator: Wolf Ortega Date of Kidney Transplant: 09/11/2020 Primary Disease: Polycystic Kidneys Transplant [employer] Operator: Tara Marcial Primary Care physician: Carson Russell Last Transplant Appointment: 09/11/2021 MONITORING: DGF Elevated cr, but not on HD HLA Match: A1 B2 DR1 Living Donor? No Campath Recipient? No ATG/ Steroid [place] ID Follow-up Testing Not < 28 days [...] sodium, ondansetron, sodium bicarbonate, sulfamethoxazole-trimethoprim, and tacrolimus [facility] [address] [place] [address] Change in lab frequency / new order [...] positive January Learning Barriers: Barriers Noted: None Cultural/Anglican Beliefs: None Emotional Barriers: None Desire/motivation to [...] kg (171 lb). Update Pharmacy: Pharmacy : [id number] - [place] [phone] - [phone] [phone] [facility] [facility] [place] [address] [facility] [place] [address] [address] [place] [address] Prescriptions are 90 days LAB: [facility] [address] [facility] [place] [address] Images from the original note were not included. Today we were happy to see Cate Fox at [facility] Post Transplant Office [...] to contact me. documented in this encounter [facility] 03-17-2022 Instructions Anand Katz RN - 03/17/2022 11:00 AM EDT Stop Bicarb Labs in clinic Return in 6 months OK for ortho referral documented in this encounter [facility] 09-11-2021 Instructions Edward Machado RN - 09/11/2021 3:15 PM EDT - labs letter given for once a month labs, additional labs in clinic - No medication changes - Return to clinic 03/17/2022 with Tara Marcial MD as scheduled documented in this encounter [facility] 09-11-2021 History of Present illness Narrative Images from the original note were not included. PREP SHEET FOR NEPHROLOGY CLINIC Patient Name: Cate Fox Production Administrator: Wolf Ortega Date of Kidney Transplant: 09/11/2020 365d Cr trending up Primary Disease: Polycystic Kidneys Transplant [employer]cre[employer] Operator: Tara Marcial Primary Care physician: Carson Russell Last Transplant Appointment: 03/09/2021 MONITORING: DGF Elevated cr, but not on HD HLA Match: A1 B2 DR1 Living Donor? No [place] Recipient? No ATG/ Steroid [place] ID Follow-up Testing Not < 28 days [...] sodium, ondansetron, sodium bicarbonate, sulfamethoxazole-trimethoprim, and tacrolimus [facility] [address] [facility] [place] [address] Change in lab frequency / new order [...] by mouth 2 times daily. ADDITIONAL INFORMATION: [facility] [address] [facility] [place] [address] [id number] [place] [address] [phone] [facility] [place] [address] [facility] - [facility] [place] [address] - [address] [facility] [address] [place] [address] [place] [address] ROS and SCREEN: Chest Pain: negative Cough: [...] PHYSICIAN: I saw Cate Fox at the [facility] on 09/11/2021. Patient is a 60 y.o. female s/p donor kidney transplant on 09/11/20. Her torres martinez kidney disease was noted to be ADPKD. [...] History: Procedure Laterality Date KIDNEY TRANSPLANT W/O KALISPEL NEPHRECTOMY N/A 09/11/2020 Laterality: N/A; Surgeon: Ninfa Brown MD; Location: [facility] MAIN OR NEPHRECTOMY Bilateral 2015 OTHER SURGICAL [...] you have any questions. Bunny Richards MD senior business objects developer Division of Nephrology [facility] documented in this encounter [facility] 09-11-2020 Evaluation note Diagnosis Onset Date Abdominal wall bulge acute Non-ischemic cardiomyopathy acute Essential (primary) hypertension chronic Renal transplant recipient September 11, 2020 resolved [facility] Work Phone: Discharge summary Author Alfonso Clement [facility] Note Date/Time November 17, 2024 11:4 8am [facility] Medical Records Department [address] [place] [address] Emergency Department Summary 11/17/24 MR#: [id number] Acct: [id number] Name: CATE FOX Rep #:[id number] 20 : 1960 63 From: Alfonso Clement MD PCP: Dr. Carson Russell MD Status:REG ER Location: ED HPI History of Present Illness Chief Complaint: Cough Narrative Narrative: 63-year-old female presents with her because of cough, headache, generalized weakness that she has had for 6 days. She states it started more asan upper respiratory infection and sinus problem. She states that she developeda headache 5 days ago on Tuesday which improved. She felt like she was getting more of a chest cold, and she has been coughing up a watery like substance. Yesterday she began feeling feverish. She denies any exacerbating or alleviating factors but states that she does not feel well with multiple somaticcomplaints. She has developed diarrhea as well. [facility] Medical History COVID-19 Wears glasses Wears partial dentures Wears [...] renal failure on dialysis Polycystic kidney disease Home Medications ?Medication ?Instructions ?Recorded ?Last Taken ?Type allopurinol 100 mg tablet 100 mg PO MOWEFR gout 11/16/24 History albuterol sulfate 90 mcg/actuation 2 puff inhalation Q 6H PRN Wheezing 12/27/19 Unknown History aerosol inhaler aspirin 81 mg tablet,delayed 81 mg PO DAILY 07/15/20 0 11/16/24 History release (Adult Aspirin Regimen) magnesium oxide 400 mg PO BID 12/03/2111/16 History tacrolimus 1 mg capsule, 1 mg PO BID 03/25/22 5 History immediate-release mycophenolate sodium 180 mg 180 mg PO BID 11/09/22 History tablet,delayed release sulfamethoxazole 800 1 tab PO MOWEFR 05/09/23 History mg-trimethoprim 160 mg tablet cholecalciferol (vitamin D3) 1,250 1,250 mcg PO QWEEK 01/28/24 11/10/24 History mcg (50,000 unit) capsule coenzyme Q10 100 mg capsule 100 mg PO DAILY 01/28/24 0 11/16/24 History atorvastatin 20 mg tablet 20 mg PO QHS #90 TABLETS 11/16/24 Rx dextromethorphan polistirex 30 20 ml PO Q12H PRN cough 11/17/24 11/16/24 History mg/5 mL oral susp ext.release 12hr (Delsym 12 hour) guaifenesin 100 mg/5 mL oral 400 mg PO Q6H PRN cough 0 11/17/24 11/16/24 History liquid (Mucinex Fast-Max Chest Congestion) oxycodone 5 mg tablet 5 mg PO Q6H PRN low back kings n 11/17/24 Unknown History Allergy/AdvReac Type Severity Reaction Status Date / Time cephalexin Allergy Mild rash Verified 11/17/24 07:12 codeine AdvReac Nausea Verified 11/17/24 07:12 Family History Father Aneurysm Kidney disease Surgical History Hx of colonoscopy Hx of surgical procedure Hx of kidney transplant History of knee replacement procedure of left knee (~07/2022) Renal transplant recipient (09/11/20) History of left heart catheterization (06/30/20) History of cholecystectomy History of right nephrectomy History of left nephrectomy History of s/p port placement Social History Smoking Status: Never smoker alcohol intake: never substance use type: does not use caffeine: Yes what type of physical activity do you participate in: none seatbelt use: always do you feel safe at home: Yes additional social history: Hkahluf-Fgdqml-Vqhbp [employer] ROS ROS ED ROS Narrative Review of systems positive for cough, productive of clear sputum, subjective fever. Mild generalized weakness, feeling lightheaded as well. Positive diarrhea. No exacerbating or alleviating factors. No abdominal pain. No chestpain. EXAM Physical Exam Narrative Exam Narrative: Afebrile. Vital signs noted. Nontoxic-appearing. Cardiovascular examination of is a regular rate and rhythm. Lungs are clear to auscultation bilaterally. Abdomen soft and nontender with normoactive bowel sounds. No guarding or rebound. Neurological examination nonfocal nonlateralizing. HEENT examination does show mild nasal congestion. Mucous membranes are tacky. Airway patent. Const Vital Signs: 11/17/24 07:12 11/17/24 07:21 11/17/24 09:12 Temperature 98 F Temperature Source Temporal Pulse Rate 87 73 Respiratory Rate 14 17 Respiratory Effort Normal Respiratory Depth Normal Respiratory Pattern Normal Blood Pressure 137/74 H 141/71 H Blood Pressure Mean 95 94 Pulse Ox 98 95 Oxygen Delivery Method Room Air Room Air Room Air 11/17/24 11:00 Temperature Temperature Source Pulse Rate 68 Respiratory Rate Respiratory Effort Respiratory Depth Respiratory Pattern Blood Pressure Blood Pressure Mean Pulse Ox 97 Oxygen Delivery Method Room Air MDM MDM MDM Narrative Medical decision making narrative: Differential diagnosis includes but not limited to viral syndrome versus dehydration versus other electrolyte abnormality secondary to her diarrhea. She was bolused normal saline. I discussed with respiratory swabbing, and they agreed, although her symptoms have been ongoing for about 6 days. Regardless ofthe results, they are outside the window for effectiveness of antivirals. EKG was obtained and interpreted by myself independently as normal sinus rhythm at 77 bpm without ectopy or acute ST changes. No STEMI. I reviewed her laboratory work and she has a leukocytosis of 19.8 with hemoglobin 12.3, hematocrit 38.2, platelet count normal at 277. Electrolyte panel shows BUN of 16 and creatinine 1.49. When compared to prior labs, this is around her baseline for chronic kidney disease and status post kidney transplant. Glucose elevated at 147 with a normal anion gap of 10. Given her leukocytosis, she is not meeting SIRS criteria and she is not tachycardic, but I did obtain blood cultures as well as a lactic acid. Lactic acid is normal at 1.3. I reviewed her respiratory swabs which are negative for COVID, influenza, and RSV. Chest x-ray interpreted by myself independently shows no evidence of an acute process,no consolidation, no pneumonia. I do not feel antibiotics are indicated. She eventually gave a urine sample and this was reviewed as well. It is negative for infection with 0 WBCs and 0-5 squamous epithelial cells. Upon repeat examination, she is states she is feeling slightly improved. She isnot meeting any SIRS criteria except for the leukocytosis as she is not tachycardic, and she has a negative lactic acid as well. Through shared decision making, she was offered observation, but declined and states she feels well enough to go home. I reviewed return instructions with the patient and rudi who is a waiter/waitress take out. She prefers discharge. [facility] Return instructions reviewed. Disposition is dischargedhome in stable condition. History & Record Review Discussion w/independent historian: Patient Lab Data Attestation: I reviewed the patient's lab results. Labs: Laboratory Results - last 24 hr 11/17/24 11/17/24 11/17/24 07:35 08:18 10:45 WBC 19.8 H RBC 4.12 L Hgb 12.3 Hct 38.2 MCV 92.7 MCH 29.9 MCHC 32.2 RDW Std Deviation 44.8 H RDW Coeff of Radha 13.1 Plt Count 277 MPV 9.8 Immature Gran % (Auto) 0.700 Neut % (Auto) 87.4 H Lymph % (Auto) 3.7 L Glynn % (Auto) 7.6 Eos % (Auto) 0.2 Baso % (Auto) 0.4 Absolute Neuts (auto) 17.3 H Absolute Lymphs (auto) 0.73 L Nucleated RBC % 0 Sodium 138 Potassium 4.5 Chloride 106 Carbon Dioxide 21.4 Anion Gap 10 BUN 16 Creatinine 1.49 H Estim Creat Clear Calc 40.92 L Est GFR (MDRD) Non-Af 40 L BUN/Creatinine Ratio 10.7 Glucose 147 H Lactic Acid 1.3 Calcium 9.6 Urine Color Yellow Urine Clarity Sl. Cloudy Urine pH 8.0 Ur Specific [place] 1.015 Urine Protein 15 H Urine Glucose (UA) Normal Urine Ketones Negative Urine Occult Blood Negative Urine Nitrite Negative Urine Bilirubin Negative Urine Urobilinogen Normal Ur Leukocyte Esterase 25 H Urine RBC 0 SEEN Urine WBC 0 SEEN Ur Squamous Epith Cells 0-5 SEEN Amorphous Sediment 1+ Urine Bacteria 0 SEEN Urine Mucus 0 SEEN Radiography Diagnostic Testing: Clinical Impression(s) from Imaging Studies Chest X-Ray 11/17/24 07:30 IMPRESSION: No acute process. Reading [facility] Discharge Plan Triage Chief Complaint: Cough ED Provider: Alfonso Clement Dx/Rx/DC Orders Clinical Impression: Leukocytosis, Upper respiratory infection Instructions: ED URI, Viral, No Abx (Adult) Prescriptions: No Action albuterol sulfate 90 mcg/actuation HFA aerosol inhaler 2 puff INHALATION Q6H PRN (Reason: Wheezing) tacrolimus 1 mg capsule 1 mg PO BID Patient Comments: 1 capsules in the AM, 1 at HS magnesium oxide 400 mg magnesium capsule 400 mg PO BID mycophenolate sodium 180 mg tablet,delayed release (DR/EC) 180 mg PO BID cholecalciferol (vitamin D3) 1,250 mcg (50,000 unit) capsule 1,250 mcg PO QWEEK Patient Comments: PT TAKES ON SUNDAYS coenzyme Q10 100 mg capsule 100 mg PO DAILY allopurinol 100 MG tablet 100 mg PO MOWEFR sulfamethoxazole-trimethoprim 800-160 mg tablet 1 tab PO MOWEFR Patient Comments: TAKE 1 TABLET BY MOUTH THREE TIMES A WEEK. oxycodone 5 mg tablet 5 mg PO Q6H PRN (Reason: low back pain) guaifenesin [Mucinex Fast-Max Chest-Congest] 100 mg/5 mL liquid 400 mg PO Q6H PRN (Reason: cough) dextromethorphan polistirex [Delsym 12 hour] 30 mg/5 mL suspension,extended rel 12 hr 20 ml PO Q12H PRN (Reason: cough) aspirin [Adult Aspirin Regimen] 81 mg tablet,delayed release (DR/EC) 81 mg PO DAILY atorvastatin 20 mg tablet 20 mg PO QHS Qty: 90 3RF Primary Care Provider: Carson Russell Referrals: Carson Russell MD [Primary Care Provider] - 3-5 Days Activity Restrictions/Additional Instructions: Return to the emergency department with fever, difficulty breathing, increased malaise and fatigue, new or worsening symptoms. Print Language: Mauritian Disposition Disposition: Home, Self Care What to do if you have Problems For any increased pain, shortness of breath, bleeding, nausea or vomiting, chestpain, or any unexpected problems, contact your Primary Care Provider. Call [facility] ([phone]) or report to the closest Emergency Room. Call 911 if necessary. 11/17/24 1148 <Electronically signed by Alfonso Clement MD> Cosigner Signature (if applicable): CC: Dr. Carson Russell MD ~ Signed [facility] Work Phone: Evaluation noteNo assessment information available [facility] Work Phone: Evaluation note* Diagnosis Immunosuppressed status- [...] other renal disorders [facility] Diagnosis Onset Date Resolution Status Essential (primary) hypertension chronic Non-ischemic cardiomyopathy resolved [facility] Work Phone: Evaluation note* Diagnosis Kidney replaced [...] unspecified hyperlipidemia type [facility] Diagnosis Onset Date Resolution Status Contact with and (suspected) exposure to other viral communicable diseases acute [facility] Work Phone: evaluation note* Diagnosis Onset Date Resolution Status Encounter for routine gynecological examination noneactive [facility] Work Phone: Evaluation note* Diagnosis Kidney replaced by transplant- Primary Aftercare following organ transplant Immunosuppressed status Unspecified disorder of immune mechanism High risk medication use Encounter for long-term (current) use of other medications Other general symptoms and signs Abnormal blood chemistry Other abnormal blood chemistry At risk for infection transmitted from donor [facility] Kid[facility] replaced by transplant- Primary [...] hyperlipidemia type [facility] N[facility] No data available for this section [facility] Discharge instructions No data available for this section [facility] Discharge instructions Additional Instructions Return to the emergency department with fever, difficulty breathing, increased malaise and fatigue, new or worsening symptoms.[facility] Work Phone: Progress note No data available for this section [facility] Reason for referral (narrative)No reason for referral information availableWParkview Health [facility] Work Phone: Summary Purpose Family History [...] FoundDocuments on File Type Date Recorded 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 Expl 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 Advance Directives and Livin g Will 04/22/2020 12:00 AM Advance Directive Response Recorded Date/ Time Name of Medical Power of Geophysical Engineer August 01, 2021 11:27am Advance Directives No June 30, 2020 8:10am Living Will No September 09, 2021 10:57am Power of Geophysical Engineer No September 09 10:57am Latest Code Status on File Code Status Date Activated Date Inactivated Comments Full Code 09/11/2020 12:18 AM Advance Directive Response Recorded Date/ Time Advance Directives No June 30, 2020 8:10am Living Will No September 09, 2021 10:57am Power of Geophysical Engineer No September 09 10:57am Advance Directive Response Recorded Date/ Time Advance Directives No January 18, 2022 1:02pm Living Will No January 18 1:02pm Power of Geophysical Engineer No January 18, 1:02pm Latest Code Status on File Code Status Date Activated Date Inactivated Comments Full Code 09/11/2020 12:18 AM Advance Directive Response Recorded Date/ Time Advance Directives No January 18, 2022 12:02pm Living Will No January 18 12:02pm Power of Geophysical Engineer No January 18 12:02pm Advance Directive Response Recorded Date/ Time Name of Medical Power of Geophysical Engineer emerymitesh blackman tt August 16, 2022 7:29pm Advance Directives No January 18, 2022 1:02pm Living Will No August 16, 2022 7:29pm Power of Geophysical Engineer Yes August 16 7:29pm Advance Directive Response Recorded Date/ Time Advance Directives No January 18, 2022 1:02pm Living Will No August 16, 2022 7:29pm Power of Geophysical Engineer Yes August 16 7:29pm Advance Directive Response Recorded Date/ Time Advance Directives No January 18, 2022 12:02pm Living Will No August 16, 2022 6:29pm Power of Geophysical Engineer Yes August 16 6:29pm Advance Directive Response Recorded Date/ Time Name of Medical Power of Geophysical Engineer SPOUSE May 09, 2023 1:02pm Advance Directives No January 18, 2022 12:02pm Living Will No May 09 1:02pm Power of Geophysical Engineer Yes May 09, 2023 1:02pm Advance Directive Response Recorded Date/ Time Name of Medical Power of Geophysical Engineer SPOUSE May 09, 2023 2:02pm Advance Directives No January 18, 2022 1:02pm Living Will No May 09 2:02pm Power of Geophysical Engineer Yes May 09, 2023 2:02pm Advance Directive Response Recorded Date/ Time Advance Directives No January 18, 2022 12:02pm Living Will No May 09 1:02pm Power of Geophysical Engineer Yes May 09, 2023 1:02pm Date Activated Date Inactivated Comments 09/11/2020 12:18 AM Advance Directive Response Recorded Date/ Time Advance Directives No January 18, 2022 1:02pm Advance Directive Response Recorded Date/ Time Do you have a Healthcare Power of Geophysical Engineer? No November 17, 2024 7:20am Advance Directives No January 18, 2022 1:02pm Advance Directive Response Recorded Date/ Time Living Will No May 09 2:02pm Do you have a Healthcare Power of Geophysical Engineer? Yes May 09, 2023 2:02pm Do you have a Healthcare Power of Geophysical Engineer? No November 17, 2024 7:20am Advance Directives No January 18, 2022 1:02pm Hospital Course Note HNO ID: [id number] Author: Gaurav Gautam MD Service: Hospital Medicine [...] (more content not included)... Note HNO ID: [id number] Author: Manju Cunha Service: ? Author Type: Physician Type: Brief Op Note Filed: 08/15/2019 10:13 AM Note Text: VASCULAR SURGERY BRIEF OPERATIVE NOTE Surgery/Procedure Date: 08/15/2019 Incision/Procedure Start Time: Incision Close/Procedure End Time: Preop Diagnosis (Diagnosis Codes): Pre-Op Diagnosis Codes: * ESRD (end stage renal disease) on dialysis ([facility]) [N18.6, Z99.2] Clotted left arm AV dialysis access with nonfunctioning temporary dialysis access in the left internal jugular Postop Diagnosis: Same Procedure(s): Placement of tunneled dialysis catheter via left internal jugular using exchange technique, 19 cm cuff to tip, 14 Macedonian dual-lumen Primary Surgeon(s): Eber Cunha MD Returned Materials Inspector(s): None Anesthesia: Local Estimated Blood Loss: 20 [...] L brachioaxillary AVG Surgeon: Dr. Foreman Resident/Fellow/Other Returned Materials Inspector: Beny Anesthesia: GETA I.V. Fluids: 250 albumin, 700 NS Estimated Blood Loss (mL): 25 Specimen: no Complications: None Findings: Audible bruit in graft, doppler radial and ulnar artery signals Patient Returned To/Condition: PACU, extubated, stable. Drains and/or Catheters: none Central Line Placement: Central Line Placedno Operative Report Dictated: Dictation: yes Dictation job number: [id number] Signature/Cosignature/Attestation: Note Completion: I am a:Resident/Fellow Attending AttestationI was present for the entire procedure Electronic Signatures: Edd Swan (Resident)) (Signed 19-Oct-2019 09:48) Authored: Post Operative Note, Signature/Cosignature/Attestation Aidan Foreman) (Signed 19-Oct-2019 16:18) Authored: Post Operative Note, Signature/Cosignature/Attestation Co-Signer: Post Operative Note, Signature/Cosignature (more content not included)... 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 Thrill palpable over AVG. L radial pulse palpable. Operative Report Dictated: Dictation: yes Dictation job number: [id number] Signature/Cosignature/Attestation: Note Completion: Attending AttrogerioI performed the procedure without a resident Electronic Signatures: Aidan Foreman) (Signed 24-Jan-2020 15:43) Authored: Post Operative Note, Signature/Cosignature/Attestation Last Updated: 24-Jan-2020 15:43 by Aidan Foreman) Procedure Findings Note Post Operative Note: PreOp D iagnosis: ESRD Post-Procedure Diagnosis: ESRD Procedure: L brachioaxillary AVG Surgeon: Dr. Foreman Resident/Fellow/Other Returned Materials Inspector: Beny Anesthesia: GETA I.V. Fluids: 250 albumin, 700 NS Estimated Blood Loss (mL): 25 Specimen: no Complications: None Findings: Audible bruit in graft, doppler radial and ulnar artery signals Patient Returned To/Condition: PACU, extubated, stable. Drains and/or Catheters: none Central Line Placement: Central Line Placedno Operative Report Dictated: Dictation: yes Dictation job number: [id number] Signature/Cosignature/Attestation: Note Completion: I am a:Resident/Fellow Attending Marvin was present for the entire procedure Electronic Signatures: Edd Swan (Resident)) (Signed 19-Oct-2019 09:48) Authored: Post Operative Note, Signature/Cosignature/Attestation Aidan Foreman) (Signed 19-Oct-2019 16:18) Authored: Post Operative Note, Signature/Cosignature/Attestation Co-Signer: Post Operative Note, Signature/Cosignature (more content not included)... 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 Thrill palpable over AVG. L radial pulse palpable. Operative Report Dictated: Dictation: yes Dictation job number: [id number] Signature/Cosignature/Attestation: Note Completion: Attending AttestationI performed the procedure without a resident Electronic Signatures: Aidan Foreman) (Signed 24-Jan-2020 15:43) Authored: Post Operative Note, Signature/Cosignature/Attestation Last Updated: 24-Jan-2020 15:43 by Aidan Foreman) Note HNO ID: [id number] Author: Manju Cunha Service: ? Author Type: Physician Type: Brief Op Note Filed: 08/15/2019 10:13 AM Note Text: VASCULAR SURGERY BRIEF OPERATIVE NOTE Surgery/Procedure Date: 08/15/2019 Incision/Procedure Start Time: Incision Close/Procedure End Time: Preop Diagnosis (Diagnosis Codes): Pre-Op Diagnosis Codes: * ESRD (end stage renal disease) on dialysis ([facility]) [N18.6, Z99.2] Clotted left arm AV dialysis access with nonfunctioning temporary dialysis access in the left internal jugular Postop Diagnosis: Same Procedure(s): Placement of tunneled dialysis catheter via left internal jugular using exchange technique, 19 cm cuff to tip, 14 Macedonian dual-lumen Primary Surgeon(s): Eber Cunha MD Returned Materials Inspector(s): None Anesthesia: Local Estimated Blood Loss: 20 [...] ORDER Reason for Visit Contact with and (moss spected) exposure to other viral communicable diseases Chief Complaint S/O SCREENING/POST SAUNDRA S/O S/O S/O PRE OP COVID TEST SEE ORDER S/O DVT RULE OUT Reason for Visit Contact with and (moss spected) exposure to other viral communicable diseases Chief Complaint SCREENING/POST SAUNDRA S/O S/O S/O PRE OP COVID TEST SEE ORDER S/O DVT RULE OUT RIGHT SIDED FLANK PAIN Reason for Visit Contact with and (moss spected) exposure to other viral communicable diseases Chief Complaint S/O S/O PRE OP COVID TEST SEE ORDER S/O DVT RULE OUT RIGHT SIDED FLANK PAIN S/O Reason for Visit Contact with and (moss spected) exposure to other viral communicable diseases [...] R10.9 EORDER S/O- ADD LABSPEC,URINE 02-14-23 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 FILLER) PAP Reason for Visit Encounter for routin e gynecological examination Chief Complaint EORDERS S/O- ADD LABSPEC,URINE 02-14-23 R10.9 EORDER S/O- ADD LABSPEC,URINE 02-14-23 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 FILLER) PAP S/O- SCREENING Cysto Litholapaxy with Laser Reason for Visit Encounter for routin e gynecological examination Chief Complaint 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) PAP S/O- SCREENING Cysto Litholapaxy with Laser S/O- Reason for Visit Encounter for routin e gynecological examination Chief Complaint 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 FILLER) PAP S/O- SCREENING Cysto Litholapaxy with Laser S/O- OSTEO Reason for Visit Encounter for routin e gynecological examination Chief Complaint EORDER S/O- ADD LABSPEC,URINE 02-14-23 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) PAP S/O- SCREENING Cysto Litholapaxy with Laser Reason for Visit Encounter for routin e gynecological examination Chief Complaint EORDERS S/O- ADD LABSPEC,URINE 02-14-23 R10.9 EORDER S/O- ADD LABSPEC,URINE 02-14-23 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 FILLER) PAP S/O- SCREENING Reason for Visit Encounter for routin e gynecological examination Chief Complaint Admit Date LABS October 25, 2024 7:06a m Chief Complaint Admit Date LABS October 25, 2024 7:06a m werner November 17, 2024 7:12 am Chief Complaint Admit Date LABS October 25, 2024 7:06a m werner November 17, 2024 7:12 am 2 y fu November 27, 2024 9:17 am Additional Source Comments INFORMATION SOURCE (unrecogn ized section and content) DATE CREATED AUTHOR 08/22/2019 [facility] DATE CREATED AUTHOR AUTHOR'S ORGANIZ ATION 12/29/2019 [facility] DATE CREATED AUTHOR AUTHOR'S ORGANIZ ATION 04/09/2020 [facility] DATE CREATED AUTHOR AUTHOR'S ORGANIZ ATION 04/22/2020 [facility] DATE CREATED AUTHOR AUTHOR'S ORGANIZ ATION 04/23/2020 [facility] DATE CREATED AUTHOR AUTHOR'S ORGANIZ ATION 05/03/2020 [facility] DATE CREATED AUTHOR AUTHOR'S ORGANIZ ATION 06/15/2020 [facility] DATE CREATED AUTHOR AUTHOR'S ORGANIZ ATION 08/27/2021 [facility] DATE CREATED AUTHOR AUTHOR'S ORGANIZ ATION 05/06/2022 [facility] ([place]) DATE CREATED AUTHOR AUTHOR'S ORGANIZ ATION 10/19/2024 [facility] DATE CREATED AUTHOR AUTHOR'S ORGANIZ ATION 12/19/2024 [facility] Goals (unrecognized section and content) Goals may [...] Care Teams (unrecognized sec tion and content) Tray Server Relationship Specialty Start Date End Date Carson Russell MD [address] [place] [address] PCP - General Family Medicine 09/12/20 Junaid Lau MD [address] [place] [address] Nephrology 10/10/20 Krzysztof Wu MD [address] [place] [address] Nephrology 03/09/21 Tray Server Relationship Specialty Start Date End Date Carson Russell MD [address] [place] [address] PCP - General Family Medicine 09/12/20 Junaid Lau MD [address] [place] [address] Nephrology 10/10/20 Krzysztof Wu MD [address] [place] [address] Nephrology 03/09/21 Team Status: Active Member Role [...] Primary Care Provider Active VERITO PACHECO Attending Provider Active Team Status: Active Member Role Status Dates Dr. Carson Russell MD Primary Care Provider, Attending P rovider Active Team Status: Active Member Role Status Dates Dr. Carson Russell MD Primary Care Provider, Other Provi antonio Active VERITO PACHECO Attending Provider, Referring Provider Active Dr. Bunny Richards MD Other Provider Active Dr. Krzysztof uW MD Other Provider Active Team Status: Inactive Member Role Status Dates Dr. Carson Russell MD Primary Care Provider, Attending P rojaiden Active Team Status: Active Member Role Status Dates Dr. Carson Russell MD Primary Care Provider Active Sammi Banda DO Attending Provider, Referring Pr ovider Active Team Status: Inactive Member Role Status Dates Dr. Carson Russell MD Primary Care Provider, Other Provi antonio Active VERITO PACHECO Attending Provider, Referring Provider [...] Russell MD Referring Provider Active Debra Astudillo SKEIN DRIER, SKEIN DRIER-C Attending Provider Active Team Status: Inactive Member Role Status Dates Debra Astudillo SKEIN DRIER, SKEIN DRIER-C Attending Provider Active Team Status: Inactive Member Role Status Dates Dr. Jamie Rhodes MD Attending Provider, Referr ing Provider Active Dr. Carson Russell MD Primary Care Provider Active Team Status: Inactive Member Role Status Dates Debra Astudillo SKEIN DRIER, SKEIN DRIER-C Attending Provider, Referring Provider Active Dr. Carson Russell MD Primary Care Provider Active Team Status: Active Member Role Status Dates Dr. Carson Russell MD Primary Care Provider Active Dr. Krzysztof Wu MD Attending Provider, Re ferring Provider Active Tray Server Relationship Specialty Start Date End Date Carson Russell MD [address] [place] [address] PCP - General Family Medicine 09/12/20 Junaid Lau MD [address] [id number] Nephrology 10/10/20 Krzysztof Wu MD [address] [place] [address] Nephrology 03/09/21 Tray Server Relationship Specialty Start Date End Date Carson Russell MD [address] [place] [address] PCP - General Family Medicine 09/12/20 Junaid Lau MD [address] [place] [address] Nephrology 10/10/20 Krzysztof Wu MD [address] [place] [address] Nephrology 03/09/21 Team Status: Active [...] Care Provider Active Start: October 16, 2024 TARA, PESVIRALNTO Attending Provider Active Start: October 16, 2024 TARA, PESAVENTO Referring Provider Active Start: October 16, 2024 Dr. Krzysztof Wu MD Other Provider Active Start: October 16, 2024 Team Status: Inactive Member Role Status Dates Dr. Carson Russell MD Primary Care Provider Active Start: October 16, 2024 End: October 16, 2024 TARA, PESAVENTO Attending Provider Active Start: October 16, 2024 End: October 16, 2024 TARA, PESAVENTO Referring Provider Active Start: October 16, 2024 End: October 16, 2024 Dr. Krzysztof Wu MD Other Provider Active Start: October 16, 2024 End: October 16, 2024 Team Status: Inactive Member Role Status Dates Dr. Carson Russell MD Primary Care Provider Active Start: October 25, 2024 End: October 25, 2024 TARA, PESAVENTO Attending Provider Active Start: October 25, 2024 End: October 25, 2024 TARA, PESAVENTO Referring Provider Active Start: October 25, 2024 End: October 25, 2024 Team Status: Inactive Member Role Status Dates Dr. Carson Russell MD Primary Care Provider Active Start: November 17, 2024 End: November 17, 2024 Alfonso Clement MD Emergency Provider Active Star t: November 17, 2024 End: November 17, 2024 Team Status: Inactive Member Role Status Dates Dr. Carson Russell MD Primary Care Provider Active Start: November 17, 2024 End: November 17, 2024 Alfonso Clement MD Attending Provider Active Star t: November 17, 2024 End: November 17, 2024 Alfonso Clement MD Emergency Provider Active Star t: November 17, 2024 End: November 17, 2024 Team Status: Inactive Member Role Status Dates Dr. Carson Russell MD Primary Care Provider Active Start: November 27, 2024 End: November 27, 2024 Dr. Carson Russell MD Referring Provider Active St art: November 27, 2024 End: November 27, 2024 Dr. Chinedu Polo MD Attending Provider Active S tart: November 27, 2024 End: November 27, 2024 Care Team (unrecognized sect ion and [...] BE BASED ON THE PRIMARY CLINICAL RECORDS. [facility] Guest of a [facility]. provides no warranty or guarantee of the accuracy or completeness of information in this document.
== END | disposition home or self-care (01) ==
LOC: CVS 06:35
PROVIDERS: PCP Family Medicine; Referring Provider Internal Medicine Cardiovascular Disease; Visit Provider Internal Medicine Cardiovascular Disease
DX: I42.8 Other cardiomyopathies (principal); I10 Essential (primary) hypertension; Z94.0 Kidney transplant status
CPT/HCPCS: 93306

== ENCOUNTER 2025-03-18 07:05 | Outpatient (RCR) | payer MEDICARE, OTHER, SELFPAY ==
[2025-03-18 10:40] LABS: Color, Urine Yellow (Yellow); Glucose, Dipstick Normal (Normal); Ketone-Dipstick Negative (Negative); Leukocyte Esterase-Dipstick Negative /ul (Negative); Nitrite-Dipstick Negative (Negative); Occult Blood-Urine Negative /ul (Negative); Protein-Dipstick Negative (Negative); Specific Gravity, Urine 1.020 (1.002-1.030); Urine Bilirubin Dipstick Negative (Negative)
[2025-03-18 10:47] LABS: Hematocrit 40.1 % (37-47); Hemoglobin 12.8 g/dL (12.0-15.0); Immature Granulocytes Count 0.030 X10^3/uL (0.0-0.0); Mean Corp Hgb Conc 31.9 g/dL (32-36); Mean Corpuscular Volume 91.8 fL (81-99); Mean Platelet Vol. 10.8 fl (6.2-12.0); NRBC Flagged by Analyzer 0 % (0-5); Platelet Count 274 K/mm3 (150-450); RBC Distribution Width CV 13.4 % (11.6-14.6); RBC Distribution Width SD 45.6 fl (35.1-43.9); Red Blood Count 4.37 M/mm3 (4.2-5.4); White Blood Count 7.1 K/mm3 (4.4-11.0)
[2025-03-18 10:49] LABS: Mucous, Urine RARE /hpf (<or=2+); Red Blood Cells-Urine 0-5 SEEN /hpf (0-5)
[2025-03-18 10:50] LABS: Squamous Epithelial Cells - UA 5-10 SEEN /hpf (5-10)
[2025-03-18 10:54] LABS: PTHIN 112 pg/mL (11-61)
[2025-03-18 11:02] LABS: Creatinine, Urine (random) 97.30 mg/dL (28.00-217.00); Microalbumin,Random Urine < 12.0 mg/L (<20 mg/L)
[2025-03-18 11:55] LABS: AST(SGOT) 15 U/L (<=31); Alanine Aminotransfer ALT/SGPT 15 U/L (<=34); Albumin, Serum 3.8 g/dL (3.4-4.8); Alkaline Phosphatase 143 U/L (35-104); Anion Gap 9 (5-15); BUN 18 mg/dL (4-19); BUN/Creat Ratio 13.1 RATIO (10-20); Bilirubin, Direct 0.24 mg/dL (0.00-0.30); Calcium 10.6 mg/dL (7.6-11.0); Calcium,Total 10.6 mg/dL (7.6-11.0); Carbon Dioxide 23.2 mmol/L (21.0-32.0); Chloride 107 mmol/L (98-108); Cholesterol 141 mg/dL (<=200); Globulin 2.4 g/dL (2.2-4.2); Glucose 120 mg/dL (70-99); Low Density Lipoprotein Calc. 51 mg/dL; Magnesium 1.9 mg/dL (1.5-2.2); Potassium 4.2 mmol/L (3.3-5.1); Triglycerides 82 mg/dL; Uric Acid 6.0 mg/dL (2.6-6.0); Very Low Density Lipoprotein 16 mg/dL (5-40); cholesterol:hdl ratio screen 1.92
== END 2025-03-18 18:00 | disposition home or self-care (01) ==
LOC: MTLAB 07:05
PROVIDERS: PCP Family Medicine
DX: E83.42 Hypomagnesemia (principal); Z94.0 Kidney transplant status; M10.9 Gout, unspecified; E55.9 Vitamin D deficiency, unspecified; Z79.899 Other long term (current) drug therapy; Z48.298 Encounter for aftercare following other organ transplant; D84.9 Immunodeficiency, unspecified; R68.89 Other general symptoms and signs; R79.9 Abnormal finding of blood chemistry, unspecified; Z91.89 Other specified personal risk factors, not elsewhere classified
CPT/HCPCS: 36415; 80053; 80061; 80197; 81001; 82043; 82248; 82310; 82570; 83735; 83970; 84100; 84550; 85025

== ENCOUNTER → 2025-05-08 | Outpatient (CLI) | payer MEDICARE, OTHER, SELFPAY ==
[2025-05-13 13:08] LABS: HPV APTIMA, High Risk Negative (Negative)
== END | disposition home or self-care (01) ==
LOC: LABSPEC 10:40
PROVIDERS: PCP Family Medicine; Visit Provider Nurse Practitioner Women's Health
DX: Z12.4 Encounter for screening for malignant neoplasm of cervix (principal); Z94.0 Kidney transplant status
CPT/HCPCS: 87624; 88175; G0145

== ENCOUNTER 2025-06-03 07:31 | Outpatient (RCR) | payer MEDICARE, OTHER, SELFPAY ==
[2025-06-03 10:42] LABS: Hematocrit 39.5 % (37-47); Hemoglobin 13.0 g/dL (12.0-15.0); Mean Corp Hgb Conc 32.9 g/dL (32-36); Mean Corpuscular Volume 90.8 fL (81-99); Mean Platelet Vol. 10.5 fl (6.2-12.0); Platelet Count 283 K/mm3 (150-450); RBC Distribution Width CV 13.2 % (11.6-14.6); RBC Distribution Width SD 43.9 fl (35.1-43.9); Red Blood Count 4.35 M/mm3 (4.2-5.4); White Blood Count 7.6 K/mm3 (4.4-11.0)
[2025-06-03 10:56] LABS: Anion Gap 9 (7-18); BUN 16 mg/dL (4-19); BUN/Creat Ratio 13.9 RATIO (10-20); Calcium 10.5 mg/dL (7.6-11.0); Calcium,Total 10.5 mg/dL (7.6-11.0); Carbon Dioxide 23.5 mmol/L (20.0-29.0); Chloride 110 mmol/L (96-106); Glucose 117 mg/dL (70-99); Magnesium 1.8 mg/dL (1.5-2.2); Potassium 4.0 mmol/L (3.5-5.1)
== END 2025-06-03 18:00 | disposition home or self-care (01) ==
LOC: MTLAB 07:31
PROVIDERS: PCP Family Medicine
DX: E83.42 Hypomagnesemia (principal); Z94.0 Kidney transplant status; M10.9 Gout, unspecified; E55.9 Vitamin D deficiency, unspecified; Z79.899 Other long term (current) drug therapy; Z48.298 Encounter for aftercare following other organ transplant; D84.9 Immunodeficiency, unspecified; R68.89 Other general symptoms and signs; R79.9 Abnormal finding of blood chemistry, unspecified; Z91.89 Other specified personal risk factors, not elsewhere classified
CPT/HCPCS: 36415; 80048; 80197; 82310; 83735; 84100; 85027

== ENCOUNTER → 2025-06-03 | Outpatient (CLI) | payer MEDICARE, OTHER, SELFPAY ==
--- NOTE | 2025-06-03 15:45 | BI_ITS ---
EXAM: SCRN MAMM (CAD)W/HA BILAT DATE: 06/03/2025 CLINICAL HISTORY: F, Age 64 y/o , SCREENING MAMMOGRAM TECHNIQUE: Procedure Code: [id number] Modality: MG Procedure: SCRN MAMM (CAD)W/HA BILAT COMPARISON: Prior exam(s) were compared FINDINGS: TISSUE DENSITY: There are scattered areas of fibroglandular density. Bilateral Breast Mammographic Findings: No significant masses, calcifications or other abnormalities are identified. BI/SCRN MAMM (CAD)W/HA BILAT IMPRESSION: No mammographic evidence of malignancy. OVERALL FINAL ASSESSMENT BI-RADS 1: NEGATIVE. RECOMMENDATION: Routine annual follow-up in 1 Year Additional Recommendation none A letter with findings and recommendations will be mailed to the patient. Reading Location: [id number]
== END | disposition home or self-care (01) ==
LOC: OPBI 15:44
PROVIDERS: PCP Family Medicine; Referring Provider Family Medicine; Visit Provider Family Medicine
DX: Z12.31 Encounter for screening mammogram for malignant neoplasm of breast (principal)
CPT/HCPCS: 77063; 77067